=== PATIENT | female | born 1960 | race Caucasian/White ===

== ENCOUNTER 2020-10-07 22:00 | Inpatient (IN) | payer MEDICARE, SELFPAY ==
--- NOTE | ~2020-10-07 | XR_ITS ---
EXAMINATION: XR ribs LT 2V DATE: 10/10/2020 10:09 INDICATION: Left rib pain. TECHNIQUE: 3 views of the left ribs on 6 radiographs were obtained. COMPARISON: Chest single view 10/07/2020, chest 2 views 06/23/2019 FINDINGS: Sensitivity is decreased by obesity. There is no left-sided pneumothorax. No left rib fract ure. IMPRESSION: 1. No left rib fracture. Sensitivity is decreased by obesity. Reviewed, dictated and finalized at location A. EL HAND
--- NOTE | ~2020-10-07 | XR_ITS ---
XR chest 1V portable DATE: 10/07/2020 23:03 INDICATION: Shortness of breath and cough for 2 days TECHNIQUE: Portable AP chest on 10/07/2020 2302 hours COMPARISON: 06/23/2019 portable AP chest FINDINGS: Examination is limited due to body habitus, portable technique and rotation. There is cardiomegaly. There is pulmonary vascular congestion and redistribution. The minor fissure a ppears prominent. Presently central pulmonary infiltrates, right greater than left, suggesting pulmon valentin edema. The findings suggest congestive heart failure. Osteoarthritic changes noted at the glenohumeral joints. IMPRESSION: Congestive heart failure Reviewed, dictated and finalized at location A. FARM HELPER IMPRESSION: Congestive heart failure
[2020-10-07 22:20] VITALS: BP 140/60; PULSE 67; RESP 18; O2SAT 96
--- NOTE | 2020-10-07 22:26 | ECG_ITS ---
Measurements Intervals [place] Rate: 72 P: AL: 0 QRS: 43 QRSD: 104 T: 50 QT: 388 QTc: 427 Interpretive Statements ATRIAL FIBRILLATION CHANGES TO SINUS RHYTHM ATRIAL PREMATURE COMPLEX INCOMPLETE RIGHT BUNDLE BRANCH BLOCK BASELINE ARTIFACT- I, II, III, AVF ABNORMAL ECG Electronically Signed On 10-08-2020 6:29:00 ASSISTANT PROFESSOR OF EDUCATION by Simon Lozano D.O.
[2020-10-07 22:42] VITALS: PULSE 74; RESP 18; O2SAT 100
[2020-10-07] MEDS: IPRATROPIUM 0.5 MG/ALBUTEROL SULFATE 2.5 MG AMPUL.NEB 3 ML INHALATION (22:47)
[2020-10-07 22:53] VITALS: PULSE 73; RESP 18; O2SAT 100
[2020-10-07 22:56] VITALS: BP 150/65; PULSE 68; RESP 20; O2SAT 96
[2020-10-07] MEDS: methylPREDNISolone SOD SUCC 125 MG VIAL IV PUSH (22:58)
[2020-10-07 23:10] LABS: Base Excess ABG 2.5 mmol/L (0-2); HCO3 ABG 28.2 mmol/L (23-29); Oxygen Content ABG 13.2 %vol (16.0-22.0); Oxyhemoglobin 93.9 % (94-100); PCO2 ABG 49.5 mmHg (35-45); PO2 ABG 85.2 mmHg (80-90); Total Hemoglobin 9.9 g/dL; pH ABG 7.37 (7.35-7.45)
[2020-10-07 23:16] LABS: Basophils Absolute Auto 0.01 K/mm3 (0.00-0.10); Basophils Percent Auto 0.2 % (0.0-1.0); Hematocrit 30.3 % (35.0-49.0); Hemoglobin 8.9 g/dL (12.0-15.0); Immature Granulocyte Absolute 0.03 K/mm3 (0.00-0.00); Immature Granulocyte Percent A 0.5 % (0.0-0.0); Lymphocytes Absolute Auto 0.31 K/mm3 (1.10-4.50); Lymphocytes Percent Auto 4.8 % (18.0-42.0); Mean Corpuscular HGB Conc 29.4 g/dL (32.0-36.0); Mean Corpuscular Hemoglobin 25.4 pg (27.0-31.0); Mean Corpuscular Volume 86.3 fL (78.0-102.0); Mean Platelet Volume 10.9 fl (9.2-11.8); Monocytes Absolute Auto 0.34 K/mm3 (0.10-0.90); Monocytes Percent Auto 5.3 % (2.0-11.0); Neutrophils Absolute Auto 5.7 K/mm3 (1.7-7.2); Neutrophils Percent Auto 89.2 % (50.0-70.0); Platelet Count Result 158 K/mm3 (150-420); Red Blood Count 3.51 M/mm3 (4.20-5.40); Red Cell Distribution Width 14.7 % (11.6-14.4); White Blood Count 6.4 K/mm3 (4.8-10.8)
[2020-10-07 23:26] LABS: Device NASAL CANNULA; Modified Allen's Test Pass; Site Drawn RIGHT RADIAL
[2020-10-07 23:31] LABS: D Dimer 0.49 mg/L (0.19-0.50); INR 0.9; Partial Thromboplastin Time 25.3 SEC (23.90-30.70); Prothrombin Time 10.3 Seconds (9.50-12.10)
[2020-10-07 23:33] LABS: Albumin Level 3.5 g/dL (3.4-5.0); Alkaline Phosphatase 102 U/L (46-116); Anion Gap 6 mmol/L (8-16); Aspartate Amino Transferase 11 U/L (15-37); Bilirubin,Total 0.3 mg/dL (0.00-1.00); Blood Urea Nitrogen 15 mg/dL (7-18); Calcium 8.1 mg/dL (8.5-10.1); Carbon Dioxide 33 mmol/L (21-32); Chloride 99 mmol/L (98-108); Estimated CRCL calculation 85 ml/min; Estimated Glomerular Filt Rate 38; Glucose 113 mg/dL (70-99); Osmolality Calculated 287 mOsm/kg (285-295); Potassium 3.6 mmol/L (3.5-5.1); Sodium 138 mmol/L (136-145); Total Protein 7.3 g/dL (6.4-8.2); Troponin I 14.4 ng/L (0.00-60.4)
[2020-10-07 23:36] LABS: BNP 91.4 pg/mL (0-100); Lactic Acid Reflex 0.4 mmol/L (0.4-2.0)
[2020-10-07 23:41] LABS: Influenza Control Valid (Valid); SARS-CoV-2 Ag Negative (Negative)
[2020-10-07 23:44] LABS: Alanine Aminotransferase < 6 U/L (14-59)
--- NOTE | 2020-10-07 23:56 | ED.SOB ---
HPI - SOB/Dyspnea General Chief Complaint: Shortness of Breath/Dyspnea Stated Complaint: AMB Source: patient and EMS Limitations: no limitations History of Present Illness HPI Narrative: this is a 60-year-old female presents with some shortness of breath over the last 4 days and worsening over the last 2 to 3 hours with a cough that is nonproductive, does have a history of COPD and history of some AFib. Patient is morbidly obese no sick contacts lives at home with her has chills no fevers. Currently have some some chest tightness with her shortness of breath with no radiation of her pain no nausea vomiting no abdominal pain no dysuria no headaches no blurry vision. MD elicited complaint: shortness of breath and cough Pertinent past history: COPD and congestive heart failure Onset (ago): hour(s) Context: anxiety Severity: moderate Exacerbating factors: nothing Relieving factors: oxygen Known history of: COPD Related Data Home Medications Medication Instructions Recorded Confirmed diltiazem HCl [DILT-XR] See Rx Instructions .ROUTE .COMPLEX 10/07/20 10/07/20 gabapentin [Neurontin] See Rx Instructions .ROUTE .COMPLEX 10/07/20 10/07/20 olanzapine [Zyprexa] 10 mg PO DAILY 10/07/20 10/07/20 oxcarbazepine [Trileptal] 150 mg PO DAILY 10/07/20 10/07/20 oxybutynin chloride [Ditropan XL] See Rx Instructions .ROUTE .COMPLEX 10/07/20 10/07/20 quetiapine [Seroquel] See Rx Instructions .ROUTE .COMPLEX 10/07/20 10/07/20 rivaroxaban [Xarelto] 10 mg PO DAILY 10/07/20 10/07/20 sertraline [Zoloft] 100 mg PO DAILY 10/07/20 10/07/20 trazodone See Rx Instructions .ROUTE .COMPLEX 10/07/20 10/07/20 Allergies Allergy/AdvReac Type Severity Reaction Status Date / Time No Known Allergies Allergy Verified 10/07/20 22:29 Review of Systems Review of Systems: All systems reviewed & are unremarkable except as noted in HPI and below PMFSH Past Medical History Medical History Afib COPD (chronic obstructive pulmonary disease) HTN (hypertension) Social History Social History Gender identity (if verbalized by the patient): Female Exam Const: General: no acute distress and alert Orientation/consciousness: patient oriented x3 HENMT: Head: normal to inspection Eyes: Conjunctivae: conjunctivae normal Pupils: Equal, round and reactive pupils present Neck: Neck: normal visual inspection, no lymphadenopathy and no meningeal signs Chest: Chest palpation & inspection: normal inspection of the chest Resp: Effort & Inspection: normal respiratory effort Auscultation: diminished lung sounds Cardio: Rate: regular rate Rhythm: regular rhythm GI: GI Palp: Yes Soft to palpation : General: Yes no CVA tenderness Back/Spine/Pelvis: Back: no CVA tenderness Skin: General skin exam: normal color Rashes: no rashes Neuro: General: patient oriented x3 and moves all extremities Extrem: General: normal to inspection and no pedal edema Psych: Mental Status: mental status grossly normal Course Course Emergency Course: patient breathing has improved with nebulizer treatment and IV steroids, reviewed the x-ray and lab findings with patient and will admit patient to the floor with telemetry. Vital Signs Vital signs: Vital Signs Pulse Rate 67 10/07/20 22:20 Respiratory Rate 18 10/07/20 22:20 Blood Pressure 140/60 10/07/20 22:20 Pulse Oximetry 96 10/07/20 22:20 Pulse Rate 68 10/07/20 22:56 Respiratory Rate 20 10/07/20 22:56 Blood Pressure 150/65 H 10/07/20 22:56 Pulse Oximetry 96 10/07/20 22:56 MDM - SOB/Dyspnea Lab Data Result diagrams: 10/07/20 23:11 10/07/20 23:11 Labs: Lab Results 10/07/20 10/07/20 10/07/20 Range/Units 23:11 23:11 23:11 WBC (4.8-10.8) K/mm3 RBC (4.20-5.40) M/mm3 Hgb (12.0-15.0) g/dL Hct (35.0-49.0) % MCV (78.0
[2020-10-08] VITALS (12 sets, daily range): BP systolic 134–167; BP diastolic 50–68; PULSE 60–88; RESP 16–22; TEMP 36–36.6; O2SAT 96–99; BMI 69.4
--- NOTE | 2020-10-08 00:43 | PC.NURSE ---
spouse notified of admission
--- NOTE | 2020-10-08 01:30 | ADMGEN ---
This patient, Cathy Greene, was admitted to 2nd Floor Room 227-2. Patient/family oriented to hospital policies and general routines including ID bracelet, bed and alarms, visiting hours, pain management, procedures, bathroom and other care routines, personal items, smoking policy, room service/diet, and visiting hours. Information on how to activate the Rapid Response Team has been discussed. Patient/Family are encouraged to report perceived risks to care and to ask questions if they do not understand what they are told or what they should do.
[2020-10-08] MEDS: IPRATROPIUM 0.5 MG/ALBUTEROL SULFATE 2.5 MG AMPUL.NEB 3 ML INHALATION (05:41)
[2020-10-08 05:52] LABS: Hematocrit 28.8 % (35.0-49.0); Hemoglobin 8.4 g/dL (12.0-15.0); Immature Granulocyte Absolute 0.02 K/mm3 (0.00-0.00); Immature Granulocyte Percent A 0.4 % (0.0-0.0); Lymphocytes Absolute Auto 0.17 K/mm3 (1.10-4.50); Mean Corpuscular HGB Conc 29.2 g/dL (32.0-36.0); Mean Corpuscular Hemoglobin 24.8 pg (27.0-31.0); Mean Platelet Volume 10.6 fl (9.2-11.8); Monocytes Absolute Auto 0.03 K/mm3 (0.10-0.90); Monocytes Percent Auto 0.5 % (2.0-11.0); Neutrophils Absolute Auto 5.4 K/mm3 (1.7-7.2); Neutrophils Percent Auto 96.1 % (50.0-70.0); Platelet Count Result 143 K/mm3 (150-420); Red Blood Count 3.39 M/mm3 (4.20-5.40); Red Cell Distribution Width 14.4 % (11.6-14.4); White Blood Count 5.6 K/mm3 (4.8-10.8)
[2020-10-08] MEDS: methylPREDNISolone SOD SUCC 40 MG VIAL IV PUSH ×3 (06:07→18:33)
--- NOTE | 2020-10-08 06:08 | PC.NURSE ---
Given arlette crackers and milk
[2020-10-08 06:10] LABS: Alanine Aminotransferase 10 U/L (14-59); Albumin Level 3.3 g/dL (3.4-5.0); Alkaline Phosphatase 100 U/L (46-116); Anion Gap 8 mmol/L (8-16); Aspartate Amino Transferase < 10 U/L (15-37); Bilirubin,Total 0.2 mg/dL (0.00-1.00); Blood Urea Nitrogen 16 mg/dL (7-18); Calcium 8.3 mg/dL (8.5-10.1); Carbon Dioxide 30 mmol/L (21-32); Chloride 100 mmol/L (98-108); Estimated CRCL calculation 77 ml/min; Estimated Glomerular Filt Rate 43; Glucose 163 mg/dL (70-99); Osmolality Calculated 291 mOsm/kg (285-295); Potassium 4.1 mmol/L (3.5-5.1); Sodium 138 mmol/L (136-145); Total Protein 7.1 g/dL (6.4-8.2)
--- NOTE | 2020-10-08 07:00 | ECHOL_ITS ---
Patient Info Name: Cathy Greene Age: 60 years : 1960 Gender: Female Ht: 67 in Wt: 443 lbs BSA: 3.22 m2 HR: 69 bpm BP: 148 / 60 mmHg Technical Quality: Poor Exam Date: 10/08/2020 1:42 PM Exam Location: [facility] Patient Status: Inpatient Admit Date: 10/08/2020 Staff Ordering Physician: Anastacio Amin MD Extrusion Manager: Alaina Caballero RDCS Attending Provider: Anastacio Amin MD Referring Physician: Brennan LOCKE; Exam Type: CA echo limited Study Info Indications I50.9 - Heart failure, unspecified Limited two-dimensional transthoracic echocardiogram is performed. Reason for Poor Study: patient body habitus History/Risk Factors Hypertension: Yes Obesity: Yes Congestive Heart Failure (CHF): Hx CHF Diabetes Mellitus: No COPD: On Meds Tobacco Use: Current - Every Day If Any Current, Tobacco Type: Cigarettes If Current - Every Day \T\ Cigarettes, Amount: Light Tobacco Use (<10/day) DVT Treatment: Rivaroxaban Deep Vein Thrombosis (DVT): None Summary 1. No subcostal images as patient was uncooperative and due to body habitus. 2. Left ventricular chamber dimension is normal. 3. Left ventricular systolic function is normal, estimated at 60-65%. 4. There is mildly increased left ventricular wall thickness. 5. The left ventricular diastolic function is abnormal. 6. E/e' 10 is mildly elevated. 7. Left atrial chamber dimension is moderately enlarged. Recommendations * Smoking cessation counseling is recommended for this patient. Left Ventricle No subcostal images as patient was uncooperative and due to body habitus. E/e' 10 is mildly elevated. Left ventricular chamber dimension is normal. Left ventricular systolic function is normal, estimated at 60-65%. There is mildly increased left ventricular wall thickness. The left ventricular diastolic function is abnormal. Right Ventricle Right ventricular chamber dimension is normal. Right ventricular systolic function is normal. Left Atria Left atrial chamber dimension is moderately enlarged. Right Atria Right atrial chamber dimension is normal. Aortic Valve The aortic valve is trileaflet. There is no aortic valve stenosis. There is no aortic valve regurgitation. Pulmonic Valve There is no pulmonic regurgitation. Mitral Valve There is no mitral valve stenosis. There is no mitral valve regurgitation. Tricuspid Valve There is no tricuspid valve regurgitation. Pericardium/Pleural There is no pericardial effusion. Inferior Vena Cava Inferior vena cava is not well visualized. Aorta The aortic root size at the sinus of Valsalva is normal. Left Ventricular Outflow Tract Name Value Normal LVOT 2D LVOT Diameter 2.0 cm LVOT Doppler LVOT Peak Velocity 144 cm/s LVOT Peak Gradient 8 mmHg LVOT Mean Gradient 5 mmHg LVOT VTI 29 cm LVOT VTI/AV VTI Ratio 1.0 LVOT Stroke Volume 92 ml Mitral Valve
[2020-10-08] MEDS: GABAPENTIN 300 MG CAPSULE PO ×3 (09:25→18:33)
[2020-10-08] MEDS: SERTRALINE HCL 50 MG TABLET 100 MG PO (09:26)
[2020-10-08] MEDS: OXcarbazepine 300 MG TABLET 150 MG PO (09:26)
[2020-10-08] MEDS: RIVAROXABAN 10 MG TABLET PO (09:26)
[2020-10-08] MEDS: dilTIAZem HCL CD 180 MG CAP.ER.24H BY MOUTH (09:26)
--- NOTE | 2020-10-08 11:03 | PC.NURSE ---
Message left with Cresencio Wound Care nurse regarding wound care consultation.
--- NOTE | 2020-10-08 12:03 | PM.IMHP ---
H&P: HPI History of Present Illness Date/Time: 10/08/20 12:03 Chief Complaint: Shortness of breath Narrative: Cathy Greene is a 60 year old female that presented to the ED with complaints of shortness of breath and chest tightness that she has had for approximately 1 week. Patient has a past medical history of A. fib, COPD and hypertension. Patient noted that she was at home she attempted to use her inhalers which did not improve her condition. She also complained of having diarrhea, headache and rib pain while at home. she is a current smoker. She also complains of nonproductive cough. Patient also has an ulcer to her abdominal pannis . According to patient she has had this ulcer for approximately 1 year. She notes that she would need an panniculectomy in order for the ulcer to heal. Patient also arrived to our facility with head lice, bedbugs and old feces to her feet. Patient noted that she has attempted to remove the bedbugs from her at home with pesticide from store which was unsuccessful. Patient also has a history of suicidal attempt and ideations. Back in 2018 patient attempted to commit suicide by taking multiple medication. Today patient denies any suicidal homicidal ideations auditory or visual hallucinations. Today patient's complaints are she is fatigued, headache and continues to have shortness of breath. The patient denies CP, palpitation, extremity numbness, lightheadedness, dizziness, constipation, diarrhea, chills, or fever. Review of Systems Review of Systems: All systems reviewed & are unremarkable except as noted in HPI and below (10 point system review) [facility] Past Medical History Medical History (Updated 10/08/20 @ 12:31 by CECILY Jensen) Afib COPD (chronic obstructive pulmonary disease) HTN (hypertension) Social History Social History Smoking packs per day: 0.5 Smoking cigarettes per day: 10.0 Years smoked: 10 Smoking pack-years: 5.00 Smoking status: Light tobacco smoker Tobacco type: cigarettes Alcohol intake: never Substance use: former Substance use type: marijuana Gender identity (if verbalized by the patient): Female Sexual Orientation (if Verbalized by the Patient): Straight or Heterosexual Spiritual care concerns: No Meds Home Medications and Allergies Home Medications Medication Instructions Recorded Confirmed Type diltiazem HCl [DILT-XR] See Rx Instructions .ROUTE .COMPLEX 10/07/20 10/07/20 History gabapentin [Neurontin] See Rx Instructions .ROUTE .COMPLEX 10/07/20 10/07/20 History olanzapine [Zyprexa] 10 mg PO DAILY 10/07/20 10/07/20 History oxcarbazepine [Trileptal] 150 mg PO DAILY 10/07/20 10/07/20 History oxybutynin chloride [Ditropan XL] See Rx Instructions .ROUTE .COMPLEX 10/07/20 10/07/20 History quetiapine [Seroquel] See Rx Instructions .ROUTE .COMPLEX 10/07/20 10/07/20 History rivaroxaban [Xarelto] 10 mg PO DAILY 10/07/20 10/07/20 History sertraline [Zoloft] 100 mg PO DAILY 10/07/20 10/07/20 History trazodone See Rx Instructions .ROUTE .COMPLEX 10/07/20 10/07/20 History Allergies Allergy/AdvReac Type Severity Reaction Status Date / Time No Known Allergies Allergy Verified 10/07/20 22:29 Vital Signs Vital Signs - 24 hr 10/07/20 22:20 10/07/20 22:42 10/07/20 22:53 Temperature Pulse Rate 67 74 73 Respiratory Rate 18 18 18 Blood Pressure 140/60 Pulse Oximetry 96 100 100 10/07/20 22:56 10/08/20 01:30 10/08/20 01:42 Temperature 98 F Pulse Rate 68 69 88 Respiratory Rate 20 20 16 Blood Pressure 150/65 H 134/60 Pulse Oximetry 96 97 98 10/08/20 03:45 10/08/20 04:00 10/08/20 05:35 Temperature 97.8 F Pulse Rate 69 68 60 Respiratory Rate 20 20 Blood Pressure 148/60 H Pulse Oximetry 98 96 10/08/20 05:51 10/08/20 07:45 Temperature 97.1 F L Pulse Rate 64 65 Respiratory Rate 20 22 H Blood Pressure 167/68 H Pulse Oximetry 99 97 Exam Narr
[2020-10-08] MEDS: amLODIPine BESYLATE 5 MG TABLET PO (14:53)
[2020-10-08] MEDS: BENZONATATE 100 MG CAPSULE 200 MG PO ×2 (14:53→18:33)
[2020-10-08] MEDS: ALBUTEROL SULFATE (*SP) INHALER 2 PUFF INHALATION ×2 (14:54→20:01)
[2020-10-08] MEDS: ACETAMINOPHEN 325 MG TABLET 650 MG PO (17:09)
[2020-10-08] MEDS: MUPIROCIN 2% OINT 22 GM TUBE 1 APPLIC TOPICAL (18:33)
[2020-10-08] MEDS: BUDESONIDE/FORMOTEROL (*SP) 160-4.5 MCG 6 GM INH 2 PUFF INHALATION (18:33)
[2020-10-08] MEDS: TOLNAFTATE 1% POWDER 45 GM BTL 1 APPLIC TOPICAL (18:33)
[2020-10-08] MEDS: HYDROcodone/acetaminophen (*CRX) 5-325 MG TABLET 1 TAB PO (19:46)
[2020-10-08] MEDS: traZODone HCL 50 MG TABLET PO (20:55)
[2020-10-08] MEDS: QUEtiapine FUMARATE 25 MG TABLET PO (20:55)
[2020-10-09] VITALS: BP 148/65; PULSE 74; RESP 20; TEMP 36.6; O2SAT 96
[2020-10-09] MEDS: methylPREDNISolone SOD SUCC 40 MG VIAL IV PUSH ×2 (00:02→05:53)
[2020-10-09 04:00] VITALS: BP 154/75; PULSE 80; RESP 22; TEMP 36.1; O2SAT 97
[2020-10-09] MEDS: BENZONATATE 100 MG CAPSULE 200 MG PO ×3 (04:38→17:03)
[2020-10-09 05:46] LABS: Hematocrit 29.6 % (35.0-49.0); Hemoglobin 8.5 g/dL (12.0-15.0); Immature Platelet Fraction Pct 3.2 % (1.0-7.0); Mean Corpuscular HGB Conc 28.7 g/dL (32.0-36.0); Mean Corpuscular Hemoglobin 25.1 pg (27.0-31.0); Mean Corpuscular Volume 87.3 fL (78.0-102.0); Mean Platelet Volume 11.2 fl (9.2-11.8); Platelet Count Result 141 K/mm3 (150-420); Red Blood Count 3.39 M/mm3 (4.20-5.40); Red Cell Distribution Width 14.6 % (11.6-14.4); White Blood Count 6.5 K/mm3 (4.8-10.8)
[2020-10-09] MEDS: BUDESONIDE/FORMOTEROL (*SP) 160-4.5 MCG 6 GM INH 2 PUFF INHALATION ×2 (05:53→17:58)
[2020-10-09] MEDS: ALBUTEROL SULFATE (*SP) INHALER 2 PUFF INHALATION ×4 (05:53→20:00)
[2020-10-09 06:06] LABS: Alanine Aminotransferase 13 U/L (14-59); Albumin Level 3.4 g/dL (3.4-5.0); Alkaline Phosphatase 87 U/L (46-116); Anion Gap 3 mmol/L (8-16); Aspartate Amino Transferase < 10 U/L (15-37); Bilirubin,Total 0.2 mg/dL (0.00-1.00); Blood Urea Nitrogen 24 mg/dL (7-18); Calcium 8.4 mg/dL (8.5-10.1); Carbon Dioxide 34 mmol/L (21-32); Chloride 102 mmol/L (98-108); Estimated CRCL calculation 74 ml/min; Estimated Glomerular Filt Rate 41; Glucose 177 mg/dL (70-99); Osmolality Calculated 296 mOsm/kg (285-295); Potassium 4.5 mmol/L (3.5-5.1); Sodium 139 mmol/L (136-145); Total Protein 7.3 g/dL (6.4-8.2)
[2020-10-09 07:40] VITALS: BP 160/58; PULSE 75; RESP 20; TEMP 36.2; O2SAT 96
[2020-10-09] MEDS: GABAPENTIN 300 MG CAPSULE PO ×3 (09:10→17:03)
[2020-10-09] MEDS: SERTRALINE HCL 50 MG TABLET 100 MG PO (09:11)
[2020-10-09] MEDS: dilTIAZem HCL CD 180 MG CAP.ER.24H BY MOUTH (09:11)
[2020-10-09] MEDS: RIVAROXABAN 10 MG TABLET PO (09:11)
[2020-10-09] MEDS: amLODIPine BESYLATE 5 MG TABLET PO (09:12)
[2020-10-09] MEDS: MUPIROCIN 2% OINT 22 GM TUBE 1 APPLIC TOPICAL ×2 (09:13→17:04)
[2020-10-09] MEDS: NICOTINE (*PBKC) 21 MG PATCH 1 PATCH TRANSDERM (09:13)
[2020-10-09] MEDS: OXcarbazepine 300 MG TABLET 150 MG PO (09:13)
[2020-10-09] MEDS: TOLNAFTATE 1% POWDER 45 GM BTL 1 APPLIC TOPICAL ×2 (09:14→17:04)
--- NOTE | 2020-10-09 12:21 | P.PN_ITS ---
Progress Note: A&P Assessment and Plan (1) Acute exacerbation of chronic obstructive airways disease: Code(s): J44.1 - Chronic obstructive pulmonary disease with (acute) exacerbation <Damaris Navarro IAMJose Raul - Last Filed: 10/09/20 14:33> Status: Acute <Damaris Navarro IAMJose Raul - Last Filed: 10/09/20 14:33> Assessment and Plan: * Continue prednisone with inhalers * Continue supplementary oxygen as needed * Vital signs * Covid rapid negative send out pending <Damaris Navarro ZINC CHLORIDE OPERATORLakhwinderJose Raul - Last Filed: 10/09/20 14:33> (2) Afib: Code(s): I48.91 - Unspecified atrial fibrillation <Damaris Navarro IAMJose Raul - Last Filed: 10/09/20 14:33> Status: Acute <Damaris Navarro ZINC CHLORIDE OPERATORLakhwinderJose Raul - Last Filed: 10/09/20 14:33> Assessment and Plan: * Controlled * Continue Cardizem 180 mg daily * Continue Xarelto * Continue telemetry <Damaris Navarro CECILY - Last Filed: 10/09/20 14:33> (3) HTN (hypertension): Code(s): I10 - Essential (primary) hypertension <Damaris Navarro IAMJose Raul - Last Filed: 10/09/20 14:33> Status: Acute <Damaris Navarro CECILY - Last Filed: 10/09/20 14:33> Assessment and Plan: * Blood pressure remains elevated * Increased Norvasc 10 mg * Will adjust medication as needed * Vital signs as ordered <Damaris Navarro TRAEOwen - Last Filed: 10/09/20 14:33> (4) Head lice: Code(s): B85.0 - Pediculosis due to Pediculus humanus capitis <Damaris FloresBrayan Navarro ZINC CHLORIDE OPERATOR-C - Last Filed: 10/09/20 14:33> Status: Acute <Damaris Navarro ZINC CHLORIDE OPERATORLakhwinderJose Raul - Last Filed: 10/09/20 14:33> Assessment and Plan: * Will prescribe medication <Damaris FloresCECILY Barbosa - Last Filed: 10/09/20 14:33> (5) Bedbug bite: Code(s): W57.XXXA - Bitten or stung by nonvenomous insect and other nonvenomous arthropods, initial encounter <CECILY Jensen - Last Filed: 10/09/20 14:33> Status: Acute <CECILY Jensen - Last Filed: 10/09/20 14:33> Assessment and Plan: * Case coordination consulted for possible speech language pathology assistant with bedbugs and aging to part <CECILY Jensen - Last Filed: 10/09/20 14:33> (6) Nicotine dependence: Code(s): F17.200 - Nicotine dependence, unspecified, uncomplicated <CECILY Jensen - Last Filed: 10/09/20 14:33> Status: Acute <CECILY Jensen - Last Filed: 10/09/20 14:33> Assessment and Plan: * Ordered nicotine patch * Educated on smoking cessation <CECILY Jensen - Last Filed: 10/09/20 14:33> (7) COVID-19 ruled out: Code(s): Z20.822 - Contact with and (suspected) exposure to COVID-19 <CECILY Jensen - Last Filed: 10/09/20 14:33> Status: Acute <CECILY Jensen - Last Filed: 10/09/20 14:33> Assessment and Plan: * Rapid test negative * Collect a send out to rule out Covid * Remain quarantine until results are returned * Continue steroids <CECILY Jensen - Last Filed: 10/09/20 14:33> (8) Ulcer: Status: Acute <CECILY Jensen - Last Filed: 10/09/20 14:33> Assessment and Plan: * Consulted wound care * Dressing changes recommended by wound care <CECILY Jensen - Last Filed: 10/09/20 14:33> (9) New onset of congestive heart failure: Code(s): I50.9 - Heart failure, unspecified <CECILY Jensen - Last Filed: 10/09/20 14:33> Status: Acute <CECILY Jensen - Last Filed: 10/09/20 14:33> Assessment and Plan: . * C
--- NOTE | 2020-10-09 12:21 | WPDPN ---
Progress Note: A&P Assessment and Plan (1) Acute exacerbation of chronic obstructive airways disease: Code(s): J44.1 - Chronic obstructive pulmonary disease with (acute) exacerbation <Damaris Navarro CECILY - Last Filed: 10/09/20 14:33> Status: Acute <Damaris Navarro CECILY - Last Filed: 10/09/20 14:33> Assessment and Plan: Continue prednisone with inhalers Continue supplementary oxygen as needed Vital signs Covid rapid negative send out pending <Damaris Navarro CECILY - Last Filed: 10/09/20 14:33> (2) Afib: Code(s): I48.91 - Unspecified atrial fibrillation <Damaris Navarro CECILY - Last Filed: 10/09/20 14:33> Status: Acute <Damaris Navarro CECILY - Last Filed: 10/09/20 14:33> Assessment and Plan: Controlled Continue Cardizem 180 mg daily Continue Xarelto Continue telemetry <Damaris Navarro CECILY - Last Filed: 10/09/20 14:33> (3) HTN (hypertension): Code(s): I10 - Essential (primary) hypertension <Damaris Navarro CECILY - Last Filed: 10/09/20 14:33> Status: Acute <Damaris Navarro CECILY - Last Filed: 10/09/20 14:33> Assessment and Plan: Blood pressure remains elevated Increased Norvasc 10 mg Will adjust medication as needed Vital signs as ordered <Damaris Navarro CECILY - Last Filed: 10/09/20 14:33> (4) Head lice: Code(s): B85.0 - Pediculosis due to Pediculus humanus capitis <Damaris Navarro IAMJose Raul - Last Filed: 10/09/20 14:33> Status: Acute <Damaris Navarro CECILY - Last Filed: 10/09/20 14:33> Assessment and Plan: Will prescribe medication <Damaris FloresBrayan Ramon INFORMATION TECHNOLOGY SECURITY MANAGERLakhwinderJose Raul - Last Filed: 10/09/20 14:33> (5) Bedbug bite: Code(s): W57.XXXA - Bitten or stung by nonvenomous insect and other nonvenomous arthropods, initial encounter <CECILY Jensen - Last Filed: 10/09/20 14:33> Status: Acute <CECILY Jensen - Last Filed: 10/09/20 14:33> Assessment and Plan: Case coordination consulted for possible volleyball assistant coach with bedbugs and aging to part <CECILY Jensen - Last Filed: 10/09/20 14:33> (6) Nicotine dependence: Code(s): F17.200 - Nicotine dependence, unspecified, uncomplicated <CECILY Jensen - Last Filed: 10/09/20 14:33> Status: Acute <CECILY Jensen - Last Filed: 10/09/20 14:33> Assessment and Plan: Ordered nicotine patch Educated on smoking cessation <CECILY Jensen - Last Filed: 10/09/20 14:33> (7) COVID-19 ruled out: Code(s): Z20.822 - Contact with and (suspected) exposure to COVID-19 <CECILY Jensen - Last Filed: 10/09/20 14:33> Status: Acute <CECILY Jensen - Last Filed: 10/09/20 14:33> Assessment and Plan: Rapid test negative Collect a send out to rule out Covid Remain quarantine until results are returned Continue steroids <CECILY Jensen - Last Filed: 10/09/20 14:33> (8) Ulcer: Status: Acute <CECILY Jensen - Last Filed: 10/09/20 14:33> Assessment and Plan: Consulted wound care Dressing changes recommended by wound care <CECILY Jensen - Last Filed: 10/09/20 14:33> (9) New onset of congestive heart failure: Code(s): I50.9 - Heart failure, unspecified <CECILY Jensen - Last Filed: 10/09/20 14:33> Status: Acute <CECILY Jensen - Last Filed: 10/09/20 14:33> Assessment and Plan: . CHF indicates abnormal left ventricle diastolic function Will start patient on Lasix 20 daily loading dose of 40 BNP within normal Will weigh daily <CECILY Jensen - Last Filed: 10/09/20 14:33> Review of Systems Review of Systems: All systems reviewed & are unremarkable except as noted in HPI and below (10 point system review) <CECILY Jensen - [place]
[2020-10-09] MEDS: guaiFENesin/DEXTROMETHORPHAN 5 ML UDC PO ×2 (13:08→20:00)
[2020-10-09 13:10] VITALS: BP 166/62; PULSE 79; RESP 22; TEMP 36.2; O2SAT 97
[2020-10-09] MEDS: FUROSEMIDE INJ 40 MG/4 ML VIAL IV PUSH (13:12)
--- NOTE | 2020-10-09 13:32 | ECG_ITS ---
Measurements Intervals [place] Rate: 71 P: 84 [place]: 157 QRS: 60 QRSD: 105 T: 58 QT: 383 QTc: 419 Interpretive Statements SINUS RHYTHM INCOMPLETE RIGHT BUNDLE BRANCH BLOCK BORDERLINE ECG Electronically Signed On 10-09-2020 14:09:47 SENIOR ACCOUNT MANAGER by Simon Lozano D.O.
--- NOTE | 2020-10-09 13:59 | PCOTNOTE ---
OT attempted evaluation however nursing reports that patient is having chest pains. Will check in at a later time. MS
[2020-10-09 14:05] LABS: SARS-CoV-2 RNA PCR Negative
[2020-10-09] MEDS: HYDROcodone/acetaminophen (*CRX) 5-325 MG TABLET 1 TAB PO ×2 (14:26→22:57)
[2020-10-09] MEDS: PANTOPRAZOLE 40 MG TABLET PO (14:27)
[2020-10-09 14:29] LABS: Troponin I 16.4 ng/L (0.00-60.4)
[2020-10-09 16:00] VITALS: BP 157/69; PULSE 78; RESP 18; TEMP 36.9; O2SAT 97
[2020-10-09] MEDS: CYCLOBENZAPRINE HCL 10 MG TABLET PO (17:03)
[2020-10-09 20:00] VITALS: BP 132/59; PULSE 76; RESP 20; TEMP 36.8; O2SAT 97
[2020-10-09] MEDS: traZODone HCL 50 MG TABLET PO (20:00)
[2020-10-09] MEDS: QUEtiapine FUMARATE 25 MG TABLET PO (20:00)
[2020-10-10] VITALS: BP 124/56; PULSE 70; RESP 20; TEMP 36.7; O2SAT 97
[2020-10-10 04:00] VITALS: BP 138/79; PULSE 88; RESP 20; TEMP 36.2; O2SAT 96
[2020-10-10] MEDS: CYCLOBENZAPRINE HCL 10 MG TABLET PO ×2 (04:46→13:58)
[2020-10-10] MEDS: HYDROcodone/acetaminophen (*CRX) 5-325 MG TABLET 1 TAB PO ×2 (05:30→13:58)
[2020-10-10] MEDS: BUDESONIDE/FORMOTEROL (*SP) 160-4.5 MCG 6 GM INH 2 PUFF INHALATION (05:47)
[2020-10-10] MEDS: ALBUTEROL SULFATE (*SP) INHALER 2 PUFF INHALATION ×3 (05:48→14:30)
[2020-10-10 05:49] LABS: Hematocrit 30.9 % (35.0-49.0); Hemoglobin 8.9 g/dL (12.0-15.0); Mean Corpuscular HGB Conc 28.8 g/dL (32.0-36.0); Mean Corpuscular Hemoglobin 25.6 pg (27.0-31.0); Mean Corpuscular Volume 88.8 fL (78.0-102.0); Mean Platelet Volume 10.2 fl (9.2-11.8); Platelet Count Result 141 K/mm3 (150-420); Red Blood Count 3.48 M/mm3 (4.20-5.40); Red Cell Distribution Width 14.8 % (11.6-14.4); White Blood Count 6.9 K/mm3 (4.8-10.8)
[2020-10-10 06:04] LABS: Alanine Aminotransferase 12 U/L (14-59); Albumin Level 3.3 g/dL (3.4-5.0); Alkaline Phosphatase 90 U/L (46-116); Anion Gap 3 mmol/L (8-16); Aspartate Amino Transferase < 10 U/L (15-37); Bilirubin,Total 0.2 mg/dL (0.00-1.00); Blood Urea Nitrogen 37 mg/dL (7-18); Calcium 8.2 mg/dL (8.5-10.1); Carbon Dioxide 34 mmol/L (21-32); Chloride 102 mmol/L (98-108); Estimated CRCL calculation 64 ml/min; Estimated Glomerular Filt Rate 34; Glucose 130 mg/dL (70-99); Osmolality Calculated 298 mOsm/kg (285-295); Potassium 3.9 mmol/L (3.5-5.1); Sodium 139 mmol/L (136-145); Total Protein 6.7 g/dL (6.4-8.2)
[2020-10-10 07:35] VITALS: BP 131/53; PULSE 86; PULSE 88; RESP 18; TEMP 36.5; O2SAT 96
[2020-10-10] MEDS: GABAPENTIN 300 MG CAPSULE PO ×2 (08:43→12:53)
[2020-10-10] MEDS: predniSONE 20 MG TABLET 40 MG PO (08:43)
[2020-10-10] MEDS: POTASSIUM CHLORIDE 20 MEQ TABLET PO (08:43)
[2020-10-10] MEDS: FUROSEMIDE 20 MG TABLET PO (08:44)
[2020-10-10] MEDS: RIVAROXABAN 10 MG TABLET PO (08:44)
[2020-10-10] MEDS: PANTOPRAZOLE SOD SESQUIHYDRATE 20 MG TAB PO (08:44)
[2020-10-10] MEDS: SERTRALINE HCL 50 MG TABLET 100 MG PO (08:44)
[2020-10-10] MEDS: dilTIAZem HCL CD 180 MG CAP.ER.24H BY MOUTH (08:44)
[2020-10-10] MEDS: amLODIPine BESYLATE 5 MG TABLET 10 MG PO (08:44)
[2020-10-10] MEDS: BENZONATATE 100 MG CAPSULE 200 MG PO ×2 (08:45→12:53)
[2020-10-10] MEDS: NICOTINE (*PBKC) 21 MG PATCH 1 PATCH TRANSDERM (08:45)
[2020-10-10] MEDS: MUPIROCIN 2% OINT 22 GM TUBE 1 APPLIC TOPICAL (08:45)
[2020-10-10] MEDS: OXcarbazepine 300 MG TABLET 150 MG PO (08:46)
[2020-10-10] MEDS: TOLNAFTATE 1% POWDER 45 GM BTL 1 APPLIC TOPICAL (08:46)
[2020-10-10 12:00] VITALS: BP 139/61; PULSE 100; PULSE 86; RESP 20; TEMP 36.8; O2SAT 98
--- NOTE | 2020-10-10 13:48 | P.DS_ITS ---
DS: Admitting Diagnosis Admitting Diagnosis Admitting Diagnosis: Shortness of breath DS: Discharge Diagnosis Discharge Diagnosis (1) Acute exacerbation of chronic obstructive airways disease: Code(s): J44.1 - Chronic obstructive pulmonary disease with (acute) exacerbation Status: Acute Assessment and Plan: * Continue prednisone with inhalers * Continue supplementary oxygen as needed * Vital signs * Covid rapid negative send out negative (2) Afib: Code(s): I48.91 - Unspecified atrial fibrillation Status: Acute Assessment and Plan: * Controlled * Continue Cardizem 180 mg daily * Continue Xarelto * (3) HTN (hypertension): Code(s): I10 - Essential (primary) hypertension Status: Acute Assessment and Plan: * Blood pressure remains improved * Increased Norvasc 10 mg * (4) Head lice: Code(s): B85.0 - Pediculosis due to Pediculus humanus capitis Status: Acute Assessment and Plan: * Patient received prescription medication, no lice identified today (5) Bedbug bite: Code(s): W57.XXXA - Bitten or stung by nonvenomous insect and other nonvenomous arthropods, initial encounter Status: Acute Assessment and Plan: * Patient bathed from head to toe, contaminated linen and clothes removed and patient moved to clean room (6) Nicotine dependence: Code(s): F17.200 - Nicotine dependence, unspecified, uncomplicated Status: Acute Assessment and Plan: * Ordered nicotine patch * Educated on smoking cessation (7) COVID-19 ruled out: Code(s): Z20.822 - Contact with and (suspected) exposure to COVID-19 Status: Acute Assessment and Plan: * Patient negative for Covid * Rapid test negative * Send out negative * Continue steroids (8) Ulcer: Status: Acute Assessment and Plan: * Consulted wound care * Dressing changes recommended by wound care (9) New onset of congestive heart failure: Code(s): I50.9 - Heart failure, unspecified Status: Acute Assessment and Plan: . * CHF indicates abnormal left ventricle diastolic function * Will start patient on Lasix 10 daily loading dose of 40 * BNP within normal * Daily weigh daily review (10) Rib pain: Code(s): R07.81 - Pleurodynia Status: Acute Assessment and Plan: * Possibly secondary to excessive coughing * X-ray does not indicate fracture * Continue pain medication and Flexeril DS: Summary Hospital Course Reason for hospitalization: Shortness of breath Hospital Course: Cathy Greene is a 60 year old female that presented to the ED with complaints of shortness of breath and chest tightness that she had had for approximately 1 week. Patient has a past medical history of A. fib, COPD and hypertension. Patient noted that while she was at home she attempted to use her inhalers which did not improve her SOB. She also complained of having diarrhea, headache and rib pain while at home. she is a current smoker. She also complained of nonproductive cough. Patient also has an ulcer to her abdominal pannis . According to patient she has had this ulcer for approximately 1 year. She notes that she would need an panniculectomy in order for the ulcer to heal. Patient also arrived to our facility with head lice, bedbugs and old feces to her feet. Patient noted that she has attempted to remove the bedbugs from her at home with pesticide from store which was unsuccessful. Patient also has a history of suicidal attempt and ideations. Back in
--- NOTE | 2020-10-10 13:48 | PM.DS ---
DS: Admitting Diagnosis Admitting Diagnosis Admitting Diagnosis: Shortness of breath DS: Discharge Diagnosis Discharge Diagnosis (1) Acute exacerbation of chronic obstructive airways disease: Code(s): J44.1 - Chronic obstructive pulmonary disease with (acute) exacerbation Status: Acute Assessment and Plan: Continue prednisone with inhalers Continue supplementary oxygen as needed Vital signs Covid rapid negative send out negative (2) Afib: Code(s): I48.91 - Unspecified atrial fibrillation Status: Acute Assessment and Plan: Controlled Continue Cardizem 180 mg daily Continue Xarelto (3) HTN (hypertension): Code(s): I10 - Essential (primary) hypertension Status: Acute Assessment and Plan: Blood pressure remains improved Increased Norvasc 10 mg (4) Head lice: Code(s): B85.0 - Pediculosis due to Pediculus humanus capitis Status: Acute Assessment and Plan: Patient received prescription medication, no lice identified today (5) Bedbug bite: Code(s): W57.XXXA - Bitten or stung by nonvenomous insect and other nonvenomous arthropods, initial encounter Status: Acute Assessment and Plan: Patient bathed from head to toe, contaminated linen and clothes removed and patient moved to clean room (6) Nicotine dependence: Code(s): F17.200 - Nicotine dependence, unspecified, uncomplicated Status: Acute Assessment and Plan: Ordered nicotine patch Educated on smoking cessation (7) COVID-19 ruled out: Code(s): Z20.822 - Contact with and (suspected) exposure to COVID-19 Status: Acute Assessment and Plan: Patient negative for Covid Rapid test negative Send out negative Continue steroids (8) Ulcer: Status: Acute Assessment and Plan: Consulted wound care Dressing changes recommended by wound care (9) New onset of congestive heart failure: Code(s): I50.9 - Heart failure, unspecified Status: Acute Assessment and Plan: . CHF indicates abnormal left ventricle diastolic function Will start patient on Lasix 10 daily loading dose of 40 BNP within normal Daily weigh daily review (10) Rib pain: Code(s): R07.81 - Pleurodynia Status: Acute Assessment and Plan: Possibly secondary to excessive coughing X-ray does not indicate fracture Continue pain medication and Flexeril DS: Summary Hospital Course Reason for hospitalization: Shortness of breath Hospital Course: Cathy Greene is a 60 year old female that presented to the ED with complaints of shortness of breath and chest tightness that she had had for approximately 1 week. Patient has a past medical history of A. fib, COPD and hypertension. Patient noted that while she was at home she attempted to use her inhalers which did not improve her SOB. She also complained of having diarrhea, headache and rib pain while at home. she is a current smoker. She also complained of nonproductive cough. Patient also has an ulcer to her abdominal pannis . According to patient she has had this ulcer for approximately 1 year. She notes that she would need an panniculectomy in order for the ulcer to heal. Patient also arrived to our facility with head lice, bedbugs and old feces to her feet. Patient noted that she has attempted to remove the bedbugs from her at home with pesticide from store which was unsuccessful. Patient also has a history of suicidal attempt and ideations. Back in 2018 patient attempted to commit suicide by taking multiple medication. patient denies any suicidal homicidal ideations auditory or visual hallucinations this stay. This day of discharge patient complains of left knee pain possibly caused the x-ray does not indicate a fracture. Patient head has been inspected for lice none detected. Patient will also be bathed from head to toe placed on plain close and removed remove h
--- NOTE | 2020-10-14 13:09 | PC.NURSE ---
Unable to contact for discharge call back.
== END 2020-10-10 16:25 | disposition home or self-care (01) | DRG 190 ==
LOC: CHSED 10-08 00:03 → CHS2ND 10-08 07:29
PROVIDERS: Nurse Practitioner; Admitting Provider Emergency Medicine; Emergency Provider Emergency Medicine; Visit Provider Emergency Medicine
DX: J44.1 Chronic obstructive pulmonary disease with (acute) exacerbation (principal); L89.893 Pressure ulcer of other site, stage 3; I48.20 Chronic atrial fibrillation, unspecified; I11.0 Hypertensive heart disease with heart failure; I50.9 Heart failure, unspecified; R07.81 Pleurodynia; M25.562 Pain in left knee; F17.210 Nicotine dependence, cigarettes, uncomplicated; B85.0 Pediculosis due to Pediculus humanus capitis; Z20.822 Contact with and (suspected) exposure to COVID-19; T14.8XXA Other injury of unspecified body region, initial encounter; W57.XXXA Bitten or stung by nonvenomous insect and other nonvenomous arthropods, initial encounter
CPT/HCPCS: 36415; 36600; 71045; 71100; 80053; 82805; 83605; 83735; 83880; 84484; 85025; 85027; 85055; 85380; 85610; 85730; 87040; 87426; 87804; 93005; 93308; 94640; 96374; 97162; 97530; 99285; A9270; C9803; J1940; J2920; J2930; J7512; U0003; U0005

== ENCOUNTER 2021-06-30 13:16 | Inpatient (IN) | payer MEDICARE, MEDICAID, SELFPAY ==
[2021-06-30] VITALS (7 sets, daily range): BP systolic 128–151; BP diastolic 43–90; PULSE 51–80; RESP 10–24; TEMP 36.4–36.8; O2SAT 97–100; BMI 72.0; BMI 72.9
--- NOTE | ~2021-06-30 | XR_ITS ---
EXAMINATION: XR chest 1V portable DATE: 07/02/2021 12:44 INDICATION: Congestive heart failure. TECHNIQUE: A single frontal view of the chest was obtained. COMPARISON: Chest single view at 5:27 AM FINDINGS: The patient is rotated to her left. Sensitivity sensitivity is decreased by obesity. There are airspace opacities in the perihilar regions and at left lung base. There is opacification of left lateral costophrenic angle angle. No pneumothorax. Cardiomegaly is noted. IMPRESSION: 1. Airspace opacities in the perihilar regions and at left lung base with interval improvement, which may be atelectasis and mild pulmonary edema. Pneumonia cannot be excluded. 2. Opacification of left lateral costophrenic angle, which may be a small pleural effusion or promine nt fat pad. 3. Cardiomegaly. Reviewed, dictated and finalized at location A. IMPRESSION: 1. Airspace opacities in the perihilar regions and at left lung base with inter starr improvement, which may be atelectasis and mild pulmonary edema. Pneumonia c annot be excluded. 2. Opacification of left lateral costophrenic angle, which may be a small pleur al effusion or prominent fat pad. 3. Cardiomegaly.
--- NOTE | ~2021-06-30 | XR_ITS ---
EXAMINATION: XR chest 1V portable DATE: 07/02/2021 05:44 INDICATION: Congestive heart failure. TECHNIQUE: A single frontal view of the chest was obtained. COMPARISON: Chest single view 07/01/2021 FINDINGS: Sensitivity is decreased by obesity. The patient is rotated to her left. There are airspace opacities in all lung zones bilaterally. There are small pleural effusions. No pneumothorax. Calcifi ed right hilar lymph nodes are consistent with old granulomatous disease. Cardiomegaly is noted. IMPRESSION: 1. Worsened diffuse lung disease, consistent with pulmonary edema versus pneumonia. 2. Small pleural effusions. 3. Cardiomegaly. Reviewed, dictated and finalized at location A. IMPRESSION: 1. Worsened diffuse lung disease, consistent with pulmonary edema versus pneumo roosevelt. 2. Small pleural effusions. 3. Cardiomegaly.
--- NOTE | ~2021-06-30 | XR_ITS ---
XR chest 2V 06/30/2021 14:04 Indication: Shortness of breath. CHF. Procedure: AP and lateral views of the chest Comparison: 06/23/2019 Findings: Study is rotated. There is diffuse bilateral airspace disease, most likely edema. Small ple ural effusions. Heart size difficult to evaluate. No acute osseous abnormality. There are degenerativ e changes of the glenohumeral joints. Impression: 1: Diffuse bilateral airspace disease, likely edema. 2: Small pleural effusions. Reviewed, dictated and finalized at location B. Impression: 1: Diffuse bilateral airspace disease, likely edema. 2: Small pleural effusions.
--- NOTE | ~2021-06-30 | XR_ITS ---
XR chest 1V portable 07/01/2021 09:18 Indication: Respiratory failure Procedure: AP portable chest Comparison: Comparison to multiple prior studies sequentially, with oldest reviewed study dated 06/13. Findings: Cardiomegaly with interstitial edema. Possible small left effusion. No pneumothorax. No acu te osseous abnormality Impression: 1: Cardiomegaly with interstitial edema. Cannot exclude underlying pneumonia. Reviewed, dictated and finalized at location B. Impression: 1: Cardiomegaly with interstitial edema. Cannot exclude underlying pneumonia.
--- NOTE | 2021-06-30 13:36 | ECG_ITS ---
Measurements Intervals [place] Rate: 51 P: 60 [place]: 184 QRS: 53 QRSD: 103 T: 68 QT: 470 QTc: 435 Interpretive Statements SINUS BRADYCARDIA LOW QRS VOLTAGE IN PRECORDIAL LEADS BORDERLINE ECG Electronically Signed On 06-30-2021 14:35:22 CDT by Simon Lozano D.O.
--- NOTE | 2021-06-30 13:57 | ED.SOB ---
HPI - SOB/Dyspnea General Chief Complaint: Shortness of Breath/Dyspnea Stated Complaint: SOB Time Seen by Provider: 06/30/21 13:54 Source: patient, EMS and RN notes reviewed Mode of arrival: EMS Limitations: no limitations History of Present Illness HPI Narrative: Patient is 61 years old white female came to the emergency room from long term because of shortness of breath last night. Patient been to the long term for the last 2 days, the nasal cannula kept falling off the wall all night long,, patient on chronic 3 L nasal cannula. Patient denies any questions about BiPAP. Patient had BiPAP while was in the hospital weeks ago for pneumonia, got discharged on April 25, never had BiPAP since.. Patient denies any fever, chills, nausea, vomiting, chest pain, back pain. Patient had history of fracture in lower extremities secondary to seizure on December 2020. Currently patient main complaint is pain of the lower extremity, patient currently on [place]. Patient also on Eliquis for pulmonary embolism and atrial fibrillation. Patient was planning to stay in long term for 2 weeks to regain her strength. Related Data Home Medications Medication Instructions Recorded Confirmed Xarelto 10 mg PO DAILY 10/07/20 10/07/20 diltiazem HCl [DILT-XR] See Rx Instructions .ROUTE .COMPLEX 10/07/20 10/07/20 gabapentin [Neurontin] See Rx Instructions .ROUTE .COMPLEX 10/07/20 10/07/20 olanzapine [Zyprexa] 10 mg PO DAILY 10/07/20 10/07/20 oxcarbazepine [Trileptal] 150 mg PO DAILY 10/07/20 10/07/20 oxybutynin chloride [Ditropan XL] See Rx Instructions .ROUTE .COMPLEX 10/07/20 10/07/20 quetiapine [Seroquel] See Rx Instructions .ROUTE .COMPLEX 10/07/20 10/07/20 sertraline [Zoloft] 100 mg PO DAILY 10/07/20 10/07/20 Allergies Allergy/AdvReac Type Severity Reaction Status Date / Time Penicillins Allergy Unknown Verified 10/08/20 16:33 Review of Systems Review of Systems: CONSTITUTIONAL: Denies fever, chills, or sweats. EYES: Denies visual changes, redness, or discharge. ENT: Denies rhinorrhea, congestion, sore throat, or otalgia. CARDIOVASCULAR: Denies chest pain, palpitations, or edema. RESPIRATORY: Denies cough or dyspnea. GASTROINTESTINAL: Denies abdominal pain, nausea, vomiting, or diarrhea. GENITOURINARY: Denies dysuria or hematuria. SKIN: Denies rash or itching. MUSCULOSKELETAL: Denies back pain, joint pain, or myalgia. NEUROLOGIC: Denies headache, numbness, or weakness. PSYCHIATRIC: Denies anxiety or depression. [facility] Past Medical History Medical History Afib COPD (chronic obstructive pulmonary disease) HTN (hypertension) Social History Social History Smoking packs per day: 0.5 Smoking cigarettes per day: 10.0 Years smoked: 10 Smoking pack-years: 5.00 Smoking status: Light tobacco smoker Tobacco type: cigarettes Alcohol intake: never Substance use: former Substance use type: marijuana Gender identity (if verbalized by the patient): Female Sexual Orientation (if Verbalized by the Patient): Straight or Heterosexual Spiritual care concerns: No Exam Narrative: General appearance: Well-developed, well-nourished, morbidly obese Skin: Normal color Head: Normocephalic, nontraumatic Eyes: Clear conjunctiva ENT: Oropharynx normal, ears normal, nose normal Neck: Supple, nontender Chest and respiratory: Airway patent, no respiratory distress, no accessory muscle use Heart: Regular rate/rhythm Abdomen: Soft, nontender, no organomegaly, quiet bowel sounds Vascular: Normal peripheral pulses, normal capillary refill. 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
[2021-06-30 14:22] LABS: Alveolar/Arterial O2 Gradient 8.2 mmHg; Base Excess ABG 7.9 mEq/l (+/-2.0); Fractional Inspired Oxygen 32 %; HCO3 ABG 35.5 mEq/l (22.0-26.0); Oxygen Content ABG 14.4 %vol (16.0-22.0); Oxygen Saturation ABG 98.5 % (95.0-100.0); Oxyhemoglobin 97.5 % THb (90.0-100.0); PO2 ABG 140.4 mmHg (80.0-100.0); PO2 FiO2 Ratio Arterial Blood 4.39 %; Total Hemoglobin 10.3 g/dL (12.0-18.0); pH ABG 7.335 (7.350-7.450)
[2021-06-30 14:24] LABS: Device NASAL CANNULA; Modified Allen's Test Pass; Site Drawn RIGHT RADIAL
[2021-06-30 15:17] LABS: Basophils Percent Auto 0.2 % (0.2-1.2); Hematocrit 33.8 % (37.0-47.0); Hemoglobin 9.8 g/dL (12.0-15.0); Immature Granulocyte Absolute 0.02 K/mm3 (0.00-0.031); Immature Granulocyte Percent A 0.5 % (0-0.5); Lymphocytes Absolute Auto 0.69 K/mm3 (0.9-3.2); Lymphocytes Percent Auto 15.8 % (18.3-44.2); Mean Corpuscular Hemoglobin 25.6 pg (26-34); Mean Corpuscular Volume 88.3 fl (80-100); Monocytes Absolute Auto 0.2 K/mm3 (0.1-0.6); Monocytes Percent Auto 4.6 % (2.6-8.5); Neutrophils Absolute Auto 3.4 K/mm3 (1.3-6.7); Neutrophils Percent Auto 78.9 % (45.5-73.1); Platelet Count Result 165 k/mm3 (150-375); Red Blood Count 3.83 M/mm3 (4.2-5.4); Red Cell Distribution Width 15.5 % (11.5-14.5); White Blood Count 4.4 K/mm3 (4.5-10.0)
[2021-06-30 15:27] LABS: INR 1.7; Prothrombin Time 19.2 Seconds (11.1-14.7)
[2021-06-30 15:28] LABS: Partial Thromboplastin Time 38.9 SECONDS (22.3-36.8)
[2021-06-30] MEDS: HYDROmorphone HCL INJ (*CRX) 1 MG/ML SYR 0.5 MG IV PUSH (15:28)
[2021-06-30] MEDS: ONDANSETRON INJ 4 MG/2 ML VIAL IV PUSH (15:29)
[2021-06-30 15:43] LABS: Blood Urea Nitrogen 31 mg/dL (7-17); Calcium 8.9 mg/dL (8.4-10.2); Carbon Dioxide > 40 mmol/L (22-30); Chloride 97 mmol/L (98-107); Estimated CRCL calculation 83 ml/min; Estimated Glomerular Filt Rate 45; Glucose 123 mg/dL (65-110); Potassium 4.1 mmol/L (3.4-5.0); Sodium 141 mmol/L (137-145)
[2021-06-30 15:49] LABS: NT Pro B Type Natriuretic Pept 1020 pg/mL (5-100); Troponin I < 0.012 ng/mL (0.000-0.034)
[2021-06-30 16:21] LABS: Hypochromasia 2+ (NORMAL); Platelet Estimate Adequate (Adequate)
--- NOTE | 2021-06-30 16:33 | PC.NURSE ---
Called lab and spoke to Radha to add on BNP
--- NOTE | 2021-06-30 18:32 | PC.NURSE ---
Called [facility] for patients med list. YOSELIN tello stated she will fax one over.
[2021-06-30] MEDS: FUROSEMIDE INJ 40 MG/4 ML VIAL 60 MG IV PUSH (19:19)
--- NOTE | 2021-06-30 20:56 | PM.IMHP ---
H&P: HPI History of Present Illness Date/Time: 06/30/21 20:56 Chief Complaint: Altered mental status Narrative: This is a 61-year-old female with past medical history significant for morbid obesity, chronic kidney disease, tobacco dependence, COPD/emphysema, bilateral lower extremity tibia and ankle fracture patient has been residing in a rehabilitation facility obstructive sleep apnea on BiPAP at nighttime, seizure disorder, atrial fibrillation, hypertension, dyslipidemia, chronic hypoxic respiratory failure. Patient was brought to the emergency room due to altered mental status at rehabilitation facility she was noted to be very sleepy and incoherent not waking up or staying awake long. Patient was placed on BiPAP in emergency room at the time of my visit she was off of BiPAP and denied any issues or discomfort. Denies any cough ,any sputum production she had been feeling short of breath but she had not been on her BiPAP at nighttime she has been at the rehabilitation center for only 2 days after she was just recently discharged from outside facility, denies any fevers chills rigors, any pain or burning with urination, no chest pain, no leg swelling, no abdominal pain ,no nausea, no vomiting, no diarrhea, no palpitation, no PND, or orthopnea. Preliminary workup was significant for ABG with a pCO2 of 69 pH of 7.35 PO2 of 140. Chest x-ray was significant for diffuse lung infiltrates likely edema. Decision has been made to place the patient in observation for further management treatment and evaluation. Review of Systems Review of Systems: Patient brought to the emergency room due to drowsiness altered mental status shortness of breath Constitutional: Constitutional: Denies chills, Reports daytime sleepiness, Denies excessive sweating, Denies fatigue, Denies fever(s), Denies malaise, Denies night sweats and Denies weakness Eyes: Eyes: Denies change in vision ENT: Denies dysphagia, Denies vertigo, Denies dizziness, Denies nasal congestion, Denies nasal discharge, Denies nasal obstruction and Denies odynophagia Cardiovascular: Cardiovascular: Denies irregular heart rhythm, Denies lightheadedness, Denies radiating jaw, neck or arm pain, Denies palpitations, Reports dyspnea, Denies dyspnea on exertion and Reports orthopnea Respiratory: Respiratory: Denies cough, Denies excessive phlegm production and Reports dyspnea Gastrointestinal: Gastrointestinal: Denies abdominal pain, Denies dyspepsia, Denies heartburn, Denies nausea and Denies vomiting Genitourinary: Genitourinary: Reports no additional female genitourinary complaints Musculoskeletal: Musculoskeletal: Reports no additional musculoskeletal complaints Integumentary/Breasts: Skin/Breast: Reports rash (Intertriginous) and Reports skin ulcer Neurologic: Reports system reviewed and no additional complaints, except as documented, Denies focal weakness and Denies Sensory deficit (Neuro) Psychiatric: Psychiatric: Reports no additional psychiatric complaints Endocrine: Endocrine: Reports no additional endocrine complaints Hematologic/Lymphatic: Hematologic/Lymphatic: Reports no additional hematologic/lymphatic complaints Allergic/Immunologic: Allergic/Immunologic: Reports no additional allergic/immunologic complaints [facility] Past Medical History Medical History (Updated 07/01/21 @ 03:28 by Tad Calix MD) Afib Chronic renal failure, stage 3 (moderate) COPD (chronic obstructive pulmonary disease) HTN (hypertension) Family History Family History (Updated 06/30/21 @ 23:34 by Sil Lu RN) Father Lung cancer Grandparent Colon cancer Mother Congestive heart failure Social History Social History Smoking packs per day: 0.5 Smoking cigarettes per day: 10.0 Years smoked: 10 Smoking pack-years: 5.00 Smoking status: Current every day smoker Tobacco type: cigarettes and pipe Second hand tobacco smoke exposure: Yes
--- NOTE | 2021-06-30 22:21 | ADMGEN ---
This patient, Cathy Greene, was admitted to IMU Room 232-01 @2200 on 06/30/21 report received from Abby. Patient/family oriented to hospital policies and general routines including ID bracelet, bed and alarms, visiting hours, pain management, procedures, bathroom and other care routines, personal items, smoking policy, room service/diet, and visiting hours. Information on how to activate the Rapid Response Team has been discussed. Patient/Family are encouraged to report perceived risks to care and to ask questions if they do not understand what they are told or what they should do.
[2021-06-30] MEDS: FUROSEMIDE INJ 40 MG/4 ML VIAL 20 MG IV PUSH (23:53)
[2021-07-01] VITALS (15 sets, daily range): BP systolic 111–138; BP diastolic 41–60; PULSE 53–66; RESP 19–24; TEMP 36.1–36.6; O2SAT 97–100; BMI 72.9; BMI 10.0
[2021-07-01 07:48] LABS: Glucose Point of Care 135 mg/dl (65-105)
[2021-07-01 09:08] LABS: Hematocrit 32.4 % (37.0-47.0); Hemoglobin 9.3 g/dL (12.0-15.0); Immature Granulocyte Absolute 0.01 K/mm3 (0.00-0.031); Immature Granulocyte Percent A 0.2 % (0-0.5); Lymphocytes Absolute Auto 0.55 K/mm3 (0.9-3.2); Lymphocytes Percent Auto 13.3 % (18.3-44.2); Mean Corpuscular HGB Conc 28.7 g/dl (32-36); Mean Corpuscular Hemoglobin 25.2 pg (26-34); Mean Corpuscular Volume 87.8 fl (80-100); Monocytes Absolute Auto 0.3 K/mm3 (0.1-0.6); Monocytes Percent Auto 6.3 % (2.6-8.5); Neutrophils Absolute Auto 3.3 K/mm3 (1.3-6.7); Neutrophils Percent Auto 80.2 % (45.5-73.1); Platelet Count Result 145 k/mm3 (150-375); Red Blood Count 3.69 M/mm3 (4.2-5.4); Red Cell Distribution Width 15.7 % (11.5-14.5); White Blood Count 4.1 K/mm3 (4.5-10.0)
[2021-07-01] MEDS: HYDROcodone/acetaminophen (*CRX) 5-325 MG TABLET 1 TAB PO ×3 (09:21→22:22)
[2021-07-01] MEDS: FLUTICASONE PROPIONATE 0.05% NA SPR 16 GM BTL (*BKC) 2 SPRAY NASAL (09:22)
[2021-07-01] MEDS: OLANZapine 5 MG TABLET 10 MG PO (09:22)
[2021-07-01] MEDS: FERROUS SULFATE 324 MG TABLET PO ×2 (09:22→17:21)
[2021-07-01] MEDS: QUEtiapine FUMARATE 25 MG TABLET 50 MG PO (09:22)
[2021-07-01] MEDS: levETIRAcetam 500 MG TABLET PO ×2 (09:23→22:06)
[2021-07-01] MEDS: PRAMIPEXOLE 1 MG TABLET 2 MG PO ×2 (09:23→17:20)
[2021-07-01] MEDS: amLODIPine BESYLATE 5 MG TABLET PO (09:23)
[2021-07-01] MEDS: GABAPENTIN 300 MG CAPSULE PO ×3 (09:23→17:20)
[2021-07-01] MEDS: dilTIAZem HCL CD 180 MG CAP.ER.24H PO (09:23)
[2021-07-01] MEDS: METOPROLOL TARTRATE 25 MG TABLET PO ×2 (09:23→22:02)
[2021-07-01] MEDS: OXcarbazepine 150 MG TABLET PO ×2 (09:23→17:42)
[2021-07-01] MEDS: ATORVASTATIN 40 MG TABLET PO (09:23)
[2021-07-01] MEDS: SERTRALINE HCL 50 MG TABLET 100 MG PO ×2 (09:23→17:23)
[2021-07-01] MEDS: PRAMIPEXOLE 0.25 MG TABLET PO ×2 (09:23→17:23)
[2021-07-01] MEDS: FUROSEMIDE INJ 40 MG/4 ML VIAL 20 MG IV PUSH ×2 (09:24→22:05)
[2021-07-01] MEDS: MAGNESIUM OXIDE 400 MG TABLET PO ×2 (09:24→17:21)
[2021-07-01 09:35] LABS: Iron 41 ug/dL (37-170)
[2021-07-01 09:44] LABS: Percent Iron Saturation 13 % (20-50)
[2021-07-01 09:45] LABS: Alanine Aminotransferase 20 U/L (4-35); Albumin Level 3.5 g/dL (3.5-5.1); Alkaline Phosphatase 96 U/L (38-126); Aspartate Amino Transferase 27 U/L (14-36); Bilirubin,Total 0.3 mg/dL (0.2-1.3); Blood Urea Nitrogen 31 mg/dL (7-17); Calcium 8.9 mg/dL (8.4-10.2); Carbon Dioxide > 40 mmol/L (22-30); Chloride 95 mmol/L (98-107); Estimated CRCL calculation 71 ml/min; Estimated Glomerular Filt Rate 38; Glucose 132 mg/dL (65-110); Magnesium 1.7 mg/dL (1.6-2.3); Phosphorus 6.4 mg/dL (2.5-4.5); Potassium 4.1 mmol/L (3.4-5.0); Sodium 142 mmol/L (137-145)
[2021-07-01] MEDS: TOLNAFTATE 1% POWDER 45 GM BTL 1 APPLIC TOPICAL ×2 (09:54→22:26)
[2021-07-01] MEDS: MUPIROCIN 2% OINT 22 GM TUBE 1 APPLIC TOPICAL (09:54)
[2021-07-01 10:31] LABS: Folic Acid 9.2 ng/mL (2.76->20)
[2021-07-01 12:41] LABS: Glucose Point of Care 120 mg/dl (65-105)
--- NOTE | 2021-07-01 14:01 | PM.IMPN ---
Progress Note: A&P Assessment and Plan (1) Acute hypercapnic respiratory failure: Code(s): J96.02 - Acute respiratory failure with hypercapnia Status: Acute Assessment and Plan: Patient presents with shortness of found to have acute respiratory failure. ABG shows 7.34/68/140 3 L. [place] related to untreated [place] worsened by CHF +/- COPD exacerbation. No wheezing noted on admission so feel COPD exacerbation less likely. Did note wear BiPAP last night. Clinically better. Wean O2 as tolerated. (2) CHF (congestive heart failure): Qualifiers: Heart failure chronicity: unspecified Heart failure type: unspecified Qualified Code(s): I50.9 - Heart failure, unspecified Code(s): I50.9 - Heart failure, unspecified Status: Acute Assessment and Plan: Chest x-ray admission shows diffuse airspace disease pulmonary edema. BNP was a 1000. Echo from September 2020 showing EF of 60-65% and abnormal diastolic function consistent with acute on chronic diastolic CHF. She was started IV Lasix. Excellent UOP overnight. Clinically improved. Add low salt diet. CHF teaching. (3) Chronic respiratory failure: Code(s): J96.10 - Chronic respiratory failure, unspecified whether with hypoxia or hypercapnia Status: Acute Assessment and Plan: Joceline has chronic respiratory failure and wears 3L O2 but may not need this much as seen by the ABG. Wean O2 as toelrated. May need home O2 evaluation when able. (4) Obstructive sleep apnea treated with BiPAP: Code(s): G47.33 - Obstructive sleep apnea (adult) (pediatric) Status: Acute Assessment and Plan: Per staff, patient is not set up for BiPAP at the skilled facility. Will obtain old records to determine BiPAP settings. Staff informed the patient will need BiPAP at discharge. Will start BiPAP here with auto titration. Repeat blood gas in the morning. (5) Afib: Code(s): I48.91 - Unspecified atrial fibrillation Status: Acute Assessment and Plan: Patient with pAFib. EKG showing normal sinus rhythm. Telemetry showing patient is maintaining normal sinus rhythm. Continue Xarelto for stroke prophylaxis. Continue Cardizem and metoprolol. Monitor closely on telemetry for evidence of bradycardia but so far appears to be tolerating these home medications. (6) HTN (hypertension): Code(s): I10 - Essential (primary) hypertension Status: Acute Assessment and Plan: Patient's blood pressure was reviewed on 07/01 Blood pressure remains well controlled. Will continue current medications. (7) Chronic renal failure, stage 3 (moderate): Code(s): N18.30 - Chronic kidney disease, stage 3 unspecified Status: Acute Assessment and Plan: Cr 1.2-1.5 baseline. Cr 1.2 on admission and up to 1.4 today but still within her baseline. Continue to follow closely while on diuretics. (8) Wound of left breast: Code(s): S21.002A - Unspecified open wound of left breast, initial encounter Status: Acute Assessment and Plan: She states related to laying on her left side. Continue local wound care. Wound care consult ordered (9) Intertriginous dermatitis associated with moisture: Code(s): L30.4 - Erythema intertrigo Status: Acute Assessment and Plan: Patietn with tinea in the abd folds and also with lower abdominal wound ulcer (not able to visualize) Wound care consulted and bactroban and tolnaftate ordered. Follow (10) Morbid obesity with BMI of 70 and over, adult: Code(s): E66.01 - Morbid (severe) obesity due to excess calories; Z68.45 - Body mass index [BMI] 70 or greater, adult Status: Acute Assessment and Plan: BMI 73. Her morbid obesity is contributing to her other medcial problems. Carb consistent diet ordered. (11) Nicotine dependence: Code(s): F17.200 - Nicotine dependence, unspecified, uncomplicate
[2021-07-01] MEDS: acetaZOLAMIDE SODIUM FOR INJ 500 MG VIAL 250 MG IV PUSH (15:27)
[2021-07-01 16:47] LABS: Glucose Point of Care 122 mg/dl (65-105)
[2021-07-01] MEDS: RIVAROXABAN 10 MG TABLET 20 MG PO (17:20)
[2021-07-01] MEDS: WATER, STERILE FOR INJECTION 10 ML VIAL XX (17:24)
[2021-07-01 20:38] LABS: Glucose Point of Care 207 mg/dl (65-105)
[2021-07-01] MEDS: traZODone HCL 50 MG TABLET 300 MG PO (22:01)
[2021-07-02] VITALS (12 sets, daily range): BP systolic 101–124; BP diastolic 37–49; PULSE 55–95; RESP 18–24; TEMP 36–36.9; O2SAT 94–99
[2021-07-02 05:01] LABS: Hematocrit 31.1 % (37.0-47.0); Mean Corpuscular HGB Conc 28.9 g/dl (32-36); Mean Corpuscular Hemoglobin 25.4 pg (26-34); Mean Corpuscular Volume 87.9 fl (80-100); Mean Platelet Volume 10.5 fl (7.4-10.4); Platelet Count Result 150 k/mm3 (150-375); Red Blood Count 3.54 M/mm3 (4.2-5.4); Red Cell Distribution Width 15.8 % (11.5-14.5); White Blood Count 4.4 K/mm3 (4.5-10.0)
[2021-07-02 05:08] LABS: Alveolar/Arterial O2 Gradient 42.5 mmHg; Base Excess ABG 12.1 mEq/l (+/-2.0); Fractional Inspired Oxygen 32 %; HCO3 ABG 40.4 mEq/l (22.0-26.0); Oxygen Content ABG 13.7 %vol (16.0-22.0); Oxygen Saturation ABG 96.3 % (95.0-100.0); Oxyhemoglobin 95.4 % THb (90.0-100.0); PO2 ABG 94.1 mmHg (80.0-100.0); PO2 FiO2 Ratio Arterial Blood 2.94 %; Total Hemoglobin 10.1 g/dL (12.0-18.0); pH ABG 7.331 (7.350-7.450)
[2021-07-02 05:11] LABS: Device NASAL CANNULA; Modified Allen's Test Pass; PCO2 ABG 78.3 mmHg (35.0-45.0); Site Drawn RIGHT RADIAL
[2021-07-02 05:16] LABS: Albumin Level 3.6 g/dL (3.5-5.1); Blood Urea Nitrogen 31 mg/dL (7-17); Calcium 8.8 mg/dL (8.4-10.2); Carbon Dioxide > 40 mmol/L (22-30); Chloride 94 mmol/L (98-107); Estimated CRCL calculation 71 ml/min; Estimated Glomerular Filt Rate 38; Glucose 142 mg/dL (65-110); Magnesium 1.9 mg/dL (1.6-2.3); Phosphorus 6.2 mg/dL (2.5-4.5); Potassium 3.6 mmol/L (3.4-5.0); Sodium 139 mmol/L (137-145)
[2021-07-02] MEDS: TOLNAFTATE 1% POWDER 45 GM BTL 1 APPLIC TOPICAL ×2 (08:45→20:39)
[2021-07-02] MEDS: MUPIROCIN 2% OINT 22 GM TUBE 1 APPLIC TOPICAL (08:45)
[2021-07-02] MEDS: FLUTICASONE PROPIONATE 0.05% NA SPR 16 GM BTL (*BKC) 2 SPRAY NASAL (08:46)
[2021-07-02] MEDS: OLANZapine 5 MG TABLET 10 MG PO (08:47)
[2021-07-02] MEDS: PRAMIPEXOLE 1 MG TABLET 2 MG PO ×2 (08:47→17:38)
[2021-07-02] MEDS: PRAMIPEXOLE 0.25 MG TABLET PO ×2 (08:47→17:38)
[2021-07-02] MEDS: ATORVASTATIN 40 MG TABLET PO (08:47)
[2021-07-02] MEDS: dilTIAZem HCL CD 180 MG CAP.ER.24H PO (08:47)
[2021-07-02] MEDS: GABAPENTIN 300 MG CAPSULE PO ×3 (08:47→17:38)
[2021-07-02] MEDS: amLODIPine BESYLATE 5 MG TABLET PO (08:47)
[2021-07-02] MEDS: SERTRALINE HCL 50 MG TABLET 100 MG PO ×2 (08:47→17:38)
[2021-07-02] MEDS: OXcarbazepine 150 MG TABLET PO ×2 (08:47→17:37)
[2021-07-02] MEDS: FERROUS SULFATE 324 MG TABLET PO ×2 (08:47→17:38)
[2021-07-02] MEDS: QUEtiapine FUMARATE 25 MG TABLET 50 MG PO (08:47)
[2021-07-02] MEDS: levETIRAcetam 500 MG TABLET PO ×2 (08:47→20:37)
[2021-07-02] MEDS: MAGNESIUM OXIDE 400 MG TABLET PO ×2 (08:48→17:38)
[2021-07-02] MEDS: FUROSEMIDE INJ 40 MG/4 ML VIAL 20 MG IV PUSH (08:48)
[2021-07-02] MEDS: METOPROLOL TARTRATE 25 MG TABLET PO ×2 (08:48→20:39)
[2021-07-02] MEDS: HYDROcodone/acetaminophen (*CRX) 5-325 MG TABLET 1 TAB PO ×2 (08:50→20:45)
[2021-07-02 08:55] LABS: Glucose Point of Care 128 mg/dl (65-105)
--- NOTE | 2021-07-02 15:52 | PM.IMPN ---
Progress Note: A&P Assessment and Plan (1) Acute hypercapnic respiratory failure: Code(s): J96.02 - Acute respiratory failure with hypercapnia Status: Acute Assessment and Plan: Patient presents with shortness of breath and found to have acute respiratory failure. ABG showed 7.34/68/140 on 3 L. [place] related to untreated SHELDON worsened by CHF +/- COPD exacerbation. No wheezing noted on admission so feel COPD exacerbation less likely. Did note wear BiPAP last night but wore it this morning. The device malfunctioned and she was changed to nasal cannula. Respiratory was informed of the malfunction. Clinically better. Back down to 3L. (2) CHF (congestive heart failure): Qualifiers: Heart failure chronicity: unspecified Heart failure type: unspecified Qualified Code(s): I50.9 - Heart failure, unspecified Code(s): I50.9 - Heart failure, unspecified Status: Acute Assessment and Plan: Chest x-ray admission shows diffuse airspace disease pulmonary edema. BNP was a 1000. Echo from September 2020 showing EF of 60-65% and abnormal diastolic function consistent with acute on chronic diastolic CHF. She was started IV Lasix. Excellent UOP with negative fluid balance. Continue low salt diet. CXR this morning was a poor film due to her rotation. Repeated CXR and shows improvement. Agree that the opacification of left lateral costophrenic angle is a prominent fat pad. Will change to oral Lasix. (3) Chronic respiratory failure: Code(s): J96.10 - Chronic respiratory failure, unspecified whether with hypoxia or hypercapnia Status: Acute Assessment and Plan: Patient has chronic respiratory failure and wears 3L O2. May not require that much as seen by the ABG. Wean O2 as tolerated. (4) Obstructive sleep apnea treated with BiPAP: Code(s): G47.33 - Obstructive sleep apnea (adult) (pediatric) Status: Acute Assessment and Plan: Per staff, patient is not set up for BiPAP at the skilled facility. Continue auto-BiPAP at night and with naps. Staff informed the patient will need BiPAP at discharge. (5) Afib: Code(s): I48.91 - Unspecified atrial fibrillation Status: Acute Assessment and Plan: Patient with pAFib/Flutter. EKG showing normal sinus rhythm. Telemetry showing patient is maintaining normal sinus rhythm most of the time but occasional AFlutter. Continue Xarelto for stroke prophylaxis. Continue Cardizem and metoprolol. Monitor closely on telemetry for evidence of significant bradycardia but so far appears to be tolerating these home medications. (6) HTN (hypertension): Code(s): I10 - Essential (primary) hypertension Status: Acute Assessment and Plan: Patient's blood pressure was reviewed on 07/02 Blood pressure remains well controlled. Will continue current medications. (7) Chronic renal failure, stage 3 (moderate): Code(s): N18.30 - Chronic kidney disease, stage 3 unspecified Status: Acute Assessment and Plan: Cr 1.2-1.5 baseline. Cr 1.2 on admission and up to 1.4 today but still within her baseline. Continue to follow closely while on diuretics. (8) Wound of left breast: Code(s): S21.002A - Unspecified open wound of left breast, initial encounter Status: Acute Assessment and Plan: She states related to laying on her left side. Continue local wound care. Encouraged her to lay on her right side. Specialty mattress ordered. (9) Intertriginous dermatitis associated with moisture: Code(s): L30.4 - Erythema intertrigo Status: Acute Assessment and Plan: Patient with tinea in the abd folds and also with lower abdominal wound ulcer. Wound care consulted and bactroban and tolnaftate ordered. Follow (10) Morbid obesity with BMI of 70 and over, adult: Code(s): E66.01 - Morbid (severe) obesity due to excess calories; Z68.45 - Body mass index
[2021-07-02] MEDS: RIVAROXABAN 10 MG TABLET 20 MG PO (17:38)
[2021-07-02 20:38] LABS: Glucose Point of Care 134 mg/dl (65-105)
[2021-07-02] MEDS: traZODone HCL 50 MG TABLET 300 MG PO (20:38)
[2021-07-03] VITALS (10 sets, daily range): BP systolic 109–133; BP diastolic 41–65; PULSE 50–85; RESP 18–26; TEMP 36.9–37.1; O2SAT 95–98
[2021-07-03 05:06] LABS: Hemoglobin 8.7 g/dL (12.0-15.0); Mean Corpuscular Hemoglobin 25.2 pg (26-34); Mean Platelet Volume 9.7 fl (7.4-10.4); Platelet Count Result 132 k/mm3 (150-375); Red Blood Count 3.45 M/mm3 (4.2-5.4); Red Cell Distribution Width 15.7 % (11.5-14.5); White Blood Count 4.9 K/mm3 (4.5-10.0)
[2021-07-03 05:40] LABS: Albumin Level 3.4 g/dL (3.5-5.1); Blood Urea Nitrogen 32 mg/dL (7-17); Calcium 8.6 mg/dL (8.4-10.2); Carbon Dioxide > 40 mmol/L (22-30); Chloride 93 mmol/L (98-107); Estimated CRCL calculation 60 ml/min; Estimated Glomerular Filt Rate 35; Glucose 114 mg/dL (65-110); Magnesium 1.9 mg/dL (1.6-2.3); Phosphorus 4.2 mg/dL (2.5-4.5); Potassium 3.4 mmol/L (3.4-5.0); Sodium 137 mmol/L (137-145)
[2021-07-03] MEDS: HYDROcodone/acetaminophen (*CRX) 5-325 MG TABLET 1 TAB PO ×2 (06:34→14:44)
[2021-07-03] MEDS: FUROSEMIDE 40 MG TABLET PO (08:43)
[2021-07-03] MEDS: POTASSIUM CHLORIDE 20 MEQ TABLET 40 MEQ PO (08:43)
[2021-07-03] MEDS: PRAMIPEXOLE 1 MG TABLET 2 MG PO ×2 (08:43→17:22)
[2021-07-03] MEDS: METOPROLOL TARTRATE 25 MG TABLET PO ×2 (08:44→22:41)
[2021-07-03] MEDS: GABAPENTIN 300 MG CAPSULE PO ×3 (08:44→17:22)
[2021-07-03] MEDS: OLANZapine 5 MG TABLET 10 MG PO (08:44)
[2021-07-03] MEDS: QUEtiapine FUMARATE 25 MG TABLET 50 MG PO (08:44)
[2021-07-03] MEDS: OXcarbazepine 150 MG TABLET PO ×2 (08:44→17:24)
[2021-07-03] MEDS: FERROUS SULFATE 324 MG TABLET PO ×2 (08:44→17:22)
[2021-07-03] MEDS: PRAMIPEXOLE 0.25 MG TABLET PO ×2 (08:44→17:23)
[2021-07-03] MEDS: amLODIPine BESYLATE 5 MG TABLET PO (08:44)
[2021-07-03] MEDS: dilTIAZem HCL CD 180 MG CAP.ER.24H PO (08:44)
[2021-07-03] MEDS: levETIRAcetam 500 MG TABLET PO ×2 (08:44→22:41)
[2021-07-03] MEDS: MAGNESIUM OXIDE 400 MG TABLET PO ×2 (08:44→17:22)
[2021-07-03] MEDS: FLUTICASONE PROPIONATE 0.05% NA SPR 16 GM BTL (*BKC) 2 SPRAY NASAL (08:44)
[2021-07-03] MEDS: ATORVASTATIN 40 MG TABLET PO (08:44)
[2021-07-03] MEDS: SERTRALINE HCL 50 MG TABLET 100 MG PO ×2 (08:44→17:23)
[2021-07-03] MEDS: MUPIROCIN 2% OINT 22 GM TUBE 1 APPLIC TOPICAL (08:45)
[2021-07-03] MEDS: TOLNAFTATE 1% POWDER 45 GM BTL 1 APPLIC TOPICAL ×2 (08:45→22:42)
--- NOTE | 2021-07-03 13:13 | PM.DS ---
DS: Admitting Diagnosis Discharge Date 07/03/21 Admitting Diagnosis Shortness of breath DS: Discharge Diagnosis Discharge Diagnosis (1) Acute hypercapnic respiratory failure: Code(s): J96.02 - Acute respiratory failure with hypercapnia Status: Acute Assessment and Plan: Patient presents with shortness of breath and found to have acute respiratory failure. ABG showed 7.34/68/140 on 3 L. [place] related to untreated SHELDON worsened by CHF +/- COPD exacerbation. No wheezing noted on admission so felt COPD exacerbation less likely. Able to resume her BiPAP here. She has not been getting this at the facility. Clinically better. Back down to 3L. (2) CHF (congestive heart failure): Qualifiers: Heart failure chronicity: unspecified Heart failure type: unspecified Qualified Code(s): I50.9 - Heart failure, unspecified Code(s): I50.9 - Heart failure, unspecified Status: Acute Assessment and Plan: Chest x-ray admission shows diffuse airspace disease c/w pulmonary edema. BNP was 1000. Echo from September 2020 showing EF of 60-65% and abnormal diastolic function consistent with acute on chronic diastolic CHF. She was started IV Lasix. Excellent UOP with negative fluid balance. Treated with low salt diet. CXR showed improvement. Agree that the opacification of left lateral costophrenic angle is a prominent fat pad. We changed her to oral Lasix. (3) Chronic respiratory failure: Code(s): J96.10 - Chronic respiratory failure, unspecified whether with hypoxia or hypercapnia Status: Acute Assessment and Plan: Patient has chronic respiratory failure and wears 3L O2. May not require that much as seen by the ABG. (4) Obstructive sleep apnea treated with BiPAP: Code(s): G47.33 - Obstructive sleep apnea (adult) (pediatric) Status: Acute Assessment and Plan: Per staff, patient was not set up for BiPAP at the skilled facility. She was treated with auto-BiPAP at night and with naps. BiPAP available for patient at the facility now. (5) Afib: Code(s): I48.91 - Unspecified atrial fibrillation Status: Acute Assessment and Plan: Patient with hx of pAFib/Flutter. EKG showing normal sinus rhythm. Telemetry showing patient is maintaining normal sinus rhythm most of the time but occasional AFlutter. We continued Xarelto for stroke prophylaxis. We also continued Cardizem and metoprolol. (6) HTN (hypertension): Code(s): I10 - Essential (primary) hypertension Status: Acute Assessment and Plan: Patient's blood pressure was monitored closely and remained well controlled. (7) Chronic renal failure, stage 3 (moderate): Code(s): N18.30 - Chronic kidney disease, stage 3 unspecified Status: Acute Assessment and Plan: Cr 1.2-1.5 baseline. Cr 1.2 on admission and up to 1.5 today but still within her baseline. Follow as outpatient while on Lasix (8) Wound of left breast: Code(s): S21.002A - Unspecified open wound of left breast, initial encounter Status: Acute Assessment and Plan: Wounds present on admission. She states wound related to laying on her left side. Continue local wound care. Encouraged her to lay on her right side. We provided a specialty mattress for her. (9) Intertriginous dermatitis associated with moisture: Code(s): L30.4 - Erythema intertrigo Status: Acute Assessment and Plan: Patient with tinea in the abd folds and also with lower abdominal wound ulcer. Wound care consulted and bactroban and tolnaftate ordered. (10) Morbid obesity with BMI of 70 and over, adult: Code(s): E66.01 - Morbid (severe) obesity due to excess calories; Z68.45 - Body mass index [BMI] 70 or greater, adult Status: Acute Assessment and Plan: BMI 73. Her morbid obesity is contributing to her other medcial problems. Carb consistent diet ordered.
[2021-07-03 16:05] LABS: Glucose Point of Care 108 mg/dl (65-105)
[2021-07-03] MEDS: RIVAROXABAN 10 MG TABLET 20 MG PO (17:22)
[2021-07-04] MEDS: traZODone HCL 50 MG TABLET 300 MG PO (00:06)
[2021-07-04 03:15] VITALS: PULSE 52; RESP 17; O2SAT 95
[2021-07-04 03:34] VITALS: BP 108/31; PULSE 50; RESP 20; TEMP 36.1; O2SAT 97
== END 2021-07-04 06:30 | DRG 291 ==
LOC: ANHED 16:36 → ANHIMU 19:34
PROVIDERS: Admitting Provider Internal Medicine; Emergency Provider Emergency Medicine; PCP Family Medicine; Visit Provider Internal Medicine
DX: I13.0 Hypertensive heart and chronic kidney disease with heart failure and stage 1 through stage 4 chronic kidney disease, or unspecified chronic kidney disease (principal); I50.33 Acute on chronic diastolic (congestive) heart failure; J96.22 Acute and chronic respiratory failure with hypercapnia; Z68.44 Body mass index [BMI] 60.0-69.9, adult; Z23 Encounter for immunization; J44.9 Chronic obstructive pulmonary disease, unspecified; G47.33 Obstructive sleep apnea (adult) (pediatric); N18.30 Chronic kidney disease, stage 3 unspecified; D64.9 Anemia, unspecified; E66.01 Morbid (severe) obesity due to excess calories; I48.91 Unspecified atrial fibrillation; F17.210 Nicotine dependence, cigarettes, uncomplicated; G40.909 Epilepsy, unspecified, not intractable, without status epilepticus; L30.4 Erythema intertrigo; S21.002A Unspecified open wound of left breast, initial encounter; X58.XXXA Exposure to other specified factors, initial encounter
CPT/HCPCS: 36415; 36600; 71045; 71046; 80048; 80053; 80069; 82607; 82728; 82746; 82805; 82948; 83540; 83550; 83735; 83880; 84100; 84443; 84484; 85025; 85027; 85610; 85730; 90471; 90653; 93005; 94002; 94660; 96365; 96375; 96376; 97162; 97167; 97530; 97535; 99291; A9270; G0008; G0378; J0131; J1120; J1170; J1940; J2405

== ENCOUNTER 2021-08-11 11:30 | Emergency (ER) | payer MEDICARE, MEDICAID, SELFPAY ==
[2021-08-11 11:31] VITALS: BP 123/83; PULSE 57; RESP 14; TEMP 36.1; O2SAT 100
--- NOTE | 2021-08-11 12:50 | ED.GENADULT ---
HPI - General Adult General Chief complaint: Recheck/Abnormal Lab/Rx Stated complaint: ABN labs Time Seen by Provider: 08/11/21 12:26 History of Present Illness HPI narrative: Patient is a 61-year-old female who presents ER due to a abnormal lab. Her custodial found that her white blood cell count was 3.0. This caused them grave concern and they decided she should come to the emergency room to be evaluated. Patient denies any symptoms or feeling of illness at this time. Patient is chronically O2 dependent. She has history of CHF. She was recently diagnosed with Covid 19. The diagnosis came 18 days ago. Related Data Home Medications Medication Instructions Recorded Confirmed Xarelto 20 mg PO DAILY 10/07/20 06/30/21 diltiazem HCl 180 mg PO DAILY 10/07/20 06/30/21 gabapentin [Neurontin] 300 mg PO TID 10/07/20 06/30/21 olanzapine [Zyprexa] 10 mg PO DAILY 10/07/20 06/30/21 oxcarbazepine [Trileptal] 150 mg PO BID 10/07/20 06/30/21 oxybutynin chloride [Ditropan XL] 5 mg PO DAILY 10/07/20 06/30/21 sertraline [Zoloft] 100 mg PO BID 10/07/20 06/30/21 Allergy (diphenhydramine) 25 mg PO QID PRN 06/30/21 06/30/21 acetaminophen 500 mg PO Q6H PRN 06/30/21 06/30/21 amlodipine [Norvasc] 5 mg PO QAM 06/30/21 06/30/21 atorvastatin 40 mg PO DAILY 06/30/21 06/30/21 bisacodyl 10 mg RECTAL DAILY PRN 06/30/21 06/30/21 ferrous sulfate 325 mg PO BID 06/30/21 06/30/21 fluticasone propionate 2 spray INTRANASAL DAILY 06/30/21 06/30/21 hydrocodone-acetaminophen 1 tablet PO Q6H PRN 06/30/21 06/30/21 levetiracetam 500 mg PO BID 06/30/21 06/30/21 magnesium 500 mg PO BID 06/30/21 06/30/21 pramipexole 2.25 mg PO BID 06/30/21 06/30/21 quetiapine 50 mg PO DAILY 06/30/21 06/30/21 trazodone 300 mg PO HS 06/30/21 06/30/21 Allergies Allergy/AdvReac Type Severity Reaction Status Date / Time Penicillins Allergy Unknown Verified 10/08/20 16:33 Review of Systems Review of Systems: All systems reviewed & are unremarkable except as noted in HPI and below Constitutional: Constitutional: Denies chills, Denies fever(s) and Denies weakness ENT: Denies nasal congestion and Denies sore throat Cardiovascular: Cardiovascular: Denies chest pain and Denies radiating jaw, neck or arm pain Respiratory: Respiratory: Denies cough, Denies dyspnea and Denies wheezing Gastrointestinal: Gastrointestinal: Denies abdominal pain, Denies nausea and Denies vomiting Genitourinary: Genitourinary: Denies nocturia and Denies dysuria [facility] Past Medical History Medical History (Updated 08/11/21 @ 14:44 by Clinton Roberts MD) Afib CHF (congestive heart failure) Chronic renal failure, stage 3 (moderate) COPD (chronic obstructive pulmonary disease) HTN (hypertension) Family History Family History (Updated 06/30/21 @ 23:34 by Sil Lu RN) Father Lung cancer Grandparent Colon cancer Mother Congestive heart failure Social History Social History Smoking packs per day: 0.5 Smoking cigarettes per day: 10.0 Years smoked: 10 Smoking pack-years: 5.00 Smoking status: Current every day smoker Tobacco type: cigarettes and pipe Second hand tobacco smoke exposure: Yes Alcohol intake: current Substance use: former Substance use type: marijuana Last use: 06/13/21 Gender identity (if verbalized by the patient): Female Sexual Orientation (if Verbalized by the Patient): Straight or Heterosexual Spiritual care concerns: No Exam Narrative: GENERAL: Chronically ill-appearing, morbidly obese, and in no acute distress. HEAD: Normocephalic, atraumatic. EYES: PERRL and EOMI. CHEST: Clear to auscultation. No respiratory distress. HEART: Regular rate and rhythm. Normal peripheral pulses. EXTREMITIES: Normal range of motion. No edema. SKIN: Warm, dry, no rash. NEURO: Alert and oriented x3. PSYCH: Normal mood and affect. Course Course Emergency Course: Patient is alert and oriented x3. H
[2021-08-11 13:37] LABS: Hematocrit 32.1 % (37.0-47.0); Hemoglobin 9.4 g/dL (12.0-15.0); Immature Granulocyte Absolute 0.01 K/mm3 (0.00-0.031); Immature Granulocyte Percent A 0.3 % (0-0.5); Immature Platelet Fraction Pct 2.3 % (0.9-11.2); Lymphocytes Absolute Auto 0.52 K/mm3 (0.9-3.2); Lymphocytes Percent Auto 14.8 % (18.3-44.2); Mean Corpuscular HGB Conc 29.3 g/dl (32-36); Mean Corpuscular Hemoglobin 26.2 pg (26-34); Mean Corpuscular Volume 89.4 fl (80-100); Mean Platelet Volume 10.2 fl (7.4-10.4); Monocytes Absolute Auto 0.1 K/mm3 (0.1-0.6); Neutrophils Absolute Auto 2.8 K/mm3 (1.3-6.7); Neutrophils Percent Auto 80.9 % (45.5-73.1); Platelet Count Result 119 k/mm3 (150-375); Red Blood Count 3.59 M/mm3 (4.2-5.4); Red Cell Distribution Width 16.1 % (11.5-14.5); White Blood Count 3.5 K/mm3 (4.5-10.0)
[2021-08-11 13:51] LABS: Blood Urea Nitrogen 22 mg/dL (7-17); Calcium 8.5 mg/dL (8.4-10.2); Carbon Dioxide > 40 mmol/L (22-30); Chloride 94 mmol/L (98-107); Estimated CRCL calculation 99 ml/min; Estimated Glomerular Filt Rate 56; Glucose 106 mg/dL (65-110); Potassium 4.3 mmol/L (3.4-5.0); Sodium 138 mmol/L (137-145)
[2021-08-11 14:24] LABS: Hypochromasia 1+ (NORMAL); Ovalocytes 1+ (NORMAL); Platelet Estimate Decreased (Adequate); Stomatocytes 2+ (NORMAL)
[2021-08-11] MEDS: HYDROcodone/acetaminophen (*CRX) 5-325 MG TABLET 1 TAB PO (15:07)
--- NOTE | 2021-08-11 15:14 | PC.NURSE ---
made contact with [employer] to transfer pt home to [facility] in [place]. company accepted with eta of [id number]
--- NOTE | 2021-08-11 15:42 | PC.NURSE ---
david has arrived and is aware the pt is going to [facility].
[2021-08-11 15:59] VITALS: BP 100/52; PULSE 63; RESP 20; O2SAT 100
== END 2021-08-11 16:00 ==
PROVIDERS: Emergency Provider Emergency Medicine; PCP Family Medicine
DX: D72.819 Decreased white blood cell count, unspecified (principal); I48.91 Unspecified atrial fibrillation; I50.9 Heart failure, unspecified; I13.0 Hypertensive heart and chronic kidney disease with heart failure and stage 1 through stage 4 chronic kidney disease, or unspecified chronic kidney disease; N18.30 Chronic kidney disease, stage 3 unspecified; Z79.01 Long term (current) use of anticoagulants; F17.210 Nicotine dependence, cigarettes, uncomplicated; F17.290 Nicotine dependence, other tobacco product, uncomplicated
CPT/HCPCS: 36415; 80048; 85025; 85055; 99283; A9270

== ENCOUNTER 2025-01-12 11:38 | Inpatient (IN) | payer MEDICARE, SELFPAY ==
[2025-01-12] VITALS (15 sets, daily range): BP systolic 107–142; BP diastolic 44–65; PULSE 65–74; RESP 14–20; TEMP 36.5–36.8; O2SAT 96–100; BMI 58.3
--- NOTE | ~2025-01-12 | XR_ITS ---
EXAMINATION: XR chest 1V portable DATE: 01/12/2025 12:40 INDICATION: Shortness of breath TECHNIQUE: frontal view of the chest was obtained. COMPARISON: Chest radiograph dated 07/02/2021 FINDINGS: Evaluation limited by patient body habitus. Patient is rotated towards the left. Large-bore dual-lume n likely tunneled right internal jugular central venous catheter with distal tip at the superior cavo atrial junction. Artifactual diffuse increased density of the right side of the images including the lung and chest wall relative to the left. Persistent airspace opacity at the lateral left mid to lowe r lung zone which obscures the heart border and lateral side of the left hemidiaphragm which could be due to large pericardial fat pad, atelectasis or pneumonia. No pleural effusion or pneumothorax. Car diomegaly with pulmonary vascular congestion. IMPRESSION: 1. Opacities at the lateral left mid to lower lung zone which could represent prominent paracardial f at pad, atelectasis, pneumonia or some combination thereof. 2. Cardiomegaly with pulmonary vascular congestion. 3. Evaluation somewhat limited by patient body habitus. Reviewed, dictated and finalized at location A. IMPRESSION: 1. Opacities at the lateral left mid to lower lung zone which could represent p rominent paracardial fat pad, atelectasis, pneumonia or some combination thereo f. 2. Cardiomegaly with pulmonary vascular congestion. 3. Evaluation somewhat limited by patient body habitus.
--- NOTE | 2025-01-12 12:23 | ED_ITS ---
HPI - General Adult General Chief complaint: Recheck/Abnormal Lab/Rx Stated complaint: lethargy Time Seen by Provider: 01/12/25 11:57 History of Present Illness HPI narrative: 64-year-old female present to the emergency department for evaluation for increased lethargy. Patient does have history of end-stage renal disease and is on dialysis with last dialysis on Wednesday. Patient also reports a history renal cancer diagnosed approximately 3 months ago. Patient reports he does make urine is having some urinary symptoms. Patient states she was sent in for anemia. Patient states she is bed-bound due to bilateral leg injury approximately 6 years ago. Patient resides at [facility] Medications ?Medication ?Instructions ?Recorded ?Confirmed ?Last Taken ?Type diltiazem HCl 180 mg 180 mg PO DAILY 10/07/20 06/30/21 Unknown History capsule,extended release 24 hr, controlled gabapentin 300 mg capsule 300 mg PO TID 10/07/20 06/30/21 Unknown History (Neurontin) olanzapine 10 mg tablet (Zyprexa) 10 mg PO DAILY 10/07/20 06/30/21 Unknown History oxcarbazepine 150 mg tablet 150 mg PO BID 10/07/20 06/30/21 Unknown History (Trileptal) oxybutynin chloride 5 mg 5 mg PO DAILY 10/07/20 06/30/21 Unknown History tablet,extended release 24 hr (Ditropan XL) rivaroxaban 10 mg tablet (Xarelto) 20 mg PO DAILY 10/07/20 06/30/21 Unknown History sertraline 100 mg tablet (Zoloft) 100 mg PO BID 10/07/20 06/30/21 Unknown History acetaminophen 500 mg tablet 500 mg PO Q6H PRN Pain (Scale 06/30/21 06/30/21 Unknown History Score 1-3) amlodipine 5 mg tablet (Norvasc) 5 mg PO QAM 06/30/21 06/30/21 Unknown History atorvastatin 40 mg tablet 40 mg PO DAILY 06/30/21 06/30/21 Unknown History bisacodyl 10 mg RECTAL DAILY PRN Constipation 06/30/21 06/30/21 Unknown History ferrous sulfate 325 mg (65 mg 325 mg PO BID 06/30/21 06/30/21 Unknown History iron) tablet fluticasone propionate 50 2 spray intranasal DAILY 06/30/21 06/30/21 Unknown History mcg/actuation nasal spray,suspension hydrocodone 5 mg-acetaminophen 325 1 tablet PO Q6H PRN Pain Rated 4-6 06/30/21 06/30/21 Unknown History mg tablet levetiracetam 500 mg tablet 500 mg PO BID 06/30/21 06/30/21 Unknown History magnesium 500 mg tablet 500 mg PO BID 06/30/21 06/30/21 Unknown History pramipexole 2.25 mg PO BID 06/30/21 06/30/21 Unknown History quetiapine 50 mg tablet 50 mg PO DAILY 06/30/21 06/30/21 Unknown History trazodone 150 mg tablet 300 mg PO HS 06/30/21 06/30/21 Unknown History Allergies Allergy/AdvReac Type Severity Reaction Status Date / Time Penicillins Allergy Unknown Verified 06/03/22 11:30 Review of Systems 2 Review of Systems: All systems reviewed & are unremarkable except as noted in HPI and below PMFSH Past Medical History Medical History (Updated 01/12/25 @ 20:19 by Rosalio Calix MD) Seizure disorder Immobility Rheumatoid arthritis PAF (paroxysmal atrial fibrillation) Fibromyalgia Gout Obesity hypoventilation syndrome SHELDON (obstructive sleep apnea) Chronic respiratory failure with hypoxia Atrial fibrillation COPD (chronic obstructive pulmonary disease) Diastolic heart failure Bipolar 1 disorder Anxiety and depression Left renal mass suspected malignancy Nephrolithiasis End stage renal disease CHF (congestive heart failure) HTN (hypertension) COPD (chronic obstructive pulmonary disease) Surgical History Surgical History (Updated 01/12/25 @ 20:14 by Rosalio Calix MD) History of cystoscopy S/P ureteral reimplantation History of hysterectomy S/P hemodialysis catheter insertion Family History Family History (System 06/03/22 @ 11:30 by Ansley Richard) Father Lung cancer Grandparent Colon cancer Mother Congestive heart failure Social History Social History (System 06/03/22 @ 11:30 by Ansley Richard) Smoking packs per day: 0.5 Smoking cigarettes per day: 10.0 Years smoked: 10 Smoking pack-years: 5.00 Smoking status: Former smoker Tobacco type: cigarettes and pipe Second hand tobacco smoke exposure: Yes Alcohol intake: never Substance use: never Substance use type: marijuana Last use: 06/13/21 Do You Feel Safe in your Home?: Yes Lack of Transportation: No Lack of Food: Never True Current Housing: I Have Housing Concerned About Future Housing: No Difficulty Paying Gas/Electric Bills: No Difficulty Paying for Meds: No Currently Unemployed: No Education: High School Diploma/GED Difficulty w/ Childcare or Family Care: No Gender identity (if verbalized by the patient): Female Sexual Orientation (if Verbalized by the Patient): Straight or Heterosexual Spiritual care concerns: No Exam 2 Narrative: APPEARANCE: Ill-appearing, obese body habitus HEAD: normocephalic, atraumatic. EYES: PERRLA/EOMI, conjunctivae clear. NOSE: Normal no drainage EARS:TMS clear with good light reflex. THROAT: Pharynx clear, no exudate. NECK: Supple. No adenopathy, no masses. RESPIRATORY: Airway patent, respirations nonlabored. Clear to auscultation bilaterally, no rales, rhonchi, wheezing. CARDIOVASCULAR: Regular rate and rhythm without murmurs rubs or gallops. ABDOMINAL: Soft, nontender, nondistended, normal bowel sounds MUSCULOSKELETAL: Moves all extremities. Strength/ROM intact, No edema, No calf tenderness. NEURO: Alert but somnolent SKIN: Warm, dry. Normal Color Course Vital Signs Vital signs: Vital Signs Temperature 98.0 F 01/12/25 11:54 Pulse Rate 66 01/12/25 11:54 Respiratory Rate 18 01/12/25 11:54 Blood Pressure 107/44 L 01/12/25 11:54 Pulse Oximetry 98 01/12/25 11:54 Oxygen Delivery Nasal Cannula 01/12/25 11:54 Oxygen Flow Rate 2 01/12/25 11:54 Temperature 97.7 F 01/12/25 20:22 Pulse Rate 74 01/12/25 20:22 Respiratory Rate 20 01/12/25 20:22 Blood Pressure 124/48 L 01/12/25 20:22 Pulse Oximetry 100 01/12/25 20:22 Oxygen Delivery Nasal Cannula 01/12/25 20:00 Oxygen Flow Rate 2 01/12/25 20:00 Medical Decision Making [facility] Narrative Medical decision making narrative: 64-year-old female presents to the emergency department for evaluation for complaint of increased generalized weakness. Patient is afebrile with no elevated leukocytosis does have a hemoglobin of 7.9 with known history of anemia. Patient denies any active bleeding. Patient's INR is 1.0. Patient does have end-stage renal disease does get dialysis Wednesday but is having an issue with her dialysis port and last had dialysis on Wednesday. Patient's current creatinine is 5.32 bili of no previous lab values on file was since 2020. Patient's BUN is 57. Patient's potassium is borderline high at 5.0. I discussed case with Nephrology and they will continue to follow her labs and did not recommend giving any Lokelma for the potassium. Surgery was consulted to change the dialysis catheter most likely on Wednesday. Patient was negative for influenza RSV and for COVID. Chest x-ray does show pulmonary vascular congestion. UA was significant for urinary tract infection and patient was started on Rocephin in the emergency department. Urine culture was ordered. Case was discussed with hospitalist patient was accepted for admission. Differential Diagnosis Differential Diagnosis: Dialysis catheter issue, pneumonia, urinary tract infection, electrolyte abnormality Vital Signs Vital Signs: Vital Signs Temperature 98.0 F 01/12/25 11:54 Pulse Rate 66 01/12/25 11:54 Respiratory Rate 18 01/12/25 11:54 Blood Pressure 107/44 L 01/12/25 11:54 Pulse Oximetry 98 01/12/25 11:54 Oxygen Delivery Nasal Cannula 01/12/25 11:54 Oxygen Flow Rate 2 01/12/25 11:54 Temperature 97.7 F 01/12/25 20:22 Pulse Rate 74 01/12/25 20:22 Respiratory Rate 20 01/12/25 20:22 Blood Pressure 124/48 L 01/12/25 20:22 Pulse Oximetry 100 01/12/25 20:22 Oxygen Delivery Nasal Cannula 01/12/25 20:00 Oxygen Flow Rate 2 01/12/25 20:00 Lab Data 01/12/25 12:51 01/12/25 12:51 Labs: Lab Results 01/12/25 01/12/25 01/12/25 Range/Units 12:51 12:57 15:01 WBC 5.9 (4.5-10.0) K/mm3 RBC 2.68 L (4.2-5.4) M/mm3 Hgb 7.9 L (12.0-15.0) g/dL Hct 25.9 L (37.0-47.0) % MCV 96.6 (80-100) fl MCH 29.5 (26-34) pg MCHC 30.5 L (32-36) g/dl RDW 13.6 (11.5-14.5) % Plt Count 213 D (150-375) k/mm3 MPV 8.9 (7.4-10.4) fl Immature Gran % (Auto) 0.9 H (0-0.5) % Neut % (Auto) 78.8 H (45.5-73.1) % Lymph % (Auto) 12.4 L (18.3-44.2) % Major % (Auto) 7.7 (2.6-8.5) % Eos % (Auto) 0.0 (0-4.4) % Baso % (Auto) 0.2 (0.2-1.2) % Lymph # (Auto) 0.73 L (0.9-3.2) K/mm3 Major # (Auto) 0.5 (0.1-0.6) K/mm3 Eos # (Auto) 0.0 (0-0.3) K/mm3 Baso # (Auto) 0.0 (0.0-0.1) K/mm3 Abs Immat Gran (auto) 0.05 H (0.00-0.031) K/mm3 Absolute Neuts (auto) 4.6 (1.3-6.7) K/mm3 Absolute Nucleated RBC 0.000 (0.0-0.012) K/mm3 Nucleated RBC % 0.0 (0.0-0.2) % PT 13.9 (11.1-14.7) Seconds INR 1.0 APTT 27.8 (22.3-36.8) Seconds Sodium 137 (137-145) mmol/L Potassium 5.0 (3.4-5.0) mmol/L Chloride 98 (98-107) mmol/L Carbon Dioxide 29 (22-30) mmol/L Anion Gap 10 (4-12) mmol/L BUN 57 H D (7-17) mg/dL Creatinine 5.32 H (0.7-1.0) mg/dL Estim Creat Clear Calc 16 ml/min Estimated GFR 8 L (59 - ) Glucose 140 H (65-110) mg/dL Calcium 9.2 (8.4-10.2) mg/dL Total Bilirubin 0.4 (0.2-1.3) mg/dL AST 17 (14-36) U/L ALT 13 (6-35) U/L Alkaline Phosphatase 103 (38-126) U/L Total Protein 7.0 (6.3-8.2) g/dL Albumin 3.9 (3.5-5.1) g/dL Urine Color Yellow (Yellow) Urine Appearance Turbid H (Clear) Urine pH 6.0 (5.0-9.0) Ur Specific Ariel 1.012 (1.001-1.035) Urine Protein 3+ H (Negative) mg/dL Urine Glucose (UA) Negative (Negative) mg/dL Urine Ketones Negative (Negative) mg/dL Ur Blood (Man) 3+ H (Negative) Urine Nitrate Positive H (Negative) Urine Bilirubin Negative (Negative) Urine Urobilinogen 0.2 (<2.0) mg/dL Add Ur Microanalysis Reviewed Leukocyte Esterase Rfl 3+ H (Negative) ARTURO/UL Urine RBC >100 H (0-2) /hpf Urine WBC >100 H (0-3) /hpf Ur Squamous Epith Cells Occasional (Few) /hpf Urine Bacteria 4+ H /hpf Urine Casts 6-10 Influenza A (RT-PCR) Negative (Negative) Influenza B (RT-PCR) Negative (Negative) RSV (RT-PCR) Negative (Negative) SARS-CoV-2 RNA (RT-PCR) Negative (Negative) Blood Type O Positive Antibody Screen Negative Discharge Plan Discharge Clinical Impression: Admission for dialysis and dialysis catheter care, Acute UTI Patient Disposition: Still a Patient Condition: Stable
[2025-01-12 12:58] LABS: Basophils Percent Auto 0.2 % (0.2-1.2); Hematocrit 25.9 % (37.0-47.0); Hemoglobin 7.9 g/dL (12.0-15.0); Immature Granulocyte Absolute 0.05 K/mm3 (0.00-0.031); Immature Granulocyte Percent A 0.9 % (0-0.5); Lymphocytes Absolute Auto 0.73 K/mm3 (0.9-3.2); Lymphocytes Percent Auto 12.4 % (18.3-44.2); Mean Corpuscular HGB Conc 30.5 g/dl (32-36); Mean Corpuscular Hemoglobin 29.5 pg (26-34); Mean Corpuscular Volume 96.6 fl (80-100); Mean Platelet Volume 8.9 fl (7.4-10.4); Monocytes Absolute Auto 0.5 K/mm3 (0.1-0.6); Monocytes Percent Auto 7.7 % (2.6-8.5); Neutrophils Absolute Auto 4.6 K/mm3 (1.3-6.7); Neutrophils Percent Auto 78.8 % (45.5-73.1); Platelet Count Result 213 k/mm3 (150-375); Red Blood Count 2.68 M/mm3 (4.2-5.4); Red Cell Distribution Width 13.6 % (11.5-14.5); White Blood Count 5.9 K/mm3 (4.5-10.0)
[2025-01-12 13:15] LABS: Alanine Aminotransferase 13 U/L (6-35); Albumin Level 3.9 g/dL (3.5-5.1); Alkaline Phosphatase 103 U/L (38-126); Anion Gap 10 mmol/L (4-12); Aspartate Amino Transferase 17 U/L (14-36); Bilirubin,Total 0.4 mg/dL (0.2-1.3); Blood Urea Nitrogen 57 mg/dL (7-17); Calcium 9.2 mg/dL (8.4-10.2); Carbon Dioxide 29 mmol/L (22-30); Chloride 98 mmol/L (98-107); Estimated CRCL calculation 16 ml/min; Estimated Glomerular Filt Rate 8; Glucose 140 mg/dL (65-110); Sodium 137 mmol/L (137-145)
[2025-01-12 13:18] LABS: Prothrombin Time 13.9 Seconds (11.1-14.7)
[2025-01-12 13:19] LABS: Partial Thromboplastin Time 27.8 Seconds (22.3-36.8)
[2025-01-12 13:33] LABS: Influenza A QL RT-PCR Negative (Negative); Influenza B QL RT-PCR Negative (Negative); RSV RNA, RT-PCR Negative (Negative); SARS-CoV-2 RNA PCR Negative (Negative)
[2025-01-12 15:29] LABS: Add Urine Microscopic? YES; Appearance Urine Turbid (Clear); Bacteria Urine 4+ /hpf; Bilirubin Urine Negative (Negative); Blood Urine 3+ (Negative); Color Urine Yellow (Yellow); Glucose Urine UA Negative (Negative); Ketones Urine Negative (Negative); Leukocyte Esterase Ur 3+ LEU/UL (Negative); Need Manual Microscopic Reviewed; Nitrate Urine Positive (Negative); Protein Urine 3+ mg/dL (Negative); RBC Urine >100 /hpf (0-2); Specific Grav Ur 1.012 (1.001-1.035); Squamous Epithelial Cell Urine Occasional /hpf (Few); Urobilinogen Urine 0.2 mg/dL (<2.0); WBC Urine >100 /hpf (0-3)
--- NOTE | 2025-01-12 16:36 | PM.IMHP ---
H&P: HPI History of Present Illness Date/Time: 01/12/25 16:36 Chief Complaint: Dialysis Access Problem, Lethargy Narrative: 64 y/o F with PMH of ESRD on HD (MWF), bedbound, CHF, HTN, AFib, and COPD presents here with dialysis access issue and lethargy. The patient presents here from [facility] for further evaluation of her dialysis access. It has reportedly not been functioning over the last week. The patient's last full dialysis treatment was on 12/15. Was able to do a partial treatment on 01/10. Patient additionally reporting increased lethargy and urinary symptoms. Patient believe she was sent to the ER due to anemia. Initial VS at presentation: 98? F, HR 66, R 18, 107/44, and 98% on 2L NC. ED workup showed: No leukocytosis, hemoglobin 7.9 (previously 9.4 in 2020), normal coags, creatinine 5.32 and GFR 8, glucose 140, and UA suggestive of UTI. CXR showed opacities in the lateral left mid to lower lung zones which could represent prominent pericardial fat pad, atelectasis, pneumonia, or some combination there of, cardiomegaly with pulmonary vascular congestion, evaluation somewhat limited due to body habitus. Review of Systems Review of Systems: All systems reviewed & are unremarkable except as noted in HPI and below PMFSH Past Medical History Medical History (Updated 01/12/25 @ 20:19 by Rosalio Calix MD) Seizure disorder Immobility Rheumatoid arthritis PAF (paroxysmal atrial fibrillation) Fibromyalgia Gout Obesity hypoventilation syndrome SHELDON (obstructive sleep apnea) Chronic respiratory failure with hypoxia Atrial fibrillation COPD (chronic obstructive pulmonary disease) Diastolic heart failure Bipolar 1 disorder Anxiety and depression Left renal mass suspected malignancy Nephrolithiasis End stage renal disease CHF (congestive heart failure) HTN (hypertension) COPD (chronic obstructive pulmonary disease) Surgical History Surgical History (Updated 01/12/25 @ 20:14 by Rosalio Calix MD) History of cystoscopy S/P ureteral reimplantation History of hysterectomy S/P hemodialysis catheter insertion Family History Family History (System 06/03/22 @ 11:30 by Ansley Richard) Father Lung cancer Grandparent Colon cancer Mother Congestive heart failure Social History Social History (System 06/03/22 @ 11:30 by Ansley Richard) Smoking packs per day: 0.5 Smoking cigarettes per day: 10.0 Years smoked: 10 Smoking pack-years: 5.00 Smoking status: Former smoker Tobacco type: cigarettes and pipe Second hand tobacco smoke exposure: Yes Alcohol intake: never Substance use: never Substance use type: marijuana Last use: 06/13/21 Do You Feel Safe in your Home?: Yes Lack of Transportation: No Lack of Food: Never True Current Housing: I Have Housing Concerned About Future Housing: No Difficulty Paying Gas/Electric Bills: No Difficulty Paying for Meds: No Currently Unemployed: No Education: High School Diploma/GED Difficulty w/ Childcare or Family Care: No Gender identity (if verbalized by the patient): Female Sexual Orientation (if Verbalized by the Patient): Straight or Heterosexual Spiritual care concerns: No Meds Home Medications and Allergies Home Medications ?Medication ?Instructions ?Recorded ?Confirmed ?Type diltiazem HCl 180 mg 180 mg PO DAILY 10/07/20 06/30/21 History capsule,extended release 24 hr, controlled gabapentin 300 mg capsule 300 mg PO TID 10/07/20 06/30/21 History (Neurontin) olanzapine 10 mg tablet (Zyprexa) 10 mg PO DAILY 10/07/20 06/30/21 History oxcarbazepine 150 mg tablet 150 mg PO BID 10/07/20 06/30/21 History (Trileptal) oxybutynin chloride 5 mg 5 mg PO DAILY 10/07/20 06/30/21 History tablet,extended release 24 hr (Ditropan XL) rivaroxaban 10 mg tablet (Xarelto) 20 mg PO DAILY 10/07/20 06/30/21 History sertraline 100 mg tablet (Zoloft) 100 mg PO BID 10/07/20 06/30/21 History magnesium hydroxide 400 mg/5 mL 30 ml PO DAILY PRN Constipation 10/10/20 06/30/21 Rx oral suspension (Milk of Magnesia) #30 mL acetaminophen 500 mg tablet 500 mg PO Q6H PRN Pain (Scale 06/30/21 06/30/21 History Score 1-3) amlodipine 5 mg tablet (Norvasc) 5 mg PO QAM 06/30/21 06/30/21 History atorvastatin 40 mg tablet 40 mg PO DAILY 06/30/21 06/30/21 History bisacodyl 10 mg RECTAL DAILY PRN Constipation 06/30/21 06/30/21 History ferrous sulfate 325 mg (65 mg 325 mg PO BID 06/30/21 06/30/21 History iron) tablet fluticasone propionate 50 2 spray intranasal DAILY 06/30/21 06/30/21 History mcg/actuation nasal spray,suspension hydrocodone 5 mg-acetaminophen 325 1 tablet PO Q6H PRN Pain Rated 4-6 06/30/21 06/30/21 History mg tablet levetiracetam 500 mg tablet 500 mg PO BID 06/30/21 06/30/21 History magnesium 500 mg tablet 500 mg PO BID 06/30/21 06/30/21 History pramipexole 2.25 mg PO BID 06/30/21 06/30/21 History quetiapine 50 mg tablet 50 mg PO DAILY 06/30/21 06/30/21 History trazodone 150 mg tablet 300 mg PO HS 06/30/21 06/30/21 History foam bandage 4 X 4 (Mepilex) #5 ea 07/03/21 Rx furosemide 40 mg tablet 20 mg (1/2 x 40 mg) PO DAILY #30 07/03/21 Rx tabs metoprolol tartrate 25 mg tablet 25 mg PO Q12H #0 tabs 07/03/21 06/30/21 Rx mupirocin 2 % topical ointment 1 applic topical DAILY #15 grams 07/03/21 Rx tolnaftate 1 % topical powder 1 applic topical Q12HR #45 grams 07/03/21 Rx Allergies Allergy/AdvReac Type Severity Reaction Status Date / Time Penicillins Allergy Unknown Verified 06/03/22 11:30 Vital Signs Vital Signs - 24 hr 01/12/25 11:54 01/12/25 11:54 01/12/25 13:03 Temperature 98.0 F Pulse Rate 66 65 Respiratory Rate 18 17 Blood Pressure 107/44 L Pulse Oximetry 98 98 100 Oxygen Delivery Nasal Cannula Nasal Cannula Oxygen Flow Rate 2 2 01/12/25 13:31 01/12/25 14:15 01/12/25 14:30 Temperature 98.0 F Pulse Rate 65 67 66 Respiratory Rate 18 15 18 Blood Pressure 113/51 L Pulse Oximetry 99 100 96 Oxygen Delivery Oxygen Flow Rate 01/12/25 14:31 01/12/25 14:45 01/12/25 15:00 Temperature Pulse Rate 66 73 71 Respiratory Rate 16 17 15 Blood Pressure 116/55 L Pulse Oximetry 100 100 100 Oxygen Delivery Oxygen Flow Rate 01/12/25 15:01 01/12/25 15:30 Temperature Pulse Rate 69 Respiratory Rate 16 16 Blood Pressure 142/61 H Pulse Oximetry 100 99 Oxygen Delivery Oxygen Flow Rate 2 Exam Const: General: comfortable and no acute distress Other: , female, obese body habitus, chronically ill-appearing HENMT: Face/Nose/Sinus: Normal nares present Mouth: Yes moist mucous membranes Eyes: General: appearance normal, both eyes and all related structures Sclera: sclerae normal Pupils: Equal, round and reactive pupils present EOM: EOMs intact bilaterally Resp: Effort & Inspection: normal respiratory effort Auscultation: clear to auscultation bilaterally Cardio: Rate: regular rate Rhythm: regular rhythm Other: S1-S2 present without murmur, rub, ectopy GI: Other: Abdomen soft, nondistended but rounded, nontender. Normoactive bowel sounds in all quadrants. Skin: General skin exam: normal color and no rashes or lesions noted Wounds: no wounds Neuro: Speech: normal speech Motor exam (neuro): 5/5 motor strength present throughout Sensory Exam: normal sensation Other: A&O x4, somnolent Extrem: General: normal to inspection Psych: Mental Status: mental status grossly normal Affect: normal affect H&P: Results Labs Labs: Short CBC 01/12/25 Range/Units 12:51 WBC 5.9 (4.5-10.0) K/mm3 Hgb 7.9 L (12.0-15.0) g/dL Hct 25.9 L (37.0-47.0) % Plt Count 213 D (150-375) k/mm3 BMP 01/12/25 12:51 Sodium 137 Potassium 5.0 Chloride 98 Carbon Dioxide 29 BUN 57 H D Creatinine 5.32 H Glucose 140 H Calcium 9.2 Liver Function 01/12/25 Range/Units 12:51 Total Bilirubin 0.4 (0.2-1.3) mg/dL AST 17 (14-36) U/L ALT 13 (6-35) U/L Alkaline Phosphatase 103 (38-126) U/L Albumin 3.9 (3.5-5.1) g/dL Urine 01/12/25 Range/Units 15:01 Urine Color Yellow (Yellow) Urine Appearance Turbid H (Clear) Urine pH 6.0 (5.0-9.0) Ur Specific [place] 1.012 (1.001-1.035) Urine Protein 3+ H (Negative) mg/dL Urine Glucose (UA) Negative (Negative) mg/dL Assessment and Plan Assessment and plan (1) Acute UTI: Code(s): N39.0 - Urinary tract infection, site not specified Status: Acute Assessment and Plan: - did not meet SIRS criteria - UA: Turbid, 3+ protein, 3+ blood, positive nitrates, 3+ leuks, greater than 100 RBC and WBC, occasional epithelial cells, 4+ bacteria - UC pending - no previous urine culture available for review - started on Ceftriaxone on 01/12 (2) Anemia: Qualifiers: Anemia type: due to chronic kidney disease Chronic kidney disease stage: on chronic dialysis Qualified Code(s): N18.6 - End stage renal disease; D63.1 - Anemia in chronic kidney disease; Z99.2 - Dependence on renal dialysis Code(s): D64.9 - Anemia, unspecified Status: Acute Assessment and Plan: - Hgb 7.9, previously [id number] - likely has some underlying anemia of chronic disease/secondary to CKD. - check iron, TIBC, ferritin, B12, folic acid, and TSH - transfuse if <7 - trend H&H (3) Dialysis AV fistula malfunction: Qualifiers: Encounter type: initial encounter Qualified Code(s): T82.590A - Other mechanical complication of surgically created arteriovenous fistula, initial encounter Code(s): T82.590A - Other mechanical complication of surgically created arteriovenous fistula, initial encounter Status: Acute Assessment and Plan: - has been malfunctioning for the past week, last full treatment of dialysis on 12/15. Did receive partial treatment on 01/10. - general surgery consulted. ED spoke with on-call surgeon, will likely have dialysis catheter exchange on Wednesday. - trend electrolytes in interim (4) ESRD on dialysis: Code(s): N18.6 - End stage renal disease; Z99.2 - Dependence on renal dialysis Status: Chronic Assessment and Plan: - ESRD on HD on MWF - issues with dialysis fistula, see above - nephrology consulted for inpatient dialysis - monitor electrolytes (5) HTN (hypertension): Qualifiers: Hypertension type: unspecified Qualified Code(s): I10 - Essential (primary) hypertension Code(s): I10 - Essential (primary) hypertension Status: Chronic Assessment and Plan: - chronic, currently 120/59 - continue home medications - monitor (6) Obstructive sleep apnea treated with BiPAP: Code(s): G47.33 - Obstructive sleep apnea (adult) (pediatric) Status: Acute Assessment and Plan: - continue home CPAP Plan Diet: Renal GI Prophylaxis: Not currently indicated DVT Prophylaxis: SCDs IV fluids: None Lines/Tubes: Peripheral IV Code Status: Full code Quality VTE Prophylaxis VTE prophylaxis: mechanical ordered Hospitalist MIPS Advance Care Plan I have confirmed that the patient's Advanced Care Plan is present, code status is documented, or surrogate decision maker is listed in patient medical record.: Yes Medication Reconciliation I have utilized all available resources to obtain, update and review the patients current medications (includes all prescriptions, OTC, herbals, cannabis, and nutritional supplements).: Yes
--- NOTE | 2025-01-12 17:09 | PC.NURSE ---
Attempted to call report. RN unavailable will return call
--- NOTE | 2025-01-12 18:41 | ADMGEN ---
This patient, Cathy Greene, was admitted to 2 Medical Room 260-. Patient/family oriented to hospital policies and general routines including ID bracelet, bed and alarms, visiting hours, pain management, procedures, bathroom and other care routines, personal items, smoking policy, room service/diet, and visiting hours. Information on how to activate the Rapid Response Team has been discussed. Patient/Family are encouraged to report perceived risks to care and to ask questions if they do not understand what they are told or what they should do.
[2025-01-12 21:32] LABS: MRSA (PCR) DETECTED (NOT DETECTE)
[2025-01-13] VITALS (11 sets, daily range): BP systolic 100–130; BP diastolic 35–50; PULSE 18–80; RESP 15–73; TEMP 36.5–36.9; O2SAT 96–100
[2025-01-13 05:03] LABS: Basophils Percent Auto 0.2 % (0.2-1.2); Hematocrit 22.1 % (37.0-47.0); Immature Granulocyte Absolute 0.03 K/mm3 (0.00-0.031); Immature Granulocyte Percent A 0.5 % (0-0.5); Lymphocytes Absolute Auto 0.38 K/mm3 (0.9-3.2); Lymphocytes Percent Auto 5.9 % (18.3-44.2); Mean Corpuscular HGB Conc 31.2 g/dl (32-36); Mean Corpuscular Hemoglobin 29.7 pg (26-34); Mean Corpuscular Volume 95.3 fl (80-100); Mean Platelet Volume 8.6 fl (7.4-10.4); Monocytes Absolute Auto 0.4 K/mm3 (0.1-0.6); Monocytes Percent Auto 6.8 % (2.6-8.5); Neutrophils Absolute Auto 5.6 K/mm3 (1.3-6.7); Neutrophils Percent Auto 86.6 % (45.5-73.1); Platelet Count Result 177 k/mm3 (150-375); Red Blood Count 2.32 M/mm3 (4.2-5.4); Red Cell Distribution Width 13.2 % (11.5-14.5); White Blood Count 6.5 K/mm3 (4.5-10.0)
[2025-01-13 05:11] LABS: Hemoglobin 6.9 g/dL (12.0-15.0)
[2025-01-13 05:13] LABS: Iron 71 ug/dL (37-170)
[2025-01-13 05:16] LABS: Alanine Aminotransferase 13 U/L (6-35); Albumin Level 3.6 g/dL (3.5-5.1); Alkaline Phosphatase 85 U/L (38-126); Anion Gap 14 mmol/L (4-12); Aspartate Amino Transferase 19 U/L (14-36); Bilirubin,Total 0.3 mg/dL (0.2-1.3); Blood Urea Nitrogen 63 mg/dL (7-17); Calcium 9.3 mg/dL (8.4-10.2); Carbon Dioxide 27 mmol/L (22-30); Chloride 97 mmol/L (98-107); Estimated CRCL calculation 14 ml/min; Estimated Glomerular Filt Rate 7; Glucose 139 mg/dL (65-110); Magnesium 2.1 mg/dL (1.6-2.3); Phosphorus 9.1 mg/dL (2.5-4.5); Potassium 4.8 mmol/L (3.4-5.0); Sodium 138 mmol/L (137-145)
[2025-01-13 05:22] LABS: Percent Iron Saturation 31 % (20-50)
[2025-01-13 05:46] LABS: Hepatitis B Surface Antigen Negative (Negative)
[2025-01-13 06:03] LABS: Hepatitis B Surface Anti Res Negative
[2025-01-13 06:29] LABS: Folic Acid > 20.0 ng/mL (2.76->20)
[2025-01-13] MEDS: ACETAMINOPHEN 325 MG TABLET 650 MG PO (07:35)
[2025-01-13 08:09] LABS: Glucose Point of Care 111 mg/dl (65-105)
--- NOTE | 2025-01-13 08:25 | PC.NURSE ---
Multiple attempts made to notify [facility] in [place], [place] for current medication list.
[2025-01-13] MEDS: MUPIROCIN 2% OINT 22 GM TUBE 1 APPLIC EACH NARE ×2 (09:01→21:12)
--- NOTE | 2025-01-13 09:30 | P.CONNP_ITS ---
Assessment and Plan Assessment and plan (1) End stage renal disease: Code(s): N18.6 - End stage renal disease Status: Chronic Assessment and Plan: * last HD treatment on 01/10 (partial treatment) * normal schedule is Mondays, Wednesdays, and Fridays * noted issues with HD catheter (see #2) * follow electrolytes, volume status, and clearance - relatively stable currently * resume GOAL UMPIRE/dialysis as able (2) Hemodialysis catheter dysfunction: Code(s): T82.41XA - Breakdown (mechanical) of vascular dialysis catheter, initial encounter Status: Acute Assessment and Plan: * as noted by events at outpatient dialysis center on 01/10 and 01/12 * attempts at getting outpatient dialysis catheter exchanged/replaced hampered by lack of transportation by nursing facility and body habitus * Surgery consulted for exchange/replacement (3) Confusion: Code(s): R41.0 - Disorientation, unspecified Status: Acute Assessment and Plan: * presumably secondary to UTI * however, given only partial dialysis treatment on 01/10 along with inability to get dialysis on 01/12, cannot discount a degree of uremia * follow trend of mentation (4) Acute UTI: Code(s): N39.0 - Urinary tract infection, site not specified Status: Acute Assessment and Plan: * as suggested by admission UA * turbid, 3+ protein, 3+ blood, positive nitrates, 3+ leuks, greater than 100 RBC and WBC, occasional epithelial cells, 4+ bacteria * urine culture pending * on antibiotics (5) Anemia: Qualifiers: Anemia type: due to chronic kidney disease Chronic kidney disease stage: on chronic dialysis Qualified Code(s): N18.6 - End stage renal disease; D63.1 - Anemia in chronic kidney disease; Z99.2 - Dependence on renal dialysis Code(s): D64.9 - Anemia, unspecified Status: Acute Assessment and Plan: * drop in H/H noted * anemia studies with adequate iron stores * PRBC transfusion per protocol * dose with Epogen today * follow trend of H/H (6) HTN (hypertension): Qualifiers: Hypertension type: unspecified Qualified Code(s): I10 - Essential (primary) hypertension Code(s): I10 - Essential (primary) hypertension Status: Chronic Assessment and Plan: * reasonably controlled * follow trend of hemodynanics (7) Chronic respiratory failure with hypoxia: Code(s): J96.11 - Chronic respiratory failure with hypoxia Status: Chronic Assessment and Plan: * multifactorial: * COPD * SHELDON * OHS * CHF * on chornic supplemental oxygen * continue supportive therapy (8) Left renal mass: Code(s): N28.89 - Other specified disorders of kidney and ureter Status: Chronic Assessment and Plan: * follows with Urology as an outpatient * per review of outside records, deemed to be a poor surgical candidate * tentative outpatient plan was biopsy of lesion and radiation therapy (if mass is malignant) I will continue to follow the patient with you while he remains hospitalized and make further recommendations as deemed necessary. Thank you for allowing me to participate in the care of this patient. L History of Present Illness Reason for Consult Consult date: 01/13/25 Reason for consult: end stage renal disease Chief Complaint Chief complaint: Urinary tract infection, dialysis catheter malfunc History of Present Illness Narrative: The patient is a 62-year-old female with extensive past medical history as outlined below who presented to [facility] Emergency room from her outpatient dialysis center for further evaluation lethargy and dialysis catheter dysfunction. The patient presented to her outpatient dialysis unit for her regular scheduled dialysis treatment yesterday afternoon. Unfortunately, her dialysis catheter was unable to be accessed for treatment. The dialysis nurses were unable to push or pull from either port of her dialysis catheter. Apparently, on Wednesday, when she received her last dialysis treatment, Her treatment and about 30 minutes early as her dialysis catheter abruptly stopped function. it was noted that time as well that the nurses were unable to push/ flush or pull from any of the ports of her dialysis catheter as well. Given her dialysis catheter dysfunction, attempts were made to try to arrange for outpatient exchange of her dialysis catheter but this was difficult due to transportation issues from her nursing facility as well as the fact that her large body habitus exceeded the weight limits of some of the outpatient vascular access centers. Furthermore, since the dialysis nurses were unable to flush or pull from her the ports of her dialysis catheter, use of heparin and/or alteplase was not feasible either. She was subsequently sent back to her nursing facility but, as already mentioned, when she presented to her outpatient dialysis unit once again yesterday, they were unable to access her dialysis catheter. Furthermore, nursing staff noted at her dialysis center that she seemed a little bit more confused/lethargic than her baseline as well. She was subsequently transported to the emergency room for further assessment. Workup and evaluation emergency room demonstrated the patient to be hemodynamically stable and afebrile. Routine blood test demonstrated a normal white blood cell count, relative anemia with a hemoglobin of but 7.9, normal coagulation studies, and a chemistry panel that was consistent with her known history of end-stage renal disease without any critical electrolyte abnormalities. Her urinalysis was highly suggestive of urinary tract infection. Her chest x-ray showed opacities in the lateral left mid to lower lung zones which could represent prominent pericardial fat pad, atelectasis, pneumonia, or some combination there of, cardiomegaly with pulmonary vascular congestion, but evaluation somewhat limited due to body habitus. Due to her lethargy thought to be secondary to a possible urinary tract infection as well as the fact that her dialysis catheter is nonfunctional, Surgery was consulted for possible exchange/replacement her dialysis cath and the patient was admitted to hospital for further evaluation therapy. Since her admission, her mentation seems to be stable if not a bit better but repeat labs this morning show a drop in her hemoglobin and hematocrit but ongoing stability in her electrolytes. Renal consultation was requested due to her end-stage renal disease. The patient is somewhat familiar to me as I recently took over her care with regard to her renal replacement therapy /dialysis needs and end stage renal disease. The patient has a somewhat complex medical history that dates back as far as over the last 8 months. The patient had known chronic kidney disease and was being followed by Dr. Miguel Jamison for this issue for several years. However, she was hospitalized in May 2024 and her renal function deteriorated to the point where she was initiated on renal replacement therapy/dialysis. Initially, it was thought that this was an acute insult on top of her baseline chronic kidney disease and that her kidney function would eventually recover back to its baseline. However, since that time, the patient has remained dialysis-dependent and has been deemed as end-stage renal disease at this point in time. Since her initiation on renal replacement therapy/dialysis, [facility] for acute on chronic respiratory failure in conjunction with altered mental status with some of these admissions requiring intubation and mechanical ventilation related to CO2 narcosis and infection. More recently, she has a known left renal mass that is felt to be malignant but given that she is a poor surgical candidate, it was felt that a biopsy of this mass would be further indicated with the likelihood that radiation therapy would be initiated if necessary but I do not believe this has actually occurred as of yet. Prior to receiving dialysis on a Wednesday, Wednesday, Wednesday dialysis schedule at [facility] dialysis under my care, the patient was receiving dialysis at her previous nursing facility in [facility] where she was receiving daily dialysis 5 days a week. As mentioned above, her last dialysis treatment was on 01/10 but this was a partial treatment as this is when her dialysis catheter became nonfunctional. Currently, at the time my visit, her major complaint is that of pain (has not received her chronic pain medications as nursing has been unable to get a list of her medications from her nursing facility). Review of Systems 2 Review of Systems: As per HPI. [facility] Past Medical History Medical History (Updated 01/13/25 @ 11:04 by Rosalio Claix MD) ESRD on dialysis Seizure disorder Immobility Rheumatoid arthritis PAF (paroxysmal atrial fibrillation) Fibromyalgia Gout Obesity hypoventilation syndrome SHELDON (obstructive sleep apnea) Chronic respiratory failure with hypoxia Atrial fibrillation COPD (chronic obstructive pulmonary disease) Diastolic heart failure Bipolar 1 disorder Anxiety and depression Left renal mass suspected malignancy Nephrolithiasis End stage renal disease CHF (congestive heart failure) HTN (hypertension) COPD (chronic obstructive pulmonary disease) Surgical History Surgical History (Updated 01/12/25 @ 20:14 by Rosalio Calix MD) History of cystoscopy S/P ureteral reimplantation History of hysterectomy S/P hemodialysis catheter insertion Family History Family History (System 06/03/22 @ 11:30 by Ansley Richard) Father Lung cancer Grandparent Colon cancer Mother Congestive heart failure Social History Social History (System 06/03/22 @ 11:30 by Ansley Richard) Smoking packs per day: 0.5 Smoking cigarettes per day: 10.0 Years smoked: 10 Smoking pack-years: 5.00 Smoking status: Former smoker Tobacco type: cigarettes and pipe Second hand tobacco smoke exposure: Yes Alcohol intake: never Substance use: never Substance use type: marijuana Last use: 06/13/21 Do You Feel Safe in your Home?: Yes Lack of Transportation: No Lack of Food: Never True Current Housing: I Have Housing Concerned About Future Housing: No Difficulty Paying Gas/Electric Bills: No Difficulty Paying for Meds: No Currently Unemployed: No Education: High School Diploma/GED Difficulty w/ Childcare or Family Care: No Gender identity (if verbalized by the patient): Female Sexual Orientation (if Verbalized by the Patient): Straight or Heterosexual Spiritual care concerns: No Meds Home Medications and Allergies Home Medications ?Medication ?Instructions ?Recorded ?Confirmed ?Type amlodipine 5 mg tablet (Norvasc) 10 mg PO QHS 06/30/21 01/13/25 History atorvastatin 40 mg tablet 40 mg PO QHS 06/30/21 01/13/25 History ferrous sulfate 325 mg (65 mg 325 mg PO DAILY 06/30/21 01/13/25 History iron) tablet fluticasone propionate 50 1 spray intranasal DAILY 06/30/21 01/13/25 History mcg/actuation nasal spray,suspension hydrocodone 5 mg-acetaminophen 325 1 tablet PO Q8H PRN Pain Rated 4-6 06/30/21 01/13/25 History mg tablet levetiracetam 500 mg tablet 500 mg PO BID 06/30/21 01/13/25 History acetaminophen 325 mg tablet 650 mg PO Q6H PRN fever or pain 01/13/25 01/13/25 History (Aminofen) albuterol 90 mcg-budesonide 80 2 inh inhalation 6XD PRN shortness 01/13/25 01/13/25 History mcg/actuation HFA aerosol inhaler of breath (Airsupra) alprazolam 0.5 mg tablet 0.5 mg PO BID PRN anxiety 01/13/25 01/13/25 History baclofen 5 mg tablet 5 mg PO Q12H 01/13/25 01/13/25 History cholecalciferol (vitamin D3) 50 2,000 unit PO DAILY 01/13/25 01/13/25 History mcg (2,000 unit) capsule diclofenac sodium 1 % topical gel 1 ea topical Q6H PRN pain 01/13/25 01/13/25 History (Arthritis Pain (diclofenac)) diltiazem HCl 90 mg tablet 90 mg PO DAILY 01/13/25 01/13/25 History diphenhydramine HCl 25 mg capsule 50 mg PO Q8H PRN allergy symptoms 01/13/25 01/13/25 History (Aler-Cap) ergocalciferol (vitamin D2) 1,250 1,250 mcg PO WEEKLY 01/13/25 01/13/25 History mcg (50,000 unit) capsule escitalopram oxalate 10 mg tablet 10 mg PO DAILY 01/13/25 01/13/25 History folic acid 1 mg tablet 5 mg PO DAILY 01/13/25 01/13/25 History furosemide 40 mg tablet 40 mg PO DAILY 01/13/25 01/13/25 History hydroxyzine HCl 25 mg tablet 25 mg PO TID 01/13/25 01/13/25 History ipratropium 0.5 mg-albuterol 3 mg 3 ml inhalation Q2H PRN shortness 01/13/25 01/13/25 History (2.5 mg base)/3 mL nebulization of breath soln lactulose 10 gram/15 mL oral 30 g PO DAILY 01/13/25 01/13/25 History solution (Enulose) Allergies Allergy/AdvReac Type Severity Reaction Status Date / Time Penicillins Allergy Unknown Verified 06/03/22 11:30 Vital Signs Vital Signs Temp Pulse Resp BP Pulse Ox O2 Del Method O2 Flow Rate 01/13/25 08:00 96 Nasal Cannula 2 01/13/25 02:59 97.7 F 75 20 130/50 L 96 01/12/25 22:40 74 14 99 Autopap 01/12/25 22:40 99 Nasal Cannula 2 01/12/25 20:22 97.7 F 74 20 124/48 L 100 01/12/25 20:00 74 20 100 Nasal Cannula 2 01/12/25 17:25 98.2 F 71 18 120/59 L 99 01/12/25 16:01 97.8 F 68 17 128/65 100 01/12/25 15:30 16 99 2 01/12/25 15:01 69 16 142/61 H 100 01/12/25 15:00 71 15 100 01/12/25 14:45 73 17 100 01/12/25 14:31 66 16 116/55 L 100 01/12/25 14:30 66 18 96 01/12/25 14:15 67 15 100 01/12/25 13:31 98.0 F 65 18 113/51 L 99 01/12/25 13:03 65 17 100 01/12/25 11:54 98 Nasal Cannula 2 01/12/25 11:54 98.0 F 66 18 107/44 L 98 Nasal Cannula 2 Exam 2 Narrative: GENERAL APPEARANCE: chronically ill-appearing large Caucasina female in no acute distress HEENT: normocephalic, atraumatic, mild pallor to conjunctiva and sclera, nares patient NECK: no lymphadenopathy, thyromegaly, or JVD MOUTH: normal lips, teeth, and gums CARDIOVASCULAR: RRR, normal S1 and S2, no rub detected RESPIRATORY: clear anteriorly; decreased at the bases ABDOMEN: soft, nontender, nondistended, positive bowel sounds present EXTREMITIES: no evidence of cyanosis, clubbing, or edema NEUROLOGICAL: alert and oriented x 3; CN II - XII intact bilaterally; no focal deficits noted Results Lab Results 01/13/25 10:42 01/13/25 04:48 Lab results: Most recent lab results Calcium 9.3 mg/dL (8.4-10.2) 01/13/25 04:48 Phosphorus 9.1 mg/dL (2.5-4.5) H 01/13/25 04:48 Magnesium 2.1 mg/dL (1.6-2.3) 01/13/25 04:48
[2025-01-13 10:46] LABS: Hematocrit 21.4 % (37.0-47.0)
--- NOTE | 2025-01-13 10:54 | PC.NURSE ---
Repeat call made to [place], [place] for current medication list.
[2025-01-13 10:57] LABS: Hemoglobin 6.6 g/dL (12.0-15.0)
[2025-01-13] MEDS: DOXYCYCLINE 100 MG/NS 100 ML 100 MG/100 ML BAG IVPB ×2 (11:16→21:11)
[2025-01-13 11:57] LABS: Glucose Point of Care 137 mg/dl (65-105)
[2025-01-13] MEDS: SODIUM CHLORIDE 0.9% IV 250 ML 30 ML IV CONT (12:10)
--- OUTSIDE RECORDS SUMMARY | 2025-01-13 13:22 | XMS_ITS | Patient Health Record ---
Author Organization [facility] Address [address] [place] [id number] Care Team Providers Care Diabetes Education Coordinator Name Role Phone Anastacio Mehta Primary Care Provider Alex Salazar Unavailable [phone] ALLERGIES Allergen (clinical drug ingredient) Drug/Non Drug Allergy documented on EMR Reaction Allergy Type Onset Date Status Codeine Unknown Drug Allergy Active Penicillin Unknown Drug Allergy Active morphine Morphine Sulfate Unknown Drug Allergy Active REASON FOR REFERRAL No Information MEDICATIONS Medication SIG (Take, Route, Frequency, Duration) Notes Start Date End Date Status Sertraline HCl 100 MG 1 tablet Orally Tw ice a day Active traMADol HCl 50 MG 2 tablet as needed Orally Three times a day Active OLANZapine 10 MG 1 tablet Orally Once a day Active Pramipexole Dihydrochloride 0.5 MG 1 tablet before bedtime Orally Twice a day Active Lisinopril 20 MG 1 tablet Orally Twic e a day Active Gabapentin 300 MG 1 capsule Orally Thr ee times a day Active Iron 28 MG 1 tablet Orally Once a day Active Ambien 10 MG 1 tablet at bedtime as needed Orally Once a day Active Biotin 5000 5 MG 1 capsule Orally Onc e a day Active traZODone HCl 300 MG 0.5 tablet at bedti me as needed Orally At bedtime Active SOCIAL HISTORY Sex Assigned At : Social History Observation Description Sex Assigned At Unknown PROBLEMS Problem Type ICD Code Onset Dates Problem Status W/U Status Risk SNOMED Code Notes Problem Chronic kidney disease, stage 3 (moderate) (N18.3) Active confirmed Chronic kidney disease stage 3 (867590787) Problem Essential (primary) hypertension (I10) Active confirmed Essential hypertension (27036020) Problem Proteinuria, unspecified (R80.9) Active confirmed Proteinuria (04074295) Problem Type 2 diabetes mellitus with other diabetic kidney complication (E11.29) Active confirmed Diabetic renal disease (881582091) Problem Morbid (severe) obesity due to excess calories (E66.01) Active confirmed Morbid obesity (452337313) Problem Type 2 diabetes mellitus with diabetic chronic kidney disease (E11.22) Active confirmed Diabetic renal disease (628549479) PLAN OF TREATMENT Future Test Test Name Order Date Urinalysis, Routine 10/26/2016 PTH, Intact 10/26/2016 RENAL PANEL 10/26/2016 Vitamin D, 25-Hydroxy 10/26/2016 URINE PROTEIN W/CREAT RATIO 10/26/2016 Insurance Providers Payer Name Payer Address Payer Phone Subscriber Number Group Number Insured Name Patient Relationship to Insured Coverage Start Date Coverage End Date [place] [address] [place] [id number] [phone] [id number] Cathy Greene Self - patient is the insured MEDICAL (GENERAL) HISTORY Medical History History ICD Code CKD Stage III Hypertension Anemia Diabetes Mellitus Peripheral Neuroopathy Fibromyalgia Obesity Morbid Osteoarthritis Knee Restless Leg Syndrome Surgical History Surgery Date(Month/Year) Laparoscopic Hysterectomy
--- OUTSIDE RECORDS SUMMARY | 2025-01-13 13:22 | XMS_ITS | Encounter Summary ---
Author Organization [facility] Address [address] [place] [address] Care Team Providers Care Operator Vacuum Name Role Phone Nicolas Navarro MD Primary Care Provider Mckay Pineda MD Primary Care Provider Leroy Livingston MD Primary Care Provider [phone] Omar Pugh Primary Care Provider [phone] Encounter Details Date Type Department Care Team (Late st Contact Info) Description 11/27/2017 Abstract [facility] CONVERSION [address] [place] [address] , Generic Kamila, Social History Tobacco Use Types Packs/Day Years Used Date Smoking Tobacco: Never Assessed Comments Unknown Sex and Gender Information Value Date Recorded Sex Assigned at Female 11/28/2024 8:51 AM CDT Legal Sex Female 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 Gender Identity Not on file Sexual Orientation Not on file documented as of this encounter Plan of Treatment Not on file documented as of this encounter Visit Diagnoses Not on filedocumented in this encounter Additional Health Concerns Infection Onset Date Last Indicated Resolved Time COVID-19 Rule Out 12/13/2020 12/13/2020 12/13/2020 11:49 AM CDT COVID-19 Rule Out 01/14/2021 01/14/2021 01/14/2021 8:45 AM CDT COVID-19 Rule Out 01/14/2021 01/14/2021 01/14/2021 9:57 AM CDT COVID-19 Rule Out 01/22/2021 01/22/2021 01/22/2021 3:15 PM CDT COVID-19 Rule Out 06/20/2021 06/20/2021 06/21/2021 2:29 PM CDT COVID-19 Rule Out 06/26/2021 06/26/2021 06/26/2021 6:33 PM CDT MRSA Comment:Added from external infection. 07/28/2022 07/15/2023 COVID-19 Rule Out 12/12/2022 12/12/2022 12/12/2022 8:10 PM CDT COVID-19 Rule Out 12/21/2022 12/21/2022 12/21/2022 1:37 PM CDT COVID-19 Rule Out 07/15/2023 07/15/2023 07/15/2023 11:39 AM CDT ESBL - Extended Spectrum Beta-lactamase Comment:Added from external infection. Source: 03/26/24 [facility]. 03/26/2024 06/03/2024 documented as of this encounter Care Teams Operator Vacuum Relationship Specialty Start Date End Date Nicolas Navarro MD [address] [facility] [place] [phone] PCP - General FAMILY PRACTICE 04/17/19 06/18/21 Mckay Pineda MD [address] [place] [phone] PCP - General FAMILY PRACTICE 06/19/21 12/14/22 Leroy Livingston MD [address] [place] [phone] PCP - General FAMILY PRACTICE 12/15/22 03/06/23 [place] [address] [place] [id number] PCP - General PHYSICIAN WAREHOUSE RECEIVER 03/07/23 documented as of this encounter
--- OUTSIDE RECORDS SUMMARY | 2025-01-13 13:22 | XMS_ITS | CONTINUITY OF CARE DOCUMENT ---
Author Name eduardo clark Address Unknown Organization [facility] Address [address] [place] [address] Phone [phone] Care Team Providers Care Wash Worker Name Role Phone Major Dhillon MD Unavailable Major Dhillon MD Unavailable [phone] INSURANCE PROVIDERS Payer name Policy type / Coverage type [place] red [employer] party ID [id number] Blue [facility] [id number]
--- OUTSIDE RECORDS SUMMARY | 2025-01-13 13:22 | XMS_ITS | Clinical Summary ---
Author Organization [facility] Address [address] [place] [address] Care Team Providers Care Financial Institution President Name Role Phone Omar Pugh Primary Care Provider [phone] Allergies Active Allergy Reactions Criticality Noted Date Comments Penicillins Unknown Medium 08/09/2019 Patient Stated That she took Amoxicillin prescription picked up from [facility] on 05/19/19 with no problems. -08/10/19 Misael Gomez, KrissyD Medications sertraline 100 MG tabletIndicatio ns:depression Take 2 tablets (200 mg total) by mouth daily. Indications: depression 9 Active OXYGENIndicatio ns:copd, dyspnea 2 L/min by Nasal route continuous. Indications: copd, dyspnea 9 Active levETIRAcetam 500 MG tablet Take 1 tablet (500 mg total) by mouth 2 (two) times a day. 1 Active OXcarbazepine 150 MG tablet Take 1 tablet (150 mg total) by mouth 2 (two) times a day. 1 Active atorvastatin 40 MG tablet Take 1 tablet (40 mg total) by mouth nightly. Active ferrous sulfate, 65 mg elemental, 325 (65 FE) MG tablet Take 1 tablet (325 mg total) by mouth every other day. Every other day Active pantoprazole EC (PROTONIX) 40 MG tablet Take 1 tablet (40 mg total) by mouth daily. Active ipratropium-alb uterol (DUONEB) 0.5-2.5 (3) MG/3ML Solution Take 3 mLs by nebulization every 2 (two) hours as needed (shortness of breath). For SOB Active acetaminophen (TYLENOL) 325 MG tablet Take 2 tablets (650 mg total) by mouth every 4 (four) hours as needed for Pain or Fever. Active bisacodyl (DULCOLAX) [address] 1 suppository (10 mg total) rectally daily as needed for Constipation (if no results from M.O.M.). Active hydrOXYzine (ATARAX) 25 MG tablet Take 1 tablet (25 mg total) by mouth every 8 (eight) hours as needed for Itching. Active magnesium hydroxide (MILK OF MAGNESIA) 400 MG/5ML suspension Take 30 mLs by mouth daily as needed for Constipation (if no BM in 3 days). Active polyethylene glycol (GLYCOLAX) packet Take 240 mLs (17 g total) by mouth daily. Dissolve powder in 240 mL water Active insulin aspart (NOVOLOG) 100 UNIT/ML injection (PEN) Inject into the skin 3 (three) times daily before meals. Sliding scale 0 units for BG 70-149 1 unit for BG 150-199 2 units for BG 200-249 3 units for BG 250-299 4 units for BG 300-349 6 units for BG >349 Active ARIPiprazole (ABILIFY) 2 MG tablet Take 1 tablet (2 mg total) by mouth nightly at bedtime. Active fluticasone furoate-vilante rol (BREO ELLIPTA) 100-25 MCG/ACT inhaler Inhale 1 puff into the lungs daily. Active fluticasone propionate (FLONASE) 50 MCG/ACT nasal spray 1 spray by Nasal route 2 (two) times daily. Active metoprolol succinate ER (TOPROL-XL) 25 MG 24 hr tablet Take 1 tablet (25 mg total) by mouth 2 (two) times a day. Active sodium chloride (OCEAN) 0.65 % Solution 2 sprays by Each Nostril route every 6 (six) hours as needed (congestion). Active diclofenac sodium (VOLTAREN) 1 % gel Apply topically every 8 (eight) hours. Active ALPRAZolam (XANAX) 0.25 MG tabletIndicatio ns:Insomnia, unspecified type Take 1 tablet (0.25 mg total) by mouth nightly as needed for Anxiety. 15 tablet 4 Active furosemide (LASIX) 80 MG tablet Take 1 tablet (80 mg total) by mouth 4 (four) times a week. On Wednesday, Wednesday, and wednesday 30 tablet 1 4 Active NIFEdipine XL (ADALAT CC) 30 MG 24 hr tablet Take 1 tablet (30 mg total) by mouth daily. 30 tablet 1 4 Active Active Problems Problem Noted Date Diagnosed Date Acute renal failure 05/27/2024 Acute respiratory failure ([facility]) 10/2022 Acute hypercapnic respiratory failure ([facility]) 07/15/2023 Acute on chronic respiratory failure ([facility]) 12/12/2022 Acute on chronic anemia 12/10/2022 Debility 06/20/2021 Chronic diastolic CHF (conge stive heart failure) ([facility]) 04/02/2021 Chronic GERD 04/02/2021 Chronic respiratory failure with hypoxia ([facility]) 04/02/2021 Peripheral neuropathy 04/02/2021 Right knee pain 04/02/2021 Impaired mobility 03/28/2021 Respiratory failure ([facility]) 01/22/2021 Tibia fracture 12/13/2020 At high risk for complication of immobility 07/16 Cellulitis of left lower extremity 08/12/2019 Pain and swelling of left lower leg 08/12/2019 Hydronephrosis, left 08/10/2019 Severe episode of recurrent major depressive disorder, without psychotic features ([facility]) 12/12/2018 Atypical chest pain 12/10/2018 Obstructive sleep apnea 12/10/2018 Paroxysmal atrial fibrillation ([facility]) 12/10/2018 Subclinical hypothyroidism 12/10/2018 Acute respiratory failure with hypoxia ([facility]) 12/01/2018 YAYA (acute kidney injury) 12/01/2018 Aspiration pneumonia ([facility]) 9 Calcium channel wayne overdose 12/01/2018 Encephalopathy, toxic 12/01/2018 Intentional overdose of drug in tablet form ([facility]) 12/01/2018 Neck pain, musculoskeletal 04/19/2018 Overview (08/12/2019): Last Assessment & Plan: Patient's neck pain x6 days turning to the right aggravates the pain she has also mild tension headache. Patient not a candidate for muscle relaxant given the fact she of drug reactions with gabapentin potentially. Patient also has a concurrent sore throat which I do not think is related to her neck pain. She also has some mandibular pain well taking her mouth. At this time recommend meloxicam 15 mg 1 tablet daily. History of pulmonary embolism 03/19/2018 Overview (08/12/2019): Last Assessment & Plan: Patient gives a history of pulmonary embolus less than 3 months ago no [place] details she has had numerous hospitalizations in the past several years. At this time she is on Eliquis 5 mg b.i.d. patient is given sample and the information of on how to potentially get this medication through patient assistance program. Patient advised Eliquis is a minimal 6 months treatment. . Impaired ambulation 03/17/2018 Overview (12/29/2020): Last Assessment & Plan: Inability ambulate is directly related to patient's morbid obesity, morbid obesity was pain addressed 1st step is taking care of her her recurring infected pannus . Decubitus ulcer of left thigh, stage 3 8 Overview (08/12/2019): Last Assessment & Plan: Decubitus precautions. Wound care consult Scabies infestation 01/18/2018 Overview (08/12/2019): Last Assessment & Plan: Extensive scabies infestation. Bed but should be in the differential diagnosis consideration as well. Will start on permethrin. Family members likely need to be treated as well if symptomatic Wound dehiscence, surgical 01/18/2018 Overview (08/12/2019): Last Assessment & Plan: Large area of hysterectomy scar dehiscence. With a huge pannus patient may benefit from the pannus resection to prevent recurrent wounds and infections. Will get plastic surgery consult for further assessment and recommendations. Will get wound care consult Urinary incontinence 12/20/2017 Chronic pain syndrome 10/18/2017 Overview (08/12/2019): Last Assessment & Plan: Patient's referred to pain clinic locally here in town she had an appointment but could not make it because of the unexpected events Medically noncompliant 10/18/2017 Overview (08/12/2019): Last Assessment & Plan: Informed patient today that she would need to comply with this office recommendations on management of her multiple chronic conditions, failure to do so, would mean that she would need to find another primary care provider. Restless leg 10/18/2017 Wound dehiscence 10/18/2017 Overview (08/12/2019): Last Assessment & Plan: Referral given 2 months ago to be seen by wound care. Patient did not follow up with them. Acute gout of left foot 07/20/2017 Overview (08/12/2019): Last Assessment & Plan: Uric acid levels are elevated. Patient previously reported redness and severe swelling of the left and right foot. Not so much significant today. Differential diagnosis considerations should be gout versus plantar fasciitis. Will continue with Toradol for therapeutic and symptomatic control for now Discussed for final diagnosis the CT may need synovial fluid tap however at this point I am not appreciating much of joint effusion. Discussed may need to be on allopurinol after the acute gout attack resolved. Advised to abstain from the alcohol and red meat Bipolar 1 disorder, depressed, mild ([facility]) 07/20/2017 Overview (08/12/2019): Last Assessment & Plan: Patient does not have an appointment with psychiatrist time patient is given referral to Psychiatry. She is stable at this time no ideas of doing harm herself or anyone else and no active hallucinations. Essential hypertension 07/20/2017 Overview (08/12/2019): Last Assessment & Plan: Blood pressure well control no change in therapy Class 3 severe obesity with body mass index (BMI) greater than or equal to 70 in adult 07/20/2017 Overview (08/12/2019): Last Assessment & Plan: Patient's morbid obese body mass index of 70. Her weight is 447 lb she is 5 ft 7 in tall. She has a huge pannus this causes ulcerations in problems with walking and irritation in her legs she informs me that Dr. Panda in [facility] is willing to move this pannus patient referred to this particular physician to address this problem soon as possible. 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 Insomnia 07/20/2017 Overview (08/12/2019): Last Assessment & Plan: Will not fill both trazodone AND ambien, asked patient which one she preferred, she chose Ambien. Rx given. Encouraged patient to f/u through with Psychiatry referral. 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 Referral re-printed. Personality disorder ([facility]) 7 Overview (08/12/2019): Last Assessment & Plan: Psychiatric referral made Recurrent major depressive disorder, in partial remission 07/20/2017 Seizures ([facility]) 07/20/2017 Overview (08/12/2019): Last Assessment & Plan: Patient gives a history of seizure disorder going back several years no seizures in the past 8 months she is on gabapentin patient was previously followed at [facility] in [facility]. Plans continue gabapentin this time Motor tic disorder 12/28/2016 Immunizations Immunization Administration Dates Next Due Afluria 36 MONTHS+ (Prefilled Syringe IIV4) 07/15 Fluzone 6 Months+ Quad (0.5 mL Prefilled Syringe) 06/21/2021(Deferred: Other) Influenza (Generic) 07/19/2017 Influenza Adult (Generic) 12/10/2018,07/20/2017 Pneumococcal (Pneumovax 23) 08/15/2019 Pneumococcal(Ppv 23)Aka Pneumovax 12/20/2016 Family History Medical History Relation Comments CHF Maternal Grandmother CHF Mother Relation Status Comments Brother Alive Father Maternal Grandmother Other Mother Sister Alive Social History Tobacco Use Types Packs/Day Years Used Date Smoking Tobacco: Every Day Cigarettes Smokeless Tobacco: Never Tobacco Cessation:Ready to Q uit: Yes Alcohol Use Standard Drinks/Week Comments No 0 (1 standard drink = 0.6 oz pur e alcohol) B1300 Health Literacy Answer Date Recor ded How often do you need to hav e someone help you when you read instructions, pamphlets, or other written material from your doctor or pharmacy? Always 05/26/2024 [facility] [employer] Answer Date Recorded In the past 12 months has e [employer], gas, oil, or water [employer] threatened to shut off services in your home? No 05/26/2024 Humiliation, Afraid, Rape, a nd Kick questionnaire Answer Date Recorded Within the last year, have y ou been afraid of your partner or ex-partner? Patient unable to answer 05/29/2024 Within the last year, have y ou been humiliated or emotionally abused in other ways by your partner or ex-partner? Patient unable to answer 05/29/2024 Within the last year, have y ou been kicked, hit, slapped, or otherwise physically hurt by your partner or ex-partner? Patient unable to answer 05/29/2024 Within the last year, have y ou been raped or forced to have any kind of sexual activity by your partner or ex-partner? Patient unable to answer 05/29/2024 AUDIT-C Answer Date Recorded Frequency of Alcohol Consumption Never 08/09/2019 Average Number of Drinks Not on file 019 Frequency of Binge Drinking Not on file 07/15 Overall Financial Resource Strain (CARDIA) Answe r Date Recorded How hard is it for you to pa y for the very basics like food, housing, medical care, and heating? Patient unable to answer 05/29/2024 Exercise Vital Sign Answer Date Recorde d On average, how many days pe r week do you engage in moderate to strenuous exercise (like a brisk walk)? 0 days 05/26/2024 On average, how many minutes do you engage in exercise at this level? 0 min 05/26/2024 Hunger Vital Sign Answer Date Recorded Within the past 12 months, y ou worried that your food would run out before you got the money to buy more. Patient unable to answer 05/29/2024 Within the past 12 months, t he food you bought just didn't last and you didn't have money to get more. Patient unable to answer 05/29/2024 PRAPARE - Transportation Answer Date Re corded In the past 12 months, has l ack of transportation kept you from medical appointments or from getting medications? No 05/14 In the past 12 months, has l ack of transportation kept you from meetings, work, or from getting things needed for daily living? No 05/26/2024 Housing Stability Vital Sign Answer Pepe e Recorded In the last 12 months, was t here a time when you were not able to pay the mortgage or rent on time? No 07/20/2023 In the last 12 months, how many places have you lived? 1 07/20/2023 In the last 12 months, was t here a time when you did not have a steady place to sleep or slept in a assisted (including now)? No 07/20/2023 Housing Stability Vital Sign Answer Pepe e Recorded In the last 12 months, was t here a time when you were not able to pay the mortgage or rent on time? Patient unable to answer 05/29/2024 In the past 12 months, how m any times have you moved where you were living? 1 05/29/2024 At any time in the [facility], were you homeless or living in a assisted (including now)? Patient unable to answer 05/29/2024 Comments No Sex and Gender Information Value Date Recorded Sex Assigned at Female 11/28/2024 8:51 AM CDT Legal Sex Female 9:48 PM [employer] Gender Identity Not on file Sexual Orientation Not on file Last Filed Vital Signs Vital Sign Reading Time Taken Comments Blood Pressure 166/88 06/14/2024 12:15 PM CDT Pulse 62 06/14/2024 12:15 PM CDT Temperature 36.4 C (97.5 F) 06/14/2024 12:15 PM CDT Respiratory Rate 18 06/14/2024 12:1 5 PM CDT Oxygen Saturation 97% 06/14/2024 8:57 AM CDT Inhaled Oxygen Concentration - - Weight 176.3 kg (388 lb 9.6 oz) 06/06/2024 5:30 AM CDT Height 162 cm (5' 3.78 ) 05/30/2024 12: 37 AM CDT Body Mass Index 67.16 05/30/2024 12:37 AM CDT Plan of Treatment Health Maintenance Due Date Last Done Comments Hepatitis C 1976 Colorectal Cancer Screening FIT/FOBT (1 Year) 2003 Zoster Vaccines (1 of 2) 2008 RSV Immunization or 60+ Years (1 - Risk 60-74 years 1-dose series) 2018 Mammogram Screening 05/11/2020 05/11/2018 Pneumococcal Vaccine: 50+ Years (2 of 2 - PCV) 08/15/2020 08/15/2019, 12/20/2016 ASCVD LDL 09/19/2020 09/19/2019, 08/11/2019 Annual Medicare Wellness Visit 2023 Dexa Scan (General) 2023 COVID-19 Vaccine (4 - 2023-2 5 season) 2024 08/27/2023, 12/25/2021, 03/21/2021 DTaP, Tdap and Td Vaccines ( 2 - Td or Tdap) 04/30/2031 04/30/2021 Meningococcal B Vaccine Aged Out No l onger eligible based on patient's age to complete this topic Meningococcal Vaccine Aged Out No jesus manuel cristina eligible based on patient's age to complete this topic RSV Immunizations Under 20 Months Aged Out No longer eligible b ased on patient's age to complete this topic Goals Goal Patient Goal Type Associated Problems Recent Progress Patient-Stated? Author Family - family caregiver with be involved in care transitions and discharge planning Lifestyle No Jhoana Montesinos RN Medical Devices Implanted Type Area Blood Tester Fowl Device Identifier Shelf Expiration Date Model / Serial / Lot Nail Shefali Tibial Yellow 09.3 X 34cm - [id number] Implanted:Qty: 1 on 12/15/2020 by Aditya Meyer MD at [facility] Nail Left: [employer] [id number] 10/12/2030 [id number] / / [id number] Plate 1/3 Tubular Shefali 6 Hole - [id number] Implanted:Qty: 1 on 12/15/2020 by Aditya Meyer MD at [facility] Plate Right: [employer] [id number] / / Screw Cortical Shefali Prox Dist F/T 5.0 X 35mm - [id number] Implanted:Qty: 1 on 12/15/2020 by Aditya Meyer MD at [facility] Screw Left: [employer] [id number] 05/04/2030 [id number] / / [id number] Screw Cortical Shefali 3.5 X 55mm - [id number] Implanted:Qty: 1 on 12/15/2020 by Aditya Meyer MD at [facility] Screw Right: [employer] [id number] / / Screw Cortical Shefali 3.5 X 14mm - [id number] Implanted:Qty: 1 on 12/15/2020 by Aditya Meyer MD at [facility] Screw Right: [employer] [id number] / / Screw Cortical Shefali F/T 5.0 X 60mm - [id number] Implanted:Qty: 1 on 12/15/2020 by Aditya Meyer MD at [facility] Screw Left: [employer] [id number] 12/11/2022 [id number] / / [id number] Screw Cortical Shefali Prox Dist F/T 5.0 X 32.5mm - [id number] Implanted:Qty: 1 on 12/15/2020 by Aditya Meyer MD at [facility] Screw Left: [employer] [id number] 05/27/2030 [id number] / / [id number] Screw Cortical Shefali Prox Dist F/T 5.0 X 27.5mm - [id number] Implanted:Qty: 1 on 12/15/2020 by Aditya Meyer MD at [facility] Screw Left: [employer] [id number] 03/12/2030 [id number] / / [id number] Screw Cortical Shefali Prox Dist 5.0 X 42.5mm - [id number] Implanted:Qty: 1 on 12/15/2020 by Aditya Meyer MD at [facility] Screw Left: [employer] [id number] 07/13/2028 [id number] / / [id number] Stent Cook Ureteral Filaform 6 Fr X 24cm - [id number] Implanted:Qty: 1 on 08/11/2019 by See Manzanares MD at [facility] Left: Ureter [employer] 05/30/2022 [id number] / / [id number] 3.5 X 50mm Screw Implanted:Qty: 1 on 12/15/2020 by Aditya Meyer MD at [facility] Right: [employer] [id number] / / 3.5 X 45mm Screw Implanted:Qty: 1 on 12/15/2020 by Aditya Meyer MD at [facility] Right: [employer] [id number] / / Explanted Type Area Blood Tester Fowl Device Identifier Shelf Expiration Date Model / Serial / Lot Drill Bit Shefali 4.3 - [id number] Explanted:Qty: 2 on 12/15/2020 at [facility] Drill Left: [employer] [id number] / / N/A Drill Bit Shefali Tib/Hum Faustino 4.3mm - [id number] Explanted:Qty: 1 on 12/15/2020 by Aditya Meyer MD at [facility] Drill Left: [employer] [id number] / / N/A Drill Bit Shefali 2.5mm - [id number] Explanted:Qty: 1 on 12/15/2020 by Aditya Meyer MD at [facility] Drill Left: [employer] [id number] / / N/A Pin Shefali 3.0mm Threaded - [id number] Explanted:Qty: 2 on 12/15/2020 at [facility] Pin Left: [employer] [id number] / / N/A Ball Nose Guide Wire Explanted:Qty: 1 on 12/15/2020 by Aditya Meyer MD at [facility] Left: Tibia [employer] 10/25/2030 [id number] / / [id number] Procedures Procedure Name Priority Date/Time Associated Diagnosis Comments LIPID PANEL Routine 09/19/2019 11:30 AM [facility] [employer] Essential hypertension History of type 2 diabetes mellitus Hyperlipidemia Atrial fibrillation Anemia from Last 3 Months or Most Recently Relevant to Health Maintenance Results * (ABNORMAL) LIPID PANEL (09/19/2019 11:30 AM [facility] [employer]) CHOLESTEROL 175 <200 MG/DL 09/19/2019 11:52 AM [facility] Comment: THE NATIONAL LIPID ASSOCIATION AND THE NATIONAL CHOLESTEROL EDUCATION PROGRAM (NCEP) HAVE SET THE FOLLOWING GUIDELINES FOR TOTAL CHOLESTEROL IN ADULTS AGES 18 AND UP. DESIRABLE: <200 BORDERLINE HIGH: 200-239 HIGH: > OR = 240 TRIGLYCERIDES 250(H) <150 MG/DL 09/19/2019 11:52 AM [facility] Comment: THE NATIONAL LIPID ASSOCIATION AND THE NATIONAL CHOLESTEROL EDUCATION PROGAM (NCEP) HAVE SET THE FOLLOWING GUIDELINES FOR TRIGLYCERIDES IN ADULTS AGES 18 AND UP. NORMAL: <150 BORDERLINE HIGH: 150 TO 199 HIGH: 200 TO 499 VERY HIGH: >499 HDL 43(L) >49 MG/DL 09/19/2019 11:52 AM [facility] Comment: THE NATIONAL LIPID ASSOCIATION AND THE NATIONAL CHOLESTEROL EDUCATION PROGAM (NCEP) HAVE SET THE FOLLOWING GUIDELINES FOR HDL CHOLESTEROL IN ADULTS AGES 18 AND UP. MALES: >39 FEMALES: >49 LDL (CALCULATED) 82 <100 MG/DL 09/19/19 11:52 AM [facility] Comment: THE NATIONAL LIPID ASSOCIATION AND THE NATIONAL CHOLESTEROL EDUCATION PROGAM (NCEP) HAVE SET THE FOLLOWING GUIDELINES FOR LDL CHOLESTEROL IN ADULTS AGES 18 AND UP. DESIRABLE: <100 ABOVE DESIRABLE: 100 TO 129 BORDERLINE HIGH: 130 TO 159 HIGH: 160 TO 189 VERY HIGH: >189 VLDL CALCULATION 50 MG/DL 09/19/19 11:52 AM [facility] Comment:REFERENCE RANGE NOT ESTABLISHED CHOL/HDL RATIO 4.1 09/19/2019 11:52 AM [facility] Comment:REFERENCE RANGE NOT ESTABLISHED LDL/HDL 1.9 09/19/2019 11:52 AM [facility] [employer] [facility] Comment:REFERENCE RANGE NOT ESTABLISHED NON HDL CHOLESTEROL 132 MG/DL 09/19/2019 11:52 AM [facility] [employer] Comment:REFERENCE RANGE NOT ESTABLISHED 09/19/2019 11:3 0 AM [facility] [employer] [facility] Final Re sult [facility] [address] [place] [address], from Last 3 Months or Most Recently Relevant to Health Maintenance Additional Health Concerns Infection Onset Date Last Indicated MRSA Comment:Added from external infection. 07/28/2022 07/15/2023 ESBL - Extended Spectrum Bet a-lactamase Comment:Added from external infection. Source: 03/26/24 [facility] Health. 03/26/2024 06/03/2024 Insurance AETNA MEDICAID AETNA MEDICAID Advance Directives Documents on File Type Date Recorded Patient Mastic Man Expl anation Advance Directives and Living Will 06/15/2024 10:01 AM Advance Directives and Living Will 05/31/2024 1:18 PM Advance Directives and Living Will 03/08/2023 2:21 PM 08/04/2022 POLST * Full Code (Latest Code Status on File) Date Activated Date Inactivated Comments 06/02/2024 1:37 PM 06/14/2024 5:23 PM * DNR Date Activated Date Inactivated Comments 06/01/2024 7:44 AM 06/02/2024 1:37 PM * POLST Date Activated Date Inactivated Comments 05/31/2024 11:01 AM 06/01/2024 7:44 AM Question Answer Comments Cardiopulmonary Resuscitatio n (CPR) If patient has no pulse and is not breathing: DO NOT Attempt Resuscitation CPR Code Limitations: No Chest Compression No Defibrillation/CardioversionNo Internal/External PacemakerNo Drug Protocol After Arrest OccursNo Mechanical Ventilation with IntubationNo Bag/Mask Medical Interventions when N OT in Cardiopulmonary Arrest (If patient is found with a pulse and/or is breathing): Selective Treatment - Do NOT Intubate Selective Treatment Options: OxygenSucti onCPAP/BIPAPIV FluidsIV Medications Artificially administered nu trition - Offer food by mouth, if feasible and desired: None - No Artificial Nutrition * Full Code Date Activated Date Inactivated Comments 05/26/2024 1:16 AM 05/31/2024 11:00 AM * Full Code Date Activated Date Inactivated Comments 07/14/2023 4:50 PM 07/26/2023 8:30 PM Care Teams Financial Institution President Relationship Specialty [place] [id number] [place], [place] [id number] PCP - General PHYSICIAN COURT MONITOR 03/07/23
--- OUTSIDE RECORDS SUMMARY | 2025-01-13 13:22 | XMS_ITS | Clinical Summary ---
Author Organization [facility] Address [address] [place] [address] Phone Care Team Providers Care Stock Digger Name Role Phone Provider, None Primary Care Provider Unavailabl e Allergies Active Allergy Reactions Criticality Noted Date Comments Penicillins Unknown 12/22/2017 Pt states she doesn't know what happened but she was in the hospital because of it when she was a child Medications naproxen sodium (ANAPROX) 220 MG Tablet Take 220 mg by mouth 2 times daily (with meals). Active gabapentin (NEURONTIN) 100 MG Capsule Take 100 mg by mouth daily. Active zolpidem (AMBIEN) 10 MG Tablet Take 10 mg by mouth nightly as needed. Active ALPRAZolam (XANAX) 0.25 MG Tablet Take 0.5 mg by mouth every 12 hours as needed for Anxiety. 06/13/20 24 Active fluticasone (FLONASE) 50 MCG/ACT Suspension 1-2 Sprays by Nasal route daily. Active OXYGEN CONCENTRATOR 2 L by Does not apply route continuous. Use as directed Active escitalopram (Lexapro) 10 MG Tablet Take 10 mg by mouth daily. Active QUEtiapine (SEROquel) 25 MG Tablet Take 25 mg by mouth daily. Active pramipexole (MIRAPEX) 0.25 MG Tablet Take 0.25 mg by mouth nightly. Active bisacodyl EC (DULCOLAX) 5 MG Tablet Delayed Response Take 5 mg by mouth daily. Active furosemide (LASIX) 40 MG Tablet Take 40 mg by mouth daily. Active oxybutynin (DITROPAN) 5 MG Tablet Take 5 mg by mouth 2 times daily. Active levothyroxine (SYNTHROID) 25 MCG Tablet Take 25 mcg by mouth daily. Active QUEtiapine Fumarate (SEROquel) 50 MG Tablet Take 50 mg by mouth nightly. Active Cholecalciferol (Vitamin D) 2000 UNIT Tablet Take 2,000 Units by mouth daily. Active OXcarbazepine (TRILEPTAL) 150 MG Tablet Take 150 mg by mouth 2 times daily. Active levETIRAcetam (KEPPRA) 500 MG Tablet Take 500 mg by mouth 2 times daily. Active Insulin Aspart (NovoLOG) 100 UNIT/ML Solution by Subcutaneous route 3 times daily (before meals). Per sliding scale: If 70-149= 0 units 150-199= 1 unit 200-249=2 units 250-299=3 units 300-349=4 units 350-500= 5 units Active montelukast (SINGULAIR) 10 MG Tablet Take 10 mg by mouth every evening. Active atorvastatin (Lipitor) 40 MG Tablet Take 40 mg by mouth nightly. Active dilTIAZem (CARDIZEM CD) 180 MG CAPSULE SR 24 HR Take 1 Capsule by mouth daily for 90 days. 90 Capsule 11/30/19 25 025 Active HYDROcodone-acet aminophen (NORCO) 5-325 MG TabletIndication s:Acute respiratory failure with hypoxia and hypercapnia (HCC) Take 1 Tablet by mouth every 8 hours as needed for Moderate or more severe pain. 12 Tablet 11/30/19 25 Active naloxone HCl (Narcan) 4 MG/0.1ML Liquid 1 [place] by Nasal route as needed for Opioid Reversal. Administer in one nostril for symptoms of overdose (severe sleepiness, breathing problems, not responsive). Call 911. May repeat 1 spray in alternate nostril in 2-3 minutes if needed. 2 Each 11/30/19 25 Active baclofen (LIORESAL) 5 MG Tablet Take 0.5 Tablets by mouth every 12 hours as needed for Muscle spasms for up to 90 days. 90 Tablet 09/30/19 25 025 Active Problems Problem Noted Date Diagnosed Date Prediabetes 11/28/2024 End stage renal disease on dialysis 07/01/2024 Acute thoracic back pain 07/01/2024 COPD (chronic obstructive pulmonary disease) Atrial fibrillation Diastolic CHF, chronic Bipolar 1 disorder Anxiety and depression Fibromyalgia Rheumatoid arthritis HTN (hypertension) HLD (hyperlipidemia) Neuromuscular dysfunction of bladder Overview (07/01/2024): chronic indwelling webber Anemia Staghorn renal calculus Resolved Problems Problem Noted Date Diagnosed Date Resolved Date Acute on chronic respiratory failure with hypercapnia 11/25/2024 11/28/2024 Acute metabolic encephalopathy 11/25/2024 11/28/2024 Sepsis 09/27/2024 09/30/2024 Respiratory failure 08/28/2024 08/28/20 24 Acute on chronic respiratory failure with hypoxia and hypercapnia 08/28/2024 08/29/2024 Fluid overload 08/28/2024 08/29/2024 Encounters Date Type Department Care Team Description 11/24/2024 2:12 PM CDT - 11/29/2024 5:35 PM CDT Hospital Encounter [facility] Intensive Care [address] [place] [address] Hilario Gamino MD Patel, Satyen V, MD Acute on chronic respiratory failure with hypercapnia (HCC) Discharge Disposition: Discharged/Transferr ed to SNF 11/24/2024 Travel from Last 3 Months Immunizations Immunization Administration Dates Next Due Pneumococcal conjugate PCV20 , polysaccharide [id number] conjugate, adjuvant, PF 09/30/2024() Social History Tobacco Use Types Packs/Day Years Used Date Smoking Tobacco: Every Day Cigarettes Smokeless Tobacco: Never Tobacco Cessation:Ready to Q uit: Not Asked; Counseling Given: Not Answered Alcohol Use Standard Drinks/Week Comments No 0 (1 standard drink = 0.6 oz pur e alcohol) [facility] Utilities Answer Date Recorded In the past 12 months has [employer], gas, oil, or water [employer] threatened to shut off services in your home? No 11/25/2024 Social Connection and Isolation Panel [NHANES] A nswer Date Recorded In a typical week, how many times do you talk on the phone with family, friends, or neighbors? Patient unable to answer 09/27/2024 How often do you get togethe r with friends or relatives? Patient unable to answer 09/27/2024 How often do you attend [facility] or [facility] services? Patient unable to answer 09/27/2024 Active Member of Clubs or Organizations Not on f ile 09/27/2024 How often do you attend meet ings of the clubs or organizations you belong to? Patient unable to answer 09/27/2024 Are you , , di vorced, , never , or living with a partner? Patient unable to answer 09/27/2024 AUDIT-C Answer Date Recorded Q1: How often do you have a drink containing alcohol? Patient unable to answer 09/27/2024 Q2: How many drinks containi ng alcohol do you have on a typical day when you are drinking? Patient unable to answer Q3: How often do you have si x or more drinks on one occasion? Patient unable to answer 09/27/2024 Overall Financial Resource Strain (CARDIA) Answe r Date Recorded How hard is it for you to pa y for the very basics like food, housing, medical care, and heating? Patient unable to answer 09/27/2024 [facility] - Occupational Stress Questionnaire Answer Date Recorded Do you feel stress - tense, restless, nervous, or anxious, or unable to sleep at night because your mind is troubled all the time - these days? Patient unable to answer 09/27/2024 Exercise Vital Sign Answer Date Recorde d On average, how many days pe r week do you engage in moderate to strenuous exercise (like a brisk walk)? Patient unable to answer 09/27/2024 On average, how many minutes do you engage in exercise at this level? Patient unable to answer 09/27/2024 Hunger Vital Sign Answer Date Recorded Within the past 12 months, y ou worried that your food would run out before you got the money to buy more. Never true 11/26/19 25 Within the past 12 months, t he food you bought just didn't last and you didn't have money to get more. Never true 11/25/2024 PRAPARE - Transportation Answer Date Re corded In the past 12 months, has l ack of transportation kept you from medical appointments or from getting medications? No 11/11 In the past 12 months, has l ack of transportation kept you from meetings, work, or from getting things needed for daily living? No 11/25/2024 Housing Stability Vital Sign Answer Pepe e Recorded In the last 12 months, was t here a time when you were not able to pay the mortgage or rent on time? No 11/25/2024 In the past 12 months, how m any times have you moved where you were living? 1 11/25/2024 At any time in the past 12 m [facility], were you homeless or living in a nursing home (including now)? No 11/25/2024 Comments No Sex and Gender Information Value Date Recorded Sex Assigned at Not on file Legal Sex Female 11:33 AM CDT Gender Identity Not on file Sexual Orientation Not on file Last Filed Vital Signs Vital Sign Reading Time Taken Comments Blood Pressure 120/44 11/29/2024 3:27 PM CDT Pulse 82 11/29/2024 3:00 PM CDT Temperature 36.6 C (97.8 F) 11/29/2024 6:45 AM CDT Respiratory Rate 17 11/29/2024 3:00 PM CDT Oxygen Saturation 100% 11/29/2024 3:00 PM CDT Inhaled Oxygen Concentration - - Weight 189.3 kg (417 lb 6.4 oz) 11/29/2024 6:00 AM CDT Height 170.2 cm (5' 7 ) 11/24/2024 10:3 0 PM CDT Body Mass Index 65.37 11/24/2024 10:30 PM CDT Plan of Treatment Health Maintenance Due Date Last Done Comments DEXA Bone Density 1958 Colonoscopy 2003 Cologuard 2008 Zoster Immunization (1 of 2) 2008 Respiratory Syncytial Virus (RSV) Immunization (Adult) (1 - Risk 60-74 years 1-dose series) 2018 Mammogram 05/11/2019 05/11/2018 Pneumococcal Immunization (50+ years) (3 of 3 - PCV) 08/15/2020 08/15/2019, 12/20/2016 Colorectal Cancer Screening 06/05/2024 SARS-COV-2 Immunization ( - season) 2025 07/21/2024, 08/27/2023, 12/25/2021, Additional history exists Immunochemical Fecal Occult Blood 06/04/2025 06/04/2024, 05/30/2024, 12/11/2022 Pneumococcal Immunization Combined Discontinued 08/15/2019, 12/20/2016 DTaP/Tdap/Td Immunization Discontinued 04/30/2021 TdaP Immunization Completed 04/30/2021 Influenza Immunization Completed , 08/20/2021, 07/03/2021, Additional history exists Hepatitis C Virus (HCV) Screening Completed 11/27/2024, 11/26/2024, 09/28/2024, Additional history exists Hepatitis B Immunization Aged Out No longer eligible based on patient's age to complete this topic Meningococcal Immunization (ACWY) Aged Out No longer eligible based on patient's age to complete this topic Rotavirus Immunization Aged Out No lo nger eligible based on patient's age to complete this topic Procedures Procedure Name Priority Date/Time Associated Diagnosis Comments POCT GLUCOSE Routine 11/29/2024 2:37 PM CDT POCT GLUCOSE Routine 11/29/2024 10:28 AM CDT CBC WITH AUTO DIFFERENTIAL Routine 11/29/2024 3:30 AM CDT COMPLETE BLOOD COUNT (CBC) WITH DIFF Routine 11/29/2024 3:30 AM CDT RENAL FUNCTION PANEL (RFP) Routine 11/29/2024 3:28 AM CDT RHYTHM STRIP 11/29/2024 12:00 AM CDT RHYTHM STRIP 11/29/2024 12:00 AM CDT POCT GLUCOSE Routine 11/28/2024 9:40 PM CDT POCT GLUCOSE Routine 11/28/2024 6:07 PM CDT POCT GLUCOSE Routine 11/28/2024 3:07 PM CDT RENAL FUNCTION PANEL (RFP) Routine 11/28/2024 1:28 PM CDT CULTURE, URINE Routine 11/28/2024 12:56 PM CDT POCT GLUCOSE Routine 11/28/2024 11:28 AM CDT POCT GLUCOSE Routine 11/28/2024 7:44 AM CDT CBC WITH AUTO DIFFERENTIAL Routine 11/28/2024 4:48 AM CDT COMPLETE BLOOD COUNT (CBC) WITH DIFF Routine 11/28/2024 4:48 AM CDT RHYTHM STRIP 11/28/2024 12:00 AM CDT RHYTHM STRIP 11/28/2024 12:00 AM CDT RHYTHM STRIP 11/28/2024 12:00 AM CDT POCT GLUCOSE Routine 11/27/2024 9:05 PM CDT POCT GLUCOSE Routine 11/27/2024 4:21 PM CDT TRANSFUSE RED BLOOD CELLS STAT 11/27/2024 2:09 PM CDT POCT GLUCOSE Routine 11/27/2024 12:04 PM CDT POCT GLUCOSE Routine 11/27/2024 7:46 AM CDT POCT GLUCOSE Routine 11/27/2024 6:21 AM CDT POCT GLUCOSE Routine 11/27/2024 5:31 AM CDT PREPARE RED BLOOD CELLS STAT 11/27/2024 5:26 AM CDT TYPE & SCREEN (CROSSMATCH CONVERTIBLE) Routine 11/27/2024 4:40 AM CDT POCT GLUCOSE Routine 11/27/2024 4:38 AM CDT POCT GLUCOSE Routine 11/27/2024 3:22 AM CDT MINT GREEN, LI HEPARIN/SST TOP TUBE Routine 11/27/2024 2:26 AM CDT CBC WITH AUTO DIFFERENTIAL Routine 11/27/2024 2:26 AM CDT ABO/RH (D) RECHECK Routine 11/27/2024 2: 26 AM CDT HEPATITIS PANEL ACUTE (AHP) Routine 11/27/2024 2:26 AM CDT HEPATITIS B SURFACE ANTIBODY (HBSAB) Routine 11/27/2024 2:26 AM CDT COMPLETE BLOOD COUNT (CBC) WITH DIFF Routine 11/27/2024 2:26 AM CDT RENAL FUNCTION PANEL (RFP) Routine 11/27/2024 2:26 AM CDT POCT GLUCOSE Routine 11/27/2024 2:11 AM CDT POCT GLUCOSE Routine 11/27/2024 1:16 AM CDT POCT GLUCOSE Routine 11/27/2024 12:12 AM CDT RHYTHM STRIP 11/27/2024 12:00 AM CDT RHYTHM STRIP 11/27/2024 12:00 AM CDT BASIC METABOLIC PANEL W/ CALCIUM TOTAL STAT 11/26/2024 11:08 PM CDT POCT GLUCOSE Routine 11/26/2024 11:07 PM CDT BASIC METABOLIC PANEL W/ CALCIUM TOTAL Timed 11/26/2024 10:17 PM CDT POCT GLUCOSE Routine 11/26/2024 10:05 PM CDT POCT GLUCOSE Routine 11/26/2024 9:12 PM CDT POCT GLUCOSE Routine 11/26/2024 8:12 PM CDT POCT GLUCOSE Routine 11/26/2024 7:10 PM CDT INCENTIVE SPIROMETRY RT-INITIAL Routine 11/26/2024 5:26 PM CDT BASIC METABOLIC PANEL W/ CALCIUM TOTAL Timed 11/26/2024 5:05 PM CDT POCT GLUCOSE Routine 11/26/2024 4:47 PM CDT POCT GLUCOSE Routine 11/26/2024 3:34 PM CDT CONTINUOUS AEROSOL TREATMENT-INITIAL Routine 11/26/2024 2:19 PM CDT POCT GLUCOSE Routine 11/26/2024 2:01 PM CDT POCT GLUCOSE Routine 11/26/2024 1:48 PM CDT BASIC METABOLIC PANEL W/ CALCIUM TOTAL Timed 11/26/2024 12:14 PM CDT POCT GLUCOSE Routine 11/26/2024 11:21 AM CDT POCT GLUCOSE Routine 11/26/2024 7:02 AM CDT CBC WITH AUTO DIFFERENTIAL Routine 11/26/2024 4:25 AM CDT COMPLETE BLOOD COUNT (CBC) WITH DIFF Routine 11/26/2024 4:25 AM CDT RENAL FUNCTION PANEL (RFP) Routine 11/26/2024 4:25 AM CDT HEPATITIS PANEL ACUTE (AHP) Routine 11/26/2024 4:25 AM CDT HEPATITIS B CORE TOTAL ANTIBODY Routine 11/26/2024 4:25 AM CDT HEPATITIS B SURFACE ANTIBODY (HBSAB) Routine 11/26/2024 4:25 AM CDT POCT GLUCOSE Routine 11/26/2024 12:23 AM CDT RHYTHM STRIP 11/26/2024 12:00 AM CDT RHYTHM STRIP 11/26/2024 12:00 AM CDT RHYTHM STRIP 11/26/2024 12:00 AM CDT RHYTHM STRIP 11/26/2024 12:00 AM CDT POCT GLUCOSE Routine 11/25/2024 9:50 PM CDT POCT GLUCOSE Routine 11/25/2024 7:07 PM CDT POCT GLUCOSE Routine 11/25/2024 6:00 PM CDT POCT GLUCOSE Routine 11/25/2024 4:39 PM CDT POCT GLUCOSE Routine 11/25/2024 12:22 PM CDT POCT GLUCOSE Routine 11/25/2024 9:47 AM CDT CBC WITH AUTO DIFFERENTIAL Routine 11/25/2024 4:54 AM CDT COMPLETE BLOOD COUNT (CBC) WITH DIFF Routine 11/25/2024 4:54 AM CDT RENAL FUNCTION PANEL (RFP) STAT 11/25/2024 4:54 AM CDT BLOOD GASES, ARTERIAL W/ O2 SATURATION STAT 11/25/2024 4:26 AM CDT RHYTHM STRIP 11/25/2024 12:00 AM CDT RHYTHM STRIP 11/25/2024 12:00 AM CDT RHYTHM STRIP 11/25/2024 12:00 AM CDT BLOOD GASES, VENOUS W/ O2 SATURATION Routine 11/24/2024 7:17 PM CDT AEROSOL NEBULIZER-INITIAL Routine 11/24/2024 5:54 PM CDT TROPONIN I, HIGH SENSITIVITY (HSTRP) STAT 11/24/2024 4:31 PM CDT XR CHEST SINGLE VIEW PORTABLE STAT 11/24/2024 3:52 PM CDT BLOOD GASES, VENOUS W/ O2 SATURATION STAT 11/24/2024 3:35 PM CDT CRITICAL CARE Routine 11/24/2024 3:30 PM CDT CBC WITH AUTO DIFFERENTIAL STAT 11/24/2024 3:30 PM CDT HEMOGLOBIN A1C W/ ESTIMATED GLUCOSE Routine 11/24/2024 3:30 PM CDT TROPONIN I, HIGH SENSITIVITY (HSTRP) STAT 11/24/2024 3:30 PM CDT CMP (COMPREHENSIVE METABOLIC PANEL) STAT 11/24/2024 3:30 PM CDT COMPLETE BLOOD COUNT (CBC) WITH DIFF STAT 11/24/2024 3:30 PM CDT EKG 12 LEAD STAT 11/24/2024 2:23 PM CDT EKG SCAN 11/24/2024 12:00 AM CDT from Last 3 Months Results * (ABNORMAL) POCT Glucose (11/29/2024 2:37 PM CDT) Only the most recent of36 resultswithin the time period is included. [facility] GLUCOSE,BEDSID E POCT 188(H) 70 - 99 mg/dL 11/29/2024 2:43 PM CDT [facility] Comment:Patient RN Performed Blood 11/29/2024 2:37 PM CDT 11/29/2024 2:43 PM CDT us None Provider POINT OF CARE TESTING Final Resu lt [facility] [address] [place], [place] [id number] * (ABNORMAL) CBC with Auto Differential (11/29/2024 3:30 AM CDT) Only the most recent of6 resultswithin the time period is included. [facility] WBC 6.09 4.00 - 12.00 10(3)/mcL 11/29/2024 3:55 AM CDT [facility] RBC 2.67(L) 3.80 - 5.30 10(6)/mcL 11/29/2024 3:55 AM CDT [facility] HEMOGLOBIN (HGB) 8.2(L) 12.0 - 15.8 g/dL 11/29/2024 3:55 AM CDT [facility] HEMATOCRIT (HCT) 25.3(L) 36.0 - 47.0 % 11/29/2024 3:55 AM CDT [facility] MCV 94.8 82.0 - 96.0 fL 11/29/2024 3:55 AM CDT [facility] MCH 30.7 26.0 - 34.0 pg 11/29/2024 3:55 AM CDT [facility] MCHC 32.4 31.0 - 36.0 g/dL 11/29/2024 3:55 AM CDT [facility] PLATELET COUNT 164 140 - 440 10(3)/mcL 11/29/2024 3:55 AM CDT [facility] RDW 16.3(H) 11.8 - 15.5 % 11/29/2024 3:55 AM CDT [facility] MPV 9.8 9.7 - 12.4 fL 11/29/2024 3:55 AM CDT [facility] NEUTROPHILS 65.3 47.0 - 73.0 % 11/29/2024 3:55 AM CDT [facility] LYMPHOCYTES 26.1 18.0 - 42.0 % 11/29/2024 3:55 AM CDT [facility] MONOCYTES 8.4 4.0 - 12.0 % 11/29/2024 3:55 AM CDT [facility] EOSINOPHILS 0.0 0.0 - 5.0 % 11/29/2024 3:55 AM CDT [facility] BASOPHILS 0.2 0.0 - 1.0 % 11/29/2024 3:55 AM CDT [facility] ABSOLUTE NEUTROPHILS 3.98 1.60 - 7.70 10(3)/mcL 11/29/2024 3:55 AM CDT [facility] ABSOLUTE LYMPHOCYTES 1.59 1.30 - 3.20 10(3)/mcL 11/29/2024 3:55 AM CDT [facility] ABSOLUTE MONOCYTES 0.51 0.20 - 1.00 10(3)/[facility] 11/29/2024 3:55 AM CDT [facility] ABSOLUTE EOSINOPHIL 0.00 0.00 - 0.40 10(3)/[facility] 11/29/2024 3:55 AM CDT [facility] ABSOLUTE BASOPHILS 0.01 0.00 - 0.10 10(3)/[facility] 11/29/2024 3:55 AM CDT [facility] NRBC PER 100 WBC 0 11/30/19 25 3:55 AM CDT [facility] Blood Venipuncture / Unknown 11/29/2024 3:30 AM CDT 11/29/2024 3:48 AM CDT us Jose F Addison STONE PRODUCT FABRICATOR, INSTRUMENT MAKER APPRENTICE HEMATOLOGY ORDERABLES F inal Result [facility] [address] [place] [address] * (ABNORMAL) Renal Function Panel (RFP) (11/29/2024 3:28 AM CDT) Only the most recent of5 resultswithin the time period is included. SODIUM 134(L) 136 - 145 mmol/L 11/29/2024 4:19 AM CDT [facility] POTASSIUM 4.4 3.5 - 5.1 mmol/L 11/29/2024 4:19 AM CDT [facility] CHLORIDE 97(L) 98 - 107 mmol/L 11/29/2024 4:19 AM CDT [facility] CO2, VENOUS 27 22 - 30 mmol/L 11/29/2024 4:19 AM CDT [facility] ANION GAP 14.4 <18.0 mmol/L 11/29/2024 4:19 AM CDT [facility] GLUCOSE 174(H) 70 - 99 mg/dL 11/29/2024 4:19 AM CDT [facility] BUN 51(H) 10 - 20 mg/dL 11/29/2024 4:19 AM CDT [facility] CREATININE, BLOOD 3.37(H) 0.60 - 1.00 mg/dL 11/29/2024 4:19 AM CDT [facility] BUN/CREATININE RATIO 15 12 - 20 ratio 11/29/2024 4:19 AM CDT [facility] ALBUMIN 3.5 3.5 - 5.0 g/dL 11/29/2024 4:19 AM CDT [facility] CALCIUM 8.4(L) 8.7 - 10.5 mg/dL 11/29/2024 4:19 AM CDT [facility] PHOSPHORUS 3.8 2.5 - 4.5 mg/dL 11/29/2024 4:19 AM CDT [facility] GFR, ESTIMATED 14(L) >=60 11/29/2024 4:19 AM CDT [facility] Comment: Creatinine Clearance is the preferred criteria for selecting drug dose adjustments in renally impaired patients. The GFR is provided as additional pertinent clinical information. GFR is reported in mL/min/1.73 sq m. Calculation based on the Chronic Kidney Disease Epidemiology Collaboration (CKD- EPI) equation refit without adjustment for race. GFR, EST. 17(L) >=60 2 025 4:19 AM CDT [facility] GFR, EST. NONAFRICAN 14(L) >=60 11/29/2024 4:19 AM CDT [facility] Blood Venipuncture / Unknown 11/29/2024 3:28 AM CDT 11/29/2024 3:48 AM CDT [facility] CHEMISTRY ORDERABLES Final Result Performing Organization Address City/[facility]/ZIP Co de Phone Number [facility] [address] [place] [address] * RHYTHM STRIP (11/29/2024 12:00 AM CDT) Only the most recent of14 resultswithin the time period is included. 11/29/2024 us Provider Scan IMG ECG ORDERABLES Final Result RESULTING AGENCY * Culture, Urine (11/28/2024 12:56 PM CDT) CULTURE RESULTS Mixed Growth or 3 or More Organisms, Probable Collection Contamination, Suggest Repeat 11/30/2024 1:20 AM CDT [facility] Culture URINE SPECIMEN OBTAINED BY CLEAN CATCH PROCEDURE / Unknown Non-Phlebotomy Collection / Unknown 11/28/2024 12:56 PM CDT 11/28/2024 12:57 PM CDT Renetta Thibodeaux MD MICROBIOLOGY - GENERAL ORDERA BLES Final Result Performing Organization Address City/[facility] Co de Phone Number [facility] [address] [place] [address], [place] * Transfuse - Leukoreduced Packed RBCs (11/27/2024 4:34 PM CDT) Renetta Thibodeaux MD NURSING TREATMENT - BLOOD ADM INISTRATION Final Result * PREPARE RED BLOOD CELLS (11/27/2024 5:26 AM CDT) Product Code [id number] [facility] Unit Number [id number] [facility] UNIT_ABO O [facility] UNIT_RH NEG [facility] XM Compatible [facility] BL[facility] D [facility] Dispense Status TRANSFUSED [facility] Blood Expiration Date [id number] [facility] Blood Type Barcode 9500 [facility] Product Volume 300 [facility] Coding System [id number] [facility] B LOOD B[facility] Blood 11/27/2024 5:26 AM CDT 11/27/2024 5:26 AM CDT us Renetta Thibodeaux MD BLOOD BANK ORDERABLES Final R esult [facility] [address] [place] [address] * TYPE & SCREEN (CROSSMATCH CONVERTIBLE) (11/27/2024 4:40 AM CDT) ABO TYPING O 11/27/2024 6:22 AM CDT [facility] RH Positive 11/27/2024 6:22 AM CDT [facility] ABSC Negative 11/27/2024 6:22 AM CDT [facility] Blood Venipuncture / Unknown 11/27/2024 4:40 AM CDT 11/27/2024 5:13 AM CDT us Yadira Estrella APRN, CNP BLOOD BANK ORDERABLES Edited Result - Final [facility] [address] [place] [address] * DEVAUGHN COLINDRES HEPARIN/SST TOP TUBE (11/27/2024 2:26 AM CDT) Blood No Phlebotomy Charged / Unknown 11/27/2024 2:26 AM CDT 11/27/2024 4:47 PM CDT us Lesley Cruz MD HEMATOLOGY ORDERABLES F inal Result [facility] [address] [place] [address], [place] * ABO/RH (D) RECHECK (11/27/2024 2:26 AM CDT) ABO TYPING O 11/27/2024 6:46 AM CDT [facility] RH Positive 11/27/2024 6:46 AM CDT [facility] Blood Venipuncture / Unknown 11/27/2024 2:26 AM CDT 11/27/2024 5:30 AM CDT Esther Somers MD PhD BLOOD BANK ORDERABLES Final Result [facility] [address] [place] [address] * Hepatitis Panel Acute (AHP) (11/27/2024 2:26 AM CDT) Only the most recent of2 resultswithin the time period is included. HEPATITIS A IGM ANTIBODY NON DETECTED NON DETECTED 11/27/2024 4:07 PM CDT [facility] Comment: IGM Antibodies to HAV not detected. Does not exclude early acute or recovered HAV infection. HEP B CORE AB (IGM) NON DETECTED NON DETECTED 11/27/2024 4:07 PM CDT [facility] Comment:IGM anti-HBC not det ected. Does not exclude the possibility of exposure to or infection with HBV. HEPATITIS B SURFACE ANTIGEN NON DETECTED NON DETECTED 11/27/2024 4:07 PM CDT [facility] Comment:A nonreactive test r esult does not exclude the possibility of exposure to or infection with Hepatitis B virus. A nonreactive test result in individuals with prior exposure to hepatitis B may be due to antigen levels below the detection limit of this assay or lack of antigen reactivity to the antibodies in this assay. hepatitis C antibody 0.09 <1 S/CO 11/27/2024 4:07 PM CDT [facility] Comment: Signal/Cutoff ratio < 0.79 is Nondetected Signal/Cutoff ratio 0.80-0.99 is Grayzone Signal/Cutoff ratio > 0.99 is Detected Supplemental assays are recommended if signal/cutoff ratio is >/=1.00. Signal/cutoff ratio result >/= 5.00 is 97% predictive of positivity for recombinant immunoblot assay (RIBA) and will be reported to the [place] [facility] as required. Blood Venipuncture / Unknown 11/27/2024 2:26 AM CDT 11/27/2024 2:31 AM CDT Lesley Cruz MD HEMATOLOGY ORDERABLES F inal Result Performing Organization Address [facility] Co de Phone Number [facility] [address] [place] [address], [place] * Hepatitis B Surface Antibody (HBSAB) (11/27/2024 2:26 AM CDT) Only the most recent of2 resultswithin the time period is included. Pathologist [facility] HEPATITIS B SURFACE ANTIBODY <8.00 mIU/mL 11/27/2024 4:06 PM CDT [facility] Comment:Individual is consid ered not immune to HBV infection. Blood Venipuncture / Unknown 11/27/2024 2:26 AM CDT 11/27/2024 2:31 AM CDT Lesley Cruz MD CHEMISTRY ORDERABLES Fi nal Result Performing Organization Address [facility] de Phone Number [facility] [address] [place] [address], [place] * (ABNORMAL) Basic Metabolic Panel w/ Calcium Total (11/26/2024 11:08 PM CDT) Only the most recent of4 resultswithin the time period is included. SODIUM 130(L) 136 - 145 mmol/L 11/26/2024 11:35 PM CDT [facility] POTASSIUM 5.2(H) 3.5 - 5.1 mmol/L 11/26/2024 11:35 PM CDT [facility] CHLORIDE 94(L) 98 - 107 mmol/L 11/26/2024 11:35 PM CDT [facility] CO2, VENOUS 22 22 - 30 mmol/L 11/26/2024 11:35 PM CDT [facility] ANION GAP 19.2(H) <18.0 mmol/L 11/26/2024 11:35 PM CDT [facility] GLUCOSE 305(H) 70 - 99 mg/dL 11/26/2024 11:35 PM CDT [facility] BUN 68(H) 10 - 20 mg/dL 11/26/2024 11:35 PM CDT [facility] CREATININE, BLOOD 5.62(H) 0.60 - 1.00 mg/dL 11/26/2024 11:35 PM CDT [facility] BUN/CREATININE RATIO 12 12 - 20 ratio 11/26/2024 11:35 PM CDT [facility] CALCIUM 8.7 8.7 - 10.5 mg/dL 11/26/2024 11:35 PM CDT [facility] GFR, ESTIMATED 8(L) >=60 11/26/2024 11:35 PM CDT [facility] Comment: Creatinine Clearance is the preferred criteria for selecting drug dose adjustments in renally impaired patients. The GFR is provided as additional pertinent clinical information. GFR is reported in mL/min/1.73 sq m. Calculation based on the Chronic Kidney Disease Epidemiology Collaboration (CKD- EPI) equation refit without adjustment for race. GFR, EST. 9(L) >=60 025 11:35 PM CDT [facility] GFR, EST. NONAFRICAN 8(L) >=60 11/26/2024 11:35 PM CDT [facility] Blood Venipuncture / Unknown 11/26/2024 11:08 PM CDT 11/26/2024 11:10 PM CDT us Yadira Estrella STONE PRODUCT FABRICATOR, INSTRUMENT MAKER APPRENTICE CHEMISTRY ORDERABLES Final Result [facility] [address] [place] [address] * HEPATITIS B CORE TOTAL ANTIBODY (11/26/2024 4:25 AM CDT) HEP B CORE TOTAL (IGM, IGG) BKR NON DETECTED NON DETECTED 11/26/2024 3:44 PM CDT [facility] Blood Venipuncture / Unknown 11/26/2024 4:25 AM CDT 11/26/2024 6:08 AM CDT us Renetta Thibodeaux MD CHEMISTRY ORDERABLES Final Re sult [facility] [address] [place] [address], [place] * (ABNORMAL) Blood Gases, Arterial w/ O2 Saturation (11/25/2024 4:26 AM CDT) O2 STATUS BIPAP 22/6/18/30% 11/25/2024 4:30 AM CDT [facility] PH ARTERIAL 7.36 7.35 - 7.45 11/25/2024 4:30 AM CDT [facility] PC02 (ARTERIAL) 53(H) 35 - 45 mmHg 11/25/2024 4:30 AM CDT [facility] PO2 (ARTERIAL) 84 75 - 100 mmHg 11/25/2024 4:30 AM CDT [facility] O2 SAT ART, MEASURED 98 94 - 100 % 11/25/2024 4:30 AM CDT [facility] BASE ARTERIAL 4.2(H) -2.0 - 2.0 mmol/L 11/25/2024 4:30 AM CDT [facility] BICARBONATE 29.9(H) 22.0 - 26.0 mmol/L 11/25/2024 4:30 AM CDT [facility] KARMEN'S TEST RESULTS Positive - Right Radial 11/25/2024 4:30 AM CDT [facility] CARBOXYHEMOGLOBIN 1.0 0.0 - 5.0 % 11/25/2024 4:30 AM CDT [facility] METHEMOGLOBIN 0.3 0.0 - 1.5 % 11/25/2024 4:30 AM CDT [facility] ART Blood Gas Arterial Punctur e / Unknown 11/25/2024 4:26 AM CDT 11/25/2024 4:26 AM CDT Fuentes Persaud MD CHEMISTRY ORDERABLES Final Result [facility] [address] [place] [address] * (ABNORMAL) Blood Gases, Venous w/ O2 Saturation (11/24/2024 7:17 PM CDT) Only the most recent of2 resultswithin the time period is included. O2 STATUS . 11/24/2024 7:24 PM CDT [facility] PH VENOUS 7.31(L) 7.34 - 7.43 11/24/2024 7:24 PM CDT [facility] PCO2 (VENOUS) 61(H) 41 - 51 mmHg 11/24/2024 7:24 PM CDT [facility] PO2 VENOUS 57(H) 30 - 50 mmHg 11/24/2024 7:24 PM CDT [facility] O2 SAT LOR, MEASURED 80 60 - 85 % 11/11 7:24 PM CDT [facility] BICARBONATE 31.5(H) 22.0 - 26.0 mmol/L 11/24/2024 7:24 PM CDT [facility] BASE VENOUS 4.8(H) -2.0 - 3.0 mmol/L 11/24/2024 7:24 PM CDT [facility] CARBOXYHEMOGLOBIN 3.1 0.0 - 5.0 % 11/24/2024 7:24 PM CDT [facility] METHEMOGLOBIN 0.4 0.0 - 1.5 % 11/24/2024 7:24 PM CDT [facility] LOR Blood Gas Venipuncture / Unknown 11/24/2024 7:17 PM CDT 11/24/2024 7:17 PM CDT Narrative [facility] - 11/24/2024 7:24 PM CDT Interpretation - The usual approach to interpreting a VBG consists of using the venous measurements to estimate the corresponding arterial values, then using these estimated values for clinical decision-making exactly as if an ABG had been performed. The difference between the venous measurements and the arterial measurements depends upon the site of venous sampling and varies among laboratories. Correlation with arterial blood gases - Although arterial blood gas analysis is more accurate than venous analysis for the assessment of oxygenation, measurement of PCO2, pH, and HCO3 are similar with some minor adjustments: The central venous pH is usually 0.03 to 0.05 pH units lower than the arterial pH and the PCO2 is usually 4 to 5 mmHg higher, with little or no increase in HCO3. Mixed venous blood (ie, SvO2 drawn from a pulmonary artery catheter) gives results similar to central venous blood (ie, ScvO2 drawn from a central venous catheter). The peripheral venous pH is approximately 0.02 to 0.04 pH units lower than the arterial pH, the venous serum HCO3 concentration is approximately 1 to 2 meq/L higher, and the venous PCO2 is approximately 3 to 8 mmHg higher. There are no venous to arterial conversions for ScvO2, SvO2, or peripheral venous oxyhemoglobin saturation (PvO2). Importantly, sufficient variability between arterial and venous blood gas values may exist such that periodic correlation between arterial and venous blood gas values is always prudent. Fuentes Persaud MD CHEMISTRY ORDERABLES Final Result [facility] [address] [place] [address] * (ABNORMAL) TROPONIN I, HIGH SENSITIVITY (HSTRP) (11/24/2024 4:31 PM CDT) Only the most recent of2 resultswithin the time period is included. Pathologist [facility] TROPONIN I, HIGH SENSITIVITY- [facility] 28(H) <=14 ng/L 11/24/2024 6:09 PM CDT [facility] Comment: High-sensitivity troponin I results are reported in ng/L making the result appear to be 1,000 times higher than the contemporary troponin I value which is reported in ng/ml. Results from [facility]. Blood Venipuncture / Unknown 11/24/2024 4:31 PM CDT 11/24/2024 5:44 PM CDT us Hilario Gamino MD CHEMISTRY ORDERABLES Final Result [facility] [address] [place] [address] * XR CHEST SINGLE VIEW PORTABLE (11/24/2024 3:52 PM CDT) Anatomical Region Laterality Modality Chest N/A Computed Radiogr aphy 11/24/2024 7:05 PM CDT Impressions 11/24/2024 7:08 PM CDT IMPRESSION: Limited exam with persistent retrocardiac opacity similar to 09/27/2024. Narrative 11/24/2024 7:08 PM CDT EXAM DESCRIPTION: XR CHEST SINGLE VIEW PORTABLE REASON FOR STUDY: pt c/o lethargic during dialysis today. pt normally get dialysis daily but missed twice this week. Hx pof COPD, a-fib, and HTN TECHNIQUE: Single-view COMPARISON: 09/27/2024 FINDINGS: Rotation obscures mediastinal and hilar structures. Central catheter projects over expected position SVC near cavoatrial junction. Right lung is well expanded. Left lung is obscured with a retrocardiac opacity similar to 09/27/2024. THIS IS AN ELECTRONICALLY VERIFIED FINAL REPORT 11/24/2024 7:05 PM - Electronically signed by Jason Russell M.D. RB: NESHA Report ID: [id number] Reading Location: [id number] Procedure Note Jason Russell MD - 11/24/2024 EXAM DESCRIPTION: XR CHEST SINGLE VIEW PORTABLE REASON FOR STUDY: pt c/o lethargic during dialysis today. pt normally get dialysis daily but missed twice this week. Hx pof COPD, a-fib, and HTN TECHNIQUE: Single-view COMPARISON: 09/27/2024 FINDINGS: Rotation obscures mediastinal and hilar structures. Central catheter projects over expected position SVC near cavoatrial junction. Right lung is well expanded. Left lung is obscured with a retrocardiac opacity similar to 09/27/2024. THIS IS AN ELECTRONICALLY VERIFIED FINAL REPORT 11/24/2024 7:05 PM - Electronically signed by Jason Russell M.D. RB: NESHA Report ID: [id number] Reading Location: [id number] IMPRESSION: Limited exam with persistent retrocardiac opacity similar to 09/27/2024. Result [facility] Hilario Gamino MD IMG DIAGNOSTIC ORDERABLES Final Result * Critical Care (11/24/2024 3:30 PM CDT) Narrative Hilario Gamino MD - 11/24/2024 3:30 PM CDT Hilario Gamino MD 11/24/2024 5:42 PM Critical Care Performed by: Hilario Gamino MD Authorized by: Hilario Gamino MD Critical care provider statement: Critical care time (minutes): 35 Critical care was necessary to treat or prevent imminent or life-threatening deterioration of the following conditions: Respiratory failure Critical care was time spent personally by me on the following activities: Development of treatment plan with patient or surrogate, discussions with consultants, discussions with primary provider, evaluation of patient's response to treatment, examination of patient, obtaining history from patient or surrogate, ordering and performing treatments and interventions, ordering and review of laboratory studies, ordering and review of radiographic studies, pulse oximetry, re-evaluation of patient's condition and review of old charts I assumed direction of critical care for this patient from another provider in my specialty: no Care discussed with: admitting provider Result [facility] Hilario Gamino MD PROCEDURE/MINOR SURGICAL O RDERABLES Final Result * Hemoglobin A1C (11/24/2024 3:30 PM CDT) HGB-A1C 5.7 4.0 - 6.0 % 11/25/2024 12:07 PM CDT [facility] Est Average Glucose 116.9 mg/dL 11/25/2024 12:07 PM CDT [facility] Blood Venipuncture / Unknown 11/24/2024 3:30 PM CDT 11/24/2024 3:38 PM CDT Narrative [facility] - 11/25/2024 12:07 PM CDT HEMOGLOBIN A1C: DIABETIC PATIENTS: WELL-CONTROLLED: 6.2 - 7.0 INTERMEDIATE WELL-CONTROLLED: 7.0 - 9.0 POORLY-CONTROLLED: >9.0 Specimens containing greater than 5% of Hemoglobin F may result in lower than expected % HbA1C results. Fuentes Persaud MD CHEMISTRY ORDERABLES Final Result [facility] [address] [place] [address] * (ABNORMAL) CMP (11/24/2024 3:30 PM CDT) SODIUM 134(L) 136 - 145 mmol/L 11/24/2024 4:00 PM CDT [facility] POTASSIUM 4.3 3.5 - 5.1 mmol/L 11/24/2024 4:00 PM CDT [facility] CHLORIDE 95(L) 98 - 107 mmol/L 11/24/2024 4:00 PM CDT [facility] CO2, VENOUS 25 22 - 30 mmol/L 11/24/2024 4:00 PM CDT [facility] ANION GAP 18.3(H) <18.0 mmol/L 11/24/2024 4:00 PM CDT [facility] GLUCOSE 170(H) 70 - 99 mg/dL 11/24/2024 4:00 PM CDT [facility] BUN 26(H) 10 - 20 mg/dL 11/24/2024 4:00 PM CDT [facility] CREATININE, BLOOD 4.06(H) 0.60 - 1.00 mg/dL 11/24/2024 4:00 PM CDT [facility] BUN/CREATININE RATIO 6(L) 12 - 20 ratio 11/24/2024 4:00 PM CDT [facility] TOTAL PROTEIN 6.9 6.0 - 8.0 g/dL 11/24/2024 4:00 PM CDT [facility] ALBUMIN 3.9 3.5 - 5.0 g/dL 11/24/2024 4:00 PM CDT [facility] A/G RATIO 1.3 1.0 - 2.2 11/24/2024 4:00 PM CDT [facility] CALCIUM 9.5 8.7 - 10.5 mg/dL 11/24/2024 4:00 PM CDT [facility] T BILI 0.4 0.2 - 1.2 mg/dL 11/24/2024 4:00 PM CDT [facility] SGOT (AST) 21 <43 U/L 11/24/2024 4:00 PM CDT [facility] SGPT (ALT) 23 <56 U/L 11/24/2024 4:00 PM CDT [facility] ALKALINE PHOSPHATASE 89 40 - 150 U/L 11/24/2024 4:00 PM CDT [facility] GFR, ESTIMATED 12(L) >=60 11/24/2024 4:00 PM CDT [facility] Comment: Creatinine Clearance is the preferred criteria for selecting drug dose adjustments in renally impaired patients. The GFR is provided as additional pertinent clinical information. GFR is reported in mL/min/1.73 sq m. Calculation based on the Chronic Kidney Disease Epidemiology Collaboration (CKD- EPI) equation refit without adjustment for race. GFR, EST. 13(L) >=60 11/24/ 025 4:00 PM CDT [facility] GFR, EST. NONAFRICAN 11(L) >=60 11/24/2024 4:00 PM CDT [facility] Blood Venipuncture / Unknown 11/24/2024 3:30 PM CDT 11/24/2024 3:38 PM CDT us Hilario Gamino MD CHEMISTRY ORDERABLES Final Result [facility] [address] [place] [address] * EKG 12 LEAD (11/24/2024 2:23 PM CDT) Ventricular Rate 76 BPM EXTERNAL EKG Atrial Rate 76 BPM EXTERNAL EKG P-R Interval 202 ms EXTERNAL EKG QRS Duration 98 ms EXTERNAL EKG Q-T Duration 418 ms EXTERNAL EKG QTC CALCULATION 470 ms EXTERNAL EKG P Collins 71 degrees EXTERNAL EKG R Collins 52 degrees EXTERNAL EKG T Collins 76 degrees EXTERNAL EKG 11/24/2024 2:23 PM CDT Impressions EXTERNAL EKG - 11/27/2024 10:18 PM CDT Normal sinus rhythm Low voltage QRS Borderline ECG When compared with ECG of 27-SEP-2024 09:19, QRS duration has decreased Non-specific change in ST segment in Inferior leads T wave inversion no longer evident in Inferior leads QT has shortened Confirmed by Steph Burks ([id number]) on 11/27/2024 10:18:47 PM Narrative Procedure Note Steph Burks DO - 11/27/2024 IMPRESSION: Normal sinus rhythm Low voltage QRS Borderline ECG When compared with ECG of 27-SEP-2024 09:19, QRS duration has decreased Non-specific change in ST segment in Inferior leads T wave inversion no longer evident in Inferior leads QT has shortened Confirmed by Steph Burks ([id number]) on 11/27/2024 10:18:47 PM us Hilario Gamino MD IMG ECG ORDERABLES Final R esult EXTERNAL EKG * EKG SCAN (11/24/2024 12:00 AM CDT) 11/24/2024 us Provider Scan IMG ECG ORDERABLES Final Result RESULTING AGENCY from Last 3 Months Additional Health Concerns Infection Onset Date Last Indicated ESBL Comment:Added from external infection. Source: [facility]. 11/02/2024 Insurance MEDICAID [place] MED[place] C [employer] Advance Directives * Full Code (Latest Code Status on File) Date Activated Date Inactivated Comments 11/24/2024 7:57 PM CPR-Full Treat ment: FULL ARREST: Attempt Resuscitation/CPR wit intubation and mechanical ventilation. PRE-ARREST: Use entire range of life support measures to stabilize the patient. * Full Code Date Activated Date Inactivated Comments 09/30/2024 10:56 AM 11/24/2024 7:57 PM CPR-Full Tr eatment: FULL ARREST: Attempt Resuscitation/CPR wit intubation and mechanical ventilation. PRE-ARREST: Use entire range of life support measures to stabilize the patient. * Full Code Date Activated Date Inactivated Comments 08/29/2024 9:34 AM 09/30/2024 10:56 AM CPR-Full T reatment: FULL ARREST: Attempt Resuscitation/CPR wit intubation and mechanical ventilation. PRE-ARREST: Use entire range of life support measures to stabilize the patient. * Full Code Date Activated Date Inactivated Comments 07/01/2024 3:08 AM 08/29/2024 9:34 AM CPR-Full T reatment: FULL ARREST: Attempt Resuscitation/CPR wit intubation and mechanical ventilation. PRE-ARREST: Use entire range of life support measures to stabilize the patient. Care Teams Stock Digger Relationship Specialty Start Date End Date Provider, None [place] PCP - General 11/24/24
--- OUTSIDE RECORDS SUMMARY | 2025-01-13 13:22 | XMS_ITS | Encounter Summary ---
Author Organization [facility] Address [address] [place] [address] Phone Care Team Providers Care Gameplay Programmer Name Role Phone Provider, None Primary Care Provider Unavailabl e Encounter Details Date Type Department Care Team (Late st Contact Info) Description 10/06/2024 Telephone [facility] [address] [place] [phone] Satish Fontanez MD [address] [facility] [address] [place] [address] Social History Tobacco Use Types Packs/Day Years Used Date Smoking Tobacco: Every Day Cigarettes Smokeless Tobacco: Never Alcohol Use Standard Drinks/Week Comments No 0 (1 standard drink = 0.6 oz pur e alcohol) [facility] Utilities Answer Date Recorded In the past 12 months has e [employer] technology, gas, oil, or water [employer] threatened to shut off services in your home? Patient unable to answer 09/27/2024 Social Connection and Isolation Panel [NHANES] A nswer Date Recorded In a typical week, how many times do you talk on the phone with family, friends, or neighbors? Patient unable to answer 09/27/2024 How often do you get togethe r with friends or relatives? Patient unable to answer 09/27/2024 How often do you attend chur ch or pentecostalism services? Patient unable to answer 09/27/2024 Active [...] and heating? Patient unable to answer 09/27/2024 [facility] - Occupational Stress Questionnaire Answer Date Recorded [...] to buy more. Patient unable to answer 09/27/2024 Within the past 12 months, t he food you bought just didn't last and you didn't have money to get more. Patient unable to answer 09/27/2024 PRAPARE - Transportation Answer Date Re corded In the past 12 months, has l ack of transportation kept you from medical appointments or from getting medications? Patient unable to answer 09/27/2024 In the past 12 months, has l ack of transportation kept you from meetings, work, or from getting things needed for daily living? Patient unable to answer 09/27/2024 Housing Stability Vital Sign Answer Pepe e Recorded In the last 12 months, was t here a time when you were not able to pay the mortgage or rent on time? Patient unable to answer 09/27/2024 In the past 12 months, how m any times have you moved where you were living? 1 09/27/2024 At any time in the past [address] [facility], were you homeless or living in a prison (including now)? Patient unable to answer 09/27/2024 Comments No Sex and Gender Information Value [...] Infection Onset Date Last Indicated Resolved Time ESBL Comment:Added from external infection. Source: [facility]. 03/26/2024 08/28/2024 11/27/2024 8:53 A M CDT MRSA 07/01/2024 07/01/2024 11/28/2024 8:31 AM CDT ESBL Comment:Added from external infection. Source: [facility]. 11/02/2024 documented as of this encounter Care Teams Gameplay Programmer Relationship Specialty Start Date End Date Provider, None [place] PCP - General 11/24/24 documented as of this encounter
--- OUTSIDE RECORDS SUMMARY | 2025-01-13 13:22 | XMS_ITS | Encounter Summary ---
Author Organization [facility] Address [address] [place] [address] Phone Care Team Providers Care Creative Coordinator Name Role Phone No, Physician Primary Care Provider [phone] Encounter Details Date Type Department Care Team (Late st Contact Info) Description 01/12/2025 Telephone [facility] [address] [facility] 11th [place] [address] [place] [address] Larissa Lopez MD [address] [facility] [place] [address] Social History Tobacco Use Types Packs/Day Years Used Date Smoking Tobacco: Former Cigarettes Smokeless Tobacco: Never Alcohol Use Standard Drinks/Week Comments Yes 0 (1 standard drink = 0.6 oz pur e alcohol) Occasional C Utilities Answer Date Recorded In the past 12 months has [employer] electric, gas, oil, or water company threatened to shut off services in your home? No 11/03/2024 Social Connection and Isolat ion Panel [NHANES] Answer Date Recorded In a typical week, how many times do you talk on the phone with family, friends, or neighbors? More than three times a week 11/03/2024 How often do you get togethe r with friends or relatives? Once a week 11/03/2024 How often do you attend chur ch or confucianist services? Never 11/03/2024 Do you belong to any clubs o r organizations such as temple groups, unions, fraternal or athletic groups, or school groups? No 11/03/2024 How often do you attend meet ings of the clubs or organizations you belong to? Never 11/03/2024 Are you , , di vorced, , never , or living with a partner? 11/03/2024 AUDIT-C Answer Date Recorded Q1: How often do you have a drink containing alcohol? Never 10/06/2024 Q2: How many drinks containi ng alcohol do you have on a typical day when you are drinking? Patient does not drink Q3: How often do you have si x or more drinks on one occasion? Never 10/06/2024 Overall Financial Resource Strain (CARDIA) Answe r Date Recorded How hard is it for you to pa y for the very basics like food, housing, medical care, and heating? Somewhat hard 11/03/2024 PHQ-2 Answer Date Recorded PHQ-2 Total Score 6 07/30/2022 Hunger Vital Sign Answer Date Recorded Within the past 12 months, y ou worried that your food would run out before you got the money to buy more. Often true Within the past 12 months, t he food you bought just didn't last and you didn't have money to get more. Sometimes true PRAPARE - Transportation Answer Date Re corded In the past 12 months, has l ack of transportation kept you from medical appointments or from getting medications? No 10/15 In the past 12 months, has l ack of transportation kept you from meetings, work, or from getting things needed for daily living? No 11/03/2024 Housing Stability Vital Sign Answer Pepe e Recorded In the last 12 months, was t here a time when you were not able to pay the mortgage or rent on time? No 07/30/2022 In the last 12 months, how many places have you lived? 1 07/30/2022 In the last 12 months, was t here a time when you did not have a steady place to sleep or slept in a m[facility]p (including now)? No 07/30/2022 Housing Stability Vital Sign Answer Pepe e Recorded In the last 12 months, was t here a time when you were not able to pay the mortgage or rent on time? No 11/03/2024 In the past 12 months, how m any times have you moved where you were living? 0 11/03/2024 At any time in the past 12 m [place], were you homeless or living in a mcfp (including now)? No 11/03/2024 Personal Safety Answer Date Recorded Have you ever been in or are you currently in a harmful physical or emotional relationship or is someone making you feel afraid or unsafe? Denies 11/07/2024 Education Answer Date Recorded What is the highest level of school you have completed or the highest degree you have received? Some college, no degree 10/17/2024 Comments No Sex and Gender Information Value Date Recorded Sex Assigned at Not on file Legal Sex Female 12:08 PM CDT Gender Identity Not on file Sexual Orientation Not on file Occupation Industry Job Start Date Job End Date disabled Not on file Not on file Not on file documented as of this encounter Miscellaneous Notes * Telephone Encounter - Larissa Lopez MD - 01/12/2025 10:17 AM CDT Tried calling every number in the patients chart not accepting calls Left message with [facility] documented in this encounter Plan of Treatment Not on file documented as of this encounter Visit Diagnoses Not on filedocumented in this encounter Additional Health Concerns Infection Onset Date Last Indicated Resolved Time MDR gram neg/ESBL 11/02/2024 11/02/2024 documented as of this encounter Care Teams Creative Coordinator Relationship Specialty Start Date End Date No, Physician PCP - General 07/27/22 documented as of this encounter
--- OUTSIDE RECORDS SUMMARY | 2025-01-13 13:23 | XMS_ITS | Clinical Summary ---
Author Organization [facility] Address [address] [place] [address] Care Team Providers Care Senior Technical Project Manager Name Role Phone Terri Balderas MD Primary Care Provider [phone] Source Comments [facility] ([facility]),non-owned Affiliates and Associated Physician Practices is amultiple site organization consisting of ambulatory clinics and hospital sitesin [place], [place], [place] and [place]. This disclosure is being madepursuant to the Care Everywhere program and may not contain all information available regarding this patient. Last updated 18.[facility] Allergies Active Allergy Reactions Criticality Noted Date Comments Penicillins Unknown Medium 08/10/2017 Pt states she doesn't know what happened but she was in the hospital because of it when she was a child Has tolerated cephalosporins in the past Unknown reaction as a child Patient Stated That she took Amoxicillin prescription picked up from [facility] on 05/19/19 with no problems. -08/10/19 Misael Gomez, Jasmyn Medications * Be aware that medications may not be up to date on this document. Alwaysverify current medications with the patient. ARIPiprazole (Abilify) 2 MG tabletIndicatio ns:Bipolar disorder Take 1 (one) tablet by mouth at bedtime Reasons: Bipolar disorder Active acetaminophen (Tylenol) 325 MG tablet Take 2 (two) tablets by mouth every 4 hours as needed for Fever or Pain Maximum allowable Acetaminophen amount = 4 Grams (4000 mg) / 24 hours. Active atorvastatin (Lipitor) 40 MG tablet Take 1 (one) tablet by mouth at bedtime Active bisacodyl (Dulcolax) 10 MG suppository Insert 1 (one) suppository into the rectum once daily as needed for Constipation Active fluticasone-leobardo anterol (Breo Ellipta) 200-25 MCG/ACT inhaler Inhale 1 (one) puff by mouth once daily Active budesonide (Pulmicort) 0.5 MG/2ML nebulizer suspension Inhale 2 mL by mouth once daily Active diphenhydrAMINE (Benadryl) 25 MG capsule Take 1 (one) capsule by mouth at bedtime For itching/rash Active ferrous sulfate 325 (65 FE) MG tablet Take 1 (one) tablet by mouth once daily Active saccharomyces (Florastor) 250 MG packet Take 1 (one) packet by mouth 2 times daily Active fluticasone propionate (Flonase) 50 MCG/ACT nasal spray Glasgow 1 (one) spray into each nostril 2 times daily Active gabapentin (Neurontin) 100 MG capsule Take 1 (one) capsule by mouth 3 times daily Active polyethylene glycol 3350 (Miralax) 17 GM/SCOOP powder Take 17 (seventeen) g by mouth once daily Active HYDROcodone-rosa taminophen ([place]) 5-325 MG tablet Take 1 (one) tablet by mouth 2 times daily as needed for Pain Active insulin aspart (NovoLOG) vial Inject 0 (zero) Units to 4 (four) Units subcutaneously 3 times daily with meals BG <150 = 0 units BG 150-199 = 1 unit BG 200-249 = 2 units BG 250-299 = 3 units BG 300-349 = 4 units BG >350 = call MD Active albuterol-iprat ropium (Duo-Neb) 0.5-2.5 (3) MG/3ML nebulizer solution Inhale 3 mL by mouth every 2 hours as needed for Shortness of Breath or Wheezing Active levETIRAcetam (Keppra) 500 MG tablet Take 1 (one) tablet by mouth 2 times daily Active Magnesium Hydroxide (MILK OF MAGNESIA PO) Take 30 mL by mouth once daily as needed (constipation) Active OXcarbazepine (Trileptal) 150 MG tablet Take 1 (one) tablet by mouth 2 times daily Active oxyBUTYnin (Ditropan) 5 MG tablet Take 1 (one) tablet by mouth 3 times daily Active prazosin (Minipress) 2 MG capsule Take 1 (one) capsule by mouth at bedtime Active pantoprazole (Protonix) 40 MG packet Take 1 (one) packet by mouth once daily Active sertraline (Zoloft) 100 MG tablet Take 2 (two) tablets by mouth once daily Active miconazole (Lotrimin Af) 2 % powder Apply to affected area 2 times daily Apply to inguinal folds Active lidocaine (Lidoderm) 4 % patch Apply 1 (one) patch to skin once daily Apply patch to most painful area and remove after 12 hours. May reapply a new patch 12 hours later. Active SALINE NASAL SPRAY NA Glasgow 2 sprays into the nose every 6 hours as needed (nasal congestion) Active sucralfate (Carafate) 1 GM tablet Take 1 (one) tablet by mouth 4 times daily - before meals & nightly Active ascorbic acid (Vitamin C) 250 MG tablet Take 2 (two) tablets by mouth once daily Active zinc sulfate (Zincate) 220 (50 ZN) MG capsule Take 1 (one) capsule by mouth once daily Active metoprolol succinate XL 24hr (Toprol XL) 25 MG tablet Take 1 (one) tablet by mouth 2 times daily 04/03/20 24 Active hydrOXYzine HCl (Atarax) 25 MG tablet Take 1 (one) tablet by mouth 3 times daily as needed for Itching (anxiety) 04/03/20 24 Active insulin glargine (Lantus/Semglee ) 100 units/ml injection Inject 10 (ten) Units subcutaneously at bedtime 04/08/20 24 Active bumetanide (Bumex) 2 MG tablet Take 0.5 (one-half) tablet by mouth once daily 04/08/20 24 Active folic acid (Folvite) 1 MG tablet Take 1 (one) tablet by mouth once daily 04/09/20 24 Active polyethylene glycol (Golytely) 236 g solution 2 DAYS BEFORE COLONOSCOPY: Drink 1st jug of prep, all throughout the day, finishing before bedtime. 1 DAY BEFORE COLONOSCOPY: Drink 1/2 of 2nd jug at 6 pm, finish the jug at 6 am the morning of colonoscopy. 8000 mL 04/12/20 24 Active amLODIPine (Norvasc) 10 MG tablet Take 1 (one) tablet by mouth once daily Active dilTIAZem (Cardizem) 90 MG tablet Take 1 (one) tablet by mouth once daily Active furosemide (Lasix) 40 MG tablet Take 1 (one) tablet by mouth every morning Active naproxen sodium (Aleve) 220 MG tablet Take 1 (one) tablet by mouth 2 times daily with morning and evening meal Active OLANZapine (ZyPREXA) 10 MG tablet Take 1 (one) tablet by mouth at bedtime Active QUEtiapine (SEROquel) 50 MG tablet Take 1 (one) tablet by mouth at bedtime Active rivaroxaban (Xarelto) 20 MG tablet 1 (one) tablet once daily Active senna-docusate (Senokot-S) 8.6-50 MG tablet Take 2 (two) tablets by mouth 2 times daily Active zolpidem (Ambien) 10 MG tablet Take 1 (one) tablet by mouth Active traZODone (Desyrel) 150 MG tablet 07/05/20 Active Active Problems Problem Noted Date Diagnosed Date COPD exacerbation 2024 Acute on chronic respiratory failure with hypoxia and hypercapnia 2024 Septic shock 2024 Stage 3 chronic kidney disease 2024 YAYA (acute kidney injury) 2024 Morbid obesity 2024 PTSD (post-traumatic stress disorder) 2024 Epilepsy 2024 Bipolar disorder 2024 Neuromuscular dysfunction of bladder 2024 Chronic indwelling Harry catheter 2024 Hypertension 2024 Major depressive disorder, single episode, moder ate 2024 SHELDON (obstructive sleep apnea) 2024 Chronic pain syndrome 2024 Peripheral neuropathy 2024 Paroxysmal atrial fibrillation 2024 GERD (gastroesophageal reflux disease) DM2 (diabetes mellitus, type 2) 2024 Hypoalbuminemia 2024 Anemia 2024 Thrombocytopenia 2024 Resolved Problems Problem Noted Date Diagnosed Date Resolved Date Pneumonia 2024 04/22/2024 Social History Tobacco Use Types Packs/Day Years Used Date Smoking Tobacco: Unknown Tobacco Cessation:Counseling Given: No AUDIT-C Answer Date Recorded Q1: How often do you have a drink containing alcohol? Never 2024 Q2: How many drinks containi ng alcohol do you have on a typical day when you are drinking? Patient does not drink Q3: How often do you have si x or more drinks on one occasion? Never 2024 Overall Financial Resource Strain (CARDIA) Answe r Date Recorded How hard is it for you to pa y for the very basics like food, housing, medical care, and heating? Not hard at all 03/27/2024 [facility] - Occupational Stress Questionnaire Answer Date Recorded Do you feel stress - tense, restless, nervous, or anxious, or unable to sleep at night because your mind is troubled all the time - these days? Not at all 03/27/2024 Hunger Vital Sign Answer Date Recorded Within the past 12 months, y ou worried that your food would run out before you got the money to buy more. Never true 03/27/20 24 Within the past 12 months, t he food you bought just didn't last and you didn't have money to get more. Never true 03/27/2024 PRAPARE - Transportation Answer Date Re corded In the past 12 months, has l ack of transportation kept you from medical appointments or from getting medications? No 03/27/2024 In the past 12 months, has l ack of transportation kept you from meetings, work, or from getting things needed for daily living? Patient unable to answer 03/27/2024 Housing Stability Vital Sign Answer Pepe e Recorded In the last 12 months, was t here a time when you were not able to pay the mortgage or rent on time? No 03/27/2024 [address] Lived in the Last Year Not on f ile 03/27/2024 In the last 12 months, was t here a time when you did not have a steady place to sleep or slept in a alf (including now)? No 03/27/2024 Comments Unknown Sex and Gender Information Value Date Recorded Sex Assigned at Not on file Legal Sex Female 7:55 AM CDT Gender Identity Not on file Sexual Orientation Not on file Last Filed Vital Signs Vital Sign Reading Time Taken Comments Blood Pressure 138/67 04/08/2024 11:21 AM CDT Pulse 78 04/08/2024 11:21 AM CDT Temperature 36.8 C (98.2 F) 04/08/2024 11:21 AM CDT Respiratory Rate 18 04/08/2024 11:21 AM CDT Oxygen Saturation 98% 04/08/2024 11:21 AM CDT Inhaled Oxygen Concentration 30% 03/30/2024 3 :27 AM CDT Weight 193.2 kg (426 lb) 04/07/2024 1:11 PM CDT Height 167.6 cm (5' 6 ) 04/07/2024 1:11 PM CDT Body Mass Index 68.76 04/07/2024 1:11 PM CDT Plan of Treatment Health Maintenance Due Date Last Done Comments BONE DENSITY TESTING 1960 COLOGUARD (AGES 45-75) - COLON CA SCREENING 1958 COLON MONITORING 1958 COLONOSCOPY - COLON CA SCREENING 1958 CT COLONOGRAPHY - COLON CA SCREENING 1960 Colorectal Cancer Screening 1960 FIT - COLON CA SCREENING 1958 FLEX SIG - COLON CA SCREENING 1958 DTAP/TDAP/TD VACCINES (1 - Tdap) 1977 PNEUMOCOCCAL VACCINE 50+ (1 of 2 - PCV) 1977 ZOSTER VACCINE (1 of 2) 2008 Respiratory Syncytial Virus (RSV) Vaccine Pt: or over 60 yrs (1 - Risk 60-74 years 1-dose series) 2018 MAMMOGRAM 05/11/2020 05/11/2018 DIABETES RETINOPATHY SCREENING 2024 DIABETES-FOOT EXAM WITH MONOFILAMENT 2024 COVID-19 VACCINE ( season) 2024 12/25/2021, 03/21/2021 DIABETES - URINE PROTEIN SCREENING 09/13/2024 05/27/2024, 12/12/2022 MEDICARE AW CALENDAR YEAR 2024 INFLUENZA VACCINE (Season Ended) 2025 08/20/2021, 07/03/2021, 08/10/2019, Additional history exists DIABETES-HGB A1C 05/27/2025 11/24/2024, 07/2025, 09/28/2024, Additional history exists DIABETES-SERUM CREATININE 11/29/20252024, 11/29/2024, 11/28/2024, Additional history exists HEPATITIS C SCREENING Completed 11/27/2024 , 11/27/2024, 11/26/2024, Additional history exists HEPATITIS B VACCINE Aged Out No longe r eligible based on patient's age to complete this topic HIB VACCINE Aged Out No longer eligi ble based on patient's age to complete this topic HPV VACCINE Aged Out No longer eligi ble based on patient's age to complete this topic MENINGOCOCCAL (Group B) VACCINE SHARED DECISION-MAKING Aged Out No longer eligible based on patient's age to complete this topic MENINGOCOCCAL GROUPS A/C/Y/W VACCINE Aged Out No longer eligible based on patient's age to complete this topic Procedures Procedure Name Priority Date/Time Associated Diagnosis Comments CREATININE BLOOD STAT 09/25/2024 7:00 PM PSYCHOLOGY INTERN HEMOGLOBIN A1C Routine 03/29/2024 3:59 AM CDT from Last 3 Months or Most Recently Relevant to Health Maintenance Results * (ABNORMAL) CREATININE BLOOD (09/25/2024 7:00 PM PSYCHOLOGY INTERN) Creatinine 4.74(H) 0.57 - 1.11 mg/dL 09/25/2024 8:18 PM PSYCHOLOGY INTERN [facility] eGFR by CKD-EPI 10(L) >=90 mL/min/1.7 3 m2 09/25/2024 8:18 PM PSYCHOLOGY INTERN [facility] Blood BLOOD SPECIMEN / Unknown Venipuncture / Unknown 09/25/2024 7:00 PM PSYCHOLOGY INTERN 09/25/2024 7:51 PM PSYCHOLOGY INTERN [facility] LAB - CHEMISTRY ORDERABLES Adrianna l Result Performing Organization Address City/State/[facility] Co de Phone Number [facility] [address] [place] [address] * HEMOGLOBIN A1C (03/29/2024 3:59 AM CDT) Hemoglobin A1c 5.0 <5.7 % 03/29/2024 4:52 AM CDT [facility] Estimated Average Glucose 97 mg/dL 03/29/2024 4:52 AM CDT [facility] Blood BLOOD SPECIMEN / Unknown Venipuncture / Unknown 03/29/2024 3:59 AM CDT 03/29/2024 4:08 AM CDT Narrative [facility] - 03/29/2024 4:52 AM CDT HbA1c Interpretation: Normal: < 5.7% Pre-diabetes: 5.7-6.4% Diabetes: Equal to or greater than 6.5% Test results diagnostic of diabetes should be repeated for confirmation. Treatment target values recommended by ADA and other clinical organizations should be used to evaluate metabolic control in patients. This test should not replace glucose testing for patients with Type 1 diabetes, pediatric patients, or women. Falsely low HbA1c results may be observed in patients with clinical conditions that shorten erythrocyte life span or decrease mean erythrocyte age such as the presence of unstable hemoglobin variants, elevated hemoglobin F level or other causes of hemolytic anemia. HbA1c may not accurately reflect glycemic control when clinical conditions that affect erythrocyte survival are present. Severe Iron deficiency anemia may yield falsely high results. Hemoglobin A1c assay should not be used to diagnose or monitor diabetes in patients with malignancy, recent blood transfusion, chronic kidney or liver disease. This method may yield falsely low results when hemoglobin (HbF) exceeds 5% in the specimen. The [employer] Al[employer] assay for the measurement of HbA1c is a National Glycohemoglobin Standardization Program (NGSP) certified method. us Evan Resendez DO LAB - CHEMISTRY ORDERABLES Fin al Result [facility] [address] [place] [address] from Last 3 Months or Most Recently Relevant to Health Maintenance Additional Health Concerns Infection Onset Date Last Indicated MRSA Hx Comment:nasal 2024 03/27/2024 ESBL GNR 03/26/2024 03/26/2024 MDRO 03/26/2024 03/26/2024 MRSA 03/26/2024 03/26/2024 Insurance MEDICAID AETNA [facility] [place] [employer] MEDICARE ADV Advance Directives * Full Code (Latest Code Status on File) Date Activated Date Inactivated Comments 2024 7:37 AM 04/08/2024 5:26 PM * Full Code Date Activated Date Inactivated Comments 2024 5:02 AM 2024 7:37 AM Care Teams Senior Technical Project Manager Relationship Specialty Start Date End Date Terri Balderas MD [address] [place] [address] PCP - General Family Medicine 03/27/24
--- OUTSIDE RECORDS SUMMARY | 2025-01-13 13:23 | XMS_ITS | Referral Summary ---
Author Organization [facility] [address] [employer] [address] Address [address] [place] [address] Phone Care Team Providers Care Blueberry Grower Name Role Phone No, Physician Primary Care Provider [phone] Encounters Date Type Department Care Team Description 01/12/2025 Telephone [facility] Advanced Medicine ([facility]) - [facility] Urology [address] Advanced Medicine 11th [place] [address] [place] [address] Larissa Lopez MD 12/11/2024 Telephone Radiology [address] [place] [address] Alia Simon, RT 12/08/2024 2:00 PM CDT Office Visit [facility]) - [facility] Urology [address] [facility] [address] Medical Office Building [address] [place] [id number] Larissa Lopez MD Left renal mass 11/08/2024 4:34 AM CIVIL ENGINEERING ASSISTANT - 11/08/2024 11:59 PM CIVIL ENGINEERING ASSISTANT Hospital Encounter [facility] Emergency, Room R Discharge Disposition: Discharge to home or self care 11/07/2024 11:23 PM CIVIL ENGINEERING ASSISTANT - 11/08/2024 4:35 AM CIVIL ENGINEERING ASSISTANT Emergency [facility] Emergency Department 1 [place] [address] Safia Cervantes MD Oxygen dependent (Primary Dx) Discharge Disposition: Discharge to home or self care 11/07/2024 5:46 PM CIVIL ENGINEERING ASSISTANT - 11/07/2024 11:59 PM CIVIL ENGINEERING ASSISTANT Hospital Encounter [facility] Emergency, Room R Discharge Disposition: Discharge to home or self care 11/02/2024 1:16 PM CIVIL ENGINEERING ASSISTANT - 11/07/2024 5:49 PM CIVIL ENGINEERING ASSISTANT Hospital Encounter [place] [phone] Norm Resendiz MD Lo Bianco, Salvador, MD Masetti, Paolo, MD Nikolic, Jelena, MD Davis, Eliazar Blanc II, Marie Grace MD Acute respiratory failure with hypercapnia (HCC) (Primary Dx); Acute cystitis with hematuria; Influenza A; Acute respiratory failure with hypoxia and hypercarbia (HCC); Delirium; Acute on chronic respiratory failure with hypoxia and hypercapnia (HCC) Discharge Disposition: Discharge to fci facility 11/01/2024 [facility] Internal Medicine Lesley Cruz MD 10/27/2024 4:35 PM CIVIL ENGINEERING ASSISTANT - 10/27/2024 11:59 PM CIVIL ENGINEERING ASSISTANT Hospital Encounter [facility] Emergency, Room R Discharge Disposition: Discharge to home or self care 10/22/2024 10:39 AM CIVIL ENGINEERING ASSISTANT - 10/27/2024 4:30 PM CIVIL ENGINEERING ASSISTANT Hospital Encounter [place] [phone] Vincenzo Montgomery MD Lo Bianco, Salvador, MD Richards, John Albert Jr., Emilia River MD Acute respiratory failure with hypoxia and hypercarbia (HCC) (Primary Dx); Delirium; Influenza A Discharge Disposition: Discharge to [facility]ci facility 10/19/2024 2:17 PM CIVIL ENGINEERING ASSISTANT - 10/19/2024 11:59 PM CIVIL ENGINEERING ASSISTANT Hospital Encounter [facility] Emergency, Room R Discharge Disposition: Discharge to home or self care 10/16/2024 11:01 AM CIVIL ENGINEERING ASSISTANT - 10/19/2024 12:51 PM CIVIL ENGINEERING ASSISTANT Hospital Encounter [place] [phone] Fabricio Flores MD Kheirkhahan, Nazanin, MD Nikolic, Jelena, MD Hyperkalemia (Primary Dx) Discharge Disposition: Discharge to SNF from Last 3 Months Allergies Active Allergy Reactions Criticality Noted Date Comments Penicillins Unknown Low 08/10/2017 Has tolerated cephalosporins in the past Unknown reaction as a child Medications levETIRAcetam (KEPPRA) 500 mg tablet Take 1 tablet (500 mg total) by mouth 2 (two) times a day Active mineral oil (FLEET MINERAL OIL) enemaIndication s:constipation Insert 1 enema (133 mL total) into the rectum daily as needed for constipation If no results 24 hours after Bisacodyl given Active oxybutynin XL (DITROPAN-XL) 5 mg 24 hr tablet Take 1 tablet (5 mg total) by mouth daily Active atorvastatin (LIPITOR) 40 mg tablet Take 1 tablet (40 mg total) by mouth nightly Active magnesium citrate solution Take 148 mL by mouth daily as needed (if no results from enema) Active dilTIAZem (CARDIZEM) 90 mg tablet Take 1 tablet (90 mg total) by mouth daily Active fluticasone propionate (FLONASE) 50 mcg/actuation nasal spray Administer 1 spray into each nostril daily Active furosemide (LASIX) 40 mg tablet Take 1 tablet (40 mg total) by mouth every morning Active magnesium hydroxide (MILK OF MAGNESIA) suspension 400 mg/5 mL Take 30 mL by mouth daily as needed (if no BM in 3 days) Active levalbuterol (XOPENEX) 1.25 mg/3 mL nebulizer solution Take 3 mL (1.25 mg total) by nebulization every 4 (four) hours as needed for wheezing Active diphenhydrAMINE (BENADRYL) 50 mg capsule Take 1 capsule (50 mg total) by mouth every 6 (six) hours as needed for itching 30 capsule 2 Active hydrOXYzine (ATARAX) 25 mg tablet Take 1 tablet (25 mg total) by mouth 3 (three) times a day as needed for itching 2 Active ipratropium-alb uteroL (DUO-NEB) 0.5-2.5 mg/3 mL nebulizer solution Take 3 mL by nebulization every 2 (two) hours as needed for shortness of breath 2 Active acetaminophen (TYLENOL) 325 mg tablet Take 2 tablets (650 mg total) by mouth every 6 (six) hours as needed for pain Active amLODIPine (NORVASC) 10 mg tablet Take 1 tablet (10 mg total) by mouth nightly Active baclofen (LIORESAL) 10 mg tablet Take 0.5 tablets (5 mg total) by mouth 2 (two) times a day as needed Active cholecalciferol (VITAMIN D-3) 2000 unit tablet Take 1 tablet (2,000 Units total) by mouth daily Active ondansetron (ZOFRAN) 4 mg tablet Take 1 tablet (4 mg total) by mouth every 8 (eight) hours as needed for nausea or vomiting Active OXcarbazepine (OXTELLAR XR) 150 mg tablet extended release 24 hr Take 1 tablet (150 mg total) by mouth 2 (two) times a day Active polyethylene glycol (MIRALAX) 17 gram packet Take 1 packet (17 g total) by mouth daily Active diclofenac sodium (VOLTAREN) 1 % gel Apply 2 g topically 4 (four) times a day as needed (pain) Active lactulose solution 10 gram/15mL Take 30 mL (20 g total) by mouth 2 (two) times a day Active escitalopram (LEXAPRO) 10 mg tablet Take 1 tablet (10 mg total) by mouth daily Active insulin aspart (NovoLOG) 100 unit/mL (3 mL) pen for injection Inject under the skin 3 (three) times a day before meals Per sliding scale: If 70 - 149 = 0 units, 150-199 = 1 unit, 200 - 249 = 2 units, 250 - 299 = 3 units, 300 - 349 = 4 units, 350 - 500 = 6 units Active midodrine (PROAMATINE) 10 mg tablet Take 1 tablet (10 mg total) by mouth every 8 (eight) hours 5 Active epoetin ag-epbx (RETACRIT) (20,000 unit/mL) injection Inject 1 mL (20,000 Units total) under the skin 3 (three) times a week 5 Active folic acid (FOLVITE) 1 mg tablet Take 5 tablets (5 mg total) by mouth daily 150 tablet 5 Active ramelteon (ROZEREM) 8 mg tablet Take 1 tablet (8 mg total) by mouth nightly as needed for sleep for up to 10 doses 10 tablet 5 Active montelukast (SINGULAIR) 10 mg tablet Take 1 tablet (10 mg total) by mouth nightly 30 tablet 11 5 11/07/19 26 Active QUEtiapine (SEROquel) 25 mg tablet Take 1 tablet (25 mg total) by mouth nightly Pt takes 25 mg in the AM and 50 mg in the evening 5 Active HYDROcodone-rosa taminophen (NORCO) 5-325 mg per tablet Take 1 tablet by mouth every 8 (eight) hours as needed for pain for up to 6 doses 6 tablet 5 Active Active Problems Problem Noted Date Diagnosed Date End stage renal disease on dialysis 11/06/2024 Influenza A 10/25/2024 Acute respiratory failure with hypoxia and hyper carbia 10/22/2024 Delirium 10/06/2024 Acute on chronic respiratory failure with hypoxia and hypercapnia 07/30/2024 COPD with acute exacerbation 07/30/2024 Acute respiratory failure with hypercapnia 07/26 Hyperkalemia 08/04/2022 Assessment & Plan (08/04/2022 10:52 AM CIVIL ENGINEERING ASSISTANT): Had normal K on admission. K last 2 days has been 5.1, 5.3. whole blood K of 5.2. Creatinine stable. Suspect due to immobilization vs resolving ROGER. -treat with lokelma x 2 days -will need repeat labs at [facility] in 3-7 days. CKD (chronic kidney disease) stage 3, GFR 30-59 ml/min 07/28/2022 Assessment & Plan (08/04/2022 10:50 AM CIVIL ENGINEERING ASSISTANT): Mild ROGER on top of CKD3 - improved, now creat stable at 1.29. (though might be artificially increased due to being on bactrim) - avoid nephrotoxins and renally dose meds Assessment & Plan (08/02/2022 2:25 PM CIVIL ENGINEERING ASSISTANT): Mild roger on top of CKD 3 - will continue to monitor with daily BMP - avoid nephrotoxins and renally dose meds - creatinine stable but not back to baseline, Bactrim may be contributing to cr lab elevation - IVF today and reassess Assessment & Plan (08/01/2022 11:07 AM CIVIL ENGINEERING ASSISTANT): Mild roger on top of CKD 3 - will continue to monitor with daily BMP - avoid nephrotoxins and renally dose meds - creatinine downtrending Assessment & Plan (07/31/2022 1:52 PM CIVIL ENGINEERING ASSISTANT): Mild roger on top of CKD 3 - will continue to monitor with daily BMP - Hold am lasix, add small IVF bolus - avoid nephrotoxins and renally dose meds - creatinine downtrending Assessment & Plan (07/30/2022 1:34 PM CIVIL ENGINEERING ASSISTANT): Mild roger on top of CKD 3 - will continue to monitor with daily BMP - slight bump today - Hold am lasix, add small IVF bolus - avoid nephrotoxins and renally dose meds Assessment & Plan (07/28/2022 2:32 PM CIVIL ENGINEERING ASSISTANT): Mild roger on top of CKD 3 - will continue to monitor with daily BMP - Hold am lasix - send urinalysis - avoid nephrotoxins and renally dose meds Cellulitis of abdominal wall 07/27/2022 Assessment & Plan (08/04/2022 10:49 AM CIVIL ENGINEERING ASSISTANT): Pt presenting with abdominal wall erythema and tenderness. Reports subjective fevers and nausea. HDS and afebrile with normal WBC on admit. - Had a flare of cellulitis which led to hospitalization in January 2022. Had been seen years ago for possible panniculectomy, but felt to be a very poor surgical candidate. - empiric cefe/vanc > has hx of urine pseudomonal infections and MSSA. MRSA surveillance swab positive - Vancomycin dosed 15mg/kg every 24 based on CrCl of 41, level of 21, stopped VANC on 07/30 - + 1/2 blood cultures for Gram + clusters (reported as prelim staph epi), repeat cultures negative and likely contaminant - changed to bactrim DS to complete full 10 day course of antibiotics (will finish on 08/05) - exam resolved Assessment & Plan (08/02/2022 2:23 PM CIVIL ENGINEERING ASSISTANT): Pt presenting with abdominal wall erythema and tenderness. Reports subjective fevers and nausea. HDS and afebrile with normal WBC on admit. - Had a flare of cellulitis which led to hospitalization in January 2022. Had been seen years ago for possible panniculectomy, but felt to be a very poor surgical candidate. - empiric cefe/vanc > has hx of urine pseudomonal infections and MSSA. MRSA surveillance swab positive - Vancomycin dosed 15mg/kg every 24 based on CrCl of 41, level of 21, stopped VANC on 07/30 - + 1/2 blood cultures for Gram + clusters (reported as prelim staph epi), repeat cultures negative and likely contaminant - changed to bactrim DS to complete full 10 day course of antibiotics (will finish on 08/05) - exam improving Assessment & Plan (08/01/2022 10:56 AM CIVIL ENGINEERING ASSISTANT): Pt presenting with abdominal wall erythema and tenderness. Reports subjective fevers and nausea. HDS and afebrile with normal WBC on admit. - Had a flare of cellulitis which led to hospitalization in January 2022. Had been seen years ago for possible panniculectomy, but felt to be a very poor surgical candidate. - empiric cefe/vanc > has hx of urine pseudomonal infections and MSSA. MRSA surveillance swab positive - Vancomycin dosed 15mg/kg every 24 based on CrCl of 41, level of 21, stopped VANC on 07/30 - + 1/2 blood cultures for Gram + clusters (reported as prelim staph epi), repeat cultures negative and likely contaminant - changed to bactrim DS to complete full course of antibiotics - exam improving Assessment & Plan (07/31/2022 1:51 PM CIVIL ENGINEERING ASSISTANT): Pt presenting with abdominal wall erythema and tenderness. Reports subjective fevers and nausea. HDS and afebrile with normal WBC on admit. - Had a flare of cellulitis which led to hospitalization in January 2022. Had been seen years ago for possible panniculectomy, but felt to be a very poor surgical candidate. - Continue empiric cefe/vanc > has hx of urine pseudomonal infections and MSSA. No MRSA hx noted but lives in SNF. Will send MRSA surveilence swab - Vancomycin dosed 15mg/kg every 24 based on CrCl of 41, level of 21, stopping VANC on 07/30 - + 1/2 blood cultures for Gram + clusters (reported as prelim staph epit), repeat cultures negative and likely contaminant - MRSA surveillance swab positive Assessment & Plan (07/30/2022 1:32 PM CIVIL ENGINEERING ASSISTANT): Pt presenting with abdominal wall erythema and tenderness. Reports subjective fevers and nausea. HDS and afebrile with normal WBC on admit. - Had a flare of cellulitis which led to hospitalization in January 2022. Had been seen years ago for possible panniculectomy, but felt to be a very poor surgical candidate. - Continue empiric cefe/vanc > has hx of urine pseudomonal infections and MSSA. No MRSA hx noted but lives in SNF. Will send MRSA surveilence swab - Vancomycin dosed 15mg/kg every 24 based on CrCl of 41, level of 21, stopping VANC and Initiating oral abx today - + 1/2 blood cultures for Gram + clusters (reported as prelim staph epi so may be contaminant), repeat cultures negative and likely contaminant Assessment & Plan (07/29/2022 2:29 PM CIVIL ENGINEERING ASSISTANT): Pt presenting with abdominal wall erythema and tenderness. Reports subjective fevers and nausea. HDS and afebrile with normal WBC on admit. - Had a flare of cellulitis which led to hospitalization in January 2022. Had been seen years ago for possible panniculectomy, but felt to be a very poor surgical candidate. - Continue empiric cefe/vanc > has hx of urine pseudomonal infections and MSSA. No MRSA hx noted but lives in SNF. Will send MRSA surveilence swab - Vancomycin dosed 15mg/kg every 24 based on CrCl of 41, will draw a trough level prior to 3rd dose tonight - + 1/2 blood cultures for Gram + clusters (reported as prelim staph epi so may be contaminant), will repeat cultures daily until negative - Continue to monitor clinically and switch to PO when appropriate Assessment & Plan (07/28/2022 2:24 PM CIVIL ENGINEERING ASSISTANT): Pt presenting with abdominal wall erythema and tenderness. Reports subjective fevers and nausea. HDS and afebrile with normal WBC on admit. - Had a flare of cellulitis which led to hospitalization in January 2022. Had been seen years ago for possible panniculectomy, but felt to be a very poor surgical candidate. - Continue empiric cefe/vanc > has hx of urine pseudomonal infections and MSSA. No MRSA hx noted but lives in SNF. Will send MRSA surveilence swab - Vancomycin dosed 15mg/kg every 24 based on CrCl of 41, will draw a trough level prior to 3rd dose - + 1/2 blood cultures for Gram + clusters, will repeat cultures daily - Continue to monitor clinically Head congestion 01/25/2022 Assessment & Plan (01/25/2022 9:23 AM CDT): - Complained of ear fullness, neck gland swelling and sore throat. Notes sinus congestion as well - Continue flonase. Start zyrtec. Supportive care Abdominal wall cellulitis 01/21/2022 Assessment & Plan (01/26/2022 10:15 AM CDT): Pt presenting with worsening abdominal wall pain and drainage, a chronic issue of panniculitis. Unclear how much is new cellulitis rathe rthan chronic wound given her dependent positioning, dermatitis overlying the pannus, but does have drainage and tract like appearance. No systemic symptoms or leukocytosis on admission either. Has had resolution of the surrounding erythema. - CT unfortunately did not include affected area. CT pelvis WO ordered, but reported unable to obtain 2/2 size and that the previous images were the best available. ED did performed ultrasound which did not show undrlying abscess - similar admission 1 month ago, briefly received vanc and then tx for UTI. Appears was treated recently with around 2 week course of cefuroxime - gets wound care at her SNF. Seen by wound RN team. Continue wound care. - Noted additional small area of superficial breakdown in R lower quadrant. Dry dressing place. - Had been seen years ago for possible panniculectomy, but felt to be a very poor surgical candidate. - s/p vanc/cefepime in the ed. Continued vanc alone. S/p transition to PO bactrim to complete 5 total days Assessment & Plan (01/22/2022 12:09 AM CDT): Pt presenting with worsening abdominal wall pain and drainage, a chronic issue of panniculitis. Unclear how much is new cellulitis rathe rthan chronic wound given her dependent positioning, dermatitis overlying the pannus, but does have drainage and tract like appearance. No systemic symptoms or leukocytosis on admission either. - CT unfortunately did not include affected area, a pelvis WO contrast is ordered. ED did performed ultrasound which did not show undrlying abscess - similar admission 1 month ago, briefly received vanc and then tx for UTI. Not dc on abx but did report some initial improvement - gets wound care at her SNF but unclear what regimen they do - s/p vanc/cefepime in the ed PLAN - will continue with vanc for now, pending wound culture for drainage and blood culture obtained. - CT wo contrast of pelvis pending as well as UA - given chronic panniculitis can get surgical consultation (plastics) for evaluation of panniculectomy, good chance pt would be a poor surgical candidate but given chronicity of wound could be a consideration. Do not think abx will have significant impact overall but will treat for course - wound care consult Renal mass of unknown nature 01/21/2022 Assessment & Plan (08/03/2022 3:28 PM CIVIL ENGINEERING ASSISTANT): CT in January 2022 showed 4 cm indeterminant renal mass, has progressed since previous imaging and was recommended to have MRI outpatient but patient was not scanned. - ordered MRI but after speaking with radiology, patient is too large for our scanner - Got renal CT that is inconclusive - ordered renal ultrasound to see if can aid in diagnosis - again inconclusive - Will need to get outpatient MRI who can accommodate size if not able to make diagnosis, per radiology they have such a scanner at [facility] Assessment & Plan (08/02/2022 2:24 PM CIVIL ENGINEERING ASSISTANT): CT in January 2022 showed 4 cm indeterminant renal mass, has progressed since previous imaging and was recommended to have MRI outpatient but patient was not scanned. - ordered MRI but after speaking with radiology, patient is too large for our scanner - Got renal CT that is inconclusive - ordered renal ultrasound to see if can aid in diagnosis - May need to get outpatient MRI who can accommodate size if not able to make diagnosis, per radiology they have such a scanner at [facility] Assessment & Plan (08/01/2022 11:05 AM CIVIL ENGINEERING ASSISTANT): CT in January 2022 showed 4 cm indeterminant renal mass, has progressed since previous imaging and was recommended to have MRI outpatient but patient was not scanned. - ordered MRI but after speaking with radiology, patient is too large for our scanner - Got renal CT that is inconclusive - ordered renal ultrasound to see if can aid in diagnosis - May need to get outpatient MRI who can accommodate size if not Assessment & Plan (07/31/2022 1:51 PM CIVIL ENGINEERING ASSISTANT): CT in January 2022 showed 4 cm indeterminant renal mass, has progressed since previous imaging and was recommended to have MRI outpatient but patient was not scanned. - ordered MRI and attempting to get as inpatient Assessment & Plan (07/30/2022 1:33 PM CIVIL ENGINEERING ASSISTANT): CT in January 2022 showed 4 cm indeterminant renal mass, has progressed since previous imaging and was recommended to have MRI outpatient but patient was not scanned. - ordered MRI Assessment & Plan (07/28/2022 2:30 PM CIVIL ENGINEERING ASSISTANT): CT in January 2022 showed 4 cm indeterminant renal mass, has progressed since previous imaging and was recommended to have MRI outpatient but patient was not scanned. - will attempt to get imaging in house pending renal function Assessment & Plan (01/26/2022 10:14 AM CDT): CT on admissino showing 4 cm indeterminant renal mass, has progressed since previous imaging - renal MRI recommended, can be done as outpatient. Assessment & Plan (01/21/2022 11:59 PM CDT): CT on admissino showing 4 cm indeterminant renal mass, has progressed since previous imaging - renal MRI recommended, can be done as outpatient Urinary tract infection due to extended-spectrum beta lactamase (ESBL) producing Escherichia coli 12/13/2021 Assessment & Plan (12/17/2021 1:05 PM CDT): Patient with symptoms of dysuria . Urine culture growing Pseudomonas and Enterococcus faecalis. - status post course of vancomycin to treat the Enterococcus and 3 days of Cipro for Pseudomonas Assessment & Plan (12/16/2021 3:41 PM CDT): Patient with symptoms of dysuria . Urine culture growing Pseudomonas and Enterococcus faecalis. - status post course of vancomycin to treat the Enterococcus and 3 days of Cipro for Pseudomonas Assessment & Plan (12/15/2021 10:05 AM CDT): Given symptoms of dysuria and urine culture growing Pseudomonas and Enterococcus faecalis, I will treat this. - status post course of vancomycin which will treat the Enterococcus, will complete 3 days of Cipro for the Pseudomonas Assessment & Plan (12/14/2021 11:36 AM CDT): Given symptoms of dysuria and urine culture growing Pseudomonas and Enterococcus faecalis, I will treat this. - status post course of vancomycin which will treat the Enterococcus, will complete 3 days of Cipro for the Pseudomonas Assessment & Plan (12/13/2021 10:38 AM CDT): Given symptoms of dysuria and urine culture growing Pseudomonas and Enterococcus faecalis, I will treat this. She has artery see 2 days of vancomycin which will treat the Enterococcus. Will plan 3 days of Cipro for the Pseudomonas and as per above will continue Augmentin for a few more days both for the skin and for the Enterococcus. Chronic respiratory failure with hypoxia 021 Assessment & Plan (08/04/2022 10:49 AM CIVIL ENGINEERING ASSISTANT): Pt with Hx of COPD (former smoker), SHELDON and OHS on 3L O2 chronically and Bipap At baseline - Cont home ICS/LABA (formulary substitute for home symbicort) and duonebs prn, bipap and supplemental O2. Assessment & Plan (08/02/2022 2:23 PM CIVIL ENGINEERING ASSISTANT): Pt with Hx of COPD (former smoker), SHELDON and OHS on 3L O2 chronically and Bipap - Cont home ICS/LABA (formulary substitute for home symbicort) and duonebs prn, bipap and supplemental O2. Assessment & Plan (08/01/2022 10:56 AM CIVIL ENGINEERING ASSISTANT): Pt with Hx of COPD (former smoker), SHELDON and OHS on 3L O2 chronically and Bipap - Cont home ICS/LABA (formulary substitute for home symbicort) and duonebs prn, bipap and supplemental O2. Assessment & Plan (07/31/2022 1:51 PM CIVIL ENGINEERING ASSISTANT): Pt with Hx of COPD (former smoker), SHELDON and OHS on 3L O2 chronically and Bipap - Cont home ICS/LABA (formulary substitute for home symbicort) and duonebs prn, bipap and supplemental O2. Assessment & Plan (07/30/2022 1:32 PM CIVIL ENGINEERING ASSISTANT): Pt with Hx of COPD (former smoker), SHELDON and OHS on 3L O2 chronically and Bipap - Cont home ICS/LABA (formulary substitute for home symbicort) and duonebs prn, bipap and supplemental O2. Assessment & Plan (07/29/2022 2:42 PM CIVIL ENGINEERING ASSISTANT): Pt with Hx of COPD (former smoker), SHELDON and OHS on 3L O2 chronically and Bipap - Cont home ICS/LABA (formulary substitute for home symbicort) and duonebs prn, bipap and supplemental O2. Assessment & Plan (07/28/2022 2:25 PM CIVIL ENGINEERING ASSISTANT): Pt with Hx of COPD (former smoker), SHELDON and OHS on 3L O2 chronically and Bipap - Cont home ICS/LABA (formulary substitute for home symbicort) and duonebs prn, bipap and supplemental O2. Assessment & Plan (01/24/2022 12:51 PM CDT): Pt with Hx of COPD (former smoker), SHELDON and OHS on 3L O2 chronically and CPAP - cont home ICS/LABA (formulary substitute for home symbicort) and xenox - Continue home CPAP - cont to be at home O2 requirement Assessment & Plan (01/22/2022 12:11 AM CDT): Pt with Hx of COPD (former smoker), SHELDON and OHS on 3L O2 chronically and CPAP - cont home ICS/LABA (formulary substitute for home symbicort) and xenox - home cpap - cont to be at home O2 requirement Assessment & Plan (12/17/2021 1:05 PM CDT): Likely multifactorial to COPD, SHELDON and OHS. On 3L baseline at home. - Continue O2 to maintain SpO2 >88% - continue home ICS/LABA, xopenex prn - CPAP nightly Assessment & Plan (12/16/2021 3:42 PM CDT): Likely multifactorial to COPD, SHELDON and OHS. On 3L baseline at home. - Continue O2 to maintain SpO2 >88% - continue home ICS/LABA, xopenex prn - CPAP nightly Assessment & Plan (12/15/2021 10:05 AM CDT): Likely multifactorial to COPD, SHELDON and OHS. On 3L baseline at home. - Continue O2 to maintain SpO2 >88% - continue home ICS/LABA, xopenex prn - CPAP nightly Assessment & Plan (12/14/2021 11:36 AM CDT): Likely multifactorial to COPD, SHELDON and OHS. On 3L baseline at home. - Continue O2 to maintain SpO2 >88% - continue home ICS/LABA, xopenex prn - CPAP nightly Assessment & Plan (12/13/2021 10:36 AM CDT): Likely multifactorial to COPD, SHELDON and OHS. On 3L baseline at home. - Continue O2 to maintain SpO2 >88% - continue home ICS/LABA, xopenex prn - CPAP nightly Assessment & Plan (12/11/2021 10:41 PM CDT): Likely multifactorial to COPD, SHELDON and OHS. On 3L baseline at home. - Continue O2 to maintain SpO2 >88% - continue home ICS/LABA, xopenex prn - CPAP nightly Impaired mobility 04/02/2021 Chronic GERD 04/02/2021 Peripheral neuropathy 04/02/2021 Knee pain 04/02/2021 Assessment & Plan (08/04/2022 10:50 AM CIVIL ENGINEERING ASSISTANT): Patient with hx of left knee surgery 2/2 fracture and Right knee osteoarthritis. Also with hx of gout of Right Toe. Right knee exam is benign. - uric acid elevated - knee x-ray with OA - continue tylenol and oxycodone, added lidocaine patch Assessment & Plan (08/02/2022 2:22 PM CIVIL ENGINEERING ASSISTANT): Patient with hx of left knee surgery 2/2 fracture and Right knee osteoarthritis. Also with hx of gout of Right Toe - uric acid elevated - ordered knee x-ray and pending - limited by ROGER with use of nsaids - continue tylenol and oxycodone, added lidocaine patch - will consider steroid injection pending x-ray result Chronic diastolic CHF (congestive heart failure) 04/02/2021 Assessment & Plan (12/17/2021 1:05 PM CDT): - TTE (2019): normal LVEF, indeterminate diastolic function - Continue lasix 40mg PO daily Assessment & Plan (12/16/2021 3:38 PM CDT): - TTE (2019): normal LVEF, indeterminate diastolic function - Continue lasix 40mg PO daily Assessment & Plan (12/13/2021 10:36 AM CDT): - TTE (2019): normal LVEF, indeterminate diastolic function - lasix 40mg PO daily Assessment & Plan (12/12/2021 9:35 AM CDT): - TTE (2019): normal LVEF, indeterminate diastolic function - lasix 40mg PO daily Impaired mobility 03/28/2021 Severe episode of recurrent major depressive disorder, without psychotic features 12/12/2018 Obstructive sleep apnea 12/10/2018 Assessment & Plan (12/17/2021 1:05 PM CDT): - CPAP nightly. SNF notes report CPAP at 6mm H2O with 2L O2 bleed in Assessment & Plan (12/16/2021 3:38 PM CDT): - CPAP nightly. [facility] notes report CPAP at 6mm H2O with 2L O2 bleed in Assessment & Plan (12/15/2021 10:05 AM CDT): - CPAP nightly. [facility] notes report CPAP at 6mm H2O with 2L O2 bleed in Assessment & Plan (12/14/2021 11:36 AM CDT): - CPAP nightly. [facility] notes report CPAP at 6mm H2O with 2L O2 bleed in Assessment & Plan (12/13/2021 10:36 AM CDT): - CPAP nightly. [facility] notes report CPAP at 6mm H2O with 2L O2 bleed in Assessment & Plan (12/11/2021 10:45 PM CDT): - CPAP nightly. [facility] notes report CPAP at 6mm H2O with 2L O2 bleed in Atypical chest pain 12/10/2018 Paroxysmal atrial fibrillation (CMS/HCC) 019 Assessment & Plan (12/17/2021 1:05 PM CDT): - Continue Xarelto and diltiazem Assessment & Plan (12/16/2021 3:38 PM CDT): - Continue Xarelto and diltiazem Assessment & Plan (12/15/2021 10:05 AM CDT): Xarelto, dilt Assessment & Plan (12/14/2021 11:36 AM CDT): Xarelto, dilt Assessment & Plan (12/12/2021 9:36 AM CDT): Xarelto, dilt Subclinical hypothyroidism 12/10/2018 Assessment & Plan (08/03/2022 3:28 PM CIVIL ENGINEERING ASSISTANT): Continue home synthyroid Assessment & Plan (08/02/2022 2:24 PM CIVIL ENGINEERING ASSISTANT): Continue home synthyroid Assessment & Plan (08/01/2022 10:57 AM CIVIL ENGINEERING ASSISTANT): Continue home synthyroid Assessment & Plan (07/31/2022 1:51 PM CIVIL ENGINEERING ASSISTANT): Continue home synthyroid Assessment & Plan (07/30/2022 1:33 PM CIVIL ENGINEERING ASSISTANT): Continue home synthyroid Assessment & Plan (07/27/2022 8:24 PM CIVIL ENGINEERING ASSISTANT): Continue home synthyroid Assessment & Plan (01/23/2022 10:40 AM CDT): Pt reports to have nodule, last TSH was normal with barely low T4 - Repeat TSH 4 (no reflex) - Favor to continue low dose syntrhoid and can follow up with pcp for consideration of discontinuation. Assessment & Plan (01/22/2022 12:10 AM CDT): Pt reports to have nodule, last TSH was normal with barely low T4. Will hold home synthroid as dose was kevin low, repeat TSH/T4 and can follow up with pcp Acute respiratory failure with hypoxia 9 Calcium channel wayne overdose 12/01/2018 Encephalopathy, toxic 12/01/2018 Intentional overdose of drug in tablet form 11/12 Aspiration pneumonia 12/01/2018 Neck pain, musculoskeletal 04/19/2018 Assessment & Plan (04/19/2018 6:37 PM CDT): Patient's neck pain x6 days turning to [...] tablet daily. History of pulmonary embolism 03/19/2018 Assessment & Plan (08/03/2022 3:26 PM CIVIL ENGINEERING ASSISTANT): Continue home xarelto Assessment & Plan (08/02/2022 2:24 PM CIVIL ENGINEERING ASSISTANT): Continue home xarelto Assessment & Plan (08/01/2022 10:57 AM CIVIL ENGINEERING ASSISTANT): Continue home xarelto Assessment & Plan (07/31/2022 1:51 PM CIVIL ENGINEERING ASSISTANT): Continue home xarelto Assessment & Plan (07/30/2022 1:33 PM CIVIL ENGINEERING ASSISTANT): Continue home xarelto Assessment & Plan (07/27/2022 8:25 PM CIVIL ENGINEERING ASSISTANT): Continue home xarelto Assessment & Plan (01/23/2022 10:40 AM CDT): Cont home xarelto Assessment & Plan (01/22/2022 12:10 AM CDT): Cont home xarelto Assessment & Plan (12/17/2021 1:05 PM CDT): - Continue xarelto Assessment & Plan (12/16/2021 3:37 PM CDT): - Continue xarelto Assessment & Plan (12/15/2021 10:05 AM CDT): xarelto Assessment & Plan (12/14/2021 11:36 AM CDT): xarelto Assessment & Plan (12/13/2021 10:36 AM CDT): xarelto Assessment & Plan (12/12/2021 9:35 AM CDT): xarelto Assessment & Plan (03/19/2018 2:23 PM CDT): Patient gives a history of pulmonary embolus less than 3 months ago no [place] details she has had numerous hospitalizations in the past several years. At this time she is on Eliquis 5 mg b.i.d. patient is given sample and the information of on how to potentially get this medication through patient assistance program. Patient advised Eliquis is a minimal 6 months treatment. . Impaired ambulation 03/17/2018 Assessment & Plan (03/19/2018 2:33 PM CDT): Inability ambulate is directly related to patient's morbid obesity, morbid obesity was pain addressed 1st step is taking care of her her recurring infected pannus . Decubitus ulcer of left thigh, stage 3 8 Assessment & Plan (01/19/2018 5:45 AM CDT): Decubitus precautions. Wound care consult Scabies infestation 01/18/2018 Assessment & Plan (01/19/2018 5:42 AM CDT): Extensive scabies infestation. Bed but should be in the differential diagnosis consideration as well. Will start on permethrin. Family members likely need to be treated as well if symptomatic Wound dehiscence, surgical 01/18/2018 Assessment & Plan (01/19/2018 5:44 AM CDT): Large area of hysterectomy scar dehiscence. With a huge pannus patient may benefit from the pannus resection to prevent recurrent wounds and infections. Will get plastic surgery consult for further assessment and recommendations. Will get wound care consult Urinary incontinence 12/20/2017 Screening for colon cancer 10/27/2017 Overview (10/27/2017): Added automatically from request for surgery [id number] Restless leg 10/18/2017 Assessment & Plan (08/03/2022 3:28 PM CIVIL ENGINEERING ASSISTANT): Continue pramipexole Assessment & Plan (08/02/2022 2:23 PM CIVIL ENGINEERING ASSISTANT): Continue pramipexole Assessment & Plan (08/01/2022 10:57 AM CIVIL ENGINEERING ASSISTANT): Continue pramipexole Assessment & Plan (07/31/2022 1:51 PM CIVIL ENGINEERING ASSISTANT): Continue pramipexole Assessment & Plan (07/30/2022 1:33 PM CIVIL ENGINEERING ASSISTANT): Continue pramipexole Assessment & Plan (07/27/2022 8:23 PM CIVIL ENGINEERING ASSISTANT): Continue pramipexole Assessment & Plan (12/17/2021 1:04 PM CDT): - Continue pramipexole 0.25mg qHS Assessment & Plan (12/16/2021 3:36 PM CDT): - Continue pramipexole 0.25mg qHS Assessment & Plan (12/15/2021 10:05 AM CDT): pramipexole 0.25mg qHS Assessment & Plan (12/14/2021 11:36 AM CDT): pramipexole 0.25mg qHS Assessment & Plan (12/12/2021 9:36 AM CDT): pramipexole 0.25mg qHS Medically noncompliant 10/18/2017 Assessment & Plan (10/18/2017 6:00 PM CIVIL ENGINEERING ASSISTANT): Informed patient today that she would need to comply with this office recommendations on management of her multiple chronic conditions, failure to do so, would mean that she would need to find another primary care provider. Chronic pain syndrome 10/18/2017 Assessment & Plan (12/17/2021 1:04 PM CDT): Chronic pain of bilateral legs s/p fracture, shoulder and back. On [place] 7.5-325 q6h prn at home - tylenol 1g q6h prn, oxycodone 10mg q6h prn - home gabapentin 100mg TID - scheduled and prn bowel regimen - started lidoderm patches for most painful area Assessment & Plan (12/16/2021 3:37 PM CDT): chronic pain of bilateral legs s/p fracture, shoulder and back. On Medanales 7.5-325 q6h prn at home - tylenol 1g q6h prn, oxycodone 10mg q6h prn - home gabapentin 100mg TID - scheduled and prn bowel regimen - started lidoderm patches for most painful area Assessment & Plan (12/15/2021 10:05 AM CDT): chronic pain of bilateral legs s/p fracture, shoulder and back. On Med[place] 7.5-325 q6h prn at home - tylenol 1g q6h prn, oxycodone 10mg q6h prn - home gabapentin 100mg TID - scheduled and prn bowel regimen - started lidoderm patches for most painful area Assessment & Plan (12/14/2021 11:36 AM CDT): chronic pain of bilateral legs s/p fracture, shoulder and back. On Medanales 7.5-325 q6h prn at home - tylenol 1g q6h prn, oxycodone 10mg q6h prn - home gabapentin 100mg TID - scheduled and prn bowel regimen - started lidoderm patches for most painful area Assessment & Plan (12/13/2021 10:36 AM CDT): chronic pain of bilateral legs s/p fracture, shoulder and back. On Med[place] 7.5-325 q6h prn at home - tylenol 1g q6h prn, oxycodone 10mg q6h prn - home gabapentin 100mg TID - scheduled and prn bowel regimen - started lidoderm patches for most painful area Assessment & Plan (12/12/2021 9:35 AM CDT): chronic pain of bilateral legs s/p fracture, shoulder and back. On Medanales 7.5-325 q6h prn at home - tylenol 1g q6h prn, oxycodone 10mg q6h prn - home gabapentin 100mg TID - scheduled and prn bowel regimen - will start lidoderm patches for most painful area Assessment & Plan (03/19/2018 2:19 PM CDT): Patient's referred to pain clinic locally here in town she had an appointment but could not make it because of the unexpected events Assessment & Plan (10/18/2017 5:57 PM CIVIL ENGINEERING ASSISTANT): Referred to pain mgmt for further eval/tx. Wound dehiscence 10/18/2017 Assessment & Plan (10/18/2017 5:58 PM CIVIL ENGINEERING ASSISTANT): Referral given 2 months ago to be seen by wound care. Patient did not follow up with them. Seizure disorder 07/20/2017 Assessment & Plan (08/03/2022 3:28 PM CIVIL ENGINEERING ASSISTANT): Controlled. Continue home keppra & oxcarbazapine. Assessment & Plan (08/02/2022 2:23 PM CIVIL ENGINEERING ASSISTANT): Controlled. Continue home keppra & oxcarbazapine. Assessment & Plan (08/01/2022 10:57 AM CIVIL ENGINEERING ASSISTANT): Controlled. Continue home keppra & oxcarbazapine. Assessment & Plan (07/31/2022 1:51 PM CIVIL ENGINEERING ASSISTANT): Controlled. Continue home keppra & oxcarbazapine. Assessment & Plan (07/30/2022 1:33 PM CIVIL ENGINEERING ASSISTANT): Controlled. Continue home keppra & oxcarbazapine. Assessment & Plan (07/27/2022 8:25 PM CIVIL ENGINEERING ASSISTANT): Controlled. Continue home keppra & oxcarbazapine. Assessment & Plan (01/23/2022 10:40 AM CDT): Controlled, cont home keppra/oxcarbazapine Assessment & Plan (01/22/2022 12:10 AM CDT): Controlled, cont home keppra/oxcarbazapine Assessment & Plan (12/17/2021 1:05 PM CDT): - Continue home keppra 500mg BID and oxcarbazepine 150 BID Assessment & Plan (12/16/2021 3:37 PM CDT): - Continue home keppra 500mg BID and oxcarbazepine 150 BID Assessment & Plan (12/15/2021 10:05 AM CDT): - home keppra 500mg BID and oxcarbazepine 150 BID Assessment & Plan (12/14/2021 11:36 AM CDT): - home keppra 500mg BID and oxcarbazepine 150 BID Assessment & Plan (12/13/2021 10:36 AM CDT): - home keppra 500mg BID and oxcarbazepine 150 BID Assessment & Plan (12/12/2021 9:36 AM CDT): - home keppra 500mg BID and oxcarbazepine 150 BID Assessment & Plan (03/19/2018 2:18 PM CDT): Patient gives a history of seizure disorder going back several years no seizures in the past 8 months she is on gabapentin patient was previously followed at [facility] in [facility]. Plans continue gabapentin this time Assessment & Plan (10/18/2017 5:56 PM CIVIL ENGINEERING ASSISTANT): Self-reported, patient was referred to neurology 2 months ago immediately after she reported a seizure. Patient did not mellisa appt with neurology, patient encouraged to comply. Personality disorder 07/20/2017 Assessment & Plan (03/19/2018 2:33 PM CDT): Psychiatric referral made Assessment & Plan (10/18/2017 5:53 PM CIVIL ENGINEERING ASSISTANT): Encouraged patient to f/u through with Psychiatry referral. Bipolar 1 disorder, depressed, mild 07/20/2017 Assessment & Plan (08/03/2022 3:17 PM CIVIL ENGINEERING ASSISTANT): Symptoms controlled, cont home regimen of sertraline, Seroquel Assessment & Plan (08/02/2022 2:23 PM CIVIL ENGINEERING ASSISTANT): Symptoms controlled, cont home regimen of sertraline, Seroquel Assessment & Plan (08/01/2022 10:56 AM CIVIL ENGINEERING ASSISTANT): Symptoms controlled, cont home regimen of sertraline, Seroquel Assessment & Plan (07/31/2022 1:51 PM CIVIL ENGINEERING ASSISTANT): Symptoms controlled, cont home regimen of sertraline, Seroquel Assessment & Plan (07/30/2022 1:33 PM CIVIL ENGINEERING ASSISTANT): Symptoms controlled, cont home regimen of sertraline, Seroquel Assessment & Plan (07/29/2022 2:42 PM CIVIL ENGINEERING ASSISTANT): Symptoms controlled, cont home regimen of sertraline, Seroquel Assessment & Plan (07/27/2022 8:23 PM CIVIL ENGINEERING ASSISTANT): Symptoms controlled, cont home regimen of sertraline, Seroquel Assessment & Plan (01/23/2022 10:41 AM CDT): Symptoms controlled, cont home regimen of sertraline, Seroquel, pramipexole for RLS Assessment & Plan (01/22/2022 12:05 AM CDT): Symptoms controlled, cont home regimen of sertraline, Seroquel, pramipexole for RLS Assessment & Plan (12/17/2021 1:04 PM CDT): History of prior intentional medication overdoses with psychiatric hospitalization - Continue home sertraline 100mg BID and quetiapine 50mg qHS Assessment & Plan (12/16/2021 3:35 PM CDT): History of prior intentional medication overdoses with psychiatric hospitalization - Continue home sertraline 100mg BID and quetiapine 50mg qHS Assessment & Plan (12/15/2021 10:06 AM CDT): History of prior intentional medication overdoses with psychiatric hospitalization - continue home sertraline 100mg BID, quetiapine 50mg qHS, tramadol 50mg qHS Assessment & Plan (12/14/2021 11:37 AM CDT): History of prior intentional medication overdoses with psychiatric hospitalization - continue home sertraline 100mg BID, quetiapine 50mg qHS, tramadol 50mg qHS Assessment & Plan (12/13/2021 10:35 AM CDT): History of prior intentional medication overdoses with psychiatric hospitalization - continue home sertraline 100mg BID, quetiapine 50mg qHS, tramadol 50mg qHS Assessment & Plan (12/11/2021 10:44 PM CDT): History of prior intentional medication overdoses with psychiatric hospitalization - continue home sertraline 100mg BID, quetiapine 50mg qHS, tramadol 50mg qHS Assessment & Plan (03/19/2018 2:19 PM CDT): Patient does not have an appointment with psychiatrist time patient is given referral to Psychiatry. She is stable at this time no ideas of doing harm herself or anyone else and no active hallucinations. Assessment & Plan (10/18/2017 5:53 PM CIVIL ENGINEERING ASSISTANT): Rx refills given. Encouraged patient to f/u through with Psychiatry referral. Recurrent major depressive disorder, in partial remission 07/20/2017 Essential hypertension 07/20/2017 Assessment & Plan (12/17/2021 1:04 PM CDT): - Continue home diltiazem Assessment & Plan (12/16/2021 3:35 PM CDT): - Continue home diltiazem Assessment & Plan (12/11/2021 10:46 PM CDT): - continue home diltiazem Assessment & Plan (03/19/2018 2:32 PM CDT): Blood pressure well control no change in therapy Assessment & Plan (10/18/2017 5:51 PM CIVIL ENGINEERING ASSISTANT): Hypertension is improving with treatment. Continue current treatment regimen. Dietary sodium restriction. Weight loss. Continue current medications. Blood pressure will be reassessed at the next regular appointment. Insomnia 07/20/2017 Assessment & Plan (10/18/2017 5:52 PM CIVIL ENGINEERING ASSISTANT): Will not fill both trazodone AND ambien, asked patient which one she preferred, she chose Ambien. Rx given. Encouraged patient to f/u through with Psychiatry referral. Acute gout of left foot 07/20/2017 Assessment & Plan (01/19/2018 5:41 AM CDT): Uric acid levels are elevated. 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 Referral re-printed. Class 3 severe obesity with body mass index (BMI) greater than or equal to 70 in adult 07/20/2017 Assessment & Plan (08/03/2022 3:26 PM CIVIL ENGINEERING ASSISTANT): Pt with severe obesity, complicated by SHELDON/OHS. Leg fractures in 2020 managed nonoperatively, pt has been bed bound and living in SNF since that time. Assessment & Plan (08/02/2022 2:23 PM CIVIL ENGINEERING ASSISTANT): Pt with severe obesity, complicated by SHELDON/OHS. Leg fractures in 2020 managed nonoperatively, pt has been bed bound and living in SNF since that time. Assessment & Plan (08/01/2022 10:56 AM CIVIL ENGINEERING ASSISTANT): Pt with severe obesity, complicated by SHELDON/OHS. Leg fractures in 2020 managed nonoperatively, pt has been bed bound and living in SNF since that time. Assessment & Plan (07/31/2022 1:51 PM CIVIL ENGINEERING ASSISTANT): Pt with severe obesity, complicated by SHELDON/OHS. Leg fractures in 2020 managed nonoperatively, pt has been bed bound and living in SNF since that time. Assessment & Plan (07/30/2022 1:33 PM CIVIL ENGINEERING ASSISTANT): Pt with severe obesity, complicated by SHELDON/OHS. Leg fractures in 2020 managed nonoperatively, pt has been bed bound and living in SNF since that time. Assessment & Plan (07/27/2022 8:25 PM CIVIL ENGINEERING ASSISTANT): Pt with severe obesity, complicated by SHELDON/OHS. Leg fractures in 2020 managed nonoperatively, pt has been bed bound and living in SNF since that time. Assessment & Plan (01/23/2022 2:22 PM CDT): PT with severe obesity, complicated by SHELDON/OHS as below. Leg fractures in 2020 managed nonoperatively, pt has been bed bound and living in SNF since that time Assessment & Plan (01/22/2022 12:04 AM CDT): PT with severe obesity, complicated by SHELDON/OHS as below. Leg fractures in 2020 managed nonoperatively, pt has been bed bound and living in SNF since that time - PT OT eval, would likely need continued high level of care Assessment & Plan (12/16/2021 3:36 PM CDT): BMI 78. This had led to the majority of her medical problems. - Consult RD Assessment & Plan (12/15/2021 10:05 AM CDT): BMI 78. This had led to the majority of her medical problems Assessment & Plan (12/14/2021 11:36 AM CDT): BMI 78. This had led to the majority of her medical problems Assessment & Plan (12/13/2021 10:36 AM CDT): BMI 78. This had led to the majority of her medical problems Assessment & Plan (12/12/2021 9:35 AM CDT): BMI 78. This had led to the majority of her medical problems Assessment & Plan (03/19/2018 2:26 PM CDT): Patient's morbid obese body mass index of 70. Her weight is 447 lb she is 5 ft 7 in tall. She has a huge pannus this causes ulcerations in problems with walking and irritation in her legs she informs me that Dr. Panda in [facility] is willing to move this pannus patient referred to this particular physician to address this problem soon as possible. 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 Assessment & Plan (10/18/2017 5:56 PM CIVIL ENGINEERING ASSISTANT): Obesity is unchanged. Discussed the patient's BMI. The BMI is above average; BMI management plan is completed. General weight loss/lifestyle modification strategies discussed (elicit support from others; identify saboteurs; non-food rewards, etc). At high risk for complication of immobility Cellulitis of left lower extremity Pain and swelling of left lower leg Resolved Problems Problem Noted Date Diagnosed Date Resolved Date Discharge planning issues 12/16/2021 Assessment & Plan (12/17/2021 1:06 PM CDT): - Insurance authorization obtained. Medically stable. Plan to discharge to SNF today. Assessment & Plan (12/16/2021 3:43 PM CDT): - Plan to return to SNF but pending insurance authorization - CM involved. Abdominal wall pain in both lower quadrants 12/11/2021 12/11/2021 Cellulitis of abdominal wall 12/11/2021 12/17/2021 Assessment & Plan (12/17/2021 1:04 PM CDT): A/P CT showed sking thickening and stranding in the panus read as potential cellulitis. Per previous hospitalist's notes, unclear whether there was ever definitely an infectious issue and most of the induration thought to be from obesity related lymphedema. Difficult for me to determine likelihood of true infection as I am meeting patient post antibiotic treatment. - Status post short course of IV vancomycin Assessment & Plan (12/16/2021 3:47 PM CDT): A/P CT showed sking thickening and stranding in the panus read as potential cellulitis. Per previous hospitalist's notes, unclear whether there was ever definitely an infectious issue and most of the induration thought to be from obesity related lymphedema. Difficult for me to determine likelihood of true infection as I am meeting patient post antibiotic treatment. - Status post short course of IV vancomycin Assessment & Plan (12/15/2021 10:06 AM CDT): I'm not sure there was ever definitely an infectious issue. She has a couple of wounds that being treated with local wound - most of the induration likely from obesity related lymphedema - status post short course of IV vancomycin I have personally spent 35 minutes today including time with the patient, time reviewing data, time discussing with other providers, and time on discharge planning and documentation. Assessment & Plan (12/14/2021 11:38 AM CDT): I'm not sure there was ever definitely an infectious issue. She has a couple of wounds that being treated with local wound - most of the induration likely from obesity related lymphedema - status post short course of IV vancomycin with still supratherapeutic level overnight. Plan to return to [facility] tomorrow. Assessment & Plan (12/13/2021 10:35 AM CDT): I'm not sure there is definitely an infectious issue. She definitely has a couple of wounds that being treated with local wound - most of the induration likely from obesity related lymphedema - now status post 2 days of IV vancomycin. Will change to Augmentin and Cipro primarily for the urine infection it is though this will also treat most organisms that could cause infection here. Assessment & Plan (12/12/2021 9:34 AM CDT): I'm not sure there is definitely an infectious issue. 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 No further workup warranted at present. Assessment & Plan (12/13/2021 10:35 AM CDT): Mild rise in creatinine is likely secondary to her contrasted CT. Will monitor in the hospital longer though to ensure stability prior to return to her [facility]. Immunizations Immunization Administration Dates Next Due Influenza, Quadrivalent, Spl it, Preservative Free, Intramuscular 08/20/2021,07/03/2021,08/10/2019,12/10,07/20/2017 Influenza, Trivalent, IM (MDV) 07/19/2017 Influenza, Unspecified 07/19/2017 PPD TEST 12/19/2021,01/14/2021 Pneumococcal Polysaccharide PPV23 08/15/2019,05/2017 Tdap 04/30/2021,04/20/2021 Social History Tobacco Use Types Packs/Day Years Used Date Smoking Tobacco: Former Cigarettes Smokeless Tobacco: Never Tobacco Cessation:Counseling Given: Not Answered Alcohol Use Standard Drinks/Week Comments Yes 0 (1 standard drink = 0.6 oz pur e alcohol) Occasional [facility] Utilities Answer Date Recorded In the past 12 months has th e electric, gas, oil, or water company threatened [...] often do you attend chur ch or catholic services? Never 11/03/2024 Do you belong to any clubs o r organizations such as episcopalian groups, unions, fraternal or athletic groups, or [...] place to sleep or slept in a fdc (including now)? No 07/30/2022 Housing Stability Vital Sign Answer Pepe e Recorded In the last 12 months, was t here a time when you were not able to pay the mortgage or rent on time? No 11/03/2024 In the past 12 months, how m any times have you moved where you were living? 0 11/03/2024 At any time in the past 12 m [facility], were you homeless or living in a fdc (including now)? No 11/03/2024 Personal Safety Answer [...] file Not on file Not on file Last Filed Vital Signs Vital Sign Reading Time Taken Comments Blood Pressure 127/62 11/08/2024 4:00 AM CIVIL ENGINEERING ASSISTANT Pulse 73 11/08/2024 4:00 AM CIVIL ENGINEERING ASSISTANT Temperature 36.4 C (97.5 F) 11/07/2024 11:43 PM CIVIL ENGINEERING ASSISTANT Respiratory Rate 18 11/07/2024 11:4 3 PM CIVIL ENGINEERING ASSISTANT Oxygen Saturation 94% 11/08/2024 4:00 AM CIVIL ENGINEERING ASSISTANT Inhaled Oxygen Concentration - - Weight 165.6 kg (365 lb 1.3 oz) 11/07/2024 6:18 AM CIVIL ENGINEERING ASSISTANT Height 170.2 cm (5' 7 ) 11/02/2024 8:00 PM CIVIL ENGINEERING ASSISTANT Body Mass Index 57.18 11/02/2024 8:00 PM CIVIL ENGINEERING ASSISTANT Plan of Treatment Not on file Procedures Procedure Name Priority Date/Time Associated Diagnosis Comments POCT GLUCOSE DEVICE Routine 11/07/2024 4 :07 PM CIVIL ENGINEERING ASSISTANT POCT GLUCOSE DEVICE Routine 11/07/2024 1 2:17 PM CIVIL ENGINEERING ASSISTANT POCT GLUCOSE DEVICE Routine 11/07/2024 9 :25 AM CIVIL ENGINEERING ASSISTANT POCT GLUCOSE DEVICE Routine 11/07/2024 7 :43 AM CIVIL ENGINEERING ASSISTANT POCT GLUCOSE DEVICE Routine 11/07/2024 3 :26 AM CIVIL ENGINEERING ASSISTANT EGFR Routine 11/07/2024 2:34 AM CIVIL ENGINEERING ASSISTANT COMPREHENSIVE METABOLIC PANEL Routine 11/07/2024 2:34 AM CIVIL ENGINEERING ASSISTANT HEMODIALYSIS Routine 11/07/2024 12:30 AM CIVIL ENGINEERING ASSISTANT POCT GLUCOSE DEVICE Routine 11/06/2024 1 1:15 PM CIVIL ENGINEERING ASSISTANT POCT GLUCOSE DEVICE Routine 11/06/2024 8 :00 PM CIVIL ENGINEERING ASSISTANT POCT GLUCOSE DEVICE Routine 11/06/2024 6 :20 PM CIVIL ENGINEERING ASSISTANT POCT GLUCOSE DEVICE Routine 11/06/2024 5 :18 PM CIVIL ENGINEERING ASSISTANT POCT GLUCOSE DEVICE Routine 11/06/2024 1 2:16 PM CIVIL ENGINEERING ASSISTANT EGFR Routine 11/06/2024 7:34 AM CIVIL ENGINEERING ASSISTANT DIFFERENTIAL AUTO Routine 11/06/2024 7:3 4 AM CIVIL ENGINEERING ASSISTANT CBC WITH AUTO DIFFERENTIAL Routine 11/06/2024 7:34 AM CIVIL ENGINEERING ASSISTANT COMPREHENSIVE METABOLIC PANEL Routine 11/06/2024 7:34 AM CIVIL ENGINEERING ASSISTANT POCT GLUCOSE DEVICE Routine 11/06/2024 7 :23 AM CIVIL ENGINEERING ASSISTANT POCT GLUCOSE DEVICE Routine 11/06/2024 4 :16 AM CIVIL ENGINEERING ASSISTANT POCT GLUCOSE DEVICE Routine 11/05/2024 1 1:46 PM CIVIL ENGINEERING ASSISTANT POCT GLUCOSE DEVICE Routine 11/05/2024 8 :19 PM CIVIL ENGINEERING ASSISTANT POCT GLUCOSE DEVICE Routine 11/05/2024 5 :21 PM CIVIL ENGINEERING ASSISTANT POCT GLUCOSE DEVICE Routine 11/05/2024 1 1:41 AM CIVIL ENGINEERING ASSISTANT POCT GLUCOSE DEVICE Routine 11/05/2024 7 :41 AM CIVIL ENGINEERING ASSISTANT EGFR Routine 11/05/2024 7:24 AM CIVIL ENGINEERING ASSISTANT DIFFERENTIAL AUTO Routine 11/05/2024 7:2 4 AM CIVIL ENGINEERING ASSISTANT LIPID PANEL Routine 11/05/2024 7:24 AM CIVIL ENGINEERING ASSISTANT CBC WITH AUTO DIFFERENTIAL Routine 11/05/2024 7:24 AM CIVIL ENGINEERING ASSISTANT COMPREHENSIVE METABOLIC PANEL Routine 11/05/2024 7:24 AM CIVIL ENGINEERING ASSISTANT POCT GLUCOSE DEVICE Routine 11/05/2024 3 :44 AM CIVIL ENGINEERING ASSISTANT POCT GLUCOSE DEVICE Routine 11/04/2024 1 1:55 PM CIVIL ENGINEERING ASSISTANT POCT GLUCOSE DEVICE Routine 11/04/2024 7 :59 PM CIVIL ENGINEERING ASSISTANT POCT GLUCOSE DEVICE Routine 11/04/2024 4 :10 PM CIVIL ENGINEERING ASSISTANT POCT GLUCOSE DEVICE Routine 11/04/2024 1 :01 PM CIVIL ENGINEERING ASSISTANT EGFR Routine 11/04/2024 8:30 AM CIVIL ENGINEERING ASSISTANT COMPREHENSIVE METABOLIC PANEL Routine 11/04/2024 8:30 AM CIVIL ENGINEERING ASSISTANT HEPATITIS B SURFACE ANTIGEN Routine 11/04/2024 8:30 AM CIVIL ENGINEERING ASSISTANT HEPATITIS B SURFACE ANTIBODY (IMMUNE STATUS) Routine 11/04/2024 8:30 AM CIVIL ENGINEERING ASSISTANT POCT GLUCOSE DEVICE Routine 11/04/2024 7 :26 AM CIVIL ENGINEERING ASSISTANT POCT GLUCOSE DEVICE Routine 11/04/2024 4 :35 AM CIVIL ENGINEERING ASSISTANT POCT GLUCOSE DEVICE Routine 11/04/2024 2 :01 AM CIVIL ENGINEERING ASSISTANT HEMODIALYSIS Routine 11/04/2024 12:31 AM CIVIL ENGINEERING ASSISTANT POCT GLUCOSE DEVICE Routine 11/03/2024 8 :36 PM CIVIL ENGINEERING ASSISTANT POCT GLUCOSE DEVICE Routine 11/03/2024 4 :18 PM CIVIL ENGINEERING ASSISTANT POCT GLUCOSE DEVICE Routine 11/03/2024 1 2:54 PM CIVIL ENGINEERING ASSISTANT POCT GLUCOSE DEVICE Routine 11/03/2024 8 :00 AM CIVIL ENGINEERING ASSISTANT BLOOD CULTURE STAT 11/03/2024 4:51 AM CIVIL ENGINEERING ASSISTANT POCT GLUCOSE DEVICE Routine 11/03/2024 4 :13 AM CIVIL ENGINEERING ASSISTANT POCT GLUCOSE DEVICE Routine 11/03/2024 1 2:40 AM CIVIL ENGINEERING ASSISTANT MA CRITICAL CARE ILL/INJURED PATIENT INIT 30-74 MIN Routine 11/02/2024 10:16 PM CIVIL ENGINEERING ASSISTANT CRITICAL CARE Routine 11/02/2024 9:53 PM CIVIL ENGINEERING ASSISTANT Influenza A Delirium Acute on chronic respiratory failure with hypoxia and hypercapnia (HCC) INFLUENZA A/B, RSV, AND COVID-19 PCR Routine 11/02/2024 9:50 PM CIVIL ENGINEERING ASSISTANT POCT GLUCOSE DEVICE Routine 11/02/2024 9 :29 PM CIVIL ENGINEERING ASSISTANT BLOOD GAS, VENOUS Routine 11/02/2024 8:5 8 PM CIVIL ENGINEERING ASSISTANT TROPONIN T HIGH-SENSITIVITY 6-HOUR Timed 11/02/2024 8:58 PM CIVIL ENGINEERING ASSISTANT BLOOD CULTURE STAT 11/02/2024 8:58 PM CIVIL ENGINEERING ASSISTANT POCT GLUCOSE DEVICE Routine 11/02/2024 6 :40 PM CIVIL ENGINEERING ASSISTANT URINALYSIS, MICROSCOPIC ONLY STAT 11/02/2024 2:26 PM CIVIL ENGINEERING ASSISTANT URINE CULTURE STAT 11/02/2024 2:26 PM CIVIL ENGINEERING ASSISTANT URINALYSIS AND REFLEX TO MICROSCOPIC AND CULTURE STAT 11/02/2024 2:26 PM CIVIL ENGINEERING ASSISTANT XR CHEST 1 VIEW ED 11/02/2024 1:57 PM CIVIL ENGINEERING ASSISTANT EGFR STAT 11/02/2024 1:54 PM CIVIL ENGINEERING ASSISTANT DIFFERENTIAL AUTO STAT 11/02/2024 1:5 4 PM CIVIL ENGINEERING ASSISTANT SEPSIS LACTATE WITH REFLEX STAT 11/02/2024 1:54 PM CIVIL ENGINEERING ASSISTANT TROPONIN T HIGH-SENSITIVITY SERIES (BASELINE, 2HR, 4HR, 6HR) Routine 11/02/2024 1:54 PM CIVIL ENGINEERING ASSISTANT PROTIME-INR STAT 11/02/2024 1:54 PM CIVIL ENGINEERING ASSISTANT PRO B-TYPE NATRIURETIC PEPTIDE STAT 11/02/2024 1:54 PM CIVIL ENGINEERING ASSISTANT MAGNESIUM Routine 11/02/2024 1:54 PM CIVIL ENGINEERING ASSISTANT COMPREHENSIVE METABOLIC PANEL STAT 11/02/2024 1:54 PM CIVIL ENGINEERING ASSISTANT CBC WITH AUTO DIFFERENTIAL STAT 11/02/2024 1:54 PM CIVIL ENGINEERING ASSISTANT APTT STAT 11/02/2024 1:54 PM CIVIL ENGINEERING ASSISTANT LEVETIRACETAM LEVEL Timed 11/02/2024 1 :54 PM CIVIL ENGINEERING ASSISTANT AMMONIA STAT 11/02/2024 1:54 PM CIVIL ENGINEERING ASSISTANT BLOOD GAS, VENOUS STAT 11/02/2024 1:5 4 PM CIVIL ENGINEERING ASSISTANT ECG 12-LEAD Routine 11/02/2024 1:44 PM CIVIL ENGINEERING ASSISTANT POCT GLUCOSE DEVICE Routine 11/02/2024 1 :20 PM CIVIL ENGINEERING ASSISTANT POCT GLUCOSE DEVICE Routine 10/27/2024 1 1:58 AM CIVIL ENGINEERING ASSISTANT POCT GLUCOSE DEVICE Routine 10/27/2024 8 :11 AM CIVIL ENGINEERING ASSISTANT EGFR Routine 10/27/2024 3:25 AM CIVIL ENGINEERING ASSISTANT BASIC METABOLIC PANEL Routine 10/27/2024 3:25 AM CIVIL ENGINEERING ASSISTANT CBC WITHOUT DIFFERENTIAL Routine 10/27/2024 3:25 AM CIVIL ENGINEERING ASSISTANT POCT GLUCOSE DEVICE Routine 10/27/2024 3 :24 AM CIVIL ENGINEERING ASSISTANT HEMODIALYSIS Routine 10/27/2024 12:30 AM CIVIL ENGINEERING ASSISTANT POCT GLUCOSE DEVICE Routine 10/26/2024 9 :24 PM CIVIL ENGINEERING ASSISTANT POCT GLUCOSE DEVICE Routine 10/26/2024 5 :07 PM CIVIL ENGINEERING ASSISTANT POCT GLUCOSE DEVICE Routine 10/26/2024 1 1:45 AM CIVIL ENGINEERING ASSISTANT HEMOGLOBIN AND HEMATOCRIT STAT 10/26/2024 8:47 AM CIVIL ENGINEERING ASSISTANT POCT GLUCOSE DEVICE Routine 10/26/2024 7 :59 AM CIVIL ENGINEERING ASSISTANT TRANSFUSE RED BLOOD CELLS Timed 10/26/2024 5:10 AM CIVIL ENGINEERING ASSISTANT PREPARE RBC Routine 10/26/2024 5:06 AM CIVIL ENGINEERING ASSISTANT PREPARE RBC Timed 10/26/2024 5:06 AM CIVIL ENGINEERING ASSISTANT EGFR Routine 10/26/2024 2:46 AM CIVIL ENGINEERING ASSISTANT BASIC METABOLIC PANEL Routine 10/26/2024 2:46 AM CIVIL ENGINEERING ASSISTANT CBC WITHOUT DIFFERENTIAL Routine 10/26/2024 2:46 AM CIVIL ENGINEERING ASSISTANT POCT GLUCOSE DEVICE Routine 10/26/2024 2 :07 AM CIVIL ENGINEERING ASSISTANT POCT GLUCOSE DEVICE Routine 10/25/2024 8 :30 PM CIVIL ENGINEERING ASSISTANT POCT GLUCOSE DEVICE Routine 10/25/2024 5 :13 PM CIVIL ENGINEERING ASSISTANT POCT GLUCOSE DEVICE Routine 10/25/2024 1 2:08 PM CIVIL ENGINEERING ASSISTANT HEMOGLOBIN AND HEMATOCRIT STAT 10/25/2024 9:11 AM CIVIL ENGINEERING ASSISTANT CROSSMATCH STAT 10/25/2024 6:35 AM CIVIL ENGINEERING ASSISTANT ANTIBODY SCREEN STAT 10/25/2024 6:35 AM CIVIL ENGINEERING ASSISTANT ABO/RH STAT 10/25/2024 6:35 AM CIVIL ENGINEERING ASSISTANT TYPE AND SCREEN STAT 10/25/2024 6:35 AM CIVIL ENGINEERING ASSISTANT PROCALCITONIN Add-On 10/25/2024 3:16 AM CIVIL ENGINEERING ASSISTANT EGFR Routine 10/25/2024 3:16 AM CIVIL ENGINEERING ASSISTANT VANCOMYCIN LEVEL RANDOM Routine 10/25/2024 3:16 AM CIVIL ENGINEERING ASSISTANT BASIC METABOLIC PANEL Routine 10/25/2024 3:16 AM CIVIL ENGINEERING ASSISTANT CBC WITHOUT DIFFERENTIAL Routine 10/25/2024 3:16 AM CIVIL ENGINEERING ASSISTANT POCT GLUCOSE DEVICE Routine 10/25/2024 2 :18 AM CIVIL ENGINEERING ASSISTANT HEMODIALYSIS Routine 10/25/2024 12:30 AM CIVIL ENGINEERING ASSISTANT POCT GLUCOSE DEVICE Routine 10/24/2024 1 1:42 PM CIVIL ENGINEERING ASSISTANT POCT GLUCOSE DEVICE Routine 10/24/2024 8 :31 PM CIVIL ENGINEERING ASSISTANT POCT GLUCOSE DEVICE Routine 10/24/2024 8 :30 PM CIVIL ENGINEERING ASSISTANT POCT GLUCOSE DEVICE Routine 10/24/2024 4 :[address] HEAD WO CONTRAST IP Routine 10/24/2024 3 :12 PM CIVIL ENGINEERING ASSISTANT POCT GLUCOSE DEVICE Routine 10/24/2024 1 1:48 AM CIVIL ENGINEERING ASSISTANT FOLATE Add-On 10/24/2024 8:10 AM CIVIL ENGINEERING ASSISTANT VITAMIN B12 Add-On 10/24/2024 8:10 AM CIVIL ENGINEERING ASSISTANT FERRITIN Add-On 10/24/2024 8:10 AM CIVIL ENGINEERING ASSISTANT IRON PROFILE W/ IBC Add-On 10/24/2024 8 :10 AM CIVIL ENGINEERING ASSISTANT POCT GLUCOSE DEVICE Routine 10/24/2024 7 :53 AM CIVIL ENGINEERING ASSISTANT HEMOGLOBIN A1C Add-On 10/24/2024 3:36 AM CIVIL ENGINEERING ASSISTANT EGFR Routine 10/24/2024 3:36 AM CIVIL ENGINEERING ASSISTANT BASIC METABOLIC PANEL Routine 10/24/2024 3:36 AM CIVIL ENGINEERING ASSISTANT CBC WITHOUT DIFFERENTIAL Routine 10/24/2024 3:36 AM CIVIL ENGINEERING ASSISTANT BLOOD CULTURE Routine 10/24/2024 3:36 AM CIVIL ENGINEERING ASSISTANT POCT GLUCOSE DEVICE Routine 10/24/2024 3 :11 AM CIVIL ENGINEERING ASSISTANT POCT GLUCOSE DEVICE Routine 10/23/2024 9 :27 PM CIVIL ENGINEERING ASSISTANT BLOOD CULTURE Routine 10/23/2024 4:51 PM CIVIL ENGINEERING ASSISTANT POCT GLUCOSE DEVICE Routine 10/23/2024 4 :02 PM CIVIL ENGINEERING ASSISTANT POCT GLUCOSE DEVICE Routine 10/23/2024 1 2:10 PM CIVIL ENGINEERING ASSISTANT BLOOD GAS, ARTERIAL STAT 10/23/2024 9 :06 AM CIVIL ENGINEERING ASSISTANT POCT GLUCOSE DEVICE Routine 10/23/2024 8 :09 AM CIVIL ENGINEERING ASSISTANT HEMODIALYSIS Routine 10/23/2024 6:14 AM CIVIL ENGINEERING ASSISTANT BLOOD CULTURE Routine 10/23/2024 5:56 AM CIVIL ENGINEERING ASSISTANT EGFR Routine 10/23/2024 5:38 AM CIVIL ENGINEERING ASSISTANT PHOSPHORUS Routine 10/23/2024 5:38 AM CIVIL ENGINEERING ASSISTANT BASIC METABOLIC PANEL Routine 10/23/2024 5:38 AM CIVIL ENGINEERING ASSISTANT CBC WITHOUT DIFFERENTIAL Routine 10/23/2024 5:38 AM CIVIL ENGINEERING ASSISTANT MAGNESIUM Routine 10/23/2024 5:38 AM CIVIL ENGINEERING ASSISTANT BLOOD CULTURE Routine 10/23/2024 5:38 AM CIVIL ENGINEERING ASSISTANT POCT GLUCOSE DEVICE Routine 10/23/2024 5 :12 AM CIVIL ENGINEERING ASSISTANT POCT GLUCOSE DEVICE Routine 10/23/2024 1 2:06 AM CIVIL ENGINEERING ASSISTANT ECG 12-LEAD STAT 10/22/2024 8:24 PM CIVIL ENGINEERING ASSISTANT POCT GLUCOSE DEVICE Routine 10/22/2024 7 :18 PM CIVIL ENGINEERING ASSISTANT POCT GLUCOSE DEVICE Routine 10/22/2024 6 :36 PM CIVIL ENGINEERING ASSISTANT MRSA ONLY (STAPHYLOCOCCUS AUREUS) PCR Routine 10/22/2024 5:32 PM CIVIL ENGINEERING ASSISTANT TROPONIN T HIGH-SENSITIVITY 6-HOUR Timed 10/22/2024 5:04 PM CIVIL ENGINEERING ASSISTANT TROPONIN T HIGH-SENSITIVITY 4-HR Timed 10/22/2024 4:22 PM CIVIL ENGINEERING ASSISTANT POCT GLUCOSE DEVICE Routine 10/22/2024 4 :20 PM CIVIL ENGINEERING ASSISTANT MA CRITICAL CARE ILL/INJURED PATIENT INIT 30-74 MIN Routine 10/22/2024 3:53 PM CIVIL ENGINEERING ASSISTANT AMMONIA STAT 10/22/2024 2:17 PM CIVIL ENGINEERING ASSISTANT POCT GLUCOSE DEVICE Routine 10/22/2024 2 :01 PM CIVIL ENGINEERING ASSISTANT TROPONIN T HIGH-SENSITIVITY 2-HOUR Timed 10/22/2024 1:58 PM CIVIL ENGINEERING ASSISTANT BLOOD GAS, ARTERIAL STAT 10/22/2024 1 :49 PM CIVIL ENGINEERING ASSISTANT ANTIBODY SCREEN STAT 10/22/2024 12:32 PM CIVIL ENGINEERING ASSISTANT ABO/RH STAT 10/22/2024 12:32 PM CIVIL ENGINEERING ASSISTANT TYPE AND SCREEN STAT 10/22/2024 12:32 PM CIVIL ENGINEERING ASSISTANT SEPSIS LACTATE WITH REFLEX Routine 10/22/2024 12:32 PM CIVIL ENGINEERING ASSISTANT BLOOD CULTURE STAT 10/22/2024 11:24 AM CIVIL ENGINEERING ASSISTANT EGFR STAT 10/22/2024 11:20 AM CIVIL ENGINEERING ASSISTANT CRP (ACUTE PHASE) STAT 10/22/2024 11: 20 AM CIVIL ENGINEERING ASSISTANT PRO B-TYPE NATRIURETIC PEPTIDE STAT 10/22/2024 11:20 AM CIVIL ENGINEERING ASSISTANT TROPONIN T HIGH-SENSITIVITY SERIES (BASELINE, 2HR, 4HR, 6HR) STAT 10/22/2024 11:20 AM CIVIL ENGINEERING ASSISTANT COMPREHENSIVE METABOLIC PANEL STAT 10/22/2024 11:20 AM CIVIL ENGINEERING ASSISTANT BLOOD CULTURE STAT 10/22/2024 11:20 AM CIVIL ENGINEERING ASSISTANT ECG 12-LEAD Routine 10/22/2024 11:16 AM CIVIL ENGINEERING ASSISTANT XR CHEST 1 VIEW ED 10/22/2024 11:08 AM CIVIL ENGINEERING ASSISTANT DIFFERENTIAL AUTO STAT 10/22/2024 11: 03 AM CIVIL ENGINEERING ASSISTANT CBC WITH AUTO DIFFERENTIAL STAT 10/22/2024 11:03 AM CIVIL ENGINEERING ASSISTANT INFLUENZA A/B, RSV, AND COVID-19 PCR STAT 10/22/2024 11:03 AM CIVIL ENGINEERING ASSISTANT SEPSIS LACTATE WITH REFLEX Routine 10/22/2024 10:55 AM CIVIL ENGINEERING ASSISTANT BLOOD GAS, ARTERIAL STAT 10/22/2024 1 0:54 AM CIVIL ENGINEERING ASSISTANT POCT GLUCOSE DEVICE Routine 10/19/2024 1 2:19 PM CIVIL ENGINEERING ASSISTANT POCT GLUCOSE DEVICE Routine 10/19/2024 8 :24 AM CIVIL ENGINEERING ASSISTANT EGFR Routine 10/19/2024 2:27 AM CIVIL ENGINEERING ASSISTANT DIFFERENTIAL AUTO Routine 10/19/2024 2:2 7 AM CIVIL ENGINEERING ASSISTANT CBC WITH AUTO DIFFERENTIAL Routine 10/19/2024 2:27 AM CIVIL ENGINEERING ASSISTANT MAGNESIUM Routine 10/19/2024 2:27 AM CIVIL ENGINEERING ASSISTANT COMPREHENSIVE METABOLIC PANEL Routine 10/19/2024 2:27 AM CIVIL ENGINEERING ASSISTANT POCT GLUCOSE DEVICE Routine 10/19/2024 2 :17 AM CIVIL ENGINEERING ASSISTANT HEMODIALYSIS Routine 10/19/2024 12:31 AM CIVIL ENGINEERING ASSISTANT POCT GLUCOSE DEVICE Routine 10/18/2024 8 :18 PM CIVIL ENGINEERING ASSISTANT POCT GLUCOSE DEVICE Routine 10/18/2024 5 :10 PM CIVIL ENGINEERING ASSISTANT POCT GLUCOSE DEVICE Routine 10/18/2024 1 2:00 PM CIVIL ENGINEERING ASSISTANT POCT GLUCOSE DEVICE Routine 10/18/2024 9 :10 AM CIVIL ENGINEERING ASSISTANT EGFR Routine 10/18/2024 2:21 AM CIVIL ENGINEERING ASSISTANT DIFFERENTIAL AUTO Routine 10/18/2024 2:2 1 AM CIVIL ENGINEERING ASSISTANT CBC WITH AUTO DIFFERENTIAL Routine 10/18/2024 2:21 AM CIVIL ENGINEERING ASSISTANT MAGNESIUM Routine 10/18/2024 2:21 AM CIVIL ENGINEERING ASSISTANT COMPREHENSIVE METABOLIC PANEL Routine 10/18/2024 2:21 AM CIVIL ENGINEERING ASSISTANT POCT GLUCOSE DEVICE Routine 10/18/2024 2 :20 AM CIVIL ENGINEERING ASSISTANT POCT GLUCOSE DEVICE Routine 10/17/2024 8 :15 PM CIVIL ENGINEERING ASSISTANT POCT GLUCOSE DEVICE Routine 10/17/2024 4 :41 PM CIVIL ENGINEERING ASSISTANT POCT GLUCOSE DEVICE Routine 10/17/2024 1 2:43 PM CIVIL ENGINEERING ASSISTANT POCT GLUCOSE DEVICE Routine 10/17/2024 2 :13 AM CIVIL ENGINEERING ASSISTANT EGFR Routine 10/17/2024 12:13 AM CIVIL ENGINEERING ASSISTANT PHOSPHORUS Routine 10/17/2024 12:13 AM CIVIL ENGINEERING ASSISTANT DIFFERENTIAL AUTO Routine 10/17/2024 12: 13 AM CIVIL ENGINEERING ASSISTANT COMPREHENSIVE METABOLIC PANEL Routine 10/17/2024 12:13 AM CIVIL ENGINEERING ASSISTANT MAGNESIUM Routine 10/17/2024 12:13 AM CIVIL ENGINEERING ASSISTANT CBC WITH AUTO DIFFERENTIAL Routine 10/17/2024 12:13 AM CIVIL ENGINEERING ASSISTANT POTASSIUM LEVEL Timed 10/16/2024 9:06 PM CIVIL ENGINEERING ASSISTANT POCT GLUCOSE DEVICE Routine 10/16/2024 8 :49 PM CIVIL ENGINEERING ASSISTANT POTASSIUM LEVEL Timed 10/16/2024 5:31 PM CIVIL ENGINEERING ASSISTANT POCT GLUCOSE DEVICE Routine 10/16/2024 5 :12 PM CIVIL ENGINEERING ASSISTANT POCT GLUCOSE DEVICE Routine 10/16/2024 4 :04 PM CIVIL ENGINEERING ASSISTANT POCT GLUCOSE DEVICE Routine 10/16/2024 3 :11 PM CIVIL ENGINEERING ASSISTANT MA CRITICAL CARE ILL/INJURED PATIENT INIT 30-74 MIN Routine 10/16/2024 2:08 PM CIVIL ENGINEERING ASSISTANT POCT GLUCOSE DEVICE Routine 10/16/2024 1 :44 PM CIVIL ENGINEERING ASSISTANT ECG 12-LEAD STAT 10/16/2024 1:37 PM CIVIL ENGINEERING ASSISTANT EGFR STAT 10/16/2024 12:35 PM CIVIL ENGINEERING ASSISTANT COMPREHENSIVE METABOLIC PANEL STAT 10/16/2024 12:35 PM CIVIL ENGINEERING ASSISTANT ECG 12-LEAD STAT 10/16/2024 11:59 AM CIVIL ENGINEERING ASSISTANT DIFFERENTIAL AUTO STAT 10/16/2024 11: 49 AM CIVIL ENGINEERING ASSISTANT CBC WITH AUTO DIFFERENTIAL STAT 10/16/2024 11:49 AM CIVIL ENGINEERING ASSISTANT HEPATITIS PANEL, ACUTE Routine 10/07/2024 11:04 AM CIVIL ENGINEERING ASSISTANT OCCULT BLOOD, FECAL (FIT) Routine 08/02/2017 7:41 AM CIVIL ENGINEERING ASSISTANT HM MAMMOGRAPHY Routine 01/11/2002 COLONOSCOPY Routine 10/14/2001 from Last 3 Months or Most Recently Relevant to Health Maintenance Results * (ABNORMAL) POCT glucose (11/07/2024 4:07 PM CIVIL ENGINEERING ASSISTANT) Glucose, POC 232(H) 70 - 199 mg/dL Blood 11/07/2024 4:07 PM CIVIL ENGINEERING ASSISTANT 11/07/2024 4:07 PM CIVIL ENGINEERING ASSISTANT Marie Soto MD LAB POCT ORDERABLES - DEVICE Final Result Performing Organization Address [facility] Co de Phone Number NATANAELWON KARLA ([place]) 1 [facility] [employer] [place] [address] * (ABNORMAL) POCT glucose (11/07/2024 12:17 PM CIVIL ENGINEERING ASSISTANT) Glucose, POC 204(H) 70 - 199 mg/dL Blood 11/07/2024 12:1 7 PM CIVIL ENGINEERING ASSISTANT 11/07/2024 12:17 PM CIVIL ENGINEERING ASSISTANT Marie Soto MD LAB POCT ORDERABLES - DEVICE Final Result Performing Organization Address [facility] Co de Phone Number NATANAELWON ACOSTA ([place]) 1 [facility] [place] [employer] [place] [address] * (ABNORMAL) POCT glucose (11/07/2024 9:25 AM CIVIL ENGINEERING ASSISTANT) Glucose, POC 235(H) 70 - 199 mg/dL Blood 11/07/2024 9:25 AM CIVIL ENGINEERING ASSISTANT 11/07/2024 9:25 AM CIVIL ENGINEERING ASSISTANT Marie Soto MD LAB POCT ORDERABLES - DEVICE Final Result Performing Organization Address City/[facility]/ZIP Co de Phone Number JOHAN ACOSTA ([place]) 1 [facility] [place] [employer] [place] [address] * (ABNORMAL) POCT glucose (11/07/2024 7:43 AM CIVIL ENGINEERING ASSISTANT) Glucose, POC 218(H) 70 - 199 mg/dL Blood 11/07/2024 7:43 AM CIVIL ENGINEERING ASSISTANT 11/07/2024 7:43 AM CIVIL ENGINEERING ASSISTANT us Marie Soto MD LAB POCT ORDERABLES - DEVICE Final Result JOHAN ACOSTA ([place]) 1 [facility] [place] [employer] [place] [address] * POCT glucose (11/07/2024 3:26 AM CIVIL ENGINEERING ASSISTANT) [facility] Glucose, POC 177 70 - 199 mg/dL Blood 11/07/2024 3:26 AM CIVIL ENGINEERING ASSISTANT 11/07/2024 3:26 AM CIVIL ENGINEERING ASSISTANT us Eliazar Neal II, MD LAB POCT ORDERABLES - DEVICE Final Result Performing Organization Address City/[facility]/ZIP Co de Phone Number JOHAN ACOSTA ([place]) 1 [facility] [place] [address] * (ABNORMAL) eGFR (11/07/2024 2:34 AM CIVIL ENGINEERING ASSISTANT) [facility] eGFR 8(L) >=60 mL/min/1. 73 m2 Comment: Interpretive Data Reference Interval Normal >/= 90 mL/min/1.73m2 Mildly decreased* 60 - 89 mL/min/1.73m2 Mildly to moderately decreased 45 - 59 mL/min/1.73m2 Moderately to severely decreased 30 - 44 mL/min/1.73m2 Severely decreased 15 - 29 mL/min/1.73m2 Kidney Failure < 15 mL/min/1.73m2 *Relative to young adult level Estimated glomerular filtration rate is determined by the 2020 CKD-EPI equation recommended by the [employer] (A Unifying Approach to GFR Estimation: Recommendations of the NKF-ASK Task Force on Reassessing the Inclusion of Race in Diagnosing Kidney Disease, JASN 2020). The CKD-EPI equation should not be used for patients with unstable renal function and has not been validated in children and those over 70. Current interpretive data was last reviewed 2021. Blood 11/07/2024 2:34 AM CIVIL ENGINEERING ASSISTANT 11/07/2024 4:29 AM CIVIL ENGINEERING ASSISTANT us Marek Pierre MD LAB BLOOD ORDERABLES Final Resu lt [facility] (FAN) 1 [facility] [place] [address] * (ABNORMAL) Comprehensive metabolic panel (11/07/2024 2:34 AM CIVIL ENGINEERING ASSISTANT) Sodium 139 135 - 145 mmol/L Potassium, pl 5.5(H) 3.3 - 4.9 mmol/L [facility] (FAN) Chloride 100 97 - 110 mmol/L [facility] ([place]AN) CO2 23 22 - 32 mmol/L [facility] (FAN) Anion gap 17(H) 2 - 15 mmol/L [facility] (FAN) BUN 87(H) 6 - 25 mg/dL [facility] (FAN) Creatinine 5.37(H) 0.60 - 1.10 mg/dL [facility] ([place]AN) Glucose 169 70 - 199 mg/dL [facility] ([facility]) Comment: Interpretive Data Fasting glucose >/= 126 mg/dl is diagnostic for diabetes. Fasting is defined as no caloric intake for at least 8 hours. Fasting glucose between 100 mg/dl to 125 mg/dl is diagnostic of prediabetes. In a patient with classic symptoms of hyperglycemia or hyperglycemic crisis, a random glucose >/= 200 mg/dl is diagnostic for diabetes. In the absence of unequivocal hyperglycemia, results should be confirmed by repeat testing. The classification and Diagnosis of Diabetes Diabetes Care 2021; 46: S19-S40. Current interpretive data was last revised 2022. Calcium 8.7 8.5 - 10.3 mg/dL [facility] ([facility]) Bilirubin, total 0.3 0.1 - 1.2 mg/dL [facility] ([facility]) Protein, pl 5.9(L) 6.5 - 8.5 g/dL [facility] ([facility]) Albumin 3.7 3.5 - 5.0 g/dL [facility] ([facility]) Alk phos 89 40 - 130 Units/L [facility] ([facility]) ALT 16 7 - 45 Units/L [facility] ([facility]) AST 12 10 - 45 Units/L [facility] ([facility]) Comment:Slightly Hemolyzed S pecimen Blood 11/07/2024 2:34 AM CIVIL ENGINEERING ASSISTANT 11/07/2024 4:29 AM CIVIL ENGINEERING ASSISTANT us Marek Pierre MD LAB BLOOD ORDERABLES Final Resu lt [facility] ([place]) 1 [facility] [place] [address] * (ABNORMAL) POCT glucose (11/06/2024 11:15 PM CIVIL ENGINEERING ASSISTANT) Glucose, POC 239(H) 70 - 199 mg/dL Blood 11/06/2024 11:1 5 PM CIVIL ENGINEERING ASSISTANT 11/06/2024 11:15 PM CIVIL ENGINEERING ASSISTANT us Eliazar Neal II, MD LAB POCT ORDERABLES - DEVICE Final Result Performing Organization Address [facility]/ZIP Co de Phone Number [facility]OHAN [facility] ([place]) 1 [facility] [place] [address] * (ABNORMAL) POCT glucose (11/06/2024 8:00 PM CIVIL ENGINEERING ASSISTANT) Glucose, POC 303(H) 70 - 199 mg/dL Blood 11/06/2024 8:00 PM CIVIL ENGINEERING ASSISTANT 11/06/2024 8:00 PM CIVIL ENGINEERING ASSISTANT us Eliazar Neal II, MD LAB POCT ORDERABLES - DEVICE Final Result Performing Organization Address City/[facility]/ZIP Co de Phone Number [facility]AN [facility] ([place]) 1 [facility] [place] [address] * (ABNORMAL) POCT glucose (11/06/2024 6:20 PM CIVIL ENGINEERING ASSISTANT) Glucose, POC 308(H) 70 - 199 mg/dL Blood 11/06/2024 6:20 PM CIVIL ENGINEERING ASSISTANT 11/06/2024 6:20 PM CIVIL ENGINEERING ASSISTANT Eliazar Neal II, MD LAB POCT ORDERABLES - DEVICE Final Result [facility] ([place]) 1 [facility] [place] [address] * (ABNORMAL) POCT glucose (11/06/2024 5:18 PM CIVIL ENGINEERING ASSISTANT) Pathologist [facility] Glucose, POC 310(H) 70 - 199 mg/dL Blood 11/06/2024 5:18 PM CIVIL ENGINEERING ASSISTANT 11/06/2024 5:18 PM CIVIL ENGINEERING ASSISTANT Eliazar Neal II, MD LAB POCT ORDERABLES - DEVICE Final Result Performing Organization Address City/[facility] Co de Phone Number [facility] ([place]) 1 [facility] [place] [address] * POCT glucose (11/06/2024 12:16 PM CIVIL ENGINEERING ASSISTANT) Glucose, POC 195 70 - 199 mg/dL Blood 11/06/2024 12:1 6 PM CIVIL ENGINEERING ASSISTANT 11/06/2024 12:16 PM CIVIL ENGINEERING ASSISTANT Eliazar Neal II, MD LAB POCT ORDERABLES - DEVICE Final Result Performing Organization Address City/[facility] Co de Phone Number [facility]AN [facility] ([place]) 1 [facility] [place] [address] * (ABNORMAL) eGFR (11/06/2024 7:34 AM CIVIL ENGINEERING ASSISTANT) Pathologist [facility] eGFR 10(L) >=60 mL/min/1. 73 m2 Comment: Interpretive Data Reference Interval Normal >/= 90 mL/min/1.73m2 Mildly decreased* 60 - 89 mL/min/1.73m2 Mildly to moderately decreased 45 - 59 mL/min/1.73m2 Moderately to severely decreased 30 - 44 mL/min/1.73m2 Severely decreased 15 - 29 mL/min/1.73m2 Kidney Failure < 15 mL/min/1.73m2 *Relative to young adult level Estimated glomerular filtration rate is determined by the 2020 CKD-EPI equation recommended by the National Kidney Foundation (A Unifying Approach to GFR Estimation: Recommendations of the NKF-ASK Task Force on Reassessing the Inclusion of Race in Diagnosing Kidney Disease, JASN 2020). The CKD-EPI equation should not be used for patients with unstable renal function and has not been validated in children and those over 70. Current interpretive data was last reviewed 2021. Blood 11/06/2024 7:34 AM CIVIL ENGINEERING ASSISTANT 11/06/2024 8:18 AM CIVIL ENGINEERING ASSISTANT us Marek Pierre MD LAB BLOOD ORDERABLES Final Resu lt [facility] ([place]) 1 [facility] Department of Laboratories [place], [place] [id number] * Differential, auto (11/06/2024 7:34 AM CIVIL ENGINEERING ASSISTANT) Neutrophil abs 5.0 1.5 - 6.5 K/cumm Imm gran abs 0.1 0.0 - 0.1 K/cumm [facility] ([facility]) Lymphocyte abs 1.3 0.8 - 3.3 K/cumm [facility] ([facility]) Monocyte abs 0.5 0.2 - 0.8 K/cumm [facility] ([facility]) Eosinophil abs 0.0 0.0 - 0.5 K/cumm [facility] ([facility]) Basophil abs 0.0 0.0 - 0.1 K/cumm [facility] ([facility]) Neutrophil pct 73.1 % [facility] ([facility]) Comment: Interpretive Data Percent cell count reference ranges are not reported, since discordance with absolute values may lead to misinterpretation of CBC data. Current Interpretive Data was last revised on 2017. Imm gran pct 1.2 % [facility] ([facility]) Comment: Interpretive Data Percent cell count reference ranges are not reported, since discordance with absolute values may lead to misinterpretation of CBC data. Current Interpretive Data was last revised on 2017. Lymphocyte pct 18.9 % [facility] ([facility]) Comment: Interpretive Data Percent cell count reference ranges are not reported, since discordance with absolute values may lead to misinterpretation of CBC data. Current Interpretive Data was last revised on 2017. Monocyte pct 6.8 % [facility] ([facility]) Comment: Interpretive Data Percent cell count reference ranges are not reported, since discordance with absolute values may lead to misinterpretation of CBC data. Current Interpretive Data was last revised on 2017. Eosinophil pct 0.0 % [facility] ([facility]) Comment: Interpretive Data Percent cell count reference ranges are not reported, since discordance with absolute values may lead to misinterpretation of CBC data. Current Interpretive Data was last revised on 2017. Basophil pct 0.0 % [facility] ([facility]) Comment: Interpretive Data Percent cell count reference ranges are not reported, since discordance with absolute values may lead to misinterpretation of CBC data. Current Interpretive Data was last revised on 2017. Blood 11/06/2024 7:34 AM CIVIL ENGINEERING ASSISTANT 11/06/2024 8:18 AM CIVIL ENGINEERING ASSISTANT us Eliazar Neal II, MD LAB BLOOD ORDERABLES F inal Result [facility]OHAN [facility]COSTA ([place]) 1 [facility] Department [place] [address] * (ABNORMAL) CBC with auto differential (11/06/2024 7:34 AM CIVIL ENGINEERING ASSISTANT) WBC 6.9 3.8 - 9.9 K/cumm Hgb 8.5(L) 11.9 - 15.5 g/dL [facility] ([facility]) Hct 27.0(L) 35.6 - 45.5 % [facility] ([facility]) Plt 124(L) 150 - 400 K/cumm [facility] ([facility]) MPV 10.5 9.1 - 12.3 fL [facility] ([facility]) RBC 2.80(L) 3.90 - 5.20 M/cumm [facility] ([facility]) MCV 96.4 81.3 - 96.4 fL [facility] ([facility]) MCH 30.4 27.1 - 33.3 pg [facility] ([facility]) MCHC 31.5(L) 32.3 - 35.7 g/dL [facility] ([facility]) RDW CV 15.9(H) 11.1 - 14.9 % [facility] ([facility]) RDW SD 55.2(H) 35.7 - 48.1 fL [facility] ([facility]) NRBC abs 0.00 0.00 - 0.01 K/cumm [facility] ([facility]) Blood 11/06/2024 7:34 AM CIVIL ENGINEERING ASSISTANT 11/06/2024 8:18 AM CIVIL ENGINEERING ASSISTANT us Eliazar Neal II, MD LAB BLOOD ORDERABLES F inal Result [facility] ([facility]) 1 [facility] Department of Laboratories [place] [id number] * (ABNORMAL) Comprehensive metabolic panel (11/06/2024 7:34 AM CIVIL ENGINEERING ASSISTANT) Sodium 138 135 - 145 mmol/L Potassium, pl 5.3(H) 3.3 - 4.9 mmol/L [facility] ([facility]) Chloride 100 97 - 110 mmol/L [facility] ([facility]) CO2 24 22 - 32 mmol/L [facility] ([facility]) Anion gap 14 2 - 15 mmol/L [facility] ([facility]) BUN 64(H) 6 - 25 mg/dL [facility] ([facility]) Creatinine 4.51(H) 0.60 - 1.10 mg/dL [facility] ([facility]) Glucose 169 70 - 199 mg/dL [facility] ([facility]) Comment: Interpretive Data Fasting glucose >/= 126 mg/dl is diagnostic for diabetes. Fasting is defined as no caloric intake for at least 8 hours. Fasting glucose between 100 mg/dl to 125 mg/dl is diagnostic of prediabetes. In a patient with classic symptoms of hyperglycemia or hyperglycemic crisis, a random glucose >/= 200 mg/dl is diagnostic for diabetes. In the absence of unequivocal hyperglycemia, results should be confirmed by repeat testing. The classification and Diagnosis of Diabetes Diabetes Care 2021; 46: S19-S40. Current interpretive data was last revised 2022. Calcium 8.8 8.5 - 10.3 mg/dL [facility] ([facility]) Bilirubin, total 0.3 0.1 - 1.2 mg/dL [facility] ([facility]) Protein, pl 5.9(L) 6.5 - 8.5 g/dL [facility] ([facility]) Albumin 3.7 3.5 - 5.0 g/dL [facility] ([facility]) Alk phos 84 40 - 130 Units/L [facility] ([facility]) ALT 16 7 - 45 Units/L [facility] ([facility]) AST 13 10 - 45 Units/L [facility] ([facility]) Blood 11/06/2024 7:34 AM CIVIL ENGINEERING ASSISTANT 11/06/2024 8:18 AM CIVIL ENGINEERING ASSISTANT us Marek Pierre MD LAB BLOOD ORDERABLES Final Resu lt Performing Organization Address City/[facility]/ZIP Co de Phone Number [facility] 1 [facility] [employer] [place] [address] * POCT glucose (11/06/2024 7:23 AM CIVIL ENGINEERING ASSISTANT) Glucose, POC 166 70 - 199 mg/dL Blood 11/06/2024 7:23 AM CIVIL ENGINEERING ASSISTANT 11/06/2024 7:23 AM CIVIL ENGINEERING ASSISTANT us Eliazar Neal II, MD LAB POCT ORDERABLES - DEVICE Final Result Performing Organization Address City/[facility]/ZIP Co de Phone Number [facility] 1 [facility] [employer] [place] [address] * (ABNORMAL) POCT glucose (11/06/2024 4:16 AM CIVIL ENGINEERING ASSISTANT) Glucose, POC 203(H) 70 - 199 mg/dL Blood 11/06/2024 4:16 AM CIVIL ENGINEERING ASSISTANT 11/06/2024 4:16 AM CIVIL ENGINEERING ASSISTANT Eliazar Neal II, MD LAB POCT ORDERABLES - DEVICE Final Result Performing Organization Address [facility] de Phone Number [facility] ([place]) 1 [facility] [place] [address] * POCT glucose (11/05/2024 11:46 PM CIVIL ENGINEERING ASSISTANT) Glucose, POC 141 70 - 199 mg/dL Blood 11/05/2024 11:4 6 PM CIVIL ENGINEERING ASSISTANT 11/05/2024 11:46 PM CIVIL ENGINEERING ASSISTANT Eliazar Neal II, MD LAB POCT ORDERABLES - DEVICE Final Result Performing Organization Address [facility] de Phone Number JOHAN [facility] ([place]) 1 [facility] [place] [address] * POCT glucose (11/05/2024 8:19 PM CIVIL ENGINEERING ASSISTANT) Glucose, POC 167 70 - 199 mg/dL Blood 11/05/2024 8:19 PM CIVIL ENGINEERING ASSISTANT 11/05/2024 8:19 PM CIVIL ENGINEERING ASSISTANT Eliazar Neal II, MD LAB POCT ORDERABLES - DEVICE Final Result Performing Organization Address [facility] de Phone Number [facility] ([place]) 1 [facility] [place] [address] * (ABNORMAL) POCT glucose (11/05/2024 5:21 PM CIVIL ENGINEERING ASSISTANT) Glucose, POC 230(H) 70 - 199 mg/dL Blood 11/05/2024 5:21 PM CIVIL ENGINEERING ASSISTANT 11/05/2024 5:21 PM CIVIL ENGINEERING ASSISTANT us Eliazar Neal II, MD LAB POCT ORDERABLES - DEVICE Final Result Performing Organization Address City/[facility]/ZIP Co de Phone Number JOHAN ACOSTA ([place]) 1 [facility] [place] [address] * (ABNORMAL) POCT glucose (11/05/2024 11:41 AM CIVIL ENGINEERING ASSISTANT) Glucose, POC 214(H) 70 - 199 mg/dL Blood 11/05/2024 11:4 1 AM CIVIL ENGINEERING ASSISTANT 11/05/2024 11:41 AM CIVIL ENGINEERING ASSISTANT us Eliazar Neal II, MD LAB POCT ORDERABLES - DEVICE Final Result Performing Organization Address [facility] Co de Phone Number [facility]OHAN A[facility]STA ([place]) 1 [facility] [place] [address] * (ABNORMAL) POCT glucose (11/05/2024 7:41 AM CIVIL ENGINEERING ASSISTANT) [facility] Glucose, POC 219(H) 70 - 199 mg/dL Blood 11/05/2024 7:41 AM CIVIL ENGINEERING ASSISTANT 11/05/2024 7:41 AM CIVIL ENGINEERING ASSISTANT us Eliazar Neal II, MD LAB POCT ORDERABLES - DEVICE Final Result Performing Organization Address [facility] Co de Phone Number [facility]AN [facility] ([place]) 1 [facility] [place] [address] * (ABNORMAL) eGFR (11/05/2024 7:24 AM CIVIL ENGINEERING ASSISTANT) eGFR 12(L) >=60 mL/min/1. 73 m2 Comment: Interpretive Data Reference Interval Normal >/= 90 mL/min/1.73m2 Mildly decreased* 60 - 89 mL/min/1.73m2 Mildly to moderately decreased 45 - 59 mL/min/1.73m2 Moderately to severely decreased 30 - 44 mL/min/1.73m2 Severely decreased 15 - 29 mL/min/1.73m2 Kidney Failure < 15 mL/min/1.73m2 *Relative to young adult level Estimated glomerular filtration rate is determined by the 2020 CKD-EPI equation recommended by the National Kidney Foundation (A Unifying Approach to GFR Estimation: Recommendations of the NKF-ASK Task Force on Reassessing the Inclusion of Race in Diagnosing Kidney Disease, JASN 2020). The CKD-EPI equation should not be used for patients with unstable renal function and has not been validated in children and those over 70. Current interpretive data was last reviewed 2021. Blood 11/05/2024 7:24 AM CIVIL ENGINEERING ASSISTANT 11/05/2024 7:48 AM CIVIL ENGINEERING ASSISTANT us Marek Pierre MD LAB BLOOD ORDERABLES Final Resu lt [facility] ([place]) 1 [facility] Department [place] [address] * (ABNORMAL) Differential, auto (11/05/2024 7:24 AM CIVIL ENGINEERING ASSISTANT) Neutrophil abs 6.0 1.5 - 6.5 K/cumm Imm gran abs 0.1 0.0 - 0.1 K/cumm [facility] ([place]) Lymphocyte abs 0.3(L) 0.8 - 3.3 K/cumm [facility] ([place]) Monocyte abs 0.2 0.2 - 0.8 K/cumm [facility] ([facility]) Eosinophil abs 0.0 0.0 - 0.5 K/cumm [facility] ([facility]) Basophil abs 0.0 0.0 - 0.1 K/cumm [facility] ([facility]) Neutrophil pct 90.5 % [facility] ([facility]) Comment: Interpretive Data Percent cell count reference ranges are not reported, since discordance with absolute values may lead to misinterpretation of CBC data. Current Interpretive Data was last revised on 2017. Imm gran pct 1.1 % [facility] ([place]) Comment: Interpretive Data Percent cell count reference ranges are not reported, since discordance with absolute values may lead to misinterpretation of CBC data. Current Interpretive Data was last revised on 2017. Lymphocyte pct 4.7 % [facility] ([facility]) Comment: Interpretive Data Percent cell count reference ranges are not reported, since discordance with absolute values may lead to misinterpretation of CBC data. Current Interpretive Data was last revised on 2017. Monocyte pct 3.5 % [facility] ([place]) Comment: Interpretive Data Percent cell count reference ranges are not reported, since discordance with absolute values may lead to misinterpretation of CBC data. Current Interpretive Data was last revised on 2017. Eosinophil pct 0.0 % [facility] ([facility]) Comment: Interpretive Data Percent cell count reference ranges are not reported, since discordance with absolute values may lead to misinterpretation of CBC data. Current Interpretive Data was last revised on 2017. Basophil pct 0.2 % [facility] ([place]) Comment: Interpretive Data Percent cell count reference ranges are not reported, since discordance with absolute values may lead to misinterpretation of CBC data. Current Interpretive Data was last revised on 2017. Blood 11/05/2024 7:24 AM CIVIL ENGINEERING ASSISTANT 11/05/2024 7:48 AM CIVIL ENGINEERING ASSISTANT us Eliazar Neal II, MD LAB BLOOD ORDERABLES F inal Result [facility] ([place]) 1 [facility] Department [place] [address] * (ABNORMAL) CBC with auto differential (11/05/2024 7:24 AM CIVIL ENGINEERING ASSISTANT) WBC 6.7 3.8 - 9.9 K/cumm Hgb 8.1(L) 11.9 - 15.5 g/dL [facility] ([place]) Hct 25.5(L) 35.6 - 45.5 % [facility] ([place]) Plt 111(L) 150 - 400 K/cumm [facility] ([place]) MPV 10.7 9.1 - 12.3 fL [facility] ([place]) RBC 2.69(L) 3.90 - 5.20 M/cumm [facility] ([place]) MCV 94.8 81.3 - 96.4 fL [facility] ([place]) MCH 30.1 27.1 - 33.3 pg [facility] ([place]) MCHC 31.8(L) 32.3 - 35.7 g/dL [facility] ([place]) RDW CV 15.9(H) 11.1 - 14.9 % [facility] ([place]) RDW SD 54.4(H) 35.7 - 48.1 fL [facility] ([facility]) NRBC abs 0.00 0.00 - 0.01 K/cumm [facility] ([facility]) Blood 11/05/2024 7:24 AM CIVIL ENGINEERING ASSISTANT 11/05/2024 7:48 AM CIVIL ENGINEERING ASSISTANT us Eliazar Neal II, MD LAB BLOOD ORDERABLES F inal Result [facility] ACOSTA ([place]) 1 [facility] Department [place] [address] * Lipid panel (11/05/2024 7:24 AM CIVIL ENGINEERING ASSISTANT) Cholesterol 184 30 - 199 mg/dL Comment: Interpretive Data Ages < or = 19 years Acceptable: <170 mg/dL Borderline high: 170-199 mg/dL High: >or= 200 mg/dL Ages > or = 20 years Desirable: <200 mg/dL Borderline high: 200-239 mg/dL High: >or= 240 mg/dL Literature References: 1. Expert Panel on Integrated Guidelines for Cardiovascular Health and Risk Reduction in Children and Adolescents. Pediatrics 2011;128:S213 2. NCEP Expert Panel. Circulation 2004;110:227 Current Interpretive Data was last revised on 2018. Triglycerides 136 <=149 mg/dL [facility] ([place]) Comment: Interpretive Data Ages < or = 9 years Acceptable: <75 mg/dL Borderline high: 75-99 mg/dL High: >or= 100 mg/dL Ages 10 to 20 years Acceptable: <90 mg/dL Borderline high: 90-129 mg/dL High: >or= 130 mg/dL Ages > or = 20 years Desirable: <150 mg/dL Borderline high: 150-199 mg/dL High: 200-499 mg/dL Very high: >or= 499 mg/dL Literature References: 1. Expert Panel on Integrated Guidelines for Cardiovascular Health and Risk Reduction in Children and Adolescents. Pediatrics 2011;128:S213 2. NCEP Expert Panel. Circulation 2004;110:227 Current Interpretive Data was last revised on 2018. HDL 50 >=40 mg/dL [facility] [place] ([place]) Comment: Interpretive Data Ages < or = 19 years Acceptable: >45 mg/dL Borderline low: 40-45 mg/dL Low: <40 mg/dL Ages > or = 20 years Desirable: >or= 60 mg/dL Low: <40 mg/dL Literature References: 1. Expert Panel on Integrated Guidelines for Cardiovascular Health and Risk Reduction in Children and Adolescents. Pediatrics 2011;128:S213 2. NCEP Expert Panel. Circulation 2004;110:227 Current Interpretive Data was last revised on 2018. LDL, calculated 110 <=129 mg/dL [facility] ([place]) Comment: Interpretive Data Ages < or = 19 years Acceptable: <110 mg/dL Borderline high: 110-129 mg/dL High: >or= 130 mg/dL Ages > or = 20 years Optimal: <100 mg/dL Near optimal: 100-129 mg/dL Borderline high: 130-159 mg/dL High: >160 mg/dL Calculated using the Gurpreet LDL-C estimating equation. This equation was implemented on 2024. Prior to this date LDL-C was estimated using the Friedewald equation. Literature References: 1. Expert Panel on Integrated Guidelines for Cardiovascular Health and Risk Reduction in Children and Adolescents. Pediatrics 2011;128:S213 2. NCEP Expert Panel. Circulation 2004;110:227 3. Gurpreet Dockery et al. DARIN Cardiol. 2019January 11;5(5):540-548. doi: 10.1001/[email or web address] Current Interpretive Data was last revised on 2024. Non-HDL Cholesterol 134 mg/dL [facility] ([place]) Comment: Interpretive Data Ages < or = 19 years Acceptable: <120 mg/dL Borderline high: 120-144 mg/dL High: >145 mg/dL Ages > or = 20 years When triglycerides are >200 mg/dL, Non-HDL cholesterol is a secondary target of therapy with treatment goals that are 30 mg/dL greater than the LDL cholesterol target. Literature References: 1. Expert Panel on Integrated Guidelines for Cardiovascular Health and Risk Reduction in Children and Adolescents. Pediatrics 2011;128:S213 2. NCEP Expert Panel. Circulation 2004;110:227 Current Interpretive Data was last revised on 2018. Chol/HDL ratio 4 [facility] ([facility]) Blood 11/05/2024 7:24 AM CIVIL ENGINEERING ASSISTANT 11/05/2024 7:48 AM CIVIL ENGINEERING ASSISTANT us Eliazar Neal II, MD LAB BLOOD ORDERABLES F inal Result [facility] ([place]) 1 [facility] Department [place] [address] * (ABNORMAL) Comprehensive metabolic panel (11/05/2024 7:24 AM CIVIL ENGINEERING ASSISTANT) Sodium 139 135 - 145 mmol/L Potassium, pl 5.1(H) 3.3 - 4.9 mmol/L [facility] ([place]) Chloride 101 97 - 110 mmol/L [facility] ([place]) CO2 25 22 - 32 mmol/L [facility] ([place]) Anion gap 14 2 - 15 mmol/L [facility] ([place]) BUN 49(H) 6 - 25 mg/dL [facility] ([place]) Creatinine 3.95(H) 0.60 - 1.10 mg/dL [facility] ([place]) Glucose 217(H) 70 - 199 mg/dL [facility] ([place]) Comment: Interpretive Data Fasting glucose >/= 126 mg/dl is diagnostic for diabetes. Fasting is defined as no caloric intake for at least 8 hours. Fasting glucose between 100 mg/dl to 125 mg/dl is diagnostic of prediabetes. In a patient with classic symptoms of hyperglycemia or hyperglycemic crisis, a random glucose >/= 200 mg/dl is diagnostic for diabetes. In the absence of unequivocal hyperglycemia, results should be confirmed by repeat testing. The classification and Diagnosis of Diabetes Diabetes Care 2021; 46: S19-S40. Current interpretive data was last revised 2022. Calcium 8.7 8.5 - 10.3 mg/dL [facility] ([place]) Bilirubin, total 0.2 0.1 - 1.2 mg/dL [facility] ([place]) Protein, pl 6.1(L) 6.5 - 8.5 g/dL [facility] ([place]) Albumin 3.7 3.5 - 5.0 g/dL [facility] ([place]) Alk phos 82 40 - 130 Units/L [facility] ([place]) ALT 14 7 - 45 Units/L [facility] ([place]) AST 12 10 - 45 Units/L [facility] ([place]) Comment:Slightly Hemolyzed S pecimen Blood 11/05/2024 7:24 AM CIVIL ENGINEERING ASSISTANT 11/05/2024 7:48 AM CIVIL ENGINEERING ASSISTANT us Marek Pierre MD LAB BLOOD ORDERABLES Final Resu lt [facility] ([place]) 1 [facility] [place] [address] * (ABNORMAL) POCT glucose (11/05/2024 3:44 AM CIVIL ENGINEERING ASSISTANT) Glucose, POC 269(H) 70 - 199 mg/dL Blood 11/05/2024 3:44 AM CIVIL ENGINEERING ASSISTANT 11/05/2024 3:44 AM CIVIL ENGINEERING ASSISTANT us Eliazar Neal II, MD LAB POCT ORDERABLES - DEVICE Final Result Performing Organization Address [facility] Co de Phone Number [facility] ([place]) 1 [facility] [place] [address] * (ABNORMAL) POCT glucose (11/04/2024 11:55 PM CIVIL ENGINEERING ASSISTANT) Glucose, POC 254(H) 70 - 199 mg/dL Blood 11/04/2024 11:5 5 PM CIVIL ENGINEERING ASSISTANT 11/04/2024 11:55 PM CIVIL ENGINEERING ASSISTANT Eliazar Neal II, MD LAB POCT ORDERABLES - DEVICE Final Result Performing Organization Address [facility]/ZIP Co de Phone Number [facility] ([place]) 1 [facility] [place] [address] * (ABNORMAL) POCT glucose (11/04/2024 7:59 PM CIVIL ENGINEERING ASSISTANT) Glucose, POC 284(H) 70 - 199 mg/dL Blood 11/04/2024 7:59 PM CIVIL ENGINEERING ASSISTANT 11/04/2024 7:59 PM CIVIL ENGINEERING ASSISTANT Eliazar Neal II, MD LAB POCT ORDERABLES - DEVICE Final Result [facility] ([place]) 1 [facility] [place] [address] * (ABNORMAL) POCT glucose (11/04/2024 4:10 PM CIVIL ENGINEERING ASSISTANT) [facility] Glucose, POC 350(H) 70 - 199 mg/dL Blood 11/04/2024 4:10 PM CIVIL ENGINEERING ASSISTANT 11/04/2024 4:10 PM CIVIL ENGINEERING ASSISTANT us Eliazar Neal II, MD LAB POCT ORDERABLES - DEVICE Final Result Performing Organization Address City/[facility]/ZIP Co de Phone Number [facility] ([place]) 1 [facility] [place] [address] * POCT glucose (11/04/2024 1:01 PM CIVIL ENGINEERING ASSISTANT) Glucose, POC 185 70 - 199 mg/dL Blood 11/04/2024 1:01 PM CIVIL ENGINEERING ASSISTANT 11/04/2024 1:01 PM CIVIL ENGINEERING ASSISTANT Eliazar Neal II, MD LAB POCT ORDERABLES - DEVICE Final Result Performing Organization Address City/[facility]/ZIP Co de Phone Number JOHAN ACOSTA ([place]) 1 [facility] [place] [address] * (ABNORMAL) eGFR (11/04/2024 8:30 AM CIVIL ENGINEERING ASSISTANT) Pathologist [facility] eGFR 9(L) >=60 mL/min/1. 73 m2 Comment: Interpretive Data Reference Interval Normal >/= 90 mL/min/1.73m2 Mildly decreased* 60 - 89 mL/min/1.73m2 Mildly to moderately decreased 45 - 59 mL/min/1.73m2 Moderately to severely decreased 30 - 44 mL/min/1.73m2 Severely decreased 15 - 29 mL/min/1.73m2 Kidney Failure < 15 mL/min/1.73m2 *Relative to young adult level Estimated glomerular filtration rate is determined by the 2020 CKD-EPI equation recommended by the National Kidney Foundation (A Unifying Approach to GFR Estimation: Recommendations of the NKF-ASK Task Force on Reassessing the Inclusion of Race in Diagnosing Kidney Disease, JASN 2020). The CKD-EPI equation should not be used for patients with unstable renal function and has not been validated in children and those over 70. Current interpretive data was last reviewed 2021. Blood 11/04/2024 8:30 AM CIVIL ENGINEERING ASSISTANT 11/04/2024 8:43 AM CIVIL ENGINEERING ASSISTANT us Marek Pierre MD LAB BLOOD ORDERABLES Final Resu lt JOHAN [facility] 1 [facility] Department of Laboratories [place] [id number] * Hepatitis B surface antibody (immune status) Blood (11/04/2024 8:30 AM CIVIL ENGINEERING ASSISTANT) HBsAb (immune status) Nonreactive Comment: Interpretive Data Nonreactive: This result is consistent with a lack of immunity to Hepatitis B Virus when used in the setting of routine screening. Equivocal: The immune status of the individual should be further assessed, if appropriate, after consideration of clinical status, risk factors, and additional diagnostic information. Reactive: This result is consistent with immunity to Hepatitis B Virus when used in the setting of routine screening. Current interpretive data was last revised on 19. Testing performed by: [facility], [address] [place] [address], [place]., [address] Blood 11/04/2024 8:30 AM CIVIL ENGINEERING ASSISTANT 11/04/2024 11:08 AM CIVIL ENGINEERING ASSISTANT us Miguel Jamison MD LAB MICROBIOLOGY - GENER AL ORDERABLES Final Result JOHAN ACOSTA ([place]) 1 [facility] Department [place] [address] * Hepatitis B Surface Antigen Blood (11/04/2024 8:30 AM CIVIL ENGINEERING ASSISTANT) Pathologist [facility] HepBsAg Nonreactive Nonreactive Comment:Testing performed by : [facility], [address] [place] [address], [place]., [address] Blood 11/04/2024 8:30 AM CIVIL ENGINEERING ASSISTANT 11/04/2024 11:08 AM CIVIL ENGINEERING ASSISTANT us Miguel Jamison MD LAB MICROBIOLOGY - GENER AL ORDERABLES Final Result Performing Organization Address [facility] Co de Phone Number JOHAN ACOSTA ([place]) 1 [facility] Department [place] [address] * (ABNORMAL) Comprehensive metabolic panel (11/04/2024 8:30 AM CIVIL ENGINEERING ASSISTANT) Pathologist [facility] Sodium 133(L) 135 - 145 mmol/L Potassium, pl 5.4(H) 3.3 - 4.9 mmol/L [facility] ([place]) Chloride 94(L) 97 - 110 mmol/L [facility] ([place]) CO2 25 22 - 32 mmol/L [facility] ([place]) Anion gap 14 2 - 15 mmol/L [facility] ([place]) BUN 58(H) 6 - 25 mg/dL [facility] ([place]) Creatinine 5.23(H) 0.60 - 1.10 mg/dL [facility] ([place]) Glucose 254(H) 70 - 199 mg/dL [facility] ([place]) Comment: Interpretive Data Fasting glucose >/= 126 mg/dl is diagnostic for diabetes. Fasting is defined as no caloric intake for at least 8 hours. Fasting glucose between 100 mg/dl to 125 mg/dl is diagnostic of prediabetes. In a patient with classic symptoms of hyperglycemia or hyperglycemic crisis, a random glucose >/= 200 mg/dl is diagnostic for diabetes. In the absence of unequivocal hyperglycemia, results should be confirmed by repeat testing. The classification and Diagnosis of Diabetes Diabetes Care 2021; 46: S19-S40. Current interpretive data was last revised 2022. Calcium 9.1 8.5 - 10.3 mg/dL [facility] ([place]) Bilirubin, total 0.3 0.1 - 1.2 mg/dL [facility] ([place]) Protein, pl 6.3(L) 6.5 - 8.5 g/dL [facility] ([place]) Albumin 3.9 3.5 - 5.0 g/dL [facility] ([place]) Alk phos 87 40 - 130 Units/L [facility] ([place]) ALT 16 7 - 45 Units/L [facility] ([place]) AST 13 10 - 45 Units/L [facility] ([place]) Blood 11/04/2024 8:30 AM CIVIL ENGINEERING ASSISTANT 11/04/2024 8:43 AM CIVIL ENGINEERING ASSISTANT us Marek Pierre MD LAB BLOOD ORDERABLES Final Resu lt Performing Organization Address City/[facility]/ZIP Co de Phone Number [facility] ([place]) 1 [facility] [employer] [place] [address] * (ABNORMAL) POCT glucose (11/04/2024 7:26 AM CIVIL ENGINEERING ASSISTANT) Glucose, POC 240(H) 70 - 199 mg/dL Blood 11/04/2024 7:26 AM CIVIL ENGINEERING ASSISTANT 11/04/2024 7:26 AM CIVIL ENGINEERING ASSISTANT us Eliazar Neal II, MD LAB POCT ORDERABLES - DEVICE Final Result [facility] ([place]) 1 [facility] [place] [address] * (ABNORMAL) POCT glucose (11/04/2024 4:35 AM CIVIL ENGINEERING ASSISTANT) Glucose, POC 244(H) 70 - 199 mg/dL Blood 11/04/2024 4:35 AM CIVIL ENGINEERING ASSISTANT 11/04/2024 4:35 AM CIVIL ENGINEERING ASSISTANT us Kimmy Velez MD LAB POCT ORDERABLES - DEVICE F inal Result JOHAN [facility] ([place]) 1 [facility] [place] [address] * (ABNORMAL) POCT glucose (11/04/2024 2:01 AM CIVIL ENGINEERING ASSISTANT) Glucose, POC 228(H) 70 - 199 mg/dL Blood 11/04/2024 2:01 AM CIVIL ENGINEERING ASSISTANT 11/04/2024 2:01 AM CIVIL ENGINEERING ASSISTANT Kimmy Velez MD LAB POCT ORDERABLES - DEVICE F inal Result Performing Organization Address [facility] Co de Phone Number [facility]AN [facility] ([place]) 1 [facility] [place] [address] * (ABNORMAL) POCT glucose (11/03/2024 8:36 PM CIVIL ENGINEERING ASSISTANT) Glucose, POC 285(H) 70 - 199 mg/dL Blood 11/03/2024 8:36 PM CIVIL ENGINEERING ASSISTANT 11/03/2024 8:36 PM CIVIL ENGINEERING ASSISTANT Kimmy Velez MD LAB POCT ORDERABLES - DEVICE F inal Result Performing Organization Address [facility] Co de Phone Number [facility]AN [facility] ([place]) 1 [facility] [place] [address] * (ABNORMAL) POCT glucose (11/03/2024 4:18 PM CIVIL ENGINEERING ASSISTANT) Glucose, POC 254(H) 70 - 199 mg/dL Blood 11/03/2024 4:18 PM CIVIL ENGINEERING ASSISTANT 11/03/2024 4:18 PM CIVIL ENGINEERING ASSISTANT Marek Pierre MD LAB POCT ORDERABLES - DEVICE Fi nal Result Performing Organization Address City/[facility]/ZIP Co de Phone Number JOHAN [facility] ([place]) 1 [facility] [place] [address] * (ABNORMAL) POCT glucose (11/03/2024 12:54 PM CIVIL ENGINEERING ASSISTANT) Glucose, POC 207(H) 70 - 199 mg/dL Blood 11/03/2024 12:5 4 PM CIVIL ENGINEERING ASSISTANT 11/03/2024 12:54 PM CIVIL ENGINEERING ASSISTANT Marek Pierre MD LAB POCT ORDERABLES - DEVICE Fi nal Result Performing Organization Address [facility]/ZIP Co de Phone Number JOHAN ACOSTA ([place]) 1 [facility] [place] [address] * POCT glucose (11/03/2024 8:00 AM CIVIL ENGINEERING ASSISTANT) Glucose, POC 137 70 - 199 mg/dL Blood 11/03/2024 8:00 AM CIVIL ENGINEERING ASSISTANT 11/03/2024 8:00 AM CIVIL ENGINEERING ASSISTANT Marek Pierre MD LAB POCT ORDERABLES - DEVICE Fi nal Result Performing Organization Address [facility] de Phone Number JOHAN ACOSTA ([place]) 1 [facility] [place] [address] * Blood culture Blood (11/03/2024 4:51 AM CIVIL ENGINEERING ASSISTANT) Report Final Report: No growth Comment:Testing performed by : [facility], 1 [facility], [place]., [address] Blood 11/03/2024 4:51 AM CIVIL ENGINEERING ASSISTANT 11/03/2024 8:08 AM CIVIL ENGINEERING ASSISTANT Narrative [facility] ([place]) - 11/07/2024 12:00 PM CIVIL ENGINEERING ASSISTANT 1. Blood cultures are incubated for 4 days on a continuously monitored blood culture system. The first report of a negative culture is issued within 24 hours of receipt of the specimen in the laboratory. 2. Positive culture results are reported as soon as they are detected. 3. The most important factor for detection of microbes in the setting of bloodstream infection is the volume of blood submitted for culture. Failure to collect an optimal blood volume can result in false negative blood cultures. 4. For pediatric patients, the recommended blood volume to collect follows a weight based strategy. See the electronic test catalog for collection instructions. 5. For positive blood cultures, a rapid molecular test may be performed for organism identification using the gui ePlex blood culture identification panel for gram positive (BCID-GP) and gram negative (BCID-GN) organisms. This nucleic acid amplification test detects microbial DNA in positive blood culture broth. This assay has been cleared by the [place] Food and Drug Administration and its performance characteristics have been verified by the [facility] Microbiology Laboratory. For questions about this culture, contact the Microbiology Laboratory at [phone]. Interpretive data was last revised on 24. Norm Resendiz MD LAB MICROBIOLOGY - GENERAL O RDERABLES Final Result Performing Organization Address City/[facility] Co de Phone Number [facility]AN [facility] ([place]) 1 [facility] [employer] [place] [address] * POCT glucose (11/03/2024 4:13 AM CIVIL ENGINEERING ASSISTANT) Glucose, POC 134 70 - 199 mg/dL Blood 11/03/2024 4:13 AM CIVIL ENGINEERING ASSISTANT 11/03/2024 4:13 AM CIVIL ENGINEERING ASSISTANT Marek Pierre MD LAB POCT ORDERABLES - DEVICE Fi nal Result Performing Organization Address [facility] Co de Phone Number [facility] ([place]) 1 [facility] [place] [address] * POCT glucose (11/03/2024 12:40 AM CIVIL ENGINEERING ASSISTANT) Glucose, POC 151 70 - 199 mg/dL Blood 11/03/2024 12:4 0 AM CIVIL ENGINEERING ASSISTANT 11/03/2024 12:40 AM CIVIL ENGINEERING ASSISTANT Marek Pierre MD LAB POCT ORDERABLES - DEVICE Fi nal Result Performing Organization Address [facility] Co de Phone Number [facility] ([place]) 1 [facility] [place] [address] * MA CRITICAL CARE ILL/INJURED PATIENT INIT 30-74 MIN (11/02/2024 10:16 PM CIVIL ENGINEERING ASSISTANT) Narrative Norm Resendiz MD - 11/02/2024 10:16 PM CIVIL ENGINEERING ASSISTANT Norm Resendiz MD 11/02/2024 10:16 PM Critical Care Performed by: Norm Resendiz MD Authorized by: Norm Resendiz MD Critical care provider statement: As reflected in the history, physical exam, orders, notes, and/or MDM, I was personally present while the patient was critically ill and provided critical care services for 40 minutes, excluding time involved in separately billable procedures. Critical care was necessary to treat or prevent imminent or life-threatening deterioration of the following condition(s): hypercarbic respiratory failure Critical care was time spent by me providing the following: non-invasive positive pressure ventilator management I provided emergent necessary critical care medicine services to this patient. I ordered and reviewed test results and/or imaging studies. I spent time discussing the management of this critically ill patient with consultants and the medical staff. us Norm Resendiz MD IN CLINIC/BEDSIDE ORDERABLES Final Result * Critical Care (11/02/2024 9:53 PM CIVIL ENGINEERING ASSISTANT) Narrative Lorena Tobar MD - 11/02/2024 9:53 PM CIVIL ENGINEERING ASSISTANT Lorena Tobar MD 11/03/2024 12:55 AM Critical Care Performed by: Lorena Tobar MD Authorized by: Lorena Tobar MD CRITICAL CARE: Team: EICU Shift: PM Level of Billing: Critical Care My time spent with this patient was 60 minutes: Critical Provider Statement: I have seen and examined the patient on this day of service. I have reviewed and confirmed the history, physical exam, laboratory and radiologic data as documented in the signed ICU note. I have reviewed and discussed my treatment plan with the ICU team and other medical/organizational effectiveness consultant staff, making frequent assessments and decisions regarding this patient's complex medical care. Critical Care time was exclusive of time spent performing separately billed procedures, treating other patients, and teaching. This time was in addition to and separate from critical care provided by other practitioners in my group on this day of service. Critical Care was necessary to treat or prevent imminent or life-threatening deterioration of the following conditions: Acute delirium and Agitation requiring sedation Acute hypercarbic respiratory failure Severe genitourinary infection This time was spent by me doing the following: Influenza A I spent time reviewing and interpreting data from bedside monitors, laboratory results, and imaging, I spent time discussing the management of this critically ill patient with consultants and the medical staff and I spent time documenting in the medical record Lorena Tobar MD IN CLINIC/BEDSIDE ORDERABLES Final Result * (ABNORMAL) Influenza A/B, RSV, and COVID-19 PCR Nasopharyngeal (11/02/2024 9:50 PM CIVIL ENGINEERING ASSISTANT) Pathologist [facility] COVID-19 RNA Negative Negative Influenza A RNA Positive(A) Negative [facility] ([place]) Influenza B RNA Negative Negative [facility] ([place]) RSV RNA Negative Negative [facility] ([place]) Comment: Interpretive data: Testing performed by [facility]. This test is performed using the [employer] Xpert Xpress CoV-2/Flu/RSV plus assay. This is a multiplex, real- time reverse transcriptase PCR assay intended for the qualitative detection of nucleic acid from SARS-CoV-2, influenza A, influenza B, and respiratory syncytial virus. This assay has been cleared by the [place] Food and Drug administration. The performance characteristics have been verified by the [facility]. Results must be considered in the clinical context, and a negative result does not rule out infection. Interpretive Data last revised 2023 Nasopharyngeal 11/02/2024 9: 50 PM CIVIL ENGINEERING ASSISTANT 11/02/2024 9:58 PM CIVIL ENGINEERING ASSISTANT Narrative [facility] ([place]) - 11/02/2024 10:41 PM CIVIL ENGINEERING ASSISTANT Is the Patient experiencing symptoms consistent with COVID?->Unknown Lorena Tobar MD LAB MICROBIOLOGY - GENERAL O RDERABLES Final Result JOHAN [facility] ([place]) 1 [facility] Department [place] [address] * POCT glucose (11/02/2024 9:29 PM CIVIL ENGINEERING ASSISTANT) Pathologist [facility] Glucose, POC 133 70 - 199 mg/dL Blood 11/02/2024 9:29 PM CIVIL ENGINEERING ASSISTANT 11/02/2024 9:29 PM CIVIL ENGINEERING ASSISTANT Marek Pierre MD LAB POCT ORDERABLES - DEVICE Fi nal Result Performing Organization Address [facility] Co de Phone Number JOHAN ACOSTA ([place]) 1 [place] [address] * (ABNORMAL) Troponin T high-sensitivity 6-hour (11/02/2024 8:58 PM CIVIL ENGINEERING ASSISTANT) [facility] Trop T hs 145(H) <=14 ng/L Comment: Interpretive Data For further hscTnT resources including the diagnostic algorithm and an aid in interpretation, copy and paste this link: https://nrl.testcatalog.org/show/hsTrop Current Interpretive Data last revised 2020. Trop T hs delta See Comment ng/L CE RNMELISSA ACOSTA ([place]) Comment:Inappropriate collec tion time to report a delta. Trop T hs pct delta See Comment % JOHAN ACOSTA ([place]) Comment:Inappropriate collec tion time to report a delta. Trop T hs interp See Comment C SIENNA ACOSTA ([place]) Comment:Inappropriate collec tion time to report a delta. Blood 11/02/2024 8:58 PM CIVIL ENGINEERING ASSISTANT 11/02/2024 9:05 PM CIVIL ENGINEERING ASSISTANT Norm Resendiz MD LAB BLOOD ORDERABLES Final R esult Performing Organization Address [facility] Co de Phone Number JOHAN ACOSTA ([place]) 1 [facility] [place] [address] * (ABNORMAL) Blood culture Blood (11/02/2024 8:58 PM CIVIL ENGINEERING ASSISTANT) [facility] Direct Specimen Exam Molecular Analysis: Staphylococcus epidermidis (methicillin-resis tant) detected by gui ePlex BCID-GP panel. Single positive culture may represent contamination. This test does not exclude the possibility of a mixed bacterial infection. Notification of: Staphylococcus epidermidis (methicillin-resis tant) called to and read back by: Alaina Caputo MLT [phone] on 11/03/2024 23:52:59 by: Thuy Stanford MT Notification of: Staphylococcus epidermidis (methicillin-resis tant) called to and read back by: Korina Kerr [facility] ICU on 11/03/2024 23:55:52 by: Alaina Caputo MLT Comment:Testing performed by : [facility], [address] [place] [address]., [id number] Direct Specimen Exam Stain: Gram Positive Cocci in clusters Time to culture positivity (aerobic media): 19.6 hours Notification of: Gram Positive Cocci in clusters called to and read back by: Alaina Caputo MLT ,[phone] on 11/03/2024 22:08:21 by: Lidia Hull MT Notification of: Gram Positive Cocci in clusters called to and read back by: Blayne Fang [facility] ICU on 11/03/2024 22:14:55 by: Alaina ACOSTA ([place]) Comment:Testing performed by : [facility], [address] [place] [address]., [id number] Report Final Report: Staphylococcus epidermidis Single blood culture positive for this microorganism. Isolate is a possible contaminant. If a similar isolate is recovered from a second blood culture collected within 3 days of this culture, both will be evaluated and, if determined to be the same species, antimicrobial susceptibility testing will be performed. Staphylococcus epidermidis #2 Single blood culture positive for this microorganism. Isolate is a possible contaminant. If a similar isolate is recovered from a second blood culture collected within 3 days of this culture, both will be evaluated and, if determined to be the same species, antimicrobial susceptibility testing will be performed. (.) JOHAN ACOSTA ([place]) Comment:Testing performed by : [facility], [address] [place] [address]., [id number] Organism STAPHYLOCOCCUS EPIDERMIDIS JOHAN ACOSTA ([place]) Organism STAPHYLOCOCCUS EPIDERMIDIS JOHAN ACOSTA ([place]) Blood 11/02/2024 8:58 PM CIVIL ENGINEERING ASSISTANT 11/03/2024 1:25 AM CIVIL ENGINEERING ASSISTANT Narrative [facility] ([place]) - 11/08/2024 2:53 PM CIVIL ENGINEERING ASSISTANT 1. Blood cultures are incubated for 4 days on a continuously monitored blood culture system. The first report of a negative culture is issued within 24 hours of receipt of the specimen in the laboratory. 2. Positive culture results are reported as soon as they are detected. 3. The most important factor for detection of microbes in the setting of bloodstream infection is the volume of blood submitted for culture. Failure to collect an optimal blood volume can result in false negative blood cultures. 4. For pediatric patients, the recommended blood volume to collect follows a weight based strategy. See the electronic test catalog for collection instructions. 5. For positive blood cultures, a rapid molecular test may be performed for organism identification using the gui ePlex blood culture identification panel for gram positive (BCID-GP) and gram negative (BCID-GN) organisms. This nucleic acid amplification test detects microbial DNA in positive blood culture broth. This assay has been cleared by the [place] Food and Drug Administration and its performance characteristics have been verified by the [facility] Microbiology Laboratory. For questions about this culture, contact the Microbiology Laboratory at [phone]. Interpretive data was last revised on 24. Norm Resendiz MD LAB MICROBIOLOGY - GENERAL O RDERABLES Final Result JOHAN KARLA ([place]) 1 [facility] [place] [address] * Blood gas, venous (11/02/2024 8:58 PM CIVIL ENGINEERING ASSISTANT) pH, Venous 7.37 7.32 - 7.43 PCO2, Venous 48 40 - 50 mmHg JOHAN [facility] ([place]) PO2, Venous 146 mmHg JOHAN Ho ([place]) Comment: Interpretive Data No reference range established. Current interpretive data was last revised 2017. HCO3 Venous, Calculated 26 20 - 30 mmol/L JOHAN [facility] ([place]) BE, venous 1 mmol/L [facility] ([place]) Comment: Interpretive Data No Reference Range Established Current Interpretive Data was last revised on 2017. Blood 11/02/2024 8:58 PM CIVIL ENGINEERING ASSISTANT 11/02/2024 9:05 PM CIVIL ENGINEERING ASSISTANT Lorena Tobar MD LAB BLOOD ORDERABLES Final R esult JOHAN ACOSTA ([place]) 1 [facility] [place] [address] * POCT glucose (11/02/2024 6:40 PM CIVIL ENGINEERING ASSISTANT) Glucose, POC 122 70 - 199 mg/dL Blood 11/02/2024 6:40 PM CIVIL ENGINEERING ASSISTANT 11/02/2024 6:40 PM CIVIL ENGINEERING ASSISTANT Fuentes Persaud MD LAB POCT ORDERABLES - BRITTANY CE Final Result Performing Organization Address [facility] Co de Phone Number JOHAN ACOSTA ([place]) 1 [place] [address] * (ABNORMAL) Urinalysis reflex to microscopic and culture Urine, in and out catheter (11/02/2024 2:26PM CIVIL ENGINEERING ASSISTANT) Color, ur Yellow Clarity, ur Cloudy(A) Clear [facility] ([place]) Specific gravity, ur 1.011 1.003 - 1.030 [facility] ([place]) pH, urine 6.0 [facility] ([place]) Comment: Interpretive Data U rine pH is affected by diet, medications, systemic acid-base disturbances, and renal tubular function. pH may affect urinary stone formation. For example, urine pH below 6.0 may help reduce the tendency for calcium phosphate stones and pH greater than 6.0 may reduce the tendency for uric acid stone formation. Source: [facility] [employer] Current Interpretive Data was last revised on 2017 Protein, ur ql 2+(A) Negative [facility] ([place]) Glucose, ur ql Negative Negative [facility] ([place]) Ketones, ur Negative Negative [facility] ([place]) Bilirubin, ur Negative Negative [facility] ([place]) Blood, ur 2+(A) Negative [facility] ([place]) Urobilinogen, ur <2.0 <2.0 mg/dL [facility] ([place]) Nitrite, ur Positive(A) Negative [facility] ([place]) Leukocyte esterase, ur 4+(A) Negative [facility] ([place]) UA reflex comment Reflex to microscopic UA will be performed. JOHAN ACOSTA ([place]) Urine, in and out catheter 11/02/2024 2:26 PM CIVIL ENGINEERING ASSISTANT 11/02/2024 2:30 PM CIVIL ENGINEERING ASSISTANT Norm Resendiz MD LAB MICROBIOLOGY - GENERAL O RDERABLES Final Result Performing Organization Address [facility] [place] Co de Phone Number JOHAN ACOSTA (FAN) 1 [facility] [place] [address] * (ABNORMAL) Urinalysis, microscopic only (11/02/2024 2:26 PM CIVIL ENGINEERING ASSISTANT) WBC, ur >50(A) 0 - 5 /HPF RBC, ur 21-50(A) 0 - 2 /HPF JOHAN [facility] (FAN) Epithelial cells, squamous, ur 1-5 0 - 5 /HPF [facility]WON [facility] (FAN) Bacteria, ur Trace(A) [facility] Culture Reflex Comment Reflex to urine culture will be performed. JOHAN [facility] (FAN) Urine, in and out catheter 11/02/2024 2:26 PM CIVIL ENGINEERING ASSISTANT 11/02/2024 2:30 PM CIVIL ENGINEERING ASSISTANT Norm Resendiz MD LAB URINE ORDERABLES Final R esult Performing Organization Address [facility] Co de Phone Number JOHAN ACOSTA (FAN) 1 [facility] [place] [address] * (ABNORMAL) Urine culture Urine, in and out catheter (11/02/2024 2:26 PM CIVIL ENGINEERING ASSISTANT) Report Final Report: Greater than or equal to 100,000 colonies/mL of Escherichia coli The susceptibility pattern of this Escherichia coli indicates the possible production of an extended spectrum beta lactamase (ESBL). Patients infected with ESBL-producing organisms require contact isolation precautions. For therapeutic options for this organism, please contact infectious diseases. (.) Comment:Testing performed by : [facility], [address] [facility], [place]., [address] Organism ESCHERICHIA COLI NATANAEL WON ACOSTA (FAN) Urine, in and out catheter 11/02/2024 2:26 PM CIVIL ENGINEERING ASSISTANT 11/02/2024 6:13 PM CIVIL ENGINEERING ASSISTANT Narrative NATANAELWON ACOSTA (FAN) - 11/05/2024 2:02 PM CIVIL ENGINEERING ASSISTANT Urine culture reflexed based upon urinalysis results. Testing performed by [facility] Microbiology Laboratory ([phone]) Organism Antibiotic Method Susceptibility Escherichia coli Ampicillin INTERPRETATION Resistant Escherichia coli Cefazolin INTERPRETATION Resistant Escherichia coli Nitrofurantoin INTERPRETATION Susceptible Escherichia coli Gentamicin INTERPRETATION Susceptible Escherichia coli Trimethoprim with Sulfamethoxazole IN TERPRETATION Resistant Escherichia coli Meropenem INTERPRETATION Susceptible Escherichia coli Cefepime INTERPRETATION Resistant Escherichia coli Ciprofloxacin INTERPRETATION Resistant Escherichia coli Ceftazidime INTERPRETATION Resistant Escherichia coli Ceftriaxone INTERPRETATION Resistant Escherichia coli Cephalexin INTERPRETATION Resistant Escherichia coli Cefuroxime-axetil INTERPRETATION Resistant Escherichia coli Cefdinir INTERPRETATION Resistant Escherichia coli Amikacin INTERPRETATION Susceptible Escherichia coli Aztreonam INTERPRETATION Resistant Escherichia coli Imipenem INTERPRETATION Susceptible Escherichia coli Ertapenem INTERPRETATION Susceptible Escherichia coli Minocycline INTERPRETATION Susceptible Escherichia coli Tobramycin INTERPRETATION Susceptible Escherichia coli Levofloxacin INTERPRETATION Resistant Escherichia coli Doxycycline INTERPRETATION Susceptible Escherichia coli Ampicillin with Sulbactam INTERPRETAT ION Resistant Escherichia coli Fosfomycin INTERPRETATION Susceptible us Norm Resendiz MD LAB MICROBIOLOGY - GENERAL O RDERABLES Final Result JOHAN KARLA (FAN) 1 [facility] Department [place] [address] * XR Chest 1 View (11/02/2024 1:57 PM CIVIL ENGINEERING ASSISTANT) Anatomical Region Laterality Modality Body, Chest N/A Computed Radiogr aphy 11/02/2024 2:23 PM CIVIL ENGINEERING ASSISTANT Narrative 11/02/2024 2:34 PM CIVIL ENGINEERING ASSISTANT EXAM DESCRIPTION: XR CHEST 1 VIEW REASON FOR STUDY: CHEST PAIN. Patient here for altered mental status. [facility] She has been lethargic today. She is unable to answer questions. She does say her name. Best obtainable images. Difficulty moving pt for imaging due to pts body habitus. TECHNIQUE: Portable semi upright AP radiographic view(s) of the chest (2 total images). COMPARISON: October 22, 2024 FINDINGS: LUNGS: Overall visualization is poor, especially of the left lung. No definite acute focal right lung infiltrates. Left lung volume loss is probably unchanged. Left basilar opacity is grossly stable. This opacity at least in part relates to atelectasis, but pneumonia and pleural effusion also can not be excluded. HEART/MEDIASTINUM: Heart size is difficult to evaluate but probably at least mildly enlarged. LINES/TUBES: Right IJ venous catheter with tip in cavoatrial junction region. BONES: No acute osseous abnormality. IMPRESSION: Overall poor visualization, especially of the left lung. Left lung volume loss is probably unchanged. Left basilar opacity is grossly stable. This opacity at least in part relates to atelectasis, but pneumonia and pleural effusion also can not be excluded. THIS IS AN ELECTRONICALLY VERIFIED FINAL REPORT 11/02/2024 2:34 PM - Electronically signed by Adal Costa M.D. RB: NESHA Report ID: [id number] Reading Location: [id number] Procedure Note Adal Costa MD - 11/02/2024 EXAM DESCRIPTION: XR CHEST 1 VIEW REASON FOR STUDY: CHEST PAIN. Patient here for altered mental status. [facility].She has been lethargic today. She is unable to answer questions. She does sayher name. Best obtainable images. Difficulty moving pt for imaging due to ptsbody habitus. TECHNIQUE: Portable semi upright AP radiographic view(s) of the chest (2 total images). COMPARISON: October 22, 2024 FINDINGS: LUNGS: Overall visualization is poor, especially of the left lung. No definite acute focal right lung infiltrates. Left lung volume loss is probably unchanged. Left basilar opacity is grossly stable. This opacityat least in part relates to atelectasis, but pneumonia and pleural effusionalso can not be excluded. HEART/MEDIASTINUM: Heart size is difficult to evaluate but probably atleast mildly enlarged. LINES/TUBES: Right IJ venous catheter with tip in cavoatrial junctionregion. BONES: No acute osseous abnormality. IMPRESSION: Overall poor visualization, especially of the left lung. Left lung volumeloss is probably unchanged. Left basilar opacity is grossly stable. Thisopacity at least in part relates to atelectasis, but pneumonia and pleural effusionalso can not be excluded. THIS IS AN ELECTRONICALLY VERIFIED FINAL REPORT 11/02/2024 2:34 PM - Electronically signed by Adal Costa M.D. RB: RB Report ID: [id number] Reading Location: [place] [address] Norm Resendiz MD IMG XR PROCEDURES Final Resu lt * (ABNORMAL) Troponin T high-sensitivity series (baseline, 2hr, 4hr, 6hr) (11/02/2024 1:54 PM CIVIL ENGINEERING ASSISTANT) Trop T hs 102(H) <=14 ng/L Comment: Interpretive Data For further hscTnT resources including the diagnostic algorithm and an aid in interpretation, copy and paste this link: https://nrl.testcatalog.org/show/hsTrop Current Interpretive Data last revised 2020. Blood 11/02/2024 1:54 PM CIVIL ENGINEERING ASSISTANT 11/02/2024 1:56 PM CIVIL ENGINEERING ASSISTANT Norm Resendiz MD LAB BLOOD ORDERABLES Final R [facility] Performing Organization Address City/[facility]/ZIP Co de Phone Number JOHAN ACOSTA ([address] Department [place] [address] * Sepsis Lactate w/ Reflex (11/02/2024 1:54 PM CIVIL ENGINEERING ASSISTANT) Sepsis Lactate 0.8 0.7 - 2.0 mmol/L Blood 11/02/2024 1:54 PM CIVIL ENGINEERING ASSISTANT 11/02/2024 1:56 PM CIVIL ENGINEERING ASSISTANT Norm Resendiz MD LAB BLOOD ORDERABLES Final R esult JOHAN ACOSTA (FAN) 1 [facility] Department [place] [address] * (ABNORMAL) eGFR (11/02/2024 1:54 PM CIVIL ENGINEERING ASSISTANT) Pathologist [facility] eGFR 11(L) >=60 mL/min/1. 73 m2 Comment: Interpretive Data Reference Interval Normal >/= 90 mL/min/1.73m2 Mildly decreased* 60 - 89 mL/min/1.73m2 Mildly to moderately decreased 45 - 59 mL/min/1.73m2 Moderately to severely decreased 30 - 44 mL/min/1.73m2 Severely decreased 15 - 29 mL/min/1.73m2 Kidney Failure < 15 mL/min/1.73m2 *Relative to young adult level Estimated glomerular filtration rate is determined by the 2020 CKD-EPI equation recommended by the National Kidney Foundation (A Unifying Approach to GFR Estimation: Recommendations of the NKF-ASK Task Force on Reassessing the Inclusion of Race in Diagnosing Kidney Disease, JASN 2020). The CKD-EPI equation should not be used for patients with unstable renal function and has not been validated in children and those over 70. Current interpretive data was last reviewed 2021. Blood 11/02/2024 1:54 PM CIVIL ENGINEERING ASSISTANT 11/02/2024 1:56 PM CIVIL ENGINEERING ASSISTANT us Norm Resendiz MD LAB BLOOD ORDERABLES Final R esult JOHAN SANCHEZ) 1 [facility] Department [place] [address] * (ABNORMAL) Differential, auto (11/02/2024 1:54 PM CIVIL ENGINEERING ASSISTANT) Neutrophil abs 4.7 1.5 - 6.5 K/cumm Imm gran abs 0.1 0.0 - 0.1 K/cumm [facility] (FAN) Lymphocyte abs 0.7(L) 0.8 - 3.3 K/cumm [facility] ([place]) Monocyte abs 0.4 0.2 - 0.8 K/cumm [facility] ([place]) Eosinophil abs 0.0 0.0 - 0.5 K/cumm [facility] ([place]) Basophil abs 0.0 0.0 - 0.1 K/cumm [facility] ([place]AN) Neutrophil pct 78.9 % [facility] (FAN) Comment: Interpretive Data Percent cell count reference ranges are not reported, since discordance with absolute values may lead to misinterpretation of CBC data. Current Interpretive Data was last revised on 2017. Imm gran pct 1.5 % [facility] (FAN) Comment: Interpretive Data Percent cell count reference ranges are not reported, since discordance with absolute values may lead to misinterpretation of CBC data. Current Interpretive Data was last revised on 2017. Lymphocyte pct 12.2 % [facility] ([place]AN) Comment: Interpretive Data Percent cell count reference ranges are not reported, since discordance with absolute values may lead to misinterpretation of CBC data. Current Interpretive Data was last revised on 2017. Monocyte pct 7.2 % [facility] (FAN) Comment: Interpretive Data Percent cell count reference ranges are not reported, since discordance with absolute values may lead to misinterpretation of CBC data. Current Interpretive Data was last revised on 2017. Eosinophil pct 0.0 % [facility] ([place]AN) Comment: Interpretive Data Percent cell count reference ranges are not reported, since discordance with absolute values may lead to misinterpretation of CBC data. Current Interpretive Data was last revised on 2017. Basophil pct 0.2 % [facility] ([place]AN) Comment: Interpretive Data Percent cell count reference ranges are not reported, since discordance with absolute values may lead to misinterpretation of CBC data. Current Interpretive Data was last revised on 2017. Blood 11/02/2024 1:54 PM CIVIL ENGINEERING ASSISTANT 11/02/2024 1:56 PM CIVIL ENGINEERING ASSISTANT us Norm Resendiz MD LAB BLOOD ORDERABLES Final R esult JOHAN KARLA (FAN) 1 [facility] Department [place] [address] * (ABNORMAL) Pro B-type natriuretic peptide (11/02/2024 1:54 PM CIVIL ENGINEERING ASSISTANT) NT-proBNP 7,730(H) <=300 pg/mL Comment: Interpretive Comments: A. Dyspnea in Acute Care Setting All Ages: < 300 pg/ml, acute heart failure unlikely. < 50 yrs: 300 - 450 pg/ml, further investigation warranted. > 450 pg/ml, acute heart failure likely. 50 - 74 yrs: 300 - 900 pg/ml, further investigation warranted. > 900 pg/ml, acute heart failure likely . > or = 75 yrs: 450 - 1800 pg/ml, further investigation warranted. > 1800 pg/ml, acute heart failure likely. B. Non-acute Setting < 75 yrs < 125 pg/ml, rules out heart failure. > or = 125 pg/ml, further investigation warranted. > or = 75 yrs < 450 pg/ml, rules out heart failure. > or = 450 pg/ml, further investigation warranted. - Knowledge of each individual patient's NT-proBNP range may be more useful than using similar cut-points for every patient. Please note that marked elevations in NT-proBNP levels may be observed in state other than Left Ventricular Congestive Failure, including: acute coronary syndromes, right heart strain/failure (including pulmonary embolism and cor pulmonale), critical illness, renal failure, as well as advanced age. - References: 1. Perry JL et.al. Eur Heart J. 2006:27:330-337. 2. Camryn RW, Tracie RAHMAN. J. AM Mark Cardiol: Cardiovasc Imag. 2009;2: 216- 225. Interpretive Data Last Revised Date: 2018. Blood 11/02/2024 1:54 PM CIVIL ENGINEERING ASSISTANT 11/02/2024 1:56 PM CIVIL ENGINEERING ASSISTANT us Norm Resendiz MD LAB BLOOD ORDERABLES Final R esult [facility] [place]) 3 [facility] Department [place] [address] * (ABNORMAL) CBC with auto differential (11/02/2024 1:54 PM CIVIL ENGINEERING ASSISTANT) Pathologist [facility] WBC 6.0 3.8 - 9.9 K/cumm Hgb 8.9(L) 11.9 - 15.5 g/dL [facility] ([place]AN) Hct 27.9(L) 35.6 - 45.5 % [facility] ([place]) Plt 121(L) 150 - 400 K/cumm [facility] ([place]) MPV 9.1 9.1 - 12.3 fL [facility] ([place]) RBC 2.90(L) 3.90 - 5.20 M/cumm [facility] ([place]) MCV 96.2 81.3 - 96.4 fL [facility] ([place]) MCH 30.7 27.1 - 33.3 pg [facility] ([place]) MCHC 31.9(L) 32.3 - 35.7 g/dL [facility] ([place]) RDW CV 16.2(H) 11.1 - 14.9 % [facility] ([place]) RDW SD 55.3(H) 35.7 - 48.1 fL [facility] ([place]) NRBC abs 0.00 0.00 - 0.01 K/cumm [facility] ([place]) Blood 11/02/2024 1:54 PM CIVIL ENGINEERING ASSISTANT 11/02/2024 1:56 PM CIVIL ENGINEERING ASSISTANT Norm Resendiz MD LAB BLOOD ORDERABLES Final R esult [facility]AN [facility] (FAN) 1 [facility] Department [place] [address] * Levetiracetam level (11/02/2024 1:54 PM CIVIL ENGINEERING ASSISTANT) [facility] Levetiracetam (Keppra) 24.6 10.0 - 40.0 mcg/mL [facility] ref [facility] Comment: ADDITIONAL INFORMATION This test was developed and its performance characteristics determined by [facility] in a manner consistent with CLIA requirements. This test has not been cleared or approved by the U.S. Food and Drug Administration. Test Performed by: [facility] Laboratories - [facility] [address] [place] [address] Trigonometry Tutor: Nelson Calixto Ph.D.; IA# [id number] Blood 11/02/2024 1:54 PM CIVIL ENGINEERING ASSISTANT 11/02/2024 2:02 PM CIVIL ENGINEERING ASSISTANT Norm Resendiz MD LAB BLOOD ORDERABLES Final R esult Performing Organization Address [facility]/ZIP Co de Phone Number JOHAN ACOSTA ([place]) 1 [facility] [place] [address] [facility] ref Lab * aPTT (11/02/2024 1:54 PM CIVIL ENGINEERING ASSISTANT) aPTT 30 28 - 38 sec [facility] ([place] Comment: Interpretive Data Heparin therapeutic range: 66.0 - 100.0 seconds. Range based on correlation with therapeutic heparin activity range of 0.3 - 0.7 Units/mL. Current interpretive data was last revised on 2023. Blood 11/02/2024 1:54 PM CIVIL ENGINEERING ASSISTANT 11/02/2024 1:56 PM CIVIL ENGINEERING ASSISTANT Norm Resendiz MD LAB BLOOD ORDERABLES Final R esult Performing Organization Address City/[facility] Co de Phone Number JOHAN ACOSTA ([place]) 1 [facility] [place] [address] * Protime-INR (11/02/2024 1:54 PM CIVIL ENGINEERING ASSISTANT) PT 10.2 9.7 - 13.0 sec [facility] ([place] INR 0.95 0.90 - 1.20 [facility] Comment: Interpretive data Oral anticoagulant therapeutic ranges: Venous thromboembolism prophylaxis or treatment: 2.0-3.0 CARDIOLOGY Standard range: 2.0-3.0 High-intensity range: 2.5-3.5 Refer to indication-specific guidelines for appropriate target ranges for prosthetic heart valve replacement. Current interpretive data was last revised on 2019. Blood 11/02/2024 1:54 PM CIVIL ENGINEERING ASSISTANT 11/02/2024 1:56 PM CIVIL ENGINEERING ASSISTANT Norm Resendiz MD LAB BLOOD ORDERABLES Final R esult Performing Organization Address City/[facility]/ZIP Co de Phone Number JOHAN KARLA ([place]) 1 [facility] [place] [address] * Magnesium (11/02/2024 1:54 PM CIVIL ENGINEERING ASSISTANT) Magnesium 1.8 1.4 - 2.5 mg/dL Blood 11/02/2024 1:54 PM CIVIL ENGINEERING ASSISTANT 11/02/2024 1:56 PM CIVIL ENGINEERING ASSISTANT Norm Resendiz MD LAB BLOOD ORDERABLES Final R esult Performing Organization Address [facility] de Phone Number JOHAN ACOSTA ([place]) 1 [facility] [place] [address] * (ABNORMAL) Blood gas, venous (11/02/2024 1:54 PM CIVIL ENGINEERING ASSISTANT) pH, Venous 7.25(L) 7.32 - 7.43 PCO2, Venous 70(C) 40 - 50 mmHg JOHAN ACOSTA ([place]) Comment:Critical result call ed to and read back by SUKHWINDER NEWBERRY (ER) on 11/02/2024 14:02:43 CIVIL ENGINEERING ASSISTANT to BLAYNE HALEY. PO2, Venous 58 mmHg JOHAN Ho ([place]) Comment: Interpretive Data No reference range established. Current interpretive data was last revised 2017. HCO3 Venous, Calculated 30 20 - 30 mmol/L [facility] ([place]) BE, venous 2 mmol/L JOHAN [facility] ([place]) Comment: Interpretive Data No Reference Range Established Current Interpretive Data was last revised on 2017. Blood 11/02/2024 1:54 PM CIVIL ENGINEERING ASSISTANT 11/02/2024 1:56 PM CIVIL ENGINEERING ASSISTANT Norm Resendiz MD LAB BLOOD ORDERABLES Final R esult Performing Organization Address [facility] Co de Phone Number JOHAN ACOSTA ([place]) [address] Department of Laboratories [place] [id number] * Ammonia (11/02/2024 1:54 PM CIVIL ENGINEERING ASSISTANT) Ammonia 15 <=50 mcmol/L Blood 11/02/2024 1:54 PM CIVIL ENGINEERING ASSISTANT 11/02/2024 1:56 PM CIVIL ENGINEERING ASSISTANT Norm Resendiz MD LAB BLOOD ORDERABLES Final R esult [facility] (FAN) 1 [facility] Department [place] [address] * (ABNORMAL) Comprehensive metabolic panel (11/02/2024 1:54 PM CIVIL ENGINEERING ASSISTANT) Sodium 132(L) 135 - 145 mmol/L Potassium, pl 4.7 3.3 - 4.9 mmol/L [facility] ([place]) Chloride 94(L) 97 - 110 mmol/L [facility] ([place]) CO2 28 22 - 32 mmol/L [facility] ([place]) Anion gap 11 2 - 15 mmol/L [facility] ([place]) BUN 30(H) 6 - 25 mg/dL [facility] ([place]) Creatinine 4.14(H) 0.60 - 1.10 mg/dL [facility] ([place]) Glucose 131 70 - 199 mg/dL [facility] ([place]) Comment: Interpretive Data Fasting glucose >/= 126 mg/dl is diagnostic for diabetes. Fasting is defined as no caloric intake for at least 8 hours. Fasting glucose between 100 mg/dl to 125 mg/dl is diagnostic of prediabetes. In a patient with classic symptoms of hyperglycemia or hyperglycemic crisis, a random glucose >/= 200 mg/dl is diagnostic for diabetes. In the absence of unequivocal hyperglycemia, results should be confirmed by repeat testing. The classification and Diagnosis of Diabetes Diabetes Care 2021; 46: S19-S40. Current interpretive data was last revised 2022. Calcium 9.2 8.5 - 10.3 mg/dL [facility] ([place]) Bilirubin, total 0.4 0.1 - 1.2 mg/dL [facility] ([place]) Protein, pl 6.3(L) 6.5 - 8.5 g/dL [facility] ([place]) Albumin 3.8 3.5 - 5.0 g/dL [facility] ([place]) Alk phos 81 40 - 130 Units/L [facility] ([place]) ALT 15 7 - 45 Units/L [facility] ([place]) AST 15 10 - 45 Units/L [facility] ([place]) Comment:Slightly Hemolyzed S pecimen Blood 11/02/2024 1:54 PM CIVIL ENGINEERING ASSISTANT 11/02/2024 1:56 PM CIVIL ENGINEERING ASSISTANT Norm Resendiz MD LAB BLOOD ORDERABLES Final R esult Performing Organization Address [facility] de Phone Number JOHAN [facility] ([place]) 1 [facility] Department [place] [address] * ECG 12 lead (11/02/2024 1:44 PM CIVIL ENGINEERING ASSISTANT) 11/02/2024 1:44 PM CIVIL ENGINEERING ASSISTANT Narrative [facility] - 11/02/2024 3:27 PM CIVIL ENGINEERING ASSISTANT Vent Rate: 65 bpm RR Interval: 918 msec MA Interval: 198 msec QRS Duration: 106 msec QT Interval: 430 msec QTC Interval: 441 msec P-R-T [place]: 72 - 64 - 75 degrees IMPRESSION: SINUS RHYTHM LOW QRS VOLTAGE IN PRECORDIAL LEADS [QRS DEFLECTION < 1.0 mV IN CHEST LEADS] BORDERLINE ECG NO CHANGE FROM PREVIOUS TRACING NOTED Electronically Signed By: Jeremy Calix MD Norm Resendiz MD ECG ORDERABLES Final Result Performing Organization Address [facility] de Phone Number [employer] [facility] * POCT glucose (11/02/2024 1:20 PM CIVIL ENGINEERING ASSISTANT) Glucose, POC 127 70 - 199 mg/dL Blood 11/02/2024 1:20 PM CIVIL ENGINEERING ASSISTANT 11/02/2024 1:20 PM CIVIL ENGINEERING ASSISTANT Notinf[employer] Unknown LAB POCT ORDERABLES - DEVICE F inal Result Performing Organization Address [facility] de Phone Number JOHAN SANCHEZ) 1 [facility] [place] [address] * POCT glucose (10/27/2024 11:58 AM CIVIL ENGINEERING ASSISTANT) Glucose, POC 161 70 - 199 mg/dL Blood 10/27/2024 11:5 8 AM CIVIL ENGINEERING ASSISTANT 10/27/2024 11:58 AM CIVIL ENGINEERING ASSISTANT Emilia Damian MD LAB POCT ORDERABLES - DEV ICE Final Result JOHAN ACOSTA ([place]) 1 [facility] [place] [address] * POCT glucose (10/27/2024 8:11 AM CIVIL ENGINEERING ASSISTANT) [facility] Glucose, POC 164 70 - 199 mg/dL Blood 10/27/2024 8:11 AM CIVIL ENGINEERING ASSISTANT 10/27/2024 8:11 AM CIVIL ENGINEERING ASSISTANT Emilia Damian MD LAB POCT ORDERABLES - DEV ICE Final Result Performing Organization Address City/[facility] Co de Phone Number JOHAN [place]) 1 [facility] [place] [address] * (ABNORMAL) eGFR (10/27/2024 3:25 AM CIVIL ENGINEERING ASSISTANT) [facility] eGFR 10(L) >=60 mL/min/1. 73 m2 Comment: Interpretive Data Reference Interval Normal >/= 90 mL/min/1.73m2 Mildly decreased* 60 - 89 mL/min/1.73m2 Mildly to moderately decreased 45 - 59 mL/min/1.73m2 Moderately to severely decreased 30 - 44 mL/min/1.73m2 Severely decreased 15 - 29 mL/min/1.73m2 Kidney Failure < 15 mL/min/1.73m2 *Relative to young adult level Estimated glomerular filtration rate is determined by the 2020 CKD-EPI equation recommended by the National Kidney Foundation (A Unifying Approach to GFR Estimation: Recommendations of the NKF-ASK Task Force on Reassessing the Inclusion of Race in Diagnosing Kidney Disease, JASN 2020). The CKD-EPI equation should not be used for patients with unstable renal function and has not been validated in children and those over 70. Current interpretive data was last reviewed 2021. Blood 10/27/2024 3:25 AM CIVIL ENGINEERING ASSISTANT 10/27/2024 3:35 AM CIVIL ENGINEERING ASSISTANT Fuentes Persaud MD LAB BLOOD ORDERABLES Final Result [facility] ([place]) 1 [facility] Department [place] [address] * (ABNORMAL) CBC without differential (10/27/2024 3:25 AM CIVIL ENGINEERING ASSISTANT) WBC 6.8 3.8 - 9.9 K/cumm Hgb 8.2(L) 11.9 - 15.5 g/dL [facility] ([place]) Hct 25.8(L) 35.6 - 45.5 % [facility] ([place]) Plt 133(L) 150 - 400 K/cumm [facility] ([place]) MPV 10.2 9.1 - 12.3 fL [facility] ([place]) RBC 2.77(L) 3.90 - 5.20 M/cumm [facility] ([place]) MCV 93.1 81.3 - 96.4 fL [facility] ([place]) MCH 29.6 27.1 - 33.3 pg [facility] ([place]) MCHC 31.8(L) 32.3 - 35.7 g/dL [facility] ([place]) RDW CV 15.2(H) 11.1 - 14.9 % [facility] ([place]) RDW SD 50.6(H) 35.7 - 48.1 fL [facility] ([place]) NRBC abs 0.03(H) 0.00 - 0.01 K/cumm [facility] ([place]) Blood 10/27/2024 3:25 AM CIVIL ENGINEERING ASSISTANT 10/27/2024 3:38 AM CIVIL ENGINEERING ASSISTANT Fuentes Persaud MD LAB BLOOD ORDERABLES Final Result JOHAN ACOSTA ([place]) 1 [facility] [place] [place] [address] * (ABNORMAL) Basic metabolic panel (10/27/2024 3:25 AM CIVIL ENGINEERING ASSISTANT) Sodium 134(L) 135 - 145 mmol/L Potassium, pl 5.0(H) 3.3 - 4.9 mmol/L [facility] (FAN) Chloride 94(L) 97 - 110 mmol/L [facility] (FAN) CO2 26 22 - 32 mmol/L [facility] ([facility]AN) Anion gap 14 2 - 15 mmol/L [facility] ([place]AN) BUN 72(H) 6 - 25 mg/dL [facility] ([place]AN) Creatinine 4.69(H) 0.60 - 1.10 mg/dL [facility] (FAN) Glucose 257(H) 70 - 199 mg/dL [facility] (FAN) Comment: Interpretive Data Fasting glucose >/= 126 mg/dl is diagnostic for diabetes. Fasting is defined as no caloric intake for at least 8 hours. Fasting glucose between 100 mg/dl to 125 mg/dl is diagnostic of prediabetes. In a patient with classic symptoms of hyperglycemia or hyperglycemic crisis, a random glucose >/= 200 mg/dl is diagnostic for diabetes. In the absence of unequivocal hyperglycemia, results should be confirmed by repeat testing. The classification and Diagnosis of Diabetes Diabetes Care 2021; 46: S19-S40. Current interpretive data was last revised 2022. Calcium 8.4(L) 8.5 - 10.3 mg/dL [facility] (FAN) Blood 10/27/2024 3:25 AM CIVIL ENGINEERING ASSISTANT 10/27/2024 3:35 AM CIVIL ENGINEERING ASSISTANT Fuentes Persaud MD LAB BLOOD ORDERABLES Final Result JOHAN ACOSTA (FAN) 1 [facility] [place] [address] * (ABNORMAL) POCT glucose (10/27/2024 3:24 AM CIVIL ENGINEERING ASSISTANT) Glucose, POC 264(H) 70 - 199 mg/dL Blood 10/27/2024 3:24 AM CIVIL ENGINEERING ASSISTANT 10/27/2024 3:24 AM CIVIL ENGINEERING ASSISTANT Emilia Damian MD LAB POCT ORDERABLES - DEV ICE Final Result JOHAN ACOSTA ([place]) 1 [facility] [place] [address] * (ABNORMAL) POCT glucose (10/26/2024 9:24 PM CIVIL ENGINEERING ASSISTANT) Glucose, POC 324(H) 70 - 199 mg/dL Blood 10/26/2024 9:24 PM CIVIL ENGINEERING ASSISTANT 10/26/2024 9:24 PM CIVIL ENGINEERING ASSISTANT Emilia Damian MD LAB POCT ORDERABLES - DEV ICE Final Result Performing Organization Address City/[facility]/ZIP Co de Phone Number JOHAN ACOSTA ([place]) 1 [facility] [place] [address] * (ABNORMAL) POCT glucose (10/26/2024 5:07 PM CIVIL ENGINEERING ASSISTANT) Glucose, POC 354(H) 70 - 199 mg/dL Blood 10/26/2024 5:07 PM CIVIL ENGINEERING ASSISTANT 10/26/2024 5:07 PM CIVIL ENGINEERING ASSISTANT Emilia Damian MD LAB POCT ORDERABLES - DEV ICE Final Result JOHAN ACOSTA ([place]) 1 [facility] [place] [address] * (ABNORMAL) POCT glucose (10/26/2024 11:45 AM CIVIL ENGINEERING ASSISTANT) Glucose, POC 239(H) 70 - 199 mg/dL Blood 10/26/2024 11:4 5 AM CIVIL ENGINEERING ASSISTANT 10/26/2024 11:45 AM CIVIL ENGINEERING ASSISTANT us Emilia Damian MD LAB POCT ORDERABLES - DEV ICE Final Result Performing Organization Address [facility]/ZIP Co de Phone Number JOHAN ACOSTA ([place]) 1 [facility] [employer] [place] [address] * Transfuse RBC (10/26/2024 10:44 AM CIVIL ENGINEERING ASSISTANT) Blood us Rajeev Nassar MD BLOOD TRANSFUSION ORDERABLES Fi nal Result Performing Organization Address [facility] Co de Phone Number JOHAN ACOSTA ([place]) 1 [facility] [place] [address] * (ABNORMAL) Hemoglobin and hematocrit (10/26/2024 8:47 AM CIVIL ENGINEERING ASSISTANT) Hgb 8.0(L) 11.9 - 15.5 g/dL Hct 25.2(L) 35.6 - 45.5 % JOHAN ACOSTA ([place]) Blood 10/26/2024 8:47 AM CIVIL ENGINEERING ASSISTANT 10/26/2024 8:49 AM CIVIL ENGINEERING ASSISTANT us Emilia Damian MD LAB BLOOD ORDERABLES Adrianna l Result Performing Organization Address [facility] Co de Phone Number JOHAN ACOSTA ([place]) 1 [facility] [place] [address] * (ABNORMAL) POCT glucose (10/26/2024 7:59 AM CIVIL ENGINEERING ASSISTANT) Glucose, POC 237(H) 70 - 199 mg/dL Blood 10/26/2024 7:59 AM CIVIL ENGINEERING ASSISTANT 10/26/2024 7:59 AM CIVIL ENGINEERING ASSISTANT us Emilia Damian MD LAB POCT ORDERABLES - DEV ICE Final Result Performing Organization Address [facility] Co de Phone Number JOHAN ACOSTA ([place]) 1 [facility] [place] [address] * Prepare RBC (10/26/2024 5:06 AM CIVIL ENGINEERING ASSISTANT) Unit Number [id number] Product code [id number] [facility] ([facility]AN) Blood Expiration Date [id number] [facility] ([place]) Product Blood Type (for scanning) 5100 [facility] ([place]AN) Product Blood Type OPOS [facility] ([place]) Dispense Status DISPENSED [facility] ([place]) us Fuentes Persaud MD BLOOD BANK PRODUCT ORDERAB LES Final Result JOHAN ACOSTA ([place]) 1 [facility] [place] [address] * Prepare RBC: 1 Units (10/26/2024 5:06 AM CIVIL ENGINEERING ASSISTANT) Pathologist [facility] Units requested 1 Units requested Ready [facility] (FAN) Blood 10/26/2024 5:06 AM CIVIL ENGINEERING ASSISTANT 10/26/2024 5:07 AM CIVIL ENGINEERING ASSISTANT Narrative JOHAN ACOSTA (FAN) - 10/26/2024 5:08 AM CIVIL ENGINEERING ASSISTANT Are special requirements needed? (All products are leukoreduced and CMV- safe)->No us Rajeev Nassar MD BLOOD BANK PRODUCT ORDERABLES F inal Result JOHAN ACOSTA (FAN) 1 [facility] [place] [address] * (ABNORMAL) eGFR (10/26/2024 2:46 AM CIVIL ENGINEERING ASSISTANT) Pathologist [facility] eGFR 12(L) >=60 mL/min/1. 73 m2 Comment: Interpretive Data Reference Interval Normal >/= 90 mL/min/1.73m2 Mildly decreased* 60 - 89 mL/min/1.73m2 Mildly to moderately decreased 45 - 59 mL/min/1.73m2 Moderately to severely decreased 30 - 44 mL/min/1.73m2 Severely decreased 15 - 29 mL/min/1.73m2 Kidney Failure < 15 mL/min/1.73m2 *Relative to young adult level Estimated glomerular filtration rate is determined by the 2020 CKD-EPI equation recommended by the National Kidney Foundation (A Unifying Approach to GFR Estimation: Recommendations of the NKF-ASK Task Force on Reassessing the Inclusion of Race in Diagnosing Kidney Disease, JASN 2020). The CKD-EPI equation should not be used for patients with unstable renal function and has not been validated in children and those over 70. Current interpretive data was last reviewed 2021. Blood 10/26/2024 2:46 AM CIVIL ENGINEERING ASSISTANT 10/26/2024 3:10 AM CIVIL ENGINEERING ASSISTANT Fuentes Persaud MD LAB BLOOD ORDERABLES Final Result [facility] ([facility]) 1 [facility] [place] [address] * (ABNORMAL) CBC without differential (10/26/2024 2:46 AM CIVIL ENGINEERING ASSISTANT) WBC 5.0 3.8 - 9.9 K/cumm Hgb 6.9(L) 11.9 - 15.5 g/dL [facility] ([place]) Hct 21.8(L) 35.6 - 45.5 % [facility] ([place]) Plt 109(L) 150 - 400 K/cumm [facility] ([place]) MPV 10.1 9.1 - 12.3 fL [facility] ([facility]AN) RBC 2.31(L) 3.90 - 5.20 M/cumm [facility] ([place]) MCV 94.4 81.3 - 96.4 fL [facility] ([place]) MCH 29.9 27.1 - 33.3 pg [facility] ([place]) MCHC 31.7(L) 32.3 - 35.7 g/dL [facility] ([place]) RDW CV 15.0(H) 11.1 - 14.9 % [facility] ([place]) RDW SD 51.6(H) 35.7 - 48.1 fL [facility] (FAN) NRBC abs 0.02(H) 0.00 - 0.01 K/cumm [facility] ([place]AN) Blood 10/26/2024 2:46 AM CIVIL ENGINEERING ASSISTANT 10/26/2024 3:09 AM CIVIL ENGINEERING ASSISTANT Fuentes Persaud MD LAB BLOOD ORDERABLES Final Result [facility] ([place]) 1 [facility] Department [place] [address] * (ABNORMAL) Basic metabolic panel (10/26/2024 2:46 AM CIVIL ENGINEERING ASSISTANT) Sodium 135 135 - 145 mmol/L Potassium, pl 4.3 3.3 - 4.9 mmol/L [facility] ([facility]AN) Chloride 95(L) 97 - 110 mmol/L [facility] (FAN) CO2 27 22 - 32 mmol/L [facility] ([place]) Anion gap 13 2 - 15 mmol/L [facility] ([place]AN) BUN 44(H) 6 - 25 mg/dL [facility] (FAN) Creatinine 3.91(H) 0.60 - 1.10 mg/dL [facility] ([place]AN) Glucose 287(H) 70 - 199 mg/dL [facility] (FAN) Comment: Interpretive Data Fasting glucose >/= 126 mg/dl is diagnostic for diabetes. Fasting is defined as no caloric intake for at least 8 hours. Fasting glucose between 100 mg/dl to 125 mg/dl is diagnostic of prediabetes. In a patient with classic symptoms of hyperglycemia or hyperglycemic crisis, a random glucose >/= 200 mg/dl is diagnostic for diabetes. In the absence of unequivocal hyperglycemia, results should be confirmed by repeat testing. The classification and Diagnosis of Diabetes Diabetes Care 2021; 46: S19-S40. Current interpretive data was last revised 2022. Calcium 8.2(L) 8.5 - 10.3 mg/dL [facility] ([place]AN) Blood 10/26/2024 2:46 AM CIVIL ENGINEERING ASSISTANT 10/26/2024 3:10 AM CIVIL ENGINEERING ASSISTANT us Fuentes Persaud MD LAB BLOOD ORDERABLES Final Result JOHAN ACOSTA ([place]) 1 [facility] [place] [address] * (ABNORMAL) POCT glucose (10/26/2024 2:07 AM CIVIL ENGINEERING ASSISTANT) Glucose, POC 319(H) 70 - 199 mg/dL Comment:Glu2: RN/MD Notified Blood 10/26/2024 2:07 AM CIVIL ENGINEERING ASSISTANT 10/26/2024 2:07 AM CIVIL ENGINEERING ASSISTANT us Emilia Damian MD LAB POCT ORDERABLES - DEV ICE Final Result Performing Organization Address [facility] Co de Phone Number JOHAN ACOSTA ([place]) 1 [facility] [place] [address] * (ABNORMAL) POCT glucose (10/25/2024 8:30 PM CIVIL ENGINEERING ASSISTANT) Glucose, POC 351(H) 70 - 199 mg/dL Blood 10/25/2024 8:30 PM CIVIL ENGINEERING ASSISTANT 10/25/2024 8:30 PM CIVIL ENGINEERING ASSISTANT us Emilia Damian MD LAB POCT ORDERABLES - DEV ICE Final Result Performing Organization Address City/[facility]/ZIP Co de Phone Number JOHAN ACOSTA ([place]) 1 [facility] [place] [address] * (ABNORMAL) POCT glucose (10/25/2024 5:13 PM CIVIL ENGINEERING ASSISTANT) Glucose, POC 344(H) 70 - 199 mg/dL Blood 10/25/2024 5:13 PM CIVIL ENGINEERING ASSISTANT 10/25/2024 5:13 PM CIVIL ENGINEERING ASSISTANT us Emilia Damian MD LAB POCT ORDERABLES - DEV ICE Final Result JOHAN ACOSTA ([place]) 1 [facility] [place] [address] * (ABNORMAL) POCT glucose (10/25/2024 12:08 PM CIVIL ENGINEERING ASSISTANT) Glucose, POC 256(H) 70 - 199 mg/dL Blood 10/25/2024 12:0 8 PM CIVIL ENGINEERING ASSISTANT 10/25/2024 12:08 PM CIVIL ENGINEERING ASSISTANT us Emilia Damian MD LAB POCT ORDERABLES - DEV ICE Final Result JOHAN ACOSTA ([place]) 1 [place] [address] * (ABNORMAL) Hemoglobin and hematocrit (10/25/2024 9:11 AM CIVIL ENGINEERING ASSISTANT) Hgb 7.0(L) 11.9 - 15.5 g/dL Hct 22.1(L) 35.6 - 45.5 % JOHAN ACOSTA ([place]) Blood 10/25/2024 9:11 AM CIVIL ENGINEERING ASSISTANT 10/25/2024 9:16 AM CIVIL ENGINEERING ASSISTANT Emilia Damian MD LAB BLOOD ORDERABLES Adrianna l Result Performing Organization Address [facility] Co de Phone Number JOHAN ACOSTA ([place]) 1 [facility] [place] [address] * ABO/Rh (10/25/2024 6:35 AM CIVIL ENGINEERING ASSISTANT) ABO/Rh O Positive Blood 10/25/2024 6:35 AM CIVIL ENGINEERING ASSISTANT 10/25/2024 7:11 AM CIVIL ENGINEERING ASSISTANT Narrative JOHAN ACOSTA ([place]) - 10/25/2024 7:55 AM CIVIL ENGINEERING ASSISTANT Has the patient had Daratumumab or Isatuximab in the past 6 months?->Unknown us Rajeev Nassar MD LAB BLOOD BANK TEST ORDERABLES Final Result JOHAN [facility] ([place]) 1 [facility] [place] [address] * Crossmatch (10/25/2024 6:35 AM CIVIL ENGINEERING ASSISTANT) Pathologist [facility] Crossmatch Compatible CERNER A ([place]) Unit number for crossmatch [id number] [facility] ([place]) Crossmatch Compatible [facility]ER A ([place]) Unit number for crossmatch [id number] [facility] (FAN) Blood 10/25/2024 6:35 AM CIVIL ENGINEERING ASSISTANT 10/26/2024 4:29 AM CIVIL ENGINEERING ASSISTANT Emilia Damian MD LAB BLOOD BANK TEST ORDER SARIKA Edited Result - Final Performing Organization Address [facility] de Phone Number [facility] ([place]) 1 [place] [address] * Antibody screen (10/25/2024 6:35 AM CIVIL ENGINEERING ASSISTANT) Pathologist [facility] Karon, indirect, Gel Interpretation Negative ABSC Blood 10/25/2024 6:35 AM CIVIL ENGINEERING ASSISTANT 10/25/2024 7:11 AM CIVIL ENGINEERING ASSISTANT Narrative [facility] ([place]) - 10/25/2024 7:55 AM CIVIL ENGINEERING ASSISTANT Has the patient had Daratumumab or Isatuximab in the past 6 months?->Unknown us Rajeev Nassar MD LAB BLOOD BANK TEST ORDERABLES Final Result Performing Organization Address [facility] Co de Phone Number [facility] ([place]) 1 [facility] [place] [address] * (ABNORMAL) eGFR (10/25/2024 3:16 AM CIVIL ENGINEERING ASSISTANT) Pathologist [facility] eGFR 8(L) >=60 mL/min/1. 73 m2 Comment: Interpretive Data Reference Interval Normal >/= 90 mL/min/1.73m2 Mildly decreased* 60 - 89 mL/min/1.73m2 Mildly to moderately decreased 45 - 59 mL/min/1.73m2 Moderately to severely decreased 30 - 44 mL/min/1.73m2 Severely decreased 15 - 29 mL/min/1.73m2 Kidney Failure < 15 mL/min/1.73m2 *Relative to young adult level Estimated glomerular filtration rate is determined by the 2020 CKD-EPI equation recommended by the National Kidney Foundation (A Unifying Approach to GFR Estimation: Recommendations of the NKF-ASK Task Force on Reassessing the Inclusion of Race in Diagnosing Kidney Disease, JASN 2020). The CKD-EPI equation should not be used for patients with unstable renal function and has not been validated in children and those over 70. Current interpretive data was last reviewed 2021. Blood 10/25/2024 3:16 AM CIVIL ENGINEERING ASSISTANT 10/25/2024 4:31 AM CIVIL ENGINEERING ASSISTANT Fuentes Persaud MD LAB BLOOD ORDERABLES Final Result Performing Organization Address City/[facility]/ZIP Co de Phone Number [facility] ([place]) [address] [place] [address] [place] [address] * (ABNORMAL) Procalcitonin (10/25/2024 3:16 AM CIVIL ENGINEERING ASSISTANT) Procalcitonin 0.55(H) <=0.25 ng/mL Comment:Testing performed by : [facility], [facility], [place]., [address] Blood 10/25/2024 3:16 AM CIVIL ENGINEERING ASSISTANT 10/25/2024 5:33 PM CIVIL ENGINEERING ASSISTANT us Emilia Damian MD LAB BLOOD ORDERABLES Adrianna l Result [facility] ([place]) 1 [facility] [place] [address] * (ABNORMAL) CBC without differential (10/25/2024 3:16 AM CIVIL ENGINEERING ASSISTANT) WBC 4.1 3.8 - 9.9 K/cumm Hgb 6.6(L) 11.9 - 15.5 g/dL [facility] ([place]) Hct 20.9(L) 35.6 - 45.5 % [facility] ([place]) Plt 112(L) 150 - 400 K/cumm [facility] ([place]) MPV 10.2 9.1 - 12.3 fL [facility] ([place]) RBC 2.21(L) 3.90 - 5.20 M/cumm [facility] ([place]) MCV 94.6 81.3 - 96.4 fL [facility] ([place]) MCH 29.9 27.1 - 33.3 pg [facility] ([place]) MCHC 31.6(L) 32.3 - 35.7 g/dL [facility] ([place]) RDW CV 15.2(H) 11.1 - 14.9 % [facility] ([place]) RDW SD 52.7(H) 35.7 - 48.1 fL [facility] ([place]) NRBC abs 0.00 0.00 - 0.01 K/cumm [facility] ([place]) Blood 10/25/2024 3:16 AM CIVIL ENGINEERING ASSISTANT 10/25/2024 4:36 AM CIVIL ENGINEERING ASSISTANT us Fuentes Persaud MD LAB BLOOD ORDERABLES Final Result JOHAN ACOSTA ([place]) 1 [facility] [place] [address] * Vancomycin level random (10/25/2024 3:16 AM CIVIL ENGINEERING ASSISTANT) Vancomycin random 21.6 mcg/mL Comment: Random Vancomycin levels may vary due to the amount and time of last dose Current interpretive data was last revised on 2014 Blood 10/25/2024 3:16 AM CIVIL ENGINEERING ASSISTANT 10/25/2024 4:31 AM CIVIL ENGINEERING ASSISTANT us Lesley Cruz MD LAB BLOOD ORDERABLES Final Result JOHAN ACOSTA ([place]) 1 [facility] [employer] [place] [address] * (ABNORMAL) Basic metabolic panel (10/25/2024 3:16 AM CIVIL ENGINEERING ASSISTANT) Sodium 134(L) 135 - 145 mmol/L Potassium, pl 4.5 3.3 - 4.9 mmol/L [facility] (FAN) Chloride 93(L) 97 - 110 mmol/L [facility] (FAN) CO2 26 22 - 32 mmol/L [facility] (FAN) Anion gap 15 2 - 15 mmol/L [facility] ([place]) BUN 45(H) 6 - 25 mg/dL [facility] ([place]) Creatinine 5.38(H) 0.60 - 1.10 mg/dL [facility] (FAN) Glucose 369(H) 70 - 199 mg/dL [facility] (FAN) Comment: Interpretive Data Fasting glucose >/= 126 mg/dl is diagnostic for diabetes. Fasting is defined as no caloric intake for at least 8 hours. Fasting glucose between 100 mg/dl to 125 mg/dl is diagnostic of prediabetes. In a patient with classic symptoms of hyperglycemia or hyperglycemic crisis, a random glucose >/= 200 mg/dl is diagnostic for diabetes. In the absence of unequivocal hyperglycemia, results should be confirmed by repeat testing. The classification and Diagnosis of Diabetes Diabetes Care 2021; 46: S19-S40. Current interpretive data was last revised 2022. Calcium 8.4(L) 8.5 - 10.3 mg/dL [facility] ([place]AN) Blood 10/25/2024 3:16 AM CIVIL ENGINEERING ASSISTANT 10/25/2024 4:31 AM CIVIL ENGINEERING ASSISTANT Fuentes Persaud MD LAB BLOOD ORDERABLES Final Result [facility] ([place]) 1 [facility] Department [place] [address] * (ABNORMAL) POCT glucose (10/25/2024 2:18 AM CIVIL ENGINEERING ASSISTANT) Glucose, POC 364(H) 70 - 199 mg/dL Comment:Glu2: RN/ Notified Blood 10/25/2024 2:18 AM CIVIL ENGINEERING ASSISTANT 10/25/2024 2:18 AM CIVIL ENGINEERING ASSISTANT us Emilia Damian MD LAB POCT ORDERABLES - DEV ICE Final Result Performing Organization Address City/[facility] Co de Phone Number JOHAN ACOSTA ([place]) 1 [facility] [place] [address] * (ABNORMAL) POCT glucose (10/24/2024 11:42 PM CIVIL ENGINEERING ASSISTANT) Glucose, POC 399(H) 70 - 199 mg/dL Blood 10/24/2024 11:4 2 PM CIVIL ENGINEERING ASSISTANT 10/24/2024 11:42 PM CIVIL ENGINEERING ASSISTANT us Emilia Damian MD LAB POCT ORDERABLES - DEV ICE Final Result Performing Organization Address [facility] de Phone Number JOHAN ACOSTA ([place]) 1 [facility] [place] [address] * (ABNORMAL) POCT glucose (10/24/2024 8:31 PM CIVIL ENGINEERING ASSISTANT) Glucose, POC 457(C) 70 - 199 mg/dL Comment:Glu2: RN/MD Notified Blood 10/24/2024 8:31 PM CIVIL ENGINEERING ASSISTANT 10/24/2024 8:31 PM CIVIL ENGINEERING ASSISTANT us Emilia Damian MD LAB POCT ORDERABLES - DEV ICE Final Result Performing Organization Address City/[facility] Co de Phone Number JOHAN ACOSTA ([place]) 1 [facility] [place] [address] * (ABNORMAL) POCT glucose (10/24/2024 8:30 PM CIVIL ENGINEERING ASSISTANT) Glucose, POC 450(C) 70 - 199 mg/dL Blood 10/24/2024 8:30 PM CIVIL ENGINEERING ASSISTANT 10/24/2024 8:30 PM CIVIL ENGINEERING ASSISTANT us Emilia Damian MD LAB POCT ORDERABLES - DEV ICE Final Result JOHAN ACOSTA ([place]) 1 [facility] [place] [address] * (ABNORMAL) POCT glucose (10/24/2024 4:55 PM CIVIL ENGINEERING ASSISTANT) Glucose, POC 462(C) 70 - 199 mg/dL Comment:Glu2: RN/MD Notified Blood 10/24/2024 4:55 PM CIVIL ENGINEERING ASSISTANT 10/24/2024 4:55 PM CIVIL ENGINEERING ASSISTANT Emilia Damian MD LAB POCT ORDERABLES - DEV ICE Final Result Performing Organization Address City/[facility] Co de Phone Number JOHAN ACOSTA ([place]) 1 [facility] [place] [address] * CT Head WO Contrast (10/24/2024 3:12 PM CIVIL ENGINEERING ASSISTANT) Anatomical Region Laterality Modality Head and Neck N/A Computed Tomogra phy 10/24/2024 4:49 PM CIVIL ENGINEERING ASSISTANT Narrative 10/24/2024 4:53 PM CIVIL ENGINEERING ASSISTANT EXAM DESCRIPTION: CT HEAD WO CONTRAST REASON FOR STUDY: confusion Confusion and altered mental status TECHNIQUE: Axial images acquired through the brain without intravenous contrast. Images stored on PACS. Automated exposure control was used as a dose optimization technique for this examination. COMPARISON: 07/26/2024 FINDINGS: BRAIN: Examination is limited by significant motion artifact. No definite intra or extra-axial hemorrhage, mass or edema. Mild periventricular white matter hypoattenuation. No hydrocephalus. CALVARIUM: No fracture. SINUSES/MASTOIDS: Mild mucosal thickening within the left maxillary sinus. Mild mucosal thickening within the ethmoid sinuses. ORBITS: No significant abnormality. OTHER: No other significant abnormality. IMPRESSION: 1. Examination is limited by significant motion artifact. No gross acute intracranial abnormality is seen given the limitations. THIS IS AN ELECTRONICALLY VERIFIED FINAL REPORT 10/24/2024 4:53 PM - Electronically signed by Barber Poe M.D. AG: LEE Michaels: 10/24/2024 4:53 PM Report ID: [id number] Reading Location: [id number] Procedure Note Barber Poe MD - 10/24/2024 EXAM DESCRIPTION: CT HEAD WO CONTRAST REASON FOR STUDY: confusion Confusion and altered mental status TECHNIQUE: Axial images acquired through the brain without intravenous contrast. Images stored on PACS. Automated exposure control was used asa dose optimization technique for this examination. COMPARISON: 07/26/2024 FINDINGS: BRAIN: Examination is limited by significant motion artifact. Nodefinite intra or extra-axial hemorrhage, mass or edema. Mild periventricularwhite matter hypoattenuation. No hydrocephalus. CALVARIUM: No fracture. SINUSES/MASTOIDS: Mild mucosal thickening within the left maxillarysinus. Mild mucosal thickening within the ethmoid sinuses. ORBITS: No significant abnormality. OTHER: No other significant abnormality. IMPRESSION: 1. Examination is limited by significant motion artifact. No grossacute intracranial abnormality is seen given the limitations. THIS IS AN ELECTRONICALLY VERIFIED FINAL REPORT 10/24/2024 4:53 PM - Electronically signed by Barber Poe M.D. AG: ELE Report ID: [id number] Reading Location: [id number] Emilia Damian MD IMG CT PROCEDURES Final R esult * (ABNORMAL) POCT glucose (10/24/2024 11:48 AM CIVIL ENGINEERING ASSISTANT) Glucose, POC 400(H) 70 - 199 mg/dL Blood 10/24/2024 11:4 8 AM CIVIL ENGINEERING ASSISTANT 10/24/2024 11:48 AM CIVIL ENGINEERING ASSISTANT Emilia Damian MD LAB POCT ORDERABLES - DEV ICE Final Result [facility] ([place]) 1 [facility] Department [place] [address] * (ABNORMAL) Iron profile w/ IBC (10/24/2024 8:10 AM CIVIL ENGINEERING ASSISTANT) Iron 115 35 - 145 mcg/dL TIBC 177(L) 250 - 400 mcg/dL [facility] Transferrin saturation 65(H) 20 - 50 % [facility] ([place]) Blood 10/24/2024 8:10 AM CIVIL ENGINEERING ASSISTANT 10/24/2024 8:25 AM CIVIL ENGINEERING ASSISTANT Lesley Cruz MD LAB BLOOD ORDERABLES Final Result JOHAN ACOSTA ([place]) 1 [facility] [place] [address] * (ABNORMAL) Folate (10/24/2024 8:10 AM CIVIL ENGINEERING ASSISTANT) Pathologist [facility] Folic acid 4.0(L) >=5.0 ng/mL Comment:Slightly Hemolyzed S pecimen. Results may be affected. Blood 10/24/2024 8:10 AM CIVIL ENGINEERING ASSISTANT 10/24/2024 8:25 AM CIVIL ENGINEERING ASSISTANT Lesley Cruz MD LAB BLOOD ORDERABLES Final Result Performing Organization Address City/[facility]/ZIP Co de Phone Number JOHAN ACOSTA ([place]) 1 [facility] [place] [address] * (ABNORMAL) Ferritin (10/24/2024 8:10 AM CIVIL ENGINEERING ASSISTANT) Pathologist [facility] Ferritin 1,216(H) 15 - 150 ng/mL Blood 10/24/2024 8:10 AM CIVIL ENGINEERING ASSISTANT 10/24/2024 8:25 AM CIVIL ENGINEERING ASSISTANT Lesley Cruz MD LAB BLOOD ORDERABLES Final Result [facility] ([place]) 1 [facility] [facility] [place] [address] * Vitamin B12 (10/24/2024 8:10 AM CIVIL ENGINEERING ASSISTANT) [facility] Vitamin B12 325 230 - 1,250 pg/mL Blood 10/24/2024 8:10 AM CIVIL ENGINEERING ASSISTANT 10/24/2024 8:25 AM CIVIL ENGINEERING ASSISTANT us Lesley Cruz MD LAB BLOOD ORDERABLES Final Result [facility] ([place] [address] [place] [address] [place] [address] * (ABNORMAL) POCT glucose (10/24/2024 7:53 AM CIVIL ENGINEERING ASSISTANT) [facility] Glucose, POC 318(H) 70 - 199 mg/dL Blood 10/24/2024 7:53 AM CIVIL ENGINEERING ASSISTANT 10/24/2024 7:53 AM CIVIL ENGINEERING ASSISTANT Emilia Damian MD LAB POCT ORDERABLES - DEV ICE Final Result Performing Organization Address City/[facility]/ZIP Co de Phone Number [facility] ([place]) 1 [facility] [place] [address] * (ABNORMAL) eGFR (10/24/2024 3:36 AM CIVIL ENGINEERING ASSISTANT) [facility] eGFR 11(L) >=60 mL/min/1. 73 m2 Comment: Interpretive Data Reference Interval Normal >/= 90 mL/min/1.73m2 Mildly decreased* 60 - 89 mL/min/1.73m2 Mildly to moderately decreased 45 - 59 mL/min/1.73m2 Moderately to severely decreased 30 - 44 mL/min/1.73m2 Severely decreased 15 - 29 mL/min/1.73m2 Kidney Failure < 15 mL/min/1.73m2 *Relative to young adult level Estimated glomerular filtration rate is determined by the 2020 CKD-EPI equation recommended by the National Kidney Foundation (A Unifying Approach to GFR Estimation: Recommendations of the NKF-ASK Task Force on Reassessing the Inclusion of Race in Diagnosing Kidney Disease, JASN 2020). The CKD-EPI equation should not be used for patients with unstable renal function and has not been validated in children and those over 70. Current interpretive data was last reviewed 2021. Blood 10/24/2024 3:36 AM CIVIL ENGINEERING ASSISTANT 10/24/2024 3:42 AM CIVIL ENGINEERING ASSISTANT Yariel Alfredo MD LAB BLOOD ORDERABLES Final Resu lt [facility] ([place]) 1 [facility] Department [place] [address] * Blood culture Blood (10/24/2024 3:36 AM CIVIL ENGINEERING ASSISTANT) Report Final Report: No growth Comment:Testing performed by : [facility], [address] [place]., [address] Blood 10/24/2024 3:36 AM CIVIL ENGINEERING ASSISTANT 10/24/2024 5:45 AM CIVIL ENGINEERING ASSISTANT Narrative [facility] ([place]) - 10/28/2024 7:00 AM CIVIL ENGINEERING ASSISTANT From a different site than #1. Collection->Peripheral 1. Blood cultures are incubated for 4 days on a continuously monitored blood culture system. The first report of a negative culture is issued within 24 hours of receipt of the specimen in the laboratory. 2. Positive culture results are reported as soon as they are detected. 3. The most important factor for detection of microbes in the setting of bloodstream infection is the volume of blood submitted for culture. Failure to collect an optimal blood volume can result in false negative blood cultures. 4. For pediatric patients, the recommended blood volume to collect follows a weight based strategy. See the electronic test catalog for collection instructions. 5. For positive blood cultures, a rapid molecular test may be performed for organism identification using the gui ePlex blood culture identification panel for gram positive (BCID-GP) and gram negative (BCID-GN) organisms. This nucleic acid amplification test detects microbial DNA in positive blood culture broth. This assay has been cleared by the [place] Food and Drug Administration and its performance characteristics have been verified by the [facility] Microbiology [facility]. For questions about this culture, contact the Microbiology Laboratory at [phone]. Interpretive data was last revised on 24. us Fuentes Persaud MD LAB MICROBIOLOGY - GENERAL ORDERABLES Final Result [facility] ([place]) 1 [facility] [place] [address] * (ABNORMAL) CBC without differential (10/24/2024 3:36 AM CIVIL ENGINEERING ASSISTANT) WBC 4.8 3.8 - 9.9 K/cumm Hgb 7.1(L) 11.9 - 15.5 g/dL [facility] ([place]) Hct 22.5(L) 35.6 - 45.5 % [facility] ([place]) Plt 125(L) 150 - 400 K/cumm [facility] ([place]) MPV 9.2 9.1 - 12.3 fL [facility] ([place]) RBC 2.39(L) 3.90 - 5.20 M/cumm [facility] ([place]) MCV 94.1 81.3 - 96.4 fL [facility] ([place]) MCH 29.7 27.1 - 33.3 pg [facility] ([place]) MCHC 31.6(L) 32.3 - 35.7 g/dL [facility] ([place]) RDW CV 15.1(H) 11.1 - 14.9 % [facility] ([place]) RDW SD 52.0(H) 35.7 - 48.1 fL [facility] ([place]) NRBC abs 0.00 0.00 - 0.01 K/cumm [facility] ([place]) Blood 10/24/2024 3:36 AM CIVIL ENGINEERING ASSISTANT 10/24/2024 3:43 AM CIVIL ENGINEERING ASSISTANT Fuentes Persaud MD LAB BLOOD ORDERABLES Final Result [facility] ([place]) 1 [facility] [place] [address] * Hemoglobin A1c (10/24/2024 3:36 AM CIVIL ENGINEERING ASSISTANT) Hgb A1C 5.4 4.0 - 5.6 % Estimated Average Glucose 108 mg/dL [facility] ([place]) Comment: The ADA recommends reporting an estimated Average Glucose (eAG) with all Hemoglobin A1c results using the equation derived from a study of 507 normal and diabetic adults. Minority populations were underrepresented and children were not included. (Diabetes Care 31:3854-4268, 2008). The eAG is not equivalent to a fasting glucose. Blood 10/24/2024 3:36 AM CIVIL ENGINEERING ASSISTANT 10/24/2024 2:35 PM CIVIL ENGINEERING ASSISTANT Emilia Damian MD LAB BLOOD ORDERABLES Adrianna l Result [facility] ([place]) 1 [facility] Department [place] [address] * (ABNORMAL) Basic metabolic panel (10/24/2024 3:36 AM CIVIL ENGINEERING ASSISTANT) Sodium 135 135 - 145 mmol/L Potassium, pl 4.0 3.3 - 4.9 mmol/L [facility] ([place]) Chloride 95(L) 97 - 110 mmol/L [facility] ([place]) CO2 26 22 - 32 mmol/L [facility] ([place]) Anion gap 14 2 - 15 mmol/L [facility] ([place]) BUN 28(H) 6 - 25 mg/dL [facility] ([place]) Creatinine 4.26(H) 0.60 - 1.10 mg/dL [facility] ([place]) Glucose 314(H) 70 - 199 mg/dL [facility] ([place]) Comment: Interpretive Data Fasting glucose >/= 126 mg/dl is diagnostic for diabetes. Fasting is defined as no caloric intake for at least 8 hours. Fasting glucose between 100 mg/dl to 125 mg/dl is diagnostic of prediabetes. In a patient with classic symptoms of hyperglycemia or hyperglycemic crisis, a random glucose >/= 200 mg/dl is diagnostic for diabetes. In the absence of unequivocal hyperglycemia, results should be confirmed by repeat testing. The classification and Diagnosis of Diabetes Diabetes Care 202; 46: S19-S40. Current interpretive data was last revised 2022. Calcium 8.7 8.5 - 10.3 mg/dL [facility] ([place]) Blood 10/24/2024 3:36 AM CIVIL ENGINEERING ASSISTANT 10/24/2024 3:42 AM CIVIL ENGINEERING ASSISTANT Funetes Persaud MD LAB BLOOD ORDERABLES Final Result [facility] ([place]) 1 [facility] [place] [address] * (ABNORMAL) POCT glucose (10/24/2024 3:11 AM CIVIL ENGINEERING ASSISTANT) Glucose, POC 324(H) 70 - 199 mg/dL Blood 10/24/2024 3:11 AM CIVIL ENGINEERING ASSISTANT 10/24/2024 3:11 AM CIVIL ENGINEERING ASSISTANT Luis Manuel Hodges Jr., MD LAB POCT ORDERABLES - DEVICE Final Result Performing Organization Address [facility] Co de Phone Number [facility] ([place]) 1 [facility] [place] [address] * (ABNORMAL) POCT glucose (10/23/2024 9:27 PM CIVIL ENGINEERING ASSISTANT) Glucose, POC 305(H) 70 - 199 mg/dL Blood 10/23/2024 9:27 PM CIVIL ENGINEERING ASSISTANT 10/23/2024 9:27 PM CIVIL ENGINEERING ASSISTANT Luis Manuel Hodges Jr., MD LAB POCT ORDERABLES - DEVICE Final Result Performing Organization Address City/[facility]/ZIP Co de Phone Number [facility] ([place]) 1 [facility] [place] [address] * Blood culture Blood (10/23/2024 4:51 PM CIVIL ENGINEERING ASSISTANT) Report Final Report: No growth Comment:Testing performed by : [facility], 1 [facility], [place]., [address] Blood 10/23/2024 4:51 PM CIVIL ENGINEERING ASSISTANT 10/23/2024 7:49 PM CIVIL ENGINEERING ASSISTANT Narrative [facility] ([place]) - 10/28/2024 7:00 AM CIVIL ENGINEERING ASSISTANT Collection->Peripheral Received only aerobic blood culture bottle 1. Blood cultures are incubated for 4 days on a continuously monitored blood culture system. The first report of a negative culture is issued within 24 hours of receipt of the specimen in the laboratory. 2. Positive culture results are reported as soon as they are detected. 3. The most important factor for detection of microbes in the setting of bloodstream infection is the volume of blood submitted for culture. Failure to collect an optimal blood volume can result in false negative blood cultures. 4. For pediatric patients, the recommended blood volume to collect follows a weight based strategy. See the electronic test catalog for collection instructions. 5. For positive blood cultures, a rapid molecular test may be performed for organism identification using the gui ePlex blood culture identification panel for gram positive (BCID-GP) and gram negative (BCID-GN) organisms. This nucleic acid amplification test detects microbial DNA in positive blood culture broth. This assay has been cleared by the [place] Food and Drug Administration and its performance characteristics have been verified by the [facility] Microbiology Laboratory. For questions about this culture, contact the Microbiology Laboratory at [phone]. Interpretive data was last revised on 24. Fuentes Persaud MD LAB MICROBIOLOGY - GENERAL ORDERABLES Final Result Performing Organization Address City/[facility]/ZIP Co de Phone Number [facility] ([place]) 1 [facility] [place] [address] * (ABNORMAL) POCT glucose (10/23/2024 4:02 PM CIVIL ENGINEERING ASSISTANT) [facility] Signature Glucose, POC 220(H) 70 - 199 mg/dL Blood 10/23/2024 4:02 PM CIVIL ENGINEERING ASSISTANT 10/23/2024 4:02 PM CIVIL ENGINEERING ASSISTANT Luis Manuel Hodges Jr., MD LAB POCT ORDERABLES - DEVICE Final Result Performing Organization Address City/[facility]/ZIP Co de Phone Number [facility] ([place]) 1 [facility] Department [place] [address] * POCT glucose (10/23/2024 12:10 PM CIVIL ENGINEERING ASSISTANT) Glucose, POC 172 70 - 199 mg/dL Blood 10/23/2024 12:1 0 PM CIVIL ENGINEERING ASSISTANT 10/23/2024 12:10 PM CIVIL ENGINEERING ASSISTANT Luis Manuel Hodges Jr., MD LAB POCT ORDERABLES - DEVICE Final Result Performing Organization Address City/[facility] Co de Phone Number [facility] ([place]) 1 [facility] [place] [address] * (ABNORMAL) Blood gas, arterial (10/23/2024 9:06 AM CIVIL ENGINEERING ASSISTANT) pH, Art 7.36 7.35 - 7.45 PCO2, Arterial 47(H) 35 - 45 mmHg [facility] ([place]) PO2, Arterial 109(H) 83 - 108 mmHg [facility] ([place]) HCO3 Art (Calculated) 26 20 - 30 mmol/L [facility] ([place]) BE, art 1 mmol/L [facility] ([place]) Comment: Interpretive Data No Reference Range Established Current Interpretive Data was last revised on 2017 O2 Sat Art (Measured) 98(H) 90 - 95 % [facility] ([place]) Blood 10/23/2024 9:06 AM CIVIL ENGINEERING ASSISTANT 10/23/2024 9:08 AM CIVIL ENGINEERING ASSISTANT Fuentes Persaud MD LAB BLOOD ORDERABLES Final Result Performing Organization Address City/[facility]/ZIP Co de Phone Number [facility] ([place]) 1 [facility] [place] [address] * (ABNORMAL) POCT glucose (10/23/2024 8:09 AM CIVIL ENGINEERING ASSISTANT) Glucose, POC 254(H) 70 - 199 mg/dL Blood 10/23/2024 8:09 AM CIVIL ENGINEERING ASSISTANT 10/23/2024 8:09 AM CIVIL ENGINEERING ASSISTANT Fuentes Persaud MD LAB POCT ORDERABLES - BRITTANY CE Final Result [facility] ([place]) 1 [facility] Department [place] [address] * Blood culture Blood (10/23/2024 5:56 AM CIVIL ENGINEERING ASSISTANT) Report Final Report: No growth Comment:Testing performed by : [facility], [address] [place]., [address] Blood 10/23/2024 5:56 AM CIVIL ENGINEERING ASSISTANT 10/23/2024 10:01 AM CIVIL ENGINEERING ASSISTANT Narrative [facility] ([place]) - 10/27/2024 12:00 PM CIVIL ENGINEERING ASSISTANT From a different site than #1. Collection->Peripheral 1. Blood cultures are incubated for 4 days on a continuously monitored blood culture system. The first report of a negative culture is issued within 24 hours of receipt of the specimen in the laboratory. 2. Positive culture results are reported as soon as they are detected. 3. The most important factor for detection of microbes in the setting of bloodstream infection is the volume of blood submitted for culture. Failure to collect an optimal blood volume can result in false negative blood cultures. 4. For pediatric patients, the recommended blood volume to collect follows a weight based strategy. See the electronic test catalog for collection instructions. 5. For positive blood cultures, a rapid molecular test may be performed for organism identification using the gui ePlex blood culture identification panel for gram positive (BCID-GP) and gram negative (BCID-GN) organisms. This nucleic acid amplification test detects microbial DNA in positive blood culture broth. This assay has been cleared by the [place] Food and Drug Administration and its performance characteristics have been verified by the [facility] Microbiology Laboratory. For questions about this culture, contact the Microbiology Laboratory at [phone]. Interpretive data was last revised on 24. Yariel Alfredo MD LAB MICROBIOLOGY - GENERAL TAMRA CABRERA Final Result [facility] ([place]) 1 [facility] Department [place] [address] * (ABNORMAL) eGFR (10/23/2024 5:38 AM CIVIL ENGINEERING ASSISTANT) eGFR 7(L) >=60 mL/min/1. 73 m2 Comment: Interpretive Data Reference Interval Normal >/= 90 mL/min/1.73m2 Mildly decreased* 60 - 89 mL/min/1.73m2 Mildly to moderately decreased 45 - 59 mL/min/1.73m2 Moderately to severely decreased 30 - 44 mL/min/1.73m2 Severely decreased 15 - 29 mL/min/1.73m2 Kidney Failure < 15 mL/min/1.73m2 *Relative to young adult level Estimated glomerular filtration rate is determined by the 2020 CKD-EPI equation recommended by the National Kidney Foundation (A Unifying Approach to GFR Estimation: Recommendations of the NKF-ASK Task Force on Reassessing the Inclusion of Race in Diagnosing Kidney Disease, JASN 2020). The CKD-EPI equation should not be used for patients with unstable renal function and has not been validated in children and those over 70. Current interpretive data was last reviewed 2021. Blood 10/23/2024 5:38 AM CIVIL ENGINEERING ASSISTANT 10/23/2024 5:47 AM CIVIL ENGINEERING ASSISTANT us Yariel Alfredo MD LAB BLOOD ORDERABLES Final Resu lt [facility] ([place]) 1 [facility] Department [place] [address] * Blood culture Blood (10/23/2024 5:38 AM CIVIL ENGINEERING ASSISTANT) Report Final Report: No growth Comment:Testing performed by : [facility], 1 [facility], [place]., [address] Blood 10/23/2024 5:38 AM CIVIL ENGINEERING ASSISTANT 10/23/2024 7:45 AM CIVIL ENGINEERING ASSISTANT Narrative [facility] ([place]) - 10/27/2024 12:00 PM CIVIL ENGINEERING ASSISTANT Collection->Peripheral 1. Blood cultures are incubated for 4 days on a continuously monitored blood culture system. The first report of a negative culture is issued within 24 hours of receipt of the specimen in the laboratory. 2. Positive culture results are reported as soon as they are detected. 3. The most important factor for detection of microbes in the setting of bloodstream infection is the volume of blood submitted for culture. Failure to collect an optimal blood volume can result in false negative blood cultures. 4. For pediatric patients, the recommended blood volume to collect follows a weight based strategy. See the electronic test catalog for collection instructions. 5. For positive blood cultures, a rapid molecular test may be performed for organism identification using the gui ePlex blood culture identification panel for gram positive (BCID-GP) and gram negative (BCID-GN) organisms. This nucleic acid amplification test detects microbial DNA in positive blood culture broth. This assay has been cleared by the [place] Food and Drug Administration and its performance characteristics have been verified by the [facility]biology Laboratory. For questions about this culture, contact the Microbiology Laboratory at [phone]. Interpretive data was last revised on 24. Yariel Alfredo MD LAB MICROBIOLOGY - [facility] Final Result [facility] ([place]) 1 [facility] Department [place] [address] * (ABNORMAL) CBC without differential (10/23/2024 5:38 AM CIVIL ENGINEERING ASSISTANT) WBC 3.8 3.8 - 9.9 K/cumm Hgb 7.6(L) 11.9 - 15.5 g/dL [facility] ([place]) Hct 24.0(L) 35.6 - 45.5 % [facility] ([place]) Plt 128(L) 150 - 400 K/cumm [facility] ([place]) MPV 9.8 9.1 - 12.3 fL [facility] ([place]) RBC 2.55(L) 3.90 - 5.20 M/cumm [facility] ([place]) MCV 94.1 81.3 - 96.4 fL [facility] ([place]) MCH 29.8 27.1 - 33.3 pg [facility] ([place]) MCHC 31.7(L) 32.3 - 35.7 g/dL [facility] ([place]) RDW CV 15.2(H) 11.1 - 14.9 % [facility] ([place]) RDW SD 52.5(H) 35.7 - 48.1 fL [facility] ([place]) NRBC abs 0.00 0.00 - 0.01 K/cumm [facility] ([facility]) Blood 10/23/2024 5:38 AM CIVIL ENGINEERING ASSISTANT 10/23/2024 5:47 AM CIVIL ENGINEERING ASSISTANT Fuentes Persaud MD LAB BLOOD ORDERABLES Final Result [facility] ([place]) 1 [facility] [place] [address] * (ABNORMAL) Phosphorus (10/23/2024 5:38 AM CIVIL ENGINEERING ASSISTANT) Pathologist [facility] Phosphorus, pl 5.1(H) 2.3 - 4.5 mg/dL Blood 10/23/2024 5:38 AM CIVIL ENGINEERING ASSISTANT 10/23/2024 5:47 AM CIVIL ENGINEERING ASSISTANT Yariel Alfredo MD LAB BLOOD ORDERABLES Final Resu lt [facility] ([place]) 1 [facility] [place] [address] * Magnesium (10/23/2024 5:38 AM CIVIL ENGINEERING ASSISTANT) Pathologist [facility] Magnesium 1.9 1.4 - 2.5 mg/dL Blood 10/23/2024 5:38 AM CIVIL ENGINEERING ASSISTANT 10/23/2024 5:47 AM CIVIL ENGINEERING ASSISTANT Fuentes Persaud MD LAB BLOOD ORDERABLES Final Result [facility] ([place]) 1 [facility] [place] [address] * (ABNORMAL) Basic metabolic panel (10/23/2024 5:38 AM CIVIL ENGINEERING ASSISTANT) Sodium 139 135 - 145 mmol/L Potassium, pl 4.3 3.3 - 4.9 mmol/L [facility] ([place]) Chloride 99 97 - 110 mmol/L [facility] ([place]) CO2 22 22 - 32 mmol/L [facility] ([place]) Anion gap 18(H) 2 - 15 mmol/L [facility] ([place]) BUN 39(H) 6 - 25 mg/dL [facility] ([place]) Creatinine 6.14(H) 0.60 - 1.10 mg/dL [facility] ([place]) Glucose 259(H) 70 - 199 mg/dL [facility] ([place]) Comment: Interpretive Data Fasting glucose >/= 126 mg/dl is diagnostic for diabetes. Fasting is defined as no caloric intake for at least 8 hours. Fasting glucose between 100 mg/dl to 125 mg/dl is diagnostic of prediabetes. In a patient with classic symptoms of hyperglycemia or hyperglycemic crisis, a random glucose >/= 200 mg/dl is diagnostic for diabetes. In the absence of unequivocal hyperglycemia, results should be confirmed by repeat testing. The classification and Diagnosis of Diabetes Diabetes Care 2021; 46: S19-S40. Current interpretive data was last revised 2022. Calcium 8.8 8.5 - 10.3 mg/dL [facility] ([place]) Blood 10/23/2024 5:38 AM CIVIL ENGINEERING ASSISTANT 10/23/2024 5:47 AM CIVIL ENGINEERING ASSISTANT Fuentes Persaud MD LAB BLOOD ORDERABLES Final Result Performing Organization Address City/[facility]/ZIP Co de Phone Number [facility] ([place]) 1 [facility] [place] [place] [address] * (ABNORMAL) POCT glucose (10/23/2024 5:12 AM CIVIL ENGINEERING ASSISTANT) Glucose, POC 260(H) 70 - 199 mg/dL Blood 10/23/2024 5:12 AM CIVIL ENGINEERING ASSISTANT 10/23/2024 5:12 AM CIVIL ENGINEERING ASSISTANT Fuentes Persaud MD LAB POCT ORDERABLES - BRITTANY CE Final Result Performing Organization Address City/[facility]/ZIP Co de Phone Number [facility] ([place]) 1 [facility] Department [place] [address] * (ABNORMAL) POCT glucose (10/23/2024 12:06 AM CIVIL ENGINEERING ASSISTANT) Glucose, POC 256(H) 70 - 199 mg/dL Blood 10/23/2024 12:0 6 AM CIVIL ENGINEERING ASSISTANT 10/23/2024 12:06 AM CIVIL ENGINEERING ASSISTANT Result [facility] Fuentes Persaud MD LAB POCT ORDERABLES - BRITTANY CE Final Result [facility] ([place]) 1 [place] [address] * ECG 12 lead (10/22/2024 8:24 PM CIVIL ENGINEERING ASSISTANT) 10/22/2024 8:24 PM CIVIL ENGINEERING ASSISTANT Narrative [facility] - 10/23/2024 6:25 AM CIVIL ENGINEERING ASSISTANT Vent Rate: 70 bpm RR Interval: 846 msec MA Interval: 239 msec QRS Duration: 119 msec QT Interval: 427 msec QTC Interval: 449 msec P-R-T [place]: 76 - 74 - 92 degrees IMPRESSION: SINUS RHYTHM WITH FIRST DEGREE AV BLOCK LOW QRS VOLTAGE IN PRECORDIAL LEADS [QRS DEFLECTION < 1.0 mV IN CHEST LEADS] MODERATE INTRAVENTRICULAR CONDUCTION DELAY [105+ ms QRS DURATION, 80+ ms Q/S IN V1/V2, NO Q AND 60+ ms R IN I/aVL/V5/V6] NONSPECIFIC T-WAVE ABNORMALITY ABNORMAL ECG NO CHANGE FROM PREVIOUS TRACING NOTED Electronically Signed By: Jeremy Calix MD Result [facility] Yariel Alfredo MD ECG ORDERABLES Final Result [email or web address] [facility] * (ABNORMAL) POCT glucose (10/22/2024 7:18 PM CIVIL ENGINEERING ASSISTANT) Glucose, POC 262(H) 70 - 199 mg/dL Blood 10/22/2024 7:18 PM CIVIL ENGINEERING ASSISTANT 10/22/2024 7:18 PM CIVIL ENGINEERING ASSISTANT Result [facility] Fuentes Persaud MD LAB POCT ORDERABLES - BRITTANY CE Final Result [facility] ([place]) [address] [place] [id number] * (ABNORMAL) POCT glucose (10/22/2024 6:36 PM CIVIL ENGINEERING ASSISTANT) [facility] Glucose, POC 261(H) 70 - 199 mg/dL Blood 10/22/2024 6:36 PM CIVIL ENGINEERING ASSISTANT 10/22/2024 6:36 PM CIVIL ENGINEERING ASSISTANT Fuentes Persaud MD LAB POCT ORDERABLES - BRITTANY CE Final Result Performing Organization Address [facility] Co de Phone Number [facility] ([place]) [address] [place] [id number] * (ABNORMAL) MRSA Only (Staphylococcus aureus) PCR Nasal (10/22/2024 5:32 PM CIVIL ENGINEERING ASSISTANT) [facility] PCR Scrn, Methicillin resistant Staphylococcus aureus (MRSA) Detected( A) Not Detected Comment: Interpretive Data Testing performed using Nucleic Acid Amplification with the [employer] Xpert MRSA NxG Assay. This assay detects target DNA from mecA, mecC and the SCCmec insertion site of Staphylococcus aureus using Real-Time PCR and has been cleared by the FDA. Performance characteristics have been verified by the [facility]. Current Interpretive Data was last revised on 2023 Nasal 10/22/2024 5:32 PM CIVIL ENGINEERING ASSISTANT 10/22/2024 5:52 PM CIVIL ENGINEERING ASSISTANT Fuentes Persaud MD LAB MICROBIOLOGY - GENERAL ORDERABLES Final Result Performing Organization Address City/[facility]/ZIP Co de Phone Number [facility] ([place]) [address] [place] [id number] * (ABNORMAL) Troponin T high-sensitivity 6-hour (10/22/2024 5:04 PM CIVIL ENGINEERING ASSISTANT) [facility] Trop T hs 128(H) <=14 ng/L Comment: Interpretive Data For further hscTnT resources including the diagnostic algorithm and an aid in interpretation, copy and paste this link: https://nrl.testcatalog.org/show/hsTrop Current Interpretive Data last revised 2020. Trop T hs pct delta 23(C) % [facility] ([place]) Comment:Critical Result call ed by [email or web address] at 2024-10-22 17:49:17. Result Read Back by Hollie Mars (ED clinical resource nurse) Trop T hs interp Significa nt(C) JOHAN ACOSTA ([place]) Comment:Critical Result call ed by [id number] at 2024-10-22 17:49:17. Result Read Back by Hollie Mars (ED clinical resource nurse) Blood 10/22/2024 5:04 PM CIVIL ENGINEERING ASSISTANT 10/22/2024 5:28 PM CIVIL ENGINEERING ASSISTANT Vincenzo Montgomery MD LAB BLOOD ORDERABLES Final Result JOHAN ACOSTA ([place]) 1 [facility] Department [place] [address] * (ABNORMAL) Troponin T high-sensitivity 4-hour (10/22/2024 4:22 PM CIVIL ENGINEERING ASSISTANT) Trop T hs 126(H) <=14 ng/L Comment: Interpretive Data For further hscTnT resources including the diagnostic algorithm and an aid in interpretation, copy and paste this link: https://nrl.testcatPageBites.org/show/hsTrop Current Interpretive Data last revised 2020. Trop T hs delta See Comment ng/L CE RNMELISSA ACOSTA ([place]) Comment:Inappropriate collec tion time to report a delta. Trop T hs pct delta See Comment % CERWON ACOSTA ([place]) Comment:Inappropriate collec tion time to report a delta. Trop T hs interp See Comment C ERNMELISSA ACOSTA ([place]) Comment:Inappropriate collec tion time to report a delta. Blood 10/22/2024 4:22 PM CIVIL ENGINEERING ASSISTANT 10/22/2024 4:26 PM CIVIL ENGINEERING ASSISTANT Vincenzo Montgomery MD LAB BLOOD ORDERABLES Final Result [facility] ([place]) 1 [facility] Department [place] [address] * (ABNORMAL) POCT glucose (10/22/2024 4:20 PM CIVIL ENGINEERING ASSISTANT) Glucose, POC 241(H) 70 - 199 mg/dL Blood 10/22/2024 4:20 PM CIVIL ENGINEERING ASSISTANT 10/22/2024 4:20 PM CIVIL ENGINEERING ASSISTANT Fuentes Persaud MD LAB POCT ORDERABLES - BRITTANY CE Final Result Performing Organization Address City/[facility] Co de Phone Number JOHAN ACOSTA ([place]) 1 [facility] Department [place] [address] * MA CRITICAL CARE ILL/INJURED PATIENT INIT 30-74 MIN (10/22/2024 3:53 PM CIVIL ENGINEERING ASSISTANT) Narrative Vincenzo Montgomery MD - 10/22/2024 3:53 PM CIVIL ENGINEERING ASSISTANT Vincenzo Montgomery MD 10/22/2024 3:55 PM Critical Care Performed by: Vincenzo Montgomery MD Authorized by: Vincenzo Montgomery MD Critical care provider statement: As reflected in the history, physical exam, orders, notes, and/or MDM, I was personally present while the patient was critically ill and provided critical care services for 47 minutes, excluding time involved in separately billable procedures. Critical care was necessary to treat or prevent imminent or life-threatening deterioration of the following condition(s): unstable vital signs acute delirium COPD with acute exacerbation, hypercarbic respiratory failure and severe respiratory condition severe metabolic condition pneumonia, bacteremia, sepsis and severe infectious condition Critical care was time spent by me providing the following: continuous telemetry, continuous pulse oximetry, continuous capnography, interpretation of bedside monitors, imaging, and arterial/venous lab draws, serial bedside patient exams, serial laboratory checks, arterial puncture and resuscitation with fluids supplemental oxygen and non-invasive positive pressure ventilator management initiation of steroids review prior cultures/records, obtain appropriate cultures and empiric broad coverage antibiotics I provided emergent necessary critical care medicine services to this patient. I ordered and reviewed test results and/or imaging studies. I spent time discussing the management of this critically ill patient with consultants and the medical staff. I spent time discussing the management and therapeutic options for this critically ill patient with the patient themselves or with the appropriate designated surrogate decision-maker. I spent time documenting in the medical record. I admitted this patient to an Intensive Care unit (ICU) and discussed management with the admitting team. I admitted this patient to a continuous cardiac monitored bed. Vincenzo Montgomery MD IN CLINIC/BEDSIDE ORDERABLE S Final Result * Ammonia (10/22/2024 2:17 PM CIVIL ENGINEERING ASSISTANT) Ammonia 27 <=50 mcmol/L Blood 10/22/2024 2:17 PM CIVIL ENGINEERING ASSISTANT 10/22/2024 2:22 PM CIVIL ENGINEERING ASSISTANT Vincenzo Montgomery MD LAB BLOOD ORDERABLES Final Result Performing Organization Address [facility] Co de Phone Number JOHAN ACOSTA ([place]) 1 [facility] [employer] [place] [id number] * POCT glucose (10/22/2024 2:01 PM CIVIL ENGINEERING ASSISTANT) Glucose, POC 173 70 - 199 mg/dL Blood 10/22/2024 2:01 PM CIVIL ENGINEERING ASSISTANT 10/22/2024 2:01 PM CIVIL ENGINEERING ASSISTANT Result [facility] Vincenzo Montgomery MD LAB POCT ORDERABLES - DEVIC E Final Result Performing Organization Address [facility] Co de Phone Number JOHAN ACOSTA ([place]) 1 [facility] [place] [employer] [place] [address] * (ABNORMAL) Troponin T high-sensitivity 2-hour (10/22/2024 1:58 PM CIVIL ENGINEERING ASSISTANT) Trop T hs 116(H) <=14 ng/L Comment: Interpretive Data For further hscTnT resources including the diagnostic algorithm and an aid in interpretation, copy and paste this link: https://nrl.testcatalog.org/show/hsTrop Current Interpretive Data last revised 2020. Trop T hs pct delta 12 % [facility] ([place]) Trop T hs interp Equivocal CER N[facility] ([place]) Blood 10/22/2024 1:58 PM CIVIL ENGINEERING ASSISTANT 10/22/2024 2:05 PM CIVIL ENGINEERING ASSISTANT Vincenzo Montgomery MD LAB BLOOD ORDERABLES Final Result [facility] ([place]) 1 [facility] [place] [address] * (ABNORMAL) Blood gas, arterial (10/22/2024 1:49 PM CIVIL ENGINEERING ASSISTANT) pH, Art 7.30(L) 7.35 - 7.45 PCO2, Arterial 54(H) 35 - 45 mmHg [facility] ([place]) PO2, Arterial 98 83 - 108 mmHg [facility] ([place]) HCO3 Art (Calculated) 26 20 - 30 mmol/L [facility] ([place]) BE, art 0 mmol/L [facility] ([place]) Comment: Interpretive Data No Reference Range Established Current Interpretive Data was last revised on 2017 O2 Sat Art (Measured) 98(H) 90 - 95 % [facility] ([place]) Blood 10/22/2024 1:49 PM CIVIL ENGINEERING ASSISTANT 10/22/2024 1:52 PM CIVIL ENGINEERING ASSISTANT Vincenzo Montgomery MD LAB BLOOD ORDERABLES Final Result Performing Organization Address [facility]/ZIP Co de Phone Number [facility]AN [facility] ([place]) 1 [facility] [place] [address] * Sepsis Lactate w/ Reflex (10/22/2024 12:32 PM CIVIL ENGINEERING ASSISTANT) Sepsis Lactate 1.1 0.7 - 2.0 mmol/L Blood 10/22/2024 12:3 2 PM CIVIL ENGINEERING ASSISTANT 10/22/2024 12:35 PM CIVIL ENGINEERING ASSISTANT Vincenzo Mongtomery MD LAB BLOOD ORDERABLES Final Result [facility] ([place]) 1 [facility] [place] [address] * ABO/Rh (10/22/2024 12:32 PM CIVIL ENGINEERING ASSISTANT) ABO/Rh O Positive Blood 10/22/2024 12:3 2 PM CIVIL ENGINEERING ASSISTANT 10/22/2024 12:35 PM CIVIL ENGINEERING ASSISTANT Narrative NATANAELWON ACOSTA ([place]) - 10/22/2024 1:02 PM CIVIL ENGINEERING ASSISTANT Has the patient had Daratumumab or Isatuximab in the past 6 months?->Unknown Vincenzo Montgomery MD LAB BLOOD BANK TEST ORDERAB LES Final Result JOHAN ACOSTA ([place]) 1 [facility] [place] [address] * Antibody screen (10/22/2024 12:32 PM CIVIL ENGINEERING ASSISTANT) Karon, indirect, Gel Interpretation Negative ABSC Blood 10/22/2024 12:3 2 PM CIVIL ENGINEERING ASSISTANT 10/22/2024 12:35 PM CIVIL ENGINEERING ASSISTANT Narrative JOHAN ACOSTA ([place]) - 10/22/2024 1:12 PM CIVIL ENGINEERING ASSISTANT Has the patient had Daratumumab or Isatuximab in the past 6 months?->Unknown Vincenzo Montgomery MD LAB BLOOD BANK TEST ORDERAB LES Final Result JOHAN ACOSTA ([place]) 1 [facility] [place] [address] * Blood culture Blood (10/22/2024 11:24 AM CIVIL ENGINEERING ASSISTANT) Report Final Report: No growth Comment:Testing performed by : [facility], [address] [facility], [place]., [address] Blood 10/22/2024 11:2 4 AM CIVIL ENGINEERING ASSISTANT 10/22/2024 2:05 PM CIVIL ENGINEERING ASSISTANT Narrative JOHAN KARLA ([place]) - 10/26/2024 4:00 PM CIVIL ENGINEERING ASSISTANT Collection->Peripheral 1. Blood cultures are incubated for 4 days on a continuously monitored blood culture system. The first report of a negative culture is issued within 24 hours of receipt of the specimen in the laboratory. 2. Positive culture results are reported as soon as they are detected. 3. The most important factor for detection of microbes in the setting of bloodstream infection is the volume of blood submitted for culture. Failure to collect an optimal blood volume can result in false negative blood cultures. 4. For pediatric patients, the recommended blood volume to collect follows a weight based strategy. See the electronic test catalog for collection instructions. 5. For positive blood cultures, a rapid molecular test may be performed for organism identification using the gui ePlex blood culture identification panel for gram positive (BCID-GP) and gram negative (BCID-GN) organisms. This nucleic acid amplification test detects microbial DNA in positive blood culture broth. This assay has been cleared by the [place] Food and Drug Administration and its performance characteristics have been verified by the [facility]biology Laboratory. For questions about this culture, contact the Microbiology Laboratory at [phone]. Interpretive data was last revised on 24. us Vincenzo Montgomery MD LAB MICROBIOLOGY - GENERAL ORDERABLES Final Result JOHAN ACOSTA ([facility] 1 [facility] Department [place] [address] * (ABNORMAL) Troponin T high-sensitivity series (baseline, 2hr, 4hr, 6hr) (10/22/2024 11:20 AM CIVIL ENGINEERING ASSISTANT) Trop T hs 104(H) <=14 ng/L Comment: Interpretive Data For further hscTnT resources including the diagnostic algorithm and an aid in interpretation, copy and paste this link: https://nrl.testcatalog.org/show/hsTrop Current Interpretive Data last revised 2020. Blood 10/22/2024 11:2 0 AM CIVIL ENGINEERING ASSISTANT 10/22/2024 11:29 AM CIVIL ENGINEERING ASSISTANT us Vincenzo Montgomery MD LAB BLOOD ORDERABLES Final Result JOHAN PaganFAN) 1 [facility] Department [place] [address] * (ABNORMAL) eGFR (10/22/2024 11:20 AM CIVIL ENGINEERING ASSISTANT) eGFR 8(L) >=60 mL/min/1. 73 m2 Comment: Interpretive Data Reference Interval Normal >/= 90 mL/min/1.73m2 Mildly decreased* 60 - 89 mL/min/1.73m2 Mildly to moderately decreased 45 - 59 mL/min/1.73m2 Moderately to severely decreased 30 - 44 mL/min/1.73m2 Severely decreased 15 - 29 mL/min/1.73m2 Kidney Failure < 15 mL/min/1.73m2 *Relative to young adult level Estimated glomerular filtration rate is determined by the 2020 CKD-EPI equation recommended by the National Kidney Foundation (A Unifying Approach to GFR Estimation: Recommendations of the NKF-ASK Task Force on Reassessing the Inclusion of Race in Diagnosing Kidney Disease, JASN 2020). The CKD-EPI equation should not be used for patients with unstable renal function and has not been validated in children and those over 70. Current interpretive data was last reviewed 2021. Blood 10/22/2024 11:2 0 AM CIVIL ENGINEERING ASSISTANT 10/22/2024 11:29 AM CIVIL ENGINEERING ASSISTANT us Vincenzo Montgomery MD LAB BLOOD ORDERABLES Final Result JOHAN [facility] [place]) 1 [facility] [place] [address] * (ABNORMAL) Pro B-type natriuretic peptide (10/22/2024 11:20 AM CIVIL ENGINEERING ASSISTANT) NT-proBNP 3,884(H) <=300 pg/mL Comment: Interpretive Comments: A. Dyspnea in Acute Care Setting All Ages: < 300 pg/ml, acute heart failure unlikely. < 50 yrs: 300 - 450 pg/ml, further investigation warranted. > 450 pg/ml, acute heart failure likely. 50 - 74 yrs: 300 - 900 pg/ml, further investigation warranted. > 900 pg/ml, acute heart failure likely . > or = 75 yrs: 450 - 1800 pg/ml, further investigation warranted. > 1800 pg/ml, acute heart failure likely. B. Non-acute Setting < 75 yrs < 125 pg/ml, rules out heart failure. > or = 125 pg/ml, further investigation warranted. > or = 75 yrs < 450 pg/ml, rules out heart failure. > or = 450 pg/ml, further investigation warranted. - Knowledge of each individual patient's NT-proBNP range may be more useful than using similar cut-points for every patient. Please note that marked elevations in NT-proBNP levels may be observed in state other than Left Ventricular Congestive Failure, including: acute coronary syndromes, right heart strain/failure (including pulmonary embolism and cor pulmonale), critical illness, renal failure, as well as advanced age. - References: 1. Perry LONG et.al. Eur Heart J. 2006:27:330-337. 2. Camryn RW, Tracie RAHMAN. J. AM Mark Cardiol: Cardiovasc Imag. 2009;2: 216- 225. Interpretive Data Last Revised Date: 2018. Blood 10/22/2024 11:2 0 AM CIVIL ENGINEERING ASSISTANT 10/22/2024 11:29 AM CIVIL ENGINEERING ASSISTANT Vincenzo Montgomery MD LAB BLOOD ORDERABLES Final Result [facility] [place] 1 [facility] Department [place] [address] * (ABNORMAL) Blood culture Blood (10/22/2024 11:20 AM CIVIL ENGINEERING ASSISTANT) Direct Specimen Exam Molecular Analysis: Streptococcus species detected by gui ePlex BCID-GP panel. This test does not exclude the possibility of a mixed bacterial infection. Staphylococcus epidermidis (methicillin-resis tant) detected by gui ePlex BCID-GP panel. Single positive culture may represent contamination. This test does not exclude the possibility of a mixed bacterial infection. Notification of: Streptococcus species and Staphylococcus epidermidis (methicillin-resis tant) called to and read back by: [phone] Lily Flor MT on 10/23/2024 10:37:57 by: Rohan Weber MT Test result called to and read back by Rowan Salvador (ICU) on 10/23/2024 11:07:52 by Amber Ohara Comment:Testing performed by : [facility], [address] [place]., [address] Direct Specimen Exam Stain: Gram Positive Cocci Time to culture positivity (aerobic media): 14.5 hours Notification of: Gram Positive Cocci called to and read back by: Israel Velazquez MLT [phone]) on 10/23/2024 05:12:59 by: Heri Brunson MLS Test result called to and read back by susana dean on 10/23/2024 05:39:13 by israel ACOSTA ([place]) Comment:Testing performed by : [facility], [address] [place] [address]., [id number] Report Final Report: Staphylococcus hominis Single blood culture positive for this microorganism. Isolate is a possible contaminant. If a similar isolate is recovered from a second blood culture collected within 3 days of this culture, both will be evaluated and, if determined to be the same species, antimicrobial susceptibility testing will be performed. Streptococcus mitis group Single blood culture positive for this microorganism. Isolate is a possible contaminant. If a similar isolate is recovered from a second blood culture collected within 3 days of this culture, both will be evaluated and, if determined to be the same species, antimicrobial susceptibility testing will be performed. Staphylococcus epidermidis Single blood culture positive for this microorganism. Isolate is a possible contaminant. If a similar isolate is recovered from a second blood culture collected within 3 days of this culture, both will be evaluated and, if determined to be the same species, antimicrobial susceptibility testing will be performed.(.) JOHAN ACOSTA ([place]) Comment:Testing performed by : [facility], [address] [place]., [address] Organism STAPHYLOCOCCUS HOMINIS JOHAN ACOSTA ([place]) Organism STREPTOCOCCUS MITIS GROUP JOHAN ACOSTA ([place]) Organism STAPHYLOCOCCUS EPIDERMIDIS JOHAN ACOSTA ([place]) Blood 10/22/2024 11:2 0 AM CIVIL ENGINEERING ASSISTANT 10/22/2024 2:05 PM CIVIL ENGINEERING ASSISTANT Narrative JOHAN ACOSTA ([place]) - 10/28/2024 2:02 PM CIVIL ENGINEERING ASSISTANT Collection->Peripheral 1. Blood cultures are incubated for 4 days on a continuously monitored blood culture system. The first report of a negative culture is issued within 24 hours of receipt of the specimen in the laboratory. 2. Positive culture results are reported as soon as they are detected. 3. The most important factor for detection of microbes in the setting of bloodstream infection is the volume of blood submitted for culture. Failure to collect an optimal blood volume can result in false negative blood cultures. 4. For pediatric patients, the recommended blood volume to collect follows a weight based strategy. See the electronic test catalog for collection instructions. 5. For positive blood cultures, a rapid molecular test may be performed for organism identification using the gui ePlex blood culture identification panel for gram positive (BCID-GP) and gram negative (BCID-GN) organisms. This nucleic acid amplification test detects microbial DNA in positive blood culture broth. This assay has been cleared by the [place] Food and Drug Administration and its performance characteristics have been verified by the [facility] Laboratory. For questions about this culture, contact the Microbiology Laboratory at [phone]. Interpretive data was last revised on 24. Vincenzo Montgomery MD LAB MICROBIOLOGY - GENERAL ORDERABLES Final Result Performing Organization Address City/[facility]/ZIP Co de Phone Number JOHAN ACOSTA ([place]) 1 [facility] [employer] [facility] [place] [address] * (ABNORMAL) CRP (acute phase) (10/22/2024 11:20 AM CIVIL ENGINEERING ASSISTANT) CRP 81.9(H) <=10.0 mg/L Blood 10/22/2024 11:2 0 AM CIVIL ENGINEERING ASSISTANT 10/22/2024 11:29 AM CIVIL ENGINEERING ASSISTANT Vincenzo Montgomery MD LAB BLOOD ORDERABLES Final Result JOHAN ACOSTA ([place]) 1 [facility] Department [place] [address] * (ABNORMAL) Comprehensive metabolic panel (10/22/2024 11:20 AM CIVIL ENGINEERING ASSISTANT) Sodium 136 135 - 145 mmol/L Potassium, pl 4.4 3.3 - 4.9 mmol/L [facility] ([place]) Chloride 99 97 - 110 mmol/L [facility] ([place]) CO2 25 22 - 32 mmol/L [facility] ([place]) Anion gap 12 2 - 15 mmol/L [facility] ([place]) BUN 30(H) 6 - 25 mg/dL [facility] ([place]) Creatinine 5.51(H) 0.60 - 1.10 mg/dL [facility] ([place]) Glucose 213(H) 70 - 199 mg/dL [facility] ([place]) Comment: Interpretive Data Fasting glucose >/= 126 mg/dl is diagnostic for diabetes. Fasting is defined as no caloric intake for at least 8 hours. Fasting glucose between 100 mg/dl to 125 mg/dl is diagnostic of prediabetes. In a patient with classic symptoms of hyperglycemia or hyperglycemic crisis, a random glucose >/= 200 mg/dl is diagnostic for diabetes. In the absence of unequivocal hyperglycemia, results should be confirmed by repeat testing. The classification and Diagnosis of Diabetes Diabetes Care 2021; 46: S19-S40. Current interpretive data was last revised 2022. Calcium 8.4(L) 8.5 - 10.3 mg/dL [facility] ([place]) Bilirubin, total 0.2 0.1 - 1.2 mg/dL [facility] ([place]) Protein, pl 5.9(L) 6.5 - 8.5 g/dL [facility] ([place]) Albumin 3.5 3.5 - 5.0 g/dL [facility] ([place]) Alk phos 71 40 - 130 Units/L [facility] ([place]) ALT 30 7 - 45 Units/L [facility] ([place]) AST 32 10 - 45 Units/L [facility] ([place]) Blood 10/22/2024 11:2 0 AM CIVIL ENGINEERING ASSISTANT 10/22/2024 11:29 AM CIVIL ENGINEERING ASSISTANT us Vincenzo Montgomery MD LAB BLOOD ORDERABLES Final Result [facility] ([place]) 1 [facility] Department [place] [address] * ECG 12 lead (10/22/2024 11:16 AM CIVIL ENGINEERING ASSISTANT) 10/22/2024 11:1 6 AM CIVIL ENGINEERING ASSISTANT Narrative [facility] - 10/23/2024 6:27 AM CIVIL ENGINEERING ASSISTANT Vent Rate: 93 bpm RR Interval: 641 msec MA Interval: 199 msec QRS Duration: 102 msec QT Interval: 399 msec QTC Interval: 450 msec P-R-T [place]: 79 - 62 - 83 degrees IMPRESSION: SINUS RHYTHM LOW QRS VOLTAGE IN PRECORDIAL LEADS [QRS DEFLECTION < 1.0 mV IN CHEST LEADS] BORDERLINE ECG NO CHANGE FROM PREVIOUS TRACING NOTED Electronically Signed By: Jeremy Calix MD us Vincenzo Montgomery MD ECG ORDERABLES Final Resul t [facility] * XR Chest 1 Vw Portable (10/22/2024 11:08 AM CIVIL ENGINEERING ASSISTANT) Anatomical Region Laterality Modality Body, Chest N/A Computed Radiogr aphy 10/22/2024 11:3 3 AM CIVIL ENGINEERING ASSISTANT Narrative 10/22/2024 11:37 AM CIVIL ENGINEERING ASSISTANT EXAM DESCRIPTION: XR CHEST 1 VIEW REASON FOR STUDY: Shortness of breath Fever and chills over the last few days. Patient arrives unresponsive but breathing and has a pulse. Respiratory at bedside and patient placed on bipap. Best possible images due to body habitus. TECHNIQUE: Frontal radiographic view(s) of the chest. COMPARISON: Chest radiograph dated 08/20/2024, 07/26/2024, 09/09/2024 and 12/11/2021. Chest CT dated 10/06/2024. FINDINGS: The patient is rotated and tilted [id number]. The examination is severely limited by patient's body habitus and portable technique. Right chest wall central vascular catheter. There is cardiomegaly. Left hemithorax volume loss. Apparent hazy opacities throughout the chest on both sides could be pulmonary edema, multifocal pneumonia or artifact due to patient's body habitus. Request clinical correlation. IMPRESSION: Severely limited examination. Apparent bilateral hazy opacities could be an artifact with a combination of patient's body habitus and portable technique versus pulmonary edema/multifocal pneumonia. No substantial change in appearance when compared to the previous chest radiograph dated 09/09/2024. THIS IS AN ELECTRONICALLY VERIFIED FINAL REPORT 10/22/2024 11:37 AM - Electronically signed by Harjinder Coello D.O. AP: AP Report ID: [id number] Reading Location: [id number] Procedure Note Mode Harjinder, DO - 10/22/2024 EXAM DESCRIPTION: XR CHEST 1 VIEW REASON FOR STUDY: Shortness of breath Fever and chills over the last few days. Patient arrives unresponsive but breathing and has a pulse. Respiratory at bedside and patient placed onbipap. Best possible images due to body habitus. TECHNIQUE: Frontal radiographic view(s) of the chest. COMPARISON: Chest radiograph dated 08/20/2024, 07/26/2024, 09/09/2024 and 12/11/2021. Chest CT dated 10/06/2024. FINDINGS: The patient is rotated and tilted [id number]. The examination isseverely limited by patient's body habitus and portable technique. Right chestwall central vascular catheter. There is cardiomegaly. Left hemithorax volume loss. Apparent hazy opacities throughout the chest on both sides could be pulmonary edema, multifocal pneumonia or artifact due to patient's body habitus. Request clinical correlation. IMPRESSION: Severely limited examination. Apparent bilateral hazy opacities could almendarez artifact with a combination of patient's body habitus and portabletechnique versus pulmonary edema/multifocal pneumonia. No substantial change in appearance when compared to the previous chest radiograph dated111/10/2023. THIS IS AN ELECTRONICALLY VERIFIED FINAL REPORT 10/22/2024 11:37 AM - Electronically signed by Harjinder Coello D.O. AP: AP Report ID: [id number] Reading Location: [id number] us Vincenzo Montgomery MD IMG XR PROCEDURES Final Res ult * (ABNORMAL) Influenza A/B, RSV, and COVID-19 PCR Nasopharyngeal (10/22/2024 11:03 AM CIVIL ENGINEERING ASSISTANT) Pathologist [facility] COVID-19 RNA Negative Negative Influenza A RNA Positive(A) Negative CE [facility] ([place]) Influenza B RNA Negative Negative [facility] ([place]) RSV RNA Negative Negative [facility] ([place]) Comment: Interpretive data: Testing performed by [facility]. This test is performed using the [employer] Xpert Xpress CoV-2/Flu/RSV plus assay. This is a multiplex, real- time reverse transcriptase PCR assay intended for the qualitative detection of nucleic acid from SARS-CoV-2, influenza A, influenza B, and respiratory syncytial virus. This assay has been cleared by the [place] Food and Drug administration. The performance characteristics have been verified by the [facility]. Results must be considered in the clinical context, and a negative result does not rule out infection. Interpretive Data last revised 2023 Nasopharyngeal 10/22/2024 11 :03 AM CIVIL ENGINEERING ASSISTANT 10/22/2024 11:09 AM CIVIL ENGINEERING ASSISTANT Narrative [facility] - 10/22/2024 11:48 AM CIVIL ENGINEERING ASSISTANT Is the Patient experiencing symptoms consistent with COVID?->Yes Vincenzo Montgomery MD LAB MICROBIOLOGY - GENERAL ORDERABLES Final Result [facility] 1 [facility] Department [place] [address] * (ABNORMAL) Differential, auto (10/22/2024 11:03 AM CIVIL ENGINEERING ASSISTANT) Neutrophil abs 3.9 1.5 - 6.5 K/cumm Imm gran abs 0.0 0.0 - 0.1 K/cumm [facility] ([place]) Lymphocyte abs 0.4(L) 0.8 - 3.3 K/cumm [facility] ([place]) Monocyte abs 0.3 0.2 - 0.8 K/cumm [facility] ([place]) Eosinophil abs 0.0 0.0 - 0.5 K/cumm [facility] ([place]) Basophil abs 0.0 0.0 - 0.1 K/cumm [facility] ([place]) Neutrophil pct 84.3 % [facility] ([place]) Comment: Consistent with previous result Interpretive Data Percent cell count reference ranges are not reported, since discordance with absolute values may lead to misinterpretation of CBC data. Current Interpretive Data was last revised on 2017. Imm gran pct 0.6 % [facility] ([place]) Comment: Interpretive Data Percent cell count reference ranges are not reported, since discordance with absolute values may lead to misinterpretation of CBC data. Current Interpretive Data was last revised on 2017. Lymphocyte pct 8.4 % [facility] ([place]) Comment: Interpretive Data Percent cell count reference ranges are not reported, since discordance with absolute values may lead to misinterpretation of CBC data. Current Interpretive Data was last revised on 2017. Monocyte pct 6.7 % [facility] ([place]) Comment: Interpretive Data Percent cell count reference ranges are not reported, since discordance with absolute values may lead to misinterpretation of CBC data. Current Interpretive Data was last revised on 2017. Eosinophil pct 0.0 % [facility] ([place]) Comment: Interpretive Data Percent cell count reference ranges are not reported, since discordance with absolute values may lead to misinterpretation of CBC data. Current Interpretive Data was last revised on 2017. Basophil pct 0.0 % [facility] ([place]) Comment: Interpretive Data Percent cell count reference ranges are not reported, since discordance with absolute values may lead to misinterpretation of CBC data. Current Interpretive Data was last revised on 2017. Blood 10/22/2024 11:0 3 AM CIVIL ENGINEERING ASSISTANT 10/22/2024 11:09 AM CIVIL ENGINEERING ASSISTANT us Vincenzo Montgomery MD LAB BLOOD ORDERABLES Final Result [facility] ([place]) 1 [facility] Department [place] [address] * (ABNORMAL) CBC with auto differential (10/22/2024 11:03 AM CIVIL ENGINEERING ASSISTANT) Pathologist [facility] WBC 4.6 3.8 - 9.9 K/cumm Hgb 8.1(L) 11.9 - 15.5 g/dL [facility] ([place]) Hct 26.2(L) 35.6 - 45.5 % [facility] ([place]) Plt 148(L) 150 - 400 K/cumm [facility] ([place]) MPV 11.2 9.1 - 12.3 fL [facility] ([place]) RBC 2.69(L) 3.90 - 5.20 M/cumm [facility] ([place]) MCV 97.4(H) 81.3 - 96.4 fL [facility] ([place]) MCH 30.1 27.1 - 33.3 pg [facility] ([place]) MCHC 30.9(L) 32.3 - 35.7 g/dL [facility] ([place]) RDW CV 16.3(H) 11.1 - 14.9 % [facility] ([place]) RDW SD 58.6(H) 35.7 - 48.1 fL [facility] ([place]) NRBC abs 0.00 0.00 - 0.01 K/cumm [facility] ([place]) Blood 10/22/2024 11:0 3 AM CIVIL ENGINEERING ASSISTANT 10/22/2024 11:09 AM CIVIL ENGINEERING ASSISTANT us Vincenzo Montgomery MD LAB BLOOD ORDERABLES Final Result [facility] ([place]) 1 [facility] [employer] [place] [address] * Sepsis Lactate w/ Reflex (10/22/2024 10:55 AM CIVIL ENGINEERING ASSISTANT) Pathologist [facility] Sepsis Lactate 1.2 0.7 - 2.0 mmol/L Blood 10/22/2024 10:5 5 AM CIVIL ENGINEERING ASSISTANT 10/22/2024 10:57 AM CIVIL ENGINEERING ASSISTANT Vincenzo Montgomery MD LAB BLOOD ORDERABLES Final Result [facility] ([place]) 1 [facility] [place] [address] * (ABNORMAL) Blood gas, arterial (10/22/2024 10:54 AM CIVIL ENGINEERING ASSISTANT) [facility] pH, Art 7.28(L) 7.35 - 7.45 PCO2, Arterial 58(H) 35 - 45 mmHg [facility] ([place]) PO2, Arterial 68(L) 83 - 108 mmHg [facility] ([place]) HCO3 Art (Calculated) 26 20 - 30 mmol/L [facility] ([place]) BE, art 0 mmol/L [facility] ([place]) Comment: Interpretive Data No Reference Range Established Current Interpretive Data was last revised on 2017 O2 Sat Art (Measured) 92 90 - 95 % [facility] ([place]) Blood 10/22/2024 10:5 4 AM CIVIL ENGINEERING ASSISTANT 10/22/2024 10:57 AM CIVIL ENGINEERING ASSISTANT us Vincenzo Montgomery MD LAB BLOOD ORDERABLES Final Result [facility] 1 [facility] [place] [address] * (ABNORMAL) POCT glucose (10/19/2024 12:19 PM CIVIL ENGINEERING ASSISTANT) [facility] Glucose, POC 202(H) 70 - 199 mg/dL Blood 10/19/2024 12:1 9 PM CIVIL ENGINEERING ASSISTANT 10/19/2024 12:19 PM CIVIL ENGINEERING ASSISTANT us Kimmy Velez MD LAB POCT ORDERABLES - DEVICE F inal Result [facility] 1 [place] [address] * POCT glucose (10/19/2024 8:24 AM CIVIL ENGINEERING ASSISTANT) Glucose, POC 143 70 - 199 mg/dL Blood 10/19/2024 8:24 AM CIVIL ENGINEERING ASSISTANT 10/19/2024 8:24 AM CIVIL ENGINEERING ASSISTANT Kimmy Velez MD LAB POCT ORDERABLES - DEVICE F inal Result Performing Organization Address City/[facility] Co de Phone Number [facility] ([place] 1 [facility] [employer] [place] [address] * (ABNORMAL) eGFR (10/19/2024 2:27 AM CIVIL ENGINEERING ASSISTANT) eGFR 10(L) >=60 mL/min/1. 73 m2 Comment: Interpretive Data Reference Interval Normal >/= 90 mL/min/1.73m2 Mildly decreased* 60 - 89 mL/min/1.73m2 Mildly to moderately decreased 45 - 59 mL/min/1.73m2 Moderately to severely decreased 30 - 44 mL/min/1.73m2 Severely decreased 15 - 29 mL/min/1.73m2 Kidney Failure < 15 mL/min/1.73m2 *Relative to young adult level Estimated glomerular filtration rate is determined by the 2020 CKD-EPI equation recommended by the National Kidney Foundation (A Unifying Approach to GFR Estimation: Recommendations of the NKF-ASK Task Force on Reassessing the Inclusion of Race in Diagnosing Kidney Disease, JASN 2020). The CKD-EPI equation should not be used for patients with unstable renal function and has not been validated in children and those over 70. Current interpretive data was last reviewed 2021. Blood 10/19/2024 2:27 AM CIVIL ENGINEERING ASSISTANT 10/19/2024 2:30 AM CIVIL ENGINEERING ASSISTANT us Sujata Duron MD LAB BLOOD ORDERABLES Fi nal Result [facility] 1 [facility] Department [place] [address] * (ABNORMAL) Differential, auto (10/19/2024 2:27 AM CIVIL ENGINEERING ASSISTANT) Neutrophil abs 3.3 1.5 - 6.5 K/cumm Imm gran abs 0.1 0.0 - 0.1 K/cumm [facility] Lymphocyte abs 0.5(L) 0.8 - 3.3 K/cumm [facility] ([place]) Monocyte abs 0.3 0.2 - 0.8 K/cumm [facility] ([place]) Eosinophil abs 0.0 0.0 - 0.5 K/cumm [facility] ([place]) Basophil abs 0.0 0.0 - 0.1 K/cumm [facility] ([place]) Neutrophil pct 78.4 % [facility] ([place]) Comment: Interpretive Data Percent cell count reference ranges are not reported, since discordance with absolute values may lead to misinterpretation of CBC data. Current Interpretive Data was last revised on 2017. Imm gran pct 1.2 % [facility] ([place]) Comment: Interpretive Data Percent cell count reference ranges are not reported, since discordance with absolute values may lead to misinterpretation of CBC data. Current Interpretive Data was last revised on 2017. Lymphocyte pct 12.5 % [facility] ([place]) Comment: Interpretive Data Percent cell count reference ranges are not reported, since discordance with absolute values may lead to misinterpretation of CBC data. Current Interpretive Data was last revised on 2017. Monocyte pct 7.9 % [facility] ([place]) Comment: Interpretive Data Percent cell count reference ranges are not reported, since discordance with absolute values may lead to misinterpretation of CBC data. Current Interpretive Data was last revised on 2017. Eosinophil pct 0.0 % [facility] ([place]) Comment: Interpretive Data Percent cell count reference ranges are not reported, since discordance with absolute values may lead to misinterpretation of CBC data. Current Interpretive Data was last revised on 2017. Basophil pct 0.0 % [facility] ([place]) Comment: Interpretive Data Percent cell count reference ranges are not reported, since discordance with absolute values may lead to misinterpretation of CBC data. Current Interpretive Data was last revised on 2017. Blood 10/19/2024 2:27 AM CIVIL ENGINEERING ASSISTANT 10/19/2024 2:30 AM CIVIL ENGINEERING ASSISTANT us Sujata Duron MD LAB BLOOD ORDERABLES Fi nal Result [facility] ([place]) 1 [facility] Department [place] [address] * (ABNORMAL) CBC with auto differential (10/19/2024 2:27 AM CIVIL ENGINEERING ASSISTANT) Pathologist [facility] WBC 4.2 3.8 - 9.9 K/cumm Hgb 7.5(L) 11.9 - 15.5 g/dL [facility] ([place]) Hct 24.6(L) 35.6 - 45.5 % [facility] ([place]) Plt 127(L) 150 - 400 K/cumm [facility] ([place]) MPV 9.4 9.1 - 12.3 fL [facility] ([place]) RBC 2.55(L) 3.90 - 5.20 M/cumm [facility] ([place]) MCV 96.5(H) 81.3 - 96.4 fL [facility] ([place]) MCH 29.4 27.1 - 33.3 pg [facility] ([place]) MCHC 30.5(L) 32.3 - 35.7 g/dL [facility] ([place]) RDW CV 15.6(H) 11.1 - 14.9 % [facility] ([place]) RDW SD 54.8(H) 35.7 - 48.1 fL [facility] ([place]) NRBC abs 0.00 0.00 - 0.01 K/cumm [facility] ([place]) Blood 10/19/2024 2:27 AM CIVIL ENGINEERING ASSISTANT 10/19/2024 2:30 AM CIVIL ENGINEERING ASSISTANT us Sujata Duron MD LAB BLOOD ORDERABLES Fi nal Result [facility] ([place]) 1 [facility] Department [place] [address] * Magnesium (10/19/2024 2:27 AM CIVIL ENGINEERING ASSISTANT) [facility] Magnesium 1.6 1.4 - 2.5 mg/dL Blood 10/19/2024 2:27 AM CIVIL ENGINEERING ASSISTANT 10/19/2024 2:30 AM CIVIL ENGINEERING ASSISTANT us Sujata Duron MD LAB BLOOD ORDERABLES Fi nal Result [facility] ([place]) 1 [facility] Department [place] [address] * (ABNORMAL) Comprehensive metabolic panel (10/19/2024 2:27 AM CIVIL ENGINEERING ASSISTANT) Sodium 136 135 - 145 mmol/L Potassium, pl 3.9 3.3 - 4.9 mmol/L [facility] ([place]) Chloride 98 97 - 110 mmol/L [facility] ([place]) CO2 26 22 - 32 mmol/L [facility] ([place]) Anion gap 13 2 - 15 mmol/L [facility] ([place]) BUN 40(H) 6 - 25 mg/dL [facility] ([place]) Creatinine 4.46(H) 0.60 - 1.10 mg/dL [facility] ([place]) Glucose 179 70 - 199 mg/dL [facility] ([place]) Comment: Interpretive Data Fasting glucose >/= 126 mg/dl is diagnostic for diabetes. Fasting is defined as no caloric intake for at least 8 hours. Fasting glucose between 100 mg/dl to 125 mg/dl is diagnostic of prediabetes. In a patient with classic symptoms of hyperglycemia or hyperglycemic crisis, a random glucose >/= 200 mg/dl is diagnostic for diabetes. In the absence of unequivocal hyperglycemia, results should be confirmed by repeat testing. The classification and Diagnosis of Diabetes Diabetes Care 2021; 46: S19-S40. Current interpretive data was last revised 2022. Calcium 8.5 8.5 - 10.3 mg/dL [facility] ([place]) Bilirubin, total 0.3 0.1 - 1.2 mg/dL [facility] ([place]) Protein, pl 5.8(L) 6.5 - 8.5 g/dL [facility] ([place]) Albumin 3.3(L) 3.5 - 5.0 g/dL [facility] ([place]) Alk phos 85 40 - 130 Units/L [facility] ([place]) ALT 11 7 - 45 Units/L [facility] ([place]) AST 9(L) 10 - 45 Units/L [facility] ([place]) Blood 10/19/2024 2:27 AM CIVIL ENGINEERING ASSISTANT 10/19/2024 2:30 AM CIVIL ENGINEERING ASSISTANT Sujata Duron MD LAB BLOOD ORDERABLES Fi nal Result [facility] ([place] 1 [facility] [place] [address] * POCT glucose (10/19/2024 2:17 AM CIVIL ENGINEERING ASSISTANT) Glucose, POC 189 70 - 199 mg/dL Blood 10/19/2024 2:17 AM CIVIL ENGINEERING ASSISTANT 10/19/2024 2:17 AM CIVIL ENGINEERING ASSISTANT us Kimmy Velez MD LAB POCT ORDERABLES - DEVICE F inal Result Performing Organization Address [facility] Co de Phone Number [facility] 1 [facility] [place] [address] * POCT glucose (10/18/2024 8:18 PM CIVIL ENGINEERING ASSISTANT) Glucose, POC 165 70 - 199 mg/dL Blood 10/18/2024 8:18 PM CIVIL ENGINEERING ASSISTANT 10/18/2024 8:18 PM CIVIL ENGINEERING ASSISTANT Kimmy Velez MD LAB POCT ORDERABLES - DEVICE F inal Result Performing Organization Address City/[facility]/ZIP Co de Phone Number [facility] ([place] 1 [facility] [place] [address] * POCT glucose (10/18/2024 5:10 PM CIVIL ENGINEERING ASSISTANT) Glucose, POC 178 70 - 199 mg/dL Blood 10/18/2024 5:10 PM CIVIL ENGINEERING ASSISTANT 10/18/2024 5:10 PM CIVIL ENGINEERING ASSISTANT Kimmy Velez MD LAB POCT ORDERABLES - DEVICE F inal Result [facility] [place]) 1 [facility] [place] [address] * (ABNORMAL) POCT glucose (10/18/2024 12:00 PM CIVIL ENGINEERING ASSISTANT) Glucose, POC 201(H) 70 - 199 mg/dL Blood 10/18/2024 12:0 0 PM CIVIL ENGINEERING ASSISTANT 10/18/2024 12:00 PM CIVIL ENGINEERING ASSISTANT Kimmy Velez MD LAB POCT ORDERABLES - DEVICE F inal Result [facility] [place]) 1 [facility] [place] [address] * POCT glucose (10/18/2024 9:10 AM CIVIL ENGINEERING ASSISTANT) [facility] Glucose, POC 161 70 - 199 mg/dL Blood 10/18/2024 9:10 AM CIVIL ENGINEERING ASSISTANT 10/18/2024 9:10 AM CIVIL ENGINEERING ASSISTANT Kimmy Velez MD LAB POCT ORDERABLES - DEVICE F inal Result Performing Organization Address City/[facility]/ZIP Co de Phone Number [facility] [place]) 1 [facility] [place] [address] * (ABNORMAL) eGFR (10/18/2024 2:21 AM CIVIL ENGINEERING ASSISTANT) [facility] Signature eGFR 14(L) >=60 mL/min/1. 73 m2 Comment: Interpretive Data Reference Interval Normal >/= 90 mL/min/1.73m2 Mildly decreased* 60 - 89 mL/min/1.73m2 Mildly to moderately decreased 45 - 59 mL/min/1.73m2 Moderately to severely decreased 30 - 44 mL/min/1.73m2 Severely decreased 15 - 29 mL/min/1.73m2 Kidney Failure < 15 mL/min/1.73m2 *Relative to young adult level Estimated glomerular filtration rate is determined by the 2020 CKD-EPI equation recommended by the National Kidney Foundation (A Unifying Approach to GFR Estimation: Recommendations of the NKF-ASK Task Force on Reassessing the Inclusion of Race in Diagnosing Kidney Disease, JASN 2020). The CKD-EPI equation should not be used for patients with unstable renal function and has not been validated in children and those over 70. Current interpretive data was last reviewed 2021. Blood 10/18/2024 2:21 AM CIVIL ENGINEERING ASSISTANT 10/18/2024 3:04 AM CIVIL ENGINEERING ASSISTANT us Sujata Duron MD LAB BLOOD ORDERABLES nal Result [facility] ([place] 1 [facility] Department [place] [address] * Differential, auto (10/18/2024 2:21 AM CIVIL ENGINEERING ASSISTANT) Neutrophil abs 4.1 1.5 - 6.5 K/cumm Imm gran abs 0.0 0.0 - 0.1 K/cumm [facility] ([place]) Lymphocyte abs 0.8 0.8 - 3.3 K/cumm [facility] ([place]) Monocyte abs 0.4 0.2 - 0.8 K/cumm [facility] ([place]) Eosinophil abs 0.0 0.0 - 0.5 K/cumm [facility] ([place]) Basophil abs 0.0 0.0 - 0.1 K/cumm [facility] ([place]) Neutrophil pct 76.5 % [facility] ([place]) Comment: Interpretive Data Percent cell count reference ranges are not reported, since discordance with absolute values may lead to misinterpretation of CBC data. Current Interpretive Data was last revised on 2017. Imm gran pct 0.8 % [facility] ([place]) Comment: Interpretive Data Percent cell count reference ranges are not reported, since discordance with absolute values may lead to misinterpretation of CBC data. Current Interpretive Data was last revised on 2017. Lymphocyte pct 14.4 % [facility] ([place]) Comment: Interpretive Data Percent cell count reference ranges are not reported, since discordance with absolute values may lead to misinterpretation of CBC data. Current Interpretive Data was last revised on 2017. Monocyte pct 8.3 % [facility] ([place]) Comment: Interpretive Data Percent cell count reference ranges are not reported, since discordance with absolute values may lead to misinterpretation of CBC data. Current Interpretive Data was last revised on 2017. Eosinophil pct 0.0 % [facility] ([place]) Comment: Interpretive Data Percent cell count reference ranges are not reported, since discordance with absolute values may lead to misinterpretation of CBC data. Current Interpretive Data was last revised on 2017. Basophil pct 0.0 % [facility] ([place]) Comment: Interpretive Data Percent cell count reference ranges are not reported, since discordance with absolute values may lead to misinterpretation of CBC data. Current Interpretive Data was last revised on 2017. Blood 10/18/2024 2:21 AM CIVIL ENGINEERING ASSISTANT 10/18/2024 3:03 AM CIVIL ENGINEERING ASSISTANT us Sujata Duron MD LAB BLOOD ORDERABLES Fi nal Result [facility] ([place]) 1 [facility] Department [place] [address] * (ABNORMAL) CBC with auto differential (10/18/2024 2:21 AM CIVIL ENGINEERING ASSISTANT) WBC 5.3 3.8 - 9.9 K/cumm Hgb 7.4(L) 11.9 - 15.5 g/dL [facility] ([place]) Hct 24.1(L) 35.6 - 45.5 % [facility] ([place]) Plt 117(L) 150 - 400 K/cumm [facility] ([place]) MPV 9.8 9.1 - 12.3 fL [facility] ([place]) RBC 2.48(L) 3.90 - 5.20 M/cumm [facility] ([place]) MCV 97.2(H) 81.3 - 96.4 fL [facility] ([place]) MCH 29.8 27.1 - 33.3 pg [facility] ([place]) MCHC 30.7(L) 32.3 - 35.7 g/dL [facility] ([place]) RDW CV 15.7(H) 11.1 - 14.9 % [facility] ([place]) RDW SD 55.7(H) 35.7 - 48.1 fL [facility] ([place]) NRBC abs 0.00 0.00 - 0.01 K/cumm [facility] ([place]) Blood 10/18/2024 2:21 AM CIVIL ENGINEERING ASSISTANT 10/18/2024 3:03 AM CIVIL ENGINEERING ASSISTANT Sujata Duron MD LAB BLOOD ORDERABLES Fi nal Result [facility] ([place]) 1 [facility] [place] [address] * Magnesium (10/18/2024 2:21 AM CIVIL ENGINEERING ASSISTANT) Pathologist [facility] Magnesium 1.7 1.4 - 2.5 mg/dL Blood 10/18/2024 2:21 AM CIVIL ENGINEERING ASSISTANT 10/18/2024 3:04 AM CIVIL ENGINEERING ASSISTANT Sujata Duron MD LAB BLOOD ORDERABLES Fi nal Result Performing Organization Address City/[facility] de Phone Number [facility] 1 [facility] [place] [address] * (ABNORMAL) Comprehensive metabolic panel (10/18/2024 2:21 AM CIVIL ENGINEERING ASSISTANT) Sodium 137 135 - 145 mmol/L Potassium, pl 3.9 3.3 - 4.9 mmol/L [facility] ([place]) Chloride 97 97 - 110 mmol/L [facility] ([place]) CO2 27 22 - 32 mmol/L [facility] ([place]) Anion gap 13 2 - 15 mmol/L [facility] ([place]) BUN 35(H) 6 - 25 mg/dL [facility] ([place]) Creatinine 3.44(H) 0.60 - 1.10 mg/dL [facility] ([place]) Glucose 170 70 - 199 mg/dL [facility] ([place]) Comment: Interpretive Data Fasting glucose >/= 126 mg/dl is diagnostic for diabetes. Fasting is defined as no caloric intake for at least 8 hours. Fasting glucose between 100 mg/dl to 125 mg/dl is diagnostic of prediabetes. In a patient with classic symptoms of hyperglycemia or hyperglycemic crisis, a random glucose >/= 200 mg/dl is diagnostic for diabetes. In the absence of unequivocal hyperglycemia, results should be confirmed by repeat testing. The classification and Diagnosis of Diabetes Diabetes Care 2021; 46: S19-S40. Current interpretive data was last revised 2022. Calcium 8.3(L) 8.5 - 10.3 mg/dL [facility] ([place]) Bilirubin, total 0.3 0.1 - 1.2 mg/dL [facility] ([place]) Protein, pl 5.5(L) 6.5 - 8.5 g/dL [facility] ([place]) Albumin 3.5 3.5 - 5.0 g/dL [facility] ([place]) Alk phos 83 40 - 130 Units/L [facility] ([place]) ALT 10 7 - 45 Units/L [facility] ([place]) AST 8(L) 10 - 45 Units/L [facility] ([place]) Blood 10/18/2024 2:21 AM CIVIL ENGINEERING ASSISTANT 10/18/2024 3:04 AM CIVIL ENGINEERING ASSISTANT Sujata Duron MD LAB BLOOD ORDERABLES Fi nal Result Performing Organization Address [facility]/ZIP Co de Phone Number J[facility] 1 [facility] [place] [place] [address] * POCT glucose (10/18/2024 2:20 AM CIVIL ENGINEERING ASSISTANT) [facility] Signature Glucose, POC 184 70 - 199 mg/dL Blood 10/18/2024 2:20 AM CIVIL ENGINEERING ASSISTANT 10/18/2024 2:20 AM CIVIL ENGINEERING ASSISTANT Kimmy Velez MD LAB POCT ORDERABLES - DEVICE F inal Result Performing Organization Address City/[facility]/ZIP Co de Phone Number [facility] 1 [facility] [employer] [place] [address] * POCT glucose (10/17/2024 8:15 PM CIVIL ENGINEERING ASSISTANT) Glucose, POC 177 70 - 199 mg/dL Blood 10/17/2024 8:15 PM CIVIL ENGINEERING ASSISTANT 10/17/2024 8:15 PM CIVIL ENGINEERING ASSISTANT Kimmy Velez MD LAB POCT ORDERABLES - DEVICE F inal Result Performing Organization Address [facility] Co de Phone Number [facility] ([place]) 1 [facility] [place] [address] * POCT glucose (10/17/2024 4:41 PM CIVIL ENGINEERING ASSISTANT) Glucose, POC 196 70 - 199 mg/dL Blood 10/17/2024 4:41 PM CIVIL ENGINEERING ASSISTANT 10/17/2024 4:41 PM CIVIL ENGINEERING ASSISTANT Kimmy Velez MD LAB POCT ORDERABLES - DEVICE F inal Result Performing Organization Address [facility] Co de Phone Number [facility] ([place]) 1 [facility] [place] [address] * POCT glucose (10/17/2024 12:43 PM CIVIL ENGINEERING ASSISTANT) Glucose, POC 140 70 - 199 mg/dL Blood 10/17/2024 12:4 3 PM CIVIL ENGINEERING ASSISTANT 10/17/2024 12:43 PM CIVIL ENGINEERING ASSISTANT Kimmy Velez MD LAB POCT ORDERABLES - DEVICE F inal Result Performing Organization Address [facility] Co de Phone Number [facility] ([place]) 1 [facility] [place] [address] * POCT glucose (10/17/2024 2:13 AM CIVIL ENGINEERING ASSISTANT) Glucose, POC 119 70 - 199 mg/dL Blood 10/17/2024 2:13 AM CIVIL ENGINEERING ASSISTANT 10/17/2024 2:13 AM CIVIL ENGINEERING ASSISTANT us Emilia Damian MD LAB POCT ORDERABLES - DEV ICE Final Result Performing Organization Address City/[facility]/ZIP Co de Phone Number [facility] ([place]) 1 [facility] [employer] [place] [address] * (ABNORMAL) eGFR (10/17/2024 12:13 AM CIVIL ENGINEERING ASSISTANT) eGFR 9(L) >=60 mL/min/1. 73 m2 Comment: Interpretive Data Reference Interval Normal >/= 90 mL/min/1.73m2 Mildly decreased* 60 - 89 mL/min/1.73m2 Mildly to moderately decreased 45 - 59 mL/min/1.73m2 Moderately to severely decreased 30 - 44 mL/min/1.73m2 Severely decreased 15 - 29 mL/min/1.73m2 Kidney Failure < 15 mL/min/1.73m2 *Relative to young adult level Estimated glomerular filtration rate is determined by the 2020 CKD-EPI equation recommended by the National Kidney Foundation (A Unifying Approach to GFR Estimation: Recommendations of the NKF-ASK Task Force on Reassessing the Inclusion of Race in Diagnosing Kidney Disease, JASN 2020). The CKD-EPI equation should not be used for patients with unstable renal function and has not been validated in children and those over 70. Current interpretive data was last reviewed 2021. Blood 10/17/2024 12:1 3 AM CIVIL ENGINEERING ASSISTANT 10/17/2024 12:23 AM CIVIL ENGINEERING ASSISTANT us Sujata Duron MD LAB BLOOD ORDERABLES Fi nal Result JOHAN ACOSTA ([place]) 1 [facility] Department [place] [address] * (ABNORMAL) Differential, auto (10/17/2024 12:13 AM CIVIL ENGINEERING ASSISTANT) Neutrophil abs 6.0 1.5 - 6.5 K/cumm Imm gran abs 0.0 0.0 - 0.1 K/cumm JOHAN KARLA ([place]) Lymphocyte abs 0.7(L) 0.8 - 3.3 K/cumm [facility] ([place]) Monocyte abs 0.5 0.2 - 0.8 K/cumm [facility] ([place]) Eosinophil abs 0.0 0.0 - 0.5 K/cumm [facility] ([place]) Basophil abs 0.0 0.0 - 0.1 K/cumm [facility] ([place]) Neutrophil pct 83.4 % [facility] ([place]) Comment: Interpretive Data Percent cell count reference ranges are not reported, since discordance with absolute values may lead to misinterpretation of CBC data. Current Interpretive Data was last revised on 2017. Imm gran pct 0.6 % [facility] ([place]) Comment: Interpretive Data Percent cell count reference ranges are not reported, since discordance with absolute values may lead to misinterpretation of CBC data. Current Interpretive Data was last revised on 2017. Lymphocyte pct 9.5 % [facility] ([place]) Comment: Interpretive Data Percent cell count reference ranges are not reported, since discordance with absolute values may lead to misinterpretation of CBC data. Current Interpretive Data was last revised on 2017. Monocyte pct 6.5 % [facility] ([place]) Comment: Interpretive Data Percent cell count reference ranges are not reported, since discordance with absolute values may lead to misinterpretation of CBC data. Current Interpretive Data was last revised on 2017. Eosinophil pct 0.0 % [facility] ([place]) Comment: Interpretive Data Percent cell count reference ranges are not reported, since discordance with absolute values may lead to misinterpretation of CBC data. Current Interpretive Data was last revised on 2017. Basophil pct 0.0 % [facility] ([place]) Comment: Interpretive Data Percent cell count reference ranges are not reported, since discordance with absolute values may lead to misinterpretation of CBC data. Current Interpretive Data was last revised on 2017. Blood 10/17/2024 12:1 3 AM CIVIL ENGINEERING ASSISTANT 10/17/2024 12:23 AM CIVIL ENGINEERING ASSISTANT us Lesley rCuz MD LAB BLOOD ORDERABLES Final Result [facility] ([place]) 1 [facility] Department [place] [address] * (ABNORMAL) CBC with auto differential (10/17/2024 12:13 AM CIVIL ENGINEERING ASSISTANT) Pathologist [facility] WBC 7.2 3.8 - 9.9 K/cumm Hgb 7.9(L) 11.9 - 15.5 g/dL [facility] ([place]) Hct 26.6(L) 35.6 - 45.5 % [facility] ([place]) Plt 127(L) 150 - 400 K/cumm [facility] ([place]) MPV 9.8 9.1 - 12.3 fL [facility] ([place]) RBC 2.64(L) 3.90 - 5.20 M/cumm [facility] ([place]) MCV 100.8(H) 81.3 - 96.4 fL [facility] ([place]) MCH 29.9 27.1 - 33.3 pg [facility] ([place]) MCHC 29.7(L) 32.3 - 35.7 g/dL [facility] ([place]) RDW CV 16.0(H) 11.1 - 14.9 % [facility] ([place]) RDW SD 58.3(H) 35.7 - 48.1 fL [facility] ([place]) NRBC abs 0.00 0.00 - 0.01 K/cumm [facility] ([place]) Blood 10/17/2024 12:1 3 AM CIVIL ENGINEERING ASSISTANT 10/17/2024 12:23 AM CIVIL ENGINEERING ASSISTANT us Sujata Duron MD LAB BLOOD ORDERABLES Fi nal Result JOHAN ACOSTA ([place]) 1 [facility] Department [place] [address] * (ABNORMAL) Phosphorus (10/17/2024 12:13 AM CIVIL ENGINEERING ASSISTANT) Pathologist [facility] Phosphorus, pl 7.1(H) 2.3 - 4.5 mg/dL Blood 10/17/2024 12:1 3 AM CIVIL ENGINEERING ASSISTANT 10/17/2024 12:23 AM CIVIL ENGINEERING ASSISTANT Sujata Duron MD LAB BLOOD ORDERABLES Fi nal Result JOHAN ACOSTA (FAN) 1 [place] [address] * Magnesium (10/17/2024 12:13 AM CIVIL ENGINEERING ASSISTANT) Magnesium 1.8 1.4 - 2.5 mg/dL Blood 10/17/2024 12:1 3 AM CIVIL ENGINEERING ASSISTANT 10/17/2024 12:23 AM CIVIL ENGINEERING ASSISTANT Sujata Duron MD LAB BLOOD ORDERABLES Fi nal Result Performing Organization Address [facility] Co de Phone Number JOHAN ACOSTA (FAN) 1 [place] [address] * (ABNORMAL) Comprehensive metabolic panel (10/17/2024 12:13 AM CIVIL ENGINEERING ASSISTANT) Sodium 140 135 - 145 mmol/L Potassium, pl 5.5(H) 3.3 - 4.9 mmol/L [facility] ([place]) Chloride 102 97 - 110 mmol/L [facility] ([place]) CO2 23 22 - 32 mmol/L [facility] ([place]) Anion gap 15 2 - 15 mmol/L [facility] ([facility]) BUN 68(H) 6 - 25 mg/dL [facility] ([place]) Creatinine 5.14(H) 0.60 - 1.10 mg/dL [facility] ([place]) Glucose 112 70 - 199 mg/dL [facility] ([facility]) Comment: Interpretive Data Fasting glucose >/= 126 mg/dl is diagnostic for diabetes. Fasting is defined as no caloric intake for at least 8 hours. Fasting glucose between 100 mg/dl to 125 mg/dl is diagnostic of prediabetes. In a patient with classic symptoms of hyperglycemia or hyperglycemic crisis, a random glucose >/= 200 mg/dl is diagnostic for diabetes. In the absence of unequivocal hyperglycemia, results should be confirmed by repeat testing. The classification and Diagnosis of Diabetes Diabetes Care 202; 46: S19-S40. Current interpretive data was last revised 2022. Calcium 8.7 8.5 - 10.3 mg/dL [facility] ([place]) Bilirubin, total 0.3 0.1 - 1.2 mg/dL [facility] ([place]) Protein, pl 5.7(L) 6.5 - 8.5 g/dL [facility] ([place]) Albumin 3.3(L) 3.5 - 5.0 g/dL [facility] ([place]) Alk phos 70 40 - 130 Units/L [facility] ([place]) ALT 10 7 - 45 Units/L [facility] ([place]) AST 14 10 - 45 Units/L [facility] ([place]) Comment: Hemolysis present. Results may be affected. Slightly Hemolyzed Specimen Blood 10/17/2024 12:1 3 AM CIVIL ENGINEERING ASSISTANT 10/17/2024 12:23 AM CIVIL ENGINEERING ASSISTANT Sujata Duron MD LAB BLOOD ORDERABLES Fi nal Result JOHAN ACOSTA ([place]) 1 [facility] Department [place] [address] * (ABNORMAL) Potassium (10/16/2024 9:06 PM CIVIL ENGINEERING ASSISTANT) Potassium, pl 5.4(H) 3.3 - 4.9 mmol/L Blood 10/16/2024 9:06 PM CIVIL ENGINEERING ASSISTANT 10/16/2024 9:15 PM CIVIL ENGINEERING ASSISTANT Narrative [facility] ([place]) - 10/16/2024 9:37 PM CIVIL ENGINEERING ASSISTANT Provider to discontinue after two normal results. Lesley Cruz MD LAB BLOOD ORDERABLES Final Result JOHAN ACOSTA ([place]) 1 [facility] Department [place] [address] * POCT glucose (10/16/2024 8:49 PM CIVIL ENGINEERING ASSISTANT) Glucose, POC 121 70 - 199 mg/dL Blood 10/16/2024 8:49 PM CIVIL ENGINEERING ASSISTANT 10/16/2024 8:49 PM CIVIL ENGINEERING ASSISTANT Emilia Damian MD LAB POCT ORDERABLES - DEV ICE Final Result JOHAN ACOSTA ([place]) 1 [facility] [place] [address] * (ABNORMAL) Potassium (10/16/2024 5:31 PM CIVIL ENGINEERING ASSISTANT) Potassium, pl 5.2(H) 3.3 - 4.9 mmol/L Blood 10/16/2024 5:31 PM CIVIL ENGINEERING ASSISTANT 10/16/2024 5:33 PM CIVIL ENGINEERING ASSISTANT Narrative JOHAN ACOSTA ([place]) - 10/16/2024 5:49 PM CIVIL ENGINEERING ASSISTANT Provider to discontinue after two normal results. us Lesley Cruz MD LAB BLOOD ORDERABLES Final Result Performing Organization Address City/[facility]/ZIP Co de Phone Number JOHAN ACOSTA ([place]) 1 [place] [address] * POCT glucose (10/16/2024 5:12 PM CIVIL ENGINEERING ASSISTANT) Glucose, POC 179 70 - 199 mg/dL Blood 10/16/2024 5:12 PM CIVIL ENGINEERING ASSISTANT 10/16/2024 5:12 PM CIVIL ENGINEERING ASSISTANT us Emilia Damian MD LAB POCT ORDERABLES - DEV ICE Final Result JOHAN ACOSTA ([place]) 1 [facility] [place] [address] * POCT glucose (10/16/2024 4:04 PM CIVIL ENGINEERING ASSISTANT) Glucose, POC 193 70 - 199 mg/dL Blood 10/16/2024 4:04 PM CIVIL ENGINEERING ASSISTANT 10/16/2024 4:04 PM CIVIL ENGINEERING ASSISTANT us Emilia Damian MD LAB POCT ORDERABLES - DEV ICE Final Result Performing Organization Address City/[facility]/ZIP Co de Phone Number JOHAN ACOSTA ([place]) 1 [place] [address] * POCT glucose (10/16/2024 3:11 PM CIVIL ENGINEERING ASSISTANT) Glucose, POC 157 70 - 199 mg/dL Blood 10/16/2024 3:11 PM CIVIL ENGINEERING ASSISTANT 10/16/2024 3:11 PM CIVIL ENGINEERING ASSISTANT us Emilia Damian MD LAB POCT ORDERABLES - DEV ICE Final Result Performing Organization Address [facility] de Phone Number JOHAN ACOSTA ([place]) 1 [place] [address] * MA CRITICAL CARE ILL/INJURED PATIENT INIT 30-74 MIN (10/16/2024 2:08 PM CIVIL ENGINEERING ASSISTANT) Narrative Fabricio Flores MD - 10/16/2024 2:08 PM CIVIL ENGINEERING ASSISTANT Fabricio Flores MD 10/16/2024 2:08 PM Critical Care Performed by: Fabricio Flores MD Authorized by: Emilia Damian MD Critical care provider statement: As reflected in the history, physical exam, orders, notes, and/or MDM, I was personally present while the patient was critically ill and provided critical care services for 45 minutes, excluding time involved in separately billable procedures. Critical care was necessary to treat or prevent imminent or life-threatening deterioration of the following condition(s): hyperkalemia management us Emilia Damian MD IN CLINIC/BEDSIDE ORDERAB LES Final Result * POCT glucose (10/16/2024 1:44 PM CIVIL ENGINEERING ASSISTANT) Glucose, POC 136 70 - 199 mg/dL Blood 10/16/2024 1:44 PM CIVIL ENGINEERING ASSISTANT 10/16/2024 1:44 PM CIVIL ENGINEERING ASSISTANT Fabricio Flores MD LAB POCT ORDERABLES - DEVICE Final Result JOHAN SANCHEZ) 1 [facility] Department [place] [address] * ECG 12 lead (10/16/2024 1:37 PM CIVIL ENGINEERING ASSISTANT) 10/16/2024 1:37 PM CIVIL ENGINEERING ASSISTANT Narrative [facility] - 10/16/2024 2:12 PM CIVIL ENGINEERING ASSISTANT Vent Rate: 64 bpm RR Interval: 937 msec MA Interval: 190 msec QRS Duration: 105 msec QT Interval: 408 msec QTC Interval: 417 msec P-R-T [place]: 69 - 62 - 72 degrees IMPRESSION: SINUS RHYTHM LOW QRS VOLTAGE IN PRECORDIAL LEADS [QRS DEFLECTION < 1.0 mV IN CHEST LEADS] BORDERLINE ECG NO CHANGE FROM PREVIOUS TRACING NOTED Electronically Signed By: Jeremy Calix MD Lesley Cruz MD ECG ORDERABLES Final Resu lt Performing Organization Address City/[facility] Co de Phone Number [employer] [facility] * (ABNORMAL) eGFR (10/16/2024 12:35 PM CIVIL ENGINEERING ASSISTANT) eGFR 10(L) >=60 mL/min/1. 73 m2 Comment: Interpretive Data Reference Interval Normal >/= 90 mL/min/1.73m2 Mildly decreased* 60 - 89 mL/min/1.73m2 Mildly to moderately decreased 45 - 59 mL/min/1.73m2 Moderately to severely decreased 30 - 44 mL/min/1.73m2 Severely decreased 15 - 29 mL/min/1.73m2 Kidney Failure < 15 mL/min/1.73m2 *Relative to young adult level Estimated glomerular filtration rate is determined by the 2020 CKD-EPI equation recommended by the National Kidney Foundation (A Unifying Approach to GFR Estimation: Recommendations of the NKF-ASK Task Force on Reassessing the Inclusion of Race in Diagnosing Kidney Disease, JASN 2020). The CKD-EPI equation should not be used for patients with unstable renal function and has not been validated in children and those over 70. Current interpretive data was last reviewed 2021. Blood 10/16/2024 12:3 5 PM CIVIL ENGINEERING ASSISTANT 10/16/2024 12:36 PM CIVIL ENGINEERING ASSISTANT Fabricio Flores MD LAB BLOOD ORDERABLES Final R esult JOHAN ACOSTA ([place]) 1 [facility] Department [place] [address] * (ABNORMAL) Comprehensive metabolic panel (10/16/2024 12:35 PM CIVIL ENGINEERING ASSISTANT) Sodium 139 135 - 145 mmol/L Potassium, pl 6.1(C) 3.3 - 4.9 mmol/L [facility] ([place]) Comment:Critical Result call ed by [email or web address] at 2024-10-16 13:06:17. Result Read Back by MIR KHOURY Chloride 104 97 - 110 mmol/L [facility] ([place]) CO2 20(L) 22 - 32 mmol/L [facility] ([place]) Anion gap 16(H) 2 - 15 mmol/L [facility] ([place]) BUN 68(H) 6 - 25 mg/dL [facility] ([place]) Creatinine 4.68(H) 0.60 - 1.10 mg/dL [facility] ([place]) Glucose 134 70 - 199 mg/dL [facility] ([place]) Comment: Interpretive Data Fasting glucose >/= 126 mg/dl is diagnostic for diabetes. Fasting is defined as no caloric intake for at least 8 hours. Fasting glucose between 100 mg/dl to 125 mg/dl is diagnostic of prediabetes. In a patient with classic symptoms of hyperglycemia or hyperglycemic crisis, a random glucose >/= 200 mg/dl is diagnostic for diabetes. In the absence of unequivocal hyperglycemia, results should be confirmed by repeat testing. The classification and Diagnosis of Diabetes Diabetes Care 2021; 46: S19-S40. Current interpretive data was last revised 2022. Calcium 8.6 8.5 - 10.3 mg/dL [facility] ([place]) Bilirubin, total 0.3 0.1 - 1.2 mg/dL [facility] ([place]) Protein, pl 6.1(L) 6.5 - 8.5 g/dL [facility] ([place]) Albumin 3.5 3.5 - 5.0 g/dL [facility] ([place]) Alk phos 74 40 - 130 Units/L [facility] ([place]) ALT 12 7 - 45 Units/L [facility] ([place]) AST 15 10 - 45 Units/L [facility] ([place]) Comment: Hemolysis present. Results may be affected. Slightly Hemolyzed Specimen Blood 10/16/2024 12:3 5 PM CIVIL ENGINEERING ASSISTANT 10/16/2024 12:36 PM CIVIL ENGINEERING ASSISTANT Fabricio Flores MD LAB BLOOD ORDERABLES Final R esult Performing Organization Address [facility] Co de Phone Number [facility] ([place]) 1 [facility] Department [place] [address] * ECG 12 lead (10/16/2024 11:59 AM CIVIL ENGINEERING ASSISTANT) 10/16/2024 11:5 9 AM CIVIL ENGINEERING ASSISTANT Narrative [facility] - 10/16/2024 12:57 PM CIVIL ENGINEERING ASSISTANT Vent Rate: 62 bpm RR Interval: 960 msec MA Interval: 191 msec QRS Duration: 99 msec QT Interval: 397 msec QTC Interval: 402 msec P-R-T [place]: 81 - 73 - 77 degrees IMPRESSION: SINUS RHYTHM LOW QRS VOLTAGE IN PRECORDIAL LEADS [QRS DEFLECTION < 1.0 mV IN CHEST LEADS] BORDERLINE ECG NO CHANGE FROM PREVIOUS TRACING NOTED Electronically Signed By: Jeremy Calix MD Fabricio Flores MD ECG ORDERABLES Final Result Performing Organization Address [facility] de Phone Number [facility] [email or web address] [facility] * Differential, auto (10/16/2024 11:49 AM CIVIL ENGINEERING ASSISTANT) Neutrophil abs 6.4 1.5 - 6.5 K/cumm Imm gran abs 0.1 0.0 - 0.1 K/cumm [facility] ([place]) Lymphocyte abs 0.9 0.8 - 3.3 K/cumm [facility] ([place]) Monocyte abs 0.4 0.2 - 0.8 K/cumm [facility] ([place]) Eosinophil abs 0.0 0.0 - 0.5 K/cumm [facility] ([place]) Basophil abs 0.0 0.0 - 0.1 K/cumm [facility] ([place]) Neutrophil pct 82.2 % [facility] ([place]) Comment: Interpretive Data Percent cell count reference ranges are not reported, since discordance with absolute values may lead to misinterpretation of CBC data. Current Interpretive Data was last revised on 2017. Imm gran pct 0.8 % [facility] ([place]) Comment: Interpretive Data Percent cell count reference ranges are not reported, since discordance with absolute values may lead to misinterpretation of CBC data. Current Interpretive Data was last revised on 2017. Lymphocyte pct 11.0 % [facility] ([place]) Comment: Interpretive Data Percent cell count reference ranges are not reported, since discordance with absolute values may lead to misinterpretation of CBC data. Current Interpretive Data was last revised on 2017. Monocyte pct 5.7 % [facility] ([place]) Comment: Interpretive Data Percent cell count reference ranges are not reported, since discordance with absolute values may lead to misinterpretation of CBC data. Current Interpretive Data was last revised on 2017. Eosinophil pct 0.0 % [facility] ([place]) Comment: Interpretive Data Percent cell count reference ranges are not reported, since discordance with absolute values may lead to misinterpretation of CBC data. Current Interpretive Data was last revised on 2017. Basophil pct 0.3 % [facility] ([place]) Comment: Interpretive Data Percent cell count reference ranges are not reported, since discordance with absolute values may lead to misinterpretation of CBC data. Current Interpretive Data was last revised on 2017. Blood 10/16/2024 11:4 9 AM CIVIL ENGINEERING ASSISTANT 10/16/2024 12:01 PM CIVIL ENGINEERING ASSISTANT us Fabricio Flores MD LAB BLOOD ORDERABLES Final R esult JOHAN KARLA ([place]) 1 [facility] Department [place] [address] * (ABNORMAL) CBC with auto differential (10/16/2024 11:49 AM CIVIL ENGINEERING ASSISTANT) Pathologist [facility] WBC 7.7 3.8 - 9.9 K/cumm Hgb 9.1(L) 11.9 - 15.5 g/dL [facility] ([place]) Hct 32.4(L) 35.6 - 45.5 % [facility] ([place]) Plt 160 150 - 400 K/cumm [facility] ([place]) MPV 11.2 9.1 - 12.3 fL [facility] ([place]) RBC 2.99(L) 3.90 - 5.20 M/cumm [facility] ([place]) MCV 108.4(H) 81.3 - 96.4 fL [facility] ([place]) Comment:MCV delta possibly d ue to low sample volume. MCH 30.4 27.1 - 33.3 pg [facility] ([place]) MCHC 28.1(L) 32.3 - 35.7 g/dL [facility] ([place]) RDW CV 16.3(H) 11.1 - 14.9 % [facility] ([place]) RDW SD 65.8(H) 35.7 - 48.1 fL [facility] ([place]) NRBC abs 0.00 0.00 - 0.01 K/cumm [facility] ([facility]) Blood 10/16/2024 11:4 9 AM CIVIL ENGINEERING ASSISTANT 10/16/2024 12:01 PM CIVIL ENGINEERING ASSISTANT Fabricio Flores MD LAB BLOOD ORDERABLES Final R esult [facility] ([place]) 1 [facility] Department [place] [address] * Hepatitis panel, acute Blood (10/07/2024 11:04 AM CIVIL ENGINEERING ASSISTANT) Pathologist [facility] Hep A IgM Nonreactive Nonreactive Comment: Interpretive Data: If Hep A IgM Ab is reported as Equivocal, a new sample should be drawn in two weeks for testing. Current interpretive data was last revised on 19. Testing performed by: [facility], [address] [place] [address]., [id number] Hep B core IgM Nonreactive Nonreactive C SIENNA ACOSTA ([place]) Comment: Interpretive Data If HepB Core IgM Ab is reported as Equivocal, a new sample should be drawn in two weeks for testing. Current interpretive data was last revised on 19. Testing performed by: [facility], [address] [place] [address]., [id number] Hep C Ab Nonreactive Nonreactive JOHAN ACOSTA ([place]) Comment: Interpretive Data Nonreactive: Antibodies to HCV not detected. Does NOT exclude the possibility of recent exposure to HCV. Equivocal: Equivocal for HCV antibodies. Supplemental molecular testing will be automatically performed to determine infection status in accordance with current CDC screening recommendations. Reactive: Positive for HCV antibodies. This may represent current or past HCV infection. Supplemental molecular testing will be automatically performed to determine current infection status in accordance with current CDC screening recommendations. Interpretive data was last revised on 2019. Testing performed by: [address] [address] HepBsAg Nonreactive Nonreactive JOHAN ACOSTA ([place]) Comment:Testing performed by : [address] [address] Blood 10/07/2024 11:0 4 AM CIVIL ENGINEERING ASSISTANT 10/07/2024 1:25 PM CIVIL ENGINEERING ASSISTANT us Miguel Jamison MD LAB MICROBIOLOGY - GENER AL ORDERABLES Final Result JOHAN ACOSTA ([place]) 1 [facility] Department [place] [address] * Occult blood, fecal non neoplasm screening (08/02/2017 7:41 AM CIVIL ENGINEERING ASSISTANT) Occult blood, fecal Negative Negative JOHAN ACOSTA ([place]) Collection date , feces [id number] JOHAN ACOSTA ([place]) Collection time , feces 739 JOHAN ACOSTA ([place]) Stool 08/02/2017 7:41 AM CIVIL ENGINEERING ASSISTANT 08/02/2017 7:44 AM CIVIL ENGINEERING ASSISTANT us Pam Rivas MD LAB BODY FLUIDS AND STOOLS ORDER SARIKA Final Result [facility] ([place]) 1 [facility] Department [place] [address] * MAMMOGRAPHY (01/11/2002) Mammogram Normal Historical Provider HEALTH MAINTENANCE Final Result * COLONOSCOPY (10/14/2001) Colonoscopy Unknown Historical Provider HEALTH MAINTENANCE Final Result from Last 3 Months or Most Recently Relevant to Health Maintenance Additional Health Concerns Infection Onset Date Last Indicated MDR gram neg/ESBL 11/02/2024 11/02/2024 Insurance MEDICARE [facility] AETNA MEDICARE [facility] MEDICARE Address[facility] [id number] [place] [address] [facility] AETNA [facility] [employer] Advance Directives For more information, please contact: [phone] Documents on File Type Date Recorded Patient Chief Informatics Officer Expl anation ADVANCE DIRECTIVE 10/17/2024 1:12 PM POLST - Phys Order for PT Preferences * Full Code (Latest Code Status on File) Date Activated Date Inactivated Comments 11/02/2024 5:16 PM 11/07/2024 9:54 PM * Full Code Date Activated Date Inactivated Comments 10/24/2024 8:03 AM 10/27/2024 8:35 PM * Full Code Date Activated Date Inactivated Comments 10/22/2024 7:10 PM 10/24/2024 8:03 AM * Full Code Date Activated Date Inactivated Comments 10/16/2024 2:07 PM 10/19/2024 6:20 PM * Full Code Date Activated Date Inactivated Comments 10/06/2024 11:28 AM 10/12/2024 8:01 PM Healthcare Agents on File Name Relationship Healthcare Agent [facility] Communication Nelly Hall Friend Health Care Agent Care Teams Blueberry Grower Relationship Specialty Start Date End Date No, Physician PCP - General 07/27/22
--- OUTSIDE RECORDS SUMMARY | 2025-01-13 13:23 | XMS_ITS | Encounter Summary ---
Author Organization [facility] Health Address [facility] [place] [address] Care Team Providers Care Bearing Grinder Name Role Phone Terri Balderas MD Primary Care Provider [phone] Encounter Details Date Type Department Care Team (Late st Contact Info) Description 09/25/2024 Lab Requisition [facility] [address] [place] [address] [facility], [place] [id number] Social History Tobacco Use Types Packs/Day Years Used Date Smoking Tobacco: Unknown AUDIT-C Answer Date Recorded Q1: How often [...] and heating? Not hard at all 03/27/2024 [facility] [place] [facility] - Occupational Stress [...] place to sleep or slept in a halfway (including now)? No 03/27/2024 Comments Unknown Sex and Gender Information Value Date Recorded Sex Assigned at Not on file Legal Sex Female 7:55 AM CDT Gender Identity Not on file Sexual Orientation Not on file documented as of this encounter Functional Status * Is person deaf or have serious hearing difficulty? Answer Date of Assessment Author No 2024 2:09 PM Armida Ghosh RN * Is person blind or have serious difficulty seeing? Answer Date of Assessment Author No 2024 2:09 PM Armida Ghosh RN * Does person have serious difficulty walking/climbing stairs? Answer Date of Assessment Author Yes 2024 2:09 PM Armida Ghosh RN * Does person have difficulty dressing/bathing? Answer Date of Assessment Author Yes 2024 2:09 PM Armida Ghosh RN * Does person have difficulty doing errands alone? Answer Date of Assessment Author Yes 2024 2:09 PM Armida Ghosh RN documented as of this encounter Mental Status * Does person have difficulty concentrating/remembering/making decisions? Answer Entry Date Author No 2024 2:09 PM Armida Ghosh RN documented in this encounter Plan of Treatment Not on file documented as of this encounter Procedures Procedure Name Priority Date/Time Associated Diagnosis Comments CREATININE BLOOD STAT 09/25/2024 7:00 PM [employer] MANU[employer]URING CONSULTANT documented in this encounter Results * (ABNORMAL) CREATININE BLOOD (09/25/2024 7:00 PM [employer]LE MANUFACTURING CONSULTANT) Creatinine 4.74(H) 0.57 - 1.11 mg/dL 09/25/2024 8:18 PM [employer] MANUFACTURING CONSULTANT [facility] eGFR by CKD-EPI 10(L) >=90 mL/min/1.7 3 m2 09/25/2024 8:18 PM [employer]ACLE MANUFACTURING CONSULTANT [facility] Blood BLOOD SPECIMEN / Unknown Venipuncture / Unknown 09/25/2024 7:00 PM [employer]LE MANUFACTURING CONSULTANT 09/25/2024 7:51 PM [employer]ACLE MANUFACTURING CONSULTANT Darrel [facility] - CHEMISTRY ORDERABLES Adrianna l Result Performing Organization Address City/State/[place] Co de Phone Number [facility] [address] [place] [address] documented in this encounter Visit Diagnoses Not on filedocumented in this encounter Additional Health Concerns Infection Onset Date Last Indicated Resolved Time MRSA Hx Comment:nasal 2024 03/27/2024 ESBL GNR 03/26/2024 03/26/2024 MDRO 03/26/2024 03/26/2024 MRSA 03/26/2024 03/26/2024 documented as of this encounter Care Teams Bearing Grinder Relationship Specialty Start Date End Date Terri Balderas MD [address] [place] [address] PCP - General Family Medicine 03/27/24 documented as of this encounter
--- OUTSIDE RECORDS SUMMARY | 2025-01-13 13:24 | XMS_ITS ---
Author Organization [facility] [address] Address [address] [place] [address] Phone Care Team Providers Care Inside Polisher Name Role Phone No, Physician Primary Care Provider [phone] Dialysis Access Sites Type Status Location Placement Date Removal Da te Hemodialysis Cath Double Tunneled catheter Right Internal Jugular Active Right Neck (side) - Anterior Procedures Procedure Name Priority Date/Time Associated Diagnosis Comments POCT GLUCOSE DEVICE Routine 11/07/2024 4 :07 PM SOLUTIONS ENGINEER POCT GLUCOSE DEVICE Routine 11/07/2024 1 2:17 PM SOLUTIONS ENGINEER POCT GLUCOSE DEVICE Routine 11/07/2024 9 :25 AM SOLUTIONS ENGINEER POCT GLUCOSE DEVICE Routine 11/07/2024 7 :43 AM SOLUTIONS ENGINEER POCT GLUCOSE DEVICE Routine 11/07/2024 3 :26 AM SOLUTIONS ENGINEER EGFR Routine 11/07/2024 2:34 AM SOLUTIONS ENGINEER COMPREHENSIVE METABOLIC PANEL Routine 11/07/2024 2:34 AM SOLUTIONS ENGINEER HEMODIALYSIS Routine 11/07/2024 12:30 AM SOLUTIONS ENGINEER POCT GLUCOSE DEVICE Routine 11/06/2024 1 1:15 PM SOLUTIONS ENGINEER POCT GLUCOSE DEVICE Routine 11/06/2024 8 :00 PM SOLUTIONS ENGINEER POCT GLUCOSE DEVICE Routine 11/06/2024 6 :20 PM SOLUTIONS ENGINEER POCT GLUCOSE DEVICE Routine 11/06/2024 5 :18 PM SOLUTIONS ENGINEER POCT GLUCOSE DEVICE Routine 11/06/2024 1 2:16 PM SOLUTIONS ENGINEER EGFR Routine 11/06/2024 7:34 AM SOLUTIONS ENGINEER DIFFERENTIAL AUTO Routine 11/06/2024 7:3 4 AM SOLUTIONS ENGINEER CBC WITH AUTO DIFFERENTIAL Routine 11/06/2024 7:34 AM SOLUTIONS ENGINEER COMPREHENSIVE METABOLIC PANEL Routine 11/06/2024 7:34 AM SOLUTIONS ENGINEER POCT GLUCOSE DEVICE Routine 11/06/2024 7 :23 AM SOLUTIONS ENGINEER POCT GLUCOSE DEVICE Routine 11/06/2024 4 :16 AM SOLUTIONS ENGINEER POCT GLUCOSE DEVICE Routine 11/05/2024 1 1:46 PM SOLUTIONS ENGINEER POCT GLUCOSE DEVICE Routine 11/05/2024 8 :19 PM SOLUTIONS ENGINEER POCT GLUCOSE DEVICE Routine 11/05/2024 5 :21 PM SOLUTIONS ENGINEER POCT GLUCOSE DEVICE Routine 11/05/2024 1 1:41 AM SOLUTIONS ENGINEER POCT GLUCOSE DEVICE Routine 11/05/2024 7 :41 AM SOLUTIONS ENGINEER EGFR Routine 11/05/2024 7:24 AM SOLUTIONS ENGINEER DIFFERENTIAL AUTO Routine 11/05/2024 7:2 4 AM SOLUTIONS ENGINEER LIPID PANEL Routine 11/05/2024 7:24 AM SOLUTIONS ENGINEER CBC WITH AUTO DIFFERENTIAL Routine 11/05/2024 7:24 AM SOLUTIONS ENGINEER COMPREHENSIVE METABOLIC PANEL Routine 11/05/2024 7:24 AM SOLUTIONS ENGINEER POCT GLUCOSE DEVICE Routine 11/05/2024 3 :44 AM SOLUTIONS ENGINEER POCT GLUCOSE DEVICE Routine 11/04/2024 1 1:55 PM SOLUTIONS ENGINEER POCT GLUCOSE DEVICE Routine 11/04/2024 7 :59 PM SOLUTIONS ENGINEER POCT GLUCOSE DEVICE Routine 11/04/2024 4 :10 PM SOLUTIONS ENGINEER POCT GLUCOSE DEVICE Routine 11/04/2024 1 :01 PM SOLUTIONS ENGINEER EGFR Routine 11/04/2024 8:30 AM SOLUTIONS ENGINEER COMPREHENSIVE METABOLIC PANEL Routine 11/04/2024 8:30 AM SOLUTIONS ENGINEER HEPATITIS B SURFACE ANTIGEN Routine 11/04/2024 8:30 AM SOLUTIONS ENGINEER HEPATITIS B SURFACE ANTIBODY (IMMUNE STATUS) Routine 11/04/2024 8:30 AM SOLUTIONS ENGINEER POCT GLUCOSE DEVICE Routine 11/04/2024 7 :26 AM SOLUTIONS ENGINEER POCT GLUCOSE DEVICE Routine 11/04/2024 4 :35 AM SOLUTIONS ENGINEER POCT GLUCOSE DEVICE Routine 11/04/2024 2 :01 AM SOLUTIONS ENGINEER HEMODIALYSIS Routine 11/04/2024 12:31 AM SOLUTIONS ENGINEER POCT GLUCOSE DEVICE Routine 11/03/2024 8 :36 PM SOLUTIONS ENGINEER POCT GLUCOSE DEVICE Routine 11/03/2024 4 :18 PM SOLUTIONS ENGINEER POCT GLUCOSE DEVICE Routine 11/03/2024 1 2:54 PM SOLUTIONS ENGINEER POCT GLUCOSE DEVICE Routine 11/03/2024 8 :00 AM SOLUTIONS ENGINEER BLOOD CULTURE STAT 11/03/2024 4:51 AM SOLUTIONS ENGINEER POCT GLUCOSE DEVICE Routine 11/03/2024 4 :13 AM SOLUTIONS ENGINEER POCT GLUCOSE DEVICE Routine 11/03/2024 1 2:40 AM SOLUTIONS ENGINEER DE CRITICAL CARE ILL/INJURED PATIENT INIT 30-74 MIN Routine 11/02/2024 10:16 PM SOLUTIONS ENGINEER CRITICAL CARE Routine 11/02/2024 9:53 PM SOLUTIONS ENGINEER Influenza A Delirium Acute on chronic respiratory failure with hypoxia and hypercapnia (HCC) INFLUENZA A/B, RSV, AND COVID-19 PCR Routine 11/02/2024 9:50 PM SOLUTIONS ENGINEER POCT GLUCOSE DEVICE Routine 11/02/2024 9 :29 PM SOLUTIONS ENGINEER BLOOD GAS, VENOUS Routine 11/02/2024 8:5 8 PM SOLUTIONS ENGINEER TROPONIN T HIGH-SENSITIVITY 6-HOUR Timed 11/02/2024 8:58 PM SOLUTIONS ENGINEER BLOOD CULTURE STAT 11/02/2024 8:58 PM SOLUTIONS ENGINEER POCT GLUCOSE DEVICE Routine 11/02/2024 6 :40 PM SOLUTIONS ENGINEER URINALYSIS, MICROSCOPIC ONLY STAT 11/02/2024 2:26 PM SOLUTIONS ENGINEER URINE CULTURE STAT 11/02/2024 2:26 PM SOLUTIONS ENGINEER URINALYSIS AND REFLEX TO MICROSCOPIC AND CULTURE STAT 11/02/2024 2:26 PM SOLUTIONS ENGINEER XR CHEST 1 VIEW ED 11/02/2024 1:57 PM SOLUTIONS ENGINEER EGFR STAT 11/02/2024 1:54 PM SOLUTIONS ENGINEER DIFFERENTIAL AUTO STAT 11/02/2024 1:5 4 PM SOLUTIONS ENGINEER SEPSIS LACTATE WITH REFLEX STAT 11/02/2024 1:54 PM SOLUTIONS ENGINEER TROPONIN T HIGH-SENSITIVITY SERIES (BASELINE, 2HR, 4HR, 6HR) Routine 11/02/2024 1:54 PM SOLUTIONS ENGINEER PROTIME-INR STAT 11/02/2024 1:54 PM SOLUTIONS ENGINEER PRO B-TYPE NATRIURETIC PEPTIDE STAT 11/02/2024 1:54 PM SOLUTIONS ENGINEER MAGNESIUM Routine 11/02/2024 1:54 PM SOLUTIONS ENGINEER COMPREHENSIVE METABOLIC PANEL STAT 11/02/2024 1:54 PM SOLUTIONS ENGINEER CBC WITH AUTO DIFFERENTIAL STAT 11/02/2024 1:54 PM SOLUTIONS ENGINEER APTT STAT 11/02/2024 1:54 PM SOLUTIONS ENGINEER LEVETIRACETAM LEVEL Timed 11/02/2024 1 :54 PM SOLUTIONS ENGINEER AMMONIA STAT 11/02/2024 1:54 PM SOLUTIONS ENGINEER BLOOD GAS, VENOUS STAT 11/02/2024 1:5 4 PM SOLUTIONS ENGINEER ECG 12-LEAD Routine 11/02/2024 1:44 PM SOLUTIONS ENGINEER POCT GLUCOSE DEVICE Routine 11/02/2024 1 :20 PM SOLUTIONS ENGINEER POCT GLUCOSE DEVICE Routine 10/27/2024 1 1:58 AM SOLUTIONS ENGINEER POCT GLUCOSE DEVICE Routine 10/27/2024 8 :11 AM SOLUTIONS ENGINEER EGFR Routine 10/27/2024 3:25 AM SOLUTIONS ENGINEER BASIC METABOLIC PANEL Routine 10/27/2024 3:25 AM SOLUTIONS ENGINEER CBC WITHOUT DIFFERENTIAL Routine 10/27/2024 3:25 AM SOLUTIONS ENGINEER POCT GLUCOSE DEVICE Routine 10/27/2024 3 :24 AM SOLUTIONS ENGINEER HEMODIALYSIS Routine 10/27/2024 12:30 AM SOLUTIONS ENGINEER POCT GLUCOSE DEVICE Routine 10/26/2024 9 :24 PM SOLUTIONS ENGINEER POCT GLUCOSE DEVICE Routine 10/26/2024 5 :07 PM SOLUTIONS ENGINEER POCT GLUCOSE DEVICE Routine 10/26/2024 1 1:45 AM SOLUTIONS ENGINEER HEMOGLOBIN AND HEMATOCRIT STAT 10/26/2024 8:47 AM SOLUTIONS ENGINEER POCT GLUCOSE DEVICE Routine 10/26/2024 7 :59 AM SOLUTIONS ENGINEER TRANSFUSE RED BLOOD CELLS Timed 10/26/2024 5:10 AM SOLUTIONS ENGINEER PREPARE RBC Routine 10/26/2024 5:06 AM SOLUTIONS ENGINEER PREPARE RBC Timed 10/26/2024 5:06 AM SOLUTIONS ENGINEER EGFR Routine 10/26/2024 2:46 AM SOLUTIONS ENGINEER BASIC METABOLIC PANEL Routine 10/26/2024 2:46 AM SOLUTIONS ENGINEER CBC WITHOUT DIFFERENTIAL Routine 10/26/2024 2:46 AM SOLUTIONS ENGINEER POCT GLUCOSE DEVICE Routine 10/26/2024 2 :07 AM SOLUTIONS ENGINEER POCT GLUCOSE DEVICE Routine 10/25/2024 8 :30 PM SOLUTIONS ENGINEER POCT GLUCOSE DEVICE Routine 10/25/2024 5 :13 PM SOLUTIONS ENGINEER POCT GLUCOSE DEVICE Routine 10/25/2024 1 2:08 PM SOLUTIONS ENGINEER HEMOGLOBIN AND HEMATOCRIT STAT 10/25/2024 9:11 AM SOLUTIONS ENGINEER CROSSMATCH STAT 10/25/2024 6:35 AM SOLUTIONS ENGINEER ANTIBODY SCREEN STAT 10/25/2024 6:35 AM SOLUTIONS ENGINEER ABO/RH STAT 10/25/2024 6:35 AM SOLUTIONS ENGINEER TYPE AND SCREEN STAT 10/25/2024 6:35 AM SOLUTIONS ENGINEER PROCALCITONIN Add-On 10/25/2024 3:16 AM SOLUTIONS ENGINEER EGFR Routine 10/25/2024 3:16 AM SOLUTIONS ENGINEER VANCOMYCIN LEVEL RANDOM Routine 10/25/2024 3:16 AM SOLUTIONS ENGINEER BASIC METABOLIC PANEL Routine 10/25/2024 3:16 AM SOLUTIONS ENGINEER CBC WITHOUT DIFFERENTIAL Routine 10/25/2024 3:16 AM SOLUTIONS ENGINEER POCT GLUCOSE DEVICE Routine 10/25/2024 2 :18 AM SOLUTIONS ENGINEER HEMODIALYSIS Routine 10/25/2024 12:30 AM SOLUTIONS ENGINEER POCT GLUCOSE DEVICE Routine 10/24/2024 1 1:42 PM SOLUTIONS ENGINEER POCT GLUCOSE DEVICE Routine 10/24/2024 8 :31 PM SOLUTIONS ENGINEER POCT GLUCOSE DEVICE Routine 10/24/2024 8 :30 PM SOLUTIONS ENGINEER POCT GLUCOSE DEVICE Routine 10/24/2024 4 :[address] HEAD WO CONTRAST IP Routine 10/24/2024 3 :12 PM SOLUTIONS ENGINEER POCT GLUCOSE DEVICE Routine 10/24/2024 1 1:48 AM SOLUTIONS ENGINEER FOLATE Add-On 10/24/2024 8:10 AM SOLUTIONS ENGINEER VITAMIN B12 Add-On 10/24/2024 8:10 AM SOLUTIONS ENGINEER FERRITIN Add-On 10/24/2024 8:10 AM SOLUTIONS ENGINEER IRON PROFILE W/ IBC Add-On 10/24/2024 8 :10 AM SOLUTIONS ENGINEER POCT GLUCOSE DEVICE Routine 10/24/2024 7 :53 AM SOLUTIONS ENGINEER HEMOGLOBIN A1C Add-On 10/24/2024 3:36 AM SOLUTIONS ENGINEER EGFR Routine 10/24/2024 3:36 AM SOLUTIONS ENGINEER BASIC METABOLIC PANEL Routine 10/24/2024 3:36 AM SOLUTIONS ENGINEER CBC WITHOUT DIFFERENTIAL Routine 10/24/2024 3:36 AM SOLUTIONS ENGINEER BLOOD CULTURE Routine 10/24/2024 3:36 AM SOLUTIONS ENGINEER POCT GLUCOSE DEVICE Routine 10/24/2024 3 :11 AM SOLUTIONS ENGINEER POCT GLUCOSE DEVICE Routine 10/23/2024 9 :27 PM SOLUTIONS ENGINEER BLOOD CULTURE Routine 10/23/2024 4:51 PM SOLUTIONS ENGINEER POCT GLUCOSE DEVICE Routine 10/23/2024 4 :02 PM SOLUTIONS ENGINEER POCT GLUCOSE DEVICE Routine 10/23/2024 1 2:10 PM SOLUTIONS ENGINEER BLOOD GAS, ARTERIAL STAT 10/23/2024 9 :06 AM SOLUTIONS ENGINEER POCT GLUCOSE DEVICE Routine 10/23/2024 8 :09 AM SOLUTIONS ENGINEER HEMODIALYSIS Routine 10/23/2024 6:14 AM SOLUTIONS ENGINEER BLOOD CULTURE Routine 10/23/2024 5:56 AM SOLUTIONS ENGINEER EGFR Routine 10/23/2024 5:38 AM SOLUTIONS ENGINEER PHOSPHORUS Routine 10/23/2024 5:38 AM SOLUTIONS ENGINEER BASIC METABOLIC PANEL Routine 10/23/2024 5:38 AM SOLUTIONS ENGINEER CBC WITHOUT DIFFERENTIAL Routine 10/23/2024 5:38 AM SOLUTIONS ENGINEER MAGNESIUM Routine 10/23/2024 5:38 AM SOLUTIONS ENGINEER BLOOD CULTURE Routine 10/23/2024 5:38 AM SOLUTIONS ENGINEER POCT GLUCOSE DEVICE Routine 10/23/2024 5 :12 AM SOLUTIONS ENGINEER POCT GLUCOSE DEVICE Routine 10/23/2024 1 2:06 AM SOLUTIONS ENGINEER ECG 12-LEAD STAT 10/22/2024 8:24 PM SOLUTIONS ENGINEER POCT GLUCOSE DEVICE Routine 10/22/2024 7 :18 PM SOLUTIONS ENGINEER POCT GLUCOSE DEVICE Routine 10/22/2024 6 :36 PM SOLUTIONS ENGINEER MRSA ONLY (STAPHYLOCOCCUS AUREUS) PCR Routine 10/22/2024 5:32 PM SOLUTIONS ENGINEER TROPONIN T HIGH-SENSITIVITY 6-HOUR Timed 10/22/2024 5:04 PM SOLUTIONS ENGINEER TROPONIN T HIGH-SENSITIVITY 4-HR Timed 10/22/2024 4:22 PM SOLUTIONS ENGINEER POCT GLUCOSE DEVICE Routine 10/22/2024 4 :20 PM SOLUTIONS ENGINEER DE CRITICAL CARE ILL/INJURED PATIENT INIT 30-74 MIN Routine 10/22/2024 3:53 PM SOLUTIONS ENGINEER AMMONIA STAT 10/22/2024 2:17 PM SOLUTIONS ENGINEER POCT GLUCOSE DEVICE Routine 10/22/2024 2 :01 PM SOLUTIONS ENGINEER TROPONIN T HIGH-SENSITIVITY 2-HOUR Timed 10/22/2024 1:58 PM SOLUTIONS ENGINEER BLOOD GAS, ARTERIAL STAT 10/22/2024 1 :49 PM SOLUTIONS ENGINEER ANTIBODY SCREEN STAT 10/22/2024 12:32 PM SOLUTIONS ENGINEER ABO/RH STAT 10/22/2024 12:32 PM SOLUTIONS ENGINEER TYPE AND SCREEN STAT 10/22/2024 12:32 PM SOLUTIONS ENGINEER SEPSIS LACTATE WITH REFLEX Routine 10/22/2024 12:32 PM SOLUTIONS ENGINEER BLOOD CULTURE STAT 10/22/2024 11:24 AM SOLUTIONS ENGINEER EGFR STAT 10/22/2024 11:20 AM SOLUTIONS ENGINEER CRP (ACUTE PHASE) STAT 10/22/2024 11: 20 AM SOLUTIONS ENGINEER PRO B-TYPE NATRIURETIC PEPTIDE STAT 10/22/2024 11:20 AM SOLUTIONS ENGINEER TROPONIN T HIGH-SENSITIVITY SERIES (BASELINE, 2HR, 4HR, 6HR) STAT 10/22/2024 11:20 AM SOLUTIONS ENGINEER COMPREHENSIVE METABOLIC PANEL STAT 10/22/2024 11:20 AM SOLUTIONS ENGINEER BLOOD CULTURE STAT 10/22/2024 11:20 AM SOLUTIONS ENGINEER ECG 12-LEAD Routine 10/22/2024 11:16 AM SOLUTIONS ENGINEER XR CHEST 1 VIEW ED 10/22/2024 11:08 AM SOLUTIONS ENGINEER DIFFERENTIAL AUTO STAT 10/22/2024 11: 03 AM SOLUTIONS ENGINEER CBC WITH AUTO DIFFERENTIAL STAT 10/22/2024 11:03 AM SOLUTIONS ENGINEER INFLUENZA A/B, RSV, AND COVID-19 PCR STAT 10/22/2024 11:03 AM SOLUTIONS ENGINEER SEPSIS LACTATE WITH REFLEX Routine 10/22/2024 10:55 AM SOLUTIONS ENGINEER BLOOD GAS, ARTERIAL STAT 10/22/2024 1 0:54 AM SOLUTIONS ENGINEER POCT GLUCOSE DEVICE Routine 10/19/2024 1 2:19 PM SOLUTIONS ENGINEER POCT GLUCOSE DEVICE Routine 10/19/2024 8 :24 AM SOLUTIONS ENGINEER EGFR Routine 10/19/2024 2:27 AM SOLUTIONS ENGINEER DIFFERENTIAL AUTO Routine 10/19/2024 2:2 7 AM SOLUTIONS ENGINEER CBC WITH AUTO DIFFERENTIAL Routine 10/19/2024 2:27 AM SOLUTIONS ENGINEER MAGNESIUM Routine 10/19/2024 2:27 AM SOLUTIONS ENGINEER COMPREHENSIVE METABOLIC PANEL Routine 10/19/2024 2:27 AM SOLUTIONS ENGINEER POCT GLUCOSE DEVICE Routine 10/19/2024 2 :17 AM SOLUTIONS ENGINEER HEMODIALYSIS Routine 10/19/2024 12:31 AM SOLUTIONS ENGINEER POCT GLUCOSE DEVICE Routine 10/18/2024 8 :18 PM SOLUTIONS ENGINEER POCT GLUCOSE DEVICE Routine 10/18/2024 5 :10 PM SOLUTIONS ENGINEER POCT GLUCOSE DEVICE Routine 10/18/2024 1 2:00 PM SOLUTIONS ENGINEER POCT GLUCOSE DEVICE Routine 10/18/2024 9 :10 AM SOLUTIONS ENGINEER EGFR Routine 10/18/2024 2:21 AM SOLUTIONS ENGINEER DIFFERENTIAL AUTO Routine 10/18/2024 2:2 1 AM SOLUTIONS ENGINEER CBC WITH AUTO DIFFERENTIAL Routine 10/18/2024 2:21 AM SOLUTIONS ENGINEER MAGNESIUM Routine 10/18/2024 2:21 AM SOLUTIONS ENGINEER COMPREHENSIVE METABOLIC PANEL Routine 10/18/2024 2:21 AM SOLUTIONS ENGINEER POCT GLUCOSE DEVICE Routine 10/18/2024 2 :20 AM SOLUTIONS ENGINEER POCT GLUCOSE DEVICE Routine 10/17/2024 8 :15 PM SOLUTIONS ENGINEER POCT GLUCOSE DEVICE Routine 10/17/2024 4 :41 PM SOLUTIONS ENGINEER POCT GLUCOSE DEVICE Routine 10/17/2024 1 2:43 PM SOLUTIONS ENGINEER POCT GLUCOSE DEVICE Routine 10/17/2024 2 :13 AM SOLUTIONS ENGINEER EGFR Routine 10/17/2024 12:13 AM SOLUTIONS ENGINEER PHOSPHORUS Routine 10/17/2024 12:13 AM SOLUTIONS ENGINEER DIFFERENTIAL AUTO Routine 10/17/2024 12: 13 AM SOLUTIONS ENGINEER COMPREHENSIVE METABOLIC PANEL Routine 10/17/2024 12:13 AM SOLUTIONS ENGINEER MAGNESIUM Routine 10/17/2024 12:13 AM SOLUTIONS ENGINEER CBC WITH AUTO DIFFERENTIAL Routine 10/17/2024 12:13 AM SOLUTIONS ENGINEER POTASSIUM LEVEL Timed 10/16/2024 9:06 PM SOLUTIONS ENGINEER POCT GLUCOSE DEVICE Routine 10/16/2024 8 :49 PM SOLUTIONS ENGINEER POTASSIUM LEVEL Timed 10/16/2024 5:31 PM SOLUTIONS ENGINEER POCT GLUCOSE DEVICE Routine 10/16/2024 5 :12 PM SOLUTIONS ENGINEER POCT GLUCOSE DEVICE Routine 10/16/2024 4 :04 PM SOLUTIONS ENGINEER POCT GLUCOSE DEVICE Routine 10/16/2024 3 :11 PM SOLUTIONS ENGINEER DE CRITICAL CARE ILL/INJURED PATIENT INIT 30-74 MIN Routine 10/16/2024 2:08 PM SOLUTIONS ENGINEER POCT GLUCOSE DEVICE Routine 10/16/2024 1 :44 PM SOLUTIONS ENGINEER ECG 12-LEAD STAT 10/16/2024 1:37 PM SOLUTIONS ENGINEER EGFR STAT 10/16/2024 12:35 PM SOLUTIONS ENGINEER COMPREHENSIVE METABOLIC PANEL STAT 10/16/2024 12:35 PM SOLUTIONS ENGINEER ECG 12-LEAD STAT 10/16/2024 11:59 AM SOLUTIONS ENGINEER DIFFERENTIAL AUTO STAT 10/16/2024 11: 49 AM SOLUTIONS ENGINEER CBC WITH AUTO DIFFERENTIAL STAT 10/16/2024 11:49 AM SOLUTIONS ENGINEER HEPATITIS PANEL, ACUTE Routine 10/07/2024 11:04 AM SOLUTIONS ENGINEER OCCULT BLOOD, FECAL (FIT) Routine 08/02/2017 7:41 AM SOLUTIONS ENGINEER HM MAMMOGRAPHY Routine 01/11/2002 HM COLONOSCOPY Routine 10/14/2001 from Last 3 Months or Most Recently Relevant to Health Maintenance Allergies Active Allergy Reactions Criticality Noted Date [...] 08/04/2022 Assessment & Plan (08/04/2022 10:52 AM SOLUTIONS ENGINEER): Had normal K on admission. K last 2 days has been 5.1, 5.3. whole blood K of 5.2. Creatinine stable. Suspect due to immobilization vs resolving ROGER. -treat with lokelma x 2 days -will need repeat labs at SNF in 3-7 days. CKD (chronic kidney disease) stage 3, GFR 30-59 ml/min 07/28/2022 Assessment & Plan (08/04/2022 10:50 AM SOLUTIONS ENGINEER): Mild ROGER on top of CKD3 - improved, now creat stable at 1.29. (though might be artificially increased due to being on bactrim) - avoid nephrotoxins and renally dose meds Assessment & Plan (08/02/2022 2:25 PM SOLUTIONS ENGINEER): Mild rgoer on top of CKD 3 - will continue to monitor with daily BMP - avoid nephrotoxins and renally dose meds - creatinine stable but not back to baseline, Bactrim may be contributing to cr lab elevation - IVF today and reassess Assessment & Plan (08/01/2022 11:07 AM SOLUTIONS ENGINEER): Mild roger on top of CKD 3 - will continue to monitor with daily BMP - avoid nephrotoxins and renally dose meds - creatinine downtrending Assessment & Plan (07/31/2022 1:52 PM SOLUTIONS ENGINEER): Mild roger on top of CKD 3 - will continue to monitor with daily BMP - Hold am lasix, add small IVF bolus - avoid nephrotoxins and renally dose meds - creatinine downtrending Assessment & Plan (07/30/2022 1:34 PM SOLUTIONS ENGINEER): Mild roger on top of CKD 3 - will continue to monitor with daily BMP - slight bump today - Hold am lasix, add small IVF bolus - avoid nephrotoxins and renally dose meds Assessment & Plan (07/28/2022 2:32 PM SOLUTIONS ENGINEER): Mild roger on top of CKD 3 - will continue to monitor with daily BMP - Hold am lasix - send urinalysis - avoid nephrotoxins and renally dose meds Cellulitis of abdominal wall 07/27/2022 Assessment & Plan (08/04/2022 10:49 AM SOLUTIONS ENGINEER): Pt presenting with abdominal wall erythema and [...] resolved Assessment & Plan (08/02/2022 2:23 PM SOLUTIONS ENGINEER): Pt presenting with abdominal wall erythema and [...] improving Assessment & Plan (08/01/2022 10:56 AM SOLUTIONS ENGINEER): Pt presenting with abdominal wall erythema and [...] improving Assessment & Plan (07/31/2022 1:51 PM SOLUTIONS ENGINEER): Pt presenting with abdominal wall erythema and [...] positive Assessment & Plan (07/30/2022 1:32 PM SOLUTIONS ENGINEER): Pt presenting with abdominal wall erythema and [...] contaminant Assessment & Plan (07/29/2022 2:29 PM SOLUTIONS ENGINEER): Pt presenting with abdominal wall erythema and [...] appropriate Assessment & Plan (07/28/2022 2:24 PM SOLUTIONS ENGINEER): Pt presenting with abdominal wall erythema and [...] 01/21/2022 Assessment & Plan (08/03/2022 3:28 PM SOLUTIONS ENGINEER): CT in January 2022 showed 4 cm [...] radiology they have such a scanner at [facility] Assessment & Plan (08/02/2022 2:24 PM SOLUTIONS ENGINEER): CT in January 2022 showed 4 cm [...] radiology they have such a scanner at [facility] Assessment & Plan (08/01/2022 11:05 AM SOLUTIONS ENGINEER): CT in January 2022 showed 4 cm [...] not Assessment & Plan (07/31/2022 1:51 PM SOLUTIONS ENGINEER): CT in January 2022 showed 4 cm indeterminant renal mass, has progressed since previous imaging and was recommended to have MRI outpatient but patient was not scanned. - ordered MRI and attempting to get as inpatient Assessment & Plan (07/30/2022 1:33 PM SOLUTIONS ENGINEER): CT in January 2022 showed 4 cm indeterminant renal mass, has progressed since previous imaging and was recommended to have MRI outpatient but patient was not scanned. - ordered MRI Assessment & Plan (07/28/2022 2:30 PM SOLUTIONS ENGINEER): CT in January 2022 showed 4 cm [...] 021 Assessment & Plan (08/04/2022 10:49 AM SOLUTIONS ENGINEER): Pt with Hx of COPD (former smoker), SHELDON and OHS on 3L O2 chronically and Bipap At baseline - Cont home ICS/LABA (formulary substitute for home symbicort) and duonebs prn, bipap and supplemental O2. Assessment & Plan (08/02/2022 2:23 PM SOLUTIONS ENGINEER): Pt with Hx of COPD (former smoker), SHELDON and OHS on 3L O2 chronically and Bipap - Cont home ICS/LABA (formulary substitute for home symbicort) and duonebs prn, bipap and supplemental O2. Assessment & Plan (08/01/2022 10:56 AM SOLUTIONS ENGINEER): Pt with Hx of COPD (former smoker), SHELDON and OHS on 3L O2 chronically and Bipap - Cont home ICS/LABA (formulary substitute for home symbicort) and duonebs prn, bipap and supplemental O2. Assessment & Plan (07/31/2022 1:51 PM SOLUTIONS ENGINEER): Pt with Hx of COPD (former smoker), SHELDON and OHS on 3L O2 chronically and Bipap - Cont home ICS/LABA (formulary substitute for home symbicort) and duonebs prn, bipap and supplemental O2. Assessment & Plan (07/30/2022 1:32 PM SOLUTIONS ENGINEER): Pt with Hx of COPD (former smoker), SHELDON and OHS on 3L O2 chronically and Bipap - Cont home ICS/LABA (formulary substitute for home symbicort) and duonebs prn, bipap and supplemental O2. Assessment & Plan (07/29/2022 2:42 PM SOLUTIONS ENGINEER): Pt with Hx of COPD (former smoker), SHELDON and OHS on 3L O2 chronically and Bipap - Cont home ICS/LABA (formulary substitute for home symbicort) and duonebs prn, bipap and supplemental O2. Assessment & Plan (07/28/2022 2:25 PM SOLUTIONS ENGINEER): Pt with Hx of COPD (former smoker), [...] 04/02/2021 Assessment & Plan (08/04/2022 10:50 AM SOLUTIONS ENGINEER): Patient with hx of left knee surgery 2/2 fracture and Right knee osteoarthritis. Also with hx of gout of Right Toe. Right knee exam is benign. - uric acid elevated - knee x-ray with OA - continue tylenol and oxycodone, added lidocaine patch Assessment & Plan (08/02/2022 2:22 PM SOLUTIONS ENGINEER): Patient with hx of left knee surgery [...] Plan (12/12/2021 9:35 AM CDT): - TTE (2018): normal LVEF, indeterminate diastolic function - lasix 40mg PO daily Impaired mobility 03/28/2021 Severe episode of recurrent major depressive disorder, without psychotic features 12/12/2018 Obstructive sleep apnea 12/10/2018 Assessment & Plan (12/17/2021 1:05 PM CDT): - CPAP nightly. [facility] notes report CPAP at 6mm H2O with 2L O2 bleed in Assessment & Plan (12/16/2021 3:38 PM CDT): - CPAP nightly. [facility] notes report CPAP at 6mm H2O with 2L O2 bleed in Assessment & Plan (12/15/2021 10:05 AM CDT): - CPAP nightly. [facility] notes report CPAP at 6mm H2O with 2L O2 bleed in Assessment & Plan (12/14/2021 11:36 AM CDT): - CPAP nightly. [facility] notes report CPAP at 6mm H2O with 2L O2 bleed in Assessment & Plan (12/13/2021 10:36 AM CDT): - CPAP nightly. [facility] notes report CPAP at 6mm H2O with 2L O2 bleed in Assessment & Plan (12/11/2021 10:45 PM CDT): - CPAP nightly. SNF notes [...] 12/10/2018 Assessment & Plan (08/03/2022 3:28 PM SOLUTIONS ENGINEER): Continue home synthyroid Assessment & Plan (08/02/2022 2:24 PM SOLUTIONS ENGINEER): Continue home synthyroid Assessment & Plan (08/01/2022 10:57 AM SOLUTIONS ENGINEER): Continue home synthyroid Assessment & Plan (07/31/2022 1:51 PM SOLUTIONS ENGINEER): Continue home synthyroid Assessment & Plan (07/30/2022 1:33 PM SOLUTIONS ENGINEER): Continue home synthyroid Assessment & Plan (07/27/2022 8:24 PM SOLUTIONS ENGINEER): Continue home synthyroid Assessment & Plan (01/23/2022 [...] 03/19/2018 Assessment & Plan (08/03/2022 3:26 PM SOLUTIONS ENGINEER): Continue home xarelto Assessment & Plan (08/02/2022 2:24 PM SOLUTIONS ENGINEER): Continue home xarelto Assessment & Plan (08/01/2022 10:57 AM SOLUTIONS ENGINEER): Continue home xarelto Assessment & Plan (07/31/2022 1:51 PM SOLUTIONS ENGINEER): Continue home xarelto Assessment & Plan (07/30/2022 1:33 PM SOLUTIONS ENGINEER): Continue home xarelto Assessment & Plan (07/27/2022 8:25 PM SOLUTIONS ENGINEER): Continue home xarelto Assessment & Plan (01/23/2022 [...] embolus less than 3 months ago no [place] details she has had numerous hospitalizations in [...] (10/27/2017): Added automatically from request for surgery [id number] Restless leg 10/18/2017 Assessment & Plan (08/03/2022 3:28 PM SOLUTIONS ENGINEER): Continue pramipexole Assessment & Plan (08/02/2022 2:23 PM SOLUTIONS ENGINEER): Continue pramipexole Assessment & Plan (08/01/2022 10:57 AM SOLUTIONS ENGINEER): Continue pramipexole Assessment & Plan (07/31/2022 1:51 PM SOLUTIONS ENGINEER): Continue pramipexole Assessment & Plan (07/30/2022 1:33 PM SOLUTIONS ENGINEER): Continue pramipexole Assessment & Plan (07/27/2022 8:23 PM SOLUTIONS ENGINEER): Continue pramipexole Assessment & Plan (12/17/2021 1:04 [...] 10/18/2017 Assessment & Plan (10/18/2017 6:00 PM SOLUTIONS ENGINEER): Informed patient today that she would need to comply with this office recommendations on management of her multiple chronic conditions, failure to do so, would mean that she would need to find another primary care provider. Chronic pain syndrome 10/18/2017 Assessment & Plan (12/17/2021 1:04 PM CDT): Chronic pain of bilateral legs s/p fracture, shoulder and back. On [place] 7.5-325 q6h prn at home - tylenol 1g q6h prn, oxycodone 10mg q6h prn - home gabapentin 100mg TID - scheduled and prn bowel regimen - started lidoderm patches for most painful area Assessment & Plan (12/16/2021 3:37 PM CDT): chronic pain of bilateral legs s/p fracture, shoulder and back. On [place] 7.5-325 q6h prn at home - tylenol 1g q6h prn, oxycodone 10mg q6h prn - home gabapentin 100mg TID - scheduled and prn bowel regimen - started lidoderm patches for most painful area Assessment & Plan (12/15/2021 10:05 AM CDT): chronic pain of bilateral legs s/p fracture, shoulder and back. On [place] 7.5-325 q6h prn at home - tylenol 1g q6h prn, oxycodone 10mg q6h prn - home gabapentin 100mg TID - scheduled and prn bowel regimen - started lidoderm patches for most painful area Assessment & Plan (12/14/2021 11:36 AM CDT): chronic pain of bilateral legs s/p fracture, shoulder and back. On [place] 7.5-325 q6h prn at home - tylenol 1g q6h prn, oxycodone 10mg q6h prn - home gabapentin 100mg TID - scheduled and prn bowel regimen - started lidoderm patches for most painful area Assessment & Plan (12/13/2021 10:36 AM CDT): chronic pain of bilateral legs s/p fracture, shoulder and back. On [place] 7.5-325 q6h prn at home - tylenol 1g q6h prn, oxycodone 10mg q6h prn - home gabapentin 100mg TID - scheduled and prn bowel regimen - started lidoderm patches for most painful area Assessment & Plan (12/12/2021 9:35 AM CDT): chronic pain of bilateral legs s/p fracture, shoulder and back. On [place] 7.5-325 q6h prn at home - tylenol [...] events Assessment & Plan (10/18/2017 5:57 PM SOLUTIONS ENGINEER): Referred to pain mgmt for further eval/tx. Wound dehiscence 10/18/2017 Assessment & Plan (10/18/2017 5:58 PM SOLUTIONS ENGINEER): Referral given 2 months ago to be seen by wound care. Patient did not follow up with them. Seizure disorder 07/20/2017 Assessment & Plan (08/03/2022 3:28 PM SOLUTIONS ENGINEER): Controlled. Continue home keppra & oxcarbazapine. Assessment & Plan (08/02/2022 2:23 PM SOLUTIONS ENGINEER): Controlled. Continue home keppra & oxcarbazapine. Assessment & Plan (08/01/2022 10:57 AM SOLUTIONS ENGINEER): Controlled. Continue home keppra & oxcarbazapine. Assessment & Plan (07/31/2022 1:51 PM SOLUTIONS ENGINEER): Controlled. Continue home keppra & oxcarbazapine. Assessment & Plan (07/30/2022 1:33 PM SOLUTIONS ENGINEER): Controlled. Continue home keppra & oxcarbazapine. Assessment & Plan (07/27/2022 8:25 PM SOLUTIONS ENGINEER): Controlled. Continue home keppra & oxcarbazapine. Assessment [...] on gabapentin patient was previously followed at [facility] in [facility]. Plans continue gabapentin this time Assessment & Plan (10/18/2017 5:56 PM SOLUTIONS ENGINEER): Self-reported, patient was referred to neurology 2 months ago immediately after she reported a seizure. Patient did not mellisa appt with neurology, patient encouraged to comply. Personality disorder 07/20/2017 Assessment & Plan (03/19/2018 2:33 PM CDT): Psychiatric referral made Assessment & Plan (10/18/2017 5:53 PM SOLUTIONS ENGINEER): Encouraged patient to f/u through with Psychiatry referral. Bipolar 1 disorder, depressed, mild 07/20/2017 Assessment & Plan (08/03/2022 3:17 PM SOLUTIONS ENGINEER): Symptoms controlled, cont home regimen of sertraline, Seroquel Assessment & Plan (08/02/2022 2:23 PM SOLUTIONS ENGINEER): Symptoms controlled, cont home regimen of sertraline, Seroquel Assessment & Plan (08/01/2022 10:56 AM SOLUTIONS ENGINEER): Symptoms controlled, cont home regimen of sertraline, Seroquel Assessment & Plan (07/31/2022 1:51 PM SOLUTIONS ENGINEER): Symptoms controlled, cont home regimen of sertraline, Seroquel Assessment & Plan (07/30/2022 1:33 PM SOLUTIONS ENGINEER): Symptoms controlled, cont home regimen of sertraline, Seroquel Assessment & Plan (07/29/2022 2:42 PM SOLUTIONS ENGINEER): Symptoms controlled, cont home regimen of sertraline, Seroquel Assessment & Plan (07/27/2022 8:23 PM SOLUTIONS ENGINEER): Symptoms controlled, cont home regimen of sertraline, [...] hallucinations. Assessment & Plan (10/18/2017 5:53 PM SOLUTIONS ENGINEER): Rx refills given. Encouraged patient to f/u [...] therapy Assessment & Plan (10/18/2017 5:51 PM SOLUTIONS ENGINEER): Hypertension is improving with treatment. Continue current treatment regimen. Dietary sodium restriction. Weight loss. Continue current medications. Blood pressure will be reassessed at the next regular appointment. Insomnia 07/20/2017 Assessment & Plan (10/18/2017 5:52 PM SOLUTIONS ENGINEER): Will not fill both trazodone AND ambien, [...] 07/20/2017 Assessment & Plan (10/18/2017 5:56 PM SOLUTIONS ENGINEER): Encouraged patient to follow through with nephrology referral she was given 2 months ago. Referral re-printed. Class 3 severe obesity with body mass index (BMI) greater than or equal to 70 in adult 07/20/2017 Assessment & Plan (08/03/2022 3:26 PM SOLUTIONS ENGINEER): Pt with severe obesity, complicated by SHELDON/OHS. Leg fractures in 2020 managed nonoperatively, pt has been bed bound and living in SNF since that time. Assessment & Plan (08/02/2022 2:23 PM SOLUTIONS ENGINEER): Pt with severe obesity, complicated by SHELDON/OHS. Leg fractures in 2020 managed nonoperatively, pt has been bed bound and living in SNF since that time. Assessment & Plan (08/01/2022 10:56 AM SOLUTIONS ENGINEER): Pt with severe obesity, complicated by SHELDON/OHS. Leg fractures in 2020 managed nonoperatively, pt has been bed bound and living in SNF since that time. Assessment & Plan (07/31/2022 1:51 PM SOLUTIONS ENGINEER): Pt with severe obesity, complicated by SHELDON/OHS. Leg fractures in 2020 managed nonoperatively, pt has been bed bound and living in SNF since that time. Assessment & Plan (07/30/2022 1:33 PM SOLUTIONS ENGINEER): Pt with severe obesity, complicated by SHELDON/OHS. Leg fractures in 2020 managed nonoperatively, pt has been bed bound and living in SNF since that time. Assessment & Plan (07/27/2022 8:25 PM SOLUTIONS ENGINEER): Pt with severe obesity, complicated by SHELDON/OHS. [...] she informs me that Dr. Panda in [facility] is willing to move this pannus patient referred to this particular physician to address this problem soon as possible. 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 Assessment & Plan (10/18/2017 5:56 PM SOLUTIONS ENGINEER): Obesity is unchanged. Discussed the patient's BMI. The BMI is above average; BMI management plan is completed. General weight loss/lifestyle modification strategies discussed (elicit support from others; identify saboteurs; non-food rewards, etc). At high risk for complication of immobility Cellulitis of left lower extremity Pain and swelling of left lower leg Immunizations Immunization Administration Dates Next Due Influenza, [...] = 0.6 oz pur e alcohol) Occasional Unruly Utilities Answer Date Recorded In the past 12 months has [employer], gas, oil, or water company threatened to [...] often do you attend chur ch or orthodox services? Never 11/03/2024 Do you belong to any clubs o r organizations such as alevism groups, unions, fraternal or athletic groups, or [...] place to sleep or slept in a skilled nursing (including now)? No 07/30/2022 Housing Stability Vital Sign Answer Pepe e Recorded In the last 12 months, was t here a time when you were not able to pay the mortgage or rent on time? No 11/03/2024 In the past 12 months, how m any times have you moved where you were living? 0 11/03/2024 At any time in the past 12 m [facility], were you homeless or living in a skilled nursing (including now)? No 11/03/2024 Personal Safety Answer [...] Comments Blood Pressure 127/62 11/08/2024 4:00 AM SOLUTIONS ENGINEER Pulse 73 11/08/2024 4:00 AM SOLUTIONS ENGINEER Temperature 36.4 C (97.5 F) 11/07/2024 11:43 PM SOLUTIONS ENGINEER Respiratory Rate 18 11/07/2024 11:4 3 PM SOLUTIONS ENGINEER Oxygen Saturation 94% 11/08/2024 4:00 AM SOLUTIONS ENGINEER Inhaled Oxygen Concentration - - Weight 165.6 kg (365 lb 1.3 oz) 11/07/2024 6:18 AM SOLUTIONS ENGINEER Height 170.2 cm (5' 7 ) 11/02/2024 8:0 0 PM SOLUTIONS ENGINEER Body Mass Index 57.18 11/02/2024 8:00 PM SOLUTIONS ENGINEER Results * (ABNORMAL) POCT glucose (11/07/2024 4:07 PM SOLUTIONS ENGINEER) Glucose, POC 232(H) 70 - 199 mg/dL Blood 11/07/2024 4:07 PM SOLUTIONS ENGINEER 11/07/2024 4:07 PM SOLUTIONS ENGINEER us Marie Soto MD LAB POCT ORDERABLES - DEVICE Final Result Performing Organization Address City/[facility]/ZIP Co de Phone Number JOHAN ACOSTA ([place]) [address] [place] [address] * (ABNORMAL) POCT glucose (11/07/2024 12:17 PM SOLUTIONS ENGINEER) Glucose, POC 204(H) 70 - 199 mg/dL Blood 11/07/2024 12:1 7 PM SOLUTIONS ENGINEER 11/07/2024 12:17 PM SOLUTIONS ENGINEER Marie Soto MD LAB POCT ORDERABLES - DEVICE Final Result Performing Organization Address [facility] Co de Phone Number JOHAN ACOSTA ([place]) 1 [facility] [place] [place] [address] * (ABNORMAL) POCT glucose (11/07/2024 9:25 AM SOLUTIONS ENGINEER) Glucose, POC 235(H) 70 - 199 mg/dL Blood 11/07/2024 9:25 AM SOLUTIONS ENGINEER 11/07/2024 9:25 AM SOLUTIONS ENGINEER Marie Soto MD LAB POCT ORDERABLES - DEVICE Final Result Performing Organization Address [facility] Co de Phone Number [facility] ([place]) 1 [facility] [place] [place] [address] * (ABNORMAL) POCT glucose (11/07/2024 7:43 AM SOLUTIONS ENGINEER) Glucose, POC 218(H) 70 - 199 mg/dL Blood 11/07/2024 7:43 AM SOLUTIONS ENGINEER 11/07/2024 7:43 AM SOLUTIONS ENGINEER us Marie Soto MD LAB POCT ORDERABLES - DEVICE Final Result Performing Organization Address City/[facility]/ZIP Co de Phone Number [facility] ([place]) [address] [facility] [place] [place] [address] * POCT glucose (11/07/2024 3:26 AM SOLUTIONS ENGINEER) [facility] Glucose, POC 177 70 - 199 mg/dL Blood 11/07/2024 3:26 AM SOLUTIONS ENGINEER 11/07/2024 3:26 AM SOLUTIONS ENGINEER us Eliazar Neal II, MD LAB POCT ORDERABLES - DEVICE Final Result Performing Organization Address City/[facility]/ZIP Co de Phone Number JOHAN ACOSTA ([place]) [address] [place] [address] [place] [address] * (ABNORMAL) eGFR (11/07/2024 2:34 AM SOLUTIONS ENGINEER) [facility] eGFR 8(L) >=60 mL/min/1. 73 m2 Comment: [...] of Race in Diagnosing Kidney Disease, JASN 202). The CKD-EPI equation should not be used for patients with unstable renal function and has not been validated in children and those over 70. Current interpretive data was last reviewed 2021. Blood 11/07/2024 2:3 4 AM SOLUTIONS ENGINEER 11/07/2024 4:29 AM SOLUTIONS ENGINEER us Marek Pierre MD LAB BLOOD ORDERABLES Final Resu lt Performing Organization Address City/[facility]/ZIP Co de Phone Number [facility] (FAN) 1 [facility] [place] [address] * (ABNORMAL) Comprehensive metabolic panel (11/07/2024 2:34 AM SOLUTIONS ENGINEER) Sodium 139 135 - 145 mmol/L Potassium, [...] Hemolyzed S pecimen Blood 11/07/2024 2:34 AM SOLUTIONS ENGINEER 11/07/2024 4:29 AM SOLUTIONS ENGINEER us Marek Pierre MD LAB BLOOD ORDERABLES Final Resu lt [facility] (FAN) [address] [place] [address] * (ABNORMAL) POCT glucose (11/06/2024 11:15 PM SOLUTIONS ENGINEER) Glucose, POC 239(H) 70 - 199 mg/dL Blood 11/06/2024 11:1 5 PM SOLUTIONS ENGINEER 11/06/2024 11:15 PM SOLUTIONS ENGINEER Eliazar Neal II, MD LAB POCT ORDERABLES - DEVICE Final Result JOHAN ACOSTA ([place]) [address] [place] [address] * (ABNORMAL) POCT glucose (11/06/2024 8:00 PM SOLUTIONS ENGINEER) Glucose, POC 303(H) 70 - 199 mg/dL Blood 11/06/2024 8:00 PM SOLUTIONS ENGINEER 11/06/2024 8:00 PM SOLUTIONS ENGINEER Eliazar Neal II, MD LAB POCT ORDERABLES - DEVICE Final Result Performing Organization Address City/[facility]/ZIP Co de Phone Number JOHAN ACOSTA ([place]) [address] [place] [address] * (ABNORMAL) POCT glucose (11/06/2024 6:20 PM SOLUTIONS ENGINEER) Glucose, POC 308(H) 70 - 199 mg/dL Blood 11/06/2024 6:20 PM SOLUTIONS ENGINEER 11/06/2024 6:20 PM SOLUTIONS ENGINEER Eliazar Neal II, MD LAB POCT ORDERABLES - DEVICE Final Result Performing Organization Address City/[facility]/ZIP Co de Phone Number JOHAN ACOSTA ([place]) [address] [place] [address] * (ABNORMAL) POCT glucose (11/06/2024 5:18 PM SOLUTIONS ENGINEER) Glucose, POC 310(H) 70 - 199 mg/dL Blood 11/06/2024 5:18 PM SOLUTIONS ENGINEER 11/06/2024 5:18 PM SOLUTIONS ENGINEER Eliazar Neal II, MD LAB POCT ORDERABLES - DEVICE Final Result Performing Organization Address City/[facility]/ZIP Co de Phone Number JOHAN ACOSTA ([place]) 1 [facility] [place] [place] [address] * POCT glucose (11/06/2024 12:16 PM SOLUTIONS ENGINEER) Glucose, POC 195 70 - 199 mg/dL Blood 11/06/2024 12:1 6 PM SOLUTIONS ENGINEER 11/06/2024 12:16 PM SOLUTIONS ENGINEER Eliazar Neal II, MD LAB POCT ORDERABLES - DEVICE Final Result Performing Organization Address City/[facility] Co de Phone Number JOHAN ACOSTA ([place]) 1 [facility] [place] [address] * (ABNORMAL) eGFR (11/06/2024 7:34 AM SOLUTIONS ENGINEER) Pathologist [facility] eGFR 10(L) >=60 mL/min/1. 73 m2 Comment: [...] last reviewed 2021. Blood 11/06/2024 7:34 AM SOLUTIONS ENGINEER 11/06/2024 8:18 AM SOLUTIONS ENGINEER us Marek Pierre MD LAB BLOOD ORDERABLES Final Resu lt [facility] (FAN) 1 [facility] [place] [address] * Differential, auto (11/06/2024 7:34 AM SOLUTIONS ENGINEER) Neutrophil abs 5.0 1.5 - 6.5 K/cumm [...] revised on 2017. Blood 11/06/2024 7:34 AM SOLUTIONS ENGINEER 11/06/2024 8:18 AM SOLUTIONS ENGINEER us Eliazar Neal II, MD LAB BLOOD ORDERABLES F inal Result [facility] (FAN) 1 [facility] [place] [address] * (ABNORMAL) CBC with auto differential (11/06/2024 7:34 AM SOLUTIONS ENGINEER) WBC 6.9 3.8 - 9.9 K/cumm Hgb 8.5(L) 11.9 - 15.5 g/dL [facility] ([place]AN) Hct 27.0(L) 35.6 - 45.5 % [facility] ([place]AN) Plt 124(L) 150 - 400 [...] [facility] ([place]AN) Blood 11/06/2024 7:34 AM SOLUTIONS ENGINEER 11/06/2024 8:18 AM SOLUTIONS ENGINEER us Eliazar Neal II, MD LAB BLOOD ORDERABLES F inal Result [facility] (FAN) 1 [facility] Department [place] [address] * (ABNORMAL) Comprehensive metabolic panel (11/06/2024 7:34 AM SOLUTIONS ENGINEER) Sodium 138 135 - 145 mmol/L Potassium, pl 5.3(H) 3.3 - 4.9 mmol/L [facility] ([place]AN) Chloride 100 97 - 110 mmol/L [facility] ([place]AN) CO2 24 22 - 32 mmol/L [facility] ([place]AN) Anion gap 14 2 - 15 mmol/L [facility] ([place]) BUN 64(H) 6 - 25 [...] [facility] ([place]AN) Blood 11/06/2024 7:34 AM SOLUTIONS ENGINEER 11/06/2024 8:18 AM SOLUTIONS ENGINEER us Marek Pierre MD LAB BLOOD ORDERABLES Final Resu lt Performing Organization Address City/[facility]/ZIP Co de Phone Number JOHAN ACOSTA ([place]) 1 [facility] [place] [address] * POCT glucose (11/06/2024 7:23 AM SOLUTIONS ENGINEER) Glucose, POC 166 70 - 199 mg/dL Blood 11/06/2024 7:23 AM SOLUTIONS ENGINEER 11/06/2024 7:23 AM SOLUTIONS ENGINEER us Eliazar Neal II, MD LAB POCT ORDERABLES - DEVICE Final Result Performing Organization Address [facility] Co de Phone Number JOHAN ACOSTA ([place]) 1 [facility] [place] [place] [address] * (ABNORMAL) POCT glucose (11/06/2024 4:16 AM SOLUTIONS ENGINEER) Glucose, POC 203(H) 70 - 199 mg/dL Blood 11/06/2024 4:16 AM SOLUTIONS ENGINEER 11/06/2024 4:16 AM SOLUTIONS ENGINEER us Eliazar Neal II, MD LAB POCT ORDERABLES - DEVICE Final Result Performing Organization Address [facility] Co de Phone Number JOHAN ACOSTA ([place]) 1 [facility] [place] [address] * POCT glucose (11/05/2024 11:46 PM SOLUTIONS ENGINEER) Glucose, POC 141 70 - 199 mg/dL Blood 11/05/2024 11:4 6 PM SOLUTIONS ENGINEER 11/05/2024 11:46 PM SOLUTIONS ENGINEER us Eliazar Neal II, MD LAB POCT ORDERABLES - DEVICE Final Result Performing Organization Address City/[facility]/ZIP Co de Phone Number JOHAN ACOSTA ([place]) 1 [facility] [place] [place] [address] * POCT glucose (11/05/2024 8:19 PM SOLUTIONS ENGINEER) Glucose, POC 167 70 - 199 mg/dL Blood 11/05/2024 8:19 PM SOLUTIONS ENGINEER 11/05/2024 8:19 PM SOLUTIONS ENGINEER us Eliazar Neal II, MD LAB POCT ORDERABLES - DEVICE Final Result Performing Organization Address [facility] de Phone Number JOHNA KARLA ([place]) 1 [facility] [place] [place] [address] * (ABNORMAL) POCT glucose (11/05/2024 5:21 PM SOLUTIONS ENGINEER) Glucose, POC 230(H) 70 - 199 mg/dL Blood 11/05/2024 5:21 PM SOLUTIONS ENGINEER 11/05/2024 5:21 PM SOLUTIONS ENGINEER us Eliazar Neal II, MD LAB POCT ORDERABLES - DEVICE Final Result Performing Organization Address [facility] Co de Phone Number JOHAN KARLA ([place]) 1 [facility] [place] [place] [address] * (ABNORMAL) POCT glucose (11/05/2024 11:41 AM SOLUTIONS ENGINEER) Glucose, POC 214(H) 70 - 199 mg/dL Blood 11/05/2024 11:4 1 AM SOLUTIONS ENGINEER 11/05/2024 11:41 AM SOLUTIONS ENGINEER us Eliazar Neal II, MD LAB POCT ORDERABLES - DEVICE Final Result Performing Organization Address City/[facility]/ZIP Co de Phone Number JOHAN ACOSTA ([place]) 1 [facility] [place] [place] [address] * (ABNORMAL) POCT glucose (11/05/2024 7:41 AM SOLUTIONS ENGINEER) Glucose, POC 219(H) 70 - 199 mg/dL Blood 11/05/2024 7:41 AM SOLUTIONS ENGINEER 11/05/2024 7:41 AM SOLUTIONS ENGINEER us Eliazar Neal II, MD LAB POCT ORDERABLES - DEVICE Final Result [facility] ([place]) [address] [place] [address] * (ABNORMAL) eGFR (11/05/2024 7:24 AM SOLUTIONS ENGINEER) Pathologist [facility] eGFR 12(L) >=60 mL/min/1. 73 m2 Comment: [...] last reviewed 2021. Blood 11/05/2024 7:24 AM SOLUTIONS ENGINEER 11/05/2024 7:48 AM SOLUTIONS ENGINEER us Marek Pierre MD LAB BLOOD ORDERABLES Final Resu lt [facility] ([place]) 1 [facility] [place] [address] * (ABNORMAL) Differential, auto (11/05/2024 7:24 AM SOLUTIONS ENGINEER) Neutrophil abs 6.0 1.5 - 6.5 K/cumm [...] revised on 2017. Blood 11/05/2024 7:24 AM SOLUTIONS ENGINEER 11/05/2024 7:48 AM SOLUTIONS ENGINEER Eliazar Neal II, MD LAB BLOOD ORDERABLES F inal Result Performing Organization Address City/[facility]/ZIP Co de Phone Number [facility] (FAN) 1 [facility] [place] [address] * (ABNORMAL) CBC with auto differential (11/05/2024 7:24 AM SOLUTIONS ENGINEER) WBC 6.7 3.8 - 9.9 K/cumm Hgb [...] 14.9 % [facility] ([place]) RDW SD 54.4(H) 35.7 - 48.1 fL [facility] ([place]) NRBC abs 0.00 0.00 - 0.01 K/cumm [facility] ([place]AN) Blood 11/05/2024 7:24 AM SOLUTIONS ENGINEER 11/05/2024 7:48 AM SOLUTIONS ENGINEER us Eliazar Neal II, MD LAB BLOOD ORDERABLES F inal Result Performing Organization Address City/[facility] Co de Phone Number [facility] ([place]AN) [address] [place] [address] * Lipid panel (11/05/2024 7:24 AM SOLUTIONS ENGINEER) Cholesterol 184 30 - 199 mg/dL Comment: [...] on 2018. Triglycerides 136 <=149 mg/dL JOHAN ACOSTA (FAN) Comment: Interpretive Data [...] NCEP Expert Panel. Circulation 2004;110:227 3. Gurpreet M et al. DARIN Cardiol. 2020 January 11;5(5):540-548. doi: 10.1001/jamacardio.2020.0013 Current Interpretive Data was last revised on 2024. Non-HDL Cholesterol 134 mg/dL JOHAN SANCHEZ) Comment: Interpretive Data Ages < or = [...] last revised on 2018. Chol/HDL ratio 4 YELENA ACOSTA (FAN) Blood 11/05/2024 7:24 AM SOLUTIONS ENGINEER 11/05/2024 7:48 AM SOLUTIONS ENGINEER us Eliazar Neal II, MD LAB BLOOD ORDERABLES F inal Result JOHAN ACOSTA ([place]AN) 1 [facility] [place] [address] * (ABNORMAL) Comprehensive metabolic panel (11/05/2024 7:24 AM SOLUTIONS ENGINEER) Sodium 139 135 - 145 mmol/L Potassium, [...] Hemolyzed S pecimen Blood 11/05/2024 7:24 AM SOLUTIONS ENGINEER 11/05/2024 7:48 AM SOLUTIONS ENGINEER us Marek Pierre MD LAB BLOOD ORDERABLES Final Resu lt [facility] ([place]) 1 [facility] [place] [address] * (ABNORMAL) POCT glucose (11/05/2024 3:44 AM SOLUTIONS ENGINEER) Glucose, POC 269(H) 70 - 199 mg/dL Blood 11/05/2024 3:44 AM SOLUTIONS ENGINEER 11/05/2024 3:44 AM SOLUTIONS ENGINEER Eliazar Neal II, MD LAB POCT ORDERABLES - DEVICE Final Result [facility] ([place]) 1 [facility] [place] [place] [address] * (ABNORMAL) POCT glucose (11/04/2024 11:55 PM SOLUTIONS ENGINEER) Glucose, POC 254(H) 70 - 199 mg/dL Blood 11/04/2024 11:5 5 PM SOLUTIONS ENGINEER 11/04/2024 11:55 PM SOLUTIONS ENGINEER Eliazar Neal II, MD LAB POCT ORDERABLES - DEVICE Final Result Performing Organization Address City/[facility]/ZIP Co de Phone Number [facility] ([place]) 1 [facility] [place] [place] [address] * (ABNORMAL) POCT glucose (11/04/2024 7:59 PM SOLUTIONS ENGINEER) Glucose, POC 284(H) 70 - 199 mg/dL Blood 11/04/2024 7:59 PM SOLUTIONS ENGINEER 11/04/2024 7:59 PM SOLUTIONS ENGINEER lEiazar Neal II, MD LAB POCT ORDERABLES - DEVICE Final Result Performing Organization Address City/[facility]/ZIP Co de Phone Number [facility] ([place]) 1 [facility] [place] [place] [address] * (ABNORMAL) POCT glucose (11/04/2024 4:10 PM SOLUTIONS ENGINEER) Glucose, POC 350(H) 70 - 199 mg/dL Blood 11/04/2024 4:10 PM SOLUTIONS ENGINEER 11/04/2024 4:10 PM SOLUTIONS ENGINEER Eliazar Neal II, MD LAB POCT ORDERABLES - DEVICE Final Result JOHAN ACOSTA ([place]) 1 [facility] [place] [place] [address] * POCT glucose (11/04/2024 1:01 PM SOLUTIONS ENGINEER) Glucose, POC 185 70 - 199 mg/dL Blood 11/04/2024 1:01 PM SOLUTIONS ENGINEER 11/04/2024 1:01 PM SOLUTIONS ENGINEER us Eliazar Neal II, MD LAB POCT ORDERABLES - DEVICE Final Result Performing Organization Address City/[facility] Co de Phone Number JOHAN ACOSTA ([place]) 1 [facility] [place] [place] [address] * (ABNORMAL) eGFR (11/04/2024 8:30 AM SOLUTIONS ENGINEER) eGFR 9(L) >=60 mL/min/1. 73 m2 Comment: [...] last reviewed 2021. Blood 11/04/2024 8:30 AM SOLUTIONS ENGINEER 11/04/2024 8:43 AM SOLUTIONS ENGINEER us Marek Pierre MD LAB BLOOD ORDERABLES Final Resu lt JOHAN ACOSTA FAN) 1 [facility] [place] [place] [address] * Hepatitis B surface antibody (immune status) Blood (11/04/2024 8:30 AM SOLUTIONS ENGINEER) HBsAb (immune status) Nonreactive Comment: Interpretive Data [...] last revised on 19. Testing performed by: [address], [address] Blood 11/04/2024 8:30 AM SOLUTIONS ENGINEER 11/04/2024 11:08 AM SOLUTIONS ENGINEER us Miguel Jamison MD LAB MICROBIOLOGY - GENER AL ORDERABLES Final Result Performing Organization Address [facility] de Phone Number JOHAN ACOSTA ([place]) [address] [place] [address] [place] [address] * Hepatitis B Surface Antigen Blood (11/04/2024 8:30 AM SOLUTIONS ENGINEER) HepBsAg Nonreactive Nonreactive Comment:Testing performed by : [address] [address] Blood 11/04/2024 8:30 AM SOLUTIONS ENGINEER 11/04/2024 11:08 AM SOLUTIONS ENGINEER us Miguel Jamison MD LAB MICROBIOLOGY - GENER AL ORDERABLES Final Result [facility] ([place]) 1 [facility] [place] [address] * (ABNORMAL) Comprehensive metabolic panel (11/04/2024 8:30 AM SOLUTIONS ENGINEER) Sodium 133(L) 135 - 145 mmol/L Potassium, pl 5.4(H) 3.3 - 4.9 mmol/L [facility] ([place]) Chloride 94(L) 97 - 110 mmol/L [facility] ([place]) CO2 25 22 - 32 mmol/L [facility] ([place]) Anion gap 14 2 - 15 mmol/L [facility] ([place]) BUN 58(H) 6 - 25 mg/dL [facility] ([place]) Creatinine 5.23(H) 0.60 - 1.10 mg/dL [facility] ([place]) Glucose 254(H) 70 - 199 mg/dL [facility] ([place]) [...] [facility] ([place]) Blood 11/04/2024 8:30 AM SOLUTIONS ENGINEER 11/04/2024 8:43 AM SOLUTIONS ENGINEER us Marek Pierre MD LAB BLOOD ORDERABLES Final Resu lt [facility] ([place]) 1 [facility] [place] [address] * (ABNORMAL) POCT glucose (11/04/2024 7:26 AM SOLUTIONS ENGINEER) Glucose, POC 240(H) 70 - 199 mg/dL Blood 11/04/2024 7:26 AM SOLUTIONS ENGINEER 11/04/2024 7:26 AM SOLUTIONS ENGINEER us Eliazar Neal II, MD LAB POCT ORDERABLES - DEVICE Final Result Performing Organization Address [facility] Co de Phone Number [facility] ([place]) 1 [facility] [place] [address] * (ABNORMAL) POCT glucose (11/04/2024 4:35 AM SOLUTIONS ENGINEER) Glucose, POC 244(H) 70 - 199 mg/dL Blood 11/04/2024 4:35 AM SOLUTIONS ENGINEER 11/04/2024 4:35 AM SOLUTIONS ENGINEER Kimmy Velez MD LAB POCT ORDERABLES - DEVICE F inal Result Performing Organization Address [facility] Co de Phone Number [facility] ([place]) 1 [facility] [place] [address] * (ABNORMAL) POCT glucose (11/04/2024 2:01 AM SOLUTIONS ENGINEER) Glucose, POC 228(H) 70 - 199 mg/dL Blood 11/04/2024 2:01 AM SOLUTIONS ENGINEER 11/04/2024 2:01 AM SOLUTIONS ENGINEER Kimmy Velez MD LAB POCT ORDERABLES - DEVICE F inal Result Performing Organization Address City/[facility]/ZIP Co de Phone Number [facility] ([place]) [address] [place] [address] * (ABNORMAL) POCT glucose (11/03/2024 8:36 PM SOLUTIONS ENGINEER) Glucose, POC 285(H) 70 - 199 mg/dL Blood 11/03/2024 8:36 PM SOLUTIONS ENGINEER 11/03/2024 8:36 PM SOLUTIONS ENGINEER us Kimmy Velez MD LAB POCT ORDERABLES - DEVICE F inal Result [facility] ([place]) 1 [place] [address] * (ABNORMAL) POCT glucose (11/03/2024 4:18 PM SOLUTIONS ENGINEER) Glucose, POC 254(H) 70 - 199 mg/dL Blood 11/03/2024 4:18 PM SOLUTIONS ENGINEER 11/03/2024 4:18 PM SOLUTIONS ENGINEER us Marek Pierre MD LAB POCT ORDERABLES - DEVICE Fi nal Result Performing Organization Address City/[facility]/ZIP Co de Phone Number [facility] ([place]) 1 [facility] [place] [address] * (ABNORMAL) POCT glucose (11/03/2024 12:54 PM SOLUTIONS ENGINEER) Glucose, POC 207(H) 70 - 199 mg/dL Blood 11/03/2024 12:5 4 PM SOLUTIONS ENGINEER 11/03/2024 12:54 PM SOLUTIONS ENGINEER Marek Pierre MD LAB POCT ORDERABLES - DEVICE Fi nal Result Performing Organization Address City/[facility]/ZIP Co de Phone Number [facility] ([place]) 1 [facility] [place] [address] * POCT glucose (11/03/2024 8:00 AM SOLUTIONS ENGINEER) Glucose, POC 137 70 - 199 mg/dL Blood 11/03/2024 8:00 AM SOLUTIONS ENGINEER 11/03/2024 8:00 AM SOLUTIONS ENGINEER Marek Pierre MD LAB POCT ORDERABLES - DEVICE Fi nal Result JOHAN ACOSTA ([place]AN) 1 [facility] Department [place] [address] * Blood culture Blood (11/03/2024 4:51 AM SOLUTIONS ENGINEER) Report Final Report: No growth Comment:Testing performed by : [facility], 1 [facility], [place]., [address] Blood 11/03/2024 4:51 AM SOLUTIONS ENGINEER 11/03/2024 8:08 AM SOLUTIONS ENGINEER Narrative JOHAN ACOSTA (FAN) - 11/07/2024 12:00 PM SOLUTIONS ENGINEER 1. Blood cultures are incubated for 4 [...] performance characteristics have been verified by the [facility]. For questions about this culture, contact the Microbiology Laboratory at [phone]. Interpretive data was last revised on 24. us Norm Resendiz MD LAB MICROBIOLOGY - GENERAL O RDERABLES Final Result JOHAN ACOSTA ([place]) 1 [facility] [place] [address] * POCT glucose (11/03/2024 4:13 AM SOLUTIONS ENGINEER) Glucose, POC 134 70 - 199 mg/dL Blood 11/03/2024 4:13 AM SOLUTIONS ENGINEER 11/03/2024 4:13 AM SOLUTIONS ENGINEER Marek Pierre MD LAB POCT ORDERABLES - DEVICE Fi nal Result Performing Organization Address [facility] Co de Phone Number JOHAN ACOSTA ([place]) 1 [place] [address] * POCT glucose (11/03/2024 12:40 AM SOLUTIONS ENGINEER) Glucose, POC 151 70 - 199 mg/dL Blood 11/03/2024 12:4 0 AM SOLUTIONS ENGINEER 11/03/2024 12:40 AM SOLUTIONS ENGINEER Marek Pierre MD LAB POCT ORDERABLES - DEVICE Fi nal Result Performing Organization Address [facility] Co de Phone Number JOHAN ACOSTA ([place]) 1 [facility] [place] [address] * DE CRITICAL CARE ILL/INJURED PATIENT INIT 30-74 MIN (11/02/2024 10:16 PM SOLUTIONS ENGINEER) Narrative Norm Resendiz MD - 11/02/2024 10:16 PM SOLUTIONS ENGINEER Norm Resendiz MD 11/02/2024 10:16 PM Critical [...] Result * Critical Care (11/02/2024 9:53 PM SOLUTIONS ENGINEER) Narrative Lorena Tobar MD - 11/02/2024 9:53 PM SOLUTIONS ENGINEER Lorena Tobar MD 11/03/2024 12:55 AM Critical [...] plan with the ICU team and other medical/strategic consultant staff, making frequent assessments and decisions [...] spent time documenting in the medical record us Lorena Tobar MD IN CLINIC/BEDSIDE ORDERABLES Final Result * (ABNORMAL) Influenza A/B, RSV, and COVID-19 PCR Nasopharyngeal (11/02/2024 9:50 PM SOLUTIONS ENGINEER) COVID-19 RNA Negative Negative Influenza A RNA Positive(A) Negative CE [facility] ([place]) Influenza B RNA Negative Negative [facility] ([place]) RSV RNA Negative Negative CERNER [facility] ([place]) Comment: Interpretive data: Testing performed by [facility]. This test is performed using the [employer] Xpert Xpress CoV-2/Flu/RSV plus assay. This is a multiplex, real- time reverse transcriptase PCR assay intended for the qualitative detection of nucleic acid from SARS-CoV-2, influenza A, influenza B, and respiratory syncytial virus. This assay has been cleared by the [place] Food and Drug administration. The performance characteristics have been verified by the [facility]. Results must be considered in the clinical context, and a negative result does not rule out infection. Interpretive Data last revised 2023 Nasopharyngeal 11/02/2024 9: 50 PM SOLUTIONS ENGINEER 11/02/2024 9:58 PM SOLUTIONS ENGINEER Narrative [facility] ([place]) - 11/02/2024 10:41 PM SOLUTIONS ENGINEER Is the Patient experiencing symptoms consistent with COVID?->Unknown Lorena Tobar MD LAB MICROBIOLOGY - GENERAL O RDERABLES Final Result Performing Organization Address [facility]/ZIP Co de Phone Number [facility] ([place]) 1 [facility] Department [place] [address] * POCT glucose (11/02/2024 9:29 PM SOLUTIONS ENGINEER) Pathologist [facility] Glucose, POC 133 70 - 199 mg/dL Blood 11/02/2024 9:29 PM SOLUTIONS ENGINEER 11/02/2024 9:29 PM SOLUTIONS ENGINEER Marek Pierre MD LAB POCT ORDERABLES - DEVICE Fi nal Result Performing Organization Address [facility]/ZIP Co de Phone Number [facility] ([place]) 1 [place] [address] * (ABNORMAL) Troponin T high-sensitivity 6-hour (11/02/2024 8:58 PM SOLUTIONS ENGINEER) Trop T hs 145(H) <=14 ng/L Comment: Interpretive Data For further hscTnT resources including the diagnostic algorithm and an aid in interpretation, copy and paste this link: https://nrl.testcatalog.org/show/hsTrop Current Interpretive Data last revised 2020. Trop T hs delta See Comment ng/L CE RNMELISSA ACOSTA ([place]) Comment:Inappropriate collec tion time to report a delta. Trop T hs pct delta See Comment % NATANAELWON ACOSTA ([place]) Comment:Inappropriate collec tion time to report a delta. Trop T hs interp See Comment C ERNMELISSA ACOSTA ([place]) Comment:Inappropriate collec tion time to report a delta. Blood 11/02/2024 8:58 PM SOLUTIONS ENGINEER 11/02/2024 9:05 PM SOLUTIONS ENGINEER us Norm Resendiz MD LAB BLOOD ORDERABLES Final R esult JOHAN KARLA ([place]) 1 [facility] Department [place] [address] * (ABNORMAL) Blood culture Blood (11/02/2024 8:58 PM SOLUTIONS ENGINEER) Direct Specimen Exam Molecular Analysis: Staphylococcus epidermidis (methicillin-resis tant) detected by gui [employer]Plex BCID-GP panel. Single positive culture may represent contamination. This test does not exclude the possibility of a mixed bacterial infection. Notification of: Staphylococcus epidermidis (methicillin-resis tant) called to and read back by: Alaina Caputo MLT [phone] on 11/03/2024 23:52:59 by: Thuy Stanford MT Notification of: Staphylococcus epidermidis (methicillin-resis tant) called to and read back by: Korina Kerr [facility] on 11/03/2024 23:55:52 by: Alaina Caputo MLT Comment:Testing performed by : [facility], 1 [facility] [place] [address] Direct Specimen Exam Stain: Gram Positive Cocci in clusters Time to culture positivity (aerobic media): 19.6 hours Notification of: Gram Positive Cocci in clusters called to and read back by: Alaina Caputo MLT ,[phone] on 11/03/2024 22:08:21 by: Lidia Hull MT Notification of: Gram Positive Cocci in clusters called to and read back by: Blayne Fang [facility] on 11/03/2024 22:14:55 by: Alaina Caputo [employer]PL[employer] JOHAN ACOSTA ([place]AN) Comment:Testing performed by : [facility], [address] [place] [address]., [address] Report Final Report: Staphylococcus epidermidis Single blood [...] JOHAN ACOSTA ([place]AN) Comment:Testing performed by : [facility], 1 [place]., [address] Organism STAPHYLOCOCCUS EPIDERMIDIS JOHAN ACOSTA ([place]) Organism STAPHYLOCOCCUS EPIDERMIDIS JOHAN ACOSTA ([place]AN) Blood 11/02/2024 8:58 PM SOLUTIONS ENGINEER 11/03/2024 1:25 AM SOLUTIONS ENGINEER Narrative JOHAN ACOSTA ([place]) - 11/08/2024 2:53 PM SOLUTIONS ENGINEER 1. Blood cultures are incubated for 4 [...] performance characteristics have been verified by the [facility]. For questions about this culture, contact the Microbiology Laboratory at [phone]. Interpretive data was last revised on 24. Norm Resendiz MD LAB MICROBIOLOGY - GENERAL O RDERABLES Final Result Performing Organization Address [facility] Co de Phone Number [facility] ([place] 1 [facility] [place] [address] * Blood gas, venous (11/02/2024 8:58 PM SOLUTIONS ENGINEER) pH, Venous 7.37 7.32 - 7.43 PCO2, Venous 48 40 - 50 mmHg [facility] PO2, Venous 146 mmHg CERNER A ([place]) Comment: Interpretive Data No reference range established. Current interpretive data was last revised 2017. HCO3 Venous, Calculated 26 20 - 30 mmol/L [facility] ([place]) BE, venous 1 mmol/L [facility] ([place]) Comment: Interpretive Data No Reference Range Established Current Interpretive Data was last revised on 2017. Blood 11/02/2024 8:58 PM SOLUTIONS ENGINEER 11/02/2024 9:05 PM SOLUTIONS ENGINEER Lorena Tobar MD LAB BLOOD ORDERABLES Final R esult Performing Organization Address [facility] Co de Phone Number [facility] ([place]) 1 [facility] [place] [address] * POCT glucose (11/02/2024 6:40 PM SOLUTIONS ENGINEER) Glucose, POC 122 70 - 199 mg/dL Blood 11/02/2024 6:40 PM SOLUTIONS ENGINEER 11/02/2024 6:40 PM SOLUTIONS ENGINEER Fuentes Persaud MD LAB POCT ORDERABLES - BRITTANY CE Final Result Performing Organization Address [facility]/ZIP Co de Phone Number JOHAN ACOSTA ([place]) 1 [facility] [place] [address] * (ABNORMAL) Urinalysis reflex to microscopic and culture Urine, in and out catheter (11/02/2024 2:26PM SOLUTIONS ENGINEER) Color, ur Yellow Clarity, ur Cloudy(A) Clear [...] tendency for uric acid stone formation. Source: [facility] Current Interpretive Data was last revised on 2017 Protein, ur ql 2+(A) Negative [facility]ERNE R [facility] ([place]) Glucose, ur ql Negative Negative [facility]ERNE R [facility] ([place]) Ketones, ur Negative Negative C[facility]ER A [facility] ([place]AN) Bilirubin, ur Negative Negative [facility] ([place]) Blood, ur 2+(A) Negative [facility] ([place]) Urobilinogen, ur <2.0 <2.0 mg/dL [facility] ([place]) Nitrite, ur Positive(A) Negative [facility] ([place]) Leukocyte esterase, ur 4+(A) Negative [facility] ([place]) UA reflex comment Reflex to microscopic UA will be performed. [facility] ([place]) Urine, in and out catheter 11/02/2024 2:26 PM SOLUTIONS ENGINEER 11/02/2024 2:30 PM SOLUTIONS ENGINEER us Norm Resendiz MD LAB MICROBIOLOGY - GENERAL O RDERABLES Final Result JOHAN ACOSTA ([place]) 1 [facility] [place] [address] * (ABNORMAL) Urinalysis, microscopic only (11/02/2024 2:26 PM SOLUTIONS ENGINEER) WBC, ur >50(A) 0 - 5 /HPF RBC, ur 21-50(A) 0 - 2 /HPF [facility] ([place]) Epithelial cells, squamous, ur 1-5 0 - 5 /HPF [facility] ([place]) Bacteria, ur Trace(A) [facility] ([place]) Culture Reflex Comment Reflex to urine culture will be performed. JOHAN [facility] ([place]) Urine, in and out catheter 11/02/2024 2:26 PM SOLUTIONS ENGINEER 11/02/2024 2:30 PM SOLUTIONS ENGINEER us Norm Resendiz MD LAB URINE ORDERABLES Final R esult JOHAN ACOSTA ([place]) 1 [facility] [place] [address] * (ABNORMAL) Urine culture Urine, in and out catheter (11/02/2024 2:26 PM SOLUTIONS ENGINEER) Report Final Report: Greater than or equal to 100,000 colonies/mL of Escherichia coli The susceptibility pattern of this Escherichia coli indicates the possible production of an extended spectrum beta lactamase (ESBL). Patients infected with ESBL-producing organisms require contact isolation precautions. For therapeutic options for this organism, please contact infectious diseases. (.) Comment:Testing performed by : [facility], 1 [facility] [place]., [address] Organism ESCHERICHIA COLI [facility]EL [facility] (FAN) Urine, in and out catheter 11/02/2024 2:26 PM SOLUTIONS ENGINEER 11/02/2024 6:13 PM SOLUTIONS ENGINEER Narrative [facility] ([place]AN) - 11/05/2024 2:02 PM SOLUTIONS ENGINEER Urine culture reflexed based upon urinalysis results. Testing performed by [facility] ([phone]) Organism Antibiotic Method Susceptibility Escherichia coli Ampicillin [...] - GENERAL O RDERABLES Final Result [facility] [place] 1 [facility] Department of Laboratories [place], [place] [id number] * XR Chest 1 View (11/02/2024 1:57 PM SOLUTIONS ENGINEER) Anatomical Region Laterality Modality Body, Chest N/A Computed Radiogr aphy 11/02/2024 2:23 PM SOLUTIONS ENGINEER Narrative 11/02/2024 2:34 PM SOLUTIONS ENGINEER EXAM DESCRIPTION: XR CHEST 1 VIEW REASON FOR STUDY: CHEST PAIN. Patient here for altered mental status. [facility] She has been lethargic today. She is [...] Adal Costa M.D. RB: NESHA Report ID: [id number] Reading Location: [id number] Procedure Note Adal Costa MD - 11/02/2024 EXAM DESCRIPTION: XR CHEST 1 VIEW REASON FOR STUDY: CHEST PAIN. Patient here for altered mental status. [facility].She has been lethargic today. She is unable [...] Adal Costa M.D. RB: NESHA Report ID: [id number] Reading Location: [id number] us Norm Resendiz MD IMG XR PROCEDURES Final Resu lt * (ABNORMAL) Troponin T high-sensitivity series (baseline, 2hr, 4hr, 6hr) (11/02/2024 1:54 PM SOLUTIONS ENGINEER) Pathologist [facility] Trop T hs 102(H) <=14 ng/L Comment: Interpretive Data For further hscTnT resources including the diagnostic algorithm and an aid in interpretation, copy and paste this link: https://nrl.testcatalog.org/show/hsTrop Current Interpretive Data last revised 2020. Blood 11/02/2024 1:54 PM SOLUTIONS ENGINEER 11/02/2024 1:56 PM SOLUTIONS ENGINEER Norm Resendiz MD LAB BLOOD ORDERABLES Final R esult JOHAN ACOSTA ([place]) [address] [place] [address] [place] [address] * Sepsis Lactate w/ Reflex (11/02/2024 1:54 PM SOLUTIONS ENGINEER) [facility] Sepsis Lactate 0.8 0.7 - 2.0 mmol/L Blood 11/02/2024 1:54 PM SOLUTIONS ENGINEER 11/02/2024 1:56 PM SOLUTIONS ENGINEER Norm Resendiz MD LAB BLOOD ORDERABLES Final R esult Performing Organization Address City/[facility] Co de Phone Number JOHAN ACOSTA ([place]) [address] [place] [address] [place] [address] * (ABNORMAL) eGFR (11/02/2024 1:54 PM SOLUTIONS ENGINEER) [facility] eGFR 11(L) >=60 mL/min/1. 73 m2 Comment: [...] last reviewed 2021. Blood 11/02/2024 1:54 PM SOLUTIONS ENGINEER 11/02/2024 1:56 PM SOLUTIONS ENGINEER us Norm Resendiz MD LAB BLOOD ORDERABLES Final R esult [facility] ([place]) 1 [facility] [place] [address] * (ABNORMAL) Differential, auto (11/02/2024 1:54 PM SOLUTIONS ENGINEER) Neutrophil abs 4.7 1.5 - 6.5 K/cumm [...] revised on 2017. Blood 11/02/2024 1:54 PM SOLUTIONS ENGINEER 11/02/2024 1:56 PM SOLUTIONS ENGINEER Norm Resendiz MD LAB BLOOD ORDERABLES Final R esult JOHAN KARLA ([place]) 1 [facility] [place] [address] * (ABNORMAL) Pro B-type natriuretic peptide (11/02/2024 1:54 PM SOLUTIONS ENGINEER) NT-proBNP 7,730(H) <=300 pg/mL Comment: Interpretive Comments: [...] Revised Date: 2018. Blood 11/02/2024 1:54 PM SOLUTIONS ENGINEER 11/02/2024 1:56 PM SOLUTIONS ENGINEER us Norm Resendiz MD LAB BLOOD ORDERABLES Final R esult [facility] ([place]) 1 [facility] [place] [address] * (ABNORMAL) CBC with auto differential (11/02/2024 1:54 PM SOLUTIONS ENGINEER) WBC 6.0 3.8 - 9.9 K/cumm Hgb [...] RDW SD 55.3(H) 35.7 - 48.1 fL [facility] ([place]) NRBC abs 0.00 0.00 - 0.01 K/cumm [facility] ([place]) Blood 11/02/2024 1:54 PM SOLUTIONS ENGINEER 11/02/2024 1:56 PM SOLUTIONS ENGINEER Norm Resendiz MD LAB BLOOD ORDERABLES Final R esult Performing Organization Address City/[facility]/ZIP Co de Phone Number JOHAN ACOSTA ([place]) 1 [facility] [place] [address] * Levetiracetam level (11/02/2024 1:54 PM SOLUTIONS ENGINEER) Levetiracetam (Keppra) 24.6 10.0 - 40.0 mcg/mL [facility] Comment: ADDITIONAL INFORMATION This test was developed and its performance characteristics determined by [facility] in a manner consistent with CLIA requirements. This test has not been cleared or approved by the U.S. Food and Drug Administration. Test Performed by: [facility] - [place] [id number] [address] [place]: Nelson Calixto Ph.D.; CLIA# [id number] Blood 11/02/2024 1:54 PM SOLUTIONS ENGINEER 11/02/2024 2:02 PM SOLUTIONS ENGINEER Norm Resendiz MD LAB BLOOD ORDERABLES Final R esult Performing Organization Address City/[facility]/ZIP Co de Phone Number JOHAN ACOSTA ([place]) 1 [facility] [place] [address] [place] ref Lab * aPTT (11/02/2024 1:54 PM SOLUTIONS ENGINEER) aPTT 30 28 - 38 sec JOHAN ACOSTA ([place]) Comment: Interpretive Data Heparin therapeutic range: 66.0 - 100.0 seconds. Range based on correlation with therapeutic heparin activity range of 0.3 - 0.7 Units/mL. Current interpretive data was last revised on 2023. Blood 11/02/2024 1:54 PM SOLUTIONS ENGINEER 11/02/2024 1:56 PM SOLUTIONS ENGINEER Norm Resendiz MD LAB BLOOD ORDERABLES Final R esult Performing Organization Address [facility] Co de Phone Number JOHAN [facility] ([place]) 1 [facility] [place] [address] * Protime-INR (11/02/2024 1:54 PM SOLUTIONS ENGINEER) PT 10.2 9.7 - 13.0 sec [facility] ([place]) INR 0.95 0.90 - 1.20 [facility] ([place]) Comment: Interpretive data Oral anticoagulant therapeutic ranges: Venous thromboembolism prophylaxis or treatment: 2.0-3.0 CARDIOLOGY Standard range: 2.0-3.0 High-intensity range: 2.5-3.5 Refer to indication-specific guidelines for appropriate target ranges for prosthetic heart valve replacement. Current interpretive data was last revised on 2019. Blood 11/02/2024 1:54 PM SOLUTIONS ENGINEER 11/02/2024 1:56 PM SOLUTIONS ENGINEER Norm Resendiz MD LAB BLOOD ORDERABLES Final R esult Performing Organization Address City/[facility] Co de Phone Number JOHAN [facility] ([place]) 1 [facility] [place] [address] * Magnesium (11/02/2024 1:54 PM SOLUTIONS ENGINEER) Magnesium 1.8 1.4 - 2.5 mg/dL Blood 11/02/2024 1:54 PM SOLUTIONS ENGINEER 11/02/2024 1:56 PM SOLUTIONS ENGINEER Norm Resendiz MD LAB BLOOD ORDERABLES Final R esult Performing Organization Address City/[facility] Co de Phone Number JOHAN ACOSTA ([place]) 1 [facility] [place] [address] * (ABNORMAL) Blood gas, venous (11/02/2024 1:54 PM SOLUTIONS ENGINEER) pH, Venous 7.25(L) 7.32 - 7.43 PCO2, Venous 70(C) 40 - 50 mmHg JOHAN [facility] ([place]) Comment:Critical result call ed to and read back by SUKHWINDER NEWBERRY (ER) on 11/02/2024 14:02:43 SOLUTIONS ENGINEER to BLAYNE HALEY. PO2, Venous 58 mmHg JOHAN Ho ([place]) Comment: Interpretive Data No reference range established. Current interpretive data was last revised 2017. HCO3 Venous, Calculated 30 20 - 30 mmol/L [facility] ([place]) BE, venous 2 mmol/L [facility] ([place]) Comment: Interpretive Data No Reference Range Established Current Interpretive Data was last revised on 2017. Blood 11/02/2024 1:54 PM SOLUTIONS ENGINEER 11/02/2024 1:56 PM SOLUTIONS ENGINEER Norm Resendiz MD LAB BLOOD ORDERABLES Final R esult JOHAN ACOSTA ([place]) 1 [facility] [place] [address] * Ammonia (11/02/2024 1:54 PM SOLUTIONS ENGINEER) Pathologist [facility] Ammonia 15 <=50 mcmol/L Blood 11/02/2024 1:54 PM SOLUTIONS ENGINEER 11/02/2024 1:56 PM SOLUTIONS ENGINEER Norm Resendiz MD LAB BLOOD ORDERABLES Final R esult JOHAN ACOSTA ([place]) 1 [facility] [place] [address] * (ABNORMAL) Comprehensive metabolic panel (11/02/2024 1:54 PM SOLUTIONS ENGINEER) Sodium 132(L) 135 - 145 mmol/L Potassium, pl 4.7 3.3 - 4.9 mmol/L [facility] ([place]) Chloride 94(L) 97 - 110 mmol/L [facility] ([place]) CO2 28 22 - 32 mmol/L [facility] ([place]) Anion gap 11 2 - 15 mmol/L [facility] ([place]) BUN 30(H) 6 - 25 mg/dL [facility] ([place]) Creatinine 4.14(H) 0.60 - 1.10 mg/dL [facility] ([place]) Glucose 131 70 - 199 mg/dL [facility] ([place]) [...] Hemolyzed S pecimen Blood 11/02/2024 1:54 PM SOLUTIONS ENGINEER 11/02/2024 1:56 PM SOLUTIONS ENGINEER us Norm Resendiz MD LAB BLOOD ORDERABLES Final R esult [facility] ([place]) [address] Department of [place] [address] * ECG 12 lead (11/02/2024 1:44 PM SOLUTIONS ENGINEER) 11/02/2024 1:44 PM SOLUTIONS ENGINEER Narrative [facility] - 11/02/2024 3:27 PM SOLUTIONS ENGINEER Vent Rate: 65 bpm RR Interval: 918 msec DE Interval: 198 msec QRS Duration: 106 msec QT Interval: 430 msec QTC Interval: 441 msec P-R-T Perley: 72 - 64 - 75 degrees IMPRESSION: SINUS RHYTHM LOW QRS VOLTAGE IN PRECORDIAL LEADS [QRS DEFLECTION < 1.0 mV IN CHEST LEADS] BORDERLINE ECG NO CHANGE FROM PREVIOUS TRACING NOTED Electronically Signed By: Jeremy Calix MD us Norm Resendiz MD ECG ORDERABLES Final Result Performing Organization Address [facility]/ZIP Co de Phone Number [facility] * POCT glucose (11/02/2024 1:20 PM SOLUTIONS ENGINEER) Glucose, POC 127 70 - 199 mg/dL Blood 11/02/2024 1:20 PM SOLUTIONS ENGINEER 11/02/2024 1:20 PM SOLUTIONS ENGINEER us Notinfile Unknown LAB POCT ORDERABLES - DEVICE F inal Result Performing Organization Address City/[facility]/ZIP Co de Phone Number [facility] ([place]) 1 [facility] [place] [address] * POCT glucose (10/27/2024 11:58 AM SOLUTIONS ENGINEER) Glucose, POC 161 70 - 199 mg/dL Blood 10/27/2024 11:5 8 AM SOLUTIONS ENGINEER 10/27/2024 11:58 AM SOLUTIONS ENGINEER us Emilia Damian MD LAB POCT ORDERABLES - DEV ICE Final Result Performing Organization Address City/[facility]/ZIP Co de Phone Number [facility] ([place]) 1 [facility] [place] [address] * POCT glucose (10/27/2024 8:11 AM SOLUTIONS ENGINEER) Glucose, POC 164 70 - 199 mg/dL Blood 10/27/2024 8:11 AM SOLUTIONS ENGINEER 10/27/2024 8:11 AM SOLUTIONS ENGINEER Emilia Damian MD LAB POCT ORDERABLES - DEV ICE Final Result [facility] ([place]) 1 [facility] [place] [address] * (ABNORMAL) eGFR (10/27/2024 3:25 AM SOLUTIONS ENGINEER) eGFR 10(L) >=60 mL/min/1. 73 m2 Comment: [...] last reviewed 2021. Blood 10/27/2024 3:25 AM SOLUTIONS ENGINEER 10/27/2024 3:35 AM SOLUTIONS ENGINEER us Fuentes Persaud MD LAB BLOOD ORDERABLES Final Result [facility] ([place]) 1 [facility] [place] [address] * (ABNORMAL) CBC without differential (10/27/2024 3:25 AM SOLUTIONS ENGINEER) WBC 6.8 3.8 - 9.9 K/cumm Hgb [...] [facility] ([place]) Blood 10/27/2024 3:25 AM SOLUTIONS ENGINEER 10/27/2024 3:38 AM SOLUTIONS ENGINEER Fuentes Persaud MD LAB BLOOD ORDERABLES Final Result [facility] ([place]) 1 [facility] [place] [address] * (ABNORMAL) Basic metabolic panel (10/27/2024 3:25 AM SOLUTIONS ENGINEER) Pathologist [facility] Sodium 134(L) 135 - 145 mmol/L Potassium, [...] 2022. Calcium 8.4(L) 8.5 - 10.3 mg/dL [facility] ([place]) Blood 10/27/2024 3:25 AM SOLUTIONS ENGINEER 10/27/2024 3:35 AM SOLUTIONS ENGINEER Fuentes Persaud MD LAB BLOOD ORDERABLES Final Result JOHAN ACOSTA ([place]) 1 [facility] [place] [address] * (ABNORMAL) POCT glucose (10/27/2024 3:24 AM SOLUTIONS ENGINEER) Glucose, POC 264(H) 70 - 199 mg/dL Blood 10/27/2024 3:24 AM SOLUTIONS ENGINEER 10/27/2024 3:24 AM SOLUTIONS ENGINEER Emilia Damian MD LAB POCT ORDERABLES - DEV ICE Final Result JOHAN ACOSTA ([place]) 1 [facility] [place] [address] * (ABNORMAL) POCT glucose (10/26/2024 9:24 PM SOLUTIONS ENGINEER) Glucose, POC 324(H) 70 - 199 mg/dL Blood 10/26/2024 9:24 PM SOLUTIONS ENGINEER 10/26/2024 9:24 PM SOLUTIONS ENGINEER us Emilia Damian MD LAB POCT ORDERABLES - DEV ICE Final Result JOHAN ACOSTA ([place]) 1 [facility] [place] [address] * (ABNORMAL) POCT glucose (10/26/2024 5:07 PM SOLUTIONS ENGINEER) Glucose, POC 354(H) 70 - 199 mg/dL Blood 10/26/2024 5:07 PM SOLUTIONS ENGINEER 10/26/2024 5:07 PM SOLUTIONS ENGINEER us Emilia Damian MD LAB POCT ORDERABLES - DEV ICE Final Result Performing Organization Address City/[facility] Co de Phone Number JOHAN ACOSTA ([place]) 1 [facility] [place] [address] * (ABNORMAL) POCT glucose (10/26/2024 11:45 AM SOLUTIONS ENGINEER) Glucose, POC 239(H) 70 - 199 mg/dL Blood 10/26/2024 11:4 5 AM SOLUTIONS ENGINEER 10/26/2024 11:45 AM SOLUTIONS ENGINEER us Emilia Damian MD LAB POCT ORDERABLES - DEV ICE Final Result JOHAN ACOSAT ([place]) 1 [facility] [place] [address] * Transfuse RBC (10/26/2024 10:44 AM SOLUTIONS ENGINEER) Blood us Rajeev Nassar MD BLOOD TRANSFUSION ORDERABLES Fi nal Result JOHAN ACOSTA ([place]) 1 [facility] [place] [address] * (ABNORMAL) Hemoglobin and hematocrit (10/26/2024 8:47 AM SOLUTIONS ENGINEER) [facility] Hgb 8.0(L) 11.9 - 15.5 g/dL Hct 25.2(L) 35.6 - 45.5 % [facility] ([place]) Blood 10/26/2024 8:47 AM SOLUTIONS ENGINEER 10/26/2024 8:49 AM SOLUTIONS ENGINEER us Emilia Damian MD LAB BLOOD ORDERABLES Adrianna l Result JOHAN ACOSTA ([place]) 1 [facility] [place] [address] * (ABNORMAL) POCT glucose (10/26/2024 7:59 AM SOLUTIONS ENGINEER) [facility] Glucose, POC 237(H) 70 - 199 mg/dL Blood 10/26/2024 7:59 AM SOLUTIONS ENGINEER 10/26/2024 7:59 AM SOLUTIONS ENGINEER us Emilia Damian MD LAB POCT ORDERABLES - DEV ICE Final Result JOHAN CAOSTA ([place]) 1 [place] [address] * Prepare RBC (10/26/2024 5:06 AM SOLUTIONS ENGINEER) [facility] Unit Number [id number] Product code [id number] [facility] ([place]) Blood Expiration Date [id number] [facility] ([place]) Product Blood Type (for scanning) 5100 [facility] ([place]) Product Blood Type OPOS [facility] ([place]) Dispense Status DISPENSED [facility] ([place]) us Fuentes Persaud MD BLOOD BANK PRODUCT ORDERAB LES Final Result JOHAN SANCHEZ) 1 [facility] [place] [address] * Prepare RBC: 1 Units (10/26/2024 5:06 AM SOLUTIONS ENGINEER) Units requested 1 Units requested Ready RUSSELL ACOSTA ([place]) Blood 10/26/2024 5:06 AM SOLUTIONS ENGINEER 10/26/2024 5:07 AM SOLUTIONS ENGINEER Narrative JOHAN SANCHEZ) - 10/26/2024 5:08 AM SOLUTIONS ENGINEER Are special requirements needed? (All products are leukoreduced and CMV- safe)->No us Rajeev Nassar MD BLOOD BANK PRODUCT ORDERABLES F inal Result JOHAN SANCHEZ) 1 [facility] [place] [address] * (ABNORMAL) eGFR (10/26/2024 2:46 AM SOLUTIONS ENGINEER) eGFR 12(L) >=60 mL/min/1. 73 m2 Comment: [...] of Race in Diagnosing Kidney Disease, JASN 202). The CKD-EPI equation should not be used for patients with unstable renal function and has not been validated in children and those over 70. Current interpretive data was last reviewed 2021. Blood 10/26/2024 2:46 AM SOLUTIONS ENGINEER 10/26/2024 3:10 AM SOLUTIONS ENGINEER us Fuentes Persaud MD LAB BLOOD ORDERABLES Final Result [facility] ([place]) 1 [facility] [place] [address] * (ABNORMAL) CBC without differential (10/26/2024 2:46 AM SOLUTIONS ENGINEER) Pathologist [facility] WBC 5.0 3.8 - 9.9 K/cumm Hgb [...] [facility] ([place]) Blood 10/26/2024 2:46 AM SOLUTIONS ENGINEER 10/26/2024 3:09 AM SOLUTIONS ENGINEER Fuentes Persaud MD LAB BLOOD ORDERABLES Final Result JOHAN ACOSTA ([place]) 1 [facility] [place] [address] * (ABNORMAL) Basic metabolic panel (10/26/2024 2:46 AM SOLUTIONS ENGINEER) Pathologist [facility] Sodium 135 135 - 145 mmol/L Potassium, pl 4.3 3.3 - 4.9 mmol/L [facility] ([place]) Chloride 95(L) 97 - 110 mmol/L [facility] ([place]) CO2 27 22 - 32 mmol/L [facility] Anion gap 13 2 - 15 mmol/L [facility] ([place] BUN 44(H) 6 - 25 mg/dL [facility] ([place]) Creatinine 3.91(H) 0.60 - 1.10 mg/dL [facility] ([place]) Glucose 287(H) 70 - 199 mg/dL [facility] ([place]) Comment: Interpretive Data [...] 2022. Calcium 8.2(L) 8.5 - 10.3 mg/dL [facility] ([place]) Blood 10/26/2024 2:46 AM SOLUTIONS ENGINEER 10/26/2024 3:10 AM SOLUTIONS ENGINEER us Fuentes Persaud MD LAB BLOOD ORDERABLES Final Result Performing Organization Address City/[facility] Co de Phone Number JOHAN [facility] ([place]) 1 [facility] [place] [address] * (ABNORMAL) POCT glucose (10/26/2024 2:07 AM SOLUTIONS ENGINEER) [facility] Signature Glucose, POC 319(H) 70 - 199 mg/dL Comment:Glu2: RN/ Notified Blood 10/26/2024 2:07 AM SOLUTIONS ENGINEER 10/26/2024 2:07 AM SOLUTIONS ENGINEER Emilia Damian MD LAB POCT ORDERABLES - DEV ICE Final Result JOHAN ACOSTA ([place]) 1 [facility] [place] [address] * (ABNORMAL) POCT glucose (10/25/2024 8:30 PM SOLUTIONS ENGINEER) Glucose, POC 351(H) 70 - 199 mg/dL Blood 10/25/2024 8:30 PM SOLUTIONS ENGINEER 10/25/2024 8:30 PM SOLUTIONS ENGINEER us Emilia Damian MD LAB POCT ORDERABLES - DEV ICE Final Result Performing Organization Address [facility] Co de Phone Number JOHAN ACOSTA ([place]) 1 [facility] [place] [address] * (ABNORMAL) POCT glucose (10/25/2024 5:13 PM SOLUTIONS ENGINEER) Glucose, POC 344(H) 70 - 199 mg/dL Blood 10/25/2024 5:13 PM SOLUTIONS ENGINEER 10/25/2024 5:13 PM SOLUTIONS ENGINEER us Emilia Damian MD LAB POCT ORDERABLES - DEV ICE Final Result Performing Organization Address [facility] Co de Phone Number JOHAN ACOSTA ([place]) 1 [facility] [place] [address] * (ABNORMAL) POCT glucose (10/25/2024 12:08 PM SOLUTIONS ENGINEER) Glucose, POC 256(H) 70 - 199 mg/dL Blood 10/25/2024 12:0 8 PM SOLUTIONS ENGINEER 10/25/2024 12:08 PM SOLUTIONS ENGINEER us Emilia Damian MD LAB POCT ORDERABLES - DEV ICE Final Result Performing Organization Address City/[facility]/ZIP Co de Phone Number JOHAN ACOSTA ([place]) 1 [facility] [place] [address] * (ABNORMAL) Hemoglobin and hematocrit (10/25/2024 9:11 AM SOLUTIONS ENGINEER) Hgb 7.0(L) 11.9 - 15.5 g/dL Hct 22.1(L) 35.6 - 45.5 % [facility] ([place]) Blood 10/25/2024 9:11 AM SOLUTIONS ENGINEER 10/25/2024 9:16 AM SOLUTIONS ENGINEER Emilia Damian MD LAB BLOOD ORDERABLES Adrianna l Result JOHAN [facility] ([place]) 1 [facility] [place] [place] [address] * ABO/Rh (10/25/2024 6:35 AM SOLUTIONS ENGINEER) ABO/Rh O Positive Blood 10/25/2024 6:35 AM SOLUTIONS ENGINEER 10/25/2024 7:11 AM SOLUTIONS ENGINEER Narrative [facility] ([place]) - 10/25/2024 7:55 AM SOLUTIONS ENGINEER Has the patient had Daratumumab or Isatuximab in the past 6 months?->Unknown Rajeev Nassar MD LAB BLOOD BANK TEST ORDERABLES Final Result JOHAN ACOSTA ([place]) 1 [facility] [place] [address] * Crossmatch (10/25/2024 6:35 AM SOLUTIONS ENGINEER) Crossmatch Compatible [facility] ([place]) Unit number for crossmatch [id number] [facility] ([place]) Crossmatch Compatible [facility] ([place]) Unit number for crossmatch [id number] [facility] ([place] Blood 10/25/2024 6:35 AM SOLUTIONS ENGINEER 10/26/2024 4:29 AM SOLUTIONS ENGINEER Emilia Damian MD LAB BLOOD BANK TEST ORDER SARIKA Edited Result - Final JOHAN ACOSTA ([place]) 1 [facility] [place] [address] * Antibody screen (10/25/2024 6:35 AM SOLUTIONS ENGINEER) Karon, indirect, Gel Interpretation Negative ABSC Blood 10/25/2024 6:35 AM SOLUTIONS ENGINEER 10/25/2024 7:11 AM SOLUTIONS ENGINEER Narrative JOHAN ACOSTA ([place]) - 10/25/2024 7:55 AM SOLUTIONS ENGINEER Has the patient had Daratumumab or Isatuximab in the past 6 months?->Unknown Rajeev Nassar MD LAB BLOOD BANK TEST ORDERABLES Final Result JOHAN ACOSTA ([place]) 1 [facility] [place] [address] * (ABNORMAL) eGFR (10/25/2024 3:16 AM SOLUTIONS ENGINEER) eGFR 8(L) >=60 mL/min/1. 73 m2 Comment: [...] last reviewed 2021. Blood 10/25/2024 3:16 AM SOLUTIONS ENGINEER 10/25/2024 4:31 AM SOLUTIONS ENGINEER us Fuentes Persaud MD LAB BLOOD ORDERABLES Final Result JOHAN ACOSTA ([place]) 1 [facility] [place] [address] * (ABNORMAL) Procalcitonin (10/25/2024 3:16 AM SOLUTIONS ENGINEER) Pathologist [facility] Procalcitonin 0.55(H) <=0.25 ng/mL Comment:Testing performed by : [facility], [facility]5 [facility], [place]., [address] Blood 10/25/2024 3:16 AM SOLUTIONS ENGINEER 10/25/2024 5:33 PM SOLUTIONS ENGINEER Emilia Damian MD LAB BLOOD ORDERABLES Adrianna l Result Performing Organization Address City/[facility]/ZIP Co de Phone Number JOHAN ACOSTA ([place]) 1 [facility] [place] [address] * (ABNORMAL) CBC without differential (10/25/2024 3:16 AM SOLUTIONS ENGINEER) [facility] WBC 4.1 3.8 - 9.9 K/cumm Hgb [...] RDW SD 52.7(H) 35.7 - 48.1 fL [facility] ([place]) NRBC abs 0.00 0.00 - 0.01 K/cumm [facility] ([place]) Blood 10/25/2024 3:16 AM SOLUTIONS ENGINEER 10/25/2024 4:36 AM SOLUTIONS ENGINEER Fuentes Persaud MD LAB BLOOD ORDERABLES Final Result Performing Organization Address City/[facility]/ZIP Co de Phone Number [facility] ([place]) 1 [place] [address] * Vancomycin level random (10/25/2024 3:16 AM SOLUTIONS ENGINEER) Pathologist [facility] Vancomycin random 21.6 mcg/mL Comment: Random Vancomycin levels may vary due to the amount and time of last dose Current interpretive data was last revised on 2014 Blood 10/25/2024 3:16 AM SOLUTIONS ENGINEER 10/25/2024 4:31 AM SOLUTIONS ENGINEER Lesley Cruz MD LAB BLOOD ORDERABLES Final Result Performing Organization Address [facility] de Phone Number [facility] ([place]) 1 [place] [address] * (ABNORMAL) Basic metabolic panel (10/25/2024 3:16 AM SOLUTIONS ENGINEER) Sodium 134(L) 135 - 145 mmol/L Potassium, pl 4.5 3.3 - 4.9 mmol/L [facility] ([place]) Chloride 93(L) 97 - 110 mmol/L [facility] ([place]) CO2 26 22 - 32 mmol/L [facility] ([place]) Anion gap 15 2 - 15 mmol/L [facility] ([place]) BUN 45(H) 6 - 25 mg/dL [facility] ([place]) Creatinine 5.38(H) 0.60 - 1.10 mg/dL [facility] ([place]) Glucose 369(H) 70 - 199 mg/dL [facility] ([place]) Comment: Interpretive Data Fasting glucose >/= 126 [...] 2022. Calcium 8.4(L) 8.5 - 10.3 mg/dL JOHAN ACOSTA ([place]) Blood 10/25/2024 3:16 AM SOLUTIONS ENGINEER 10/25/2024 4:31 AM SOLUTIONS ENGINEER Fuentes Persaud MD LAB BLOOD ORDERABLES Final Result Performing Organization Address City/[facility]/ZIP Co de Phone Number JOHAN ACOSTA ([place]) 1 [facility] [place] [address] * (ABNORMAL) POCT glucose (10/25/2024 2:18 AM SOLUTIONS ENGINEER) Glucose, POC 364(H) 70 - 199 mg/dL Comment:Glu2: RN/ Notified Blood 10/25/2024 2:18 AM SOLUTIONS ENGINEER 10/25/2024 2:18 AM SOLUTIONS ENGINEER Emilai Damian MD LAB POCT ORDERABLES - DEV ICE Final Result JOHAN [facility] ([place]) 1 [facility] [place] [address] * (ABNORMAL) POCT glucose (10/24/2024 11:42 PM SOLUTIONS ENGINEER) Glucose, POC 399(H) 70 - 199 mg/dL Blood 10/24/2024 11:4 2 PM SOLUTIONS ENGINEER 10/24/2024 11:42 PM SOLUTIONS ENGINEER Emilia Damian MD LAB POCT ORDERABLES - DEV ICE Final Result Performing Organization Address [facility] Co de Phone Number JOHAN CAOSTA ([place]) 1 [facility] [place] [address] * (ABNORMAL) POCT glucose (10/24/2024 8:31 PM SOLUTIONS ENGINEER) Glucose, POC 457(C) 70 - 199 mg/dL Comment:Glu2: RN/ Notified Blood 10/24/2024 8:31 PM SOLUTIONS ENGINEER 10/24/2024 8:31 PM SOLUTIONS ENGINEER us Emilia Damian MD LAB POCT ORDERABLES - DEV ICE Final Result Performing Organization Address [facility] de Phone Number JOHAN ACOSTA ([place]) 1 [facility] [place] [address] * (ABNORMAL) POCT glucose (10/24/2024 8:30 PM SOLUTIONS ENGINEER) Glucose, POC 450(C) 70 - 199 mg/dL Blood 10/24/2024 8:30 PM SOLUTIONS ENGINEER 10/24/2024 8:30 PM SOLUTIONS ENGINEER us Emilia Damian MD LAB POCT ORDERABLES - DEV ICE Final Result Performing Organization Address [facility] Co de Phone Number JOHAN ACOSTA ([place]) 1 [facility] [place] [address] * (ABNORMAL) POCT glucose (10/24/2024 4:55 PM SOLUTIONS ENGINEER) Glucose, POC 462(C) 70 - 199 mg/dL Comment:Glu2: YOSELIN/ Notified Blood 10/24/2024 4:55 PM SOLUTIONS ENGINEER 10/24/2024 4:55 PM SOLUTIONS ENGINEER us Emilia Damian MD LAB POCT ORDERABLES - DEV ICE Final Result Performing Organization Address City/[facility]/ZIP Co de Phone Number [facility] [place]) 1 [facility] [place] [address] * CT Head WO Contrast (10/24/2024 3:12 PM SOLUTIONS ENGINEER) Anatomical Region Laterality Modality Head and Neck N/A Computed Tomogra phy 10/24/2024 4:49 PM SOLUTIONS ENGINEER Narrative 10/24/2024 4:53 PM SOLUTIONS ENGINEER EXAM DESCRIPTION: CT HEAD WO CONTRAST REASON [...] signed by Barber Poe M.D. AG: LEE Report ID: [id number] Reading Location: [id number] Procedure Note Barber Poe MD - 10/24/2024 [...] Electronically signed by Barber Poe M.D. AG: AG Report ID: [id number] Reading Location: [place] [address] Emilia Damian MD IMG CT PROCEDURES Final R esult * (ABNORMAL) POCT glucose (10/24/2024 11:48 AM SOLUTIONS ENGINEER) Glucose, POC 400(H) 70 - 199 mg/dL Blood 10/24/2024 11:4 8 AM SOLUTIONS ENGINEER 10/24/2024 11:48 AM SOLUTIONS ENGINEER Emilia Damian MD LAB POCT ORDERABLES - DEV ICE Final Result Performing Organization Address City/[facility]/ZIP Co de Phone Number JOHAN ACOSTA ([place]) [address] [place] [address] [place] [address] * (ABNORMAL) Iron profile w/ IBC (10/24/2024 8:10 AM SOLUTIONS ENGINEER) Iron 115 35 - 145 mcg/dL TIBC 177(L) 250 - 400 mcg/dL [facility] ([place]) Transferrin saturation 65(H) 20 - 50 % [facility] ([place]) Blood 10/24/2024 8:10 AM SOLUTIONS ENGINEER 10/24/2024 8:25 AM SOLUTIONS ENGINEER Lesley Cruz MD LAB BLOOD ORDERABLES Final Result JOHAN ACOSTA ([place]) 1 [facility] [place] [address] * (ABNORMAL) Folate (10/24/2024 8:10 AM SOLUTIONS ENGINEER) [facility] Folic acid 4.0(L) >=5.0 ng/mL Comment:Slightly Hemolyzed S pecimen. Results may be affected. Blood 10/24/2024 8:10 AM SOLUTIONS ENGINEER 10/24/2024 8:25 AM SOLUTIONS ENGINEER Lesley Cruz MD LAB BLOOD ORDERABLES Final Result JOHAN ACOSTA ([place]) 1 [facility] [place] [address] * (ABNORMAL) Ferritin (10/24/2024 8:10 AM SOLUTIONS ENGINEER) [facility] Ferritin 1,216(H) 15 - 150 ng/mL Blood 10/24/2024 8:10 AM SOLUTIONS ENGINEER 10/24/2024 8:25 AM SOLUTIONS ENGINEER Lesley Cruz MD LAB BLOOD ORDERABLES Final Result Performing Organization Address City/[facility] Co de Phone Number JOHAN ACOSTA ([place]) 1 [facility] [place] [address] * Vitamin B12 (10/24/2024 8:10 AM SOLUTIONS ENGINEER) [facility] Vitamin B12 325 230 - 1,250 pg/mL Blood 10/24/2024 8:10 AM SOLUTIONS ENGINEER 10/24/2024 8:25 AM SOLUTIONS ENGINEER Lesley Cruz MD LAB BLOOD ORDERABLES Final Result Performing Organization Address City/[facility] Co de Phone Number JOHAN ACOSTA ([place]) 1 [facility] [place] [address] * (ABNORMAL) POCT glucose (10/24/2024 7:53 AM SOLUTIONS ENGINEER) [facility] Glucose, POC 318(H) 70 - 199 mg/dL Blood 10/24/2024 7:53 AM SOLUTIONS ENGINEER 10/24/2024 7:53 AM SOLUTIONS ENGINEER us Emilia Damian MD LAB POCT ORDERABLES - DEV ICE Final Result Performing Organization Address City/[facility]/ZIP Co de Phone Number JOHAN ACOSTA ([place]) 1 [facility] [place] [address] * (ABNORMAL) eGFR (10/24/2024 3:36 AM SOLUTIONS ENGINEER) eGFR 11(L) >=60 mL/min/1. 73 m2 Comment: [...] last reviewed 2021. Blood 10/24/2024 3:36 AM SOLUTIONS ENGINEER 10/24/2024 3:42 AM SOLUTIONS ENGINEER us Yariel Alfredo MD LAB BLOOD ORDERABLES Final Resu lt JOHAN ACOSTA ([place]AN) 1 [facility] [place] [address] * Blood culture Blood (10/24/2024 3:36 AM SOLUTIONS ENGINEER) Report Final Report: No growth Comment:Testing performed by : [facility], [address] [facility] [place]., [address] Blood 10/24/2024 3:36 AM SOLUTIONS ENGINEER 10/24/2024 5:45 AM SOLUTIONS ENGINEER Narrative JOHAN ACOSTA ([place]) - 10/28/2024 7:00 AM SOLUTIONS ENGINEER From a different site than #1. Collection->Peripheral [...] performance characteristics have been verified by the [facility] Microbiology [facility]. For questions about this culture, contact the Microbiology Laboratory at [phone]. Interpretive data was last revised on 24. Fuentes Persaud MD LAB MICROBIOLOGY - GENERAL ORDERABLES Final Result JOHAN KARLA ([place]) 1 [facility] [place] [address] * (ABNORMAL) CBC without differential (10/24/2024 3:36 AM SOLUTIONS ENGINEER) [facility] WBC 4.8 3.8 - 9.9 K/cumm Hgb 7.1(L) 11.9 - 15.5 g/dL JOHAN ACOSTA ([place]) Hct 22.5(L) 35.6 - 45.5 % [facility] ACO[facility] ([place]) Plt 125(L) 150 - 400 K/cumm [facility] ACOSTA ([place]) MPV 9.2 9.1 - 12.3 fL [facility] ([place]) RBC 2.39(L) 3.90 - 5.20 M/cumm [facility] ACOSTA ([place]) MCV 94.1 81.3 - 96.4 fL [facility] ACOSTA ([place]) MCH 29.7 27.1 - 33.3 pg [facility] ([place]) MCHC 31.6(L) 32.3 - 35.7 g/dL [facility] ACOSTA ([place]) RDW CV 15.1(H) 11.1 - 14.9 % [facility] ACOSTA ([place]) RDW SD 52.0(H) 35.7 - 48.1 fL [facility] ACOSTA ([place]) NRBC abs 0.00 0.00 - 0.01 K/cumm [facility] ACOSTA ([place]) Blood 10/24/2024 3:36 AM SOLUTIONS ENGINEER 10/24/2024 3:43 AM SOLUTIONS ENGINEER Fuentes Persaud MD LAB BLOOD ORDERABLES Final Result Performing Organization Address City/[facility]/ZIP Co de Phone Number [facility] ([place]) 1 [facility] [place] [address] * Hemoglobin A1c (10/24/2024 3:36 AM SOLUTIONS ENGINEER) [facility] Hgb A1C 5.4 4.0 - 5.6 % Estimated Average Glucose 108 mg/dL JOHAN ACOSTA ([place]) Comment: The ADA recommends reporting an estimated Average Glucose (eAG) with all Hemoglobin A1c results using the equation derived from a study of 507 normal and diabetic adults. Minority populations were underrepresented and children were not included. (Diabetes Care 31:6206-2279, 2008). The eAG is not equivalent to a fasting glucose. Blood 10/24/2024 3:36 AM SOLUTIONS ENGINEER 10/24/2024 2:35 PM SOLUTIONS ENGINEER Emilia Damian MD LAB BLOOD ORDERABLES Adrianna l Result Performing Organization Address City/[facility]/ZIP Co de Phone Number [facility] ([place]) 1 [facility] [place] [address] * (ABNORMAL) Basic metabolic panel (10/24/2024 3:36 AM SOLUTIONS ENGINEER) Sodium 135 135 - 145 mmol/L Potassium, pl 4.0 3.3 - 4.9 mmol/L [facility] ([place]) Chloride 95(L) 97 - 110 mmol/L [facility] ([place]) CO2 26 22 - 32 mmol/L [facility] ([place]) Anion gap 14 2 - 15 mmol/L [facility] ([place]) BUN 28(H) 6 - 25 mg/dL [facility] (FAN) Creatinine 4.26(H) 0.60 - 1.10 mg/dL [facility] ([place]AN) Glucose 314(H) 70 - 199 mg/dL [facility] (FAN) Comment: Interpretive Data [...] 2022. Calcium 8.7 8.5 - 10.3 mg/dL [facility] ([place]AN) Blood 10/24/2024 3:36 AM SOLUTIONS ENGINEER 10/24/2024 3:42 AM SOLUTIONS ENGINEER Fuentes Persaud MD LAB BLOOD ORDERABLES Final Result [facility] (FAN) 1 [facility] Department of Laboratories [place], [place] [id number] * (ABNORMAL) POCT glucose (10/24/2024 3:11 AM SOLUTIONS ENGINEER) Glucose, POC 324(H) 70 - 199 mg/dL Blood 10/24/2024 3:11 AM SOLUTIONS ENGINEER 10/24/2024 3:11 AM SOLUTIONS ENGINEER us Luis Manuel Hodges Jr., MD LAB POCT ORDERABLES - DEVICE Final Result JOHAN ACOSTA ([place]) 1 [facility] [place] [address] * (ABNORMAL) POCT glucose (10/23/2024 9:27 PM SOLUTIONS ENGINEER) Glucose, POC 305(H) 70 - 199 mg/dL Blood 10/23/2024 9:27 PM SOLUTIONS ENGINEER 10/23/2024 9:27 PM SOLUTIONS ENGINEER us Luis Manuel Hodges Jr., MD LAB POCT ORDERABLES - DEVICE Final Result Performing Organization Address City/[facility] Co de Phone Number JOHAN ACOSTA ([place]) 1 [place] [address] * Blood culture Blood (10/23/2024 4:51 PM SOLUTIONS ENGINEER) Pathologist [facility] Report Final Report: No growth Comment:Testing performed by : [facility], 1 [facility], [place]., [address] Blood 10/23/2024 4:51 PM SOLUTIONS ENGINEER 10/23/2024 7:49 PM SOLUTIONS ENGINEER Narrative JOHAN ACOSTA ([place]) - 10/28/2024 7:00 AM SOLUTIONS ENGINEER Collection->Peripheral Received only aerobic blood culture bottle [...] performance characteristics have been verified by the [facility]. For questions about this culture, contact the Microbiology Laboratory at [phone]. Interpretive data was last revised on 24. Fuentes Persaud MD LAB MICROBIOLOGY - GENERAL ORDERABLES Final Result Performing Organization Address City/[facility] Co de Phone Number [facility] ([place]) 1 [facility] [place] [address] * (ABNORMAL) POCT glucose (10/23/2024 4:02 PM SOLUTIONS ENGINEER) Glucose, POC 220(H) 70 - 199 mg/dL Blood 10/23/2024 4:02 PM SOLUTIONS ENGINEER 10/23/2024 4:02 PM SOLUTIONS ENGINEER Luis Manuel Hodges Jr., MD LAB POCT ORDERABLES - DEVICE Final Result Performing Organization Address [facility] de Phone Number [facility]AN [facility] ([place]) 1 [facility] [place] [address] * POCT glucose (10/23/2024 12:10 PM SOLUTIONS ENGINEER) Glucose, POC 172 70 - 199 mg/dL Blood 10/23/2024 12:1 0 PM SOLUTIONS ENGINEER 10/23/2024 12:10 PM SOLUTIONS ENGINEER Luis Manuel Hodges Jr., MD LAB POCT ORDERABLES - DEVICE Final Result Performing Organization Address [facility] Co de Phone Number JOHAN ACOSTA ([place]) 1 [facility] [place] [address] * (ABNORMAL) Blood gas, arterial (10/23/2024 9:06 AM SOLUTIONS ENGINEER) pH, Art 7.36 7.35 - 7.45 PCO2, [...] [facility] ([place]) Blood 10/23/2024 9:06 AM SOLUTIONS ENGINEER 10/23/2024 9:08 AM SOLUTIONS ENGINEER us Fuentes Persaud MD LAB BLOOD ORDERABLES Final Result JOHAN [facility] (FAN) 1 [facility] [place] [address] * (ABNORMAL) POCT glucose (10/23/2024 8:09 AM SOLUTIONS ENGINEER) Glucose, POC 254(H) 70 - 199 mg/dL Blood 10/23/2024 8:09 AM SOLUTIONS ENGINEER 10/23/2024 8:09 AM SOLUTIONS ENGINEER us Fuentes Persaud MD LAB POCT ORDERABLES - BRITTANY CE Final Result JOHAN ACOSTA ([place]AN) 1 [facility] [place] [address] * Blood culture Blood (10/23/2024 5:56 AM SOLUTIONS ENGINEER) Report Final Report: No growth Comment:Testing performed by : [facility], 1 [facility], [place]., [address] Blood 10/23/2024 5:56 AM SOLUTIONS ENGINEER 10/23/2024 10:01 AM SOLUTIONS ENGINEER Narrative JOHAN [facility] (FAN) - 10/27/2024 12:00 PM SOLUTIONS ENGINEER From a different site than #1. Collection->Peripheral [...] be performed for organism identification using the giu ePlex blood culture identification panel for gram positive (BCID-GP) and gram negative (BCID-GN) organisms. This nucleic acid amplification test detects microbial DNA in positive blood culture broth. This assay has been cleared by the [place] Food and Drug Administration and its performance characteristics have been verified by the [facility]. For questions about this culture, contact the Microbiology Laboratory at [phone]. Interpretive data was last revised on 24. Yariel Alfredo MD LAB MICROBIOLOGY - GENERAL ORDE RICK Final Result JOHAN [facility] [place] 1 [facility] [place] [address] * (ABNORMAL) eGFR (10/23/2024 5:38 AM SOLUTIONS ENGINEER) eGFR 7(L) >=60 mL/min/1. 73 m2 Comment: [...] last reviewed 2021. Blood 10/23/2024 5:38 AM SOLUTIONS ENGINEER 10/23/2024 5:47 AM SOLUTIONS ENGINEER Yariel Alfredo MD LAB BLOOD ORDERABLES Final Resu lt JOHAN ACOSTA (FAN) 1 [facility] Department [place] [address] * Blood culture Blood (10/23/2024 5:38 AM SOLUTIONS ENGINEER) Report Final Report: No growth Comment:Testing performed by : [facility], 1 [facility] [address] Blood 10/23/2024 5:38 AM SOLUTIONS ENGINEER 10/23/2024 7:45 AM SOLUTIONS ENGINEER Narrative JOHAN ACOSTA (FAN) - 10/27/2024 12:00 PM SOLUTIONS ENGINEER Collection->Peripheral 1. Blood cultures are incubated for [...] performance characteristics have been verified by the [facility]. For questions about this culture, contact the Microbiology Laboratory at [phone]. Interpretive data was last revised on 24. us Yariel Alfredo MD LAB MICROBIOLOGY - GENERAL ORDPeter CABRERA Final Result [facility]OHAN [facility] (FAN) 1 [facility] Department [place] [address] * (ABNORMAL) CBC without differential (10/23/2024 5:38 AM SOLUTIONS ENGINEER) Pathologist [facility] WBC 3.8 3.8 - 9.9 K/cumm Hgb [...] RDW SD 52.5(H) 35.7 - 48.1 fL [facility] ([place]AN) NRBC abs 0.00 0.00 - 0.01 K/cumm [facility] ([place]AN) Blood 10/23/2024 5:38 AM SOLUTIONS ENGINEER 10/23/2024 5:47 AM SOLUTIONS ENGINEER Fuentes Persaud MD LAB BLOOD ORDERABLES Final Result JOHAN ACOSTA (FAN) 1 [facility] Department [place] [address] * (ABNORMAL) Phosphorus (10/23/2024 5:38 AM SOLUTIONS ENGINEER) Pathologist [facility] Phosphorus, pl 5.1(H) 2.3 - 4.5 mg/dL Blood 10/23/2024 5:38 AM SOLUTIONS ENGINEER 10/23/2024 5:47 AM SOLUTIONS ENGINEER Yariel Alfredo MD LAB BLOOD ORDERABLES Final Resu lt [facility] (FAN) 1 [facility] [place] [address] * Magnesium (10/23/2024 5:38 AM SOLUTIONS ENGINEER) [facility] Magnesium 1.9 1.4 - 2.5 mg/dL Blood 10/23/2024 5:38 AM SOLUTIONS ENGINEER 10/23/2024 5:47 AM SOLUTIONS ENGINEER Fuentes Persaud MD LAB BLOOD ORDERABLES Final Result Performing Organization Address City/[facility]/ZIP Co de Phone Number [facility] (FAN) 1 [facility] [place] [address] * (ABNORMAL) Basic metabolic panel (10/23/2024 5:38 AM SOLUTIONS ENGINEER) [facility] Sodium 139 135 - 145 mmol/L Potassium, pl 4.3 3.3 - 4.9 mmol/L [facility] (FAN) Chloride 99 97 - 110 mmol/L [facility] (FAN) CO2 22 22 - 32 mmol/L [facility] (FAN) Anion gap 18(H) 2 - 15 mmol/L [facility] BUN 39(H) 6 - 25 mg/dL [facility] ([place]AN) Creatinine 6.14(H) 0.60 - 1.10 mg/dL [facility] ([place]AN) Glucose 259(H) 70 - 199 mg/dL [facility] Comment: Interpretive Data Fasting glucose [...] 2022. Calcium 8.8 8.5 - 10.3 mg/dL JOHAN KARLA (FAN) Blood 10/23/2024 5:38 AM SOLUTIONS ENGINEER 10/23/2024 5:47 AM SOLUTIONS ENGINEER us Fuentes Persaud MD LAB BLOOD ORDERABLES Final Result [facility] [facility] ([place]) 1 [facility] [place] [place] [address] * (ABNORMAL) POCT glucose (10/23/2024 5:12 AM SOLUTIONS ENGINEER) Glucose, POC 260(H) 70 - 199 mg/dL Blood 10/23/2024 5:12 AM SOLUTIONS ENGINEER 10/23/2024 5:12 AM SOLUTIONS ENGINEER us Fuentes Persaud MD LAB POCT ORDERABLES - BRITTANY CE Final Result Performing Organization Address City/[facility]/ZIP Co de Phone Number JOHAN [facility] ([place]) 1 [facility] [place] [address] * (ABNORMAL) POCT glucose (10/23/2024 12:06 AM SOLUTIONS ENGINEER) Glucose, POC 256(H) 70 - 199 mg/dL Blood 10/23/2024 12:0 6 AM SOLUTIONS ENGINEER 10/23/2024 12:06 AM SOLUTIONS ENGINEER us Fuentes Persaud MD LAB POCT ORDERABLES - BRITTANY CE Final Result JOHAN ACOSTA ([place]) 1 [facility] [place] [address] * ECG 12 lead (10/22/2024 8:24 PM SOLUTIONS ENGINEER) 10/22/2024 8:24 PM SOLUTIONS ENGINEER Narrative [facility] - 10/23/2024 6:25 AM SOLUTIONS ENGINEER Vent Rate: 70 bpm RR Interval: 846 msec DE Interval: 239 msec QRS Duration: 119 msec QT Interval: 427 msec QTC Interval: 449 msec P-R-T Perley: 76 - 74 - 92 degrees IMPRESSION: [...] NOTED Electronically Signed By: Jeremy Calix MD Yariel Alfredo MD ECG ORDERABLES Final Result Performing Organization Address [facility]/ZIP Co de Phone Number [facility] * (ABNORMAL) POCT glucose (10/22/2024 7:18 PM SOLUTIONS ENGINEER) Glucose, POC 262(H) 70 - 199 mg/dL Blood 10/22/2024 7:18 PM SOLUTIONS ENGINEER 10/22/2024 7:18 PM SOLUTIONS ENGINEER Fuentes Persaud MD LAB POCT ORDERABLES - BRITTANY CE Final Result Performing Organization Address City/[facility]/ZIP Co de Phone Number JOHAN [facility] ([place]AN) 1 [facility] [place] [address] * (ABNORMAL) POCT glucose (10/22/2024 6:36 PM SOLUTIONS ENGINEER) Glucose, POC 261(H) 70 - 199 mg/dL Blood 10/22/2024 6:36 PM SOLUTIONS ENGINEER 10/22/2024 6:36 PM SOLUTIONS ENGINEER Fuentes Persaud MD LAB POCT ORDERABLES - BRITTANY CE Final Result Performing Organization Address City/[facility]/ZIP Co de Phone Number JOHAN [facility] ([place]) [address] [place] [address] Department [place] [address] * (ABNORMAL) MRSA Only (Staphylococcus aureus) PCR Nasal (10/22/2024 5:32 PM SOLUTIONS ENGINEER) [facility] PCR Scrn, Methicillin resistant Staphylococcus aureus (MRSA) Detected( A) Not Detected Comment: Interpretive Data Testing performed using Nucleic Acid Amplification with the [employer] Xpert MRSA NxG Assay. This assay detects target DNA from mecA, mecC and the SCCmec insertion site of Staphylococcus aureus using Real-Time PCR and has been cleared by the FDA. Performance characteristics have been verified by the [facility]. Current Interpretive Data was last revised on 2023 Nasal 10/22/2024 5:32 PM SOLUTIONS ENGINEER 10/22/2024 5:52 PM SOLUTIONS ENGINEER Fuentes Persaud MD LAB MICROBIOLOGY - GENERAL ORDERABLES Final Result JOHAN ACOSTA ([place]) [address] [place] [address] [place] [address] * (ABNORMAL) Troponin T high-sensitivity 6-hour (10/22/2024 5:04 PM SOLUTIONS ENGINEER) [facility] Trop T hs 128(H) <=14 ng/L Comment: Interpretive Data For further hscTnT resources including the diagnostic algorithm and an aid in interpretation, copy and paste this link: https://nrl.testcatalog.org/show/hsTrop Current Interpretive Data last revised 2020. Trop T hs pct delta 23(C) % JOHAN ACOSTA ([place]) Comment:Critical Result call ed by [email or web address] at 2024-10-22 17:49:17. Result Read Back by Hollie Mars (ED cordwood cutter helper) Trop T hs interp Significa nt(C) JOHAN ACOSTA ([place]) Comment:Critical Result call ed by [email or web address] at 2024-10-22 17:49:17. Result Read Back by Hollie Mars (ED cordwood cutter helper) Blood 10/22/2024 5:04 PM SOLUTIONS ENGINEER 10/22/2024 5:28 PM SOLUTIONS ENGINEER Vincenzo Montgomery MD LAB BLOOD ORDERABLES Final Result Performing Organization Address City/[facility]/ZIP Co de Phone Number JOHAN ACOSTA ([place]) 1 [facility] [place] [address] * (ABNORMAL) Troponin T high-sensitivity 4-hour (10/22/2024 4:22 PM SOLUTIONS ENGINEER) Trop T hs 126(H) <=14 ng/L Comment: Interpretive Data For further hscTnT resources including the diagnostic algorithm and an aid in interpretation, copy and paste this link: https://nrl.testcatalog.org/show/hsTrop Current Interpretive Data last revised 2020. Trop T hs delta See Comment ng/L CE RNMELISSA ACOSTA ([place]) Comment:Inappropriate collec tion time to report a delta. Trop T hs pct delta See Comment % JOHAN ACOSTA ([place]) Comment:Inappropriate collec tion time to report a delta. Trop T hs interp See Comment C SIENNA ACOSTA ([place]) Comment:Inappropriate collec tion time to report a delta. Blood 10/22/2024 4:22 PM SOLUTIONS ENGINEER 10/22/2024 4:26 PM SOLUTIONS ENGINEER us Vincenzo Montgomery MD LAB BLOOD ORDERABLES Final Result Performing Organization Address [facility]/ZIP Co de Phone Number JOHAN ACOSTA ([place]) 1 [facility] [place] [address] * (ABNORMAL) POCT glucose (10/22/2024 4:20 PM SOLUTIONS ENGINEER) Glucose, POC 241(H) 70 - 199 mg/dL Blood 10/22/2024 4:20 PM SOLUTIONS ENGINEER 10/22/2024 4:20 PM SOLUTIONS ENGINEER Fuentes Persaud MD LAB POCT ORDERABLES - BRITTANY CE Final Result Performing Organization Address City/[facility]/ZIP Co de Phone Number JOHAN ACOSTA ([place]) 1 [facility] [place] [address] * DE CRITICAL CARE ILL/INJURED PATIENT INIT 30-74 MIN (10/22/2024 3:53 PM SOLUTIONS ENGINEER) Narrative Vincenzo Montgomery MD - 10/22/2024 3:53 PM SOLUTIONS ENGINEER Vincenzo Montgomery MD 10/22/2024 3:55 PM Critical [...] patient to a continuous cardiac monitored bed. us Vincenzo Montgomery MD IN CLINIC/BEDSIDE ORDERABLE S Final Result * Ammonia (10/22/2024 2:17 PM SOLUTIONS ENGINEER) Ammonia 27 <=50 mcmol/L Blood 10/22/2024 2:17 PM SOLUTIONS ENGINEER 10/22/2024 2:22 PM SOLUTIONS ENGINEER Vincenzo Montgomery MD LAB BLOOD ORDERABLES Final Result JOHAN ACOSTA ([place]) 1 [facility] [place] [address] * POCT glucose (10/22/2024 2:01 PM SOLUTIONS ENGINEER) [facility] Glucose, POC 173 70 - 199 mg/dL Blood 10/22/2024 2:01 PM SOLUTIONS ENGINEER 10/22/2024 2:01 PM SOLUTIONS ENGINEER Vincenzo Montgomery MD LAB POCT ORDERABLES - DEVIC E Final Result Performing Organization Address [facility] Co de Phone Number JOHAN ACOSTA ([place]) 1 [place] [address] * (ABNORMAL) Troponin T high-sensitivity 2-hour (10/22/2024 1:58 PM SOLUTIONS ENGINEER) [facility] Trop T hs 116(H) <=14 ng/L Comment: Interpretive Data For further hscTnT resources including the diagnostic algorithm and an aid in interpretation, copy and paste this link: https://nrl.testcatalog.org/show/hsTrop Current Interpretive Data last revised 2020. Trop T hs pct delta 12 % [facility] ([place]AN) Trop T hs interp Equivocal [facility] (FAN) Blood 10/22/2024 1:58 PM SOLUTIONS ENGINEER 10/22/2024 2:05 PM SOLUTIONS ENGINEER Vincenzo Montgomery MD LAB BLOOD ORDERABLES Final Result [facility] ([place]AN) 1 [facility] [place] [address] * (ABNORMAL) Blood gas, arterial (10/22/2024 1:49 PM SOLUTIONS ENGINEER) Pathologist [facility] pH, Art 7.30(L) 7.35 - 7.45 PCO2, Arterial 54(H) 35 - 45 mmHg [facility] ([place]AN) PO2, Arterial 98 83 - 108 mmHg [facility] ([place]AN) HCO3 Art (Calculated) 26 20 - 30 mmol/L [facility] ([place]AN) BE, art 0 mmol/L [facility] ([place]AN) Comment: Interpretive Data No Reference Range Established Current Interpretive Data was last revised on 2017 O2 Sat Art (Measured) 98(H) 90 - 95 % [facility] ([place]) Blood 10/22/2024 1:49 PM SOLUTIONS ENGINEER 10/22/2024 1:52 PM SOLUTIONS ENGINEER us Vincenzo Montgomery MD LAB BLOOD ORDERABLES Final Result JOHAN KARLA ([place]) 1 [facility] [place] [address] * Sepsis Lactate w/ Reflex (10/22/2024 12:32 PM SOLUTIONS ENGINEER) Sepsis Lactate 1.1 0.7 - 2.0 mmol/L Blood 10/22/2024 12:3 2 PM SOLUTIONS ENGINEER 10/22/2024 12:35 PM SOLUTIONS ENGINEER Vincenzo Montgomery MD LAB BLOOD ORDERABLES Final Result Performing Organization Address City/[facility]/ZIP Co de Phone Number JOHAN ACOSTA ([place]) 1 [facility] [place] [address] * ABO/Rh (10/22/2024 12:32 PM SOLUTIONS ENGINEER) ABO/Rh O Positive Blood 10/22/2024 12:3 2 PM SOLUTIONS ENGINEER 10/22/2024 12:35 PM SOLUTIONS ENGINEER Narrative JOHAN KARLA ([place]AN) - 10/22/2024 1:02 PM SOLUTIONS ENGINEER Has the patient had Daratumumab or Isatuximab in the past 6 months?->Unknown Vincenzo Montgomery MD LAB BLOOD BANK TEST ORDERAB LES Final Result JOHAN ACOSTA ([place]) [address] [place] [address] * Antibody screen (10/22/2024 12:32 PM SOLUTIONS ENGINEER) Karon, indirect, Gel Interpretation Negative ABSC Blood 10/22/2024 12:3 2 PM SOLUTIONS ENGINEER 10/22/2024 12:35 PM SOLUTIONS ENGINEER Narrative JOHAN PaganFAN) - 10/22/2024 1:12 PM SOLUTIONS ENGINEER Has the patient had Daratumumab or Isatuximab in the past 6 months?->Unknown Vincenzo Montgomery MD LAB BLOOD BANK TEST ORDERAB LES Final Result JOHAN PaganAUSTIN) 1 [facility] [place] [address] * Blood culture Blood (10/22/2024 11:24 AM SOLUTIONS ENGINEER) Report Final Report: No growth Comment:Testing performed by : [facility], 1 [facility] [place] [address] Blood 10/22/2024 11:2 4 AM SOLUTIONS ENGINEER 10/22/2024 2:05 PM SOLUTIONS ENGINEER Narrative JOHAN ACOSTA (FAN) - 10/26/2024 4:00 PM SOLUTIONS ENGINEER Collection->Peripheral 1. Blood cultures are incubated for [...] performance characteristics have been verified by the [facility]. For questions about this culture, contact the Microbiology Laboratory at [phone]. Interpretive data was last revised on 24. Vincenzo Montgomery MD LAB MICROBIOLOGY - GENERAL ORDERABLES Final Result Performing Organization Address City/[facility]/ZIP Co de Phone Number JOHAN ACOSTA [place]) [address] [place] [address] [place] [address] * (ABNORMAL) Troponin T high-sensitivity series (baseline, 2hr, 4hr, 6hr) (10/22/2024 11:20 AM SOLUTIONS ENGINEER) Trop T hs 104(H) <=14 ng/L Comment: Interpretive Data For further hscTnT resources including the diagnostic algorithm and an aid in interpretation, copy and paste this link: https://nrl.testcatalog.org/show/hsTrop Current Interpretive Data last revised 2020. Blood 10/22/2024 11:2 0 AM SOLUTIONS ENGINEER 10/22/2024 11:29 AM SOLUTIONS ENGINEER Vincenzo Montgomery MD LAB BLOOD ORDERABLES Final Result Performing Organization Address City/[facility] Co de Phone Number JOHAN ACOSTA ([place]AN) 1 [facility] [place] [address] * (ABNORMAL) eGFR (10/22/2024 11:20 AM SOLUTIONS ENGINEER) eGFR 8(L) >=60 mL/min/1. 73 m2 Comment: [...] reviewed 2021. Blood 10/22/2024 11:2 0 AM SOLUTIONS ENGINEER 10/22/2024 11:29 AM SOLUTIONS ENGINEER us Vincenzo Montgomery MD LAB BLOOD ORDERABLES Final Result [facility] ([place]) 1 [facility] [place] [address] * (ABNORMAL) Pro B-type natriuretic peptide (10/22/2024 11:20 AM SOLUTIONS ENGINEER) NT-proBNP 3,884(H) <=300 pg/mL Comment: Interpretive Comments: [...] Date: 2018. Blood 10/22/2024 11:2 0 AM SOLUTIONS ENGINEER 10/22/2024 11:29 AM SOLUTIONS ENGINEER Vincenzo Montgomery MD LAB BLOOD ORDERABLES Final Result JOHAN ACOSTA ([place]) 1 [facility] [place] [address] * (ABNORMAL) Blood culture Blood (10/22/2024 11:20 AM SOLUTIONS ENGINEER) Direct Specimen Exam Molecular Analysis: Streptococcus species [...] tant) called to and read back by: [phone] Lily Flor MT on 10/23/2024 10:37:57 by: Rohan Weber MT Test result called to and read back by Rowan Salvador (ICU) on 10/23/2024 11:07:52 by Amber Ohara Comment:Testing performed by : [facility], [address] [place] [address], [place]., [address] Direct Specimen Exam Stain: Gram Positive Cocci Time to culture positivity (aerobic media): 14.5 hours Notification of: Gram Positive Cocci called to and read back by: Israel Velazquez MLT [phone]) on 10/23/2024 05:12:59 by: Heri Brunson MLS Test result called to and read back by susana dean on 10/23/2024 05:39:13 by israel ACOSTA ([place]) Comment:Testing performed by : [facility], [address] [place]., [address] Report Final Report: Staphylococcus hominis Single blood [...] JOHAN ACOSTA ([place]) Comment:Testing performed by : [facility], [address] [place]., [address] Organism STAPHYLOCOCCUS HOMINIS JOHAN ACOSTA (FAN) Organism STREPTOCOCCUS MITIS GROUP JOHAN ACOSTA (FAN) Organism STAPHYLOCOCCUS EPIDERMIDIS JOHAN ACOSTA ([place]AN) Blood 10/22/2024 11:2 0 AM SOLUTIONS ENGINEER 10/22/2024 2:05 PM SOLUTIONS ENGINEER Narrative JOHAN ACOSTA ([place]) - 10/28/2024 2:02 PM SOLUTIONS ENGINEER Collection->Peripheral 1. Blood cultures are incubated for [...] performance characteristics have been verified by the [facility]. For questions about this culture, contact the Microbiology Laboratory at [phone]. Interpretive data was last revised on 24. Vincenzo Montgomery MD LAB MICROBIOLOGY - GENERAL ORDERABLES Final Result Performing Organization Address City/[facility]/ZIP Co de Phone Number JOHAN ACOSTA ([place]) 1 [facility] [place] [address] * (ABNORMAL) CRP (acute phase) (10/22/2024 11:20 AM SOLUTIONS ENGINEER) CRP 81.9(H) <=10.0 mg/L Blood 10/22/2024 11:2 0 AM SOLUTIONS ENGINEER 10/22/2024 11:29 AM SOLUTIONS ENGINEER Vincenzo Montgomery MD LAB BLOOD ORDERABLES Final Result Performing Organization Address City/[facility] Co de Phone Number JOHAN ACOSTA (FAN) [address] [place] [address] * (ABNORMAL) Comprehensive metabolic panel (10/22/2024 11:20 AM SOLUTIONS ENGINEER) Sodium 136 135 - 145 mmol/L Potassium, [...] [facility] (FAN) Blood 10/22/2024 11:2 0 AM SOLUTIONS ENGINEER 10/22/2024 11:29 AM SOLUTIONS ENGINEER Vincenzo Montgomery MD LAB BLOOD ORDERABLES Final Result Performing Organization Address [facility] de Phone Number JOHAN ACOSTA (FAN) 1 [facility] Department of Laboratories [place] [id number] * ECG 12 lead (10/22/2024 11:16 AM SOLUTIONS ENGINEER) 10/22/2024 11:1 6 AM SOLUTIONS ENGINEER Narrative [facility] - 10/23/2024 6:27 AM SOLUTIONS ENGINEER Vent Rate: 93 bpm RR Interval: 641 msec DE Interval: 199 msec QRS Duration: 102 msec QT Interval: 399 msec QTC Interval: 450 msec P-R-T Perley: 79 - 62 - 83 degrees IMPRESSION: SINUS RHYTHM LOW QRS VOLTAGE IN PRECORDIAL LEADS [QRS DEFLECTION < 1.0 mV IN CHEST LEADS] BORDERLINE ECG NO CHANGE FROM PREVIOUS TRACING NOTED Electronically Signed By: Jeremy Calix MD Vincenzo Montgomery MD ECG ORDERABLES Final Resul t Performing Organization Address City/[facility] Co de Phone Number [facility] * XR Chest 1 Vw Portable (10/22/2024 11:08 AM SOLUTIONS ENGINEER) Anatomical Region Laterality Modality Body, Chest N/A Computed Radiogr aphy 10/22/2024 11:3 3 AM SOLUTIONS ENGINEER Narrative 10/22/2024 11:37 AM SOLUTIONS ENGINEER EXAM DESCRIPTION: XR CHEST 1 VIEW REASON [...] FINDINGS: The patient is rotated and tilted [id number]. The examination is severely limited by patient's [...] Harjinder Coello D.O. AP: AP Report ID: [id number] Reading Location: [id number] Procedure Note Harjinder Coello, DO - 10/22/2024 EXAM DESCRIPTION: XR CHEST [...] FINDINGS: The patient is rotated and tilted [id number]. The examination isseverely limited by patient's body [...] Harjinder Coello D.O. AP: AP Report ID: [id number] Reading Location: [place] [address] Vincenzo Montgomery MD IMG XR PROCEDURES Final Res ult * (ABNORMAL) Influenza A/B, RSV, and COVID-19 PCR Nasopharyngeal (10/22/2024 11:03 AM SOLUTIONS ENGINEER) COVID-19 RNA Negative Negative Influenza A RNA Positive(A) Negative [facility] ([place]) Influenza B RNA Negative Negative [facility] ([place]) RSV RNA Negative Negative [facility] ([place]) Comment: Interpretive data: Testing performed by [facility]. This test is performed using the [employer] Xpert Xpress CoV-2/Flu/RSV plus assay. This is a multiplex, real- time reverse transcriptase PCR assay intended for the qualitative detection of nucleic acid from SARS-CoV-2, influenza A, influenza B, and respiratory syncytial virus. This assay has been cleared by the [place] Food and Drug administration. The performance characteristics have been verified by the [facility]. Results must be considered in the clinical context, and a negative result does not rule out infection. Interpretive Data last revised 2023 Nasopharyngeal 10/22/2024 11 :03 AM SOLUTIONS ENGINEER 10/22/2024 11:09 AM SOLUTIONS ENGINEER Narrative [facility] ([place]) - 10/22/2024 11:48 AM SOLUTIONS ENGINEER Is the Patient experiencing symptoms consistent with COVID?->Yes Vincenzo Montgomery MD LAB MICROBIOLOGY - GENERAL ORDERABLES Final Result [facility] ([place]) 1 [facility] Department [place] [address] * (ABNORMAL) Differential, auto (10/22/2024 11:03 AM SOLUTIONS ENGINEER) Neutrophil abs 3.9 1.5 - 6.5 K/cumm Imm gran abs 0.0 0.0 - 0.1 K/cumm [facility] ([place]) Lymphocyte abs 0.4(L) 0.8 - 3.3 K/cumm [facility] ([place]) Monocyte abs 0.3 0.2 - 0.8 K/cumm [facility] ([place]) Eosinophil abs 0.0 0.0 - 0.5 K/cumm [facility] ([place]) Basophil abs 0.0 0.0 - 0.1 K/cumm [facility] ([place]) Neutrophil pct 84.3 % [facility] ([place]) Comment: Consistent with previous result Interpretive Data Percent cell count reference ranges are not reported, since discordance with absolute values may lead to misinterpretation of CBC data. Current Interpretive Data was last revised on 2017. Imm gran pct 0.6 % [facility] ([place]) Comment: Interpretive Data Percent cell count reference ranges are not reported, since discordance with absolute values may lead to misinterpretation of CBC data. Current Interpretive Data was last revised on 2017. Lymphocyte pct 8.4 % [facility] ([place]) Comment: Interpretive Data Percent cell count reference ranges are not reported, since discordance with absolute values may lead to misinterpretation of CBC data. Current Interpretive Data was last revised on 2017. Monocyte pct 6.7 % [facility] ([place]) Comment: Interpretive Data [...] on 2017. Blood 10/22/2024 11:0 3 AM SOLUTIONS ENGINEER 10/22/2024 11:09 AM SOLUTIONS ENGINEER Vincenzo Montgomery MD LAB BLOOD ORDERABLES Final Result [facility] ([place]) 1 [facility] Department [place] [address] * (ABNORMAL) CBC with auto differential (10/22/2024 11:03 AM SOLUTIONS ENGINEER) WBC 4.6 3.8 - 9.9 K/cumm Hgb [...] ([place]) MCHC 30.9(L) 32.3 - 35.7 g/dL [facility] ([place]) RDW CV 16.3(H) 11.1 - 14.9 % [facility] ([place]) RDW SD 58.6(H) 35.7 - 48.1 fL [facility] ([place]) NRBC abs 0.00 0.00 - 0.01 K/cumm [facility] ([place]) Blood 10/22/2024 11:0 3 AM SOLUTIONS ENGINEER 10/22/2024 11:09 AM SOLUTIONS ENGINEER Vincenzo Montgomery MD LAB BLOOD ORDERABLES Final Result [facility] ([place]) 1 [facility] [place] [address] * Sepsis Lactate w/ Reflex (10/22/2024 10:55 AM SOLUTIONS ENGINEER) Pathologist [facility] Sepsis Lactate 1.2 0.7 - 2.0 mmol/L Blood 10/22/2024 10:5 5 AM SOLUTIONS ENGINEER 10/22/2024 10:57 AM SOLUTIONS ENGINEER Vincenzo Montgomery MD LAB BLOOD ORDERABLES Final Result Performing Organization Address City/[facility] Co de Phone Number [facility] ([place]) 1 [facility] [place] [address] * (ABNORMAL) Blood gas, arterial (10/22/2024 10:54 AM SOLUTIONS ENGINEER) pH, Art 7.28(L) 7.35 - 7.45 PCO2, Arterial 58(H) 35 - 45 mmHg [facility] ([place]) PO2, Arterial 68(L) 83 - 108 mmHg [facility] ([place]) HCO3 Art (Calculated) 26 20 - 30 mmol/L [facility] BE, art 0 mmol/L [facility] ([place]) Comment: Interpretive Data No Reference Range Established Current Interpretive Data was last revised on 2017 O2 Sat Art (Measured) 92 90 - 95 % [facility] ([place]) Blood 10/22/2024 10:5 4 AM SOLUTIONS ENGINEER 10/22/2024 10:57 AM SOLUTIONS ENGINEER Vincenzo Montgomery MD LAB BLOOD ORDERABLES Final Result Performing Organization Address [facility] Co de Phone Number [facility] ([place]) 1 [facility] [place] [address] * (ABNORMAL) POCT glucose (10/19/2024 12:19 PM SOLUTIONS ENGINEER) Glucose, POC 202(H) 70 - 199 mg/dL Blood 10/19/2024 12:1 9 PM SOLUTIONS ENGINEER 10/19/2024 12:19 PM SOLUTIONS ENGINEER Kimmy Velez MD LAB POCT ORDERABLES - DEVICE F inal Result Performing Organization Address [facility] de Phone Number [facility] ([place]) 1 [facility] [place] [address] * POCT glucose (10/19/2024 8:24 AM SOLUTIONS ENGINEER) Glucose, POC 143 70 - 199 mg/dL Blood 10/19/2024 8:24 AM SOLUTIONS ENGINEER 10/19/2024 8:24 AM SOLUTIONS ENGINEER Kimmy Velez MD LAB POCT ORDERABLES - DEVICE F inal Result Performing Organization Address [facility] de Phone Number [facility] ([place]) 1 [facility] [place] [address] * (ABNORMAL) eGFR (10/19/2024 2:27 AM SOLUTIONS ENGINEER) eGFR 10(L) >=60 mL/min/1. 73 m2 Comment: [...] last reviewed 2021. Blood 10/19/2024 2:27 AM SOLUTIONS ENGINEER 10/19/2024 2:30 AM SOLUTIONS ENGINEER us Sujata Duron MD LAB BLOOD ORDERABLES nal Result [facility] ([place]) 1 [facility] Department [place] [address] * (ABNORMAL) Differential, auto (10/19/2024 2:27 AM SOLUTIONS ENGINEER) Neutrophil abs 3.3 1.5 - 6.5 K/cumm Imm gran abs 0.1 0.0 - 0.1 K/cumm [facility] ([place]) Lymphocyte abs 0.5(L) 0.8 - 3.3 K/cumm [...] revised on 2017. Blood 10/19/2024 2:27 AM SOLUTIONS ENGINEER 10/19/2024 2:30 AM SOLUTIONS ENGINEER us Sujata Duron MD LAB BLOOD ORDERABLES nal Result [facility] ([place]) 1 [facility] Department [place] [address] * (ABNORMAL) CBC with auto differential (10/19/2024 2:27 AM SOLUTIONS ENGINEER) WBC 4.2 3.8 - 9.9 K/cumm Hgb 7.5(L) 11.9 - 15.5 g/dL [facility] ([place]) Hct 24.6(L) 35.6 - 45.5 % [facility] ([place]) Plt 127(L) 150 - 400 K/cumm [facility] ([place]) MPV 9.4 9.1 - 12.3 fL [facility] ([place]) RBC 2.55(L) 3.90 - 5.20 M/cumm [facility] ([place]) MCV 96.5(H) 81.3 - 96.4 fL [facility] MCH 29.4 27.1 - 33.3 pg [facility] ([place]) MCHC 30.5(L) 32.3 - 35.7 g/dL [facility] ([place]) RDW CV 15.6(H) 11.1 - 14.9 % [facility] ([place]) RDW SD 54.8(H) 35.7 - 48.1 fL [facility] NRBC abs 0.00 0.00 - 0.01 K/cumm [facility] ([place] Blood 10/19/2024 2:27 AM SOLUTIONS ENGINEER 10/19/2024 2:30 AM SOLUTIONS ENGINEER Sujata Duron MD LAB BLOOD ORDERABLES Fi nal Result Performing Organization Address [facility]/ZIP Co de Phone Number [facility] ([place]) 1 [facility] [place] [address] * Magnesium (10/19/2024 2:27 AM SOLUTIONS ENGINEER) Pathologist [facility] Magnesium 1.6 1.4 - 2.5 mg/dL Blood 10/19/2024 2:27 AM SOLUTIONS ENGINEER 10/19/2024 2:30 AM SOLUTIONS ENGINEER Sujata Duron MD LAB BLOOD ORDERABLES Fi nal Result Performing Organization Address City/[facility] Co de Phone Number [facility] ([place]) 1 [facility] [place] [address] * (ABNORMAL) Comprehensive metabolic panel (10/19/2024 2:27 AM SOLUTIONS ENGINEER) Sodium 136 135 - 145 mmol/L Potassium, pl 3.9 3.3 - 4.9 mmol/L [facility] Chloride 98 97 - 110 mmol/L [facility]) CO2 26 22 - 32 mmol/L [facility] Anion gap 13 2 - 15 mmol/L [facility] BUN 40(H) 6 - 25 [...] [facility] ([place]) Blood 10/19/2024 2:27 AM SOLUTIONS ENGINEER 10/19/2024 2:30 AM SOLUTIONS ENGINEER us Sujata Duron MD LAB BLOOD ORDERABLES Fi nal Result [facility] ([place]) 1 [facility] [place] [address] * POCT glucose (10/19/2024 2:17 AM SOLUTIONS ENGINEER) Glucose, POC 189 70 - 199 mg/dL Blood 10/19/2024 2:17 AM SOLUTIONS ENGINEER 10/19/2024 2:17 AM SOLUTIONS ENGINEER us Kimmy Velez MD LAB POCT ORDERABLES - DEVICE F inal Result [facility] ([place]) 1 [facility] [place] [address] * POCT glucose (10/18/2024 8:18 PM SOLUTIONS ENGINEER) Glucose, POC 165 70 - 199 mg/dL Blood 10/18/2024 8:18 PM SOLUTIONS ENGINEER 10/18/2024 8:18 PM SOLUTIONS ENGINEER Kimmy Velez MD LAB POCT ORDERABLES - DEVICE F inal Result Performing Organization Address City/[facility]/ZIP Co de Phone Number [facility] ([place]) 1 [facility] [place] [address] * POCT glucose (10/18/2024 5:10 PM SOLUTIONS ENGINEER) Glucose, POC 178 70 - 199 mg/dL Blood 10/18/2024 5:10 PM SOLUTIONS ENGINEER 10/18/2024 5:10 PM SOLUTIONS ENGINEER Kimmy Velez MD LAB POCT ORDERABLES - DEVICE F inal Result Performing Organization Address [facility]/ZIP Co de Phone Number [facility] ([place]) 1 [facility] [place] [address] * (ABNORMAL) POCT glucose (10/18/2024 12:00 PM SOLUTIONS ENGINEER) Glucose, POC 201(H) 70 - 199 mg/dL Blood 10/18/2024 12:0 0 PM SOLUTIONS ENGINEER 10/18/2024 12:00 PM SOLUTIONS ENGINEER Kimmy Velez MD LAB POCT ORDERABLES - DEVICE F inal Result [facility] ([place]) 1 [facility] [place] [address] * POCT glucose (10/18/2024 9:10 AM SOLUTIONS ENGINEER) Glucose, POC 161 70 - 199 mg/dL Blood 10/18/2024 9:10 AM SOLUTIONS ENGINEER 10/18/2024 9:10 AM SOLUTIONS ENGINEER us Kimmy Velez MD LAB POCT ORDERABLES - DEVICE F inal Result Performing Organization Address City/[facility]/ZIP Co de Phone Number [facility] ([place]) 1 [facility] [place] [address] * (ABNORMAL) eGFR (10/18/2024 2:21 AM SOLUTIONS ENGINEER) eGFR 14(L) >=60 mL/min/1. 73 m2 Comment: [...] last reviewed 2021. Blood 10/18/2024 2:21 AM SOLUTIONS ENGINEER 10/18/2024 3:04 AM SOLUTIONS ENGINEER us Sujata Duron MD LAB BLOOD ORDERABLES Fi nal Result [facility] ([place]) 1 [facility] [place] [address] * Differential, auto (10/18/2024 2:21 AM SOLUTIONS ENGINEER) Neutrophil abs 4.1 1.5 - 6.5 K/cumm [...] revised on 2017. Blood 10/18/2024 2:21 AM SOLUTIONS ENGINEER 10/18/2024 3:03 AM SOLUTIONS ENGINEER us Sujata Duron MD LAB BLOOD ORDERABLES Fi nal Result [facility] ([place]) 1 [facility] [employer] [place] [address] * (ABNORMAL) CBC with auto differential (10/18/2024 2:21 AM SOLUTIONS ENGINEER) WBC 5.3 3.8 - 9.9 K/cumm Hgb [...] RDW CV 15.7(H) 11.1 - 14.9 % [facility] ([place]) RDW SD 55.7(H) 35.7 - 48.1 fL [facility] ([place]) NRBC abs 0.00 0.00 - 0.01 K/cumm [facility] ([place]) Blood 10/18/2024 2:21 AM SOLUTIONS ENGINEER 10/18/2024 3:03 AM SOLUTIONS ENGINEER us Sujata Duron MD LAB BLOOD ORDERABLES Fi nal Result [facility] ([place]) 1 [facility] [place] [address] * Magnesium (10/18/2024 2:21 AM SOLUTIONS ENGINEER) Magnesium 1.7 1.4 - 2.5 mg/dL Blood 10/18/2024 2:21 AM SOLUTIONS ENGINEER 10/18/2024 3:04 AM SOLUTIONS ENGINEER us Sujata Duron MD LAB BLOOD ORDERABLES Fi nal Result [facility] ([place]) 1 [facility] Department [place] [address] * (ABNORMAL) Comprehensive metabolic panel (10/18/2024 2:21 AM SOLUTIONS ENGINEER) Sodium 137 135 - 145 mmol/L Potassium, pl 3.9 3.3 - 4.9 mmol/L [facility] ([place]) Chloride 97 97 - 110 mmol/L [facility] ([place]) CO2 27 22 - 32 mmol/L [facility] ([place]) Anion gap 13 2 - 15 mmol/L [facility] ([place]) BUN 35(H) 6 - 25 mg/dL [facility] ([place]) Creatinine 3.44(H) 0.60 - 1.10 mg/dL [facility] ([place] Glucose 170 70 - 199 mg/dL [facility] ([place] Comment: Interpretive Data Fasting glucose [...] [facility] ([place]) Blood 10/18/2024 2:21 AM SOLUTIONS ENGINEER 10/18/2024 3:04 AM SOLUTIONS ENGINEER us Sujata Duron MD LAB BLOOD ORDERABLES Fi nal Result [facility] ([place]) 1 [facility] [place] [place] [address] * POCT glucose (10/18/2024 2:20 AM SOLUTIONS ENGINEER) Glucose, POC 184 70 - 199 mg/dL Blood 10/18/2024 2:20 AM SOLUTIONS ENGINEER 10/18/2024 2:20 AM SOLUTIONS ENGINEER Kimmy Velez MD LAB POCT ORDERABLES - DEVICE F inal Result [facility] ([place]) 1 [facility] [place] [place] [address] * POCT glucose (10/17/2024 8:15 PM SOLUTIONS ENGINEER) Glucose, POC 177 70 - 199 mg/dL Blood 10/17/2024 8:15 PM SOLUTIONS ENGINEER 10/17/2024 8:15 PM SOLUTIONS ENGINEER Kimmy Velez MD LAB POCT ORDERABLES - DEVICE F inal Result [facility] ([place]) 1 [facility] [place] [address] * POCT glucose (10/17/2024 4:41 PM SOLUTIONS ENGINEER) Glucose, POC 196 70 - 199 mg/dL Blood 10/17/2024 4:41 PM SOLUTIONS ENGINEER 10/17/2024 4:41 PM SOLUTIONS ENGINEER Kimmy Velez MD LAB POCT ORDERABLES - DEVICE F inal Result Performing Organization Address [facility] Co de Phone Number [facility] ([place]) 1 [facility] [place] [address] * POCT glucose (10/17/2024 12:43 PM SOLUTIONS ENGINEER) Glucose, POC 140 70 - 199 mg/dL Blood 10/17/2024 12:4 3 PM SOLUTIONS ENGINEER 10/17/2024 12:43 PM SOLUTIONS ENGINEER Kimmy Velez MD LAB POCT ORDERABLES - DEVICE F inal Result Performing Organization Address [facility] de Phone Number [facility] ([place]) 1 [facility] [place] [address] * POCT glucose (10/17/2024 2:13 AM SOLUTIONS ENGINEER) Glucose, POC 119 70 - 199 mg/dL Blood 10/17/2024 2:13 AM SOLUTIONS ENGINEER 10/17/2024 2:13 AM SOLUTIONS ENGINEER Emilia Damian MD LAB POCT ORDERABLES - DEV ICE Final Result Performing Organization Address [facility] Co de Phone Number [facility] ([place]) 1 [facility] [place] [address] * (ABNORMAL) eGFR (10/17/2024 12:13 AM SOLUTIONS ENGINEER) eGFR 9(L) >=60 mL/min/1. 73 m2 Comment: [...] reviewed 2021. Blood 10/17/2024 12:1 3 AM SOLUTIONS ENGINEER 10/17/2024 12:23 AM SOLUTIONS ENGINEER us Sujata Duron MD LAB BLOOD ORDERABLES Fi nal Result [facility] ([place]) 1 [facility] Department [place] [address] * (ABNORMAL) Differential, auto (10/17/2024 12:13 AM SOLUTIONS ENGINEER) Neutrophil abs 6.0 1.5 - 6.5 K/cumm [...] on 2017. Blood 10/17/2024 12:1 3 AM SOLUTIONS ENGINEER 10/17/2024 12:23 AM SOLUTIONS ENGINEER us Lesley Cruz MD LAB BLOOD ORDERABLES Final Result [facility] ([place]) 1 [facility] [place] [address] * (ABNORMAL) CBC with auto differential (10/17/2024 12:13 AM SOLUTIONS ENGINEER) WBC 7.2 3.8 - 9.9 K/cumm Hgb 7.9(L) 11.9 - 15.5 g/dL [facility] ([place]) Hct 26.6(L) 35.6 - 45.5 % [facility] ([place]) Plt 127(L) 150 - 400 K/cumm [facility] ([place]) MPV 9.8 9.1 - 12.3 fL [facility] ([place]) RBC 2.64(L) 3.90 - 5.20 M/cumm [facility] ([place]) MCV 100.8(H) 81.3 - 96.4 fL [facility] ([place]) MCH 29.9 27.1 - 33.3 pg [facility] ([place]) MCHC 29.7(L) 32.3 - 35.7 g/dL [facility] ([place]) RDW CV 16.0(H) 11.1 - 14.9 % [facility] ([place]) RDW SD 58.3(H) 35.7 - 48.1 fL [facility] ([place]) NRBC abs 0.00 0.00 - 0.01 K/cumm [facility] ([place]) Blood 10/17/2024 12:1 3 AM SOLUTIONS ENGINEER 10/17/2024 12:23 AM SOLUTIONS ENGINEER Sujata Duron MD LAB BLOOD ORDERABLES Fi nal Result Performing Organization Address City/[facility] Co de Phone Number [facility] ([place]) 1 [facility] [place] [address] * (ABNORMAL) Phosphorus (10/17/2024 12:13 AM SOLUTIONS ENGINEER) Phosphorus, pl 7.1(H) 2.3 - 4.5 mg/dL Blood 10/17/2024 12:1 3 AM SOLUTIONS ENGINEER 10/17/2024 12:23 AM SOLUTIONS ENGINEER Sujata Duron MD LAB BLOOD ORDERABLES Fi nal Result Performing Organization Address City/[facility]/ZIP Co de Phone Number [facility] ([place]) 1 [facility] [place] [address] * Magnesium (10/17/2024 12:13 AM SOLUTIONS ENGINEER) Magnesium 1.8 1.4 - 2.5 mg/dL Blood 10/17/2024 12:1 3 AM SOLUTIONS ENGINEER 10/17/2024 12:23 AM SOLUTIONS ENGINEER Sujata Duron MD LAB BLOOD ORDERABLES Fi nal Result Performing Organization Address City/[facility] Co de Phone Number [facility] ([place]) 1 [facility] [place] [address] * (ABNORMAL) Comprehensive metabolic panel (10/17/2024 12:13 AM SOLUTIONS ENGINEER) Sodium 140 135 - 145 mmol/L Potassium, pl 5.5(H) 3.3 - 4.9 mmol/L [facility] ([place]) Chloride 102 97 - 110 mmol/L [facility] ([place]) CO2 23 22 - 32 mmol/L [facility] ([place]) Anion gap 15 2 - 15 mmol/L [facility] ([place]) BUN 68(H) 6 - 25 mg/dL [facility] ([place]) Creatinine 5.14(H) 0.60 - 1.10 mg/dL [facility] ([place]) Glucose 112 70 - 199 mg/dL [facility] ([place]) [...] Hemolyzed Specimen Blood 10/17/2024 12:1 3 AM SOLUTIONS ENGINEER 10/17/2024 12:23 AM SOLUTIONS ENGINEER us Sujata Duron MD LAB BLOOD ORDERABLES Fi nal Result Performing Organization Address City/[facility]/ZIP Co de Phone Number [facility] ([place]) 1 [facility] [place] [address] * (ABNORMAL) Potassium (10/16/2024 9:06 PM SOLUTIONS ENGINEER) Potassium, pl 5.4(H) 3.3 - 4.9 mmol/L Blood 10/16/2024 9:06 PM SOLUTIONS ENGINEER 10/16/2024 9:15 PM SOLUTIONS ENGINEER Narrative [facility] ([place]) - 10/16/2024 9:37 PM SOLUTIONS ENGINEER Provider to discontinue after two normal results. us Lesley Cruz MD LAB BLOOD ORDERABLES Final Result Performing Organization Address [facility]/ZIP Co de Phone Number [facility] ([place]) 1 [facility] [place] [address] * POCT glucose (10/16/2024 8:49 PM SOLUTIONS ENGINEER) Glucose, POC 121 70 - 199 mg/dL Blood 10/16/2024 8:49 PM SOLUTIONS ENGINEER 10/16/2024 8:49 PM SOLUTIONS ENGINEER Emilia Damian MD LAB POCT ORDERABLES - DEV ICE Final Result [facility] ([place]) 1 [facility] [place] [address] * (ABNORMAL) Potassium (10/16/2024 5:31 PM SOLUTIONS ENGINEER) Potassium, pl 5.2(H) 3.3 - 4.9 mmol/L Blood 10/16/2024 5:31 PM SOLUTIONS ENGINEER 10/16/2024 5:33 PM SOLUTIONS ENGINEER Narrative [facility] ([place]) - 10/16/2024 5:49 PM SOLUTIONS ENGINEER Provider to discontinue after two normal results. us Lesley Cruz MD LAB BLOOD ORDERABLES Final Result Performing Organization Address City/[facility] Co de Phone Number [facility] ([place]) 1 [facility] [place] [address] * POCT glucose (10/16/2024 5:12 PM SOLUTIONS ENGINEER) Glucose, POC 179 70 - 199 mg/dL Blood 10/16/2024 5:12 PM SOLUTIONS ENGINEER 10/16/2024 5:12 PM SOLUTIONS ENGINEER us Emilia Damian MD LAB POCT ORDERABLES - DEV ICE Final Result Performing Organization Address [facility] de Phone Number [facility] ([place]) 1 [facility] [place] [address] * POCT glucose (10/16/2024 4:04 PM SOLUTIONS ENGINEER) Glucose, POC 193 70 - 199 mg/dL Blood 10/16/2024 4:04 PM SOLUTIONS ENGINEER 10/16/2024 4:04 PM SOLUTIONS ENGINEER us Emilia Damian MD LAB POCT ORDERABLES - DEV ICE Final Result Performing Organization Address [facility] Co de Phone Number [facility] ([place]) 1 [place] [address] * POCT glucose (10/16/2024 3:11 PM SOLUTIONS ENGINEER) Glucose, POC 157 70 - 199 mg/dL Blood 10/16/2024 3:11 PM SOLUTIONS ENGINEER 10/16/2024 3:11 PM SOLUTIONS ENGINEER us Emilia Damian MD LAB POCT ORDERABLES - DEV ICE Final Result [facility] ([place]) 1 [facility] [place] [address] * DE CRITICAL CARE ILL/INJURED PATIENT INIT 30-74 MIN (10/16/2024 2:08 PM SOLUTIONS ENGINEER) Narrative Fabricio Flores MD - 10/16/2024 2:08 PM SOLUTIONS ENGINEER Fabricio Flores MD 10/16/2024 2:08 PM Critical [...] Result * POCT glucose (10/16/2024 1:44 PM SOLUTIONS ENGINEER) Glucose, POC 136 70 - 199 mg/dL Blood 10/16/2024 1:44 PM SOLUTIONS ENGINEER 10/16/2024 1:44 PM SOLUTIONS ENGINEER us Fabricio Flroes MD LAB POCT ORDERABLES - DEVICE Final Result [facility] ([place]) 1 [facility] [place] [address] * ECG 12 lead (10/16/2024 1:37 PM SOLUTIONS ENGINEER) 10/16/2024 1:37 PM SOLUTIONS ENGINEER Narrative [facility] - 10/16/2024 2:12 PM SOLUTIONS ENGINEER Vent Rate: 64 bpm RR Interval: 937 msec DE Interval: 190 msec QRS Duration: 105 msec QT Interval: 408 msec QTC Interval: 417 msec P-R-T Perley: 69 - 62 - 72 degrees IMPRESSION: SINUS RHYTHM LOW QRS VOLTAGE IN PRECORDIAL LEADS [QRS DEFLECTION < 1.0 mV IN CHEST LEADS] BORDERLINE ECG NO CHANGE FROM PREVIOUS TRACING NOTED Electronically Signed By: Jeremy Calix MD us Lesley Cruz MD ECG ORDERABLES Final Resu lt [facility] * (ABNORMAL) eGFR (10/16/2024 12:35 PM SOLUTIONS ENGINEER) eGFR 10(L) >=60 mL/min/1. 73 m2 Comment: [...] reviewed 2021. Blood 10/16/2024 12:3 5 PM SOLUTIONS ENGINEER 10/16/2024 12:36 PM SOLUTIONS ENGINEER us Fabricio Flores MD LAB BLOOD ORDERABLES Final R esult [facility] ([place]) 1 [facility] [place] [address] * (ABNORMAL) Comprehensive metabolic panel (10/16/2024 12:35 PM SOLUTIONS ENGINEER) Sodium 139 135 - 145 mmol/L Potassium, pl 6.1(C) 3.3 - 4.9 mmol/L [facility] ([place]) Comment:Critical Result call ed by [email or web address] at 2024-10-16 13:06:17. Result Read Back by [...] Hemolyzed Specimen Blood 10/16/2024 12:3 5 PM SOLUTIONS ENGINEER 10/16/2024 12:36 PM SOLUTIONS ENGINEER us Farbicio Flores MD LAB BLOOD ORDERABLES Final R esult JOHAN [facility] (FAN) 1 [facility] Department of Laboratories [place] [id number] * ECG 12 lead (10/16/2024 11:59 AM SOLUTIONS ENGINEER) 10/16/2024 11:5 9 AM SOLUTIONS ENGINEER Narrative [facility] - 10/16/2024 12:57 PM SOLUTIONS ENGINEER Vent Rate: 62 bpm RR Interval: 960 msec DE Interval: 191 msec QRS Duration: 99 msec QT Interval: 397 msec QTC Interval: 402 msec P-R-T Perley: 81 - 73 - 77 degrees IMPRESSION: SINUS RHYTHM LOW QRS VOLTAGE IN PRECORDIAL LEADS [QRS DEFLECTION < 1.0 mV IN CHEST LEADS] BORDERLINE ECG NO CHANGE FROM PREVIOUS TRACING NOTED Electronically Signed By: Jeremy Calix MD Fabricio Flores MD ECG ORDERABLES Final Result [facility] * Differential, auto (10/16/2024 11:49 AM SOLUTIONS ENGINEER) Neutrophil abs 6.4 1.5 - 6.5 K/cumm Imm gran abs 0.1 0.0 - 0.1 K/cumm [facility] ([place]) Lymphocyte abs 0.9 0.8 - 3.3 K/cumm [...] revised on 2017. Monocyte pct 5.7 % [facility] ([place]) Comment: Interpretive Data Percent cell [...] revised on 2017. Basophil pct 0.3 % [facility] ([place]) Comment: Interpretive Data Percent cell count reference ranges are not reported, since discordance with absolute values may lead to misinterpretation of CBC data. Current Interpretive Data was last revised on 2017. Blood 10/16/2024 11:4 9 AM SOLUTIONS ENGINEER 10/16/2024 12:01 PM SOLUTIONS ENGINEER us Fabricio Flores MD LAB BLOOD ORDERABLES Final R esult [facility] ([place]) 1 [facility] [place] [address] * (ABNORMAL) CBC with auto differential (10/16/2024 11:49 AM SOLUTIONS ENGINEER) WBC 7.7 3.8 - 9.9 K/cumm Hgb 9.1(L) 11.9 - 15.5 g/dL [facility] ([place]) Hct 32.4(L) 35.6 - 45.5 % [facility] ([place]) Plt 160 150 - 400 K/cumm [facility] ([place]) MPV 11.2 9.1 - 12.3 fL [facility] ([place]) RBC 2.99(L) 3.90 - 5.20 M/cumm [facility] ([place]) MCV 108.4(H) 81.3 - 96.4 fL [facility] ([place]) Comment:MCV delta possibly d ue to low sample volume. MCH 30.4 27.1 - 33.3 pg [facility] ([place]) MCHC 28.1(L) 32.3 - 35.7 g/dL [facility] ([place]) RDW CV 16.3(H) 11.1 - 14.9 % [facility] ([place]) RDW SD 65.8(H) 35.7 - 48.1 fL [facility] ([place]) NRBC abs 0.00 0.00 - 0.01 K/cumm [facility] ([place]) Blood 10/16/2024 11:4 9 AM SOLUTIONS ENGINEER 10/16/2024 12:01 PM SOLUTIONS ENGINEER Fabricio Flores MD LAB BLOOD ORDERABLES Final R esult [facility]COSTA ([place]) 1 [facility] [place] [address] * Hepatitis panel, acute Blood (10/07/2024 11:04 AM SOLUTIONS ENGINEER) Hep A IgM Nonreactive Nonreactive Comment: Interpretive Data: If Hep A IgM Ab is reported as Equivocal, a new sample should be drawn in two weeks for testing. Current interpretive data was last revised on 19. Testing performed by: [facility], [address] [place] [address]., [id number] Hep B core IgM Nonreactive Nonreactive Jose Raul ACOSTA ([place]) Comment: Interpretive Data If HepB Core IgM Ab is reported as Equivocal, a new sample should be drawn in two weeks for testing. Current interpretive data was last revised on 19. Testing performed by: [facility], [address] [place] [address]., [id number] Hep C Ab Nonreactive Nonreactive JOHAN ACOSTA [...] last revised on 2019. Testing performed by: [facility], [address] [place] [address]., [id number] HepBsAg Nonreactive Nonreactive [facility] ([place]) Comment:Testing performed by : [facility], [address] [place] [address]., [id number] Blood 10/07/2024 11:0 4 AM SOLUTIONS ENGINEER 10/07/2024 1:25 PM SOLUTIONS ENGINEER us Miguel Jamison MD LAB MICROBIOLOGY - GENER AL ORDERABLES Final Result [facility]COSTA ([place]) 1 [facility] [place] [address] * Occult blood, fecal non neoplasm screening (08/02/2017 7:41 AM SOLUTIONS ENGINEER) Occult blood, fecal Negative Negative [facility] ([place]) Collection date , feces [id number] [facility] ([place]) Collection time 1, feces 739 [facility] ([place]) Stool 08/02/2017 7:41 AM SOLUTIONS ENGINEER 08/02/2017 7:44 AM SOLUTIONS ENGINEER us Pam Rivas MD LAB BODY FLUIDS AND STOOLS ORDER SARIKA Final Result JOHAN ACOSTA ([place]) 1 [facility] [place] [address] * MAMMOGRAPHY (01/11/2002) Mammogram Normal Historical Provider HEALTH MAINTENANCE Final Result * [facility] COLONOSCOPY (10/14/2001) Colonoscopy Unknown Historical Provider HEALTH MAINTENANCE Final Result from Last 3 Months or Most Recently Relevant to Health Maintenance
--- OUTSIDE RECORDS SUMMARY | 2025-01-13 13:25 | XMS_ITS | Clinical Summary ---
Author Organization [facility] [address] Address [address] [place] [address] Phone Care Team Providers Care Clinical Application Consultant Name Role Phone No, Physician Primary Care Provider [phone] Allergies Active Allergy Reactions Criticality Noted Date [...] 08/04/2022 Assessment & Plan (08/04/2022 10:52 AM CORPORATE VP ADVERTISING & ONLINE): Had normal K on admission. K last 2 days has been 5.1, 5.3. whole blood K of 5.2. Creatinine stable. Suspect due to immobilization vs resolving ROGER. -treat with lokelma x 2 days -will need repeat labs at [facility] in 3-7 days. CKD (chronic kidney disease) stage 3, GFR 30-59 ml/min 07/28/2022 Assessment & Plan (08/04/2022 10:50 AM CORPORATE VP ADVERTISING & ONLINE): Mild ROGER on top of CKD3 - improved, now creat stable at 1.29. (though might be artificially increased due to being on bactrim) - avoid nephrotoxins and renally dose meds Assessment & Plan (08/02/2022 2:25 PM CORPORATE VP ADVERTISING & ONLINE): Mild roger on top of CKD 3 - will continue to monitor with daily BMP - avoid nephrotoxins and renally dose meds - creatinine stable but not back to baseline, Bactrim may be contributing to cr lab elevation - IVF today and reassess Assessment & Plan (08/01/2022 11:07 AM CORPORATE VP ADVERTISING & ONLINE): Mild roger on top of CKD 3 - will continue to monitor with daily BMP - avoid nephrotoxins and renally dose meds - creatinine downtrending Assessment & Plan (07/31/2022 1:52 PM CORPORATE VP ADVERTISING & ONLINE): Mild roger on top of CKD 3 - will continue to monitor with daily BMP - Hold am lasix, add small IVF bolus - avoid nephrotoxins and renally dose meds - creatinine downtrending Assessment & Plan (07/30/2022 1:34 PM CORPORATE VP ADVERTISING & ONLINE): Mild roger on top of CKD 3 - will continue to monitor with daily BMP - slight bump today - Hold am lasix, add small IVF bolus - avoid nephrotoxins and renally dose meds Assessment & Plan (07/28/2022 2:32 PM CORPORATE VP ADVERTISING & ONLINE): Mild roger on top of CKD 3 - will continue to monitor with daily BMP - Hold am lasix - send urinalysis - avoid nephrotoxins and renally dose meds Cellulitis of abdominal wall 07/27/2022 Assessment & Plan (08/04/2022 10:49 AM CORPORATE VP ADVERTISING & ONLINE): Pt presenting with abdominal wall erythema and [...] resolved Assessment & Plan (08/02/2022 2:23 PM CORPORATE VP ADVERTISING & ONLINE): Pt presenting with abdominal wall erythema and [...] improving Assessment & Plan (08/01/2022 10:56 AM CORPORATE VP ADVERTISING & ONLINE): Pt presenting with abdominal wall erythema and [...] improving Assessment & Plan (07/31/2022 1:51 PM CORPORATE VP ADVERTISING & ONLINE): Pt presenting with abdominal wall erythema and [...] positive Assessment & Plan (07/30/2022 1:32 PM CORPORATE VP ADVERTISING & ONLINE): Pt presenting with abdominal wall erythema and [...] contaminant Assessment & Plan (07/29/2022 2:29 PM CORPORATE VP ADVERTISING & ONLINE): Pt presenting with abdominal wall erythema and [...] appropriate Assessment & Plan (07/28/2022 2:24 PM CORPORATE VP ADVERTISING & ONLINE): Pt presenting with abdominal wall erythema and [...] 01/21/2022 Assessment & Plan (08/03/2022 3:28 PM CORPORATE VP ADVERTISING & ONLINE): CT in January 2022 showed 4 cm [...] radiology they have such a scanner at [facility] Assessment & Plan (08/02/2022 2:24 PM CORPORATE VP ADVERTISING & ONLINE): CT in January 2022 showed 4 cm [...] radiology they have such a scanner at [facility] Assessment & Plan (08/01/2022 11:05 AM CORPORATE VP ADVERTISING & ONLINE): CT in January 2022 showed 4 cm [...] not Assessment & Plan (07/31/2022 1:51 PM CORPORATE VP ADVERTISING & ONLINE): CT in January 2022 showed 4 cm indeterminant renal mass, has progressed since previous imaging and was recommended to have MRI outpatient but patient was not scanned. - ordered MRI and attempting to get as inpatient Assessment & Plan (07/30/2022 1:33 PM CORPORATE VP ADVERTISING & ONLINE): CT in January 2022 showed 4 cm indeterminant renal mass, has progressed since previous imaging and was recommended to have MRI outpatient but patient was not scanned. - ordered MRI Assessment & Plan (07/28/2022 2:30 PM CORPORATE VP ADVERTISING & ONLINE): CT in January 2022 showed 4 cm [...] 021 Assessment & Plan (08/04/2022 10:49 AM CORPORATE VP ADVERTISING & ONLINE): Pt with Hx of COPD (former smoker), SHELDON and OHS on 3L O2 chronically and Bipap At baseline - Cont home ICS/LABA (formulary substitute for home symbicort) and duonebs prn, bipap and supplemental O2. Assessment & Plan (08/02/2022 2:23 PM CORPORATE VP ADVERTISING & ONLINE): Pt with Hx of COPD (former smoker), SHELDON and OHS on 3L O2 chronically and Bipap - Cont home ICS/LABA (formulary substitute for home symbicort) and duonebs prn, bipap and supplemental O2. Assessment & Plan (08/01/2022 10:56 AM CORPORATE VP ADVERTISING & ONLINE): Pt with Hx of COPD (former smoker), SHELDON and OHS on 3L O2 chronically and Bipap - Cont home ICS/LABA (formulary substitute for home symbicort) and duonebs prn, bipap and supplemental O2. Assessment & Plan (07/31/2022 1:51 PM CORPORATE VP ADVERTISING & ONLINE): Pt with Hx of COPD (former smoker), SHELDON and OHS on 3L O2 chronically and Bipap - Cont home ICS/LABA (formulary substitute for home symbicort) and duonebs prn, bipap and supplemental O2. Assessment & Plan (07/30/2022 1:32 PM CORPORATE VP ADVERTISING & ONLINE): Pt with Hx of COPD (former smoker), SHELDON and OHS on 3L O2 chronically and Bipap - Cont home ICS/LABA (formulary substitute for home symbicort) and duonebs prn, bipap and supplemental O2. Assessment & Plan (07/29/2022 2:42 PM CORPORATE VP ADVERTISING & ONLINE): Pt with Hx of COPD (former smoker), SHELDON and OHS on 3L O2 chronically and Bipap - Cont home ICS/LABA (formulary substitute for home symbicort) and duonebs prn, bipap and supplemental O2. Assessment & Plan (07/28/2022 2:25 PM CORPORATE VP ADVERTISING & ONLINE): Pt with Hx of COPD (former smoker), [...] 04/02/2021 Assessment & Plan (08/04/2022 10:50 AM CORPORATE VP ADVERTISING & ONLINE): Patient with hx of left knee surgery 2/2 fracture and Right knee osteoarthritis. Also with hx of gout of Right Toe. Right knee exam is benign. - uric acid elevated - knee x-ray with OA - continue tylenol and oxycodone, added lidocaine patch Assessment & Plan (08/02/2022 2:22 PM CORPORATE VP ADVERTISING & ONLINE): Patient with hx of left knee surgery [...] (12/17/2021 1:05 PM CDT): - CPAP nightly. [facility] notes report CPAP at 6mm H2O with 2L O2 bleed in Assessment & Plan (12/16/2021 3:38 PM CDT): - CPAP nightly. [facility] notes report CPAP at 6mm H2O with 2L O2 bleed in Assessment & Plan (12/15/2021 10:05 AM CDT): - CPAP nightly. [facility] notes report CPAP at 6mm H2O with 2L O2 bleed in Assessment & Plan (12/14/2021 11:36 AM CDT): - CPAP nightly. [facility] notes report CPAP at 6mm H2O with 2L O2 bleed in Assessment & Plan (12/13/2021 10:36 AM CDT): - CPAP nightly. [facility] notes report CPAP at 6mm H2O with 2L O2 bleed in Assessment & Plan (12/11/2021 10:45 PM CDT): - CPAP nightly. [facility] notes report CPAP at 6mm H2O with [...] Assessment & Plan (12/12/2021 9:36 AM CDT): Xarelvictoriano, dilt Subclinical hypothyroidism 12/10/2018 Assessment & Plan (08/03/2022 3:28 PM CORPORATE VP ADVERTISING & ONLINE): Continue home synthyroid Assessment & Plan (08/02/2022 2:24 PM CORPORATE VP ADVERTISING & ONLINE): Continue home synthyroid Assessment & Plan (08/01/2022 10:57 AM CORPORATE VP ADVERTISING & ONLINE): Continue home synthyroid Assessment & Plan (07/31/2022 1:51 PM CORPORATE VP ADVERTISING & ONLINE): Continue home synthyroid Assessment & Plan (07/30/2022 1:33 PM CORPORATE VP ADVERTISING & ONLINE): Continue home synthyroid Assessment & Plan (07/27/2022 8:24 PM CORPORATE VP ADVERTISING & ONLINE): Continue home synthyroid Assessment & Plan (01/23/2022 [...] 03/19/2018 Assessment & Plan (08/03/2022 3:26 PM CORPORATE VP ADVERTISING & ONLINE): Continue home xarelto Assessment & Plan (08/02/2022 2:24 PM CORPORATE VP ADVERTISING & ONLINE): Continue home xarelto Assessment & Plan (08/01/2022 10:57 AM CORPORATE VP ADVERTISING & ONLINE): Continue home xarelto Assessment & Plan (07/31/2022 1:51 PM CORPORATE VP ADVERTISING & ONLINE): Continue home xarelto Assessment & Plan (07/30/2022 1:33 PM CORPORATE VP ADVERTISING & ONLINE): Continue home xarelto Assessment & Plan (07/27/2022 8:25 PM CORPORATE VP ADVERTISING & ONLINE): Continue home xarelto Assessment & Plan (01/23/2022 [...] embolus less than 3 months ago no [place] details she has had numerous hospitalizations in [...] (10/27/2017): Added automatically from request for surgery [id number] Restless leg 10/18/2017 Assessment & Plan (08/03/2022 3:28 PM CORPORATE VP ADVERTISING & ONLINE): Continue pramipexole Assessment & Plan (08/02/2022 2:23 PM CORPORATE VP ADVERTISING & ONLINE): Continue pramipexole Assessment & Plan (08/01/2022 10:57 AM CORPORATE VP ADVERTISING & ONLINE): Continue pramipexole Assessment & Plan (07/31/2022 1:51 PM CORPORATE VP ADVERTISING & ONLINE): Continue pramipexole Assessment & Plan (07/30/2022 1:33 PM CORPORATE VP ADVERTISING & ONLINE): Continue pramipexole Assessment & Plan (07/27/2022 8:23 PM CORPORATE VP ADVERTISING & ONLINE): Continue pramipexole Assessment & Plan (12/17/2021 1:04 [...] 10/18/2017 Assessment & Plan (10/18/2017 6:00 PM CORPORATE VP ADVERTISING & ONLINE): Informed patient today that she would need to comply with this office recommendations on management of her multiple chronic conditions, failure to do so, would mean that she would need to find another primary care provider. Chronic pain syndrome 10/18/2017 Assessment & Plan (12/17/2021 1:04 PM CDT): Chronic pain of bilateral legs s/p fracture, shoulder and back. On [place] 7.5-325 q6h prn at home - tylenol 1g q6h prn, oxycodone 10mg q6h prn - home gabapentin 100mg TID - scheduled and prn bowel regimen - started lidoderm patches for most painful area Assessment & Plan (12/16/2021 3:37 PM CDT): chronic pain of bilateral legs s/p fracture, shoulder and back. On [place] 7.5-325 q6h prn at home - tylenol 1g q6h prn, oxycodone 10mg q6h prn - home gabapentin 100mg TID - scheduled and prn bowel regimen - started lidoderm patches for most painful area Assessment & Plan (12/15/2021 10:05 AM CDT): chronic pain of bilateral legs s/p fracture, shoulder and back. On [place] 7.5-325 q6h prn at home - tylenol 1g q6h prn, oxycodone 10mg q6h prn - home gabapentin 100mg TID - scheduled and prn bowel regimen - started lidoderm patches for most painful area Assessment & Plan (12/14/2021 11:36 AM CDT): chronic pain of bilateral legs s/p fracture, shoulder and back. On [place] 7.5-325 q6h prn at home - tylenol 1g q6h prn, oxycodone 10mg q6h prn - home gabapentin 100mg TID - scheduled and prn bowel regimen - started lidoderm patches for most painful area Assessment & Plan (12/13/2021 10:36 AM CDT): chronic pain of bilateral legs s/p fracture, shoulder and back. On [place] 7.5-325 q6h prn at home - tylenol 1g q6h prn, oxycodone 10mg q6h prn - home gabapentin 100mg TID - scheduled and prn bowel regimen - started lidoderm patches for most painful area Assessment & Plan (12/12/2021 9:35 AM CDT): chronic pain of bilateral legs s/p fracture, shoulder and back. On [place] 7.5-325 q6h prn at home - tylenol [...] events Assessment & Plan (10/18/2017 5:57 PM CORPORATE VP ADVERTISING & ONLINE): Referred to pain mgmt for further eval/tx. Wound dehiscence 10/18/2017 Assessment & Plan (10/18/2017 5:58 PM CORPORATE VP ADVERTISING & ONLINE): Referral given 2 months ago to be seen by wound care. Patient did not follow up with them. Seizure disorder 07/20/2017 Assessment & Plan (08/03/2022 3:28 PM CORPORATE VP ADVERTISING & ONLINE): Controlled. Continue home keppra & oxcarbazapine. Assessment & Plan (08/02/2022 2:23 PM CORPORATE VP ADVERTISING & ONLINE): Controlled. Continue home keppra & oxcarbazapine. Assessment & Plan (08/01/2022 10:57 AM CORPORATE VP ADVERTISING & ONLINE): Controlled. Continue home keppra & oxcarbazapine. Assessment & Plan (07/31/2022 1:51 PM CORPORATE VP ADVERTISING & ONLINE): Controlled. Continue home keppra & oxcarbazapine. Assessment & Plan (07/30/2022 1:33 PM CORPORATE VP ADVERTISING & ONLINE): Controlled. Continue home keppra & oxcarbazapine. Assessment & Plan (07/27/2022 8:25 PM CORPORATE VP ADVERTISING & ONLINE): Controlled. Continue home keppra & oxcarbazapine. Assessment [...] time Assessment & Plan (10/18/2017 5:56 PM CORPORATE VP ADVERTISING & ONLINE): Self-reported, patient was referred to neurology 2 months ago immediately after she reported a seizure. Patient did not mellisa appt with neurology, patient encouraged to comply. Personality disorder 07/20/2017 Assessment & Plan (03/19/2018 2:33 PM CDT): Psychiatric referral made Assessment & Plan (10/18/2017 5:53 PM CORPORATE VP ADVERTISING & ONLINE): Encouraged patient to f/u through with Psychiatry referral. Bipolar 1 disorder, depressed, mild 07/20/2017 Assessment & Plan (08/03/2022 3:17 PM CORPORATE VP ADVERTISING & ONLINE): Symptoms controlled, cont home regimen of sertraline, Seroquel Assessment & Plan (08/02/2022 2:23 PM CORPORATE VP ADVERTISING & ONLINE): Symptoms controlled, cont home regimen of sertraline, Seroquel Assessment & Plan (08/01/2022 10:56 AM CORPORATE VP ADVERTISING & ONLINE): Symptoms controlled, cont home regimen of sertraline, Seroquel Assessment & Plan (07/31/2022 1:51 PM CORPORATE VP ADVERTISING & ONLINE): Symptoms controlled, cont home regimen of sertraline, Seroquel Assessment & Plan (07/30/2022 1:33 PM CORPORATE VP ADVERTISING & ONLINE): Symptoms controlled, cont home regimen of sertraline, Seroquel Assessment & Plan (07/29/2022 2:42 PM CORPORATE VP ADVERTISING & ONLINE): Symptoms controlled, cont home regimen of sertraline, Seroquel Assessment & Plan (07/27/2022 8:23 PM CORPORATE VP ADVERTISING & ONLINE): Symptoms controlled, cont home regimen of sertraline, [...] hallucinations. Assessment & Plan (10/18/2017 5:53 PM CORPORATE VP ADVERTISING & ONLINE): Rx refills given. Encouraged patient to f/u [...] therapy Assessment & Plan (10/18/2017 5:51 PM CORPORATE VP ADVERTISING & ONLINE): Hypertension is improving with treatment. Continue current treatment regimen. Dietary sodium restriction. Weight loss. Continue current medications. Blood pressure will be reassessed at the next regular appointment. Insomnia 07/20/2017 Assessment & Plan (10/18/2017 5:52 PM CORPORATE VP ADVERTISING & ONLINE): Will not fill both trazodone AND ambien, [...] 07/20/2017 Assessment & Plan (10/18/2017 5:56 PM CORPORATE VP ADVERTISING & ONLINE): Encouraged patient to follow through with nephrology referral she was given 2 months ago. Referral re-printed. Class 3 severe obesity with body mass index (BMI) greater than or equal to 70 in adult 07/20/2017 Assessment & Plan (08/03/2022 3:26 PM CORPORATE VP ADVERTISING & ONLINE): Pt with severe obesity, complicated by SHELDON/OHS. Leg fractures in 2020 managed nonoperatively, pt has been bed bound and living in SNF since that time. Assessment & Plan (08/02/2022 2:23 PM CORPORATE VP ADVERTISING & ONLINE): Pt with severe obesity, complicated by SHELDON/OHS. Leg fractures in 2020 managed nonoperatively, pt has been bed bound and living in SNF since that time. Assessment & Plan (08/01/2022 10:56 AM CORPORATE VP ADVERTISING & ONLINE): Pt with severe obesity, complicated by SHELDON/OHS. Leg fractures in 2020 managed nonoperatively, pt has been bed bound and living in SNF since that time. Assessment & Plan (07/31/2022 1:51 PM CORPORATE VP ADVERTISING & ONLINE): Pt with severe obesity, complicated by SHELDON/OHS. Leg fractures in 2020 managed nonoperatively, pt has been bed bound and living in SNF since that time. Assessment & Plan (07/30/2022 1:33 PM CORPORATE VP ADVERTISING & ONLINE): Pt with severe obesity, complicated by SHELDON/OHS. Leg fractures in 2020 managed nonoperatively, pt has been bed bound and living in SNF since that time. Assessment & Plan (07/27/2022 8:25 PM CORPORATE VP ADVERTISING & ONLINE): Pt with severe obesity, complicated by SHELDON/OHS. [...] she informs me that Dr. Panda in [facility] is willing to move this pannus patient referred to this particular physician to address this problem soon as possible. 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 Assessment & Plan (10/18/2017 5:56 PM CORPORATE VP ADVERTISING & ONLINE): Obesity is unchanged. Discussed the patient's BMI. [...] supratherapeutic level overnight. Plan to return to correction tomorrow. Assessment & Plan (12/13/2021 10:35 AM [...] one more day then likely return to [place] tomorrow with better wound care Acute kidney [...] ensure stability prior to return to her correction. Encounters Date Type Department Care Team Description 01/12/2025 Telephone [facility] Advanced Medicine ([facility]) - [facility] Urology [address] [facility] Advanced Medicine [address]th [place] [address] [place] [address] Larissa Lopez MD 12/11/2024 Telephone Radiology [address] [place] [address] Alia Simon RT 12/08/2024 2:00 PM CDT Office Visit [facility]) - [facility] Urology [address] Medical Office Building [address] [place] [id number] Larissa Lopez MD Left renal mass 11/08/2024 4:34 AM CORPORATE VP ADVERTISING & ONLINE - 11/08/2024 11:59 PM CORPORATE VP ADVERTISING & ONLINE Hospital Encounter [facility] Emergency, Room R Discharge Disposition: Discharge to home or self care 11/07/2024 11:23 PM CORPORATE VP ADVERTISING & ONLINE - 11/08/2024 4:35 AM CORPORATE VP ADVERTISING & ONLINE Emergency [facility] Emergency Department [address] [place] [address] Safia Cervantes MD Oxygen dependent (Primary Dx) Discharge Disposition: Discharge to home or self care 11/07/2024 5:46 PM CORPORATE VP ADVERTISING & ONLINE - 11/07/2024 11:59 PM CORPORATE VP ADVERTISING & ONLINE Hospital Encounter [facility] Emergency, Room R Discharge Disposition: Discharge to home or self care 11/02/2024 1:16 PM CORPORATE VP ADVERTISING & ONLINE - 11/07/2024 5:49 PM CORPORATE VP ADVERTISING & ONLINE Hospital Encounter [facility] IMU [address] [place] [address] Norm Resendiz MD Lo Bianco, Salvador, MD Masetti, Paolo, MD Nikolic, Jelena, MD Davis, MD Chalres Yap II, Narine, MD Acute respiratory failure with hypercapnia (HCC) (Primary Dx); Acute cystitis with hematuria; Influenza A; Acute respiratory failure with hypoxia and hypercarbia (HCC); Delirium; Acute on chronic respiratory failure with hypoxia and hypercapnia (HCC) Discharge Disposition: Discharge to care home facility 11/01/2024 Documentation Internal Medicine Lesley Cruz MD 10/27/2024 4:35 PM CORPORATE VP ADVERTISING & ONLINE - 10/27/2024 11:59 PM CORPORATE VP ADVERTISING & ONLINE Hospital Encounter [facility] Emergency, Room R Discharge Disposition: Discharge to home or self care 10/22/2024 10:39 AM CORPORATE VP ADVERTISING & ONLINE - 10/27/2024 4:30 PM CORPORATE VP ADVERTISING & ONLINE Hospital Encounter [facility] [address] [place] [address] Vincenzo Montgomery MD Lo Bianco, Salvador, MD Richards, Luis Manuel Gill Jr., Emilia River MD Acute respiratory failure with hypoxia and hypercarbia (HCC) (Primary Dx); Delirium; Influenza A Discharge Disposition: Discharge to care home facility 10/19/2024 2:17 PM CORPORATE VP ADVERTISING & ONLINE - 10/19/2024 11:59 PM CORPORATE VP ADVERTISING & ONLINE Hospital Encounter [facility] Emergency, Room R Discharge Disposition: Discharge to home or self care 10/16/2024 11:01 AM CORPORATE VP ADVERTISING & ONLINE - 10/19/2024 12:51 PM CORPORATE VP ADVERTISING & ONLINE Hospital Encounter [facility] [address] [place] [address] Fabricio Flores MD Kheirkhahan, Nazanin, MD Nikolic, Jelena, MD Hyperkalemia (Primary Dx) Discharge Disposition: Discharge to SNF from Last 3 Months Immunizations Immunization Administration Dates Next Due Influenza, Quadrivalent, Spl it, Preservative Free, Intramuscular 08/20/2021,07/03/2021,08/10/2019,12/10,07/20/2017 Influenza, Trivalent, IM (MDV) 07/19/2017 Influenza, Unspecified 07/19/2017 PPD TEST 12/19/2021,01/14/2021 Pneumococcal Polysaccharide PPV23 08/15/2019,05/2017 Tdap 04/30/2021,04/20/2021 Surgical History Surgery Date Site/Laterality Comments HYSTERECTOMY 09/13/1999 - 09/12/2000 left surgical stump REIMPLANT URETER IN BLADDER 09/13/2001 - 09/12/2002 Left URETEROSCOPY 08/07/2017 Right stent placed APPENDECTOMY SKIN BIOPSY Medical History Medical History Date Comments Arthritis 2016 Depression 1998 Gout 2016 Hypertension 2000 Chronic kidney disease 2006 Seizures ([facility]) 2016 Fibromyalgia 2002 Osteoarthritis uses motorized w heelchair and walker Diabetes mellitus ([facility]) Sleep apnea Seasonal allergies 1970 Bipolar 1 disorder ([facility]) History of pulmonary embolism Subclinical hypothyroidism 12/10/2018 CHF (congestive heart failure) (HCC) COPD (chronic obstructive pu lmonary disease) ([facility]) Family History Medical History Relation Name Comments Cancer Maternal Grandmother Diabetes Maternal Grandmother Heart attack Maternal Grandmother Hypertension Maternal Grandmother Heart attack Mother Hypertension Mother Relation Name Status Comments Maternal Grandmother Mother Social History Tobacco Use Types Packs/Day Years Used Date Smoking Tobacco: Former Cigarettes Smokeless Tobacco: Never Tobacco Cessation:Counseling Given: Not Answered Alcohol Use Standard Drinks/Week Comments Yes 0 (1 standard drink = 0.6 oz pur e alcohol) Occasional [employer] Utilities Answer Date Recorded In the past 12 months has [employer], gas, oil, or water [employer] threatened to shut off services in your [...] 11/03/2024 How often do you attend chur or denominational services? Never 11/03/2024 Do you belong to any clubs o r organizations such as sabianism groups, unions, fraternal or athletic groups, or [...] any time in the past 12 m [facility], were you homeless or living in [...] file Not on file Not on file Obstetrics History Last Filed Vital Signs Vital Sign Reading Time Taken Comments Blood Pressure 127/62 11/08/2024 4:00 AM CORPORATE VP ADVERTISING & ONLINE Pulse 73 11/08/2024 4:00 AM CORPORATE VP ADVERTISING & ONLINE Temperature 36.4 C (97.5 F) 11/07/2024 11:43 PM CORPORATE VP ADVERTISING & ONLINE Respiratory Rate 18 11/07/2024 11:4 3 PM CORPORATE VP ADVERTISING & ONLINE Oxygen Saturation 94% 11/08/2024 4:00 AM CORPORATE VP ADVERTISING & ONLINE Inhaled Oxygen Concentration - - Weight 165.6 kg (365 lb 1.3 oz) 11/07/2024 6:18 AM CORPORATE VP ADVERTISING & ONLINE Height 170.2 cm (5' 7 ) 11/02/2024 8:00 PM CORPORATE VP ADVERTISING & ONLINE Body Mass Index 57.18 11/02/2024 8:00 PM CORPORATE VP ADVERTISING & ONLINE Plan of Treatment Health Maintenance Due Date Last Done Comments Osteoporosis Screening-Bone Density Scan 1958 Breast Cancer Screening-Mammogram 01/11/2003 002 Zoster Vaccine (1 of 2) 2008 Colon Cancer Screening-Colonoscopy 10/14/2011 10/14/2001 Pneumococcal vaccine 65+ (2 of 2 - PCV) 08/15/2020 08/15/2019, 12/20/2016 Well Visit 65+ 2023 Depression Screening 07/27/2023 07/27/2022, 07/27/2022, 01/21/2022, Additional history exists Covid-19 Vaccine (3 - 2023-2 5 season) 2024 12/25/2021, 03/21/2021 Influenza Vaccine (Season Ended) 2025 08/20/2021, 07/03/2021, 08/10/2019, Additional history exists Fall Risk Assessment 11/07/2025 11/07/2024 DTaP/Tdap/Td Vaccine (3 - Td or Tdap) 04/30/2031 04/30/2021, 04/20/2021 Colon Cancer Screening-CT Colonography Discontinued 10/14/2001 Colon Cancer Screening-DNA Stool Discontinued 02/01/20 02 Colon Cancer Screening-Sigmoidoscopy Discontinued 10/14/2001 Colon Cancer Screening-FIT Discontinued 08/02/2017, Hepatitis C Screening Completed 10/07/2024 , 09/09/2024, 07/26/2024 Hepatitis B Screening Completed 11/04/2024 Procedures Procedure Name Priority Date/Time Associated Diagnosis Comments POCT GLUCOSE DEVICE Routine 11/07/2024 4 :07 PM CORPORATE VP ADVERTISING & ONLINE POCT GLUCOSE DEVICE Routine 11/07/2024 1 2:17 PM CORPORATE VP ADVERTISING & ONLINE POCT GLUCOSE DEVICE Routine 11/07/2024 9 :25 AM CORPORATE VP ADVERTISING & ONLINE POCT GLUCOSE DEVICE Routine 11/07/2024 7 :43 AM CORPORATE VP ADVERTISING & ONLINE POCT GLUCOSE DEVICE Routine 11/07/2024 3 :26 AM CORPORATE VP ADVERTISING & ONLINE EGFR Routine 11/07/2024 2:34 AM CORPORATE VP ADVERTISING & ONLINE COMPREHENSIVE METABOLIC PANEL Routine 11/07/2024 2:34 AM CORPORATE VP ADVERTISING & ONLINE HEMODIALYSIS Routine 11/07/2024 12:30 AM CORPORATE VP ADVERTISING & ONLINE POCT GLUCOSE DEVICE Routine 11/06/2024 1 1:15 PM CORPORATE VP ADVERTISING & ONLINE POCT GLUCOSE DEVICE Routine 11/06/2024 8 :00 PM CORPORATE VP ADVERTISING & ONLINE POCT GLUCOSE DEVICE Routine 11/06/2024 6 :20 PM CORPORATE VP ADVERTISING & ONLINE POCT GLUCOSE DEVICE Routine 11/06/2024 5 :18 PM CORPORATE VP ADVERTISING & ONLINE POCT GLUCOSE DEVICE Routine 11/06/2024 1 2:16 PM CORPORATE VP ADVERTISING & ONLINE EGFR Routine 11/06/2024 7:34 AM CORPORATE VP ADVERTISING & ONLINE DIFFERENTIAL AUTO Routine 11/06/2024 7:3 4 AM CORPORATE VP ADVERTISING & ONLINE CBC WITH AUTO DIFFERENTIAL Routine 11/06/2024 7:34 AM CORPORATE VP ADVERTISING & ONLINE COMPREHENSIVE METABOLIC PANEL Routine 11/06/2024 7:34 AM CORPORATE VP ADVERTISING & ONLINE POCT GLUCOSE DEVICE Routine 11/06/2024 7 :23 AM CORPORATE VP ADVERTISING & ONLINE POCT GLUCOSE DEVICE Routine 11/06/2024 4 :16 AM CORPORATE VP ADVERTISING & ONLINE POCT GLUCOSE DEVICE Routine 11/05/2024 1 1:46 PM CORPORATE VP ADVERTISING & ONLINE POCT GLUCOSE DEVICE Routine 11/05/2024 8 :19 PM CORPORATE VP ADVERTISING & ONLINE POCT GLUCOSE DEVICE Routine 11/05/2024 5 :21 PM CORPORATE VP ADVERTISING & ONLINE POCT GLUCOSE DEVICE Routine 11/05/2024 1 1:41 AM CORPORATE VP ADVERTISING & ONLINE POCT GLUCOSE DEVICE Routine 11/05/2024 7 :41 AM CORPORATE VP ADVERTISING & ONLINE EGFR Routine 11/05/2024 7:24 AM CORPORATE VP ADVERTISING & ONLINE DIFFERENTIAL AUTO Routine 11/05/2024 7:2 4 AM CORPORATE VP ADVERTISING & ONLINE LIPID PANEL Routine 11/05/2024 7:24 AM CORPORATE VP ADVERTISING & ONLINE CBC WITH AUTO DIFFERENTIAL Routine 11/05/2024 7:24 AM CORPORATE VP ADVERTISING & ONLINE COMPREHENSIVE METABOLIC PANEL Routine 11/05/2024 7:24 AM CORPORATE VP ADVERTISING & ONLINE POCT GLUCOSE DEVICE Routine 11/05/2024 3 :44 AM CORPORATE VP ADVERTISING & ONLINE POCT GLUCOSE DEVICE Routine 11/04/2024 1 1:55 PM CORPORATE VP ADVERTISING & ONLINE POCT GLUCOSE DEVICE Routine 11/04/2024 7 :59 PM CORPORATE VP ADVERTISING & ONLINE POCT GLUCOSE DEVICE Routine 11/04/2024 4 :10 PM CORPORATE VP ADVERTISING & ONLINE POCT GLUCOSE DEVICE Routine 11/04/2024 1 :01 PM CORPORATE VP ADVERTISING & ONLINE EGFR Routine 11/04/2024 8:30 AM CORPORATE VP ADVERTISING & ONLINE COMPREHENSIVE METABOLIC PANEL Routine 11/04/2024 8:30 AM CORPORATE VP ADVERTISING & ONLINE HEPATITIS B SURFACE ANTIGEN Routine 11/04/2024 8:30 AM CORPORATE VP ADVERTISING & ONLINE HEPATITIS B SURFACE ANTIBODY (IMMUNE STATUS) Routine 11/04/2024 8:30 AM CORPORATE VP ADVERTISING & ONLINE POCT GLUCOSE DEVICE Routine 11/04/2024 7 :26 AM CORPORATE VP ADVERTISING & ONLINE POCT GLUCOSE DEVICE Routine 11/04/2024 4 :35 AM CORPORATE VP ADVERTISING & ONLINE POCT GLUCOSE DEVICE Routine 11/04/2024 2 :01 AM CORPORATE VP ADVERTISING & ONLINE HEMODIALYSIS Routine 11/04/2024 12:31 AM CORPORATE VP ADVERTISING & ONLINE POCT GLUCOSE DEVICE Routine 11/03/2024 8 :36 PM CORPORATE VP ADVERTISING & ONLINE POCT GLUCOSE DEVICE Routine 11/03/2024 4 :18 PM CORPORATE VP ADVERTISING & ONLINE POCT GLUCOSE DEVICE Routine 11/03/2024 1 2:54 PM CORPORATE VP ADVERTISING & ONLINE POCT GLUCOSE DEVICE Routine 11/03/2024 8 :00 AM CORPORATE VP ADVERTISING & ONLINE BLOOD CULTURE STAT 11/03/2024 4:51 AM CORPORATE VP ADVERTISING & ONLINE POCT GLUCOSE DEVICE Routine 11/03/2024 4 :13 AM CORPORATE VP ADVERTISING & ONLINE POCT GLUCOSE DEVICE Routine 11/03/2024 1 2:40 AM CORPORATE VP ADVERTISING & ONLINE OR CRITICAL CARE ILL/INJURED PATIENT INIT 30-74 MIN Routine 11/02/2024 10:16 PM CORPORATE VP ADVERTISING & ONLINE CRITICAL CARE Routine 11/02/2024 9:53 PM CORPORATE VP ADVERTISING & ONLINE Influenza A Delirium Acute on chronic respiratory failure with hypoxia and hypercapnia (HCC) INFLUENZA A/B, RSV, AND COVID-19 PCR Routine 11/02/2024 9:50 PM CORPORATE VP ADVERTISING & ONLINE POCT GLUCOSE DEVICE Routine 11/02/2024 9 :29 PM CORPORATE VP ADVERTISING & ONLINE BLOOD GAS, VENOUS Routine 11/02/2024 8:5 8 PM CORPORATE VP ADVERTISING & ONLINE TROPONIN T HIGH-SENSITIVITY 6-HOUR Timed 11/02/2024 8:58 PM CORPORATE VP ADVERTISING & ONLINE BLOOD CULTURE STAT 11/02/2024 8:58 PM CORPORATE VP ADVERTISING & ONLINE POCT GLUCOSE DEVICE Routine 11/02/2024 6 :40 PM CORPORATE VP ADVERTISING & ONLINE URINALYSIS, MICROSCOPIC ONLY STAT 11/02/2024 2:26 PM CORPORATE VP ADVERTISING & ONLINE URINE CULTURE STAT 11/02/2024 2:26 PM CORPORATE VP ADVERTISING & ONLINE URINALYSIS AND REFLEX TO MICROSCOPIC AND CULTURE STAT 11/02/2024 2:26 PM CORPORATE VP ADVERTISING & ONLINE XR CHEST 1 VIEW ED 11/02/2024 1:57 PM CORPORATE VP ADVERTISING & ONLINE EGFR STAT 11/02/2024 1:54 PM CORPORATE VP ADVERTISING & ONLINE DIFFERENTIAL AUTO STAT 11/02/2024 1:5 4 PM CORPORATE VP ADVERTISING & ONLINE SEPSIS LACTATE WITH REFLEX STAT 11/02/2024 1:54 PM CORPORATE VP ADVERTISING & ONLINE TROPONIN T HIGH-SENSITIVITY SERIES (BASELINE, 2HR, 4HR, 6HR) Routine 11/02/2024 1:54 PM CORPORATE VP ADVERTISING & ONLINE PROTIME-INR STAT 11/02/2024 1:54 PM CORPORATE VP ADVERTISING & ONLINE PRO B-TYPE NATRIURETIC PEPTIDE STAT 11/02/2024 1:54 PM CORPORATE VP ADVERTISING & ONLINE MAGNESIUM Routine 11/02/2024 1:54 PM CORPORATE VP ADVERTISING & ONLINE COMPREHENSIVE METABOLIC PANEL STAT 11/02/2024 1:54 PM CORPORATE VP ADVERTISING & ONLINE CBC WITH AUTO DIFFERENTIAL STAT 11/02/2024 1:54 PM CORPORATE VP ADVERTISING & ONLINE APTT STAT 11/02/2024 1:54 PM CORPORATE VP ADVERTISING & ONLINE LEVETIRACETAM LEVEL Timed 11/02/2024 1 :54 PM CORPORATE VP ADVERTISING & ONLINE AMMONIA STAT 11/02/2024 1:54 PM CORPORATE VP ADVERTISING & ONLINE BLOOD GAS, VENOUS STAT 11/02/2024 1:5 4 PM CORPORATE VP ADVERTISING & ONLINE ECG 12-LEAD Routine 11/02/2024 1:44 PM CORPORATE VP ADVERTISING & ONLINE POCT GLUCOSE DEVICE Routine 11/02/2024 1 :20 PM CORPORATE VP ADVERTISING & ONLINE POCT GLUCOSE DEVICE Routine 10/27/2024 1 1:58 AM CORPORATE VP ADVERTISING & ONLINE POCT GLUCOSE DEVICE Routine 10/27/2024 8 :11 AM CORPORATE VP ADVERTISING & ONLINE EGFR Routine 10/27/2024 3:25 AM CORPORATE VP ADVERTISING & ONLINE BASIC METABOLIC PANEL Routine 10/27/2024 3:25 AM CORPORATE VP ADVERTISING & ONLINE CBC WITHOUT DIFFERENTIAL Routine 10/27/2024 3:25 AM CORPORATE VP ADVERTISING & ONLINE POCT GLUCOSE DEVICE Routine 10/27/2024 3 :24 AM CORPORATE VP ADVERTISING & ONLINE HEMODIALYSIS Routine 10/27/2024 12:30 AM CORPORATE VP ADVERTISING & ONLINE POCT GLUCOSE DEVICE Routine 10/26/2024 9 :24 PM CORPORATE VP ADVERTISING & ONLINE POCT GLUCOSE DEVICE Routine 10/26/2024 5 :07 PM CORPORATE VP ADVERTISING & ONLINE POCT GLUCOSE DEVICE Routine 10/26/2024 1 1:45 AM CORPORATE VP ADVERTISING & ONLINE HEMOGLOBIN AND HEMATOCRIT STAT 10/26/2024 8:47 AM CORPORATE VP ADVERTISING & ONLINE POCT GLUCOSE DEVICE Routine 10/26/2024 7 :59 AM CORPORATE VP ADVERTISING & ONLINE TRANSFUSE RED BLOOD CELLS Timed 10/26/2024 5:10 AM CORPORATE VP ADVERTISING & ONLINE PREPARE RBC Routine 10/26/2024 5:06 AM CORPORATE VP ADVERTISING & ONLINE PREPARE RBC Timed 10/26/2024 5:06 AM CORPORATE VP ADVERTISING & ONLINE EGFR Routine 10/26/2024 2:46 AM CORPORATE VP ADVERTISING & ONLINE BASIC METABOLIC PANEL Routine 10/26/2024 2:46 AM CORPORATE VP ADVERTISING & ONLINE CBC WITHOUT DIFFERENTIAL Routine 10/26/2024 2:46 AM CORPORATE VP ADVERTISING & ONLINE POCT GLUCOSE DEVICE Routine 10/26/2024 2 :07 AM CORPORATE VP ADVERTISING & ONLINE POCT GLUCOSE DEVICE Routine 10/25/2024 8 :30 PM CORPORATE VP ADVERTISING & ONLINE POCT GLUCOSE DEVICE Routine 10/25/2024 5 :13 PM CORPORATE VP ADVERTISING & ONLINE POCT GLUCOSE DEVICE Routine 10/25/2024 1 2:08 PM CORPORATE VP ADVERTISING & ONLINE HEMOGLOBIN AND HEMATOCRIT STAT 10/25/2024 9:11 AM CORPORATE VP ADVERTISING & ONLINE CROSSMATCH STAT 10/25/2024 6:35 AM CORPORATE VP ADVERTISING & ONLINE ANTIBODY SCREEN STAT 10/25/2024 6:35 AM CORPORATE VP ADVERTISING & ONLINE ABO/RH STAT 10/25/2024 6:35 AM CORPORATE VP ADVERTISING & ONLINE TYPE AND SCREEN STAT 10/25/2024 6:35 AM CORPORATE VP ADVERTISING & ONLINE PROCALCITONIN Add-On 10/25/2024 3:16 AM CORPORATE VP ADVERTISING & ONLINE EGFR Routine 10/25/2024 3:16 AM CORPORATE VP ADVERTISING & ONLINE VANCOMYCIN LEVEL RANDOM Routine 10/25/2024 3:16 AM CORPORATE VP ADVERTISING & ONLINE BASIC METABOLIC PANEL Routine 10/25/2024 3:16 AM CORPORATE VP ADVERTISING & ONLINE CBC WITHOUT DIFFERENTIAL Routine 10/25/2024 3:16 AM CORPORATE VP ADVERTISING & ONLINE POCT GLUCOSE DEVICE Routine 10/25/2024 2 :18 AM CORPORATE VP ADVERTISING & ONLINE HEMODIALYSIS Routine 10/25/2024 12:30 AM CORPORATE VP ADVERTISING & ONLINE POCT GLUCOSE DEVICE Routine 10/24/2024 1 1:42 PM CORPORATE VP ADVERTISING & ONLINE POCT GLUCOSE DEVICE Routine 10/24/2024 8 :31 PM CORPORATE VP ADVERTISING & ONLINE POCT GLUCOSE DEVICE Routine 10/24/2024 8 :30 PM CORPORATE VP ADVERTISING & ONLINE POCT GLUCOSE DEVICE Routine 10/24/2024 4 :55 PM CORPORATE VP ADVERTISING & ONLINE CT HEAD WO CONTRAST IP Routine 10/24/2024 3:12 PM CORPORATE VP ADVERTISING & ONLINE POCT GLUCOSE DEVICE Routine 10/24/2024 1 1:48 AM CORPORATE VP ADVERTISING & ONLINE FOLATE Add-On 10/24/2024 8:10 AM CORPORATE VP ADVERTISING & ONLINE VITAMIN B12 Add-On 10/24/2024 8:10 AM CORPORATE VP ADVERTISING & ONLINE FERRITIN Add-On 10/24/2024 8:10 AM CORPORATE VP ADVERTISING & ONLINE IRON PROFILE W/ IBC Add-On 10/24/2024 8 :10 AM CORPORATE VP ADVERTISING & ONLINE POCT GLUCOSE DEVICE Routine 10/24/2024 7 :53 AM CORPORATE VP ADVERTISING & ONLINE HEMOGLOBIN A1C Add-On 10/24/2024 3:36 AM CORPORATE VP ADVERTISING & ONLINE EGFR Routine 10/24/2024 3:36 AM CORPORATE VP ADVERTISING & ONLINE BASIC METABOLIC PANEL Routine 10/24/2024 3:36 AM CORPORATE VP ADVERTISING & ONLINE CBC WITHOUT DIFFERENTIAL Routine 10/24/2024 3:36 AM CORPORATE VP ADVERTISING & ONLINE BLOOD CULTURE Routine 10/24/2024 3:36 AM CORPORATE VP ADVERTISING & ONLINE POCT GLUCOSE DEVICE Routine 10/24/2024 3 :11 AM CORPORATE VP ADVERTISING & ONLINE POCT GLUCOSE DEVICE Routine 10/23/2024 9 :27 PM CORPORATE VP ADVERTISING & ONLINE BLOOD CULTURE Routine 10/23/2024 4:51 PM CORPORATE VP ADVERTISING & ONLINE POCT GLUCOSE DEVICE Routine 10/23/2024 4 :02 PM CORPORATE VP ADVERTISING & ONLINE POCT GLUCOSE DEVICE Routine 10/23/2024 1 2:10 PM CORPORATE VP ADVERTISING & ONLINE BLOOD GAS, ARTERIAL STAT 10/23/2024 9 :06 AM CORPORATE VP ADVERTISING & ONLINE POCT GLUCOSE DEVICE Routine 10/23/2024 8 :09 AM CORPORATE VP ADVERTISING & ONLINE HEMODIALYSIS Routine 10/23/2024 6:14 AM CORPORATE VP ADVERTISING & ONLINE BLOOD CULTURE Routine 10/23/2024 5:56 AM CORPORATE VP ADVERTISING & ONLINE EGFR Routine 10/23/2024 5:38 AM CORPORATE VP ADVERTISING & ONLINE PHOSPHORUS Routine 10/23/2024 5:38 AM CORPORATE VP ADVERTISING & ONLINE BASIC METABOLIC PANEL Routine 10/23/2024 5:38 AM CORPORATE VP ADVERTISING & ONLINE CBC WITHOUT DIFFERENTIAL Routine 10/23/2024 5:38 AM CORPORATE VP ADVERTISING & ONLINE MAGNESIUM Routine 10/23/2024 5:38 AM CORPORATE VP ADVERTISING & ONLINE BLOOD CULTURE Routine 10/23/2024 5:38 AM CORPORATE VP ADVERTISING & ONLINE POCT GLUCOSE DEVICE Routine 10/23/2024 5 :12 AM CORPORATE VP ADVERTISING & ONLINE POCT GLUCOSE DEVICE Routine 10/23/2024 1 2:06 AM CORPORATE VP ADVERTISING & ONLINE ECG 12-LEAD STAT 10/22/2024 8:24 PM CORPORATE VP ADVERTISING & ONLINE POCT GLUCOSE DEVICE Routine 10/22/2024 7 :18 PM CORPORATE VP ADVERTISING & ONLINE POCT GLUCOSE DEVICE Routine 10/22/2024 6 :36 PM CORPORATE VP ADVERTISING & ONLINE MRSA ONLY (STAPHYLOCOCCUS AUREUS) PCR Routine 10/22/2024 5:32 PM CORPORATE VP ADVERTISING & ONLINE TROPONIN T HIGH-SENSITIVITY 6-HOUR Timed 10/22/2024 5:04 PM CORPORATE VP ADVERTISING & ONLINE TROPONIN T HIGH-SENSITIVITY 4-HR Timed 10/22/2024 4:22 PM CORPORATE VP ADVERTISING & ONLINE POCT GLUCOSE DEVICE Routine 10/22/2024 4 :20 PM CORPORATE VP ADVERTISING & ONLINE OR CRITICAL CARE ILL/INJURED PATIENT INIT 30-74 MIN Routine 10/22/2024 3:53 PM CORPORATE VP ADVERTISING & ONLINE AMMONIA STAT 10/22/2024 2:17 PM CORPORATE VP ADVERTISING & ONLINE POCT GLUCOSE DEVICE Routine 10/22/2024 2 :01 PM CORPORATE VP ADVERTISING & ONLINE TROPONIN T HIGH-SENSITIVITY 2-HOUR Timed 10/22/2024 1:58 PM CORPORATE VP ADVERTISING & ONLINE BLOOD GAS, ARTERIAL STAT 10/22/2024 1 :49 PM CORPORATE VP ADVERTISING & ONLINE ANTIBODY SCREEN STAT 10/22/2024 12:32 PM CORPORATE VP ADVERTISING & ONLINE ABO/RH STAT 10/22/2024 12:32 PM CORPORATE VP ADVERTISING & ONLINE TYPE AND SCREEN STAT 10/22/2024 12:32 PM CORPORATE VP ADVERTISING & ONLINE SEPSIS LACTATE WITH REFLEX Routine 10/22/2024 12:32 PM CORPORATE VP ADVERTISING & ONLINE BLOOD CULTURE STAT 10/22/2024 11:24 AM CORPORATE VP ADVERTISING & ONLINE EGFR STAT 10/22/2024 11:20 AM CORPORATE VP ADVERTISING & ONLINE CRP (ACUTE PHASE) STAT 10/22/2024 11: 20 AM CORPORATE VP ADVERTISING & ONLINE PRO B-TYPE NATRIURETIC PEPTIDE STAT 10/22/2024 11:20 AM CORPORATE VP ADVERTISING & ONLINE TROPONIN T HIGH-SENSITIVITY SERIES (BASELINE, 2HR, 4HR, 6HR) STAT 10/22/2024 11:20 AM CORPORATE VP ADVERTISING & ONLINE COMPREHENSIVE METABOLIC PANEL STAT 10/22/2024 11:20 AM CORPORATE VP ADVERTISING & ONLINE BLOOD CULTURE STAT 10/22/2024 11:20 AM CORPORATE VP ADVERTISING & ONLINE ECG 12-LEAD Routine 10/22/2024 11:16 AM CORPORATE VP ADVERTISING & ONLINE XR CHEST 1 VIEW ED 10/22/2024 11:08 AM CORPORATE VP ADVERTISING & ONLINE DIFFERENTIAL AUTO STAT 10/22/2024 11: 03 AM CORPORATE VP ADVERTISING & ONLINE CBC WITH AUTO DIFFERENTIAL STAT 10/22/2024 11:03 AM CORPORATE VP ADVERTISING & ONLINE INFLUENZA A/B, RSV, AND COVID-19 PCR STAT 10/22/2024 11:03 AM CORPORATE VP ADVERTISING & ONLINE SEPSIS LACTATE WITH REFLEX Routine 10/22/2024 10:55 AM CORPORATE VP ADVERTISING & ONLINE BLOOD GAS, ARTERIAL STAT 10/22/2024 1 0:54 AM CORPORATE VP ADVERTISING & ONLINE POCT GLUCOSE DEVICE Routine 10/19/2024 1 2:19 PM CORPORATE VP ADVERTISING & ONLINE POCT GLUCOSE DEVICE Routine 10/19/2024 8 :24 AM CORPORATE VP ADVERTISING & ONLINE EGFR Routine 10/19/2024 2:27 AM CORPORATE VP ADVERTISING & ONLINE DIFFERENTIAL AUTO Routine 10/19/2024 2:2 7 AM CORPORATE VP ADVERTISING & ONLINE CBC WITH AUTO DIFFERENTIAL Routine 10/19/2024 2:27 AM CORPORATE VP ADVERTISING & ONLINE MAGNESIUM Routine 10/19/2024 2:27 AM CORPORATE VP ADVERTISING & ONLINE COMPREHENSIVE METABOLIC PANEL Routine 10/19/2024 2:27 AM CORPORATE VP ADVERTISING & ONLINE POCT GLUCOSE DEVICE Routine 10/19/2024 2 :17 AM CORPORATE VP ADVERTISING & ONLINE HEMODIALYSIS Routine 10/19/2024 12:31 AM CORPORATE VP ADVERTISING & ONLINE POCT GLUCOSE DEVICE Routine 10/18/2024 8 :18 PM CORPORATE VP ADVERTISING & ONLINE POCT GLUCOSE DEVICE Routine 10/18/2024 5 :10 PM CORPORATE VP ADVERTISING & ONLINE POCT GLUCOSE DEVICE Routine 10/18/2024 1 2:00 PM CORPORATE VP ADVERTISING & ONLINE POCT GLUCOSE DEVICE Routine 10/18/2024 9 :10 AM CORPORATE VP ADVERTISING & ONLINE EGFR Routine 10/18/2024 2:21 AM CORPORATE VP ADVERTISING & ONLINE DIFFERENTIAL AUTO Routine 10/18/2024 2:2 1 AM CORPORATE VP ADVERTISING & ONLINE CBC WITH AUTO DIFFERENTIAL Routine 10/18/2024 2:21 AM CORPORATE VP ADVERTISING & ONLINE MAGNESIUM Routine 10/18/2024 2:21 AM CORPORATE VP ADVERTISING & ONLINE COMPREHENSIVE METABOLIC PANEL Routine 10/18/2024 2:21 AM CORPORATE VP ADVERTISING & ONLINE POCT GLUCOSE DEVICE Routine 10/18/2024 2 :20 AM CORPORATE VP ADVERTISING & ONLINE POCT GLUCOSE DEVICE Routine 10/17/2024 8 :15 PM CORPORATE VP ADVERTISING & ONLINE POCT GLUCOSE DEVICE Routine 10/17/2024 4 :41 PM CORPORATE VP ADVERTISING & ONLINE POCT GLUCOSE DEVICE Routine 10/17/2024 1 2:43 PM CORPORATE VP ADVERTISING & ONLINE POCT GLUCOSE DEVICE Routine 10/17/2024 2 :13 AM CORPORATE VP ADVERTISING & ONLINE EGFR Routine 10/17/2024 12:13 AM CORPORATE VP ADVERTISING & ONLINE PHOSPHORUS Routine 10/17/2024 12:13 AM CORPORATE VP ADVERTISING & ONLINE DIFFERENTIAL AUTO Routine 10/17/2024 12: 13 AM CORPORATE VP ADVERTISING & ONLINE COMPREHENSIVE METABOLIC PANEL Routine 10/17/2024 12:13 AM CORPORATE VP ADVERTISING & ONLINE MAGNESIUM Routine 10/17/2024 12:13 AM CORPORATE VP ADVERTISING & ONLINE CBC WITH AUTO DIFFERENTIAL Routine 10/17/2024 12:13 AM CORPORATE VP ADVERTISING & ONLINE POTASSIUM LEVEL Timed 10/16/2024 9:06 PM CORPORATE VP ADVERTISING & ONLINE POCT GLUCOSE DEVICE Routine 10/16/2024 8 :49 PM CORPORATE VP ADVERTISING & ONLINE POTASSIUM LEVEL Timed 10/16/2024 5:31 PM CORPORATE VP ADVERTISING & ONLINE POCT GLUCOSE DEVICE Routine 10/16/2024 5 :12 PM CORPORATE VP ADVERTISING & ONLINE POCT GLUCOSE DEVICE Routine 10/16/2024 4 :04 PM CORPORATE VP ADVERTISING & ONLINE POCT GLUCOSE DEVICE Routine 10/16/2024 3 :11 PM CORPORATE VP ADVERTISING & ONLINE OR CRITICAL CARE ILL/INJURED PATIENT INIT 30-74 MIN Routine 10/16/2024 2:08 PM CORPORATE VP ADVERTISING & ONLINE POCT GLUCOSE DEVICE Routine 10/16/2024 1 :44 PM CORPORATE VP ADVERTISING & ONLINE ECG 12-LEAD STAT 10/16/2024 1:37 PM CORPORATE VP ADVERTISING & ONLINE EGFR STAT 10/16/2024 12:35 PM CORPORATE VP ADVERTISING & ONLINE COMPREHENSIVE METABOLIC PANEL STAT 10/16/2024 12:35 PM CORPORATE VP ADVERTISING & ONLINE ECG 12-LEAD STAT 10/16/2024 11:59 AM CORPORATE VP ADVERTISING & ONLINE DIFFERENTIAL AUTO STAT 10/16/2024 11: 49 AM CORPORATE VP ADVERTISING & ONLINE CBC WITH AUTO DIFFERENTIAL STAT 10/16/2024 11:49 AM CORPORATE VP ADVERTISING & ONLINE HEPATITIS PANEL, ACUTE Routine 10/07/2024 11:04 AM CORPORATE VP ADVERTISING & ONLINE OCCULT BLOOD, FECAL (FIT) Routine 08/02/2017 7:41 AM CORPORATE VP ADVERTISING & ONLINE HM MAMMOGRAPHY Routine 01/11/2002 HM COLONOSCOPY Routine 10/14/2001 from Last 3 Months or Most Recently Relevant to Health Maintenance Results * (ABNORMAL) POCT glucose (11/07/2024 4:07 PM CORPORATE VP ADVERTISING & ONLINE) Glucose, POC 232(H) 70 - 199 mg/dL Blood 11/07/2024 4:07 PM CORPORATE VP ADVERTISING & ONLINE 11/07/2024 4:07 PM CORPORATE VP ADVERTISING & ONLINE Marie Soto MD LAB POCT ORDERABLES - DEVICE Final Result Performing Organization Address [facility] Co de Phone Number [facility] (FAN) [address] [place] [address] * (ABNORMAL) POCT glucose (11/07/2024 12:17 PM CORPORATE VP ADVERTISING & ONLINE) Glucose, POC 204(H) 70 - 199 mg/dL Blood 11/07/2024 12:1 7 PM CORPORATE VP ADVERTISING & ONLINE 11/07/2024 12:17 PM CORPORATE VP ADVERTISING & ONLINE Marie Soto MD LAB POCT ORDERABLES - DEVICE Final Result [facility] ([place]) 1 [facility] [place] [address] * (ABNORMAL) POCT glucose (11/07/2024 9:25 AM CORPORATE VP ADVERTISING & ONLINE) Glucose, POC 235(H) 70 - 199 mg/dL Blood 11/07/2024 9:25 AM CORPORATE VP ADVERTISING & ONLINE 11/07/2024 9:25 AM CORPORATE VP ADVERTISING & ONLINE Marie Soto MD LAB POCT ORDERABLES - DEVICE Final Result [facility] (FAN) 1 [facility] [place] [address] * (ABNORMAL) POCT glucose (11/07/2024 7:43 AM CORPORATE VP ADVERTISING & ONLINE) Glucose, POC 218(H) 70 - 199 mg/dL Blood 11/07/2024 7:43 AM CORPORATE VP ADVERTISING & ONLINE 11/07/2024 7:43 AM CORPORATE VP ADVERTISING & ONLINE Marie Soto MD LAB POCT ORDERABLES - DEVICE Final Result Performing Organization Address City/[facility]/ZIP Co de Phone Number [facility] ([place]) 1 [facility] [place] [address] * POCT glucose (11/07/2024 3:26 AM CORPORATE VP ADVERTISING & ONLINE) [facility] Glucose, POC 177 70 - 199 mg/dL Blood 11/07/2024 3:26 AM CORPORATE VP ADVERTISING & ONLINE 11/07/2024 3:26 AM CORPORATE VP ADVERTISING & ONLINE Eliazar Neal II, MD LAB POCT ORDERABLES - DEVICE Final Result Performing Organization Address City/[facility] Co de Phone Number [facility] ([place]) 1 [facility] [place] [address] * (ABNORMAL) eGFR (11/07/2024 2:34 AM CORPORATE VP ADVERTISING & ONLINE) [facility] eGFR 8(L) >=60 mL/min/1. 73 m2 Comment: [...] last reviewed 2021. Blood 11/07/2024 2:34 AM CORPORATE VP ADVERTISING & ONLINE 11/07/2024 4:29 AM CORPORATE VP ADVERTISING & ONLINE us Marek Pierre MD LAB BLOOD ORDERABLES Final Resu lt [facility] ([place]) [address] [facility] [place] [address] * (ABNORMAL) Comprehensive metabolic panel (11/07/2024 2:34 AM CORPORATE VP ADVERTISING & ONLINE) Sodium 139 135 - 145 mmol/L Potassium, [...] Hemolyzed S pecimen Blood 11/07/2024 2:34 AM CORPORATE VP ADVERTISING & ONLINE 11/07/2024 4:29 AM CORPORATE VP ADVERTISING & ONLINE us Marek Pierre MD LAB BLOOD ORDERABLES Final Resu lt Performing Organization Address [facility]/ZIP Co de Phone Number [facility] ([place]) 1 [facility] [place] [address] * (ABNORMAL) POCT glucose (11/06/2024 11:15 PM CORPORATE VP ADVERTISING & ONLINE) Glucose, POC 239(H) 70 - 199 mg/dL Blood 11/06/2024 11:1 5 PM CORPORATE VP ADVERTISING & ONLINE 11/06/2024 11:15 PM CORPORATE VP ADVERTISING & ONLINE us Eliazar Neal II, MD LAB POCT ORDERABLES - DEVICE Final Result Performing Organization Address City/[facility]/ZIP Co de Phone Number [facility] ([place]) 1 [facility] [place] [address] * (ABNORMAL) POCT glucose (11/06/2024 8:00 PM CORPORATE VP ADVERTISING & ONLINE) Glucose, POC 303(H) 70 - 199 mg/dL Blood 11/06/2024 8:00 PM CORPORATE VP ADVERTISING & ONLINE 11/06/2024 8:00 PM CORPORATE VP ADVERTISING & ONLINE Eliazar Neal II, MD LAB POCT ORDERABLES - DEVICE Final Result Performing Organization Address [facility]/ZIP Co de Phone Number [facility] (FAN) 1 [facility] [place] [address] * (ABNORMAL) POCT glucose (11/06/2024 6:20 PM CORPORATE VP ADVERTISING & ONLINE) Glucose, POC 308(H) 70 - 199 mg/dL Blood 11/06/2024 6:20 PM CORPORATE VP ADVERTISING & ONLINE 11/06/2024 6:20 PM CORPORATE VP ADVERTISING & ONLINE Eliazar Neal II, MD LAB POCT ORDERABLES - DEVICE Final Result Performing Organization Address City/[facility]/ZIP Co de Phone Number JOHAN ACOSTA ([place]) [address] [place] [address] * (ABNORMAL) POCT glucose (11/06/2024 5:18 PM CORPORATE VP ADVERTISING & ONLINE) [facility] Signature Glucose, POC 310(H) 70 - 199 mg/dL Blood 11/06/2024 5:18 PM CORPORATE VP ADVERTISING & ONLINE 11/06/2024 5:18 PM CORPORATE VP ADVERTISING & ONLINE Eliazar Neal II, MD LAB POCT ORDERABLES - DEVICE Final Result Performing Organization Address City/[facility]/ZIP Co de Phone Number JOHAN ACOSTA ([place]) 1 [facility] [place] [address] * POCT glucose (11/06/2024 12:16 PM CORPORATE VP ADVERTISING & ONLINE) Glucose, POC 195 70 - 199 mg/dL Blood 11/06/2024 12:1 6 PM CORPORATE VP ADVERTISING & ONLINE 11/06/2024 12:16 PM CORPORATE VP ADVERTISING & ONLINE Eliazar Neal II, MD LAB POCT ORDERABLES - DEVICE Final Result Performing Organization Address City/[facility]/ZIP Co de Phone Number JOHAN ACOSTA ([place]) [address] [place] [address] * (ABNORMAL) eGFR (11/06/2024 7:34 AM CORPORATE VP ADVERTISING & ONLINE) [facility] eGFR 10(L) >=60 mL/min/1. 73 m2 Comment: [...] last reviewed 2021. Blood 11/06/2024 7:34 AM CORPORATE VP ADVERTISING & ONLINE 11/06/2024 8:18 AM CORPORATE VP ADVERTISING & ONLINE us Marek Pierre MD LAB BLOOD ORDERABLES Final Resu lt [facility] ([place]) [address] [facility] [place] [address] * Differential, auto (11/06/2024 7:34 AM CORPORATE VP ADVERTISING & ONLINE) Pathologist [facility] [place] Neutrophil abs 5.0 1.5 - 6.5 K/cumm Imm gran abs 0.1 0.0 - 0.1 K/cumm [facility] ([place]) Lymphocyte abs 1.3 0.8 - 3.3 K/cumm [facility] ([place]) Monocyte abs 0.5 0.2 - 0.8 K/cumm [facility] ([place]) Eosinophil abs 0.0 0.0 - 0.5 K/cumm [facility] ([place]) Basophil abs 0.0 0.0 - 0.1 K/cumm [facility] ([place]) Neutrophil pct 73.1 % [facility] ([place]) Comment: Interpretive Data Percent cell count reference [...] revised on 2017. Monocyte pct 6.8 % [facility] ([place]) Comment: Interpretive Data Percent cell [...] revised on 2017. Blood 11/06/2024 7:34 AM CORPORATE VP ADVERTISING & ONLINE 11/06/2024 8:18 AM CORPORATE VP ADVERTISING & ONLINE us Eliazar Neal II, MD LAB BLOOD ORDERABLES F inal Result JOHAN ACOSTA ([place]) [address] [facility] Department of Laboratories [place], [place] [id number] * (ABNORMAL) CBC with auto differential (11/06/2024 7:34 AM CORPORATE VP ADVERTISING & ONLINE) WBC 6.9 3.8 - 9.9 K/cumm Hgb [...] [facility] ([place]) Blood 11/06/2024 7:34 AM CORPORATE VP ADVERTISING & ONLINE 11/06/2024 8:18 AM CORPORATE VP ADVERTISING & ONLINE us Eliazar Neal II, MD LAB BLOOD ORDERABLES F inal Result [facility] ([place]) [address] [facility] [place] [address] * (ABNORMAL) Comprehensive metabolic panel (11/06/2024 7:34 AM CORPORATE VP ADVERTISING & ONLINE) Sodium 138 135 - 145 mmol/L Potassium, [...] [facility] ([place]) Blood 11/06/2024 7:34 AM CORPORATE VP ADVERTISING & ONLINE 11/06/2024 8:18 AM CORPORATE VP ADVERTISING & ONLINE Marek Pierre MD LAB BLOOD ORDERABLES Final Resu lt Performing Organization Address City/[facility]/ZIP Co de Phone Number [facility] ([place]) [address] [place] [place] [address] * POCT glucose (11/06/2024 7:23 AM CORPORATE VP ADVERTISING & ONLINE) [facility] Signature Glucose, POC 166 70 - 199 mg/dL Blood 11/06/2024 7:23 AM CORPORATE VP ADVERTISING & ONLINE 11/06/2024 7:23 AM CORPORATE VP ADVERTISING & ONLINE Eliazar Neal II, MD LAB POCT ORDERABLES - DEVICE Final Result Performing Organization Address City/[facility]/ZIP Co de Phone Number [facility] ([place] [address] [facility] [place] [address] * (ABNORMAL) POCT glucose (11/06/2024 4:16 AM CORPORATE VP ADVERTISING & ONLINE) Glucose, POC 203(H) 70 - 199 mg/dL Blood 11/06/2024 4:16 AM CORPORATE VP ADVERTISING & ONLINE 11/06/2024 4:16 AM CORPORATE VP ADVERTISING & ONLINE Eliazar Neal II, MD LAB POCT ORDERABLES - DEVICE Final Result Performing Organization Address [facility] Co de Phone Number JOHAN ACOSTA ([place]) 1 [facility] [place] [address] * POCT glucose (11/05/2024 11:46 PM CORPORATE VP ADVERTISING & ONLINE) Glucose, POC 141 70 - 199 mg/dL Blood 11/05/2024 11:4 6 PM CORPORATE VP ADVERTISING & ONLINE 11/05/2024 11:46 PM CORPORATE VP ADVERTISING & ONLINE Eliazar Neal II, MD LAB POCT ORDERABLES - DEVICE Final Result Performing Organization Address [facility] de Phone Number [facility]OHAN [facility] ([place]) 1 [facility] [place] [address] * POCT glucose (11/05/2024 8:19 PM CORPORATE VP ADVERTISING & ONLINE) Glucose, POC 167 70 - 199 mg/dL Blood 11/05/2024 8:19 PM CORPORATE VP ADVERTISING & ONLINE 11/05/2024 8:19 PM CORPORATE VP ADVERTISING & ONLINE Eliazar Neal II, MD LAB POCT ORDERABLES - DEVICE Final Result Performing Organization Address [facility] de Phone Number [facility]AN [facility] ([place]) 1 [facility] [place] [address] * (ABNORMAL) POCT glucose (11/05/2024 5:21 PM CORPORATE VP ADVERTISING & ONLINE) Glucose, POC 230(H) 70 - 199 mg/dL Blood 11/05/2024 5:21 PM CORPORATE VP ADVERTISING & ONLINE 11/05/2024 5:21 PM CORPORATE VP ADVERTISING & ONLINE Eliazar Neal II, MD LAB POCT ORDERABLES - DEVICE Final Result Performing Organization Address [facility]/ZIP Co de Phone Number JOHAN Pagan[place]) 1 [facility] [place] [address] * (ABNORMAL) POCT glucose (11/05/2024 11:41 AM CORPORATE VP ADVERTISING & ONLINE) Glucose, POC 214(H) 70 - 199 mg/dL Blood 11/05/2024 11:4 1 AM CORPORATE VP ADVERTISING & ONLINE 11/05/2024 11:41 AM CORPORATE VP ADVERTISING & ONLINE us Eliazar Neal II, MD LAB POCT ORDERABLES - DEVICE Final Result Performing Organization Address [facility] Co de Phone Number JOHAN PaganBO[place]) 1 [facility] [place] [address] * (ABNORMAL) POCT glucose (11/05/2024 7:41 AM CORPORATE VP ADVERTISING & ONLINE) Glucose, POC 219(H) 70 - 199 mg/dL Blood 11/05/2024 7:41 AM CORPORATE VP ADVERTISING & ONLINE 11/05/2024 7:41 AM CORPORATE VP ADVERTISING & ONLINE us Eliazar Neal II, MD LAB POCT ORDERABLES - DEVICE Final Result Performing Organization Address [facility] Co de Phone Number JOHAN ACOSTA ([place]) 1 [facility] [place] [address] * (ABNORMAL) eGFR (11/05/2024 7:24 AM CORPORATE VP ADVERTISING & ONLINE) eGFR 12(L) >=60 mL/min/1. 73 m2 Comment: [...] last reviewed 2021. Blood 11/05/2024 7:24 AM CORPORATE VP ADVERTISING & ONLINE 11/05/2024 7:48 AM CORPORATE VP ADVERTISING & ONLINE us Marek Pierre MD LAB BLOOD ORDERABLES Final Resu lt [facility] ([place]) [address] [facility] [place] [address] * (ABNORMAL) Differential, auto (11/05/2024 7:24 AM CORPORATE VP ADVERTISING & ONLINE) Neutrophil abs 6.0 1.5 - 6.5 K/cumm [...] revised on 2017. Blood 11/05/2024 7:24 AM CORPORATE VP ADVERTISING & ONLINE 11/05/2024 7:48 AM CORPORATE VP ADVERTISING & ONLINE us Eliazar Neal II, MD LAB BLOOD ORDERABLES F inal Result [facility] ([place]) [address] [facility] [place] [address] * (ABNORMAL) CBC with auto differential (11/05/2024 7:24 AM CORPORATE VP ADVERTISING & ONLINE) WBC 6.7 3.8 - 9.9 K/cumm Hgb [...] ([place]) MCH 30.1 27.1 - 33.3 pg [facility] ([place]) MCHC 31.8(L) 32.3 - 35.7 g/dL [facility] ([place]) RDW CV 15.9(H) 11.1 - 14.9 % [facility] ([place]) RDW SD 54.4(H) 35.7 - 48.1 fL [facility] ([place]) NRBC abs 0.00 0.00 - 0.01 K/cumm [facility] ([place]) Blood 11/05/2024 7:24 AM CORPORATE VP ADVERTISING & ONLINE 11/05/2024 7:48 AM CORPORATE VP ADVERTISING & ONLINE us Eliazar Neal II, MD LAB BLOOD ORDERABLES F inal Result [facility] ([place]) [address] [facility] [place] [address] * Lipid panel (11/05/2024 7:24 AM CORPORATE VP ADVERTISING & ONLINE) Cholesterol 184 30 - 199 mg/dL Comment: [...] 3. Gurpreet Dockery et al. DARIN Cardiol. 2020 January 11;5(5):540-548. [...] R [facility] ([place]) Blood 11/05/2024 7:24 AM CORPORATE VP ADVERTISING & ONLINE 11/05/2024 7:48 AM CORPORATE VP ADVERTISING & ONLINE us Eliazar Neal II, MD LAB BLOOD ORDERABLES F inal Result [facility] ([place]) [address] [facility] [place] [address] * (ABNORMAL) Comprehensive metabolic panel (11/05/2024 7:24 AM CORPORATE VP ADVERTISING & ONLINE) Sodium 139 135 - 145 mmol/L Potassium, [...] Hemolyzed S pecimen Blood 11/05/2024 7:24 AM CORPORATE VP ADVERTISING & ONLINE 11/05/2024 7:48 AM CORPORATE VP ADVERTISING & ONLINE us Marek Pierre MD LAB BLOOD ORDERABLES Final Resu lt Performing Organization Address [facility] Co de Phone Number JOHAN ACOSTA ([place]) 1 [facility] [place] [address] * (ABNORMAL) POCT glucose (11/05/2024 3:44 AM CORPORATE VP ADVERTISING & ONLINE) Glucose, POC 269(H) 70 - 199 mg/dL Blood 11/05/2024 3:44 AM CORPORATE VP ADVERTISING & ONLINE 11/05/2024 3:44 AM CORPORATE VP ADVERTISING & ONLINE Eliazar Neal II, MD LAB POCT ORDERABLES - DEVICE Final Result Performing Organization Address [facility] Co de Phone Number JOHAN ACOSTA ([place]) 1 [facility] [place] [address] * (ABNORMAL) POCT glucose (11/04/2024 11:55 PM CORPORATE VP ADVERTISING & ONLINE) Glucose, POC 254(H) 70 - 199 mg/dL Blood 11/04/2024 11:5 5 PM CORPORATE VP ADVERTISING & ONLINE 11/04/2024 11:55 PM CORPORATE VP ADVERTISING & ONLINE Eliazar Neal II, MD LAB POCT ORDERABLES - DEVICE Final Result Performing Organization Address [facility] Co de Phone Number JOHAN ACOSTA ([place]) 1 [place] [address] * (ABNORMAL) POCT glucose (11/04/2024 7:59 PM CORPORATE VP ADVERTISING & ONLINE) Glucose, POC 284(H) 70 - 199 mg/dL Blood 11/04/2024 7:59 PM CORPORATE VP ADVERTISING & ONLINE 11/04/2024 7:59 PM CORPORATE VP ADVERTISING & ONLINE us Eliazar Neal II, MD LAB POCT ORDERABLES - DEVICE Final Result [facility] ([place]) 1 [place] [address] * (ABNORMAL) POCT glucose (11/04/2024 4:10 PM CORPORATE VP ADVERTISING & ONLINE) Glucose, POC 350(H) 70 - 199 mg/dL Blood 11/04/2024 4:10 PM CORPORATE VP ADVERTISING & ONLINE 11/04/2024 4:10 PM CORPORATE VP ADVERTISING & ONLINE us Eliazar Neal II, MD LAB POCT ORDERABLES - DEVICE Final Result Performing Organization Address City/[facility]/ZIP Co de Phone Number [facility]AN [facility] ([place]) 1 [place] [address] * POCT glucose (11/04/2024 1:01 PM CORPORATE VP ADVERTISING & ONLINE) Glucose, POC 185 70 - 199 mg/dL Blood 11/04/2024 1:01 PM CORPORATE VP ADVERTISING & ONLINE 11/04/2024 1:01 PM CORPORATE VP ADVERTISING & ONLINE Eliazar Neal II, MD LAB POCT ORDERABLES - DEVICE Final Result Performing Organization Address City/[facility]/ZIP Co de Phone Number [facility]AN [facility] ([place]) [address] [place] [address] * (ABNORMAL) eGFR (11/04/2024 8:30 AM CORPORATE VP ADVERTISING & ONLINE) eGFR 9(L) >=60 mL/min/1. 73 m2 Comment: [...] last reviewed 2021. Blood 11/04/2024 8:30 AM CORPORATE VP ADVERTISING & ONLINE 11/04/2024 8:43 AM CORPORATE VP ADVERTISING & ONLINE us Marek Pierre MD LAB BLOOD ORDERABLES Final Resu lt JOHAN W[facility] ([place] [address] [facility] [place] [address] * Hepatitis B surface antibody (immune status) Blood (11/04/2024 8:30 AM CORPORATE VP ADVERTISING & ONLINE) HBsAb (immune status) Nonreactive Comment: Interpretive Data [...] last revised on 19. Testing performed by: [facility], [address] [place] [address], [place]., [address] Blood 11/04/2024 8:30 AM CORPORATE VP ADVERTISING & ONLINE 11/04/2024 11:08 AM CORPORATE VP ADVERTISING & ONLINE us Miguel Jamison MD LAB MICROBIOLOGY - GENER AL ORDERABLES Final Result Performing Organization Address City/[facility]/ZIP Co de Phone Number JOHAN ACOSTA ([place]) 1 [facility] [place] [address] * Hepatitis B Surface Antigen Blood (11/04/2024 8:30 AM CORPORATE VP ADVERTISING & ONLINE) HepBsAg Nonreactive Nonreactive Comment:Testing performed by : [facility], [address] [place] [address], [id number] Blood 11/04/2024 8:30 AM CORPORATE VP ADVERTISING & ONLINE 11/04/2024 11:08 AM CORPORATE VP ADVERTISING & ONLINE Miguel Jamison MD LAB MICROBIOLOGY - GENER AL ORDERABLES Final Result Performing Organization Address [facility] Co de Phone Number JOHAN ACOSTA ([place]) 1 [facility] [place] [address] * (ABNORMAL) Comprehensive metabolic panel (11/04/2024 8:30 AM CORPORATE VP ADVERTISING & ONLINE) Sodium 133(L) 135 - 145 mmol/L Potassium, pl 5.4(H) 3.3 - 4.9 mmol/L [facility] ([place]) Chloride 94(L) 97 - 110 mmol/L [facility] ([place]) CO2 25 22 - 32 mmol/L [facility] ([place]) Anion gap 14 2 - 15 mmol/L [facility] ([place]) BUN 58(H) 6 - 25 mg/dL [facility] ([place]) Creatinine 5.23(H) 0.60 - 1.10 mg/dL [facility] ([place]) Glucose 254(H) 70 - 199 mg/dL [facility] ([place]) Comment: Interpretive Data Fasting [...] [facility] ([place]) Blood 11/04/2024 8:30 AM CORPORATE VP ADVERTISING & ONLINE 11/04/2024 8:43 AM CORPORATE VP ADVERTISING & ONLINE us Marek Pierre MD LAB BLOOD ORDERABLES Final Resu lt [facility] ([place]) [address] [facility] [place] [address] * (ABNORMAL) POCT glucose (11/04/2024 7:26 AM CORPORATE VP ADVERTISING & ONLINE) Glucose, POC 240(H) 70 - 199 mg/dL Blood 11/04/2024 7:26 AM CORPORATE VP ADVERTISING & ONLINE 11/04/2024 7:26 AM CORPORATE VP ADVERTISING & ONLINE us Eliazar Neal II, MD LAB POCT ORDERABLES - DEVICE Final Result JOHAN ACOSTA ([place]) [address] [facility] [place] [address] * (ABNORMAL) POCT glucose (11/04/2024 4:35 AM CORPORATE VP ADVERTISING & ONLINE) Glucose, POC 244(H) 70 - 199 mg/dL Blood 11/04/2024 4:35 AM CORPORATE VP ADVERTISING & ONLINE 11/04/2024 4:35 AM CORPORATE VP ADVERTISING & ONLINE Kimmy Velez MD LAB POCT ORDERABLES - DEVICE F inal Result Performing Organization Address City/[facility]/ZIP Co de Phone Number [facility]AN [facility] ([place]) 1 [facility] [place] [address] * (ABNORMAL) POCT glucose (11/04/2024 2:01 AM CORPORATE VP ADVERTISING & ONLINE) Glucose, POC 228(H) 70 - 199 mg/dL Blood 11/04/2024 2:01 AM CORPORATE VP ADVERTISING & ONLINE 11/04/2024 2:01 AM CORPORATE VP ADVERTISING & ONLINE Kimmy Velez MD LAB POCT ORDERABLES - DEVICE F inal Result Performing Organization Address [facility] Co de Phone Number [facility]AN [facility] ([place]) 1 [facility] [place] [address] * (ABNORMAL) POCT glucose (11/03/2024 8:36 PM CORPORATE VP ADVERTISING & ONLINE) Glucose, POC 285(H) 70 - 199 mg/dL Blood 11/03/2024 8:36 PM CORPORATE VP ADVERTISING & ONLINE 11/03/2024 8:36 PM CORPORATE VP ADVERTISING & ONLINE Kimmy Velez MD LAB POCT ORDERABLES - DEVICE F inal Result Performing Organization Address [facility] Co de Phone Number [facility]AN [facility] ([place]) 1 [facility] [place] [address] * (ABNORMAL) POCT glucose (11/03/2024 4:18 PM CORPORATE VP ADVERTISING & ONLINE) Glucose, POC 254(H) 70 - 199 mg/dL Blood 11/03/2024 4:18 PM CORPORATE VP ADVERTISING & ONLINE 11/03/2024 4:18 PM CORPORATE VP ADVERTISING & ONLINE Marek Pierre MD LAB POCT ORDERABLES - DEVICE Fi nal Result Performing Organization Address City/[facility]/ZIP Co de Phone Number [facility]AN [facility] ([place]) 1 [facility] [place] [address] * (ABNORMAL) POCT glucose (11/03/2024 12:54 PM CORPORATE VP ADVERTISING & ONLINE) Glucose, POC 207(H) 70 - 199 mg/dL Blood 11/03/2024 12:5 4 PM CORPORATE VP ADVERTISING & ONLINE 11/03/2024 12:54 PM CORPORATE VP ADVERTISING & ONLINE Marek Pierre MD LAB POCT ORDERABLES - DEVICE Fi nal Result JOHAN ACOSTA ([place]) 1 [place] [address] * POCT glucose (11/03/2024 8:00 AM CORPORATE VP ADVERTISING & ONLINE) Glucose, POC 137 70 - 199 mg/dL Blood 11/03/2024 8:00 AM CORPORATE VP ADVERTISING & ONLINE 11/03/2024 8:00 AM CORPORATE VP ADVERTISING & ONLINE Marek Pierre MD LAB POCT ORDERABLES - DEVICE Fi nal Result Performing Organization Address City/[facility]/ZIP Co de Phone Number JOHAN ACOSTA ([place]) [address] [place] [address] * Blood culture Blood (11/03/2024 4:51 AM CORPORATE VP ADVERTISING & ONLINE) Report Final Report: No growth Comment:Testing performed by : [facility], [address] [place] [address] Blood 11/03/2024 4:51 AM CORPORATE VP ADVERTISING & ONLINE 11/03/2024 8:08 AM CORPORATE VP ADVERTISING & ONLINE Narrative [facility]ON KARLA ([place]) - 11/07/2024 12:00 PM CORPORATE VP ADVERTISING & ONLINE 1. Blood cultures are incubated for 4 [...] performance characteristics have been verified by the [facility] Microbiology [facility]. For questions about this culture, contact the Microbiology Laboratory at [phone]. Interpretive data was last revised on 24. Norm Resendiz MD LAB MICROBIOLOGY - GENERAL O RDERABLES Final Result Performing Organization Address City/[facility] Co de Phone Number JOHAN [facility] ([place]) [address] [facility] [place] [address] * POCT glucose (11/03/2024 4:13 AM CORPORATE VP ADVERTISING & ONLINE) Glucose, POC 134 70 - 199 mg/dL Blood 11/03/2024 4:13 AM CORPORATE VP ADVERTISING & ONLINE 11/03/2024 4:13 AM CORPORATE VP ADVERTISING & ONLINE Marek Pierre MD LAB POCT ORDERABLES - DEVICE Fi nal Result Performing Organization Address [facility] Co de Phone Number JOHAN [facility] ([place]) [address] [facility] [place] [address] * POCT glucose (11/03/2024 12:40 AM CORPORATE VP ADVERTISING & ONLINE) Glucose, POC 151 70 - 199 mg/dL Blood 11/03/2024 12:4 0 AM CORPORATE VP ADVERTISING & ONLINE 11/03/2024 12:40 AM CORPORATE VP ADVERTISING & ONLINE Marek Pierre MD LAB POCT ORDERABLES - DEVICE Fi nal Result Performing Organization Address [facility] Co de Phone Number [facility]AN [facility] ([place]) [address] [place] [address] [place] [address] * OR CRITICAL CARE ILL/INJURED PATIENT INIT 30-74 MIN (11/02/2024 10:16 PM CORPORATE VP ADVERTISING & ONLINE) Narrative Norm Resendiz MD - 11/02/2024 10:16 PM CORPORATE VP ADVERTISING & ONLINE Norm Resendiz MD 11/02/2024 10:16 PM Critical [...] Result * Critical Care (11/02/2024 9:53 PM CORPORATE VP ADVERTISING & ONLINE) Narrative Lorena Tobar MD - 11/02/2024 9:53 PM CORPORATE VP ADVERTISING & ONLINE Lorena Tobar MD 11/03/2024 12:55 AM Critical [...] plan with the ICU team and other medical/continuous improvement consultant staff, making frequent assessments and decisions [...] and COVID-19 PCR Nasopharyngeal (11/02/2024 9:50 PM CORPORATE VP ADVERTISING & ONLINE) COVID-19 RNA Negative Negative Influenza A RNA Positive(A) Negative [facility] ([place]) Influenza B RNA Negative Negative [facility] ([place]) RSV RNA Negative Negative [facility] ([place]) Comment: Interpretive data: Testing performed by [facility]. This test is performed using the [employer] Xpert Xpress CoV-2/Flu/RSV plus assay. This is a multiplex, real- time reverse transcriptase PCR assay intended for the qualitative detection of nucleic acid from SARS-CoV-2, influenza A, influenza B, and respiratory syncytial virus. This assay has been cleared by the [place] Food and Drug administration. The performance characteristics have been verified by the [facility]. Results must be considered in the clinical context, and a negative result does not rule out infection. Interpretive Data last revised 2023 Nasopharyngeal 11/02/2024 9: 50 PM CORPORATE VP ADVERTISING & ONLINE 11/02/2024 9:58 PM CORPORATE VP ADVERTISING & ONLINE Narrative [facility] ([place]) - 11/02/2024 10:41 PM CORPORATE VP ADVERTISING & ONLINE Is the Patient experiencing symptoms consistent with COVID?->Unknown Lorena Tobar MD LAB MICROBIOLOGY - GENERAL O RDERABLES Final Result [facility] ([place]) [address] [facility] [place] [address] * POCT glucose (11/02/2024 9:29 PM CORPORATE VP ADVERTISING & ONLINE) [facility] Glucose, POC 133 70 - 199 mg/dL Blood 11/02/2024 9:29 PM CORPORATE VP ADVERTISING & ONLINE 11/02/2024 9:29 PM CORPORATE VP ADVERTISING & ONLINE Marek Pierre MD LAB POCT ORDERABLES - DEVICE Fi nal Result Performing Organization Address City/[facility]/ZIP Co de Phone Number JOHAN ACOSTA ([place]) 1 [facility] [place] [address] * (ABNORMAL) Troponin T high-sensitivity 6-hour (11/02/2024 8:58 PM CORPORATE VP ADVERTISING & ONLINE) [facility] Trop T hs 145(H) <=14 ng/L Comment: Interpretive Data For further hscTnT resources including the diagnostic algorithm and an aid in interpretation, copy and paste this link: https://nrl.testcatalog.org/show/hsTrop Current Interpretive Data last revised 2020. Trop T hs delta See Comment ng/L CE RNMELISSA ACOSTA ([place]) Comment:Inappropriate collec tion time to report a delta. Trop T hs pct delta See Comment % JOHAN ACOSTA ([place]) Comment:Inappropriate collec tion time to report a delta. Trop T hs interp See Comment C SIENNA ACOSTA ([place]) Comment:Inappropriate collec tion time to report a delta. Blood 11/02/2024 8:58 PM CORPORATE VP ADVERTISING & ONLINE 11/02/2024 9:05 PM CORPORATE VP ADVERTISING & ONLINE us Norm Resendiz MD LAB BLOOD ORDERABLES Final R esult Performing Organization Address City/[facility]/ZIP Co de Phone Number JOHAN ACOSTA ([place]) 1 [facility] [place] [address] * (ABNORMAL) Blood culture Blood (11/02/2024 8:58 PM CORPORATE VP ADVERTISING & ONLINE) [facility] Direct Specimen Exam Molecular Analysis: Staphylococcus epidermidis (methicillin-resis tant) detected by gui [employer] BCID-GP panel. Single positive culture may represent contamination. This test does not exclude the possibility of a mixed bacterial infection. Notification of: Staphylococcus epidermidis (methicillin-resis tant) called to and read back by: Alaina Caputo MLT [phone] on 11/03/2024 23:52:59 by: Thuy Stanford MT Notification of: Staphylococcus epidermidis (methicillin-resis tant) called to and read back by: Korina Kerr [facility] ICU on 11/03/2024 23:55:52 by: Alaina Caputo MLT Comment:Testing performed by : [facility], [address] [place] [address]., [id number] Direct Specimen Exam Stain: Gram Positive Cocci in clusters Time to culture positivity (aerobic media): 19.6 hours Notification of: Gram Positive Cocci in clusters called to and read back by: Alaina Caputo MLT ,[phone] on 11/03/2024 22:08:21 by: Lidia Hull MT Notification of: Gram Positive Cocci in clusters called to and read back by: Blayne Fang [facility] ICU on 11/03/2024 22:14:55 by: Alaina ACOSTA ([place]) Comment:Testing performed by : [facility], [address] [place] [address]., [id number] Report Final Report: Staphylococcus epidermidis Single blood [...] JOHAN ACOSTA ([place]) Comment:Testing performed by : [facility], [address] [place] [address]., [id number] Organism STAPHYLOCOCCUS EPIDERMIDIS JOHAN ACOSTA ([place]) Organism STAPHYLOCOCCUS EPIDERMIDIS JOHAN ACOSTA ([place]) Blood 11/02/2024 8:58 PM CORPORATE VP ADVERTISING & ONLINE 11/03/2024 1:25 AM CORPORATE VP ADVERTISING & ONLINE Narrative JOHAN ACOSTA ([place]) - 11/08/2024 2:53 PM CORPORATE VP ADVERTISING & ONLINE 1. Blood cultures are incubated for 4 [...] performance characteristics have been verified by the [facility] Microbiology Laboratory. For questions about this culture, contact the Microbiology Laboratory at [phone]. Interpretive data was last revised on 24. Norm Resendiz MD LAB MICROBIOLOGY - GENERAL O RDERABLES Final Result JOHAN KARLA ([place]) [address] [facility] [place] [address] * Blood gas, venous (11/02/2024 8:58 PM CORPORATE VP ADVERTISING & ONLINE) pH, Venous 7.37 7.32 - 7.43 PCO2, Venous 48 40 - 50 mmHg JOHAN ACOSTA ([place]) PO2, Venous 146 mmHg JOHAN Ho ([place]) Comment: Interpretive Data No reference range established. Current interpretive data was last revised 2017. HCO3 Venous, Calculated 26 20 - 30 mmol/L [facility] ([place]) BE, venous 1 mmol/L [facility] ([place]) Comment: Interpretive Data No Reference Range Established Current Interpretive Data was last revised on 2017. Blood 11/02/2024 8:58 PM CORPORATE VP ADVERTISING & ONLINE 11/02/2024 9:05 PM CORPORATE VP ADVERTISING & ONLINE Lorena Tobar MD LAB BLOOD ORDERABLES Final R esult JOHAN ACOSTA ([place]) 1 [facility] [place] [address] * POCT glucose (11/02/2024 6:40 PM CORPORATE VP ADVERTISING & ONLINE) Glucose, POC 122 70 - 199 mg/dL Blood 11/02/2024 6:40 PM CORPORATE VP ADVERTISING & ONLINE 11/02/2024 6:40 PM CORPORATE VP ADVERTISING & ONLINE Fuentes Persaud MD LAB POCT ORDERABLES - BRITTANY CE Final Result Performing Organization Address [facility]/ZIP Co de Phone Number JOHAN ACOSTA ([place]) 1 [facility] [place] [address] * (ABNORMAL) Urinalysis reflex to microscopic and culture Urine, in and out catheter (11/02/2024 2:26PM CORPORATE VP ADVERTISING & ONLINE) Color, ur Yellow Clarity, ur Cloudy(A) Clear [...] tendency for uric acid stone formation. Source: [facility] [employer] Current Interpretive Data was last revised on 2017 Protein, ur ql 2+(A) Negative [facility] (FAN) Glucose, ur ql Negative Negative [facility] (FAN) Ketones, ur Negative Negative [facility] (FAN) Bilirubin, ur Negative Negative [facility] (FAN) Blood, ur 2+(A) Negative [facility] (FAN) Urobilinogen, ur <2.0 <2.0 mg/dL [facility] (AFN) Nitrite, ur Positive(A) Negative [facility] (FAN) Leukocyte esterase, ur 4+(A) Negative [facility] (FAN) UA reflex comment Reflex to microscopic UA will be performed. [facility] (FAN) Urine, in and out catheter 11/02/2024 2:26 PM CORPORATE VP ADVERTISING & ONLINE 11/02/2024 2:30 PM CORPORATE VP ADVERTISING & ONLINE Norm Resendiz MD LAB MICROBIOLOGY - GENERAL O RDERABLES Final Result Performing Organization Address City/[facility]/ZIP Co de Phone Number JOHAN ACOSTA (FAN) 1 [facility] [place] [address] * (ABNORMAL) Urinalysis, microscopic only (11/02/2024 2:26 PM CORPORATE VP ADVERTISING & ONLINE) WBC, ur >50(A) 0 - 5 /HPF RBC, ur 21-50(A) 0 - 2 /HPF [facility] (FAN) Epithelial cells, squamous, ur 1-5 0 - 5 /HPF [facility] (FAN) Bacteria, ur Trace(A) [facility] (FAN) Culture Reflex Comment Reflex to urine culture will be performed. [facility] (FAN) Urine, in and out catheter 11/02/2024 2:26 PM CORPORATE VP ADVERTISING & ONLINE 11/02/2024 2:30 PM CORPORATE VP ADVERTISING & ONLINE Norm Resendiz MD LAB URINE ORDERABLES Final R esult Performing Organization Address City/[facility]/ZIP Co de Phone Number JOHAN ACOSTA (FAN) 1 [facility] [place] [address] * (ABNORMAL) Urine culture Urine, in and out catheter (11/02/2024 2:26 PM CORPORATE VP ADVERTISING & ONLINE) Report Final Report: Greater than or equal to 100,000 colonies/mL of Escherichia coli The susceptibility pattern of this Escherichia coli indicates the possible production of an extended spectrum beta lactamase (ESBL). Patients infected with ESBL-producing organisms require contact isolation precautions. For therapeutic options for this organism, please contact infectious diseases. (.) Comment:Testing performed by : [facility], [address] [facility], [place]., [address] Organism ESCHERICHIA COLI NATANAEL WON ACOSTA (FAN) Urine, in and out catheter 11/02/2024 2:26 PM CORPORATE VP ADVERTISING & ONLINE 11/02/2024 6:13 PM CORPORATE VP ADVERTISING & ONLINE Narrative NATANAELWON ACOSTA (FAN) - 11/05/2024 2:02 PM CORPORATE VP ADVERTISING & ONLINE Urine culture reflexed based upon urinalysis results. Testing performed by [facility] ([phone]) Organism Antibiotic Method Susceptibility Escherichia coli Ampicillin [...] ION Resistant Escherichia coli Fosfomycin INTERPRETATION Susceptible Norm Resendiz MD LAB MICROBIOLOGY - GENERAL O RDERABLES Final Result JOHAN KARLA (FAN) 1 [facility] [place] [address] * XR Chest 1 View (11/02/2024 1:57 PM CORPORATE VP ADVERTISING & ONLINE) Anatomical Region Laterality Modality Body, Chest N/A Computed Radiogr aphy 11/02/2024 2:23 PM CORPORATE VP ADVERTISING & ONLINE Narrative 11/02/2024 2:34 PM CORPORATE VP ADVERTISING & ONLINE EXAM DESCRIPTION: XR CHEST 1 VIEW REASON FOR STUDY: CHEST PAIN. Patient here for altered mental status. She comes from the correction. She has been lethargic today. She is [...] [place] Costa M.D. RB: NESHA Report ID: [id number] Reading Location: [id number] Procedure Note Adal Costa MD - 11/02/2024 EXAM DESCRIPTION: XR CHEST 1 VIEW REASON FOR STUDY: CHEST PAIN. Patient here for altered mental status. She comes from the correction.She has been lethargic today. She is unable [...] [place]al Costa M.D. RB: RB Report ID: [id number] Reading Location: [place] [address] Norm Resendiz MD IMG XR PROCEDURES Final Resu lt * (ABNORMAL) Troponin T high-sensitivity series (baseline, 2hr, 4hr, 6hr) (11/02/2024 1:54 PM CORPORATE VP ADVERTISING & ONLINE) Trop T hs 102(H) <=14 ng/L Comment: Interpretive Data For further hscTnT resources including the diagnostic algorithm and an aid in interpretation, copy and paste this link: https://nrl.testcatalog.org/show/hsTrop Current Interpretive Data last revised 2020. Blood 11/02/2024 1:54 PM CORPORATE VP ADVERTISING & ONLINE 11/02/2024 1:56 PM CORPORATE VP ADVERTISING & ONLINE Norm Resendiz MD LAB BLOOD ORDERABLES Final R esult [facility] [place] 1 [facility] [place] [address] * Sepsis Lactate w/ Reflex (11/02/2024 1:54 PM CORPORATE VP ADVERTISING & ONLINE) Pathologist [facility] Sepsis Lactate 0.8 0.7 - 2.0 mmol/L Blood 11/02/2024 1:54 PM CORPORATE VP ADVERTISING & ONLINE 11/02/2024 1:56 PM CORPORATE VP ADVERTISING & ONLINE Norm Resendiz MD LAB BLOOD ORDERABLES Final R esult Performing Organization Address City/[facility]/ZIP Co de Phone Number JOHAN ACOSTA ([place]) 1 [facility] [place] [address] * (ABNORMAL) eGFR (11/02/2024 1:54 PM CORPORATE VP ADVERTISING & ONLINE) eGFR 11(L) >=60 mL/min/1. 73 m2 Comment: [...] last reviewed 2021. Blood 11/02/2024 1:54 PM CORPORATE VP ADVERTISING & ONLINE 11/02/2024 1:56 PM CORPORATE VP ADVERTISING & ONLINE Norm Resendiz MD LAB BLOOD ORDERABLES Final R esult Performing Organization Address City/[facility]/ZIP Co de Phone Number JOAHN ACOSTA (FAN) 1 [facility] Department [place] [address] * (ABNORMAL) Differential, auto (11/02/2024 1:54 PM CORPORATE VP ADVERTISING & ONLINE) Neutrophil abs 4.7 1.5 - 6.5 K/cumm [...] revised on 2017. Blood 11/02/2024 1:54 PM CORPORATE VP ADVERTISING & ONLINE 11/02/2024 1:56 PM CORPORATE VP ADVERTISING & ONLINE us Norm Resendiz MD LAB BLOOD ORDERABLES Final R esult JOHAN KARLA ([place]) 1 [facility] [place] [address] * (ABNORMAL) Pro B-type natriuretic peptide (11/02/2024 1:54 PM CORPORATE VP ADVERTISING & ONLINE) NT-proBNP 7,730(H) <=300 pg/mL Comment: Interpretive Comments: [...] LONG et.al. Eur Heart J. 2006:27:330-337. 2. Camrny RW, Tracie AM. J. AM Mark Cardiol: Cardiovasc Imag. 2009;2: 216- 225. Interpretive Data Last Revised Date: 2018. Blood 11/02/2024 1:54 PM CORPORATE VP ADVERTISING & ONLINE 11/02/2024 1:56 PM CORPORATE VP ADVERTISING & ONLINE us Norm Resendiz MD LAB BLOOD ORDERABLES Final R esult [facility] [place] 1 [facility] [place] [address] * (ABNORMAL) CBC with auto differential (11/02/2024 1:54 PM CORPORATE VP ADVERTISING & ONLINE) WBC 6.0 3.8 - 9.9 K/cumm Hgb [...] [facility] (FAN) Blood 11/02/2024 1:54 PM CORPORATE VP ADVERTISING & ONLINE 11/02/2024 1:56 PM CORPORATE VP ADVERTISING & ONLINE us Norm Resendiz MD LAB BLOOD ORDERABLES Final R esult [facility] (FAN) 1 [facility] [place] [address] * Levetiracetam level (11/02/2024 1:54 PM CORPORATE VP ADVERTISING & ONLINE) Levetiracetam (Keppra) 24.6 10.0 - 40.0 mcg/mL [facility] ref Lab Comment: ADDITIONAL INFORMATION This test was developed and its performance characteristics determined by [facility] in a manner consistent with CLIA requirements. This test has not been cleared or approved by the U.S. Food and Drug Administration. Test Performed by: [facility] [address] [place] [address] [employer] Net Developer: Nelson Calixto Ph.D.; CLIA# [id number] Blood 11/02/2024 1:54 PM CORPORATE VP ADVERTISING & ONLINE 11/02/2024 2:02 PM CORPORATE VP ADVERTISING & ONLINE Norm Resendiz MD LAB BLOOD ORDERABLES Final R esult Performing Organization Address City/[facility]/ZIP Co de Phone Number [facility] ([place]) 1 [place] [address] Ham ref Lab * aPTT (11/02/2024 1:54 PM CORPORATE VP ADVERTISING & ONLINE) aPTT 30 28 - 38 sec [facility] ([place]) Comment: Interpretive Data Heparin therapeutic range: 66.0 - 100.0 seconds. Range based on correlation with therapeutic heparin activity range of 0.3 - 0.7 Units/mL. Current interpretive data was last revised on 2023. Blood 11/02/2024 1:54 PM CORPORATE VP ADVERTISING & ONLINE 11/02/2024 1:56 PM CORPORATE VP ADVERTISING & ONLINE Norm Resendiz MD LAB BLOOD ORDERABLES Final R esult Performing Organization Address [facility] Co de Phone Number [facility] ([place]) 1 [facility] [place] [address] * Protime-INR (11/02/2024 1:54 PM CORPORATE VP ADVERTISING & ONLINE) PT 10.2 9.7 - 13.0 sec [facility] INR 0.95 0.90 - 1.20 [facility] ([place]) Comment: Interpretive data Oral anticoagulant therapeutic ranges: Venous thromboembolism prophylaxis or treatment: 2.0-3.0 CARDIOLOGY Standard range: 2.0-3.0 High-intensity range: 2.5-3.5 Refer to indication-specific guidelines for appropriate target ranges for prosthetic heart valve replacement. Current interpretive data was last revised on 2019. Blood 11/02/2024 1:54 PM CORPORATE VP ADVERTISING & ONLINE 11/02/2024 1:56 PM CORPORATE VP ADVERTISING & ONLINE Norm Resendiz MD LAB BLOOD ORDERABLES Final R esult Performing Organization Address City/[facility] Co de Phone Number JOHAN [facility] ([place]) 1 [facility] [place] [address] * Magnesium (11/02/2024 1:54 PM CORPORATE VP ADVERTISING & ONLINE) Pathologist [facility] [place] Magnesium 1.8 1.4 - 2.5 mg/dL Blood 11/02/2024 1:54 PM CORPORATE VP ADVERTISING & ONLINE 11/02/2024 1:56 PM CORPORATE VP ADVERTISING & ONLINE Norm Resendiz MD LAB BLOOD ORDERABLES Final R [facility] Performing Organization Address [facility] de Phone Number JOHAN [facility] ([place]) 1 [facility] [place] [address] * (ABNORMAL) Blood gas, venous (11/02/2024 1:54 PM CORPORATE VP ADVERTISING & ONLINE) pH, Venous 7.25(L) 7.32 - 7.43 PCO2, Venous 70(C) 40 - 50 mmHg [facility] (FAN) Comment:Critical result call ed to and read back by SUKHWINDER NEWBERRY (ER) on 11/02/2024 14:02:43 CORPORATE VP ADVERTISING & ONLINE to BLAYNE HALEY. PO2, Venous 58 mmHg CERNER A ([place]) Comment: Interpretive Data No reference range established. Current interpretive data was last revised 2017. HCO3 Venous, Calculated 30 20 - 30 mmol/L [facility] ([place]AN) BE, venous 2 mmol/L [facility] (FAN) Comment: Interpretive Data No Reference Range Established Current Interpretive Data was last revised on 2017. Blood 11/02/2024 1:54 PM CORPORATE VP ADVERTISING & ONLINE 11/02/2024 1:56 PM CORPORATE VP ADVERTISING & ONLINE Norm Resendiz MD LAB BLOOD ORDERABLES Final R esult Performing Organization Address City/[facility] Co de Phone Number JOHAN ACOSTA (FAN) 1 [facility] [place] [address] * Ammonia (11/02/2024 1:54 PM CORPORATE VP ADVERTISING & ONLINE) Ammonia 15 <=50 mcmol/L Blood 11/02/2024 1:54 PM CORPORATE VP ADVERTISING & ONLINE 11/02/2024 1:56 PM CORPORATE VP ADVERTISING & ONLINE Norm Resendiz MD LAB BLOOD ORDERABLES Final R esult Performing Organization Address [facility] Co de Phone Number JOHAN ACOSTA (FAN) 1 [facility] [place] [address] * (ABNORMAL) Comprehensive metabolic panel (11/02/2024 1:54 PM CORPORATE VP ADVERTISING & ONLINE) Sodium 132(L) 135 - 145 mmol/L Potassium, [...] (FAN) Glucose 131 70 - 199 mg/dL [facility] (FAN) Comment: Interpretive Data Fasting glucose [...] Bilirubin, total 0.4 0.1 - 1.2 mg/dL [facility] (FAN) Protein, pl 6.3(L) 6.5 - 8.5 g/dL [facility] (FAN) Albumin 3.8 3.5 - 5.0 g/dL [facility] (FAN) Alk phos 81 40 - 130 Units/L [facility] (FAN) ALT 15 7 - 45 Units/L [facility] (FAN) AST 15 10 - 45 Units/L [facility] (FAN) Comment:Slightly Hemolyzed S pecimen Blood 11/02/2024 1:54 PM CORPORATE VP ADVERTISING & ONLINE 11/02/2024 1:56 PM CORPORATE VP ADVERTISING & ONLINE Norm Resendiz MD LAB BLOOD ORDERABLES Final R esult JOHAN ACOSTA (FAN) 1 [facility] [place] [address] * ECG 12 lead (11/02/2024 1:44 PM CORPORATE VP ADVERTISING & ONLINE) 11/02/2024 1:44 PM CORPORATE VP ADVERTISING & ONLINE Narrative [facility] - 11/02/2024 3:27 PM CORPORATE VP ADVERTISING & ONLINE Vent Rate: 65 bpm RR Interval: 918 msec OR Interval: 198 msec QRS Duration: 106 msec QT Interval: 430 msec QTC Interval: 441 msec P-R-T [place]: 72 - 64 - 75 degrees IMPRESSION: SINUS RHYTHM LOW QRS VOLTAGE IN PRECORDIAL LEADS [QRS DEFLECTION < 1.0 mV IN CHEST LEADS] BORDERLINE ECG NO CHANGE FROM PREVIOUS TRACING NOTED Electronically Signed By: Jeremy Calix MD Norm Resendiz MD ECG ORDERABLES Final Result [facility] MD [employer] [facility] * POCT glucose (11/02/2024 1:20 PM CORPORATE VP ADVERTISING & ONLINE) Glucose, POC 127 70 - 199 mg/dL Blood 11/02/2024 1:20 PM CORPORATE VP ADVERTISING & ONLINE 11/02/2024 1:20 PM CORPORATE VP ADVERTISING & ONLINE us Notinfile Unknown LAB POCT ORDERABLES - DEVICE F inal Result JOHAN ACOSTA ([place]) 1 [facility] [place] [address] * POCT glucose (10/27/2024 11:58 AM CORPORATE VP ADVERTISING & ONLINE) Glucose, POC 161 70 - 199 mg/dL Blood 10/27/2024 11:5 8 AM CORPORATE VP ADVERTISING & ONLINE 10/27/2024 11:58 AM CORPORATE VP ADVERTISING & ONLINE Emilia Damian MD LAB POCT ORDERABLES - DEV ICE Final Result JOHAN ACOSTA ([place]) 1 [facility] [place] [address] * POCT glucose (10/27/2024 8:11 AM CORPORATE VP ADVERTISING & ONLINE) [facility] Glucose, POC 164 70 - 199 mg/dL Blood 10/27/2024 8:11 AM CORPORATE VP ADVERTISING & ONLINE 10/27/2024 8:11 AM CORPORATE VP ADVERTISING & ONLINE Emilia Damian MD LAB POCT ORDERABLES - DEV ICE Final Result JOHAN ACOSTA ([place]) 1 [facility] [place] [address] * (ABNORMAL) eGFR (10/27/2024 3:25 AM CORPORATE VP ADVERTISING & ONLINE) [facility] Signature eGFR 10(L) >=60 mL/min/1. 73 m2 Comment: [...] last reviewed 2021. Blood 10/27/2024 3:25 AM CORPORATE VP ADVERTISING & ONLINE 10/27/2024 3:35 AM CORPORATE VP ADVERTISING & ONLINE us Fuentes Persaud MD LAB BLOOD ORDERABLES Final Result [facility] (FAN) 1 [facility] [place] [address] * (ABNORMAL) CBC without differential (10/27/2024 3:25 AM CORPORATE VP ADVERTISING & ONLINE) WBC 6.8 3.8 - 9.9 K/cumm Hgb [...] [facility] (FAN) Blood 10/27/2024 3:25 AM CORPORATE VP ADVERTISING & ONLINE 10/27/2024 3:38 AM CORPORATE VP ADVERTISING & ONLINE Fuentes Persaud MD LAB BLOOD ORDERABLES Final Result JOHAN ACOSTA (FAN) 1 [facility] [place] [address] * (ABNORMAL) Basic metabolic panel (10/27/2024 3:25 AM CORPORATE VP ADVERTISING & ONLINE) Sodium 134(L) 135 - 145 mmol/L Potassium, [...] - 10.3 mg/dL [facility] (FAN) Blood 10/27/2024 3:25 AM CORPORATE VP ADVERTISING & ONLINE 10/27/2024 3:35 AM CORPORATE VP ADVERTISING & ONLINE us Fuentes Persaud MD LAB BLOOD ORDERABLES Final Result JOHAN ACOSTA (FAN) 1 [place] [address] * (ABNORMAL) POCT glucose (10/27/2024 3:24 AM CORPORATE VP ADVERTISING & ONLINE) Glucose, POC 264(H) 70 - 199 mg/dL Blood 10/27/2024 3:24 AM CORPORATE VP ADVERTISING & ONLINE 10/27/2024 3:24 AM CORPORATE VP ADVERTISING & ONLINE Emilia Damian MD LAB POCT ORDERABLES - DEV ICE Final Result [facility] ([place]) 1 [place] [address] * (ABNORMAL) POCT glucose (10/26/2024 9:24 PM CORPORATE VP ADVERTISING & ONLINE) Glucose, POC 324(H) 70 - 199 mg/dL Blood 10/26/2024 9:24 PM CORPORATE VP ADVERTISING & ONLINE 10/26/2024 9:24 PM CORPORATE VP ADVERTISING & ONLINE us Emilia Damian MD LAB POCT ORDERABLES - DEV ICE Final Result [facility] ([place]) 1 [place] [address] * (ABNORMAL) POCT glucose (10/26/2024 5:07 PM CORPORATE VP ADVERTISING & ONLINE) Glucose, POC 354(H) 70 - 199 mg/dL Blood 10/26/2024 5:07 PM CORPORATE VP ADVERTISING & ONLINE 10/26/2024 5:07 PM CORPORATE VP ADVERTISING & ONLINE Emilia Damian MD LAB POCT ORDERABLES - DEV ICE Final Result [facility] ([place]) 1 [place] [address] * (ABNORMAL) POCT glucose (10/26/2024 11:45 AM CORPORATE VP ADVERTISING & ONLINE) Glucose, POC 239(H) 70 - 199 mg/dL Blood 10/26/2024 11:4 5 AM CORPORATE VP ADVERTISING & ONLINE 10/26/2024 11:45 AM CORPORATE VP ADVERTISING & ONLINE us Emilia Damian MD LAB POCT ORDERABLES - DEV ICE Final Result Performing Organization Address [facility]/ZIP Co de Phone Number [facility] ([place]) [address] [place] [address] [place] [address] * Transfuse RBC (10/26/2024 10:44 AM CORPORATE VP ADVERTISING & ONLINE) Blood us Rajeev Nassar MD BLOOD TRANSFUSION ORDERABLES Fi nal Result Performing Organization Address [facility] Co de Phone Number JOHAN ACOSTA ([place]) 1 [facility] [place] [address] * (ABNORMAL) Hemoglobin and hematocrit (10/26/2024 8:47 AM CORPORATE VP ADVERTISING & ONLINE) Hgb 8.0(L) 11.9 - 15.5 g/dL Hct 25.2(L) 35.6 - 45.5 % [facility] ([place]) Blood 10/26/2024 8:47 AM CORPORATE VP ADVERTISING & ONLINE 10/26/2024 8:49 AM CORPORATE VP ADVERTISING & ONLINE us Emilia Damian MD LAB BLOOD ORDERABLES Adrianna l Result Performing Organization Address City/[facility]/ZIP Co de Phone Number [facility] ([place]) [address] [place] [address] [employer] [address] * (ABNORMAL) POCT glucose (10/26/2024 7:59 AM CORPORATE VP ADVERTISING & ONLINE) Glucose, POC 237(H) 70 - 199 mg/dL Blood 10/26/2024 7:59 AM CORPORATE VP ADVERTISING & ONLINE 10/26/2024 7:59 AM CORPORATE VP ADVERTISING & ONLINE Emilia Damian MD LAB POCT ORDERABLES - DEV ICE Final Result [facility]AN [facility] (FAN) 1 [facility] [place] [address] * Prepare RBC (10/26/2024 5:06 AM CORPORATE VP ADVERTISING & ONLINE) Unit Number [id number] Product code [id number] [facility] (FAN) Blood Expiration Date [facility] ([place]AN) Product Blood Type (for scanning) 5100 [facility] (FAN) Product Blood Type OPOS [facility] ([place]AN) Dispense Status DISPENSED [facility] (FAN) Fuentes Persaud MD BLOOD BANK PRODUCT ORDERAB LES Final Result Performing Organization Address [facility] Co de Phone Number JOHAN [facility] (FAN) 1 [facility] [place] [address] * Prepare RBC: 1 Units (10/26/2024 5:06 AM CORPORATE VP ADVERTISING & ONLINE) Units requested 1 Units requested Ready [facility] (FAN) Blood 10/26/2024 5:06 AM CORPORATE VP ADVERTISING & ONLINE 10/26/2024 5:07 AM CORPORATE VP ADVERTISING & ONLINE Narrative [facility] (FAN) - 10/26/2024 5:08 AM CORPORATE VP ADVERTISING & ONLINE Are special requirements needed? (All products are leukoreduced and CMV- safe)->No Rajeev Nassar MD BLOOD BANK PRODUCT ORDERABLES F inal Result Performing Organization Address City/[facility]/ZIP Co de Phone Number JOHAN [facility] (FAN) 1 [facility] [place] [address] * (ABNORMAL) eGFR (10/26/2024 2:46 AM CORPORATE VP ADVERTISING & ONLINE) eGFR 12(L) >=60 mL/min/1. 73 m2 Comment: [...] last reviewed 2021. Blood 10/26/2024 2:46 AM CORPORATE VP ADVERTISING & ONLINE 10/26/2024 3:10 AM CORPORATE VP ADVERTISING & ONLINE Fuentes Persaud MD LAB BLOOD ORDERABLES Final Result [facility] (FAN) 1 [facility] [place] [address] * (ABNORMAL) CBC without differential (10/26/2024 2:46 AM CORPORATE VP ADVERTISING & ONLINE) WBC 5.0 3.8 - 9.9 K/cumm Hgb 6.9(L) 11.9 - 15.5 g/dL [facility] (FAN) Hct 21.8(L) 35.6 - 45.5 % [facility] ([place]AN) Plt 109(L) 150 - 400 K/cumm [facility] (FNA) MPV 10.1 9.1 - 12.3 fL [facility] ([place]) RBC 2.31(L) 3.90 - 5.20 M/cumm [facility] ([place]AN) MCV 94.4 81.3 - 96.4 fL [facility] ([place]AN) MCH 29.9 27.1 - 33.3 pg [facility] ([place]) MCHC 31.7(L) 32.3 - 35.7 g/dL [facility] ([place]AN) RDW CV 15.0(H) 11.1 - 14.9 % [facility] ([place]) RDW SD 51.6(H) 35.7 - 48.1 fL [facility] ([place]) NRBC abs 0.02(H) 0.00 - 0.01 K/cumm [facility] (FAN) Blood 10/26/2024 2:4 6 AM CORPORATE VP ADVERTISING & ONLINE 10/26/2024 3:09 AM CORPORATE VP ADVERTISING & ONLINE Fuentes Persaud MD LAB BLOOD ORDERABLES Final Result [facility] (FAN) 1 [facility] [place] [address] * (ABNORMAL) Basic metabolic panel (10/26/2024 2:46 AM CORPORATE VP ADVERTISING & ONLINE) Sodium 135 135 - 145 mmol/L Potassium, pl 4.3 3.3 - 4.9 mmol/L [facility] (FAN) Chloride 95(L) 97 - 110 mmol/L [facility] (FAN) CO2 27 22 - 32 mmol/L [facility] (FAN) Anion gap 13 2 - 15 mmol/L [facility] ([place]AN) BUN 44(H) 6 - 25 mg/dL [facility] (FAN) Creatinine 3.91(H) 0.60 - 1.10 mg/dL [facility] (FAN) Glucose 287(H) 70 - 199 mg/dL [facility] (FAN) Comment: Interpretive Data Fasting glucose [...] 2022. Calcium 8.2(L) 8.5 - 10.3 mg/dL [facility] (FAN) Blood 10/26/2024 2:46 AM CORPORATE VP ADVERTISING & ONLINE 10/26/2024 3:10 AM CORPORATE VP ADVERTISING & ONLINE us Fuentes Persaud MD LAB BLOOD ORDERABLES Final Result Performing Organization Address City/[facility] Co de Phone Number JOHAN ACOSTA ([place]) 1 [facility] [place] [address] * (ABNORMAL) POCT glucose (10/26/2024 2:07 AM CORPORATE VP ADVERTISING & ONLINE) Glucose, POC 319(H) 70 - 199 mg/dL Comment:Glu2: RN/MD Notified Blood 10/26/2024 2:07 AM CORPORATE VP ADVERTISING & ONLINE 10/26/2024 2:07 AM CORPORATE VP ADVERTISING & ONLINE us Emilia Damian MD LAB POCT ORDERABLES - DEV ICE Final Result Performing Organization Address [facility] Co de Phone Number JOHAN ACOSTA ([place]) 1 [facility] [place] [address] * (ABNORMAL) POCT glucose (10/25/2024 8:30 PM CORPORATE VP ADVERTISING & ONLINE) Glucose, POC 351(H) 70 - 199 mg/dL Blood 10/25/2024 8:30 PM CORPORATE VP ADVERTISING & ONLINE 10/25/2024 8:30 PM CORPORATE VP ADVERTISING & ONLINE us Emilia Damian MD LAB POCT ORDERABLES - DEV ICE Final Result Performing Organization Address City/[facility] Co de Phone Number JOHAN ACOSTA ([place]) 1 [facility] [place] [address] * (ABNORMAL) POCT glucose (10/25/2024 5:13 PM CORPORATE VP ADVERTISING & ONLINE) Glucose, POC 344(H) 70 - 199 mg/dL Blood 10/25/2024 5:13 PM CORPORATE VP ADVERTISING & ONLINE 10/25/2024 5:13 PM CORPORATE VP ADVERTISING & ONLINE Emilia Damian MD LAB POCT ORDERABLES - DEV ICE Final Result Performing Organization Address [facility]/ZIP Co de Phone Number JOHAN ACOSTA ([place]) 1 [facility] [place] [address] * (ABNORMAL) POCT glucose (10/25/2024 12:08 PM CORPORATE VP ADVERTISING & ONLINE) Glucose, POC 256(H) 70 - 199 mg/dL Blood 10/25/2024 12:0 8 PM CORPORATE VP ADVERTISING & ONLINE 10/25/2024 12:08 PM CORPORATE VP ADVERTISING & ONLINE Emilia Damian MD LAB POCT ORDERABLES - DEV ICE Final Result Performing Organization Address [facility] Co de Phone Number JOHAN ACOSTA ([place]) 1 [facility] [place] [address] * (ABNORMAL) Hemoglobin and hematocrit (10/25/2024 9:11 AM CORPORATE VP ADVERTISING & ONLINE) Hgb 7.0(L) 11.9 - 15.5 g/dL Hct 22.1(L) 35.6 - 45.5 % JOHAN ACOSTA ([place]) Blood 10/25/2024 9:11 AM CORPORATE VP ADVERTISING & ONLINE 10/25/2024 9:16 AM CORPORATE VP ADVERTISING & ONLINE Emilia Damian MD LAB BLOOD ORDERABLES Adrianna l Result Performing Organization Address [facility] Co de Phone Number JOHAN ACOSTA ([place]) 1 [facility] [place] [address] * ABO/Rh (10/25/2024 6:35 AM CORPORATE VP ADVERTISING & ONLINE) ABO/Rh O Positive Blood 10/25/2024 6:35 AM CORPORATE VP ADVERTISING & ONLINE 10/25/2024 7:11 AM CORPORATE VP ADVERTISING & ONLINE Narrative JOHAN KARLA ([place]) - 10/25/2024 7:55 AM CORPORATE VP ADVERTISING & ONLINE Has the patient had Daratumumab or Isatuximab in the past 6 months?->Unknown us Rajeev Nassar MD LAB BLOOD BANK TEST ORDERABLES Final Result JOHAN ACOSTA ([place]) 1 [place] [address] * Crossmatch (10/25/2024 6:35 AM CORPORATE VP ADVERTISING & ONLINE) Pathologist [facility] [place] Crossmatch Compatible CERNER A ([place]) Unit number for crossmatch [id number] [facility] ([place]) Crossmatch Compatible CERNER A ([place]) Unit number for crossmatch [id number] [facility] ([place]) Blood 10/25/2024 6:35 AM CORPORATE VP ADVERTISING & ONLINE 10/26/2024 4:29 AM CORPORATE VP ADVERTISING & ONLINE Emilia Damian MD LAB BLOOD BANK TEST ORDER SARIKA Edited Result - Final Performing Organization Address [facility] Co de Phone Number JOHAN ACOSTA ([place]) 1 [facility] [place] [address] * Antibody screen (10/25/2024 6:35 AM CORPORATE VP ADVERTISING & ONLINE) [facility] Karon, indirect, Gel Interpretation Negative ABSC Blood 10/25/2024 6:35 AM CORPORATE VP ADVERTISING & ONLINE 10/25/2024 7:11 AM CORPORATE VP ADVERTISING & ONLINE Narrative JOHAN ACOSTA ([place]) - 10/25/2024 7:55 AM CORPORATE VP ADVERTISING & ONLINE Has the patient had Daratumumab or Isatuximab in the past 6 months?->Unknown Rajeev Nassra MD LAB BLOOD BANK TEST ORDERABLES Final Result JOHAN ACOSTA ([place]) 1 [place] [address] * (ABNORMAL) eGFR (10/25/2024 3:16 AM CORPORATE VP ADVERTISING & ONLINE) Pathologist [facility] eGFR 8(L) >=60 mL/min/1. 73 m2 Comment: [...] last reviewed 2021. Blood 10/25/2024 3:16 AM CORPORATE VP ADVERTISING & ONLINE 10/25/2024 4:31 AM CORPORATE VP ADVERTISING & ONLINE Fuentes Persaud MD LAB BLOOD ORDERABLES Final Result [facility] ([place]) 1 [facility] Department of Laboratories [place] [id number] * (ABNORMAL) Procalcitonin (10/25/2024 3:16 AM CORPORATE VP ADVERTISING & ONLINE) Pathologist [facility] Procalcitonin 0.55(H) <=0.25 ng/mL Comment:Testing performed by : [facility], [facility], [place]., [address] Blood 10/25/2024 3:16 AM CORPORATE VP ADVERTISING & ONLINE 10/25/2024 5:33 PM CORPORATE VP ADVERTISING & ONLINE Emilia Damian MD LAB BLOOD ORDERABLES Adrianna l Result [facility] ([place]) 1 [facility] Department [place] [address] * (ABNORMAL) CBC without differential (10/25/2024 3:16 AM CORPORATE VP ADVERTISING & ONLINE) WBC 4.1 3.8 - 9.9 K/cumm Hgb [...] [facility] ([place]) Blood 10/25/2024 3:16 AM CORPORATE VP ADVERTISING & ONLINE 10/25/2024 4:36 AM CORPORATE VP ADVERTISING & ONLINE Fuentes Persaud MD LAB BLOOD ORDERABLES Final Result JOHAN ACOSTA ([place]) 1 [facility] [place] [address] * Vancomycin level random (10/25/2024 3:16 AM CORPORATE VP ADVERTISING & ONLINE) Vancomycin random 21.6 mcg/mL Comment: Random Vancomycin levels may vary due to the amount and time of last dose Current interpretive data was last revised on 2014 Blood 10/25/2024 3:16 AM CORPORATE VP ADVERTISING & ONLINE 10/25/2024 4:31 AM CORPORATE VP ADVERTISING & ONLINE Lesley Cruz MD LAB BLOOD ORDERABLES Final Result JOHAN ACOSTA ([place]) 1 [facility] [place] [address] * (ABNORMAL) Basic metabolic panel (10/25/2024 3:16 AM CORPORATE VP ADVERTISING & ONLINE) [facility] Sodium 134(L) 135 - 145 mmol/L Potassium, pl 4.5 3.3 - 4.9 mmol/L [facility] ([place]) Chloride 93(L) 97 - 110 mmol/L [facility] ([place]) CO2 26 22 - 32 mmol/L [facility] ([place]) Anion gap 15 2 - 15 mmol/L [facility] ([place]) BUN 45(H) 6 - 25 mg/dL [facility] ([place]) Creatinine 5.38(H) 0.60 - 1.10 mg/dL [facility] ([place]) Glucose 369(H) 70 - 199 mg/dL [facility] ([place]) Comment: Interpretive Data Fasting glucose >/= 126 [...] 2022. Calcium 8.4(L) 8.5 - 10.3 mg/dL [facility] ([place]) Blood 10/25/2024 3:16 AM CORPORATE VP ADVERTISING & ONLINE 10/25/2024 4:31 AM CORPORATE VP ADVERTISING & ONLINE Fuentes Persaud MD LAB BLOOD ORDERABLES Final Result JOHAN PaganBO[place]) 1 [facility] [place] [address] * (ABNORMAL) POCT glucose (10/25/2024 2:18 AM CORPORATE VP ADVERTISING & ONLINE) [facility] Glucose, POC 364(H) 70 - 199 mg/dL Comment:Glu2: RN/ Notified Blood 10/25/2024 2:18 AM CORPORATE VP ADVERTISING & ONLINE 10/25/2024 2:18 AM CORPORATE VP ADVERTISING & ONLINE Emilia Damian MD LAB POCT ORDERABLES - DEV ICE Final Result Performing Organization Address City/[facility]/ZIP Co de Phone Number JOHAN ACOSTA ([place]) 1 [facility] [place] [employer] [place] [place] [address] * (ABNORMAL) POCT glucose (10/24/2024 11:42 PM CORPORATE VP ADVERTISING & ONLINE) Glucose, POC 399(H) 70 - 199 mg/dL Blood 10/24/2024 11:4 2 PM CORPORATE VP ADVERTISING & ONLINE 10/24/2024 11:42 PM CORPORATE VP ADVERTISING & ONLINE Emilia Damian MD LAB POCT ORDERABLES - DEV ICE Final Result Performing Organization Address [facility] de Phone Number JOHAN ACOSTA ([place]) 1 [facility] [place] [address] * (ABNORMAL) POCT glucose (10/24/2024 8:31 PM CORPORATE VP ADVERTISING & ONLINE) Glucose, POC 457(C) 70 - 199 mg/dL Comment:Glu2: PRISCILLA Notified Blood 10/24/2024 8:31 PM CORPORATE VP ADVERTISING & ONLINE 10/24/2024 8:31 PM CORPORATE VP ADVERTISING & ONLINE Emilia Damian MD LAB POCT ORDERABLES - DEV ICE Final Result Performing Organization Address City/[facility] Co de Phone Number JOHAN ACOSTA ([place]) 1 [facility] [place] [address] * (ABNORMAL) POCT glucose (10/24/2024 8:30 PM CORPORATE VP ADVERTISING & ONLINE) Glucose, POC 450(C) 70 - 199 mg/dL Blood 10/24/2024 8:30 PM CORPORATE VP ADVERTISING & ONLINE 10/24/2024 8:30 PM CORPORATE VP ADVERTISING & ONLINE Emilia Damian MD LAB POCT ORDERABLES - DEV ICE Final Result JOHAN ACOSTA ([place]) 1 [facility] [place] [address] * (ABNORMAL) POCT glucose (10/24/2024 4:55 PM CORPORATE VP ADVERTISING & ONLINE) Glucose, POC 462(C) 70 - 199 mg/dL Comment:Glu2: RN/MD Notified Blood 10/24/2024 4:55 PM CORPORATE VP ADVERTISING & ONLINE 10/24/2024 4:55 PM CORPORATE VP ADVERTISING & ONLINE Emilia Damian MD LAB POCT ORDERABLES - DEV ICE Final Result Performing Organization Address City/[facility] Co de Phone Number JOHAN ACOSTA ([place]) 1 [facility] [place] [address] * CT Head WO Contrast (10/24/2024 3:12 PM CORPORATE VP ADVERTISING & ONLINE) Anatomical Region Laterality Modality Head and Neck N/A Computed Tomogra phy 10/24/2024 4:49 PM CORPORATE VP ADVERTISING & ONLINE Narrative 10/24/2024 4:53 PM CORPORATE VP ADVERTISING & ONLINE EXAM DESCRIPTION: CT HEAD WO CONTRAST REASON [...] Barber Poe M.D. AG: LEE Report ID: [id number] Reading Location: [id number] Procedure Note Barber Poe MD - 10/24/2024 [...] Barber Poe M.D. AG: LEE Report ID: [id number] Reading Location: [id number] Emilia Damian MD IMG CT PROCEDURES Final R esult * (ABNORMAL) POCT glucose (10/24/2024 11:48 AM CORPORATE VP ADVERTISING & ONLINE) Glucose, POC 400(H) 70 - 199 mg/dL Blood 10/24/2024 11:4 8 AM CORPORATE VP ADVERTISING & ONLINE 10/24/2024 11:48 AM CORPORATE VP ADVERTISING & ONLINE Emilia Damian MD LAB POCT ORDERABLES - DEV ICE Final Result JOHAN ACOSTA ([place]) 1 [facility] [place] [address] * (ABNORMAL) Iron profile w/ IBC (10/24/2024 8:10 AM CORPORATE VP ADVERTISING & ONLINE) Pathologist [facility] [place] Iron 115 35 - 145 mcg/dL TIBC 177(L) 250 - 400 mcg/dL [facility] ([place]) Transferrin saturation 65(H) 20 - 50 % JOHAN [facility] ([place]) Blood 10/24/2024 8:10 AM CORPORATE VP ADVERTISING & ONLINE 10/24/2024 8:25 AM CORPORATE VP ADVERTISING & ONLINE Lesley Cruz MD LAB BLOOD ORDERABLES Final Result JOHAN ACOSTA ([place]) 1 [facility] [place] [address] * (ABNORMAL) Folate (10/24/2024 8:10 AM CORPORATE VP ADVERTISING & ONLINE) [facility] Folic acid 4.0(L) >=5.0 ng/mL Comment:Slightly Hemolyzed S pecimen. Results may be affected. Blood 10/24/2024 8:10 AM CORPORATE VP ADVERTISING & ONLINE 10/24/2024 8:25 AM CORPORATE VP ADVERTISING & ONLINE Lesley Cruz MD LAB BLOOD ORDERABLES Final Result JOHAN ACOSTA ([place]) 1 [facility] [place] [address] * (ABNORMAL) Ferritin (10/24/2024 8:10 AM CORPORATE VP ADVERTISING & ONLINE) Pathologist [facility] [place] Ferritin 1,216(H) 15 - 150 ng/mL Blood 10/24/2024 8:10 AM CORPORATE VP ADVERTISING & ONLINE 10/24/2024 8:25 AM CORPORATE VP ADVERTISING & ONLINE Lesley Cruz MD LAB BLOOD ORDERABLES Final Result JOHAN ACOSTA ([place]) 1 [facility] [place] [address] * Vitamin B12 (10/24/2024 8:10 AM CORPORATE VP ADVERTISING & ONLINE) [facility] Vitamin B12 325 230 - 1,250 pg/mL Blood 10/24/2024 8:10 AM CORPORATE VP ADVERTISING & ONLINE 10/24/2024 8:25 AM CORPORATE VP ADVERTISING & ONLINE us Lesley Cruz MD LAB BLOOD ORDERABLES Final Result JOHAN ACOSTA ([place]) 1 [facility] [place] [address] * (ABNORMAL) POCT glucose (10/24/2024 7:53 AM CORPORATE VP ADVERTISING & ONLINE) [facility] Glucose, POC 318(H) 70 - 199 mg/dL Blood 10/24/2024 7:53 AM CORPORATE VP ADVERTISING & ONLINE 10/24/2024 7:53 AM CORPORATE VP ADVERTISING & ONLINE us Emilia Damian MD LAB POCT ORDERABLES - DEV ICE Final Result JOHAN [facility] ([place]) 1 [facility] [place] [address] * (ABNORMAL) eGFR (10/24/2024 3:36 AM CORPORATE VP ADVERTISING & ONLINE) [facility] eGFR 11(L) >=60 mL/min/1. 73 m2 Comment: [...] last reviewed 2021. Blood 10/24/2024 3:36 AM CORPORATE VP ADVERTISING & ONLINE 10/24/2024 3:42 AM CORPORATE VP ADVERTISING & ONLINE Yariel Alfredo MD LAB BLOOD ORDERABLES Final Resu lt JOHAN ACOSTA ([place]) 1 [facility] [place] [address] * Blood culture Blood (10/24/2024 3:36 AM CORPORATE VP ADVERTISING & ONLINE) Report Final Report: No growth Comment:Testing performed by : [facility], 1 [place]., [address] Blood 10/24/2024 3:36 AM CORPORATE VP ADVERTISING & ONLINE 10/24/2024 5:45 AM CORPORATE VP ADVERTISING & ONLINE Narrative JOHAN ACOSTA ([place]) - 10/28/2024 7:00 AM CORPORATE VP ADVERTISING & ONLINE From a different site than #1. Collection->Peripheral [...] performance characteristics have been verified by the [facility] Microbiology Laboratory. For questions about this culture, contact the Microbiology Laboratory at [phone]. Interpretive data was last revised on 24. us Fuentes Persaud MD LAB MICROBIOLOGY - GENERAL ORDERABLES Final Result JOHAN [facility] ([place]) 1 [facility] [place] [address] * (ABNORMAL) CBC without differential (10/24/2024 3:36 AM CORPORATE VP ADVERTISING & ONLINE) Pathologist [facility] WBC 4.8 3.8 - 9.9 K/cumm Hgb [...] [facility] ([place]) Blood 10/24/2024 3:36 AM CORPORATE VP ADVERTISING & ONLINE 10/24/2024 3:43 AM CORPORATE VP ADVERTISING & ONLINE us Fuentes Persaud MD LAB BLOOD ORDERABLES Final Result JOHAN ACOSTA ([place]) 1 [facility] [place] [address] * Hemoglobin A1c (10/24/2024 3:36 AM CORPORATE VP ADVERTISING & ONLINE) Pathologist [facility] Hgb A1C 5.4 4.0 - 5.6 % Estimated Average Glucose 108 mg/dL [facility] (FAN) Comment: The ADA recommends reporting an estimated Average Glucose (eAG) with all Hemoglobin A1c results using the equation derived from a study of 507 normal and diabetic adults. Minority populations were underrepresented and children were not included. (Diabetes Care 31:0746-7556, 2008). The eAG is not equivalent to a fasting glucose. Blood 10/24/2024 3:36 AM CORPORATE VP ADVERTISING & ONLINE 10/24/2024 2:35 PM CORPORATE VP ADVERTISING & ONLINE Emilia Damian MD LAB BLOOD ORDERABLES Adrianna mckeon Result [facility] ([place]) 1 [facility] [place] [address] * (ABNORMAL) Basic metabolic panel (10/24/2024 3:36 AM CORPORATE VP ADVERTISING & ONLINE) [facility] Sodium 135 135 - 145 mmol/L Potassium, pl 4.0 3.3 - 4.9 mmol/L [facility] ([place]) Chloride 95(L) 97 - 110 mmol/L [facility] ([place]) CO2 26 22 - 32 mmol/L [facility] ([place]) Anion gap 14 2 - 15 mmol/L [facility] ([place]) BUN 28(H) 6 - 25 mg/dL [facility] ([place]) Creatinine 4.26(H) 0.60 - 1.10 mg/dL [facility] ([place]) Glucose 314(H) 70 - 199 mg/dL [facility] ([place]) Comment: Interpretive Data Fasting glucose [...] 2022. Calcium 8.7 8.5 - 10.3 mg/dL [facility]AN [facility] ([place]) Blood 10/24/2024 3:36 AM CORPORATE VP ADVERTISING & ONLINE 10/24/2024 3:42 AM CORPORATE VP ADVERTISING & ONLINE Fuentes Persaud MD LAB BLOOD ORDERABLES Final Result JOHAN ACOSTA ([place]) 1 [facility] [place] [address] * (ABNORMAL) POCT glucose (10/24/2024 3:11 AM CORPORATE VP ADVERTISING & ONLINE) Glucose, POC 324(H) 70 - 199 mg/dL Blood 10/24/2024 3:11 AM CORPORATE VP ADVERTISING & ONLINE 10/24/2024 3:11 AM CORPORATE VP ADVERTISING & ONLINE Luis Manuel Hodges Jr., MD LAB POCT ORDERABLES - DEVICE Final Result Performing Organization Address City/[facility]/ZIP Co de Phone Number JOHAN ACOSTA ([place]) 1 [facility] [place] [address] * (ABNORMAL) POCT glucose (10/23/2024 9:27 PM CORPORATE VP ADVERTISING & ONLINE) Glucose, POC 305(H) 70 - 199 mg/dL Blood 10/23/2024 9:27 PM CORPORATE VP ADVERTISING & ONLINE 10/23/2024 9:27 PM CORPORATE VP ADVERTISING & ONLINE Luis Manuel Hodges Jr., MD LAB POCT ORDERABLES - DEVICE Final Result Performing Organization Address City/[facility]/ZIP Co de Phone Number JOHAN ACOSTA ([place]) 1 [place] [address] * Blood culture Blood (10/23/2024 4:51 PM CORPORATE VP ADVERTISING & ONLINE) Report Final Report: No growth Comment:Testing performed by : [facility], 1 [facility], [place]., [address] Blood 10/23/2024 4:51 PM CORPORATE VP ADVERTISING & ONLINE 10/23/2024 7:49 PM CORPORATE VP ADVERTISING & ONLINE Narrative JOHAN ACOSTA ([place]) - 10/28/2024 7:00 AM CORPORATE VP ADVERTISING & ONLINE Collection->Peripheral Received only aerobic blood culture bottle [...] performance characteristics have been verified by the [facility] Microbiology Laboratory. For questions about this culture, contact the Microbiology Laboratory at [phone]. Interpretive data was last revised on 24. Fuentes Persaud MD LAB MICROBIOLOGY - GENERAL ORDERABLES Final Result JOHAN ACOSTA ([place]) 1 [facility] [place] [address] * (ABNORMAL) POCT glucose (10/23/2024 4:02 PM CORPORATE VP ADVERTISING & ONLINE) [facility] Signature Glucose, POC 220(H) 70 - 199 mg/dL Blood 10/23/2024 4:02 PM CORPORATE VP ADVERTISING & ONLINE 10/23/2024 4:02 PM CORPORATE VP ADVERTISING & ONLINE Luis Manuel Hodges Jr., MD LAB POCT ORDERABLES - DEVICE Final Result Performing Organization Address [facility]/ZIP Co de Phone Number JOHAN ACOSTA ([place]) 1 [facility] [place] [address] * POCT glucose (10/23/2024 12:10 PM CORPORATE VP ADVERTISING & ONLINE) Glucose, POC 172 70 - 199 mg/dL Blood 10/23/2024 12:1 0 PM CORPORATE VP ADVERTISING & ONLINE 10/23/2024 12:10 PM CORPORATE VP ADVERTISING & ONLINE Luis Manuel Hodges Jr., MD LAB POCT ORDERABLES - DEVICE Final Result Performing Organization Address [facility] Co de Phone Number JOHAN ACOSTA (FAN) 1 [place] [address] * (ABNORMAL) Blood gas, arterial (10/23/2024 9:06 AM CORPORATE VP ADVERTISING & ONLINE) [facility] pH, Art 7.36 7.35 - 7.45 PCO2, [...] [facility] ([place]) Blood 10/23/2024 9:06 AM CORPORATE VP ADVERTISING & ONLINE 10/23/2024 9:08 AM CORPORATE VP ADVERTISING & ONLINE us Fuentes Persaud MD LAB BLOOD ORDERABLES Final Result Performing Organization Address [facility] Co de Phone Number JOHAN ACOSTA (FAN) 1 [facility] [place] [address] * (ABNORMAL) POCT glucose (10/23/2024 8:09 AM CORPORATE VP ADVERTISING & ONLINE) Glucose, POC 254(H) 70 - 199 mg/dL Blood 10/23/2024 8:09 AM CORPORATE VP ADVERTISING & ONLINE 10/23/2024 8:09 AM CORPORATE VP ADVERTISING & ONLINE Fuentes Persaud MD LAB POCT ORDERABLES - BRITTANY CE Final Result JOHAN ACOSTA ([place]) 1 [facility] Department [place] [address] * Blood culture Blood (10/23/2024 5:56 AM CORPORATE VP ADVERTISING & ONLINE) Report Final Report: No growth Comment:Testing performed by : [facility], [address] [place]., [address] Blood 10/23/2024 5:56 AM CORPORATE VP ADVERTISING & ONLINE 10/23/2024 10:01 AM CORPORATE VP ADVERTISING & ONLINE Narrative JOHAN ACOSTA (FAN) - 10/27/2024 12:00 PM CORPORATE VP ADVERTISING & ONLINE From a different site than #1. Collection->Peripheral [...] performance characteristics have been verified by the [facility] Microbiology Laboratory. For questions about this culture, contact the Microbiology Laboratory at [phone]. Interpretive data was last revised on 24. Yariel Alfredo MD LAB MICROBIOLOGY - GENERAL TAMRA CABRERA Final Result JOHAN ACOSTA ([place]) 1 [facility] [place] [address] * (ABNORMAL) eGFR (10/23/2024 5:38 AM CORPORATE VP ADVERTISING & ONLINE) eGFR 7(L) >=60 mL/min/1. 73 m2 Comment: [...] last reviewed 2021. Blood 10/23/2024 5:38 AM CORPORATE VP ADVERTISING & ONLINE 10/23/2024 5:47 AM CORPORATE VP ADVERTISING & ONLINE Yariel Alfredo MD LAB BLOOD ORDERABLES Final Resu lt JOHAN KARLA ([place]) 1 [facility] [place] [address] * Blood culture Blood (10/23/2024 5:38 AM CORPORATE VP ADVERTISING & ONLINE) Report Final Report: No growth Comment:Testing performed by : [facility], [address] [facility], [place]., [address] Blood 10/23/2024 5:38 AM CORPORATE VP ADVERTISING & ONLINE 10/23/2024 7:45 AM CORPORATE VP ADVERTISING & ONLINE Narrative JOHAN ACOSTA ([place]) - 10/27/2024 12:00 PM CORPORATE VP ADVERTISING & ONLINE Collection->Peripheral 1. Blood cultures are incubated for [...] performance characteristics have been verified by the [facility] Microbiology Laboratory. For questions about this culture, contact the Microbiology Laboratory at [phone]. Interpretive data was last revised on 24. Yariel Alfredo MD LAB MICROBIOLOGY - [facility] Final Result [facility] ([place]) 1 [facility] [place] [address] * (ABNORMAL) CBC without differential (10/23/2024 5:38 AM CORPORATE VP ADVERTISING & ONLINE) WBC 3.8 3.8 - 9.9 K/cumm Hgb [...] RDW CV 15.2(H) 11.1 - 14.9 % [facility] ([place]) RDW SD 52.5(H) 35.7 - 48.1 fL [facility] ([place]) NRBC abs 0.00 0.00 - 0.01 K/cumm [facility] ([place]) Blood 10/23/2024 5:38 AM CORPORATE VP ADVERTISING & ONLINE 10/23/2024 5:47 AM CORPORATE VP ADVERTISING & ONLINE Fuentes Persaud MD LAB BLOOD ORDERABLES Final Result JOHAN ACOSTA ([place]) 1 [facility] [place] [address] * (ABNORMAL) Phosphorus (10/23/2024 5:38 AM CORPORATE VP ADVERTISING & ONLINE) Phosphorus, pl 5.1(H) 2.3 - 4.5 mg/dL Blood 10/23/2024 5:38 AM CORPORATE VP ADVERTISING & ONLINE 10/23/2024 5:47 AM CORPORATE VP ADVERTISING & ONLINE Yariel Alfredo MD LAB BLOOD ORDERABLES Final Resu lt Performing Organization Address City/[facility]/ZIP Co de Phone Number JOHAN ACOSTA ([place]) 1 [facility] [place] [address] * Magnesium (10/23/2024 5:38 AM CORPORATE VP ADVERTISING & ONLINE) Magnesium 1.9 1.4 - 2.5 mg/dL Blood 10/23/2024 5:38 AM CORPORATE VP ADVERTISING & ONLINE 10/23/2024 5:47 AM CORPORATE VP ADVERTISING & ONLINE Fuentes Persaud MD LAB BLOOD ORDERABLES Final Result Performing Organization Address City/[facility]/ZIP Co de Phone Number JOHAN ACOSTA ([place]) 1 [facility] [place] [address] * (ABNORMAL) Basic metabolic panel (10/23/2024 5:38 AM CORPORATE VP ADVERTISING & ONLINE) Sodium 139 135 - 145 mmol/L Potassium, pl 4.3 3.3 - 4.9 mmol/L [facility] ([place]) Chloride 99 97 - 110 mmol/L [facility] ([place]) CO2 22 22 - 32 mmol/L [facility] ([place]) Anion gap 18(H) 2 - 15 mmol/L [facility] ([place]) BUN 39(H) 6 - 25 mg/dL [facility] ([place]) Creatinine 6.14(H) 0.60 - 1.10 mg/dL [facility] ([place]) Glucose 259(H) 70 - 199 mg/dL [facility] ([place]) Comment: Interpretive Data Fasting glucose [...] 2022. Calcium 8.8 8.5 - 10.3 mg/dL [facility] ([place]) Blood 10/23/2024 5:38 AM CORPORATE VP ADVERTISING & ONLINE 10/23/2024 5:47 AM CORPORATE VP ADVERTISING & ONLINE us Fuentes Persaud MD LAB BLOOD ORDERABLES Final Result JOHAN [facility] ([place]) 1 [facility] [place] [address] * (ABNORMAL) POCT glucose (10/23/2024 5:12 AM CORPORATE VP ADVERTISING & ONLINE) Glucose, POC 260(H) 70 - 199 mg/dL Blood 10/23/2024 5:12 AM CORPORATE VP ADVERTISING & ONLINE 10/23/2024 5:12 AM CORPORATE VP ADVERTISING & ONLINE us Fuentes Persaud MD LAB POCT ORDERABLES - BRITTANY CE Final Result Performing Organization Address City/[facility]/ZIP Co de Phone Number JOHAN ACOSTA (FAN) 1 [facility] [place] [address] * (ABNORMAL) POCT glucose (10/23/2024 12:06 AM CORPORATE VP ADVERTISING & ONLINE) Glucose, POC 256(H) 70 - 199 mg/dL Blood 10/23/2024 12:0 6 AM CORPORATE VP ADVERTISING & ONLINE 10/23/2024 12:06 AM CORPORATE VP ADVERTISING & ONLINE Fuentes Persaud MD LAB POCT ORDERABLES - BRITTANY CE Final Result Performing Organization Address [facility] Co de Phone Number JOHAN ACOSTA ([place]) 1 [facility] [place] [address] * ECG 12 lead (10/22/2024 8:24 PM CORPORATE VP ADVERTISING & ONLINE) 10/22/2024 8:24 PM CORPORATE VP ADVERTISING & ONLINE Narrative [facility] - 10/23/2024 6:25 AM CORPORATE VP ADVERTISING & ONLINE Vent Rate: 70 bpm RR Interval: 846 msec OR Interval: 239 msec QRS Duration: 119 msec QT Interval: 427 msec QTC Interval: 449 msec P-R-T [place]: 76 - 74 - 92 degrees IMPRESSION: [...] ECG ORDERABLES Final Result Performing Organization Address [facility] Co de Phone Number [facility] MD [employer] [facility] * (ABNORMAL) POCT glucose (10/22/2024 7:18 PM CORPORATE VP ADVERTISING & ONLINE) Glucose, POC 262(H) 70 - 199 mg/dL Blood 10/22/2024 7:18 PM CORPORATE VP ADVERTISING & ONLINE 10/22/2024 7:18 PM CORPORATE VP ADVERTISING & ONLINE Fuentes Persaud MD LAB POCT ORDERABLES - BRITTANY CE Final Result Performing Organization Address City/[facility]/ZIP Co de Phone Number JOHAN ACOSTA ([place]) [address] [place] [address] [place] [address] * (ABNORMAL) POCT glucose (10/22/2024 6:36 PM CORPORATE VP ADVERTISING & ONLINE) [facility] Glucose, POC 261(H) 70 - 199 mg/dL Blood 10/22/2024 6:36 PM CORPORATE VP ADVERTISING & ONLINE 10/22/2024 6:36 PM CORPORATE VP ADVERTISING & ONLINE Fuentes Persaud MD LAB POCT ORDERABLES - BRITTANY CE Final Result Performing Organization Address [facility] Co de Phone Number JOHAN ACOSTA ([place]) [address] [place] [address] [place] [address] * (ABNORMAL) MRSA Only (Staphylococcus aureus) PCR Nasal (10/22/2024 5:32 PM CORPORATE VP ADVERTISING & ONLINE) [facility] PCR Scrn, Methicillin resistant Staphylococcus aureus (MRSA) Detected( A) Not Detected Comment: Interpretive Data Testing performed using Nucleic Acid Amplification with the [employer] Xpert MRSA NxG Assay. This assay detects target DNA from mecA, mecC and the SCCmec insertion site of Staphylococcus aureus using Real-Time PCR and has been cleared by the FDA. Performance characteristics have been verified by the [facility]. Current Interpretive Data was last revised on 2023 Nasal 10/22/2024 5:32 PM CORPORATE VP ADVERTISING & ONLINE 10/22/2024 5:52 PM CORPORATE VP ADVERTISING & ONLINE Fuentes Persaud MD LAB MICROBIOLOGY - GENERAL ORDERABLES Final Result Performing Organization Address City/[facility]/ZIP Co de Phone Number JOHAN ACOSTA ([place]) [address] [place] [address] [place] [address] * (ABNORMAL) Troponin T high-sensitivity 6-hour (10/22/2024 5:04 PM CORPORATE VP ADVERTISING & ONLINE) Trop T hs 128(H) <=14 ng/L Comment: Interpretive Data For further hscTnT resources including the diagnostic algorithm and an aid in interpretation, copy and paste this link: https://nrl.testcatSource Audio.org/show/hsTrop Current Interpretive Data last revised 2020. Trop T hs pct delta 23(C) % JOHAN ACOSTA ([place]AN) Comment:Critical Result call ed by [email or web address] at 2024-10-22 17:49:17. Result Read Back by Hollie Mars (ED hand cutter) Trop T hs interp Significa nt(C) JOHAN ACOSTA ([place]) Comment:Critical Result call ed by [email or web address] at 2024-10-22 17:49:17. Result Read Back by Hollie Mars (ED hand cutter) Blood 10/22/2024 5:04 PM CORPORATE VP ADVERTISING & ONLINE 10/22/2024 5:28 PM CORPORATE VP ADVERTISING & ONLINE Vincenzo Montgomery MD LAB BLOOD ORDERABLES Final Result NATANAELWON ACOSTA ([place]) [address] [facility] [place] [address] * (ABNORMAL) Troponin T high-sensitivity 4-hour (10/22/2024 4:22 PM CORPORATE VP ADVERTISING & ONLINE) Trop T hs 126(H) <=14 ng/L Comment: Interpretive Data For further hscTnT resources including the diagnostic algorithm and an aid in interpretation, copy and paste this link: https://nrl.testcatSource Audio.org/show/hsTrop Current Interpretive Data last revised 2020. Trop T hs delta See Comment ng/L CE RNER KARLA (FAN) Comment:Inappropriate collec tion time to report a delta. Trop T hs pct delta See Comment % JOHAN ACOSTA ([place]) Comment:Inappropriate collec tion time to report a delta. Trop T hs interp See Comment C ERNMELISSA ACOSTA (FAN) Comment:Inappropriate collec tion time to report a delta. Blood 10/22/2024 4:22 PM CORPORATE VP ADVERTISING & ONLINE 10/22/2024 4:26 PM CORPORATE VP ADVERTISING & ONLINE Vincenzo Montgomery MD LAB BLOOD ORDERABLES Final Result JOHAN ACOSTA ([place]) [address] [facility] Department [place] [address] * (ABNORMAL) POCT glucose (10/22/2024 4:20 PM CORPORATE VP ADVERTISING & ONLINE) Glucose, POC 241(H) 70 - 199 mg/dL Blood 10/22/2024 4:20 PM CORPORATE VP ADVERTISING & ONLINE 10/22/2024 4:20 PM CORPORATE VP ADVERTISING & ONLINE Fuentes Persaud MD LAB POCT ORDERABLES - BRITTANY CE Final Result Performing Organization Address [facility] Co de Phone Number JOHAN ACOSTA ([place]) 1 [facility] [place] [address] * OR CRITICAL CARE ILL/INJURED PATIENT INIT 30-74 MIN (10/22/2024 3:53 PM CORPORATE VP ADVERTISING & ONLINE) Narrative Vincenzo Montgomery MD - 10/22/2024 3:53 PM CORPORATE VP ADVERTISING & ONLINE Vincenzo Montgomery MD 10/22/2024 3:55 PM Critical [...] Final Result * Ammonia (10/22/2024 2:17 PM CORPORATE VP ADVERTISING & ONLINE) Ammonia 27 <=50 mcmol/L Blood 10/22/2024 2:17 PM CORPORATE VP ADVERTISING & ONLINE 10/22/2024 2:22 PM CORPORATE VP ADVERTISING & ONLINE Vincenzo Montgomery MD LAB BLOOD ORDERABLES Final Result Performing Organization Address City/[facility]/ZIP Co de Phone Number [facility] ([place]) [address] [facility] [place] [address] * POCT glucose (10/22/2024 2:01 PM CORPORATE VP ADVERTISING & ONLINE) [facility] Glucose, POC 173 70 - 199 mg/dL Blood 10/22/2024 2:01 PM CORPORATE VP ADVERTISING & ONLINE 10/22/2024 2:01 PM CORPORATE VP ADVERTISING & ONLINE Vincenzo Montgomery MD LAB POCT ORDERABLES - DEVIC E Final Result Performing Organization Address [facility] Co de Phone Number [facility] ([place]) [address] [facility] [place] [address] * (ABNORMAL) Troponin T high-sensitivity 2-hour (10/22/2024 1:58 PM CORPORATE VP ADVERTISING & ONLINE) Trop T hs 116(H) <=14 ng/L Comment: Interpretive Data For further hscTnT resources including the diagnostic algorithm and an aid in interpretation, copy and paste this link: https://nrl.testcatalog.org/show/hsTrop Current Interpretive Data last revised 2020. Trop T hs pct delta 12 % [facility]ER [facility] ([place]) Trop T hs interp Equivocal CER NER [facility] ([place]) Blood 10/22/2024 1:58 PM CORPORATE VP ADVERTISING & ONLINE 10/22/2024 2:05 PM CORPORATE VP ADVERTISING & ONLINE Vincenzo Montgomery MD LAB BLOOD ORDERABLES Final Result Performing Organization Address [facility] Co de Phone Number NATANAELNER [facility] ([place]) [address] [facility] Department [place] [address] * (ABNORMAL) Blood gas, arterial (10/22/2024 1:49 PM CORPORATE VP ADVERTISING & ONLINE) pH, Art 7.30(L) 7.35 - 7.45 PCO2, [...] [facility] ([place]) Blood 10/22/2024 1:49 PM CORPORATE VP ADVERTISING & ONLINE 10/22/2024 1:52 PM CORPORATE VP ADVERTISING & ONLINE Vincenzo Montgomery MD LAB BLOOD ORDERABLES Final Result Performing Organization Address City/[facility] Co de Phone Number [facility]AN [facility] ([place]) 1 [facility] [place] [address] * Sepsis Lactate w/ Reflex (10/22/2024 12:32 PM CORPORATE VP ADVERTISING & ONLINE) Sepsis Lactate 1.1 0.7 - 2.0 mmol/L Blood 10/22/2024 12:3 2 PM CORPORATE VP ADVERTISING & ONLINE 10/22/2024 12:35 PM CORPORATE VP ADVERTISING & ONLINE Vincenzo Montgomery MD LAB BLOOD ORDERABLES Final Result Performing Organization Address [facility] Co de Phone Number JOHAN ACOSTA ([place]) 1 [facility] [place] [address] * ABO/Rh (10/22/2024 12:32 PM CORPORATE VP ADVERTISING & ONLINE) ABO/Rh O Positive Blood 10/22/2024 12:3 2 PM CORPORATE VP ADVERTISING & ONLINE 10/22/2024 12:35 PM CORPORATE VP ADVERTISING & ONLINE Narrative JOHAN ACOSTA ([place]) - 10/22/2024 1:02 PM CORPORATE VP ADVERTISING & ONLINE Has the patient had Daratumumab or Isatuximab in the past 6 months?->Unknown Vincenzo Montgomery MD LAB BLOOD BANK TEST ORDERAB LES Final Result Performing Organization Address [facility] de Phone Number JOHAN ACOSTA ([place]) 1 [facility] [place] [address] * Antibody screen (10/22/2024 12:32 PM CORPORATE VP ADVERTISING & ONLINE) Karon, indirect, Gel Interpretation Negative ABSC Blood 10/22/2024 12:3 2 PM CORPORATE VP ADVERTISING & ONLINE 10/22/2024 12:35 PM CORPORATE VP ADVERTISING & ONLINE Narrative JOHAN ACOSTA ([place]) - 10/22/2024 1:12 PM CORPORATE VP ADVERTISING & ONLINE Has the patient had Daratumumab or Isatuximab in the past 6 months?->Unknown Vincenzo Montgomery MD LAB BLOOD BANK TEST ORDERAB LES Final Result Performing Organization Address [facility] Co de Phone Number JOHAN ACOSTA ([place]) 1 [facility] [place] [address] * Blood culture Blood (10/22/2024 11:24 AM CORPORATE VP ADVERTISING & ONLINE) Report Final Report: No growth Comment:Testing performed by : [facility], [address] [facility], [place]., [address] Blood 10/22/2024 11:2 4 AM CORPORATE VP ADVERTISING & ONLINE 10/22/2024 2:05 PM CORPORATE VP ADVERTISING & ONLINE Narrative JOHAN ACOSTA ([place]) - 10/26/2024 4:00 PM CORPORATE VP ADVERTISING & ONLINE Collection->Peripheral 1. Blood cultures are incubated for [...] performance characteristics have been verified by the [facility]biology [facility]. For questions about this culture, contact the Microbiology Laboratory at [phone]. Interpretive data was last revised on 24. Vincenzo Montgomery MD LAB MICROBIOLOGY - GENERAL ORDERABLES Final Result JOHAN ACOSTA ([place]) [address] [facility] [place] [address] * (ABNORMAL) Troponin T high-sensitivity series (baseline, 2hr, 4hr, 6hr) (10/22/2024 11:20 AM CORPORATE VP ADVERTISING & ONLINE) Trop T hs 104(H) <=14 ng/L Comment: Interpretive Data For further hscTnT resources including the diagnostic algorithm and an aid in interpretation, copy and paste this link: https://nrl.testcatalog.org/show/hsTrop Current Interpretive Data last revised 2020. Blood 10/22/2024 11:2 0 AM CORPORATE VP ADVERTISING & ONLINE 10/22/2024 11:29 AM CORPORATE VP ADVERTISING & ONLINE Vincenzo Montgomery MD LAB BLOOD ORDERABLES Final Result Performing Organization Address City/[facility]/ZIP Co de Phone Number JOHAN ACOSTA FAN) [address] [facility] [place] [address] * (ABNORMAL) eGFR (10/22/2024 11:20 AM CORPORATE VP ADVERTISING & ONLINE) eGFR 8(L) >=60 mL/min/1. 73 m2 Comment: [...] reviewed 2021. Blood 10/22/2024 11:2 0 AM CORPORATE VP ADVERTISING & ONLINE 10/22/2024 11:29 AM CORPORATE VP ADVERTISING & ONLINE us Vincenzo Montgomery MD LAB BLOOD ORDERABLES Final Result Performing Organization Address City/[facility]/ZIP Co de Phone Number JOHAN ACOSTA ([place]) 1 [facility] [place] [address] * (ABNORMAL) Pro B-type natriuretic peptide (10/22/2024 11:20 AM CORPORATE VP ADVERTISING & ONLINE) NT-proBNP 3,884(H) <=300 pg/mL Comment: Interpretive Comments: [...] Heart J. 2006:27:330-337. 2. Camryn RW, Tracie RAHMNA. J. AM Mark Cardiol: Cardiovasc Imag. 2009;2: 216- 225. Interpretive Data Last Revised Date: 2018. Blood 10/22/2024 11:2 0 AM CORPORATE VP ADVERTISING & ONLINE 10/22/2024 11:29 AM CORPORATE VP ADVERTISING & ONLINE Vincenzo Montgomery MD LAB BLOOD ORDERABLES Final Result C[facility]ER [facility] ([place]) [address] [facility] [place] [address] * (ABNORMAL) Blood culture Blood (10/22/2024 11:20 AM CORPORATE VP ADVERTISING & ONLINE) Direct Specimen Exam Molecular Analysis: Streptococcus species [...] tant) called to and read back by: [phone] Lily Flor MT on 10/23/2024 10:37:57 by: Rohan Weber MT Test result called to and read back by Rowan Salvador (ICU) on 10/23/2024 11:07:52 by Amber Ohara Comment:Testing performed by : [facility], [address] [place] [address]., [id number] Direct Specimen Exam Stain: Gram Positive Cocci Time to culture positivity (aerobic media): 14.5 hours Notification of: Gram Positive Cocci called to and read back by: Israel Velazquez MLT [phone]) on 10/23/2024 05:12:59 by: Heri Brunson MLS Test result called to and read back by susana dean on 10/23/2024 05:39:13 by israel ACOSTA (FAN) Comment:Testing performed by : [facility], [address] [place] [address]., [id number] Report Final Report: Staphylococcus hominis Single blood [...] JOHAN ACOSTA ([place]) Comment:Testing performed by : [facility], [address] [place] [address]., [id number] Organism STAPHYLOCOCCUS HOMINIS JOHAN ACOSTA ([place]) Organism STREPTOCOCCUS MITIS GROUP JOHAN ACOSTA ([place]) Organism STAPHYLOCOCCUS EPIDERMIDIS JOHAN ACOSTA ([place]) Blood 10/22/2024 11:2 0 AM CORPORATE VP ADVERTISING & ONLINE 10/22/2024 2:05 PM CORPORATE VP ADVERTISING & ONLINE Narrative JOHAN ACOSTA ([place]) - 10/28/2024 2:02 PM CORPORATE VP ADVERTISING & ONLINE Collection->Peripheral 1. Blood cultures are incubated for [...] performance characteristics have been verified by the [facility] Microbiology Laboratory. For questions about this culture, contact the Microbiology Laboratory at [phone]. Interpretive data was last revised on 24. Vincenzo Montgomery MD LAB MICROBIOLOGY - GENERAL ORDERABLES Final Result Performing Organization Address City/[facility]/ZIP Co de Phone Number JOHAN ACOSTA ([place]) 1 [facility] [place] [address] * (ABNORMAL) CRP (acute phase) (10/22/2024 11:20 AM CORPORATE VP ADVERTISING & ONLINE) CRP 81.9(H) <=10.0 mg/L Blood 10/22/2024 11:2 0 AM CORPORATE VP ADVERTISING & ONLINE 10/22/2024 11:29 AM CORPORATE VP ADVERTISING & ONLINE Vincenzo Montgomery MD LAB BLOOD ORDERABLES Final Result Performing Organization Address City/[facility] Co de Phone Number JOHAN ACOSTA ([place]) [address] [facility] Department [place] [address] * (ABNORMAL) Comprehensive metabolic panel (10/22/2024 11:20 AM CORPORATE VP ADVERTISING & ONLINE) Sodium 136 135 - 145 mmol/L Potassium, [...] [facility] ([place]AN) Blood 10/22/2024 11:2 0 AM CORPORATE VP ADVERTISING & ONLINE 10/22/2024 11:29 AM CORPORATE VP ADVERTISING & ONLINE us Vincenzo Montgomery MD LAB BLOOD ORDERABLES Final Result [facility] ([place]) [address] [facility] [place] [address] * ECG 12 lead (10/22/2024 11:16 AM CORPORATE VP ADVERTISING & ONLINE) 10/22/2024 11:1 6 AM CORPORATE VP ADVERTISING & ONLINE Narrative [facility] - 10/23/2024 6:27 AM CORPORATE VP ADVERTISING & ONLINE Vent Rate: 93 bpm RR Interval: 641 msec OR Interval: 199 msec QRS Duration: 102 msec QT Interval: 399 msec QTC Interval: 450 msec P-R-T [place]: 79 - 62 - 83 degrees IMPRESSION: SINUS RHYTHM LOW QRS VOLTAGE IN PRECORDIAL LEADS [QRS DEFLECTION < 1.0 mV IN CHEST LEADS] BORDERLINE ECG NO CHANGE FROM PREVIOUS TRACING NOTED Electronically Signed By: Jeremy Calix MD us Vincenzo Montgomery MD ECG ORDERABLES Final Resul t [employer] MD [employer] [facility] * XR Chest 1 Vw Portable (10/22/2024 11:08 AM CORPORATE VP ADVERTISING & ONLINE) Anatomical Region Laterality Modality Body, Chest N/A Computed Radiogr aphy 10/22/2024 11:3 3 AM CORPORATE VP ADVERTISING & ONLINE Narrative 10/22/2024 11:37 AM CORPORATE VP ADVERTISING & ONLINE EXAM DESCRIPTION: XR CHEST 1 VIEW REASON [...] FINDINGS: The patient is rotated and tilted [id number]. The examination is severely limited by patient's [...] Harjinder Coello D.O. AP: AP Report ID: [id number] Reading Location: [id number] Procedure Note Harjinder Coello, DO - 10/22/2024 [...] FINDINGS: The patient is rotated and tilted [id number]. The examination isseverely limited by patient's body [...] Harjinder Coello D.O. AP: AP Report ID: [id number] Reading Location: [id number] Vincenzo Montgomery MD IMG XR PROCEDURES Final Res ult * (ABNORMAL) Influenza A/B, RSV, and COVID-19 PCR Nasopharyngeal (10/22/2024 11:03 AM CORPORATE VP ADVERTISING & ONLINE) Pathologist [facility] [place] COVID-19 RNA Negative Negative Influenza A RNA Positive(A) Negative CE RNER [facility] ([place]) Influenza B RNA Negative Negative CERN ER [facility] ([place]AN) RSV RNA Negative Negative CERNER [facility] ([place]) Comment: Interpretive data: Testing performed by [facility]. This test is performed using the [employer] Xpert Xpress CoV-2/Flu/RSV plus assay. This is a multiplex, real- time reverse transcriptase PCR assay intended for the qualitative detection of nucleic acid from SARS-CoV-2, influenza A, influenza B, and respiratory syncytial virus. This assay has been cleared by the [place] Food and Drug administration. The performance characteristics have been verified by the [facility]. Results must be considered in the clinical context, and a negative result does not rule out infection. Interpretive Data last revised 2023 Nasopharyngeal 10/22/2024 11 :03 AM CORPORATE VP ADVERTISING & ONLINE 10/22/2024 11:09 AM CORPORATE VP ADVERTISING & ONLINE Narrative [facility] ([place]) - 10/22/2024 11:48 AM CORPORATE VP ADVERTISING & ONLINE Is the Patient experiencing symptoms consistent with COVID?->Yes Vincenzo Montgomery MD LAB MICROBIOLOGY - GENERAL ORDERABLES Final Result [facility] ([place]) [address] [facility] [place] [address] * (ABNORMAL) Differential, auto (10/22/2024 11:03 AM CORPORATE VP ADVERTISING & ONLINE) Pathologist [facility] [place] Neutrophil abs 3.9 1.5 - 6.5 K/cumm Imm gran abs 0.0 0.0 - 0.1 K/cumm [facility] ([place]) Lymphocyte abs 0.4(L) 0.8 - 3.3 K/cumm BANNERNER [facility] ([place]) Monocyte abs 0.3 0.2 - 0.8 K/cumm [...] on 2017. Blood 10/22/2024 11:0 3 AM CORPORATE VP ADVERTISING & ONLINE 10/22/2024 11:09 AM CORPORATE VP ADVERTISING & ONLINE us Vincenzo Montgomery MD LAB BLOOD ORDERABLES Final Result JOHAN ACOSTA ([place]) [address] [facility] [place] [address] * (ABNORMAL) CBC with auto differential (10/22/2024 11:03 AM CORPORATE VP ADVERTISING & ONLINE) WBC 4.6 3.8 - 9.9 K/cumm Hgb [...] [facility] ([place]AN) Blood 10/22/2024 11:0 3 AM CORPORATE VP ADVERTISING & ONLINE 10/22/2024 11:09 AM CORPORATE VP ADVERTISING & ONLINE Vincenzo Montgomery MD LAB BLOOD ORDERABLES Final Result [facility]AN [facility] ([place]) [address] [facility] [place] [address] * Sepsis Lactate w/ Reflex (10/22/2024 10:55 AM CORPORATE VP ADVERTISING & ONLINE) Pathologist [facility] [place] Sepsis Lactate 1.2 0.7 - 2.0 mmol/L Blood 10/22/2024 10:5 5 AM CORPORATE VP ADVERTISING & ONLINE 10/22/2024 10:57 AM CORPORATE VP ADVERTISING & ONLINE Vincenzo Montgomery MD LAB BLOOD ORDERABLES Final Result Performing Organization Address [facility] Co de Phone Number JOHAN ACOSTA ([place]) 1 [facility] [place] [address] * (ABNORMAL) Blood gas, arterial (10/22/2024 10:54 AM CORPORATE VP ADVERTISING & ONLINE) pH, Art 7.28(L) 7.35 - 7.45 PCO2, [...] [facility] ([place]AN) Blood 10/22/2024 10:5 4 AM CORPORATE VP ADVERTISING & ONLINE 10/22/2024 10:57 AM CORPORATE VP ADVERTISING & ONLINE us Vincenzo Montgomery MD LAB BLOOD ORDERABLES Final Result Performing Organization Address [facility] Co de Phone Number JOHAN ACOSTA ([place]) [address] [place] [address] * (ABNORMAL) POCT glucose (10/19/2024 12:19 PM CORPORATE VP ADVERTISING & ONLINE) Glucose, POC 202(H) 70 - 199 mg/dL Blood 10/19/2024 12:1 9 PM CORPORATE VP ADVERTISING & ONLINE 10/19/2024 12:19 PM CORPORATE VP ADVERTISING & ONLINE us Kimmy Velez MD LAB POCT ORDERABLES - DEVICE F inal Result Performing Organization Address City/[facility] Co de Phone Number JOHAN ACOSTA ([place]) 1 [facility] [place] [address] * POCT glucose (10/19/2024 8:24 AM CORPORATE VP ADVERTISING & ONLINE) Glucose, POC 143 70 - 199 mg/dL Blood 10/19/2024 8:24 AM CORPORATE VP ADVERTISING & ONLINE 10/19/2024 8:24 AM CORPORATE VP ADVERTISING & ONLINE us Kimmy Velez MD LAB POCT ORDERABLES - DEVICE F inal Result Performing Organization Address City/[facility]/ZIP Co de Phone Number JOHAN ACOSTA ([place]) [address] [facility] Department [place] [address] * (ABNORMAL) eGFR (10/19/2024 2:27 AM CORPORATE VP ADVERTISING & ONLINE) eGFR 10(L) >=60 mL/min/1. 73 m2 Comment: [...] last reviewed 2021. Blood 10/19/2024 2:27 AM CORPORATE VP ADVERTISING & ONLINE 10/19/2024 2:30 AM CORPORATE VP ADVERTISING & ONLINE us Sujata Duron MD LAB BLOOD ORDERABLES Fi nal Result JOHAN ACOSTA ([place]) 1 [facility] [place] [address] * (ABNORMAL) Differential, auto (10/19/2024 2:27 AM CORPORATE VP ADVERTISING & ONLINE) Neutrophil abs 3.3 1.5 - 6.5 K/cumm [...] revised on 2017. Blood 10/19/2024 2:27 AM CORPORATE VP ADVERTISING & ONLINE 10/19/2024 2:30 AM CORPORATE VP ADVERTISING & ONLINE us Sujata Duron MD LAB BLOOD ORDERABLES Fi nal Result [facility]AN [facility] ([place]AN) 1 [facility] [place] [address] * (ABNORMAL) CBC with auto differential (10/19/2024 2:27 AM CORPORATE VP ADVERTISING & ONLINE) WBC 4.2 3.8 - 9.9 K/cumm Hgb [...] [facility] (FAN) Blood 10/19/2024 2:27 AM CORPORATE VP ADVERTISING & ONLINE 10/19/2024 2:30 AM CORPORATE VP ADVERTISING & ONLINE us Sujata Duron MD LAB BLOOD ORDERABLES Fi nal Result JOHAN ACOSTA (FAN) 1 [facility] [place] [address] * Magnesium (10/19/2024 2:27 AM CORPORATE VP ADVERTISING & ONLINE) Magnesium 1.6 1.4 - 2.5 mg/dL Blood 10/19/2024 2:27 AM CORPORATE VP ADVERTISING & ONLINE 10/19/2024 2:30 AM CORPORATE VP ADVERTISING & ONLINE us Sujata Duron MD LAB BLOOD ORDERABLES nal Result [facility]AN [facility] ([place]AN) [address] [facility] [place] [address] * (ABNORMAL) Comprehensive metabolic panel (10/19/2024 2:27 AM CORPORATE VP ADVERTISING & ONLINE) Sodium 136 135 - 145 mmol/L Potassium, [...] (FAN) AST 9(L) 10 - 45 Units/L [facility] (FAN) Blood 10/19/2024 2:27 AM CORPORATE VP ADVERTISING & ONLINE 10/19/2024 2:30 AM CORPORATE VP ADVERTISING & ONLINE Sujata Duron MD LAB BLOOD ORDERABLES Fi nal Result Performing Organization Address City/[facility]/ZIP Co de Phone Number JOHAN ACOSTA ([place]) 1 [facility] [place] [address] * POCT glucose (10/19/2024 2:17 AM CORPORATE VP ADVERTISING & ONLINE) Glucose, POC 189 70 - 199 mg/dL Blood 10/19/2024 2:17 AM CORPORATE VP ADVERTISING & ONLINE 10/19/2024 2:17 AM CORPORATE VP ADVERTISING & ONLINE Kimmy Velez MD LAB POCT ORDERABLES - DEVICE F inal Result Performing Organization Address City/[facility]/ZIP Co de Phone Number JOHAN [facility] ([place]) 1 [facility] [place] [address] * POCT glucose (10/18/2024 8:18 PM CORPORATE VP ADVERTISING & ONLINE) Glucose, POC 165 70 - 199 mg/dL Blood 10/18/2024 8:18 PM CORPORATE VP ADVERTISING & ONLINE 10/18/2024 8:18 PM CORPORATE VP ADVERTISING & ONLINE Kimmy Velez MD LAB POCT ORDERABLES - DEVICE F inal Result Performing Organization Address City/[facility]/ZIP Co de Phone Number JOHAN [facility] ([place]) 1 [facility] [place] [address] * POCT glucose (10/18/2024 5:10 PM CORPORATE VP ADVERTISING & ONLINE) Glucose, POC 178 70 - 199 mg/dL Blood 10/18/2024 5:10 PM CORPORATE VP ADVERTISING & ONLINE 10/18/2024 5:10 PM CORPORATE VP ADVERTISING & ONLINE Kimmy Velez MD LAB POCT ORDERABLES - DEVICE F inal Result [facility] ([place]) 1 [facility] [place] [address] * (ABNORMAL) POCT glucose (10/18/2024 12:00 PM CORPORATE VP ADVERTISING & ONLINE) Glucose, POC 201(H) 70 - 199 mg/dL Blood 10/18/2024 12:0 0 PM CORPORATE VP ADVERTISING & ONLINE 10/18/2024 12:00 PM CORPORATE VP ADVERTISING & ONLINE Kimmy Velez MD LAB POCT ORDERABLES - DEVICE F inal Result Performing Organization Address [facility]/ZIP Co de Phone Number [facility] ([place]) 1 [facility] [place] [address] * POCT glucose (10/18/2024 9:10 AM CORPORATE VP ADVERTISING & ONLINE) Glucose, POC 161 70 - 199 mg/dL Blood 10/18/2024 9:10 AM CORPORATE VP ADVERTISING & ONLINE 10/18/2024 9:10 AM CORPORATE VP ADVERTISING & ONLINE Kimmy Velez MD LAB POCT ORDERABLES - DEVICE F inal Result Performing Organization Address [facility] Co de Phone Number [facility] ([place]) 1 [facility] [place] [address] * (ABNORMAL) eGFR (10/18/2024 2:21 AM CORPORATE VP ADVERTISING & ONLINE) eGFR 14(L) >=60 mL/min/1. 73 m2 Comment: [...] last reviewed 2021. Blood 10/18/2024 2:21 AM CORPORATE VP ADVERTISING & ONLINE 10/18/2024 3:04 AM CORPORATE VP ADVERTISING & ONLINE us Sujata Duron MD LAB BLOOD ORDERABLES Fi nal Result [facility] ([place]) 1 [facility] [place] [address] * Differential, auto (10/18/2024 2:21 AM CORPORATE VP ADVERTISING & ONLINE) Neutrophil abs 4.1 1.5 - 6.5 K/cumm [...] revised on 2017. Blood 10/18/2024 2:21 AM CORPORATE VP ADVERTISING & ONLINE 10/18/2024 3:03 AM CORPORATE VP ADVERTISING & ONLINE us Sujata Duron MD LAB BLOOD ORDERABLES Fi nal Result [facility] ([place]) 1 [facility] [place] [address] * (ABNORMAL) CBC with auto differential (10/18/2024 2:21 AM CORPORATE VP ADVERTISING & ONLINE) WBC 5.3 3.8 - 9.9 K/cumm Hgb [...] RDW SD 55.7(H) 35.7 - 48.1 fL [facility] ([place]) NRBC abs 0.00 0.00 - 0.01 K/cumm [facility] ([place]) Blood 10/18/2024 2:21 AM CORPORATE VP ADVERTISING & ONLINE 10/18/2024 3:03 AM CORPORATE VP ADVERTISING & ONLINE Sujata Duron MD LAB BLOOD ORDERABLES Fi nal Result [facility] ([place]) 1 [facility] [place] [place] [address] * Magnesium (10/18/2024 2:21 AM CORPORATE VP ADVERTISING & ONLINE) [facility] Magnesium 1.7 1.4 - 2.5 mg/dL Blood 10/18/2024 2:21 AM CORPORATE VP ADVERTISING & ONLINE 10/18/2024 3:04 AM CORPORATE VP ADVERTISING & ONLINE Sujata Duron MD LAB BLOOD ORDERABLES Fi nal Result Performing Organization Address City/[facility]/ZIP Co de Phone Number [facility] ([place]) 1 [facility] [place] [address] * (ABNORMAL) Comprehensive metabolic panel (10/18/2024 2:21 AM CORPORATE VP ADVERTISING & ONLINE) Pathologist [facility] Sodium 137 135 - 145 mmol/L Potassium, pl 3.9 3.3 - 4.9 mmol/L [facility] ([place]) Chloride 97 97 - 110 mmol/L [facility] ([place]) CO2 27 22 - 32 mmol/L [facility] ([place]) Anion gap 13 2 - 15 mmol/L [facility] ([place]) BUN 35(H) 6 - 25 mg/dL [facility] ([place]) Creatinine 3.44(H) 0.60 - 1.10 mg/dL [facility] ([place]) Glucose 170 70 - 199 mg/dL [facility] ([place]) [...] [facility] ([place]) Blood 10/18/2024 2:21 AM CORPORATE VP ADVERTISING & ONLINE 10/18/2024 3:04 AM CORPORATE VP ADVERTISING & ONLINE us Sujata Duron MD LAB BLOOD ORDERABLES Fi nal Result Performing Organization Address City/[facility]/ZIP Co de Phone Number JOHAN ACOSTA (FAN) 1 [facility] [employer] [place] [address] * POCT glucose (10/18/2024 2:20 AM CORPORATE VP ADVERTISING & ONLINE) [facility] Signature Glucose, POC 184 70 - 199 mg/dL Blood 10/18/2024 2:20 AM CORPORATE VP ADVERTISING & ONLINE 10/18/2024 2:20 AM CORPORATE VP ADVERTISING & ONLINE Kimmy Velez MD LAB POCT ORDERABLES - DEVICE F inal Result Performing Organization Address City/[facility]/ZIP Co de Phone Number [facility] ([place]) 1 [facility] [place] [address] * POCT glucose (10/17/2024 8:15 PM CORPORATE VP ADVERTISING & ONLINE) Glucose, POC 177 70 - 199 mg/dL Blood 10/17/2024 8:15 PM CORPORATE VP ADVERTISING & ONLINE 10/17/2024 8:15 PM CORPORATE VP ADVERTISING & ONLINE Kimmy Velez MD LAB POCT ORDERABLES - DEVICE F inal Result [facility] ([place]) 1 [facility] [place] [address] * POCT glucose (10/17/2024 4:41 PM CORPORATE VP ADVERTISING & ONLINE) Glucose, POC 196 70 - 199 mg/dL Blood 10/17/2024 4:41 PM CORPORATE VP ADVERTISING & ONLINE 10/17/2024 4:41 PM CORPORATE VP ADVERTISING & ONLINE Kimmy Velez MD LAB POCT ORDERABLES - DEVICE F inal Result [facility] ([place]) 1 [facility] [place] [address] * POCT glucose (10/17/2024 12:43 PM CORPORATE VP ADVERTISING & ONLINE) Glucose, POC 140 70 - 199 mg/dL Blood 10/17/2024 12:4 3 PM CORPORATE VP ADVERTISING & ONLINE 10/17/2024 12:43 PM CORPORATE VP ADVERTISING & ONLINE Kimmy Velez MD LAB POCT ORDERABLES - DEVICE F inal Result [facility] ([place]) 1 [facility] [place] [address] * POCT glucose (10/17/2024 2:13 AM CORPORATE VP ADVERTISING & ONLINE) Glucose, POC 119 70 - 199 mg/dL Blood 10/17/2024 2:13 AM CORPORATE VP ADVERTISING & ONLINE 10/17/2024 2:13 AM CORPORATE VP ADVERTISING & ONLINE us Emilia Damian MD LAB POCT ORDERABLES - DEV ICE Final Result Performing Organization Address City/[facility]/ZIP Co de Phone Number [facility]OHAN [facility] ([place]) 1 [facility] [place] [address] * (ABNORMAL) eGFR (10/17/2024 12:13 AM CORPORATE VP ADVERTISING & ONLINE) eGFR 9(L) >=60 mL/min/1. 73 m2 Comment: [...] reviewed 2021. Blood 10/17/2024 12:1 3 AM CORPORATE VP ADVERTISING & ONLINE 10/17/2024 12:23 AM CORPORATE VP ADVERTISING & ONLINE us Sujata Duron MD LAB BLOOD ORDERABLES Fi nal Result [facility] ([place]) 1 [facility] [place] [address] * (ABNORMAL) Differential, auto (10/17/2024 12:13 AM CORPORATE VP ADVERTISING & ONLINE) Neutrophil abs 6.0 1.5 - 6.5 K/cumm [...] on 2017. Blood 10/17/2024 12:1 3 AM CORPORATE VP ADVERTISING & ONLINE 10/17/2024 12:23 AM CORPORATE VP ADVERTISING & ONLINE us Lesley Cruz MD LAB BLOOD ORDERABLES Final Result [facility] ([place]) 1 [facility] [place] [address] * (ABNORMAL) CBC with auto differential (10/17/2024 12:13 AM CORPORATE VP ADVERTISING & ONLINE) WBC 7.2 3.8 - 9.9 K/cumm Hgb [...] [facility] (FAN) Blood 10/17/2024 12:1 3 AM CORPORATE VP ADVERTISING & ONLINE 10/17/2024 12:23 AM CORPORATE VP ADVERTISING & ONLINE us Sujata Duron MD LAB BLOOD ORDERABLES Fi nal Result JOHAN ACOSTA ([place]) 1 [facility] [place] [address] * (ABNORMAL) Phosphorus (10/17/2024 12:13 AM CORPORATE VP ADVERTISING & ONLINE) Phosphorus, pl 7.1(H) 2.3 - 4.5 mg/dL Blood 10/17/2024 12:1 3 AM CORPORATE VP ADVERTISING & ONLINE 10/17/2024 12:23 AM CORPORATE VP ADVERTISING & ONLINE Sujata Duron MD LAB BLOOD ORDERABLES Fi nal Result JOHAN ACOSTA ([place]) 1 [facility] [place] [address] * Magnesium (10/17/2024 12:13 AM CORPORATE VP ADVERTISING & ONLINE) Magnesium 1.8 1.4 - 2.5 mg/dL Blood 10/17/2024 12:1 3 AM CORPORATE VP ADVERTISING & ONLINE 10/17/2024 12:23 AM CORPORATE VP ADVERTISING & ONLINE Sujata Duron MD LAB BLOOD ORDERABLES Fi nal Result Performing Organization Address [facility] Co de Phone Number JOHAN ACOSTA ([place]) 1 [facility] [place] [address] * (ABNORMAL) Comprehensive metabolic panel (10/17/2024 12:13 AM CORPORATE VP ADVERTISING & ONLINE) Sodium 140 135 - 145 mmol/L Potassium, pl 5.5(H) 3.3 - 4.9 mmol/L [facility] ([place]) Chloride 102 97 - 110 mmol/L [facility] ([place]) CO2 23 22 - 32 mmol/L [facility] ([place]) Anion gap 15 2 - 15 mmol/L [facility] ([place]) BUN 68(H) 6 - 25 mg/dL [facility] ([place]) Creatinine 5.14(H) 0.60 - 1.10 mg/dL [facility] ([place]) Glucose 112 70 - 199 mg/dL [facility] ([place]) Comment: Interpretive Data Fasting glucose [...] Hemolyzed Specimen Blood 10/17/2024 12:1 3 AM CORPORATE VP ADVERTISING & ONLINE 10/17/2024 12:23 AM CORPORATE VP ADVERTISING & ONLINE us Sujata Duron MD LAB BLOOD ORDERABLES Fi nal Result [facility] ([place]) 1 [facility] [place] [address] * (ABNORMAL) Potassium (10/16/2024 9:06 PM CORPORATE VP ADVERTISING & ONLINE) [facility] Potassium, pl 5.4(H) 3.3 - 4.9 mmol/L Blood 10/16/2024 9:06 PM CORPORATE VP ADVERTISING & ONLINE 10/16/2024 9:15 PM CORPORATE VP ADVERTISING & ONLINE Narrative [facility] ([place]) - 10/16/2024 9:37 PM CORPORATE VP ADVERTISING & ONLINE Provider to discontinue after two normal results. us Lesley Cruz MD LAB BLOOD ORDERABLES Final Result JOHAN ACOSTA ([place]) 1 [facility] [place] [address] * POCT glucose (10/16/2024 8:49 PM CORPORATE VP ADVERTISING & ONLINE) Glucose, POC 121 70 - 199 mg/dL Blood 10/16/2024 8:49 PM CORPORATE VP ADVERTISING & ONLINE 10/16/2024 8:49 PM CORPORATE VP ADVERTISING & ONLINE Emilia Damian MD LAB POCT ORDERABLES - DEV ICE Final Result [facility] ([place]) 1 [facility] [place] [address] * (ABNORMAL) Potassium (10/16/2024 5:31 PM CORPORATE VP ADVERTISING & ONLINE) Potassium, pl 5.2(H) 3.3 - 4.9 mmol/L Blood 10/16/2024 5:31 PM CORPORATE VP ADVERTISING & ONLINE 10/16/2024 5:33 PM CORPORATE VP ADVERTISING & ONLINE Narrative [facility]ON [facility] ([place]) - 10/16/2024 5:49 PM CORPORATE VP ADVERTISING & ONLINE Provider to discontinue after two normal results. us Lesley Cruz MD LAB BLOOD ORDERABLES Final Result Performing Organization Address City/[facility]/ZIP Co de Phone Number JOHAN ACOSTA ([place]) 1 [facility] [place] [address] * POCT glucose (10/16/2024 5:12 PM CORPORATE VP ADVERTISING & ONLINE) Glucose, POC 179 70 - 199 mg/dL Blood 10/16/2024 5:12 PM CORPORATE VP ADVERTISING & ONLINE 10/16/2024 5:12 PM CORPORATE VP ADVERTISING & ONLINE Emilia Damian MD LAB POCT ORDERABLES - DEV ICE Final Result [facility] ([place]) 1 [facility] [place] [address] * POCT glucose (10/16/2024 4:04 PM CORPORATE VP ADVERTISING & ONLINE) Glucose, POC 193 70 - 199 mg/dL Blood 10/16/2024 4:04 PM CORPORATE VP ADVERTISING & ONLINE 10/16/2024 4:04 PM CORPORATE VP ADVERTISING & ONLINE us Emilia Damian MD LAB POCT ORDERABLES - DEV ICE Final Result Performing Organization Address City/[facility]/ZIP Co de Phone Number [facility]OHAN [facility]CO[facility] ([place]) 1 [place] [address] * POCT glucose (10/16/2024 3:11 PM CORPORATE VP ADVERTISING & ONLINE) Glucose, POC 157 70 - 199 mg/dL Blood 10/16/2024 3:11 PM CORPORATE VP ADVERTISING & ONLINE 10/16/2024 3:11 PM CORPORATE VP ADVERTISING & ONLINE us Emilia Damian MD LAB POCT ORDERABLES - DEV ICE Final Result Performing Organization Address [facility] de Phone Number [facility] ([place]) [address] [place] [address] * OR CRITICAL CARE ILL/INJURED PATIENT INIT 30-74 MIN (10/16/2024 2:08 PM CORPORATE VP ADVERTISING & ONLINE) Narrative Fabricio Flores MD - 10/16/2024 2:08 PM CORPORATE VP ADVERTISING & ONLINE Fabricio Flores MD 10/16/2024 2:08 PM Critical [...] Result * POCT glucose (10/16/2024 1:44 PM CORPORATE VP ADVERTISING & ONLINE) Glucose, POC 136 70 - 199 mg/dL Blood 10/16/2024 1:44 PM CORPORATE VP ADVERTISING & ONLINE 10/16/2024 1:44 PM CORPORATE VP ADVERTISING & ONLINE us Fabricio Flores MD LAB POCT ORDERABLES - DEVICE Final Result JOHAN ACOSTA ([place]) 1 [facility] [place] [address] * ECG 12 lead (10/16/2024 1:37 PM CORPORATE VP ADVERTISING & ONLINE) 10/16/2024 1:37 PM CORPORATE VP ADVERTISING & ONLINE Narrative [facility] - 10/16/2024 2:12 PM CORPORATE VP ADVERTISING & ONLINE Vent Rate: 64 bpm RR Interval: 937 msec OR Interval: 190 msec QRS Duration: 105 msec QT Interval: 408 msec QTC Interval: 417 msec P-R-T [place]: 69 - 62 - 72 degrees IMPRESSION: SINUS RHYTHM LOW QRS VOLTAGE IN PRECORDIAL LEADS [QRS DEFLECTION < 1.0 mV IN CHEST LEADS] BORDERLINE ECG NO CHANGE FROM PREVIOUS TRACING NOTED Electronically Signed By: Jeremy Calix MD us Lesley Cruz MD ECG ORDERABLES Final Resu lt Performing Organization Address [facility] Co de Phone Number [employer] [facility] * (ABNORMAL) eGFR (10/16/2024 12:35 PM CORPORATE VP ADVERTISING & ONLINE) eGFR 10(L) >=60 mL/min/1. 73 m2 Comment: [...] reviewed 2021. Blood 10/16/2024 12:3 5 PM CORPORATE VP ADVERTISING & ONLINE 10/16/2024 12:36 PM CORPORATE VP ADVERTISING & ONLINE us Fabricio Flores MD LAB BLOOD ORDERABLES Final R esult [facility] ([place]AN) 1 [facility] [place] [address] * (ABNORMAL) Comprehensive metabolic panel (10/16/2024 12:35 PM CORPORATE VP ADVERTISING & ONLINE) Sodium 139 135 - 145 mmol/L Potassium, pl 6.1(C) 3.3 - 4.9 mmol/L [facility] ([place]) Comment:Critical Result call ed by [email or web address] at 2024-10-16 13:06:17. Result Read Back by [...] Hemolyzed Specimen Blood 10/16/2024 12:3 5 PM CORPORATE VP ADVERTISING & ONLINE 10/16/2024 12:36 PM CORPORATE VP ADVERTISING & ONLINE Fabricio Flores MD LAB BLOOD ORDERABLES Final R esult Performing Organization Address City/[facility] Co de Phone Number [facility] ([place]) 1 [facility] [place] [address] * ECG 12 lead (10/16/2024 11:59 AM CORPORATE VP ADVERTISING & ONLINE) 10/16/2024 11:5 9 AM CORPORATE VP ADVERTISING & ONLINE Narrative [facility] - 10/16/2024 12:57 PM CORPORATE VP ADVERTISING & ONLINE Vent Rate: 62 bpm RR Interval: 960 msec OR Interval: 191 msec QRS Duration: 99 msec QT Interval: 397 msec QTC Interval: 402 msec P-R-T [place]: 81 - 73 - 77 degrees IMPRESSION: SINUS RHYTHM LOW QRS VOLTAGE IN PRECORDIAL LEADS [QRS DEFLECTION < 1.0 mV IN CHEST LEADS] BORDERLINE ECG NO CHANGE FROM PREVIOUS TRACING NOTED Electronically Signed By: Jeremy Calix MD Fabricio Flores MD ECG ORDERABLES Final Result Performing Organization Address [facility] Co de Phone Number [facility] MD [employer] [facility] * Differential, auto (10/16/2024 11:49 AM CORPORATE VP ADVERTISING & ONLINE) Neutrophil abs 6.4 1.5 - 6.5 K/cumm [...] on 2017. Blood 10/16/2024 11:4 9 AM CORPORATE VP ADVERTISING & ONLINE 10/16/2024 12:01 PM CORPORATE VP ADVERTISING & ONLINE us Fabricio Flores MD LAB BLOOD ORDERABLES Final R esult [facility] ([place]) 1 [facility] [place] [address] * (ABNORMAL) CBC with auto differential (10/16/2024 11:49 AM CORPORATE VP ADVERTISING & ONLINE) [facility] WBC 7.7 3.8 - 9.9 K/cumm Hgb 9.1(L) 11.9 - 15.5 g/dL [facility] ([place]) Hct 32.4(L) 35.6 - 45.5 [...] RDW SD 65.8(H) 35.7 - 48.1 fL [facility] ([place]) NRBC abs 0.00 0.00 - 0.01 K/cumm [facility] ([place]) Blood 10/16/2024 11:4 9 AM CORPORATE VP ADVERTISING & ONLINE 10/16/2024 12:01 PM CORPORATE VP ADVERTISING & ONLINE us Fabricio Flores MD LAB BLOOD ORDERABLES Final R esult JOHAN ACOSTA ([place]) 1 [facility] [place] [address] * Hepatitis panel, acute Blood (10/07/2024 11:04 AM CORPORATE VP ADVERTISING & ONLINE) [facility] Hep A IgM Nonreactive Nonreactive Comment: Interpretive Data: If Hep A IgM Ab is reported as Equivocal, a new sample should be drawn in two weeks for testing. Current interpretive data was last revised on 19. Testing performed by: [facility], [address] [place] [address]., [id number] Hep B core IgM Nonreactive Nonreactive C SIENNA ACOSTA (FAN) Comment: Interpretive Data If HepB Core IgM Ab is reported as Equivocal, a new sample should be drawn in two weeks for testing. Current interpretive data was last revised on 19. Testing performed by: [facility], [address] [place] [address]., [id number] Hep C Ab Nonreactive Nonreactive JOHAN ACOSTA [...] last revised on 2019. Testing performed by: [facility], [address] [place] [address]., [id number] HepBsAg Nonreactive Nonreactive JOHAN ACOSTA (FAN) Comment:Testing performed by : [address] [id number] Blood 10/07/2024 11:0 4 AM CORPORATE VP ADVERTISING & ONLINE 10/07/2024 1:25 PM CORPORATE VP ADVERTISING & ONLINE Miguel Jamison MD LAB MICROBIOLOGY - [facility] ORDERABLES Final Result JOHAN ACOSTA (FAN) 1 [facility] [place] [address] * Occult blood, fecal non neoplasm screening (08/02/2017 7:41 AM CORPORATE VP ADVERTISING & ONLINE) Occult blood, fecal Negative Negative [facility] ([place]AN) Collection date 1, feces [id number] [facility] (FAN) Collection time 1, feces 0740 [facility] ([place]) Stool 08/02/2017 7:41 AM CORPORATE VP ADVERTISING & ONLINE 08/02/2017 7:44 AM CORPORATE VP ADVERTISING & ONLINE Pam Rivas MD LAB BODY FLUIDS AND STOOLS ORDER SARIKA Final Result [facility] ([place]) 1 [facility] [place] [address] * MAMMOGRAPHY (01/11/2002) Mammogram Normal Historical Provider HEALTH MAINTENANCE Final Result * COLONOSCOPY (10/14/2001) Colonoscopy Unknown Historical Moisés [facility]ON HEALTH MAINTENANCE Final Result from Last 3 Months or Most Recently Relevant to Health Maintenance Additional Health Concerns Infection Onset Date Last Indicated MDR gram neg/ESBL 11/02/2024 11/02/2024 Insurance MEDICARE [facility] AETNA MEDICARE [facility] MEDICARE Address: [facility] [address] [place] [address] [facility] [employer] [facility] [employer] Advance Directives For more information, please contact: [phone] Documents on File Type Date Recorded 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
[2025-01-13] MEDS: EPOETIN ALFA-EPBX 20,000 UNITS/ML VIAL 20000 UNITS SUB-Q (13:36)
--- NOTE | 2025-01-13 14:14 | P.PNIM_ITS ---
Progress Note: A&P Assessment and Plan (1) Acute UTI: Code(s): N39.0 - Urinary tract infection, site not specified Status: Acute Assessment and Plan: - did not meet SIRS criteria - UA: Turbid, 3+ protein, 3+ blood, positive nitrates, 3+ leuks, greater than 100 RBC and WBC, occasional epithelial cells, 4+ bacteria Continue Rocephin monitor urine culture (2) Anemia: Qualifiers: Anemia type: due to chronic kidney disease Chronic kidney disease stage: on chronic dialysis Qualified Code(s): N18.6 - End stage renal disease; D63.1 - Anemia in chronic kidney disease; Z99.2 - Dependence on renal dialysis Code(s): D64.9 - Anemia, unspecified Status: Acute Assessment and Plan: - Hgb 7.9 on admission - likely has some underlying anemia of chronic disease/secondary to CKD. - iron sat,B12, folic acid, and TSH wnl - Hb 6.6, transfuse 1 unit pRBC - Erythropoietin per Nephrology - trend H&H (3) Dialysis AV fistula malfunction: Qualifiers: Encounter type: initial encounter Qualified Code(s): T82.590A - Other mechanical complication of surgically created arteriovenous fistula, initial encounter Code(s): T82.590A - Other mechanical complication of surgically created arteriovenous fistula, initial encounter Status: Acute Assessment and Plan: - has been malfunctioning for the past week, last full treatment of dialysis on 12/15. Did receive partial treatment on 01/10. - general surgery consulted. ED spoke with on-call surgeon, will likely have dialysis catheter exchange on Wednesday. - trend electrolytes in interim (4) ESRD on dialysis: Code(s): N18.6 - End stage renal disease; Z99.2 - Dependence on renal dialysis Status: Inactive Assessment and Plan: - ESRD on HD on MWF - issues with dialysis fistula, see above nephrology following (5) HTN (hypertension): Qualifiers: Hypertension type: unspecified Qualified Code(s): I10 - Essential (primary) hypertension Code(s): I10 - Essential (primary) hypertension Status: Chronic Assessment and Plan: - chronic, currently 120/59 - continue home medications - monitor (6) Obstructive sleep apnea treated with BiPAP: Code(s): G47.33 - Obstructive sleep apnea (adult) (pediatric) Status: Acute Assessment and Plan: - continue home CPAP Plan Pneumonia LLL Pneumonia per CXR Blood culture pending MRSA positive Rocephin and Doxycycline monitor Diet: Renal DVT Prophylaxis: Heparin Code Status: Full code Subjective Date/time seen: 01/13/25 14:14 Interval history: Comfortable at bedside Review of Systems Review of Systems: All systems reviewed & are unremarkable except as noted in HPI and below Exam Narrative: coarse Const: General: comfortable and no acute distress Other: , female, obese body habitus, chronically ill-appearing HENMT: Face/Nose/Sinus: Normal nares present Mouth: Yes moist mucous membranes Eyes: General: appearance normal, both eyes and all related structures Sclera: sclerae normal Pupils: Equal, round and reactive pupils present EOM: EOMs intact bilaterally Resp: Effort & Inspection: normal respiratory effort Auscultation: clear to auscultation bilaterally Cardio: Rate: regular rate Rhythm: regular rhythm Other: S1-S2 present without murmur, rub, ectopy GI: Other: Abdomen soft, nondistended but rounded, nontender. Normoactive bowel sounds in all quadrants. Skin: General skin exam: normal color and no rashes or lesions noted Wounds: no wounds Neuro: Cranial nerves: Yes Equal, round and reactive pupils present Speech: normal speech Motor exam (neuro): 5/5 motor strength present throughout Sensory Exam: normal sensation Other: A&O x4, somnolent Extrem: General: normal to inspection Psych: Mental Status: mental status grossly normal Affect: normal affect Objective Data Vital Signs Vital Signs: Vital Signs - 24 hr 01/12/25 14:15 01/12/25 14:30 01/12/25 14:31 Temperature Pulse Rate 67 66 66 Respiratory Rate 15 18 16 Blood Pressure 116/55 L Pulse Oximetry 100 96 100 Oxygen Delivery Oxygen Flow Rate 01/12/25 14:45 01/12/25 15:00 01/12/25 15:01 Temperature Pulse Rate 73 71 69 Respiratory Rate 17 15 16 Blood Pressure 142/61 H Pulse Oximetry 100 100 100 Oxygen Delivery Oxygen Flow Rate 01/12/25 15:30 01/12/25 16:01 01/12/25 17:25 Temperature 97.8 F 98.2 F Pulse Rate 68 71 Respiratory Rate 16 17 18 Blood Pressure 128/65 120/59 L Pulse Oximetry 99 100 99 Oxygen Delivery Oxygen Flow Rate 2 01/12/25 20:00 01/12/25 20:22 01/12/25 22:40 Temperature 97.7 F Pulse Rate 74 74 Respiratory Rate 20 20 Blood Pressure 124/48 L Pulse Oximetry 100 100 99 Oxygen Delivery Nasal Cannula Nasal Cannula Oxygen Flow Rate 2 2 01/12/25 22:40 01/13/25 02:59 01/13/25 08:00 Temperature 97.7 F Pulse Rate 74 75 Respiratory Rate 14 20 Blood Pressure 130/50 L Pulse Oximetry 99 96 96 Oxygen Delivery Autopap Nasal Cannula Oxygen Flow Rate 2 01/13/25 12:27 01/13/25 12:44 01/13/25 13:47 Temperature 97.8 F 97.9 F 97.7 F Pulse Rate 73 72 80 Respiratory Rate 18 18 20 Blood Pressure 110/39 L 100/35 L 120/44 L Pulse Oximetry 100 99 100 Oxygen Delivery Oxygen Flow Rate Intake/Output Intake/Output: Intake & Output 01/10/25 01/11/25 01/12/25 01/13/25 23:59 23:59 23:59 23:59 Intake Total 810 Output Total 75 100 Balance -75 710 Meds/Results Medications: Active Medications Generic Name Dose Route Start Last Admin Trade Name Freq PRN Reason Stop Dose Admin Acetaminophen 650 mg 01/12/25 18:12 01/13/25 07:35 Acetaminophen 325 Mg Tablet PO 650 mg Q4H PRN Administration Mild Pain (1-3) or Fever Ceftriaxone Sodium 1 gm in 50 mls @ 100 mls/hr 01/13/25 17:00 Rocephin 1 Gm/Ns 50 Ml IVPB Q24H MARLEEN Doxycycline Hyclate 100 mg in 100 mls @ 100 mls/hr 01/13/25 10:00 01/13/25 12:16 Vibramycin 100 Mg/Ns 100 Ml IVPB Infused Q12HR MARLEEN Infusion Sodium Chloride 250 mls @ 30 mls/hr 01/13/25 10:59 01/13/25 12:10 Normal Saline Iv IV CONT 01/13/25 19:18 30 mls/hr .Q8H20M STA Administration Mupirocin 1 applic 01/13/25 09:00 01/13/25 09:01 Mupirocin 2% Oint 22 Gm Tube EACH NARE 01/17/25 21:01 1 applic Q12HR MARLEEN Administration Ondansetron HCl 4 mg 01/12/25 18:12 Ondansetron Inj 4 Mg/2 Ml Vial IV PUSH Q6H PRN Nausea And Vomiting Radiology Results: ITS Impressions Chest X-Ray 01/12/25 12:47 IMPRESSION: 1. Opacities at the lateral left mid to lower lung zone which could represent prominent paracardial fat pad, atelectasis, pneumonia or some combination thereof. 2. Cardiomegaly with pulmonary vascular congestion. 3. Evaluation somewhat limited by patient body habitus. Labs Labs: Laboratory Results - last 24 hr 01/12/25 01/12/25 01/12/25 12:57 15:01 20:08 WBC RBC Hgb Hct MCV MCH MCHC RDW Plt Count MPV Immature Gran % (Auto) Neut % (Auto) Lymph % (Auto) [place] % (Auto) Eos % (Auto) Baso % (Auto) Lymph # (Auto) [place] # (Auto) Eos # (Auto) Baso # (Auto) Abs Immat Gran (auto) Absolute Neuts (auto) Absolute Nucleated RBC Nucleated RBC % Sodium Potassium Chloride Carbon Dioxide Anion Gap BUN Creatinine Estim Creat Clear Calc Estimated GFR Glucose POC Capillary Glucose Calcium Phosphorus Magnesium Iron TIBC % Saturation Ferritin Total Bilirubin AST ALT Alkaline Phosphatase Total Protein Albumin Vitamin B12 Folate TSH (Reflex) Urine Color Yellow Urine Appearance Turbid H Urine pH 6.0 Ur Specific [place] 1.012 Urine Protein 3+ H Urine Glucose (UA) Negative Urine Ketones Negative Ur Blood (Man) 3+ H Urine Nitrate Positive H Urine Bilirubin Negative Urine Urobilinogen 0.2 Add Ur Microanalysis Reviewed Leukocyte Esterase Rfl 3+ H Urine RBC >100 H Urine WBC >100 H Ur Squamous Epith Cells Occasional Urine Bacteria 4+ H Urine Casts 6-10 Nasal MRSA (PCR) Detected A* Hep Bs Antigen Hep Bs Antibody Blood Type O Positive Antibody Screen Negative Crossmatch See Detail 01/13/25 01/13/25 01/13/25 04:48 08:06 10:42 WBC 6.5 RBC 2.32 L Hgb 6.9 L* 6.6 L* Hct 22.1 L 21.4 L MCV 95.3 MCH 29.7 MCHC 31.2 L RDW 13.2 Plt Count 177 MPV 8.6 Immature Gran % (Auto) 0.5 Neut % (Auto) 86.6 H Lymph % (Auto) 5.9 L [place] % (Auto) 6.8 Eos % (Auto) 0.0 Baso % (Auto) 0.2 Lymph # (Auto) 0.38 L [place] # (Auto) 0.4 Eos # (Auto) 0.0 Baso # (Auto) 0.0 Abs Immat Gran (auto) 0.03 Absolute Neuts (auto) 5.6 Absolute Nucleated RBC 0.000 Nucleated RBC % 0.0 Sodium 138 Potassium 4.8 Chloride 97 L Carbon Dioxide 27 Anion Gap 14 H BUN 63 H Creatinine 5.97 H Estim Creat Clear Calc 14 Estimated GFR 7 L Glucose 139 H POC Capillary Glucose 111 H Calcium 9.3 Phosphorus 9.1 H Magnesium 2.1 Iron 71 TIBC 230 L % Saturation 31 Ferritin 338.00 H Total Bilirubin 0.3 AST 19 ALT 13 Alkaline Phosphatase 85 Total Protein 6.0 L Albumin 3.6 Vitamin B12 556.0 Folate > 20.0 H TSH (Reflex) 2.040 Urine Color Urine Appearance Urine pH Ur Specific [place] Urine Protein Urine Glucose (UA) Urine Ketones Ur Blood (Man) Urine Nitrate Urine Bilirubin Urine Urobilinogen Add Ur Microanalysis Leukocyte Esterase Rfl Urine RBC Urine WBC Ur Squamous Epith Cells Urine Bacteria Urine Casts Nasal MRSA (PCR) Hep Bs Antigen Negative Hep Bs Antibody Negative Blood Type Antibody Screen Crossmatch 01/13/25 11:52 WBC RBC Hgb Hct MCV MCH MCHC RDW Plt Count MPV Immature Gran % (Auto) Neut % (Auto) Lymph % (Auto) [place] % (Auto) Eos % (Auto) Baso % (Auto) Lymph # (Auto) [place] # (Auto) Eos # (Auto) Baso # (Auto) Abs Immat Gran (auto) Absolute Neuts (auto) Absolute Nucleated RBC Nucleated RBC % Sodium Potassium Chloride Carbon Dioxide Anion Gap BUN Creatinine Estim Creat Clear Calc Estimated GFR Glucose POC Capillary Glucose 137 H Calcium Phosphorus Magnesium Iron TIBC % Saturation Ferritin Total Bilirubin AST ALT Alkaline Phosphatase Total Protein Albumin Vitamin B12 Folate TSH (Reflex) Urine Color Urine Appearance Urine pH Ur Specific [place] Urine Protein Urine Glucose (UA) Urine Ketones Ur Blood (Man) Urine Nitrate Urine Bilirubin Urine Urobilinogen Add Ur Microanalysis Leukocyte Esterase Rfl Urine RBC Urine WBC Ur Squamous Epith Cells Urine Bacteria Urine Casts Nasal MRSA (PCR) Hep Bs Antigen Hep Bs Antibody Blood Type Antibody Screen Crossmatch Quality VTE Prophylaxis VTE prophylaxis: mechanical ordered
[2025-01-13] MEDS: ALPRAZolam (*CRX) 0.5 MG TABLET PO ×2 (15:03→21:22)
[2025-01-13] MEDS: HYDROcodone/acetaminophen (*CRX) 5-325 MG TABLET 1 TAB PO ×2 (15:03→22:25)
[2025-01-13] MEDS: levETIRAcetam 500 MG TABLET PO ×2 (15:03→21:11)
[2025-01-13 17:08] LABS: Glucose Point of Care 122 mg/dl (65-105)
--- NOTE | 2025-01-13 18:38 | P.CONS_ITS ---
Assessment and Plan Assessment and plan (1) Hemodialysis catheter dysfunction: Code(s): T82.41XA - Breakdown (mechanical) of vascular dialysis catheter, initial encounter Status: Acute Assessment and Plan: Patient has a clotted nonfunctioning right internal jugular vein hemodialysis catheter. She also has an acute UTI. She needs any emergent dialysis catheter placed then a temporary subclavian catheter can be placed which may be difficult due to her super morbid obesity. A tunnel catheter to her left internal jugular vein for more durable dialysis access it would be much more challenging. She will likely require general anesthetic and positioning on our operating table may be problematic. I have spoken with Dr. Calix and he feels she does not need emergent hemodialysis. He and I both agree that transfer to a tertiary care facility that has vascular clinical field specialist or interventional hospital product specialist and procedure tables that can accommodate her weight and positioning on operating table for placement of a tunneled dialysis catheter may be the best option. (2) Morbid obesity with BMI of 50.0-59.9, adult: Code(s): E66.01 - Morbid (severe) obesity due to excess calories; Z68.43 - Body mass index [BMI] 50.0-59.9, adult Status: Acute (3) Acute UTI: Code(s): N39.0 - Urinary tract infection, site not specified Status: Acute HPI Data of Consult Date/Time: 01/13/25 18:38 Requesting Physician: Alex Ford MD Primary Care Provider: UNKNOWN,DOCTOR Consult Narrative Reason for consult: Malfunctioning tunneled hemodialysis catheter Narrative: Cathy Greene is a 64 year old female admitted through the emergency room to the floor with UTI and end-stage renal disease with a tunneled right IJ vein hemodialysis catheter which is functioning and clotted. She had a partial hemodialysis treatment apparently 3 days ago. She has in the past no almost for [facility] and the [facility] area where she had this catheter placed. It is unclear patient cannot tell me whether a surgeon placed the catheter or interventional radiologist placed a catheter. She has never had any attempts of placing a tunnel catheter here at this institution. She currently not appear to be fluid overloaded. She has super morbid obesity with a BMI 58.4. She also has congestive heart failure and apparently a renal cell tumor and has not been treated. Review of Systems 2 Review of Systems: The remainder of the review of systems to include constitutional, HEENT, cardiovascular, respiratory, GI, , integumentary, musculoskeletal, endocrine, immunologic, hematologic, psychiatric, and neurologic are all negative except for which is mentioned above in the HPI. [facility] Past Medical History Medical History (Updated 01/13/25 @ 18:44 by Hilario Argueta MD) Seizure disorder Immobility Rheumatoid arthritis PAF (paroxysmal atrial fibrillation) Fibromyalgia Gout Obesity hypoventilation syndrome SHELDON (obstructive sleep apnea) Chronic respiratory failure with hypoxia Atrial fibrillation COPD (chronic obstructive pulmonary disease) Diastolic heart failure Bipolar 1 disorder Anxiety and depression Left renal mass suspected malignancy Nephrolithiasis End stage renal disease ESRD on dialysis CHF (congestive heart failure) HTN (hypertension) COPD (chronic obstructive pulmonary disease) Surgical History Surgical History (Updated 01/12/25 @ 20:14 by Rosalio Calix MD) History of cystoscopy S/P ureteral reimplantation History of hysterectomy S/P hemodialysis catheter insertion Family History Family History (System 06/03/22 @ 11:30 by Ansley Richard) Father Lung cancer Grandparent Colon cancer Mother Congestive heart failure Social History Social History (System 06/03/22 @ 11:30 by Ansley Richard) Smoking packs per day: 0.5 Smoking cigarettes per day: 10.0 Years smoked: 10 Smoking pack-years: 5.00 Smoking status: Former smoker Tobacco type: cigarettes and pipe Second hand tobacco smoke exposure: Yes Alcohol intake: never Substance use: never Substance use type: marijuana Last use: 06/13/21 Do You Feel Safe in your Home?: Yes Lack of Transportation: No Lack of Food: Never True Current Housing: I Have Housing Concerned About Future Housing: No Difficulty Paying Gas/Electric Bills: No Difficulty Paying for Meds: No Currently Unemployed: No Education: High School Diploma/GED Difficulty w/ Childcare or Family Care: No Gender identity (if verbalized by the patient): Female Sexual Orientation (if Verbalized by the Patient): Straight or Heterosexual Spiritual care concerns: No Meds Home Medications and Allergies Home Medications ?Medication ?Instructions ?Recorded ?Confirmed ?Type amlodipine 5 mg tablet (Norvasc) 10 mg PO QHS 06/30/21 01/13/25 History atorvastatin 40 mg tablet 40 mg PO QHS 06/30/21 01/13/25 History ferrous sulfate 325 mg (65 mg 325 mg PO DAILY 06/30/21 01/13/25 History iron) tablet fluticasone propionate 50 1 spray intranasal DAILY 06/30/21 01/13/25 History mcg/actuation nasal spray,suspension hydrocodone 5 mg-acetaminophen 325 1 tablet PO Q8H PRN Pain Rated 4-6 06/30/21 01/13/25 History mg tablet levetiracetam 500 mg tablet 500 mg PO BID 06/30/21 01/13/25 History acetaminophen 325 mg tablet 650 mg PO Q6H PRN fever or pain 01/13/25 01/13/25 History (Aminofen) albuterol 90 mcg-budesonide 80 2 inh inhalation 6XD PRN shortness 01/13/25 01/13/25 History mcg/actuation HFA aerosol inhaler of breath (Airsupra) alprazolam 0.5 mg tablet 0.5 mg PO BID PRN anxiety 01/13/25 01/13/25 History baclofen 5 mg tablet 5 mg PO Q12H 01/13/25 01/13/25 History cholecalciferol (vitamin D3) 50 2,000 unit PO DAILY 01/13/25 01/13/25 History mcg (2,000 unit) capsule diclofenac sodium 1 % topical gel 1 ea topical Q6H PRN pain 01/13/25 01/13/25 History (Arthritis Pain (diclofenac)) diltiazem HCl 90 mg tablet 90 mg PO DAILY 01/13/25 01/13/25 History diphenhydramine HCl 25 mg capsule 50 mg PO Q8H PRN allergy symptoms 01/13/25 01/13/25 History (Aler-Cap) ergocalciferol (vitamin D2) 1,250 1,250 mcg PO WEEKLY 01/13/25 01/13/25 History mcg (50,000 unit) capsule escitalopram oxalate 10 mg tablet 10 mg PO DAILY 01/13/25 01/13/25 History folic acid 1 mg tablet 5 mg PO DAILY 01/13/25 01/13/25 History furosemide 40 mg tablet 40 mg PO DAILY 01/13/25 01/13/25 History hydroxyzine HCl 25 mg tablet 25 mg PO TID 01/13/25 01/13/25 History ipratropium 0.5 mg-albuterol 3 mg 3 ml inhalation Q2H PRN shortness 01/13/25 01/13/25 History (2.5 mg base)/3 mL nebulization of breath soln lactulose 10 gram/15 mL oral 30 g PO DAILY 01/13/25 01/13/25 History solution (Enulose) Allergies Allergy/AdvReac Type Severity Reaction Status Date / Time Penicillins Allergy Unknown Verified 06/03/22 11:30 Vital Signs Vital Signs - 24 hr 01/12/25 20:00 01/12/25 20:22 01/12/25 22:40 Temperature 36.5 C Pulse Rate 74 74 Respiratory Rate 20 20 Blood Pressure 124/48 L Pulse Oximetry 100 100 99 Oxygen Delivery Nasal Cannula Nasal Cannula Oxygen Flow Rate 2 2 01/12/25 22:40 01/13/25 02:59 01/13/25 08:00 Temperature 36.5 C Pulse Rate 74 75 Respiratory Rate 14 20 Blood Pressure 130/50 L Pulse Oximetry 99 96 96 Oxygen Delivery Autopap Nasal Cannula Oxygen Flow Rate 2 01/13/25 12:27 01/13/25 12:44 01/13/25 13:43 Temperature 36.6 C 36.6 C 36.7 C Pulse Rate 73 72 18 L Respiratory Rate 18 18 73 H Blood Pressure 110/39 L 100/35 L 110/40 L Pulse Oximetry 100 99 100 Oxygen Delivery Oxygen Flow Rate 01/13/25 13:47 01/13/25 13:47 01/13/25 15:07 Temperature 36.5 C 36.5 C 36.7 C Pulse Rate 80 80 71 Respiratory Rate 20 20 18 Blood Pressure 120/44 L 120/44 L 110/41 L Pulse Oximetry 100 100 100 Oxygen Delivery Oxygen Flow Rate Exam 2 Const: General: comfortable and no acute distress HENMT: Ears: TM's normal bilaterally Face/Nose/Sinus: Normal nares present Mouth: Yes moist mucous membranes Eyes: General: appearance normal, both eyes and all related structures S clera: sclerae normal Pupils: Equal, round and reactive pupils present E OM: EOMs intact bilaterally Neck: Neck: supple and no JVD Other: Right internal jugular vein tunneled hemodialysis catheter in place. Tunneled to the right upper anterior chest. No redness around the catheter insertion site and no drainage. Resp: Effort & Inspection: normal respiratory effort Auscultation: clear to auscultation bilaterally Cardio: Rate: regular rate Rhythm: abnormal rhythm (Atrial fibrillation) GI: GI Palp: Yes Soft to palpation, No Firmness to palpation present (GI), No Tenderness to palpation present (GI), No Guarding due to palpation present (GI) and No Hernia present Other: Super morbidly obese abdomen benign to palpation Neuro: Sensory Exam: normal sensation Psych: Mental Status: mental status grossly normal Results Labs 01/13/25 10:42 01/13/25 04:48 Labs: Short CBC 01/13/25 01/13/25 Range/Units 04:48 10:42 WBC 6.5 (4.5-10.0) K/mm3 Hgb 6.9 L* 6.6 L* (12.0-15.0) g/dL Hct 22.1 L 21.4 L (37.0-47.0) % Plt Count 177 (150-375) k/mm3 [facility] 01/13/25 04:48 Sodium 138 Potassium 4.8 Chloride 97 L Carbon Dioxide 27 BUN 63 H Creatinine 5.97 H Glucose 139 H Calcium 9.3 Liver Function 01/13/25 Range/Units 04:48 Total Bilirubin 0.3 (0.2-1.3) mg/dL AST 19 (14-36) U/L ALT 13 (6-35) U/L Alkaline Phosphatase 85 (38-126) U/L Albumin 3.6 (3.5-5.1) g/dL
[2025-01-13] MEDS: FLUTICASONE/SALMETEROL 115-21 MCG INHALER 1 PUFF 2 PUFF INHALATION (20:14)
[2025-01-13 20:22] LABS: Glucose Point of Care 142 mg/dl (65-105)
[2025-01-13] MEDS: ATORVASTATIN 40 MG TABLET PO (21:11)
[2025-01-14 03:48] VITALS: RESP 14
[2025-01-14 05:03] LABS: Basophils Percent Auto 0.2 % (0.2-1.2); Hematocrit 23.6 % (37.0-47.0); Hemoglobin 7.3 g/dL (12.0-15.0); Immature Granulocyte Absolute 0.09 K/mm3 (0.00-0.031); Immature Granulocyte Percent A 1.9 % (0-0.5); Lymphocytes Absolute Auto 0.58 K/mm3 (0.9-3.2); Mean Corpuscular HGB Conc 30.9 g/dl (32-36); Mean Corpuscular Hemoglobin 29.2 pg (26-34); Mean Corpuscular Volume 94.4 fl (80-100); Mean Platelet Volume 8.8 fl (7.4-10.4); Monocytes Absolute Auto 0.4 K/mm3 (0.1-0.6); Monocytes Percent Auto 8.5 % (2.6-8.5); Neutrophils Absolute Auto 3.7 K/mm3 (1.3-6.7); Neutrophils Percent Auto 77.4 % (45.5-73.1); Platelet Count Result 178 k/mm3 (150-375); Red Cell Distribution Width 14.1 % (11.5-14.5); White Blood Count 4.8 K/mm3 (4.5-10.0)
[2025-01-14 05:20] LABS: Alanine Aminotransferase 12 U/L (6-35); Albumin Level 3.5 g/dL (3.5-5.1); Alkaline Phosphatase 90 U/L (38-126); Anion Gap 14 mmol/L (4-12); Aspartate Amino Transferase 14 U/L (14-36); Bilirubin,Total 0.2 mg/dL (0.2-1.3); Blood Urea Nitrogen 74 mg/dL (7-17); Calcium 8.8 mg/dL (8.4-10.2); Carbon Dioxide 26 mmol/L (22-30); Chloride 99 mmol/L (98-107); Estimated CRCL calculation 13 ml/min; Estimated Glomerular Filt Rate 6; Glucose 157 mg/dL (65-110); Magnesium 2.1 mg/dL (1.6-2.3); Potassium 4.6 mmol/L (3.4-5.0); Sodium 139 mmol/L (137-145)
[2025-01-14] MEDS: HYDROcodone/acetaminophen (*CRX) 5-325 MG TABLET 1 TAB PO (05:59)
[2025-01-14 06:00] VITALS: BP 104/49; PULSE 75; RESP 18; TEMP 36.5; O2SAT 91
[2025-01-14] MEDS: diphenhydrAMINE HCl CAP 25 MG CAPSULE 50 MG PO (06:00)
[2025-01-14] MEDS: FLUTICASONE/SALMETEROL 115-21 MCG INHALER 1 PUFF 2 PUFF INHALATION (07:21)
[2025-01-14 07:24] VITALS: O2SAT 99
[2025-01-14] MEDS: DOXYCYCLINE 100 MG/NS 100 ML 100 MG/100 ML BAG IVPB (07:57)
[2025-01-14] MEDS: MUPIROCIN 2% OINT 22 GM TUBE 1 APPLIC EACH NARE (07:58)
[2025-01-14] MEDS: ESCITALOPRAM OXALATE 10 MG TABLET PO (07:58)
[2025-01-14] MEDS: FUROSEMIDE 40 MG TABLET PO (07:58)
[2025-01-14] MEDS: ALPRAZolam (*CRX) 0.5 MG TABLET PO (07:58)
[2025-01-14] MEDS: levETIRAcetam 500 MG TABLET PO (07:58)
[2025-01-14 08:00] VITALS: O2SAT 96
--- NOTE | 2025-01-14 08:13 | PC.NURSE ---
Spoke with Glenis, with [facility] Transport Team, regarding transfer to [facility]. Telephone triage performed.
[2025-01-14 08:21] LABS: Glucose Point of Care 151 mg/dl (65-105)
--- NOTE | 2025-01-14 08:55 | PC.NURSE ---
Telephone report given to Andrea Walker RN.
--- NOTE | 2025-01-14 09:03 | P.PN_ITS ---
Progress Note: A&P Assessment and Plan (1) Hemodialysis catheter dysfunction: Code(s): T82.41XA - Breakdown (mechanical) of vascular dialysis catheter, initial encounter Status: Acute Assessment and Plan: Patient needs new hemodialysis access with a new tunneled hemodialysis catheter. She is going to be transferred to [facility] for further management to get dialysis access as there are concerns that she cannot be managed adequately at [facility] and that she should be managed by vascular surgeon or interventional radiologist to try to place another tunneled hemodialysis catheter in this difficult patient. (2) Acute UTI: Code(s): N39.0 - Urinary tract infection, site not specified Status: Acute Assessment and Plan: Management Hospital Service. On IV antibiotics. Subjective Date/time seen: 01/14/25 09:03 Interval history: Patient remained clinically stable overnight. Apparently arrangements have been made for the patient be transferred to [facility] to address placing another tunneled hemodialysis catheter. Exam Const: General: comfortable and no acute distress Neck: Other: Right IJ tunneled hemodialysis catheter in place. No redness around the catheter. Objective Data Vital Signs Vital Signs: Vital Signs - 24 hr 01/13/25 12:27 01/13/25 12:44 01/13/25 13:43 Temperature 36.6 C 36.6 C 36.7 C Pulse Rate 73 72 18 L Respiratory Rate 18 18 73 H Blood Pressure 110/39 L 100/35 L 110/40 L Pulse Oximetry 100 99 100 Oxygen Delivery Oxygen Flow Rate 01/13/25 13:47 01/13/25 13:47 01/13/25 15:07 Temperature 36.5 C 36.5 C 36.7 C Pulse Rate 80 80 71 Respiratory Rate 20 20 18 Blood Pressure 120/44 L 120/44 L 110/41 L Pulse Oximetry 100 100 100 Oxygen Delivery Oxygen Flow Rate 01/13/25 20:00 01/13/25 22:00 01/13/25 22:15 Temperature 36.9 C Pulse Rate 77 Respiratory Rate 18 15 Blood Pressure 112/40 L Pulse Oximetry 98 99 98 Oxygen Delivery Nasal Cannula BiPAP Oxygen Flow Rate 2 01/13/25 22:49 01/14/25 03:48 01/14/25 06:00 Temperature 36.5 C Pulse Rate 75 Respiratory Rate 15 14 18 Blood Pressure 104/49 L Pulse Oximetry 91 Oxygen Delivery BiPAP BiPAP Oxygen Flow Rate 01/14/25 07:24 01/14/25 08:00 Temperature Pulse Rate Respiratory Rate Blood Pressure Pulse Oximetry 99 96 Oxygen Delivery Nasal Cannula Nasal Cannula Oxygen Flow Rate 2 2 Intake/Output Intake/Output: Intake & Output 01/11/25 01/12/25 01/13/25 01/14/25 23:59 23:59 23:59 23:59 Intake Total 1670 100 Output Total 75 500 600 Balance -75 1170 -500 Meds/Results Medications: Active Medications Generic Name Dose Route Start Last Admin Trade Name Freq PRN Reason Stop Dose Admin Acetaminophen 650 mg 01/12/25 18:12 01/13/25 07:35 Acetaminophen 325 Mg Tablet PO 650 mg Q4H PRN Administration Mild Pain (1-3) or Fever Hydrocodone Bitart/Acetaminophen 1 tab 01/13/25 14:22 01/14/25 05:59 Hydrocodone/Acetaminophen (*Crx) 5-325 Mg Tablet PO 1 tab Q8H PRN Administration Pain Rated 4-6 Alprazolam 0.5 mg 01/13/25 14:22 01/14/25 07:58 Alprazolam (*Crx) 0.5 Mg Tablet PO 0.5 mg BID PRN Administration anxiety Atorvastatin Calcium 40 mg 01/13/25 21:00 01/13/25 21:11 Atorvastatin 40 Mg Tablet PO 40 mg QHS MARLEEN Administration Diphenhydramine HCl 50 mg 01/13/25 18:52 01/14/25 06:00 Diphenhydramine Hcl Cap 25 Mg Capsule PO 50 mg Q8H PRN Administration Itching Escitalopram Oxalate 10 mg 01/14/25 09:00 01/14/25 07:58 Escitalopram Oxalate 10 Mg Tablet PO 10 mg DAILY MARLEEN Administration Furosemide 40 mg 01/14/25 09:00 01/14/25 07:58 Furosemide 40 Mg Tablet PO 40 mg DAILY MARLEEN Administration Ceftriaxone Sodium 1 gm in 50 mls @ 100 mls/hr 01/13/25 17:00 01/13/25 17:00 Rocephin 1 Gm/Ns 50 Ml IVPB Infused Q24H MARLEEN Infusion Doxycycline Hyclate 100 mg in 100 mls @ 100 mls/hr 01/13/25 10:00 01/14/25 08:55 Vibramycin 100 Mg/Ns 100 Ml IVPB Infused Q12HR MARLEEN Infusion Levetiracetam 500 mg 01/13/25 14:25 01/14/25 07:58 Levetiracetam 500 Mg Tablet PO 500 mg Q12HR MARLEEN Administration Mupirocin 1 applic 01/13/25 09:00 01/14/25 07:58 Mupirocin 2% Oint 22 Gm Tube EACH NARE 01/17/25 21:01 1 applic Q12HR MARLEEN Administration Non-Formulary Medication 2 inhalation 01/13/25 14:22 Albuterol-Budesonide [Airsupra] INHALATION 6XD PRN shortness of breath Ondansetron HCl 4 mg 01/12/25 18:12 Ondansetron Inj 4 Mg/2 Ml Vial IV PUSH Q6H PRN Nausea And Vomiting Fluticasone/Salmeterol 2 puff 01/13/25 20:00 01/14/25 07:21 Fluticasone/Salmeterol 115-21 Mcg Inhaler 1 Puff INHALATION 2 puff Q12HRT MARLEEN Administration Radiology Results: ITS Impressions Chest X-Ray 01/12/25 12:47 IMPRESSION: 1. Opacities at the lateral left mid to lower lung zone which could represent prominent paracardial fat pad, atelectasis, pneumonia or some combination thereof. 2. Cardiomegaly with pulmonary vascular congestion. 3. Evaluation somewhat limited by patient body habitus. Labs Labs: Laboratory Results - last 24 hr 01/12/25 01/13/25 01/13/25 12:57 10:42 11:52 WBC RBC Hgb 6.6 L* Hct 21.4 L MCV MCH MCHC RDW Plt Count MPV Immature Gran % (Auto) Neut % (Auto) Lymph % (Auto) [place] % (Auto) Eos % (Auto) Baso % (Auto) Lymph # (Auto) [place] # (Auto) Eos # (Auto) Baso # (Auto) Abs Immat Gran (auto) Absolute Neuts (auto) Absolute Nucleated RBC Nucleated RBC % Sodium Potassium Chloride Carbon Dioxide Anion Gap BUN Creatinine Estim Creat Clear Calc Estimated GFR Glucose POC Capillary Glucose 137 H Calcium Magnesium Total Bilirubin AST ALT Alkaline Phosphatase Total Protein Albumin Blood Type O Positive Antibody Screen Negative Crossmatch See Detail 01/13/25 01/13/25 01/14/25 17:03 20:17 04:44 WBC 4.8 RBC 2.50 L Hgb 7.3 L Hct 23.6 L MCV 94.4 MCH 29.2 MCHC 30.9 L RDW 14.1 Plt Count 178 MPV 8.8 Immature Gran % (Auto) 1.9 H Neut % (Auto) 77.4 H Lymph % (Auto) 12.0 L [place] % (Auto) 8.5 Eos % (Auto) 0.0 Baso % (Auto) 0.2 Lymph # (Auto) 0.58 L [place] # (Auto) 0.4 Eos # (Auto) 0.0 Baso # (Auto) 0.0 Abs Immat Gran (auto) 0.09 H Absolute Neuts (auto) 3.7 Absolute Nucleated RBC 0.000 Nucleated RBC % 0.0 Sodium 139 Potassium 4.6 Chloride 99 Carbon Dioxide 26 Anion Gap 14 H BUN 74 H D Creatinine 6.52 H Estim Creat Clear Calc 13 Estimated GFR 6 L Glucose 157 H POC Capillary Glucose 122 H 142 H Calcium 8.8 Magnesium 2.1 Total Bilirubin 0.2 AST 14 ALT 12 Alkaline Phosphatase 90 Total Protein 6.0 L Albumin 3.5 Blood Type Antibody Screen Crossmatch 01/14/25 08:19 WBC RBC Hgb Hct MCV MCH MCHC RDW Plt Count MPV Immature Gran % (Auto) Neut % (Auto) Lymph % (Auto) [place] % (Auto) Eos % (Auto) Baso % (Auto) Lymph # (Auto) [place] # (Auto) Eos # (Auto) Baso # (Auto) Abs Immat Gran (auto) Absolute Neuts (auto) Absolute Nucleated RBC Nucleated RBC % Sodium Potassium Chloride Carbon Dioxide Anion Gap BUN Creatinine Estim Creat Clear Calc Estimated GFR Glucose POC Capillary Glucose 151 H Calcium Magnesium Total Bilirubin AST ALT Alkaline Phosphatase Total Protein Albumin Blood Type Antibody Screen Crossmatch
--- NOTE | 2025-01-14 09:10 | P.TS_ITS ---
Transfer Discharge Sum: Prov Provider Date of admission: 01/13/25 09:41 Primary care physician: UNKNOWN,DOCTOR Admitting clinician: Alex Ford MD Consults: 01/12/25 Consult to Physician Routine Comment: Consulting Provider: Rosalio Calix Reason for consultation: Dialysis catheter issue Has provider been notified: Yes Consult to Physician Routine Comment: Consulting Provider: Hilario Argueta Reason for consultation: Potential dialysis catheter placement Has provider been notified: Yes DS: Admitting Diagnosis Discharge Date 01/14/25 Admitting Diagnosis Dialysis Access Problem, Lethargy DS: Discharge Diagnosis Discharge Diagnosis (1) Dialysis AV fistula malfunction: Qualifiers: Encounter type: initial encounter Qualified Code(s): T82.590A - Other mechanical complication of surgically created arteriovenous fistula, initial encounter Code(s): T82.590A - Other mechanical complication of surgically created arteriovenous fistula, initial encounter Status: Acute Transfer Discharge Sum: Med Medications Active and Home Medications: Home Medications amlodipine 5 mg tablet (Norvasc) 10 mg PO QHS 06/30/21 [History Confirmed 01/13/25] atorvastatin 40 mg tablet 40 mg PO QHS 06/30/21 [History Confirmed 01/13/25] ferrous sulfate 325 mg (65 mg iron) tablet 325 mg PO DAILY 06/30/21 [History Confirmed 01/13/25] fluticasone propionate 50 mcg/actuation nasal spray,suspension 1 spray intranasal DAILY 06/30/21 [History Confirmed 01/13/25] hydrocodone 5 mg-acetaminophen 325 mg tablet 1 tablet PO Q8H PRN Pain Rated 4-6 06/30/21 [History Confirmed 01/13/25] levetiracetam 500 mg tablet 500 mg PO BID 06/30/21 [History Confirmed 01/13/25] acetaminophen 325 mg tablet (Aminofen) 650 mg PO Q6H PRN fever or pain 01/13/25 [History Confirmed 01/13/25] albuterol 90 mcg-budesonide 80 mcg/actuation HFA aerosol inhaler (Airsupra) 2 inh inhalation 6XD PRN shortness of breath 01/13/25 [History Confirmed 01/13/25] alprazolam 0.5 mg tablet 0.5 mg PO BID PRN anxiety 01/13/25 [History Confirmed 01/13/25] baclofen 5 mg tablet 5 mg PO Q12H 01/13/25 [History Confirmed 01/13/25] cholecalciferol (vitamin D3) 50 mcg (2,000 unit) capsule 2,000 unit PO DAILY 01/13/25 [History Confirmed 01/13/25] diclofenac sodium 1 % topical gel (Arthritis Pain (diclofenac)) 1 ea topical Q6H PRN pain 01/13/25 [History Confirmed 01/13/25] diltiazem HCl 90 mg tablet 90 mg PO DAILY 01/13/25 [History Confirmed 01/13/25] diphenhydramine HCl 25 mg capsule (Aler-Cap) 50 mg PO Q8H PRN allergy symptoms 01/13/25 [History Confirmed 01/13/25] ergocalciferol (vitamin D2) 1,250 mcg (50,000 unit) capsule 1,250 mcg PO WEEKLY 01/13/25 [History Confirmed 01/13/25] escitalopram oxalate 10 mg tablet 10 mg PO DAILY 01/13/25 [History Confirmed 01/13/25] folic acid 1 mg tablet 5 mg PO DAILY 01/13/25 [History Confirmed 01/13/25] furosemide 40 mg tablet 40 mg PO DAILY 01/13/25 [History Confirmed 01/13/25] hydroxyzine HCl 25 mg tablet 25 mg PO TID 01/13/25 [History Confirmed 01/13/25] ipratropium 0.5 mg-albuterol 3 mg (2.5 mg base)/3 mL nebulization soln 3 ml inhalation Q2H PRN shortness of breath 01/13/25 [History Confirmed 01/13/25] lactulose 10 gram/15 mL oral solution (Enulose) 30 g PO DAILY 01/13/25 [History Confirmed 01/13/25] Active Medications Acetaminophen (Acetaminophen 325 Mg Tablet) 650 mg PO Q4H PRN PRN Reason: Mild Pain (1-3) or Fever Last Admin: 01/13/25 07:35 Dose: 650 mg Hydrocodone Bitart/Acetaminophen (Hydrocodone/Acetaminophen (*Crx) 5-325 Mg Tablet) 1 tab PO Q8H PRN PRN Reason: Pain Rated 4-6 Last Admin: 01/14/25 05:59 Dose: 1 tab Alprazolam (Alprazolam (*Crx) 0.5 Mg Tablet) 0.5 mg PO BID PRN PRN Reason: anxiety Last Admin: 01/14/25 07:58 Dose: 0.5 mg Atorvastatin Calcium (Atorvastatin 40 Mg Tablet) 40 mg PO QHS [facility] Last Admin: 01/13/25 21:11 Dose: 40 mg Diphenhydramine HCl (Diphenhydramine Hcl Cap 25 Mg Capsule) 50 mg PO Q8H PRN PRN Reason: Itching Last Admin: 01/14/25 06:00 Dose: 50 mg Escitalopram Oxalate (Escitalopram Oxalate 10 Mg Tablet) 10 mg PO DAILY [facility] Last Admin: 01/14/25 07:58 Dose: 10 mg Furosemide (Furosemide 40 Mg Tablet) 40 mg PO DAILY [facility] Last Admin: 01/14/25 07:58 Dose: 40 mg Ceftriaxone Sodium (Rocephin 1 Gm/Ns 50 Ml) 1 gm in 50 mls @ 100 mls/hr IVPB Q24H [facility] Last Infusion: 01/13/25 17:00 Dose: Infused Doxycycline Hyclate (Vibramycin 100 Mg/Ns 100 Ml) 100 mg in 100 mls @ 100 mls/hr IVPB Q12HR [facility] Last Infusion: 01/14/25 08:55 Dose: Infused Levetiracetam (Levetiracetam 500 Mg Tablet) 500 mg PO Q12HR [facility] Last Admin: 01/14/25 07:58 Dose: 500 mg Mupirocin (Mupirocin 2% Oint 22 Gm Tube) 1 applic EACH NARE Q12HR [facility] Stop: 01/17/25 21:01 Last Admin: 01/14/25 07:58 Dose: 1 applic Non-Formulary Medication (Albuterol-Budesonide [Airsupra]) 2 inhalation INHALATION 6XD PRN PRN Reason: shortness of breath Ondansetron HCl (Ondansetron Inj 4 Mg/2 Ml Vial) 4 mg IV PUSH Q6H PRN PRN Reason: Nausea And Vomiting Fluticasone/Salmeterol (Fluticasone/Salmeterol 115-21 Mcg Inhaler 1 Puff) 2 puff INHALATION Q12HRT [facility] Last Admin: 01/14/25 07:21 Dose: 2 puff Transfer Discharge Sum: Hosp Hospital Course Hospital course: Cathy Greene is a 64 year old female with PMH of ESRD on HD (MWF), bedbound, CHF, HTN, AFib, and COPD presents here with dialysis access issue and lethargy. The patient presents here from [facility] for further evaluation of her dialysis access. It has reportedly not been functioning over the last week. The patient's last full dialysis treatment was on 12/15. Was able to do a partial treatment on 01/10. Patient additionally reporting increased lethargy and urinary symptoms. Patient believe she was sent to the ER due to anemia. Initial VS at presentation: 98? F, HR 66, R 18, 107/44, and 98% on 2L NC. ED workup showed: No leukocytosis, hemoglobin 7.9 (previously 9.4 in 2020), normal coags, creatinine 5.32 and GFR 8, glucose 140, and UA suggestive of UTI. CXR showed opacities in the lateral left mid to lower lung zones which could represent prominent pericardial fat pad, atelectasis, pneumonia, or some combination there of, cardiomegaly with pulmonary vascular congestion, evaluation somewhat limited due to body habitus. Patient was started on Rocephin and Doxycycline for pneumonia and UTI. Urine culture positive E coli, Blood culture negative so far. GEn surgery evaluated and noted that due to obesity and body habitus changing hemodialysis catheter will be very difficult at our center and recommended transfer to a facility that has vascular and IR. [facility] was called and [facility] accepted and patient was transferred. Patient was stable on transfer conitnue follow up per providers at higher level of care facility. Time Spent with Patient Time attestation: Total time spent providing and/or coordinating transfer services: DS: Data Data Completed and Pending Labs on day of discharge: Labs from last 24 hours 01/14/25 01/14/25 01/13/25 08:19 04:44 20:17 WBC 4.8 RBC 2.50 L Hgb 7.3 L Hct 23.6 L MCV 94.4 MCH 29.2 MCHC 30.9 L RDW 14.1 Plt Count 178 MPV 8.8 Immature Gran % (Auto) 1.9 H Neut % (Auto) 77.4 H Lymph % (Auto) 12.0 L [place] % (Auto) 8.5 Eos % (Auto) 0.0 Baso % (Auto) 0.2 Lymph # (Auto) 0.58 L [place] # (Auto) 0.4 Eos # (Auto) 0.0 Baso # (Auto) 0.0 Abs Immat Gran (auto) 0.09 H Absolute Neuts (auto) 3.7 Absolute Nucleated RBC 0.000 Nucleated RBC % 0.0 Sodium 139 Potassium 4.6 Chloride 99 Carbon Dioxide 26 Anion Gap 14 H BUN 74 H D Creatinine 6.52 H Estim Creat Clear Calc 13 Estimated GFR 6 L Glucose 157 H POC Capillary Glucose 151 H 142 H Calcium 8.8 Magnesium 2.1 Total Bilirubin 0.2 AST 14 ALT 12 Alkaline Phosphatase 90 Total Protein 6.0 L Albumin 3.5 Blood Type Antibody Screen Crossmatch 01/13/25 01/13/25 01/13/25 17:03 11:52 10:42 WBC RBC Hgb 6.6 L* Hct 21.4 L MCV MCH MCHC RDW Plt Count MPV Immature Gran % (Auto) Neut % (Auto) Lymph % (Auto) [place] % (Auto) Eos % (Auto) Baso % (Auto) Lymph # (Auto) [place] # (Auto) Eos # (Auto) Baso # (Auto) Abs Immat Gran (auto) Absolute Neuts (auto) Absolute Nucleated RBC Nucleated RBC % Sodium Potassium Chloride Carbon Dioxide Anion Gap BUN Creatinine Estim Creat Clear Calc Estimated GFR Glucose POC Capillary Glucose 122 H 137 H Calcium Magnesium Total Bilirubin AST ALT Alkaline Phosphatase Total Protein Albumin Blood Type Antibody Screen Crossmatch 01/12/25 12:57 WBC RBC Hgb Hct MCV MCH MCHC RDW Plt Count MPV Immature Gran % (Auto) Neut % (Auto) Lymph % (Auto) [place] % (Auto) Eos % (Auto) Baso % (Auto) Lymph # (Auto) [place] # (Auto) Eos # (Auto) Baso # (Auto) Abs Immat Gran (auto) Absolute Neuts (auto) Absolute Nucleated RBC Nucleated RBC % Sodium Potassium Chloride Carbon Dioxide Anion Gap BUN Creatinine Estim Creat Clear Calc Estimated GFR Glucose POC Capillary Glucose Calcium Magnesium Total Bilirubin AST ALT Alkaline Phosphatase Total Protein Albumin Blood Type O Positive Antibody Screen Negative Crossmatch See Detail Preliminary micro results at discharge 01/12/25 15:01 Urine Culture - Preliminary Urine Clean Catch Escherichia Coli
== END 2025-01-14 11:00 | disposition short-term general hospital (02) | DRG 698 ==
LOC: ANHED 15:50 → ANH2MED 17:04
PROVIDERS: Internal Medicine Nephrology; Physician Assistant; Student in an Organized Health Care Education/Training Program; Admitting Provider Internal Medicine; Emergency Provider Emergency Medicine; Visit Provider Internal Medicine
DX: T82.41XA Breakdown (mechanical) of vascular dialysis catheter, initial encounter (principal); N18.6 End stage renal disease; N39.0 Urinary tract infection, site not specified; I13.2 Hypertensive heart and chronic kidney disease with heart failure and with stage 5 chronic kidney disease, or end stage renal disease; C64.9 Malignant neoplasm of unspecified kidney, except renal pelvis; J96.11 Chronic respiratory failure with hypoxia; I50.32 Chronic diastolic (congestive) heart failure; Z68.43 Body mass index [BMI] 50.0-59.9, adult; Z99.2 Dependence on renal dialysis; B96.20 Unspecified Escherichia coli [E. coli] as the cause of diseases classified elsewhere; D63.1 Anemia in chronic kidney disease; E66.01 Morbid (severe) obesity due to excess calories; F41.8 Other specified anxiety disorders; G40.909 Epilepsy, unspecified, not intractable, without status epilepticus; G47.33 Obstructive sleep apnea (adult) (pediatric); I48.0 Paroxysmal atrial fibrillation; J44.9 Chronic obstructive pulmonary disease, unspecified; M10.9 Gout, unspecified; M06.9 Rheumatoid arthritis, unspecified; R41.0 Disorientation, unspecified; Z87.891 Personal history of nicotine dependence; Z74.01 Bed confinement status; Z20.822 Contact with and (suspected) exposure to COVID-19; Z79.01 Long term (current) use of anticoagulants
CPT/HCPCS: 36415; 36430; 71045; 80053; 81001; 82607; 82728; 82746; 82948; 83540; 83550; 83735; 84100; 84443; 85014; 85018; 85025; 85610; 85730; 86706; 86850; 86900; 86901; 86923; 87086; 87186; 87340; 87637; 87641; 94640; 96365; 96375; 99285; A9270; G0378; J0696; J7050; P9016; Q5105

== ENCOUNTER 2025-04-06 09:15 | Inpatient (IN) | payer MEDICARE, SELFPAY ==
[2025-04-06] VITALS (35 sets, daily range): BP systolic 89–148; BP diastolic 41–91; PULSE 64–85; RESP 15–30; TEMP 36.6–37.2; O2SAT 93–100; BMI 57.5
--- NOTE | ~2025-04-06 | US_ITS ---
EXAMINATION: US abdomen complete DATE: 04/08/2025 16:35 INDICATION: Liver diease rule out TECHNIQUE: Multiple grayscale and Doppler ultrasound images of the abdomen were obtained. COMPARISON: None available. FINDINGS: Limited visualization due to body habitus, bowel gas, and patient mobility. The pancreas is poorly visualized. The liver parenchyma is incompletely visualized. The liver measures 18.5 cm. No s urface nodularity. Normal hepatopetal flow in the main portal vein. The gallbladder is normal size, w ithout wall thickening or pericholecystic fluid. Irregular intraluminal echogenic material and hypere chogenic foci. The common bile duct measures 4 mm. There was no sonographic Interiano sign. The aorta an d IVC are poorly visualized. The right kidney measures 10.7 x 4.8 x 4.4 cm. The left kidney was poorly visualized The right kidney demonstrates normal parenchymal echogenicity. There is no right hydronephrosis. The spleen is poorly visualized IMPRESSION: Limited evaluation. The pancreas, spleen, and left kidney are poorly visualized. Limited parenchymal evaluation of the liver, with no surface nodularity to suggest cirrhosis. Normal size gallbladder, likely containing sludge and stones. Reviewed, dictated and finalized at location K. IMPRESSION: Limited evaluation. The pancreas, spleen, and left kidney are poorly visualized . Limited parenchymal evaluation of the liver, with no surface nodularity to sugg est cirrhosis. Normal size gallbladder, likely containing sludge and stones.
--- NOTE | ~2025-04-06 | XR_ITS ---
XR chest 1V portable 04/06/2025 12:16 Indication: Shortness of breath Procedure: AP portable chest Comparison: Comparison to multiple prior studies sequentially, with oldest reviewed study dated 06/13. Findings: Study limited by body habitus. Cardiomegaly with pulmonary edema. Dialysis catheter tips in the SVC. No significant effusion identified. No pneumothorax. Impression: 1: Cardiomegaly with pulmonary edema. Reviewed, dictated and finalized at location A. Impression: 1: Cardiomegaly with pulmonary edema.
--- NOTE | ~2025-04-06 | US_ITS ---
EXAMINATION: US venous doppler [facility] DATE: 04/07/2025 18:26 INDICATION: DVT . TECHNIQUE: Grayscale images without and with compression and Doppler images of the bilateral lower ex tremity veins were obtained. COMPARISON: None FINDINGS: The right common femoral vein, profunda (deep) femoral vein, femoral vein, popliteal vein, peroneal v ein, posterior tibial veins, and greater saphenous vein are patent. The left common femoral vein, profunda (deep) femoral vein, femoral vein, popliteal vein, peroneal v ein, posterior tibial veins, and greater saphenous vein are patent. IMPRESSION: Patent bilateral lower extremity veins. No evidence of deep venous thrombosis. Reviewed, dictated and finalized at location K.
--- NOTE | 2025-04-06 09:44 | ECG_ITS ---
Test Date: 2025-04-06 09:30:51 Measurements Intervals [place] Rate: 92 P: 268 IL: 158 QRS: 15 QRSD: 97 T: 48 QT: 360 QTc: 445 Interpretive Statements SINUS RHYTHM LOW QRS VOLTAGE IN PRECORDIAL LEADS [QRS DEFLECTION < 1.0 mV IN CHEST LEADS] NONSPECIFIC ST & T-WAVE ABNORMALITY No previous ECG available for comparison Electronically Signed On 04-07-2025 18:33:01 CDT by Nish Phelan M.D.
--- NOTE | 2025-04-06 09:46 | ED.SOB ---
HPI - SOB/Dyspnea General Chief Complaint: Shortness of Breath/Dyspnea <Rachael Agudelo MANGLE ROLL OPERATOR - Last Filed: 04/06/25 19:09> Stated Complaint: SOB <Rachael Agudelo, MANGLE ROLL OPERATOR - Last Filed: 04/06/25 19:09> History of Present Illness HPI Narrative: Patient is a 65-year-old female presents to the ER with complaints of increased shortness of breath. She is on dialysis and is usually dialyzed on Mondays, Wednesdays, and Fridays. Patient reports she has not had dialysis Wednesday. She also [facility] supposed to ?put me on BiPAP every night and they have not been doing it. Patient reports this morning she woke with significant shortness of breath. She denies any acute cough, recent fevers, wheezing, or new onset low back pain. Patient endorses chest pain, and ?pain all over. She endorses a history of hypertension, COPD, chronic kidney disease on dialysis, and diabetes. Patient reports she has recently been on antibiotics to treat a UTI. <Rachael Agudelo APRN - Last Filed: 04/06/25 19:09> Related Data Home Medications: Home Medications ?Medication ?Instructions ?Recorded ?Confirmed ?Last Taken ?Type atorvastatin 40 mg tablet 40 mg PO QHS 06/30/21 04/06/25 04/05/25 History ferrous sulfate 325 mg (65 mg 325 mg PO DAILY 06/30/21 04/06/25 04/06/25 History iron) tablet fluticasone propionate 50 1 spray intranasal DAILY 06/30/21 04/06/25 04/06/25 History mcg/actuation nasal spray,suspension hydrocodone 5 mg-acetaminophen 325 1 tablet PO Q8H PRN Pain Rated 4-6 06/30/21 04/06/25 04/06/25 History mg tablet levetiracetam 500 mg tablet 500 mg PO BID 06/30/21 04/06/25 04/06/25 History acetaminophen 325 mg tablet 650 mg PO Q6H PRN fever or pain 01/13/25 04/06/25 03/26/25 History (Aminofen) albuterol 90 mcg-budesonide 80 2 inh inhalation .q6hr PRN 01/13/25 04/06/25 03/27/25 History mcg/actuation HFA aerosol inhaler shortness of breath (Airsupra) alprazolam 0.5 mg tablet 0.5 mg PO BID PRN anxiety 01/13/25 01/13/25 Unknown History baclofen 5 mg tablet 5 mg PO BID 01/13/25 04/06/25 04/06/25 History cholecalciferol (vitamin D3) 50 2,000 unit PO DAILY 01/13/25 04/06/25 04/06/25 History mcg (2,000 unit) capsule diclofenac sodium 1 % topical gel 1 ea topical Q6H PRN pain 01/13/25 04/06/25 Unknown History (Arthritis Pain (diclofenac)) diltiazem HCl 90 mg tablet 90 mg PO DAILY 01/13/25 01/13/25 Unknown History diphenhydramine HCl 25 mg capsule 50 mg PO Q8H PRN allergy symptoms 01/13/25 01/13/25 Unknown History (Aler-Cap) ergocalciferol (vitamin D2) 1,250 1,250 mcg PO WEEKLY 01/13/25 04/06/25 03/31/25 History mcg (50,000 unit) capsule escitalopram oxalate 10 mg tablet 20 mg PO DAILY 01/13/25 04/06/25 04/06/25 History folic acid 1 mg tablet 5 mg PO DAILY 01/13/25 01/13/25 Unknown History furosemide 40 mg tablet 40 mg PO DAILY 01/13/25 01/13/25 Unknown History hydroxyzine HCl 25 mg tablet 25 mg PO TID 01/13/25 04/06/25 04/06/25 History ipratropium 0.5 mg-albuterol 3 mg 3 ml inhalation Q2H PRN shortness 01/13/25 04/06/25 03/27/25 History (2.5 mg base)/3 mL nebulization of breath soln lactulose 10 gram/15 mL oral 30 g PO DAILY 01/13/25 04/06/25 04/04/25 History solution (Enulose) gabapentin 100 mg capsule 100 mg PO BID 04/06/25 04/06/25 04/06/25 History insulin aspart U-100 100 unit/mL 1 sliding scale dose subcut 04/06/25 04/06/25 04/06/25 History (3 mL) subcutaneous pen (Novolog .before meals FlexPen U-100 Insulin aspart) midodrine 5 mg tablet 5 mg PO .COMPLEX 04/06/25 04/06/25 04/05/25 History montelukast 10 mg tablet 10 mg PO DAILY 04/06/25 04/06/25 04/06/25 History nystatin 100,000 unit/gram topical 1 applic topical BID 04/06/25 04/06/25 04/06/25 History powder ondansetron HCl 4 mg tablet 4 mg PO Q8H PRN nausea and vomiting 04/06/25 04/06/25 Unknown History oxcarbazepine 150 mg tablet 150 mg PO BID 04/06/25 04/06/25 04/06/25 History quetiapine 25 mg tablet 25 mg PO HS 04/06/25 04/06/25 04/05/25 History trazodone 50 mg tablet 50 mg PO HS 04/06/25 04/06/25 04/06/25 History <Rachael Agudelo, MANGLE ROLL OPERATOR - Last Filed: 04/06/25 19:09> Allergies/Adverse Reactions: Allergies Allergy/AdvReac Type Severity Reaction Status Date / Time Penicillins Allergy Unknown Verified 06/03/22 11:30 <Rachael Agudelo APRN - Last Filed: 04/06/25 19:09> Review of Systems Review of Systems: All systems reviewed & are unremarkable except as noted in HPI and below <Rachael Agudelo APRN - Last Filed: 04/06/25 19:09> [facility] Past Medical History Medical History: Medical History (Updated 04/06/25 @ 17:56 by Yogi Mascorro MD) Seizure disorder Immobility Rheumatoid arthritis PAF (paroxysmal atrial fibrillation) Fibromyalgia Gout Obesity hypoventilation syndrome [place] (obstructive sleep apnea) Chronic respiratory failure with hypoxia Atrial fibrillation COPD (chronic obstructive pulmonary disease) Diastolic heart failure Bipolar 1 disorder Anxiety and depression Left renal mass suspected malignancy Nephrolithiasis End stage renal disease ESRD on dialysis CHF (congestive heart failure) HTN (hypertension) COPD (chronic obstructive pulmonary disease) <Rachael Agudelo APRN - Last Filed: 04/06/25 19:09> Surgical History Surgical History: Surgical History History of cystoscopy S/P ureteral reimplantation History of hysterectomy S/P hemodialysis catheter insertion <Rachael Agudelo, MANGLE ROLL OPERATOR - Last Filed: 04/06/25 19:09> Family History Family History: Family History Father Lung cancer Grandparent Colon cancer Mother Congestive heart failure <Rachael Agudelo, MANGLE ROLL OPERATOR - Last Filed: 04/06/25 19:09> Social History Social History: Social History Smoking packs per day: 0.5 Smoking cigarettes per day: 10.0 Years smoked: 10 Smoking pack-years: 5.00 Smoking status: Former smoker Tobacco type: cigarettes and pipe Second hand tobacco smoke exposure: Yes Alcohol intake: never Substance use: never Substance use type: marijuana Last use: 06/13/21 Do You Feel Safe in your Home?: Yes Lack of Transportation: No Lack of Food: Never True Current Housing: I Have Housing Concerned About Future Housing: No Difficulty Paying Gas/Electric Bills: No Difficulty Paying for Meds: No Currently Unemployed: No Education: High School Diploma/GED Difficulty w/ Childcare or Family Care: No Gender identity (if verbalized by the patient): Female Sexual Orientation (if Verbalized by the Patient): Straight or Heterosexual Spiritual care concerns: No <Rachael Agudelo, MANGLE ROLL OPERATOR - Last Filed: 04/06/25 19:09> Exam Narrative: GENERAL: Ill appearing, morbidly obese, non-toxic, in acute respiratory distress. HEAD: Normocephalic, atraumatic. NECK: No adenopathy, no masses. RESPIRATORY: Airway patent, respirations mildly labored. Diminished to auscultation bilaterally, + rales, no rhonchi, wheezing. CARDIOVASCULAR: Regular rate and rhythm without murmurs, rubs, or gallops. Peripheral pulses 2+ and equal bilaterally. ABDOMINAL: Soft, nontender, nondistended, no hepatosplenomegaly. Normoactive BS. MUSCULOSKELETAL: Moves all extremities. Strength/ROM intact without gross deformities. SKIN: Warm, dry, normal color. [place] mildly raised rash to patient's abdomen and in creases between folds. NEURO: A&O X3. Speech clear. Cranial nerves intact. No ataxic movements. PSYCHIATRIC: Appropriate mood and affect. Normal interaction. <Rachael Agudelo, ISAIAS - Last Filed: 04/06/25 19:09> Course SCHOOL GUIDANCE COUNSELOR/PA Physician Supervision For this patient encounter, I reviewed the SCHOOL GUIDANCE COUNSELOR or PA documentation, treatment plan, and medical decision making; and I had [id number] time with this patient. Critical Care Procedure Note Authorized and Performed by: Yogi Mascorro Total critical care time: Approximately 36 minutes Due to a high probability of clinically significant, life threatening deterioration, the patient required my highest level of preparedness to intervene emergently and I personally spent this critical care time directly and personally managing the patient. This critical care time included obtaining a history; examining the patient; pulse oximetry; ordering and review of studies; arranging urgent treatment with development of a management plan; evaluation of patient's response to treatment; frequent reassessment; and, discussions with other providers. This critical care time was performed to assess and manage the high probability of imminent, life-threatening deterioration that could result in multi-organ failure. It was exclusive of separately billable procedures and treating other patients and teaching time. Please see MDM section and the rest of the note for further information on patient assessment and treatment. <Yogi Mascorro MD - Last Filed: 04/06/25 17:56> Vital Signs Vital signs: Vital Signs Pulse Rate 85 04/06/25 09:14 Respiratory Rate 15 04/06/25 09:14 Blood Pressure 148/61 H 04/06/25 09:14 Pulse Oximetry 97 04/06/25 09:14 Oxygen Delivery Nasal Cannula 04/06/25 09:14 Oxygen Flow Rate 4 04/06/25 09:14 Temperature 36.9 C 04/06/25 15:30 Pulse Rate 71 04/06/25 18:45 Respiratory Rate 24 H 04/06/25 15:30 Blood Pressure 141/63 H 04/06/25 18:45 Pulse Oximetry 93 04/06/25 15:30 Oxygen Delivery BiPAP 04/06/25 15:30 Oxygen Flow Rate 4 04/06/25 09:22 Fraction of Inspired Oxygen 24 04/06/25 15:42 <Rachael Agudelo, ISAIAS - Last Filed: 04/06/25 19:09> Vital Signs Pulse Rate 85 04/06/25 09:14 Respiratory Rate 15 04/06/25 09:14 Blood Pressure 148/61 H 04/06/25 09:14 Pulse Oximetry 97 04/06/25 09:14 Oxygen Delivery Nasal Cannula 04/06/25 09:14 Oxygen Flow Rate 4 04/06/25 09:14 Temperature 36.9 C 04/06/25 15:30 Pulse Rate 71 04/06/25 18:45 Respiratory Rate 24 H 04/06/25 15:30 Blood Pressure 141/63 H 04/06/25 18:45 Pulse Oximetry 93 04/06/25 15:30 Oxygen Delivery BiPAP 04/06/25 15:30 Oxygen Flow Rate 4 04/06/25 09:22 Fraction of Inspired Oxygen 24 04/06/25 15:42 <Yogi Mascorro MD - Last Filed: 04/06/25 17:56> MDM - SOB/Dyspnea MDM Narrative Medical decision making narrative: Patient is a 65-year-old female presents to the ER with complaints of increased shortness of breath. She is on dialysis and is usually dialyzed on Mondays, Wednesdays, and Fridays. Patient reports she has not had dialysis Wednesday. She also reports [facility] supposed to ?put me on BiPAP every night and they have not been doing it. Patient reports this morning she woke with significant shortness of breath. She denies any acute cough, recent fevers, wheezing, or new onset low back pain. Patient endorses chest pain, and ?pain all over. She endorses a history of hypertension, COPD, chronic kidney disease on dialysis, and diabetes. Patient reports she has recently been on antibiotics to treat a UTI. Labs Ordered: CBC, CMP, troponin, INR, PTT, magnesium, lactic acid, D-dimer, proBNP Imaging Ordered: Chest x-ray Medications Ordered: DuoNeb, Lasix 80mg IV Results: Patient's ABG indicates a pH of 7.119, PCO2 of 96.8, PO2 of 100.6, HC03 30.7 Diagnosis: CHF exacerbation, possible PE Consults: 1100- nephrology, Dr. Coulter, who is in agreement to consult on pt and put in orders for dialysis. 1045- Spoke [facility] Dr. Durham, who is in agreement with plan for admission. Pt will be admitted to the IMU. She is currently on BIPAP d/t her ABG results. Harry catheter placed d/t pt's immobility and her Lasix administration. Pt will also be started on a Heparin drip, as she has some risks for a PE and is too obese to fit in the CT or VQ scanner. CRITICAL CARE ADDENDUM: Indication: CHF exacerbation, shortness of breath, elevated carbon dioxide levels Time type: intermittent I provided a total of 55 minutes of critical care excluding separately billable procedures. This includes time w/ EMS, initial bedside evaluation, reviewing old records, review of testing done while under my care, discussion w/ the family, nurses, organizational research consultant and guiding the patient?s care while in the emergency department. Approximate time distribution: 15 minutes ? Initial evaluation, d/w involved parties, attempting to gather old records. 10 minutes ? Documenting medical record 10 minutes ? Review of results (EKGs, labs, imaging) 10 minutes ? Serial repeat bedside evaluation 10 minutes ? Discussing case with multiple providers Please see main chart for details. Excludes separately billable procedures. <Rachael Agudelo, MANGLE ROLL OPERATOR - Last Filed: 04/06/25 19:09> Differential Diagnosis Differential diagnosis: Likely acute exacerbation of chronic obstructive airways disease, congestive heart failure, community acquired pneumonia and pulmonary embolism <Rachael Agudelo, MANGLE ROLL OPERATOR - Last Filed: 04/06/25 19:09> Lab Data Attestation: I reviewed the patient's lab results. <Rachael Agudelo, MANGLE ROLL OPERATOR - Last Filed: 04/06/25 19:09> Result diagrams: 04/06/25 09:51 04/06/25 09:51 <Rachael Agudelo, MANGLE ROLL OPERATOR - Last Filed: 04/06/25 19:09> Labs: Lab Results 04/06/25 04/06/25 Range/Units 09:51 10:50 WBC 8.7 (4.5-10.0) K/mm3 RBC 3.24 L (4.2-5.4) M/mm3 Hgb 9.2 L (12.0-15.0) g/dL Hct 31.8 L (37.0-47.0) % MCV 98.1 (80-100) fl MCH 28.4 (26-34) pg MCHC 28.9 L (32-36) g/dl RDW 15.0 H (11.5-14.5) % Plt Count 160 (150-375) k/mm3 MPV 8.7 (7.4-10.4) fl Immature Gran % (Auto) 0.7 H (0-0.5) % Neut % (Auto) 90.0 H (45.5-73.1) % Lymph % (Auto) 5.5 L (18.3-44.2) % [place] % (Auto) 3.8 (2.6-8.5) % Eos % (Auto) 0.0 (0-4.4) % Baso % (Auto) 0.0 L (0.2-1.2) % Lymph # (Auto) 0.48 L (0.9-3.2) K/mm3 [place] # (Auto) 0.3 (0.1-0.6) K/mm3 Eos # (Auto) 0.0 (0-0.3) K/mm3 Baso # (Auto) 0.0 (0.0-0.1) K/mm3 Abs Immat Gran (auto) 0.06 H (0.00-0.031) K/mm3 Absolute Neuts (auto) 7.9 H (1.3-6.7) K/mm3 Absolute Nucleated RBC 0.000 (0.0-0.012) K/mm3 Band Neutrophils % Not Reportable Nucleated RBC % 0.0 (0.0-0.2) % Platelet Estimate Adequate (Adequate) Hypochromasia 1+ Basophilic Stippling 1+ Anisocytosis 1+ Tear Drop Cells 1+ Schistocytes None seen PT 12.8 (11.1-14.7) Seconds INR 1.0 APTT 24.9 (22.3-36.8) Seconds D-Dimer 1.12 H (<0.48) ug/mL Sodium 139 (137-145) mmol/L Potassium 5.3 H (3.4-5.0) mmol/L Chloride 96 L (98-107) mmol/L Carbon Dioxide 31 H (22-30) mmol/L Anion Gap 12 (4-12) mmol/L BUN 73 H (7-17) mg/dL Creatinine 5.93 H (0.7-1.0) mg/dL Estim Creat Clear Calc 14 ml/min Estimated GFR 7 L (59 - ) Glucose 183 H (65-110) mg/dL Lactic Acid 1.2 (0.7-2.0) mmol/L Calcium 9.2 (8.4-10.2) mg/dL Magnesium 2.2 (1.6-2.3) mg/dL Total Bilirubin 0.3 (0.2-1.3) mg/dL AST 19 (14-36) U/L ALT 11 (6-35) U/L Alkaline Phosphatase 127 H (38-126) U/L Troponin I 0.022 (0.000-0.034) ng/mL NT-Pro-B Natriuret Pep 5050 H (19.9-100) pg/mL Total Protein 7.5 (6.3-8.2) g/dL Albumin 3.9 (3.5-5.1) g/dL Urine Color Dark yellow (Yellow) Urine Appearance Turbid H (Clear) Urine pH 6.5 (5.0-9.0) Ur Specific [place] 1.016 (1.001-1.035) Urine Protein 4+ H (Negative) mg/dL Urine Glucose (UA) Negative (Negative) mg/dL Urine Ketones Negative (Negative) mg/dL Ur Blood (Man) 3+ H (Negative) Urine Nitrate Negative (Negative) Urine Bilirubin Negative (Negative) Urine Urobilinogen 0.2 (<2.0) mg/dL Add Ur Microanalysis Reviewed Leukocyte Esterase Rfl 3+ H (Negative) ARTURO/UL Urine RBC >100 H (0-2) /hpf Urine WBC >100 H (0-3) /hpf Ur Squamous Epith Cells Many H (Few) /hpf Urine Bacteria 4+ H /hpf Urine Casts 11-20 Hep Bs Antigen Negative (Negative) <Rachael Agudelo, MANGLE ROLL OPERATOR - Last Filed: 04/06/25 19:09> Lab Results 04/06/25 04/06/25 Range/Units 09:51 10:50 WBC 8.7 (4.5-10.0) K/mm3 RBC 3.24 L (4.2-5.4) M/mm3 Hgb 9.2 L (12.0-15.0) g/dL Hct 31.8 L (37.0-47.0) % MCV 98.1 (80-100) fl MCH 28.4 (26-34) pg MCHC 28.9 L (32-36) g/dl RDW 15.0 H (11.5-14.5) % Plt Count 160 (150-375) k/mm3 MPV 8.7 (7.4-10.4) fl Immature Gran % (Auto) 0.7 H (0-0.5) % Neut % (Auto) 90.0 H (45.5-73.1) % Lymph % (Auto) 5.5 L (18.3-44.2) % [place] % (Auto) 3.8 (2.6-8.5) % Eos % (Auto) 0.0 (0-4.4) % Baso % (Auto) 0.0 L (0.2-1.2) % Lymph # (Auto) 0.48 L (0.9-3.2) K/mm3 [place] # (Auto) 0.3 (0.1-0.6) K/mm3 Eos # (Auto) 0.0 (0-0.3) K/mm3 Baso # (Auto) 0.0 (0.0-0.1) K/mm3 Abs Immat Gran (auto) 0.06 H (0.00-0.031) K/mm3 Absolute Neuts (auto) 7.9 H (1.3-6.7) K/mm3 Absolute Nucleated RBC 0.000 (0.0-0.012) K/mm3 Band Neutrophils % Not Reportable Nucleated RBC % 0.0 (0.0-0.2) % Platelet Estimate Adequate (Adequate) Hypochromasia 1+ Basophilic Stippling 1+ Anisocytosis 1+ Tear Drop Cells 1+ Schistocytes None seen PT 12.8 (11.1-14.7) Seconds INR 1.0 APTT 24.9 (22.3-36.8) Seconds D-Dimer 1.12 H (<0.48) ug/mL Sodium 139 (137-145) mmol/L Potassium 5.3 H (3.4-5.0) mmol/L Chloride 96 L (98-107) mmol/L Carbon Dioxide 31 H (22-30) mmol/L Anion Gap 12 (4-12) mmol/L BUN 73 H (7-17) mg/dL Creatinine 5.93 H (0.7-1.0) mg/dL Estim Creat Clear Calc 14 ml/min Estimated GFR 7 L (59 - ) Glucose 183 H (65-110) mg/dL Lactic Acid 1.2 (0.7-2.0) mmol/L Calcium 9.2 (8.4-10.2) mg/dL Magnesium 2.2 (1.6-2.3) mg/dL Total Bilirubin 0.3 (0.2-1.3) mg/dL AST 19 (14-36) U/L ALT 11 (6-35) U/L Alkaline Phosphatase 127 H (38-126) U/L Troponin I 0.022 (0.000-0.034) ng/mL NT-Pro-B Natriuret Pep 5050 H (19.9-100) pg/mL Total Protein 7.5 (6.3-8.2) g/dL Albumin 3.9 (3.5-5.1) g/dL Urine Color Dark yellow (Yellow) Urine Appearance Turbid H (Clear) Urine pH 6.5 (5.0-9.0) Ur Specific [place] 1.016 (1.001-1.035) Urine Protein 4+ H (Negative) mg/dL Urine Glucose (UA) Negative (Negative) mg/dL Urine Ketones Negative (Negative) mg/dL Ur Blood (Man) 3+ H (Negative) Urine Nitrate Negative (Negative) Urine Bilirubin Negative (Negative) Urine Urobilinogen 0.2 (<2.0) mg/dL Add Ur Microanalysis Reviewed Leukocyte Esterase Rfl 3+ H (Negative) ARTURO/UL Urine RBC >100 H (0-2) /hpf Urine WBC >100 H (0-3) /hpf Ur Squamous Epith Cells Many H (Few) /hpf Urine Bacteria 4+ H /hpf Urine Casts 11-20 Hep Bs Antigen Negative (Negative) <Yogi Mascorro MD - Last Filed: 04/06/25 17:56> ABG Data ABG results: 04/06/25 09:54 Puncture Site Right radial ABG pH 7.119 L* ABG pCO2 96.8 H* ABG pO2 100.6 H ABG PO2/FiO2 Ratio 3.10 ABG HCO3 30.7 H ABG O2 Saturation 94.9 L ABG O2 Content 12.9 L ABG Base Excess -0.1 A-a Gradient 18.0 Oxyhemoglobin 94.6 Total Hemoglobin 9.6 L O2 Delivery Device Nasal cannula O2 Liters/Min 3.5 FiO2 33 <Rachael Agudelo APRN - Last Filed: 04/06/25 19:09> 04/06/25 09:54 Puncture Site Right radial ABG pH 7.119 L* ABG pCO2 96.8 H* ABG pO2 100.6 H ABG PO2/FiO2 Ratio 3.10 ABG HCO3 30.7 H ABG O2 Saturation 94.9 L ABG O2 Content 12.9 L ABG Base Excess -0.1 A-a Gradient 18.0 Oxyhemoglobin 94.6 Total Hemoglobin 9.6 L O2 Delivery Device Nasal cannula O2 Liters/Min 3.5 FiO2 33 <Yogi Mascorro MD - Last Filed: 04/06/25 17:56> Critical Care Time Critical Care Time Critical Care Time: Yes <Yogi Mascorro MD - Last Filed: 04/06/25 17:56> Total Critical Care Time: 55 <Rachael Agudelo APRN - Last Filed: 04/06/25 19:09> 36 <Yogi Mascorro MD - Last Filed: 04/06/25 17:56> Discharge Plan Discharge Clinical Impression: Pulmonary embolism CHF (congestive heart failure) Qualifiers: Heart failure type: unspecified Heart failure chronicity: unspecified Qualified Code(s): I50.9 - Heart failure, unspecified <Rachael Agudelo APRN - Last Filed: 04/06/25 19:09> Patient Disposition: Still a Patient <Rachael Agudelo APRN - Last Filed: 04/06/25 19:09> Condition: Serious <Rachael Agudelo APRN - Last Filed: 04/06/25 19:09>
[2025-04-06 10:00] LABS: Hematocrit 31.8 % (37.0-47.0); Hemoglobin 9.2 g/dL (12.0-15.0); Immature Granulocyte Percent A 0.7 % (0-0.5); Lymphocytes Absolute Auto 0.48 K/mm3 (0.9-3.2); Mean Corpuscular HGB Conc 28.9 g/dl (32-36); Mean Corpuscular Hemoglobin 28.4 pg (26-34); Mean Corpuscular Volume 98.1 fl (80-100); Nucleated Red Blood Cells Absolute Auto 0.000 K/mm3 (0.0-0.012); Nucleated Red Blood Cells Perc 0.0 % (0.0-0.2); Platelet Count Result 160 k/mm3 (150-375); Red Blood Count 3.24 M/mm3 (4.2-5.4); White Blood Count 8.7 K/mm3 (4.5-10.0)
[2025-04-06 10:09] LABS: Alveolar/Arterial O2 Gradient 18.0 mmHg; Fractional Inspired Oxygen 33 %; HCO3 ABG 30.7 mEq/l (22.0-26.0); Oxygen Content ABG 12.9 %vol (16.0-22.0); Oxygen Saturation ABG 94.9 % (95.0-100.0); PO2 ABG 100.6 mmHg (80.0-100.0); PO2 FiO2 Ratio Arterial Blood 3.10 %
[2025-04-06 10:12] LABS: INR 1.0; Prothrombin Time 12.8 Seconds (11.1-14.7)
[2025-04-06 10:12] LABS: Liters per Minute 3.5 LPM; Modified Allen's Test Pass; PCO2 ABG 96.8 mmHg (35.0-45.0); Site Drawn RIGHT RADIAL
[2025-04-06 10:13] LABS: Partial Thromboplastin Time 24.9 Seconds (22.3-36.8)
[2025-04-06] MEDS: IPRATROPIUM 0.5 MG/ALBUTEROL SULFATE 2.5 MG AMPUL.NEB 3 ML INHALATION ×5 (10:15→20:14)
[2025-04-06 10:21] LABS: Alanine Aminotransferase 11 U/L (6-35); Albumin Level 3.9 g/dL (3.5-5.1); Alkaline Phosphatase 127 U/L (38-126); Anion Gap 12 mmol/L (4-12); Anisocytosis 1+; Aspartate Amino Transferase 19 U/L (14-36); Bilirubin,Total 0.3 mg/dL (0.2-1.3); Blood Urea Nitrogen 73 mg/dL (7-17); Calcium 9.2 mg/dL (8.4-10.2); Carbon Dioxide 31 mmol/L (22-30); Chloride 96 mmol/L (98-107); Estimated CRCL calculation 14 ml/min; Estimated Glomerular Filt Rate 7; Glucose 183 mg/dL (65-110); Hypochromasia 1+; Magnesium 2.2 mg/dL (1.6-2.3); Potassium 5.3 mmol/L (3.4-5.0); Sodium 139 mmol/L (137-145); Total Protein 7.5 g/dL (6.3-8.2)
[2025-04-06 10:22] LABS: Basophilic Stippling 1+; Schistocytes None Seen; Tear Drop Cells 1+
[2025-04-06 10:32] LABS: NT Pro B Type Natriuretic Pept 5050 pg/mL (19.9-100); Troponin I 0.022 ng/mL (0.000-0.034)
[2025-04-06] MEDS: FUROSEMIDE INJ 100 MG/10 ML VIAL 80 MG IV PUSH (10:47)
--- OUTSIDE RECORDS SUMMARY | 2025-04-06 11:05 | XMS_ITS | Clinical Summary ---
Author Organization [facility] Address [address] [place] [address] Phone Care Team Providers Care Environmental Monitoring Specialist Name Role Phone Provider, None Primary Care [...] every 12 hours as needed for Anxiety. 4 Active fluticasone (FLONASE) 50 MCG/ACT Suspension 1-2 [...] Take 40 mg by mouth nightly. Active HYDROcodone-acet aminophen (NORCO) 5-325 MG TabletIndication s:Acute respiratory failure with hypoxia and hypercapnia (HCC) Take 1 Tablet by mouth every 8 hours as needed for Moderate or more severe pain. 12 Tablet 5 Active naloxone HCl (Narcan) 4 MG/0.1ML Liquid 1 [place] by Nasal route as needed for Opioid Reversal. Administer in one nostril for symptoms of overdose (severe sleepiness, breathing problems, not responsive). Call 911. May repeat 1 spray in alternate nostril in 2-3 minutes if needed. 2 Each 5 Active Active Problems Problem Noted Date [...] hypercapnia 08/28/2024 08/29/2024 Fluid overload 08/28/2024 08/29/2024 Immunizations Immunization Administration Dates Next Due Pneumococcal conjugate PCV20 , polysaccharide ZSU855 conjugate, adjuvant, PF 09/30/2024() Social History Tobacco Use Types Packs/Day Years Used Date Smoking Tobacco: Every Day Cigarettes Smokeless Tobacco: Never Tobacco Cessation:Ready to Q uit: Not Asked; Counseling Given: Not Answered Alcohol Use Standard Drinks/Week Comments No 0 (1 standard drink = 0.6 oz pur e alcohol) [facility] Utilities Answer Date Recorded In the past 12 months has th e electric, gas, oil, or water company threatened to shut off services in your home? No 11/25/2024 Social Connection and Isolation Panel Answer Date Recorded In a typical week, how many times do you talk on the phone with family, friends, or neighbors? Patient unable to answer 09/27/2024 How often do you get togethe r with friends or relatives? Patient unable to answer 09/27/2024 How often do you attend chur ch or shinto services? Patient unable to answer 09/27/2024 Active [...] and heating? Patient unable to answer 09/27/2024 [facility] [place] [facility] - Occupational Stress [...] any time in the [facility], were you homeless or living in a fci (including now)? No 11/25/2024 Comments No Sex [...] 6:00 AM CDT Height 170.2 cm (5' 7) 11/24/2024 10:3 0 PM CDT Body Mass Index 65.37 11/24/2024 10:30 PM CDT Plan of Treatment Health Maintenance Due Date Last Done Comments DEXA Bone Density 1958 Cologuard 2003 Colonoscopy 2003 Zoster Immunization (1 of 2) 2008 Respiratory Syncytial Virus (RSV) Immunization (Adult) (1 - Risk 60-74 years 1-dose series) 2018 Mammogram 05/11/2019 05/11/2018 Pneumococcal Immunization (50+ years) (3 of 3 - PCV) 08/15/2020 08/15/2019, 12/20/2016 SARS-COV-2 Immunization ( season) 2025 07/21/2024, 08/27/2023, 12/25/2021, Additional history exists Influenza Immunization (#1) 2025 11/0 04/2024, 08/20/2021, 07/03/2021, Additional history exists Colorectal Cancer Screening 06/04/2025 Immunochemical Fecal Occult Blood 06/04/2025 06/04/2024, 05/30/2024, 12/11/2022 Pneumococcal Immunization Combined Discontinued 08/15/2019, 12/20/2016 DTaP/Tdap/Td Immunization Discontinued 04/30/2021 TdaP Immunization Completed 04/30/2021 Hepatitis C Virus (HCV) Screening Completed 11/27/2024, 11/26/2024, 09/28/2024, Additional history exists Hepatitis B Immunization Aged Out No longer eligible based on patient's age to complete this topic Human Papillomavirus (HPV) Immunization Aged Out No longer eligible based on patient's age to complete this topic Meningococcal Immunization (ACWY) Aged Out No longer eligible based on patient's age to complete this topic Rotavirus Immunization Aged Out No lo nger eligible based on patient's age to complete this topic Procedures Procedure Name Priority Date/Time Associated Diagnosis Comments HEPATITIS PANEL ACUTE (AHP) Routine 11/27/2024 2:26 AM CDT from Last 3 Months or Most Recently Relevant to Health Maintenance Results * Hepatitis Panel Acute (AHP) (11/27/2024 2:26 AM CDT) HEPATITIS A IGM ANTIBODY NON DETECTED NON DETECTED 11/27/2024 4:07 PM CDT [facility] Comment: IGM Antibodies to HAV not detected. Does not exclude early acute or recovered HAV infection. HEP B CORE AB (IGM) NON DETECTED NON DETECTED 11/27/2024 4:07 PM CDT [facility] Comment:IGM anti-HBC not det ected. Does not exclude the possibility of exposure to or infection with HBV. HEPATITIS B SURFACE ANTIGEN NON DETECTED NON DETECTED 11/27/2024 4:07 PM CDT [facility] Comment:A nonreactive test r esult does not [...] 0.09 <1 S/CO 11/27/2024 4:07 PM CDT [facility] Comment: Signal/Cutoff ratio < 0.79 is Nondetected Signal/Cutoff ratio 0.80-0.99 is Grayzone Signal/Cutoff ratio > 0.99 is Detected Supplemental assays are recommended if signal/cutoff ratio is >/=1.00. Signal/cutoff ratio result >/= 5.00 is 97% predictive of positivity for recombinant immunoblot assay (RIBA) and will be reported to the [place] [facility] Public [facility] as required. Blood Venipuncture / Unknown 11/27/2024 2:26 AM CDT 11/27/2024 2:31 AM CDT us Lesley Cruz MD HEMATOLOGY ORDERABLES F inal Result [facility] [address] [place] [address], [place] from Last 3 Months or Most Recently Relevant to Health Maintenance Additional Health Concerns Infection Onset Date Last Indicated ESBL Comment:Added from external infection. Source: [facility]. 11/02/2024 Insurance MEDICAID [place] MED[place] AET Advance Directives * Full Code (Latest Code [...] measures to stabilize the patient. Care Teams Environmental Monitoring Specialist Relationship Specialty Start Date End Date Provider, None [place] PCP - General 11/24/24
--- OUTSIDE RECORDS SUMMARY | 2025-04-06 11:05 | XMS_ITS | Encounter Summary ---
Author Organization [facility] Address [address] [place] [address] Phone Care Team Providers Care Gin Pole Operator Name Role Phone Provider, None Primary Care Provider Unavailabl e Encounter Details Date Type Department Care Team (Late st Contact Info) Description 10/06/2024 Telephone [facility] [address] [place] [phone] Satish Fontanez MD [address] [facility] [address] [place] [address] Social History Tobacco Use Types Packs/Day Years Used Date Smoking Tobacco: Every Day Cigarettes Smokeless Tobacco: Never Alcohol Use Standard Drinks/Week Comments No 0 (1 standard drink = 0.6 oz pur e alcohol) [facility] Utilities Answer Date Recorded In the past 12 months has [facility] [place], gas, oil, or water [employer] threatened to shut off services in your home? Patient unable to answer 09/27/2024 Social Connection and Isolation Panel Answer Date Recorded In a typical week, how many times do you talk on the phone with family, friends, or neighbors? Patient unable to answer 09/27/2024 How often do you get togethe r with friends or relatives? Patient unable to answer 09/27/2024 How often do you attend chur ch or islam services? Patient unable to answer 09/27/2024 Active [...] and heating? Patient unable to answer 09/27/2024 [facility] - Occupational Stress [...] were you homeless or living in a chcf (including now)? Patient unable to answer 09/27/2024 [...] Time ESBL Comment:Added from external infection. Source: [facility]. 03/26/2024 08/28/2024 11/27/2024 8:53 A M CDT MRSA 07/01/2024 07/01/2024 11/28/2024 8:31 AM CDT ESBL Comment:Added from external infection. Source: [facility]. 11/02/2024 documented as of this encounter Care Teams Gin Pole Operator Relationship Specialty Start Date End Date Provider, None [place] PCP - General 11/24/24 documented as of this encounter
--- OUTSIDE RECORDS SUMMARY | 2025-04-06 11:05 | XMS_ITS | Clinical Summary ---
Author Organization [facility] Address [address] [place] [address] Care Team Providers Care Electrical Engineering Professor Name Role Phone Omar Pugh Primary Care Provider [phone] Allergies Active Allergy Reactions Criticality Noted Date Comments Penicillins Unknown Medium 08/09/2019 Patient Stated That she took Amoxicillin prescription picked up from [facility] on 05/19/19 with no problems. -08/10/19 [...] Acute renal failure 05/27/2024 Acute respiratory failure ([facility]) 10/2022 Acute hypercapnic respiratory failure ([facility]) 07/15/2023 Acute on chronic respiratory failure ([facility]) 12/12/2022 Acute on chronic anemia 12/10/2022 Debility 06/20/2021 Chronic diastolic CHF (conge stive heart failure) ([facility]) 04/02/2021 Chronic GERD 04/02/2021 Chronic respiratory failure with hypoxia ([facility]) 04/02/2021 Peripheral neuropathy 04/02/2021 Right knee pain 04/02/2021 Impaired mobility 03/28/2021 Respiratory failure ([facility]) 01/22/2021 Tibia fracture 12/13/2020 At high risk for complication of immobility 07/16 Cellulitis of left lower extremity 08/12/2019 Pain and swelling of left lower leg 08/12/2019 Hydronephrosis, left 08/10/2019 Severe episode of recurrent major depressive disorder, without psychotic features ([facility]) 12/12/2018 Atypical chest pain 12/10/2018 Obstructive sleep apnea 12/10/2018 Paroxysmal atrial fibrillation ([facility]) 12/10/2018 Subclinical hypothyroidism 12/10/2018 Acute respiratory failure with hypoxia ([facility]) 12/01/2018 YAYA (acute kidney injury) 12/01/2018 Aspiration pneumonia ([facility]) 9 Calcium channel wayne overdose 12/01/2018 Encephalopathy, toxic 12/01/2018 Intentional overdose of drug in tablet form ([facility]) 12/01/2018 Neck pain, musculoskeletal 04/19/2018 [...] embolus less than 3 months ago no [place] details she has had numerous hospitalizations in [...] red meat Bipolar 1 disorder, depressed, mild ([facility] /HCC) 07/20/2017 Overview (08/12/2019): Last Assessment [...] she informs me that Dr. Panda in [facility] is willing to move this pannus patient [...] 2 months ago. Referral re-printed. Personality disorder ([facility]) 7 Overview (08/12/2019): Last Assessment & Plan: Psychiatric referral made Recurrent major depressive disorder, in partial remission 07/20/2017 Seizures ([facility]) 07/20/2017 Overview (08/12/2019): Last Assessment & Plan: Patient gives a history of seizure disorder going back several years no seizures in the past 8 months she is on gabapentin patient was previously followed at [facility] in [facility]. Plans continue gabapentin this time Motor [...] your doctor or pharmacy? Always 05/26/2024 [facility] 3[employer] Answer Date Recorded In the past 12 months has e [employer], gas, oil, or water [employer] threatened to shut off services in your [...] slept in a alf (including now)? No 07/20/2023 Housing Stability Vital [...] time in the past 12 m [facility], were you homeless or living in a alf (including now)? Patient unable to answer 05/29/2024 Comments No Sex and Gender Information Value Date Recorded Sex Assigned at Female 11/28/2024 8:51 AM CDT Legal Sex Female 9:48 PM [employer] Gender Identity Not on file Sexual Orientation [...] 5:30 AM CDT Height 162 cm (5' 3.78) 05/30/2024 12: 37 AM CDT Body Mass [...] Montesinos RN Medical Devices Implanted Type Area Rack Cleaner Device Identifier Shelf Expiration Date Model / Serial / Lot Nail Shefali Tibial Yellow 09.3 X 34cm - [id number] Implanted:Qty: 1 on 12/15/2020 by Aditya Meyer MD at [facility] Nail Left: [employer] [id number] 10/12/2030 [id number] / / [id number] Plate 1/3 Tubular Shefali 6 Hole - [id number] Implanted:Qty: 1 on 12/15/2020 by Aditya Meyer MD at [facility] Plate Right: Tib[employer] [id number] / / Screw Cortical Shefali Prox Dist F/T 5.0 X 35mm - [id number] Implanted:Qty: 1 on 12/15/2020 by Aditya Meyer MD at [facility] Screw Left: [employer] [id number] 05/04/2030 [id number] / / [id number] Screw Cortical Shefali 3.5 X 55mm - [id number] Implanted:Qty: 1 on 12/15/2020 by Aditya Meyer MD at [facility] Screw Right: [employer] [id number] / / Screw Cortical Shefali 3.5 X 14mm - [id number] Implanted:Qty: 1 on 12/15/2020 by Aditya Meyer MD at [facility] Screw Right: [employer] [id number] / / Screw Cortical Shefali F/T 5.0 X 60mm - [id number] Implanted:Qty: 1 on 12/15/2020 by Aditya Meyer MD at [facility] Screw Left: [employer] [id number] 12/11/2022 [id number] / / [id number] Screw Cortical Shefali Prox Dist F/T 5.0 X 32.5mm - [id number] Implanted:Qty: 1 on 12/15/2020 by Aditya Meyer MD at [facility] Screw Left: [employer] [id number] 05/27/2030 [id number] / / [id number] Screw Cortical Shefali Prox Dist F/T 5.0 X 27.5mm - [id number] Implanted:Qty: 1 on 12/15/2020 by Aditya Meyer MD at [facility] Screw Left: [employer] [id number] 03/12/2030 [id number] / / [id number] Screw Cortical Shefali Prox Dist 5.0 X 42.5mm - [id number] Implanted:Qty: 1 on 12/15/2020 by Aditya Meyer MD at [facility] Screw Left: Tib[employer] [id number] 07/13/2028 [id number] / / [id number] Stent Cook Ureteral Filaform 6 Fr X 24cm - [id number] Implanted:Qty: 1 on 08/11/2019 by See Manzanares MD at [facility] Left: Ureter [employer] 05/30/2022 [id number] / / 100 3.5 X 50mm Screw Implanted:Qty: 1 on 12/15/2020 by Aditya Meyer MD at [facility] Right: Tib[employer] [id number] / / 3.5 X 45mm Screw Implanted:Qty: 1 on 12/15/2020 by Aditya Meyer MD at [facility] Right: [employer] [id number] / / Explanted Type Area Rack Cleaner Device Identifier Shelf Expiration Date Model / Serial / Lot Drill Bit Shefali 4.3 - [id number] Explanted:Qty: 2 on 12/15/2020 at [facility] Drill Left: Tibia [employer] [id number] / / N/A Drill Bit Shefali Tib/Hum Faustino 4.3mm - [id number] Explanted:Qty: 1 on 12/15/2020 by Aditya Meyer MD at [facility] Drill Left: [employer] [id number] / / N/A Drill Bit Shefali 2.5mm - [id number] Explanted:Qty: 1 on 12/15/2020 by Aditya Meyer MD at [facility] Drill Left: [employer] [id number] / / N/A Pin Shefali 3.0mm Threaded - [id number] Explanted:Qty: 2 on 12/15/2020 at [facility] Pin Left: [employer] [id number] / / N/A Ball Nose Guide Wire Explanted:Qty: 1 on 12/15/2020 by Aditya Meyer MD at [facility] Left: Tibia [employer] 10/25/2030 [id number] / / [id number] Procedures Procedure Name Priority Date/Time Associated Diagnosis Comments LIPID PANEL Routine 09/19/2019 11:30 AM [employer] Essential hypertension History of type 2 diabetes mellitus Hyperlipidemia Atrial fibrillation Anemia from Last 3 Months or Most Recently Relevant to Health Maintenance Results * (ABNORMAL) LIPID PANEL (09/19/2019 11:30 AM [employer]) CHOLESTEROL 175 <200 MG/DL 09/19/2019 11:52 AM [facility] Comment: THE NATIONAL LIPID ASSOCIATION AND THE NATIONAL CHOLESTEROL EDUCATION PROGRAM (NCEP) HAVE SET THE FOLLOWING GUIDELINES FOR TOTAL CHOLESTEROL IN ADULTS AGES 18 AND UP. DESIRABLE: <200 BORDERLINE HIGH: 200-239 HIGH: > OR = 240 TRIGLYCERIDES 250(H) <150 MG/DL 09/19/2019 11:52 AM [facility] Comment: THE NATIONAL LIPID ASSOCIATION AND THE NATIONAL CHOLESTEROL EDUCATION PROGAM (NCEP) HAVE SET THE FOLLOWING GUIDELINES FOR TRIGLYCERIDES IN ADULTS AGES 18 AND UP. NORMAL: <150 BORDERLINE HIGH: 150 TO 199 HIGH: 200 TO 499 VERY HIGH: >499 HDL 43(L) >49 MG/DL 09/19/2019 11:52 AM [facility] Comment: THE NATIONAL LIPID ASSOCIATION AND THE NATIONAL CHOLESTEROL EDUCATION PROGAM (NCEP) HAVE SET THE FOLLOWING GUIDELINES FOR HDL CHOLESTEROL IN ADULTS AGES 18 AND UP. MALES: >39 FEMALES: >49 LDL (CALCULATED) 82 <100 MG/DL 09/19/19 11:52 AM [facility] Comment: THE NATIONAL LIPID ASSOCIATION AND THE NATIONAL CHOLESTEROL EDUCATION PROGAM (NCEP) HAVE SET THE FOLLOWING GUIDELINES FOR LDL CHOLESTEROL IN ADULTS AGES 18 AND UP. DESIRABLE: <100 ABOVE DESIRABLE: 100 TO 129 BORDERLINE HIGH: 130 TO 159 HIGH: 160 TO 189 VERY HIGH: >189 VLDL CALCULATION 50 MG/DL 09/19/19 11:52 AM [facility] Comment:REFERENCE RANGE NOT ESTABLISHED CHOL/HDL RATIO 4.1 09/19/2019 11:52 AM [facility] Comment:REFERENCE RANGE NOT ESTABLISHED LDL/HDL 1.9 09/19/2019 11:52 AM [employer] [facility] Comment:REFERENCE RANGE NOT ESTABLISHED NON HDL CHOLESTEROL 132 MG/DL 09/19/2019 11:52 AM [employer] [facility] Comment:REFERENCE RANGE NOT ESTABLISHED 09/19/2019 11:3 0 AM [employer] [facility] Final Re sult [facility] [address] [place] [address], from Last 3 Months or Most Recently Relevant to Health Maintenance Additional Health Concerns Infection Onset Date Last Indicated MRSA Comment:Added from external infection. 07/28/2022 07/15/2023 ESBL - Extended Spectrum Bet a-lactamase Comment:Added from external infection. Source: 03/26/24 [facility]. 03/26/2024 06/03/2024 Insurance AETNA MEDICAID AETNA MEDICAID Advance Directives Documents on File Type Date Recorded Patient Rubber Tubing Splicer Expl anation Advance Directives and Living Will [...] 4:50 PM 07/26/2023 8:30 PM Care Teams Electrical Engineering Professor Relationship Specialty [place] [address] [place], [place] [address] PCP - General PHYSICIAN FANS CLERK 03/07/23
--- OUTSIDE RECORDS SUMMARY | 2025-04-06 11:05 | XMS_ITS | Encounter Summary ---
Author Organization [facility] Address [address] [place] [address] Care Team Providers Care Classifier Name Role Phone Nicolas Navarro MD Primary Care Provider Mckay Pineda MD Primary Care Provider Leroy Livingston MD Primary Care Provider [phone] Omar Pugh Primary Care Provider [phone] Encounter Details Date Type Department Care Team (Late st Contact Info) Description 11/27/2017 Abstract [facility] CONVERSION [address] [place] [address] , Generic Kamila, Social History Tobacco Use Types Packs/Day Years Used Date Smoking Tobacco: Never Assessed Comments Unknown Sex and Gender Information Value Date Recorded Sex Assigned at Female 11/28/2024 8:51 AM CDT Legal Sex Female 9:48 PM TENNIS BALL COVER CEMENTER Gender Identity Not on file Sexual Orientation [...] Beta-lactamase Comment:Added from external infection. Source: 03/26/24 [facility]. 03/26/2024 06/03/2024 documented as of this encounter Care Teams Classifier Relationship Specialty Start Date End Date Nicolas Navarro MD [address] [facility] [place] [address] PCP - General FAMILY PRACTICE 04/17/19 06/18/21 Mckay Pineda MD [address] [place] [phone] PCP - General FAMILY PRACTICE 06/19/21 12/14/22 Leroy Livingston MD [address] [place] [phone] PCP - General FAMILY PRACTICE 12/15/22 03/06/23 [place] [address] [address] PCP - General PHYSICIAN WORKFORCE INVESTMENT ACT CAREER MANAGER 03/07/23 documented as of this encounter
--- OUTSIDE RECORDS SUMMARY | 2025-04-06 11:06 | XMS_ITS | Clinical Summary ---
Author Organization [facility] Address [address] [place] [address] Care Team Providers Care Parking Assistant Name Role Phone Terri Balderas MD Primary Care Provider [phone] Source Comments [facility],non-owned Affiliates and Associated Physician Practices is amultiple site organization consisting of ambulatory clinics and hospital sitesin [place], [place], [place] and [place]. This disclosure is being madepursuant to the Care Everywhere program and may not contain all information available regarding this patient. Last updated 18.[facility] Allergies Active Allergy Reactions Criticality Noted Date Comments Penicillins Unknown Medium 08/10/2017 Pt states she doesn't know what happened but she was in the hospital because of it when she was a child Has tolerated cephalosporins in the past Unknown reaction as a child Patient Stated That she took Amoxicillin prescription picked up from [facility] on 05/19/19 with no problems. -08/10/19 Miseal Gomez, Jasmyn Medications * Be aware that [...] fluticasone propionate (Flonase) 50 MCG/ACT nasal spray Darrow 1 (one) spray into each nostril 2 times daily Active gabapentin (Neurontin) 100 MG capsule Take 1 (one) capsule by mouth 3 times daily Active polyethylene glycol 3350 (Miralax) 17 GM/SCOOP powder Take 17 (seventeen) g by mouth once daily Active HYDROcodone-rosa taminophen (Moline) 5-325 MG tablet Take 1 (one) tablet [...] hours later. Active SALINE NASAL SPRAY NA Darrow 2 sprays into the nose every 6 [...] and heating? Not hard at all 03/27/2024 [facility] Occupat ional Health - Occupational Stress [...] appointments or from getting medications? No 03/27/2024 Lack of Transportation (Non-Medical) Not on file 03/27/2024 Housing Stability Vital Sign Answer Pepe [...] place to sleep or slept in a fci (including now)? No 03/27/2024 Comments Unknown Sex [...] 1:11 PM CDT Height 167.6 cm (5' 6) 04/07/2024 1:11 PM CDT Body Mass Index [...] 50+ (1 of 2 - PCV) 1977 HEPATITIS B VACCINE (1 of 3 - Risk Dialysis 4-dose series) 1978 ZOSTER VACCINE (1 of 2) 2008 Respiratory Syncytial Virus (RSV) Vaccine Pt: or over 60 yrs (1 - Risk 60-74 years 1-dose series) 2018 MAMMOGRAM 05/11/2020 05/11/2018 DIABETES RETINOPATHY SCREENING 2024 DIABETES-FOOT EXAM WITH MONOFILAMENT 2024 COVID-19 VACCINE ( - season) 2024 12/25/2021, 03/21/2021 DIABETES - URINE PROTEIN SCREENING 09/13/2024 05/27/2024, 12/12/2022 MEDICARE AW CALENDAR YEAR 2024 INFLUENZA VACCINE (#1) 2025 , 07/03/2021, 08/10/2019, Additional history exists DIABETES-HGB A1C 05/27/2025 11/24/2024, 07/2025, 09/28/2024, Additional history exists DIABETES-SERUM CREATININE 11/29/20252024, 11/29/2024, 11/28/2024, Additional history exists HEPATITIS C SCREENING Completed 11/27/2024 , 11/27/2024, 11/26/2024, Additional history exists HIB VACCINE Aged Out No longer eligi [...] Comments CREATININE BLOOD STAT 09/25/2024 7:00 PM YOUTH SERVICES LIBRARIAN HEMOGLOBIN A1C Routine 03/29/2024 3:59 AM CDT from Last 3 Months or Most Recently Relevant to Health Maintenance Results * (ABNORMAL) CREATININE BLOOD (09/25/2024 7:00 PM YOUTH SERVICES LIBRARIAN) Creatinine 4.74(H) 0.57 - 1.11 mg/dL 09/25/2024 8:18 PM YOUTH SERVICES LIBRARIAN [facility] eGFR by CKD-EPI 10(L) >=90 mL/min/1.7 3 m2 09/25/2024 8:18 PM YOUTH SERVICES LIBRARIAN [facility] Blood BLOOD SPECIMEN / Unknown Venipuncture / Unknown 09/25/2024 7:00 PM YOUTH SERVICES LIBRARIAN 09/25/2024 7:51 PM YOUTH SERVICES LIBRARIAN [facility] LAB - CHEMISTRY ORDERABLES Adrianna l Result Performing Organization Address City/State/[facility] Co de Phone Number [facility] [address] [place] [id number] * HEMOGLOBIN A1C (03/29/2024 3:59 AM CDT) Hemoglobin A1c 5.0 <5.7 % 03/29/2024 4:52 AM CDT [facility] Estimated Average Glucose 97 mg/dL 03/29/2024 4:52 AM CDT [facility] Blood BLOOD SPECIMEN / Unknown Venipuncture / Unknown 03/29/2024 3:59 AM CDT 03/29/2024 4:08 AM CDT Narrative [facility] - 03/29/2024 4:52 AM CDT HbA1c [...] National Glycohemoglobin Standardization Program (NGSP) certified method. Evan Resendez DO LAB - CHEMISTRY ORDERABLES Fin al Result [facility] [address] [place] [id number] from Last 3 Months or Most Recently Relevant to Health Maintenance Additional Health Concerns Infection Onset Date Last Indicated MRSA Hx Comment:nasal 2024 03/27/2024 ESBL GNR 03/26/2024 03/26/2024 MDRO 03/26/2024 03/26/2024 MRSA 03/26/2024 03/26/2024 Insurance MEDICAID AETNA [facility] AETNA MEDICARE ADV Advance Directives * Full Code (Latest Code Status on File) Date Activated Date Inactivated Comments 2024 7:37 AM 04/08/2024 5:26 PM * Full Code Date Activated Date Inactivated Comments 2024 5:02 AM 2024 7:37 AM Care Teams Parking Assistant Relationship Specialty Start Date End Date Terri Balderas MD [address] [place] [address] PCP - General Family Medicine 03/27/24
--- OUTSIDE RECORDS SUMMARY | 2025-04-06 11:06 | XMS_ITS | Encounter Summary ---
Author Organization [facility] Address [facility] [place] [address] Care Team Providers Care Graduate Rn Name Role Phone Terri Balderas MD Primary Care Provider [phone] Encounter Details Date Type Department Care Team (Late st Contact Info) Description 09/25/2024 Lab Requisition [facility] [address] [place] [address] [facility] [place] [id number] Social History Tobacco Use Types Packs/Day Years [...] and heating? Not hard at all 03/27/2024 [facility] - Occupational Stress [...] place to sleep or slept in a [facility] (including now)? No 03/27/2024 Comments Unknown Sex [...] Comments CREATININE BLOOD STAT 09/25/2024 7:00 PM MORTICIAN HELPER documented in this encounter Results * (ABNORMAL) CREATININE BLOOD (09/25/2024 7:00 PM MORTICIAN HELPER) Creatinine 4.74(H) 0.57 - 1.11 mg/dL 09/25/2024 8:18 PM MORTICIAN HELPER [facility] eGFR by CKD-EPI 10(L) >=90 mL/min/1.7 3 m2 09/25/2024 8:18 PM MORTICIAN HELPER [facility] Blood BLOOD SPECIMEN / Unknown Venipuncture / Unknown 09/25/2024 7:00 PM MORTICIAN HELPER 09/25/2024 7:51 PM MORTICIAN HELPER Darrel Melendrez LAB - CHEMISTRY ORDERABLES Adrianna mckeon Result [facility] [address] [place] [address] documented in this encounter Visit Diagnoses Not on filedocumented in this encounter Additional Health Concerns Infection Onset Date Last Indicated Resolved Time MRSA Hx Comment:nasal 2024 03/27/2024 ESBL GNR 03/26/2024 03/26/2024 MDRO 03/26/2024 03/26/2024 MRSA 03/26/2024 03/26/2024 documented as of this encounter Care Teams Graduate Rn Relationship Specialty Start Date End Date Terri Balderas MD [address] [place] [address] PCP - General Family Medicine 03/27/24 documented as of this encounter
--- OUTSIDE RECORDS SUMMARY | 2025-04-06 11:06 | XMS_ITS | Patient Health Record ---
Author Organization [facility] Address [address] [place] [id number] Care Team Providers Care Dust Collector Name Role Phone Anastacio Mehta Primary Care Provider Alex Salazar Unavailable [phone] ALLERGIES Allergen (clinical drug ingredient) Drug/Non Drug [...] me as needed Orally At bedtime Active PROBLEMS Problem Type ICD Code Onset Dates Problem Status W/U Status Risk SNOMED Code Notes Problem Chronic kidney disease, stage 3 (moderate) (N18.3) Active confirmed Chronic kidney disease stage 3 (840990934) Problem Essential (primary) hypertension (I10) Active confirmed Essential hypertension (68275670) Problem Proteinuria, unspecified (R80.9) Active confirmed Proteinuria (32736147) Problem Type 2 diabetes mellitus with other diabetic kidney complication (E11.29) Active confirmed Diabetic renal disease (759916878) Problem Morbid (severe) obesity due to excess calories (E66.01) Active confirmed Morbid obesity (517418128) Problem Type 2 diabetes mellitus with diabetic chronic kidney disease (E11.22) Active confirmed Diabetic renal disease (157515764) PLAN OF TREATMENT Future Test Test Name Order Date Urinalysis, Routine 10/26/2016 PTH, Intact 10/26/2016 RENAL PANEL 10/26/2016 Vitamin D, 25-Hydroxy 10/26/2016 URINE PROTEIN W/CREAT RATIO 10/26/2016 Insurance Providers Payer Name Payer Address Payer Phone Subscriber Number Group Number Insured Name Patient Relationship to Insured Coverage Start Date Coverage End Date [place] [address] [place] [address] [id number] Cathy Greene Self - patient is the insured MEDICAL (GENERAL) HISTORY Medical History History ICD Code CKD Stage III Hypertension Anemia Diabetes Mellitus Peripheral Neuroopathy Fibromyalgia Obesity Morbid Osteoarthritis Knee Restless Leg Syndrome Surgical History Surgery Date(Month/Year) Laparoscopic Hysterectomy
--- OUTSIDE RECORDS SUMMARY | 2025-04-06 11:07 | XMS_ITS ---
Author Organization [facility] [address] Address [address] [place] [address] Phone Care Team Providers Care Structural Welder Name Role Phone No, Physician Primary Care Provider [phone] Terence Garcia MD Unavailable [phone] Sophia Thomas MD Unavailable [phone] Dialysis Access Sites Type Status Location Placement Date Removal Da te Hemodialysis Cath Double 01/15/25 Tunneled catheter Right Internal Jugular Active Right Neck (side) - Anterior 01/15/2025 Hemodialysis Cath Double Tunneled catheter Right Internal Jugular Inactive Right Neck (side) - Anterior 01/15/2025 Procedures Procedure Name Priority Date/Time Associated Diagnosis Comments POCT GLUCOSE DEVICE Routine 01/20/2025 1 1:46 AM CDT EGFR Routine 01/20/2025 6:17 AM CDT DIFFERENTIAL AUTO Routine 01/20/2025 6:1 7 AM CDT BASIC METABOLIC PANEL Routine 01/20/2025 6:17 AM CDT CBC WITH AUTO DIFFERENTIAL Routine 01/20/2025 6:17 AM CDT POCT GLUCOSE DEVICE Routine 01/20/2025 6 :13 AM CDT POCT GLUCOSE DEVICE Routine 01/19/2025 8 :12 PM CDT POCT GLUCOSE DEVICE Routine 01/19/2025 5 :20 PM CDT POCT GLUCOSE DEVICE Routine 01/19/2025 2 :21 PM CDT EGFR Routine 01/19/2025 7:31 AM CDT DIFFERENTIAL AUTO Routine 01/19/2025 7:3 1 AM CDT BASIC METABOLIC PANEL Routine 01/19/2025 7:31 AM CDT CBC WITH AUTO DIFFERENTIAL Routine 01/19/2025 7:31 AM CDT POCT GLUCOSE DEVICE Routine 01/19/2025 6 :53 AM CDT POCT GLUCOSE DEVICE Routine 01/18/2025 1 0:35 PM CDT POCT GLUCOSE DEVICE Routine 01/18/2025 4 :52 PM CDT POCT GLUCOSE DEVICE Routine 01/18/2025 1 0:50 AM CDT POCT GLUCOSE DEVICE Routine 01/18/2025 7 :35 AM CDT EGFR Routine 01/18/2025 4:04 AM CDT DIFFERENTIAL AUTO Routine 01/18/2025 4:0 4 AM CDT BASIC METABOLIC PANEL Routine 01/18/2025 4:04 AM CDT CBC WITH AUTO DIFFERENTIAL Routine 01/18/2025 4:04 AM CDT POCT GLUCOSE DEVICE Routine 01/17/2025 8 :08 PM CDT POCT GLUCOSE DEVICE Routine 01/17/2025 5 :17 PM CDT POCT GLUCOSE DEVICE Routine 01/17/2025 2 :20 PM CDT POCT GLUCOSE DEVICE Routine 01/17/2025 7 :31 AM CDT EGFR Routine 01/17/2025 5:37 AM CDT DIFFERENTIAL AUTO Routine 01/17/2025 5:3 7 AM CDT BASIC METABOLIC PANEL Routine 01/17/2025 5:37 AM CDT CBC WITH AUTO DIFFERENTIAL Routine 01/17/2025 5:37 AM CDT POCT GLUCOSE DEVICE Routine 01/16/2025 1 0:38 PM CDT POCT GLUCOSE DEVICE Routine 01/16/2025 4 :58 PM CDT POCT GLUCOSE DEVICE Routine 01/16/2025 1 1:08 AM CDT POCT GLUCOSE DEVICE Routine 01/16/2025 6 :59 AM CDT EGFR Routine 01/16/2025 5:25 AM CDT DIFFERENTIAL AUTO Routine 01/16/2025 5:2 5 AM CDT BASIC METABOLIC PANEL Routine 01/16/2025 5:25 AM CDT CBC WITH AUTO DIFFERENTIAL Routine 01/16/2025 5:25 AM CDT POCT GLUCOSE DEVICE Routine 01/15/2025 8 :46 PM CDT URINALYSIS, MICROSCOPIC ONLY Routine 01/15/2025 3:50 PM CDT URINALYSIS AND REFLEX TO MICROSCOPIC AND CULTURE Routine 01/15/2025 3:50 PM CDT URINE CULTURE Routine 01/15/2025 3:50 PM CDT HEPATITIS PANEL, ACUTE Routine 01/15/2025 3:30 PM CDT EXCHANGE TUNNELED LINE IP Routine 01/15/2025 12:37 PM CDT POCT GLUCOSE DEVICE Routine 01/15/2025 1 1:04 AM CDT APTT STAT 01/15/2025 7:50 AM CDT PROTIME-INR Routine 01/15/2025 7:50 AM CDT POCT GLUCOSE DEVICE Routine 01/15/2025 6 :26 AM CDT EGFR Routine 01/15/2025 4:00 AM CDT DIFFERENTIAL AUTO Routine 01/15/2025 4:0 0 AM CDT BASIC METABOLIC PANEL Routine 01/15/2025 4:00 AM CDT CBC WITH AUTO DIFFERENTIAL Routine 01/15/2025 4:00 AM CDT POCT GLUCOSE DEVICE Routine 01/14/2025 8 :07 PM CDT POCT GLUCOSE DEVICE Routine 01/14/2025 6 :19 PM CDT EGFR Routine 01/14/2025 1:14 PM CDT DIFFERENTIAL AUTO Routine 01/14/2025 1:1 4 PM CDT CBC WITH AUTO DIFFERENTIAL Routine 01/14/2025 1:14 PM CDT COMPREHENSIVE METABOLIC PANEL Routine 01/14/2025 1:14 PM CDT OCCULT BLOOD, FECAL (FIT) Routine 08/02/2017 7:41 AM INSULATOR TECHNICIAN MAMMOGRAPHY Routine 01/11/2002 COLONOSCOPY Routine 10/14/2001 from [...] needed (if no results from enema) Active fluticasone propionate (FLONASE) 50 mcg/actuation nasal spray Administer 1 spray into each nostril daily Active magnesium hydroxide (MILK OF MAGNESIA) suspension [...] (six) hours as needed for pain Active baclofen (LIORESAL) 10 mg tablet Take [...] (10 mg total) by mouth daily Active epoetin ag-epbx (RETACRIT) (20,000 unit/mL) injection Inject 1 mL (20,000 Units total) under the skin 3 (three) times a week 5 Active ramelteon (ROZEREM) 8 mg tablet [...] to 6 doses 6 tablet 5 Active traZODone (DESYREL) 150 mg tablet Take 1 tablet (150 mg total) by mouth nightly Active Active Problems Problem Noted Date Diagnosed Date Complication associated with dialysis catheter 0 01/14/2025 End stage renal disease on dialysis 11/06/2024 Influenza A 10/25/2024 Acute respiratory failure with hypoxia and hyper carbia 10/22/2024 Delirium 10/06/2024 Acute on chronic respiratory failure with hypoxia and hypercapnia 07/30/2024 COPD with acute exacerbation 07/30/2024 Acute respiratory failure with hypercapnia 07/26 Hyperkalemia 08/04/2022 Assessment & Plan (08/04/2022 10:52 AM INSULATOR TECHNICIAN): Had normal K on admission. K last 2 days has been 5.1, 5.3. whole blood K of 5.2. Creatinine stable. Suspect due to immobilization vs resolving YAYA. -treat with lokelma x 2 days -will need repeat labs at SNF in 3-7 days. CKD (chronic kidney disease) stage 3, GFR 30-59 ml/min 07/28/2022 Assessment & Plan (08/04/2022 10:50 AM INSULATOR TECHNICIAN): Mild YAYA on top of CKD3 - improved, now creat stable at 1.29. (though might be artificially increased due to being on bactrim) - avoid nephrotoxins and renally dose meds Assessment & Plan (08/02/2022 2:25 PM INSULATOR TECHNICIAN): Mild yaya on top of CKD 3 - will continue to monitor with daily BMP - avoid nephrotoxins and renally dose meds - creatinine stable but not back to baseline, Bactrim may be contributing to cr lab elevation - IVF today and reassess Assessment & Plan (08/01/2022 11:07 AM INSULATOR TECHNICIAN): Mild yaya on top of CKD 3 - will continue to monitor with daily BMP - avoid nephrotoxins and renally dose meds - creatinine downtrending Assessment & Plan (07/31/2022 1:52 PM INSULATOR TECHNICIAN): Mild yaya on top of CKD 3 - will continue to monitor with daily BMP - Hold am lasix, add small IVF bolus - avoid nephrotoxins and renally dose meds - creatinine downtrending Assessment & Plan (07/30/2022 1:34 PM INSULATOR TECHNICIAN): Mild yaya on top of CKD 3 - will continue to monitor with daily BMP - slight bump today - Hold am lasix, add small IVF bolus - avoid nephrotoxins and renally dose meds Assessment & Plan (07/28/2022 2:32 PM INSULATOR TECHNICIAN): Mild yaya on top of CKD 3 - will continue to monitor with daily BMP - Hold am lasix - send urinalysis - avoid nephrotoxins and renally dose meds Cellulitis of abdominal wall 07/27/2022 Assessment & Plan (08/04/2022 10:49 AM INSULATOR TECHNICIAN): Pt presenting with abdominal wall erythema and [...] resolved Assessment & Plan (08/02/2022 2:23 PM INSULATOR TECHNICIAN): Pt presenting with abdominal wall erythema and [...] improving Assessment & Plan (08/01/2022 10:56 AM INSULATOR TECHNICIAN): Pt presenting with abdominal wall erythema and [...] 21, stopped VANC on 07/30 - + 1 blood cultures for Gram + clusters (reported as prelim staph epi), repeat cultures negative and likely contaminant - changed to bactrim DS to complete full course of antibiotics - exam improving Assessment & Plan (07/31/2022 1:51 PM INSULATOR TECHNICIAN): Pt presenting with abdominal wall erythema and [...] positive Assessment & Plan (07/30/2022 1:32 PM INSULATOR TECHNICIAN): Pt presenting with abdominal wall erythema and [...] contaminant Assessment & Plan (07/29/2022 2:29 PM INSULATOR TECHNICIAN): Pt presenting with abdominal wall erythema and [...] appropriate Assessment & Plan (07/28/2022 2:24 PM INSULATOR TECHNICIAN): Pt presenting with abdominal wall erythema and [...] 01/21/2022 Assessment & Plan (08/03/2022 3:28 PM INSULATOR TECHNICIAN): CT in January 2022 showed 4 cm [...] radiology they have such a scanner at [facility] Assessment & Plan (08/02/2022 2:24 PM INSULATOR TECHNICIAN): CT in January 2022 showed 4 cm [...] radiology they have such a scanner at [facility] Assessment & Plan (08/01/2022 11:05 AM INSULATOR TECHNICIAN): CT in January 2022 showed 4 cm [...] not Assessment & Plan (07/31/2022 1:51 PM INSULATOR TECHNICIAN): CT in January 2022 showed 4 cm indeterminant renal mass, has progressed since previous imaging and was recommended to have MRI outpatient but patient was not scanned. - ordered MRI and attempting to get as inpatient Assessment & Plan (07/30/2022 1:33 PM INSULATOR TECHNICIAN): CT in January 2022 showed 4 cm indeterminant renal mass, has progressed since previous imaging and was recommended to have MRI outpatient but patient was not scanned. - ordered MRI Assessment & Plan (07/28/2022 2:30 PM INSULATOR TECHNICIAN): CT in January 2022 showed 4 cm [...] 021 Assessment & Plan (08/04/2022 10:49 AM INSULATOR TECHNICIAN): Pt with Hx of COPD (former smoker), SHELDON and OHS on 3L O2 chronically and Bipap At baseline - Cont home ICS/LABA (formulary substitute for home symbicort) and duonebs prn, bipap and supplemental O2. Assessment & Plan (08/02/2022 2:23 PM INSULATOR TECHNICIAN): Pt with Hx of COPD (former smoker), SHELDON and OHS on 3L O2 chronically and Bipap - Cont home ICS/LABA (formulary substitute for home symbicort) and duonebs prn, bipap and supplemental O2. Assessment & Plan (08/01/2022 10:56 AM INSULATOR TECHNICIAN): Pt with Hx of COPD (former smoker), SHELDON and OHS on 3L O2 chronically and Bipap - Cont home ICS/LABA (formulary substitute for home symbicort) and duonebs prn, bipap and supplemental O2. Assessment & Plan (07/31/2022 1:51 PM INSULATOR TECHNICIAN): Pt with Hx of COPD (former smoker), SHELDON and OHS on 3L O2 chronically and Bipap - Cont home ICS/LABA (formulary substitute for home symbicort) and duonebs prn, bipap and supplemental O2. Assessment & Plan (07/30/2022 1:32 PM INSULATOR TECHNICIAN): Pt with Hx of COPD (former smoker), SHELDON and OHS on 3L O2 chronically and Bipap - Cont home ICS/LABA (formulary substitute for home symbicort) and duonebs prn, bipap and supplemental O2. Assessment & Plan (07/29/2022 2:42 PM INSULATOR TECHNICIAN): Pt with Hx of COPD (former smoker), SHELDON and OHS on 3L O2 chronically and Bipap - Cont home ICS/LABA (formulary substitute for home symbicort) and duonebs prn, bipap and supplemental O2. Assessment & Plan (07/28/2022 2:25 PM INSULATOR TECHNICIAN): Pt with Hx of COPD (former smoker), [...] 04/02/2021 Assessment & Plan (08/04/2022 10:50 AM INSULATOR TECHNICIAN): Patient with hx of left knee surgery 2/2 fracture and Right knee osteoarthritis. Also with hx of gout of Right Toe. Right knee exam is benign. - uric acid elevated - knee x-ray with OA - continue tylenol and oxycodone, added lidocaine patch Assessment & Plan (08/02/2022 2:22 PM INSULATOR TECHNICIAN): Patient with hx of left knee surgery 2/2 fracture and Right knee osteoarthritis. Also with hx of gout of Right Toe - uric acid elevated - ordered knee x-ray and pending - limited by YAYA with use of nsaids - continue tylenol [...] (12/17/2021 1:05 PM CDT): - CPAP nightly. [facility] notes report CPAP at 6mm H2O with 2L O2 bleed in Assessment & Plan (12/16/2021 3:38 PM CDT): - CPAP nightly. [facility] notes report CPAP at 6mm H2O with 2L O2 bleed in Assessment & Plan (12/15/2021 10:05 AM CDT): - CPAP nightly. [facility] notes report CPAP at 6mm H2O with 2L O2 bleed in Assessment & Plan (12/14/2021 11:36 AM CDT): - CPAP nightly. [facility] notes report CPAP at 6mm H2O with 2L O2 bleed in Assessment & Plan (12/13/2021 10:36 AM CDT): - CPAP nightly. SNF notes report CPAP at 6mm H2O with 2L O2 bleed in Assessment & Plan (12/11/2021 10:45 PM CDT): - CPAP nightly. [facility] notes report CPAP at 6mm [...] Assessment & Plan (12/12/2021 9:36 AM CDT): Xarelvictoriano dilt Subclinical hypothyroidism 12/10/2018 Assessment & Plan (08/03/2022 3:28 PM INSULATOR TECHNICIAN): Continue home synthyroid Assessment & Plan (08/02/2022 2:24 PM INSULATOR TECHNICIAN): Continue home synthyroid Assessment & Plan (08/01/2022 10:57 AM INSULATOR TECHNICIAN): Continue home synthyroid Assessment & Plan (07/31/2022 1:51 PM INSULATOR TECHNICIAN): Continue home synthyroid Assessment & Plan (07/30/2022 1:33 PM INSULATOR TECHNICIAN): Continue home synthyroid Assessment & Plan (07/27/2022 8:24 PM INSULATOR TECHNICIAN): Continue home synthyroid Assessment & Plan (01/23/2022 [...] 03/19/2018 Assessment & Plan (08/03/2022 3:26 PM INSULATOR TECHNICIAN): Continue home xarelto Assessment & Plan (08/02/2022 2:24 PM INSULATOR TECHNICIAN): Continue home xarelto Assessment & Plan (08/01/2022 10:57 AM INSULATOR TECHNICIAN): Continue home xarelto Assessment & Plan (07/31/2022 1:51 PM INSULATOR TECHNICIAN): Continue home xarelto Assessment & Plan (07/30/2022 1:33 PM INSULATOR TECHNICIAN): Continue home xarelto Assessment & Plan (07/27/2022 8:25 PM INSULATOR TECHNICIAN): Continue home xarelto Assessment & Plan (01/23/2022 [...] embolus less than 3 months ago no [place] details she has had numerous hospitalizations in [...] (10/27/2017): Added automatically from request for surgery [id number] Restless leg 10/18/2017 Assessment & Plan (08/03/2022 3:28 PM INSULATOR TECHNICIAN): Continue pramipexole Assessment & Plan (08/02/2022 2:23 PM INSULATOR TECHNICIAN): Continue pramipexole Assessment & Plan (08/01/2022 10:57 AM INSULATOR TECHNICIAN): Continue pramipexole Assessment & Plan (07/31/2022 1:51 PM INSULATOR TECHNICIAN): Continue pramipexole Assessment & Plan (07/30/2022 1:33 PM INSULATOR TECHNICIAN): Continue pramipexole Assessment & Plan (07/27/2022 8:23 PM INSULATOR TECHNICIAN): Continue pramipexole Assessment & Plan (12/17/2021 1:04 [...] 10/18/2017 Assessment & Plan (10/18/2017 6:00 PM INSULATOR TECHNICIAN): Informed patient today that she would need to comply with this office recommendations on management of her multiple chronic conditions, failure to do so, would mean that she would need to find another primary care provider. Chronic pain syndrome 10/18/2017 Assessment & Plan (12/17/2021 1:04 PM CDT): Chronic pain of bilateral legs s/p fracture, shoulder and back. On [place] 7.5-325 q6h prn at home - tylenol 1g q6h prn, oxycodone 10mg q6h prn - home gabapentin 100mg TID - scheduled and prn bowel regimen - started lidoderm patches for most painful area Assessment & Plan (12/16/2021 3:37 PM CDT): chronic pain of bilateral legs s/p fracture, shoulder and back. On [place] 7.5-325 q6h prn at home - tylenol 1g q6h prn, oxycodone 10mg q6h prn - home gabapentin 100mg TID - scheduled and prn bowel regimen - started lidoderm patches for most painful area Assessment & Plan (12/15/2021 10:05 AM CDT): chronic pain of bilateral legs s/p fracture, shoulder and back. On [place] 7.5-325 q6h prn at home - tylenol 1g q6h prn, oxycodone 10mg q6h prn - home gabapentin 100mg TID - scheduled and prn bowel regimen - started lidoderm patches for most painful area Assessment & Plan (12/14/2021 11:36 AM CDT): chronic pain of bilateral legs s/p fracture, shoulder and back. On [place] 7.5-325 q6h prn at home - tylenol 1g q6h prn, oxycodone 10mg q6h prn - home gabapentin 100mg TID - scheduled and prn bowel regimen - started lidoderm patches for most painful area Assessment & Plan (12/13/2021 10:36 AM CDT): chronic pain of bilateral legs s/p fracture, shoulder and back. On [place] 7.5-325 q6h prn at home - tylenol 1g q6h prn, oxycodone 10mg q6h prn - home gabapentin 100mg TID - scheduled and prn bowel regimen - started lidoderm patches for most painful area Assessment & Plan (12/12/2021 9:35 AM CDT): chronic pain of bilateral legs s/p fracture, shoulder and back. On [place] 7.5-325 q6h prn at home - tylenol [...] events Assessment & Plan (10/18/2017 5:57 PM INSULATOR TECHNICIAN): Referred to pain mgmt for further eval/tx. Wound dehiscence 10/18/2017 Assessment & Plan (10/18/2017 5:58 PM INSULATOR TECHNICIAN): Referral given 2 months ago to be seen by wound care. Patient did not follow up with them. Seizure disorder 07/20/2017 Assessment & Plan (08/03/2022 3:28 PM INSULATOR TECHNICIAN): Controlled. Continue home keppra & oxcarbazapine. Assessment & Plan (08/02/2022 2:23 PM INSULATOR TECHNICIAN): Controlled. Continue home keppra & oxcarbazapine. Assessment & Plan (08/01/2022 10:57 AM INSULATOR TECHNICIAN): Controlled. Continue home keppra & oxcarbazapine. Assessment & Plan (07/31/2022 1:51 PM INSULATOR TECHNICIAN): Controlled. Continue home keppra & oxcarbazapine. Assessment & Plan (07/30/2022 1:33 PM INSULATOR TECHNICIAN): Controlled. Continue home keppra & oxcarbazapine. Assessment & Plan (07/27/2022 8:25 PM INSULATOR TECHNICIAN): Controlled. Continue home keppra & oxcarbazapine. Assessment [...] on gabapentin patient was previously followed at [facility] in [facility]. Plans continue gabapentin this time Assessment & Plan (10/18/2017 5:56 PM INSULATOR TECHNICIAN): Self-reported, patient was referred to neurology 2 months ago immediately after she reported a seizure. Patient did not mellisa appt with neurology, patient encouraged to comply. Personality disorder 07/20/2017 Assessment & Plan (03/19/2018 2:33 PM CDT): Psychiatric referral made Assessment & Plan (10/18/2017 5:53 PM INSULATOR TECHNICIAN): Encouraged patient to f/u through with Psychiatry referral. Bipolar 1 disorder, depressed, mild 07/20/2017 Assessment & Plan (08/03/2022 3:17 PM INSULATOR TECHNICIAN): Symptoms controlled, cont home regimen of sertraline, Seroquel Assessment & Plan (08/02/2022 2:23 PM INSULATOR TECHNICIAN): Symptoms controlled, cont home regimen of sertraline, Seroquel Assessment & Plan (08/01/2022 10:56 AM INSULATOR TECHNICIAN): Symptoms controlled, cont home regimen of sertraline, Seroquel Assessment & Plan (07/31/2022 1:51 PM INSULATOR TECHNICIAN): Symptoms controlled, cont home regimen of sertraline, Seroquel Assessment & Plan (07/30/2022 1:33 PM INSULATOR TECHNICIAN): Symptoms controlled, cont home regimen of sertraline, Seroquel Assessment & Plan (07/29/2022 2:42 PM INSULATOR TECHNICIAN): Symptoms controlled, cont home regimen of sertraline, Seroquel Assessment & Plan (07/27/2022 8:23 PM INSULATOR TECHNICIAN): Symptoms controlled, cont home regimen of sertraline, [...] hallucinations. Assessment & Plan (10/18/2017 5:53 PM INSULATOR TECHNICIAN): Rx refills given. Encouraged patient to f/u [...] therapy Assessment & Plan (10/18/2017 5:51 PM INSULATOR TECHNICIAN): Hypertension is improving with treatment. Continue current treatment regimen. Dietary sodium restriction. Weight loss. Continue current medications. Blood pressure will be reassessed at the next regular appointment. Insomnia 07/20/2017 Assessment & Plan (10/18/2017 5:52 PM INSULATOR TECHNICIAN): Will not fill both trazodone AND ambien, [...] 07/20/2017 Assessment & Plan (10/18/2017 5:56 PM INSULATOR TECHNICIAN): Encouraged patient to follow through with nephrology referral she was given 2 months ago. Referral re-printed. Class 3 severe obesity with body mass index (BMI) greater than or equal to 70 in adult 07/20/2017 Assessment & Plan (08/03/2022 3:26 PM INSULATOR TECHNICIAN): Pt with severe obesity, complicated by SHELDON/OHS. Leg fractures in 2020 managed nonoperatively, pt has been bed bound and living in SNF since that time. Assessment & Plan (08/02/2022 2:23 PM INSULATOR TECHNICIAN): Pt with severe obesity, complicated by SHELDON/OHS. Leg fractures in 2020 managed nonoperatively, pt has been bed bound and living in SNF since that time. Assessment & Plan (08/01/2022 10:56 AM INSULATOR TECHNICIAN): Pt with severe obesity, complicated by SHELDON/OHS. Leg fractures in 2020 managed nonoperatively, pt has been bed bound and living in SNF since that time. Assessment & Plan (07/31/2022 1:51 PM INSULATOR TECHNICIAN): Pt with severe obesity, complicated by SHELDON/OHS. Leg fractures in 2020 managed nonoperatively, pt has been bed bound and living in SNF since that time. Assessment & Plan (07/30/2022 1:33 PM INSULATOR TECHNICIAN): Pt with severe obesity, complicated by SHELDON/OHS. Leg fractures in 2020 managed nonoperatively, pt has been bed bound and living in SNF since that time. Assessment & Plan (07/27/2022 8:25 PM INSULATOR TECHNICIAN): Pt with severe obesity, complicated by SHELDON/OHS. [...] she informs me that Dr. Panda in [facility] is willing to move this pannus patient referred to this particular physician to address this problem soon as possible. 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 Assessment & Plan (10/18/2017 5:56 PM INSULATOR TECHNICIAN): Obesity is unchanged. Discussed the patient's BMI. [...] = 0.6 oz pur e alcohol) Occasional [employer] Utilities Answer Date Recorded In the past 12 months has th e electric, gas, oil, or water company threatened to shut off services in your home? No 01/15/2025 Social Connection and Isolation Panel [NHANES] A nswer Date Recorded In a typical week, how many times do you talk on the phone with family, friends, or neighbors? Once a week 01/15/2025 How often do you get together with friends or re latives? Once a week 01/15/2025 How often do you attend yarsani or cheondoism serv ices? Never 01/15/2025 Do you belong to any clubs o r organizations such as yarsani groups, unions, fraternal or athletic groups, or school groups? No 01/15/2025 How often do you attend meet ings of the clubs or organizations you belong to? Never 01/15/2025 Are you , , di vorced, , never , or living with a partner? 01/15/2025 AUDIT-C Answer Date Recorded Q1: How often [...] housing, medical care, and heating? Somewhat hard 01/15/2025 PHQ-2 Answer Date Recorded PHQ-2 Total Score 6 07/30/2022 Hunger Vital Sign Answer Date Recorded Within the past 12 months, y ou worried that your food would run out before you got the money to buy more. Sometimes true Within the past 12 months, t he food you bought just didn't last and you didn't have money to get more. Sometimes true 01/2025 PRAPARE - Transportation Answer Date Re corded In the past 12 months, has l ack of transportation kept you from medical appointments or from getting medications? Yes 01/2025 In the past 12 months, has l ack of transportation kept you from meetings, work, or from getting things needed for daily living? Yes 01/15/2025 Housing Stability Vital Sign Answer Pepe e [...] place to sleep or slept in a fpc (including now)? No 07/30/2022 Housing Stability Vital Sign Answer Pepe e Recorded In the last 12 months, was t here a time when you were not able to pay the mortgage or rent on time? No 01/15/2025 In the past 12 months, how m any times have you moved where you were living? 0 01/15/2025 At any time in the past 12 m [facility], were you homeless or living in a fpc (including now)? No 01/15/2025 Personal Safety Answer Date Recorded Have you ever been in or are you currently in a harmful physical or emotional relationship or is someone making you feel afraid or unsafe? Denies 01/14/2025 Education Answer Date Recorded What is the [...] Sign Reading Time Taken Comments Blood Pressure 152/60 01/20/2025 12:35 PM CDT Pulse 73 01/20/2025 12:35 PM CDT Temperature 36.9 C (98.4 F) 01/20/2025 12:35 PM CDT Respiratory Rate 17 01/20/2025 12:50 AM CDT Oxygen Saturation 97% 01/20/2025 12:35 PM CDT Inhaled Oxygen Concentration - - Weight 175 kg (385 lb 12.9 oz) 01/20/2025 6:00 A M CDT Height 172 cm (5' 7.72) 01/14/2025 4:59 PM CDT Body Mass Index 59.15 01/14/2025 4:59 PM CDT Results * POCT glucose (01/20/2025 11:46 AM CDT) Glucose, POC 137 70 - 199 mg/dL POC Performer [id number] JOHAN LEON Blood 01/20/2025 11:4 6 AM CDT 01/20/2025 11:46 AM CDT Ward Perez DO LAB POCT ORDERABLES - DEV ICE Final Result Performing Organization Address City/[facility]/ZIP Co de Phone Number [facility] [address] [place] [employer] [address] * (ABNORMAL) eGFR (01/20/2025 6:17 AM CDT) eGFR 17(L) >=60 mL/min/1. 73 m2 Comment: Interpretive Data [...] interpretive data was last reviewed 2021. Blood 01/20/2025 6:17 AM CDT 01/20/2025 7:16 AM CDT Bessie Charlton CAN STERILIZER LAB BLOOD ORDERABLES Final Result Performing Organization Address City/[facility]/ZIP Co de Phone Number JOHAN [address] [place] [address] * (ABNORMAL) Differential, auto (01/20/2025 6:17 AM CDT) Neutrophil abs 3.69 1.50 - 6.50 K/cumm Imm gran abs 0.34(H) 0.00 - 0.10 K/cumm [facility] Lymphocyte abs 0.84 0.80 - 3.30 K/cumm [facility] Monocyte abs 0.47 0.20 - 0.80 K/cumm [facility] Eosinophil abs 0.00 0.00 - 0.50 K/cumm [facility] Basophil abs 0.01 0.00 - 0.10 K/cumm [facility] Neutrophil pct 68.9 % [facility] Comment: Interpretive Data Percent cell count reference ranges are not reported, since discordance with absolute values may lead to misinterpretation of CBC data. Current Interpretive Data was last revised on 2017. Imm gran pct 6.4 % [facility] Comment: Interpretive Data Percent cell count reference ranges are not reported, since discordance with absolute values may lead to misinterpretation of CBC data. Current Interpretive Data was last revised on 2017. Lymphocyte pct 15.7 % [facility] Comment: Interpretive Data Percent cell count reference ranges are not reported, since discordance with absolute values may lead to misinterpretation of CBC data. Current Interpretive Data was last revised on 2017. Monocyte pct 8.8 % [facility] Comment: Interpretive Data Percent cell count reference ranges are not reported, since discordance with absolute values may lead to misinterpretation of CBC data. Current Interpretive Data was last revised on 2017. Eosinophil pct 0.0 % [facility] Comment: Interpretive Data Percent cell count reference ranges are not reported, since discordance with absolute values may lead to misinterpretation of CBC data. Current Interpretive Data was last revised on 2017. Basophil pct 0.2 % [facility] Comment: Interpretive Data Percent cell count reference ranges are not reported, since discordance with absolute values may lead to misinterpretation of CBC data. Current Interpretive Data was last revised on 2017. Blood 01/20/2025 6:17 AM CDT 01/20/2025 7:15 AM CDT Bessie Charlton NP LAB BLOOD ORDERABLES Final Result JOHAN [address] [place] [address] * (ABNORMAL) CBC with auto differential (01/20/2025 6:17 AM CDT) WBC 5.35 3.80 - 9.90 K/cumm Hgb 8.4(L) 11.9 - 15.5 g/dL [facility] Hct 27.3(L) 35.6 - 45.5 % [facility] Plt 172 150 - 400 K/cumm [facility] MPV 8.8(L) 9.1 - 12.3 fL [facility] RBC 2.86(L) 3.90 - 5.20 M/cumm [facility] MCV 95.5 81.3 - 96.4 fL [facility] MCH 29.4 27.1 - 33.3 pg [facility] MCHC 30.8(L) 32.3 - 35.7 g/dL [facility] RDW CV 14.3 11.1 - 14.9 % [facility] RDW SD 47.7 35.7 - 48.1 fL [facility] NRBC abs 0.03(H) 0.00 - 0.01 K/cumm [facility] Blood 01/20/2025 6:17 AM CDT 01/20/2025 7:15 AM CDT Bessie Charlton CAN STERILIZER LAB BLOOD ORDERABLES Final Result JOHAN [address]cd[address] Department [place] [address] * (ABNORMAL) Basic metabolic panel (01/20/2025 6:17 AM CDT) Sodium 138 135 - 145 mmol/L Potassium, pl 3.8 3.3 - 4.9 mmol/L [facility] Chloride 98 97 - 110 mmol/L [facility] CO2 28 22 - 32 mmol/L [facility] Anion gap 12 2 - 15 mmol/L [facility] BUN 20 6 - 25 mg/dL [facility] Creatinine 3.01(H) 0.60 - 1.10 mg/dL [facility] Glucose 100 70 - 199 mg/dL [facility] Comment: Interpretive Data Fasting glucose >/= 126 [...] interpretive data was last revised 2022. Calcium 9.7 8.5 - 10.3 mg/dL [facility] Blood 01/20/2025 6:17 AM CDT 01/20/2025 7:16 AM CDT us Bessie Charlton NP LAB BLOOD ORDERABLES Final Result Performing Organization Address City/[facility]/ZIP Co de Phone Number JOHAN LEON [address] [address] M Department [place] [address] * POCT glucose (01/20/2025 6:13 AM CDT) Glucose, POC 102 70 - 199 mg/dL POC Performer [id number] [facility] Blood 01/20/2025 6:13 AM CDT 01/20/2025 6:13 AM CDT Soy Peterson MD LAB POCT ORDERABLES - DEVICE Final Result JOHAN LEON [address] [address] [place] [address] * POCT glucose (01/19/2025 8:12 PM CDT) Glucose, POC 120 70 - 199 mg/dL POC Performer [id number] [facility] Blood 01/19/2025 8:12 PM CDT 01/19/2025 8:12 PM CDT Soy Peterson MD LAB POCT ORDERABLES - DEVICE Final Result Performing Organization Address [facility] Co de Phone Number NATANAELWON LEON [address] Maria M [facility] [place] [address] * POCT glucose (01/19/2025 5:20 PM CDT) Glucose, POC 127 70 - 199 mg/dL POC Performer [id number] [facility] Blood 01/19/2025 5:20 PM CDT 01/19/2025 5:20 PM CDT Soy Peterson MD LAB POCT ORDERABLES - DEVICE Final Result Performing Organization Address [facility] Co de Phone Number NATANAELWON [address] Maria M [facility] [place] [address] * POCT glucose (01/19/2025 2:21 PM CDT) Glucose, POC 110 70 - 199 mg/dL POC Performer [id number] [facility] Blood 01/19/2025 2:21 PM CDT 01/19/2025 2:21 PM CDT Soy Peterson MD LAB POCT ORDERABLES - DEVICE Final Result Performing Organization Address City/[facility] Co de Phone Number JOHAN LEON [address] Maria M [facility] [place] [address] * (ABNORMAL) eGFR (01/19/2025 7:31 AM CDT) eGFR 12(L) >=60 mL/min/1. 73 m2 Comment: [...] interpretive data was last reviewed 2021. Blood 01/19/2025 7:31 AM CDT 01/19/2025 7:47 AM CDT Bessie Charlton NP LAB BLOOD ORDERABLES Final Result [facility] [address] [address] Department [place] [address] * (ABNORMAL) Differential, auto (01/19/2025 7:31 AM CDT) Neutrophil abs 3.90 1.50 - 6.50 K/cumm Imm gran abs 0.33(H) 0.00 - 0.10 K/cumm [facility] Lymphocyte abs 0.96 0.80 - 3.30 K/cumm [facility] Monocyte abs 0.52 0.20 - 0.80 K/cumm [facility] Eosinophil abs 0.00 0.00 - 0.50 K/cumm [facility] Basophil abs 0.02 0.00 - 0.10 K/cumm [facility] Neutrophil pct 68.0 % [facility] Comment: Interpretive Data Percent cell count reference ranges are not reported, since discordance with absolute values may lead to misinterpretation of CBC data. Current Interpretive Data was last revised on 2017. Imm gran pct 5.8 % [facility] Comment: Interpretive Data Percent cell count reference ranges are not reported, since discordance with absolute values may lead to misinterpretation of CBC data. Current Interpretive Data was last revised on 2017. Lymphocyte pct 16.8 % [facility] Comment: Interpretive Data Percent cell count reference ranges are not reported, since discordance with absolute values may lead to misinterpretation of CBC data. Current Interpretive Data was last revised on 2017. Monocyte pct 9.1 % [facility] Comment: Interpretive Data Percent cell count reference ranges are not reported, since discordance with absolute values may lead to misinterpretation of CBC data. Current Interpretive Data was last revised on 2017. Eosinophil pct 0.0 % [facility] Comment: Interpretive Data Percent cell count reference ranges are not reported, since discordance with absolute values may lead to misinterpretation of CBC data. Current Interpretive Data was last revised on 2017. Basophil pct 0.3 % [facility] Comment: Interpretive Data Percent cell count reference ranges are not reported, since discordance with absolute values may lead to misinterpretation of CBC data. Current Interpretive Data was last revised on 2017. Blood 01/19/2025 7:31 AM CDT 01/19/2025 7:48 AM CDT Bessie Charlton NP LAB BLOOD ORDERABLES Final Result [facility] [address] [address] Department [place] [address] * (ABNORMAL) CBC with auto differential (01/19/2025 7:31 AM CDT) WBC 5.73 3.80 - 9.90 K/cumm Hgb 8.1(L) 11.9 - 15.5 g/dL [facility] Hct 26.2(L) 35.6 - 45.5 % [facility] Plt 158 150 - 400 K/cumm [facility] MPV 8.5(L) 9.1 - 12.[address] [facility] RBC 2.77(L) 3.90 - 5.20 M/cumm [facility] MCV 94.6 81.3 - 96.4 fL [facility] MCH 29.2 27.1 - 33.3 pg [facility] MCHC 30.9(L) 32.3 - 35.7 g/dL [facility] RDW CV 13.8 11.1 - 14.9 % [facility] RDW SD 46.5 35.7 - 48.1 fL [facility] NRBC abs 0.05(H) 0.00 - 0.01 K/cumm [facility] Blood 01/19/2025 7:31 AM CDT 01/19/2025 7:48 AM CDT Bessie Charlton NP LAB BLOOD ORDERABLES Final Result CERWON [id number] [address] Department [place] [address] * (ABNORMAL) Basic metabolic panel (01/19/2025 7:31 AM CDT) Sodium 137 135 - 145 mmol/L Potassium, pl 3.7 3.3 - 4.9 mmol/L [facility] Chloride 99 97 - 110 mmol/L [facility] CO2 26 22 - 32 mmol/L [facility] Anion gap 12 2 - 15 mmol/L [facility] BUN 33(H) 6 - 25 mg/dL [facility] Creatinine 4.05(H) 0.60 - 1.10 mg/dL [facility] Glucose 102 70 - 199 mg/dL [facility] Comment: Interpretive Data Fasting glucose >/= 126 [...] interpretive data was last revised 2022. Calcium 9.6 8.5 - 10.3 mg/dL [facility] Blood 01/19/2025 7:31 AM CDT 01/19/2025 7:47 AM CDT Bessie Charlton NP LAB BLOOD ORDERABLES Final Result Performing Organization Address [facility] Co de Phone Number JOHAN LEON [address] [address] [facility] [place] [address] * POCT glucose (01/19/2025 6:53 AM CDT) Glucose, POC 115 70 - 199 mg/dL POC Performer [id number] [facility] Blood 01/19/2025 6:53 AM CDT 01/19/2025 6:53 AM CDT Soy Peterson MD LAB POCT ORDERABLES - DEVICE Final Result Performing Organization Address [facility] Co de Phone Number JOHAN LEON [address] [address] M [place] [address] * POCT glucose (01/18/2025 10:35 PM CDT) Glucose, POC 122 70 - 199 mg/dL POC Performer [id number] [facility] Blood 01/18/2025 10:3 5 PM CDT 01/18/2025 10:35 PM CDT Soy Peterson MD LAB POCT ORDERABLES - DEVICE Final Result Performing Organization Address [facility] Co de Phone Number JOHAN LEON [address] Maria M [place] [address] * POCT glucose (01/18/2025 4:52 PM CDT) Glucose, POC 139 70 - 199 mg/dL POC Performer [id number] [facility] Blood 01/18/2025 4:52 PM CDT 01/18/2025 4:52 PM CDT us Soy Peterson MD LAB POCT ORDERABLES - DEVICE Final Result Performing Organization Address [facility] Co de Phone Number JOHAN LEON [address] Maria M [facility] [place], [place] [id number] * POCT glucose (01/18/2025 10:50 AM CDT) Glucose, POC 159 70 - 199 mg/dL POC Performer [id number] [facility] Blood 01/18/2025 10:5 0 AM CDT 01/18/2025 10:50 AM CDT Soy Peterson MD LAB POCT ORDERABLES - DEVICE Final Result Performing Organization Address [facility] de Phone Number JOHAN LEON [address] Maria M [facility] [place] [address] * POCT glucose (01/18/2025 7:35 AM CDT) Glucose, POC 105 70 - 199 mg/dL POC Performer [id number] [facility] Blood 01/18/2025 7:35 AM CDT 01/18/2025 7:35 AM CDT Soy Peterson MD LAB POCT ORDERABLES - DEVICE Final Result Performing Organization Address [facility] Co de Phone Number JOHAN LEON [address] Maria M [facility] [place] [address] * (ABNORMAL) eGFR (01/18/2025 4:04 AM CDT) eGFR 15(L) >=60 mL/min/1. 73 m2 Comment: Interpretive Data [...] interpretive data was last reviewed 2021. Blood 01/18/2025 4:04 AM CDT 01/18/2025 5:27 AM CDT Bessie Charlton NP LAB BLOOD ORDERABLES Final Result [facility] [address] [address] Department [place] [address] * (ABNORMAL) Differential, auto (01/18/2025 4:04 AM CDT) Neutrophil abs 4.06 1.50 - 6.50 K/cumm Imm gran abs 0.25(H) 0.00 - 0.10 K/cumm [facility] Lymphocyte abs 0.87 0.80 - 3.30 K/cumm [facility] Monocyte abs 0.49 0.20 - 0.80 K/cumm [facility] Eosinophil abs 0.00 0.00 - 0.50 K/cumm [facility] Basophil abs 0.02 0.00 - 0.10 K/cumm [facility] Neutrophil pct 71.3 % [facility] Comment: Interpretive Data Percent cell count reference ranges are not reported, since discordance with absolute values may lead to misinterpretation of CBC data. Current Interpretive Data was last revised on 2017. Imm gran pct 4.4 % [facility] Comment: Interpretive Data Percent cell count reference ranges are not reported, since discordance with absolute values may lead to misinterpretation of CBC data. Current Interpretive Data was last revised on 2017. Lymphocyte pct 15.3 % [facility] Comment: Interpretive Data Percent cell count reference ranges are not reported, since discordance with absolute values may lead to misinterpretation of CBC data. Current Interpretive Data was last revised on 2017. Monocyte pct 8.6 % [facility] Comment: Interpretive Data Percent cell count reference ranges are not reported, since discordance with absolute values may lead to misinterpretation of CBC data. Current Interpretive Data was last revised on 2017. Eosinophil pct 0.0 % [facility] Comment: Interpretive Data Percent cell count reference ranges are not reported, since discordance with absolute values may lead to misinterpretation of CBC data. Current Interpretive Data was last revised on 2017. Basophil pct 0.4 % [facility] Comment: Interpretive Data Percent cell count reference ranges are not reported, since discordance with absolute values may lead to misinterpretation of CBC data. Current Interpretive Data was last revised on 2017. Blood 01/18/2025 4:04 AM CDT 01/18/2025 5:22 AM CDT Bessie Charlton CAN STERILIZER LAB BLOOD ORDERABLES Final Result [facility] [address] [address] Department [place] [address] * (ABNORMAL) CBC with auto differential (01/18/2025 4:04 AM CDT) WBC 5.69 3.80 - 9.90 K/cumm Hgb 7.9(L) 11.9 - 15.5 g/dL [facility] Hct 25.6(L) 35.6 - 45.5 % [facility] Plt 198 150 - 400 K/cumm [facility] MPV 9.1 9.1 - 12.[address] [facility] RBC 2.69(L) 3.90 - 5.20 M/cumm [facility] MCV 95.2 81.3 - 96.[address] [facility] MCH 29.4 27.1 - 33.[address] [facility] MCHC 30.9(L) 32.3 - 35.7 g/dL [facility] RDW CV 13.9 11.1 - 14.9 % [facility] RDW SD 47.4 35.7 - 48.1 fL [facility] NRBC abs 0.05(H) 0.00 - 0.01 K/cumm [facility] Blood 01/18/2025 4:04 AM CDT 01/18/2025 5:22 AM CDT Bessie Charlton NP LAB BLOOD ORDERABLES Final Result JOHAN LEON [address] [address] Department [place] [address] * (ABNORMAL) Basic metabolic panel (01/18/2025 4:04 AM CDT) Pathologist [facility] Sodium 139 135 - 145 mmol/L Potassium, pl 3.8 3.3 - 4.9 mmol/L [facility] Chloride 99 97 - 110 mmol/L [facility] CO2 27 22 - 32 mmol/L [facility] Anion gap 13 2 - 15 mmol/L [facility] BUN 29(H) 6 - 25 mg/dL [facility] Creatinine 3.23(H) 0.60 - 1.10 mg/dL [facility] Glucose 89 70 - 199 mg/dL [facility] Comment: Interpretive Data Fasting glucose >/= 126 [...] interpretive data was last revised 2022. Calcium 9.3 8.5 - 10.3 mg/dL [facility] Blood 01/18/2025 4:04 AM CDT 01/18/2025 5:27 AM CDT Bessie Charlton NP LAB BLOOD ORDERABLES Final Result JOHAN LEON [address] [address] [facility] [place] [address] * POCT glucose (01/17/2025 8:08 PM CDT) Glucose, POC 148 70 - 199 mg/dL POC Performer [id number] [facility] Blood 01/17/2025 8:08 PM CDT 01/17/2025 8:08 PM CDT Soy Peterson MD LAB POCT ORDERABLES - DEVICE Final Result Performing Organization Address City/[facility]/ZIP Co de Phone Number NATANAELWON LEON [address] [place] [address] * POCT glucose (01/17/2025 5:17 PM CDT) Glucose, POC 119 70 - 199 mg/dL POC Performer [id number] [facility] Blood 01/17/2025 5:17 PM CDT 01/17/2025 5:17 PM CDT Soy Peterson MD LAB POCT ORDERABLES - DEVICE Final Result Performing Organization Address City/[facility] Co de Phone Number NATANAELWON LEON [address] Maria M [facility] [place] [address] * POCT glucose (01/17/2025 2:20 PM CDT) Glucose, POC 131 70 - 199 mg/dL POC Performer [id number] [facility] Blood 01/17/2025 2:20 PM CDT 01/17/2025 2:20 PM CDT Soy Peterson MD LAB POCT ORDERABLES - DEVICE Final Result Performing Organization Address City/[facility]/ZIP Co de Phone Number JOHAN LEON [address] [place] [address] * POCT glucose (01/17/2025 7:31 AM CDT) Glucose, POC 123 70 - 199 mg/dL POC Performer [id number] JOHAN Blood 01/17/2025 7:31 AM CDT 01/17/2025 7:31 AM CDT Soy Peterson MD LAB POCT ORDERABLES - DEVICE Final Result Performing Organization Address City/[facility]/ZIP Co de Phone Number JOHAN LEON [address] Maria M Department [place] [address] * (ABNORMAL) eGFR (01/17/2025 5:37 AM CDT) [facility] eGFR 8(L) >=60 mL/min/1. 73 [...] interpretive data was last reviewed 2021. Blood 01/17/2025 5:37 AM CDT 01/17/2025 5:52 AM CDT Bessie Charlton NP LAB BLOOD ORDERABLES Final Result Performing Organization Address City/[facility]/ZIP Co de Phone Number JOHAN [address] Maria M Department [place] [address] * (ABNORMAL) Differential, auto (01/17/2025 5:37 AM CDT) Neutrophil abs 4.78 1.50 - 6.50 K/cumm Imm gran abs 0.26(H) 0.00 - 0.10 K/cumm [facility] Lymphocyte abs 0.76(L) 0.80 - 3.30 K[facility]cumm [facility] Monocyte abs 0.48 0.20 - 0.80 K/cumm [facility] Eosinophil abs 0.00 0.00 - 0.50 K/cumm [facility] Basophil abs 0.02 0.00 - 0.10 K/cumm [facility] Neutrophil pct 75.9 % [facility] Comment: Interpretive Data Percent cell count reference ranges are not reported, since discordance with absolute values may lead to misinterpretation of CBC data. Current Interpretive Data was last revised on 2017. Imm gran pct 4.1 % [facility] Comment: Interpretive Data Percent cell count reference ranges are not reported, since discordance with absolute values may lead to misinterpretation of CBC data. Current Interpretive Data was last revised on 2017. Lymphocyte pct 12.1 % [facility] Comment: Interpretive Data Percent cell count reference ranges are not reported, since discordance with absolute values may lead to misinterpretation of CBC data. Current Interpretive Data was last revised on 2017. Monocyte pct 7.6 % [facility] Comment: Interpretive Data Percent cell count reference ranges are not reported, since discordance with absolute values may lead to misinterpretation of CBC data. Current Interpretive Data was last revised on 2017. Eosinophil pct 0.0 % [facility] Comment: Interpretive Data Percent cell count reference ranges are not reported, since discordance with absolute values may lead to misinterpretation of CBC data. Current Interpretive Data was last revised on 2017. Basophil pct 0.3 % [facility] Comment: Interpretive Data Percent cell count reference ranges are not reported, since discordance with absolute values may lead to misinterpretation of CBC data. Current Interpretive Data was last revised on 2017. Blood 01/17/2025 5:37 AM CDT 01/17/2025 5:51 AM CDT Bessie Charlton CAN STERILIZER LAB BLOOD ORDERABLES Final Result JOHAN [address] [place] [address] * (ABNORMAL) CBC with auto differential (01/17/2025 5:37 AM CDT) WBC 6.30 3.80 - 9.90 K/cumm Hgb 7.7(L) 11.9 - 15.5 g/dL [facility] Hct 26.4(L) 35.6 - 45.5 % [facility] Plt 181 150 - 400 K/cumm [facility] MPV 8.9(L) 9.1 - 12.3 fL [facility] RBC 2.65(L) 3.90 - 5.20 M/cumm [facility] MCV 99.6(H) 81.3 - 96.4 fL [facility] Comment:No apparent cause fo r delta. MCH 29.1 27.1 - 33.3 pg [facility] MCHC 29.2(L) 32.3 - 35.7 g/dL [facility] RDW CV 14.0 11.1 - 14.9 % [facility] RDW SD 50.5(H) 35.7 - 48.1 fL [facility] NRBC abs 0.04(H) 0.00 - 0.01 K/cumm [facility] Blood 01/17/2025 5:37 AM CDT 01/17/2025 5:51 AM CDT Bessie Charlton NP LAB BLOOD ORDERABLES Final Result JOHAN [address] Department [place], [place] [id number] * (ABNORMAL) Basic metabolic panel (01/17/2025 5:37 AM CDT) Sodium 139 135 - 145 mmol/L Potassium, pl 4.7 3.3 - 4.9 mmol/L [facility] Chloride 101 97 - 110 mmol/L [facility] CO2 23 22 - 32 mmol/L [facility] Anion gap 15 2 - 15 mmol/L [facility] BUN 61(H) 6 - 25 mg/dL [facility] Creatinine 5.33(H) 0.60 - 1.10 mg/dL [facility] Glucose 113 70 - 199 mg/dL [facility] Comment: Interpretive Data Fasting glucose >/= 126 [...] interpretive data was last revised 2022. Calcium 9.3 8.5 - 10.3 mg/dL [facility] Blood 01/17/2025 5:37 AM CDT 01/17/2025 5:52 AM CDT Bessie Charlton NP LAB BLOOD ORDERABLES Final Result Performing Organization Address City/[facility]/ZIP Co de Phone Number JOHAN LEON [address] [address] [employer] [place], [place] [id number] * POCT glucose (01/16/2025 10:38 PM CDT) [facility] Glucose, POC 147 70 - 199 mg/dL POC Performer [id number] [facility] Blood 01/16/2025 10:3 8 PM CDT 01/16/2025 10:38 PM CDT Soy Peterson MD LAB POCT ORDERABLES - DEVICE Final Result JOHAN LEON [address] [address] [place] [address] * POCT glucose (01/16/2025 4:58 PM CDT) Glucose, POC 137 70 - 199 mg/dL POC Performer [id number] [facility] Blood 01/16/2025 4:58 PM CDT 01/16/2025 4:58 PM CDT Soy Peterson MD LAB POCT ORDERABLES - DEVICE Final Result Performing Organization Address [facility] Co de Phone Number NATANAELWON LEON [address] Maria M [facility] [place] [address] * POCT glucose (01/16/2025 11:08 AM CDT) Glucose, POC 149 70 - 199 mg/dL POC Performer [id number] [facility] Blood 01/16/2025 11:0 8 AM CDT 01/16/2025 11:08 AM CDT Soy Peterson MD LAB POCT ORDERABLES - DEVICE Final Result Performing Organization Address [facility] de Phone Number NATANAELWON LEON [address] Maria M [facility] [place] [address] * POCT glucose (01/16/2025 6:59 AM CDT) Glucose, POC 141 70 - 199 mg/dL POC Performer [id number] [facility] Blood 01/16/2025 6:59 AM CDT 01/16/2025 6:59 AM CDT Soy Peterson MD LAB POCT ORDERABLES - DEVICE Final Result Performing Organization Address City/[facility] Co de Phone Number OJHAN LEON [address] Maria M [facility] [place] [address] * (ABNORMAL) eGFR (01/16/2025 5:25 AM CDT) eGFR 9(L) >=60 mL/min/1. 73 m2 Comment: [...] interpretive data was last reviewed 2021. Blood 01/16/2025 5:25 AM CDT 01/16/2025 6:06 AM CDT Bessie Charlton NP LAB BLOOD ORDERABLES Final Result [facility] [address] [address] Department [place] [address] * (ABNORMAL) Differential, auto (01/16/2025 5:25 AM CDT) Neutrophil abs 4.50 1.50 - 6.50 K/cumm Imm gran abs 0.12(H) 0.00 - 0.10 K/cumm [facility] Lymphocyte abs 0.65(L) 0.80 - 3.30 K/cumm [facility] Monocyte abs 0.47 0.20 - 0.80 K/cumm [facility] Eosinophil abs 0.00 0.00 - 0.50 K/cumm [facility] Basophil abs 0.01 0.00 - 0.10 K/cumm [facility] Neutrophil pct 78.2 % [facility] Comment: Interpretive Data Percent cell count reference ranges are not reported, since discordance with absolute values may lead to misinterpretation of CBC data. Current Interpretive Data was last revised on 2017. Imm gran pct 2.1 % [facility] Comment: Interpretive Data Percent cell count reference ranges are not reported, since discordance with absolute values may lead to misinterpretation of CBC data. Current Interpretive Data was last revised on 2017. Lymphocyte pct 11.3 % [facility] Comment: Interpretive Data Percent cell count reference ranges are not reported, since discordance with absolute values may lead to misinterpretation of CBC data. Current Interpretive Data was last revised on 2017. Monocyte pct 8.2 % [facility] Comment: Interpretive Data Percent cell count reference ranges are not reported, since discordance with absolute values may lead to misinterpretation of CBC data. Current Interpretive Data was last revised on 2017. Eosinophil pct 0.0 % [facility] Comment: Interpretive Data Percent cell count reference ranges are not reported, since discordance with absolute values may lead to misinterpretation of CBC data. Current Interpretive Data was last revised on 2017. Basophil pct 0.2 % [facility] Comment: Interpretive Data Percent cell count reference ranges are not reported, since discordance with absolute values may lead to misinterpretation of CBC data. Current Interpretive Data was last revised on 2017. Blood 01/16/2025 5:25 AM CDT 01/16/2025 6:06 AM CDT Bessie Charlton NP LAB BLOOD ORDERABLES Final Result [facility] [id number] [address] Department [place] [address] * (ABNORMAL) CBC with auto differential (01/16/2025 5:25 AM CDT) WBC 5.75 3.80 - 9.90 K/cumm Hgb 7.6(L) 11.9 - 15.5 g/dL [facility] Hct 24.6(L) 35.6 - 45.5 % [facility] Plt 193 150 - 400 K/cumm [facility] MPV 9.1 9.1 - 12.[address] [facility] RBC 2.61(L) 3.90 - 5.20 M/cumm [facility] MCV 94.3 81.3 - 96.4 fL [facility] MCH 29.1 27.1 - 33.3 pg [facility] MCHC 30.9(L) 32.3 - 35.7 g/dL [facility] RDW CV 14.0 11.1 - 14.9 % [facility] RDW SD 47.8 35.7 - 48.1 fL [facility] NRBC abs 0.03(H) 0.00 - 0.01 K/cumm [facility] Blood 01/16/2025 5:25 AM CDT 01/16/2025 6:06 AM CDT Bessie Charlton NP LAB BLOOD ORDERABLES Final Result JOHAN [address] [address] Department [place] [address] * (ABNORMAL) Basic metabolic panel (01/16/2025 5:25 AM CDT) Sodium 138 135 - 145 mmol/L Potassium, pl 4.4 3.3 - 4.9 mmol/L [facility] Chloride 100 97 - 110 mmol/L [facility] CO2 24 22 - 32 mmol/L [facility] Anion gap 14 2 - 15 mmol/L [facility] BUN 53(H) 6 - 25 mg/dL [facility] Creatinine 4.91(H) 0.60 - 1.10 mg/dL [facility] Glucose 134 70 - 199 mg/dL [facility] Comment: Interpretive Data Fasting glucose >/= 126 [...] interpretive data was last revised 2022. Calcium 9.0 8.5 - 10.3 mg/dL [facility] Blood 01/16/2025 5:25 AM CDT 01/16/2025 6:06 AM CDT Bessie Charlton NP LAB BLOOD ORDERABLES Final Result Performing Organization Address [facility] Co de Phone Number JOHAN LEON [address] [address] [place] [address] * (ABNORMAL) POCT glucose (01/15/2025 8:46 PM CDT) Glucose, POC 201(H) 70 - 199 mg/dL POC Performer [id number] [facility] Blood 01/15/2025 8:46 PM CDT 01/15/2025 8:46 PM CDT Soy Peterson MD LAB POCT ORDERABLES - DEVICE Final Result Performing Organization Address [facility] de Phone Number JOHAN [address] [address] Department [place] [address] * (ABNORMAL) Urinalysis reflex to microscopic and culture Urine (01/15/2025 3:50 PM CDT) Color, ur Susy Yellow Clarity, ur Turbid(A) Clear [facility] Specific gravity, ur 1.011 1.003 - 1.030 [facility] pH, urine 6.5 [facility] Comment: Interpretive Data U rine pH is affected by diet, medications, systemic acid-base disturbances, and renal tubular function. pH may affect urinary stone formation. For example, urine pH below 6.0 may help reduce the tendency for calcium phosphate stones and pH greater than 6.0 may reduce the tendency for uric acid stone formation. Source: [facility] [place] Current Interpretive Data was last revised on 2017 Protein, ur ql 1+(A) Negative [facility] Glucose, ur ql Negative Negative [facility] Ketones, ur Negative Negative [facility] Bilirubin, ur Negative Negative [facility] Blood, ur 2+(A) Negative [facility] Urobilinogen, ur <2.0 <2.0 mg/dL [facility] Nitrite, ur Negative Negative [facility] Leukocyte esterase, ur 4+(A) Negative [facility] UA reflex comment Reflex to microscopic UA will be performed. [facility] Urine 01/15/2025 3:50 PM CDT 01/15/2025 3:50 PM CDT [facility] MICROBIOLOGY - G ENERAL ORDERABLES Final Result Performing Organization Address [facility] Co de Phone Number [facility] [phone] [address] Department [place] [address] * (ABNORMAL) Urinalysis, microscopic only (01/15/2025 3:50 PM CDT) WBC, ur >50(A) 0 - 5 /HPF RBC, ur 21-50(A) 0 - 2 /HPF [facility] Epithelial cells, squamous, ur 1-5 0 - 5 /HPF [facility] Bacteria, ur Trace(A) [facility] Culture Reflex Comment Reflex to urine culture will be performed. 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 Please submit a new specimen with special attention given to the collection process and to prompt transport to the laboratory. (.) Comment:Testing performed by : [facility], [address], [place]., [address] Organism GROWTH INDICATES CONTAMINATION WITH MIXED DEENA. [facility] Urine 01/15/2025 3:50 PM CDT 01/15/2025 7:03 PM CDT Narrative [facility] - 01/16/2025 2:21 PM CDT Urine culture reflexed based upon urinalysis results. Testing performed by [facility] Microbiology Laboratory ([phone]) Bessie Charlton NP LAB MICROBIOLOGY - G ENERAL ORDERABLES Final Result Performing Organization Address City/[facility]/ZIP Co de Phone Number [facility] [address] [address] [place] [address] * Hepatitis panel, acute Blood (01/15/2025 3:30 PM CDT) Hep A IgM Nonreactive Nonreactive Comment: Interpretive Data: If Hep A IgM Ab is reported as Equivocal, a new sample should be drawn in two weeks for testing. Current interpretive data was last revised on 19. Hep B core IgM Nonreactive Nonreactive [facility] Comment: Interpretive Data If HepB Core IgM Ab is reported as Equivocal, a new sample should be drawn in two weeks for testing. Current interpretive data was last revised on 19. Hep C Ab Nonreactive Nonreactive [facility] Comment: Interpretive Data Nonreactive: Antibodies to HCV [...] Interpretive data was last revised on 2019. HepBsAg Nonreactive Nonreactive [facility] Blood 01/15/2025 3:30 PM CDT 01/15/2025 4:03 PM CDT Ajith Cruz MD LAB MICROBIOLOGY - GENERAL OR DERABLES Final Result [facility] [address] [address] Department [place] [address] * IR Exchange Tunneled CVC (01/15/2025 12:37 PM CDT) Anatomical Region Laterality Modality Body Left X-Ray Angiograph y 01/15/2025 1:34 PM CDT Impressions 01/15/2025 1:34 PM CDT Successful tunneled catheter placement. Electronically signed by: Sindi Nguyen 01/15/2025 1:34 PM CDT EXAMINATION: IR EXCHANGE TUNNELED CVC DATE: 01/15/2025 11:30 AM HISTORY: ESRD ON DIALYSIS exchange catheter, non functional FLUOROSCOPY TIME: 0.1 minutes TECHNIQUE: The risks, benefits, and alternatives were discussed and informed consent was obtained. Prior to beginning the procedure, universal protocol was performed to confirm the patient's identity and the planned procedure. Maximum sterile barriers including cap, mask, hand hygiene, sterile gloves, sterile gown, large sterile drape and 2% chlorhexidine for cutaneous antisepsis were used. The patient's neck and chest, including the existing tunneled hemodialysis catheter were prepped and draped in the usual sterile fashion. Lidocaine was used to anesthetize the skin and subcutaneous tissues. Contrast was injected through the existing catheter and an SVC gram was performed. This demonstrates no abnormality. After infiltrating the skin in the subclavicular region with lidocaine, the existing catheter cuff was freed with gentle traction and blunt dissection. A guidewire was advanced through the existing tunneled hemodialysis catheter. The tunneled catheter was removed. The new catheter was advanced over the guidewire. The catheter was flushed with heparin and secured in place. A sterile dressing was applied. The final fluoroscopic image demonstrates the catheter with its tip at the cavoatrial junction. No complications were identified. The catheter is ready for immediate use. When treatment is completed, removal can be scheduled by calling [facility] at [phone]. Procedure Note Hill Martínez MD - 01/15/2025 EXAMINATION: IR EXCHANGE TUNNELED CVC DATE: 01/15/2025 11:30 AM HISTORY: ESRD ON DIALYSIS exchange catheter, non functional FLUOROSCOPY TIME: 0.1 minutes TECHNIQUE: The risks, benefits, and alternatives were discussed and informed consent was obtained. Prior to beginning the procedure, universal protocol was performed to confirm the patient's identity and the planned procedure. Maximum sterile barriers including cap, mask, hand hygiene, sterile gloves, sterile gown, large sterile drape and 2% chlorhexidine for cutaneous antisepsis were used. The patient's neck and chest, including the existing tunneled hemodialysis catheter were prepped and draped in the usual sterile fashion. Lidocaine was used to anesthetize the skin and subcutaneous tissues. Contrast was injected through the existing catheter and an SVC gram was performed. This demonstrates no abnormality. After infiltrating the skin in the subclavicular region with lidocaine, the existing catheter cuff was freed with gentle traction and blunt dissection. A guidewire was advanced through the existing tunneled hemodialysis catheter. The tunneled catheter was removed. The new catheter was advanced over the guidewire. The catheter was flushed with heparin and secured in place. A sterile dressing was applied. The final fluoroscopic image demonstrates the catheter with its tip at the cavoatrial junction. No complications were identified. The catheter is ready for immediate use. When treatment is completed, removal can be scheduled by calling [facility] at [phone]. IMPRESSION: Successful tunneled catheter placement. Electronically signed by: Hill Martínez M.D. Oswaldo Blanchard MD IMG IR PROCEDURES Final Resul t * POCT glucose (01/15/2025 11:04 AM CDT) Pathologist [facility] Glucose, POC 149 70 - 199 mg/dL POC Performer [id number] JOHAN LEON Blood 01/15/2025 11:0 4 AM CDT 01/15/2025 11:04 AM CDT Soy Peterson MD LAB POCT ORDERABLES - DEVICE Final Result JOHAN [id number] [address] Department [place] [address] * aPTT (01/15/2025 7:50 AM CDT) aPTT 35 28 - 38 sec Comment: Interpretive Data Heparin therapeutic range: 66.0 - 100.0 seconds. Range based on correlation with therapeutic heparin activity range of 0.3 - 0.7 Units/mL. Current interpretive data was last revised on 2023. Blood 01/15/2025 7:50 AM CDT 01/15/2025 8:06 AM CDT Oswaldo Blanchard MD LAB BLOOD ORDERABLES Final Re sult Performing Organization Address [facility] Co de Phone Number [place] LEON [address] [address] Department [place] [address] * Protime-INR (01/15/2025 7:50 AM CDT) PT 10.9 9.7 - 13.0 sec INR 1.01 0.90 - 1.20 JOHAN LEON Comment: Interpretive data Oral anticoagulant therapeutic ranges: Venous thromboembolism prophylaxis or treatment: 2.0-3.0 CARDIOLOGY Standard range: 2.0-3.0 High-intensity range: 2.5-3.5 Refer to indication-specific guidelines for appropriate target ranges for prosthetic heart valve replacement. Current interpretive data was last revised on 2019. Blood 01/15/2025 7:50 AM CDT 01/15/2025 8:06 AM CDT Oswaldo Blanchard MD LAB BLOOD ORDERABLES Final Re sult Performing Organization Address [facility] Co de Phone Number [place] CAR[place]YN [address] [address] [employer] [address] * POCT glucose (01/15/2025 6:26 AM CDT) Glucose, POC 157 70 - 199 mg/dL POC Performer [id number] JOHAN Blood 01/15/2025 6:26 AM CDT 01/15/2025 6:26 AM CDT Ward Perez DO LAB POCT ORDERABLES - DEV ICE Final Result Performing Organization Address [facility] Co de Phone Number JOHAN LEON [address] [address] Department [place] [address] * (ABNORMAL) eGFR (01/15/2025 4:00 AM CDT) eGFR 6(L) >=60 mL/min/1. 73 m2 Comment: Interpretive Data [...] interpretive data was last reviewed 2021. Blood 01/15/2025 4:00 AM CDT 01/15/2025 4:44 AM CDT Bessie Charlton NP LAB BLOOD ORDERABLES Final Result JOHAN LEON [address] [address] Department [place] [address] * (ABNORMAL) Differential, auto (01/15/2025 4:00 AM CDT) Neutrophil abs 4.87 1.50 - 6.50 K/cumm Imm gran abs 0.15(H) 0.00 - 0.10 K/cumm [facility] Lymphocyte abs 0.56(L) 0.80 - 3.30 K/cumm [facility] Monocyte abs 0.48 0.20 - 0.80 K/cumm [facility] Eosinophil abs 0.00 0.00 - 0.50 K/cumm [facility] Basophil abs 0.02 0.00 - 0.10 K/cumm JOHAN Neutrophil pct 80.1 % [facility] Comment: Interpretive Data Percent cell count reference ranges are not reported, since discordance with absolute values may lead to misinterpretation of CBC data. Current Interpretive Data was last revised on 2017. Imm gran pct 2.5 % JOHAN Comment: Interpretive Data Percent cell count reference ranges are not reported, since discordance with absolute values may lead to misinterpretation of CBC data. Current Interpretive Data was last revised on 2017. Lymphocyte pct 9.2 % JOHAN Comment: Interpretive Data Percent cell count reference ranges are not reported, since discordance with absolute values may lead to misinterpretation of CBC data. Current Interpretive Data was last revised on 2017. Monocyte pct 7.9 % JOHAN Comment: Interpretive Data Percent cell count reference ranges are not reported, since discordance with absolute values may lead to misinterpretation of CBC data. Current Interpretive Data was last revised on 2017. Eosinophil pct 0.0 % JOHAN Comment: Interpretive Data Percent cell count reference ranges are not reported, since discordance with absolute values may lead to misinterpretation of CBC data. Current Interpretive Data was last revised on 2017. Basophil pct 0.3 % JOHAN Comment: Interpretive Data Percent cell count reference ranges are not reported, since discordance with absolute values may lead to misinterpretation of CBC data. Current Interpretive Data was last revised on 2017. Blood 01/15/2025 4:00 AM CDT 01/15/2025 4:44 AM CDT Bessie Charlton NP LAB BLOOD ORDERABLES Final Result JOHAN [address] [address] Department [place] [address] * (ABNORMAL) CBC with auto differential (01/15/2025 4:00 AM CDT) WBC 6.08 3.80 - 9.90 K/cumm Hgb 7.5(L) 11.9 - 15.5 g/dL [facility] Hct 24.1(L) 35.6 - 45.5 % [facility] Plt 201 150 - 400 K/cumm [facility] MPV 9.0(L) 9.1 - 12.3 fL [facility] RBC 2.58(L) 3.90 - 5.20 M/cumm [facility] MCV 93.4 81.3 - 96.4 fL [facility] MCH 29.1 27.1 - 33.3 pg [facility] MCHC 31.1(L) 32.3 - 35.7 g/dL [facility] RDW CV 13.8 11.1 - 14.9 % [facility] RDW SD 47.4 35.7 - 48.1 fL [facility] NRBC abs 0.00 0.00 - 0.01 K/cumm [facility] Blood 01/15/2025 4:00 AM CDT 01/15/2025 4:44 AM CDT Bessie Charlton NP LAB BLOOD ORDERABLES Final Result [facility] [address] Department [place] [address] * (ABNORMAL) Basic metabolic panel (01/15/2025 4:00 AM CDT) Sodium 136 135 - 145 mmol/L Potassium, pl 4.8 3.3 - 4.9 mmol/L [facility] Chloride 96(L) 97 - 110 mmol/L [facility] CO2 24 22 - 32 mmol/L [facility] Anion gap 16(H) 2 - 15 mmol/L [facility] BUN 79(H) 6 - 25 mg/dL [facility] Creatinine 6.95(H) 0.60 - 1.10 mg/dL [facility] Glucose 157 70 - 199 mg/dL [facility] Comment: Interpretive Data Fasting glucose >/= 126 [...] interpretive data was last revised 2022. Calcium 9.0 8.5 - 10.3 mg/dL [facility] Blood 01/15/2025 4:00 AM CDT 01/15/2025 4:44 AM CDT Bessie Charlton LAB BLOOD ORDERABLES Final Result Performing Organization Address City/[facility]/ZIP Co de Phone Number JOHAN LEON [phone] [address] Department [place], [place] [id number] * POCT glucose (01/14/2025 8:07 PM CDT) Glucose, POC 167 70 - 199 mg/dL POC Performer [id number] [facility] Blood 01/14/2025 8:07 PM CDT 01/14/2025 8:07 PM CDT Ward Perez [facility] POCT ORDERABLES - DEV ICE Final Result Performing Organization Address [facility] Co de Phone Number JOHAN LEON [address] [address]M Department [place] [address] * POCT glucose (01/14/2025 6:19 PM CDT) Glucose, POC 143 70 - 199 mg/dL POC Performer [id number] [facility] Blood 01/14/2025 6:19 PM CDT 01/14/2025 6:19 PM CDT Ward Perez LAB POCT ORDERABLES - DEV ICE Final Result Performing Organization Address City/[facility] Co de Phone Number JOHAN LEON [address] [address] Department [place] [address] * (ABNORMAL) eGFR (01/14/2025 1:14 PM CDT) Pathologist [facility] eGFR 6(L) >=60 mL/min/1. 73 m2 Comment: Interpretive Data [...] interpretive data was last reviewed 2021. Blood 01/14/2025 1:14 PM CDT 01/14/2025 1:16 PM CDT Bessie Charlton NP LAB BLOOD ORDERABLES Final Result JOHAN [address] [address] Department [place] [address] * (ABNORMAL) Differential, auto (01/14/2025 1:14 PM CDT) Pathologist [facility] Neutrophil abs 4.46 1.50 - 6.50 K/cumm Imm gran abs 0.15(H) 0.00 - 0.10 K/cumm [facility] Lymphocyte abs 0.65(L) 0.80 - 3.30 K/cumm [facility] Monocyte abs 0.47 0.20 - 0.80 K/cumm [facility] Eosinophil abs 0.00 0.00 - 0.50 K/cumm [facility] Basophil abs 0.01 0.00 - 0.10 K/cumm [facility] Neutrophil pct 77.7 % [facility] Comment: Interpretive Data Percent cell count reference ranges are not reported, since discordance with absolute values may lead to misinterpretation of CBC data. Current Interpretive Data was last revised on 2017. Imm gran pct 2.6 % [facility] Comment: Interpretive Data Percent cell count reference ranges are not reported, since discordance with absolute values may lead to misinterpretation of CBC data. Current Interpretive Data was last revised on 2017. Lymphocyte pct 11.3 % [facility] Comment: Interpretive Data Percent cell count reference ranges are not reported, since discordance with absolute values may lead to misinterpretation of CBC data. Current Interpretive Data was last revised on 2017. Monocyte pct 8.2 % [facility] Comment: Interpretive Data Percent cell count reference ranges are not reported, since discordance with absolute values may lead to misinterpretation of CBC data. Current Interpretive Data was last revised on 2017. Eosinophil pct 0.0 % [facility] Comment: Interpretive Data Percent cell count reference ranges are not reported, since discordance with absolute values may lead to misinterpretation of CBC data. Current Interpretive Data was last revised on 2017. Basophil pct 0.2 % [facility] Comment: Interpretive Data Percent cell count reference ranges are not reported, since discordance with absolute values may lead to misinterpretation of CBC data. Current Interpretive Data was last revised on 2017. Blood 01/14/2025 1:14 PM CDT 01/14/2025 1:17 PM CDT Bessie Charlton NP LAB BLOOD ORDERABLES Final Result [facility] [address] [address] Department [place] [address] * (ABNORMAL) CBC with auto differential (01/14/2025 1:14 PM CDT) WBC 5.74 3.80 - 9.90 K/cumm Hgb 7.9(L) 11.9 - 15.5 g/dL [facility] Hct 25.6(L) 35.6 - 45.5 % [facility] Plt 191 150 - 400 K/cumm [facility] MPV 8.5(L) 9.1 - 12.[address] [facility] RBC 2.73(L) 3.90 - 5.20 M/cumm [facility] MCV 93.8 81.3 - 96.4 fL [facility] MCH 28.9 27.1 - 33.3 pg [facility] MCHC 30.9(L) 32.3 - 35.7 g/dL [facility] RDW CV 14.0 11.1 - 14.9 % [facility] RDW SD 48.2(H) 35.7 - 48.[address] [facility] NRBC abs 0.00 0.00 - 0.01 K/cumm [facility] Blood 01/14/2025 1:14 PM CDT 01/14/2025 1:17 PM CDT Bessie Charlton NP LAB BLOOD ORDERABLES Final Result [facility] [address] [address] Department of Laboratories [place] [phone] * (ABNORMAL) Comprehensive metabolic panel (01/14/2025 1:14 PM CDT) Sodium 140 135 - 145 mmol/L Potassium, pl 4.5 3.3 - 4.9 mmol/L [facility] Chloride 100 97 - 110 mmol/L [facility] CO2 26 22 - 32 mmol/L [facility] Anion gap 14 2 - 15 mmol/L [facility] BUN 77(H) 6 - 25 mg/dL [facility] Creatinine 6.58(H) 0.60 - 1.10 mg/dL [facility] Glucose 192 70 - 199 mg/dL [facility] Comment: Interpretive Data Fasting glucose >/= 126 [...] Calcium 9.1 8.5 - 10.3 mg/dL [facility] Bilirubin, total 0.2 0.1 - 1.2 mg/dL [facility] Protein, pl 6.4(L) 6.5 - 8.5 g/dL [facility] Albumin 3.6 3.5 - 5.0 g/dL [facility] Alk phos 92 40 - 130 Units/L [facility] ALT 7 7 - 45 Units/L [facility] AST 12 10 - 45 Units/L [facility] Blood 01/14/2025 1:14 PM CDT 01/14/2025 1:16 PM CDT Bessie Charlton NP LAB BLOOD ORDERABLES Final Result JOHAN [address] [address] Department [place] [address] * Occult blood, fecal non neoplasm screening (08/02/2017 7:41 AM INSULATOR TECHNICIAN) Pathologist [facility] Occult blood, fecal Negative Negative [facility] ([facility]AN) Collection date , feces [id number] [facility] ([facility]) Collection time 1, feces 739 [facility] ([facility]) Stool 08/02/2017 7:41 AM INSULATOR TECHNICIAN 08/02/2017 7:44 AM INSULATOR TECHNICIAN us Pam Rivas MD LAB BODY FLUIDS AND STOOLS ORDER SARIKA Final Result [facility] ([facility]) 1 [facility] [place] [address] * MAMMOGRAPHY (01/11/2002) Mammogram Normal Historical Provider HEALTH MAINTENANCE Final Result * COLONOSCOPY (10/14/2001) Colonoscopy Unknown Historical Provider HEALTH MAINTENANCE Final Result from Last 3 Months or Most Recently Relevant to Health Maintenance
--- OUTSIDE RECORDS SUMMARY | 2025-04-06 11:07 | XMS_ITS | Referral Summary ---
Author Organization [facility] [address] Address [address] [place] [address] Phone Care Team Providers Care [employer] Name Role Phone No, Physician Primary Care Provider [phone] Terence Garcia MD Unavailable Sophia Thomas MD Unavailable Encounters Date Type Department Care Team Description 03/13/2025 Telephone [facility] Surgery [address] [facility] [address]th [place] [address] [place] [address] Zachary Augustine MD PhD 02/15/2025 Telephone [facility] Surgery [address] [place] [address] [place] [address] Zachary Augustine MD PhD 01/20/2025 4:49 PM CDT - 01/20/2025 11:59 PM CDT Hospital Encounter [facility]BUL[facility]ILL[facility] [address] [place] [address] Ward Perez DO Discharge Disposition: Discharge to home or self care 01/14/2025 11:50 AM CDT - 01/20/2025 5:36 PM CDT Hospital Encounter [facility] [address] [place] [address] Ward Perez DO Ogunremi, Olumide Omolulu, MD Discharge Disposition: Discharge to group home facility 01/12/2025 Telephone [facility] ([facility]) - [facility] Urology [address] [facility] 11th [place] [address] [place] [address] Larissa Lopez MD from Last 3 Months Allergies Active Allergy [...] tablet (150 mg total) by mouth nightly 05/10/202 5 Active Active Problems Problem Noted Date [...] 08/04/2022 Assessment & Plan (08/04/2022 10:52 AM CRM SYSTEM ADMINISTRATOR): Had normal K on admission. K last 2 days has been 5.1, 5.3. whole blood K of 5.2. Creatinine stable. Suspect due to immobilization vs resolving YAYA. -treat with lokelma x 2 days -will need repeat labs at SNF in 3-7 days. CKD (chronic kidney disease) stage 3, GFR 30-59 ml/min 07/28/2022 Assessment & Plan (08/04/2022 10:50 AM CRM SYSTEM ADMINISTRATOR): Mild YAYA on top of CKD3 - improved, now creat stable at 1.29. (though might be artificially increased due to being on bactrim) - avoid nephrotoxins and renally dose meds Assessment & Plan (08/02/2022 2:25 PM CRM SYSTEM ADMINISTRATOR): Mild yaya on top of CKD 3 - will continue to monitor with daily BMP - avoid nephrotoxins and renally dose meds - creatinine stable but not back to baseline, Bactrim may be contributing to cr lab elevation - IVF today and reassess Assessment & Plan (08/01/2022 11:07 AM CRM SYSTEM ADMINISTRATOR): Mild yaya on top of CKD 3 - will continue to monitor with daily BMP - avoid nephrotoxins and renally dose meds - creatinine downtrending Assessment & Plan (07/31/2022 1:52 PM CRM SYSTEM ADMINISTRATOR): Mild yaya on top of CKD 3 - will continue to monitor with daily BMP - Hold am lasix, add small IVF bolus - avoid nephrotoxins and renally dose meds - creatinine downtrending Assessment & Plan (07/30/2022 1:34 PM CRM SYSTEM ADMINISTRATOR): Mild yaya on top of CKD 3 - will continue to monitor with daily BMP - slight bump today - Hold am lasix, add small IVF bolus - avoid nephrotoxins and renally dose meds Assessment & Plan (07/28/2022 2:32 PM CRM SYSTEM ADMINISTRATOR): Mild yaya on top of CKD 3 - will continue to monitor with daily BMP - Hold am lasix - send urinalysis - avoid nephrotoxins and renally dose meds Cellulitis of abdominal wall 07/27/2022 Assessment & Plan (08/04/2022 10:49 AM CRM SYSTEM ADMINISTRATOR): Pt presenting with abdominal wall erythema and [...] resolved Assessment & Plan (08/02/2022 2:23 PM CRM SYSTEM ADMINISTRATOR): Pt presenting with abdominal wall erythema and [...] 21, stopped VANC on 07/30 - + 1/ blood cultures for Gram + clusters (reported as prelim staph epi), repeat cultures negative and likely contaminant - changed to bactrim DS to complete full 10 day course of antibiotics (will finish on 08/05) - exam improving Assessment & Plan (08/01/2022 10:56 AM CRM SYSTEM ADMINISTRATOR): Pt presenting with abdominal wall erythema and [...] improving Assessment & Plan (07/31/2022 1:51 PM CRM SYSTEM ADMINISTRATOR): Pt presenting with abdominal wall erythema and [...] positive Assessment & Plan (07/30/2022 1:32 PM CRM SYSTEM ADMINISTRATOR): Pt presenting with abdominal wall erythema and [...] contaminant Assessment & Plan (07/29/2022 2:29 PM CRM SYSTEM ADMINISTRATOR): Pt presenting with abdominal wall erythema and [...] appropriate Assessment & Plan (07/28/2022 2:24 PM CRM SYSTEM ADMINISTRATOR): Pt presenting with abdominal wall erythema and [...] 01/21/2022 Assessment & Plan (08/03/2022 3:28 PM CRM SYSTEM ADMINISTRATOR): CT in January 2022 showed 4 cm [...] radiology they have such a scanner at [facility] Assessment & Plan (08/02/2022 2:24 PM CRM SYSTEM ADMINISTRATOR): CT in January 2022 showed 4 cm [...] radiology they have such a scanner at [facility] Assessment & Plan (08/01/2022 11:05 AM CRM SYSTEM ADMINISTRATOR): CT in January 2022 showed 4 cm [...] not Assessment & Plan (07/31/2022 1:51 PM CRM SYSTEM ADMINISTRATOR): CT in January 2022 showed 4 cm indeterminant renal mass, has progressed since previous imaging and was recommended to have MRI outpatient but patient was not scanned. - ordered MRI and attempting to get as inpatient Assessment & Plan (07/30/2022 1:33 PM CRM SYSTEM ADMINISTRATOR): CT in January 2022 showed 4 cm indeterminant renal mass, has progressed since previous imaging and was recommended to have MRI outpatient but patient was not scanned. - ordered MRI Assessment & Plan (07/28/2022 2:30 PM CRM SYSTEM ADMINISTRATOR): CT in January 2022 showed 4 cm [...] 021 Assessment & Plan (08/04/2022 10:49 AM CRM SYSTEM ADMINISTRATOR): Pt with Hx of COPD (former smoker), SHELDON and OHS on 3L O2 chronically and Bipap At baseline - Cont home ICS/LABA (formulary substitute for home symbicort) and duonebs prn, bipap and supplemental O2. Assessment & Plan (08/02/2022 2:23 PM CRM SYSTEM ADMINISTRATOR): Pt with Hx of COPD (former smoker), SHELDON and OHS on 3L O2 chronically and Bipap - Cont home ICS/LABA (formulary substitute for home symbicort) and duonebs prn, bipap and supplemental O2. Assessment & Plan (08/01/2022 10:56 AM CRM SYSTEM ADMINISTRATOR): Pt with Hx of COPD (former smoker), SHEDLON and OHS on 3L O2 chronically and Bipap - Cont home ICS/LABA (formulary substitute for home symbicort) and duonebs prn, bipap and supplemental O2. Assessment & Plan (07/31/2022 1:51 PM CRM SYSTEM ADMINISTRATOR): Pt with Hx of COPD (former smoker), SHELDON and OHS on 3L O2 chronically and Bipap - Cont home ICS/LABA (formulary substitute for home symbicort) and duonebs prn, bipap and supplemental O2. Assessment & Plan (07/30/2022 1:32 PM CRM SYSTEM ADMINISTRATOR): Pt with Hx of COPD (former smoker), SHELDON and OHS on 3L O2 chronically and Bipap - Cont home ICS/LABA (formulary substitute for home symbicort) and duonebs prn, bipap and supplemental O2. Assessment & Plan (07/29/2022 2:42 PM CRM SYSTEM ADMINISTRATOR): Pt with Hx of COPD (former smoker), SHELDON and OHS on 3L O2 chronically and Bipap - Cont home ICS/LABA (formulary substitute for home symbicort) and duonebs prn, bipap and supplemental O2. Assessment & Plan (07/28/2022 2:25 PM CRM SYSTEM ADMINISTRATOR): Pt with Hx of COPD (former smoker), [...] 04/02/2021 Assessment & Plan (08/04/2022 10:50 AM CRM SYSTEM ADMINISTRATOR): Patient with hx of left knee surgery 2/2 fracture and Right knee osteoarthritis. Also with hx of gout of Right Toe. Right knee exam is benign. - uric acid elevated - knee x-ray with OA - continue tylenol and oxycodone, added lidocaine patch Assessment & Plan (08/02/2022 2:22 PM CRM SYSTEM ADMINISTRATOR): Patient with hx of left knee surgery [...] (12/17/2021 1:05 PM CDT): - CPAP nightly. [facility] notes report CPAP at 6mm H2O with 2L O2 bleed in Assessment & Plan (12/16/2021 3:38 PM CDT): - CPAP nightly. [facility] notes report CPAP at 6mm H2O with 2L O2 bleed in Assessment & Plan (12/15/2021 10:05 AM CDT): - CPAP nightly. [facility] notes report CPAP at 6mm H2O with 2L O2 bleed in Assessment & Plan (12/14/2021 11:36 AM CDT): - CPAP nightly. [facility] notes report CPAP at 6mm H2O with 2L O2 bleed in Assessment & Plan (12/13/2021 10:36 AM CDT): - CPAP nightly. [facility] notes report CPAP at 6mm H2O with 2L O2 bleed in Assessment & Plan (12/11/2021 10:45 PM CDT): - CPAP nightly. [facility] notes report CPAP at 6mm H2O with [...] Assessment & Plan (12/12/2021 9:36 AM CDT): Apoorva dilt Subclinical hypothyroidism 12/10/2018 Assessment & Plan (08/03/2022 3:28 PM CRM SYSTEM ADMINISTRATOR): Continue home synthyroid Assessment & Plan (08/02/2022 2:24 PM CRM SYSTEM ADMINISTRATOR): Continue home synthyroid Assessment & Plan (08/01/2022 10:57 AM CRM SYSTEM ADMINISTRATOR): Continue home synthyroid Assessment & Plan (07/31/2022 1:51 PM CRM SYSTEM ADMINISTRATOR): Continue home synthyroid Assessment & Plan (07/30/2022 1:33 PM CRM SYSTEM ADMINISTRATOR): Continue home synthyroid Assessment & Plan (07/27/2022 8:24 PM CRM SYSTEM ADMINISTRATOR): Continue home synthyroid Assessment & Plan (01/23/2022 [...] 03/19/2018 Assessment & Plan (08/03/2022 3:26 PM CRM SYSTEM ADMINISTRATOR): Continue home xarelto Assessment & Plan (08/02/2022 2:24 PM CRM SYSTEM ADMINISTRATOR): Continue home xarelto Assessment & Plan (08/01/2022 10:57 AM CRM SYSTEM ADMINISTRATOR): Continue home xarelto Assessment & Plan (07/31/2022 1:51 PM CRM SYSTEM ADMINISTRATOR): Continue home xarelto Assessment & Plan (07/30/2022 1:33 PM CRM SYSTEM ADMINISTRATOR): Continue home xarelto Assessment & Plan (07/27/2022 8:25 PM CRM SYSTEM ADMINISTRATOR): Continue home xarelto Assessment & Plan (01/23/2022 [...] embolus less than 3 months ago no Lawrence details she has had numerous hospitalizations in [...] (10/27/2017): Added automatically from request for surgery [id number] Restless leg 10/18/2017 Assessment & Plan (08/03/2022 3:28 PM CRM SYSTEM ADMINISTRATOR): Continue pramipexole Assessment & Plan (08/02/2022 2:23 PM CRM SYSTEM ADMINISTRATOR): Continue pramipexole Assessment & Plan (08/01/2022 10:57 AM CRM SYSTEM ADMINISTRATOR): Continue pramipexole Assessment & Plan (07/31/2022 1:51 PM CRM SYSTEM ADMINISTRATOR): Continue pramipexole Assessment & Plan (07/30/2022 1:33 PM CRM SYSTEM ADMINISTRATOR): Continue pramipexole Assessment & Plan (07/27/2022 8:23 PM CRM SYSTEM ADMINISTRATOR): Continue pramipexole Assessment & Plan (12/17/2021 1:04 [...] 10/18/2017 Assessment & Plan (10/18/2017 6:00 PM CRM SYSTEM ADMINISTRATOR): Informed patient today that she would need to comply with this office recommendations on management of her multiple chronic conditions, failure to do so, would mean that she would need to find another primary care provider. Chronic pain syndrome 10/18/2017 Assessment & Plan (12/17/2021 1:04 PM CDT): Chronic pain of bilateral legs s/p fracture, shoulder and back. On Pomaria 7.5-325 q6h prn at home - tylenol 1g q6h prn, oxycodone 10mg q6h prn - home gabapentin 100mg TID - scheduled and prn bowel regimen - started lidoderm patches for most painful area Assessment & Plan (12/16/2021 3:37 PM CDT): chronic pain of bilateral legs s/p fracture, shoulder and back. On Pomaria 7.5-325 q6h prn at home - tylenol 1g q6h prn, oxycodone 10mg q6h prn - home gabapentin 100mg TID - scheduled and prn bowel regimen - started lidoderm patches for most painful area Assessment & Plan (12/15/2021 10:05 AM CDT): chronic pain of bilateral legs s/p fracture, shoulder and back. On Pomaria 7.5-325 q6h prn at home - tylenol 1g q6h prn, oxycodone 10mg q6h prn - home gabapentin 100mg TID - scheduled and prn bowel regimen - started lidoderm patches for most painful area Assessment & Plan (12/14/2021 11:36 AM CDT): chronic pain of bilateral legs s/p fracture, shoulder and back. On Pomaria 7.5-325 q6h prn at home - tylenol 1g q6h prn, oxycodone 10mg q6h prn - home gabapentin 100mg TID - scheduled and prn bowel regimen - started lidoderm patches for most painful area Assessment & Plan (12/13/2021 10:36 AM CDT): chronic pain of bilateral legs s/p fracture, shoulder and back. On Pomaria 7.5-325 q6h prn at home - tylenol 1g q6h prn, oxycodone 10mg q6h prn - home gabapentin 100mg TID - scheduled and prn bowel regimen - started lidoderm patches for most painful area Assessment & Plan (12/12/2021 9:35 AM CDT): chronic pain of bilateral legs s/p fracture, shoulder and back. On Pomaria 7.5-325 q6h prn at home - tylenol [...] events Assessment & Plan (10/18/2017 5:57 PM CRM SYSTEM ADMINISTRATOR): Referred to pain mgmt for further eval/tx. Wound dehiscence 10/18/2017 Assessment & Plan (10/18/2017 5:58 PM CRM SYSTEM ADMINISTRATOR): Referral given 2 months ago to be seen by wound care. Patient did not follow up with them. Seizure disorder 07/20/2017 Assessment & Plan (08/03/2022 3:28 PM CRM SYSTEM ADMINISTRATOR): Controlled. Continue home keppra & oxcarbazapine. Assessment & Plan (08/02/2022 2:23 PM CRM SYSTEM ADMINISTRATOR): Controlled. Continue home keppra & oxcarbazapine. Assessment & Plan (08/01/2022 10:57 AM CRM SYSTEM ADMINISTRATOR): Controlled. Continue home keppra & oxcarbazapine. Assessment & Plan (07/31/2022 1:51 PM CRM SYSTEM ADMINISTRATOR): Controlled. Continue home keppra & oxcarbazapine. Assessment & Plan (07/30/2022 1:33 PM CRM SYSTEM ADMINISTRATOR): Controlled. Continue home keppra & oxcarbazapine. Assessment & Plan (07/27/2022 8:25 PM CRM SYSTEM ADMINISTRATOR): Controlled. Continue home keppra & oxcarbazapine. Assessment [...] on gabapentin patient was previously followed at [facility] in [facility]. Plans continue gabapentin this time Assessment & Plan (10/18/2017 5:56 PM CRM SYSTEM ADMINISTRATOR): Self-reported, patient was referred to neurology 2 months ago immediately after she reported a seizure. Patient did not mellisa appt with neurology, patient encouraged to comply. Personality disorder 07/20/2017 Assessment & Plan (03/19/2018 2:33 PM CDT): Psychiatric referral made Assessment & Plan (10/18/2017 5:53 PM CRM SYSTEM ADMINISTRATOR): Encouraged patient to f/u through with Psychiatry referral. Bipolar 1 disorder, depressed, mild 07/20/2017 Assessment & Plan (08/03/2022 3:17 PM CRM SYSTEM ADMINISTRATOR): Symptoms controlled, cont home regimen of sertraline, Seroquel Assessment & Plan (08/02/2022 2:23 PM CRM SYSTEM ADMINISTRATOR): Symptoms controlled, cont home regimen of sertraline, Seroquel Assessment & Plan (08/01/2022 10:56 AM CRM SYSTEM ADMINISTRATOR): Symptoms controlled, cont home regimen of sertraline, Seroquel Assessment & Plan (07/31/2022 1:51 PM CRM SYSTEM ADMINISTRATOR): Symptoms controlled, cont home regimen of sertraline, Seroquel Assessment & Plan (07/30/2022 1:33 PM CRM SYSTEM ADMINISTRATOR): Symptoms controlled, cont home regimen of sertraline, Seroquel Assessment & Plan (07/29/2022 2:42 PM CRM SYSTEM ADMINISTRATOR): Symptoms controlled, cont home regimen of sertraline, Seroquel Assessment & Plan (07/27/2022 8:23 PM CRM SYSTEM ADMINISTRATOR): Symptoms controlled, cont home regimen of sertraline, [...] hallucinations. Assessment & Plan (10/18/2017 5:53 PM CRM SYSTEM ADMINISTRATOR): Rx refills given. Encouraged patient to f/u [...] therapy Assessment & Plan (10/18/2017 5:51 PM CRM SYSTEM ADMINISTRATOR): Hypertension is improving with treatment. Continue current treatment regimen. Dietary sodium restriction. Weight loss. Continue current medications. Blood pressure will be reassessed at the next regular appointment. Insomnia 07/20/2017 Assessment & Plan (10/18/2017 5:52 PM CRM SYSTEM ADMINISTRATOR): Will not fill both trazodone AND ambien, [...] 07/20/2017 Assessment & Plan (10/18/2017 5:56 PM CRM SYSTEM ADMINISTRATOR): Encouraged patient to follow through with nephrology referral she was given 2 months ago. Referral re-printed. Class 3 severe obesity with body mass index (BMI) greater than or equal to 70 in adult 07/20/2017 Assessment & Plan (08/03/2022 3:26 PM CRM SYSTEM ADMINISTRATOR): Pt with severe obesity, complicated by SHELDON/OHS. Leg fractures in 2020 managed nonoperatively, pt has been bed bound and living in SNF since that time. Assessment & Plan (08/02/2022 2:23 PM CRM SYSTEM ADMINISTRATOR): Pt with severe obesity, complicated by SHELDON/OHS. Leg fractures in 2020 managed nonoperatively, pt has been bed bound and living in SNF since that time. Assessment & Plan (08/01/2022 10:56 AM CRM SYSTEM ADMINISTRATOR): Pt with severe obesity, complicated by SHELDON/OHS. Leg fractures in 2020 managed nonoperatively, pt has been bed bound and living in SNF since that time. Assessment & Plan (07/31/2022 1:51 PM CRM SYSTEM ADMINISTRATOR): Pt with severe obesity, complicated by SHELDON/OHS. Leg fractures in 2020 managed nonoperatively, pt has been bed bound and living in SNF since that time. Assessment & Plan (07/30/2022 1:33 PM CRM SYSTEM ADMINISTRATOR): Pt with severe obesity, complicated by SHELDON/OHS. Leg fractures in 2020 managed nonoperatively, pt has been bed bound and living in SNF since that time. Assessment & Plan (07/27/2022 8:25 PM CRM SYSTEM ADMINISTRATOR): Pt with severe obesity, complicated by SHELDON/OHS. [...] she informs me that Dr. Panda in [facility] is willing to move this pannus patient referred to this particular physician to address this problem soon as possible. 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 Assessment & Plan (10/18/2017 5:56 PM CRM SYSTEM ADMINISTRATOR): Obesity is unchanged. Discussed the patient's BMI. [...] supratherapeutic level overnight. Plan to return to alf tomorrow. Assessment & Plan (12/13/2021 10:35 AM [...] ensure stability prior to return to her alf. Immunizations Immunization Administration Dates Next Due Influenza, [...] In the past 12 months has e [employer], gas, oil, or water company threatened to [...] week 01/15/2025 How often do you attend hindu or congregational serv ices? Never 01/15/2025 Do you belong to any clubs o r organizations such as hindu groups, unions, fraternal or athletic groups, or [...] slept in a halfway (including now)? No 07/30/2022 Housing Stability Vital Sign Answer Pepe e Recorded In the last 12 months, was t here a time when you were not able to pay the mortgage or rent on time? No 01/15/2025 In the past 12 months, how m any times have you moved where you were living? 0 01/15/2025 At any time in the past 12 m [facility], were you homeless or living in a halfway (including now)? No 01/15/2025 Personal Safety Answer [...] Mass Index 59.15 01/14/2025 4:59 PM CDT Plan of Treatment Not on file Medical Devices Implanted Type Area Oil Well Driller Device Identifier Shelf Expiration Date Model / Serial / Lot [employer] Duramax Vascpak Safesheath D-Pro 15.5fr 28cm Kit Catheter [id number] - [id number] Implanted:Qty: 1 on 01/15/2025 by Hill Martínez MD at [facility] 12/11/2026 [id number] / / [id number] Procedures Procedure Name Priority Date/Time Associated Diagnosis [...] BLOOD, FECAL (FIT) Routine 08/02/2017 7:41 AM CRM SYSTEM ADMINISTRATOR HM MAMMOGRAPHY Routine 01/11/2002 HM COLONOSCOPY Routine 10/14/2001 from Last 3 Months or Most Recently Relevant to Health Maintenance Results * POCT glucose (01/20/2025 11:46 AM CDT) Glucose, POC 137 70 - 199 mg/dL POC Performer [id number] JOHAN LEON Blood 01/20/2025 11:4 6 AM CDT 01/20/2025 11:46 AM CDT us Wadr Perez DO LAB POCT ORDERABLES - DEV ICE Final Result JOHAN LEON [address] Department [place] [address] * (ABNORMAL) eGFR (01/20/2025 6:17 [...] AM CDT 01/20/2025 7:16 AM CDT Bessie Charltno CERTIFIED PATHOLOGY ASSISTANT LAB BLOOD ORDERABLES Final Result [facility] [address] [place] [address] * (ABNORMAL) Differential, auto (01/20/2025 6:17 AM CDT) Pathologist [facility] Neutrophil abs 3.69 1.50 - 6.50 K/cumm Imm gran abs 0.34(H) 0.00 - 0.10 K/cumm [facility] Lymphocyte abs 0.84 0.80 - 3.30 K/cumm [facility] Monocyte abs 0.47 0.20 - 0.80 K/cumm [facility] Eosinophil abs 0.00 0.00 - 0.50 K/cumm [facility] Basophil abs 0.01 0.00 - 0.10 K/cumm [facility] Neutrophil pct 68.9 % [facility] Comment: Interpretive Data Percent cell count reference ranges are not reported, since discordance with absolute values may lead to misinterpretation of CBC data. Current Interpretive Data was last revised on 2017. Imm gran pct 6.4 % [facility] Comment: Interpretive Data Percent cell count reference ranges are not reported, since discordance with absolute values may lead to misinterpretation of CBC data. Current Interpretive Data was last revised on 2017. Lymphocyte pct 15.7 % [facility] Comment: Interpretive Data Percent cell count reference ranges are not reported, since discordance with absolute values may lead to misinterpretation of CBC data. Current Interpretive Data was last revised on 2017. Monocyte pct 8.8 % [facility] Comment: Interpretive Data Percent cell count reference ranges are not reported, since discordance with absolute values may lead to misinterpretation of CBC data. Current Interpretive Data was last revised on 2017. Eosinophil pct 0.0 % [facility] Comment: Interpretive Data Percent cell count reference ranges are not reported, since discordance with absolute values may lead to misinterpretation of CBC data. Current Interpretive Data was last revised on 2017. Basophil pct 0.2 % [facility] Comment: Interpretive Data Percent cell count reference ranges are not reported, since discordance with absolute values may lead to misinterpretation of CBC data. Current Interpretive Data was last revised on 2017. Blood 01/20/2025 6:17 AM CDT 01/20/2025 7:15 AM CDT Bessie Charlton NP LAB BLOOD ORDERABLES Final Result [facility] [address] [place] [address] * (ABNORMAL) CBC with auto differential (01/20/2025 6:17 AM CDT) WBC 5.35 3.80 - 9.90 K/cumm Hgb 8.4(L) 11.9 - 15.5 g/dL [facility] Hct 27.3(L) 35.6 - 45.5 % [facility] Plt 172 150 - 400 K/cumm [facility] MPV 8.8(L) 9.1 - 12.3 fL [facility] RBC 2.86(L) 3.90 - 5.20 M/cumm [facility] MCV 95.5 81.3 - 96.4 fL CERNER [...] NP LAB BLOOD ORDERABLES Final Result [facility] [address] [address] [place] [address] * (ABNORMAL) Basic metabolic panel (01/20/2025 6:17 AM CDT) Sodium 138 135 - 145 mmol/L Potassium, pl 3.8 3.3 - 4.9 mmol/L [facility] Chloride 98 97 - 110 mmol/L [facility] CO2 28 22 - 32 mmol/L [facility] Anion gap 12 2 - 15 mmol/L [facility] BUN 20 6 - 25 mg/dL [facility] Creatinine 3.01(H) 0.60 - 1.10 mg/dL [facility] Glucose 100 70 - 199 mg/dL [facility] Comment: [...] 2022. Calcium 9.7 8.5 - 10.3 mg/dL [facility] Blood 01/20/2025 6:17 AM CDT 01/20/2025 7:16 AM CDT Bessie Charlton NP LAB BLOOD ORDERABLES Final Result Performing Organization Address [facility] Co de Phone Number JOHAN LEON [id number] [address] [facility] [place] [address] * POCT glucose (01/20/2025 6:13 AM CDT) Glucose, POC 102 70 - 199 mg/dL POC Performer [id number] [facility] Blood 01/20/2025 6:13 AM CDT 01/20/2025 6:13 AM CDT Soy Peterson MD LAB POCT ORDERABLES - DEVICE Final Result Performing Organization Address [facility] Co de Phone Number JOHAN LEON [id number] [facility] [place] [address] * POCT glucose (01/19/2025 8:12 PM CDT) Glucose, POC 120 70 - 199 mg/dL POC Performer [id number] [facility] Blood 01/19/2025 8:12 PM CDT 01/19/2025 8:12 PM CDT Soy Peterson MD LAB POCT ORDERABLES - DEVICE Final Result Performing Organization Address [facility] Co de Phone Number JOHAN LEON [address] [address] [facility] [employer] [place] [address] * POCT glucose (01/19/2025 5:20 PM CDT) Glucose, POC 127 70 - 199 mg/dL POC Performer [id number] [facility] Blood 01/19/2025 5:20 PM CDT 01/19/2025 5:20 PM CDT us Soy Peterson MD LAB POCT ORDERABLES - DEVICE Final Result JOHAN LEON [address] [address] [facility] [employer] [place], [place] [id number] * POCT glucose (01/19/2025 2:21 PM CDT) Glucose, POC 110 70 - 199 mg/dL POC Performer [phone] [facility] Blood 01/19/2025 2:21 PM CDT 01/19/2025 2:21 PM CDT Soy Peterson MD LAB POCT ORDERABLES - DEVICE Final Result Performing Organization Address City/[facility] Co de Phone Number JOHAN LEON [address] Department [place] [address] * (ABNORMAL) eGFR (01/19/2025 7:31 AM CDT) [...] AM CDT 01/19/2025 7:47 AM CDT Bessie Burnetteyolanda SMITH LAB BLOOD ORDERABLES Final Result [facility] [address] [place] [address] * (ABNORMAL) Differential, auto (01/19/2025 7:31 AM CDT) Neutrophil abs 3.90 1.50 - 6.50 K/cumm Imm gran abs 0.33(H) 0.00 - 0.10 K/cumm [facility] Lymphocyte abs 0.96 0.80 - 3.30 K/cumm [facility] Monocyte abs 0.52 0.20 - 0.80 K/cumm [facility] Eosinophil abs 0.00 0.00 - 0.50 K/cumm [facility] Basophil abs 0.02 0.00 - 0.10 K/cumm [facility] Neutrophil pct 68.0 % [facility] Comment: Interpretive Data Percent cell count reference ranges are not reported, since discordance with absolute values may lead to misinterpretation of CBC data. Current Interpretive Data was last revised on 2017. Imm gran pct 5.8 % [facility] Comment: Interpretive Data Percent cell count reference ranges are not reported, since discordance with absolute values may lead to misinterpretation of CBC data. Current Interpretive Data was last revised on 2017. Lymphocyte pct 16.8 % [facility] Comment: Interpretive Data Percent cell count reference ranges are not reported, since discordance with absolute values may lead to misinterpretation of CBC data. Current Interpretive Data was last revised on 2017. Monocyte pct 9.1 % [facility] Comment: Interpretive Data Percent cell count reference ranges are not reported, since discordance with absolute values may lead to misinterpretation of CBC data. Current Interpretive Data was last revised on 2017. Eosinophil pct 0.0 % [facility] Comment: Interpretive Data Percent cell count reference ranges are not reported, since discordance with absolute values may lead to misinterpretation of CBC data. Current Interpretive Data was last revised on 2017. Basophil pct 0.3 % [facility] Comment: Interpretive Data Percent cell count reference ranges are not reported, since discordance with absolute values may lead to misinterpretation of CBC data. Current Interpretive Data was last revised on 2017. Blood 01/19/2025 7:31 AM CDT 01/19/2025 7:48 AM CDT Bessie Marnieyayabatsheva Charlton NP LAB BLOOD ORDERABLES Final Result JOHAN M[address] [place] [address] * (ABNORMAL) CBC with auto differential (01/19/2025 7:31 AM CDT) Pathologist [facility] [place] WBC 5.73 3.80 - 9.90 K/cumm Hgb 8.1(L) 11.9 - 15.5 g/dL [facility] Hct 26.2(L) 35.6 - 45.5 % [facility] Plt 158 150 - 400 K/cumm [facility] MPV 8.5(L) 9.1 - 12.3 fL [facility] RBC 2.77(L) 3.90 - 5.20 M/cumm [facility] MCV 94.6 81.3 - 96.4 fL [facility] MCH 29.2 27.1 - 33.3 pg [facility] MCHC 30.9(L) 32.3 - 35.7 g/dL [facility] RDW CV 13.8 11.1 - 14.9 % [facility] RDW SD 46.5 35.7 - 48.1 fL [facility] NRBC abs 0.05(H) 0.00 - 0.01 K/cumm [facility] Blood 01/19/2025 7:31 AM CDT 01/19/2025 7:48 AM CDT Bessie Charlton NP LAB BLOOD ORDERABLES Final Result JOHAN [address] Department of [employer] [place], [place] [id number] * (ABNORMAL) Basic metabolic panel (01/19/2025 7:31 AM CDT) Sodium 137 135 - 145 mmol/L Potassium, pl 3.7 3.3 - 4.9 mmol/L [facility] Chloride 99 97 - 110 mmol/L [facility] CO2 26 22 - 32 mmol/L [facility] Anion gap 12 2 - 15 mmol/L [facility] BUN 33(H) 6 - 25 mg/dL [facility] Creatinine 4.05(H) 0.60 - 1.10 mg/dL [facility] Glucose 102 70 - 199 mg/dL [facility] Comment: Interpretive Data Fasting glucose >/= [...] 2022. Calcium 9.6 8.5 - 10.3 mg/dL [facility] Blood 01/19/2025 7:31 AM CDT 01/19/2025 7:47 AM CDT Bessie Charlton NP LAB BLOOD ORDERABLES Final Result Performing Organization Address City/[facility]/ZIP Co de Phone Number NATANAELWON LEON [address] [address] [place] [address] * POCT glucose (01/19/2025 6:53 AM CDT) Glucose, POC 115 70 - 199 mg/dL POC Performer [id number] [facility] Blood 01/19/2025 6:53 AM CDT 01/19/2025 6:53 AM CDT Soy Peterson MD LAB POCT ORDERABLES - DEVICE Final Result JOHAN LEON [address] [facility] [employer] [address] * POCT glucose (01/18/2025 10:35 PM CDT) Glucose, POC 122 70 - 199 mg/dL POC Performer [id number] [facility] Blood 01/18/2025 10:3 5 PM CDT 01/18/2025 10:35 PM CDT Soy Peterson MD LAB POCT ORDERABLES - DEVICE Final Result Performing Organization Address City/[facility]/ZIP Co de Phone Number JOHAN [address] [place] [address] * POCT glucose (01/18/2025 4:52 PM CDT) Glucose, POC 139 70 - 199 mg/dL POC Performer [id number] [facility] Blood 01/18/2025 4:52 PM CDT 01/18/2025 4:52 PM CDT Soy Peterson MD LAB POCT ORDERABLES - DEVICE Final Result Performing Organization Address [facility] Co de Phone Number NATANAELWON [address] [place] [address] * POCT glucose (01/18/2025 10:50 AM CDT) Glucose, POC 159 70 - 199 mg/dL POC Performer [id number] [facility] Blood 01/18/2025 10:5 0 AM CDT 01/18/2025 10:50 AM CDT Soy Peterson MD LAB POCT ORDERABLES - DEVICE Final Result Performing Organization Address City/[facility] Co de Phone Number [place]ON [address] [place] [address] * POCT glucose (01/18/2025 7:35 AM CDT) Glucose, POC 105 70 - 199 mg/dL POC Performer [id number] JOHAN Blood 01/18/2025 7:3 5 AM CDT 01/18/2025 7:35 AM CDT Soy Peterson MD LAB POCT ORDERABLES - DEVICE Final Result Performing Organization Address City/[facility]/ZIP Co de Phone Number JOHAN LEON [address] [address] [place] [address] * (ABNORMAL) eGFR (01/18/2025 4:04 AM CDT) Pathologist [facility] [place] eGFR 15(L) >=60 mL/min/1. 73 m2 Comment: [...] 4:04 AM CDT 01/18/2025 5:27 AM CDT us Bessie Charlton NP LAB BLOOD ORDERABLES Final Result Performing Organization Address City/[facility]/ZIP Co de Phone Number JOHAN [address] [address] [place] [address] * (ABNORMAL) Differential, auto (01/18/2025 4:04 AM CDT) Neutrophil abs 4.06 1.50 - 6.50 K/cumm Imm gran abs 0.25(H) 0.00 - 0.10 K/cumm [facility] Lymphocyte abs 0.87 0.80 - 3.30 K/cumm [facility] Monocyte abs 0.49 0.20 - 0.80 K/cumm [facility] 0.00 0.00 - 0.50 K/cumm [facility] Basophil abs 0.02 0.00 - 0.10 K/cumm [facility] Neutrophil pct 71.3 % [facility] Comment: Interpretive Data Percent cell count reference ranges are not reported, since discordance with absolute values may lead to misinterpretation of CBC data. Current Interpretive Data was last revised on 2017. Imm gran pct 4.4 % [facility] Comment: Interpretive Data Percent cell count reference ranges are not reported, since discordance with absolute values may lead to misinterpretation of CBC data. Current Interpretive Data was last revised on 2017. Lymphocyte pct 15.3 % [facility] Comment: Interpretive Data Percent cell count reference ranges are not reported, since discordance with absolute values may lead to misinterpretation of CBC data. Current Interpretive Data was last revised on 2017. Monocyte pct 8.6 % [facility] Comment: Interpretive Data Percent cell count reference ranges are not reported, since discordance with absolute values may lead to misinterpretation of CBC data. Current Interpretive Data was last revised on 2017. Eosinophil pct 0.0 % [facility] Comment: Interpretive Data Percent cell count reference ranges are not reported, since discordance with absolute values may lead to misinterpretation of CBC data. Current Interpretive Data was last revised on 2017. Basophil pct 0.4 % [facility] Comment: Interpretive Data Percent cell count reference ranges are not reported, since discordance with absolute values may lead to misinterpretation of CBC data. Current Interpretive Data was last revised on 2017. Blood 01/18/2025 4:04 AM CDT 01/18/2025 5:22 AM CDT Bessie Charlton CERTIFIED PATHOLOGY ASSISTANT LAB BLOOD ORDERABLES Final Result JOHAN [address] [place] [address] * (ABNORMAL) CBC with auto differential (01/18/2025 4:04 AM CDT) WBC 5.69 3.80 - 9.90 K/cumm Hgb 7.9(L) 11.9 - 15.5 g/dL [facility] Hct 25.6(L) 35.6 - 45.5 % [facility] Plt 198 150 - 400 K/cumm [facility] MPV 9.1 9.1 - 12.3 fL [facility] RBC 2.69(L) 3.90 - 5.20 M/cumm [facility] MCV 95.2 81.3 - 96.4 fL [facility] MCH 29.4 27.1 - 33.3 pg [facility] MCHC 30.9(L) 32.3 - 35.7 g/dL [facility] RDW CV 13.9 11.1 - 14.9 % [facility] RDW SD 47.4 35.7 - 48.1 fL [facility] NRBC abs 0.05(H) 0.00 - 0.01 K/cumm [facility] Blood 01/18/2025 4:04 AM CDT 01/18/2025 5:22 AM CDT Bessie Charlton CERTIFIED PATHOLOGY ASSISTANT LAB BLOOD ORDERABLES Final Result JOHAN LEON [address] Department [place] [employer] [place] [address] * (ABNORMAL) Basic metabolic panel (01/18/2025 4:04 AM CDT) Sodium 139 135 - 145 mmol/L Potassium, pl 3.8 3.3 - 4.9 mmol/L [facility] Chloride 99 97 - 110 mmol/L [facility] CO2 27 22 - 32 mmol/L [facility] Anion gap 13 2 - 15 mmol/L [facility] BUN 29(H) 6 - 25 mg/dL [facility] Creatinine 3.23(H) 0.60 - 1.10 mg/dL [facility] Glucose 89 70 - 199 mg/dL [facility] Comment: Interpretive Data Fasting glucose >/= [...] 2022. Calcium 9.3 8.5 - 10.3 mg/dL [facility] Blood 01/18/2025 4:04 AM CDT 01/18/2025 5:27 AM CDT Bessie Charlton NP LAB BLOOD ORDERABLES Final Result Performing Organization Address City/[facility]/ZIP Co de Phone Number [facility] [address] [address] [place] [address] * POCT glucose (01/17/2025 8:08 PM CDT) Glucose, POC 148 70 - 199 mg/dL POC Performer [id number] [facility] Blood 01/17/2025 8:08 PM CDT 01/17/2025 8:08 PM CDT Soy Peterson MD LAB POCT ORDERABLES - DEVICE Final Result [facility] [address] [address] Department [place] [place] [address] * POCT glucose (01/17/2025 5:17 PM CDT) Glucose, POC 119 70 - 199 mg/dL POC Performer [id number] [facility] Blood 01/17/2025 5:17 PM CDT 01/17/2025 5:17 PM CDT Soy Peterson MD LAB POCT ORDERABLES - DEVICE Final Result Performing Organization Address [facility] de Phone Number JOHAN LEON [address] [address] [facility] [employer] [place] [address] * POCT glucose (01/17/2025 2:20 PM CDT) Glucose, POC 131 70 - 199 mg/dL POC Performer [id number] [facility] Blood 01/17/2025 2:20 PM CDT 01/17/2025 2:20 PM CDT Soy Peterson MD LAB POCT ORDERABLES - DEVICE Final Result Performing Organization Address [facility] de Phone Number JOHAN LEON [address] [address] [facility] [employer] [place] [address] * POCT glucose (01/17/2025 7:31 AM CDT) Glucose, POC 123 70 - 199 mg/dL POC Performer [id number] [facility] Blood 01/17/2025 7:31 AM CDT 01/17/2025 7:31 AM CDT Soy Peterson MD LAB POCT ORDERABLES - DEVICE Final Result Performing Organization Address [facility] de Phone Number JOHAN LEON [address] [address] [facility] [employer] [place] [address] * (ABNORMAL) eGFR (01/17/2025 5:37 AM CDT) eGFR 8(L) >=60 mL/min/1. 73 m2 Comment: [...] Charlton NP LAB BLOOD ORDERABLES Final Result [facility] [address] [address] [place] [address] * (ABNORMAL) Differential, auto (01/17/2025 5:37 AM CDT) Neutrophil abs 4.78 1.50 - 6.50 K/cumm Imm gran abs 0.26(H) 0.00 - 0.10 K/cumm [facility] Lymphocyte abs 0.76(L) 0.80 - 3.30 K/cumm [facility] Monocyte abs 0.48 0.20 - 0.80 K/cumm [facility] Eosinophil abs 0.00 0.00 - 0.50 K/cumm [facility] Basophil abs 0.02 0.00 - 0.10 K/cumm [facility] Neutrophil pct 75.9 % [facility] Comment: Interpretive Data Percent cell count reference ranges are not reported, since discordance with absolute values may lead to misinterpretation of CBC data. Current Interpretive Data was last revised on 2017. Imm gran pct 4.1 % JOHAN Comment: Interpretive Data Percent cell count reference ranges are not reported, since discordance with absolute values may lead to misinterpretation of CBC data. Current Interpretive Data was last revised on 2017. Lymphocyte pct 12.1 % JOHAN Comment: Interpretive Data Percent cell count reference ranges are not reported, since discordance with absolute values may lead to misinterpretation of CBC data. Current Interpretive Data was last revised on 2017. Monocyte pct 7.6 % [facility] Comment: Interpretive Data Percent cell count reference ranges are not reported, since discordance with absolute values may lead to misinterpretation of CBC data. Current Interpretive Data was last revised on 2017. Eosinophil pct 0.0 % [facility] Comment: Interpretive Data Percent cell count reference ranges are not reported, since discordance with absolute values may lead to misinterpretation of CBC data. Current Interpretive Data was last revised on 2017. Basophil pct 0.3 % [facility] Comment: Interpretive Data Percent cell count reference ranges are not reported, since discordance with absolute values may lead to misinterpretation of CBC data. Current Interpretive Data was last revised on 2017. Blood 01/17/2025 5:37 AM CDT 01/17/2025 5:51 AM CDT Bessie Charlton NP LAB BLOOD ORDERABLES Final Result JOHAN [address] [address] Department of Laboratories [place], [place] [id number] * (ABNORMAL) CBC with auto differential (01/17/2025 5:37 AM CDT) WBC 6.30 3.80 - 9.90 K/cumm Hgb 7.7(L) 11.9 - 15.5 g/dL [facility] Hct 26.4(L) 35.6 - 45.5 % [facility] Plt 181 150 - 400 K/cumm [facility] MPV 8.9(L) 9.1 - 12.3 fL [facility] RBC 2.65(L) 3.90 - 5.20 M/cumm [facility] MCV 99.6(H) 81.3 - 96.4 fL [facility] Comment:No apparent cause fo r delta. MCH 29.1 27.1 - 33.3 pg [facility] MCHC 29.2(L) 32.3 - 35.7 g/dL [facility] RDW CV 14.0 11.1 - 14.9 % [facility] RDW SD 50.5(H) 35.7 - 48.1 fL [facility] NRBC abs 0.04(H) 0.00 - 0.01 K/cumm [facility] Blood 01/17/2025 5:37 AM CDT 01/17/2025 5:51 AM CDT eBssie Charlton NP LAB BLOOD ORDERABLES Final Result [facility] [address] [address] [place] [address] * (ABNORMAL) Basic metabolic panel (01/17/2025 5:37 AM CDT) Sodium 139 135 - 145 mmol/L Potassium, pl 4.7 3.3 - 4.9 mmol/L [facility] Chloride 101 97 - 110 mmol/L [facility] CO2 23 22 - 32 mmol/L [facility] Anion gap 15 2 - 15 mmol/L [facility] BUN 61(H) 6 - 25 mg/dL [facility] Creatinine 5.33(H) 0.60 - 1.10 mg/dL [facility] Glucose 113 70 - 199 mg/dL [facility] Comment: Interpretive Data Fasting glucose >/= [...] 9.3 8.5 - 10.3 mg/dL [facility] Blood 01/17/2025 5:37 AM CDT 01/17/2025 5:52 AM CDT Bessie Charlton NP LAB BLOOD ORDERABLES Final Result Performing Organization Address [facility] Co de Phone Number JOHAN LEON [address] [address] [facility] [employer] [place] [address] * POCT glucose (01/16/2025 10:38 PM CDT) Glucose, POC 147 70 - 199 mg/dL POC Performer [id number] [facility] Blood 01/16/2025 10:3 8 PM CDT 01/16/2025 10:38 PM CDT Soy Peterson MD LAB POCT ORDERABLES - DEVICE Final Result Performing Organization Address [facility] Co de Phone Number JOHAN LEON [address] [address] Department [place] [address] * POCT glucose (01/16/2025 4:58 PM CDT) Glucose, POC 137 70 - 199 mg/dL POC Performer [id number] [facility] Blood 01/16/2025 4:58 PM CDT 01/16/2025 4:58 PM CDT Soy Peterson MD LAB POCT ORDERABLES - DEVICE Final Result Performing Organization Address [facility] Co de Phone Number JOHAN LEON [address] [address] [facility] [employer] [address] * POCT glucose (01/16/2025 11:08 AM CDT) Glucose, POC 149 70 - 199 mg/dL POC Performer [id number] [facility] Blood 01/16/2025 11:0 8 AM CDT 01/16/2025 11:08 AM CDT Soy Peterson MD LAB POCT ORDERABLES - DEVICE Final Result JOHAN LEON [address] [address] [facility] [employer] [place] [address] * POCT glucose (01/16/2025 6:59 AM CDT) Glucose, POC 141 70 - 199 mg/dL POC Performer [id number] [facility] Blood 01/16/2025 6:59 AM CDT 01/16/2025 6:59 AM CDT Soy Peterson MD LAB POCT ORDERABLES - DEVICE Final Result Performing Organization Address City/[facility] Co de Phone Number JOHAN LEON [address] [address] Department [place] [address] * (ABNORMAL) eGFR (01/16/2025 5:25 AM CDT) [...] 5:25 AM CDT 01/16/2025 6:06 AM CDT us Bessie Long Latesha SMITH LAB BLOOD ORDERABLES Final Result JOHAN [address] [address] [place] [address] * (ABNORMAL) Differential, auto (01/16/2025 5:25 AM CDT) Neutrophil abs 4.50 1.50 - 6.50 K/cumm Imm gran abs 0.12(H) 0.00 - 0.10 K/cumm [facility] Lymphocyte abs 0.65(L) 0.80 - 3.30 K/cumm [facility] Monocyte abs 0.47 0.20 - 0.80 K/cumm [facility] Eosinophil abs 0.00 0.00 - 0.50 K/cumm [facility] Basophil abs 0.01 0.00 - 0.10 K/cumm [facility] Neutrophil pct 78.2 % [facility] Comment: Interpretive Data Percent cell count reference ranges are not reported, since discordance with absolute values may lead to misinterpretation of CBC data. Current Interpretive Data was last revised on 2017. Imm gran pct 2.1 % [facility] Comment: Interpretive Data Percent cell count reference ranges are not reported, since discordance with absolute values may lead to misinterpretation of CBC data. Current Interpretive Data was last revised on 2017. Lymphocyte pct 11.3 % [facility] Comment: Interpretive Data Percent cell count reference ranges are not reported, since discordance with absolute values may lead to misinterpretation of CBC data. Current Interpretive Data was last revised on 2017. Monocyte pct 8.2 % [facility] Comment: Interpretive Data Percent cell count reference ranges are not reported, since discordance with absolute values may lead to misinterpretation of CBC data. Current Interpretive Data was last revised on 2017. Eosinophil pct 0.0 % [facility] Comment: Interpretive Data Percent cell count reference ranges are not reported, since discordance with absolute values may lead to misinterpretation of CBC data. Current Interpretive Data was last revised on 2017. Basophil pct 0.2 % [facility] Comment: Interpretive Data Percent cell count reference ranges are not reported, since discordance with absolute values may lead to misinterpretation of CBC data. Current Interpretive Data was last revised on 2017. Blood 01/16/2025 5:25 AM CDT 01/16/2025 6:06 AM CDT Bessie Charlton NP LAB BLOOD ORDERABLES Final Result Performing Organization Address City/[facility]/ZIP Co de Phone Number JOHAN [address] [place] [address] * (ABNORMAL) CBC with auto differential (01/16/2025 5:25 AM CDT) WBC 5.75 3.80 - 9.90 K/cumm Hgb 7.6(L) 11.9 - 15.5 g/dL [facility] Hct 24.6(L) 35.6 - 45.5 % [facility] Plt 193 150 - 400 K/cumm [facility] MPV 9.1 9.1 - 12.3 fL [facility] RBC 2.61(L) 3.90 - 5.20 M/cumm [facility] MCV 94.3 81.3 - 96.4 fL [facility] MCH 29.1 27.1 - 33.3 pg [facility] MCHC 30.9(L) 32.3 - 35.7 g/dL [facility] RDW CV 14.0 11.1 - 14.9 % [facility] RDW SD 47.8 35.7 - 48.1 fL [facility] NRBC abs 0.03(H) 0.00 - 0.01 K/cumm [facility] Blood 01/16/2025 5:25 AM CDT 01/16/2025 6:06 AM CDT Bessie Mercedes Charlton NP LAB BLOOD ORDERABLES Final Result Performing Organization Address City/[facility]/ZIP Co de Phone Number JOHAN LEON [address] [place] [address] * (ABNORMAL) Basic metabolic panel (01/16/2025 5:25 AM CDT) Sodium 138 135 - 145 mmol/L Potassium, pl 4.4 3.3 - 4.9 mmol/L [facility] Chloride 100 97 - 110 mmol/L [facility] CH CO2 24 22 - 32 mmol/L [facility] Anion gap 14 2 - 15 mmol/L [facility] BUN 53(H) 6 - 25 mg/dL [facility] Creatinine 4.91(H) 0.60 - 1.10 mg/dL [facility] Glucose 134 70 - 199 mg/dL [facility] Comment: Interpretive Data Fasting glucose >/= [...] 2022. Calcium 9.0 8.5 - 10.3 mg/dL [facility] Blood 01/16/2025 5:25 AM CDT 01/16/2025 6:06 AM CDT us Bessie Charlton NP LAB BLOOD ORDERABLES Final Result [facility] [address] [address] [place] [address] * (ABNORMAL) POCT glucose (01/15/2025 8:46 PM CDT) Glucose, POC 201(H) 70 - 199 mg/dL POC Performer [id number] [facility] Blood 01/15/2025 8:46 PM CDT 01/15/2025 8:46 PM CDT us Soy Peterson MD LAB POCT ORDERABLES - DEVICE Final Result Performing Organization Address City/[facility]/ZIP Co de Phone Number JOHAN LEON [address] [address] [place] [address] * (ABNORMAL) Urinalysis reflex to microscopic and culture Urine (01/15/2025 3:50 PM CDT) Color, ur Susy Yellow Clarity, ur Turbid(A) Clear [facility] Specific gravity, ur 1.011 1.003 - 1.030 [facility] pH, urine 6.5 [facility] Comment: Interpretive Data U rine pH is affected by diet, medications, systemic acid-base disturbances, and renal tubular function. pH may affect urinary stone formation. For example, urine pH below 6.0 may help reduce the tendency for calcium phosphate stones and pH greater than 6.0 may reduce the tendency for uric acid stone formation. Source: [facility] [employer] Current Interpretive Data was last revised on 2017 Protein, ur ql 1+(A) Negative [facility] Glucose, ur ql Negative Negative [facility] Ketones, ur Negative Negative [facility] Bilirubin, ur Negative Negative [facility] Blood, ur 2+(A) Negative [facility] Urobilinogen, ur <2.0 <2.0 mg/dL [facility] Nitrite, ur Negative Negative [facility] Leukocyte esterase, ur 4+(A) Negative [facility] UA reflex comment Reflex to microscopic UA will be performed. [facility] Urine 01/15/2025 3:50 PM CDT 01/15/2025 3:50 PM CDT Bessie Charlton NP LAB MICROBIOLOGY - G ENERAL ORDERABLES Final Result JOHAN LEON [id number] Maria M Carrillo [place] [address] * (ABNORMAL) Urinalysis, microscopic only (01/15/2025 3:50 PM CDT) WBC, ur >50(A) 0 - 5 /HPF RBC, ur 21-50(A) 0 - 2 /HPF [facility] Epithelial cells, squamous, ur 1-5 0 - 5 /HPF [facility] Bacteria, ur Trace(A) [facility] Culture Reflex Comment Reflex to urine culture will be performed. [facility] Urine 01/15/2025 3:50 PM CDT 01/15/2025 3:53 PM CDT Bessie Charlton LAB URINE ORDERABLES Final Result Performing Organization Address [facility] Co de Phone Number [facility] [address] [address] [place] [address] * (ABNORMAL) Urine culture Urine (01/15/2025 3:50 PM CDT) Report Final Report: Growth indicates contamination with mixed bacterial deena. Please submit a new specimen with special attention given to the collection process and to prompt transport to the laboratory. (.) Comment:Testing performed by : [facility], [address] [place]., [address] Organism GROWTH INDICATES CONTAMINATION WITH MIXED DEENA. [facility] Urine 01/15/2025 3:50 PM CDT 01/15/2025 7:03 PM CDT Narrative [facility] - 01/16/2025 2:21 PM CDT Urine culture reflexed based upon urinalysis results. Testing performed by [facility] Microbiology Laboratory ([phone]) Bessie Charlton LAB MICROBIOLOGY - G ENERAL ORDERABLES Final Result Performing Organization Address [facility] Co de Phone Number JOHAN [phone] Maria M Department [employer] [place], [place] [id number] * Hepatitis panel, acute Blood (01/15/2025 3:30 PM CDT) Hep A IgM Nonreactive Nonreactive Comment: Interpretive Data: If Hep A IgM Ab is reported as Equivocal, a new sample should be drawn in two weeks for testing. Current interpretive data was last revised on 19. Hep B core IgM Nonreactive Nonreactive [facility] Comment: Interpretive Data If HepB Core IgM Ab is reported as Equivocal, a new sample should be drawn in two weeks for testing. Current interpretive data was last revised on 19. Hep C Ab Nonreactive Nonreactive JOHAN LEON Comment: Interpretive Data Nonreactive: Antibodies to HCV [...] last revised on 2019. HepBsAg Nonreactive Nonreactive JOHAN Blood 01/15/2025 3:30 PM CDT 01/15/2025 4:03 PM CDT us Ajith Cruz MD LAB MICROBIOLOGY - GENERAL OR DERABLES Final Result JOHAN [id number] [address] Carrillo [place] [address] * IR Exchange Tunneled CVC (01/15/2025 12:37 PM CDT) Anatomical Region Laterality Modality Body Left X-Ray Angiograph y 01/15/2025 1:34 PM CDT Impressions 01/15/2025 1:34 PM CDT Successful tunneled catheter placement. Electronically signed by: Hill Martínez M.D. Narrative 01/15/2025 1:34 PM CDT EXAMINATION: IR EXCHANGE [...] completed, removal can be scheduled by calling [facility] at [phone]. Procedure Note Hill Martínez MD - 01/15/2025 [...] completed, removal can be scheduled by calling [facility] at [phone]. IMPRESSION: Successful tunneled catheter placement. Electronically signed by: Hill Martínez M.D. Oswaldo Blanchard MD IMG IR PROCEDURES Final Resul t * POCT glucose (01/15/2025 11:04 AM CDT) Glucose, POC 149 70 - 199 mg/dL POC Performer [id number] JOHAN Blood 01/15/2025 11:0 4 AM CDT 01/15/2025 11:04 AM CDT Soy Peterson MD LAB POCT ORDERABLES - DEVICE Final Result Performing Organization Address [facility] Co de Phone Number JOHAN [phone] [address] [place] [address] * aPTT (01/15/2025 7:50 AM [...] ORDERABLES Final Re sult Performing Organization Address [facility] Co de Phone Number JOHAN [phone] [place] [address] * Protime-INR (01/15/2025 7:50 AM CDT) PT 10.9 9.7 - 13.0 sec INR 1.01 0.90 - 1.20 JOHAN Comment: Interpretive data Oral anticoagulant therapeutic ranges: Venous thromboembolism prophylaxis or treatment: 2.0-3.0 CARDIOLOGY Standard range: 2.0-3.0 High-intensity range: 2.5-3.5 Refer to indication-specific guidelines for appropriate target ranges for prosthetic heart valve replacement. Current interpretive data was last revised on 2019. Blood 01/15/2025 7:50 AM CDT 01/15/2025 8:06 AM CDT Oswaldo Blanchard MD LAB BLOOD ORDERABLES Final Re sult Performing Organization Address City/[facility]/ZIP Co de Phone Number JOHAN [address] [place] [address] * POCT glucose (01/15/2025 6:26 AM CDT) Glucose, POC 157 70 - 199 mg/dL POC Performer [id number] [facility] Blood 01/15/2025 6:26 AM CDT 01/15/2025 6:26 AM CDT Ward Perez DO LAB POCT ORDERABLES - DEV ICE Final Result Performing Organization Address [facility] Co de Phone Number JOHAN [phone] [place] [address] * (ABNORMAL) eGFR (01/15/2025 4:00 AM CDT) [...] NP LAB BLOOD ORDERABLES Final Result JOHAN [id number] Maria M Carrillo [place] [address] * (ABNORMAL) Differential, auto (01/15/2025 4:00 AM CDT) Neutrophil abs 4.87 1.50 - 6.50 K/cumm Imm gran abs 0.15(H) 0.00 - 0.10 K/cumm [facility] Lymphocyte abs 0.56(L) 0.80 - 3.30 K/cumm [facility] Monocyte abs 0.48 0.20 - 0.80 K/cumm [facility] Eosinophil abs 0.00 0.00 - 0.50 K/cumm [facility] Basophil abs 0.02 0.00 - 0.10 K/cumm [facility] Neutrophil pct 80.1 % [facility] Comment: Interpretive Data Percent cell count [...] revised on 2017. Lymphocyte pct 9.2 % [facility] Comment: Interpretive Data Percent cell count reference [...] on 2017. Eosinophil pct 0.0 % [facility] Comment: Interpretive Data Percent cell count reference ranges are not reported, since discordance with absolute values may lead to misinterpretation of CBC data. Current Interpretive Data was last revised on 2017. Basophil pct 0.3 % [facility] Comment: Interpretive Data Percent cell count reference ranges are not reported, since discordance with absolute values may lead to misinterpretation of CBC data. Current Interpretive Data was last revised on 2017. Blood 01/15/2025 4:00 AM CDT 01/15/2025 4:44 AM CDT Bessie Charlton NP LAB BLOOD ORDERABLES Final Result [facility] [address] [address] Carrillo [place] [address] * (ABNORMAL) CBC with auto differential (01/15/2025 4:00 AM CDT) WBC 6.08 3.80 - 9.90 K/cumm Hgb 7.5(L) 11.9 - 15.5 g/dL [facility] Hct 24.1(L) 35.6 - 45.5 % [facility] Plt 201 150 - 400 K/cumm [facility] MPV 9.0(L) 9.1 - 12.3 fL [facility] RBC 2.58(L) 3.90 - 5.20 M/cumm [facility] MCV 93.4 81.3 - 96.4 fL [facility] MCH 29.1 27.1 - 33.3 pg [facility] MCHC 31.1(L) 32.3 - 35.7 g/dL [facility] RDW CV 13.8 11.1 - 14.9 % [facility] RDW SD 47.4 35.7 - 48.1 fL [facility] NRBC abs 0.00 0.00 - 0.01 K/cumm [facility] Blood 01/15/2025 4:00 AM CDT 01/15/2025 4:44 AM CDT Bessie Mcwilliamskaren CERTIFIED PATHOLOGY ASSISTANT LAB BLOOD ORDERABLES Final Result JOHAN [address] Maria M [place] [address] * (ABNORMAL) Basic metabolic panel (01/15/2025 4:00 AM CDT) Sodium 136 135 - 145 mmol/L Potassium, pl 4.8 3.3 - 4.9 mmol/L [facility] Chloride 96(L) 97 - 110 mmol/L [facility] CO2 24 22 - 32 mmol/L [facility] Anion gap 16(H) 2 - 15 mmol/L [facility] BUN 79(H) 6 - 25 mg/dL [facility] Creatinine 6.95(H) 0.60 - 1.10 mg/dL [facility] Glucose 157 70 - 199 mg/dL [facility] Comment: [...] 2022. Calcium 9.0 8.5 - 10.3 mg/dL [facility] Blood 01/15/2025 4:00 AM CDT 01/15/2025 4:44 AM CDT Bessie Joshibatsheva CERTIFIED PATHOLOGY ASSISTANT LAB BLOOD ORDERABLES Final Result Performing Organization Address City/[facility]/ZIP Co de Phone Number JOHAN LEON [address] Maria M [place] [address] * POCT glucose (01/14/2025 8:07 PM CDT) Glucose, POC 167 70 - 199 mg/dL POC Performer [id number] [facility] Blood 01/14/2025 8:07 PM CDT 01/14/2025 8:07 PM CDT Ward CamposPsychiatric POCT ORDERABLES - DEV ICE Final Result Performing Organization Address City/[facility] Co de Phone Number JOHAN LEON [phone] Maria M [place] [address] * POCT glucose (01/14/2025 6:19 PM CDT) Glucose, POC 143 70 - 199 mg/dL POC Performer [id number] [facility] Blood 01/14/2025 6:19 PM CDT 01/14/2025 6:19 PM CDT Ward Perez [facility] POCT ORDERABLES - DEV ICE Final Result Performing Organization Address [facility] Phone Number JOHAN LEON [id number] Maria M [place] [address] * (ABNORMAL) eGFR (01/14/2025 1:14 PM CDT) eGFR 6(L) >=60 mL/min/1. 73 m2 [...] Charlton NP LAB BLOOD ORDERABLES Final Result [facility] [id number] Maria [place] [address] * (ABNORMAL) Differential, auto (01/14/2025 1:14 PM CDT) Neutrophil abs 4.46 1.50 - 6.50 K/cumm Imm gran abs 0.15(H) 0.00 - 0.10 K/cumm [facility] Lymphocyte abs 0.65(L) 0.80 - 3.30 K/cumm [facility] Monocyte abs 0.47 0.20 - 0.80 K/cumm [facility] Eosinophil abs 0.00 0.00 - 0.50 K/cumm [facility] Basophil abs 0.01 0.00 - 0.10 K/cumm [facility] Neutrophil pct 77.7 % [facility] Comment: Interpretive Data Percent cell count reference ranges are not reported, since discordance with absolute values may lead to misinterpretation of CBC data. Current Interpretive Data was last revised on 2017. Imm gran pct 2.6 % [facility] Comment: Interpretive Data Percent cell count reference ranges are not reported, since discordance with absolute values may lead to misinterpretation of CBC data. Current Interpretive Data was last revised on 2017. Lymphocyte pct 11.3 % [facility] Comment: Interpretive Data Percent cell count reference ranges are not reported, since discordance with absolute values may lead to misinterpretation of CBC data. Current Interpretive Data was last revised on 2017. Monocyte pct 8.2 % [facility] Comment: Interpretive Data Percent cell count reference ranges are not reported, since discordance with absolute values may lead to misinterpretation of CBC data. Current Interpretive Data was last revised on 2017. Eosinophil pct 0.0 % [facility] Comment: Interpretive Data Percent cell count reference ranges are not reported, since discordance with absolute values may lead to misinterpretation of CBC data. Current Interpretive Data was last revised on 2017. Basophil pct 0.2 % [facility] Comment: Interpretive Data Percent cell count reference ranges are not reported, since discordance with absolute values may lead to misinterpretation of CBC data. Current Interpretive Data was last revised on 2017. Blood 01/14/2025 1:14 PM CDT 01/14/2025 1:17 PM CDT Bessie Charlton NP LAB BLOOD ORDERABLES Final Result JOHAN Is[address] Maria [place] [address] * (ABNORMAL) CBC with auto differential (01/14/2025 1:14 PM CDT) WBC 5.74 3.80 - 9.90 K/cumm Hgb 7.9(L) 11.9 - 15.5 g/dL [facility] Hct 25.6(L) 35.6 - 45.5 % [facility] Plt 191 150 - 400 K/cumm [facility] MPV 8.5(L) 9.1 - 12.3 fL [facility] RBC 2.73(L) 3.90 - 5.20 M/cumm [facility] MCV 93.8 81.3 - 96.4 fL [facility] MCH 28.9 27.1 - 33.3 pg [facility] MCHC 30.9(L) 32.3 - 35.7 g/dL [facility] RDW CV 14.0 11.1 - 14.9 % [facility] RDW SD 48.2(H) 35.7 - 48.1 fL [facility] NRBC abs 0.00 0.00 - 0.01 K/cumm [facility] Blood 01/14/2025 1:14 PM CDT 01/14/2025 1:17 PM CDT Bessie Charlton NP LAB BLOOD ORDERABLES Final Result JOHAN LEON [address] Maria M Carrillo [place] [address] * (ABNORMAL) Comprehensive metabolic panel (01/14/2025 1:14 PM CDT) Sodium 140 135 - 145 mmol/L Potassium, pl 4.5 3.3 - 4.9 mmol/L [facility] Chloride 100 97 - 110 mmol/L [facility] CO2 26 22 - 32 mmol/L [facility] Anion gap 14 2 - 15 mmol/L [facility] BUN 77(H) 6 - 25 mg/dL [facility] Creatinine 6.58(H) 0.60 - 1.10 mg/dL [facility] Glucose 192 70 - 199 mg/dL [facility] Comment: [...] ORDERABLES Final Result [facility] [address] Maria M Carrillo [place] [address] * Occult blood, fecal non neoplasm screening (08/02/2017 7:41 AM CRM SYSTEM ADMINISTRATOR) [facility] Occult blood, fecal Negative Negative [facility] (FAN) Collection date , feces [id number] [facility] (FAN) Collection time 1, feces 739 [facility] (FAN) Stool 08/02/2017 7:41 AM CRM SYSTEM ADMINISTRATOR 08/02/2017 7:44 AM CRM SYSTEM ADMINISTRATOR Pam Rivas MD LAB BODY FLUIDS AND STOOLS ORDER SARIKA Final Result JOHAN ACOSTA (FAN) [facility] Department [place] [address] * MAMMOGRAPHY (01/11/2002) Pathologist [facility] Mammogram Normal Historical Provider HEALTH MAINTENANCE Final Result * COLONOSCOPY (10/14/2001) Pathologist [facility] Colonoscopy Unknown Historical Provider HEALTH MAINTENANCE Final Result from Last 3 Months or Most Recently Relevant to Health Maintenance Additional Health Concerns Infection Onset Date Last Indicated MDR gram neg/ESBL 11/02/2024 11/02/[address] [place] [address] [place] [address] [facility] MEDIC[facility] Address: [address] [place] [address] [facility] MEDICARE MEDICARE Advance Directives For more information, please contact: [phone] Documents on File Type Date Recorded Patient X Ray Developer Expl anation ADVANCE DIRECTIVE 10/17/2024 1:12 PM POLST - Phys Order for PT Preferences * Full Code (Latest Code Status on File) Date Activated Date Inactivated Comments 01/14/2025 12:30 PM 01/20/2025 9:36 PM * Full Code Date Activated Date Inactivated Comments 11/02/2024 5:16 PM 11/07/2024 9:54 PM * Full Code Date Activated Date Inactivated Comments 10/24/2024 8:03 AM 10/27/2024 8:35 PM * Full Code Date Activated Date Inactivated Comments 10/22/2024 7:10 PM 10/24/2024 8:03 AM * Full Code Date Activated Date Inactivated Comments 10/16/2024 2:07 PM 10/19/2024 6:20 PM Healthcare Agents on File Name Relationship Healthcare Agent [facility] Communication Nelly Hall Friend Health Care Agent Care Teams [employer] Relationship Specialty Start Date End Date No, Physician PCP - General 07/27/22 [place] [address] [address] [facility] [email or web address] [address] [place] [address] Consulting Physician Urology 01/20/25 Sophia Thomas MD [address] [facility] [[email or web address]] [address], [place] [address] Consulting Physician Family Medicine 01/20/25
--- OUTSIDE RECORDS SUMMARY | 2025-04-06 11:08 | XMS_ITS | Clinical Summary ---
Author Organization [facility] [address] Address [address] [place] [address] Phone Care Team Providers Care Corrosion Engineer Name Role Phone No, Physician Primary Care Provider [phone] Terence Garcia MD Unavailable [phone] Sophia Thomas MD Unavailable [phone] Allergies Active Allergy Reactions Criticality Noted Date [...] tablet (150 mg total) by mouth nightly 5 Active Active Problems Problem Noted Date [...] 08/04/2022 Assessment & Plan (08/04/2022 10:52 AM UI LEAD DEVELOPER): Had normal K on admission. K last 2 days has been 5.1, 5.3. whole blood K of 5.2. Creatinine stable. Suspect due to immobilization vs resolving YAYA. -treat with lokelma x 2 days -will need repeat labs at SNF in 3-7 days. CKD (chronic kidney disease) stage 3, GFR 30-59 ml/min 07/28/2022 Assessment & Plan (08/04/2022 10:50 AM UI LEAD DEVELOPER): Mild YAYA on top of CKD3 - improved, now creat stable at 1.29. (though might be artificially increased due to being on bactrim) - avoid nephrotoxins and renally dose meds Assessment & Plan (08/02/2022 2:25 PM UI LEAD DEVELOPER): Mild yaya on top of CKD 3 - will continue to monitor with daily BMP - avoid nephrotoxins and renally dose meds - creatinine stable but not back to baseline, Bactrim may be contributing to cr lab elevation - IVF today and reassess Assessment & Plan (08/01/2022 11:07 AM UI LEAD DEVELOPER): Mild yaya on top of CKD 3 - will continue to monitor with daily BMP - avoid nephrotoxins and renally dose meds - creatinine downtrending Assessment & Plan (07/31/2022 1:52 PM UI LEAD DEVELOPER): Mild yaya on top of CKD 3 - will continue to monitor with daily BMP - Hold am lasix, add small IVF bolus - avoid nephrotoxins and renally dose meds - creatinine downtrending Assessment & Plan (07/30/2022 1:34 PM UI LEAD DEVELOPER): Mild yaya on top of CKD 3 - will continue to monitor with daily BMP - slight bump today - Hold am lasix, add small IVF bolus - avoid nephrotoxins and renally dose meds Assessment & Plan (07/28/2022 2:32 PM UI LEAD DEVELOPER): Mild yaya on top of CKD 3 - will continue to monitor with daily BMP - Hold am lasix - send urinalysis - avoid nephrotoxins and renally dose meds Cellulitis of abdominal wall 07/27/2022 Assessment & Plan (08/04/2022 10:49 AM UI LEAD DEVELOPER): Pt presenting with abdominal wall erythema and [...] resolved Assessment & Plan (08/02/2022 2:23 PM UI LEAD DEVELOPER): Pt presenting with abdominal wall erythema and [...] improving Assessment & Plan (08/01/2022 10:56 AM UI LEAD DEVELOPER): Pt presenting with abdominal wall erythema and [...] improving Assessment & Plan (07/31/2022 1:51 PM UI LEAD DEVELOPER): Pt presenting with abdominal wall erythema and [...] positive Assessment & Plan (07/30/2022 1:32 PM UI LEAD DEVELOPER): Pt presenting with abdominal wall erythema and [...] contaminant Assessment & Plan (07/29/2022 2:29 PM UI LEAD DEVELOPER): Pt presenting with abdominal wall erythema and [...] appropriate Assessment & Plan (07/28/2022 2:24 PM UI LEAD DEVELOPER): Pt presenting with abdominal wall erythema and [...] 01/21/2022 Assessment & Plan (08/03/2022 3:28 PM UI LEAD DEVELOPER): CT in January 2022 showed 4 cm [...] radiology they have such a scanner at [facility] Assessment & Plan (08/02/2022 2:24 PM UI LEAD DEVELOPER): CT in January 2022 showed 4 cm [...] radiology they have such a scanner at [facility] Assessment & Plan (08/01/2022 11:05 AM UI LEAD DEVELOPER): CT in January 2022 showed 4 cm [...] not Assessment & Plan (07/31/2022 1:51 PM UI LEAD DEVELOPER): CT in January 2022 showed 4 cm indeterminant renal mass, has progressed since previous imaging and was recommended to have MRI outpatient but patient was not scanned. - ordered MRI and attempting to get as inpatient Assessment & Plan (07/30/2022 1:33 PM UI LEAD DEVELOPER): CT in January 2022 showed 4 cm indeterminant renal mass, has progressed since previous imaging and was recommended to have MRI outpatient but patient was not scanned. - ordered MRI Assessment & Plan (07/28/2022 2:30 PM UI LEAD DEVELOPER): CT in January 2022 showed 4 cm [...] 021 Assessment & Plan (08/04/2022 10:49 AM UI LEAD DEVELOPER): Pt with Hx of COPD (former smoker), SHELDON and OHS on 3L O2 chronically and Bipap At baseline - Cont home ICS/LABA (formulary substitute for home symbicort) and duonebs prn, bipap and supplemental O2. Assessment & Plan (08/02/2022 2:23 PM UI LEAD DEVELOPER): Pt with Hx of COPD (former smoker), SHELDON and OHS on 3L O2 chronically and Bipap - Cont home ICS/LABA (formulary substitute for home symbicort) and duonebs prn, bipap and supplemental O2. Assessment & Plan (08/01/2022 10:56 AM UI LEAD DEVELOPER): Pt with Hx of COPD (former smoker), SHELDON and OHS on 3L O2 chronically and Bipap - Cont home ICS/LABA (formulary substitute for home symbicort) and duonebs prn, bipap and supplemental O2. Assessment & Plan (07/31/2022 1:51 PM UI LEAD DEVELOPER): Pt with Hx of COPD (former smoker), SHELDON and OHS on 3L O2 chronically and Bipap - Cont home ICS/LABA (formulary substitute for home symbicort) and duonebs prn, bipap and supplemental O2. Assessment & Plan (07/30/2022 1:32 PM UI LEAD DEVELOPER): Pt with Hx of COPD (former smoker), SHELDON and OHS on 3L O2 chronically and Bipap - Cont home ICS/LABA (formulary substitute for home symbicort) and duonebs prn, bipap and supplemental O2. Assessment & Plan (07/29/2022 2:42 PM UI LEAD DEVELOPER): Pt with Hx of COPD (former smoker), SHELDON and OHS on 3L O2 chronically and Bipap - Cont home ICS/LABA (formulary substitute for home symbicort) and duonebs prn, bipap and supplemental O2. Assessment & Plan (07/28/2022 2:25 PM UI LEAD DEVELOPER): Pt with Hx of COPD (former smoker), [...] 04/02/2021 Assessment & Plan (08/04/2022 10:50 AM UI LEAD DEVELOPER): Patient with hx of left knee surgery 2/2 fracture and Right knee osteoarthritis. Also with hx of gout of Right Toe. Right knee exam is benign. - uric acid elevated - knee x-ray with OA - continue tylenol and oxycodone, added lidocaine patch Assessment & Plan (08/02/2022 2:22 PM UI LEAD DEVELOPER): Patient with hx of left knee surgery [...] (12/17/2021 1:05 PM CDT): - CPAP nightly. [facility] notes report CPAP at 6mm H2O with 2L O2 bleed in Assessment & Plan (12/16/2021 3:38 PM CDT): - CPAP nightly. [facility] notes report CPAP at 6mm H2O with 2L O2 bleed in Assessment & Plan (12/15/2021 10:05 AM CDT): - CPAP nightly. [facility] notes report CPAP at 6mm H2O with 2L O2 bleed in Assessment & Plan (12/14/2021 11:36 AM CDT): - CPAP nightly. [facility] notes report CPAP at 6mm H2O with 2L O2 bleed in Assessment & Plan (12/13/2021 10:36 AM CDT): - CPAP nightly. [facility] notes report CPAP at 6mm H2O with 2L O2 bleed in Assessment & Plan (12/11/2021 10:45 PM CDT): - CPAP nightly. [facility] notes report CPAP at 6mm H2O with 2L O2 bleed in Atypical chest pain 12/10/2018 Paroxysmal atrial fibrillation (CMS/HCC) 019 Assessment & Plan (12/17/2021 1:05 PM CDT): - Continue Xarelto and diltiazem Assessment & Plan (12/16/2021 3:38 PM CDT): - Continue Xarelto and diltiazem Assessment & Plan (12/15/2021 10:05 AM CDT): Xarelto, dilt Assessment & Plan (12/14/2021 11:36 AM CDT): claire Guerin Assessment & Plan (12/12/2021 9:36 AM CDT): claire Guerin Subclinical hypothyroidism 12/10/2018 Assessment & Plan (08/03/2022 3:28 PM UI LEAD DEVELOPER): Continue home synthyroid Assessment & Plan (08/02/2022 2:24 PM UI LEAD DEVELOPER): Continue home synthyroid Assessment & Plan (08/01/2022 10:57 AM UI LEAD DEVELOPER): Continue home synthyroid Assessment & Plan (07/31/2022 1:51 PM UI LEAD DEVELOPER): Continue home synthyroid Assessment & Plan (07/30/2022 1:33 PM UI LEAD DEVELOPER): Continue home synthyroid Assessment & Plan (07/27/2022 8:24 PM UI LEAD DEVELOPER): Continue home synthyroid Assessment & Plan (01/23/2022 [...] 03/19/2018 Assessment & Plan (08/03/2022 3:26 PM UI LEAD DEVELOPER): Continue home xarelto Assessment & Plan (08/02/2022 2:24 PM UI LEAD DEVELOPER): Continue home xarelto Assessment & Plan (08/01/2022 10:57 AM UI LEAD DEVELOPER): Continue home xarelto Assessment & Plan (07/31/2022 1:51 PM UI LEAD DEVELOPER): Continue home xarelto Assessment & Plan (07/30/2022 1:33 PM UI LEAD DEVELOPER): Continue home xarelto Assessment & Plan (07/27/2022 8:25 PM UI LEAD DEVELOPER): Continue home xarelto Assessment & Plan (01/23/2022 [...] Assessment & Plan (12/13/2021 10:36 AM CDT): arcadio Assessment & Plan (12/12/2021 9:35 AM CDT): xarelto Assessment & Plan (03/19/2018 2:23 PM CDT): Patient gives a history of pulmonary embolus less than 3 months ago no [place] details she has had numerous hospitalizations in [...] (10/27/2017): Added automatically from request for surgery [id number] Restless leg 10/18/2017 Assessment & Plan (08/03/2022 3:28 PM UI LEAD DEVELOPER): Continue pramipexole Assessment & Plan (08/02/2022 2:23 PM UI LEAD DEVELOPER): Continue pramipexole Assessment & Plan (08/01/2022 10:57 AM UI LEAD DEVELOPER): Continue pramipexole Assessment & Plan (07/31/2022 1:51 PM UI LEAD DEVELOPER): Continue pramipexole Assessment & Plan (07/30/2022 1:33 PM UI LEAD DEVELOPER): Continue pramipexole Assessment & Plan (07/27/2022 8:23 PM UI LEAD DEVELOPER): Continue pramipexole Assessment & Plan (12/17/2021 1:04 [...] 10/18/2017 Assessment & Plan (10/18/2017 6:00 PM UI LEAD DEVELOPER): Informed patient today that she would need to comply with this office recommendations on management of her multiple chronic conditions, failure to do so, would mean that she would need to find another primary care provider. Chronic pain syndrome 10/18/2017 Assessment & Plan (12/17/2021 1:04 PM CDT): Chronic pain of bilateral legs s/p fracture, shoulder and back. On Vanderbilt 7.5-325 q6h prn at home - tylenol 1g q6h prn, oxycodone 10mg q6h prn - home gabapentin 100mg TID - scheduled and prn bowel regimen - started lidoderm patches for most painful area Assessment & Plan (12/16/2021 3:37 PM CDT): chronic pain of bilateral legs s/p fracture, shoulder and back. On Vanderbilt 7.5-325 q6h prn at home - tylenol 1g q6h prn, oxycodone 10mg q6h prn - home gabapentin 100mg TID - scheduled and prn bowel regimen - started lidoderm patches for most painful area Assessment & Plan (12/15/2021 10:05 AM CDT): chronic pain of bilateral legs s/p fracture, shoulder and back. On Vanderbilt 7.5-325 q6h prn at home - tylenol 1g q6h prn, oxycodone 10mg q6h prn - home gabapentin 100mg TID - scheduled and prn bowel regimen - started lidoderm patches for most painful area Assessment & Plan (12/14/2021 11:36 AM CDT): chronic pain of bilateral legs s/p fracture, shoulder and back. On Vanderbilt 7.5-325 q6h prn at home - tylenol 1g q6h prn, oxycodone 10mg q6h prn - home gabapentin 100mg TID - scheduled and prn bowel regimen - started lidoderm patches for most painful area Assessment & Plan (12/13/2021 10:36 AM CDT): chronic pain of bilateral legs s/p fracture, shoulder and back. On Vanderbilt 7.5-325 q6h prn at home - tylenol 1g q6h prn, oxycodone 10mg q6h prn - home gabapentin 100mg TID - scheduled and prn bowel regimen - started lidoderm patches for most painful area Assessment & Plan (12/12/2021 9:35 AM CDT): chronic pain of bilateral legs s/p fracture, shoulder and back. On Vanderbilt 7.5-325 q6h prn at home - tylenol [...] events Assessment & Plan (10/18/2017 5:57 PM UI LEAD DEVELOPER): Referred to pain mgmt for further eval/tx. Wound dehiscence 10/18/2017 Assessment & Plan (10/18/2017 5:58 PM UI LEAD DEVELOPER): Referral given 2 months ago to be seen by wound care. Patient did not follow up with them. Seizure disorder 07/20/2017 Assessment & Plan (08/03/2022 3:28 PM UI LEAD DEVELOPER): Controlled. Continue home keppra & oxcarbazapine. Assessment & Plan (08/02/2022 2:23 PM UI LEAD DEVELOPER): Controlled. Continue home keppra & oxcarbazapine. Assessment & Plan (08/01/2022 10:57 AM UI LEAD DEVELOPER): Controlled. Continue home keppra & oxcarbazapine. Assessment & Plan (07/31/2022 1:51 PM UI LEAD DEVELOPER): Controlled. Continue home keppra & oxcarbazapine. Assessment & Plan (07/30/2022 1:33 PM UI LEAD DEVELOPER): Controlled. Continue home keppra & oxcarbazapine. Assessment & Plan (07/27/2022 8:25 PM UI LEAD DEVELOPER): Controlled. Continue home keppra & oxcarbazapine. Assessment [...] on gabapentin patient was previously followed at [facility] in [facility]. Plans continue gabapentin this time Assessment & Plan (10/18/2017 5:56 PM UI LEAD DEVELOPER): Self-reported, patient was referred to neurology 2 months ago immediately after she reported a seizure. Patient did not mellisa appt with neurology, patient encouraged to comply. Personality disorder 07/20/2017 Assessment & Plan (03/19/2018 2:33 PM CDT): Psychiatric referral made Assessment & Plan (10/18/2017 5:53 PM UI LEAD DEVELOPER): Encouraged patient to f/u through with Psychiatry referral. Bipolar 1 disorder, depressed, mild 07/20/2017 Assessment & Plan (08/03/2022 3:17 PM UI LEAD DEVELOPER): Symptoms controlled, cont home regimen of sertraline, Seroquel Assessment & Plan (08/02/2022 2:23 PM UI LEAD DEVELOPER): Symptoms controlled, cont home regimen of sertraline, Seroquel Assessment & Plan (08/01/2022 10:56 AM UI LEAD DEVELOPER): Symptoms controlled, cont home regimen of sertraline, Seroquel Assessment & Plan (07/31/2022 1:51 PM UI LEAD DEVELOPER): Symptoms controlled, cont home regimen of sertraline, Seroquel Assessment & Plan (07/30/2022 1:33 PM UI LEAD DEVELOPER): Symptoms controlled, cont home regimen of sertraline, Seroquel Assessment & Plan (07/29/2022 2:42 PM UI LEAD DEVELOPER): Symptoms controlled, cont home regimen of sertraline, Seroquel Assessment & Plan (07/27/2022 8:23 PM UI LEAD DEVELOPER): Symptoms controlled, cont home regimen of sertraline, [...] hallucinations. Assessment & Plan (10/18/2017 5:53 PM UI LEAD DEVELOPER): Rx refills given. Encouraged patient to f/u [...] therapy Assessment & Plan (10/18/2017 5:51 PM UI LEAD DEVELOPER): Hypertension is improving with treatment. Continue current treatment regimen. Dietary sodium restriction. Weight loss. Continue current medications. Blood pressure will be reassessed at the next regular appointment. Insomnia 07/20/2017 Assessment & Plan (10/18/2017 5:52 PM UI LEAD DEVELOPER): Will not fill both trazodone AND ambien, [...] 07/20/2017 Assessment & Plan (10/18/2017 5:56 PM UI LEAD DEVELOPER): Encouraged patient to follow through with nephrology referral she was given 2 months ago. Referral re-printed. Class 3 severe obesity with body mass index (BMI) greater than or equal to 70 in adult 07/20/2017 Assessment & Plan (08/03/2022 3:26 PM UI LEAD DEVELOPER): Pt with severe obesity, complicated by SHELDON/OHS. Leg fractures in 2020 managed nonoperatively, pt has been bed bound and living in SNF since that time. Assessment & Plan (08/02/2022 2:23 PM UI LEAD DEVELOPER): Pt with severe obesity, complicated by SHELDON/OHS. Leg fractures in 2020 managed nonoperatively, pt has been bed bound and living in SNF since that time. Assessment & Plan (08/01/2022 10:56 AM UI LEAD DEVELOPER): Pt with severe obesity, complicated by SHELDON/OHS. Leg fractures in 2020 managed nonoperatively, pt has been bed bound and living in SNF since that time. Assessment & Plan (07/31/2022 1:51 PM UI LEAD DEVELOPER): Pt with severe obesity, complicated by SHELDON/OHS. Leg fractures in 2020 managed nonoperatively, pt has been bed bound and living in SNF since that time. Assessment & Plan (07/30/2022 1:33 PM UI LEAD DEVELOPER): Pt with severe obesity, complicated by SHELDON/OHS. Leg fractures in 2020 managed nonoperatively, pt has been bed bound and living in SNF since that time. Assessment & Plan (07/27/2022 8:25 PM UI LEAD DEVELOPER): Pt with severe obesity, complicated by SHELDON/OHS. [...] she informs me that Dr. Panda in [facility] is willing to move this pannus patient referred to this particular physician to address this problem soon as possible. 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 Assessment & Plan (10/18/2017 5:56 PM UI LEAD DEVELOPER): Obesity is unchanged. Discussed the patient's BMI. [...] supratherapeutic level overnight. Plan to return to [facility] tomorrow. Assessment & Plan (12/13/2021 10:35 AM [...] one more day then likely return to MD tomorrow with better wound care Acute kidney [...] ensure stability prior to return to her [facility]. Encounters Date Type Department Care Team Description 03/13/2025 Telephone [facility] [address] [place] [address] [place] [address] Zachary Augustine MD PhD 02/15/2025 Telephone [facility] [address] [place] [address] [place] [id number] Zachary Augustine MD PhD 01/20/2025 4:49 PM CDT - 01/20/2025 11:59 PM CDT Hospital Encounter [facility] [address] [place] [address] Ward Perez DO Discharge Disposition: Discharge to home or self care 01/14/2025 11:50 AM CDT - 01/20/2025 5:36 PM CDT Hospital Encounter [facility] [address] [place] [address] Ward Perez DO Ogunremi, Olumide Omolulu, MD Discharge Disposition: Discharge to fpc facility 01/12/2025 Telephone [facility] ([facility]) - [facility] [address] [place] [id number] Larissa Lopez MD from Last 3 Months Immunizations Immunization Administration [...] 08/07/2017 Right stent placed APPENDECTOMY SKIN BIOPSY EXCHANGE TUNNELED LINE 01/15/2025 Left Medical History Medical History Date Comments Arthritis 2016 Depression 1998 Gout 2017 Hypertension 2000 Chronic kidney disease 2006 Seizures (HCC) 2016 Fibromyalgia 2003 Osteoarthritis uses motorized w heelchair and walker Diabetes mellitus (HCC) Sleep apnea Seasonal allergies 1970 Bipolar 1 disorder (HCC) History of pulmonary embolism Subclinical hypothyroidism 12/10/2018 CHF (congestive heart failure) (HCC) COPD (chronic obstructive pu lmonary disease) (HCC) Family History Medical History Relation Name Comments [...] week 01/15/2025 How often do you attend mormon or caodaism serv ices? Never 01/15/2025 Do you belong to any clubs o r organizations such as mormon groups, unions, fraternal or athletic groups, or [...] place to sleep or slept in a group home (including now)? No 07/30/2022 Housing Stability Vital Sign Answer Pepe e Recorded In the last 12 months, was t here a time when you were not able to pay the mortgage or rent on time? No 01/15/2025 In the past 12 months, how m any times have you moved where you were living? 0 01/15/2025 At any time in the past 12 m [facility], were you homeless or living in a group home (including now)? No 01/15/2025 Personal Safety Answer [...] 01/14/2025 4:59 PM CDT Plan of Treatment Health Maintenance [...] 5 season) 2024 12/25/2021, 03/21/2021 Influenza Vaccine (#1) 2025 , 07/03/2021, 08/10/2019, Additional history exists Fall Risk Assessment 01/20/2026 01/20/2025 DTaP/Tdap/Td Vaccine (3 - Td or Tdap) 04/30/2031 04/30/2021, 04/20/2021 Colon Cancer Screening-CT Colonography Discontinued 10/14/2001 Colon Cancer Screening-DNA Stool Discontinued 10/14/19 Colon Cancer Screening-Sigmoidoscopy Discontinued 10/14/2001 Colon Cancer Screening-FIT Discontinued 08/02/2017, Hepatitis B Screening Completed 01/15/2025 Hepatitis C Screening Completed 01/15/2025 , 10/07/2024, 09/09/2024, Additional history exists Medical Devices Implanted Type Area Spool Worker Device Identifier Shelf Expiration Date Model / Serial / Lot [employer] Duramax Vascpak Safesheath D-Pro 15.5fr 28cm Kit Catheter [id number] - [id number] Implanted:Qty: 1 on 01/15/2025 by Hill aMrtínez MD at [facility] 12/11/2026 [id number] / / [id number] Procedures Procedure Name Priority Date/Time Associated Diagnosis [...] BLOOD, FECAL (FIT) Routine 08/02/2017 7:41 AM UI LEAD DEVELOPER HM MAMMOGRAPHY Routine 01/11/2002 HM COLONOSCOPY Routine 10/14/2001 from Last 3 Months or Most Recently Relevant to Health Maintenance Results * POCT glucose (01/20/2025 11:46 AM CDT) [facility] Glucose, POC 137 70 - 199 mg/dL POC Performer [id number] JOHAN LEON Blood 01/20/2025 11:4 6 AM CDT 01/20/2025 11:46 AM CDT Ward Perez DO LAB POCT ORDERABLES - DEV ICE Final Result JOHAN LEON [id number] Department [place] [address] * (ABNORMAL) eGFR (01/20/2025 6:17 AM CDT) Pathologist [facility] eGFR 17(L) >=60 mL/min/1. 73 m2 Comment: [...] NP LAB BLOOD ORDERABLES Final Result JOHAN [address] Department [place] [address] * (ABNORMAL) Differential, auto (01/20/2025 6:17 AM CDT) Pathologist [facility] Neutrophil abs 3.69 1.50 - 6.50 K/cumm Imm gran abs 0.34(H) 0.00 - 0.10 K/cumm [facility] Lymphocyte abs 0.84 0.80 - 3.30 K/cumm [facility] Monocyte abs 0.47 0.20 - 0.80 K/cumm [facility] Eosinophil abs 0.00 0.00 - 0.50 K/cumm [facility] Basophil abs 0.01 0.00 - 0.10 K/cumm [facility] Neutrophil pct 68.9 % [facility] Comment: Interpretive Data Percent cell count reference ranges are not reported, since discordance with absolute values may lead to misinterpretation of CBC data. Current Interpretive Data was last revised on 2017. Imm gran pct 6.4 % [facility] Comment: Interpretive Data Percent cell count reference ranges are not reported, since discordance with absolute values may lead to misinterpretation of CBC data. Current Interpretive Data was last revised on 2017. Lymphocyte pct 15.7 % [facility] Comment: Interpretive Data Percent cell count reference ranges are not reported, since discordance with absolute values may lead to misinterpretation of CBC data. Current Interpretive Data was last revised on 2017. Monocyte pct 8.8 % [facility] Comment: Interpretive Data Percent cell count reference ranges are not reported, since discordance with absolute values may lead to misinterpretation of CBC data. Current Interpretive Data was last revised on 2017. Eosinophil pct 0.0 % [facility] Comment: Interpretive Data Percent cell count reference ranges are not reported, since discordance with absolute values may lead to misinterpretation of CBC data. Current Interpretive Data was last revised on 2017. Basophil pct 0.2 % [facility] Comment: Interpretive Data Percent cell count reference ranges are not reported, since discordance with absolute values may lead to misinterpretation of CBC data. Current Interpretive Data was last revised on 2017. Blood 01/20/2025 6:17 AM CDT 01/20/2025 7:15 AM CDT Bessie Charlton NP LAB BLOOD ORDERABLES Final Result [facility] [id number] Department [place] [address] * (ABNORMAL) CBC with auto differential (01/20/2025 6:17 AM CDT) WBC 5.35 3.80 - 9.90 K/cumm Hgb 8.4(L) 11.9 - 15.5 g/dL [facility] Hct 27.3(L) 35.6 - 45.5 % [facility] Plt 172 150 - 400 K/cumm [facility] MPV 8.8(L) 9.1 - 12.3 fL [facility] RBC 2.86(L) 3.90 - 5.20 M/cumm [facility] MCV 95.5 81.3 - 96.4 fL [facility] MCH 29.4 27.1 - 33.3 pg [facility] MCHC 30.8(L) 32.3 - 35.7 g/dL [facility] RDW CV 14.3 11.1 - 14.9 % [facility] RDW SD 47.7 35.7 - 48.1 fL [facility] NRBC abs 0.03(H) 0.00 - 0.01 K/cumm [facility] Blood 01/20/2025 6:17 AM CDT 01/20/2025 7:15 AM CDT Bessie Charlton NP LAB BLOOD ORDERABLES Final Result [facility] [id number] Department of Laboratories [place] [id number] * (ABNORMAL) Basic metabolic panel (01/20/2025 6:17 AM CDT) Sodium 138 135 - 145 mmol/L Potassium, pl 3.8 3.3 - 4.9 mmol/L [facility] Chloride 98 97 - 110 mmol/L [facility] CO2 28 22 - 32 mmol/L [facility] Anion gap 12 2 - 15 mmol/L [facility] BUN 20 6 - 25 mg/dL [facility] Creatinine 3.01(H) 0.60 - 1.10 mg/dL [facility] Glucose 100 70 - 199 mg/dL [facility] Comment: Interpretive Data Fasting glucose >/= [...] BLOOD ORDERABLES Final Result Performing Organization Address City/[facility]/ZIP Co de Phone Number JOHAN LEON [address] [address] [place] [address] * POCT glucose (01/20/2025 6:13 AM CDT) Glucose, POC 102 70 - 199 mg/dL POC Performer [id number] [facility] Blood 01/20/2025 6:13 AM CDT 01/20/2025 6:13 AM CDT Soy Peterson MD LAB POCT ORDERABLES - DEVICE Final Result Performing Organization Address [facility] Co de Phone Number [place] LEON [address] [address] [place] [address] * POCT glucose (01/19/2025 8:12 PM CDT) Glucose, POC 120 70 - 199 mg/dL POC Performer [id number] [facility] Blood 01/19/2025 8:12 PM CDT 01/19/2025 8:12 PM CDT Soy Peterson MD LAB POCT ORDERABLES - DEVICE Final Result Performing Organization Address City/[facility]/ZIP Co de Phone Number JOHAN LEON [address] [address] [facility] [place] [address] * POCT glucose (01/19/2025 5:20 PM CDT) Glucose, POC 127 70 - 199 mg/dL POC Performer [id number] [facility] Blood 01/19/2025 5:20 PM CDT 01/19/2025 5:20 PM CDT Soy Peterson MD LAB POCT ORDERABLES - DEVICE Final Result Performing Organization Address City/[facility]/ZIP Co de Phone Number JOHAN LEON [address] [address] [place] [address] * POCT glucose (01/19/2025 2:21 PM CDT) Glucose, POC 110 70 - 199 mg/dL POC Performer [id number] [facility] Blood 01/19/2025 2:21 PM CDT 01/19/2025 2:21 PM CDT Soy Peterson MD LAB POCT ORDERABLES - DEVICE Final Result Performing Organization Address [facility] de Phone Number JOHAN LEON [address] [address] [place] [address] * (ABNORMAL) eGFR (01/19/2025 7:31 AM CDT) [...] Charlton NP LAB BLOOD ORDERABLES Final Result [facility] [address] [address] [place] [address] * (ABNORMAL) Differential, auto (01/19/2025 7:31 AM CDT) Neutrophil abs 3.90 1.50 - 6.50 K/cumm Imm gran abs 0.33(H) 0.00 - 0.10 K/cumm [facility] Lymphocyte abs 0.96 0.80 - 3.30 K/cumm [facility] Monocyte abs 0.52 0.20 - 0.80 K/cumm [facility] Eosinophil abs 0.00 0.00 - 0.50 K/cumm [facility] Basophil abs 0.02 0.00 - 0.10 K/cumm [facility] Neutrophil pct 68.0 % [facility] Comment: Interpretive Data Percent cell count reference ranges are not reported, since discordance with absolute values may lead to misinterpretation of CBC data. Current Interpretive Data was last revised on 2017. Imm gran pct 5.8 % [facility] Comment: Interpretive Data Percent cell count reference ranges are not reported, since discordance with absolute values may lead to misinterpretation of CBC data. Current Interpretive Data was last revised on 2017. Lymphocyte pct 16.8 % [facility] Comment: Interpretive Data Percent cell count reference ranges are not reported, since discordance with absolute values may lead to misinterpretation of CBC data. Current Interpretive Data was last revised on 2017. Monocyte pct 9.1 % [facility] Comment: Interpretive Data Percent cell count reference ranges are not reported, since discordance with absolute values may lead to misinterpretation of CBC data. Current Interpretive Data was last revised on 2017. Eosinophil pct 0.0 % [facility] Comment: Interpretive Data Percent cell count [...] LAB BLOOD ORDERABLES Final Result JOHAN LEON [address] [place] [employer] [address] * (ABNORMAL) CBC with auto differential (01/19/2025 7:31 AM CDT) WBC 5.73 3.80 - 9.90 K/cumm Hgb 8.1(L) 11.9 - 15.5 g/dL [facility] Hct 26.2(L) 35.6 - 45.5 % [facility] Plt 158 150 - 400 K/cumm [facility] MPV 8.5(L) 9.1 - 12.3 fL [facility] RBC 2.77(L) 3.90 - 5.20 M/cumm [facility] MCV 94.6 81.3 - 96.4 fL [facility] MCH 29.2 27.1 - 33.3 pg [facility] MCHC 30.9(L) 32.3 - 35.7 g/dL [facility] RDW CV 13.8 11.1 - 14.9 % [facility] RDW SD 46.5 35.7 - 48.1 fL [facility] NRBC abs 0.05(H) 0.00 - 0.01 K/cumm [facility] Blood 01/19/2025 7:31 AM CDT 01/19/2025 7:48 AM CDT Bessie Charlton NP LAB BLOOD ORDERABLES Final Result JOHAN LEON [address] [place] [address] * (ABNORMAL) Basic metabolic panel (01/19/2025 7:31 [...] Calcium 9.6 8.5 - 10.3 mg/dL [facility] Blood 01/19/2025 7:31 AM CDT 01/19/2025 7:47 AM CDT Bessie Charlton S[employer]ER [employer] ATTENDANT LAB BLOOD ORDERABLES Final Result [facility]WON [address] [address] Department [place] [address] * POCT glucose (01/19/2025 6:53 AM CDT) Glucose, POC 115 70 - 199 mg/dL POC Performer [id number] [facility] Blood 01/19/2025 6:53 AM CDT 01/19/2025 6:53 AM CDT Soy Peterson MD LAB POCT ORDERABLES - DEVICE Final Result Performing Organization Address [facility] Co de Phone Number JOHAN LEON [address] [address] [facility] [place] [address] * POCT glucose (01/18/2025 10:35 PM CDT) Glucose, POC 122 70 - 199 mg/dL POC Performer [id number] [facility] Blood 01/18/2025 10:3 5 PM CDT 01/18/2025 10:35 PM CDT us Soy Peterson MD LAB POCT ORDERABLES - DEVICE Final Result Performing Organization Address [facility] de Phone Number JOHAN LEON [address] [place] [address] * POCT glucose (01/18/2025 4:52 PM CDT) Glucose, POC 139 70 - 199 mg/dL POC Performer [id number] [facility] Blood 01/18/2025 4:52 PM CDT 01/18/2025 4:52 PM CDT us Soy Peterson MD LAB POCT ORDERABLES - DEVICE Final Result Performing Organization Address [facility] Co de Phone Number JOHAN LEON [address] [address] [facility] [place] [address] * POCT glucose (01/18/2025 10:50 AM CDT) Glucose, POC 159 70 - 199 mg/dL POC Performer [id number] [facility] Blood 01/18/2025 10:5 0 AM CDT 01/18/2025 10:50 AM CDT Soy Peterson MD LAB POCT ORDERABLES - DEVICE Final Result Performing Organization Address City/[facility] Co de Phone Number JOHAN LEON [address] [address] Department [place] [address] * POCT glucose (01/18/2025 7:35 AM CDT) Pathologist [facility] Glucose, POC 105 70 - 199 mg/dL POC Performer [id number] JOHAN Blood 01/18/2025 7:35 AM CDT 01/18/2025 7:35 AM CDT us Soy Peterson MD LAB POCT ORDERABLES - DEVICE Final Result Performing Organization Address [facility] Co de Phone Number JOHAN LEON [address] [address] Department [place] [address] * (ABNORMAL) eGFR (01/18/2025 4:04 AM CDT) Pathologist [facility] eGFR 15(L) >=60 mL/min/1. 73 m2 Comment: [...] NP LAB BLOOD ORDERABLES Final Result JOHAN [address] Department [place] [address] * (ABNORMAL) Differential, auto (01/18/2025 4:04 AM CDT) Neutrophil abs 4.06 1.50 - 6.50 K/cumm Imm gran abs 0.25(H) 0.00 - 0.10 K/cumm [facility] Lymphocyte abs 0.87 0.80 - 3.30 K/cumm [facility] Monocyte abs 0.49 0.20 - 0.80 K/cumm [facility] Eosinophil abs 0.00 0.00 - 0.50 K/cumm [facility] Basophil abs 0.02 0.00 - 0.10 K/cumm [facility] Neutrophil pct 71.3 % [facility] Comment: Interpretive Data Percent cell count reference ranges are not reported, since discordance with absolute values may lead to misinterpretation of CBC data. Current Interpretive Data was last revised on 2017. Imm gran pct 4.4 % [facility] Comment: Interpretive Data Percent cell count reference ranges are not reported, since discordance with absolute values may lead to misinterpretation of CBC data. Current Interpretive Data was last revised on 2017. Lymphocyte pct 15.3 % [facility] Comment: Interpretive Data Percent cell count reference ranges are not reported, since discordance with absolute values may lead to misinterpretation of CBC data. Current Interpretive Data was last revised on 2017. Monocyte pct 8.6 % [facility] Comment: Interpretive Data Percent cell count reference ranges are not reported, since discordance with absolute values may lead to misinterpretation of CBC data. Current Interpretive Data was last revised on 2017. Eosinophil pct 0.0 % [facility] Comment: Interpretive Data Percent cell count reference ranges are not reported, since discordance with absolute values may lead to misinterpretation of CBC data. Current Interpretive Data was last revised on 2017. Basophil pct 0.4 % [facility] Comment: Interpretive Data Percent cell count reference ranges are not reported, since discordance with absolute values may lead to misinterpretation of CBC data. Current Interpretive Data was last revised on 2017. Blood 01/18/2025 4:04 AM CDT 01/18/2025 5:22 AM CDT Bessie Charlton NP LAB BLOOD ORDERABLES Final Result Performing Organization Address City/[facility]/ZIP Co de Phone Number JOHAN [address] [place] [address] * (ABNORMAL) CBC with auto differential (01/18/2025 4:04 AM CDT) WBC 5.69 3.80 - 9.90 K/cumm Hgb 7.9(L) 11.9 - 15.5 g/dL [facility] Hct 25.6(L) 35.6 - 45.5 % [facility] Plt 198 150 - 400 K/cumm [facility] MPV 9.1 9.1 - 12.3 fL [facility] RBC 2.69(L) 3.90 - 5.20 M/cumm [facility] MCV 95.2 81.3 - 96.4 fL [facility] MCH 29.4 27.1 - 33.3 pg [facility] MCHC 30.9(L) 32.3 - 35.7 g/dL [facility] RDW CV 13.9 11.1 - 14.9 % [facility] RDW SD 47.4 35.7 - 48.1 fL [facility] NRBC abs 0.05(H) 0.00 - 0.01 K/cumm [facility] Blood 01/18/2025 4:04 AM CDT 01/18/2025 5:22 AM CDT Bessie Charlton NP LAB BLOOD ORDERABLES Final Result JOHAN LEON [address] [place] [address] * (ABNORMAL) Basic metabolic panel (01/18/2025 4:04 AM CDT) Sodium 139 135 - 145 mmol/L Potassium, pl 3.8 3.3 - 4.9 mmol/L [facility] Chloride 99 97 - 110 mmol/L [facility] CO2 27 22 - 32 mmol/L [facility] Anion gap 13 2 - 15 mmol/L [facility] BUN 29(H) 6 - 25 mg/dL [facility] Creatinine 3.23(H) 0.60 - 1.10 mg/dL [facility] Glucose 89 70 - 199 mg/dL [facility] Comment: Interpretive Data Fasting glucose >/= 126 [...] 2022. Calcium 9.3 8.5 - 10.3 mg/dL [facility] Blood 01/18/2025 4:04 AM CDT 01/18/2025 5:27 AM CDT us Bessie Charlton NP LAB BLOOD ORDERABLES Final Result Performing Organization Address City/[facility]/ZIP Co de Phone Number JOHAN LEON [address] [address] [place] [address] * POCT glucose (01/17/2025 8:08 PM CDT) [facility] Signature Glucose, POC 148 70 - 199 mg/dL POC Performer [id number] [facility] Blood 01/17/2025 8:08 PM CDT 01/17/2025 8:08 PM CDT us Soy Peterson MD LAB POCT ORDERABLES - DEVICE Final Result Performing Organization Address City/[facility]/ZIP Co de Phone Number JOHAN LEON [address] [address] [place] [address] * POCT glucose (01/17/2025 5:17 PM CDT) Glucose, POC 119 70 - 199 mg/dL POC Performer [id number] [facility] Blood 01/17/2025 5:17 PM CDT 01/17/2025 5:17 PM CDT Soy Peterson MD LAB POCT ORDERABLES - DEVICE Final Result Performing Organization Address City/[facility] Co de Phone Number JOHAN LEON [address] [address] [facility] [place], [place] [address] * POCT glucose (01/17/2025 2:20 PM CDT) Glucose, POC 131 70 - 199 mg/dL POC Performer [id number] [facility] Blood 01/17/2025 2:20 PM CDT 01/17/2025 2:20 PM CDT Soy Peterson MD LAB POCT ORDERABLES - DEVICE Final Result Performing Organization Address [facility] Co de Phone Number JOHAN LEON [address] [address] [facility] [place], [place] [id number] * POCT glucose (01/17/2025 7:31 AM CDT) Glucose, POC 123 70 - 199 mg/dL POC Performer [id number] [facility] Blood 01/17/2025 7:31 AM CDT 01/17/2025 7:31 AM CDT Soy Peterson MD LAB POCT ORDERABLES - DEVICE Final Result Performing Organization Address City/[facility] Co de Phone Number JOHAN LEON [address] [address] [facility] [place] [address] * (ABNORMAL) eGFR (01/17/2025 5:37 AM CDT) [...] Charlton NP LAB BLOOD ORDERABLES Final Result [facility] [address] [address] [place] [address] * (ABNORMAL) Differential, auto (01/17/2025 5:37 AM CDT) Neutrophil abs 4.78 1.50 - 6.50 K/cumm Imm gran abs 0.26(H) 0.00 - 0.10 K/cumm [facility] Lymphocyte abs 0.76(L) 0.80 - 3.30 K/cumm [facility] Monocyte abs 0.48 0.20 - 0.80 K/cumm [facility] Eosinophil abs 0.00 0.00 - 0.50 K/cumm [facility] Basophil abs 0.02 0.00 - 0.10 K/cumm [facility] Neutrophil pct 75.9 % [facility] Comment: Interpretive Data Percent cell count reference ranges are not reported, since discordance with absolute values may lead to misinterpretation of CBC data. Current Interpretive Data was last revised on 2017. Imm gran pct 4.1 % [facility] Comment: Interpretive Data Percent cell count reference ranges are not reported, since discordance with absolute values may lead to misinterpretation of CBC data. Current Interpretive Data was last revised on 2017. Lymphocyte pct 12.1 % [facility] Comment: Interpretive Data Percent cell count reference ranges are not reported, since discordance with absolute values may lead to misinterpretation of CBC data. Current Interpretive Data was last revised on 2017. Monocyte pct 7.6 % [facility] Comment: Interpretive Data Percent cell count reference [...] revised on 2017. Basophil pct 0.3 % [facility] Comment: Interpretive Data Percent cell count reference ranges are not reported, since discordance with absolute values may lead to misinterpretation of CBC data. Current Interpretive Data was last revised on 2017. Blood 01/17/2025 5:37 AM CDT 01/17/2025 5:51 AM CDT Bessie Charlton NP LAB BLOOD ORDERABLES Final Result [facility] [address] [address] Department [place] [address] * (ABNORMAL) CBC with auto differential (01/17/2025 5:37 AM CDT) WBC 6.30 3.80 - 9.90 K/cumm Hgb 7.7(L) 11.9 - 15.5 g/dL [facility] Hct 26.4(L) 35.6 - 45.5 % [facility] Plt 181 150 - 400 K/cumm [facility] MPV 8.9(L) 9.1 - 12.3 fL [facility] RBC 2.65(L) 3.90 - 5.20 M/cumm [facility] MCV 99.6(H) 81.3 - 96.4 fL [facility] Comment:No apparent cause fo r delta. MCH 29.1 27.1 - 33.3 pg [facility] MCHC 29.2(L) 32.3 - 35.7 g/dL [facility] RDW CV 14.0 11.1 - 14.9 % [facility] RDW SD 50.5(H) 35.7 - 48.1 fL [facility] NRBC abs 0.04(H) 0.00 - 0.01 K/cumm [facility] Blood 01/17/2025 5:37 AM CDT 01/17/2025 5:51 AM CDT Bessie Charlton NP LAB BLOOD ORDERABLES Final Result [facility] [address] [address] Department [place] [address] * (ABNORMAL) Basic metabolic panel (01/17/2025 5:37 AM CDT) Sodium 139 135 - 145 mmol/L Potassium, pl 4.7 3.3 - 4.9 mmol/L [facility] Chloride 101 97 - 110 mmol/L [facility] CO2 23 22 - 32 mmol/L [facility] Anion gap 15 2 - 15 mmol/L [facility] BUN 61(H) 6 - 25 mg/dL [facility] Creatinine 5.33(H) 0.60 - 1.10 mg/dL [facility] Glucose 113 70 - 199 mg/dL [facility] Comment: Interpretive Data Fasting glucose >/= [...] Calcium 9.3 8.5 - 10.3 mg/dL [facility] Blood 01/17/2025 5:37 AM CDT 01/17/2025 5:52 AM CDT Bessie Charlton [employer] ATTENDANT LAB BLOOD ORDERABLES Final Result Performing Organization Address City/[facility]/ZIP Co de Phone Number JOHAN LEON [address] [address] [place] [address] * POCT glucose (01/16/2025 10:38 PM CDT) Glucose, POC 147 70 - 199 mg/dL POC Performer [id number] [facility] Blood 01/16/2025 10:3 8 PM CDT 01/16/2025 10:38 PM CDT us Soy Peterson MD LAB POCT ORDERABLES - DEVICE Final Result Performing Organization Address [facility] Co de Phone Number JOHAN LEON [address] [address] [facility] [place] [address] * POCT glucose (01/16/2025 4:58 PM CDT) Glucose, POC 137 70 - 199 mg/dL POC Performer [id number] [facility] Blood 01/16/2025 4:58 PM CDT 01/16/2025 4:58 PM CDT Soy Peterson MD LAB POCT ORDERABLES - DEVICE Final Result Performing Organization Address City/[facility] Co de Phone Number JOHAN LEON [address] [address] [facility] [place] [address] * POCT glucose (01/16/2025 11:08 AM CDT) Glucose, POC 149 70 - 199 mg/dL POC Performer [id number] [facility] Blood 01/16/2025 11:0 8 AM CDT 01/16/2025 11:08 AM CDT Soy Peterson MD LAB POCT ORDERABLES - DEVICE Final Result Performing Organization Address City/[facility] Co de Phone Number JOHAN LEON [address] [address] [place] [address] * POCT glucose (01/16/2025 6:59 AM CDT) Glucose, POC 141 70 - 199 mg/dL POC Performer [id number] [facility] Blood 01/16/2025 6:59 AM CDT 01/16/2025 6:59 AM CDT Soy Peterson MD LAB POCT ORDERABLES - DEVICE Final Result Performing Organization Address [facility] de Phone Number JOHAN LEON [address] [address] [place] [address] * (ABNORMAL) eGFR (01/16/2025 5:25 AM CDT) Pathologist [facility] eGFR 9(L) >=60 mL/min/1. 73 m2 Comment: [...] Charlton NP LAB BLOOD ORDERABLES Final Result [facility] [address] [address] Department [place] [address] * (ABNORMAL) Differential, auto (01/16/2025 5:25 AM CDT) Neutrophil abs 4.50 1.50 - 6.50 K/cumm Imm gran abs 0.12(H) 0.00 - 0.10 K/cumm [facility] Lymphocyte abs 0.65(L) 0.80 - 3.30 K/cumm [facility] Monocyte abs 0.47 0.20 - 0.80 K/cumm [facility] Eosinophil abs 0.00 0.00 - 0.50 K/cumm [facility] Basophil abs 0.01 0.00 - 0.10 K/cumm [facility] Neutrophil pct 78.2 % [facility] Comment: Interpretive Data Percent cell count reference ranges are not reported, since discordance with absolute values may lead to misinterpretation of CBC data. Current Interpretive Data was last revised on 2017. Imm gran pct 2.1 % [facility] Comment: Interpretive Data Percent cell count reference ranges are not reported, since discordance with absolute values may lead to misinterpretation of CBC data. Current Interpretive Data was last revised on 2017. Lymphocyte pct 11.3 % [facility] Comment: Interpretive Data Percent cell count reference ranges are not reported, since discordance with absolute values may lead to misinterpretation of CBC data. Current Interpretive Data was last revised on 2017. Monocyte pct 8.2 % [facility] Comment: Interpretive Data Percent cell count reference ranges are not reported, since discordance with absolute values may lead to misinterpretation of CBC data. Current Interpretive Data was last revised on 2017. Eosinophil pct 0.0 % [facility] Comment: Interpretive Data Percent cell count reference ranges are not reported, since discordance with absolute values may lead to misinterpretation of CBC data. Current Interpretive Data was last revised on 2017. Basophil pct 0.2 % [facility] Comment: Interpretive Data Percent cell count reference ranges are not reported, since discordance with absolute values may lead to misinterpretation of CBC data. Current Interpretive Data was last revised on 2017. Blood 01/16/2025 5:25 AM CDT 01/16/2025 6:06 AM CDT Bessie Charlton NP LAB BLOOD ORDERABLES Final Result [facility] [address] [address] Department [place] [address] * (ABNORMAL) CBC with auto differential (01/16/2025 5:25 AM CDT) WBC 5.75 3.80 - 9.90 K/cumm Hgb 7.6(L) 11.9 - 15.5 g/dL [facility] Hct 24.6(L) 35.6 - 45.5 % [facility] Plt 193 150 - 400 K/cumm [facility] MPV 9.1 9.1 - 12.3 fL [facility] RBC 2.61(L) 3.90 - 5.20 M/cumm [facility] MCV 94.3 81.3 - 96.4 fL [facility] MCH 29.1 27.1 - 33.3 pg [facility] MCHC 30.9(L) 32.3 - 35.7 g/dL [facility] RDW CV 14.0 11.1 - 14.9 % [facility] RDW SD 47.8 35.7 - 48.1 fL [facility] NRBC abs 0.03(H) 0.00 - 0.01 K/cumm [facility] Blood 01/16/2025 5:25 AM CDT 01/16/2025 6:06 AM CDT Bessie Charlton NP LAB BLOOD ORDERABLES Final Result JOHAN LEON [address] [address] Department [place] [address] * (ABNORMAL) Basic metabolic panel (01/16/2025 5:25 AM CDT) Sodium 138 135 - 145 mmol/L Potassium, pl 4.4 3.3 - 4.9 mmol/L [facility] Chloride 100 97 - 110 mmol/L [facility] CO2 24 22 - 32 mmol/L [facility] Anion gap 14 2 - 15 mmol/L [facility] BUN 53(H) 6 - 25 mg/dL [facility] Creatinine 4.91(H) 0.60 - 1.10 mg/dL [facility] Glucose 134 70 - 199 mg/dL [facility] Comment: Interpretive Data Fasting glucose >/= [...] 2022. Calcium 9.0 8.5 - 10.3 mg/dL [facility] Blood 01/16/2025 5:25 AM CDT 01/16/2025 6:06 AM CDT Bessie Charlton [employer] ATTENDANT LAB BLOOD ORDERABLES Final Result JOHAN LEON [address] Department [place] [address] * (ABNORMAL) POCT glucose (01/15/2025 8:46 PM CDT) Glucose, POC 201(H) 70 - 199 mg/dL POC Performer [id number] [facility] Blood 01/15/2025 8:46 PM CDT 01/15/2025 8:46 PM CDT Soy Peterson MD LAB POCT ORDERABLES - DEVICE Final Result JOHAN LEON [address] [address] Department [place] [address] * (ABNORMAL) Urinalysis reflex to microscopic and [...] tendency for uric acid stone formation. Source: [facility] [place] Current Interpretive Data was last revised on [...] to microscopic UA will be performed. [facility] Urine 01/15/2025 3:50 PM CDT 01/15/2025 3:50 PM CDT Bessie Charlton NP LAB MICROBIOLOGY - G ENERAL ORDERABLES Final Result JOHAN LEON [address] [address] Department [place] [address] * (ABNORMAL) Urinalysis, microscopic only (01/15/2025 3:50 PM CDT) WBC, ur >50(A) 0 - 5 /HPF RBC, ur 21-50(A) 0 - 2 /HPF [facility] Epithelial cells, squamous, ur 1-5 0 - 5 /HPF [facility] Bacteria, ur Trace(A) [facility] Culture Reflex Comment Reflex to urine culture will be performed. [facility] Urine 01/15/2025 3:50 PM CDT 01/15/2025 3:53 PM CDT [facility] LAB URINE ORDERABLES Final Result Performing Organization Address [facility]/ZIP Co de Phone Number JOHAN [address] [address] [place] [address] * (ABNORMAL) Urine culture Urine (01/15/2025 3:50 PM CDT) Report Final Report: Growth indicates contamination with mixed bacterial deena. Please submit a new specimen with special attention given to the collection process and to prompt transport to the laboratory. (.) Comment:Testing performed by : [facility], [address] [facility] [place] [address] Organism GROWTH INDICATES CONTAMINATION WITH MIXED DEENA. [facility] Urine 01/15/2025 3:50 PM CDT 01/15/2025 7:03 PM CDT Narrative [facility] - 01/16/2025 2:21 PM CDT Urine culture reflexed based upon urinalysis results. Testing performed by [facility] Microbiology Laboratory ([phone]) Bessie Charlton LAB MICROBIOLOGY - G ENERAL ORDERABLES Final Result Performing Organization Address City/[facility] Co de Phone Number JOHAN [address] [address] [place] [address] * Hepatitis panel, acute Blood (01/15/2025 3:30 PM CDT) Hep A IgM Nonreactive Nonreactive Comment: Interpretive Data: If Hep A IgM Ab is reported as Equivocal, a new sample should be drawn in two weeks for testing. Current interpretive data was last revised on 19. Hep B core IgM Nonreactive Nonreactive [facility] Comment: Interpretive Data If HepB Core IgM Ab is reported as Equivocal, a new sample should be drawn in two weeks for testing. Current interpretive data was last revised on 19. Hep C Ab Nonreactive Nonreactive [facility] Comment: Interpretive Data Nonreactive: Antibodies to [...] last revised on 2019. HepBsAg Nonreactive Nonreactive [facility] Blood 01/15/2025 3:30 PM CDT 01/15/2025 4:03 PM CDT Ajith Cruz MD LAB MICROBIOLOGY - GENERAL OR DERABLES Final Result [facility] [address] Department of Laboratories [place], [place] [id number] * IR Exchange Tunneled CVC (01/15/2025 12:37 [...] completed, removal can be scheduled by calling [facility] Interventional Radiology at [phone]. Procedure Note Hill Martínez MD - 01/15/2025 [...] completed, removal can be scheduled by calling [facility] Interventional Radiology at [phone]. IMPRESSION: Successful tunneled catheter placement. Electronically signed by: Hill Martínez M.D. Oswaldo Blanchard MD IMG IR PROCEDURES Final Resul t * POCT glucose (01/15/2025 11:04 AM CDT) Glucose, POC 149 70 - 199 mg/dL POC Performer [id number] [facility] Blood 01/15/2025 11:0 4 AM CDT 01/15/2025 11:04 AM CDT Soy Peterson MD LAB POCT ORDERABLES - DEVICE Final Result Performing Organization Address [facility] de Phone Number [facility] [address] [address] [place] [address] * aPTT (01/15/2025 7:50 AM [...] ORDERABLES Final Re sult Performing Organization Address [facility] Co de Phone Number [facility] [address] [address] [facility] [place] [address] * Protime-INR (01/15/2025 7:50 AM CDT) PT 10.9 9.7 - 13.0 sec INR 1.01 0.90 - 1.20 [facility] Comment: Interpretive data Oral anticoagulant therapeutic ranges: Venous thromboembolism prophylaxis or treatment: 2.0-3.0 CARDIOLOGY Standard range: 2.0-3.0 High-intensity range: 2.5-3.5 Refer to indication-specific guidelines for appropriate target ranges for prosthetic heart valve replacement. Current interpretive data was last revised on 2019. Blood 01/15/2025 7:50 AM CDT 01/15/2025 8:06 AM CDT Oswaldo Blanchard MD LAB BLOOD ORDERABLES Final Re sult JOHAN [address] [address] Department [address] [place], [place] [id number] * POCT glucose (01/15/2025 6:26 AM CDT) Glucose, POC 157 70 - 199 mg/dL POC Performer [id number] JOHAN Blood 01/15/2025 6:26 AM CDT 01/15/2025 6:26 AM CDT Ward Perez DO LAB POCT ORDERABLES - DEV ICE Final Result Performing Organization Address [facility] Co de Phone Number JOHAN LEON [address] [address] [place] [address] * (ABNORMAL) eGFR (01/15/2025 4:00 AM CDT) [...] Charlton NP LAB BLOOD ORDERABLES Final Result [facility] [address] [address] Department [place] [address] * (ABNORMAL) Differential, auto (01/15/2025 4:00 AM CDT) Neutrophil abs 4.87 1.50 - 6.50 K/cumm Imm gran abs 0.15(H) 0.00 - 0.10 K/cumm [facility] Lymphocyte abs 0.56(L) 0.80 - 3.30 K/cumm [facility] Monocyte abs 0.48 0.20 - 0.80 K/cumm [facility] Eosinophil abs 0.00 0.00 - 0.50 K/cumm [facility] Basophil abs 0.02 0.00 - 0.10 K/cumm [facility] Neutrophil pct 80.1 % [facility] Comment: Interpretive Data Percent cell count reference ranges are not reported, since discordance with absolute values may lead to misinterpretation of CBC data. Current Interpretive Data was last revised on 2017. Imm gran pct 2.5 % [facility] Comment: Interpretive Data Percent cell count reference ranges are not reported, since discordance with absolute values may lead to misinterpretation of CBC data. Current Interpretive Data was last revised on 2017. Lymphocyte pct 9.2 % [facility] Comment: Interpretive Data Percent cell count reference ranges are not reported, since discordance with absolute values may lead to misinterpretation of CBC data. Current Interpretive Data was last revised on 2017. Monocyte pct 7.9 % [facility] Comment: Interpretive Data Percent cell count reference ranges are not reported, since discordance with absolute values may lead to misinterpretation of CBC data. Current Interpretive Data was last revised on 2017. Eosinophil pct 0.0 % [facility] Comment: Interpretive Data Percent cell count reference ranges are not reported, since discordance with absolute values may lead to misinterpretation of CBC data. Current Interpretive Data was last revised on 2017. Basophil pct 0.3 % [facility] Comment: Interpretive Data Percent cell count reference ranges are not reported, since discordance with absolute values may lead to misinterpretation of CBC data. Current Interpretive Data was last revised on 2017. Blood 01/15/2025 4:00 AM CDT 01/15/2025 4:44 AM CDT Bessie Charlton NP LAB BLOOD ORDERABLES Final Result [facility] [address] [address] Department [place] [address] * (ABNORMAL) CBC with auto differential (01/15/2025 4:00 AM CDT) WBC 6.08 3.80 - 9.90 K/cumm Hgb 7.5(L) 11.9 - 15.5 g/dL [facility] Hct 24.1(L) 35.6 - 45.5 % [facility] Plt 201 150 - 400 K/cumm [facility] MPV 9.0(L) 9.1 - 12.3 fL [facility] RBC 2.58(L) 3.90 - 5.20 M/cumm [facility] MCV 93.4 81.3 - 96.4 fL [facility] MCH 29.1 27.1 - 33.3 pg [facility] MCHC 31.1(L) 32.3 - 35.7 g/dL [facility] RDW CV 13.8 11.1 - 14.9 % [facility] RDW SD 47.4 35.7 - 48.1 fL [facility] NRBC abs 0.00 0.00 - 0.01 K/cumm [facility] Blood 01/15/2025 4:00 AM CDT 01/15/2025 4:44 AM CDT Bessie Charlton NP LAB BLOOD ORDERABLES Final Result JOHAN LEON [address] [address] [place] [address] * (ABNORMAL) Basic metabolic panel (01/15/2025 4:00 AM CDT) Pathologist [facility] Sodium 136 135 - 145 mmol/L Potassium, pl 4.8 3.3 - 4.9 mmol/L [facility] Chloride 96(L) 97 - 110 mmol/L [facility] CO2 24 22 - 32 mmol/L [facility] Anion gap 16(H) 2 - 15 mmol/L [facility] BUN 79(H) 6 - 25 mg/dL [facility] Creatinine 6.95(H) 0.60 - 1.10 mg/dL [facility] Glucose 157 70 - 199 mg/dL [facility] Comment: Interpretive Data Fasting glucose >/= [...] 2022. Calcium 9.0 8.5 - 10.3 mg/dL [facility] Blood 01/15/2025 4:00 AM CDT 01/15/2025 4:44 AM CDT Bessie Mercedes Charlton NP LAB BLOOD ORDERABLES Final Result Performing Organization Address [facility]/ZIP Co de Phone Number JOHAN LEON [address] [address] [place] [address] * POCT glucose (01/14/2025 8:07 PM CDT) Glucose, POC 167 70 - 199 mg/dL POC Performer [id number] [facility] Blood 01/14/2025 8:07 PM CDT 01/14/2025 8:07 PM CDT Ward Perez [facility] POCT ORDERABLES - DEV ICE Final Result Performing Organization Address [facility]/ZIP Co de Phone Number JOHAN LEON [address] [address] [place] [address] * POCT glucose (01/14/2025 6:19 PM CDT) Glucose, POC 143 70 - 199 mg/dL POC Performer [id number] [facility] Blood 01/14/2025 6:19 PM CDT 01/14/2025 6:19 PM CDT [facility] POCT ORDERABLES - DEV ICE Final Result Performing Organization Address [facility] de Phone Number JOHAN LEON [address] [place] [address] * (ABNORMAL) eGFR (01/14/2025 1:14 PM CDT) [...] data was last reviewed 2021. Blood 01/14/2025 1:1 4 PM CDT 01/14/2025 1:16 PM CDT Bessie Charlton NP LAB BLOOD ORDERABLES Final Result [facility] [address] [address] Department [place] [address] * (ABNORMAL) Differential, auto (01/14/2025 1:14 PM CDT) Neutrophil abs 4.46 1.50 - 6.50 K/cumm Imm gran abs 0.15(H) 0.00 - 0.10 K/cumm [facility] Lymphocyte abs 0.65(L) 0.80 - 3.30 K/cumm [facility] Monocyte abs 0.47 0.20 - 0.80 K/cumm [facility] Eosinophil abs 0.00 0.00 - 0.50 K/cumm [facility] Basophil abs 0.01 0.00 - 0.10 K/cumm [facility] Neutrophil pct 77.7 % [facility] Comment: Interpretive Data Percent cell count reference ranges are not reported, since discordance with absolute values may lead to misinterpretation of CBC data. Current Interpretive Data was last revised on 2017. Imm gran pct 2.6 % [facility] Comment: Interpretive Data Percent cell count reference ranges are not reported, since discordance with absolute values may lead to misinterpretation of CBC data. Current Interpretive Data was last revised on 2017. Lymphocyte pct 11.3 % [facility] Comment: Interpretive Data Percent cell count reference ranges are not reported, since discordance with absolute values may lead to misinterpretation of CBC data. Current Interpretive Data was last revised on 2017. Monocyte pct 8.2 % [facility] Comment: Interpretive Data Percent cell count reference ranges are not reported, since discordance with absolute values may lead to misinterpretation of CBC data. Current Interpretive Data was last revised on 2017. Eosinophil pct 0.0 % [facility] Comment: Interpretive Data Percent cell count reference ranges are not reported, since discordance with absolute values may lead to misinterpretation of CBC data. Current Interpretive Data was last revised on 2017. Basophil pct 0.2 % [facility] Comment: Interpretive Data Percent cell count reference ranges are not reported, since discordance with absolute values may lead to misinterpretation of CBC data. Current Interpretive Data was last revised on 2017. Blood 01/14/2025 1:14 PM CDT 01/14/2025 1:17 PM CDT Bessie Charlton NP LAB BLOOD ORDERABLES Final Result [facility] [address] [address] Department [place] [address] * (ABNORMAL) CBC with auto differential (01/14/2025 1:14 PM CDT) WBC 5.74 3.80 - 9.90 K/cumm Hgb 7.9(L) 11.9 - 15.5 g/dL [facility] Hct 25.6(L) 35.6 - 45.5 % [facility] Plt 191 150 - 400 K/cumm [facility] MPV 8.5(L) 9.1 - 12.3 fL [facility] RBC 2.73(L) 3.90 - 5.20 M/cumm [facility] MCV 93.8 81.3 - 96.4 fL [facility] MCH 28.9 27.1 - 33.3 pg [facility] MCHC 30.9(L) 32.3 - 35.7 g/dL [facility] RDW CV 14.0 11.1 - 14.9 % [facility] RDW SD 48.2(H) 35.7 - 48.1 fL [facility] NRBC abs 0.00 0.00 - 0.01 K/cumm [facility] Blood 01/14/2025 1:14 PM CDT 01/14/2025 1:17 PM CDT Bessie Charlton NP LAB BLOOD ORDERABLES Final Result [facility] Department [place] [address] * (ABNORMAL) Comprehensive metabolic panel (01/14/2025 1:14 [...] BLOOD ORDERABLES Final Result Performing Organization Address City/[facility]/ZIP Co de Phone Number JOHAN LEON [address] [address] Department [place] [address] * Occult blood, fecal non neoplasm screening (08/02/2017 7:41 AM UI LEAD DEVELOPER) Occult blood, fecal Negative Negative [facility] (FAN) Collection date , feces [id number] [facility] ([facility]) Collection time 1, feces 739 [facility] ([facility]) Stool 08/02/2017 7:41 AM UI LEAD DEVELOPER 08/02/2017 7:44 AM UI LEAD DEVELOPER Pam Rivas MD LAB BODY FLUIDS AND STOOLS ORDER SARIKA Final Result JOHAN ACOSTA (FAN) 1 [facility] Department [place] [address] * MAMMOGRAPHY (01/11/2002) Mammogram Normal Historical Provider HEALTH MAINTENANCE Final Result * COLONOSCOPY (10/14/2001) Colonoscopy Unknown Historical Provider HEALTH MAINTENANCE Final Result from Last 3 Months or Most Recently Relevant to Health Maintenance Additional Health Concerns Infection Onset Date Last Indicated MDR gram neg/ESBL 11/02/2024 11/02/2024 Insurance [facility] [place] [id number] MEDICARE FORMERLY [facility] [employer] MEDICARE FORMERLY [facility] [address] [place] [address] [place] [address] Advance Directives For more information, please contact: [phone] Documents on File Type Date Recorded Patient Laundry Aide Expl anation ADVANCE DIRECTIVE 10/17/2024 1:12 PM [...] Agents on File Name Relationship Healthcare Agent [facility] Friend Health Care Agent Care Teams Corrosion Engineer Relationship Specialty Start Date End Date No, Physician PCP - General 07/27/22 [place] [address] [place] [address] Consulting Physician Urology 01/20/25 Sophia Thomas MD [address] [place] [address] Consulting Physician Family Medicine 01/20/25
--- OUTSIDE RECORDS SUMMARY | 2025-04-06 11:08 | XMS_ITS | Patient Health Record ---
Author Organization [facility] As [employer] [facility] Address [address] [place] [address] Care Team Providers Care Clinical Education Academic Coordinator Name Role Phone Juan Madsen Unavailable [phone] Reason For Referral No Information Plan Of Treatment No Information Insurance Providers Payer Name Payer Address Payer Phone Subscriber Number Group Number Insured Name Patient Relationship to Insured Coverage Start Date Coverage End Date [employer] [address] [place] [phone] [id number] FADIA ARROYO Self - patient is the insured
--- NOTE | 2025-04-06 11:24 | P.CONNP_ITS ---
Assessment and Plan Assessment and plan (1) End stage renal disease: Code(s): N18.6 - End stage renal disease Status: Chronic Assessment and Plan: * last HD treatment on Wednesday. * normal schedule is Mondays, Wednesdays, and Fridays * Potassium is little high. Will do on a 2 K bath. * The patient is volume overloaded. Will dialyze today. (2) Anemia: Qualifiers: Anemia type: due to chronic kidney disease Chronic kidney disease stage: on chronic dialysis Qualified Code(s): N18.6 - End stage renal disease; D63.1 - Anemia in chronic kidney disease; Z99.2 - Dependence on renal dialysis Code(s): D64.9 - Anemia, unspecified Status: Acute Assessment and Plan: * Hemoglobin 9.2 today. This is better than it was last admission. * She had a normal TSAT in January. * PRBC transfusion per protocol * dose with Epogen today * follow trend of H/H (3) HTN (hypertension): Qualifiers: Hypertension type: unspecified Qualified Code(s): I10 - Essential (primary) hypertension Code(s): I10 - Essential (primary) hypertension Status: Chronic Assessment and Plan: * Systolic in the 140s * follow trend of hemodynanics (4) Chronic respiratory failure with hypoxia: Code(s): J96.11 - Chronic respiratory failure with hypoxia Status: Chronic Assessment and Plan: * multifactorial: * COPD * SHELDON * OHS * CHF * on chornic supplemental oxygen * [facility] * continue supportive therapy (5) Left renal mass: Code(s): N28.89 - Other specified disorders of kidney and ureter Status: Chronic Assessment and Plan: * follows with Urology as an outpatient * per review of outside records, deemed to be a poor surgical candidate History of Present Illness Reason for Consult Consult date: 04/06/25 Chief Complaint Chief complaint: SOB History of Present Illness Narrative: Cathy is a very pleasant 65-year-old lady who has multiple medical problems including end-stage renal disease on dialysis 3 times a week, rheumatoid arthritis, fibromyalgia, sleep apnea, hypertension, COPD, chronic respiratory failure, sleep apnea, high body mass index hypoventilation syndrome, congestive heart failure, paroxysmal atrial fibrillation, diastolic dysfunction, bipolar 1 disorder, anxiety and depression, left renal mass, anemia, renal osteodystrophy, and seizure disorder. The patient has end-stage renal disease. This is likely due to hypertension and vascular disease. Possibly chronic pre renal azotemia from her heart disease. The patient goes to dialysis Wednesdays for and Fridays The patient went to dialysis on Wednesday but she had diarrhea on Wednesday. so she did not get a treatment. Today the patient has developed shortness of breath so did not go to dialysis as scheduled but came to the ER instead. She said I knew my CO2 is elevated because I feel like I did when it was high in the past she was evaluated in the emergency room. Her chest x-ray shows fluid. Her BNP is elevated. She has some swelling. Her blood gases showed a high pCO2 as suspected by the patient. The patient has not had a fever. No cough. The patient had a UTI recently and was placed on antibiotics. Patient has hypertension and her blood pressure has been doing pretty well. Review of Systems 2 Constitutional: Constitutional: Reports no additional constitutional complaints Eyes: Eyes: Reports no additional eye complaints ENT: Reports system reviewed and no additional complaints, except as documented Cardiovascular: Cardiovascular: Reports no additional cardiovascular complaints Respiratory: Respiratory: Reports no additional respiratory complaints Gastrointestinal: Gastrointestinal: Reports no additional gastrointestinal complaints Genitourinary: Genitourinary: Reports no additional female genitourinary complaints Musculoskeletal: Musculoskeletal: Reports no additional musculoskeletal complaints Integumentary/Breasts: Skin/Breast: Reports system reviewed and no additional complaints, except as docu Neurologic: Reports system reviewed and no additional complaints, except as documented Psychiatric: Psychiatric: Reports no additional psychiatric complaints Endocrine: Endocrine: Reports no additional endocrine complaints [facility] Past Medical History Medical History Seizure disorder Immobility Rheumatoid arthritis PAF (paroxysmal atrial fibrillation) Fibromyalgia Gout Obesity hypoventilation syndrome SHELDON (obstructive sleep apnea) Chronic respiratory failure with hypoxia Atrial fibrillation COPD (chronic obstructive pulmonary disease) Diastolic heart failure Bipolar 1 disorder Anxiety and depression Left renal mass suspected malignancy Nephrolithiasis End stage renal disease ESRD on dialysis CHF (congestive heart failure) HTN (hypertension) COPD (chronic obstructive pulmonary disease) Surgical History Surgical History History of cystoscopy S/P ureteral reimplantation History of hysterectomy S/P hemodialysis catheter insertion Family History Family History Father Lung cancer Grandparent Colon cancer Mother Congestive heart failure Social History Social History Smoking packs per day: 0.5 Smoking cigarettes per day: 10.0 Years smoked: 10 Smoking pack-years: 5.00 Smoking status: Former smoker Tobacco type: cigarettes and pipe Second hand tobacco smoke exposure: Yes Alcohol intake: never Substance use: never Substance use type: marijuana Last use: 06/13/21 Do You Feel Safe in your Home?: Yes Lack of Transportation: No Lack of Food: Never True Current Housing: I Have Housing Concerned About Future Housing: No Difficulty Paying Gas/Electric Bills: No Difficulty Paying for Meds: No Currently Unemployed: No Education: High School Diploma/GED Difficulty w/ Childcare or Family Care: No Gender identity (if verbalized by the patient): Female Sexual Orientation (if Verbalized by the Patient): Straight or Heterosexual Spiritual care concerns: No Meds Home Medications and Allergies Home Medications ?Medication ?Instructions ?Recorded ?Confirmed ?Type amlodipine 5 mg tablet (Norvasc) 10 mg PO QHS 06/30/21 01/13/25 History atorvastatin 40 mg tablet 40 mg PO QHS 06/30/21 01/13/25 History ferrous sulfate 325 mg (65 mg 325 mg PO DAILY 06/30/21 01/13/25 History iron) tablet fluticasone propionate 50 1 spray intranasal DAILY 06/30/21 01/13/25 History mcg/actuation nasal spray,suspension hydrocodone 5 mg-acetaminophen 325 1 tablet PO Q8H PRN Pain Rated 4-6 06/30/21 01/13/25 History mg tablet levetiracetam 500 mg tablet 500 mg PO BID 06/30/21 01/13/25 History acetaminophen 325 mg tablet 650 mg PO Q6H PRN fever or pain 01/13/25 01/13/25 History (Aminofen) albuterol 90 mcg-budesonide 80 2 inh inhalation 6XD PRN shortness 01/13/25 01/13/25 History mcg/actuation HFA aerosol inhaler of breath (Airsupra) alprazolam 0.5 mg tablet 0.5 mg PO BID PRN anxiety 01/13/25 01/13/25 History baclofen 5 mg tablet 5 mg PO Q12H 01/13/25 01/13/25 History cholecalciferol (vitamin D3) 50 2,000 unit PO DAILY 01/13/25 01/13/25 History mcg (2,000 unit) capsule diclofenac sodium 1 % topical gel 1 ea topical Q6H PRN pain 01/13/25 01/13/25 History (Arthritis Pain (diclofenac)) diltiazem HCl 90 mg tablet 90 mg PO DAILY 01/13/25 01/13/25 History diphenhydramine HCl 25 mg capsule 50 mg PO Q8H PRN allergy symptoms 01/13/25 01/13/25 History (Aler-Cap) ergocalciferol (vitamin D2) 1,250 1,250 mcg PO WEEKLY 01/13/25 01/13/25 History mcg (50,000 unit) capsule escitalopram oxalate 10 mg tablet 10 mg PO DAILY 01/13/25 01/13/25 History folic acid 1 mg tablet 5 mg PO DAILY 01/13/25 01/13/25 History furosemide 40 mg tablet 40 mg PO DAILY 01/13/25 01/13/25 History hydroxyzine HCl 25 mg tablet 25 mg PO TID 01/13/25 01/13/25 History ipratropium 0.5 mg-albuterol 3 mg 3 ml inhalation Q2H PRN shortness 01/13/25 01/13/25 History (2.5 mg base)/3 mL nebulization of breath soln lactulose 10 gram/15 mL oral 30 g PO DAILY 01/13/25 01/13/25 History solution (Enulose) Allergies Allergy/AdvReac Type Severity Reaction Status Date / Time Penicillins Allergy Unknown Verified 06/03/22 11:30 Vital Signs Vital Signs - 24 hr 04/06/25 09:14 04/06/25 09:22 04/06/25 10:15 Pulse Rate 85 81 Respiratory Rate 15 21 H Blood Pressure 148/61 H Pulse Oximetry 97 95 Oxygen Delivery Nasal Cannula Nasal Cannula Oxygen Flow Rate 4 4 04/06/25 10:25 Pulse Rate Respiratory Rate 22 H Blood Pressure Pulse Oximetry Oxygen Delivery BiPAP Oxygen Flow Rate Exam 2 Narrative: Exam Narrative: Well developed well-nourished female in no acute distress Skin is warm and dry without rash Head normocephalic atraumatic Eyes normal sclerae and conjunctivae Mouth normal lips teeth and gums Neck no nodes no thyromegaly no carotid bruits Axillae no nodes Back no CVA tenderness Lungs symmetric and coarse bilaterally to auscultation Heart regular rate and rhythm without rub or gallop Abdomen bowel sounds positive soft nontender, no HSM, masses, or bruits. Extremities no cyanosis, clubbing, and 1 to 2+ edema Pulses 2+ equal in radial arteries Psychological not anxious or depressed Neuro alert and oriented x3 motor 5/5 cranial nerves 2-12 intact reflexes 2+ and equal in the biceps and patellar tendons cerebellar normal rapid alternating movements Results Lab Results 04/06/25 09:51 04/06/25 09:51 Lab results: Most recent lab results ABG pH 7.119 (7.350-7.450) L* 04/06/25 09:54 ABG pCO2 96.8 mmHg (35.0-45.0) H* 04/06/25 09:54 ABG pO2 100.6 mmHg (80.0-100.0) H 04/06/25 09:54 ABG HCO3 30.7 mEq/l (22.0-26.0) H 04/06/25 09:54 ABG O2 Saturation 94.9 % (95.0-100.0) L 04/06/25 09:54 Calcium 9.2 mg/dL (8.4-10.2) 04/06/25 09:51 Magnesium 2.2 mg/dL (1.6-2.3) 04/06/25 09:51
[2025-04-06 11:32] LABS: Add Urine Microscopic? YES; Appearance Urine Turbid (Clear); Glucose Urine UA Negative (Negative); Leukocyte Esterase Ur 3+ LEU/UL (Negative); Need Manual Microscopic Reviewed; Nitrate Urine Negative (Negative); Specific Grav Ur 1.016 (1.001-1.035)
[2025-04-06] MEDS: HEPARIN SOD/D5W 100 UNITS/ML 25,000 UNITS/250 ML BAG 15 UNITS IV CONT (11:41)
[2025-04-06 12:21] LABS: Alveolar/Arterial O2 Gradient 40.1 mmHg; Fractional Inspired Oxygen 28 %; HCO3 ABG 28.7 mEq/l (22.0-26.0); Oxygen Content ABG 11.7 %vol (16.0-22.0); Oxygen Saturation ABG 91.5 % (95.0-100.0); PCO2 ABG 71.8 mmHg (35.0-45.0); PO2 ABG 74.8 mmHg (80.0-100.0); PO2 FiO2 Ratio Arterial Blood 2.67 %; Site Drawn RIGHT RADIAL
[2025-04-06 12:22] LABS: Modified Allen's Test Pass; Non-Invasive Expiratory Pressure 8 CMH2O; Non-Invasive Inspiratory Pressure 20 CMH2O; Non-Invasive Vent Rate 24 /MIN
[2025-04-06 12:27] LABS: Influenza A QL RT-PCR Negative (Negative); Influenza B QL RT-PCR Negative (Negative); RSV RNA, RT-PCR Negative (Negative); SARS-CoV-2 RNA PCR Negative (Negative)
[2025-04-06 14:41] LABS: Troponin I 0.021 ng/mL (0.000-0.034)
--- NOTE | 2025-04-06 15:48 | PC.NURSE ---
called report to IMU- they stated that rn was busy and that they would call me back
--- NOTE | 2025-04-06 15:59 | PC.NURSE ---
called report to [facility] spoke to Ariane WYATT. states that multiple attempts were made to contact the patients
[2025-04-06 16:23] LABS: Hepatitis B Surface Antigen Negative (Negative)
--- NOTE | 2025-04-06 16:35 | P.HP_ITS ---
H&P: HPI History of Present Illness Date/Time: 04/06/25 16:35 Chief Complaint: Shortness of breath Narrative: 65-year-old patient with past medical history of end-stage renal disease on dialysis Fridays, presents to the hospital with increased shortness of breath. She states that she is supposed to wear BiPAP at night however the long-term she is at has not been placing her on it. Patient seen after dialysis. She states that she feels little bit better. She denies nausea or vomiting. blood work shows hemoglobin 9.2 which is baseline, D-dimer 1.12, ABG 7.219, pCO2 71, PO2 74, potassium of 5.3, chloride of 96, carbon dioxide 31, BUN is 73, creatinine of 5.93, GFR 7, glucose 183, proBNP 5050 UA is dark yellow turbid 3+ leukocyte esterase over 100 RBCs over 100 wbc's and many squamous cells 4+ bacteria. Chest x-ray shows pulmonary edema. EKG shows sinus rhythm with nonspecific ST and T-wave abnormalities. Nephrology has been consulted plan for dialysis today due to fluid overload and hyperkalemia. Review of Systems Review of Systems: 12 systems were reviewed and are negativ e except for as per HPI. [facility] Past Medical History Medical History (Updated 04/06/25 @ 17:56 by Yogi Mascorro MD) Seizure disorder Immobility Rheumatoid arthritis PAF (paroxysmal atrial fibrillation) Fibromyalgia Gout Obesity hypoventilation syndrome SHELDON (obstructive sleep apnea) Chronic respiratory failure with hypoxia Atrial fibrillation COPD (chronic obstructive pulmonary disease) Diastolic heart failure Bipolar 1 disorder Anxiety and depression Left renal mass suspected malignancy Nephrolithiasis End stage renal disease ESRD on dialysis CHF (congestive heart failure) HTN (hypertension) COPD (chronic obstructive pulmonary disease) Surgical History Surgical History History of cystoscopy S/P ureteral reimplantation History of hysterectomy S/P hemodialysis catheter insertion Family History Family History Father Lung cancer Grandparent Colon cancer Mother Congestive heart failure Social History Social History Smoking packs per day: 0.5 Smoking cigarettes per day: 10.0 Years smoked: 10 Smoking pack-years: 5.00 Smoking status: Former smoker Tobacco type: cigarettes and pipe Second hand tobacco smoke exposure: Yes Alcohol intake: never Substance use: never Substance use type: marijuana Last use: 06/13/21 Do You Feel Safe in your Home?: Yes Lack of Transportation: No Lack of Food: Never True Current Housing: I Have Housing Concerned About Future Housing: No Difficulty Paying Gas/Electric Bills: No Difficulty Paying for Meds: No Currently Unemployed: No Education: High School Diploma/GED Difficulty w/ Childcare or Family Care: No Gender identity (if verbalized by the patient): Female Sexual Orientation (if Verbalized by the Patient): Straight or Heterosexual Spiritual care concerns: No Meds Home Medications and Allergies Home Medications ?Medication ?Instructions ?Recorded ?Confirmed ?Type atorvastatin 40 mg tablet 40 mg PO QHS 06/30/21 04/06/25 History ferrous sulfate 325 mg (65 mg 325 mg PO DAILY 06/30/21 04/06/25 History iron) tablet fluticasone propionate 50 1 spray intranasal DAILY 06/30/21 04/06/25 History mcg/actuation nasal spray,suspension hydrocodone 5 mg-acetaminophen 325 1 tablet PO Q8H PRN Pain Rated 4-6 06/30/21 04/06/25 History mg tablet levetiracetam 500 mg tablet 500 mg PO BID 06/30/21 04/06/25 History acetaminophen 325 mg tablet 650 mg PO Q6H PRN fever or pain 01/13/25 04/06/25 History (Aminofen) albuterol 90 mcg-budesonide 80 2 inh inhalation .q6hr PRN 01/13/25 04/06/25 History mcg/actuation HFA aerosol inhaler shortness of breath (Airsupra) alprazolam 0.5 mg tablet 0.5 mg PO BID PRN anxiety 01/13/25 01/13/25 History baclofen 5 mg tablet 5 mg PO BID 01/13/25 04/06/25 History cholecalciferol (vitamin D3) 50 2,000 unit PO DAILY 01/13/25 04/06/25 History mcg (2,000 unit) capsule diclofenac sodium 1 % topical gel 1 ea topical Q6H PRN pain 01/13/25 04/06/25 History (Arthritis Pain (diclofenac)) diltiazem HCl 90 mg tablet 90 mg PO DAILY 01/13/25 01/13/25 History diphenhydramine HCl 25 mg capsule 50 mg PO Q8H PRN allergy symptoms 01/13/25 01/13/25 History (Aler-Cap) ergocalciferol (vitamin D2) 1,250 1,250 mcg PO WEEKLY 01/13/25 04/06/25 History mcg (50,000 unit) capsule escitalopram oxalate 10 mg tablet 20 mg PO DAILY 01/13/25 04/06/25 History folic acid 1 mg tablet 5 mg PO DAILY 01/13/25 01/13/25 History furosemide 40 mg tablet 40 mg PO DAILY 01/13/25 01/13/25 History hydroxyzine HCl 25 mg tablet 25 mg PO TID 01/13/25 04/06/25 History ipratropium 0.5 mg-albuterol 3 mg 3 ml inhalation Q2H PRN shortness 01/13/25 04/06/25 History (2.5 mg base)/3 mL nebulization of breath soln lactulose 10 gram/15 mL oral 30 g PO DAILY 01/13/25 04/06/25 History solution (Enulose) gabapentin 100 mg capsule 100 mg PO BID 04/06/25 04/06/25 History insulin aspart U-100 100 unit/mL 1 sliding scale dose subcut 04/06/25 04/06/25 History (3 mL) subcutaneous pen (Novolog .before meals FlexPen U-100 Insulin aspart) midodrine 5 mg tablet 5 mg PO .COMPLEX 04/06/25 04/06/25 History montelukast 10 mg tablet 10 mg PO DAILY 04/06/25 04/06/25 History nystatin 100,000 unit/gram topical 1 applic topical BID 04/06/25 04/06/25 History powder ondansetron HCl 4 mg tablet 4 mg PO Q8H PRN nausea and vomiting 04/06/25 04/06/25 History oxcarbazepine 150 mg tablet 150 mg PO BID 04/06/25 04/06/25 History quetiapine 25 mg tablet 25 mg PO HS 04/06/25 04/06/25 History trazodone 50 mg tablet 50 mg PO HS 04/06/25 04/06/25 History Allergies Allergy/AdvReac Type Severity Reaction Status Date / Time Penicillins Allergy Unknown Verified 06/03/22 11:30 Vital Signs Vital Signs - 24 hr 04/06/25 09:14 04/06/25 09:22 04/06/25 10:15 Temperature Pulse Rate 85 81 Respiratory Rate 15 21 H Blood Pressure 148/61 H Pulse Oximetry 97 95 Oxygen Delivery Nasal Cannula Nasal Cannula Oxygen Flow Rate 4 4 Fraction of Inspired Oxygen 04/06/25 10:25 04/06/25 10:50 04/06/25 11:20 Temperature Pulse Rate 79 79 79 Respiratory Rate 23 H 23 H 24 H Blood Pressure Pulse Oximetry 98 Oxygen Delivery BiPAP BiPAP Oxygen Flow Rate Fraction of Inspired Oxygen 04/06/25 12:58 04/06/25 13:03 04/06/25 13:04 Temperature Pulse Rate 68 70 68 Respiratory Rate 24 H 24 H 24 H Blood Pressure Pulse Oximetry 100 Oxygen Delivery BiPAP Oxygen Flow Rate Fraction of Inspired Oxygen 04/06/25 15:30 04/06/25 15:42 04/06/25 15:42 Temperature 98.4 F Pulse Rate 72 66 Respiratory Rate 24 H Blood Pressure 147/60 H 140/58 L Pulse Oximetry 100 Oxygen Delivery Oxygen Flow Rate Fraction of Inspired Oxygen 04/06/25 16:00 04/06/25 16:15 Temperature Pulse Rate 78 81 Respiratory Rate Blood Pressure 118/44 L 106/63 Pulse Oximetry Oxygen Delivery Oxygen Flow Rate Fraction of Inspired Oxygen Exam Narrative: General: Chronically ill HEENT: normocephalic, atraumatic. Mucous membranes moist. EOMI, PERRLA, bilateral sclera anicteric, no conjunctival injection. Neck supple without JVD, lymphadenopathy, or bruit. Respiratory: clear to ascultation bilaterally. No rales/rhonic/wheezes. Cardiovascular: Regular rate and rhythm, normal S1-S2 upon ascultation. No murmurs, rubs, or clicks. PMI is nondisplaced, capillary refill less than 3 second. Abdomen: Obese edematous Soft, round, no pulsatile masses, nondistended and nontender. No rebound, no guarding. No CVA tenderness, no hepatosplenomegaly. Bowel sounds present to all four quadrants. No high pitch or tinkling sounds, resonant to percussion. Fissure and abdominal fold Extremities: No cyanosis, clubbing, or edema present. Pulses are palpable 2/2. Active ROM to all four extremities. Neuro: Alert and orientated x 4. PERRLA. Cranial nerves 2-12 intact without focal deficit. Skin: Warm, dry, and intact, without rash, erythema, or lesion. Psych: pleasant, cooperative, normal speech, normal affect, no hallucinations, no dysarthia H&P: Results Labs Labs: Short CBC 04/06/25 Range/Units 09:51 WBC 8.7 (4.5-10.0) K/mm3 Hgb 9.2 L (12.0-15.0) g/dL Hct 31.8 L (37.0-47.0) % Plt Count 160 (150-375) k/mm3 BMP 04/06/25 09:51 Sodium 139 Potassium 5.3 H Chloride 96 L Carbon Dioxide 31 H BUN 73 H Creatinine 5.93 H Glucose 183 H Calcium 9.2 Cardiac Enzymes 04/06/25 04/06/25 Range/Units 09:51 14:01 Troponin I 0.022 0.021 (0.000-0.034) ng/mL Liver Function 04/06/25 Range/Units 09:51 Total Bilirubin 0.3 (0.2-1.3) mg/dL AST 19 (14-36) U/L ALT 11 (6-35) U/L Alkaline Phosphatase 127 H (38-126) U/L Albumin 3.9 (3.5-5.1) g/dL Urine 04/06/25 Range/Units 10:50 Urine Color Dark yellow (Yellow) Urine Appearance Turbid H (Clear) Urine pH 6.5 (5.0-9.0) Ur Specific [place] 1.016 (1.001-1.035) Urine Protein 4+ H (Negative) mg/dL Urine Glucose (UA) Negative (Negative) mg/dL Assessment and Plan Assessment and plan (1) Pulmonary edema: Code(s): J81.1 - Chronic pulmonary edema Status: Acute Assessment and Plan: Urgent dialysis BiPAP Lasix If a.m. ABG is improved then patient may have a diet (2) Hyperkalemia: Code(s): E87.5 - Hyperkalemia Status: Acute Assessment and Plan: Dialysis today Romainix BMP in the morning (3) End stage renal disease: Code(s): N18.6 - End stage renal disease Status: Chronic Assessment and Plan: HD dialysis on Wednesday Nephrology consulted Plan for emergent dialysis today due to pulmonary edema and hyperkalemia (4) Acute hypercapnic respiratory failure: Code(s): J96.02 - Acute respiratory failure with hypercapnia Status: Acute Assessment and Plan: BiPAP Urgent dialysis DuoNeb q.6 ABG in a.m. (5) Anemia: Qualifiers: Anemia type: due to chronic kidney disease Chronic kidney disease stage: on chronic dialysis Qualified Code(s): N18.6 - End stage renal disease; D63.1 - Anemia in chronic kidney disease; Z99.2 - Dependence on renal dialysis Code(s): D64.9 - Anemia, unspecified Status: Acute Assessment and Plan: Erythropoietin No need for transfusion at this time Transfuse for hemoglobin less than 7 or symptomatic (6) HTN (hypertension): Qualifiers: Hypertension type: unspecified Qualified Code(s): I10 - Essential (primary) hypertension Code(s): I10 - Essential (primary) hypertension Status: Chronic Assessment and Plan: Managed by dialysis (7) CHF (congestive heart failure): Qualifiers: Heart failure chronicity: unspecified Heart failure type: unspecified Qualified Code(s): I50.9 - Heart failure, unspecified Code(s): I50.9 - Heart failure, unspecified Status: Acute Assessment and Plan: IV Lasix b.i.lynn. Harry catheter for aggressive diuresis (8) COPD (chronic obstructive pulmonary disease): Qualifiers: COPD type: unspecified COPD Qualified Code(s): J44.9 - Chronic obstructive pulmonary disease, unspecified Code(s): J44.9 - Chronic obstructive pulmonary disease, unspecified Status: Acute Assessment and Plan: Lulu (9) Seizures: Code(s): R56.9 - Unspecified convulsions Status: Acute Assessment and Plan: Continue Keppra (10) Bipolar 1 disorder: Code(s): F31.9 - Bipolar disorder, unspecified Status: Acute Assessment and Plan: Continue Seroquel Plan Patient states that her does not take good care of her at home however she also is is the call light to get staff to come into her room to change the channel for her. Quality VTE Prophylaxis VTE prophylaxis: mechanical ordered Hospitalist MIPS Advance Care Plan I have confirmed that the patient's Advanced Care Plan is present, code status is documented, or surrogate decision maker is listed in patient medical record.: Yes Medication Reconciliation I have utilized all available resources to obtain, update and review the patients current medications (includes all prescriptions, OTC, herbals, cannabis, and nutritional supplements).: Yes
[2025-04-06] MEDS: EPOETIN ALFA-EPBX 10,000 UNITS/ML VIAL 10000 UNITS IV PUSH (17:18)
--- NOTE | 2025-04-06 19:35 | ADMGEN ---
This patient, Cathy Greene, was taken from ED to dialysis at 1524. Patient/family oriented to hospital policies and general routines including ID bracelet, bed and alarms, visiting hours, pain management, procedures, bathroom and other care routines, personal items, smoking policy, room service/diet, and visiting hours. Information on how to activate the Rapid Response Team has been discussed. Patient/Family are encouraged to report perceived risks to care and to ask questions if they do not understand what they are told or what they should do.
[2025-04-06 20:30] LABS: Partial Thromboplastin Time 48.6 Seconds (22.3-36.8)
[2025-04-06 20:36] LABS: Troponin I 0.022 ng/mL (0.000-0.034)
--- NOTE | 2025-04-06 20:47 | ADMGEN ---
This patient, Cathy Greene, was admitted to IMU Room 203-01 from dialysis on 04/06/25 at 1958. Patient/family oriented to hospital policies and general routines including ID bracelet, bed and alarms, visiting hours, pain management, procedures, bathroom and other care routines, personal items, smoking policy, room service/diet, and visiting hours. Information on how to activate the Rapid Response Team has been discussed. Patient/Family are encouraged to report perceived risks to care and to ask questions if they do not understand what they are told or what they should do.
[2025-04-06] MEDS: FUROSEMIDE INJ 40 MG/4 ML VIAL IV PUSH (22:28)
[2025-04-06] MEDS: ATORVASTATIN 40 MG TABLET PO (22:31)
[2025-04-06] MEDS: HYDROcodone/acetaminophen (*CRX) 5-325 MG TABLET 1 TAB PO (22:47)
[2025-04-07] VITALS (44 sets, daily range): BP systolic 73–152; BP diastolic 32–91; PULSE 64–88; RESP 16–25; TEMP 36.1–37.1; O2SAT 94–100
[2025-04-07] MEDS: IPRATROPIUM 0.5 MG/ALBUTEROL SULFATE 2.5 MG AMPUL.NEB 3 ML INHALATION ×3 (02:02→21:12)
[2025-04-07] MEDS: CHLORHEXIDINE GLUCONATE 4% SOL 120 ML BTL 1 APPLIC TOPICAL (03:12)
[2025-04-07 04:28] LABS: Hematocrit 24.8 % (37.0-47.0); Hemoglobin 7.4 g/dL (12.0-15.0); Immature Granulocyte Percent A 0.5 % (0-0.5); Lymphocytes Absolute Auto 1.01 K/mm3 (0.9-3.2); Mean Corpuscular HGB Conc 29.8 g/dl (32-36); Mean Corpuscular Hemoglobin 28.7 pg (26-34); Mean Corpuscular Volume 96.1 fl (80-100); Nucleated Red Blood Cells Absolute Auto 0.000 K/mm3 (0.0-0.012); Nucleated Red Blood Cells Perc 0.0 % (0.0-0.2); Platelet Count Result 130 k/mm3 (150-375); Red Blood Count 2.58 M/mm3 (4.2-5.4); White Blood Count 5.8 K/mm3 (4.5-10.0)
[2025-04-07] MEDS: HEPARIN SOD/D5W 100 UNITS/ML 25,000 UNITS/250 ML BAG 19 UNITS IV CONT ×2 (04:36→17:19)
[2025-04-07 04:41] LABS: Albumin Level 3.4 g/dL (3.5-5.1); Anion Gap 6 mmol/L (4-12); Blood Urea Nitrogen 34 mg/dL (7-17); Calcium 8.6 mg/dL (8.4-10.2); Carbon Dioxide 32 mmol/L (22-30); Chloride 95 mmol/L (98-107); Estimated CRCL calculation 23 ml/min; Estimated Glomerular Filt Rate 13; Glucose 130 mg/dL (65-110); Potassium 4.2 mmol/L (3.4-5.0); Sodium 133 mmol/L (137-145)
[2025-04-07 05:18] LABS: Partial Thromboplastin Time 80.0 Seconds (22.3-36.8)
[2025-04-07 05:18] LABS: Alveolar/Arterial O2 Gradient 39.2 mmHg; Fractional Inspired Oxygen 24 %; HCO3 ABG 31.6 mEq/l (22.0-26.0); Oxygen Content ABG 12.3 %vol (16.0-22.0); Oxygen Saturation ABG 95.5 % (95.0-100.0); PCO2 ABG 47.3 mmHg (35.0-45.0); PO2 ABG 75.6 mmHg (80.0-100.0); PO2 FiO2 Ratio Arterial Blood 3.15 %
[2025-04-07 05:19] LABS: Modified Allen's Test Pass; Site Drawn RIGHT RADIAL
[2025-04-07 05:20] LABS: Non-Invasive Expiratory Pressure 8 CMH2O; Non-Invasive Inspiratory Pressure 20 CMH2O; Non-Invasive Vent Rate 24 /MIN
[2025-04-07 09:00] LABS: MRSA (PCR) DETECTED (NOT DETECTE)
[2025-04-07] MEDS: MIDODRINE HCL 2.5 MG TABLET 5 MG PO (09:09)
[2025-04-07] MEDS: DOCUSATE SODIUM 100 MG CAPSULE PO (09:09)
[2025-04-07] MEDS: FERROUS SULFATE 325 MG TABLET DR BY MOUTH (09:09)
[2025-04-07] MEDS: GABAPENTIN 100 MG CAPSULE PO ×2 (09:09→17:07)
[2025-04-07] MEDS: FUROSEMIDE INJ 40 MG/4 ML VIAL IV PUSH ×2 (09:10→17:07)
[2025-04-07] MEDS: HYDROcodone/acetaminophen (*CRX) 5-325 MG TABLET 1 TAB PO ×3 (09:10→22:48)
[2025-04-07 10:48] LABS: Partial Thromboplastin Time 98.6 Seconds (22.3-36.8)
--- NOTE | 2025-04-07 11:12 | P.PNNP_ITS ---
Progress Note: A&P Assessment and Plan (1) End stage renal disease: Code(s): N18.6 - End stage renal disease Status: Chronic Assessment and Plan: * last HD treatment yesterday afternoon. * normal schedule is Mondays, Wednesdays, and Fridays * Will do another treatment today to continue to catch up on the fluid (2) Anemia: Qualifiers: Anemia type: due to chronic kidney disease Chronic kidney disease stage: on chronic dialysis Qualified Code(s): N18.6 - End stage renal disease; D63.1 - Anemia in chronic kidney disease; Z99.2 - Dependence on renal dialysis Code(s): D64.9 - Anemia, unspecified Status: Acute Assessment and Plan: * Hemoglobin dropped to 7.4. * Will repeat the iron levels. * Will give another dose of EPO. * Check stool guaiac (3) HTN (hypertension): Qualifiers: Hypertension type: unspecified Qualified Code(s): I10 - Essential (primary) hypertension Code(s): I10 - Essential (primary) hypertension Status: Chronic Assessment and Plan: * Systolic in the 140s * follow trend of hemodynanics (4) Chronic respiratory failure with hypoxia: Code(s): J96.11 - Chronic respiratory failure with hypoxia Status: Chronic Assessment and Plan: * multifactorial: * COPD * SHELDON * OHS * CHF * on chornic supplemental oxygen * She is on BiPAP at the halfway * continue supportive therapy (5) Left renal mass: Code(s): N28.89 - Other specified disorders of kidney and ureter Status: Chronic Assessment and Plan: * follows with Urology as an outpatient * per review of outside records, deemed to be a poor surgical candidate Subjective Date/time seen: 04/07/25 11:12 Interval history: Patient looks and feels better. Off the BiPAP. Breathing is much Review of Systems Cardiovascular: Cardiovascular: Reports no additional cardiovascular complaints Respiratory: Respiratory: Reports no additional respiratory complaints Gastrointestinal: Gastrointestinal: Reports no additional gastrointestinal complaints Genitourinary: Genitourinary: Reports no additional female genitourinary complaints Exam Narrative: WDWN in NAD skin no rash head ncat lungs clear cor reg no rub abd BS+ nontender and soft ext no edema. Objective Data Vital Signs Vital Signs: Vital Signs - 24 hr 04/06/25 11:20 04/06/25 12:58 04/06/25 13:03 Temperature Pulse Rate 79 68 70 Respiratory Rate 24 H 24 H 24 H Blood Pressure Pulse Oximetry 97 Oxygen Delivery BiPAP Oxygen Flow Rate Fraction of Inspired Oxygen 04/06/25 13:04 04/06/25 15:30 04/06/25 15:30 Temperature 98.4 F Pulse Rate 68 72 64 Respiratory Rate 24 H 24 H 24 H Blood Pressure 147/60 H Pulse Oximetry 100 100 93 Oxygen Delivery BiPAP BiPAP Oxygen Flow Rate Fraction of Inspired Oxygen 04/06/25 15:42 04/06/25 15:42 04/06/25 16:00 Temperature Pulse Rate 66 78 Respiratory Rate Blood Pressure 140/58 L 118/44 L Pulse Oximetry Oxygen Delivery Oxygen Flow Rate Fraction of Inspired Oxygen 24 04/06/25 16:15 04/06/25 16:30 04/06/25 16:45 Temperature Pulse Rate 81 68 66 Respiratory Rate Blood Pressure 106/63 138/60 123/58 L Pulse Oximetry Oxygen Delivery Oxygen Flow Rate Fraction of Inspired Oxygen 04/06/25 17:00 04/06/25 17:15 04/06/25 17:30 Temperature Pulse Rate 69 84 72 Respiratory Rate Blood Pressure 140/55 L 107/50 L 131/49 L Pulse Oximetry Oxygen Delivery Oxygen Flow Rate Fraction of Inspired Oxygen 04/06/25 17:45 04/06/25 18:00 04/06/25 18:15 Temperature Pulse Rate 71 70 67 Respiratory Rate Blood Pressure 125/62 111/48 L 89/41 L Pulse Oximetry Oxygen Delivery Oxygen Flow Rate Fraction of Inspired Oxygen 04/06/25 18:30 04/06/25 18:45 04/06/25 19:00 Temperature Pulse Rate 74 71 70 Respiratory Rate Blood Pressure 142/55 H 141/63 H 140/59 L Pulse Oximetry Oxygen Delivery Oxygen Flow Rate Fraction of Inspired Oxygen 04/06/25 19:15 04/06/25 19:20 04/06/25 19:59 Temperature 99 F Pulse Rate 67 66 69 Respiratory Rate 24 H Blood Pressure 123/56 L 139/54 L Pulse Oximetry 100 Oxygen Delivery Oxygen Flow Rate Fraction of Inspired Oxygen 04/06/25 20:00 04/06/25 20:15 04/06/25 20:15 Temperature 98.1 F Pulse Rate 78 78 78 Respiratory Rate 26 H 30 H 26 H Blood Pressure 128/91 H Pulse Oximetry 100 100 100 Oxygen Delivery BiPAP BiPAP Oxygen Flow Rate Fraction of Inspired Oxygen 24 04/06/25 20:18 04/06/25 20:26 04/06/25 22:00 Temperature Pulse Rate 78 74 72 Respiratory Rate 27 H 25 H Blood Pressure Pulse Oximetry Oxygen Delivery Oxygen Flow Rate Fraction of Inspired Oxygen 04/06/25 23:14 04/06/25 23:47 04/07/25 00:00 Temperature 98 F Pulse Rate 80 80 78 Respiratory Rate 26 H 26 H Blood Pressure 94/70 L Pulse Oximetry 100 100 Oxygen Delivery BiPAP Oxygen Flow Rate Fraction of Inspired Oxygen 24 04/07/25 02:00 04/07/25 02:01 04/07/25 02:02 Temperature Pulse Rate 80 82 82 Respiratory Rate 25 H 25 H Blood Pressure Pulse Oximetry 96 Oxygen Delivery BiPAP Oxygen Flow Rate Fraction of Inspired Oxygen 04/07/25 02:15 04/07/25 03:55 04/07/25 04:00 Temperature 98 F Pulse Rate 79 82 88 Respiratory Rate 23 H 24 H Blood Pressure 152/91 H Pulse Oximetry 100 Oxygen Delivery Oxygen Flow Rate Fraction of Inspired Oxygen 04/07/25 04:10 04/07/25 05:22 04/07/25 05:58 Temperature Pulse Rate 82 80 77 Respiratory Rate 24 H 24 H Blood Pressure Pulse Oximetry 100 95 Oxygen Delivery Nasal Cannula BiPAP Oxygen Flow Rate 3 Fraction of Inspired Oxygen 04/07/25 07:51 04/07/25 07:51 04/07/25 07:56 Temperature 96.9 F L Pulse Rate 84 75 Respiratory Rate 24 H 18 Blood Pressure 73/32 L 86/37 L Pulse Oximetry 94 Oxygen Delivery Oxygen Flow Rate Fraction of Inspired Oxygen 04/07/25 07:58 04/07/25 07:58 04/07/25 08:00 Temperature Pulse Rate 75 75 Respiratory Rate 18 Blood Pressure Pulse Oximetry 100 100 96 Oxygen Delivery BiPAP Nasal Cannula Nasal Cannula Oxygen Flow Rate 3 3 Fraction of Inspired Oxygen 04/07/25 08:00 04/07/25 08:05 04/07/25 09:42 Temperature 98.6 F Pulse Rate 76 78 70 Respiratory Rate 18 20 Blood Pressure 94/44 L Pulse Oximetry 96 Oxygen Delivery Oxygen Flow Rate Fraction of Inspired Oxygen 04/07/25 10:00 04/07/25 10:00 04/07/25 10:15 Temperature Pulse Rate 68 68 Respiratory Rate Blood Pressure 103/41 L 105/42 L Pulse Oximetry Oxygen Delivery Oxygen Flow Rate 3 Fraction of Inspired Oxygen 04/07/25 10:30 04/07/25 10:45 Temperature Pulse Rate 71 68 Respiratory Rate Blood Pressure 94/49 L 110/52 L Pulse Oximetry Oxygen Delivery Oxygen Flow Rate Fraction of Inspired Oxygen Intake/Output Intake/Output: Intake & Output 04/04/25 04/05/25 04/06/25 04/07/25 23:59 23:59 23:59 23:59 Intake Total 162.3 209.3 Output Total 3000 150 Balance -2837.7 59.3 Meds/Results Medications: Active Medications Generic Name Dose Route Start Last Admin Trade Name Freq PRN Reason Stop Dose Admin Acetaminophen 650 mg 04/06/25 17:25 Acetaminophen 325 Mg Tablet PO Q4H PRN Mild Pain (1-3) or Fever Hydrocodone Bitart/Acetaminophen 1 tab 04/06/25 17:25 04/07/25 09:10 Hydrocodone/Acetaminophen (*Crx) 5-325 Mg Tablet PO 1 tab Q4H PRN Administration Moderate Pain (4-6) Albuterol/Ipratropium 3 ml 04/06/25 14:00 04/07/25 07:55 Ipratropium 0.5 Mg/Albuterol Sulfate 2.5 Mg Ampul.Neb 3 Ml INHALATION 3 ml Q6HRT MARLEEN Administration Atorvastatin Calcium 40 mg 04/06/25 21:00 04/06/25 22:31 Atorvastatin 40 Mg Tablet PO 40 mg QHS MARLEEN Administration Dextrose 12.5 gm 04/07/25 10:55 Dextrose 50% 25 Gm/50 Ml Syringe IV PUSH PRN PRN Hypoglycemia Protocol Docusate Sodium 100 mg 04/07/25 09:00 04/07/25 09:09 Docusate Sodium 100 Mg Capsule PO 100 mg BID MARLEEN Administration Ferrous Sulfate 325 mg 04/07/25 09:00 04/07/25 09:09 Ferrous Sulfate [address] BY MOUTH 325 mg DAILY MARLEEN Administration Furosemide 40 mg 04/06/25 20:45 04/07/25 09:10 Furosemide Inj 40 Mg/4 Ml Vial IV PUSH 40 mg BID MARLEEN Administration Gabapentin 100 mg 04/07/25 09:00 04/07/25 09:09 Gabapentin 100 Mg Capsule PO 100 mg BID MARLEEN Administration Glucose 15 gm 04/07/25 10:55 Glucose Oral Gel 15 Gm Of Glucse In 37.5 Gm Tube PO PRN PRN Hypoglycemia Protocol Heparin Sodium (Porcine) 8,500 units 04/06/25 10:59 04/06/25 22:29 Heparin Sodium 5,000 Units/Ml Vial IV PUSH 8,500 units PRN PRN Administration aPTT less than 55 seconds Heparin Sodium (Porcine) 4,000 units 04/06/25 10:59 Heparin Sodium 5,000 Units/Ml Vial IV PUSH PRN PRN aPTT 55 - 70 seconds Hydroxyzine HCl 25 mg 04/07/25 04:05 04/07/25 04:14 Hydroxyzine Hcl 25 Mg Tablet PO 25 mg TID MARLEEN Administration Heparin Sodium/Dextrose 25,000 units in 250 mls @ 19 mls/hr 04/06/25 11:20 04/07/25 11:00 Heparin Sodium/D5w 100 Units/Ml IV CONT 1,900 units/hr .[id number] MARLEEN 19 mls/hr Titration Protocol 1,900 UNITS/HR Albumin Human 50 mls @ 999 mls/hr 04/06/25 11:33 Albutein IVPB 04/07/25 11:32 Q10M PRN HYPOTENSION Albumin Human 50 mls @ 999 mls/hr 04/07/25 07:37 Albutein IVPB 04/08/25 07:36 Q10M PRN HYPOTENSION Dextrose 1,000 mls @ 100 mls/hr 04/07/25 10:55 Dextrose 5% 1,000 Ml IVPB PRN PRN Hypoglycemia Protocol Insulin Aspart 2 - 5 units 04/07/25 12:00 Insulin Aspart (*Bkc) 100 Units/Ml SUB-Q TIDWM MARLEEN Protocol Insulin Aspart 1 - 2 units 04/07/25 21:00 Insulin Aspart (*Bkc) 100 Units/Ml SUB-Q HS MARLEEN Protocol Lactulose 30 gm 04/07/25 09:00 04/07/25 09:10 Lactulose 20 Gm/30 Ml Udc PO Not Given DAILY MARLEEN Levetiracetam 500 mg 04/07/25 03:25 04/07/25 04:13 Levetiracetam 500 Mg Tablet PO 500 mg Q12HR MARLEEN Administration Midodrine 10 mg 04/07/25 09:51 Midodrine Hcl 10 Mg Tablet PO PRN PRN half hour before dialysis and then 2 hours into dialysis Mupirocin 1 applic 04/07/25 11:30 Mupirocin 2% Oint 22 Gm Tube EACH NARE 04/11/25 21:01 Q12HR MARLEEN Ondansetron HCl 4 mg 04/06/25 17:25 Ondansetron Inj 4 Mg/2 Ml Vial IV PUSH Q6H PRN Nausea And Vomiting Oxcarbazepine 150 mg 04/07/25 03:25 04/07/25 04:13 Oxcarbazepine 150 Mg Tablet PO 150 mg Q12HR MARLEEN Administration Perflutren Lipid Microsphere 0 ml 04/06/25 19:02 Perflutren Lipid Microspheres 1.5 Ml Vial Diluted To 10 Ml Total Volume IV PUSH 04/09/25 19:02 ONCE PRN adequate visualization Protocol Quetiapine Fumarate 50 mg 04/07/25 21:00 Quetiapine Fumarate 25 Mg Tablet PO HS MARLEEN Trazodone HCl 50 mg 04/06/25 21:00 04/06/25 22:31 Trazodone Hcl 50 Mg Tablet PO 50 mg HS MARLEEN Administration Radiology Results: ITS Impressions Chest X-Ray 04/06/25 12:18 Impression: 1: Cardiomegaly with pulmonary edema. Labs Labs: Laboratory Results - last 24 hr 04/06/25 04/06/25 04/06/25 09:51 10:50 11:46 WBC RBC Hgb Hct MCV MCH MCHC RDW Plt Count MPV Immature Gran % (Auto) Neut % (Auto) Lymph % (Auto) [place] % (Auto) Eos % (Auto) Baso % (Auto) Lymph # (Auto) [place] # (Auto) Eos # (Auto) Baso # (Auto) Abs Immat Gran (auto) Absolute Neuts (auto) Absolute Nucleated RBC Nucleated RBC % APTT Puncture Site ABG pH ABG pCO2 ABG pO2 ABG PO2/FiO2 Ratio ABG HCO3 ABG O2 Saturation ABG O2 Content ABG Base Excess A-a Gradient Oxyhemoglobin Total Hemoglobin O2 Delivery Device O2 Liters/Min Vent Rate FiO2 Expiratory Pressure Inspiratory Pressure Sodium Potassium Chloride Carbon Dioxide Anion Gap BUN Creatinine Estim Creat Clear Calc Estimated GFR Glucose Calcium Phosphorus Troponin I Albumin Urine Color Dark yellow Urine Appearance Turbid H Urine pH 6.5 Ur Specific [place] 1.016 Urine Protein 4+ H Urine Glucose (UA) Negative Urine Ketones Negative Ur Blood (Man) 3+ H Urine Nitrate Negative Urine Bilirubin Negative Urine Urobilinogen 0.2 Add Ur Microanalysis Reviewed Leukocyte Esterase Rfl 3+ H Urine RBC >100 H Urine WBC >100 H Ur Squamous Epith Cells Many H Urine Bacteria 4+ H Urine Casts 11-20 Nasal MRSA (PCR) Hep Bs Antigen Negative Influenza A (RT-PCR) Negative Influenza B (RT-PCR) Negative RSV (RT-PCR) Negative SARS-CoV-2 RNA (RT-PCR) Negative 04/06/25 04/06/25 04/06/25 11:49 14:01 20:03 WBC RBC Hgb Hct MCV MCH MCHC RDW Plt Count MPV Immature Gran % (Auto) Neut % (Auto) Lymph % (Auto) [place] % (Auto) Eos % (Auto) Baso % (Auto) Lymph # (Auto) [place] # (Auto) Eos # (Auto) Baso # (Auto) Abs Immat Gran (auto) Absolute Neuts (auto) Absolute Nucleated RBC Nucleated RBC % APTT 48.6 H Puncture Site Right radial ABG pH 7.219 L* ABG pCO2 71.8 H* ABG pO2 74.8 L ABG PO2/FiO2 Ratio 2.67 ABG HCO3 28.7 H ABG O2 Saturation 91.5 L ABG O2 Content 11.7 L ABG Base Excess 0.1 A-a Gradient 40.1 Oxyhemoglobin 91.3 Total Hemoglobin 9.0 L O2 Delivery Device Non-invasive vent O2 Liters/Min Not Reportable Vent Rate 24 FiO2 28 Expiratory Pressure 8 Inspiratory Pressure 20 Sodium Potassium Chloride Carbon Dioxide Anion Gap BUN Creatinine Estim Creat Clear Calc Estimated GFR Glucose Calcium Phosphorus Troponin I 0.021 0.022 Albumin Urine Color Urine Appearance Urine pH Ur Specific [place] Urine Protein Urine Glucose (UA) Urine Ketones Ur Blood (Man) Urine Nitrate Urine Bilirubin Urine Urobilinogen Add Ur Microanalysis Leukocyte Esterase Rfl Urine RBC Urine WBC Ur Squamous Epith Cells Urine Bacteria Urine Casts Nasal MRSA (PCR) Hep Bs Antigen Influenza A (RT-PCR) Influenza B (RT-PCR) RSV (RT-PCR) SARS-CoV-2 RNA (RT-PCR) 04/07/25 04/07/25 04/07/25 04:17 04:47 05:00 WBC 5.8 RBC 2.58 L Hgb 7.4 L Hct 24.8 L MCV 96.1 MCH 28.7 MCHC 29.8 L RDW 15.6 H Plt Count 130 L MPV 8.7 Immature Gran % (Auto) 0.5 Neut % (Auto) 75.3 H Lymph % (Auto) 17.[address] [place] % (Auto) 6.9 Eos % (Auto) 0.0 Baso % (Auto) 0.0 L Lymph # (Auto) 1.01 [place] # (Auto) 0.4 Eos # (Auto) 0.0 Baso # (Auto) 0.0 Abs Immat Gran (auto) 0.03 Absolute Neuts (auto) 4.4 Absolute Nucleated RBC 0.000 Nucleated RBC % 0.0 APTT 80.0 H Puncture Site Right radial ABG pH 7.443 ABG pCO2 47.3 H ABG pO2 75.6 L ABG PO2/FiO2 Ratio 3.15 ABG HCO3 31.6 H ABG O2 Saturation 95.5 ABG O2 Content 12.3 L ABG Base Excess 6.7 A-a Gradient 39.2 Oxyhemoglobin 93.2 Total Hemoglobin 9.3 L O2 Delivery Device Non-invasive vent O2 Liters/Min Not Reportable Vent Rate 24 FiO2 24 Expiratory Pressure 8 Inspiratory Pressure 20 Sodium 133 L Potassium 4.2 Chloride 95 L Carbon Dioxide 32 H Anion Gap 6 BUN 34 H D Creatinine 3.56 H Estim Creat Clear Calc 23 Estimated GFR 13 L Glucose 130 H Calcium 8.6 Phosphorus 4.6 H Troponin I Albumin 3.4 L Urine Color Urine Appearance Urine pH Ur Specific [place] Urine Protein Urine Glucose (UA) Urine Ketones Ur Blood (Man) Urine Nitrate Urine Bilirubin Urine Urobilinogen Add Ur Microanalysis Leukocyte Esterase Rfl Urine RBC Urine WBC Ur Squamous Epith Cells Urine Bacteria Urine Casts Nasal MRSA (PCR) Detected A* Hep Bs Antigen Influenza A (RT-PCR) Influenza B (RT-PCR) RSV (RT-PCR) SARS-CoV-2 RNA (RT-PCR) 04/07/25 10:19 WBC RBC Hgb Hct MCV MCH MCHC RDW Plt Count MPV Immature Gran % (Auto) Neut % (Auto) Lymph % (Auto) [place] % (Auto) Eos % (Auto) Baso % (Auto) Lymph # (Auto) [place] # (Auto) Eos # (Auto) Baso # (Auto) Abs Immat Gran (auto) Absolute Neuts (auto) Absolute Nucleated RBC Nucleated RBC % APTT 98.6 H Puncture Site ABG pH ABG pCO2 ABG pO2 ABG PO2/FiO2 Ratio ABG HCO3 ABG O2 Saturation ABG O2 Content ABG Base Excess A-a Gradient Oxyhemoglobin Total Hemoglobin O2 Delivery Device O2 Liters/Min Vent Rate FiO2 Expiratory Pressure Inspiratory Pressure Sodium Potassium Chloride Carbon Dioxide Anion Gap BUN Creatinine Estim Creat Clear Calc Estimated GFR Glucose Calcium Phosphorus Troponin I Albumin Urine Color Urine Appearance Urine pH Ur Specific [place] Urine Protein Urine Glucose (UA) Urine Ketones Ur Blood (Man) Urine Nitrate Urine Bilirubin Urine Urobilinogen Add Ur Microanalysis Leukocyte Esterase Rfl Urine RBC Urine WBC Ur Squamous Epith Cells Urine Bacteria Urine Casts Nasal MRSA (PCR) Hep Bs Antigen Influenza A (RT-PCR) Influenza B (RT-PCR) RSV (RT-PCR) SARS-CoV-2 RNA (RT-PCR)
[2025-04-07 11:30] LABS: Hemoglobin A1C 5.3 % (<5.7)
[2025-04-07 11:53] LABS: Iron 96 ug/dL (37-170)
[2025-04-07 12:02] LABS: Percent Iron Saturation 46 % (20-50)
[2025-04-07] MEDS: EPOETIN ALFA-EPBX 10,000 UNITS/ML VIAL 10000 UNITS IV PUSH (12:05)
[2025-04-07] MEDS: MIDODRINE HCL 10 MG TABLET PO (12:11)
[2025-04-07 12:34] LABS: Ferritin 384.00 ng/mL (11.1-264)
--- NOTE | 2025-04-07 13:29 | P.PNIM_ITS ---
Progress Note: A&P Assessment and Plan (1) Pulmonary edema: Code(s): J81.1 - Chronic pulmonary edema Status: Acute Assessment and Plan: Urgent dialysis s/p BiPAP on nasal cannula oxygen continue dialysis nephrology on board (2) Hyperkalemia: Code(s): E87.5 - Hyperkalemia Status: Acute Assessment and Plan: Dialysis today monitor (3) End stage renal disease: Code(s): N18.6 - End stage renal disease Status: Chronic Assessment and Plan: HD dialysis on Wednesday Nephrology consulted Plan for emergent dialysis today due to pulmonary edema and hyperkalemia (4) Acute hypercapnic respiratory failure: Code(s): J96.02 - Acute respiratory failure with hypercapnia Status: Acute Assessment and Plan: S/p BiPAP on dialysis nephrology following (5) Anemia: Qualifiers: Anemia type: due to chronic kidney disease Chronic kidney disease stage: on chronic dialysis Qualified Code(s): N18.6 - End stage renal disease; D63.1 - Anemia in chronic kidney disease; Z99.2 - Dependence on renal dialysis Code(s): D64.9 - Anemia, unspecified Status: Acute Assessment and Plan: Erythropoietin Iron panel pending, Hb 7.4 monitor h and h (6) HTN (hypertension): Qualifiers: Hypertension type: unspecified Qualified Code(s): I10 - Essential (primary) hypertension Code(s): I10 - Essential (primary) hypertension Status: Chronic Assessment and Plan: Managed by dialysis (7) CHF (congestive heart failure): Qualifiers: Heart failure chronicity: unspecified Heart failure type: unspecified Qualified Code(s): I50.9 - Heart failure, unspecified Code(s): I50.9 - Heart failure, unspecified Status: Acute Assessment and Plan: IV Lasix b.i.lynn. Harry catheter for aggressive diuresis (8) COPD (chronic obstructive pulmonary disease): Qualifiers: COPD type: unspecified COPD Qualified Code(s): J44.9 - Chronic obstructive pulmonary disease, unspecified Code(s): J44.9 - Chronic obstructive pulmonary disease, unspecified Status: Acute Assessment and Plan: DuoNezeke (9) Seizures: Code(s): R56.9 - Unspecified convulsions Status: Acute Assessment and Plan: Continue Keppra (10) Bipolar 1 disorder: Code(s): F31.9 - Bipolar disorder, unspecified Status: Acute Assessment and Plan: Continue Seroquel Plan Possible UTI Urine and blood culture Ciprofloxacin Monitor patient service coordinator consulted for possible placement DVT prophylaxis on Sq Heparin Subjective Date/time seen: 04/07/25 13:29 Interval history: Comfortable at bedside S/p BiPAP , on dialysis Review of Systems Review of Systems: 12 systems were reviewed and are negativ e except for as per HPI. Exam Narrative: General: Chronically ill HEENT: normocephalic, atraumatic. Mucous membranes moist. EOMI, PERRLA, bilateral sclera anicteric, no conjunctival injection. Neck supple without JVD, lymphadenopathy, or bruit. Respiratory: clear to ascultation bilaterally. No rales/rhonic/wheezes. Cardiovascular: Regular rate and rhythm, normal S1-S2 upon ascultation. No murmurs, rubs, or clicks. PMI is nondisplaced, capillary refill less than 3 second. Abdomen: Obese edematous Soft, round, no pulsatile masses, nondistended and nontender. No rebound, no guarding. No CVA tenderness, no hepatosplenomegaly. Bowel sounds present to all four quadrants. No high pitch or tinkling sounds, resonant to percussion. Fissure and abdominal fold Extremities: No cyanosis, clubbing, or edema present. Pulses are palpable 2/2. Active ROM to all four extremities. Neuro: Alert and orientated x 4. PERRLA. Cranial nerves 2-12 intact without focal deficit. Skin: Warm, dry, and intact, without rash, erythema, or lesion. Psych: pleasant, cooperative, normal speech, normal affect, no hallucinations, no dysarthia Objective Data Vital Signs Vital Signs: Vital Signs - 24 hr 04/06/25 15:30 04/06/25 15:30 04/06/25 15:42 Temperature 98.4 F Pulse Rate 72 64 66 Respiratory Rate 24 H 24 H Blood Pressure 147/60 H 140/58 L Pulse Oximetry 100 93 Oxygen Delivery BiPAP Oxygen Flow Rate Fraction of Inspired Oxygen 04/06/25 15:42 04/06/25 16:00 04/06/25 16:15 Temperature Pulse Rate 78 81 Respiratory Rate Blood Pressure 118/44 L 106/63 Pulse Oximetry Oxygen Delivery Oxygen Flow Rate Fraction of Inspired Oxygen 24 04/06/25 16:30 04/06/25 16:45 04/06/25 17:00 Temperature Pulse Rate 68 66 69 Respiratory Rate Blood Pressure 138/60 123/58 L 140/55 L Pulse Oximetry Oxygen Delivery Oxygen Flow Rate Fraction of Inspired Oxygen 04/06/25 17:15 04/06/25 17:30 04/06/25 17:45 Temperature Pulse Rate 84 72 71 Respiratory Rate Blood Pressure 107/50 L 131/49 L 125/62 Pulse Oximetry Oxygen Delivery Oxygen Flow Rate Fraction of Inspired Oxygen 04/06/25 18:00 04/06/25 18:15 04/06/25 18:30 Temperature Pulse Rate 70 67 74 Respiratory Rate Blood Pressure 111/48 L 89/41 L 142/55 H Pulse Oximetry Oxygen Delivery Oxygen Flow Rate Fraction of Inspired Oxygen 04/06/25 18:45 04/06/25 19:00 04/06/25 19:15 Temperature Pulse Rate 71 70 67 Respiratory Rate Blood Pressure 141/63 H 140/59 L 123/56 L Pulse Oximetry Oxygen Delivery Oxygen Flow Rate Fraction of Inspired Oxygen 04/06/25 19:20 04/06/25 19:59 04/06/25 20:00 Temperature 99 F 98.1 F Pulse Rate 66 69 78 Respiratory Rate 24 H 26 H Blood Pressure 139/54 L 128/91 H Pulse Oximetry 100 100 Oxygen Delivery Oxygen Flow Rate Fraction of Inspired Oxygen 04/06/25 20:15 04/06/25 20:15 04/06/25 20:18 Temperature Pulse Rate 78 78 78 Respiratory Rate 30 H 26 H 27 H Blood Pressure Pulse Oximetry 100 100 Oxygen Delivery BiPAP BiPAP Oxygen Flow Rate Fraction of Inspired Oxygen 24 04/06/25 20:26 04/06/25 22:00 04/06/25 23:14 Temperature Pulse Rate 74 72 80 Respiratory Rate 25 H 26 H Blood Pressure Pulse Oximetry 100 Oxygen Delivery BiPAP Oxygen Flow Rate Fraction of Inspired Oxygen 24 04/06/25 23:47 04/07/25 00:00 04/07/25 02:00 Temperature 98 F Pulse Rate 80 78 80 Respiratory Rate 26 H Blood Pressure 94/70 L Pulse Oximetry 100 Oxygen Delivery Oxygen Flow Rate Fraction of Inspired Oxygen 04/07/25 02:01 04/07/25 02:02 04/07/25 02:15 Temperature Pulse Rate 82 82 79 Respiratory Rate 25 H 25 H 23 H Blood Pressure Pulse Oximetry 96 Oxygen Delivery BiPAP Oxygen Flow Rate Fraction of Inspired Oxygen 04/07/25 03:55 04/07/25 04:00 04/07/25 04:10 Temperature 98 F Pulse Rate 82 88 82 Respiratory Rate 24 H 24 H Blood Pressure 152/91 H Pulse Oximetry 100 100 Oxygen Delivery Nasal Cannula Oxygen Flow Rate 3 Fraction of Inspired Oxygen 04/07/25 05:22 04/07/25 05:58 04/07/25 07:51 Temperature 96.9 F L Pulse Rate 80 77 84 Respiratory Rate 24 H 24 H Blood Pressure 73/32 L Pulse Oximetry 95 94 Oxygen Delivery BiPAP Oxygen Flow Rate Fraction of Inspired Oxygen 04/07/25 07:51 04/07/25 07:56 04/07/25 07:58 Temperature Pulse Rate 75 75 Respiratory Rate 18 Blood Pressure 86/37 L Pulse Oximetry 100 Oxygen Delivery BiPAP Oxygen Flow Rate Fraction of Inspired Oxygen 04/07/25 07:58 04/07/25 08:00 04/07/25 08:00 Temperature Pulse Rate 75 76 Respiratory Rate 18 Blood Pressure Pulse Oximetry 100 96 Oxygen Delivery Nasal Cannula Nasal Cannula Oxygen Flow Rate 3 3 Fraction of Inspired Oxygen 04/07/25 08:05 04/07/25 09:42 04/07/25 10:00 Temperature 98.6 F Pulse Rate 78 70 Respiratory Rate 18 20 Blood Pressure 94/44 L Pulse Oximetry 96 Oxygen Delivery Oxygen Flow Rate 3 Fraction of Inspired Oxygen 04/07/25 10:00 04/07/25 10:15 04/07/25 10:30 Temperature Pulse Rate 68 68 71 Respiratory Rate Blood Pressure 103/41 L 105/42 L 94/49 L Pulse Oximetry Oxygen Delivery Oxygen Flow Rate Fraction of Inspired Oxygen 04/07/25 10:45 04/07/25 11:00 04/07/25 11:15 Temperature Pulse Rate 68 70 73 Respiratory Rate Blood Pressure 110/52 L 113/49 L 116/47 L Pulse Oximetry Oxygen Delivery Oxygen Flow Rate Fraction of Inspired Oxygen 04/07/25 11:30 04/07/25 11:45 04/07/25 12:00 Temperature Pulse Rate 69 68 70 Respiratory Rate Blood Pressure 97/45 L 101/42 L 95/46 L Pulse Oximetry Oxygen Delivery Oxygen Flow Rate Fraction of Inspired Oxygen 04/07/25 12:00 04/07/25 12:15 04/07/25 12:30 Temperature Pulse Rate 69 70 70 Respiratory Rate Blood Pressure 92/40 L 96/45 L Pulse Oximetry Oxygen Delivery Oxygen Flow Rate Fraction of Inspired Oxygen 04/07/25 12:45 Temperature Pulse Rate 74 Respiratory Rate Blood Pressure 102/40 L Pulse Oximetry Oxygen Delivery Oxygen Flow Rate Fraction of Inspired Oxygen Intake/Output Intake/Output: Intake & Output 04/04/25 04/05/25 04/06/25 04/07/25 23:59 23:59 23:59 23:59 Intake Total 162.3 209.3 Output Total 3000 150 Balance -2837.7 59.3 Meds/Results Medications: Active Medications Generic Name Dose Route Start Last Admin Trade Name Freq PRN Reason Stop Dose Admin Acetaminophen 650 mg 04/06/25 17:25 Acetaminophen 325 Mg Tablet PO Q4H PRN Mild Pain (1-3) or Fever Hydrocodone Bitart/Acetaminophen 1 tab 04/06/25 17:25 04/07/25 09:10 Hydrocodone/Acetaminophen (*Crx) 5-325 Mg Tablet PO 1 tab Q4H PRN Administration Moderate Pain (4-6) Albuterol/Ipratropium 3 ml 04/06/25 14:00 04/07/25 07:55 Ipratropium 0.5 Mg/Albuterol Sulfate 2.5 Mg Ampul.Neb 3 Ml INHALATION 3 ml Q6HRT MARLEEN Administration Atorvastatin Calcium 40 mg 04/06/25 21:00 04/06/25 22:31 Atorvastatin 40 Mg Tablet PO 40 mg QHS MARLEEN Administration Dextrose 12.5 gm 04/07/25 10:55 Dextrose 50% 25 Gm/50 Ml Syringe IV PUSH PRN PRN Hypoglycemia Protocol Docusate Sodium 100 mg 04/07/25 09:00 04/07/25 09:09 Docusate Sodium 100 Mg Capsule PO 100 mg BID MARLEEN Administration Ferrous Sulfate 325 mg 04/07/25 09:00 04/07/25 09:09 Ferrous Sulfate [address] BY MOUTH 325 mg DAILY MARLEEN Administration Furosemide 40 mg 04/06/25 20:45 04/07/25 09:10 Furosemide Inj 40 Mg/4 Ml Vial IV PUSH 40 mg BID MARLEEN Administration Gabapentin 100 mg 04/07/25 09:00 04/07/25 09:09 Gabapentin 100 Mg Capsule PO 100 mg BID MARLEEN Administration Glucose 15 gm 04/07/25 10:55 Glucose Oral Gel 15 Gm Of Glucse In 37.5 Gm Tube PO PRN PRN Hypoglycemia Protocol Heparin Sodium (Porcine) 8,500 units 04/06/25 10:59 04/06/25 22:29 Heparin Sodium 5,000 Units/Ml Vial IV PUSH 8,500 units PRN PRN Administration aPTT less than 55 seconds Heparin Sodium (Porcine) 4,000 units 04/06/25 10:59 Heparin Sodium 5,000 Units/Ml Vial IV PUSH PRN PRN aPTT 55 - 70 seconds Hydroxyzine HCl 25 mg 04/07/25 04:05 04/07/25 04:14 Hydroxyzine Hcl 25 Mg Tablet PO 25 mg TID MARLEEN Administration Heparin Sodium/Dextrose 25,000 units in 250 mls @ 19 mls/hr 04/06/25 11:20 04/07/25 11:00 Heparin Sodium/D5w 100 Units/Ml IV CONT 1,900 units/hr .[id number] MARLEEN 19 mls/hr Titration Protocol 1,900 UNITS/HR Albumin Human 50 mls @ 999 mls/hr 04/07/25 07:37 Albutein IVPB 04/08/25 07:36 Q10M PRN HYPOTENSION Dextrose 1,000 mls @ 100 mls/hr 04/07/25 10:55 Dextrose 5% 1,000 Ml IVPB PRN PRN Hypoglycemia Protocol Ciprofloxacin/Dextrose 200 mls @ 200 mls/hr 04/07/25 12:00 Cipro 400 Mg/D5w 200 Ml IVPB Q24H MARLEEN Insulin Aspart 2 - 5 units 04/07/25 12:00 Insulin Aspart (*Bkc) 100 Units/Ml SUB-Q TIDWM MARLEEN Protocol Insulin Aspart 1 - 2 units 04/07/25 21:00 Insulin Aspart (*Bkc) 100 Units/Ml SUB-Q HS MARLEEN Protocol Lactulose 30 gm 04/07/25 09:00 04/07/25 09:10 Lactulose 20 Gm/30 Ml Udc PO Not Given DAILY MARLEEN Levetiracetam 500 mg 04/07/25 03:25 04/07/25 04:13 Levetiracetam 500 Mg Tablet PO 500 mg Q12HR MARLEEN Administration Midodrine 10 mg 04/07/25 09:51 Midodrine Hcl 10 Mg Tablet PO PRN PRN half hour before dialysis and then 2 hours into dialysis Mupirocin 1 applic 04/07/25 11:30 Mupirocin 2% Oint 22 Gm Tube EACH NARE 04/11/25 21:01 Q12HR MARLEEN Ondansetron HCl 4 mg 04/06/25 17:25 Ondansetron Inj 4 Mg/2 Ml Vial IV PUSH Q6H PRN Nausea And Vomiting Oxcarbazepine 150 mg 04/07/25 03:25 04/07/25 04:13 Oxcarbazepine 150 Mg Tablet PO 150 mg Q12HR MARLEEN Administration Perflutren Lipid Microsphere 0 ml 04/06/25 19:02 Perflutren Lipid Microspheres 1.5 Ml Vial Diluted To 10 Ml Total Volume IV PUSH 04/09/25 19:02 ONCE PRN adequate visualization Protocol Quetiapine Fumarate 50 mg 04/07/25 21:00 Quetiapine Fumarate 25 Mg Tablet PO HS MARLEEN Trazodone HCl 50 mg 04/06/25 21:00 04/06/25 22:31 Trazodone Hcl 50 Mg Tablet PO 50 mg HS MARLEEN Administration Radiology Results: ITS Impressions Chest X-Ray 04/06/25 12:18 Impression: 1: Cardiomegaly with pulmonary edema. Labs Labs: Laboratory Results - last 24 hr 04/06/25 04/06/25 04/06/25 09:51 14:01 20:03 WBC RBC Hgb Hct MCV MCH MCHC RDW Plt Count MPV Immature Gran % (Auto) Neut % (Auto) Lymph % (Auto) Titus % (Auto) Eos % (Auto) Baso % (Auto) Lymph # (Auto) Titus # (Auto) Eos # (Auto) Baso # (Auto) Abs Immat Gran (auto) Absolute Neuts (auto) Absolute Nucleated RBC Nucleated RBC % APTT 48.6 H Puncture Site ABG pH ABG pCO2 ABG pO2 ABG PO2/FiO2 Ratio ABG HCO3 ABG O2 Saturation ABG O2 Content ABG Base Excess A-a Gradient Oxyhemoglobin Total Hemoglobin O2 Delivery Device O2 Liters/Min Vent Rate FiO2 Expiratory Pressure Inspiratory Pressure Sodium Potassium Chloride Carbon Dioxide Anion Gap BUN Creatinine Estim Creat Clear Calc Estimated GFR Glucose Hemoglobin A1c Calcium Phosphorus Iron TIBC % Saturation Ferritin Troponin I 0.021 0.022 Albumin Nasal MRSA (PCR) Hep Bs Antigen Negative 04/07/25 04/07/25 04/07/25 04:12 04:17 04:47 WBC 5.8 RBC 2.58 L Hgb 7.4 L Hct 24.8 L MCV 96.1 MCH 28.7 MCHC 29.8 L RDW 15.6 H Plt Count 130 L MPV 8.7 Immature Gran % (Auto) 0.5 Neut % (Auto) 75.3 H Lymph % (Auto) 17.3 L Titus % (Auto) 6.9 Eos % (Auto) 0.0 Baso % (Auto) 0.0 L Lymph # (Auto) 1.01 Titus # (Auto) 0.4 Eos # (Auto) 0.0 Baso # (Auto) 0.0 Abs Immat Gran (auto) 0.03 Absolute Neuts (auto) 4.4 Absolute Nucleated RBC 0.000 Nucleated RBC % 0.0 APTT 80.0 H Puncture Site ABG pH ABG pCO2 ABG pO2 ABG PO2/FiO2 Ratio ABG HCO3 ABG O2 Saturation ABG O2 Content ABG Base Excess A-a Gradient Oxyhemoglobin Total Hemoglobin O2 Delivery Device O2 Liters/Min Vent Rate FiO2 Expiratory Pressure Inspiratory Pressure Sodium 133 L Potassium 4.2 Chloride 95 L Carbon Dioxide 32 H Anion Gap 6 BUN 34 H D Creatinine 3.56 H Estim Creat Clear Calc 23 Estimated GFR 13 L Glucose 130 H Hemoglobin A1c 5.3 Calcium 8.6 Phosphorus 4.6 H Iron 96 TIBC 207 L % Saturation 46 Ferritin 384.00 H Troponin I Albumin 3.4 L Nasal MRSA (PCR) Detected A* Hep Bs Antigen 04/07/25 04/07/25 05:00 10:19 WBC RBC Hgb Hct MCV MCH MCHC RDW Plt Count MPV Immature Gran % (Auto) Neut % (Auto) Lymph % (Auto) Titus % (Auto) Eos % (Auto) Baso % (Auto) Lymph # (Auto) Titus # (Auto) Eos # (Auto) Baso # (Auto) Abs Immat Gran (auto) Absolute Neuts (auto) Absolute Nucleated RBC Nucleated RBC % APTT 98.6 H Puncture Site Right radial ABG pH 7.443 ABG pCO2 47.3 H ABG pO2 75.6 L ABG PO2/FiO2 Ratio 3.15 ABG HCO3 31.6 H ABG O2 Saturation 95.5 ABG O2 Content 12.3 L ABG Base Excess 6.7 A-a Gradient 39.2 Oxyhemoglobin 93.2 Total Hemoglobin 9.3 L O2 Delivery Device Non-invasive vent O2 Liters/Min Not Reportable Vent Rate 24 FiO2 24 Expiratory Pressure 8 Inspiratory Pressure 20 Sodium Potassium Chloride Carbon Dioxide Anion Gap BUN Creatinine Estim Creat Clear Calc Estimated GFR Glucose Hemoglobin A1c Calcium Phosphorus Iron TIBC % Saturation Ferritin Troponin I Albumin Nasal MRSA (PCR) Hep Bs Antigen Quality VTE Prophylaxis VTE prophylaxis: mechanical ordered
[2025-04-07] MEDS: CIPROFLOXACIN 400 MG/D5W 200ML 200 ML 200 MG IVPB (14:36)
[2025-04-07] MEDS: MUPIROCIN 2% OINT 22 GM TUBE 1 APPLIC EACH NARE ×2 (14:39→21:50)
[2025-04-07 17:22] LABS: IFOB Positive Control Positive; Immunochemical Fecal Occult Bl Positive (N)
[2025-04-07] MEDS: ATORVASTATIN 40 MG TABLET PO (21:50)
[2025-04-07] MEDS: PANTOPRAZOLE SODIUM IV 40 MG VIAL IV PUSH (21:51)
[2025-04-08] VITALS (20 sets, daily range): BP systolic 108–133; BP diastolic 35–48; PULSE 59–77; RESP 16–24; TEMP 36.7–37.4; O2SAT 96–99
[2025-04-08] MEDS: IPRATROPIUM 0.5 MG/ALBUTEROL SULFATE 2.5 MG AMPUL.NEB 3 ML INHALATION ×4 (02:43→20:50)
[2025-04-08 04:35] LABS: Hematocrit 25.6 % (37.0-47.0); Hemoglobin 7.6 g/dL (12.0-15.0); Mean Corpuscular HGB Conc 29.7 g/dl (32-36); Mean Corpuscular Hemoglobin 28.4 pg (26-34); Mean Corpuscular Volume 95.5 fl (80-100); Platelet Count Result 148 k/mm3 (150-375); Red Blood Count 2.68 M/mm3 (4.2-5.4); White Blood Count 4.3 K/mm3 (4.5-10.0)
[2025-04-08 04:51] LABS: Partial Thromboplastin Time 29.3 Seconds (22.3-36.8)
[2025-04-08 05:01] LABS: Albumin Level 3.3 g/dL (3.5-5.1); Anion Gap 0 mmol/L (4-12); Blood Urea Nitrogen 22 mg/dL (7-17); Calcium 8.6 mg/dL (8.4-10.2); Carbon Dioxide 33 mmol/L (22-30); Chloride 96 mmol/L (98-107); Estimated CRCL calculation 29 ml/min; Estimated Glomerular Filt Rate 17; Glucose 123 mg/dL (65-110); Potassium 3.9 mmol/L (3.4-5.0); Sodium 129 mmol/L (137-145)
[2025-04-08] MEDS: PANTOPRAZOLE SODIUM IV 40 MG VIAL IV PUSH ×2 (09:21→21:00)
[2025-04-08] MEDS: FERROUS SULFATE 325 MG TABLET DR BY MOUTH (09:21)
[2025-04-08] MEDS: FUROSEMIDE INJ 40 MG/4 ML VIAL IV PUSH ×2 (09:21→16:36)
[2025-04-08] MEDS: GABAPENTIN 100 MG CAPSULE PO ×2 (09:21→16:36)
[2025-04-08] MEDS: DOCUSATE SODIUM 100 MG CAPSULE PO (09:21)
--- NOTE | 2025-04-08 09:21 | P.PNNP_ITS ---
Progress Note: A&P Assessment and Plan (1) End stage renal disease: Code(s): N18.6 - End stage renal disease Status: Chronic Assessment and Plan: * last HD treatment yesterday. * 3L was removed. * Her blood pressure does run low. She is on midodrine. I did up the dose to10mg before treatment and 10mg 2hours into the treatment if needed. She did receive some albumin as well And the patient was dialyzed on a low temperature bath.. * normal schedule is Mondays, Wednesdays, and Fridays * Will do another treatment tomorrow to get back on schedule (2) Anemia: Qualifiers: Anemia type: due to chronic kidney disease Chronic kidney disease stage: on chronic dialysis Qualified Code(s): N18.6 - End stage renal disease; D63.1 - Anemia in chronic kidney disease; Z99.2 - Dependence on renal dialysis Code(s): D64.9 - Anemia, unspecified Status: Acute Assessment and Plan: * Hemoglobin stabilized at 7.6 * T sat is good * Will give another dose of EPO tomorrow. * Hemoccult-positive * ? Etiology * check CBC in the morning (3) HTN (hypertension): Qualifiers: Hypertension type: unspecified Qualified Code(s): I10 - Essential (primary) hypertension Code(s): I10 - Essential (primary) hypertension Status: Chronic Assessment and Plan: * Systolic in the 110 to 120s now. * Off antihypertensives. * On midodrine for dialysis purposes (4) Chronic respiratory failure with hypoxia: Code(s): J96.11 - Chronic respiratory failure with hypoxia Status: Chronic Assessment and Plan: * multifactorial: * COPD * SHELDON * OHS * CHF * on chornic supplemental oxygen * She is on BiPAP at the correction * continue supportive therapy (5) Left renal mass: Code(s): N28.89 - Other specified disorders of kidney and ureter Status: Chronic Assessment and Plan: * follows with Urology as an outpatient * per review of outside records, deemed to be a poor surgical candidate Subjective Date/time seen: 04/08/25 09:21 Interval history: Patient feels okay. Eating okay. No shortness of breath today she has left kidney pain from that mass in her kidney that bothers her from time to time. This has been going on for about a year. Exam Narrative: WDWN in NAD skin no rash Or subcu nodules head ncat lungs clear bilaterally cor reg no rub abd BS+ nontender and soft ext no edema. Objective Data Vital Signs Vital Signs: Vital Signs - 24 hr 04/07/25 09:42 04/07/25 10:00 04/07/25 10:00 Temperature 98.6 F Pulse Rate 70 68 Respiratory Rate 20 Blood Pressure 94/44 L 103/41 L Pulse Oximetry 96 Oxygen Delivery Oxygen Flow Rate 3 Fraction of Inspired Oxygen 04/07/25 10:15 04/07/25 10:30 04/07/25 10:45 Temperature Pulse Rate 68 71 68 Respiratory Rate Blood Pressure 105/42 L 94/49 L 110/52 L Pulse Oximetry Oxygen Delivery Oxygen Flow Rate Fraction of Inspired Oxygen 04/07/25 11:00 04/07/25 11:15 04/07/25 11:30 Temperature Pulse Rate 70 73 69 Respiratory Rate Blood Pressure 113/49 L 116/47 L 97/45 L Pulse Oximetry Oxygen Delivery Oxygen Flow Rate Fraction of Inspired Oxygen 04/07/25 11:45 04/07/25 12:00 04/07/25 12:00 Temperature Pulse Rate 68 70 69 Respiratory Rate Blood Pressure 101/42 L 95/46 L Pulse Oximetry Oxygen Delivery Oxygen Flow Rate Fraction of Inspired Oxygen 04/07/25 12:00 04/07/25 12:15 04/07/25 12:30 Temperature 98.4 F Pulse Rate 71 70 70 Respiratory Rate 16 Blood Pressure 109/58 L 92/40 L 96/45 L Pulse Oximetry 98 Oxygen Delivery Oxygen Flow Rate Fraction of Inspired Oxygen 04/07/25 12:45 04/07/25 13:00 04/07/25 13:15 Temperature Pulse Rate 74 67 67 Respiratory Rate Blood Pressure 102/40 L 103/46 L 100/41 L Pulse Oximetry Oxygen Delivery Oxygen Flow Rate Fraction of Inspired Oxygen 04/07/25 13:32 04/07/25 13:38 04/07/25 14:00 Temperature 98.6 F Pulse Rate 69 71 Respiratory Rate 20 Blood Pressure 100/51 L 100/50 L Pulse Oximetry 99 97 Oxygen Delivery Nasal Cannula Oxygen Flow Rate 3 Fraction of Inspired Oxygen 04/07/25 14:00 04/07/25 16:00 04/07/25 16:00 Temperature 98.8 F Pulse Rate 71 74 Respiratory Rate 16 Blood Pressure 108/59 L Pulse Oximetry 100 100 Oxygen Delivery Nasal Cannula Oxygen Flow Rate 3 Fraction of Inspired Oxygen 04/07/25 16:00 04/07/25 18:00 04/07/25 19:36 Temperature 98.4 F Pulse Rate 74 66 66 Respiratory Rate 18 Blood Pressure 123/42 L Pulse Oximetry 100 Oxygen Delivery Oxygen Flow Rate Fraction of Inspired Oxygen 04/07/25 20:00 04/07/25 21:11 04/07/25 21:12 Temperature Pulse Rate 64 69 Respiratory Rate 18 Blood Pressure Pulse Oximetry 97 Oxygen Delivery Nasal Cannula Oxygen Flow Rate 3 Fraction of Inspired Oxygen 04/07/25 21:17 04/07/25 21:43 04/07/25 22:00 Temperature Pulse Rate 71 66 68 Respiratory Rate 18 18 Blood Pressure Pulse Oximetry 100 Oxygen Delivery Nasal Cannula Oxygen Flow Rate 3 Fraction of Inspired Oxygen 04/07/25 23:45 04/07/25 23:45 04/08/25 00:00 Temperature 98.6 F Pulse Rate 66 69 69 Respiratory Rate 24 H 16 16 Blood Pressure 111/35 L Pulse Oximetry 96 98 98 Oxygen Delivery BiPAP BiPAP Oxygen Flow Rate Fraction of Inspired Oxygen 04/08/25 00:00 04/08/25 01:54 04/08/25 02:44 Temperature Pulse Rate 70 60 59 L Respiratory Rate 24 H Blood Pressure Pulse Oximetry 96 Oxygen Delivery BiPAP Oxygen Flow Rate Fraction of Inspired Oxygen 04/08/25 02:45 04/08/25 02:57 04/08/25 03:26 Temperature 98.0 F Pulse Rate 59 L 60 66 Respiratory Rate 24 H 24 H 17 Blood Pressure 113/47 L Pulse Oximetry 99 Oxygen Delivery Oxygen Flow Rate Fraction of Inspired Oxygen 04/08/25 04:00 04/08/25 04:10 04/08/25 05:00 Temperature Pulse Rate 62 66 68 Respiratory Rate 17 24 H Blood Pressure Pulse Oximetry 99 98 Oxygen Delivery BiPAP BiPAP Oxygen Flow Rate Fraction of Inspired Oxygen 04/08/25 06:00 04/08/25 07:31 04/08/25 07:31 Temperature 99.3 F Pulse Rate 60 67 76 Respiratory Rate 20 16 Blood Pressure 118/36 L Pulse Oximetry 99 Oxygen Delivery Oxygen Flow Rate Fraction of Inspired Oxygen 04/08/25 07:32 04/08/25 07:34 Temperature Pulse Rate Respiratory Rate Blood Pressure 108/40 L Pulse Oximetry 97 Oxygen Delivery Nasal Cannula Oxygen Flow Rate 3 Fraction of Inspired Oxygen Intake/Output Intake/Output: Intake & Output 04/05/25 04/06/25 04/07/25 04/08/25 23:59 23:59 23:59 23:59 Intake Total 162.3 1022.2 360 Output Total 3000 3150 125 Balance -2837.7 -2127.8 235 Meds/Results Medications: Active Medications Generic Name Dose Route Start Last Admin Trade Name Freq PRN Reason Stop Dose Admin Acetaminophen 650 mg 04/06/25 17:25 Acetaminophen 325 Mg Tablet PO Q4H PRN Mild Pain (1-3) or Fever Hydrocodone Bitart/Acetaminophen 1 tab 04/06/25 17:25 04/07/25 22:48 Hydrocodone/Acetaminophen (*Crx) 5-325 Mg Tablet PO 1 tab Q4H PRN Administration Moderate Pain (4-6) Albuterol/Ipratropium 3 ml 04/06/25 14:00 04/08/25 07:31 Ipratropium 0.5 Mg/Albuterol Sulfate 2.5 Mg Ampul.Neb 3 Ml INHALATION 3 ml Q6HRT MARLEEN Administration Atorvastatin Calcium 40 mg 04/06/25 21:00 04/07/25 21:50 Atorvastatin 40 Mg Tablet PO 40 mg QHS MARLEEN Administration Dextrose 12.5 gm 04/07/25 10:55 Dextrose 50% 25 Gm/50 Ml Syringe IV PUSH PRN PRN Hypoglycemia Protocol Docusate Sodium 100 mg 04/07/25 09:00 04/07/25 16:59 Docusate Sodium 100 Mg Capsule PO Not Given BID MARLEEN Ferrous Sulfate 325 mg 04/07/25 09:00 04/07/25 09:09 Ferrous Sulfate [address] BY MOUTH 325 mg DAILY MARLEEN Administration Furosemide 40 mg 04/06/25 20:45 04/07/25 17:07 Furosemide Inj 40 Mg/4 Ml Vial IV PUSH 40 mg BID MARLEEN Administration Gabapentin 100 mg 04/07/25 09:00 04/07/25 17:07 Gabapentin 100 Mg Capsule PO 100 mg BID MARLEEN Administration Glucose 15 gm 04/07/25 10:55 Glucose Oral Gel 15 Gm Of Glucse In 37.5 Gm Tube PO PRN PRN Hypoglycemia Protocol Heparin Sodium (Porcine) 8,500 units 04/06/25 10:59 04/06/25 22:29 Heparin Sodium 5,000 Units/Ml Vial IV PUSH 8,500 units PRN PRN Administration aPTT less than 55 seconds Heparin Sodium (Porcine) 4,000 units 04/06/25 10:59 Heparin Sodium 5,000 Units/Ml Vial IV PUSH PRN PRN aPTT 55 - 70 seconds Hydroxyzine HCl 25 mg 04/07/25 04:05 04/07/25 17:07 Hydroxyzine Hcl 25 Mg Tablet PO 25 mg TID MARLEEN Administration Heparin Sodium/Dextrose 25,000 units in 250 mls @ 0 mls/hr 04/06/25 11:20 04/08/25 05:23 Heparin Sodium/D5w 100 Units/Ml IV CONT Not Given .Q0M MARLEEN Protocol 0 UNITS/HR Dextrose 1,000 mls @ 100 mls/hr 04/07/25 10:55 Dextrose 5% 1,000 Ml IVPB PRN PRN Hypoglycemia Protocol Ciprofloxacin/Dextrose 200 mls @ 200 mls/hr 04/07/25 12:00 04/07/25 19:20 Cipro 400 Mg/D5w 200 Ml IVPB Infused Q24H MARLEEN Infusion Insulin Aspart 2 - 5 units 04/07/25 12:00 04/08/25 09:20 Insulin Aspart (*Bkc) 100 Units/Ml SUB-Q Not Given TIDWM MARLEEN Protocol Insulin Aspart 1 - 2 units 04/07/25 21:00 04/07/25 22:44 Insulin Aspart (*Bkc) 100 Units/Ml SUB-Q Not Given HS MARLEEN Protocol Lactulose 30 gm 04/07/25 09:00 04/07/25 09:10 Lactulose 20 Gm/30 Ml Udc PO Not Given DAILY MARLEEN Levetiracetam 500 mg 04/07/25 03:25 04/07/25 21:50 Levetiracetam 500 Mg Tablet PO 500 mg Q12HR MARLEEN Administration Midodrine 10 mg 04/07/25 09:51 04/07/25 12:11 Midodrine Hcl 10 Mg Tablet PO 10 mg PRN PRN Administration half hour before dialysis and then 2 hours into dialysis Mupirocin 1 applic 04/07/25 11:30 04/07/25 21:50 Mupirocin 2% Oint 22 Gm Tube EACH NARE 04/11/25 21:01 1 applic Q12HR MARLEEN Administration Ondansetron HCl 4 mg 04/06/25 17:25 Ondansetron Inj 4 Mg/2 Ml Vial IV PUSH Q6H PRN Nausea And Vomiting Oxcarbazepine 150 mg 04/07/25 03:25 04/07/25 21:51 Oxcarbazepine 150 Mg Tablet PO 150 mg Q12HR MARLEEN Administration Pantoprazole Sodium 40 mg 04/07/25 21:00 04/07/25 21:51 Pantoprazole Sodium Iv 40 Mg Vial IV PUSH 40 mg Q12HR MARLEEN Administration Perflutren Lipid Microsphere 0 ml 04/06/25 19:02 Perflutren Lipid Microspheres 1.5 Ml Vial Diluted To 10 Ml Total Volume IV PUSH 04/09/25 19:02 ONCE PRN adequate visualization Protocol Perflutren Lipid Microsphere 0 ml 04/07/25 14:02 Perflutren Lipid Microspheres 1.5 Ml Vial Diluted To 10 Ml Total Volume IV PUSH 04/10/25 14:02 ONCE PRN adequate visualization Protocol Quetiapine Fumarate 50 mg 04/07/25 21:00 04/07/25 21:51 Quetiapine Fumarate 25 Mg Tablet PO 50 mg HS MARLEEN Administration Trazodone HCl 50 mg 04/06/25 21:00 04/07/25 21:51 Trazodone Hcl 50 Mg Tablet PO 50 mg HS MARLEEN Administration Radiology Results: ITS Impressions Chest X-Ray 04/06/25 12:18 Impression: 1: Cardiomegaly with pulmonary edema. Venous Doppler Study 04/07/25 18:31 IMPRESSION: Patent bilateral lower extremity veins. No evidence of deep venous thrombosis. Labs Labs: Laboratory Results - last 24 hr 04/07/25 04/07/25 04/07/25 04:12 10:19 14:26 WBC RBC Hgb Hct MCV MCH MCHC RDW Plt Count MPV APTT 98.6 H Sodium Potassium Chloride Carbon Dioxide Anion Gap BUN Creatinine Estim Creat Clear Calc Estimated GFR Glucose POC Capillary Glucose 108 H Hemoglobin A1c 5.3 Calcium Phosphorus Iron 96 TIBC 207 L % Saturation 46 Ferritin 384.00 H Albumin Stl Occult Blood (IFOB) 04/07/25 04/07/25 04/07/25 15:54 16:50 20:31 WBC RBC Hgb Hct MCV MCH MCHC RDW Plt Count MPV APTT Sodium Potassium Chloride Carbon Dioxide Anion Gap BUN Creatinine Estim Creat Clear Calc Estimated GFR Glucose POC Capillary Glucose 142 H 117 H Hemoglobin A1c Calcium Phosphorus Iron TIBC % Saturation Ferritin Albumin Stl Occult Blood (IFOB) Positive H 04/08/25 04/08/25 03:54 07:23 WBC 4.3 L RBC 2.68 L Hgb 7.6 L Hct 25.6 L MCV 95.5 MCH 28.4 MCHC 29.7 L RDW 15.4 H Plt Count 148 L MPV 8.9 APTT 29.3 Sodium 129 L Potassium 3.9 Chloride 96 L Carbon Dioxide 33 H Anion Gap 0 L BUN 22 H D Creatinine 2.82 H Estim Creat Clear Calc 29 Estimated GFR 17 L Glucose 123 H POC Capillary Glucose 119 H Hemoglobin A1c Calcium 8.6 Phosphorus 3.5 Iron TIBC % Saturation Ferritin Albumin 3.3 L Stl Occult Blood (IFOB)
[2025-04-08] MEDS: MUPIROCIN 2% OINT 22 GM TUBE 1 APPLIC EACH NARE (09:22)
--- NOTE | 2025-04-08 10:33 | WPDGICN ---
Assessment and Plan Assessment and plan (1) Seizures: Code(s): R56.9 - Unspecified convulsions Status: Acute (2) Anemia: Qualifiers: Anemia type: due to chronic kidney disease Chronic kidney disease stage: on chronic dialysis Qualified Code(s): N18.6 - End stage renal disease; D63.1 - Anemia in chronic kidney disease; Z99.2 - Dependence on renal dialysis Code(s): D64.9 - Anemia, unspecified Status: Acute (3) Acute hypercapnic respiratory failure: Code(s): J96.02 - Acute respiratory failure with hypercapnia Status: Acute (4) Morbid obesity with BMI of 70 and over, adult: Code(s): E66.01 - Morbid (severe) obesity due to excess calories; Z68.45 - Body mass index [BMI] 70 or greater, adult Status: Acute Plan CURRENTLY PATIENT IS HEMODYNAMICALLY STABLE NO SIGNS OF GI BLEED HAS BEEN NOTICED. PATIENT HAS MULTIPLE COMORBIDITIES INCLUDING AFIB ALSO HAS/SHORTNESS OF BREATH, CONGESTIVE HEART FAILURE AND END-STAGE RENAL DISEASE. PATIENT WILL NEED EVALUATION FOR ANEMIA AND HEME-POSITIVE STOOL AT THIS TIME RECOMMENDED ULTRASOUND OF THE ABDOMEN WHICH HAS BEEN ORDERED TO RULE OUT LIVER DISEASE OR ASCITES CULPRIT FOR ABDOMINAL DISTENSION. I WILL ALSO RECOMMEND PATIENT TO HAVE A CARDIAC EVALUATION PATIENT WILL DEFINITELY BENEFIT FROM SEEING IRON WORKER [employer] ONCOLOGIST ON OUTPATIENT BASIS BECAUSE OF ANEMIA WELL RENAL FAILURE AT SOME POINT EITHER INPATIENT OR OUTPATIENT PATIENT WILL NEED EVALUATION BY UPPER ENDOSCOPY AND COLONOSCOPY WHICH WILL BE DECIDED BY THE REGULAR GI SERVICE WHICH WILL RESUME PATIENT CARE ON WEDNESDAY. WOULD RECOMMEND CARDIAC EVALUATION BEFORE ANY ENDOSCOPY EVALUATION IS CARRIED OUT. THANKS FOR THE CONSULT GI Consult Note Consult date/time: 04/08/25 10:34 Reason for consult: Anemia heme-positive Renal failure on dialysis Shortness of breath/congestive heart History of blood transfusions Family history of colon cancer HPI: Cathy Greene is a 65 year old female Patient seen patient lives in retirement/assisted living GI has consulted because of anemia and heme-positive stool. Patient's hemoglobin 7.6 platelets of 148. Patient came to the hospital because of shortness of breath patient has end-stage renal disease currently on dialysis according to her she used to get blood transfusions in the past. According to the last colonoscopy she had was loaned 30 years ago. Patient also complains of some abdominal distension she feels like. According to her she has history of atrial fibrillation but does not know if she has seen a labor and delivery registered nurse before. Currently lying in the bed comfortably denies vision because of MRSA ARE DENIES ANY NAUSEA VOMITING DENIES ANY BLACK STOOL OR RED BLOOD IN THE STOOL Review of Systems Review of Systems: All systems reviewed & are unremarkable except as noted in HPI and below Constitutional: Constitutional: Denies chills, Denies fatigue, Denies fever(s), Denies headache(s), Denies malaise, Denies weight gain and Denies weight loss Eyes: Eyes: Denies change in vision ENT: Denies dizziness, Denies headache(s) and Reports other (No change in hearing) Cardiovascular: Cardiovascular: Denies chest pain, Denies dyspnea and Reports other (denies palpitations, denies orthopnea) Respiratory: Respiratory: Denies cough, Denies dyspnea and Reports other (denies sputum production, denies hemoptysis) Gastrointestinal: Gastrointestinal: Reports as per HPI Genitourinary: Genitourinary: Denies hematuria, Denies dysuria and Denies urinary incontinence Musculoskeletal: Musculoskeletal: Reports other (denies extremity edema, denies myalgia) Integumentary/Breasts: Skin/Breast: Denies new lesions and Denies rash Neurologic: Denies dizziness, Denies headache(s) and Denies seizure-like activity Endocrine: Endocrine: Denies fatigue Hematologic/Lymphatic: Hematologic/Lymphatic: Denies easy bleeding and Denies easy bruising PMFSH Past Medical History Medical History (Updated 04/06/25 @ 17:56 by Yogi Mascorro MD) Seizure disorder Immobility Rheumatoid arthritis PAF (paroxysmal atrial fibrillation) Fibromyalgia Gout Obesity hypoventilation syndrome SHELDON (obstructive sleep apnea) Chronic respiratory failure with hypoxia Atrial fibrillation COPD (chronic obstructive pulmonary disease) Diastolic heart failure Bipolar 1 disorder Anxiety and depression Left renal mass suspected malignancy Nephrolithiasis End stage renal disease ESRD on dialysis CHF (congestive heart failure) HTN (hypertension) COPD (chronic obstructive pulmonary disease) Surgical History Surgical History History of cystoscopy S/P ureteral reimplantation History of hysterectomy S/P hemodialysis catheter insertion Family History Family History Father Lung cancer Grandparent Colon cancer Mother Congestive heart failure Social History Social History Smoking packs per day: 0.5 Smoking cigarettes per day: 10.0 Years smoked: 10 Smoking pack-years: 5.00 Smoking status: Former smoker Tobacco type: cigarettes Second hand tobacco smoke exposure: Yes Alcohol intake: never Substance use: never Substance use type: does not use Last use: 06/13/21 Do You Feel Safe in your Home?: Yes Lack of Transportation: No Lack of Food: Never True Current Housing: I Have Housing Concerned About Future Housing: No Difficulty Paying Gas/Electric Bills: No Difficulty Paying for Meds: No Currently Unemployed: No Education: High School Diploma/GED Difficulty w/ Childcare or Family Care: No Gender identity (if verbalized by the patient): Female Sexual Orientation (if Verbalized by the Patient): Straight or Heterosexual Spiritual care concerns: No Meds Home Medications and Allergies Home Medications ?Medication ?Instructions ?Recorded ?Confirmed ?Type atorvastatin 40 mg tablet 40 mg PO QHS 06/30/21 04/07/25 History ferrous sulfate 325 mg (65 mg 325 mg PO DAILY 06/30/21 04/07/25 History iron) tablet fluticasone propionate 50 1 spray intranasal DAILY 06/30/21 04/07/25 History mcg/actuation nasal spray,suspension hydrocodone 5 mg-acetaminophen 325 1 tablet PO Q8H PRN Pain Rated 4-6 06/30/21 04/07/25 History mg tablet levetiracetam 500 mg tablet 500 mg PO BID 06/30/21 04/07/25 History acetaminophen 325 mg tablet 650 mg PO Q6H PRN fever or pain 01/13/25 04/07/25 History (Aminofen) albuterol 90 mcg-budesonide 80 2 inh inhalation .every 6 hours 01/13/25 04/07/25 History mcg/actuation HFA aerosol inhaler PRN shortness of breath or wheezing (Airsupra) baclofen 5 mg tablet 5 mg PO BID 01/13/25 04/07/25 History cholecalciferol (vitamin D3) 50 2,000 unit PO DAILY 01/13/25 04/07/25 History mcg (2,000 unit) capsule diclofenac sodium 1 % topical gel 1 ea topical Q6H PRN pain 01/13/25 04/06/25 History (Arthritis Pain (diclofenac)) diphenhydramine HCl 25 mg capsule 50 mg PO Q8H PRN allergy symptoms 01/13/25 04/07/25 History (Aler-Cap) ergocalciferol (vitamin D2) 1,250 1,250 mcg PO WEEKLY 01/13/25 04/07/25 History mcg (50,000 unit) capsule escitalopram oxalate 10 mg tablet 20 mg PO DAILY 01/13/25 04/07/25 History hydroxyzine HCl 25 mg tablet 25 mg PO TID 01/13/25 04/07/25 History ipratropium 0.5 mg-albuterol 3 mg 3 ml inhalation Q2H PRN shortness 01/13/25 04/07/25 History (2.5 mg base)/3 mL nebulization of breath soln lactulose 10 gram/15 mL oral 20 g PO DAILY 01/13/25 04/07/25 History solution (Enulose) gabapentin 100 mg capsule 100 mg PO BID 04/06/25 04/07/25 History insulin aspart U-100 100 unit/mL 1 sliding scale dose subcut 04/06/25 04/07/25 History (3 mL) subcutaneous pen (Novolog .before meals FlexPen U-100 Insulin aspart) midodrine 5 mg tablet 5 mg PO .COMPLEX 04/06/25 04/07/25 History montelukast 10 mg tablet 10 mg PO DAILY 04/06/25 04/07/25 History nystatin 100,000 unit/gram topical 1 applic topical BID 04/06/25 04/07/25 History powder ondansetron HCl 4 mg tablet 4 mg PO Q8H PRN nausea and vomiting 04/06/25 04/07/25 History oxcarbazepine 150 mg tablet 150 mg PO BID 04/06/25 04/07/25 History quetiapine 25 mg tablet 50 mg PO HS 04/06/25 04/07/25 History trazodone 50 mg tablet 50 mg PO HS 04/06/25 04/07/25 History cyanocobalamin (vitamin B-12) 1,000 mcg PO DAILY 04/07/25 04/07/25 History 1,000 mcg tablet (Vitamin B-12) [id number] 2.5 15 ml PO Q6H PRN cough 04/07/25 04/07/25 History mg-5 mg-50 mg/5 mL oral liquid (Robitussin Cough and Cold CF) Allergies Allergy/AdvReac Type Severity Reaction Status Date / Time Penicillins Allergy Severe Anaphylaxis Verified 04/07/25 00:09 Vital Signs Vital Signs - 24 hr 04/07/25 10:45 04/07/25 11:00 04/07/25 11:15 Temperature Pulse Rate 68 70 73 Respiratory Rate Blood Pressure 110/52 L 113/49 L 116/47 L Pulse Oximetry Oxygen Delivery Oxygen Flow Rate Fraction of Inspired Oxygen 04/07/25 11:30 04/07/25 11:45 04/07/25 12:00 Temperature Pulse Rate 69 68 70 Respiratory Rate Blood Pressure 97/45 L 101/42 L 95/46 L Pulse Oximetry Oxygen Delivery Oxygen Flow Rate Fraction of Inspired Oxygen 04/07/25 12:00 04/07/25 12:00 04/07/25 12:15 Temperature 98.4 F Pulse Rate 69 71 70 Respiratory Rate 16 Blood Pressure 109/58 L 92/40 L Pulse Oximetry 98 Oxygen Delivery Oxygen Flow Rate Fraction of Inspired Oxygen 04/07/25 12:30 04/07/25 12:45 04/07/25 13:00 Temperature Pulse Rate 70 74 67 Respiratory Rate Blood Pressure 96/45 L 102/40 L 103/46 L Pulse Oximetry Oxygen Delivery Oxygen Flow Rate Fraction of Inspired Oxygen 04/07/25 13:15 04/07/25 13:32 04/07/25 13:38 Temperature 98.6 F Pulse Rate 67 69 71 Respiratory Rate 20 Blood Pressure 100/41 L 100/51 L 100/50 L Pulse Oximetry 99 Oxygen Delivery Oxygen Flow Rate Fraction of Inspired Oxygen 04/07/25 14:00 04/07/25 14:00 04/07/25 16:00 Temperature Pulse Rate 71 Respiratory Rate Blood Pressure Pulse Oximetry 97 100 Oxygen Delivery Nasal Cannula Nasal Cannula Oxygen Flow Rate 3 3 Fraction of Inspired Oxygen 04/07/25 16:00 04/07/25 16:00 04/07/25 18:00 Temperature 98.8 F Pulse Rate 74 74 66 Respiratory Rate 16 Blood Pressure 108/59 L Pulse Oximetry 100 Oxygen Delivery Oxygen Flow Rate Fraction of Inspired Oxygen 04/07/25 19:36 04/07/25 20:00 04/07/25 21:11 Temperature 98.4 F Pulse Rate 66 64 Respiratory Rate 18 Blood Pressure 123/42 L Pulse Oximetry 100 97 Oxygen Delivery Nasal Cannula Oxygen Flow Rate 3 Fraction of Inspired Oxygen 04/07/25 21:12 04/07/25 21:17 04/07/25 21:43 Temperature Pulse Rate 69 71 66 Respiratory Rate 18 18 18 Blood Pressure Pulse Oximetry 100 Oxygen Delivery Nasal Cannula Oxygen Flow Rate 3 Fraction of Inspired Oxygen 04/07/25 22:00 04/07/25 23:45 04/07/25 23:45 Temperature Pulse Rate 68 66 69 Respiratory Rate 24 H 16 Blood Pressure Pulse Oximetry 96 98 Oxygen Delivery BiPAP BiPAP Oxygen Flow Rate Fraction of Inspired Oxygen 04/08/25 00:00 04/08/25 00:00 04/08/25 01:54 Temperature 98.6 F Pulse Rate 69 70 60 Respiratory Rate 16 Blood Pressure 111/35 L Pulse Oximetry 98 Oxygen Delivery Oxygen Flow Rate Fraction of Inspired Oxygen 04/08/25 02:44 04/08/25 02:45 04/08/25 02:57 Temperature Pulse Rate 59 L 59 L 60 Respiratory Rate 24 H 24 H 24 H Blood Pressure Pulse Oximetry 96 Oxygen Delivery BiPAP Oxygen Flow Rate Fraction of Inspired Oxygen 04/08/25 03:26 04/08/25 04:00 04/08/25 04:10 Temperature 98.0 F Pulse Rate 66 62 66 Respiratory Rate 17 17 Blood Pressure 113/47 L Pulse Oximetry 99 99 Oxygen Delivery BiPAP Oxygen Flow Rate Fraction of Inspired Oxygen 04/08/25 05:00 04/08/25 06:00 04/08/25 07:31 Temperature Pulse Rate 68 60 67 Respiratory Rate 24 H 20 Blood Pressure Pulse Oximetry 98 Oxygen Delivery BiPAP Oxygen Flow Rate Fraction of Inspired Oxygen 04/08/25 07:31 04/08/25 07:32 04/08/25 07:34 Temperature 99.3 F Pulse Rate 76 Respiratory Rate 16 Blood Pressure 118/36 L 108/40 L Pulse Oximetry 99 97 Oxygen Delivery Nasal Cannula Oxygen Flow Rate 3 Fraction of Inspired Oxygen Exam Const: General: cooperative; No acute distress Orientation/consciousness: patient oriented x3 HENMT: Head: normal to inspection Neck: Neck: supple Resp: Auscultation: clear to auscultation bilaterally Cardio: Rate: regular rate Rhythm: regular rhythm GI: Inspection: non-distended GI Palp: Yes Soft to palpation, No Tenderness to palpation present (GI) and No Palpable mass present Auscultation: normal bowel sounds Rectal Exam: deferred Skin: General skin exam: no rashes or lesions noted Neuro: General: patient oriented x3 Extrem: General: no edema Results Labs 04/08/25 03:54 04/08/25 03:54 Labs: Short CBC 04/08/25 Range/Units 03:54 WBC 4.3 L (4.5-10.0) K/mm3 Hgb 7.6 L (12.0-15.0) g/dL Hct 25.6 L (37.0-47.0) % Plt Count 148 L (150-375) k/mm3 [facility] 04/08/25 03:54 Sodium 129 L Potassium 3.9 Chloride 96 L Carbon Dioxide 33 H BUN 22 H D Creatinine 2.82 H Glucose 123 H Calcium 8.6 Liver Function 04/08/25 Range/Units 03:54 Albumin 3.3 L (3.5-5.1) g/dL
[2025-04-08] MEDS: CIPROFLOXACIN 400 MG/D5W 200ML 200 ML 200 MG IVPB (13:20)
--- NOTE | 2025-04-08 14:47 | P.PNIM_ITS ---
Progress Note: A&P Assessment and Plan (1) Pulmonary edema: Code(s): J81.1 - Chronic pulmonary edema Status: Acute Assessment and Plan: Urgent dialysis s/p BiPAP on nasal cannula oxygen continue dialysis nephrology on board (2) Hyperkalemia: Code(s): E87.5 - Hyperkalemia Status: Acute Assessment and Plan: Dialysis today monitor (3) End stage renal disease: Code(s): N18.6 - End stage renal disease Status: Chronic Assessment and Plan: HD dialysis on Wednesday Nephrology following, on dialysis (4) Acute hypercapnic respiratory failure: Code(s): J96.02 - Acute respiratory failure with hypercapnia Status: Acute Assessment and Plan: S/p BiPAP on dialysis Now on baseline oxygen 3 liters resp failure improved with dialysis, DVT negative, PE not suspected anymore Heparin discontinued and monitor resp failure nephrology following (5) Anemia: Qualifiers: Anemia type: due to chronic kidney disease Chronic kidney disease stage: on chronic dialysis Qualified Code(s): N18.6 - End stage renal disease; D63.1 - Anemia in chronic kidney disease; Z99.2 - Dependence on renal dialysis Code(s): D64.9 - Anemia, unspecified Status: Acute Assessment and Plan: Erythropoietin Iron panel pending, Hb 7.6 Isat 46, EPO per Nephrology monitor h and h (6) HTN (hypertension): Qualifiers: Hypertension type: unspecified Qualified Code(s): I10 - Essential (primary) hypertension Code(s): I10 - Essential (primary) hypertension Status: Chronic Assessment and Plan: Managed by dialysis (7) CHF (congestive heart failure): Qualifiers: Heart failure chronicity: unspecified Heart failure type: unspecified Qualified Code(s): I50.9 - Heart failure, unspecified Code(s): I50.9 - Heart failure, unspecified Status: Acute Assessment and Plan: IV Lasix b.i.lynn. Harry catheter for aggressive diuresis (8) COPD (chronic obstructive pulmonary disease): Qualifiers: COPD type: unspecified COPD Qualified Code(s): J44.9 - Chronic obstructive pulmonary disease, unspecified Code(s): J44.9 - Chronic obstructive pulmonary disease, unspecified Status: Acute Assessment and Plan: DuoNebs (9) Seizures: Code(s): R56.9 - Unspecified convulsions Status: Acute Assessment and Plan: Lio Hernandez (10) Bipolar 1 disorder: Code(s): F31.9 - Bipolar disorder, unspecified Status: Acute Assessment and Plan: Continue Seroquel Plan Possible UTI Urine and blood culture Ciprofloxacin Monitor Possible GI bleed FOBT positive continue Protonix and Octreotide GI on board, recommended US liver and cardiac eval ECHO adn Us liver ordered cardiology consulted monitor packaging coordinator consulted for possible placement DVT prophylaxis on SCDs Subjective Date/time seen: 04/08/25 14:47 Interval history: Comfortable at bedside Review of Systems Review of Systems: 12 systems were reviewed and are negativ e except for as per HPI. Exam Narrative: General: Chronically ill HEENT: normocephalic, atraumatic. Mucous membranes moist. EOMI, PERRLA, b ilateral sclera anicteric, no conjunctival injection. Neck supple without JVD, lymphadenopathy, or bruit. Respiratory: clear to ascultation bilaterally. No rales/rhonic/wheezes. Cardiovascular: Regular rate and rhythm, normal S1-S2 upon ascultation. No murmurs, rubs, or clicks. PMI is nondisplaced, capillary refill less than 3 second. Abdomen: Obese edematous Soft, round, no pulsatile masses, nondistended and nontender. No rebound, no guarding. No CVA tenderness, no hepatosplenomegaly. Bowel sounds present to all four quadrants. No high pitch or tinkling sounds, resonant to percussion. Fissure and abdominal fold Extremities: No cyanosis, clubbing, or edema present. Pulses are palpable 2/2. Active ROM to all four extremities. Neuro: Alert and orientated x 4. PERRLA. Cranial nerves 2-12 intact without focal deficit. Skin: Warm, dry, and intact, without rash, erythema, or lesion. Psych: pleasant, cooperative, normal speech, normal affect, no hallucinations, no dysarthia Objective Data Vital Signs Vital Signs: Vital Signs - 24 hr 04/07/25 16:00 04/07/25 16:00 04/07/25 16:00 Temperature 98.8 F Pulse Rate 74 74 Respiratory Rate 16 Blood Pressure 108/59 L Pulse Oximetry 100 100 Oxygen Delivery Nasal Cannula Oxygen Flow Rate 3 Fraction of Inspired Oxygen 04/07/25 18:00 04/07/25 19:36 04/07/25 20:00 Temperature 98.4 F Pulse Rate 66 66 64 Respiratory Rate 18 Blood Pressure 123/42 L Pulse Oximetry 100 Oxygen Delivery Oxygen Flow Rate Fraction of Inspired Oxygen 04/07/25 21:11 04/07/25 21:12 04/07/25 21:17 Temperature Pulse Rate 69 71 Respiratory Rate 18 18 Blood Pressure Pulse Oximetry 97 Oxygen Delivery Nasal Cannula Oxygen Flow Rate 3 Fraction of Inspired Oxygen 04/07/25 21:43 04/07/25 22:00 04/07/25 23:45 Temperature Pulse Rate 66 68 66 Respiratory Rate 18 24 H Blood Pressure Pulse Oximetry 100 96 Oxygen Delivery Nasal Cannula BiPAP Oxygen Flow Rate 3 Fraction of Inspired Oxygen 04/07/25 23:45 04/08/25 00:00 04/08/25 00:00 Temperature 98.6 F Pulse Rate 69 69 70 Respiratory Rate 16 16 Blood Pressure 111/35 L Pulse Oximetry 98 98 Oxygen Delivery BiPAP Oxygen Flow Rate Fraction of Inspired Oxygen 04/08/25 01:54 04/08/25 02:44 04/08/25 02:45 Temperature Pulse Rate 60 59 L 59 L Respiratory Rate 24 H 24 H Blood Pressure Pulse Oximetry 96 Oxygen Delivery BiPAP Oxygen Flow Rate Fraction of Inspired Oxygen 04/08/25 02:57 04/08/25 03:26 04/08/25 04:00 Temperature 98.0 F Pulse Rate 60 66 62 Respiratory Rate 24 H 17 Blood Pressure 113/47 L Pulse Oximetry 99 Oxygen Delivery Oxygen Flow Rate Fraction of Inspired Oxygen 04/08/25 04:10 04/08/25 05:00 04/08/25 06:00 Temperature Pulse Rate 66 68 60 Respiratory Rate 17 24 H Blood Pressure Pulse Oximetry 99 98 Oxygen Delivery BiPAP BiPAP Oxygen Flow Rate Fraction of Inspired Oxygen 04/08/25 07:31 04/08/25 07:31 04/08/25 07:32 Temperature 99.3 F Pulse Rate 67 76 Respiratory Rate 20 16 Blood Pressure 118/36 L 108/40 L Pulse Oximetry 99 Oxygen Delivery Oxygen Flow Rate Fraction of Inspired Oxygen 04/08/25 07:34 04/08/25 08:00 04/08/25 12:53 Temperature Pulse Rate 77 71 Respiratory Rate 20 Blood Pressure Pulse Oximetry 97 Oxygen Delivery Nasal Cannula Oxygen Flow Rate 3 Fraction of Inspired Oxygen 04/08/25 13:01 Temperature Pulse Rate 69 Respiratory Rate 20 Blood Pressure Pulse Oximetry Oxygen Delivery Oxygen Flow Rate Fraction of Inspired Oxygen Intake/Output Intake/Output: Intake & Output 04/05/25 04/06/25 04/07/25 04/08/25 23:59 23:59 23:59 23:59 Intake Total 162.3 1022.2 360 Output Total 3000 3150 125 Balance -2837.7 -2127.8 235 Meds/Results Medications: Active Medications Generic Name Dose Route Start Last Admin Trade Name Freq PRN Reason Stop Dose Admin Acetaminophen 650 mg 04/06/25 17:25 Acetaminophen 325 Mg Tablet PO Q4H PRN Mild Pain (1-3) or Fever Hydrocodone Bitart/Acetaminophen 1 tab 04/06/25 17:25 04/07/25 22:48 Hydrocodone/Acetaminophen (*Crx) 5-325 Mg Tablet PO 1 tab Q4H PRN Administration Moderate Pain (4-6) Albuterol/Ipratropium 3 ml 04/06/25 14:00 04/08/25 12:53 Ipratropium 0.5 Mg/Albuterol Sulfate 2.5 Mg Ampul.Neb 3 Ml INHALATION 3 ml Q6HRT MARLEEN Administration Atorvastatin Calcium 40 mg 04/06/25 21:00 04/07/25 21:50 Atorvastatin 40 Mg Tablet PO 40 mg QHS MARLEEN Administration Dextrose 12.5 gm 04/07/25 10:55 Dextrose 50% 25 Gm/50 Ml Syringe IV PUSH PRN PRN Hypoglycemia Protocol Docusate Sodium 100 mg 04/07/25 09:00 04/08/25 09:21 Docusate Sodium 100 Mg Capsule PO 100 mg BID MARLEEN Administration Epoetin Ilya-epbx 10,000 units 04/09/25 07:00 Epoetin Ilya-Epbx 10,000 Units/Ml Vial IV PUSH 04/09/25 07:01 ONCE ONE Ferrous Sulfate 325 mg 04/07/25 09:00 04/08/25 09:21 Ferrous Sulfate [address] BY MOUTH 325 mg DAILY MARLEEN Administration Furosemide 40 mg 04/06/25 20:45 04/08/25 09:21 Furosemide Inj 40 Mg/4 Ml Vial IV PUSH 40 mg BID MARLEEN Administration Gabapentin 100 mg 04/07/25 09:00 04/08/25 09:21 Gabapentin 100 Mg Capsule PO 100 mg BID MARLEEN Administration Glucose 15 gm 04/07/25 10:55 Glucose Oral Gel 15 Gm Of Glucse In 37.5 Gm Tube PO PRN PRN Hypoglycemia Protocol Heparin Sodium (Porcine) 8,500 units 04/06/25 10:59 04/06/25 22:29 Heparin Sodium 5,000 Units/Ml Vial IV PUSH 8,500 units PRN PRN Administration aPTT less than 55 seconds Heparin Sodium (Porcine) 4,000 units 04/06/25 10:59 Heparin Sodium 5,000 Units/Ml Vial IV PUSH PRN PRN aPTT 55 - 70 seconds Hydroxyzine HCl 25 mg 04/07/25 04:05 04/08/25 13:20 Hydroxyzine Hcl 25 Mg Tablet PO 25 mg TID MARLEEN Administration Heparin Sodium/Dextrose 25,000 units in 250 mls @ 0 mls/hr 04/06/25 11:20 04/08/25 05:23 Heparin Sodium/D5w 100 Units/Ml IV CONT Not Given .Q0M MARLEEN Protocol 0 UNITS/HR Dextrose 1,000 mls @ 100 mls/hr 04/07/25 10:55 Dextrose 5% 1,000 Ml IVPB PRN PRN Hypoglycemia Protocol Ciprofloxacin/Dextrose 200 mls @ 200 mls/hr 04/07/25 12:00 04/08/25 13:20 Cipro 400 Mg/D5w 200 Ml IVPB 200 mls/hr Q24H MARLEEN Administration Albumin Human 50 mls @ 999 mls/hr 04/08/25 09:28 Albutein IVPB 04/09/25 09:27 Q10M PRN HYPOTENSION Insulin Aspart 2 - 5 units 04/07/25 12:00 04/08/25 12:38 Insulin Aspart (*Bkc) 100 Units/Ml SUB-Q Not Given TIDWM MARLEEN Protocol Insulin Aspart 1 - 2 units 04/07/25 21:00 04/07/25 22:44 Insulin Aspart (*Bkc) 100 Units/Ml SUB-Q Not Given HS MARLEEN Protocol Lactulose 30 gm 04/07/25 09:00 04/08/25 09:29 Lactulose 20 Gm/30 Ml Udc PO Not Given DAILY MARLEEN Levetiracetam 500 mg 04/07/25 03:25 04/08/25 09:22 Levetiracetam 500 Mg Tablet PO 500 mg Q12HR MARLEEN Administration Midodrine 10 mg 04/07/25 09:51 04/07/25 12:11 Midodrine Hcl 10 Mg Tablet PO 10 mg PRN PRN Administration half hour before dialysis and then 2 hours into dialysis Mupirocin 1 applic 04/07/25 11:30 04/08/25 09:22 Mupirocin 2% Oint 22 Gm Tube EACH NARE 04/11/25 21:01 1 applic Q12HR MARLEEN Administration Ondansetron HCl 4 mg 04/06/25 17:25 Ondansetron Inj 4 Mg/2 Ml Vial IV PUSH Q6H PRN Nausea And Vomiting Oxcarbazepine 150 mg 04/07/25 03:25 04/08/25 09:22 Oxcarbazepine 150 Mg Tablet PO 150 mg Q12HR MARLEEN Administration Pantoprazole Sodium 40 mg 04/07/25 21:00 04/08/25 09:21 Pantoprazole Sodium Iv 40 Mg Vial IV PUSH 40 mg Q12HR MARLEEN Administration Perflutren Lipid Microsphere 0 ml 04/06/25 19:02 Perflutren Lipid Microspheres 1.5 Ml Vial Diluted To 10 Ml Total Volume IV PUSH 04/09/25 19:02 ONCE PRN adequate visualization Protocol Perflutren Lipid Microsphere 0 ml 04/07/25 14:02 Perflutren Lipid Microspheres 1.5 Ml Vial Diluted To 10 Ml Total Volume IV PUSH 04/10/25 14:02 ONCE PRN adequate visualization Protocol Quetiapine Fumarate 50 mg 04/07/25 21:00 04/07/25 21:51 Quetiapine Fumarate 25 Mg Tablet PO 50 mg HS MARLEEN Administration Trazodone HCl 50 mg 04/06/25 21:00 04/07/25 21:51 Trazodone Hcl 50 Mg Tablet PO 50 mg HS MARLEEN Administration Radiology Results: ITS Impressions Chest X-Ray 04/06/25 12:18 Impression: 1: Cardiomegaly with pulmonary edema. Venous Doppler Study 04/07/25 18:31 IMPRESSION: Patent bilateral lower extremity veins. No evidence of deep venous thrombosis. Labs Labs: Laboratory Results - last 24 hr 04/07/25 04/07/25 04/07/25 15:54 16:50 20:31 WBC RBC Hgb Hct MCV MCH MCHC RDW Plt Count MPV APTT Sodium Potassium Chloride Carbon Dioxide Anion Gap BUN Creatinine Estim Creat Clear Calc Estimated GFR Glucose POC Capillary Glucose 142 H 117 H Calcium Phosphorus Albumin Stl Occult Blood (IFOB) Positive H 04/08/25 04/08/25 04/08/25 03:54 07:23 11:37 WBC 4.3 L RBC 2.68 L Hgb 7.6 L Hct 25.6 L MCV 95.5 MCH 28.4 MCHC 29.7 L RDW 15.4 H Plt Count 148 L MPV 8.9 APTT 29.3 Sodium 129 L Potassium 3.9 Chloride 96 L Carbon Dioxide 33 H Anion Gap 0 L BUN 22 H D Creatinine 2.82 H Estim Creat Clear Calc 29 Estimated GFR 17 L Glucose 123 H POC Capillary Glucose 119 H 147 H Calcium 8.6 Phosphorus 3.5 Albumin 3.3 L Stl Occult Blood (IFOB) Quality VTE Prophylaxis VTE prophylaxis: mechanical ordered
--- NOTE | 2025-04-08 15:03 | PCOTNOTE ---
Pt. is dependent at baseline, shelter [facility]. Called hospitalist lashaun agreed to cancelation of order.
--- NOTE | 2025-04-08 15:47 | PCPTNOTE ---
[facility] OT requested cancel orders for PT and OT due to Estuardo lift at baseline, skilled PT & OT not indicated.
[2025-04-08] MEDS: HYDROcodone/acetaminophen (*CRX) 5-325 MG TABLET 1 TAB PO ×2 (16:44→20:59)
[2025-04-08] MEDS: ATORVASTATIN 40 MG TABLET PO (20:58)
[2025-04-09] VITALS (35 sets, daily range): BP systolic 101–158; BP diastolic 40–84; PULSE 66–85; RESP 18–27; TEMP 36.1–37; O2SAT 93–100
--- NOTE | 2025-04-09 | ECHO_ITS ---
Patient Info Name: Cathy Greene Age: 65 years : 1960 Gender: Female Ht: 67 in Wt: 366 lbs BSA: 2.91 m2 HR: 72 bpm BP: 135 / 44 mmHg Technical Quality: Poor Exam Date: 04/09/2025 2:48 PM Patient Status: I Admit Date: 04/06/2025 Exam Type: CA echo dop color flow w con Complete two-dimensional, color flow and Doppler transthoracic echocardiogram is performed with contrast to opacify the left ventricle and to improve the deliniation of the left ventricle endocardial borders. Staff Referring Physician: Petey Simon Attending Provider: Mason Durham MD Contrast/Agitated Saline Contrast/Ag. Saline: Definity Amount: 3.00 ml Administered By: Gay Ovalle Existing IV Access: Yes IV Access Condition: patent with no signs of infiltration Reason for Poor Study: patient body habitus Summary 1. There is normal biventricular size and systolic function. 2. The valves are not well visualized in this study for overall appears to not have any significant valvular abnormalities in the visualized acoustic windows. Left Ventricle The left ventricle is normal in size and systolic function. There is moderate concentric left ventricular hypertrophy. The left ventricular ejection fraction is visually estimated to be 65-70%. Right Ventricle The right ventricle is normal in size and systolic function. Left Atria The left atrium is normal size. Right Atria The right atrium is normal size. Atrial Septum The atrial septum is not well visualized. Aortic Valve The aortic valve is likely trileaflet and opens well. There is no aortic regurgitation. Pulmonic Valve The pulmonic valve is not well visualized. There is no color Doppler evidence of pulmonic valve regurgitation. Mitral Valve The mitral valve is grossly normal. Tricuspid Valve The tricuspid valve is grossly normal. Pericardium/Pleural Pericardium is normal in appearance with no evidence for significant pericardial effusion. Inferior Vena Cava Inferior vena cava is not well visualized. Aorta The aortic root at the level of the sinus of Valsalva measures 3.1 cm in diameter. Left Ventricular Outflow Tract Name Value Normal LVOT 2D LVOT Diameter 2.0 cm LVOT Doppler LVOT Peak Velocity 105 cm/s LVOT Peak Gradient 4 mmHg LVOT Mean Gradient 2 mmHg LVOT VTI 25 cm LVOT VTI/AV VTI Ratio 0.9 LVOT Stroke Volume 75 ml LVOT CO 5.4 l/min LVOT CI 1.8 l/min/m2 Pulmonic Valve Name Value Normal RVOT Doppler RVOT Peak Velocity 102 cm/s RVOT Peak Gradient 4 mmHg PV Doppler PV Peak Velocity 119 cm/s PV Peak Gradient 6 mmHg Mitral Valve Name Value Normal MV Diastolic Function MV E Peak Velocity 95 cm/s MV A Peak Velocity 97 cm/s MV E/A 1.0 MV Decel Time (PW) 152 ms Tricuspid Valve Name Value Normal TV Regurgitation Doppler TR Peak Velocity 229 cm/s TR Peak Gradient 18 mmHg Estimated PAP/RSVP RA Pressure 10 mmHg <=5 PA Systolic Pressure 31 mmHg <36 RV Systolic Pressure 31 mmHg <36 Aorta Name Value Normal Ascending Aorta Ao Root Diameter (MM) 3.1 cm Ao Root Diam Index (MM) 1.1 cm/m2 Aortic Valve Name Value Normal AV Doppler AV Peak Velocity 141 cm/s AV Peak Gradient 8 mmHg AV Mean Gradient 4 mmHg AV VTI 27 cm AV Area (Cont Eq VTI) 2.7 cm2 >=3.0 AV Area (Cont Eq Neri) 2.3 cm2 AV DI (Neri) 0.75 AV Regurgitation 2D LVOT Area 3.0 cm2 Ventricles Name Value Normal LV Dimensions 2D/MM IVS Diastolic Thickness (2D) 1.5 cm 0.6-1.0 LVID Diastole (2D) 5.0 cm 3.8-5.2 LVIW Diastolic Thickness (2D) 1.6 cm 0.6-0.9 LVID Systole (2D) 3.4 cm 2.2-3.5 LVOT Diameter 2.0 cm LV Mass (2D Cubed) 346.29 g 67.00-162.00 LV Mass Index (2D Cubed) 119 g/m2 43-95 Relative Wall Thickness (2D) 0.65 <=0.42 LV Fractional Shortening/Ejection Fraction 2D/MM LV Fractional Shortening (2D) 33 % 27-45 LV EF (2D Teichholz) 61 % LV Diastolic Volume (4C MOD) 101 ml LV EF (4C MOD) 78 % LV Diastolic Volume (2C MOD) 192 ml LV EF (2C MOD) 79 % LV Diastolic Volume (BP MOD) 139 ml 46-106 LV Diastolic Volume Index (BP MOD) 48 ml/m2 29-61 LV Systolic Volume (BP MOD) 31 ml 14-42 LV Systolic Volume Index (BP MOD) 11 ml/m2 8-24 LV EF (BP MOD) 78 % 54-74 LV Diastolic Length (4C) 8.3 cm LV Systolic Length (4C) 6.3 cm LV Stroke Volume (4C MOD) 79 ml Atria Name Value Normal LA Dimensions LA Dimension (MM) 4.7 cm 2.7-3.8 LA Volume (4C A-L) 143 ml LA Volume (BP A-L) 122 ml RA Dimensions RA Systolic Major [place] Length (4C) 5.7 cm 2.2-2.8 RA Area (4C) 20.1 cm2 <=18.0 Report Signatures
[2025-04-09] MEDS: IPRATROPIUM 0.5 MG/ALBUTEROL SULFATE 2.5 MG AMPUL.NEB 3 ML INHALATION ×4 (01:20→20:59)
[2025-04-09 05:24] LABS: Hematocrit 26.8 % (37.0-47.0); Hemoglobin 7.7 g/dL (12.0-15.0); Immature Granulocyte Percent A 0.7 % (0-0.5); Lymphocytes Absolute Auto 0.90 K/mm3 (0.9-3.2); Mean Corpuscular HGB Conc 28.7 g/dl (32-36); Mean Corpuscular Hemoglobin 28.3 pg (26-34); Mean Corpuscular Volume 98.5 fl (80-100); Nucleated Red Blood Cells Absolute Auto 0.000 K/mm3 (0.0-0.012); Nucleated Red Blood Cells Perc 0.0 % (0.0-0.2); Platelet Count Result 140 k/mm3 (150-375); Red Blood Count 2.72 M/mm3 (4.2-5.4); White Blood Count 4.1 K/mm3 (4.5-10.0)
[2025-04-09 05:33] LABS: Partial Thromboplastin Time 27.4 Seconds (22.3-36.8)
[2025-04-09 05:47] LABS: Alanine Aminotransferase 14 U/L (6-35); Albumin Level 3.4 g/dL (3.5-5.1); Alkaline Phosphatase 82 U/L (38-126); Anion Gap 8 mmol/L (4-12); Aspartate Amino Transferase 21 U/L (14-36); Bilirubin,Total 0.3 mg/dL (0.2-1.3); Blood Urea Nitrogen 32 mg/dL (7-17); Calcium 9.2 mg/dL (8.4-10.2); Carbon Dioxide 31 mmol/L (22-30); Chloride 99 mmol/L (98-107); Estimated CRCL calculation 19 ml/min; Estimated Glomerular Filt Rate 11; Glucose 127 mg/dL (65-110); Magnesium 1.9 mg/dL (1.6-2.3); Potassium 4.1 mmol/L (3.4-5.0); Sodium 138 mmol/L (137-145); Total Protein 6.4 g/dL (6.3-8.2)
[2025-04-09] MEDS: MIDODRINE HCL 10 MG TABLET PO ×2 (08:03→10:44)
--- NOTE | 2025-04-09 09:41 | P.PNIM_ITS ---
Progress Note: A&P Assessment and Plan (1) Pulmonary edema: Code(s): J81.1 - Chronic pulmonary edema Status: Acute Assessment and Plan: Urgent dialysis s/p BiPAP baseline nasal [place] oxygen 3 liters continue dialysis nephrology on board (2) Hyperkalemia: Code(s): E87.5 - Hyperkalemia Status: Acute Assessment and Plan: resolved K 4.1 on dialysis (3) End stage renal disease: Code(s): N18.6 - End stage renal disease Status: Chronic Assessment and Plan: HD dialysis on Wednesday Nephrology following, on dialysis (4) Acute hypercapnic respiratory failure: Code(s): J96.02 - Acute respiratory failure with hypercapnia Status: Acute Assessment and Plan: S/p BiPAP on dialysis Now on baseline oxygen 3 liters resp failure improved with dialysis, DVT negative, PE not suspected anymore Heparin discontinued and monitor resp failure nephrology following (5) Anemia: Qualifiers: Anemia type: due to chronic kidney disease Chronic kidney disease stage: on chronic dialysis Qualified Code(s): N18.6 - End stage renal disease; D63.1 - Anemia in chronic kidney disease; Z99.2 - Dependence on renal dialysis Code(s): D64.9 - Anemia, unspecified Status: Acute Assessment and Plan: Erythropoietin Iron panel pending, Hb 7.7 Isat 46, EPO per Nephrology monitor h and h (6) HTN (hypertension): Qualifiers: Hypertension type: unspecified Qualified Code(s): I10 - Essential (primary) hypertension Code(s): I10 - Essential (primary) hypertension Status: Chronic Assessment and Plan: Managed by dialysis (7) CHF (congestive heart failure): Qualifiers: Heart failure chronicity: unspecified Heart failure type: unspecified Qualified Code(s): I50.9 - Heart failure, unspecified Code(s): I50.9 - Heart failure, unspecified Status: Acute Assessment and Plan: IV Lasix b.i.d. Harry catheter for aggressive diuresis (8) COPD (chronic obstructive pulmonary disease): Qualifiers: COPD type: unspecified COPD Qualified Code(s): J44.9 - Chronic obstructive pulmonary disease, unspecified Code(s): J44.9 - Chronic obstructive pulmonary disease, unspecified Status: Acute Assessment and Plan: DuoNebs (9) Seizures: Code(s): R56.9 - Unspecified convulsions Status: Acute Assessment and Plan: Continue David (10) Bipolar 1 disorder: Code(s): F31.9 - Bipolar disorder, unspecified Status: Acute Assessment and Plan: Continue Seroquel Plan Possible UTI Urine and blood culture Ciprofloxacin Monitor Possible GI bleed FOBT positive continue Protonix and Octreotide GI on board, recommended US liver and cardiac eval ECHO adn Us liver ordered cardiology consulted monitor display coordinator consulted for possible placement DVT prophylaxis on SCDs awaiting GI eval Subjective Date/time seen: 04/09/25 09:41 Interval history: Dyspneic at bedside Review of Systems Review of Systems: 12 systems were reviewed and are negativ e except for as per HPI. Exam Narrative: General: Chronically ill HEENT: normocephalic, atraumatic. Mucous membranes moist. EOMI, PERRLA, bilateral sclera anicteric, no conjunctival injection. Neck supple without JVD, lymphadenopathy, or bruit. Respiratory: clear to ascultation bilaterally. No rales/rhonic/wheezes. Cardiovascular: Regular rate and rhythm, normal S1-S2 upon ascultation. No murmurs, rubs, or clicks. PMI is nondisplaced, capillary refill less than 3 second. Abdomen: Obese edematous Soft, round, no pulsatile masses, nondistended and nontender. No rebound, no guarding. No CVA tenderness, no hepatosplenomegaly. Bowel sounds present to all four quadrants. No high pitch or tinkling sounds, resonant to percussion. Fissure and abdominal fold Extremities: No cyanosis, clubbing, or edema present. Pulses are palpable 2/2. Active ROM to all four extremities. Neuro: Alert and orientated x 4. PERRLA. Cranial nerves 2-12 intact without focal deficit. Skin: Warm, dry, and intact, without rash, erythema, or lesion. Psych: pleasant, cooperative, normal speech, normal affect, no hallucinations, no dysarthia Objective Data Vital Signs Vital Signs: Vital Signs - 24 hr 04/08/25 12:53 04/08/25 13:01 04/08/25 16:00 Temperature 98.7 F Pulse Rate 71 69 67 Respiratory Rate 20 20 20 Blood Pressure 126/47 L Pulse Oximetry 99 Oxygen Delivery Oxygen Flow Rate Fraction of Inspired Oxygen 04/08/25 19:53 04/08/25 20:51 04/08/25 20:52 Temperature 98.0 F Pulse Rate 69 69 69 Respiratory Rate 20 20 20 Blood Pressure 133/48 L Pulse Oximetry 99 96 Oxygen Delivery Nasal Cannula Oxygen Flow Rate 3 Fraction of Inspired Oxygen 32 04/09/25 01:20 04/09/25 01:23 04/09/25 04:30 Temperature 98.0 F Pulse Rate 77 75 80 Respiratory Rate 27 H 24 H 20 Blood Pressure 135/44 L Pulse Oximetry 97 97 Oxygen Delivery BiPAP Oxygen Flow Rate Fraction of Inspired Oxygen 04/09/25 04:45 04/09/25 07:43 04/09/25 07:43 Temperature Pulse Rate 70 74 Respiratory Rate 24 H 20 Blood Pressure Pulse Oximetry 97 93 Oxygen Delivery BiPAP Nasal Cannula Oxygen Flow Rate 3 Fraction of Inspired Oxygen 04/09/25 07:51 04/09/25 08:20 04/09/25 08:31 Temperature 98.4 F Pulse Rate 71 72 Respiratory Rate 20 24 H Blood Pressure 133/64 Pulse Oximetry 100 Oxygen Delivery Oxygen Flow Rate 3 Fraction of Inspired Oxygen 04/09/25 08:31 04/09/25 08:45 04/09/25 09:00 Temperature Pulse Rate 71 73 72 Respiratory Rate Blood Pressure 133/70 158/49 H 153/84 H Pulse Oximetry Oxygen Delivery Oxygen Flow Rate Fraction of Inspired Oxygen Intake/Output Intake/Output: Intake & Output 04/06/25 04/07/25 04/08/25 04/09/25 23:59 23:59 23:59 23:59 Intake Total 162.3 1022.2 835 450 Output Total 3000 3150 375 250 Balance -2837.7 -2127.8 460 200 Meds/Results Medications: Active Medications Generic Name Dose Route Start Last Admin Trade Name Freq PRN Reason Stop Dose Admin Acetaminophen 650 mg 04/06/25 17:25 Acetaminophen 325 Mg Tablet PO Q4H PRN Mild Pain (1-3) or Fever Hydrocodone Bitart/Acetaminophen 1 tab 04/06/25 17:25 04/08/25 20:59 Hydrocodone/Acetaminophen (*Crx) 5-325 Mg Tablet PO 1 tab Q4H PRN Administration Moderate Pain (4-6) Albuterol/Ipratropium 3 ml 04/06/25 14:00 04/09/25 07:43 Ipratropium 0.5 Mg/Albuterol Sulfate 2.5 Mg Ampul.Neb 3 Ml INHALATION 3 ml Q6HRT MARELEN Administration Atorvastatin Calcium 40 mg 04/06/25 21:00 04/08/25 20:58 Atorvastatin 40 Mg Tablet PO 40 mg QHS MARLEEN Administration Dextrose 12.5 gm 04/07/25 10:55 Dextrose 50% 25 Gm/50 Ml Syringe IV PUSH PRN PRN Hypoglycemia Protocol Docusate Sodium 100 mg 04/07/25 09:00 04/08/25 16:43 Docusate Sodium 100 Mg Capsule PO Not Given BID MARLEEN Epoetin Ilya-epbx 20,000 units 04/09/25 14:00 Epoetin Ilya-Epbx 20,000 Units/Ml Vial IV PUSH 04/09/25 14:01 ONCE ONE Ferrous Sulfate 325 mg 04/07/25 09:00 04/08/25 09:21 Ferrous Sulfate [address] BY MOUTH 325 mg DAILY MARLEEN Administration Furosemide 40 mg 04/06/25 20:45 04/08/25 16:36 Furosemide Inj 40 Mg/4 Ml Vial IV PUSH 40 mg BID MARLEEN Administration Gabapentin 100 mg 04/07/25 09:00 04/08/25 16:36 Gabapentin 100 Mg Capsule PO 100 mg BID MARLEEN Administration Glucose 15 gm 04/07/25 10:55 Glucose Oral Gel 15 Gm Of Glucse In 37.5 Gm Tube PO PRN PRN Hypoglycemia Protocol Hydroxyzine HCl 25 mg 04/07/25 04:05 04/08/25 16:36 Hydroxyzine Hcl 25 Mg Tablet PO 25 mg TID MARLEEN Administration Dextrose 1,000 mls @ 100 mls/hr 04/07/25 10:55 Dextrose 5% 1,000 Ml IVPB PRN PRN Hypoglycemia Protocol Ciprofloxacin/Dextrose 200 mls @ 200 mls/hr 04/07/25 12:00 04/08/25 14:20 Cipro 400 Mg/D5w 200 Ml IVPB Infused Q24H MARLEEN Infusion Albumin Human 50 mls @ 999 mls/hr 04/08/25 09:28 Albutein IVPB 05/08/25 09:27 Q10M PRN HYPOTENSION Insulin Aspart 2 - 5 units 04/07/25 12:00 04/08/25 16:46 Insulin Aspart (*Bkc) 100 Units/Ml SUB-Q Not Given TIDWM MARLEEN Protocol Insulin Aspart 1 - 2 units 04/07/25 21:00 04/08/25 20:58 Insulin Aspart (*Bkc) 100 Units/Ml SUB-Q Not Given HS MARLEEN Protocol Lactulose 30 gm 04/07/25 09:00 04/08/25 09:29 Lactulose 20 Gm/30 Ml Udc PO Not Given DAILY MARLEEN Levetiracetam 500 mg 04/07/25 03:25 04/08/25 20:59 Levetiracetam 500 Mg Tablet PO 500 mg Q12HR MARLEEN Administration Midodrine 10 mg 04/07/25 09:51 04/09/25 08:03 Midodrine Hcl 10 Mg Tablet PO 10 mg PRN PRN Administration half hour before dialysis and then 2 hours into dialysis Mupirocin 1 applic 04/07/25 11:30 04/08/25 21:05 Mupirocin 2% Oint 22 Gm Tube EACH NARE 04/11/25 21:01 Not Given Q12HR MARLEEN Ondansetron HCl 4 mg 04/06/25 17:25 Ondansetron Inj 4 Mg/2 Ml Vial IV PUSH Q6H PRN Nausea And Vomiting Oxcarbazepine 150 mg 04/07/25 03:25 04/08/25 20:59 Oxcarbazepine 150 Mg Tablet PO 150 mg Q12HR MARLEEN Administration Pantoprazole Sodium 40 mg 04/07/25 21:00 04/08/25 21:00 Pantoprazole Sodium Iv 40 Mg Vial IV PUSH 40 mg Q12HR MARLEEN Administration Perflutren Lipid Microsphere 0 ml 04/06/25 19:02 Perflutren Lipid Microspheres 1.5 Ml Vial Diluted To 10 Ml Total Volume IV PUSH 04/09/25 19:02 ONCE PRN adequate visualization Protocol Perflutren Lipid Microsphere 0 ml 04/07/25 14:02 Perflutren Lipid Microspheres 1.5 Ml Vial Diluted To 10 Ml Total Volume IV PUSH 04/10/25 14:02 ONCE PRN adequate visualization Protocol Perflutren Lipid Microsphere 0 ml 04/08/25 14:48 Perflutren Lipid Microspheres 1.5 Ml Vial Diluted To 10 Ml Total Volume IV PUSH 04/11/25 14:48 ONCE PRN adequate visualization Protocol Quetiapine Fumarate 50 mg 04/07/25 21:00 04/08/25 20:58 Quetiapine Fumarate 25 Mg Tablet PO 50 mg HS MARLEEN Administration Trazodone HCl 50 mg 04/06/25 21:00 04/08/25 20:59 Trazodone Hcl 50 Mg Tablet PO 50 mg HS MARLEEN Administration Radiology Results: ITS Impressions Chest X-Ray 04/06/25 12:18 Impression: 1: Cardiomegaly with pulmonary edema. Venous Doppler Study 04/07/25 18:31 IMPRESSION: Patent bilateral lower extremity veins. No evidence of deep venous thrombosis. Abdomen Ultrasound 04/08/25 23:15 IMPRESSION: Limited evaluation. The pancreas, spleen, and left kidney are poorly visualized. Limited parenchymal evaluation of the liver, with no surface nodularity to suggest cirrhosis. Normal size gallbladder, likely containing sludge and stones. Labs Labs: Laboratory Results - last 24 hr 04/08/25 04/08/25 04/08/25 11:37 15:55 19:48 WBC RBC Hgb Hct MCV MCH MCHC RDW Plt Count MPV Immature Gran % (Auto) Neut % (Auto) Lymph % (Auto) Dougherty % (Auto) Eos % (Auto) Baso % (Auto) Lymph # (Auto) Dougherty # (Auto) Eos # (Auto) Baso # (Auto) Abs Immat Gran (auto) Absolute Neuts (auto) Absolute Nucleated RBC Nucleated RBC % APTT Sodium Potassium Chloride Carbon Dioxide Anion Gap BUN Creatinine Estim Creat Clear Calc Estimated GFR Glucose POC Capillary Glucose 147 H 131 H 146 H Calcium Phosphorus Magnesium Total Bilirubin AST ALT Alkaline Phosphatase Total Protein Albumin 04/09/25 04:35 WBC 4.1 L RBC 2.72 L Hgb 7.7 L Hct 26.8 L MCV 98.5 MCH 28.3 MCHC 28.7 L RDW 15.3 H Plt Count 140 L MPV 9.0 Immature Gran % (Auto) 0.7 H Neut % (Auto) 69.0 Lymph % (Auto) 21.8 Dougherty % (Auto) 8.5 Eos % (Auto) 0.0 Baso % (Auto) 0.0 L Lymph # (Auto) 0.90 Dougherty # (Auto) 0.4 Eos # (Auto) 0.0 Baso # (Auto) 0.0 Abs Immat Gran (auto) 0.03 Absolute Neuts (auto) 2.9 Absolute Nucleated RBC 0.000 Nucleated RBC % 0.0 APTT 27.4 Sodium 138 Potassium 4.1 Chloride 99 Carbon Dioxide 31 H Anion Gap 8 BUN 32 H D Creatinine 4.06 H Estim Creat Clear Calc 19 Estimated GFR 11 L Glucose 127 H POC Capillary Glucose Calcium 9.2 Phosphorus 5.7 H Magnesium 1.9 Total Bilirubin 0.3 AST 21 ALT 14 Alkaline Phosphatase 82 Total Protein 6.4 Albumin 3.4 L Quality VTE Prophylaxis VTE prophylaxis: mechanical ordered
--- NOTE | 2025-04-09 10:25 | P.PNNP_ITS ---
Progress Note: A&P Assessment and Plan (1) End stage renal disease: Code(s): N18.6 - End stage renal disease Status: Chronic Assessment and Plan: * HD today * continue outpatient schedule of Mondays, Wednesdays, and Fridays * follow electrolytes, volume status, and clearance (2) Volume overload: Code(s): E87.70 - Fluid overload, unspecified Status: Acute Assessment and Plan: * admission CXR with cardiomegaly and pulmonary edema * presumably precipitated by missed dialysis treatment prior to admission * clinically better s/p aggressive ultrafiltration/fluid removal with dialysis * continue current therapy/interventions (3) Anemia: Qualifiers: Anemia type: due to chronic kidney disease Chronic kidney disease stage: on chronic dialysis Qualified Code(s): N18.6 - End stage renal disease; D63.1 - Anemia in chronic kidney disease; Z99.2 - Dependence on renal dialysis Code(s): D64.9 - Anemia, unspecified Status: Acute Assessment and Plan: * partly due to ESRD * however, guaiac positive stool noted * GI recommendations noted -- possible EGD tomorrow * relatively stable * no evidence of iron deficiency by anemia studies * high dose Epogen with dialysis * follow trend of H/H (4) UTI (urinary tract infection): Code(s): N39.0 - Urinary tract infection, site not specified Status: Acute Assessment and Plan: * admission UA suggestive * urine culturegarm negatie bacilli * on antibiotics (5) HTN (hypertension): Qualifiers: Hypertension type: unspecified Qualified Code(s): I10 - Essential (primary) hypertension Code(s): I10 - Essential (primary) hypertension Status: Chronic Assessment and Plan: * reasonable control * off antihypertensives at this time * on midodrine for dialysis purposes (6) Chronic respiratory failure with hypoxia: Code(s): J96.11 - Chronic respiratory failure with hypoxia Status: Chronic Assessment and Plan: * multifactorial: * COPD * SHELDON * OHS * CHF * pulmonary edema * on chronic supplemental oxygen * on BiPAP at the skilled nursing * continue supportive therapy (7) Bipolar 1 disorder: Code(s): F31.9 - Bipolar disorder, unspecified Status: Chronic Assessment and Plan: * continue Seroquel (8) Left renal mass: Code(s): N28.89 - Other specified disorders of kidney and ureter Status: Chronic Assessment and Plan: * follows with Urology as an outpatient (concern is for malignancy) * per review of outside records, deemed to be a poor surgical candidate Will continue to follow. L Subjective Date/time seen: 04/09/25 10:25 Interval history: Follow-up for end stage renal disease on hemodialysis. Chart reviewed -- assuming care from Dr. Coulter; tolerating dialysis treatment at the time of my visit (seen on HD at 10:15AM); breathing/respiratory status seems to be doing better in comparison to admission; no apparent distress when seen. Exam 2 Narrative: General: large but WD/WN female in NAD Heart: normal S1 and S2; no rub Lungs: clear anteriorly; coarse/diminished at bases Abdomen: soft, nontender, nondistended, positive bowel sounds Extremities: no cyanosis or clubbing; no edema Skin: warm and dry Objective Data Vital Signs Vital Signs: Vital Signs Temp Pulse Resp BP Pulse Ox O2 Del Method O2 Flow Rate 04/09/25 10:15 72 131/70 04/09/25 10:00 70 122/60 04/09/25 09:45 69 125/66 04/09/25 09:30 69 134/75 04/09/25 09:15 66 142/77 H 04/09/25 09:00 72 153/84 H 04/09/25 08:45 73 158/49 H 04/09/25 08:31 71 133/70 04/09/25 08:31 3 04/09/25 08:20 98.4 F 72 24 H 133/64 100 04/09/25 08:00 100 Nasal Cannula 3 04/09/25 07:51 71 20 04/09/25 07:43 74 20 04/09/25 07:43 93 Nasal Cannula 3 04/09/25 04:45 70 24 H 97 BiPAP 04/09/25 04:30 98.0 F 80 20 135/44 L 97 04/09/25 01:23 75 24 H 04/09/25 01:20 77 27 H 97 BiPAP 04/08/25 20:52 69 20 96 Nasal Cannula 3 04/08/25 20:51 69 20 04/08/25 19:53 98.0 F 69 20 133/48 L 99 04/08/25 16:00 98.7 F 67 20 126/47 L 99 Intake/Output Intake/Output: Intake & Output 04/06/25 04/07/25 04/08/25 04/09/25 23:59 23:59 23:59 23:59 Intake Total 162.3 1022.2 835 930 Output Total 3000 3150 375 250 Balance -2837.7 -2127.8 460 680 Meds/Results Medications: Active Medications Generic Name Dose Route Start Last Admin Trade Name Freq PRN Reason Stop Dose Admin Acetaminophen 650 mg 04/06/25 17:25 Acetaminophen 325 Mg Tablet PO Q4H PRN Mild Pain (1-3) or Fever Hydrocodone Bitart/Acetaminophen 1 tab 04/06/25 17:25 04/09/25 13:09 Hydrocodone/Acetaminophen (*Crx) 5-325 Mg Tablet PO 1 tab Q4H PRN Administration Moderate Pain (4-6) Albuterol/Ipratropium 3 ml 04/06/25 14:00 04/09/25 14:37 Ipratropium 0.5 Mg/Albuterol Sulfate 2.5 Mg Ampul.Neb 3 Ml INHALATION 3 ml Q6HRT MARLEEN Administration Atorvastatin Calcium 40 mg 04/06/25 21:00 04/08/25 20:58 Atorvastatin 40 Mg Tablet PO 40 mg QHS MARLEEN Administration Ciprofloxacin 500 mg 04/10/25 12:00 Ciprofloxacin 500 Mg Tab PO DAILY@1200 MARLEEN Dextrose 12.5 gm 04/07/25 10:55 Dextrose 50% 25 Gm/50 Ml Syringe IV PUSH PRN PRN Hypoglycemia Protocol Docusate Sodium 100 mg 04/07/25 09:00 04/09/25 10:48 Docusate Sodium 100 Mg Capsule PO Not Given BID MARLEEN Ferrous Sulfate 325 mg 04/07/25 09:00 04/09/25 10:48 Ferrous Sulfate [address] BY MOUTH Not Given DAILY MARLEEN Furosemide 40 mg 04/06/25 20:45 04/09/25 10:48 Furosemide Inj 40 Mg/4 Ml Vial IV PUSH Not Given BID MARLEEN Gabapentin 100 mg 04/07/25 09:00 04/09/25 10:48 Gabapentin 100 Mg Capsule PO Not Given BID MARLEEN Glucose 15 gm 04/07/25 10:55 Glucose Oral Gel 15 Gm Of Glucse In 37.5 Gm Tube PO PRN PRN Hypoglycemia Protocol Hydroxyzine HCl 25 mg 04/07/25 04:05 04/09/25 13:02 Hydroxyzine Hcl 25 Mg Tablet PO 25 mg TID MARLEEN Administration Dextrose 1,000 mls @ 100 mls/hr 04/07/25 10:55 Dextrose 5% 1,000 Ml IVPB PRN PRN Hypoglycemia Protocol Albumin Human 50 mls @ 999 mls/hr 04/08/25 09:28 Albutein IVPB 05/08/25 09:27 Q10M PRN HYPOTENSION Insulin Aspart 2 - 5 units 04/07/25 12:00 04/09/25 13:03 Insulin Aspart (*Bkc) 100 Units/Ml SUB-Q Not Given TIDWM MARLEEN Protocol Insulin Aspart 1 - 2 units 04/07/25 21:00 04/08/25 20:58 Insulin Aspart (*Bkc) 100 Units/Ml SUB-Q Not Given HS MARLEEN Protocol Lactulose 30 gm 04/07/25 09:00 04/09/25 13:05 Lactulose 20 Gm/30 Ml Udc PO Not Given DAILY MARLEEN Levetiracetam 500 mg 04/07/25 03:25 04/09/25 13:01 Levetiracetam 500 Mg Tablet PO 500 mg Q12HR MARLEEN Administration Midodrine 10 mg 04/07/25 09:51 04/09/25 10:44 Midodrine Hcl 10 Mg Tablet PO 10 mg PRN PRN Administration half hour before dialysis and then 2 hours into dialysis Mupirocin 1 applic 04/07/25 11:30 04/09/25 13:21 Mupirocin 2% Oint 22 Gm Tube EACH NARE 04/11/25 21:01 1 applic Q12HR MARLEEN Administration Ondansetron HCl 4 mg 04/06/25 17:25 Ondansetron Inj 4 Mg/2 Ml Vial IV PUSH Q6H PRN Nausea And Vomiting Oxcarbazepine 150 mg 04/07/25 03:25 04/09/25 13:00 Oxcarbazepine 150 Mg Tablet PO 150 mg Q12HR MARLEEN Administration Pantoprazole Sodium 40 mg 04/07/25 21:00 04/09/25 12:59 Pantoprazole Sodium Iv 40 Mg Vial IV PUSH 40 mg Q12HR MARLEEN Administration Perflutren Lipid Microsphere 0 ml 04/06/25 19:02 Perflutren Lipid Microspheres 1.5 Ml Vial Diluted To 10 Ml Total Volume IV PUSH 04/09/25 19:02 ONCE PRN adequate visualization Protocol Perflutren Lipid Microsphere 0 ml 04/07/25 14:02 Perflutren Lipid Microspheres 1.5 Ml Vial Diluted To 10 Ml Total Volume IV PUSH 04/10/25 14:02 ONCE PRN adequate visualization Protocol Perflutren Lipid Microsphere 0 ml 04/08/25 14:48 Perflutren Lipid Microspheres 1.5 Ml Vial Diluted To 10 Ml Total Volume IV PUSH 04/11/25 14:48 ONCE PRN adequate visualization Protocol Quetiapine Fumarate 50 mg 04/07/25 21:00 04/08/25 20:58 Quetiapine Fumarate 25 Mg Tablet PO 50 mg HS MARLEEN Administration Trazodone HCl 50 mg 04/06/25 21:00 04/08/25 20:59 Trazodone Hcl 50 Mg Tablet PO 50 mg HS MARLEEN Administration Radiology Results: ITS Impressions Chest X-Ray 04/06/25 12:18 Impression: 1: Cardiomegaly with pulmonary edema. Venous Doppler Study 04/07/25 18:31 IMPRESSION: Patent bilateral lower extremity veins. No evidence of deep venous thrombosis. Abdomen Ultrasound 04/08/25 23:15 IMPRESSION: Limited evaluation. The pancreas, spleen, and left kidney are poorly visualized. Limited parenchymal evaluation of the liver, with no surface nodularity to suggest cirrhosis. Normal size gallbladder, likely containing sludge and stones. Labs Labs: Laboratory Tests 04/09/25 04:35 04/09/25 04:35 Calcium 9.2 Phosphorus 5.7 H Magnesium 1.9 Total Bilirubin 0.3 AST 21 ALT 14 Alkaline Phosphatase 82 Total Protein 6.4 Albumin 3.4 L
--- NOTE | 2025-04-09 10:52 | P.CDI_ITS ---
CDI Query Clarification Request Please clarify type and acuity of heart failure if known. * Acute * Chronic * Acute on Chronic * Unknown * Systolic * Diastolic * Combined Systolic and Diastolic * Unknown The medical chart reflects the following: Patient is a 65-year-old female presents to the ER with complaints of increased shortness of breath. She is on dialysis and is usually dialyzed on Mondays, Wednesdays, and Fridays. Patient reports she has not had dialysis Wed. She also reports a alf facility where she lives is supposed to ?put me on BiPAP every night and they have not been doing it. Patient reports this morning she woke with significant shortness of breath. She denies any acute cough, recent fevers, wheezing, or new onset low back pain. Patient endorses chest pain, and ?pain all over. She endorses a history of hypertension, COPD, chronic kidney disease on dialysis, and diabetes. Patient reports she has recently been on antibiotics to treat a UTI (7) CHF (congestive heart failure): Qualifiers: Heart failure chronicity: unspecified Heart failure type: unspecified Qualified Code(s): I50.9 - Heart failure, unspecified Code(s): I50.9 - Heart failure, unspecified Status: Acute Assessment and Plan: IV Lasix b.i.d. Harry catheter for aggressive diuresis (1) Pulmonary edema: Code(s): J81.1 - Chronic pulmonary edema Status: Acute Assessment and Plan: Urgent dialysis s/p BiPAP on nasal cannula oxygen continue dialysis nephrology on board (4) Acute hypercapnic respiratory failure: Code(s): J96.02 - Acute respiratory failure with hypercapnia Status: Acute Assessment and Plan: S/p BiPAP on dialysis Now on baseline oxygen 3 liters resp failure improved with dialysis, DVT negative, PE not suspected anymore Heparin discontinued and monitor resp failure nephrology following <Josefa Paez RN - Last Filed: 04/09/25 10:55> Clarified Diagnosis Clarified Diagnosis: Fluid overload <Rubin Junior MD - Last Filed: 04/09/25 10:57>
[2025-04-09] MEDS: EPOETIN ALFA-EPBX 20,000 UNITS/ML VIAL 20000 UNITS IV PUSH (12:06)
[2025-04-09] MEDS: PANTOPRAZOLE SODIUM IV 40 MG VIAL IV PUSH (12:59)
[2025-04-09] MEDS: CIPROFLOXACIN 400 MG/D5W 200ML 200 ML 200 MG IVPB (13:00)
[2025-04-09] MEDS: HYDROcodone/acetaminophen (*CRX) 5-325 MG TABLET 1 TAB PO ×2 (13:09→20:27)
[2025-04-09] MEDS: MUPIROCIN 2% OINT 22 GM TUBE 1 APPLIC EACH NARE ×2 (13:21→20:30)
[2025-04-09] MEDS: PERFLUTREN LIPID MICROSPHERES 1.5 ML VIAL DILUTED TO 10 ML TOTAL VOLUME IV PUSH (15:20)
--- NOTE | 2025-04-09 15:39 | IVDEFINITY ---
Prior to administration of IV Definity the patient was educated on the risks and benefits of the imaging enhancing agent including potential adverse side effects. The patient verbalized understanding. Allergies were verified. No exclusion criteria were identified and at least one of the following inclusion criteria were met: 1) physician request, 2) patient technically difficult to image (per the [employer] guidelines of two or more segments not discernable within the apical view), or 3) questionable left ventricular function. ?
[2025-04-09] MEDS: DOCUSATE SODIUM 100 MG CAPSULE PO (17:24)
[2025-04-09] MEDS: GABAPENTIN 100 MG CAPSULE PO (17:24)
--- NOTE | 2025-04-09 17:25 | P.PNGI_ITS ---
Progress Note: A&P Assessment and Plan (1) Acute on chronic anemia: Code(s): D64.9 - Anemia, unspecified Status: Acute Assessment and Plan: stable and could be multifactorial, also on dialysis will do EGD tomorrow since her respiratory status has improved (2) Occult blood in stools: Code(s): R19.5 - Other fecal abnormalities Status: Acute (3) Chronic respiratory failure: Code(s): J96.10 - Chronic respiratory failure, unspecified whether with hypoxia or hypercapnia Status: Acute (4) Pulmonary edema: Code(s): J81.1 - Chronic pulmonary edema Status: Acute (5) End stage renal disease: Code(s): N18.6 - End stage renal disease Status: Chronic Subjective Date/time seen: 04/09/25 17:25 Interval history: she is breathing better now she is willing to have egd tomorrow Review of Systems Review of Systems: All systems reviewed & are unremarkable except as noted in HPI and below Exam Const: General: comfortable and no acute distress Other: chronically ill appearing obese HENMT: Face/Nose/Sinus: Normal nares present Eyes: General: appearance normal, both eyes and all related structures Neck: Neck: supple Resp: Auscultation: clear to auscultation bilaterally Other: using O2 by NC Cardio: Rate: regular rate Rhythm: regular rhythm GI: Inspection: non-distended GI Palp: Yes Soft to palpation and No Tenderness to palpation present (GI) Skin: General skin exam: normal color Neuro: Speech: normal speech Extrem: General: pedal edema Psych: Mental Status: mental status grossly normal Objective Data Vital Signs Vital Signs: Vital Signs - 24 hr 04/08/25 19:53 04/08/25 20:51 04/08/25 20:52 Temperature 98.0 F Pulse Rate 69 69 69 Respiratory Rate 20 20 20 Blood Pressure 133/48 L Pulse Oximetry 99 96 Oxygen Delivery Nasal Cannula Oxygen Flow Rate 3 Fraction of Inspired Oxygen 32 04/09/25 01:20 04/09/25 01:23 04/09/25 04:30 Temperature 98.0 F Pulse Rate 77 75 80 Respiratory Rate 27 H 24 H 20 Blood Pressure 135/44 L Pulse Oximetry 97 97 Oxygen Delivery BiPAP Oxygen Flow Rate Fraction of Inspired Oxygen 04/09/25 04:45 04/09/25 07:43 04/09/25 07:43 Temperature Pulse Rate 70 74 Respiratory Rate 24 H 20 Blood Pressure Pulse Oximetry 97 93 Oxygen Delivery BiPAP Nasal Cannula Oxygen Flow Rate 3 Fraction of Inspired Oxygen 04/09/25 07:51 04/09/25 08:00 04/09/25 08:20 Temperature 98.4 F Pulse Rate 71 72 Respiratory Rate 20 24 H Blood Pressure 133/64 Pulse Oximetry 100 100 Oxygen Delivery Nasal Cannula Oxygen Flow Rate 3 Fraction of Inspired Oxygen 04/09/25 08:31 04/09/25 08:31 04/09/25 08:45 Temperature Pulse Rate 71 73 Respiratory Rate Blood Pressure 133/70 158/49 H Pulse Oximetry Oxygen Delivery Oxygen Flow Rate 3 Fraction of Inspired Oxygen 04/09/25 09:00 04/09/25 09:15 04/09/25 09:30 Temperature Pulse Rate 72 66 69 Respiratory Rate Blood Pressure 153/84 H 142/77 H 134/75 Pulse Oximetry Oxygen Delivery Oxygen Flow Rate Fraction of Inspired Oxygen 04/09/25 09:45 04/09/25 10:00 04/09/25 10:15 Temperature Pulse Rate 69 70 72 Respiratory Rate Blood Pressure 125/66 122/60 131/70 Pulse Oximetry Oxygen Delivery Oxygen Flow Rate Fraction of Inspired Oxygen 04/09/25 10:30 04/09/25 10:45 04/09/25 11:00 Temperature Pulse Rate 70 75 70 Respiratory Rate Blood Pressure 126/67 115/62 113/57 L Pulse Oximetry Oxygen Delivery Oxygen Flow Rate Fraction of Inspired Oxygen 04/09/25 11:27 04/09/25 11:44 04/09/25 11:50 Temperature Pulse Rate 68 85 69 Respiratory Rate Blood Pressure 112/56 L 101/52 L 116/60 Pulse Oximetry Oxygen Delivery Oxygen Flow Rate Fraction of Inspired Oxygen 04/09/25 12:00 04/09/25 12:15 04/09/25 12:22 Temperature Pulse Rate 69 69 68 Respiratory Rate Blood Pressure 127/63 126/66 116/63 Pulse Oximetry Oxygen Delivery Oxygen Flow Rate Fraction of Inspired Oxygen 04/09/25 12:28 04/09/25 14:17 04/09/25 14:38 Temperature 98.6 F 97.3 F L Pulse Rate 71 71 76 Respiratory Rate 18 18 20 Blood Pressure 121/58 L 113/60 Pulse Oximetry 100 100 Oxygen Delivery Oxygen Flow Rate Fraction of Inspired Oxygen 04/09/25 14:47 Temperature Pulse Rate 76 Respiratory Rate 20 Blood Pressure Pulse Oximetry Oxygen Delivery Oxygen Flow Rate Fraction of Inspired Oxygen Intake/Output Intake/Output: Intake & Output 04/06/25 04/07/25 04/08/25 04/09/25 23:59 23:59 23:59 23:59 Intake Total 162.3 1022.2 835 930 Output Total 3000 3150 375 4050 Balance -2837.7 -2127.8 460 -3120 Meds/Results Medications: Active Medications Generic Name Dose Route Start Last Admin Trade Name Freq PRN Reason Stop Dose Admin Acetaminophen 650 mg 04/06/25 17:25 Acetaminophen 325 Mg Tablet PO Q4H PRN Mild Pain (1-3) or Fever Hydrocodone Bitart/Acetaminophen 1 tab 04/06/25 17:25 04/09/25 13:09 Hydrocodone/Acetaminophen (*Crx) 5-325 Mg Tablet PO 1 tab Q4H PRN Administration Moderate Pain (4-6) Albuterol/Ipratropium 3 ml 04/06/25 14:00 04/09/25 14:37 Ipratropium 0.5 Mg/Albuterol Sulfate 2.5 Mg Ampul.Neb 3 Ml INHALATION 3 ml Q6HRT MARLEEN Administration Atorvastatin Calcium 40 mg 04/06/25 21:00 04/08/25 20:58 Atorvastatin 40 Mg Tablet PO 40 mg QHS MARLEEN Administration Ciprofloxacin 500 mg 04/10/25 12:00 Ciprofloxacin 500 Mg Tab PO DAILY@1200 [facility] Dextrose 12.5 gm 04/07/25 10:55 Dextrose 50% 25 Gm/50 Ml Syringe IV PUSH PRN PRN Hypoglycemia Protocol Docusate Sodium 100 mg 04/07/25 09:00 04/09/25 10:48 Docusate Sodium 100 Mg Capsule PO Not Given BID MARLEEN Ferrous Sulfate 325 mg 04/07/25 09:00 04/09/25 10:48 Ferrous Sulfate [address] BY MOUTH Not Given DAILY MARLEEN Furosemide 40 mg 04/06/25 20:45 04/09/25 10:48 Furosemide Inj 40 Mg/4 Ml Vial IV PUSH Not Given BID MARLEEN Gabapentin 100 mg 04/07/25 09:00 04/09/25 10:48 Gabapentin 100 Mg Capsule PO Not Given BID [facility] Glucose 15 gm 04/07/25 10:55 Glucose Oral Gel 15 Gm Of Glucse In 37.5 Gm Tube PO PRN PRN Hypoglycemia Protocol Hydroxyzine HCl 25 mg 04/07/25 04:05 04/09/25 13:02 Hydroxyzine Hcl 25 Mg Tablet PO 25 mg TID MARLEEN Administration Dextrose 1,000 mls @ 100 mls/hr 04/07/25 10:55 Dextrose 5% 1,000 Ml IVPB PRN PRN Hypoglycemia Protocol Albumin Human 50 mls @ 999 mls/hr 04/08/25 09:28 Albutein IVPB 05/08/25 09:27 Q10M PRN HYPOTENSION Insulin Aspart 2 - 5 units 04/07/25 12:00 04/09/25 16:55 Insulin Aspart (*Bkc) 100 Units/Ml SUB-Q Not Given TIDWM MARLEEN Protocol Insulin Aspart 1 - 2 units 04/07/25 21:00 04/08/25 20:58 Insulin Aspart (*Bkc) 100 Units/Ml SUB-Q Not Given HS MARLEEN Protocol Lactulose 30 gm 04/07/25 09:00 04/09/25 13:05 Lactulose 20 Gm/30 Ml Udc PO Not Given DAILY MARLEEN Levetiracetam 500 mg 04/07/25 03:25 04/09/25 13:01 Levetiracetam 500 Mg Tablet PO 500 mg Q12HR MARLEEN Administration Midodrine 10 mg 04/07/25 09:51 04/09/25 10:44 Midodrine Hcl 10 Mg Tablet PO 10 mg PRN PRN Administration half hour before dialysis and then 2 hours into dialysis Mupirocin 1 applic 04/07/25 11:30 04/09/25 13:21 Mupirocin 2% Oint 22 Gm Tube EACH NARE 04/11/25 21:01 1 applic Q12HR MARLEEN Administration Ondansetron HCl 4 mg 04/06/25 17:25 Ondansetron Inj 4 Mg/2 Ml Vial IV PUSH Q6H PRN Nausea And Vomiting Oxcarbazepine 150 mg 04/07/25 03:25 04/09/25 13:00 Oxcarbazepine 150 Mg Tablet PO 150 mg Q12HR MARLEEN Administration Pantoprazole Sodium 40 mg 04/07/25 21:00 04/09/25 12:59 Pantoprazole Sodium Iv 40 Mg Vial IV PUSH 40 mg Q12HR MARLEEN Administration Perflutren Lipid Microsphere 0 ml 04/07/25 14:02 Perflutren Lipid Microspheres 1.5 Ml Vial Diluted To 10 Ml Total Volume IV PUSH 04/10/25 14:02 ONCE PRN adequate visualization Protocol Perflutren Lipid Microsphere 0 ml 04/08/25 14:48 Perflutren Lipid Microspheres 1.5 Ml Vial Diluted To 10 Ml Total Volume IV PUSH 04/11/25 14:48 ONCE PRN adequate visualization Protocol Quetiapine Fumarate 50 mg 04/07/25 21:00 04/08/25 20:58 Quetiapine Fumarate 25 Mg Tablet PO 50 mg HS MARLEEN Administration Trazodone HCl 50 mg 04/06/25 21:00 04/08/25 20:59 Trazodone Hcl 50 Mg Tablet PO 50 mg HS MARLEEN Administration Radiology Results: ITS Impressions Chest X-Ray 04/06/25 12:18 Impression: 1: Cardiomegaly with pulmonary edema. Venous Doppler Study 04/07/25 18:31 IMPRESSION: Patent bilateral lower extremity veins. No evidence of deep venous thrombosis. Abdomen Ultrasound 04/08/25 23:15 IMPRESSION: Limited evaluation. The pancreas, spleen, and left kidney are poorly visualized. Limited parenchymal evaluation of the liver, with no surface nodularity to suggest cirrhosis. Normal size gallbladder, likely containing sludge and stones. Labs Labs: Laboratory Results - last 24 hr 04/08/25 04/09/25 04/09/25 19:48 04:35 12:57 WBC 4.1 L RBC 2.72 L Hgb 7.7 L Hct 26.8 L MCV 98.5 MCH 28.3 MCHC 28.7 L RDW 15.3 H Plt Count 140 L MPV 9.0 Immature Gran % (Auto) 0.7 H Neut % (Auto) 69.0 Lymph % (Auto) 21.8 [place] % (Auto) 8.5 Eos % (Auto) 0.0 Baso % (Auto) 0.0 L Lymph # (Auto) 0.90 [place] # (Auto) 0.4 Eos # (Auto) 0.0 Baso # (Auto) 0.0 Abs Immat Gran (auto) 0.03 Absolute Neuts (auto) 2.9 Absolute Nucleated RBC 0.000 Nucleated RBC % 0.0 APTT 27.4 Sodium 138 Potassium 4.1 Chloride 99 Carbon Dioxide 31 H Anion Gap 8 BUN 32 H D Creatinine 4.06 H Estim Creat Clear Calc 19 Estimated GFR 11 L Glucose 127 H POC Capillary Glucose 146 H 138 H Calcium 9.2 Phosphorus 5.7 H Magnesium 1.9 Total Bilirubin 0.3 AST 21 ALT 14 Alkaline Phosphatase 82 Total Protein 6.4 Albumin 3.4 L 04/09/25 16:54 WBC RBC Hgb Hct MCV MCH MCHC RDW Plt Count MPV Immature Gran % (Auto) Neut % (Auto) Lymph % (Auto) [place] % (Auto) Eos % (Auto) Baso % (Auto) Lymph # (Auto) [place] # (Auto) Eos # (Auto) Baso # (Auto) Abs Immat Gran (auto) Absolute Neuts (auto) Absolute Nucleated RBC Nucleated RBC % APTT Sodium Potassium Chloride Carbon Dioxide Anion Gap BUN Creatinine Estim Creat Clear Calc Estimated GFR Glucose POC Capillary Glucose 116 H Calcium Phosphorus Magnesium Total Bilirubin AST ALT Alkaline Phosphatase Total Protein Albumin
[2025-04-09] MEDS: ATORVASTATIN 40 MG TABLET PO (20:27)
[2025-04-10] VITALS (16 sets, daily range): BP systolic 114–134; BP diastolic 44–55; PULSE 60–74; RESP 16–26; TEMP 35.8–36.3; O2SAT 96–100
[2025-04-10] MEDS: IPRATROPIUM 0.5 MG/ALBUTEROL SULFATE 2.5 MG AMPUL.NEB 3 ML INHALATION ×4 (02:29→20:55)
[2025-04-10 05:21] LABS: Hematocrit 27.1 % (37.0-47.0); Hemoglobin 7.8 g/dL (12.0-15.0); Immature Granulocyte Percent A 1.4 % (0-0.5); Lymphocytes Absolute Auto 0.89 K/mm3 (0.9-3.2); Mean Corpuscular HGB Conc 28.8 g/dl (32-36); Mean Corpuscular Hemoglobin 28.1 pg (26-34); Mean Corpuscular Volume 97.5 fl (80-100); Nucleated Red Blood Cells Absolute Auto 0.020 K/mm3 (0.0-0.012); Nucleated Red Blood Cells Perc 0.4 % (0.0-0.2); Platelet Count Result 160 k/mm3 (150-375); Red Blood Count 2.78 M/mm3 (4.2-5.4); White Blood Count 5.0 K/mm3 (4.5-10.0)
[2025-04-10] MEDS: HYDROcodone/acetaminophen (*CRX) 5-325 MG TABLET 1 TAB PO ×3 (05:29→17:08)
[2025-04-10 05:33] LABS: Partial Thromboplastin Time 27.6 Seconds (22.3-36.8)
[2025-04-10 05:44] LABS: Alanine Aminotransferase 13 U/L (6-35); Albumin Level 3.4 g/dL (3.5-5.1); Alkaline Phosphatase 80 U/L (38-126); Anion Gap 9 mmol/L (4-12); Aspartate Amino Transferase 22 U/L (14-36); Bilirubin,Total 0.4 mg/dL (0.2-1.3); Blood Urea Nitrogen 23 mg/dL (7-17); Calcium 9.2 mg/dL (8.4-10.2); Carbon Dioxide 25 mmol/L (22-30); Chloride 105 mmol/L (98-107); Estimated CRCL calculation 25 ml/min; Estimated Glomerular Filt Rate 15; Glucose 132 mg/dL (65-110); Magnesium 1.9 mg/dL (1.6-2.3); Potassium 4.4 mmol/L (3.4-5.0); Sodium 139 mmol/L (137-145); Total Protein 6.3 g/dL (6.3-8.2)
[2025-04-10] MEDS: DOCUSATE SODIUM 100 MG CAPSULE PO ×2 (08:57→17:08)
[2025-04-10] MEDS: FERROUS SULFATE 325 MG TABLET DR BY MOUTH (08:57)
[2025-04-10] MEDS: PANTOPRAZOLE SODIUM IV 40 MG VIAL IV PUSH ×2 (08:57→20:55)
[2025-04-10] MEDS: GABAPENTIN 100 MG CAPSULE PO ×2 (08:57→17:08)
[2025-04-10] MEDS: FUROSEMIDE INJ 40 MG/4 ML VIAL IV PUSH (08:57)
[2025-04-10] MEDS: MUPIROCIN 2% OINT 22 GM TUBE 1 APPLIC EACH NARE ×2 (09:00→20:55)
--- NOTE | 2025-04-10 09:34 | PM.IMPN ---
Progress Note: A&P Assessment and Plan (1) Occult blood in stools: Code(s): R19.5 - Other fecal abnormalities Status: Acute Assessment and Plan: Occult stool positive and anemia Monitor serum electrolytes, CBC, hemoglobin/hematocrit q.8 hours. If hemoglobin drops below 7 transfuse packed red blood cells Monitor for bloody bowel movements,chest pain,SOB or dizziness/lightheadedness Pantoprazole BID DVT Px: SCDs GI consult Plan for EGD US liver: unremarkable Echo obtained, LVEF 65-70% no valvular abnormalities (2) UTI (urinary tract infection): Code(s): N39.0 - Urinary tract infection, site not specified Status: Acute Assessment and Plan: Patient states that she was feeling better originally on the cipro however overnight developed worsening dysuria and burning - UA concerning for infection - UC: gram negative bacilli - previous micro reviewed Prior ESBL on 01/12/25 - started on cipro 04/07, transitioned to meropenem on 04/10 - webber catheter discontinued, discussed with nephrology and in agreement with removal (3) CHF (congestive heart failure): Qualifiers: Heart failure chronicity: unspecified Heart failure type: unspecified Qualified Code(s): I50.9 - Heart failure, unspecified Code(s): I50.9 - Heart failure, unspecified Status: Acute Assessment and Plan: - Current medications: IV lasix 40 mg BID discontinued on 04/10 as patient does not produce much urine, discussed with nephrology Dr. Calix - BNP: 5050 - Chest XR: Cardiomegaly with pulmonary edema. - Remains on baseline 3L NC - Echo 65-70% with no valvular abnormalities - Nephrology following, continue dialysis for fluid overload - Monitor vital signs, I&Os, BUN/creatinine, daily weights, neuro status and patient is a fall risk - Monitor serum electrolytes, Keep serum Potassium>4 and serum Magnesium>2 and CBC (4) Anemia: Qualifiers: Anemia type: due to chronic kidney disease Chronic kidney disease stage: on chronic dialysis Qualified Code(s): N18.6 - End stage renal disease; D63.1 - Anemia in chronic kidney disease; Z99.2 - Dependence on renal dialysis Code(s): D64.9 - Anemia, unspecified Status: Acute Assessment and Plan: Hgb 9.2 on admission, and currently staying stable in the 7 range Iron WNL Isat 46, EPO per Nephrology Concern for possible GI bleed See plan above (5) Hyperkalemia: Code(s): E87.5 - Hyperkalemia Status: Acute Assessment and Plan: Hyperkalemia on admission, received dialysis and has since resolved. (6) End stage renal disease: Code(s): N18.6 - End stage renal disease Status: Chronic Assessment and Plan: HD dialysis on Wednesday Nephrology following, on dialysis (7) HTN (hypertension): Qualifiers: Hypertension type: unspecified Qualified Code(s): I10 - Essential (primary) hypertension Code(s): I10 - Essential (primary) hypertension Status: Chronic Assessment and Plan: Not on antihypertensives Requiring midodrine for hypotension during dialysis which was increased by nephrology to 10 mg prior to treatment and 10 mg 2 hours into treatment as needed (8) COPD (chronic obstructive pulmonary disease): Qualifiers: COPD type: unspecified COPD Qualified Code(s): J44.9 - Chronic obstructive pulmonary disease, unspecified Code(s): J44.9 - Chronic obstructive pulmonary disease, unspecified Status: Acute Assessment and Plan: DuAlicia (9) Seizures: Code(s): R56.9 - Unspecified convulsions Status: Acute Assessment and Plan: Continue Keppra 500 mg BID (10) Bipolar 1 disorder: Code(s): F31.9 - Bipolar disorder, unspecified Status: Chronic Assessment and Plan: Continue Seroquel Time Spent With Patient Time with patient: 25 - 35 minutes Subjective Date/time seen: 04/10/25 09:34 Interval history: 65 year old female with past medical history of afib, diastolic heart failure, COPD, ESRD on dialysis, CHF, HTN, bipolar, SHELDON, and seizure disorder presents to the hospital for shortness of breath. Patient is pleasant lying comfortably in bed she continues to endorse dark stool at this time. Plan for EGD with GI tomorrow. She is tolerating her diet well and denies any nausea/vomiting or abdominal pain. She states on admission after receiving antibiotic for the UTI she was feeling better however yesterday afternoon she has developed increased dysuria and burning sensation with urination. Patient does have history of ESBL with resistance to ciprofloxacin in January. Discussed patient with the pharmacy and will transition her to meropenem for better coverage until the urine culture returns. Patient has no other complaints denying chest pain, shortness a breath, palpitations. Review of Systems Review of Systems: All systems reviewed & are unremarkable except as noted in HPI and below Exam Narrative: AF HR 72 RR 16 Spo2 99 BP 125/44 General: female in no acute respiratory distress who is nontoxic appearing, lying semi recumbent in bed. HEENT: Normocephalic. Atraumatic. Extraocular movement intact. Sclera clear and anicteric. No facial asymmetry. Chest: Lungs are clear to auscultation bilaterally. No wheezes or crackles. CV: Heart was regular rate and rhythm. Abd: Abdomen was soft. Nontender. Nondistended. Positive bowel sounds. Ext: No clubbing, cyanosis, or edema. DP pulses bilaterally. Neuro: Patient is alert and oriented x3. Speech is clear. Objective Data Vital Signs Vital Signs: Vital Signs - 24 hr 04/09/25 09:45 04/09/25 10:00 04/09/25 10:15 Temperature Pulse Rate 69 70 72 Respiratory Rate Blood Pressure 125/66 122/60 131/70 Pulse Oximetry Oxygen Delivery Oxygen Flow Rate Fraction of Inspired Oxygen 04/09/25 10:30 04/09/25 10:45 04/09/25 11:00 Temperature Pulse Rate 70 75 70 Respiratory Rate Blood Pressure 126/67 115/62 113/57 L Pulse Oximetry Oxygen Delivery Oxygen Flow Rate Fraction of Inspired Oxygen 04/09/25 11:27 04/09/25 11:44 04/09/25 11:50 Temperature Pulse Rate 68 85 69 Respiratory Rate Blood Pressure 112/56 L 101/52 L 116/60 Pulse Oximetry Oxygen Delivery Oxygen Flow Rate Fraction of Inspired Oxygen 04/09/25 12:00 04/09/25 12:15 04/09/25 12:22 Temperature Pulse Rate 69 69 68 Respiratory Rate Blood Pressure 127/63 126/66 116/63 Pulse Oximetry Oxygen Delivery Oxygen Flow Rate Fraction of Inspired Oxygen 04/09/25 12:28 04/09/25 14:17 04/09/25 14:38 Temperature 98.6 F 97.3 F L Pulse Rate 71 71 76 Respiratory Rate 18 18 20 Blood Pressure 121/58 L 113/60 Pulse Oximetry 100 100 Oxygen Delivery Oxygen Flow Rate Fraction of Inspired Oxygen 04/09/25 14:47 04/09/25 20:00 04/09/25 20:21 Temperature 96.9 F L Pulse Rate 76 70 Respiratory Rate 20 18 Blood Pressure 142/40 H Pulse Oximetry 100 100 Oxygen Delivery Nasal Cannula Oxygen Flow Rate 3 Fraction of Inspired Oxygen 04/09/25 20:59 04/09/25 21:10 04/09/25 23:19 Temperature Pulse Rate 71 71 Respiratory Rate 18 18 Blood Pressure Pulse Oximetry 99 Oxygen Delivery Nasal Cannula Oxygen Flow Rate 3 Fraction of Inspired Oxygen 04/10/25 00:35 04/10/25 02:29 04/10/25 02:40 Temperature Pulse Rate 71 71 Respiratory Rate 24 H 18 18 Blood Pressure Pulse Oximetry Oxygen Delivery BiPAP Oxygen Flow Rate Fraction of Inspired Oxygen 04/10/25 03:00 04/10/25 05:07 04/10/25 07:30 Temperature 96.6 F L Pulse Rate 60 73 Respiratory Rate 24 H 26 H 18 Blood Pressure 114/47 L Pulse Oximetry 96 Oxygen Delivery BiPAP Oxygen Flow Rate Fraction of Inspired Oxygen 04/10/25 07:30 04/10/25 07:37 Temperature Pulse Rate 70 Respiratory Rate 18 Blood Pressure Pulse Oximetry 99 Oxygen Delivery Nasal Cannula Oxygen Flow Rate 3 Fraction of Inspired Oxygen 32 Intake/Output Intake/Output: Intake & Output 04/07/25 04/08/25 04/09/25 04/10/25 23:59 23:59 23:59 23:59 Intake Total 1022.2 835 1470 250 Output Total 3150 375 4250 150 Balance -2127.8 460 -2780 100 Meds/Results Medications: Active Medications Generic Name Dose Route Start Last Admin Trade Name Freq PRN Reason Stop Dose Admin Acetaminophen 650 mg 04/06/25 17:25 Acetaminophen 325 Mg Tablet PO Q4H PRN Mild Pain (1-3) or Fever Hydrocodone Bitart/Acetaminophen 1 tab 04/06/25 17:25 04/10/25 05:29 Hydrocodone/Acetaminophen (*Crx) 5-325 Mg Tablet PO 1 tab Q4H PRN Administration Moderate Pain (4-6) Albuterol/Ipratropium 3 ml 04/06/25 14:00 04/10/25 07:35 Ipratropium 0.5 Mg/Albuterol Sulfate 2.5 Mg Ampul.Neb 3 Ml INHALATION 3 ml Q6HRT MARLEEN Administration Atorvastatin Calcium 40 mg 04/06/25 21:00 04/09/25 20:27 Atorvastatin 40 Mg Tablet PO 40 mg QHS MARLEEN Administration Ciprofloxacin 500 mg 04/10/25 12:00 Ciprofloxacin 500 Mg Tab PO DAILY@1200 MARLEEN Dextrose 12.5 gm 04/07/25 10:55 Dextrose 50% 25 Gm/50 Ml Syringe IV PUSH PRN PRN Hypoglycemia Protocol Docusate Sodium 100 mg 04/07/25 09:00 04/10/25 08:57 Docusate Sodium 100 Mg Capsule PO 100 mg BID MARLEEN Administration Ferrous Sulfate 325 mg 04/07/25 09:00 04/10/25 08:57 Ferrous Sulfate [address] BY MOUTH 325 mg DAILY MARLEEN Administration Furosemide 40 mg 04/06/25 20:45 04/10/25 08:57 Furosemide Inj 40 Mg/4 Ml Vial IV PUSH 40 mg BID MARLEEN Administration Gabapentin 100 mg 04/07/25 09:00 04/10/25 08:57 Gabapentin 100 Mg Capsule PO 100 mg BID MARLEEN Administration Glucose 15 gm 04/07/25 10:55 Glucose Oral Gel 15 Gm Of Glucse In 37.5 Gm Tube PO PRN PRN Hypoglycemia Protocol Hydroxyzine HCl 25 mg 04/07/25 04:05 04/10/25 08:57 Hydroxyzine Hcl 25 Mg Tablet PO 25 mg TID MARLEEN Administration Dextrose 1,000 mls @ 100 mls/hr 04/07/25 10:55 Dextrose 5% 1,000 Ml IVPB PRN PRN Hypoglycemia Protocol Albumin Human 50 mls @ 999 mls/hr 04/08/25 09:28 Albutein IVPB 05/08/25 09:27 Q10M PRN HYPOTENSION Insulin Aspart 2 - 5 units 04/07/25 12:00 04/10/25 08:43 Insulin Aspart (*Bkc) 100 Units/Ml SUB-Q Not Given TIDWM MARLEEN Protocol Insulin Aspart 1 - 2 units 04/07/25 21:00 04/10/25 00:00 Insulin Aspart (*Bkc) 100 Units/Ml SUB-Q Not Given HS MARLEEN Protocol Lactulose 30 gm 04/07/25 09:00 04/10/25 08:57 Lactulose 20 Gm/30 Ml Udc PO Not Given DAILY MARLEEN Levetiracetam 500 mg 04/07/25 03:25 04/10/25 08:57 Levetiracetam 500 Mg Tablet PO 500 mg Q12HR MARLEEN Administration Midodrine 10 mg 04/07/25 09:51 04/09/25 10:44 Midodrine Hcl 10 Mg Tablet PO 10 mg PRN PRN Administration half hour before dialysis and then 2 hours into dialysis Mupirocin 1 applic 04/07/25 11:30 04/10/25 09:00 Mupirocin 2% Oint 22 Gm Tube EACH NARE 04/11/25 21:01 1 applic Q12HR MARLEEN Administration Ondansetron HCl 4 mg 04/06/25 17:25 Ondansetron Inj 4 Mg/2 Ml Vial IV PUSH Q6H PRN Nausea And Vomiting Oxcarbazepine 150 mg 04/07/25 03:25 04/10/25 08:57 Oxcarbazepine 150 Mg Tablet PO 150 mg Q12HR MARLEEN Administration Pantoprazole Sodium 40 mg 04/07/25 21:00 04/10/25 08:57 Pantoprazole Sodium Iv 40 Mg Vial IV PUSH 40 mg Q12HR MARLEEN Administration Perflutren Lipid Microsphere 0 ml 04/07/25 14:02 Perflutren Lipid Microspheres 1.5 Ml Vial Diluted To 10 Ml Total Volume IV PUSH 04/10/25 14:02 ONCE PRN adequate visualization Protocol Perflutren Lipid Microsphere 0 ml 04/08/25 14:48 Perflutren Lipid Microspheres 1.5 Ml Vial Diluted To 10 Ml Total Volume IV PUSH 04/11/25 14:48 ONCE PRN adequate visualization Protocol Quetiapine Fumarate 50 mg 04/07/25 21:00 04/09/25 20:28 Quetiapine Fumarate 25 Mg Tablet PO 50 mg HS MARLEEN Administration Trazodone HCl 50 mg 04/06/25 21:00 04/09/25 20:28 Trazodone Hcl 50 Mg Tablet PO 50 mg HS MARLEEN Administration Radiology Results: ITS Impressions Chest X-Ray 04/06/25 12:18 Impression: 1: Cardiomegaly with pulmonary edema. Venous Doppler Study 04/07/25 18:31 IMPRESSION: Patent bilateral lower extremity veins. No evidence of deep venous thrombosis. Abdomen Ultrasound 04/08/25 23:15 IMPRESSION: Limited evaluation. The pancreas, spleen, and left kidney are poorly visualized. Limited parenchymal evaluation of the liver, with no surface nodularity to suggest cirrhosis. Normal size gallbladder, likely containing sludge and stones. Labs Labs: Laboratory Results - last 24 hr 04/09/25 04/09/25 04/09/25 12:57 16:54 20:13 WBC RBC Hgb Hct MCV MCH MCHC RDW Plt Count MPV Immature Gran % (Auto) Neut % (Auto) Lymph % (Auto) [place] % (Auto) Eos % (Auto) Baso % (Auto) Lymph # (Auto) [place] # (Auto) Eos # (Auto) Baso # (Auto) Abs Immat Gran (auto) Absolute Neuts (auto) Absolute Nucleated RBC Nucleated RBC % APTT Sodium Potassium Chloride Carbon Dioxide Anion Gap BUN Creatinine Estim Creat Clear Calc Estimated GFR Glucose POC Capillary Glucose 138 H 116 H 127 H Calcium Magnesium Total Bilirubin AST ALT Alkaline Phosphatase Total Protein Albumin 04/10/25 04/10/25 04:35 08:19 WBC 5.0 RBC 2.78 L Hgb 7.8 L Hct 27.1 L MCV 97.5 MCH 28.1 MCHC 28.8 L RDW 15.3 H Plt Count 160 MPV 9.1 Immature Gran % (Auto) 1.4 H Neut % (Auto) 72.3 Lymph % (Auto) 18.0 L [place] % (Auto) 8.3 Eos % (Auto) 0.0 Baso % (Auto) 0.0 L Lymph # (Auto) 0.89 L [place] # (Auto) 0.4 Eos # (Auto) 0.0 Baso # (Auto) 0.0 Abs Immat Gran (auto) 0.07 H Absolute Neuts (auto) 3.6 Absolute Nucleated RBC 0.020 H Nucleated RBC % 0.4 H APTT 27.6 Sodium 139 Potassium 4.4 Chloride 105 Carbon Dioxide 25 Anion Gap 9 BUN 23 H Creatinine 3.12 H Estim Creat Clear Calc 25 Estimated GFR 15 L Glucose 132 H POC Capillary Glucose 116 H Calcium 9.2 Magnesium 1.9 Total Bilirubin 0.4 AST 22 ALT 13 Alkaline Phosphatase 80 Total Protein 6.3 Albumin 3.4 L
--- NOTE | 2025-04-10 10:22 | P.PNNP_ITS ---
Progress Note: A&P Assessment and Plan (1) End stage renal disease: Code(s): N18.6 - End stage renal disease Status: Chronic Assessment and Plan: * HD tomorrow * continue outpatient schedule of Mondays, Wednesdays, and Fridays * follow electrolytes, volume status, and clearance (2) Volume overload: Code(s): E87.70 - Fluid overload, unspecified Status: Acute Assessment and Plan: * admission CXR with cardiomegaly and pulmonary edema * presumably precipitated by missed dialysis treatment prior to admission * clinically better s/p aggressive ultrafiltration/fluid removal with dialysis * continue current therapy/interventions (3) Anemia: Qualifiers: Anemia type: due to chronic kidney disease Chronic kidney disease stage: on chronic dialysis Qualified Code(s): N18.6 - End stage renal disease; D63.1 - Anemia in chronic kidney disease; Z99.2 - Dependence on renal dialysis Code(s): D64.9 - Anemia, unspecified Status: Acute Assessment and Plan: * partly due to ESRD * however, guaiac positive stool noted * GI recommendations noted -- possible EGD... * relatively stable * no evidence of iron deficiency by anemia studies * high dose Epogen with dialysis * follow trend of H/H (4) UTI (urinary tract infection): Code(s): N39.0 - Urinary tract infection, site not specified Status: Acute Assessment and Plan: * admission UA suggestive * urine culture with gram negative bacilli * on antibiotics (5) HTN (hypertension): Qualifiers: Hypertension type: unspecified Qualified Code(s): I10 - Essential (primary) hypertension Code(s): I10 - Essential (primary) hypertension Status: Chronic Assessment and Plan: * reasonable control * off antihypertensives at this time * on midodrine for dialysis purposes (6) Chronic respiratory failure with hypoxia: Code(s): J96.11 - Chronic respiratory failure with hypoxia Status: Chronic Assessment and Plan: * multifactorial: * COPD * SHELDON * OHS * CHF * pulmonary edema * on chronic supplemental oxygen * on BiPAP at the senior living * continue supportive therapy (7) Bipolar 1 disorder: Code(s): F31.9 - Bipolar disorder, unspecified Status: Chronic Assessment and Plan: * continue Seroquel (8) Left renal mass: Code(s): N28.89 - Other specified disorders of kidney and ureter Status: Chronic Assessment and Plan: * follows with Urology as an outpatient (concern is for malignancy) * per review of outside records, deemed to be a poor surgical candidate Will continue to follow. L Subjective Date/time seen: 04/10/25 10:22 Interval history: Follow-up for end stage renal disease on hemodialysis. Tolerated dialysis treatment yesterday with 3.8L fluid removal; other than generalized fatigue, no other acute complaints voiced at the time of my visit; H/H remains relatively stable; no other issues/events overnight or earlier this morning. Exam 2 Narrative: General: large but WD/WN female in NAD Heart: normal S1 and S2; no rub Lungs: clear anteriorly; coarse/diminished at bases Abdomen: soft, nontender, nondistended, positive bowel sounds Extremities: no cyanosis or clubbing; no edema Skin: warm and intact Objective Data Vital Signs Vital Signs: Vital Signs Temp Pulse Resp BP Pulse Ox O2 Del Method O2 Flow Rate 04/10/25 08:55 100 Nasal Cannula 3 04/10/25 08:00 96.5 F L 72 16 125/44 L 99 04/10/25 07:37 70 18 04/10/25 07:30 99 Nasal Cannula 3 04/10/25 07:30 73 18 04/10/25 05:07 96.6 F L 60 26 H 114/47 L 96 04/10/25 03:00 24 H BiPAP 04/10/25 02:40 71 18 04/10/25 02:29 71 18 04/10/25 00:35 24 H BiPAP 04/09/25 23:19 99 Nasal Cannula 3 04/09/25 21:10 71 18 04/09/25 20:59 71 18 04/09/25 20:21 96.9 F L 70 18 142/40 H 100 04/09/25 20:00 100 Nasal Cannula 3 Intake/Output Intake/Output: Intake & Output 04/07/25 04/08/25 04/09/25 04/10/25 23:59 23:59 23:59 23:59 Intake Total 1022.2 835 1670 1650 Output Total 3150 375 4250 400 Balance -2127.8 460 -2580 1250 Meds/Results Medications: Active Medications Generic Name Dose Route Start Last Admin Trade Name Freq PRN Reason Stop Dose Admin Acetaminophen 650 mg 04/06/25 17:25 Acetaminophen 325 Mg Tablet PO Q4H PRN Mild Pain (1-3) or Fever Hydrocodone Bitart/Acetaminophen 1 tab 04/06/25 17:25 04/10/25 17:08 Hydrocodone/Acetaminophen (*Crx) 5-325 Mg Tablet PO 1 tab Q4H PRN Administration Moderate Pain (4-6) Albuterol/Ipratropium 3 ml 04/06/25 14:00 04/10/25 14:22 Ipratropium 0.5 Mg/Albuterol Sulfate 2.5 Mg Ampul.Neb 3 Ml INHALATION 3 ml Q6HRT MARLEEN Administration Atorvastatin Calcium 40 mg 04/06/25 21:00 04/09/25 20:27 Atorvastatin 40 Mg Tablet PO 40 mg QHS MARLEEN Administration Dextrose 12.5 gm 04/07/25 10:55 Dextrose 50% 25 Gm/50 Ml Syringe IV PUSH PRN PRN Hypoglycemia Protocol Docusate Sodium 100 mg 04/07/25 09:00 04/10/25 17:08 Docusate Sodium 100 Mg Capsule PO 100 mg BID MARLEEN Administration Ferrous Sulfate 325 mg 04/07/25 09:00 04/10/25 08:57 Ferrous Sulfate [address] BY MOUTH 325 mg DAILY MARLEEN Administration Gabapentin 100 mg 04/07/25 09:00 04/10/25 17:08 Gabapentin 100 Mg Capsule PO 100 mg BID MARLEEN Administration Glucose 15 gm 04/07/25 10:55 Glucose Oral Gel 15 Gm Of Glucse In 37.5 Gm Tube PO PRN PRN Hypoglycemia Protocol Hydroxyzine HCl 25 mg 04/07/25 04:05 04/10/25 17:08 Hydroxyzine Hcl 25 Mg Tablet PO 25 mg TID MARLEEN Administration Dextrose 1,000 mls @ 100 mls/hr 04/07/25 10:55 Dextrose 5% 1,000 Ml IVPB PRN PRN Hypoglycemia Protocol Albumin Human 50 mls @ 999 mls/hr 04/08/25 09:28 Albutein IVPB 05/08/25 09:27 Q10M PRN HYPOTENSION Meropenem 500 mg/ Sodium 100 mls @ 200 mls/hr 04/10/25 15:00 04/10/25 17:37 Chloride IVPB Infused Q24H MARLEEN Infusion Insulin Aspart 2 - 5 units 04/07/25 12:00 04/10/25 17:08 Insulin Aspart (*Bkc) 100 Units/Ml SUB-Q Not Given TIDWM MARLEEN Protocol Insulin Aspart 1 - 2 units 04/07/25 21:00 04/10/25 00:00 Insulin Aspart (*Bkc) 100 Units/Ml SUB-Q Not Given HS MARLEEN Protocol Lactulose 30 gm 04/07/25 09:00 04/10/25 08:57 Lactulose 20 Gm/30 Ml Udc PO Not Given DAILY MARLEEN Levetiracetam 500 mg 04/07/25 03:25 04/10/25 08:57 Levetiracetam 500 Mg Tablet PO 500 mg Q12HR MARLEEN Administration Midodrine 10 mg 04/07/25 09:51 04/09/25 10:44 Midodrine Hcl 10 Mg Tablet PO 10 mg PRN PRN Administration half hour before dialysis and then 2 hours into dialysis Mupirocin 1 applic 04/07/25 11:30 04/10/25 09:00 Mupirocin 2% Oint 22 Gm Tube EACH NARE 04/11/25 21:01 1 applic Q12HR MARLEEN Administration Ondansetron HCl 4 mg 04/06/25 17:25 Ondansetron Inj 4 Mg/2 Ml Vial IV PUSH Q6H PRN Nausea And Vomiting Oxcarbazepine 150 mg 04/07/25 03:25 04/10/25 08:57 Oxcarbazepine 150 Mg Tablet PO 150 mg Q12HR MARLEEN Administration Pantoprazole Sodium 40 mg 04/07/25 21:00 04/10/25 08:57 Pantoprazole Sodium Iv 40 Mg Vial IV PUSH 40 mg Q12HR MARLEEN Administration Perflutren Lipid Microsphere 0 ml 04/08/25 14:48 Perflutren Lipid Microspheres 1.5 Ml Vial Diluted To 10 Ml Total Volume IV PUSH 04/11/25 14:48 ONCE PRN adequate visualization Protocol Perflutren Lipid Microsphere 0 ml 04/10/25 09:59 Perflutren Lipid Microspheres 1.5 Ml Vial Diluted To 10 Ml Total Volume IV PUSH 04/13/25 09:59 ONCE PRN adequate visualization Protocol Quetiapine Fumarate 50 mg 04/07/25 21:00 04/09/25 20:28 Quetiapine Fumarate 25 Mg Tablet PO 50 mg HS MARLEEN Administration Trazodone HCl 50 mg 04/06/25 21:00 04/09/25 20:28 Trazodone Hcl 50 Mg Tablet PO 50 mg HS MARLEEN Administration Radiology Results: ITS Impressions Chest X-Ray 04/06/25 12:18 Impression: 1: Cardiomegaly with pulmonary edema. Venous Doppler Study 04/07/25 18:31 IMPRESSION: Patent bilateral lower extremity veins. No evidence of deep venous thrombosis. Abdomen Ultrasound 04/08/25 23:15 IMPRESSION: Limited evaluation. The pancreas, spleen, and left kidney are poorly visualized. Limited parenchymal evaluation of the liver, with no surface nodularity to suggest cirrhosis. Normal size gallbladder, likely containing sludge and stones. Labs Labs: Laboratory Tests 04/10/25 04:35 04/10/25 04:35 Calcium 9.2 Magnesium 1.9 Total Bilirubin 0.4 AST 22 ALT 13 Alkaline Phosphatase 80 Total Protein 6.3 Albumin 3.4 L Microbiology 04/07/25 14:21 Blood Blood Culture - Preliminary 04/07/25 14:19 Blood Blood Culture - Preliminary 04/07/25 09:40 Urine [place] Urine Culture - Preliminary Gram negative bacilli isolated
[2025-04-10] MEDS: CIPROFLOXACIN 500 MG TAB PO (12:19)
[2025-04-10] MEDS: MEROPENEM 500 MG in SODIUM CHLORIDE 0.9% IV 100 ML 200 ML IVPB (17:07)
--- NOTE | 2025-04-10 17:24 | WPDGIPROGNO ---
Progress Note: A&P Assessment and Plan (1) Acute on chronic anemia: Code(s): D64.9 - Anemia, unspecified Status: Acute Assessment and Plan: stable and could be multifactorial, also on dialysis egd tomorrow no more signs of bleeding (2) Occult blood in stools: Code(s): R19.5 - Other fecal abnormalities Status: Acute (3) Chronic respiratory failure: Code(s): J96.10 - Chronic respiratory failure, unspecified whether with hypoxia or hypercapnia Status: Acute Assessment and Plan: stable, this has improved (4) Pulmonary edema: Code(s): J81.1 - Chronic pulmonary edema Status: Acute (5) End stage renal disease: Code(s): N18.6 - End stage renal disease Status: Chronic Subjective Date/time seen: 04/10/25 17:24 Interval history: just tired today, no new events Review of Systems Review of Systems: All systems reviewed & are unremarkable except as noted in HPI and below Exam Const: General: comfortable and no acute distress Other: chronically ill appearing obese HENMT: Face/Nose/Sinus: Normal nares present Eyes: General: appearance normal, both eyes and all related structures Neck: Neck: supple Resp: Auscultation: clear to auscultation bilaterally Other: using O2 by NC Cardio: Rate: regular rate Rhythm: regular rhythm GI: Inspection: non-distended GI Palp: Yes Soft to palpation and No Tenderness to palpation present (GI) Skin: General skin exam: normal color Neuro: Speech: normal speech Extrem: General: pedal edema Psych: Mental Status: mental status grossly normal Objective Data Vital Signs Vital Signs: Vital Signs - 24 hr 04/09/25 20:00 04/09/25 20:21 04/09/25 20:59 Temperature 96.9 F L Pulse Rate 70 71 Respiratory Rate 18 18 Blood Pressure 142/40 H Pulse Oximetry 100 100 Oxygen Delivery Nasal Cannula Oxygen Flow Rate 3 Fraction of Inspired Oxygen 04/09/25 21:10 04/09/25 23:19 04/10/25 00:35 Temperature Pulse Rate 71 Respiratory Rate 18 24 H Blood Pressure Pulse Oximetry 99 Oxygen Delivery Nasal Cannula BiPAP Oxygen Flow Rate 3 Fraction of Inspired Oxygen 04/10/25 02:29 04/10/25 02:40 04/10/25 03:00 Temperature Pulse Rate 71 71 Respiratory Rate 18 18 24 H Blood Pressure Pulse Oximetry Oxygen Delivery BiPAP Oxygen Flow Rate Fraction of Inspired Oxygen 04/10/25 05:07 04/10/25 07:30 04/10/25 07:30 Temperature 96.6 F L Pulse Rate 60 73 Respiratory Rate 26 H 18 Blood Pressure 114/47 L Pulse Oximetry 96 99 Oxygen Delivery Nasal Cannula Oxygen Flow Rate 3 Fraction of Inspired Oxygen 32 04/10/25 07:37 04/10/25 08:00 04/10/25 08:55 Temperature 96.5 F L Pulse Rate 70 72 Respiratory Rate 18 16 Blood Pressure 125/44 L Pulse Oximetry 99 100 Oxygen Delivery Nasal Cannula Oxygen Flow Rate 3 Fraction of Inspired Oxygen 04/10/25 14:23 04/10/25 14:37 04/10/25 16:00 Temperature 97 F L Pulse Rate 72 70 72 Respiratory Rate 18 20 18 Blood Pressure 134/55 L Pulse Oximetry 100 Oxygen Delivery Oxygen Flow Rate Fraction of Inspired Oxygen Intake/Output Intake/Output: Intake & Output 04/07/25 04/08/25 04/09/25 04/10/25 23:59 23:59 23:59 23:59 Intake Total 1022.2 835 1670 610 Output Total 3150 375 4250 150 Balance -2127.8 460 -2580 460 Meds/Results Medications: Active Medications Generic Name Dose Route Start Last Admin Trade Name Freq PRN Reason Stop Dose Admin Acetaminophen 650 mg 04/06/25 17:25 Acetaminophen 325 Mg Tablet PO Q4H PRN Mild Pain (1-3) or Fever Hydrocodone Bitart/Acetaminophen 1 tab 04/06/25 17:25 04/10/25 17:08 Hydrocodone/Acetaminophen (*Crx) 5-325 Mg Tablet PO 1 tab Q4H PRN Administration Moderate Pain (4-6) Albuterol/Ipratropium 3 ml 04/06/25 14:00 04/10/25 14:22 Ipratropium 0.5 Mg/Albuterol Sulfate 2.5 Mg Ampul.Neb 3 Ml INHALATION 3 ml Q6HRT MARLEEN Administration Atorvastatin Calcium 40 mg 04/06/25 21:00 04/09/25 20:27 Atorvastatin 40 Mg Tablet PO 40 mg QHS MARLEEN Administration Dextrose 12.5 gm 04/07/25 10:55 Dextrose 50% 25 Gm/50 Ml Syringe IV PUSH PRN PRN Hypoglycemia Protocol Docusate Sodium 100 mg 04/07/25 09:00 04/10/25 17:08 Docusate Sodium 100 Mg Capsule PO 100 mg BID MARLEEN Administration Ferrous Sulfate 325 mg 04/07/25 09:00 04/10/25 08:57 Ferrous Sulfate [address] BY MOUTH 325 mg DAILY MARLEEN Administration Gabapentin 100 mg 04/07/25 09:00 04/10/25 17:08 Gabapentin 100 Mg Capsule PO 100 mg BID MARLEEN Administration Glucose 15 gm 04/07/25 10:55 Glucose Oral Gel 15 Gm Of Glucse In 37.5 Gm Tube PO PRN PRN Hypoglycemia Protocol Hydroxyzine HCl 25 mg 04/07/25 04:05 04/10/25 17:08 Hydroxyzine Hcl 25 Mg Tablet PO 25 mg TID MARLEEN Administration Dextrose 1,000 mls @ 100 mls/hr 04/07/25 10:55 Dextrose 5% 1,000 Ml IVPB PRN PRN Hypoglycemia Protocol Albumin Human 50 mls @ 999 mls/hr 04/08/25 09:28 Albutein IVPB 05/08/25 09:27 Q10M PRN HYPOTENSION Meropenem 500 mg/ Sodium 100 mls @ 200 mls/hr 04/10/25 15:00 04/10/25 17:07 Chloride IVPB 200 mls/hr Q24H MARLEEN Administration Insulin Aspart 2 - 5 units 04/07/25 12:00 04/10/25 17:08 Insulin Aspart (*Bkc) 100 Units/Ml SUB-Q Not Given TIDWM MARLEEN Protocol Insulin Aspart 1 - 2 units 04/07/25 21:00 04/10/25 00:00 Insulin Aspart (*Bkc) 100 Units/Ml SUB-Q Not Given HS MARLEEN Protocol Lactulose 30 gm 04/07/25 09:00 04/10/25 08:57 Lactulose 20 Gm/30 Ml Udc PO Not Given DAILY MARLEEN Levetiracetam 500 mg 04/07/25 03:25 04/10/25 08:57 Levetiracetam 500 Mg Tablet PO 500 mg Q12HR MARLEEN Administration Midodrine 10 mg 04/07/25 09:51 04/09/25 10:44 Midodrine Hcl 10 Mg Tablet PO 10 mg PRN PRN Administration half hour before dialysis and then 2 hours into dialysis Mupirocin 1 applic 04/07/25 11:30 04/10/25 09:00 Mupirocin 2% Oint 22 Gm Tube EACH NARE 04/11/25 21:01 1 applic Q12HR MARLEEN Administration Ondansetron HCl 4 mg 04/06/25 17:25 Ondansetron Inj 4 Mg/2 Ml Vial IV PUSH Q6H PRN Nausea And Vomiting Oxcarbazepine 150 mg 04/07/25 03:25 04/10/25 08:57 Oxcarbazepine 150 Mg Tablet PO 150 mg Q12HR MARLEEN Administration Pantoprazole Sodium 40 mg 04/07/25 21:00 04/10/25 08:57 Pantoprazole Sodium Iv 40 Mg Vial IV PUSH 40 mg Q12HR MARLEEN Administration Perflutren Lipid Microsphere 0 ml 04/08/25 14:48 Perflutren Lipid Microspheres 1.5 Ml Vial Diluted To 10 Ml Total Volume IV PUSH 04/11/25 14:48 ONCE PRN adequate visualization Protocol Perflutren Lipid Microsphere 0 ml 04/10/25 09:59 Perflutren Lipid Microspheres 1.5 Ml Vial Diluted To 10 Ml Total Volume IV PUSH 04/13/25 09:59 ONCE PRN adequate visualization Protocol Quetiapine Fumarate 50 mg 04/07/25 21:00 04/09/25 20:28 Quetiapine Fumarate 25 Mg Tablet PO 50 mg HS MARLEEN Administration Trazodone HCl 50 mg 04/06/25 21:00 04/09/25 20:28 Trazodone Hcl 50 Mg Tablet PO 50 mg HS MARLEEN Administration Radiology Results: ITS Impressions Chest X-Ray 04/06/25 12:18 Impression: 1: Cardiomegaly with pulmonary edema. Venous Doppler Study 04/07/25 18:31 IMPRESSION: Patent bilateral lower extremity veins. No evidence of deep venous thrombosis. Abdomen Ultrasound 04/08/25 23:15 IMPRESSION: Limited evaluation. The pancreas, spleen, and left kidney are poorly visualized. Limited parenchymal evaluation of the liver, with no surface nodularity to suggest cirrhosis. Normal size gallbladder, likely containing sludge and stones. Labs Labs: Laboratory Results - last 24 hr 04/09/25 04/10/25 04/10/25 20:13 04:35 08:19 WBC 5.0 RBC 2.78 L Hgb 7.8 L Hct 27.1 L MCV 97.5 MCH 28.1 MCHC 28.8 L RDW 15.3 H Plt Count 160 MPV 9.1 Immature Gran % (Auto) 1.4 H Neut % (Auto) 72.3 Lymph % (Auto) 18.0 L Ector % (Auto) 8.3 Eos % (Auto) 0.0 Baso % (Auto) 0.0 L Lymph # (Auto) 0.89 L Ector # (Auto) 0.4 Eos # (Auto) 0.0 Baso # (Auto) 0.0 Abs Immat Gran (auto) 0.07 H Absolute Neuts (auto) 3.6 Absolute Nucleated RBC 0.020 H Nucleated RBC % 0.4 H APTT 27.6 Sodium 139 Potassium 4.4 Chloride 105 Carbon Dioxide 25 Anion Gap 9 BUN 23 H Creatinine 3.12 H Estim Creat Clear Calc 25 Estimated GFR 15 L Glucose 132 H POC Capillary Glucose 127 H 116 H Calcium 9.2 Magnesium 1.9 Total Bilirubin 0.4 AST 22 ALT 13 Alkaline Phosphatase 80 Total Protein 6.3 Albumin 3.4 L 04/10/25 04/10/25 11:58 17:00 WBC RBC Hgb Hct MCV MCH MCHC RDW Plt Count MPV Immature Gran % (Auto) Neut % (Auto) Lymph % (Auto) Ector % (Auto) Eos % (Auto) Baso % (Auto) Lymph # (Auto) Ector # (Auto) Eos # (Auto) Baso # (Auto) Abs Immat Gran (auto) Absolute Neuts (auto) Absolute Nucleated RBC Nucleated RBC % APTT Sodium Potassium Chloride Carbon Dioxide Anion Gap BUN Creatinine Estim Creat Clear Calc Estimated GFR Glucose POC Capillary Glucose 123 H 124 H Calcium Magnesium Total Bilirubin AST ALT Alkaline Phosphatase Total Protein Albumin
[2025-04-10] MEDS: ATORVASTATIN 40 MG TABLET PO (20:55)
[2025-04-11] VITALS (35 sets, daily range): BP systolic 107–149; BP diastolic 31–64; PULSE 63–82; RESP 14–24; TEMP 36.1–37.3; O2SAT 98–100
[2025-04-11] MEDS: IPRATROPIUM 0.5 MG/ALBUTEROL SULFATE 2.5 MG AMPUL.NEB 3 ML INHALATION ×3 (02:53→20:57)
--- NOTE | 2025-04-11 07:01 | P.PNIM_ITS ---
Progress Note: A&P Assessment and Plan (1) Occult blood in stools: Code(s): R19.5 - Other fecal abnormalities Status: Acute Assessment and Plan: * Occult stool positive and anemia * Monitor serum electrolytes, CBC, hemoglobin/hematocrit q.8 hours. If hemoglobin drops below 7 transfuse packed red blood cells * Monitor for bloody bowel movements,chest pain,SOB or dizziness/lightheadedness * Pantoprazole BID - change to PO * DVT Px: SCDs * GI consult * Plan for EGD this afternoon (04/11) * US liver: unremarkable * Echo obtained, LVEF 65-70% no valvular abnormalities (2) UTI (urinary tract infection): Code(s): N39.0 - Urinary tract infection, site not specified Status: Acute Assessment and Plan: * Patient states that she was feeling better originally on the cipro however overnight developed worsening dysuria and burning * UA concerning for infection * UC: gram negative bacilli * Prior ESBL on 01/12/25 * started on cipro 04/07, transitioned to meropenem on 04/10 * webber catheter discontinued, discussed with nephrology and in agreement with removal * Culture still pending at this time (3) CHF (congestive heart failure): Qualifiers: Heart failure chronicity: unspecified Heart failure type: unspecified Qualified Code(s): I50.9 - Heart failure, unspecified Code(s): I50.9 - Heart failure, unspecified Status: Acute Assessment and Plan: * Current medications: IV lasix 40 mg BID discontinued on 04/10 as patient does not produce much urine, discussed with nephrology Dr. Calix * BNP: 5050 * Chest XR: Cardiomegaly with pulmonary edema. * Remains on baseline 3L NC * Echo 65-70% with no valvular abnormalities * Nephrology following, continue dialysis for fluid overload * Monitor vital signs, I&Os, BUN/creatinine, daily weights, neuro status and patient is a fall risk * Monitor serum electrolytes, Keep serum Potassium>4 and serum Magnesium>2 and CBC * Does not appear to be fluid overloaded on exam (4) Anemia: Qualifiers: Anemia type: due to chronic kidney disease Chronic kidney disease stage: on chronic dialysis Qualified Code(s): N18.6 - End stage renal disease; D63.1 - Anemia in chronic kidney disease; Z99.2 - Dependence on renal dialysis Code(s): D64.9 - Anemia, unspecified Status: Acute Assessment and Plan: * Hgb 9.2 on admission, and currently staying stable in the 7 range * Iron WNL * Isat 46, EPO per Nephrology * Concern for possible GI bleed * See plan above * EGD today (5) Hyperkalemia: Code(s): E87.5 - Hyperkalemia Status: Acute Assessment and Plan: * Hyperkalemia on admission, received dialysis and has since resolved. (6) End stage renal disease: Code(s): N18.6 - End stage renal disease Status: Chronic Assessment and Plan: * HD dialysis on Wednesday * Nephrology following, on dialysis * Dialysis today (7) HTN (hypertension): Qualifiers: Hypertension type: unspecified Qualified Code(s): I10 - Essential (prim valentin) hypertension Code(s): I10 - Essential (primary) hypertension Status: Chronic Assessment and Plan: * Not on antihypertensives * Requiring midodrine for hypotension during dialysis which was increased by nephrology to 10 mg prior to treatment and 10 mg 2 hours into treatment as needed * Stable (8) COPD (chronic obstructive pulmonary disease): Qualifiers: COPD type: unspecified COPD Qualified Code(s): J44.9 - Chronic obstructive pulmonary disease, unspecified Code(s): J44.9 - Chronic obstructive pulmonary disease, unspecified Status: Acute Assessment and Plan: * DuoNebs (9) Seizures: Code(s): R56.9 - Unspecified convulsions Status: Acute Assessment and Plan: * Continue Keppra 500 mg BID (10) Bipolar 1 disorder: Code(s): F31.9 - Bipolar disorder, unspecified Status: Chronic Assessment and Plan: * Continue Seroquel Subjective Date/time seen: 04/11/25 07:01 Interval history: 65 year old female with past medical history of afib, diastolic heart failure, C OPD, ESRD on dialysis, CHF, HTN, bipolar, SHELDON, and seizure disorder presents to the hospital for shortness of breath. 04/11/2025 Patient sitting comfortably in bed at time of examination. Denies any chest pain, shortness of breath, nausea/vomiting at this time. Underwent dialysis this morning without complications. Planning for EGD this afternoon. Changing Protonix to p.o.. Patient otherwise stable and has no complaints. Review of Systems Review of Systems: 12 systems were reviewed and are negativ e except for as per HPI. All systems reviewed & are unremarkable except as noted in HPI and below Exam Narrative: AF HR 72 RR 16 Spo2 99 BP 125/44 General: female in no acute respiratory distress who is nontoxic appearing, lying semi recumbent in bed. HEENT: Normocephalic. Atraumatic. Extraocular movement intact. Sclera clear and anicteric. No facial asymmetry. Chest: Lungs are clear to auscultation bilaterally. No wheezes or crackles. CV: Heart was regular rate and rhythm. Abd: Abdomen was soft. Nontender. Nondistended. Positive bowel sounds. Ext: No clubbing, cyanosis, or edema. DP pulses bilaterally. Neuro: Patient is alert and oriented x3. Speech is clear. Objective Data Vital Signs Vital Signs: Vital Signs - 24 hr 04/10/25 07:30 04/10/25 07:30 04/10/25 07:37 Temperature Pulse Rate 73 70 Respiratory Rate 18 18 Blood Pressure Pulse Oximetry 99 Oxygen Delivery Nasal Cannula Oxygen Flow Rate 3 Fraction of Inspired Oxygen 32 04/10/25 08:00 04/10/25 08:55 04/10/25 14:23 Temperature 96.5 F L Pulse Rate 72 72 Respiratory Rate 16 18 Blood Pressure 125/44 L Pulse Oximetry 99 100 Oxygen Delivery Nasal Cannula Oxygen Flow Rate 3 Fraction of Inspired Oxygen 04/10/25 14:37 04/10/25 16:00 04/10/25 20:40 Temperature 97 F L Pulse Rate 70 72 Respiratory Rate 20 18 Blood Pressure 134/55 L Pulse Oximetry 100 100 Oxygen Delivery Nasal Cannula Oxygen Flow Rate 3 Fraction of Inspired Oxygen 04/10/25 20:46 04/10/25 20:55 04/10/25 21:10 Temperature 97.4 F L Pulse Rate 68 63 74 Respiratory Rate 20 18 18 Blood Pressure 133/50 L Pulse Oximetry 100 Oxygen Delivery Oxygen Flow Rate Fraction of Inspired Oxygen 04/11/25 00:35 04/11/25 02:57 04/11/25 05:49 Temperature 97.7 F Pulse Rate 74 Respiratory Rate 24 H 24 H 16 Blood Pressure 120/50 L Pulse Oximetry 100 Oxygen Delivery BiPAP BiPAP Oxygen Flow Rate Fraction of Inspired Oxygen Intake/Output Intake/Output: Intake & Output 04/08/25 04/09/25 04/10/25 04/11/25 23:59 23:59 23:59 23:59 Intake Total 835 1670 1650 400 Output Total 375 4250 400 250 Balance 460 -2580 1250 150 Meds/Results Medications: Active Medications Generic Name Dose Route Start Last Admin Trade Name Freq PRN Reason Stop Dose Admin Acetaminophen 650 mg 04/06/25 17:25 Acetaminophen 325 Mg Tablet PO Q4H PRN Mild Pain (1-3) or Fever Hydrocodone Bitart/Acetaminophen 1 tab 04/06/25 17:25 04/10/25 17:08 Hydrocodone/Acetaminophen (*Crx) 5-325 Mg Tablet PO 1 tab Q4H PRN Administration Moderate Pain (4-6) Albuterol/Ipratropium 3 ml 04/06/25 14:00 04/11/25 02:53 Ipratropium 0.5 Mg/Albuterol Sulfate 2.5 Mg Ampul.Neb 3 Ml INHALATION 3 ml Q6HRT MARLEEN Administration Atorvastatin Calcium 40 mg 04/06/25 21:00 04/10/25 20:55 Atorvastatin 40 Mg Tablet PO 40 mg QHS MARLEEN Administration Dextrose 12.5 gm 04/07/25 10:55 Dextrose 50% 25 Gm/50 Ml Syringe IV PUSH PRN PRN Hypoglycemia Protocol Docusate Sodium 100 mg 04/07/25 09:00 04/10/25 17:08 Docusate Sodium 100 Mg Capsule PO 100 mg BID MARLEEN Administration Epoetin Ilya-epbx 20,000 units 04/11/25 18:28 Epoetin Ilya-Epbx 20,000 Units/Ml Vial IV PUSH 04/11/25 18:29 ONCE ONE Ferrous Sulfate 325 mg 04/07/25 09:00 04/10/25 08:57 Ferrous Sulfate [address] BY MOUTH 325 mg DAILY MARLEEN Administration Gabapentin 100 mg 04/07/25 09:00 04/10/25 17:08 Gabapentin 100 Mg Capsule PO 100 mg BID MARLEEN Administration Glucose 15 gm 04/07/25 10:55 Glucose Oral Gel 15 Gm Of Glucse In 37.5 Gm Tube PO PRN PRN Hypoglycemia Protocol Hydroxyzine HCl 25 mg 04/07/25 04:05 04/10/25 17:08 Hydroxyzine Hcl 25 Mg Tablet PO 25 mg TID MARLEEN Administration Dextrose 1,000 mls @ 100 mls/hr 04/07/25 10:55 Dextrose 5% 1,000 Ml IVPB PRN PRN Hypoglycemia Protocol Albumin Human 50 mls @ 999 mls/hr 04/08/25 09:28 Albutein IVPB 05/08/25 09:27 Q10M PRN HYPOTENSION Meropenem 500 mg/ Sodium 100 mls @ 200 mls/hr 04/10/25 15:00 04/10/25 17:37 Chloride IVPB Infused Q24H MARLEEN Infusion Sodium Chloride 1,000 mls @ 999 mls/hr 04/11/25 06:27 Normal Saline Iv IV CONT 04/11/25 07:27 .Q1H1M ONE Insulin Aspart 2 - 5 units 04/07/25 12:00 04/10/25 17:08 Insulin Aspart (*Bkc) 100 Units/Ml SUB-Q Not Given TIDWM MARLEEN Protocol Insulin Aspart 1 - 2 units 04/07/25 21:00 04/10/25 20:52 Insulin Aspart (*Bkc) 100 Units/Ml SUB-Q Not Given HS MARLEEN Protocol Lactulose 30 gm 04/07/25 09:00 04/10/25 08:57 Lactulose 20 Gm/30 Ml Udc PO Not Given DAILY MARLEEN Levetiracetam 500 mg 04/07/25 03:25 04/10/25 20:54 Levetiracetam 500 Mg Tablet PO 500 mg Q12HR MARLEEN Administration Midodrine 10 mg 04/07/25 09:51 04/09/25 10:44 Midodrine Hcl 10 Mg Tablet PO 10 mg PRN PRN Administration half hour before dialysis and then 2 hours into dialysis Mupirocin 1 applic 04/07/25 11:30 04/10/25 20:55 Mupirocin 2% Oint 22 Gm Tube EACH NARE 04/11/25 21:01 1 applic Q12HR MARLEEN Administration Ondansetron HCl 4 mg 04/06/25 17:25 Ondansetron Inj 4 Mg/2 Ml Vial IV PUSH Q6H PRN Nausea And Vomiting Oxcarbazepine 150 mg 04/07/25 03:25 04/10/25 20:55 Oxcarbazepine 150 Mg Tablet PO 150 mg Q12HR MARLEEN Administration Pantoprazole Sodium 40 mg 04/07/25 21:00 04/10/25 20:55 Pantoprazole Sodium Iv 40 Mg Vial IV PUSH 40 mg Q12HR MARLEEN Administration Perflutren Lipid Microsphere 0 ml 04/08/25 14:48 Perflutren Lipid Microspheres 1.5 Ml Vial Diluted To 10 Ml Total Volume IV PUSH 04/11/25 14:48 ONCE PRN adequate visualization Protocol Perflutren Lipid Microsphere 0 ml 04/10/25 09:59 Perflutren Lipid Microspheres 1.5 Ml Vial Diluted To 10 Ml Total Volume IV PUSH 04/13/25 09:59 ONCE PRN adequate visualization Protocol Quetiapine Fumarate 50 mg 04/07/25 21:00 04/10/25 20:54 Quetiapine Fumarate 25 Mg Tablet PO 50 mg HS MARLEEN Administration Trazodone HCl 50 mg 04/06/25 21:00 04/10/25 20:54 Trazodone Hcl 50 Mg Tablet PO 50 mg HS MARLEEN Administration Radiology Results: ITS Impressions Chest X-Ray 04/06/25 12:18 Impression: 1: Cardiomegaly with pulmonary edema. Venous Doppler Study 04/07/25 18:31 IMPRESSION: Patent bilateral lower extremity veins. No evidence of deep venous thrombosis. Abdomen Ultrasound 04/08/25 23:15 IMPRESSION: Limited evaluation. The pancreas, spleen, and left kidney are poorly visualized. Limited parenchymal evaluation of the liver, with no surface nodularity to suggest cirrhosis. Normal size gallbladder, likely containing sludge and stones. Labs Labs: Laboratory Results - last 24 hr 04/10/25 04/10/25 04/10/25 08:19 11:58 17:00 POC Capillary Glucose 116 H 123 H 124 H 04/10/25 20:51 POC Capillary Glucose 108 H Quality VTE Prophylaxis VTE prophylaxis: mechanical ordered
[2025-04-11] MEDS: MIDODRINE HCL 10 MG TABLET PO (07:50)
[2025-04-11] MEDS: HYDROcodone/acetaminophen (*CRX) 5-325 MG TABLET 1 TAB PO ×3 (07:50→20:37)
[2025-04-11 07:52] LABS: Hematocrit 27.7 % (37.0-47.0); Hemoglobin 8.1 g/dL (12.0-15.0); Immature Granulocyte Percent A 1.1 % (0-0.5); Lymphocytes Absolute Auto 0.87 K/mm3 (0.9-3.2); Mean Corpuscular HGB Conc 29.2 g/dl (32-36); Mean Corpuscular Hemoglobin 28.7 pg (26-34); Mean Corpuscular Volume 98.2 fl (80-100); Nucleated Red Blood Cells Absolute Auto 0.000 K/mm3 (0.0-0.012); Nucleated Red Blood Cells Perc 0.0 % (0.0-0.2); Platelet Count Result 149 k/mm3 (150-375); Red Blood Count 2.82 M/mm3 (4.2-5.4); White Blood Count 5.4 K/mm3 (4.5-10.0)
[2025-04-11 08:41] LABS: Alanine Aminotransferase 14 U/L (6-35); Albumin Level 3.5 g/dL (3.5-5.1); Alkaline Phosphatase 81 U/L (38-126); Anion Gap 6 mmol/L (4-12); Aspartate Amino Transferase 23 U/L (14-36); Bilirubin,Total 0.3 mg/dL (0.2-1.3); Blood Urea Nitrogen 37 mg/dL (7-17); Calcium 9.4 mg/dL (8.4-10.2); Carbon Dioxide 28 mmol/L (22-30); Chloride 105 mmol/L (98-107); Estimated CRCL calculation 17 ml/min; Estimated Glomerular Filt Rate 9; Glucose 128 mg/dL (65-110); Potassium 4.9 mmol/L (3.4-5.0); Sodium 139 mmol/L (137-145); Total Protein 6.4 g/dL (6.3-8.2)
[2025-04-11 08:59] LABS: Anisocytosis 1+; Hypochromasia 2+; Polychromasia 1+; Schistocytes None Seen
[2025-04-11 09:00] LABS: Tear Drop Cells 1+
[2025-04-11] MEDS: SODIUM CHLORIDE 0.9% IV 1,000 ML 999 ML IV CONT (10:05)
[2025-04-11] MEDS: EPOETIN ALFA-EPBX 20,000 UNITS/ML VIAL 20000 UNITS IV PUSH (10:05)
--- NOTE | 2025-04-11 12:10 | P.PNNP_ITS ---
Progress Note: A&P Assessment and Plan (1) End stage renal disease: Code(s): N18.6 - End stage renal disease Status: Chronic Assessment and Plan: * HD today * continue outpatient schedule of Mondays, Wednesdays, and Fridays * follow electrolytes, volume status, and clearance (2) Volume overload: Code(s): E87.70 - Fluid overload, unspecified Status: Acute Assessment and Plan: * admission CXR with cardiomegaly and pulmonary edema * presumably precipitated by missed dialysis treatment prior to admission * clinically better s/p aggressive ultrafiltration/fluid removal with dialysis * continue current therapy/interventions (3) Anemia: Qualifiers: Anemia type: due to chronic kidney disease Chronic kidney disease stage: on chronic dialysis Qualified Code(s): N18.6 - End stage renal disease; D63.1 - Anemia in chronic kidney disease; Z99.2 - Dependence on renal dialysis Code(s): D64.9 - Anemia, unspecified Status: Acute Assessment and Plan: * partly due to ESRD * however, guaiac positive stool noted * GI recommendations noted -- EGD this afternoon * H/H relatively stable * no evidence of iron deficiency by anemia studies * high dose Epogen with dialysis * follow trend of H/H (4) UTI (urinary tract infection): Code(s): N39.0 - Urinary tract infection, site not specified Status: Acute Assessment and Plan: * admission UA suggestive * urine culture with gram negative bacilli * on antibiotics (5) HTN (hypertension): Qualifiers: Hypertension type: unspecified Qualified Code(s): I10 - Essential (primary) hypertension Code(s): I10 - Essential (primary) hypertension Status: Chronic Assessment and Plan: * reasonable control * off antihypertensives at this time * on midodrine for dialysis purposes (6) Chronic respiratory failure with hypoxia: Code(s): J96.11 - Chronic respiratory failure with hypoxia Status: Chronic Assessment and Plan: * multifactorial: * COPD * SHELDON * OHS * CHF * pulmonary edema * on chronic supplemental oxygen * [facility] * continue supportive therapy (7) Bipolar 1 disorder: Code(s): F31.9 - Bipolar disorder, unspecified Status: Chronic Assessment and Plan: * continue Seroquel (8) Left renal mass: Code(s): N28.89 - Other specified disorders of kidney and ureter Status: Chronic Assessment and Plan: * follows with Urology as an outpatient (concern is for malignancy) * per review of outside records, deemed to be a poor surgical candidate Will continue to follow. L Subjective Date/time seen: 04/11/25 12:10 Interval history: Follow-up for end stage renal disease on hemodialysis. Tolerating dialysis treatment at the time of my visit (seen on HD at 12:00PM); no new issues or problems voiced when seen; noted plan for EGD this afternoon although H/H is stable (if not a bit better); no other issues/events overnight or earlier this morning. Exam 2 Narrative: General: large but WD/WN female in NAD Heart: normal S1 and S2; no rub Lungs: clear anteriorly; coarse/diminished at bases Abdomen: soft, nontender, nondistended, positive bowel sounds Extremities: no cyanosis or clubbing; no edema Skin: no rash Objective Data Vital Signs Vital Signs: Vital Signs Temp Pulse Resp BP Pulse Ox O2 Del Method O2 Flow Rate 04/11/25 12:10 98.1 F 68 14 137/57 L 100 04/11/25 12:02 68 132/54 L 04/11/25 11:45 68 127/60 04/11/25 11:30 65 123/56 L 04/11/25 11:15 64 118/55 L 04/11/25 11:00 67 128/59 L 04/11/25 10:45 64 122/49 L 04/11/25 10:30 65 119/55 L 04/11/25 10:15 72 148/64 H 04/11/25 10:00 68 127/52 L 04/11/25 09:45 74 129/61 04/11/25 09:30 68 124/49 L 04/11/25 09:15 66 118/54 L 04/11/25 09:00 65 122/49 L 04/11/25 08:45 63 133/63 04/11/25 08:31 65 149/63 H 04/11/25 08:20 3 04/11/25 08:20 98.4 F 75 14 107/54 L 100 04/11/25 07:50 99 Nasal Cannula 3 04/11/25 05:49 97.7 F 74 16 120/50 L 100 04/11/25 02:57 24 H BiPAP 04/11/25 00:35 24 H BiPAP 04/10/25 21:10 74 18 04/10/25 20:55 63 18 04/10/25 20:46 97.4 F L 68 20 133/50 L 100 04/10/25 20:40 100 Nasal Cannula 3 Intake/Output Intake/Output: Intake & Output 04/08/25 04/09/25 04/10/25 04/11/25 23:59 23:59 23:59 23:59 Intake Total 835 1670 1650 400 Output Total 375 4250 400 4650 Balance 460 -2580 1250 -4250 Meds/Results Medications: Active Medications Generic Name Dose Route Start Last Admin Trade Name Freq PRN Reason Stop Dose Admin Acetaminophen 650 mg 04/06/25 17:25 Acetaminophen 325 Mg Tablet PO Q4H PRN Mild Pain (1-3) or Fever Hydrocodone Bitart/Acetaminophen 1 tab 04/06/25 17:25 04/11/25 07:50 Hydrocodone/Acetaminophen (*Crx) 5-325 Mg Tablet PO 1 tab Q4H PRN Administration Moderate Pain (4-6) Albuterol/Ipratropium 3 ml 04/06/25 14:00 04/11/25 13:56 Ipratropium 0.5 Mg/Albuterol Sulfate 2.5 Mg Ampul.Neb 3 Ml INHALATION 3 ml Q6HRT MARLEEN Administration Atorvastatin Calcium 40 mg 04/06/25 21:00 04/10/25 20:55 Atorvastatin 40 Mg Tablet PO 40 mg QHS MARLEEN Administration Dextrose 12.5 gm 04/07/25 10:55 Dextrose 50% 25 Gm/50 Ml Syringe IV PUSH PRN PRN Hypoglycemia Protocol Docusate Sodium 100 mg 04/07/25 09:00 04/11/25 08:46 Docusate Sodium 100 Mg Capsule PO Not Given BID MARLEEN Epoetin Ilya-epbx 20,000 units 04/11/25 18:28 04/11/25 10:05 Epoetin Ilya-Epbx 20,000 Units/Ml Vial IV PUSH 04/11/25 18:29 20,000 units ONCE ONE Administration Ferrous Sulfate 325 mg 04/07/25 09:00 04/11/25 08:47 Ferrous Sulfate [address] BY MOUTH Not Given DAILY [facility] Gabapentin 100 mg 04/07/25 09:00 04/11/25 08:47 Gabapentin 100 Mg Capsule PO Not Given BID MARLEEN Glucose 15 gm 04/07/25 10:55 Glucose Oral Gel 15 Gm Of Glucse In 37.5 Gm Tube PO PRN PRN Hypoglycemia Protocol Hydroxyzine HCl 25 mg 04/07/25 04:05 04/11/25 12:15 Hydroxyzine Hcl 25 Mg Tablet PO Not Given TID MARLEEN Dextrose 1,000 mls @ 100 mls/hr 04/07/25 10:55 Dextrose 5% 1,000 Ml IVPB PRN PRN Hypoglycemia Protocol Albumin Human 50 mls @ 999 mls/hr 04/08/25 09:28 Albutein IVPB 05/08/25 09:27 Q10M PRN HYPOTENSION Meropenem 500 mg/ Sodium 100 mls @ 200 mls/hr 04/10/25 15:00 04/10/25 17:37 Chloride IVPB Infused Q24H MARLEEN Infusion Sodium Chloride 500 mls @ 10 mls/hr 04/11/25 14:20 04/11/25 14:24 Normal Saline Iv IV CONT 10 mls/hr .Q24H MARLEEN Administration Insulin Aspart 2 - 5 units 04/07/25 12:00 04/11/25 11:54 Insulin Aspart (*Bkc) 100 Units/Ml SUB-Q Not Given TIDWM MARLEEN Protocol Insulin Aspart 1 - 2 units 04/07/25 21:00 04/10/25 20:52 Insulin Aspart (*Bkc) 100 Units/Ml SUB-Q Not Given HS MARLEEN Protocol Lactulose 30 gm 04/07/25 09:00 04/11/25 08:47 Lactulose 20 Gm/30 Ml Udc PO Not Given DAILY MARLEEN Levetiracetam 500 mg 04/07/25 03:25 04/11/25 12:16 Levetiracetam 500 Mg Tablet PO Not Given Q12HR MARLEEN Midodrine 10 mg 04/07/25 09:51 04/11/25 07:50 Midodrine Hcl 10 Mg Tablet PO 10 mg PRN PRN Administration half hour before dialysis and then 2 hours into dialysis Mupirocin 1 applic 04/07/25 11:30 04/11/25 12:27 Mupirocin 2% Oint 22 Gm Tube EACH NARE 04/11/25 21:01 1 applic Q12HR MARLEEN Administration Ondansetron HCl 4 mg 04/06/25 17:25 Ondansetron Inj 4 Mg/2 Ml Vial IV PUSH Q6H PRN Nausea And Vomiting Oxcarbazepine 150 mg 04/07/25 03:25 04/11/25 08:47 Oxcarbazepine 150 Mg Tablet PO Not Given Q12HR MARLEEN Pantoprazole Sodium 40 mg 04/11/25 21:00 Pantoprazole 40 Mg Tablet PO Q12HR MARLEEN Perflutren Lipid Microsphere 0 ml 04/08/25 14:48 Perflutren Lipid Microspheres 1.5 Ml Vial Diluted To 10 Ml Total Volume IV PUSH 04/11/25 14:48 ONCE PRN adequate visualization Protocol Perflutren Lipid Microsphere 0 ml 04/10/25 09:59 Perflutren Lipid Microspheres 1.5 Ml Vial Diluted To 10 Ml Total Volume IV PUSH 04/13/25 09:59 ONCE PRN adequate visualization Protocol Quetiapine Fumarate 50 mg 04/07/25 21:00 04/10/25 20:54 Quetiapine Fumarate 25 Mg Tablet PO 50 mg HS MARLEEN Administration Trazodone HCl 50 mg 04/06/25 21:00 04/10/25 20:54 Trazodone Hcl 50 Mg Tablet PO 50 mg HS MARLEEN Administration Radiology Results: ITS Impressions Chest X-Ray 04/06/25 12:18 Impression: 1: Cardiomegaly with pulmonary edema. Venous Doppler Study 04/07/25 18:31 IMPRESSION: Patent bilateral lower extremity veins. No evidence of deep venous thrombosis. Abdomen Ultrasound 04/08/25 23:15 IMPRESSION: Limited evaluation. The pancreas, spleen, and left kidney are poorly visualized. Limited parenchymal evaluation of the liver, with no surface nodularity to suggest cirrhosis. Normal size gallbladder, likely containing sludge and stones. Labs Labs: Laboratory Tests 04/11/25 07:15 04/11/25 07:15 Calcium 9.4 Total Bilirubin 0.3 AST 23 ALT 14 Alkaline Phosphatase 81 Total Protein 6.4 Albumin 3.5 Microbiology 04/07/25 09:40 Urine [place] Urine Culture - Preliminary Gram negative bacilli isolated 04/07/25 14:21 Blood Blood Culture - Preliminary 04/07/25 14:19 Blood Blood Culture - Preliminary
[2025-04-11] MEDS: MUPIROCIN 2% OINT 22 GM TUBE 1 APPLIC EACH NARE ×2 (12:27→20:37)
[2025-04-11] MEDS: PANTOPRAZOLE SODIUM IV 40 MG VIAL IV PUSH (12:27)
--- NOTE | 2025-04-11 14:10 | PC.NURSE ---
Patient off floor to GI lab via stretcher.
[2025-04-11] MEDS: SODIUM CHLORIDE 0.9% IV 500 ML 10 ML IV CONT (14:24)
--- NOTE | 2025-04-11 14:31 | P.PNAN_ITS ---
Anes - Initial Pre Proc Eval Procedure: Operation Date: 04/11/25 15:00 Proposed Procedures p Esophagogastroduodenoscopy - Tyshawn Will MD Date/Time: 04/11/25 14:31 Surgeon: Mason Durham MD Pre Op Diagnosis: chf exacerbation,concern in pe Patient Data Age: 65 Gender: F Height: 1.7 m Weight: 153.6 kg Last Vital Signs Temp 97 F L 04/11/25 14:20 Pulse 70 04/11/25 14:20 Resp 18 04/11/25 14:20 BP 115/40 L 04/11/25 14:20 Pulse Ox 100 04/11/25 14:20 O2 Del Method Nasal Cannula 04/11/25 14:20 O2 Flow Rate 3 04/11/25 14:20 FiO2 32 04/10/25 07:30 Allergies Allergy/AdvReac Type Severity Reaction Status Date / Time Penicillins Allergy Severe Anaphylaxis Verified 04/07/25 00:09 Home Medications ?Medication ?Instructions ?Recorded ?Confirmed ?Type atorvastatin 40 mg tablet 40 mg PO QHS 06/30/21 04/07/25 History ferrous sulfate 325 mg (65 mg 325 mg PO DAILY 06/30/21 04/07/25 History iron) tablet fluticasone propionate 50 1 spray intranasal DAILY 06/30/21 04/07/25 History mcg/actuation nasal spray,suspension hydrocodone 5 mg-acetaminophen 325 1 tablet PO Q8H PRN Pain Rated 4-6 06/30/21 04/07/25 History mg tablet levetiracetam 500 mg tablet 500 mg PO BID 06/30/21 04/07/25 History acetaminophen 325 mg tablet 650 mg PO Q6H PRN fever or pain 01/13/25 04/07/25 History (Aminofen) albuterol 90 mcg-budesonide 80 2 inh inhalation .every 6 hours 01/13/25 04/07/25 History mcg/actuation HFA aerosol inhaler PRN shortness of breath or wheezing (Airsupra) baclofen 5 mg tablet 5 mg PO BID 01/13/25 04/07/25 History cholecalciferol (vitamin D3) 50 2,000 unit PO DAILY 01/13/25 04/07/25 History mcg (2,000 unit) capsule diclofenac sodium 1 % topical gel 1 ea topical Q6H PRN pain 05/03/25 07/25/25 History (Arthritis Pain (diclofenac)) diphenhydramine HCl 25 mg capsule 50 mg PO Q8H PRN allergy symptoms 01/13/25 04/07/25 History (Aler-Cap) ergocalciferol (vitamin D2) 1,250 1,250 mcg PO WEEKLY 01/13/25 04/07/25 History mcg (50,000 unit) capsule escitalopram oxalate 10 mg tablet 20 mg PO DAILY 01/13/25 04/07/25 History hydroxyzine HCl 25 mg tablet 25 mg PO TID 01/13/25 04/07/25 History ipratropium 0.5 mg-albuterol 3 mg 3 ml inhalation Q2H PRN shortness 01/13/25 04/07/25 History (2.5 mg base)/3 mL nebulization of breath soln lactulose 10 gram/15 mL oral 20 g PO DAILY 01/13/25 04/07/25 History solution (Enulose) gabapentin 100 mg capsule 100 mg PO BID 04/06/25 04/07/25 History insulin aspart U-100 100 unit/mL 1 sliding scale dose subcut 04/06/25 04/07/25 History (3 mL) subcutaneous pen (Novolog .before meals FlexPen U-100 Insulin aspart) midodrine 5 mg tablet 5 mg PO .COMPLEX 04/06/25 04/07/25 History montelukast 10 mg tablet 10 mg PO DAILY 04/06/25 04/07/25 History nystatin 100,000 unit/gram topical 1 applic topical BID 04/06/25 04/07/25 History powder ondansetron HCl 4 mg tablet 4 mg PO Q8H PRN nausea and vomiting 04/06/25 04/07/25 History oxcarbazepine 150 mg tablet 150 mg PO BID 04/06/25 04/07/25 History quetiapine 25 mg tablet 50 mg PO HS 04/06/25 04/07/25 History trazodone 50 mg tablet 50 mg PO HS 04/06/25 04/07/25 History cyanocobalamin (vitamin B-12) 1,000 mcg PO DAILY 04/07/25 04/07/25 History 1,000 mcg tablet (Vitamin B-12) [id number] 2.5 15 ml PO Q6H PRN cough 04/07/25 04/07/25 History mg-5 mg-50 mg/5 mL oral liquid (Robitussin Cough and Cold CF) Laboratory Tests 04/10/25 04/10/25 04/11/25 17:00 20:51 07:15 WBC 5.4 K/mm3 (4.5-10.0) RBC 2.82 L M/mm3 (4.2-5.4) Hgb 8.1 L g/dL (12.0-15.0) Hct 27.7 L % (37.0-47.0) MCV 98.2 fl (80-100) MCH 28.7 pg (26-34) MCHC 29.2 L g/dl (32-36) RDW 15.8 H % (11.5-14.5) Plt Count 149 L k/mm3 (150-375) MPV 9.1 fl (7.4-10.4) Immature Gran % (Auto) 1.1 H % (0-0.5) Neut % (Auto) 75.6 H % (45.5-73.1) Lymph % (Auto) 16.1 L % (18.3-44.2) [place] % (Auto) 7.2 % (2.6-8.5) Eos % (Auto) 0.0 % (0-4.4) Baso % (Auto) 0.0 L % (0.2-1.2) Lymph # (Auto) 0.87 L K/mm3 (0.9-3.2) [place] # (Auto) 0.4 K/mm3 (0.1-0.6) Eos # (Auto) 0.0 K/mm3 (0-0.3) Baso # (Auto) 0.0 K/mm3 (0.0-0.1) Abs Immat Gran (auto) 0.06 H K/mm3 (0.00-0.031) Absolute Neuts (auto) 4.1 K/mm3 (1.3-6.7) Absolute Nucleated RBC 0.000 K/mm3 (0.0-0.012) Band Neutrophils % Not Reportable Nucleated RBC % 0.0 % (0.0-0.2) Platelet Estimate Adequate (Adequate) Polychromasia 1+ Hypochromasia 2+ Anisocytosis 1+ Tear Drop Cells 1+ Schistocytes None seen Sodium 139 mmol/L (137-145) Potassium 4.9 mmol/L (3.4-5.0) Chloride 105 mmol/L (98-107) Carbon Dioxide 28 mmol/L (22-30) Anion Gap 6 mmol/L (4-12) BUN 37 H D mg/dL (7-17) Creatinine 4.64 H mg/dL (0.7-1.0) Estim Creat Clear Calc 17 ml/min Estimated GFR 9 L (59 - ) Glucose 128 H mg/dL (65-110) POC Capillary Glucose 124 H mg/dl 108 H mg/dl (65-105) (65-105) Calcium 9.4 mg/dL (8.4-10.2) Total Bilirubin 0.3 mg/dL (0.2-1.3) AST 23 U/L (14-36) ALT 14 U/L (6-35) Alkaline Phosphatase 81 U/L (38-126) Total Protein 6.4 g/dL (6.3-8.2) Albumin 3.5 g/dL (3.5-5.1) 04/11/25 04/11/25 04/11/25 07:32 12:22 14:23 WBC RBC Hgb Hct MCV MCH MCHC RDW Plt Count MPV Immature Gran % (Auto) Neut % (Auto) Lymph % (Auto) [place] % (Auto) Eos % (Auto) Baso % (Auto) Lymph # (Auto) [place] # (Auto) Eos # (Auto) Baso # (Auto) Abs Immat Gran (auto) Absolute Neuts (auto) Absolute Nucleated RBC Band Neutrophils % Nucleated RBC % Platelet Estimate Polychromasia Hypochromasia Anisocytosis Tear Drop Cells Schistocytes Sodium Potassium Chloride Carbon Dioxide Anion Gap BUN Creatinine Estim Creat Clear Calc Estimated GFR Glucose POC Capillary Glucose 128 H mg/dl 122 H mg/dl 118 H mg/dl (65-105) (65-105) (65-105) Calcium Total Bilirubin AST ALT Alkaline Phosphatase Total Protein Albumin Patient hx anesthesia problems: none Family hx anesthesia problems: none Results Review: All pre-operative results and documents have been reviewed as part of the pre- operative evaluation. [facility] Past Medical History Medical History (Updated 04/10/25 @ 12:40 by Rosalio Calix MD) Occult blood in stools Acute on chronic anemia Seizure disorder Immobility Rheumatoid arthritis PAF (paroxysmal atrial fibrillation) Fibromyalgia Gout Obesity hypoventilation syndrome [place]LDON (obstructive sleep apnea) Chronic respiratory failure with hypoxia Atrial fibrillation COPD (chronic obstructive pulmonary disease) Diastolic heart failure Bipolar 1 disorder Anxiety and depression Left renal mass suspected malignancy Nephrolithiasis End stage renal disease ESRD on dialysis CHF (congestive heart failure) HTN (hypertension) COPD (chronic obstructive pulmonary disease) Surgical History Surgical History History of cystoscopy S/P ureteral reimplantation History of hysterectomy S/P hemodialysis catheter insertion Family History Family History Father Lung cancer Grandparent Colon cancer Mother Congestive heart failure Social History Social History Smoking packs per day: 0.5 Smoking cigarettes per day: 10.0 Years smoked: 10 Smoking pack-years: 5.00 Smoking status: Former smoker Tobacco type: cigarettes Second hand tobacco smoke exposure: Yes Alcohol intake: never Substance use: never Substance use type: does not use Last use: 06/13/21 Do You Feel Safe in your Home?: Yes Lack of Transportation: No Lack of Food: Never True Current Housing: I Have Housing Concerned About Future Housing: No Difficulty Paying Gas/Electric Bills: No Difficulty Paying for Meds: No Currently Unemployed: No Education: High School Diploma/GED Difficulty w/ Childcare or Family Care: No Gender identity (if verbalized by the patient): Female Sexual Orientation (if Verbalized by the Patient): Straight or Heterosexual Spiritual care concerns: No Anes - Eval Final PreProcedure Day of Procedure 04/11/25 14:31 Patient weight: super morbidly obese Heart: regular rate and rhythm Lungs: clear to auscultation Airway: Mallampati scale class III Neurological: alert and oriented Last oral intake: >/= 8 hours ASA classification: IV Emergent: no Anesthetic plan: proceed Anesthesia type and monitoring: general GIVS and standard monitoring Results Review: All pre-operative results and documents have been reviewed as part of the pre- operative evaluation. Informed Consent: The patient's anesthetic plan and its attendant risks and benefits were discussed with the patient/family/POA. Questions were solicited and answers provided to the satisfaction of the patient/family/POA.
[2025-04-11] MEDS: BENZOCAINE (*SP) 60 ML SPRAY CAN (HURRICAINE) 1 SPRAY MUCOUS MEM (15:06)
[2025-04-11] MEDS: MEROPENEM 500 MG in SODIUM CHLORIDE 0.9% IV 100 ML 200 ML IVPB (16:09)
[2025-04-11] MEDS: GABAPENTIN 100 MG CAPSULE PO (16:09)
[2025-04-11] MEDS: DOCUSATE SODIUM 100 MG CAPSULE PO (16:10)
[2025-04-11] MEDS: ATORVASTATIN 40 MG TABLET PO (20:36)
[2025-04-11] MEDS: PANTOPRAZOLE 40 MG TABLET PO (20:37)
[2025-04-12] VITALS (13 sets, daily range): BP systolic 105–132; BP diastolic 40–81; PULSE 70–82; RESP 16–24; TEMP 36.4–37.4; O2SAT 98–100
[2025-04-12] MEDS: IPRATROPIUM 0.5 MG/ALBUTEROL SULFATE 2.5 MG AMPUL.NEB 3 ML INHALATION ×4 (02:08→19:48)
[2025-04-12] MEDS: HYDROcodone/acetaminophen (*CRX) 5-325 MG TABLET 1 TAB PO ×4 (02:12→23:12)
[2025-04-12 04:55] LABS: Hematocrit 27.7 % (37.0-47.0); Hemoglobin 8.0 g/dL (12.0-15.0); Immature Granulocyte Percent A 1.1 % (0-0.5); Lymphocytes Absolute Auto 0.71 K/mm3 (0.9-3.2); Mean Corpuscular HGB Conc 28.9 g/dl (32-36); Mean Corpuscular Hemoglobin 28.6 pg (26-34); Mean Corpuscular Volume 98.9 fl (80-100); Nucleated Red Blood Cells Absolute Auto 0.030 K/mm3 (0.0-0.012); Nucleated Red Blood Cells Perc 0.5 % (0.0-0.2); Platelet Count Result 143 k/mm3 (150-375); Red Blood Count 2.80 M/mm3 (4.2-5.4); White Blood Count 5.6 K/mm3 (4.5-10.0)
[2025-04-12 05:08] LABS: Alanine Aminotransferase 12 U/L (6-35); Albumin Level 3.4 g/dL (3.5-5.1); Alkaline Phosphatase 83 U/L (38-126); Anion Gap 7 mmol/L (4-12); Aspartate Amino Transferase 18 U/L (14-36); Bilirubin,Total 0.3 mg/dL (0.2-1.3); Blood Urea Nitrogen 25 mg/dL (7-17); Calcium 9.0 mg/dL (8.4-10.2); Carbon Dioxide 27 mmol/L (22-30); Chloride 100 mmol/L (98-107); Estimated CRCL calculation 22 ml/min; Estimated Glomerular Filt Rate 13; Glucose 142 mg/dL (65-110); Potassium 4.2 mmol/L (3.4-5.0); Sodium 134 mmol/L (137-145); Total Protein 6.2 g/dL (6.3-8.2)
[2025-04-12 05:19] LABS: Hypochromasia 1+; Ovalocytes 1+; Schistocytes None Seen; Tear Drop Cells 1+
[2025-04-12] MEDS: GABAPENTIN 100 MG CAPSULE PO ×2 (08:49→16:34)
[2025-04-12] MEDS: DOCUSATE SODIUM 100 MG CAPSULE PO ×2 (08:49→16:34)
[2025-04-12] MEDS: PANTOPRAZOLE 40 MG TABLET PO ×2 (08:49→20:06)
[2025-04-12] MEDS: ESCITALOPRAM OXALATE 10 MG TABLET 20 MG PO (08:49)
[2025-04-12] MEDS: FERROUS SULFATE 325 MG TABLET DR BY MOUTH (08:49)
--- NOTE | 2025-04-12 11:34 | P.PNIM_ITS ---
Progress Note: A&P Assessment and Plan (1) Occult blood in stools: Code(s): R19.5 - Other fecal abnormalities <Megan Keller PA-C - Last Filed: 04/12/25 14:27> Status: Acute <Megan Keller PA-C - Last Filed: 04/12/25 14:27> Assessment and Plan: * Occult stool positive and anemia * Monitor serum electrolytes, CBC, hemoglobin/hematocrit q.8 hours. If hemoglobin drops below 7 transfuse packed red blood cells * Monitor for bloody bowel movements,chest pain,SOB or dizziness/lightheadedness * Pantoprazole BID - change to PO * DVT Px: SCDs * GI consult * Plan for EGD this afternoon (04/11) * US liver: unremarkable * Echo obtained, LVEF 65-70% no valvular abnormalities <Megan Keller PA-C - Last Filed: 04/12/25 14:27> * Occult stool positive and anemia * Monitor serum electrolytes, CBC, hemoglobin/hematocrit q.8 hours. If hemoglobin drops below 7 transfuse packed red blood cells * Monitor for bloody bowel movements,chest pain,SOB or dizziness/lightheadedness * PO Pantoprazole BID * DVT Px: SCDs * GI consult * EGD: gastritis - ok to resume diet. * Discussed patient & familial colon cancer history with Dr. Pena. Recommends outpatient colonoscopy. * Signed off. * US liver: unremarkable * Echo obtained, LVEF 65-70% no valvular abnormalities <Kenneth Carbajal, Student - Last Filed: 04/12/25 14:14> (2) UTI (urinary tract infection): Code(s): N39.0 - Urinary tract infection, site not specified <Megan Keller PA-C - Last Filed: 04/12/25 14:27> Status: Acute <Megan Keller PA-C - Last Filed: 04/12/25 14:27> Assessment and Plan: * Patient states that she was feeling better originally on the cipro however overnight developed worsening dysuria and burning * UA concerning for infection * UC: gram negative bacilli * Prior ESBL on 01/12/25 * started on cipro 04/07, transitioned to meropenem on 04/10 * webber catheter discontinued, discussed with nephrology and in agreement with removal * Culture still pending at this time <Megan Keller PA-C - Last Filed: 04/12/25 14:27> * Mohan Denies dysuria and burning. * UA (04/06) concerning for infection * Prelim UC: gram negative bacilli * Prior ESBL on 01/12/25 * continue meropenem * webber catheter discontinued, discussed with nephrology and in agreement with removal * Final Culture still pending at this time <Kenneth Carbajal, Student - Last Filed: 04/12/25 14:14> (3) CHF (congestive heart failure): Qualifiers: Heart failure chronicity: unspecified Heart failure type: unspecified Qualified Code(s): I50.9 - Heart failure, unspecified <Megan Keller PA-C - Last Filed: 04/12/25 14:27> Code(s): I50.9 - Heart failure, unspecified <Megan Keller PA-C - Last Filed: 04/12/25 14:27> Status: Acute <Megan Keller PA-C - Last Filed: 04/12/25 14:27> Assessment and Plan: * Current medications: IV lasix 40 mg BID discontinued on 04/10 as patient does not produce much urine, discussed with nephrology Dr. Calix * BNP: 5050 * Chest XR: Cardiomegaly with pulmonary edema. * Remains on baseline 3L NC * Echo 65-70% with no valvular abnormalities * Nephrology following, continue dialysis for fluid overload * Monitor vital signs, I&Os, BUN/creatinine, daily weights, neuro status and patient is a fall risk * Monitor serum electrolytes, Keep serum Potassium>4 and serum Magnesium>2 and CBC * Does not appear to be fluid overloaded on exam <Megan Keller PA-C - Last Filed: 04/12/25 14:27> (4) Anemia: Qualifiers: Anemia type: due to chronic kidney disease Chronic kidney disease stage: on chronic dialysis Qualified Code(s): N18.6 - End stage renal disease; D63.1 - Anemia in chronic kidney disease; Z99.2 - Dependence on renal dialysis <Megan Keller PA-C - Last Filed: 04/12/25 14:27> Code(s): D64.9 - Anemia, unspecified <Megan Keller PA-C - Last Filed: 04/12/25 14:27> Status: Acute <Megan Keller PA-C - Last Filed: 04/12/25 14:27> Assessment and Plan: * Hgb 9.2 on admission, and currently staying stable in the 7 range * Iron WNL * Isat 46, EPO per Nephrology * Concern for possible GI bleed * See plan above * EGD today <Megan Keller PA-C - Last Filed: 04/12/25 14:27> * Hgb 9.2 on admission, and currently staying stable in the 7-8 range * Iron WNL * Isat 46, EPO per Nephrology * EGD negative for source of bleeding. * GI recommended outpatient colonoscopy. <Michelle Hernandez - Last Filed: 04/12/25 14:14> (5) Hyperkalemia: Code(s): E87.5 - Hyperkalemia <Megan Keller PA-C - Last Filed: 04/12/25 14:27> Status: Acute <Megan Keller PA-C - Last Filed: 04/12/25 14:27> Assessment and Plan: * Hyperkalemia on admission, received dialysis and has since resolved. <Megan Keller PA-C - Last Filed: 04/12/25 14:27> (6) End stage renal disease: Code(s): N18.6 - End stage renal disease <Megan Keller PA-C - Last Filed: 04/12/25 14:27> Status: Chronic <Megan Keller PA-C - Last Filed: 04/12/25 14:27> Assessment and Plan: * HD dialysis on Wednesday * Nephrology following, on dialysis * Dialysis today <Megan Keller PA-C - Last Filed: 04/12/25 14:27> * HD dialysis on Wednesday * Nephrology following, on dialysis * Endorses full body itching despite hydroxyzine - will start Benadryl prn <Michelle Hernandez - Last Filed: 04/12/25 14:14> (7) HTN (hypertension): Qualifiers: Hypertension type: unspecified Qualified Code(s): I10 - Essential (primary) hypertension <Megan Keller PA-C - Last Filed: 04/12/25 14:27> Code(s): I10 - Essential (primary) hypertension <Megan Keller PA-C - Last Filed: 04/12/25 14:27> Status: Chronic <Megan Keller PA-C - Last Filed: 04/12/25 14:27> Assessment and Plan: * Not on antihypertensives * Requiring midodrine for hypotension during dialysis which was increased by nephrology to 10 mg prior to treatment and 10 mg 2 hours into treatment as needed * Stable <Megan Keller PA-C - Last Filed: 04/12/25 14:27> (8) COPD (chronic obstructive pulmonary disease): Qualifiers: COPD type: unspecified COPD Qualified Code(s): J44.9 - Chronic obstructive pulmonary disease, unspecified <Megan Keller PA-C - Last Filed: 04/12/25 14:27> Code(s): J44.9 - Chronic obstructive pulmonary disease, unspecified <Megan Keller PA-C - Last Filed: 04/12/25 14:27> Status: Acute <Megan Keller PA-C - Last Filed: 04/12/25 14:27> Assessment and Plan: * DuoNebs <Megan Keller PA-C - Last Filed: 04/12/25 14:27> (9) Seizures: Code(s): R56.9 - Unspecified convulsions <Megan Keller PA-C - Last Filed: 04/12/25 14:27> Status: Acute <Megan Keller PA-C - Last Filed: 04/12/25 14:27> Assessment and Plan: * Continue Keppra 500 mg BID <Megan Keller PA-C - Last Filed: 04/12/25 14:27> (10) Bipolar 1 disorder: Code(s): F31.9 - Bipolar disorder, unspecified <Megan Keller PA-C - Last Filed: 04/12/25 14:27> Status: Chronic <Megan Keller PA-C - Last Filed: 04/12/25 14:27> Assessment and Plan: * Continue Seroquel <Megan Keller PA-C - Last Filed: 04/12/25 14:27> (11) Anxiety: Code(s): F41.9 - Anxiety disorder, unspecified <Megan Keller PA-C - Last Filed: 04/12/25 14:27> Status: Acute <Megan Keller PA-C - Last Filed: 04/12/25 14:27> Assessment and Plan: * continue escitalopram <Michelle Hernandez - Last Filed: 04/12/25 14:14> Assessment and Plan: Code status: Full Code Diet: Diabetic & Renal Dialysis Diet GI Prophylaxis: PO Pantoprazole DVT Prophylaxis: SCDs <Michelle Hernandez - Last Filed: 04/12/25 14:14> Time Spent With Patient Time with patient: 25 - 35 minutes <Megan Keller PA-C - Last Filed: 04/12/25 14:27> Subjective Date/time seen: 04/12/25 11:34 <Megan Keller PA-C - Last Filed: 04/12/25 14:27> Interval history: 65 year old female with past medical history of afib, diastolic heart failure, COPD, ESRD on dialysis, CHF, HTN, bipolar, SHELDON, and seizure disorder presents to the hospital for shortness of breath. 04/12/2025 Patient comfortably reclined in bed at time of examination. Endorses full body itching that has not improved with current hydroxyzine. Denies chest pain, shortness of breath, N/V, abdominal pain, dizziness, abnormalities with urination (currently catheter in place) and bowel movements. Was feeling more anxious, but has improved since escitalopram was restarted. No longer endorsing burning sensation or dysuria since being transitioned to meropenem. In regards to her bloody stools & anemia, EGD did not find a source for loss of blood. Patient does states she a family (grandmother) history colon cancer. Discussed patient with GI and plan for outpatient colonoscopy. <Megan Keller PA-C - Last Filed: 04/12/25 14:27> 65 year old female with past medical history of afib, diastolic heart failure, COPD, ESRD on dialysis, CHF, HTN, bipolar, SHELDON, and seizure disorder presents to the hospital for shortness of breath. 04/12/2025 Patient comfortably reclined in bed at time of examination. Endorses full body itching that has not improved with current hydroxyzine. Denies chest pain, shortness of breath, N/V, abdominal pain, dizziness, abnormalities with urination (currently catheter in place) and bowel movements. Was feeling more anxious, but has improved since escitalopram was restarted. In regards to her bloody stools & anemia, EGD did not find a source for loss of blood. Patient does states she a family (grandmother) history colon cancer. <Kenneth Carbajal, Student - Last Filed: 04/12/25 14:14> Review of Systems Review of Systems: All systems reviewed & are unremarkable except as noted in HPI and below <Megan Keller PA-C - Last Filed: 04/12/25 14:27> Exam Narrative: AF HR General: female in no acute respiratory distress who is nontoxic appearing, lying semi recumbent in bed. HEENT: Normocephalic. Atraumatic. Extraocular movement intact. Sclera clear and anicteric. No facial asymmetry. Chest: Lungs are clear to auscultation bilaterally. No wheezes or crackles. CV: Heart was regular rate and rhythm. Abd: Abdomen was soft. Nontender. Nondistended. Positive bowel sounds. Ext: No clubbing, cyanosis, or edema. DP pulses bilaterally. Neuro: Patient is alert and oriented x3. Speech is clear. <Megan Keller PA-C - Last Filed: 04/12/25 14:27> General: female in no acute respiratory distress who is nontoxic appearing, lying semi recumbent in bed. HEENT: Normocephalic. Atraumatic. Extraocular movement intact. Sclera clear and anicteric. No facial asymmetry. Pulm: Lungs are clear to auscultation bilaterally. No wheezes or crackles. CV: Heart was regular rate and rhythm. Abd: Abdomen was soft. Nontender. Nondistended. Normal bowel sounds. Ext: No clubbing, cyanosis, or edema. DP pulses bilaterally. Neuro: Patient is alert and oriented x3. Speech is clear. <Kenneth Carbajal, Student - Last Filed: 04/12/25 14:14> Objective Data Vital Signs Vital Signs: Vital Signs - 24 hr 04/11/25 11:45 04/11/25 12:02 04/11/25 12:10 Temperature 98.1 F Pulse Rate 68 68 68 Respiratory Rate 14 Blood Pressure 127/60 132/54 L 137/57 L Pulse Oximetry 100 Oxygen Delivery Oxygen Flow Rate 04/11/25 13:54 04/11/25 13:56 04/11/25 14:05 Temperature Pulse Rate 70 76 72 Respiratory Rate 18 18 18 Blood Pressure 115/31 L Pulse Oximetry 100 Oxygen Delivery Oxygen Flow Rate 04/11/25 14:20 04/11/25 15:17 04/11/25 15:27 Temperature 97 F L Pulse Rate 70 80 82 Respiratory Rate 18 20 20 Blood Pressure 115/40 L 114/46 L 110/43 L Pulse Oximetry 100 100 100 Oxygen Delivery Nasal Cannula Nasal Cannula Nasal Cannula Oxygen Flow Rate 3 6 3 04/11/25 15:37 04/11/25 15:53 04/11/25 20:40 Temperature 98.2 F Pulse Rate 82 78 Respiratory Rate 20 18 Blood Pressure 107/43 L 126/44 L Pulse Oximetry 100 100 100 Oxygen Delivery Nasal Cannula Nasal Cannula Oxygen Flow Rate 3 3 04/11/25 20:51 04/11/25 21:00 04/11/25 21:01 Temperature 99.2 F Pulse Rate 76 74 Respiratory Rate 18 18 Blood Pressure 109/38 L Pulse Oximetry 99 98 Oxygen Delivery Nasal Cannula Oxygen Flow Rate 3 04/11/25 21:06 04/11/25 23:50 04/12/25 02:10 Temperature Pulse Rate 75 71 70 Respiratory Rate 18 24 H 24 H Blood Pressure Pulse Oximetry 98 Oxygen Delivery BiPAP Oxygen Flow Rate 04/12/25 04:00 04/12/25 05:47 04/12/25 07:10 Temperature 99.4 F Pulse Rate 70 70 Respiratory Rate 24 H 18 Blood Pressure 105/44 L Pulse Oximetry 98 99 99 Oxygen Delivery BiPAP Nasal Cannula Oxygen Flow Rate 3 04/12/25 07:10 04/12/25 07:18 04/12/25 08:50 Temperature Pulse Rate 73 82 Respiratory Rate 24 H 24 H Blood Pressure Pulse Oximetry 100 Oxygen Delivery Nasal Cannula Oxygen Flow Rate 3 <Megan Keller PA-C - Last Filed: 04/12/25 14:27> Intake/Output Intake/Output: Intake & Output 04/09/25 04/10/25 04/11/25 04/12/25 23:59 23:59 23:59 23:59 Intake Total 1670 1650 1090 1090 Output Total 4250 400 4800 100 Balance -2580 1250 -3710 990 <Megan Keller PA-C - Last Filed: 04/12/25 14:27> Meds/Results Medications: Active Medications Generic Name Dose Route Start Last Admin Trade Name Freq PRN Reason Stop Dose Admin Acetaminophen 650 mg 04/06/25 17:25 Acetaminophen 325 Mg Tablet PO Q4H PRN Mild Pain (1-3) or Fever Hydrocodone Bitart/Acetaminophen 1 tab 04/06/25 17:25 04/12/25 08:50 Hydrocodone/Acetaminophen (*Crx) 5-325 Mg Tablet PO 1 tab Q4H PRN Administration Moderate Pain (4-6) Albuterol/Ipratropium 3 ml 04/06/25 14:00 04/12/25 07:10 Ipratropium 0.5 Mg/Albuterol Sulfate 2.5 Mg Ampul.Neb 3 Ml INHALATION 3 ml Q6HRT MARLEEN Administration Atorvastatin Calcium 40 mg 04/06/25 21:00 04/11/25 20:36 Atorvastatin 40 Mg Tablet PO 40 mg QHS MARLEEN Administration Dextrose 12.5 gm 04/07/25 10:55 Dextrose 50% 25 Gm/50 Ml Syringe IV PUSH PRN PRN Hypoglycemia Protocol Diphenhydramine HCl 25 mg 04/12/25 11:31 Diphenhydramine Hcl Cap 25 Mg Capsule PO Q6H PRN Itching Docusate Sodium 100 mg 04/07/25 09:00 04/12/25 08:49 Docusate Sodium 100 Mg Capsule PO 100 mg BID MARLEEN Administration Escitalopram Oxalate 20 mg 04/12/25 09:00 04/12/25 08:49 Escitalopram Oxalate 10 Mg Tablet PO 20 mg DAILY MARLEEN Administration Ferrous Sulfate 325 mg 04/07/25 09:00 04/12/25 08:49 Ferrous Sulfate [address] BY MOUTH 325 mg DAILY MARLEEN Administration Gabapentin 100 mg 04/07/25 09:00 04/12/25 08:49 Gabapentin 100 Mg Capsule PO 100 mg BID MARLEEN Administration Glucose 15 gm 04/07/25 10:55 Glucose Oral Gel 15 Gm Of Glucse In 37.5 Gm Tube PO PRN PRN Hypoglycemia Protocol Hydroxyzine HCl 25 mg 04/07/25 04:05 04/12/25 08:49 Hydroxyzine Hcl 25 Mg Tablet PO 25 mg TID MARLEEN Administration Dextrose 1,000 mls @ 100 mls/hr 04/07/25 10:55 Dextrose 5% 1,000 Ml IVPB PRN PRN Hypoglycemia Protocol Albumin Human 50 mls @ 999 mls/hr 04/08/25 09:28 Albutein IVPB 05/08/25 09:27 Q10M PRN HYPOTENSION Meropenem 500 mg/ Sodium 100 mls @ 200 mls/hr 04/10/25 15:00 04/11/25 16:39 Chloride IVPB Infused Q24H MARLEEN Infusion Insulin Aspart 2 - 5 units 04/07/25 12:00 04/12/25 08:49 Insulin Aspart (*Bkc) 100 Units/Ml SUB-Q Not Given TIDWM [facility] Protocol Insulin Aspart 1 - 2 units 04/07/25 21:00 04/11/25 20:35 Insulin Aspart (*Bkc) 100 Units/Ml SUB-Q Not Given HS [facility] Protocol Levetiracetam 500 mg 04/07/25 03:25 04/12/25 08:49 Levetiracetam 500 Mg Tablet PO 500 mg Q12HR MARLEEN Administration Midodrine 10 mg 04/07/25 09:51 04/11/25 07:50 Midodrine Hcl 10 Mg Tablet PO 10 mg PRN PRN Administration half hour before dialysis and then 2 hours into dialysis Ondansetron HCl 4 mg 04/06/25 17:25 Ondansetron Inj 4 Mg/2 Ml Vial IV PUSH Q6H PRN Nausea And Vomiting Oxcarbazepine 150 mg 04/07/25 03:25 04/12/25 08:49 Oxcarbazepine 150 Mg Tablet PO 150 mg Q12HR MARLEEN Administration Pantoprazole Sodium 40 mg 04/11/25 21:00 04/12/25 08:49 Pantoprazole 40 Mg Tablet PO 40 mg Q12HR MARLEEN Administration Perflutren Lipid Microsphere 0 ml 04/10/25 09:59 Perflutren Lipid Microspheres 1.5 Ml Vial Diluted To 10 Ml Total Volume IV PUSH 04/13/25 09:59 ONCE PRN adequate visualization Protocol Quetiapine Fumarate 50 mg 04/07/25 21:00 04/11/25 20:36 Quetiapine Fumarate 25 Mg Tablet PO 50 mg HS MARLEEN Administration Trazodone HCl 50 mg 04/06/25 21:00 04/11/25 20:37 Trazodone Hcl 50 Mg Tablet PO 50 mg HS MARLEEN Administration <Megan Keller PA-C - Last Filed: 04/12/25 14:27> Radiology Results: ITS Impressions Chest X-Ray 04/06/25 12:18 Impression: 1: Cardiomegaly with pulmonary edema. Venous Doppler Study 04/07/25 18:31 IMPRESSION: Patent bilateral lower extremity veins. No evidence of deep venous thrombosis. Abdomen Ultrasound 04/08/25 23:15 IMPRESSION: Limited evaluation. The pancreas, spleen, and left kidney are poorly visualized. Limited parenchymal evaluation of the liver, with no surface nodularity to suggest cirrhosis. Normal size gallbladder, likely containing sludge and stones. <Megan Keller PA-C - Last Filed: 04/12/25 14:27> Labs Labs: Laboratory Results - last 24 hr 04/11/25 04/11/25 04/11/25 12:22 14:23 17:14 WBC RBC Hgb Hct MCV MCH MCHC RDW Plt Count MPV Immature Gran % (Auto) Neut % (Auto) Lymph % (Auto) Lane % (Auto) Eos % (Auto) Baso % (Auto) Lymph # (Auto) Lane # (Auto) Eos # (Auto) Baso # (Auto) Abs Immat Gran (auto) Absolute Neuts (auto) Absolute Nucleated RBC Band Neutrophils % Nucleated RBC % Platelet Estimate Hypochromasia Tear Drop Cells Ovalocytes Schistocytes Sodium Potassium Chloride Carbon Dioxide Anion Gap BUN Creatinine Estim Creat Clear Calc Estimated GFR Glucose POC Capillary Glucose 122 H 118 H 112 H Calcium Phosphorus Total Bilirubin AST ALT Alkaline Phosphatase Total Protein Albumin 04/11/25 04/12/25 04/12/25 19:50 04:25 07:53 WBC 5.6 RBC 2.80 L Hgb 8.0 L Hct 27.7 L MCV 98.9 MCH 28.6 MCHC 28.9 L RDW 15.9 H Plt Count 143 L MPV 9.2 Immature Gran % (Auto) 1.1 H Neut % (Auto) 79.0 H Lymph % (Auto) 12.[address] % (Auto) 7.1 Eos % (Auto) 0.0 Baso % (Auto) 0.2 Lymph # (Auto) 0.[address] # (Auto) 0.4 Eos # (Auto) 0.0 Baso # (Auto) 0.0 Abs Immat Gran (auto) 0.06 H Absolute Neuts (auto) 4.4 Absolute Nucleated RBC 0.030 H Band Neutrophils % Not Reportable Nucleated RBC % 0.5 H Platelet Estimate Adequate Hypochromasia 1+ Tear Drop Cells 1+ Ovalocytes 1+ Schistocytes None seen Sodium 134 L Potassium 4.2 Chloride 100 Carbon Dioxide 27 Anion Gap 7 BUN 25 H D Creatinine 3.62 H Estim Creat Clear Calc 22 Estimated GFR 13 L Glucose 142 H POC Capillary Glucose 123 H 130 H Calcium 9.0 Phosphorus 4.0 Total Bilirubin 0.3 AST 18 ALT 12 Alkaline Phosphatase 83 Total Protein 6.2 L Albumin 3.4 L <Megan Keller PA-C - Last Filed: 04/12/25 14:27> Quality VTE Prophylaxis VTE prophylaxis: mechanical ordered <Megan Keller PA-C - Last Filed: 04/12/25 14:27>
--- NOTE | 2025-04-12 13:33 | P.PNNP_ITS ---
Progress Note: A&P Assessment and Plan (1) End stage renal disease: Code(s): N18.6 - End stage renal disease Status: Chronic Assessment and Plan: * HD tomorrow * continue outpatient schedule of Mondays, Wednesdays, and Fridays * follow electrolytes, volume status, and clearance (2) Volume overload: Code(s): E87.70 - Fluid overload, unspecified Status: Acute Assessment and Plan: * admission CXR with cardiomegaly and pulmonary edema * presumably precipitated by missed dialysis treatment prior to admission * clinically better s/p aggressive ultrafiltration/fluid removal with dialysis * continue current therapy/interventions (3) Anemia: Qualifiers: Anemia type: due to chronic kidney disease Chronic kidney disease stage: on chronic dialysis Qualified Code(s): N18.6 - End stage renal disease; D63.1 - Anemia in chronic kidney disease; Z99.2 - Dependence on renal dialysis Code(s): D64.9 - Anemia, unspecified Status: Acute Assessment and Plan: * partly due to ESRD * however, guaiac positive stool noted * GI recommendations noted * s/p EGD on 04/11: only mild gastritis noted * H/H relatively stable * no evidence of iron deficiency by anemia studies * high dose Epogen with dialysis * follow trend of H/H (4) UTI (urinary tract infection): Code(s): N39.0 - Urinary tract infection, site not specified Status: Acute Assessment and Plan: * admission UA suggestive * urine culture with E.coli * on antibiotics (5) HTN (hypertension): Qualifiers: Hypertension type: unspecified Qualified Code(s): I10 - Essential (primary) hypertension Code(s): I10 - Essential (primary) hypertension Status: Chronic Assessment and Plan: * reasonable control * off antihypertensives at this time * on midodrine for dialysis purposes (6) Chronic respiratory failure with hypoxia: Code(s): J96.11 - Chronic respiratory failure with hypoxia Status: Chronic Assessment and Plan: * multifactorial: * COPD * SHELDON * OHS * CHF * pulmonary edema * on chronic supplemental oxygen * on BiPAP at the [facility] * continue supportive therapy (7) Bipolar 1 disorder: Code(s): F31.9 - Bipolar disorder, unspecified Status: Chronic Assessment and Plan: * continue Seroquel (8) Left renal mass: Code(s): N28.89 - Other specified disorders of kidney and ureter Status: Chronic Assessment and Plan: * follows with Urology as an outpatient (concern is for malignancy) * per review of outside records, deemed to be a poor surgical candidate Not opposed to discharge from renal perspective if otherwise medically stable. Will continue to follow. L Subjective Date/time seen: 04/12/25 13:33 Interval history: Follow-up for end stage renal disease on hemodialysis. Tolerated dialysis treatment yesterday without any issue or problems; s/p EGD with findings noted; major complaint is that of itching despite use of hydroxyzine; H/H remains relative stable; no other acute issues/events overnight or earlier this morning. Exam 2 Narrative: General: large but WD/WN female in NAD Heart: normal S1 and S2; no rub Lungs: clear anteriorly; coarse/diminished at bases Abdomen: sobese but soft, nontender, nondistended, + bowel sounds Extremities: no cyanosis or clubbing; no edema Skin: no nodules Objective Data Vital Signs Vital Signs: Vital Signs Temp Pulse Resp BP Pulse Ox O2 Del Method O2 Flow Rate 04/12/25 13:11 76 20 04/12/25 13:04 80 20 04/12/25 08:50 100 Nasal Cannula 3 04/12/25 07:18 82 24 H 04/12/25 07:10 73 24 H 04/12/25 07:10 99 Nasal Cannula 3 04/12/25 05:47 99.4 F 70 18 105/44 L 99 04/12/25 04:00 70 24 H 98 BiPAP 04/12/25 02:10 70 24 H 04/11/25 23:50 71 24 H 98 BiPAP 04/11/25 21:06 75 18 04/11/25 21:01 74 18 04/11/25 21:00 98 Nasal Cannula 3 04/11/25 20:51 99.2 F 76 18 109/38 L 99 04/11/25 20:40 100 Nasal Cannula 3 Intake/Output Intake/Output: Intake & Output 04/09/25 04/10/25 04/11/25 04/12/25 23:59 23:59 23:59 23:59 Intake Total 1670 1650 1090 1330 Output Total 4250 400 4800 100 Balance -2580 1250 -3710 1230 Meds/Results Medications: Active Medications Generic Name Dose Route Start Last Admin Trade Name Freq PRN Reason Stop Dose Admin Acetaminophen 650 mg 04/06/25 17:25 Acetaminophen 325 Mg Tablet PO Q4H PRN Mild Pain (1-3) or Fever Hydrocodone Bitart/Acetaminophen 1 tab 04/06/25 17:25 04/12/25 12:51 Hydrocodone/Acetaminophen (*Crx) 5-325 Mg Tablet PO 1 tab Q4H PRN Administration Moderate Pain (4-6) Albuterol/Ipratropium 3 ml 04/06/25 14:00 04/12/25 13:04 Ipratropium 0.5 Mg/Albuterol Sulfate 2.5 Mg Ampul.Neb 3 Ml INHALATION 3 ml Q6HRT MARLEEN Administration Atorvastatin Calcium 40 mg 04/06/25 21:00 04/11/25 20:36 Atorvastatin 40 Mg Tablet PO 40 mg QHS MARLEEN Administration Dextrose 12.5 gm 04/07/25 10:55 Dextrose 50% 25 Gm/50 Ml Syringe IV PUSH PRN PRN Hypoglycemia Protocol Diphenhydramine HCl 25 mg 04/12/25 11:31 Diphenhydramine Hcl Cap 25 Mg Capsule PO Q6H PRN Itching Docusate Sodium 100 mg 04/07/25 09:00 04/12/25 16:34 Docusate Sodium 100 Mg Capsule PO 100 mg BID MARLEEN Administration Escitalopram Oxalate 20 mg 04/12/25 09:00 04/12/25 08:49 Escitalopram Oxalate 10 Mg Tablet PO 20 mg DAILY MARLEEN Administration Ferrous Sulfate 325 mg 04/07/25 09:00 04/12/25 08:49 Ferrous Sulfate [address] BY MOUTH 325 mg DAILY MARLEEN Administration Gabapentin 100 mg 04/07/25 09:00 04/12/25 16:34 Gabapentin 100 Mg Capsule PO 100 mg BID MARLEEN Administration Glucose 15 gm 04/07/25 10:55 Glucose Oral Gel 15 Gm Of Glucse In 37.5 Gm Tube PO PRN PRN Hypoglycemia Protocol Hydroxyzine HCl 25 mg 04/07/25 04:05 04/12/25 16:34 Hydroxyzine Hcl 25 Mg Tablet PO 25 mg TID MARLEEN Administration Dextrose 1,000 mls @ 100 mls/hr 04/07/25 10:55 Dextrose 5% 1,000 Ml IVPB PRN PRN Hypoglycemia Protocol Albumin Human 50 mls @ 999 mls/hr 04/08/25 09:28 Albutein IVPB 05/08/25 09:27 Q10M PRN HYPOTENSION Meropenem 500 mg/ Sodium 100 mls @ 200 mls/hr 04/10/25 15:00 04/12/25 16:34 Chloride IVPB 200 mls/hr Q24H MARLEEN Administration Insulin Aspart 2 - 5 units 04/07/25 12:00 04/12/25 16:43 Insulin Aspart (*Bkc) 100 Units/Ml SUB-Q Not Given TIDWM MARLEEN Protocol Insulin Aspart 1 - 2 units 04/07/25 21:00 04/11/25 20:35 Insulin Aspart (*Bkc) 100 Units/Ml SUB-Q Not Given HS MARLEEN Protocol Levetiracetam 500 mg 04/07/25 03:25 04/12/25 08:49 Levetiracetam 500 Mg Tablet PO 500 mg Q12HR MARLEEN Administration Midodrine 10 mg 04/07/25 09:51 04/11/25 07:50 Midodrine Hcl 10 Mg Tablet PO 10 mg PRN PRN Administration half hour before dialysis and then 2 hours into dialysis Ondansetron HCl 4 mg 04/06/25 17:25 Ondansetron Inj 4 Mg/2 Ml Vial IV PUSH Q6H PRN Nausea And Vomiting Oxcarbazepine 150 mg 04/07/25 03:25 04/12/25 08:49 Oxcarbazepine 150 Mg Tablet PO 150 mg Q12HR MARLEEN Administration Pantoprazole Sodium 40 mg 04/11/25 21:00 04/12/25 08:49 Pantoprazole 40 Mg Tablet PO 40 mg Q12HR MARLEEN Administration Perflutren Lipid Microsphere 0 ml 04/10/25 09:59 Perflutren Lipid Microspheres 1.5 Ml Vial Diluted To 10 Ml Total Volume IV PUSH 04/13/25 09:59 ONCE PRN adequate visualization Protocol Quetiapine Fumarate 50 mg 04/07/25 21:00 04/11/25 20:36 Quetiapine Fumarate 25 Mg Tablet PO 50 mg HS MARLEEN Administration Trazodone HCl 50 mg 04/06/25 21:00 04/11/25 20:37 Trazodone Hcl 50 Mg Tablet PO 50 mg HS MARLEEN Administration Radiology Results: ITS Impressions Chest X-Ray 04/06/25 12:18 Impression: 1: Cardiomegaly with pulmonary edema. Venous Doppler Study 04/07/25 18:31 IMPRESSION: Patent bilateral lower extremity veins. No evidence of deep venous thrombosis. Abdomen Ultrasound 04/08/25 23:15 IMPRESSION: Limited evaluation. The pancreas, spleen, and left kidney are poorly visualized. Limited parenchymal evaluation of the liver, with no surface nodularity to suggest cirrhosis. Normal size gallbladder, likely containing sludge and stones. Labs Labs: Laboratory Tests 04/12/25 04:25 04/12/25 04:25 Calcium 9.0 Phosphorus 4.0 Total Bilirubin 0.3 AST 18 ALT 12 Alkaline Phosphatase 83 Total Protein 6.2 L Albumin 3.4 L Microbiology 04/07/25 09:40 Urine [place] Urine Culture - Final Escherichia coli 04/07/25 14:21 Blood Blood Culture - Preliminary 04/07/25 14:19 Blood Blood Culture - Preliminary
--- NOTE | 2025-04-12 14:06 | P.PNAN_ITS ---
Anes - Prog Note Post-Op Date/Time: 04/12/25 14:06 Cardiovascular status: normal Respiratory status: normal Airway patency: baseline Mental status: baseline Post-Op hydration status: normal Vital Signs: Last Vital Signs Temp 99.4 F 04/12/25 05:47 Pulse 76 04/12/25 13:11 Resp 20 04/12/25 13:11 BP 105/44 L 04/12/25 05:47 Pulse Ox 100 04/12/25 08:50 O2 Del Method Nasal Cannula 04/12/25 08:50 O2 Flow Rate 3 04/12/25 08:50 FiO2 32 04/10/25 07:30 Pain Score (VAS): 0/10 I/O: Intake & Output 04/11/25 04/12/25 04/12/25 23:59 07:59 15:59 Intake Total 606 518 2009 Output Total 150 100 Balance 833 921 7881 Laboratory Tests 04/12/25 04:25 04/12/25 04:25 04/11/25 04/11/25 04/11/25 14:23 17:14 19:50 WBC RBC Hgb Hct MCV MCH MCHC RDW Plt Count MPV Immature Gran % (Auto) Neut % (Auto) Lymph % (Auto) [place] % (Auto) Eos % (Auto) Baso % (Auto) Lymph # (Auto) [place] # (Auto) Eos # (Auto) Baso # (Auto) Abs Immat Gran (auto) Absolute Neuts (auto) Absolute Nucleated RBC Band Neutrophils % Nucleated RBC % Platelet Estimate Hypochromasia Tear Drop Cells Ovalocytes Schistocytes Sodium Potassium Chloride Carbon Dioxide Anion Gap BUN Creatinine Estim Creat Clear Calc Estimated GFR Glucose POC Capillary Glucose 118 H 112 H 123 H Calcium Phosphorus Total Bilirubin AST ALT Alkaline Phosphatase Total Protein Albumin 04/12/25 04/12/25 04/12/25 04:25 07:53 12:00 WBC 5.6 RBC 2.80 L Hgb 8.0 L Hct 27.7 L MCV 98.9 MCH 28.6 MCHC 28.9 L RDW 15.9 H Plt Count 143 L MPV 9.2 Immature Gran % (Auto) 1.1 H Neut % (Auto) 79.0 H Lymph % (Auto) 12.6 L [place] % (Auto) 7.1 Eos % (Auto) 0.0 Baso % (Auto) 0.2 Lymph # (Auto) 0.71 L [place] # (Auto) 0.4 Eos # (Auto) 0.0 Baso # (Auto) 0.0 Abs Immat Gran (auto) 0.06 H Absolute Neuts (auto) 4.4 Absolute Nucleated RBC 0.030 H Band Neutrophils % Not Reportable Nucleated RBC % 0.5 H Platelet Estimate Adequate Hypochromasia 1+ Tear Drop Cells 1+ Ovalocytes 1+ Schistocytes None seen Sodium 134 L Potassium 4.2 Chloride 100 Carbon Dioxide 27 Anion Gap 7 BUN 25 H D Creatinine 3.62 H Estim Creat Clear Calc 22 Estimated GFR 13 L Glucose 142 H POC Capillary Glucose 130 H 129 H Calcium 9.0 Phosphorus 4.0 Total Bilirubin 0.3 AST 18 ALT 12 Alkaline Phosphatase 83 Total Protein 6.2 L Albumin 3.4 L Microbiology 04/07/25 09:40 Urine [place] Urine Culture - Preliminary Gram negative bacilli isolated 04/07/25 14:21 Blood Blood Culture - Preliminary 04/07/25 14:19 Blood Blood Culture - Preliminary Post-procedural complaints: none Patient Feedback: Patient satisfied with anesthetic care.
[2025-04-12] MEDS: MEROPENEM 500 MG in SODIUM CHLORIDE 0.9% IV 100 ML 200 ML IVPB (16:34)
[2025-04-12] MEDS: diphenhydrAMINE HCl CAP 25 MG CAPSULE PO ×2 (17:37→23:13)
[2025-04-12] MEDS: ATORVASTATIN 40 MG TABLET PO (20:05)
[2025-04-13] VITALS (33 sets, daily range): BP systolic 104–144; BP diastolic 38–63; PULSE 60–80; RESP 18–26; TEMP 36.1–37; O2SAT 95–100
[2025-04-13] MEDS: IPRATROPIUM 0.5 MG/ALBUTEROL SULFATE 2.5 MG AMPUL.NEB 3 ML INHALATION ×4 (01:18→20:07)
[2025-04-13 05:35] LABS: Magnesium 1.8 mg/dL (1.6-2.3)
[2025-04-13] MEDS: HYDROcodone/acetaminophen (*CRX) 5-325 MG TABLET 1 TAB PO ×3 (06:22→23:09)
[2025-04-13] MEDS: diphenhydrAMINE HCl CAP 25 MG CAPSULE PO (06:34)
--- NOTE | 2025-04-13 06:55 | P.PNIM_ITS ---
Progress Note: A&P Assessment and Plan (1) Occult blood in stools: Code(s): R19.5 - Other fecal abnormalities Status: Acute Assessment and Plan: * Occult stool positive and anemia * Monitor serum electrolytes, CBC, hemoglobin/hematocrit q.8 hours. If hemoglobin drops below 7 transfuse packed red blood cells * Monitor for bloody bowel movements,chest pain,SOB or dizziness/lightheadedness * PO Pantoprazole BID * DVT Px: SCDs * GI consult * EGD: gastritis - ok to resume diet. * Discussed patient & familial colon cancer history with Dr. Pena. Recommends outpatient colonoscopy. * Signed off. * US liver: unremarkable * Echo obtained, LVEF 65-70% no valvular abnormalities (2) UTI (urinary tract infection): Code(s): N39.0 - Urinary tract infection, site not specified Status: Acute Assessment and Plan: * Currenlty Denies dysuria and burning. * UA (04/06) concerning for infection * Prelim UC: gram negative bacilli * Prior ESBL on 01/12/25 * continue meropenem * webber catheter discontinued, discussed with nephrology and in agreement with removal (3) CHF (congestive heart failure): Qualifiers: Heart failure chronicity: unspecified Heart failure type: unspecified Qualified Code(s): I50.9 - Heart failure, unspecified Code(s): I50.9 - Heart failure, unspecified Status: Acute Assessment and Plan: * Current medications: IV lasix 40 mg BID discontinued on 04/10 as patient does not produce much urine, discussed with nephrology Dr. Calix * BNP: 5050 * Chest XR: Cardiomegaly with pulmonary edema. * Remains on baseline 3L NC * Echo 65-70% with no valvular abnormalities * Nephrology following, continue dialysis for fluid overload * Monitor vital signs, I&Os, BUN/creatinine, daily weights, neuro status and patient is a fall risk * Monitor serum electrolytes, Keep serum Potassium>4 and serum Magnesium>2 and CBC * Does not appear to be fluid overloaded on exam (4) Anemia: Qualifiers: Anemia type: due to chronic kidney disease Chronic kidney disease stage: on chronic dialysis Qualified Code(s): N18.6 - End stage renal disease; D63.1 - Anemia in chronic kidney disease; Z99.2 - Dependence on renal dialysis Code(s): D64.9 - Anemia, unspecified Status: Acute Assessment and Plan: * Hgb 9.2 on admission, and currently staying stable in the 7-8 range * Iron WNL * Isat 46, EPO per Nephrology * EGD negative for source of bleeding. * GI recommended outpatient colonoscopy. * 04/13: Hgb 8.5 (5) Hyperkalemia: Code(s): E87.5 - Hyperkalemia Status: Acute Assessment and Plan: * Hyperkalemia on admission, received dialysis and has since resolved. (6) End stage renal disease: Code(s): N18.6 - End stage renal disease Status: Chronic Assessment and Plan: * HD dialysis on Wednesday * Nephrology following, on dialysis * Endorses full body itching despite hydroxyzine - will start Benadryl prn * Dialysis today (7) HTN (hypertension): Qualifiers: Hypertension type: unspecified Qualified Code(s): I10 - Essential (primary) hypertension Code(s): I10 - Essential (primary) hypertension Status: Chronic Assessment and Plan: * Not on antihypertensives * Requiring midodrine for hypotension during dialysis which was increased by nephrology to 10 mg prior to treatment and 10 mg 2 hours into treatment as needed * Stable (8) COPD (chronic obstructive pulmonary disease): Qualifiers: COPD type: unspecified COPD Qualified Code(s): J44.9 - Chronic obstructive pulmonary disease, unspecified Code(s): J44.9 - Chronic obstructive pulmonary disease, unspecified Status: Acute Assessment and Plan: * DuoNebs (9) Seizures: Code(s): R56.9 - Unspecified convulsions Status: Acute Assessment and Plan: * Continue Keppra 500 mg BID (10) Bipolar 1 disorder: Code(s): F31.9 - Bipolar disorder, unspecified Status: Chronic Assessment and Plan: * Continue Seroquel (11) Anxiety: Code(s): F41.9 - Anxiety disorder, unspecified Status: Acute Assessment and Plan: * continue escitalopram Plan Code status: Full Code Diet: Diabetic & Renal Dialysis Diet GI Prophylaxis: PO Pantoprazole DVT Prophylaxis: SCDs Subjective Date/time seen: 04/13/25 06:55 Interval history: 65 year old female with past medical history of afib, diastolic heart failure, COPD, ESRD on dialysis, CHF, HTN, bipolar, SHELDON, and seizure disorder presents to the hospital for shortness of breath. 04/13/2025 Patient resting comfortably in bed. Denies any chest pain, n/v, abd pain, or SOB at this time. Planning for dialysis today. Urine culture shows sensitivity to Meropenem. Will continue with IV Taz for 3 more additional days after today as impaired kidney function makes alternative oral options no viable. Pt amenable to this plan, otherwise has no complaints or concerns. Review of Systems Review of Systems: 12 systems were reviewed and are negativ e except for as per HPI. All systems reviewed & are unremarkable except as noted in HPI and below Exam Narrative: General: female in no acute respiratory distress who is nontoxic appearing, lying semi recumbent in bed. HEENT: Normocephalic. Atraumatic. Extraocular movement intact. Sclera clear and anicteric. No facial asymmetry. Chest: Lungs are clear to auscultation bilaterally. No wheezes or crackles. CV: Heart was regular rate and rhythm. Abd: Abdomen was soft. Nontender. Nondistended. Positive bowel sounds. Ext: No clubbing, cyanosis, or edema. DP pulses bilaterally. Neuro: Patient is alert and oriented x3. Speech is clear. Objective Data Vital Signs Vital Signs: Vital Signs - 24 hr 04/12/25 07:10 04/12/25 07:10 04/12/25 07:18 Temperature Pulse Rate 73 82 Respiratory Rate 24 H 24 H Blood Pressure Pulse Oximetry 99 Oxygen Delivery Nasal Cannula Oxygen Flow Rate 3 Fraction of Inspired Oxygen 04/12/25 08:50 04/12/25 13:04 04/12/25 13:11 Temperature Pulse Rate 80 76 Respiratory Rate 20 20 Blood Pressure Pulse Oximetry 100 Oxygen Delivery Nasal Cannula Oxygen Flow Rate 3 Fraction of Inspired Oxygen 04/12/25 14:00 04/12/25 19:48 04/12/25 19:50 Temperature 97.7 F Pulse Rate 73 72 72 Respiratory Rate 16 20 20 Blood Pressure 132/40 L Pulse Oximetry 100 99 Oxygen Delivery Nasal Cannula Oxygen Flow Rate 3 Fraction of Inspired Oxygen 32 04/12/25 20:00 04/12/25 20:04 04/13/25 01:21 Temperature 97.6 F Pulse Rate 73 73 Respiratory Rate 18 26 H Blood Pressure 108/81 Pulse Oximetry 100 100 98 Oxygen Delivery Nasal Cannula BiPAP Oxygen Flow Rate 3 Fraction of Inspired Oxygen 04/13/25 04:01 04/13/25 04:38 Temperature 97.7 F Pulse Rate 70 71 Respiratory Rate 24 H 20 Blood Pressure 112/48 L Pulse Oximetry 95 100 Oxygen Delivery BiPAP Oxygen Flow Rate Fraction of Inspired Oxygen Intake/Output Intake/Output: Intake & Output 04/10/25 04/11/25 04/12/25 04/13/25 23:59 23:59 23:59 23:59 Intake Total 1650 1090 1660 850 Output Total 400 4800 250 Balance 1250 -3710 1410 850 Meds/Results Medications: Active Medications Generic Name Dose Route Start Last Admin Trade Name Freq PRN Reason Stop Dose Admin Acetaminophen 650 mg 04/06/25 17:25 Acetaminophen 325 Mg Tablet PO Q4H PRN Mild Pain (1-3) or Fever Hydrocodone Bitart/Acetaminophen 1 tab 04/06/25 17:25 04/13/25 06:22 Hydrocodone/Acetaminophen (*Crx) 5-325 Mg Tablet PO 1 tab Q4H PRN Administration Moderate Pain (4-6) Albuterol/Ipratropium 3 ml 04/06/25 14:00 04/13/25 01:18 Ipratropium 0.5 Mg/Albuterol Sulfate 2.5 Mg Ampul.Neb 3 Ml INHALATION 3 ml Q6HRT MARLEEN Administration Atorvastatin Calcium 40 mg 04/06/25 21:00 04/12/25 20:05 Atorvastatin 40 Mg Tablet PO 40 mg QHS MARLEEN Administration Dextrose 12.5 gm 04/07/25 10:55 Dextrose 50% 25 Gm/50 Ml Syringe IV PUSH PRN PRN Hypoglycemia Protocol Diphenhydramine HCl 25 mg 04/12/25 11:31 04/13/25 06:34 Diphenhydramine Hcl Cap 25 Mg Capsule PO 25 mg Q6H PRN Administration Itching Docusate Sodium 100 mg 04/07/25 09:00 04/12/25 16:34 Docusate Sodium 100 Mg Capsule PO 100 mg BID MARLEEN Administration Epoetin Ilya-epbx 20,000 units 04/13/25 18:52 Epoetin Ilya-Epbx 10,000 Units/Ml Vial IV PUSH 04/13/25 18:53 ONCE ONE Escitalopram Oxalate 20 mg 04/12/25 09:00 04/12/25 08:49 Escitalopram Oxalate 10 Mg Tablet PO 20 mg DAILY MARLEEN Administration Ferrous Sulfate 325 mg 04/07/25 09:00 04/12/25 08:49 Ferrous Sulfate [address] BY MOUTH 325 mg DAILY MARLEEN Administration Gabapentin 100 mg 04/07/25 09:00 04/12/25 16:34 Gabapentin 100 Mg Capsule PO 100 mg BID MARLEEN Administration Glucose 15 gm 04/07/25 10:55 Glucose Oral Gel 15 Gm Of Glucse In 37.5 Gm Tube PO PRN PRN Hypoglycemia Protocol Hydroxyzine HCl 25 mg 04/07/25 04:05 04/12/25 16:34 Hydroxyzine Hcl 25 Mg Tablet PO 25 mg TID MARLEEN Administration Dextrose 1,000 mls @ 100 mls/hr 04/07/25 10:55 Dextrose 5% 1,000 Ml IVPB PRN PRN Hypoglycemia Protocol Albumin Human 50 mls @ 999 mls/hr 04/08/25 09:28 Albutein IVPB 05/08/25 09:27 Q10M PRN HYPOTENSION Meropenem 500 mg/ Sodium 100 mls @ 200 mls/hr 04/10/25 15:00 04/12/25 16:34 Chloride IVPB 200 mls/hr Q24H MARLEEN Administration Sodium Chloride 1,000 mls @ 999 mls/hr 04/13/25 06:51 Normal Saline Iv IV CONT 04/13/25 07:51 .Q1H1M ONE Sodium Chloride 1,000 mls @ 0 mls/hr 04/13/25 06:51 Normal Saline Iv IV CONT 04/13/25 06:52 .Q0M ONE Per Protocol Insulin Aspart 2 - 5 units 04/07/25 12:00 04/12/25 16:43 Insulin Aspart (*Bkc) 100 Units/Ml SUB-Q Not Given TIDWM [facility] Protocol Insulin Aspart 1 - 2 units 04/07/25 21:00 04/12/25 21:01 Insulin Aspart (*Bkc) 100 Units/Ml SUB-Q Not Given HS MARLEEN Protocol Levetiracetam 500 mg 04/07/25 03:25 04/12/25 20:05 Levetiracetam 500 Mg Tablet PO 500 mg Q12HR MARLEEN Administration Midodrine 10 mg 04/07/25 09:51 04/11/25 07:50 Midodrine Hcl 10 Mg Tablet PO 10 mg PRN PRN Administration half hour before dialysis and then 2 hours into dialysis Ondansetron HCl 4 mg 04/06/25 17:25 Ondansetron Inj 4 Mg/2 Ml Vial IV PUSH Q6H PRN Nausea And Vomiting Oxcarbazepine 150 mg 04/07/25 03:25 04/12/25 20:05 Oxcarbazepine 150 Mg Tablet PO 150 mg Q12HR MARLEEN Administration Pantoprazole Sodium 40 mg 04/11/25 21:00 04/12/25 20:06 Pantoprazole 40 Mg Tablet PO 40 mg Q12HR MARLEEN Administration Perflutren Lipid Microsphere 0 ml 04/10/25 09:59 Perflutren Lipid Microspheres 1.5 Ml Vial Diluted To 10 Ml Total Volume IV PUSH 04/13/25 09:59 ONCE PRN adequate visualization Protocol Quetiapine Fumarate 50 mg 04/07/25 21:00 04/12/25 20:59 Quetiapine Fumarate 25 Mg Tablet PO 50 mg HS MARLEEN Administration Trazodone HCl 50 mg 04/06/25 21:00 04/12/25 20:59 Trazodone Hcl 50 Mg Tablet PO 50 mg HS MARLEEN Administration Radiology Results: ITS Impressions Chest X-Ray 04/06/25 12:18 Impression: 1: Cardiomegaly with pulmonary edema. Venous Doppler Study 04/07/25 18:31 IMPRESSION: Patent bilateral lower extremity veins. No evidence of deep venous thrombosis. Abdomen Ultrasound 04/08/25 23:15 IMPRESSION: Limited evaluation. The pancreas, spleen, and left kidney are poorly visualized. Limited parenchymal evaluation of the liver, with no surface nodularity to suggest cirrhosis. Normal size gallbladder, likely containing sludge and stones. Labs Labs: Laboratory Results - last 24 hr 04/12/25 04/12/25 04/12/25 07:53 12:00 16:36 POC Capillary Glucose 130 H 129 H 126 H Magnesium 04/12/25 04/13/25 20:02 04:35 POC Capillary Glucose 114 H Magnesium 1.8 Quality VTE Prophylaxis VTE prophylaxis: mechanical ordered
[2025-04-13 07:01] LABS: Hematocrit 29.2 % (37.0-47.0); Hemoglobin 8.5 g/dL (12.0-15.0); Immature Granulocyte Percent A 0.8 % (0-0.5); Lymphocytes Absolute Auto 0.91 K/mm3 (0.9-3.2); Mean Corpuscular HGB Conc 29.1 g/dl (32-36); Mean Corpuscular Hemoglobin 28.2 pg (26-34); Mean Corpuscular Volume 97.0 fl (80-100); Nucleated Red Blood Cells Absolute Auto 0.000 K/mm3 (0.0-0.012); Nucleated Red Blood Cells Perc 0.0 % (0.0-0.2); Platelet Count Result 160 k/mm3 (150-375); Red Blood Count 3.01 M/mm3 (4.2-5.4); White Blood Count 6.6 K/mm3 (4.5-10.0)
[2025-04-13 07:05] LABS: Albumin Level 3.6 g/dL (3.5-5.1); Anion Gap 12 mmol/L (4-12); Blood Urea Nitrogen 41 mg/dL (7-17); Calcium 9.4 mg/dL (8.4-10.2); Carbon Dioxide 22 mmol/L (22-30); Chloride 102 mmol/L (98-107); Estimated CRCL calculation 16 ml/min; Estimated Glomerular Filt Rate 9; Glucose 135 mg/dL (65-110); Potassium 4.4 mmol/L (3.4-5.0); Sodium 136 mmol/L (137-145)
[2025-04-13 07:14] LABS: Alanine Aminotransferase 12 U/L (6-35); Alkaline Phosphatase 89 U/L (38-126); Aspartate Amino Transferase 17 U/L (14-36); Bilirubin,Total 0.3 mg/dL (0.2-1.3); Total Protein 6.6 g/dL (6.3-8.2)
[2025-04-13 07:36] LABS: Anisocytosis 1+; Basophilic Stippling 1+; Hypochromasia 1+; Ovalocytes 1+; Polychromasia 1+
[2025-04-13 07:37] LABS: Schistocytes None Seen
[2025-04-13] MEDS: DOCUSATE SODIUM 100 MG CAPSULE PO ×2 (08:55→16:49)
[2025-04-13] MEDS: ESCITALOPRAM OXALATE 10 MG TABLET 20 MG PO (08:55)
[2025-04-13] MEDS: GABAPENTIN 100 MG CAPSULE PO ×2 (08:56→16:49)
[2025-04-13] MEDS: PANTOPRAZOLE 40 MG TABLET PO ×2 (08:56→20:30)
[2025-04-13] MEDS: FERROUS SULFATE 325 MG TABLET DR BY MOUTH (08:56)
--- NOTE | 2025-04-13 10:36 | PCNWS ---
Weekly nutritional screen. Patient is tolerating current diet with adequate intake. No weight loss reported. No nutritional needs at this time.
[2025-04-13] MEDS: MIDODRINE HCL 10 MG TABLET PO ×2 (13:10→16:50)
--- NOTE | 2025-04-13 14:31 | P.PNNP_ITS ---
Progress Note: A&P Assessment and Plan (1) End stage renal disease: Code(s): N18.6 - End stage renal disease Status: Chronic Assessment and Plan: * HD today * continue outpatient schedule of Mondays, Wednesdays, and Fridays * follow electrolytes, volume status, and clearance (2) Volume overload: Code(s): E87.70 - Fluid overload, unspecified Status: Acute Assessment and Plan: * resolving * admission CXR with cardiomegaly and pulmonary edema * presumably precipitated by missed dialysis treatment prior to admission * clinically better s/p aggressive ultrafiltration/fluid removal with dialysis * continue current therapy/interventions (3) Anemia: Qualifiers: Anemia type: due to chronic kidney disease Chronic kidney disease stage: on chronic dialysis Qualified Code(s): N18.6 - End stage renal disease; D63.1 - Anemia in chronic kidney disease; Z99.2 - Dependence on renal dialysis Code(s): D64.9 - Anemia, unspecified Status: Acute Assessment and Plan: * stable if not improving * partly due to ESRD * however, guaiac positive stool noted * GI recommendations noted * s/p EGD on 04/11: only mild gastritis noted * H/H relatively stable * no evidence of iron deficiency by anemia studies * high dose Epogen with dialysis * follow trend of H/H (4) UTI (urinary tract infection): Code(s): N39.0 - Urinary tract infection, site not specified Status: Acute Assessment and Plan: * admission UA suggestive * urine culture with E.coli * on antibiotics (5) HTN (hypertension): Qualifiers: Hypertension type: unspecified Qualified Code(s): I10 - Essential (primary) hypertension Code(s): I10 - Essential (primary) hypertension Status: Chronic Assessment and Plan: * reasonable control * off antihypertensives at this time * on midodrine for dialysis purposes (6) Chronic respiratory failure with hypoxia: Code(s): J96.11 - Chronic respiratory failure with hypoxia Status: Chronic Assessment and Plan: * multifactorial: * COPD * SHELDON * OHS * CHF * pulmonary edema * on chronic supplemental oxygen * on [facility]PAP at the [facility] * continue supportive therapy (7) Bipolar 1 disorder: Code(s): F31.9 - Bipolar disorder, unspecified Status: Chronic Assessment and Plan: * continue Seroquel (8) Left renal mass: Code(s): N28.89 - Other specified disorders of kidney and ureter Status: Chronic Assessment and Plan: * follows with Urology as an outpatient (concern is for malignancy) * per review of outside records, deemed to be a poor surgical candidate Not opposed to discharge from renal perspective if/when patient is otherwise medically stable. Will continue to follow. L Subjective Date/time seen: 04/13/25 14:31 Interval history: Follow-up for end stage renal disease on hemodialysis. Tolerating dialysis treatment at the time of my visit (seen on HD at 2:20pm); appears to be doing reasonably well when seen; no apparent distress or acute complaints voiced; no issues/events overnight or earlier today/this morning; H/H remains stable if not improving; overall, she feels pretty good. Exam 2 Narrative: General: large but WD/WN female in NAD Heart: normal S1 and S2; no rub Lungs: clear anteriorly; diminished at bases Abdomen: obese but soft, nontender, nondistended, + bowel sounds Extremities: no cyanosis or clubbing; no edema Skin: warm and dry Objective Data Vital Signs Vital Signs: Vital Signs Temp Pulse Resp BP Pulse Ox O2 Del Method O2 Flow Rate 04/13/25 14:30 72 121/61 04/13/25 14:15 65 144/61 H 04/13/25 13:57 97.2 F L 77 18 131/38 L 100 04/13/25 13:56 67 142/58 H 04/13/25 13:56 3 04/13/25 13:46 97.7 F 67 18 134/48 L 100 04/13/25 09:26 76 20 04/13/25 09:15 Room Air 04/13/25 07:38 80 20 04/13/25 07:38 98 Nasal Cannula 3 04/13/25 04:38 97.7 F 71 20 112/48 L 100 04/13/25 04:01 70 24 H 95 BiPAP 04/13/25 01:21 73 26 H 98 BiPAP 04/12/25 20:04 97.6 F 73 18 108/81 100 04/12/25 20:00 100 Nasal Cannula 3 04/12/25 19:50 72 20 99 Nasal Cannula 3 04/12/25 19:48 72 20 Intake/Output Intake/Output: Intake & Output 04/10/25 04/11/25 04/12/25 04/13/25 23:59 23:59 23:59 23:59 Intake Total 1650 1090 1660 1330 Output Total 400 4800 250 3400 Balance 1250 -3710 1410 -2070 Meds/Results Medications: Active Medications Generic Name Dose Route Start Last Admin Trade Name Freq PRN Reason Stop Dose Admin Acetaminophen 650 mg 04/06/25 17:25 Acetaminophen 325 Mg Tablet PO Q4H PRN Mild Pain (1-3) or Fever Hydrocodone Bitart/Acetaminophen 1 tab 04/06/25 17:25 04/13/25 06:22 Hydrocodone/Acetaminophen (*Crx) 5-325 Mg Tablet PO 1 tab Q4H PRN Administration Moderate Pain (4-6) Albuterol/Ipratropium 3 ml 04/06/25 14:00 04/13/25 14:31 Ipratropium 0.5 Mg/Albuterol Sulfate 2.5 Mg Ampul.Neb 3 Ml INHALATION 3 ml Q6HRT MARLEEN Administration Atorvastatin Calcium 40 mg 04/06/25 21:00 04/12/25 20:05 Atorvastatin 40 Mg Tablet PO 40 mg QHS MARLEEN Administration Dextrose 12.5 gm 04/07/25 10:55 Dextrose 50% 25 Gm/50 Ml Syringe IV PUSH PRN PRN Hypoglycemia Protocol Diphenhydramine HCl 50 mg 04/13/25 14:48 04/13/25 16:50 Diphenhydramine Hcl Cap 25 Mg Capsule PO 50 mg Q6H PRN Administration Itching Docusate Sodium 100 mg 04/07/25 09:00 04/13/25 16:49 Docusate Sodium 100 Mg Capsule PO 100 mg BID MARLEEN Administration Epoetin Ilya-epbx 20,000 units 04/13/25 18:52 04/13/25 16:17 Epoetin Ilya-Epbx 20,000 Units/Ml Vial IV PUSH 04/13/25 18:53 20,000 units ONCE ONE Administration Escitalopram Oxalate 20 mg 04/12/25 09:00 04/13/25 08:55 Escitalopram Oxalate 10 Mg Tablet PO 20 mg DAILY MARLEEN Administration Ferrous Sulfate 325 mg 04/07/25 09:00 04/13/25 08:56 Ferrous Sulfate [address] BY MOUTH 325 mg DAILY MARLEEN Administration Gabapentin 100 mg 04/07/25 09:00 04/13/25 16:49 Gabapentin 100 Mg Capsule PO 100 mg BID MARLEEN Administration Glucose 15 gm 04/07/25 10:55 Glucose Oral Gel 15 Gm Of Glucse In 37.5 Gm Tube PO PRN PRN Hypoglycemia Protocol Hydroxyzine HCl 25 mg 04/07/25 04:05 04/13/25 16:50 Hydroxyzine Hcl 25 Mg Tablet PO 25 mg TID MARLEEN Administration Dextrose 1,000 mls @ 100 mls/hr 04/07/25 10:55 Dextrose 5% 1,000 Ml IVPB PRN PRN Hypoglycemia Protocol Albumin Human 50 mls @ 999 mls/hr 04/08/25 09:28 Albutein IVPB 05/08/25 09:27 Q10M PRN HYPOTENSION Meropenem 500 mg/ Sodium 100 mls @ 200 mls/hr 04/10/25 15:00 04/12/25 16:34 Chloride IVPB 04/16/25 15:29 200 mls/hr Q24H MARLEEN Administration Insulin Aspart 2 - 5 units 04/07/25 12:00 04/13/25 13:30 Insulin Aspart (*Bkc) 100 Units/Ml SUB-Q Not Given TIDWM MARLEEN Protocol Insulin Aspart 1 - 2 units 04/07/25 21:00 04/12/25 21:01 Insulin Aspart (*Bkc) 100 Units/Ml SUB-Q Not Given HS MARLEEN Protocol Levetiracetam 500 mg 04/07/25 03:25 04/13/25 08:55 Levetiracetam 500 Mg Tablet PO 500 mg Q12HR MARLEEN Administration Midodrine 10 mg 04/07/25 09:51 04/13/25 16:50 Midodrine Hcl 10 Mg Tablet PO 10 mg PRN PRN Administration half hour before dialysis and then 2 hours into dialysis Ondansetron HCl 4 mg 04/06/25 17:25 Ondansetron Inj 4 Mg/2 Ml Vial IV PUSH Q6H PRN Nausea And Vomiting Oxcarbazepine 150 mg 04/07/25 03:25 04/13/25 08:56 Oxcarbazepine 150 Mg Tablet PO 150 mg Q12HR MARLEEN Administration Pantoprazole Sodium 40 mg 04/11/25 21:00 04/13/25 08:56 Pantoprazole 40 Mg Tablet PO 40 mg Q12HR MARLEEN Administration Quetiapine Fumarate 50 mg 04/07/25 21:00 04/12/25 20:59 Quetiapine Fumarate 25 Mg Tablet PO 50 mg HS MARLEEN Administration Trazodone HCl 50 mg 04/06/25 21:00 04/12/25 20:59 Trazodone Hcl 50 Mg Tablet PO 50 mg HS MARLEEN Administration Radiology Results: ITS Impressions Chest X-Ray 04/06/25 12:18 Impression: 1: Cardiomegaly with pulmonary edema. Venous Doppler Study 04/07/25 18:31 IMPRESSION: Patent bilateral lower extremity veins. No evidence of deep venous thrombosis. Abdomen Ultrasound 04/08/25 23:15 IMPRESSION: Limited evaluation. The pancreas, spleen, and left kidney are poorly visualized. Limited parenchymal evaluation of the liver, with no surface nodularity to suggest cirrhosis. Normal size gallbladder, likely containing sludge and stones. Labs Labs: Laboratory Tests 04/13/25 04:35 04/13/25 04:35 Calcium 9.4 Phosphorus 6.0 H Magnesium 1.8 Total Bilirubin 0.3 Direct Bilirubin 0.0 AST 17 ALT 12 Alkaline Phosphatase 89 Total Protein 6.6 Albumin 3.6 Microbiology 04/07/25 09:40 Urine [place] Urine Culture - Final Escherichia coli
[2025-04-13] MEDS: EPOETIN ALFA-EPBX 20,000 UNITS/ML VIAL 20000 UNITS IV PUSH (16:17)
[2025-04-13] MEDS: diphenhydrAMINE HCl CAP 25 MG CAPSULE 50 MG PO ×2 (16:50→23:09)
[2025-04-13] MEDS: MEROPENEM 500 MG in SODIUM CHLORIDE 0.9% IV 100 ML 200 ML IVPB (18:12)
[2025-04-13] MEDS: ATORVASTATIN 40 MG TABLET PO (20:30)
[2025-04-14] VITALS (13 sets, daily range): BP systolic 112–127; BP diastolic 33–49; PULSE 66–77; RESP 16–24; TEMP 36.1–36.4; O2SAT 96–100
[2025-04-14] MEDS: IPRATROPIUM 0.5 MG/ALBUTEROL SULFATE 2.5 MG AMPUL.NEB 3 ML INHALATION ×4 (01:54→20:38)
[2025-04-14] MEDS: HYDROcodone/acetaminophen (*CRX) 5-325 MG TABLET 1 TAB PO ×3 (04:10→20:50)
[2025-04-14] MEDS: diphenhydrAMINE HCl CAP 25 MG CAPSULE 50 MG PO ×2 (04:10→20:50)
[2025-04-14 05:33] LABS: Hematocrit 27.5 % (37.0-47.0); Hemoglobin 8.2 g/dL (12.0-15.0); Immature Granulocyte Percent A 0.9 % (0-0.5); Lymphocytes Absolute Auto 0.84 K/mm3 (0.9-3.2); Mean Corpuscular HGB Conc 29.8 g/dl (32-36); Mean Corpuscular Hemoglobin 28.9 pg (26-34); Mean Corpuscular Volume 96.8 fl (80-100); Nucleated Red Blood Cells Absolute Auto 0.000 K/mm3 (0.0-0.012); Nucleated Red Blood Cells Perc 0.0 % (0.0-0.2); Platelet Count Result 154 k/mm3 (150-375); Red Blood Count 2.84 M/mm3 (4.2-5.4); White Blood Count 7.0 K/mm3 (4.5-10.0)
[2025-04-14 05:49] LABS: Alanine Aminotransferase 10 U/L (6-35); Albumin Level 3.5 g/dL (3.5-5.1); Alkaline Phosphatase 97 U/L (38-126); Anion Gap 10 mmol/L (4-12); Aspartate Amino Transferase 20 U/L (14-36); Bilirubin,Total 0.2 mg/dL (0.2-1.3); Blood Urea Nitrogen 33 mg/dL (7-17); Calcium 8.8 mg/dL (8.4-10.2); Carbon Dioxide 27 mmol/L (22-30); Chloride 101 mmol/L (98-107); Estimated CRCL calculation 23 ml/min; Estimated Glomerular Filt Rate 13; Glucose 154 mg/dL (65-110); Potassium 4.3 mmol/L (3.4-5.0); Sodium 138 mmol/L (137-145); Total Protein 6.3 g/dL (6.3-8.2)
[2025-04-14 06:16] LABS: Anisocytosis 1+; Basophilic Stippling 1+; Hypochromasia 1+; Polychromasia 1+; Schistocytes None Seen
--- NOTE | 2025-04-14 07:12 | P.PNIM_ITS ---
Progress Note: A&P Assessment and Plan (1) Occult blood in stools: Code(s): R19.5 - Other fecal abnormalities Status: Acute Assessment and Plan: * Occult stool positive and anemia * Monitor serum electrolytes, CBC, hemoglobin/hematocrit q.8 hours. If hemoglobin drops below 7 transfuse packed red blood cells * Monitor for bloody bowel movements,chest pain,SOB or dizziness/lightheadedness * PO Pantoprazole BID * DVT Px: SCDs * GI consult * EGD: gastritis - ok to resume diet. * Discussed patient & familial colon cancer history with Dr. Pena. Recommends outpatient colonoscopy. * Signed off. * US liver: unremarkable * Echo obtained, LVEF 65-70% no valvular abnormalities (2) UTI (urinary tract infection): Code(s): N39.0 - Urinary tract infection, site not specified Status: Acute Assessment and Plan: * Currenlty Denies dysuria and burning. * UA (04/06) concerning for infection * Prelim UC: gram negative bacilli * Prior ESBL on 01/12/25 * continue IV meropenem - 2 additional days after today * webber catheter discontinued, discussed with nephrology and in agreement with removal (3) CHF (congestive heart failure): Qualifiers: Heart failure chronicity: unspecified Heart failure type: unspecified Qualified Code(s): I50.9 - Heart failure, unspecified Code(s): I50.9 - Heart failure, unspecified Status: Acute Assessment and Plan: * Current medications: IV lasix 40 mg BID discontinued on 04/10 as patient does not produce much urine, discussed with nephrology Dr. Calix * BNP: 5050 * Chest XR: Cardiomegaly with pulmonary edema. * Remains on baseline 3L NC * Echo 65-70% with no valvular abnormalities * Nephrology following, continue dialysis for fluid overload * Monitor vital signs, I&Os, BUN/creatinine, daily weights, neuro status and patient is a fall risk * Monitor serum electrolytes, Keep serum Potassium>4 and serum Magnesium>2 and CBC * Does not appear to be fluid overloaded on exam (4) Anemia: Qualifiers: Anemia type: due to chronic kidney disease Chronic kidney disease stage: on chronic dialysis Qualified Code(s): N18.6 - End stage renal disease; D63.1 - Anemia in chronic kidney disease; Z99.2 - Dependence on renal dialysis Code(s): D64.9 - Anemia, unspecified Status: Acute Assessment and Plan: * Hgb 9.2 on admission, and currently staying stable in the 7-8 range * Iron WNL * Isat 46, EPO per Nephrology * EGD negative for source of bleeding. * GI recommended outpatient colonoscopy. * 04/14: Hgb 8.2 (5) Hyperkalemia: Code(s): E87.5 - Hyperkalemia Status: Acute Assessment and Plan: * Hyperkalemia on admission, received dialysis and has since resolved. (6) End stage renal disease: Code(s): N18.6 - End stage renal disease Status: Chronic Assessment and Plan: * HD dialysis on Wednesday * Nephrology following, on dialysis * Endorses full body itching despite hydroxyzine - will start Benadryl prn * Dialysis today * 04/14: Cr 3.51 (7) HTN (hypertension): Qualifiers: Hypertension type: unspecified Qualified Code(s): I10 - Essential (primary) hypertension Code(s): I10 - Essential (primary) hypertension Status: Chronic Assessment and Plan: * Not on antihypertensives * Requiring midodrine for hypotension during dialysis which was increased by nephrology to 10 mg prior to treatment and 10 mg 2 hours into treatment as needed * Stable (8) COPD (chronic obstructive pulmonary disease): Qualifiers: COPD type: unspecified COPD Qualified Code(s): J44.9 - Chronic obstructive pulmonary disease, unspecified Code(s): J44.9 - Chronic obstructive pulmonary disease, unspecified Status: Acute Assessment and Plan: * DuoNebs (9) Seizures: Code(s): R56.9 - Unspecified convulsions Status: Acute Assessment and Plan: * Continue Keppra 500 mg BID (10) Bipolar 1 disorder: Code(s): F31.9 - Bipolar disorder, unspecified Status: Chronic Assessment and Plan: * Continue Seroquel (11) Anxiety: Code(s): F41.9 - Anxiety disorder, unspecified Status: Acute Assessment and Plan: * continue escitalopram Plan Code status: Full Code Diet: Diabetic & Renal Dialysis Diet GI Prophylaxis: PO Pantoprazole DVT Prophylaxis: SCDs Subjective Date/time seen: 04/14/25 07:12 Interval history: 65 year old female with past medical history of afib, diastolic heart failure, COPD, ESRD on dialysis, CHF, HTN, bipolar, SHELDON, and seizure disorder presents to the hospital for shortness of breath. 04/14/2025 Patient resting comfortably in bed. Denies any chest pain, n/v, abd pain, or SOB at this time. Creatinine down from 4.96-> 3.51 today. Plan is to continue meropenem IV as infection is resistant to other options, and we are limited with patient's baseline kidney function. She will likely need 2 additional days of IV meropenem. Patient is amenable to this plan. Otherwise stable and has no concerns or complaints. Review of Systems Review of Systems: 12 systems were reviewed and are negativ e except for as per HPI. All systems reviewed & are unremarkable except as noted in HPI and below Exam Narrative: General: female in no acute respiratory distress who is nontoxic appearing, lying semi recumbent in bed. HEENT: Normocephalic. Atraumatic. Extraocular movement intact. Sclera clear and anicteric. No facial asymmetry. Chest: Lungs are clear to auscultation bilaterally. No wheezes or crackles. CV: Heart was regular rate and rhythm. Abd: Abdomen was soft. Nontender. Nondistended. Positive bowel sounds. Ext: No clubbing, cyanosis, or edema. DP pulses bilaterally. Neuro: Patient is alert and oriented x3. Speech is clear. Objective Data Vital Signs Vital Signs: Vital Signs - 24 hr 04/13/25 07:38 04/13/25 07:38 04/13/25 09:15 Temperature Pulse Rate 80 Respiratory Rate 20 Blood Pressure Pulse Oximetry 98 Oxygen Delivery Nasal Cannula Room Air Oxygen Flow Rate 3 Fraction of Inspired Oxygen 04/13/25 09:26 04/13/25 13:46 04/13/25 13:56 Temperature 97.7 F Pulse Rate 76 67 Respiratory Rate 20 18 Blood Pressure 134/48 L Pulse Oximetry 100 Oxygen Delivery Oxygen Flow Rate 3 Fraction of Inspired Oxygen 04/13/25 13:56 04/13/25 13:57 04/13/25 14:15 Temperature 97.2 F L Pulse Rate 67 77 65 Respiratory Rate 18 Blood Pressure 142/58 H 131/38 L 144/61 H Pulse Oximetry 100 Oxygen Delivery Oxygen Flow Rate Fraction of Inspired Oxygen 04/13/25 14:30 04/13/25 14:34 04/13/25 14:42 Temperature Pulse Rate 72 67 68 Respiratory Rate 20 20 Blood Pressure 121/61 Pulse Oximetry Oxygen Delivery Oxygen Flow Rate Fraction of Inspired Oxygen 04/13/25 14:45 04/13/25 15:00 04/13/25 15:15 Temperature Pulse Rate 70 73 72 Respiratory Rate Blood Pressure 133/63 128/57 L 130/52 L Pulse Oximetry Oxygen Delivery Oxygen Flow Rate Fraction of Inspired Oxygen 04/13/25 15:30 04/13/25 15:45 04/13/25 16:00 Temperature Pulse Rate 70 69 71 Respiratory Rate Blood Pressure 131/57 L 122/57 L 119/57 L Pulse Oximetry Oxygen Delivery Oxygen Flow Rate Fraction of Inspired Oxygen 04/13/25 16:15 04/13/25 16:24 04/13/25 16:37 Temperature Pulse Rate 60 64 70 Respiratory Rate Blood Pressure 129/51 L 121/52 L 109/46 L Pulse Oximetry Oxygen Delivery Oxygen Flow Rate Fraction of Inspired Oxygen 04/13/25 16:45 04/13/25 17:00 04/13/25 17:15 Temperature Pulse Rate 65 68 66 Respiratory Rate Blood Pressure 137/58 L 117/41 L 117/55 L Pulse Oximetry Oxygen Delivery Oxygen Flow Rate Fraction of Inspired Oxygen 04/13/25 17:30 04/13/25 17:45 04/13/25 17:49 Temperature 98.4 F Pulse Rate 73 73 70 Respiratory Rate 18 Blood Pressure 104/46 L 117/48 L 125/56 L Pulse Oximetry 100 Oxygen Delivery Oxygen Flow Rate Fraction of Inspired Oxygen 04/13/25 20:00 04/13/25 20:05 04/13/25 20:10 Temperature Pulse Rate 73 67 Respiratory Rate 20 20 Blood Pressure Pulse Oximetry 100 98 Oxygen Delivery Nasal Cannula Nasal Cannula Oxygen Flow Rate 3 3 Fraction of Inspired Oxygen 32 04/13/25 20:16 04/13/25 21:41 04/14/25 00:45 Temperature 97 F L Pulse Rate 68 73 77 Respiratory Rate 20 20 24 H Blood Pressure 124/44 L Pulse Oximetry 100 96 Oxygen Delivery BiPAP Oxygen Flow Rate Fraction of Inspired Oxygen 04/14/25 01:54 04/14/25 02:05 04/14/25 04:33 Temperature 97 F L Pulse Rate 66 68 67 Respiratory Rate 24 H 24 H 20 Blood Pressure 112/44 L Pulse Oximetry 98 Oxygen Delivery Oxygen Flow Rate Fraction of Inspired Oxygen Intake/Output Intake/Output: Intake & Output 04/11/25 04/12/25 04/13/25 04/14/25 23:59 23:59 23:59 23:59 Intake Total 1090 1760 1670 350 Output Total 4800 250 3400 Balance -3710 1510 -1730 350 Meds/Results Medications: Active Medications Generic Name Dose Route Start Last Admin Trade Name Freq PRN Reason Stop Dose Admin Acetaminophen 650 mg 04/06/25 17:25 Acetaminophen 325 Mg Tablet PO Q4H PRN Mild Pain (1-3) or Fever Hydrocodone Bitart/Acetaminophen 1 tab 04/06/25 17:25 04/14/25 04:10 Hydrocodone/Acetaminophen (*Crx) 5-325 Mg Tablet PO 1 tab Q4H PRN Administration Moderate Pain (4-6) Albuterol/Ipratropium 3 ml 04/06/25 14:00 04/14/25 01:54 Ipratropium 0.5 Mg/Albuterol Sulfate 2.5 Mg Ampul.Neb 3 Ml INHALATION 3 ml Q6HRT MARLEEN Administration Atorvastatin Calcium 40 mg 04/06/25 21:00 04/13/25 20:30 Atorvastatin 40 Mg Tablet PO 40 mg QHS MARLEEN Administration Dextrose 12.5 gm 04/07/25 10:55 Dextrose 50% 25 Gm/50 Ml Syringe IV PUSH PRN PRN Hypoglycemia Protocol Diphenhydramine HCl 50 mg 04/13/25 14:48 04/14/25 04:10 Diphenhydramine Hcl Cap 25 Mg Capsule PO 50 mg Q6H PRN Administration Itching Docusate Sodium 100 mg 04/07/25 09:00 04/13/25 16:49 Docusate Sodium 100 Mg Capsule PO 100 mg BID MARLEEN Administration Escitalopram Oxalate 20 mg 04/12/25 09:00 04/13/25 08:55 Escitalopram Oxalate 10 Mg Tablet PO 20 mg DAILY MARLEEN Administration Ferrous Sulfate 325 mg 04/07/25 09:00 04/13/25 08:56 Ferrous Sulfate [address] BY MOUTH 325 mg DAILY MARLEEN Administration Gabapentin 100 mg 04/07/25 09:00 04/13/25 16:49 Gabapentin 100 Mg Capsule PO 100 mg BID MARLEEN Administration Glucose 15 gm 04/07/25 10:55 Glucose Oral Gel 15 Gm Of Glucse In 37.5 Gm Tube PO PRN PRN Hypoglycemia Protocol Hydroxyzine HCl 25 mg 04/07/25 04:05 04/13/25 16:50 Hydroxyzine Hcl 25 Mg Tablet PO 25 mg TID MARLEEN Administration Dextrose 1,000 mls @ 100 mls/hr 04/07/25 10:55 Dextrose 5% 1,000 Ml IVPB PRN PRN Hypoglycemia Protocol Albumin Human 50 mls @ 999 mls/hr 04/08/25 09:28 Albutein IVPB 05/08/25 09:27 Q10M PRN HYPOTENSION Meropenem 500 mg/ Sodium 100 mls @ 200 mls/hr 04/10/25 15:00 04/13/25 18:42 Chloride IVPB 04/16/25 15:29 Infused Q24H MARLEEN Infusion Insulin Aspart 2 - 5 units 04/07/25 12:00 04/13/25 18:28 Insulin Aspart (*Bkc) 100 Units/Ml SUB-Q Not Given TIDWM MARLEEN Protocol Insulin Aspart 1 - 2 units 04/07/25 21:00 04/13/25 21:49 Insulin Aspart (*Bkc) 100 Units/Ml SUB-Q Not Given HS MARLEEN Protocol Levetiracetam 500 mg 04/07/25 03:25 04/13/25 20:30 Levetiracetam 500 Mg Tablet PO 500 mg Q12HR MARLEEN Administration Midodrine 10 mg 04/07/25 09:51 04/13/25 16:50 Midodrine Hcl 10 Mg Tablet PO 10 mg PRN PRN Administration half hour before dialysis and then 2 hours into dialysis Ondansetron HCl 4 mg 04/06/25 17:25 Ondansetron Inj 4 Mg/2 Ml Vial IV PUSH Q6H PRN Nausea And Vomiting Oxcarbazepine 150 mg 04/07/25 03:25 04/13/25 20:30 Oxcarbazepine 150 Mg Tablet PO 150 mg Q12HR MARLEEN Administration Pantoprazole Sodium 40 mg 04/11/25 21:00 04/13/25 20:30 Pantoprazole 40 Mg Tablet PO 40 mg Q12HR MARLEEN Administration Quetiapine Fumarate 50 mg 04/07/25 21:00 04/13/25 23:09 Quetiapine Fumarate 25 Mg Tablet PO 50 mg HS MARLEEN Administration Trazodone HCl 50 mg 04/06/25 21:00 04/13/25 23:10 Trazodone Hcl 50 Mg Tablet PO 50 mg HS MARLEEN Administration Radiology Results: ITS Impressions Chest X-Ray 04/06/25 12:18 Impression: 1: Cardiomegaly with pulmonary edema. Venous Doppler Study 04/07/25 18:31 IMPRESSION: Patent bilateral lower extremity veins. No evidence of deep venous thrombosis. Abdomen Ultrasound 04/08/25 23:15 IMPRESSION: Limited evaluation. The pancreas, spleen, and left kidney are poorly visualized. Limited parenchymal evaluation of the liver, with no surface nodularity to suggest cirrhosis. Normal size gallbladder, likely containing sludge and stones. Labs Labs: Laboratory Results - last 24 hr 04/13/25 04/13/25 04/13/25 04:35 07:45 11:54 WBC 6.6 RBC 3.01 L Hgb 8.5 L Hct 29.2 L MCV 97.0 MCH 28.2 MCHC 29.1 L RDW 16.3 H Plt Count 160 MPV 9.7 Immature Gran % (Auto) 0.8 H Neut % (Auto) 78.9 H Lymph % (Auto) 13.8 L [place] % (Auto) 6.5 Eos % (Auto) 0.0 Baso % (Auto) 0.0 L Lymph # (Auto) 0.91 [place] # (Auto) 0.4 Eos # (Auto) 0.0 Baso # (Auto) 0.0 Abs Immat Gran (auto) 0.05 H Absolute Neuts (auto) 5.2 Absolute Nucleated RBC 0.000 Band Neutrophils % Not Reportable Nucleated RBC % 0.0 Platelet Estimate Adequate Polychromasia 1+ Hypochromasia 1+ Basophilic Stippling 1+ Anisocytosis 1+ Ovalocytes 1+ Schistocytes None seen Sodium Potassium Chloride Carbon Dioxide Anion Gap BUN Creatinine Estim Creat Clear Calc Estimated GFR Glucose POC Capillary Glucose 127 H 124 H Calcium Total Bilirubin 0.3 Direct Bilirubin 0.0 AST 17 ALT 12 Alkaline Phosphatase 89 Total Protein 6.6 Albumin 04/13/25 04/13/25 04/14/25 18:15 20:26 05:06 WBC 7.0 RBC 2.84 L Hgb 8.2 L Hct 27.5 L MCV 96.8 MCH 28.9 MCHC 29.8 L RDW 16.5 H Plt Count 154 MPV 9.6 Immature Gran % (Auto) 0.9 H Neut % (Auto) 80.1 H Lymph % (Auto) 12.1 L [place] % (Auto) 6.8 Eos % (Auto) 0.0 Baso % (Auto) 0.1 L Lymph # (Auto) 0.84 L [place] # (Auto) 0.5 Eos # (Auto) 0.0 Baso # (Auto) 0.0 Abs Immat Gran (auto) 0.06 H Absolute Neuts (auto) 5.6 Absolute Nucleated RBC 0.000 Band Neutrophils % Not Reportable Nucleated RBC % 0.0 Platelet Estimate Adequate Polychromasia 1+ Hypochromasia 1+ Basophilic Stippling 1+ Anisocytosis 1+ Ovalocytes Schistocytes None seen Sodium 138 Potassium 4.3 Chloride 101 Carbon Dioxide 27 Anion Gap 10 BUN 33 H Creatinine 3.51 H Estim Creat Clear Calc 23 Estimated GFR 13 L Glucose 154 H POC Capillary Glucose 122 H 117 H Calcium 8.8 Total Bilirubin 0.2 Direct Bilirubin AST 20 ALT 10 Alkaline Phosphatase 97 Total Protein 6.3 Albumin 3.5 Quality VTE Prophylaxis VTE prophylaxis: mechanical ordered
[2025-04-14] MEDS: PANTOPRAZOLE 40 MG TABLET PO ×2 (09:03→20:51)
[2025-04-14] MEDS: ESCITALOPRAM OXALATE 10 MG TABLET 20 MG PO (09:03)
[2025-04-14] MEDS: GABAPENTIN 100 MG CAPSULE PO ×2 (09:03→16:56)
[2025-04-14] MEDS: FERROUS SULFATE 325 MG TABLET DR BY MOUTH (09:04)
[2025-04-14] MEDS: DOCUSATE SODIUM 100 MG CAPSULE PO ×2 (09:04→16:56)
--- NOTE | 2025-04-14 10:32 | P.PNNP_ITS ---
Progress Note: A&P Assessment and Plan (1) End stage renal disease: Code(s): N18.6 - End stage renal disease Status: Chronic Assessment and Plan: * HD yesterday * continue outpatient schedule of Mondays, Wednesdays, and Fridays * follow electrolytes, volume status, and clearance (2) Volume overload: Code(s): E87.70 - Fluid overload, unspecified Status: Acute Assessment and Plan: * resolving * admission CXR with cardiomegaly and pulmonary edema * presumably precipitated by missed dialysis treatment prior to admission * clinically better s/p aggressive ultrafiltration/fluid removal with dialysis * continue current therapy/interventions (3) Anemia: Qualifiers: Anemia type: due to chronic kidney disease Chronic kidney disease stage: on chronic dialysis Qualified Code(s): N18.6 - End stage renal disease; D63.1 - Anemia in chronic kidney disease; Z99.2 - Dependence on renal dialysis Code(s): D64.9 - Anemia, unspecified Status: Acute Assessment and Plan: * stable if not improving * partly due to ESRD * however, guaiac positive stool noted * GI recommendations noted * s/p EGD on 04/11: only mild gastritis noted * H/H relatively stable * no evidence of iron deficiency by anemia studies * high dose Epogen with dialysis * follow trend of H/H (4) UTI (urinary tract infection): Code(s): N39.0 - Urinary tract infection, site not specified Status: Acute Assessment and Plan: * admission UA suggestive * urine culture with E.coli * on antibiotics (5) HTN (hypertension): Qualifiers: Hypertension type: unspecified Qualified Code(s): I10 - Essential (primary) hypertension Code(s): I10 - Essential (primary) hypertension Status: Chronic Assessment and Plan: * reasonable control * off antihypertensives at this time * on midodrine for dialysis purposes (6) Chronic respiratory failure with hypoxia: Code(s): J96.11 - Chronic respiratory failure with hypoxia Status: Chronic Assessment and Plan: * multifactorial: * COPD * SHELDON * OHS * CHF * pulmonary edema * on chronic supplemental oxygen * [facility] * continue supportive therapy (7) Bipolar 1 disorder: Code(s): F31.9 - Bipolar disorder, unspecified Status: Chronic Assessment and Plan: * continue Seroquel (8) Left renal mass: Code(s): N28.89 - Other specified disorders of kidney and ureter Status: Chronic Assessment and Plan: * follows with Urology as an outpatient (concern is for malignancy) * per review of outside records, deemed to be a poor surgical candidate Will continue to follow. L Subjective Date/time seen: 04/14/25 10:32 Interval history: Follow-up for end stage renal disease on hemodialysis. Tolerated dialysis treatment yesterday without any issues or problems; overall, feels reasonably well; no apparent distress voiced and no acute complaints to report at the time of my visit; no events overnight or earlier this morning. Exam 2 Narrative: General: large but WD/WN female in NAD Heart: normal S1 and S2; no rub Lungs: clear anteriorly; diminished at bases Abdomen: obese but soft, nontender, nondistended, + bowel sounds Extremities: no cyanosis or clubbing; no edema Skin: warm and intact Objective Data Vital Signs Vital Signs: Vital Signs Temp Pulse Resp BP Pulse Ox O2 Del Method O2 Flow Rate 04/14/25 09:00 Room Air 04/14/25 07:34 68 20 04/14/25 07:24 71 20 04/14/25 07:24 98 Nasal Cannula 3 04/14/25 04:33 97 F L 67 20 112/44 L 98 04/14/25 02:05 68 24 H 04/14/25 01:54 66 24 H 04/14/25 00:45 77 24 H 96 BiPAP 04/13/25 21:41 97 F L 73 20 124/44 L 100 04/13/25 20:16 68 20 04/13/25 20:10 98 Nasal Cannula 3 04/13/25 20:05 67 20 04/13/25 20:00 73 20 100 Nasal Cannula 3 04/13/25 17:49 98.4 F 70 18 125/56 L 100 04/13/25 17:45 73 117/48 L 04/13/25 17:30 73 104/46 L 04/13/25 17:15 66 117/55 L 04/13/25 17:00 68 117/41 L 04/13/25 16:45 65 137/58 L 04/13/25 16:37 70 109/46 L 04/13/25 16:24 64 121/52 L 04/13/25 16:15 60 129/51 L 04/13/25 16:00 71 119/57 L 04/13/25 15:45 69 122/57 L 04/13/25 15:30 70 131/57 L 04/13/25 15:15 72 130/52 L 04/13/25 15:00 73 128/57 L 04/13/25 14:45 70 133/63 04/13/25 14:42 68 20 04/13/25 14:34 67 20 04/13/25 14:30 72 121/61 04/13/25 14:15 65 144/61 H 04/13/25 13:57 97.2 F L 77 18 131/38 L 100 04/13/25 13:56 67 142/58 H 04/13/25 13:56 3 04/13/25 13:46 97.7 F 67 18 134/48 L 100 Intake/Output Intake/Output: Intake & Output 04/11/25 04/12/25 04/13/25 04/14/25 23:59 23:59 23:59 23:59 Intake Total 1090 1760 1670 350 Output Total 4800 250 3400 Balance -3710 1510 -1730 350 Meds/Results Medications: Active Medications Generic Name Dose Route Start Last Admin Trade Name Freq PRN Reason Stop Dose Admin Acetaminophen 650 mg 04/06/25 17:25 Acetaminophen 325 Mg Tablet PO Q4H PRN Mild Pain (1-3) or Fever Hydrocodone Bitart/Acetaminophen 1 tab 04/06/25 17:25 04/14/25 09:04 Hydrocodone/Acetaminophen (*Crx) 5-325 Mg Tablet PO 1 tab Q4H PRN Administration Moderate Pain (4-6) Albuterol/Ipratropium 3 ml 04/06/25 14:00 04/14/25 13:12 Ipratropium 0.5 Mg/Albuterol Sulfate 2.5 Mg Ampul.Neb 3 Ml INHALATION 3 ml Q6HRT MARLEEN Administration Atorvastatin Calcium 40 mg 04/06/25 21:00 04/13/25 20:30 Atorvastatin 40 Mg Tablet PO 40 mg QHS MARLEEN Administration Dextrose 12.5 gm 04/07/25 10:55 Dextrose 50% 25 Gm/50 Ml Syringe IV PUSH PRN PRN Hypoglycemia Protocol Diphenhydramine HCl 50 mg 04/13/25 14:48 04/14/25 04:10 Diphenhydramine Hcl Cap 25 Mg Capsule PO 50 mg Q6H PRN Administration Itching Docusate Sodium 100 mg 04/07/25 09:00 04/14/25 09:04 Docusate Sodium 100 Mg Capsule PO 100 mg BID MARLEEN Administration Escitalopram Oxalate 20 mg 04/12/25 09:00 04/14/25 09:03 Escitalopram Oxalate 10 Mg Tablet PO 20 mg DAILY MARLEEN Administration Ferrous Sulfate 325 mg 04/07/25 09:00 04/14/25 09:04 Ferrous Sulfate [address] BY MOUTH 325 mg DAILY MARLEEN Administration Gabapentin 100 mg 04/07/25 09:00 04/14/25 09:03 Gabapentin 100 Mg Capsule PO 100 mg BID MARLEEN Administration Glucose 15 gm 04/07/25 10:55 Glucose Oral Gel 15 Gm Of Glucse In 37.5 Gm Tube PO PRN PRN Hypoglycemia Protocol Hydroxyzine HCl 25 mg 04/07/25 04:05 04/14/25 12:15 Hydroxyzine Hcl 25 Mg Tablet PO 25 mg TID MARLEEN Administration Dextrose 1,000 mls @ 100 mls/hr 04/07/25 10:55 Dextrose 5% 1,000 Ml IVPB PRN PRN Hypoglycemia Protocol Albumin Human 50 mls @ 999 mls/hr 04/08/25 09:28 Albutein IVPB 05/08/25 09:27 Q10M PRN HYPOTENSION Meropenem 500 mg/ Sodium 100 mls @ 200 mls/hr 04/10/25 15:00 04/13/25 18:42 Chloride IVPB 04/16/25 15:29 Infused Q24H MARLEEN Infusion Insulin Aspart 2 - 5 units 04/07/25 12:00 04/14/25 12:25 Insulin Aspart (*Bkc) 100 Units/Ml SUB-Q Not Given TIDWM [facility] Protocol Insulin Aspart 1 - 2 units 04/07/25 21:00 04/13/25 21:49 Insulin Aspart (*Bkc) 100 Units/Ml SUB-Q Not Given HS [facility] Protocol Levetiracetam 500 mg 04/07/25 03:25 04/14/25 09:03 Levetiracetam 500 Mg Tablet PO 500 mg Q12HR MARLEEN Administration Midodrine 10 mg 04/07/25 09:51 04/13/25 16:50 Midodrine Hcl 10 Mg Tablet PO 10 mg PRN PRN Administration half hour before dialysis and then 2 hours into dialysis Ondansetron HCl 4 mg 04/06/25 17:25 Ondansetron Inj 4 Mg/2 Ml Vial IV PUSH Q6H PRN Nausea And Vomiting Oxcarbazepine 150 mg 04/07/25 03:25 04/14/25 09:04 Oxcarbazepine 150 Mg Tablet PO 150 mg Q12HR MARLEEN Administration Pantoprazole Sodium 40 mg 04/11/25 21:00 04/14/25 09:03 Pantoprazole 40 Mg Tablet PO 40 mg Q12HR MARLEEN Administration Quetiapine Fumarate 50 mg 04/07/25 21:00 04/13/25 23:09 Quetiapine Fumarate 25 Mg Tablet PO 50 mg HS MARLEEN Administration Trazodone HCl 50 mg 04/06/25 21:00 04/13/25 23:10 Trazodone Hcl 50 Mg Tablet PO 50 mg HS MARLEEN Administration Radiology Results: ITS Impressions Chest X-Ray 04/06/25 12:18 Impression: 1: Cardiomegaly with pulmonary edema. Venous Doppler Study 04/07/25 18:31 IMPRESSION: Patent bilateral lower extremity veins. No evidence of deep venous thrombosis. Abdomen Ultrasound 04/08/25 23:15 IMPRESSION: Limited evaluation. The pancreas, spleen, and left kidney are poorly visualized. Limited parenchymal evaluation of the liver, with no surface nodularity to suggest cirrhosis. Normal size gallbladder, likely containing sludge and stones. Labs Labs: Laboratory Tests 04/14/25 05:06 04/14/25 05:06 Calcium 8.8 Total Bilirubin 0.2 AST 20 ALT 10 Alkaline Phosphatase 97 Total Protein 6.3 Albumin 3.5
[2025-04-14] MEDS: MEROPENEM 500 MG in SODIUM CHLORIDE 0.9% IV 100 ML 200 ML IVPB (15:40)
[2025-04-14] MEDS: ATORVASTATIN 40 MG TABLET PO (20:51)
[2025-04-15] VITALS (15 sets, daily range): BP systolic 108–160; BP diastolic 50–65; PULSE 70–77; RESP 20–27; TEMP 36.1–36.6; O2SAT 90–100
[2025-04-15] MEDS: IPRATROPIUM 0.5 MG/ALBUTEROL SULFATE 2.5 MG AMPUL.NEB 3 ML INHALATION ×4 (02:28→20:46)
[2025-04-15] MEDS: diphenhydrAMINE HCl CAP 25 MG CAPSULE 50 MG PO ×3 (03:26→17:55)
[2025-04-15] MEDS: HYDROcodone/acetaminophen (*CRX) 5-325 MG TABLET 1 TAB PO ×3 (03:26→20:34)
[2025-04-15 05:32] LABS: Hematocrit 28.1 % (37.0-47.0); Hemoglobin 8.1 g/dL (12.0-15.0); Immature Granulocyte Percent A 0.8 % (0-0.5); Lymphocytes Absolute Auto 0.84 K/mm3 (0.9-3.2); Mean Corpuscular HGB Conc 28.8 g/dl (32-36); Mean Corpuscular Hemoglobin 28.0 pg (26-34); Mean Corpuscular Volume 97.2 fl (80-100); Nucleated Red Blood Cells Absolute Auto 0.000 K/mm3 (0.0-0.012); Nucleated Red Blood Cells Perc 0.0 % (0.0-0.2); Platelet Count Result 153 k/mm3 (150-375); Red Blood Count 2.89 M/mm3 (4.2-5.4); White Blood Count 6.0 K/mm3 (4.5-10.0)
[2025-04-15 05:51] LABS: Alanine Aminotransferase 9 U/L (6-35); Albumin Level 3.4 g/dL (3.5-5.1); Alkaline Phosphatase 88 U/L (38-126); Anion Gap 9 mmol/L (4-12); Aspartate Amino Transferase 19 U/L (14-36); Bilirubin,Total 0.3 mg/dL (0.2-1.3); Blood Urea Nitrogen 45 mg/dL (7-17); Calcium 8.9 mg/dL (8.4-10.2); Carbon Dioxide 25 mmol/L (22-30); Chloride 97 mmol/L (98-107); Estimated CRCL calculation 17 ml/min; Estimated Glomerular Filt Rate 9; Glucose 146 mg/dL (65-110); Potassium 4.5 mmol/L (3.4-5.0); Sodium 131 mmol/L (137-145); Total Protein 6.1 g/dL (6.3-8.2)
[2025-04-15 06:02] LABS: Anisocytosis 1+; Hypochromasia 1+
[2025-04-15 06:03] LABS: Microcytosis 1+ (NORMAL); Schistocytes None Seen; Tear Drop Cells 1+
--- NOTE | 2025-04-15 06:44 | P.PNIM_ITS ---
Progress Note: A&P Assessment and Plan (1) Occult blood in stools: Code(s): R19.5 - Other fecal abnormalities Status: Acute Assessment and Plan: * Occult stool positive and anemia * Monitor serum electrolytes, CBC, hemoglobin/hematocrit q.8 hours. If hemoglobin drops below 7 transfuse packed red blood cells * Monitor for bloody bowel movements,chest pain,SOB or dizziness/lightheadedness * PO Pantoprazole BID * DVT Px: SCDs * GI consult * EGD: gastritis - ok to resume diet. * Discussed patient & familial colon cancer history with Dr. Pena. Recommends outpatient colonoscopy. * Signed off. * US liver: unremarkable * Echo obtained, LVEF 65-70% no valvular abnormalities (2) UTI (urinary tract infection): Code(s): N39.0 - Urinary tract infection, site not specified Status: Acute Assessment and Plan: * Currenlty Denies dysuria and burning. * UA (04/06) concerning for infection * Prelim UC: gram negative bacilli * Prior ESBL on 01/12/25 * webber catheter discontinued, discussed with nephrology and in agreement with removal * Two more additional doses of IV meropenem including today (3) CHF (congestive heart failure): Qualifiers: Heart failure chronicity: unspecified Heart failure type: unspecified Qualified Code(s): I50.9 - Heart failure, unspecified Code(s): I50.9 - Heart failure, unspecified Status: Acute Assessment and Plan: * Current medications: IV lasix 40 mg BID discontinued on 04/10 as patient does not produce much urine, discussed with nephrology Dr. Calix * BNP: 5050 * Chest XR: Cardiomegaly with pulmonary edema. * Remains on baseline 3L NC * Echo 65-70% with no valvular abnormalities * Nephrology following, continue dialysis for fluid overload * Monitor vital signs, I&Os, BUN/creatinine, daily weights, neuro status and patient is a fall risk * Monitor serum electrolytes, Keep serum Potassium>4 and serum Magnesium>2 and CBC * Does not appear to be fluid overloaded on exam (4) Anemia: Qualifiers: Anemia type: due to chronic kidney disease Chronic kidney disease stage: on chronic dialysis Qualified Code(s): N18.6 - End stage renal disease; D63.1 - Anemia in chronic kidney disease; Z99.2 - Dependence on renal dialysis Code(s): D64.9 - Anemia, unspecified Status: Acute Assessment and Plan: * Hgb 9.2 on admission, and currently staying stable in the 7-8 range * Iron WNL * Isat 46, EPO per Nephrology * EGD negative for source of bleeding. * GI recommended outpatient colonoscopy. * 04/14: Hgb 8.1 (5) Hyperkalemia: Code(s): E87.5 - Hyperkalemia Status: Acute Assessment and Plan: * Hyperkalemia on admission, received dialysis and has since resolved. (6) End stage renal disease: Code(s): N18.6 - End stage renal disease Status: Chronic Assessment and Plan: * HD dialysis on Wednesday * Nephrology following, on dialysis * Endorses full body itching despite hydroxyzine - will start Benadryl prn * 04/15: Cr 4.66 * Will look to discharge after dialysis tomorrow (7) HTN (hypertension): Qualifiers: Hypertension type: unspecified Qualified Code(s): I10 - Essential (primary) hypertension Code(s): I10 - Essential (primary) hypertension Status: Chronic Assessment and Plan: * Not on antihypertensives * Requiring midodrine for hypotension during dialysis which was increased by nephrology to 10 mg prior to treatment and 10 mg 2 hours into treatment as needed * Stable (8) COPD (chronic obstructive pulmonary disease): Qualifiers: COPD type: unspecified COPD Qualified Code(s): J44.9 - Chronic obstructive pulmonary disease, unspecified Code(s): J44.9 - Chronic obstructive pulmonary disease, unspecified Status: Acute Assessment and Plan: * DuoNebs (9) Seizures: Code(s): R56.9 - Unspecified convulsions Status: Acute Assessment and Plan: * Continue Keppra 500 mg BID (10) Bipolar 1 disorder: Code(s): F31.9 - Bipolar disorder, unspecified Status: Chronic Assessment and Plan: * Continue Seroquel (11) Anxiety: Code(s): F41.9 - Anxiety disorder, unspecified Status: Acute Assessment and Plan: * continue escitalopram Plan Code status: Full Code Diet: Diabetic & Renal Dialysis Diet GI Prophylaxis: PO Pantoprazole DVT Prophylaxis: SCDs Subjective Date/time seen: 04/15/25 06:44 Interval history: 65 year old female with past medical history of afib, diastolic heart failure, COPD, ESRD on dialysis, CHF, HTN, bipolar, SHELDON, and seizure disorder presents to the hospital for shortness of breath. 04/15/2025 Patient resting comfortably in bed. Denies any chest pain, n/v, abd pain, or SOB at this time. Will continue with IV meropenem until tomorrow. Patient undergoes dialysis Wednesday/Wednesday/Wednesday, so we will look to discharge tomorrow after dialysis and receiving the a last dose of IV meropenem. Patient is amenable to this plan, no other comments or concerns at this time. Review of Systems Review of Systems: 12 systems were reviewed and are negativ e except for as per HPI. All systems reviewed & are unremarkable except as noted in HPI and below Exam Narrative: General: female in no acute respiratory distress who is nontoxic appearing, l [place] semi recumbent in bed. HEENT: Normocephalic. Atraumatic. Extraocular movement intact. Sclera clear and anicteric. No facial asymmetry. Chest: Lungs are clear to auscultation bilaterally. No wheezes or crackles. CV: Heart was regular rate and rhythm. Abd: Abdomen was soft. Nontender. Nondistended. Positive bowel sounds. Ext: No clubbing, cyanosis, or edema. DP pulses bilaterally. Neuro: Patient is alert and oriented x3. Speech is clear. Objective Data Vital Signs Vital Signs: Vital Signs - 24 hr 04/14/25 07:24 04/14/25 07:24 04/14/25 07:34 Temperature Pulse Rate 71 68 Respiratory Rate 20 20 Blood Pressure Pulse Oximetry 98 Oxygen Delivery Nasal Cannula Oxygen Flow Rate 3 04/14/25 09:00 04/14/25 13:13 04/14/25 13:24 Temperature Pulse Rate 73 72 Respiratory Rate 22 H 20 Blood Pressure Pulse Oximetry Oxygen Delivery Room Air Oxygen Flow Rate 04/14/25 14:00 04/14/25 19:55 04/14/25 20:00 Temperature 97 F L 97.5 F L Pulse Rate 73 72 69 Respiratory Rate 16 18 20 Blood Pressure 126/33 L 127/49 L Pulse Oximetry 100 100 98 Oxygen Delivery Nasal Cannula Oxygen Flow Rate 2 04/14/25 20:38 04/14/25 20:38 04/14/25 20:48 Temperature Pulse Rate 70 69 Respiratory Rate 20 20 Blood Pressure Pulse Oximetry 98 Oxygen Delivery Nasal Cannula Oxygen Flow Rate 3 04/15/25 00:22 04/15/25 02:28 04/15/25 02:36 Temperature Pulse Rate 76 70 70 Respiratory Rate 25 H 27 H 25 H Blood Pressure Pulse Oximetry 90 Oxygen Delivery BiPAP Oxygen Flow Rate 04/15/25 02:48 04/15/25 04:17 Temperature 97.9 F Pulse Rate 70 77 Respiratory Rate 27 H 22 H Blood Pressure 123/50 L Pulse Oximetry 92 100 Oxygen Delivery BiPAP Oxygen Flow Rate Intake/Output Intake/Output: Intake & Output 04/12/25 04/13/25 04/14/25 04/15/25 23:59 23:59 23:59 23:59 Intake Total 1760 1670 1320 250 Output Total 250 3400 Balance 1510 -1730 1320 250 Meds/Results Medications: Active Medications Generic Name Dose Route Start Last Admin Trade Name Freq PRN Reason Stop Dose Admin Acetaminophen 650 mg 04/06/25 17:25 Acetaminophen 325 Mg Tablet PO Q4H PRN Mild Pain (1-3) or Fever Hydrocodone Bitart/Acetaminophen 1 tab 04/06/25 17:25 04/15/25 03:26 Hydrocodone/Acetaminophen (*Crx) 5-325 Mg Tablet PO 1 tab Q4H PRN Administration Moderate Pain (4-6) Albuterol/Ipratropium 3 ml 04/06/25 14:00 04/15/25 02:28 Ipratropium 0.5 Mg/Albuterol Sulfate 2.5 Mg Ampul.Neb 3 Ml INHALATION 3 ml Q6HRT MARLEEN Administration Atorvastatin Calcium 40 mg 04/06/25 21:00 04/14/25 20:51 Atorvastatin 40 Mg Tablet PO 40 mg QHS MARLEEN Administration Dextrose 12.5 gm 04/07/25 10:55 Dextrose 50% 25 Gm/50 Ml Syringe IV PUSH PRN PRN Hypoglycemia Protocol Diphenhydramine HCl 50 mg 04/13/25 14:48 04/15/25 03:26 Diphenhydramine Hcl Cap 25 Mg Capsule PO 50 mg Q6H PRN Administration Itching Docusate Sodium 100 mg 04/07/25 09:00 04/14/25 16:56 Docusate Sodium 100 Mg Capsule PO 100 mg BID MARLEEN Administration Escitalopram Oxalate 20 mg 04/12/25 09:00 04/14/25 09:03 Escitalopram Oxalate 10 Mg Tablet PO 20 mg DAILY MARLEEN Administration Ferrous Sulfate 325 mg 04/07/25 09:00 04/14/25 09:04 Ferrous Sulfate [address] BY MOUTH 325 mg DAILY MARLEEN Administration Gabapentin 100 mg 04/07/25 09:00 04/14/25 16:56 Gabapentin 100 Mg Capsule PO 100 mg BID MARLEEN Administration Glucose 15 gm 04/07/25 10:55 Glucose Oral Gel 15 Gm Of Glucse In 37.5 Gm Tube PO PRN PRN Hypoglycemia Protocol Hydroxyzine HCl 25 mg 04/07/25 04:05 04/14/25 16:57 Hydroxyzine Hcl 25 Mg Tablet PO 25 mg TID MARLEEN Administration Dextrose 1,000 mls @ 100 mls/hr 04/07/25 10:55 Dextrose 5% 1,000 Ml IVPB PRN PRN Hypoglycemia Protocol Albumin Human 50 mls @ 999 mls/hr 04/08/25 09:28 Albutein IVPB 05/08/25 09:27 Q10M PRN HYPOTENSION Meropenem 500 mg/ Sodium 100 mls @ 200 mls/hr 04/10/25 15:00 04/14/25 16:10 Chloride IVPB 04/16/25 15:29 Infused Q24H MARLEEN Infusion Insulin Aspart 2 - 5 units 04/07/25 12:00 04/14/25 17:12 Insulin Aspart (*Bkc) 100 Units/Ml SUB-Q Not Given TIDWM [facility] Protocol Insulin Aspart 1 - 2 units 04/07/25 21:00 04/14/25 21:00 Insulin Aspart (*Bkc) 100 Units/Ml SUB-Q Not Given HS [facility] Protocol Levetiracetam 500 mg 04/07/25 03:25 04/14/25 20:50 Levetiracetam 500 Mg Tablet PO 500 mg Q12HR MARLEEN Administration Midodrine 10 mg 04/07/25 09:51 04/13/25 16:50 Midodrine Hcl 10 Mg Tablet PO 10 mg PRN PRN Administration half hour before dialysis and then 2 hours into dialysis Ondansetron HCl 4 mg 04/06/25 17:25 Ondansetron Inj 4 Mg/2 Ml Vial IV PUSH Q6H PRN Nausea And Vomiting Oxcarbazepine 150 mg 04/07/25 03:25 04/14/25 20:51 Oxcarbazepine 150 Mg Tablet PO 150 mg Q12HR MARLEEN Administration Pantoprazole Sodium 40 mg 04/11/25 21:00 04/14/25 20:51 Pantoprazole 40 Mg Tablet PO 40 mg Q12HR MARLEEN Administration Quetiapine Fumarate 50 mg 04/07/25 21:00 04/14/25 20:51 Quetiapine Fumarate 25 Mg Tablet PO 50 mg HS MARLEEN Administration Trazodone HCl 50 mg 04/06/25 21:00 04/14/25 20:51 Trazodone Hcl 50 Mg Tablet PO 50 mg HS MARLEEN Administration Radiology Results: ITS Impressions Chest X-Ray 04/06/25 12:18 Impression: 1: Cardiomegaly with pulmonary edema. Venous Doppler Study 04/07/25 18:31 IMPRESSION: Patent bilateral lower extremity veins. No evidence of deep venous thrombosis. Abdomen Ultrasound 04/08/25 23:15 IMPRESSION: Limited evaluation. The pancreas, spleen, and left kidney are poorly visualized. Limited parenchymal evaluation of the liver, with no surface nodularity to suggest cirrhosis. Normal size gallbladder, likely containing sludge and stones. Labs Labs: Laboratory Results - last 24 hr 04/14/25 04/14/25 04/14/25 07:37 12:13 16:49 WBC RBC Hgb Hct MCV MCH MCHC RDW Plt Count MPV Immature Gran % (Auto) Neut % (Auto) Lymph % (Auto) [place] % (Auto) Eos % (Auto) Baso % (Auto) Lymph # (Auto) [place] # (Auto) Eos # (Auto) Baso # (Auto) Abs Immat Gran (auto) Absolute Neuts (auto) Absolute Nucleated RBC Band Neutrophils % Nucleated RBC % Platelet Estimate Hypochromasia Anisocytosis Microcytosis Tear Drop Cells Schistocytes Sodium Potassium Chloride Carbon Dioxide Anion Gap BUN Creatinine Estim Creat Clear Calc Estimated GFR Glucose POC Capillary Glucose 121 H 129 H 119 H Calcium Total Bilirubin AST ALT Alkaline Phosphatase Total Protein Albumin 04/15/25 04:52 WBC 6.0 RBC 2.89 L Hgb 8.1 L Hct 28.1 L MCV 97.2 MCH 28.0 MCHC 28.8 L RDW 16.2 H Plt Count 153 MPV 9.6 Immature Gran % (Auto) 0.8 H Neut % (Auto) 78.7 H Lymph % (Auto) 14.1 L [place] % (Auto) 6.2 Eos % (Auto) 0.0 Baso % (Auto) 0.2 Lymph # (Auto) 0.84 L [place] # (Auto) 0.4 Eos # (Auto) 0.0 Baso # (Auto) 0.0 Abs Immat Gran (auto) 0.05 H Absolute Neuts (auto) 4.7 Absolute Nucleated RBC 0.000 Band Neutrophils % Not Reportable Nucleated RBC % 0.0 Platelet Estimate Adequate Hypochromasia 1+ Anisocytosis 1+ Microcytosis 1+ Tear Drop Cells 1+ Schistocytes None seen Sodium 131 L Potassium 4.5 Chloride 97 L Carbon Dioxide 25 Anion Gap 9 BUN 45 H D Creatinine 4.66 H Estim Creat Clear Calc 17 Estimated GFR 9 L Glucose 146 H POC Capillary Glucose Calcium 8.9 Total Bilirubin 0.3 AST 19 ALT 9 Alkaline Phosphatase 88 Total Protein 6.1 L Albumin 3.4 L Quality VTE Prophylaxis VTE prophylaxis: mechanical ordered
[2025-04-15] MEDS: DOCUSATE SODIUM 100 MG CAPSULE PO ×2 (08:26→17:05)
[2025-04-15] MEDS: ESCITALOPRAM OXALATE 10 MG TABLET 20 MG PO (08:26)
[2025-04-15] MEDS: GABAPENTIN 100 MG CAPSULE PO ×2 (08:27→17:05)
[2025-04-15] MEDS: FERROUS SULFATE 325 MG TABLET DR BY MOUTH (08:27)
[2025-04-15] MEDS: PANTOPRAZOLE 40 MG TABLET PO ×2 (08:27→20:27)
--- NOTE | 2025-04-15 10:20 | P.PNNP_ITS ---
Progress Note: A&P Assessment and Plan (1) End stage renal disease: Code(s): N18.6 - End stage renal disease Status: Chronic Assessment and Plan: * HD tomorrow * continue outpatient schedule of Mondays, Wednesdays, and Fridays * follow electrolytes, volume status, and clearance (2) Volume overload: Code(s): E87.70 - Fluid overload, unspecified Status: Acute Assessment and Plan: * resolving (if not resolved) * admission CXR with cardiomegaly and pulmonary edema * presumably precipitated by missed dialysis treatment prior to admission * clinically better s/p aggressive ultrafiltration/fluid removal with dialysis * continue current therapy/interventions (3) Anemia: Qualifiers: Anemia type: due to chronic kidney disease Chronic kidney disease stage: on chronic dialysis Qualified Code(s): N18.6 - End stage renal disease; D63.1 - Anemia in chronic kidney disease; Z99.2 - Dependence on renal dialysis Code(s): D64.9 - Anemia, unspecified Status: Acute Assessment and Plan: * stable if not improving * partly due to ESRD * however, guaiac positive stool noted * GI recommendations noted * s/p EGD on 04/11: only mild gastritis noted * H/H relatively stable * no evidence of iron deficiency by anemia studies * high dose Epogen with dialysis * follow trend of H/H (4) UTI (urinary tract infection): Code(s): N39.0 - Urinary tract infection, site not specified Status: Acute Assessment and Plan: * admission UA suggestive * urine culture with E.coli * on antibiotics - last dose tomorrow (04/16) (5) HTN (hypertension): Qualifiers: Hypertension type: unspecified Qualified Code(s): I10 - Essential (primary) hypertension Code(s): I10 - Essential (primary) hypertension Status: Chronic Assessment and Plan: * reasonable control * off antihypertensives at this time * on midodrine for dialysis purposes (6) Chronic respiratory failure with hypoxia: Code(s): J96.11 - Chronic respiratory failure with hypoxia Status: Chronic Assessment and Plan: * multifactorial: * COPD * SHELDON * OHS * CHF * pulmonary edema * on chronic supplemental oxygen * [facility] * continue supportive therapy (7) Bipolar 1 disorder: Code(s): F31.9 - Bipolar disorder, unspecified Status: Chronic Assessment and Plan: * continue Seroquel (8) Left renal mass: Code(s): N28.89 - Other specified disorders of kidney and ureter Status: Chronic Assessment and Plan: * follows with Urology as an outpatient (concern is for malignancy) * per review of outside records, deemed to be a poor surgical candidate Will continue to follow. L Subjective Date/time seen: 04/15/25 10:20 Interval history: Follow-up for end stage renal disease on hemodialysis. No new issues or events overnight or earlier this morning; no apparent distress voiced at the time of my visit; overall, feels reasonably well; noted plan to complete IV antibiotic therapy (last dose tomorrow) prior to discharge. Exam 2 Narrative: General: large but WD/WN female in NAD Heart: normal S1 and S2; no rub Lungs: clear anteriorly; diminished at bases Abdomen: obese but soft, nontender, nondistended, + bowel sounds Extremities: no cyanosis or clubbing; no edema Skin: no rash Objective Data Vital Signs Vital Signs: Vital Signs Temp Pulse Resp BP Pulse Ox O2 Del Method O2 Flow Rate 04/15/25 08:00 99 Nasal Cannula 2 04/15/25 07:41 70 20 04/15/25 07:30 75 20 04/15/25 07:30 99 Nasal Cannula 3 04/15/25 04:17 97.9 F 77 22 H 123/50 L 100 04/15/25 02:48 70 27 H 92 BiPAP 04/15/25 02:36 70 25 H 04/15/25 02:28 70 27 H 04/15/25 00:22 76 25 H 90 BiPAP 04/14/25 20:48 69 20 04/14/25 20:38 98 Nasal Cannula 3 04/14/25 20:38 70 20 04/14/25 20:00 69 20 98 Nasal Cannula 2 04/14/25 19:55 97.5 F L 72 18 127/49 L 100 04/14/25 14:00 97 F L 73 16 126/33 L 100 04/14/25 13:24 72 20 04/14/25 13:13 73 22 H Intake/Output Intake/Output: Intake & Output 04/12/25 04/13/25 04/14/25 04/15/25 23:59 23:59 23:59 23:59 Intake Total 1760 1670 1320 370 Output Total 250 3400 Balance 1510 -1730 1320 370 Meds/Results Medications: Active Medications Generic Name Dose Route Start Last Admin Trade Name Freq PRN Reason Stop Dose Admin Acetaminophen 650 mg 04/06/25 17:25 Acetaminophen 325 Mg Tablet PO Q4H PRN Mild Pain (1-3) or Fever Hydrocodone Bitart/Acetaminophen 1 tab 04/06/25 17:25 04/15/25 03:26 Hydrocodone/Acetaminophen (*Crx) 5-325 Mg Tablet PO 1 tab Q4H PRN Administration Moderate Pain (4-6) Albuterol/Ipratropium 3 ml 04/06/25 14:00 04/15/25 07:30 Ipratropium 0.5 Mg/Albuterol Sulfate 2.5 Mg Ampul.Neb 3 Ml INHALATION 3 ml Q6HRT MARLEEN Administration Atorvastatin Calcium 40 mg 04/06/25 21:00 04/14/25 20:51 Atorvastatin 40 Mg Tablet PO 40 mg QHS MARLEEN Administration Dextrose 12.5 gm 04/07/25 10:55 Dextrose 50% 25 Gm/50 Ml Syringe IV PUSH PRN PRN Hypoglycemia Protocol Diphenhydramine HCl 50 mg 04/13/25 14:48 04/15/25 03:26 Diphenhydramine Hcl Cap 25 Mg Capsule PO 50 mg Q6H PRN Administration Itching Docusate Sodium 100 mg 04/07/25 09:00 04/15/25 08:26 Docusate Sodium 100 Mg Capsule PO 100 mg BID MARLEEN Administration Escitalopram Oxalate 20 mg 04/12/25 09:00 04/15/25 08:26 Escitalopram Oxalate 10 Mg Tablet PO 20 mg DAILY MARLEEN Administration Ferrous Sulfate 325 mg 04/07/25 09:00 04/15/25 08:27 Ferrous Sulfate [address] BY MOUTH 325 mg DAILY MARLEEN Administration Gabapentin 100 mg 04/07/25 09:00 04/15/25 08:27 Gabapentin 100 Mg Capsule PO 100 mg BID MARLEEN Administration Glucose 15 gm 04/07/25 10:55 Glucose Oral Gel 15 Gm Of Glucse In 37.5 Gm Tube PO PRN PRN Hypoglycemia Protocol Hydroxyzine HCl 25 mg 04/07/25 04:05 04/15/25 08:27 Hydroxyzine Hcl 25 Mg Tablet PO 25 mg TID MARLEEN Administration Dextrose 1,000 mls @ 100 mls/hr 07/26/25 10:55 Dextrose 5% 1,000 Ml IVPB PRN PRN Hypoglycemia Protocol Albumin Human 50 mls @ 999 mls/hr 04/08/25 09:28 Albutein IVPB 05/08/25 09:27 Q10M PRN HYPOTENSION Meropenem 500 mg/ Sodium 100 mls @ 200 mls/hr 04/10/25 15:00 04/14/25 16:10 Chloride IVPB 04/16/25 15:29 Infused Q24H MARLEEN Infusion Insulin Aspart 2 - 5 units 04/07/25 12:00 04/15/25 08:25 Insulin Aspart (*Bkc) 100 Units/Ml SUB-Q Not Given TIDWM MARLEEN Protocol Insulin Aspart 1 - 2 units 04/07/25 21:00 04/14/25 21:00 Insulin Aspart (*Bkc) 100 Units/Ml SUB-Q Not Given HS MARLEEN Protocol Levetiracetam 500 mg 04/07/25 03:25 04/15/25 08:27 Levetiracetam 500 Mg Tablet PO 500 mg Q12HR MARLEEN Administration Midodrine 10 mg 04/07/25 09:51 04/13/25 16:50 Midodrine Hcl 10 Mg Tablet PO 10 mg PRN PRN Administration half hour before dialysis and then 2 hours into dialysis Ondansetron HCl 4 mg 04/06/25 17:25 Ondansetron Inj 4 Mg/2 Ml Vial IV PUSH Q6H PRN Nausea And Vomiting Oxcarbazepine 150 mg 04/07/25 03:25 04/15/25 08:27 Oxcarbazepine 150 Mg Tablet PO 150 mg Q12HR MARLEEN Administration Pantoprazole Sodium 40 mg 04/11/25 21:00 04/15/25 08:27 Pantoprazole 40 Mg Tablet PO 40 mg Q12HR MARLEEN Administration Quetiapine Fumarate 50 mg 04/07/25 21:00 04/14/25 20:51 Quetiapine Fumarate 25 Mg Tablet PO 50 mg HS MARLEEN Administration Trazodone HCl 50 mg 04/06/25 21:00 04/14/25 20:51 Trazodone Hcl 50 Mg Tablet PO 50 mg HS MARLEEN Administration Radiology Results: ITS Impressions Chest X-Ray 04/06/25 12:18 Impression: 1: Cardiomegaly with pulmonary edema. Venous Doppler Study 04/07/25 18:31 IMPRESSION: Patent bilateral lower extremity veins. No evidence of deep venous thrombosis. Abdomen Ultrasound 04/08/25 23:15 IMPRESSION: Limited evaluation. The pancreas, spleen, and left kidney are poorly visualized. Limited parenchymal evaluation of the liver, with no surface nodularity to suggest cirrhosis. Normal size gallbladder, likely containing sludge and stones. Labs Labs: Laboratory Tests 04/15/25 04:52 04/15/25 04:52 Calcium 8.9 Total Bilirubin 0.3 AST 19 ALT 9 Alkaline Phosphatase 88 Total Protein 6.1 L Albumin 3.4 L Microbiology 04/07/25 14:21 Blood Blood Culture - Final 04/07/25 14:19 Blood Blood Culture - Final
[2025-04-15] MEDS: MEROPENEM 500 MG in SODIUM CHLORIDE 0.9% IV 100 ML 200 ML IVPB (15:05)
[2025-04-15] MEDS: ATORVASTATIN 40 MG TABLET PO (20:26)
[2025-04-16] VITALS (28 sets, daily range): BP systolic 95–142; BP diastolic 34–75; PULSE 68–103; RESP 16–26; TEMP 36.1–37.1; O2SAT 90–100
[2025-04-16] MEDS: IPRATROPIUM 0.5 MG/ALBUTEROL SULFATE 2.5 MG AMPUL.NEB 3 ML INHALATION ×3 (02:01→13:49)
[2025-04-16 05:17] LABS: Hematocrit 27.1 % (37.0-47.0); Hemoglobin 7.9 g/dL (12.0-15.0); Immature Granulocyte Percent A 0.7 % (0-0.5); Lymphocytes Absolute Auto 0.69 K/mm3 (0.9-3.2); Mean Corpuscular HGB Conc 29.2 g/dl (32-36); Mean Corpuscular Hemoglobin 28.4 pg (26-34); Mean Corpuscular Volume 97.5 fl (80-100); Nucleated Red Blood Cells Absolute Auto 0.000 K/mm3 (0.0-0.012); Nucleated Red Blood Cells Perc 0.0 % (0.0-0.2); Platelet Count Result 142 k/mm3 (150-375); Red Blood Count 2.78 M/mm3 (4.2-5.4); White Blood Count 5.5 K/mm3 (4.5-10.0)
[2025-04-16 05:48] LABS: Alanine Aminotransferase 8 U/L (6-35); Albumin Level 3.4 g/dL (3.5-5.1); Alkaline Phosphatase 93 U/L (38-126); Anion Gap 11 mmol/L (4-12); Aspartate Amino Transferase 13 U/L (14-36); Bilirubin,Total 0.2 mg/dL (0.2-1.3); Blood Urea Nitrogen 55 mg/dL (7-17); Calcium 8.9 mg/dL (8.4-10.2); Carbon Dioxide 24 mmol/L (22-30); Chloride 100 mmol/L (98-107); Estimated CRCL calculation 14 ml/min; Estimated Glomerular Filt Rate 7; Glucose 135 mg/dL (65-110); Potassium 4.7 mmol/L (3.4-5.0); Sodium 135 mmol/L (137-145); Total Protein 6.1 g/dL (6.3-8.2)
[2025-04-16] MEDS: diphenhydrAMINE HCl CAP 25 MG CAPSULE 50 MG PO ×2 (06:58→12:28)
[2025-04-16] MEDS: HYDROcodone/acetaminophen (*CRX) 5-325 MG TABLET 1 TAB PO ×2 (06:59→12:26)
[2025-04-16] MEDS: MIDODRINE HCL 10 MG TABLET PO ×2 (07:57→10:48)
[2025-04-16] MEDS: EPOETIN ALFA-EPBX 20,000 UNITS/ML VIAL 20000 UNITS IV PUSH (09:20)
[2025-04-16] MEDS: SODIUM CHLORIDE 0.9% IV 1,000 ML 999 ML IV CONT (09:20)
--- NOTE | 2025-04-16 10:25 | P.PNNP_ITS ---
Progress Note: A&P Assessment and Plan (1) End stage renal disease: Code(s): N18.6 - End stage renal disease Status: Chronic Assessment and Plan: * HD today * continue outpatient schedule of Mondays, Wednesdays, and Fridays * follow electrolytes, volume status, and clearance (2) Volume overload: Code(s): E87.70 - Fluid overload, unspecified Status: Acute Assessment and Plan: * resolving (if not resolved) * admission CXR with cardiomegaly and pulmonary edema * presumably precipitated by missed dialysis treatment prior to admission * clinically better s/p aggressive ultrafiltration/fluid removal with dialysis * continue current therapy/interventions (3) Anemia: Qualifiers: Anemia type: due to chronic kidney disease Chronic kidney disease stage: on chronic dialysis Qualified Code(s): N18.6 - End stage renal disease; D63.1 - Anemia in chronic kidney disease; Z99.2 - Dependence on renal dialysis Code(s): D64.9 - Anemia, unspecified Status: Acute Assessment and Plan: * stable if not improving * partly due to ESRD * however, guaiac positive stool noted * GI recommendations noted * s/p EGD on 04/11: only mild gastritis noted * H/H relatively stable * no evidence of iron deficiency by anemia studies * high dose Epogen with dialysis * follow trend of H/H (4) UTI (urinary tract infection): Code(s): N39.0 - Urinary tract infection, site not specified Status: Acute Assessment and Plan: * admission UA suggestive * urine culture with E.coli * on antibiotics - last dose today (04/16) (5) HTN (hypertension): Qualifiers: Hypertension type: unspecified Qualified Code(s): I10 - Essential (primary) hypertension Code(s): I10 - Essential (primary) hypertension Status: Chronic Assessment and Plan: * reasonable control * off antihypertensives at this time * on midodrine for dialysis purposes (6) Chronic respiratory failure with hypoxia: Code(s): J96.11 - Chronic respiratory failure with hypoxia Status: Chronic Assessment and Plan: * multifactorial: * COPD * SHELDON * OHS * CHF * pulmonary edema * on chronic supplemental oxygen * on BiPAP at the [place] [facility] * continue supportive therapy (7) Bipolar 1 disorder: Code(s): F31.9 - Bipolar disorder, unspecified Status: Chronic Assessment and Plan: * continue Seroquel (8) Left renal mass: Code(s): N28.89 - Other specified disorders of kidney and ureter Status: Chronic Assessment and Plan: * follows with Urology as an outpatient (concern is for malignancy) * per review of outside records, deemed to be a poor surgical candidate Will continue to follow. L Subjective Date/time seen: 04/16/25 10:25 Interval history: Follow-up for end stage renal disease on hemodialysis. Tolerating dialysis treatment at the time of my visit (seen on HD at 10:15am); resting comfortably when seen; no other acute issues/events overnight or earlier this morning; no apparent distress noted. Exam 2 Narrative: General: large but WD/WN female in NAD Heart: normal S1 and S2; no rub Lungs: clear anteriorly; diminished at bases Abdomen: obese but soft, nontender, nondistended, + bowel sounds Extremities: no cyanosis or clubbing; no edema Skin: no nodules Objective Data Vital Signs Vital Signs: Vital Signs Temp Pulse Resp BP Pulse Ox O2 Del Method O2 Flow Rate 04/16/25 10:15 103 H 104/44 L 04/16/25 10:00 73 113/52 L 04/16/25 09:45 77 100/51 L 04/16/25 09:30 76 106/52 L 04/16/25 09:15 75 110/50 L 04/16/25 09:00 72 126/44 L 04/16/25 08:45 72 130/53 L 04/16/25 08:30 73 142/63 H 04/16/25 08:13 71 137/63 04/16/25 08:05 3 04/16/25 08:05 98.7 F 75 16 138/75 100 04/16/25 08:00 100 Nasal Cannula 2 04/16/25 07:33 71 20 04/16/25 07:17 78 20 04/16/25 07:17 78 20 98 Nasal Cannula 2 04/16/25 06:11 109/46 L 04/16/25 04:16 97.1 F L 68 20 94 04/16/25 02:10 69 26 H 90 BiPAP 04/16/25 02:06 77 20 04/16/25 02:01 77 20 04/15/25 21:13 97 F L 74 20 160/65 H 99 04/15/25 20:55 77 20 04/15/25 20:46 77 20 04/15/25 20:00 98 Nasal Cannula 2 04/15/25 13:56 97.9 F 70 20 108/50 L 99 04/15/25 13:25 76 20 04/15/25 13:16 72 20 Intake/Output Intake/Output: Intake & Output 04/13/25 04/14/25 04/15/25 04/16/25 23:59 23:59 23:59 23:59 Intake Total 1670 1320 610 680 Output Total 3400 2500 Balance -1730 1320 610 -1820 Meds/Results Medications: Active Medications Generic Name Dose Route Start Last Admin Trade Name Freq PRN Reason Stop Dose Admin Acetaminophen 650 mg 04/06/25 17:25 Acetaminophen 325 Mg Tablet PO Q4H PRN Mild Pain (1-3) or Fever Hydrocodone Bitart/Acetaminophen 1 tab 04/06/25 17:25 04/16/25 12:26 Hydrocodone/Acetaminophen (*Crx) 5-325 Mg Tablet PO 1 tab Q4H PRN Administration Moderate Pain (4-6) Albuterol/Ipratropium 3 ml 04/06/25 14:00 04/16/25 07:16 Ipratropium 0.5 Mg/Albuterol Sulfate 2.5 Mg Ampul.Neb 3 Ml INHALATION 3 ml Q6HRT MARLEEN Administration Atorvastatin Calcium 40 mg 04/06/25 21:00 04/15/25 20:26 Atorvastatin 40 Mg Tablet PO 40 mg QHS MARLEEN Administration Dextrose 12.5 gm 04/07/25 10:55 Dextrose 50% 25 Gm/50 Ml Syringe IV PUSH PRN PRN Hypoglycemia Protocol Diphenhydramine HCl 50 mg 04/13/25 14:48 04/16/25 12:28 Diphenhydramine Hcl Cap 25 Mg Capsule PO 50 mg Q6H PRN Administration Itching Docusate Sodium 100 mg 04/07/25 09:00 04/16/25 12:26 Docusate Sodium 100 Mg Capsule PO 100 mg BID MARLEEN Administration Escitalopram Oxalate 20 mg 04/12/25 09:00 04/16/25 12:24 Escitalopram Oxalate 10 Mg Tablet PO 20 mg DAILY MARLEEN Administration Ferrous Sulfate 325 mg 04/07/25 09:00 04/16/25 12:24 Ferrous Sulfate [address] BY MOUTH 325 mg DAILY MARLEEN Administration Gabapentin 100 mg 04/07/25 09:00 04/16/25 12:24 Gabapentin 100 Mg Capsule PO 100 mg BID MARLEEN Administration Glucose 15 gm 04/07/25 10:55 Glucose Oral Gel 15 Gm Of Glucse In 37.5 Gm Tube PO PRN PRN Hypoglycemia Protocol Hydroxyzine HCl 25 mg 04/07/25 04:05 04/16/25 12:26 Hydroxyzine Hcl 25 Mg Tablet PO 25 mg TID MARLEEN Administration Dextrose 1,000 mls @ 100 mls/hr 04/07/25 10:55 Dextrose 5% 1,000 Ml IVPB PRN PRN Hypoglycemia Protocol Albumin Human 50 mls @ 999 mls/hr 04/08/25 09:28 Albutein IVPB 05/08/25 09:27 Q10M PRN HYPOTENSION Meropenem 500 mg/ Sodium 100 mls @ 200 mls/hr 04/10/25 15:00 04/15/25 15:05 Chloride IVPB 04/16/25 15:29 200 mls/hr Q24H MARLEEN Administration Insulin Aspart 2 - 5 units 04/07/25 12:00 04/16/25 12:45 Insulin Aspart (*Bkc) 100 Units/Ml SUB-Q Not Given TIDWM MARLEEN Protocol Insulin Aspart 1 - 2 units 04/07/25 21:00 04/15/25 20:28 Insulin Aspart (*Bkc) 100 Units/Ml SUB-Q Not Given HS MARLEEN Protocol Levetiracetam 500 mg 04/07/25 03:25 04/16/25 12:25 Levetiracetam 500 Mg Tablet PO 500 mg Q12HR MARLEEN Administration Midodrine 10 mg 04/07/25 09:51 04/16/25 10:48 Midodrine Hcl 10 Mg Tablet PO 10 mg PRN PRN Administration half hour before dialysis and then 2 hours into dialysis Miscellaneous Information 1 each 04/16/25 00:01 Order Clarification XX 05/16/25 00:00 CLARIFY MARLEEN Ondansetron HCl 4 mg 04/06/25 17:25 Ondansetron Inj 4 Mg/2 Ml Vial IV PUSH Q6H PRN Nausea And Vomiting Oxcarbazepine 150 mg 04/07/25 03:25 04/16/25 12:25 Oxcarbazepine 150 Mg Tablet PO 150 mg Q12HR MARLEEN Administration Pantoprazole Sodium 40 mg 04/11/25 21:00 04/16/25 12:25 Pantoprazole 40 Mg Tablet PO 40 mg Q12HR MARLEEN Administration Quetiapine Fumarate 50 mg 04/07/25 21:00 04/15/25 20:26 Quetiapine Fumarate 25 Mg Tablet PO 50 mg HS MARLEEN Administration Trazodone HCl 50 mg 04/06/25 21:00 04/15/25 20:26 Trazodone Hcl 50 Mg Tablet PO 50 mg HS MARLEEN Administration Radiology Results: ITS Impressions Chest X-Ray 04/06/25 12:18 Impression: 1: Cardiomegaly with pulmonary edema. Venous Doppler Study 04/07/25 18:31 IMPRESSION: Patent bilateral lower extremity veins. No evidence of deep venous thrombosis. Abdomen Ultrasound 04/08/25 23:15 IMPRESSION: Limited evaluation. The pancreas, spleen, and left kidney are poorly visualized. Limited parenchymal evaluation of the liver, with no surface nodularity to suggest cirrhosis. Normal size gallbladder, likely containing sludge and stones. Labs Labs: Laboratory Tests 04/16/25 04:41 04/16/25 04:41 Calcium 8.9 Total Bilirubin 0.2 AST 13 L ALT 8 Alkaline Phosphatase 93 Total Protein 6.1 L Albumin 3.4 L
--- NOTE | 2025-04-16 12:16 | PM.DS ---
DS: Admitting Diagnosis Discharge Date 04/16/2025 Admitting Diagnosis Pulmonary edema, Acute hypercapnic respiratory failure DS: Discharge Diagnosis Discharge Diagnosis (1) Occult blood in stools: Code(s): R19.5 - Other fecal abnormalities Status: Acute (2) UTI (urinary tract infection): Code(s): N39.0 - Urinary tract infection, site not specified Status: Acute (3) CHF (congestive heart failure): Qualifiers: Heart failure chronicity: unspecified Heart failure type: unspecified Qualified Code(s): I50.9 - Heart failure, unspecified Code(s): I50.9 - Heart failure, unspecified Status: Acute (4) Anemia: Qualifiers: Anemia type: due to chronic kidney disease Chronic kidney disease stage: on chronic dialysis Qualified Code(s): N18.6 - End stage renal disease; D63.1 - Anemia in chronic kidney disease; Z99.2 - Dependence on renal dialysis Code(s): D64.9 - Anemia, unspecified Status: Acute (5) Hyperkalemia: Code(s): E87.5 - Hyperkalemia Status: Acute (6) End stage renal disease: Code(s): N18.6 - End stage renal disease Status: Chronic (7) HTN (hypertension): Qualifiers: Hypertension type: unspecified Qualified Code(s): I10 - Essential (primary) hypertension Code(s): I10 - Essential (primary) hypertension Status: Chronic (8) COPD (chronic obstructive pulmonary disease): Qualifiers: COPD type: unspecified COPD Qualified Code(s): J44.9 - Chronic obstructive pulmonary disease, unspecified Code(s): J44.9 - Chronic obstructive pulmonary disease, unspecified Status: Acute (9) Seizures: Code(s): R56.9 - Unspecified convulsions Status: Acute (10) Bipolar 1 disorder: Code(s): F31.9 - Bipolar disorder, unspecified Status: Chronic (11) Anxiety: Code(s): F41.9 - Anxiety disorder, unspecified Status: Acute DS: Summary Hospital Course Reason for hospitalization: Shortness of breath Hospital Course: 65-year-old patient with past medical history of end-stage renal disease on dialysis Fridays, presents to the hospital with increased shortness of breath. She states that she is supposed to wear BiPAP at night however the longterm she is at has not been placing her on it. Patient seen after dialysis. She states that she feels little bit better. She denies nausea or vomiting. blood work shows hemoglobin 9.2 which is baseline, D-dimer 1.12, ABG 7.219, pCO2 71, PO2 74, potassium of 5.3, chloride of 96, carbon dioxide 31, BUN is 73, creatinine of 5.93, GFR 7, glucose 183, proBNP 5050 UA is dark yellow turbid 3+ leukocyte esterase over 100 RBCs over 100 wbc's and many squamous cells 4+ bacteria. Chest x-ray shows pulmonary edema. EKG shows sinus rhythm with nonspecific ST and T-wave abnormalities. Nephrology has been consulted plan for dialysis today due to fluid overload and hyperkalemia. EGD was performed on 04/11, indicated gastritis with no esophagitis or esophageal varices. No indications of recent bleeding, no AVM, masses or ulcers. Echocardiogram was obtained it showed no valvular abnormalities, EF of 65-70%. Liver ultrasound was unremarkable. Patient was started on meropenem given history of ESBL on 01/12/2025. Given ESBL history and limitations due to impaired kidney function, we will look to treat UTI with meropenem IV for the next 5 days until 04/16. Urine cultures obtained on 04/07 and showed widespread resistance with susceptibility to Augmentin, however given impaired kidney function we would need to utilize alternative antibiotic therapy. Meropenem appears to be best resection and will need to keep patient hospitalized for continued IV therapy. Patient is amenable to this plan. Throughout hospitalization she received regularly scheduled dialysis with Nephrology. On 04/16, patient was cleared for discharge given completion of IV meropenem and completion of dialysis. Throughout hospitalization blood work stable and patient remained afebrile without leukocytosis. She is stable discharge at this time for return back to nursing facility. Patient to be discharged at this time. Status at Discharge Functional status at discharge: uses cane/walker Overall status at discharge: patient is progressing back to baseline Time Spent with Patient Time attestation: Total time spent providing and/or coordinating discharge services: 45 Exam Narrative: General: female in no acute respiratory distress who is nontoxic appearing, lying semi recumbent in bed. HEENT: Normocephalic. Atraumatic. Extraocular movement intact. Sclera clear and anicteric. No facial asymmetry. Chest: Lungs are clear to auscultation bilaterally. No wheezes or crackles. CV: Heart was regular rate and rhythm. Abd: Abdomen was soft. Nontender. Nondistended. Positive bowel sounds. Ext: No clubbing, cyanosis, or edema. DP pulses bilaterally. Neuro: Patient is alert and oriented x3. Speech is clear. DS: Data Data Completed and Pending Labs on day of discharge: Labs from last 24 hours 04/16/25 04/16/25 04/15/25 07:47 04:41 19:44 WBC 5.5 RBC 2.78 L Hgb 7.9 L Hct 27.1 L MCV 97.5 MCH 28.4 MCHC 29.2 L RDW 16.1 H Plt Count 142 L MPV 9.2 Immature Gran % (Auto) 0.7 H Neut % (Auto) 80.6 H Lymph % (Auto) 12.5 L [place] % (Auto) 6.0 Eos % (Auto) 0.0 Baso % (Auto) 0.2 Lymph # (Auto) 0.69 L [place] # (Auto) 0.3 Eos # (Auto) 0.0 Baso # (Auto) 0.0 Abs Immat Gran (auto) 0.04 H Absolute Neuts (auto) 4.5 Absolute Nucleated RBC 0.000 Nucleated RBC % 0.0 Sodium 135 L Potassium 4.7 Chloride 100 Carbon Dioxide 24 Anion Gap 11 BUN 55 H D Creatinine 5.98 H Estim Creat Clear Calc 14 Estimated GFR 7 L Glucose 135 H POC Capillary Glucose 115 H 108 H Calcium 8.9 Total Bilirubin 0.2 AST 13 L ALT 8 Alkaline Phosphatase 93 Total Protein 6.1 L Albumin 3.4 L 04/15/25 17:04 WBC RBC Hgb Hct MCV MCH MCHC RDW Plt Count MPV Immature Gran % (Auto) Neut % (Auto) Lymph % (Auto) [place] % (Auto) Eos % (Auto) Baso % (Auto) Lymph # (Auto) [place] # (Auto) Eos # (Auto) Baso # (Auto) Abs Immat Gran (auto) Absolute Neuts (auto) Absolute Nucleated RBC Nucleated RBC % Sodium Potassium Chloride Carbon Dioxide Anion Gap BUN Creatinine Estim Creat Clear Calc Estimated GFR Glucose POC Capillary Glucose 117 H Calcium Total Bilirubin AST ALT Alkaline Phosphatase Total Protein Albumin Discharge Plan Discharge Attending physician on discharge: Rex Beckman Consulting providers: Fransico Cardozo; Nash Templeton; Jonatan Coulter; Petey Simon Discharging Clinician: Nash Templeton Anticipated Discharge Date/Time: 04/16/25 12:12 Patient Disposition: SNF Activity: no straining Diet: heart healthy Discharge Instructions: Discharge disposition: [facility] Take medications as prescribed Monitor blood pressures Take caution while standing, rising, or moving Change positions slowly taking a break between each position change If you standing feel dizzy sit back down and take a break Encouraged to continue with yearly vaccinations Return to the emergency department if he developed sudden shortness of breath, chest pain, nausea, vomiting, upset stomach or intractable diarrhea Return to the emergency department if you develop fever greater than 101.5 Follow-up with the primary care physician within 1-2 weeks Thank you for [facility] for your healthcare needs Patient Instructions: Heparin (By injection), Heart Failure (GEN) Patient Language: Malay Stand Alone Forms: General Discharge Information Follow-up/Referrals: Esvin Hope [Other] Discharge Medications: Continued acetaminophen [Aminofen] 325 mg tablet 650 mg PO Q6H PRN (Reason: fever or pain) Airsupra 90-80 mcg/actuation HFA aerosol inhaler 2 inh inhalation .every 6 hours PRN (Reason: shortness of breath or wheezing) Patient Comments: Do not exceed 6 doses in 24 hours. baclofen 5 mg tablet 5 mg PO BID diphenhydramine HCl [Aler-Cap] 25 mg capsule 50 mg PO Q8H PRN (Reason: allergy symptoms) cholecalciferol (vitamin D3) 50 mcg (2,000 unit) capsule 2,000 unit PO DAILY diclofenac sodium [Arthritis Pain (diclofenac)] 1 % gel 1 ea topical Q6H PRN (Reason: pain) Rx Instructions: apply to single elbow, wrist or hand; for hand includes palm/fingers/back of hand lactulose [Enulose] 10 gram/15 mL solution 20 g PO DAILY ergocalciferol (vitamin D2) 1,250 mcg (50,000 unit) capsule 1,250 mcg PO WEEKLY Patient Comments: takes on Wednesday escitalopram oxalate 10 mg tablet 20 mg PO DAILY hydroxyzine HCl 25 mg tablet 25 mg PO TID ipratropium-albuterol 0.5 mg-3 mg(2.5 mg base)/3 mL solution for nebulization 3 ml inhalation Q2H PRN (Reason: shortness of breath) atorvastatin 40 mg tablet 40 mg PO QHS levetiracetam 500 mg tablet 500 mg PO BID ferrous sulfate 325 mg (65 mg iron) Tablet 325 mg PO DAILY fluticasone propionate 50 mcg/actuation spray,suspension 1 spray INTRANASAL DAILY hydrocodone-acetaminophen 5-325 mg tablet 1 tablet PO Q8H PRN (Reason: Pain Rated 4-6) gabapentin 100 mg capsule 100 mg PO BID midodrine 5 mg tablet 5 mg PO .COMPLEX Rx Instructions: 5 mg orally once a day every other day; montelukast 10 mg tablet 10 mg PO DAILY insulin aspart U-100 [Novolog FlexPen U-100 Insulin] 100 unit/mL (3 mL) insulin pen 1 sliding scale dose SUBCUT .before meals Rx Instructions: Give subcutaneous before meals. -Blood sugar 150-199, give 1 unit. -Blood sugar 200-249, give 2 units. -Blood sugar 250-299, give 3 units. -Blood sugar 300-349, give 4 units. -Blood sugar 350-500, give 6 units. -If blood sugar is greater than 500, call MD. nystatin 100,000 unit/gram powder 1 applic TOPICAL BID Rx Instructions: Apply under skin folds. ondansetron HCl 4 mg tablet 4 mg PO Q8H PRN (Reason: nausea and vomiting) oxcarbazepine 150 mg tablet 150 mg PO BID quetiapine 25 mg tablet 50 mg PO HS trazodone 50 mg tablet 50 mg PO HS Robitussin Cough and Cold CF 2.5-5-50 mg/5 mL liquid 15 ml PO Q6H PRN (Reason: cough) cyanocobalamin (vitamin B-12) [Vitamin B-12] 1,000 mcg tablet 1,000 mcg PO DAILY Date of admission: 04/06/25 11:01 Primary Care Provider: Esvin Hope Admitting Provider: Mason Durham Attending physician on admission: Mason Durham Condition: Serious Quality VTE Prophylaxis VTE prophylaxis: mechanical ordered
[2025-04-16] MEDS: GABAPENTIN 100 MG CAPSULE PO (12:24)
[2025-04-16] MEDS: ESCITALOPRAM OXALATE 10 MG TABLET 20 MG PO (12:24)
[2025-04-16] MEDS: FERROUS SULFATE 325 MG TABLET DR BY MOUTH (12:24)
[2025-04-16] MEDS: PANTOPRAZOLE 40 MG TABLET PO (12:25)
[2025-04-16] MEDS: DOCUSATE SODIUM 100 MG CAPSULE PO (12:26)
[2025-04-16] MEDS: MEROPENEM 500 MG in SODIUM CHLORIDE 0.9% IV 100 ML 200 ML IVPB (14:22)
== END 2025-04-16 16:25 | DRG 640 ==
LOC: ANHED 15:44 → ANHIMU 15:48 → ANH2MED 04-08 18:02
PROVIDERS: General Practice; Internal Medicine; Internal Medicine Gastroenterology; Internal Medicine Nephrology; Nurse Practitioner Gerontology; Student in an Organized Health Care Education/Training Program; Admitting Provider Family Medicine; Emergency Provider Registered Nurse; Visit Provider Physician Assistant
PROC: 0DJ08ZZ Inspection of Upper Intestinal Tract, Via Natural or Artificial Opening Endoscopic (ICD-10-PCS; principal; 2025-04-11 15:00)
DX: E87.79 Other fluid overload (principal); J96.21 Acute and chronic respiratory failure with hypoxia; J96.22 Acute and chronic respiratory failure with hypercapnia; N18.6 End stage renal disease; I13.2 Hypertensive heart and chronic kidney disease with heart failure and with stage 5 chronic kidney disease, or end stage renal disease; I50.32 Chronic diastolic (congestive) heart failure; E66.2 Morbid (severe) obesity with alveolar hypoventilation; Z68.43 Body mass index [BMI] 50.0-59.9, adult; K92.2 Gastrointestinal hemorrhage, unspecified; Z91.158 Patient's noncompliance with renal dialysis for other reason; E11.22 Type 2 diabetes mellitus with diabetic chronic kidney disease; D63.1 Anemia in chronic kidney disease; N28.89 Other specified disorders of kidney and ureter; G40.909 Epilepsy, unspecified, not intractable, without status epilepticus; K29.70 Gastritis, unspecified, without bleeding; F31.9 Bipolar disorder, unspecified; F41.9 Anxiety disorder, unspecified; E87.5 Hyperkalemia; I48.0 Paroxysmal atrial fibrillation; M06.9 Rheumatoid arthritis, unspecified; J44.9 Chronic obstructive pulmonary disease, unspecified; Z99.2 Dependence on renal dialysis; Z87.891 Personal history of nicotine dependence
CPT/HCPCS: 36415; 36600; 71045; 76700; 80053; 80069; 80076; 81001; 82274; 82728; 82805; 82948; 83036; 83540; 83550; 83605; 83735; 83880; 84100; 84484; 85018; 85025; 85027; 85380; 85610; 85730; 87040; 87086; 87340; 87637; 87641; 93005; 93970; 94002; 94003; 94640; 96374; 99291; A4248; A9270; C8929; G0257; J0744; J1596; J1644; J1938; J2003; J2185; J2470; J2704; J7030; J7040; Q5105; Q9957

== ENCOUNTER 2025-04-23 13:44 | Inpatient (IN) | payer MEDICARE, SELFPAY ==
[2025-04-23] VITALS (27 sets, daily range): BP systolic 96–143; BP diastolic 46–91; PULSE 60–76; RESP 16–24; TEMP 14.4–36.9; O2SAT 93–100; BMI 58.4
--- NOTE | ~2025-04-23 | XR_ITS ---
Exam: X-ray chest one view portable Clinical history shortness of breath. COMPARISON: Chest x-ray 04/06/2025 FINDINGS: Patient is leaning to the left and is rotated to the left which limits evaluation. Double-lumen right-sided central venous catheter is present with its tips projecting over the right a trium. No pneumothorax. No obvious right-sided pleural effusion. Confluent opacity in the lower third of the left hemithorax. Differential includes a combination of p leural fluid and adjacent atelectasis and/or consolidation. An underlying mass is possible. Recommend follow-up to resolution. Consider a chest CT for further assessment. Small interstitial and air space opacities scattered throughout the right lung and in the upper two t hirds of the left lung. The findings have slightly worsened as compared to the study from 04/06/2025. Differential includes but is not limited to edema or pneumonia. IMPRESSION: 1.Confluent opacity in the lower third of the left hemithorax. Differential includes a combination of pleural fluid and adjacent atelectasis and/or consolidation. An underlying mass is possible. Recomme nd follow-up to resolution. Consider a chest CT for further assessment. 2.Small interstitial and air space opacities scattered throughout the right lung and in the upper two thirds of the left lung. The findings have slightly worsened as compared to the study from 04/06/2025 . Differential includes but is not limited to edema or pneumonia. Follow-up suggested. Reviewed, dictated and finalized at location A. IMPRESSION: 1.Confluent opacity in the lower third of the left hemithorax. Differential inc ludes a combination of pleural fluid and adjacent atelectasis and/or consolidat ion. An underlying mass is possible. Recommend follow-up to resolution. Conside r a chest CT for further assessment. 2.Small interstitial and air space opacities scattered throughout the right dayo g and in the upper two thirds of the left lung. The findings have slightly wors ened as compared to the study from 04/06/2025. Differential includes but is not limited to edema or pneumonia. Follow-up suggested.
--- NOTE | 2025-04-23 13:58 | ED.GENADULT ---
HPI - General Adult General Chief complaint: Shortness of Breath/Dyspnea Stated complaint: SOB Time Seen by Provider: 04/23/25 13:52 History of Present Illness HPI narrative: 65-year-old female presents emergency department for evaluation for worsening shortness of breath. Patient states she has had worsening shortness breath over the last 2 days. EMS was called due to increased shortness of breath and patient was saturating Patient does do dialysis on Wednesdays and Fridays, patient states she did not do dialysis today due to worsening shortness of breath. Patient does have history of morbid obesity, acute on chronic anemia, seizure disorder, rheumatoid arthritis, paroxysmal AFib, COPD, end-stage renal disease, CHF, hypertension Related Data Home Medications ?Medication ?Instructions ?Recorded ?Confirmed ?Last Taken ?Type atorvastatin 40 mg tablet 40 mg PO QHS 06/30/21 04/23/25 04/22/25 22:30 History ferrous sulfate 325 mg (65 mg 325 mg PO DAILY 06/30/21 04/23/25 04/23/25 07:00 History iron) tablet fluticasone propionate 50 1 spray intranasal DAILY 06/30/21 04/23/25 04/23/25 07:00 History mcg/actuation nasal spray,suspension hydrocodone 5 mg-acetaminophen 325 1 tablet PO Q8H PRN Pain Rated 4-6 06/30/21 04/23/25 04/23/25 05:30 History mg tablet levetiracetam 500 mg tablet 500 mg PO BID 06/30/21 04/23/25 04/23/25 07:00 History acetaminophen 325 mg tablet 650 mg PO Q6H PRN fever or pain 01/13/25 04/23/25 04/21/25 11:30 History (Aminofen) albuterol 90 mcg-budesonide 80 2 inh inhalation .every 6 hours 01/13/25 04/23/25 03/27/25 22:40 History mcg/actuation HFA aerosol inhaler PRN shortness of breath or wheezing (Airsupra) baclofen 5 mg tablet 5 mg PO BID 01/13/25 04/23/25 04/23/25 05:30 History cholecalciferol (vitamin D3) 50 2,000 unit PO DAILY 01/13/25 04/23/25 04/21/25 09:50 History mcg (2,000 unit) capsule diclofenac sodium 1 % topical gel 1 ea topical Q6H PRN pain 01/13/25 04/23/25 Unknown History (Arthritis Pain (diclofenac)) diphenhydramine HCl 25 mg capsule 50 mg PO Q8H PRN allergy symptoms 01/13/25 04/23/25 04/18/25 13:40 History (Aler-Cap) ergocalciferol (vitamin D2) 1,250 1,250 mcg PO WEEKLY 01/13/25 04/23/25 04/21/25 09:00 History mcg (50,000 unit) capsule escitalopram oxalate 10 mg tablet 20 mg PO DAILY 01/13/25 04/23/25 04/23/25 07:00 History hydroxyzine HCl 25 mg tablet 25 mg PO TID 01/13/25 04/23/25 04/23/25 11:30 History ipratropium 0.5 mg-albuterol 3 mg 3 ml inhalation Q2H PRN shortness 01/13/25 04/23/25 03/27/25 22:40 History (2.5 mg base)/3 mL nebulization of breath soln lactulose 10 gram/15 mL oral 20 g PO DAILY 01/13/25 04/23/25 04/22/25 07:00 History solution (Enulose) gabapentin 100 mg capsule 100 mg PO BID 04/06/25 04/23/25 04/23/25 07:00 History insulin aspart U-100 100 unit/mL 1 sliding scale dose subcut 04/06/25 04/23/25 08 11:40 History (3 mL) subcutaneous pen (Novolog .before meals FlexPen U-100 Insulin aspart) midodrine 5 mg tablet 5 mg PO .COMPLEX 04/06/25 04/23/25 04/23/25 07:00 History montelukast 10 mg tablet 10 mg PO DAILY 04/06/25 04/23/25 04/23/25 07:00 History nystatin 100,000 unit/gram topical 1 applic topical BID 04/06/25 04/23/25 04/23/25 07:00 History powder ondansetron HCl 4 mg tablet 4 mg PO Q8H PRN nausea and vomiting 04/06/25 04/23/25 01/25/25 11:00 History oxcarbazepine 150 mg tablet 150 mg PO BID 04/06/25 04/23/25 04/23/25 07:00 History quetiapine 25 mg tablet 50 mg PO HS 04/06/25 04/23/25 04/22/25 22:30 History trazodone 50 mg tablet 50 mg PO HS 04/06/25 04/23/25 04/22/25 22:30 History cyanocobalamin (vitamin B-12) 1,000 mcg PO DAILY 04/07/25 04/23/25 04/23/25 07:00 History 1,000 mcg tablet (Vitamin B-12) [id number] 2.5 15 ml PO Q6H PRN cough 04/07/25 04/23/25 12/30/24 08:30 History mg-5 mg-50 mg/5 mL oral liquid (Robitussin Cough and Cold CF) Allergies Allergy/AdvReac Type Severity Reaction Status Date / Time Penicillins Allergy Severe Anaphylaxis Verified 04/07/25 00:09 Review of Systems Review of Systems: All systems reviewed & are unremarkable except as noted in HPI and below PMFSH Past Medical History Medical History (Updated 04/23/25 @ 21:38 by Yogi Mascorro MD) Occult blood in stools Acute on chronic anemia Seizure disorder Immobility Rheumatoid arthritis PAF (paroxysmal atrial fibrillation) Fibromyalgia Gout Obesity hypoventilation syndrome SHELDON (obstructive sleep apnea) Chronic respiratory failure with hypoxia Atrial fibrillation COPD (chronic obstructive pulmonary disease) Diastolic heart failure Bipolar 1 disorder Anxiety and depression Left renal mass suspected malignancy Nephrolithiasis End stage renal disease ESRD on dialysis CHF (congestive heart failure) HTN (hypertension) COPD (chronic obstructive pulmonary disease) Surgical History Surgical History History of cystoscopy S/P ureteral reimplantation History of hysterectomy S/P hemodialysis catheter insertion Family History Family History Father Lung cancer Grandparent Colon cancer Mother Congestive heart failure Social History Social History Smoking packs per day: 0.5 Smoking cigarettes per day: 10.0 Years smoked: 10 Smoking pack-years: 5.00 Smoking status: Never smoker Tobacco type: cigarettes Second hand tobacco smoke exposure: Yes Alcohol intake: never Substance use: never Substance use type: does not use Last use: 06/13/21 Do You Feel Safe in your Home?: Yes Lack of Transportation: No Lack of Food: Never True Current Housing: I Have Housing Concerned About Future Housing: No Difficulty Paying Gas/Electric Bills: No Difficulty Paying for Meds: No Currently Unemployed: No Education: High School Diploma/GED Difficulty w/ Childcare or Family Care: No Gender identity (if verbalized by the patient): Female Sexual Orientation (if Verbalized by the Patient): Straight or Heterosexual Spiritual care concerns: No Exam Narrative: APPEARANCE: Morbid obesity HEAD: normocephalic, atraumatic. EYES: PERRLA/EOMI, conjunctivae clear. NOSE: Normal no drainage EARS:TMS clear with good light reflex. THROAT: Pharynx clear, no exudate. NECK: Supple. No adenopathy, no masses. RESPIRATORY: Increased work of breathing CARDIOVASCULAR: Regular rate and rhythm without murmurs rubs or gallops. ABDOMINAL: Soft, nontender, nondistended, normal bowel sounds MUSCULOSKELETAL: Moves all extremities. Strength/ROM intact, No edema, No calf tenderness. NEURO: Alert. Cranial nerves II through XII intact. Good gait. Good coordination SKIN: Warm, dry. Normal Color Course Vital Signs Vital signs: Vital Signs Pulse Rate 76 04/23/25 13:47 Respiratory Rate 16 04/23/25 13:47 Blood Pressure 143/82 H 04/23/25 13:47 Pulse Oximetry 98 04/23/25 13:47 Oxygen Delivery CPAP 04/23/25 13:47 Oxygen Flow Rate 15 04/23/25 13:47 Temperature 98.1 F 04/23/25 20:06 Pulse Rate 69 04/23/25 20:24 Respiratory Rate 22 H 04/23/25 20:24 Blood Pressure 123/51 L 04/23/25 20:06 Pulse Oximetry 100 04/23/25 20:24 Oxygen Delivery BiPAP 04/23/25 20:24 Oxygen Flow Rate 15 04/23/25 13:47 Fraction of Inspired Oxygen 40 04/23/25 17:20 Medical Decision Making MDM Narrative Medical decision making narrative: 65-year-old female presents emergency department for evaluation for increased work of breathing and shortness of breath. Patient states has been ongoing for the last few days. Patient reports she was too weak to go to dialysis today. Patient does dialysis on Wednesdays and Fridays. Patient does have a history of hypercapnic respiratory failure and was actually just discharged from the hospital just 1 week ago. Patient did improve on BiPAP and patient has no significant abnormalities on her ABG. Nephrology was consulted. Patient was admitted to the hospital for fluid overload and increased work of breathing. Differential Diagnosis Differential Diagnosis: Pneumonia, COPD, hypercapnic respiratory failure, fluid overload, pleural effusion Vital Signs Vital Signs: Vital Signs Pulse Rate 76 04/23/25 13:47 Respiratory Rate 16 04/23/25 13:47 Blood Pressure 143/82 H 04/23/25 13:47 Pulse Oximetry 98 04/23/25 13:47 Oxygen Delivery CPAP 04/23/25 13:47 Oxygen Flow Rate 15 04/23/25 13:47 Temperature 98.1 F 04/23/25 20:06 Pulse Rate 69 04/23/25 20:24 Respiratory Rate 22 H 04/23/25 20:24 Blood Pressure 123/51 L 04/23/25 20:06 Pulse Oximetry 100 04/23/25 20:24 Oxygen Delivery BiPAP 04/23/25 20:24 Oxygen Flow Rate 15 04/23/25 13:47 Fraction of Inspired Oxygen 40 04/23/25 17:20 Lab Data Lab results reviewed: Yes I reviewed the patient's lab results. 04/23/25 14:30 04/23/25 14:30 Labs: Lab Results 04/23/25 04/23/25 04/23/25 Range/Units 14:29 14:30 14:32 WBC 9.6 (4.5-10.0) K/mm3 RBC 3.42 L (4.2-5.4) M/mm3 Hgb 9.7 L (12.0-15.0) g/dL Hct 33.6 L (37.0-47.0) % MCV 98.2 (80-100) fl MCH 28.4 (26-34) pg MCHC 28.9 L (32-36) g/dl RDW 16.1 H (11.5-14.5) % Plt Count 157 (150-375) k/mm3 MPV 9.6 (7.4-10.4) fl Immature Gran % (Auto) 0.4 (0-0.5) % Neut % (Auto) 88.8 H (45.5-73.1) % Lymph % (Auto) 6.9 L (18.3-44.2) % [place] % (Auto) 3.8 (2.6-8.5) % Eos % (Auto) 0.0 (0-4.4) % Baso % (Auto) 0.1 L (0.2-1.2) % Lymph # (Auto) 0.66 L (0.9-3.2) K/mm3 [place] # (Auto) 0.4 (0.1-0.6) K/mm3 Eos # (Auto) 0.0 (0-0.3) K/mm3 Baso # (Auto) 0.0 (0.0-0.1) K/mm3 Abs Immat Gran (auto) 0.04 H (0.00-0.031) K/mm3 Absolute Neuts (auto) 8.6 H (1.3-6.7) K/mm3 Absolute Nucleated RBC 0.000 (0.0-0.012) K/mm3 Band Neutrophils % 0 (0-6) % Nucleated RBC % 0.0 (0.0-0.2) % Platelet Estimate Adequate (Adequate) Hypochromasia 1+ Anisocytosis 2+ Schistocytes None seen Methemoglobin 0.2 (0-1.5) %THb Expiratory Pressure 7 cmH2O Inspiratory Pressure 14 cmH2O Sodium 139 (137-145) mmol/L Potassium 5.0 (3.4-5.0) mmol/L Chloride 98 (98-107) mmol/L Carbon Dioxide 28 (22-30) mmol/L Anion Gap 13 H (4-12) mmol/L BUN 73 H D (7-17) mg/dL Creatinine 6.20 H (0.7-1.0) mg/dL Estim Creat Clear Calc Not Reportable Estimated GFR 7 L (59 - ) Glucose 123 H (65-110) mg/dL Lactic Acid 1.1 (0.7-2.0) mmol/L Calcium 8.4 (8.4-10.2) mg/dL Total Bilirubin 0.5 (0.2-1.3) mg/dL AST 20 (14-36) U/L ALT 11 (6-35) U/L Alkaline Phosphatase 99 (38-126) U/L Total Protein 7.2 (6.3-8.2) g/dL Albumin 4.1 (3.5-5.1) g/dL ABG Data ABG results: 04/23/25 14:29 Puncture Site Right radial ABG pH 7.319 L ABG pCO2 49.5 H ABG pO2 216.2 H ABG PO2/FiO2 Ratio 3.09 ABG HCO3 24.9 ABG O2 Saturation 99.4 ABG O2 Content 15.0 L ABG Base Excess -1.5 A-a Gradient 229.7 Oxyhemoglobin 98.3 Carboxyhemoglobin 1.0 Reduced Hemoglobin 0.5 Total Hemoglobin 10.5 L O2 Delivery Device Bipap O2 Liters/Min Not Reportable FiO2 70 Imaging Data Radiologist's impression: Impressions Chest X-Ray 04/23/25 15:07 IMPRESSION: 1.Confluent opacity in the lower third of the left hemithorax. Differential includes a combination of pleural fluid and adjacent atelectasis and/or consolidation. An underlying mass is possible. Recommend follow-up to resolution. Consider a chest CT for further assessment. 2.Small interstitial and air space opacities scattered throughout the right lung and in the upper two thirds of the left lung. The findings have slightly worsened as compared to the study from 04/06/2025. Differential includes but is not limited to edema or pneumonia. Follow-up suggested. Discharge Plan Discharge Clinical Impression: Admission for dialysis and dialysis catheter care, Shortness of breath COPD (chronic obstructive pulmonary disease) Qualifiers: COPD type: unspecified COPD Qualified Code(s): J44.9 - Chronic obstructive pulmonary disease, unspecified Patient Disposition: Still a Patient Condition: Serious
--- OUTSIDE RECORDS SUMMARY | 2025-04-23 14:18 | XMS_ITS | Encounter Summary ---
Author Organization [facility] Address [address] [place] [address] Care Team Providers Care Warper Creeler Name Role Phone Nicolas Navarro MD Primary Care Provider [phone] Mckay Pineda MD Primary Care Provider Leroy Livingston MD Primary Care Provider [phone] Omar Pugh Primary Care Provider [phone] Encounter Details Date Type Department Care Team (Late st Contact Info) Description 11/27/2017 Abstract [facility] CONVERSION [address] [place] [address] , Generic Kamila, Social History Tobacco Use Types Packs/Day Years Used Date Smoking Tobacco: Never Assessed Comments Unknown Sex and Gender Information Value Date Recorded Sex Assigned at Female 11/28/2024 8:51 AM CDT Legal Sex 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 Source: 03/26/24 [facility]. 03/26/2024 06/03/2024 documented as of this encounter Care Teams Warper Creeler Relationship Specialty Start Date End Date Nicolas Navarro MD [address] [facility] [place] [phone] PCP - General FAMILY PRACTICE 04/17/19 06/18/21 Mckay Pineda MD [address] [place] [phone] PCP - General FAMILY PRACTICE 06/19/21 12/14/22 Leroy Livingston MD [address] [place] [phone] PCP - General FAMILY PRACTICE 12/15/22 03/06/23 [place] [id number] [address] PCP - General PHYSICIAN [employer] 03/07/23 documented as of this encounter
--- OUTSIDE RECORDS SUMMARY | 2025-04-23 14:18 | XMS_ITS | Clinical Summary ---
Author Organization [facility] Address [address] [place] [address] Phone Care Team Providers Care Box Liner Name Role Phone Provider, None Primary Care [...] naloxone HCl (Narcan) 4 MG/0.1ML Liquid 1 [place] by Nasal route as needed for Opioid [...] Next Due Pneumococcal conjugate PCV20 , polysaccharide RNU274 conjugate, adjuvant, PF 09/30/2024() Social History Tobacco Use Types Packs/Day Years Used Date Smoking Tobacco: Every Day Cigarettes Smokeless Tobacco: Never Tobacco Cessation:Ready to Q uit: Not Asked; Counseling Given: Not Answered Alcohol Use Standard Drinks/Week Comments No 0 (1 standard drink = 0.6 oz pur e alcohol) [facility] Utilities Answer Date Recorded In the [...] often do you attend chur ch or protestant services? Patient unable to answer 09/27/2024 Active [...] and heating? Patient unable to answer 09/27/2024 Stateless [place] [facility] Occupat ional [facility] - Occupational Stress [...] any time in the past 12 m [facility], were you homeless or living in a snf (including now)? No 11/25/2024 Comments No Sex [...] DETECTED NON DETECTED 11/27/2024 4:07 PM CDT [facility] Comment: IGM Antibodies to HAV not detected. Does not exclude early acute or recovered HAV infection. HEP B CORE AB (IGM) NON DETECTED NON DETECTED 11/27/2024 4:07 PM CDT [facility] Comment:IGM anti-HBC not det ected. Does not exclude the possibility of exposure to or infection with HBV. HEPATITIS B SURFACE ANTIGEN NON DETECTED NON DETECTED 11/27/2024 4:07 PM CDT [facility] Comment:A nonreactive test r esult does not [...] 0.09 <1 S/CO 11/27/2024 4:07 PM CDT [facility] Comment: Signal/Cutoff ratio < 0.79 is Nondetected Signal/Cutoff ratio 0.80-0.99 is Grayzone Signal/Cutoff ratio > 0.99 is Detected Supplemental assays are recommended if signal/cutoff ratio is >/=1.00. Signal/cutoff ratio result >/= 5.00 is 97% predictive of positivity for recombinant immunoblot assay (RIBA) and will be reported to the [place] [facility] as required. Blood Venipuncture / Unknown 11/27/2024 2:26 AM CDT 11/27/2024 2:31 AM CDT us Lesley Cruz MD HEMATOLOGY ORDERABLES F inal Result [facility] [address] [place] [address], [place] from Last 3 Months or Most Recently Relevant to Health Maintenance Additional Health Concerns Infection Onset Date Last Indicated ESBL Comment:Added from external infection. Source: [facility]. 11/02/2024 Insurance MEDICAID [place] AET Advance Directives * Full [...] measures to stabilize the patient. Care Teams Box Liner Relationship Specialty Start Date End Date Provider, None [place] PCP - General 11/24/24
--- OUTSIDE RECORDS SUMMARY | 2025-04-23 14:19 | XMS_ITS | Clinical Summary ---
Author Organization [facility] [address] [place] [address] Phone Care Team Providers Care Coloring Checker Name Role Phone No, Physician Primary Care Provider [phone] Terence Garcia MD Unavailable [phone] Sophia Thomas MD Unavailable [phone] Allergies Active Allergy Reactions Criticality Noted Date [...] 08/04/2022 Assessment & Plan (08/04/2022 10:52 AM DRAWER IN): Had normal K on admission. K last 2 days has been 5.1, 5.3. whole blood K of 5.2. Creatinine stable. Suspect due to immobilization vs resolving YAYA. -treat with lokelma x 2 days -will need repeat labs at SNF in 3-7 days. CKD (chronic kidney disease) stage 3, GFR 30-59 ml/min 07/28/2022 Assessment & Plan (08/04/2022 10:50 AM DRAWER IN): Mild YAYA on top of CKD3 - improved, now creat stable at 1.29. (though might be artificially increased due to being on bactrim) - avoid nephrotoxins and renally dose meds Assessment & Plan (08/02/2022 2:25 PM DRAWER IN): Mild yaya on top of CKD 3 - will continue to monitor with daily BMP - avoid nephrotoxins and renally dose meds - creatinine stable but not back to baseline, Bactrim may be contributing to cr lab elevation - IVF today and reassess Assessment & Plan (08/01/2022 11:07 AM DRAWER IN): Mild yaya on top of CKD 3 - will continue to monitor with daily BMP - avoid nephrotoxins and renally dose meds - creatinine downtrending Assessment & Plan (07/31/2022 1:52 PM DRAWER IN): Mild yaya on top of CKD 3 - will continue to monitor with daily BMP - Hold am lasix, add small IVF bolus - avoid nephrotoxins and renally dose meds - creatinine downtrending Assessment & Plan (07/30/2022 1:34 PM DRAWER IN): Mild yaya on top of CKD 3 - will continue to monitor with daily BMP - slight bump today - Hold am lasix, add small IVF bolus - avoid nephrotoxins and renally dose meds Assessment & Plan (07/28/2022 2:32 PM DRAWER IN): Mild yaya on top of CKD 3 - will continue to monitor with daily BMP - Hold am lasix - send urinalysis - avoid nephrotoxins and renally dose meds Cellulitis of abdominal wall 07/27/2022 Assessment & Plan (08/04/2022 10:49 AM DRAWER IN): Pt presenting with abdominal wall erythema and [...] resolved Assessment & Plan (08/02/2022 2:23 PM DRAWER IN): Pt presenting with abdominal wall erythema and [...] improving Assessment & Plan (08/01/2022 10:56 AM DRAWER IN): Pt presenting with abdominal wall erythema and [...] improving Assessment & Plan (07/31/2022 1:51 PM DRAWER IN): Pt presenting with abdominal wall erythema and [...] positive Assessment & Plan (07/30/2022 1:32 PM DRAWER IN): Pt presenting with abdominal wall erythema and [...] contaminant Assessment & Plan (07/29/2022 2:29 PM DRAWER IN): Pt presenting with abdominal wall erythema and [...] appropriate Assessment & Plan (07/28/2022 2:24 PM DRAWER IN): Pt presenting with abdominal wall erythema and [...] 01/21/2022 Assessment & Plan (08/03/2022 3:28 PM DRAWER IN): CT in January 2022 showed 4 cm [...] HOSPITAL Assessment & Plan (08/02/2022 2:24 PM DRAWER IN): CT in January 2022 showed 4 cm [...] HOSPITAL Assessment & Plan (08/01/2022 11:05 AM DRAWER IN): CT in January 2022 showed 4 cm [...] not Assessment & Plan (07/31/2022 1:51 PM DRAWER IN): CT in January 2022 showed 4 cm indeterminant renal mass, has progressed since previous imaging and was recommended to have MRI outpatient but patient was not scanned. - ordered MRI and attempting to get as inpatient Assessment & Plan (07/30/2022 1:33 PM DRAWER IN): CT in January 2022 showed 4 cm indeterminant renal mass, has progressed since previous imaging and was recommended to have MRI outpatient but patient was not scanned. - ordered MRI Assessment & Plan (07/28/2022 2:30 PM DRAWER IN): CT in January 2022 showed 4 cm [...] 021 Assessment & Plan (08/04/2022 10:49 AM DRAWER IN): Pt with Hx of COPD (former smoker), SHELDON and OHS on 3L O2 chronically and Bipap At baseline - Cont home ICS/LABA (formulary substitute for home symbicort) and duonebs prn, bipap and supplemental O2. Assessment & Plan (08/02/2022 2:23 PM DRAWER IN): Pt with Hx of COPD (former smoker), SHELDON and OHS on 3L O2 chronically and Bipap - Cont home ICS/LABA (formulary substitute for home symbicort) and duonebs prn, bipap and supplemental O2. Assessment & Plan (08/01/2022 10:56 AM DRAWER IN): Pt with Hx of COPD (former smoker), SHELDON and OHS on 3L O2 chronically and Bipap - Cont home ICS/LABA (formulary substitute for home symbicort) and duonebs prn, bipap and supplemental O2. Assessment & Plan (07/31/2022 1:51 PM DRAWER IN): Pt with Hx of COPD (former smoker), SHELDON and OHS on 3L O2 chronically and Bipap - Cont home ICS/LABA (formulary substitute for home symbicort) and duonebs prn, bipap and supplemental O2. Assessment & Plan (07/30/2022 1:32 PM DRAWER IN): Pt with Hx of COPD (former smoker), SHELDON and OHS on 3L O2 chronically and Bipap - Cont home ICS/LABA (formulary substitute for home symbicort) and duonebs prn, bipap and supplemental O2. Assessment & Plan (07/29/2022 2:42 PM DRAWER IN): Pt with Hx of COPD (former smoker), SHELDON and OHS on 3L O2 chronically and Bipap - Cont home ICS/LABA (formulary substitute for home symbicort) and duonebs prn, bipap and supplemental O2. Assessment & Plan (07/28/2022 2:25 PM DRAWER IN): Pt with Hx of COPD (former smoker), [...] 04/02/2021 Assessment & Plan (08/04/2022 10:50 AM DRAWER IN): Patient with hx of left knee surgery 2/2 fracture and Right knee osteoarthritis. Also with hx of gout of Right Toe. Right knee exam is benign. - uric acid elevated - knee x-ray with OA - continue tylenol and oxycodone, added lidocaine patch Assessment & Plan (08/02/2022 2:22 PM DRAWER IN): Patient with hx of left knee surgery [...] (12/17/2021 1:05 PM CDT): - CPAP nightly. [facility] notes report CPAP at 6mm H2O with 2L O2 bleed in Assessment & Plan (12/16/2021 3:38 PM CDT): - CPAP nightly. [facility] notes report CPAP at 6mm H2O with 2L O2 bleed in Assessment & Plan (12/15/2021 10:05 AM CDT): - CPAP nightly. [facility] notes report CPAP at 6mm H2O with 2L O2 bleed in Assessment & Plan (12/14/2021 11:36 AM CDT): - CPAP nightly. [facility] notes report CPAP at 6mm H2O with 2L O2 bleed in Assessment & Plan (12/13/2021 10:36 AM CDT): - CPAP nightly. [facility] notes report CPAP at 6mm H2O with 2L O2 bleed in Assessment & Plan (12/11/2021 10:45 PM CDT): - CPAP nightly. [facility] notes report CPAP at 6mm H2O with 2L O2 bleed in Atypical chest pain 12/10/2018 Paroxysmal atrial fibrillation ([facility]/HCC) 019 Assessment & Plan (12/17/2021 1:05 PM CDT): - Continue Xarelto and diltiazem Assessment & Plan (12/16/2021 3:38 PM CDT): - Continue Xarelto and diltiazem Assessment & Plan (12/15/2021 10:05 AM CDT): Xarelto, dilt Assessment & Plan (12/14/2021 11:36 AM CDT): claire Guerin Assessment & Plan (12/12/2021 9:36 AM CDT): claire Guerin Subclinical hypothyroidism 12/10/2018 Assessment & Plan (08/03/2022 3:28 PM DRAWER IN): Continue home synthyroid Assessment & Plan (08/02/2022 2:24 PM DRAWER IN): Continue home synthyroid Assessment & Plan (08/01/2022 10:57 AM DRAWER IN): Continue home synthyroid Assessment & Plan (07/31/2022 1:51 PM DRAWER IN): Continue home synthyroid Assessment & Plan (07/30/2022 1:33 PM DRAWER IN): Continue home synthyroid Assessment & Plan (07/27/2022 8:24 PM DRAWER IN): Continue home synthyroid Assessment & Plan (01/23/2022 [...] 03/19/2018 Assessment & Plan (08/03/2022 3:26 PM DRAWER IN): Continue home xarelto Assessment & Plan (08/02/2022 2:24 PM DRAWER IN): Continue home xarelto Assessment & Plan (08/01/2022 10:57 AM DRAWER IN): Continue home xarelto Assessment & Plan (07/31/2022 1:51 PM DRAWER IN): Continue home xarelto Assessment & Plan (07/30/2022 1:33 PM DRAWER IN): Continue home xarelto Assessment & Plan (07/27/2022 8:25 PM DRAWER IN): Continue home xarelto Assessment & Plan (01/23/2022 [...] embolus less than 3 months ago no [place] details she has had numerous hospitalizations in [...] (10/27/2017): Added automatically from request for surgery [id number] Restless leg 10/18/2017 Assessment & Plan (08/03/2022 3:28 PM DRAWER IN): Continue pramipexole Assessment & Plan (08/02/2022 2:23 PM DRAWER IN): Continue pramipexole Assessment & Plan (08/01/2022 10:57 AM DRAWER IN): Continue pramipexole Assessment & Plan (07/31/2022 1:51 PM DRAWER IN): Continue pramipexole Assessment & Plan (07/30/2022 1:33 PM DRAWER IN): Continue pramipexole Assessment & Plan (07/27/2022 8:23 PM DRAWER IN): Continue pramipexole Assessment & Plan (12/17/2021 1:04 [...] 10/18/2017 Assessment & Plan (10/18/2017 6:00 PM DRAWER IN): Informed patient today that she would need to comply with this office recommendations on management of her multiple chronic conditions, failure to do so, would mean that she would need to find another primary care provider. Chronic pain syndrome 10/18/2017 Assessment & Plan (12/17/2021 1:04 PM CDT): Chronic pain of bilateral legs s/p fracture, shoulder and back. On Imbler 7.5-325 q6h prn at home - tylenol 1g q6h prn, oxycodone 10mg q6h prn - home gabapentin 100mg TID - scheduled and prn bowel regimen - started lidoderm patches for most painful area Assessment & Plan (12/16/2021 3:37 PM CDT): chronic pain of bilateral legs s/p fracture, shoulder and back. On Imbler 7.5-325 q6h prn at home - tylenol 1g q6h prn, oxycodone 10mg q6h prn - home gabapentin 100mg TID - scheduled and prn bowel regimen - started lidoderm patches for most painful area Assessment & Plan (12/15/2021 10:05 AM CDT): chronic pain of bilateral legs s/p fracture, shoulder and back. On Imbler 7.5-325 q6h prn at home - tylenol 1g q6h prn, oxycodone 10mg q6h prn - home gabapentin 100mg TID - scheduled and prn bowel regimen - started lidoderm patches for most painful area Assessment & Plan (12/14/2021 11:36 AM CDT): chronic pain of bilateral legs s/p fracture, shoulder and back. On Imbler 7.5-325 q6h prn at home - tylenol 1g q6h prn, oxycodone 10mg q6h prn - home gabapentin 100mg TID - scheduled and prn bowel regimen - started lidoderm patches for most painful area Assessment & Plan (12/13/2021 10:36 AM CDT): chronic pain of bilateral legs s/p fracture, shoulder and back. On Imbler 7.5-325 q6h prn at home - tylenol 1g q6h prn, oxycodone 10mg q6h prn - home gabapentin 100mg TID - scheduled and prn bowel regimen - started lidoderm patches for most painful area Assessment & Plan (12/12/2021 9:35 AM CDT): chronic pain of bilateral legs s/p fracture, shoulder and back. On Imbler 7.5-325 q6h prn at home - tylenol [...] events Assessment & Plan (10/18/2017 5:57 PM DRAWER IN): Referred to pain mgmt for further eval/tx. Wound dehiscence 10/18/2017 Assessment & Plan (10/18/2017 5:58 PM DRAWER IN): Referral given 2 months ago to be seen by wound care. Patient did not follow up with them. Seizure disorder 07/20/2017 Assessment & Plan (08/03/2022 3:28 PM DRAWER IN): Controlled. Continue home keppra & oxcarbazapine. Assessment & Plan (08/02/2022 2:23 PM DRAWER IN): Controlled. Continue home keppra & oxcarbazapine. Assessment & Plan (08/01/2022 10:57 AM DRAWER IN): Controlled. Continue home keppra & oxcarbazapine. Assessment & Plan (07/31/2022 1:51 PM DRAWER IN): Controlled. Continue home keppra & oxcarbazapine. Assessment & Plan (07/30/2022 1:33 PM DRAWER IN): Controlled. Continue home keppra & oxcarbazapine. Assessment & Plan (07/27/2022 8:25 PM DRAWER IN): Controlled. Continue home keppra & oxcarbazapine. Assessment [...] on gabapentin patient was previously followed at [facility] in [facility]. Plans continue gabapentin this time Assessment & Plan (10/18/2017 5:56 PM DRAWER IN): Self-reported, patient was referred to neurology 2 months ago immediately after she reported a seizure. Patient did not mellisa appt with neurology, patient encouraged to comply. Personality disorder 07/20/2017 Assessment & Plan (03/19/2018 2:33 PM CDT): Psychiatric referral made Assessment & Plan (10/18/2017 5:53 PM DRAWER IN): Encouraged patient to f/u through with Psychiatry referral. Bipolar 1 disorder, depressed, mild 07/20/2017 Assessment & Plan (08/03/2022 3:17 PM DRAWER IN): Symptoms controlled, cont home regimen of sertraline, Seroquel Assessment & Plan (08/02/2022 2:23 PM DRAWER IN): Symptoms controlled, cont home regimen of sertraline, Seroquel Assessment & Plan (08/01/2022 10:56 AM DRAWER IN): Symptoms controlled, cont home regimen of sertraline, Seroquel Assessment & Plan (07/31/2022 1:51 PM DRAWER IN): Symptoms controlled, cont home regimen of sertraline, Seroquel Assessment & Plan (07/30/2022 1:33 PM DRAWER IN): Symptoms controlled, cont home regimen of sertraline, Seroquel Assessment & Plan (07/29/2022 2:42 PM DRAWER IN): Symptoms controlled, cont home regimen of sertraline, Seroquel Assessment & Plan (07/27/2022 8:23 PM DRAWER IN): Symptoms controlled, cont home regimen of sertraline, [...] hallucinations. Assessment & Plan (10/18/2017 5:53 PM DRAWER IN): Rx refills given. Encouraged patient to f/u [...] therapy Assessment & Plan (10/18/2017 5:51 PM DRAWER IN): Hypertension is improving with treatment. Continue current treatment regimen. Dietary sodium restriction. Weight loss. Continue current medications. Blood pressure will be reassessed at the next regular appointment. Insomnia 07/20/2017 Assessment & Plan (10/18/2017 5:52 PM DRAWER IN): Will not fill both trazodone AND ambien, [...] 07/20/2017 Assessment & Plan (10/18/2017 5:56 PM DRAWER IN): Encouraged patient to follow through with nephrology referral she was given 2 months ago. Referral re-printed. Class 3 severe obesity with body mass index (BMI) greater than or equal to 70 in adult 07/20/2017 Assessment & Plan (08/03/2022 3:26 PM DRAWER IN): Pt with severe obesity, complicated by SHELDON/OHS. Leg fractures in 2020 managed nonoperatively, pt has been bed bound and living in SNF since that time. Assessment & Plan (08/02/2022 2:23 PM DRAWER IN): Pt with severe obesity, complicated by SHELDON/OHS. Leg fractures in 2020 managed nonoperatively, pt has been bed bound and living in SNF since that time. Assessment & Plan (08/01/2022 10:56 AM DRAWER IN): Pt with severe obesity, complicated by SHELDON/OHS. Leg fractures in 2020 managed nonoperatively, pt has been bed bound and living in SNF since that time. Assessment & Plan (07/31/2022 1:51 PM DRAWER IN): Pt with severe obesity, complicated by SHELDON/OHS. Leg fractures in 2020 managed nonoperatively, pt has been bed bound and living in SNF since that time. Assessment & Plan (07/30/2022 1:33 PM DRAWER IN): Pt with severe obesity, complicated by SHELDON/OHS. Leg fractures in 2020 managed nonoperatively, pt has been bed bound and living in SNF since that time. Assessment & Plan (07/27/2022 8:25 PM DRAWER IN): Pt with severe obesity, complicated by SHELDON/OHS. [...] she informs me that Dr. Panda in [facility] is willing to move this pannus patient referred to this particular physician to address this problem soon as possible. 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 Assessment & Plan (10/18/2017 5:56 PM DRAWER IN): Obesity is unchanged. Discussed the patient's BMI. [...] supratherapeutic level overnight. Plan to return to [facility] tomorrow. Assessment & Plan (12/13/2021 10:35 AM [...] one more day then likely return to [place] tomorrow with better wound care Acute kidney [...] ensure stability prior to return to her [facility]. Encounters Date Type Department Care Team Description 04/11/[address] [facility] [address] [place] [address] [place] [address] Zachary Augustine MD PhD 03/13/[address] [facility] [address] [place] [address] [place] [address] Zachary Augustine MD PhD 02/15/[address] [facility] [address] [place] [address] [place] [address] Zachary Augustine MD PhD from Last 3 Months Immunizations Immunization Administration [...] kidney disease 2006 Seizures (HCC) 2016 Fibromyalgia 2002 Osteoarthritis uses motorized w heelchair and walker Diabetes mellitus (HCC) Sleep apnea Seasonal allergies 1970 Bipolar 1 disorder ([facility]) History of pulmonary embolism Subclinical hypothyroidism 12/10/2018 CHF (congestive heart failure) (HCC) COPD (chronic obstructive pu lmonary disease) Family History Medical History Relation Name Comments [...] In the past 12 months has e [employer], gas, oil, or water [employer] threatened to shut off services in your home? No 01/15/2025 Social Connection and Isolation Panel Answer Date Recorded In a typical week, how many times do you talk on the phone with family, friends, or neighbors? Once a week 01/15/2025 How often do you get together with friends or re latives? Once a week 01/15/2025 How often do you attend congregational or mu-ism serv ices? Never 01/15/2025 Do you belong to any clubs o r organizations such as congregational groups, unions, fraternal or athletic groups, or [...] any time in the past 12 m [facility], were you homeless or living in a fdc (including now)? No 01/15/2025 Personal Safety Answer [...] history exists Medical Devices Implanted Type Area Pipe Caulker Device Identifier Shelf Expiration Date Model / Serial / Lot [facility] [employer] Duramax Vascpak Safesheath D-Pro 15.5fr 28cm Kit Catheter [id number] - [id number] Implanted:Qty: 1 on 01/15/2025 by Hill Martínez MD at [facility] [employer] 12/11/2026 [id number] / / [id number] Procedures Procedure Name Priority Date/Time Associated Diagnosis Comments HEPATITIS PANEL, ACUTE Routine 01/15/2025 3:30 PM CDT OCCULT BLOOD, FECAL (FIT) Routine 08/02/2017 7:41 AM DRAWER IN HM MAMMOGRAPHY Routine 01/11/2002 COLONOSCOPY Routine 10/14/2001 from Last 3 Months or Most Recently Relevant to Health Maintenance Results * Hepatitis panel, acute Blood (01/15/2025 3:30 PM CDT) Hep A IgM Nonreactive Nonreactive Comment: Interpretive Data: If Hep A IgM Ab is reported as Equivocal, a new sample should be drawn in two weeks for testing. Current interpretive data was last revised on 19. Hep B core IgM Nonreactive Nonreactive [facility] Comment: Interpretive Data If HepB Core IgM Ab is reported as Equivocal, a new sample should be drawn in two weeks for testing. Current interpretive data was last revised on 19. Hep C Ab Nonreactive Nonreactive [facility] Comment: Interpretive Data Nonreactive: Antibodies to [...] last revised on 2019. HepBsAg Nonreactive Nonreactive [facility] Blood 01/15/2025 3:30 PM CDT 01/15/2025 4:03 PM CDT Ajith Cruz MD LAB MICROBIOLOGY - GENERAL OR DERABLES Final Result [facility] [address] Department [place] [address] * Occult blood, fecal non neoplasm screening (08/02/2017 7:41 AM DRAWER IN) Occult blood, fecal Negative Negative [facility] Collection date 1, feces [id number] [facility] Collection time 1, feces 0740 [facility] Stool 08/02/2017 7:41 AM DRAWER IN 08/02/2017 7:44 AM DRAWER IN Pam Rivas MD LAB BODY FLUIDS AND STOOLS ORDER SARIKA Final Result [facility] [place]) [address] [facility] Department [place] [address] * MAMMOGRAPHY (01/11/2002) Mammogram Normal Historical Provider HEALTH MAINTENANCE Final Result * COLONOSCOPY (10/14/2001) Colonoscopy Unknown Historical Moisés [facility] HEALTH MAINTENANCE Final Result from Last 3 Months or Most Recently Relevant to Health Maintenance Additional Health Concerns Infection Onset Date Last Indicated MDR gram neg/ESBL 11/02/2024 11/02/[address] [place] [address] [place] [address] [facility] AETNA MEDICARE FOR[facility] [id number] [place] [address] [facility] [address] [place] [address] [employer] MEDICARE PPO [address] [place] [address] MEDICARE Advance Directives For more information, please contact: [phone] Documents on File Type Date Recorded Patient Pony Rougher Expl anation ADVANCE DIRECTIVE 10/17/2024 1:12 PM [...] Relationship Healthcare Agent Relationshi p Communication Nelly Kwan Friend Health Care Agent Care Teams Coloring Checker Relationship Specialty Start Date End Date No, Physician PCP - General 07/27/22 [place] [id number] [address] [facility] [address] [place] [address] Consulting Physician Urology 01/20/25 Sophia Thomas MD [address] [facility] [address] [place] [address] Consulting Physician Family Medicine 01/20/25
--- OUTSIDE RECORDS SUMMARY | 2025-04-23 14:19 | XMS_ITS | Clinical Summary ---
Author Organization [facility] Address [address] [place] [address] Care Team Providers Care Cna Instructor Name Role Phone Terri Balderas MD Primary Care Provider [phone] [facility],non-owned Affiliates and Associated Physician Practices is amultiple site organization consisting of ambulatory clinics and hospital sitesin [place], [place], [place] and [place]. This disclosure is being madepursuant to the Care Everywhere program and may not contain all information available regarding this patient. Last updated 18.[facility] Allergies Active Allergy Reactions Criticality Noted Date Comments Penicillins Unknown Medium 08/10/2017 Pt states she doesn't know what happened but she was in the hospital because of it when she was a child Has tolerated cephalosporins in the past Unknown reaction as a child Patient Stated That she took Amoxicillin prescription picked up from [facility] on 05/19/19 with no problems. [...] fluticasone propionate (Flonase) 50 MCG/ACT nasal spray [place] 1 (one) spray into each nostril 2 times daily Active gabapentin (Neurontin) 100 MG capsule Take 1 (one) capsule by mouth 3 times daily Active polyethylene glycol 3350 (Miralax) 17 GM/SCOOP powder Take 17 (seventeen) g by mouth once daily Active HYDROcodone-rosa taminophen ([place]) 5-325 MG tablet Take 1 (one) tablet [...] hours later. Active SALINE NASAL SPRAY NA [place] 2 sprays into the nose every 6 [...] and heating? Not hard at all 03/27/2024 [facility] Occupat ional Health - Occupational Stress [...] place to sleep or slept in a residential (including now)? No 03/27/2024 Comments Unknown Sex [...] Comments CREATININE BLOOD STAT 09/25/2024 7:00 PM BUSINESS SYSTEMS ADMINISTRATOR HEMOGLOBIN A1C Routine 03/29/2024 3:59 AM CDT from Last 3 Months or Most Recently Relevant to Health Maintenance Results * (ABNORMAL) CREATININE BLOOD (09/25/2024 7:00 PM BUSINESS SYSTEMS ADMINISTRATOR) Creatinine 4.74(H) 0.57 - 1.11 mg/dL 09/25/2024 8:18 PM BUSINESS SYSTEMS ADMINISTRATOR [facility] eGFR by CKD-EPI 10(L) >=90 mL/min/1.7 3 m2 09/25/2024 8:18 PM BUSINESS SYSTEMS ADMINISTRATOR [facility] Blood BLOOD SPECIMEN / Unknown Venipuncture / Unknown 09/25/2024 7:00 PM BUSINESS SYSTEMS ADMINISTRATOR 09/25/2024 7:51 PM BUSINESS SYSTEMS ADMINISTRATOR [facility] LAB - CHEMISTRY ORDERABLES Adrianna l Result Performing Organization Address City/State/[facility] Co de Phone Number [facility] [address] [place] [id number] * HEMOGLOBIN A1C (03/29/2024 3:59 AM CDT) Hemoglobin A1c 5.0 <5.7 % 03/29/2024 4:52 AM CDT [facility] Estimated Average Glucose 97 mg/dL 03/29/2024 4:52 AM CDT [facility] Blood BLOOD SPECIMEN / Unknown Venipuncture / Unknown 03/29/2024 3:59 AM CDT 03/29/2024 4:08 AM CDT Narrative [facility] - 03/29/2024 4:52 AM CDT HbA1c [...] LAB - CHEMISTRY ORDERABLES Fin al Result [facility] [id number] [place] [id number] from Last 3 Months or Most Recently Relevant to Health Maintenance Additional Health Concerns Infection Onset Date Last Indicated MRSA Hx Comment:nasal 2024 03/27/2024 ESBL GNR 03/26/2024 03/26/2024 MDRO 03/26/2024 03/26/2024 MRSA 03/26/2024 03/26/2024 Insurance MEDICAID AETNA [facility] AETNA MEDICARE ADV Advance Directives * Full Code (Latest Code Status on File) Date Activated Date Inactivated Comments 2024 7:37 AM 04/08/2024 5:26 PM * Full Code Date Activated Date Inactivated Comments 2024 5:02 AM 2024 7:37 AM Care Teams Cna Instructor Relationship Specialty Start Date End Date Terri Balderas MD [address] [place] [address] PCP - General Family Medicine 03/27/24
--- OUTSIDE RECORDS SUMMARY | 2025-04-23 14:19 | XMS_ITS ---
Author Organization [facility] [employer] Address [address] [place] [address] Phone Care Team Providers Care Personal Lines Agent Name Role Phone No, Physician Primary Care Provider [phone] Terence Garcia MD Unavailable [phone] Sophia Thomas MD Unavailable [phone] Dialysis Access Sites Type Status Location Placement [...] BLOOD, FECAL (FIT) Routine 08/02/2017 7:41 AM CONTINUOUS IMPROVEMENT MANAGER MAMMOGRAPHY Routine 01/11/2002 COLONOSCOPY Routine 10/14/2001 from [...] 08/04/2022 Assessment & Plan (08/04/2022 10:52 AM CONTINUOUS IMPROVEMENT MANAGER): Had normal K on admission. K last 2 days has been 5.1, 5.3. whole blood K of 5.2. Creatinine stable. Suspect due to immobilization vs resolving YAYA. -treat with lokelma x 2 days -will need repeat labs at SNF in 3-7 days. CKD (chronic kidney disease) stage 3, GFR 30-59 ml/min 07/28/2022 Assessment & Plan (08/04/2022 10:50 AM CONTINUOUS IMPROVEMENT MANAGER): Mild YAYA on top of CKD3 - improved, now creat stable at 1.29. (though might be artificially increased due to being on bactrim) - avoid nephrotoxins and renally dose meds Assessment & Plan (08/02/2022 2:25 PM CONTINUOUS IMPROVEMENT MANAGER): Mild yaya on top of CKD 3 - will continue to monitor with daily BMP - avoid nephrotoxins and renally dose meds - creatinine stable but not back to baseline, Bactrim may be contributing to cr lab elevation - IVF today and reassess Assessment & Plan (08/01/2022 11:07 AM CONTINUOUS IMPROVEMENT MANAGER): Mild yaya on top of CKD 3 - will continue to monitor with daily BMP - avoid nephrotoxins and renally dose meds - creatinine downtrending Assessment & Plan (07/31/2022 1:52 PM CONTINUOUS IMPROVEMENT MANAGER): Mild yaya on top of CKD 3 - will continue to monitor with daily BMP - Hold am lasix, add small IVF bolus - avoid nephrotoxins and renally dose meds - creatinine downtrending Assessment & Plan (07/30/2022 1:34 PM CONTINUOUS IMPROVEMENT MANAGER): Mild yaya on top of CKD 3 - will continue to monitor with daily BMP - slight bump today - Hold am lasix, add small IVF bolus - avoid nephrotoxins and renally dose meds Assessment & Plan (07/28/2022 2:32 PM CONTINUOUS IMPROVEMENT MANAGER): Mild yaya on top of CKD 3 - will continue to monitor with daily BMP - Hold am lasix - send urinalysis - avoid nephrotoxins and renally dose meds Cellulitis of abdominal wall 07/27/2022 Assessment & Plan (08/04/2022 10:49 AM CONTINUOUS IMPROVEMENT MANAGER): Pt presenting with abdominal wall erythema and [...] resolved Assessment & Plan (08/02/2022 2:23 PM CONTINUOUS IMPROVEMENT MANAGER): Pt presenting with abdominal wall erythema and [...] improving Assessment & Plan (08/01/2022 10:56 AM CONTINUOUS IMPROVEMENT MANAGER): Pt presenting with abdominal wall erythema and [...] improving Assessment & Plan (07/31/2022 1:51 PM CONTINUOUS IMPROVEMENT MANAGER): Pt presenting with abdominal wall erythema and [...] 21, stopping VANC on 07/30 - + 1/ blood cultures for Gram + clusters (reported as prelim staph epit), repeat cultures negative and likely contaminant - MRSA surveillance swab positive Assessment & Plan (07/30/2022 1:32 PM CONTINUOUS IMPROVEMENT MANAGER): Pt presenting with abdominal wall erythema and [...] contaminant Assessment & Plan (07/29/2022 2:29 PM CONTINUOUS IMPROVEMENT MANAGER): Pt presenting with abdominal wall erythema and [...] appropriate Assessment & Plan (07/28/2022 2:24 PM CONTINUOUS IMPROVEMENT MANAGER): Pt presenting with abdominal wall erythema and [...] 01/21/2022 Assessment & Plan (08/03/2022 3:28 PM CONTINUOUS IMPROVEMENT MANAGER): CT in January 2022 showed 4 cm [...] radiology they have such a scanner at [facility] Assessment & Plan (08/02/2022 2:24 PM CONTINUOUS IMPROVEMENT MANAGER): CT in January 2022 showed 4 cm [...] radiology they have such a scanner at [facility] Assessment & Plan (08/01/2022 11:05 AM CONTINUOUS IMPROVEMENT MANAGER): CT in January 2022 showed 4 cm [...] not Assessment & Plan (07/31/2022 1:51 PM CONTINUOUS IMPROVEMENT MANAGER): CT in January 2022 showed 4 cm indeterminant renal mass, has progressed since previous imaging and was recommended to have MRI outpatient but patient was not scanned. - ordered MRI and attempting to get as inpatient Assessment & Plan (07/30/2022 1:33 PM CONTINUOUS IMPROVEMENT MANAGER): CT in January 2022 showed 4 cm indeterminant renal mass, has progressed since previous imaging and was recommended to have MRI outpatient but patient was not scanned. - ordered MRI Assessment & Plan (07/28/2022 2:30 PM CONTINUOUS IMPROVEMENT MANAGER): CT in January 2022 showed 4 cm [...] the Enterococcus. Chronic respiratory failure with hypoxia Assessment & Plan (08/04/2022 10:49 AM CONTINUOUS IMPROVEMENT MANAGER): Pt with Hx of COPD (former smoker), SHELDON and OHS on 3L O2 chronically and Bipap At baseline - Cont home ICS/LABA (formulary substitute for home symbicort) and duonebs prn, bipap and supplemental O2. Assessment & Plan (08/02/2022 2:23 PM CONTINUOUS IMPROVEMENT MANAGER): Pt with Hx of COPD (former smoker), SHELDON and OHS on 3L O2 chronically and Bipap - Cont home ICS/LABA (formulary substitute for home symbicort) and duonebs prn, bipap and supplemental O2. Assessment & Plan (08/01/2022 10:56 AM CONTINUOUS IMPROVEMENT MANAGER): Pt with Hx of COPD (former smoker), SHELDON and OHS on 3L O2 chronically and Bipap - Cont home ICS/LABA (formulary substitute for home symbicort) and duonebs prn, bipap and supplemental O2. Assessment & Plan (07/31/2022 1:51 PM CONTINUOUS IMPROVEMENT MANAGER): Pt with Hx of COPD (former smoker), SHELDON and OHS on 3L O2 chronically and Bipap - Cont home ICS/LABA (formulary substitute for home symbicort) and duonebs prn, bipap and supplemental O2. Assessment & Plan (07/30/2022 1:32 PM CONTINUOUS IMPROVEMENT MANAGER): Pt with Hx of COPD (former smoker), SHELDON and OHS on 3L O2 chronically and Bipap - Cont home ICS/LABA (formulary substitute for home symbicort) and duonebs prn, bipap and supplemental O2. Assessment & Plan (07/29/2022 2:42 PM CONTINUOUS IMPROVEMENT MANAGER): Pt with Hx of COPD (former smoker), SHELDON and OHS on 3L O2 chronically and Bipap - Cont home ICS/LABA (formulary substitute for home symbicort) and duonebs prn, bipap and supplemental O2. Assessment & Plan (07/28/2022 2:25 PM CONTINUOUS IMPROVEMENT MANAGER): Pt with Hx of COPD (former smoker), [...] 04/02/2021 Assessment & Plan (08/04/2022 10:50 AM CONTINUOUS IMPROVEMENT MANAGER): Patient with hx of left knee surgery 2/2 fracture and Right knee osteoarthritis. Also with hx of gout of Right Toe. Right knee exam is benign. - uric acid elevated - knee x-ray with OA - continue tylenol and oxycodone, added lidocaine patch Assessment & Plan (08/02/2022 2:22 PM CONTINUOUS IMPROVEMENT MANAGER): Patient with hx of left knee surgery [...] (12/17/2021 1:05 PM CDT): - CPAP nightly. [facility] notes report CPAP at 6mm H2O with 2L O2 bleed in Assessment & Plan (12/16/2021 3:38 PM CDT): - CPAP nightly. [facility] notes report CPAP at 6mm H2O with 2L O2 bleed in Assessment & Plan (12/15/2021 10:05 AM CDT): - CPAP nightly. [facility] notes report CPAP at 6mm H2O with 2L O2 bleed in Assessment & Plan (12/14/2021 11:36 AM CDT): - CPAP nightly. [facility] notes report CPAP at 6mm H2O with 2L O2 bleed in Assessment & Plan (12/13/2021 10:36 AM CDT): - CPAP nightly. [facility] notes report CPAP at 6mm H2O [...] 12/10/2018 Assessment & Plan (08/03/2022 3:28 PM CONTINUOUS IMPROVEMENT MANAGER): Continue home synthyroid Assessment & Plan (08/02/2022 2:24 PM CONTINUOUS IMPROVEMENT MANAGER): Continue home synthyroid Assessment & Plan (08/01/2022 10:57 AM CONTINUOUS IMPROVEMENT MANAGER): Continue home synthyroid Assessment & Plan (07/31/2022 1:51 PM CONTINUOUS IMPROVEMENT MANAGER): Continue home synthyroid Assessment & Plan (07/30/2022 1:33 PM CONTINUOUS IMPROVEMENT MANAGER): Continue home synthyroid Assessment & Plan (07/27/2022 8:24 PM CONTINUOUS IMPROVEMENT MANAGER): Continue home synthyroid Assessment & Plan (01/23/2022 [...] 03/19/2018 Assessment & Plan (08/03/2022 3:26 PM CONTINUOUS IMPROVEMENT MANAGER): Continue home xarelto Assessment & Plan (08/02/2022 2:24 PM CONTINUOUS IMPROVEMENT MANAGER): Continue home xarelto Assessment & Plan (08/01/2022 10:57 AM CONTINUOUS IMPROVEMENT MANAGER): Continue home xarelto Assessment & Plan (07/31/2022 1:51 PM CONTINUOUS IMPROVEMENT MANAGER): Continue home xarelto Assessment & Plan (07/30/2022 1:33 PM CONTINUOUS IMPROVEMENT MANAGER): Continue home xarelto Assessment & Plan (07/27/2022 8:25 PM CONTINUOUS IMPROVEMENT MANAGER): Continue home xarelto Assessment & Plan (01/23/2022 [...] embolus less than 3 months ago no [place] details she has had numerous hospitalizations in [...] (10/27/2017): Added automatically from request for surgery [id number] Restless leg 10/18/2017 Assessment & Plan (08/03/2022 3:28 PM CONTINUOUS IMPROVEMENT MANAGER): Continue pramipexole Assessment & Plan (08/02/2022 2:23 PM CONTINUOUS IMPROVEMENT MANAGER): Continue pramipexole Assessment & Plan (08/01/2022 10:57 AM CONTINUOUS IMPROVEMENT MANAGER): Continue pramipexole Assessment & Plan (07/31/2022 1:51 PM CONTINUOUS IMPROVEMENT MANAGER): Continue pramipexole Assessment & Plan (07/30/2022 1:33 PM CONTINUOUS IMPROVEMENT MANAGER): Continue pramipexole Assessment & Plan (07/27/2022 8:23 PM CONTINUOUS IMPROVEMENT MANAGER): Continue pramipexole Assessment & Plan (12/17/2021 1:04 [...] 10/18/2017 Assessment & Plan (10/18/2017 6:00 PM CONTINUOUS IMPROVEMENT MANAGER): Informed patient today that she would need to comply with this office recommendations on management of her multiple chronic conditions, failure to do so, would mean that she would need to find another primary care provider. Chronic pain syndrome 10/18/2017 Assessment & Plan (12/17/2021 1:04 PM CDT): Chronic pain of bilateral legs s/p fracture, shoulder and back. On [place] 7.5-325 q6h prn at home - tylenol 1g q6h prn, oxycodone 10mg q6h prn - home gabapentin 100mg TID - scheduled and prn bowel regimen - started lidoderm patches for most painful area Assessment & Plan (12/16/2021 3:37 PM CDT): chronic pain of bilateral legs s/p fracture, shoulder and back. On [place] 7.5-325 q6h prn at home - tylenol 1g q6h prn, oxycodone 10mg q6h prn - home gabapentin 100mg TID - scheduled and prn bowel regimen - started lidoderm patches for most painful area Assessment & Plan (12/15/2021 10:05 AM CDT): chronic pain of bilateral legs s/p fracture, shoulder and back. On [place] 7.5-325 q6h prn at home - tylenol 1g q6h prn, oxycodone 10mg q6h prn - home gabapentin 100mg TID - scheduled and prn bowel regimen - started lidoderm patches for most painful area Assessment & Plan (12/14/2021 11:36 AM CDT): chronic pain of bilateral legs s/p fracture, shoulder and back. On [place] 7.5-325 q6h prn at home - tylenol 1g q6h prn, oxycodone 10mg q6h prn - home gabapentin 100mg TID - scheduled and prn bowel regimen - started lidoderm patches for most painful area Assessment & Plan (12/13/2021 10:36 AM CDT): chronic pain of bilateral legs s/p fracture, shoulder and back. On [place] 7.5-325 q6h prn at home - tylenol 1g q6h prn, oxycodone 10mg q6h prn - home gabapentin 100mg TID - scheduled and prn bowel regimen - started lidoderm patches for most painful area Assessment & Plan (12/12/2021 9:35 AM CDT): chronic pain of bilateral legs s/p fracture, shoulder and back. On [place] 7.5-325 q6h prn at home - tylenol [...] events Assessment & Plan (10/18/2017 5:57 PM CONTINUOUS IMPROVEMENT MANAGER): Referred to pain mgmt for further eval/tx. Wound dehiscence 10/18/2017 Assessment & Plan (10/18/2017 5:58 PM CONTINUOUS IMPROVEMENT MANAGER): Referral given 2 months ago to be seen by wound care. Patient did not follow up with them. Seizure disorder 07/20/2017 Assessment & Plan (08/03/2022 3:28 PM CONTINUOUS IMPROVEMENT MANAGER): Controlled. Continue home keppra & oxcarbazapine. Assessment & Plan (08/02/2022 2:23 PM CONTINUOUS IMPROVEMENT MANAGER): Controlled. Continue home keppra & oxcarbazapine. Assessment & Plan (08/01/2022 10:57 AM CONTINUOUS IMPROVEMENT MANAGER): Controlled. Continue home keppra & oxcarbazapine. Assessment & Plan (07/31/2022 1:51 PM CONTINUOUS IMPROVEMENT MANAGER): Controlled. Continue home keppra & oxcarbazapine. Assessment & Plan (07/30/2022 1:33 PM CONTINUOUS IMPROVEMENT MANAGER): Controlled. Continue home keppra & oxcarbazapine. Assessment & Plan (07/27/2022 8:25 PM CONTINUOUS IMPROVEMENT MANAGER): Controlled. Continue home keppra & oxcarbazapine. Assessment [...] on gabapentin patient was previously followed at [facility] in [facility]. Plans continue gabapentin this time Assessment & Plan (10/18/2017 5:56 PM CONTINUOUS IMPROVEMENT MANAGER): Self-reported, patient was referred to neurology 2 months ago immediately after she reported a seizure. Patient did not mellisa appt with neurology, patient encouraged to comply. Personality disorder 07/20/2017 Assessment & Plan (03/19/2018 2:33 PM CDT): Psychiatric referral made Assessment & Plan (10/18/2017 5:53 PM CONTINUOUS IMPROVEMENT MANAGER): Encouraged patient to f/u through with Psychiatry referral. Bipolar 1 disorder, depressed, mild 07/20/2017 Assessment & Plan (08/03/2022 3:17 PM CONTINUOUS IMPROVEMENT MANAGER): Symptoms controlled, cont home regimen of sertraline, Seroquel Assessment & Plan (08/02/2022 2:23 PM CONTINUOUS IMPROVEMENT MANAGER): Symptoms controlled, cont home regimen of sertraline, Seroquel Assessment & Plan (08/01/2022 10:56 AM CONTINUOUS IMPROVEMENT MANAGER): Symptoms controlled, cont home regimen of sertraline, Seroquel Assessment & Plan (07/31/2022 1:51 PM CONTINUOUS IMPROVEMENT MANAGER): Symptoms controlled, cont home regimen of sertraline, Seroquel Assessment & Plan (07/30/2022 1:33 PM CONTINUOUS IMPROVEMENT MANAGER): Symptoms controlled, cont home regimen of sertraline, Seroquel Assessment & Plan (07/29/2022 2:42 PM CONTINUOUS IMPROVEMENT MANAGER): Symptoms controlled, cont home regimen of sertraline, Seroquel Assessment & Plan (07/27/2022 8:23 PM CONTINUOUS IMPROVEMENT MANAGER): Symptoms controlled, cont home regimen of sertraline, [...] hallucinations. Assessment & Plan (10/18/2017 5:53 PM CONTINUOUS IMPROVEMENT MANAGER): Rx refills given. Encouraged patient to f/u [...] therapy Assessment & Plan (10/18/2017 5:51 PM CONTINUOUS IMPROVEMENT MANAGER): Hypertension is improving with treatment. Continue current treatment regimen. Dietary sodium restriction. Weight loss. Continue current medications. Blood pressure will be reassessed at the next regular appointment. Insomnia 07/20/2017 Assessment & Plan (10/18/2017 5:52 PM CONTINUOUS IMPROVEMENT MANAGER): Will not fill both trazodone AND ambien, [...] 07/20/2017 Assessment & Plan (10/18/2017 5:56 PM CONTINUOUS IMPROVEMENT MANAGER): Encouraged patient to follow through with nephrology referral she was given 2 months ago. Referral re-printed. Class 3 severe obesity with body mass index (BMI) greater than or equal to 70 in adult 07/20/2017 Assessment & Plan (08/03/2022 3:26 PM CONTINUOUS IMPROVEMENT MANAGER): Pt with severe obesity, complicated by SHELDON/OHS. Leg fractures in 2020 managed nonoperatively, pt has been bed bound and living in SNF since that time. Assessment & Plan (08/02/2022 2:23 PM CONTINUOUS IMPROVEMENT MANAGER): Pt with severe obesity, complicated by SHELDON/OHS. Leg fractures in 2020 managed nonoperatively, pt has been bed bound and living in SNF since that time. Assessment & Plan (08/01/2022 10:56 AM CONTINUOUS IMPROVEMENT MANAGER): Pt with severe obesity, complicated by SHELDON/OHS. Leg fractures in 2020 managed nonoperatively, pt has been bed bound and living in SNF since that time. Assessment & Plan (07/31/2022 1:51 PM CONTINUOUS IMPROVEMENT MANAGER): Pt with severe obesity, complicated by SHELDON/OHS. Leg fractures in 2020 managed nonoperatively, pt has been bed bound and living in SNF since that time. Assessment & Plan (07/30/2022 1:33 PM CONTINUOUS IMPROVEMENT MANAGER): Pt with severe obesity, complicated by SHELDON/OHS. Leg fractures in 2020 managed nonoperatively, pt has been bed bound and living in SNF since that time. Assessment & Plan (07/27/2022 8:25 PM CONTINUOUS IMPROVEMENT MANAGER): Pt with severe obesity, complicated by SHELDON/OHS. [...] abdomen. Assessment & Plan (10/18/2017 5:56 PM CONTINUOUS IMPROVEMENT MANAGER): Obesity is unchanged. Discussed the patient's BMI. [...] = 0.6 oz pur e alcohol) Occasional Right Relevance Utilities Answer Date Recorded In the past 12 months has [employer], gas, oil, or water iodine threatened to shut off services in your home? No 01/15/2025 Social Connection and Isolation Panel Answer Date Recorded In a typical week, how many times do you talk on the phone with family, friends, or neighbors? Once a week 01/15/2025 How often do you get together with friends or re latives? Once a week 01/15/2025 How often do you attend confucianism or sabianist serv ices? Never 01/15/2025 Do you belong to any clubs o r organizations such as confucianism groups, unions, fraternal or athletic groups, or [...] place to sleep or slept in a usp (including now)? No 07/30/2022 Housing Stability Vital Sign Answer Pepe e Recorded In the last 12 months, was t here a time when you were not able to pay the mortgage or rent on time? No 01/15/2025 In the past 12 months, how m any times have you moved where you were living? 0 01/15/2025 At any time in the past 12 m [facility], were you homeless or living in a usp (including now)? No 01/15/2025 Personal Safety Answer [...] 59.15 01/14/2025 4:59 PM CDT Results * Hepatitis panel, acute Blood (01/15/2025 3:30 PM CDT) Hep A IgM Nonreactive Nonreactive Comment: Interpretive Data: If Hep A IgM Ab is reported as Equivocal, a new sample should be drawn in two weeks for testing. Current interpretive data was last revised on 19. Hep B core IgM Nonreactive Nonreactive [facility] Comment: Interpretive Data If HepB Core IgM Ab is reported as Equivocal, a new sample should be drawn in two weeks for testing. Current interpretive data was last revised on 19. Hep C Ab Nonreactive Nonreactive [facility] Comment: Interpretive Data Nonreactive: Antibodies to HCV [...] last revised on 2019. HepBsAg Nonreactive Nonreactive [facility] Blood 01/15/2025 3:30 PM CDT 01/15/2025 4:03 PM CDT Ajith Cruz MD LAB MICROBIOLOGY - GENERAL OR DERABLES Final Result Performing Organization Address City/[facility]/ZIP Co de Phone Number JOHAN [address] [address] [place] Department [place] [address] * Occult blood, fecal non neoplasm screening (08/02/2017 7:41 AM CONTINUOUS IMPROVEMENT MANAGER) Pathologist [facility] Occult blood, fecal Negative Negative [facility] Collection date , feces [id number] [facility] Collection time 1, feces 739 [facility] Stool 08/02/2017 7:41 AM CONTINUOUS IMPROVEMENT MANAGER 08/02/2017 7:44 AM CONTINUOUS IMPROVEMENT MANAGER Pam Rivas MD LAB BODY FLUIDS AND STOOLS ORDER SARIKA Final Result [facility] [address] [facility] Department [place] [address] * MAMMOGRAPHY (01/11/2002) Pathologist [facility] Mammogram Normal Historical Provider HEALTH MAINTENANCE Final Result * COLONOSCOPY (10/14/2001) Pathologist [facility] Colonoscopy Unknown Historical Provider HEALTH MAINTENANCE Final Result from Last 3 Months or Most Recently Relevant to Health Maintenance
--- OUTSIDE RECORDS SUMMARY | 2025-04-23 14:19 | XMS_ITS | Encounter Summary ---
Author Organization [facility] Health Address [facility] [facility] [place] [address] Care Team Providers Care Clamp Carrier Operator Name Role Phone Terri Balderas MD Primary Care Provider [phone] Encounter Details Date Type Department Care Team (Late st Contact Info) Description 09/25/2024 Lab Requisition [facility] [address] [place] [address] [facility] [place] [id number] Social History Tobacco Use Types Packs/Day Years [...] and heating? Not hard at all 03/27/2024 [facility] of Occupat ional Health - Occupational Stress [...] Comments CREATININE BLOOD STAT 09/25/2024 7:00 PM [facility] documented in this encounter Results * (ABNORMAL) CREATININE BLOOD (09/25/2024 7:00 PM [facility]) Creatinine 4.74(H) 0.57 - 1.11 mg/dL 09/25/2024 8:18 PM [place] [facility] eGFR by CKD-EPI 10(L) >=90 mL/min/1.7 3 m2 09/25/2024 8:18 PM [place] [facility] Blood BLOOD SPECIMEN / Unknown Venipuncture / Unknown 09/25/2024 7:00 PM [facility] 09/25/2024 7:51 PM [facility] - CHEMISTRY ORDERABLES Adrianna mckeon Result [facility] [address] [place] [address] documented in this encounter Visit Diagnoses Not on filedocumented in this encounter Additional Health Concerns Infection Onset Date Last Indicated Resolved Time MRSA Hx Comment:nasal 2024 03/27/2024 ESBL GNR 03/26/2024 03/26/2024 MDRO 03/26/2024 03/26/2024 MRSA 03/26/2024 03/26/2024 documented as of this encounter Care Teams Clamp Carrier Operator Relationship Specialty Start Date End Date Terri Balderas MD [address] [place] [address] PCP - General Family Medicine 03/27/24 documented as of this encounter
--- OUTSIDE RECORDS SUMMARY | 2025-04-23 14:19 | XMS_ITS | Patient Health Record ---
Author Organization [facility] As [employer] [facility] Address [address] [place] [address] Care Team Providers Care Freight Traffic Consultant Name Role Phone Juan Madsen Unavailable [phone] Reason For Referral No Information Plan Of Treatment No Information Insurance Providers Payer Name Payer Address Payer Phone Subscriber Number Group Number Insured Name Patient Relationship to Insured Coverage Start Date Coverage End Date [employer] [address] [place] [address] [id number] FADIA ARROYO Self - patient is the insured
--- OUTSIDE RECORDS SUMMARY | 2025-04-23 14:19 | XMS_ITS | Patient Health Record ---
Author Organization [facility] Address [address] [place] [id number] Care Team Providers Care Storekeeper Helper Name Role Phone Anastacio Mehta Primary Care Provider Alex Salazar Unavailable [phone] ALLERGIES Allergen (clinical drug ingredient) Drug/Non Drug [...] Active confirmed Chronic kidney disease stage 3 (672408054) Problem Essential (primary) hypertension (I10) Active confirmed Essential hypertension (24011264) Problem Proteinuria, unspecified (R80.9) Active confirmed Proteinuria (40788394) Problem Type 2 diabetes mellitus with other diabetic kidney complication (E11.29) Active confirmed Diabetic renal disease (465953493) Problem Morbid (severe) obesity due to excess calories (E66.01) Active confirmed Morbid obesity (672229079) Problem Type 2 diabetes mellitus with diabetic chronic kidney disease (E11.22) Active confirmed Diabetic renal disease (327315618) PLAN OF TREATMENT Future Test Test Name Order Date Urinalysis, Routine 10/26/2016 PTH, Intact 10/26/2016 RENAL PANEL 10/26/2016 Vitamin D, 25-Hydroxy 10/26/2016 URINE PROTEIN W/CREAT RATIO 10/26/2016 Insurance Providers Payer Name Payer Address Payer Phone Subscriber Number Group Number Insured Name Patient Relationship to Insured Coverage Start Date Coverage End Date [place] [address] [place] [address] [id number] Cathy Greene Self - patient is the insured MEDICAL (GENERAL) HISTORY Medical History History ICD Code CKD Stage III Hypertension Anemia Diabetes Mellitus Peripheral Neuroopathy Fibromyalgia Obesity Morbid Osteoarthritis Knee Restless Leg Syndrome Surgical History Surgery Date(Month/Year) Laparoscopic Hysterectomy
--- OUTSIDE RECORDS SUMMARY | 2025-04-23 14:19 | XMS_ITS | Encounter Summary ---
Author Organization [facility] Address [address] [place] [address] Phone Care Team Providers Care Candy Rolling Machine Operator Name Role Phone Provider, None Primary Care Provider Unavailabl e Encounter Details Date Type Department Care Team (Late st Contact Info) Description 10/06/2024 Telephone [facility] [address] [place] [phone] Satish Fontanez MD [address] [facility] [address] [place] [address] Social History Tobacco Use Types Packs/Day Years Used Date Smoking Tobacco: Every Day Cigarettes Smokeless Tobacco: Never Alcohol Use Standard Drinks/Week Comments No 0 (1 standard drink = 0.6 oz pur e alcohol) [facility] Utilities Answer Date Recorded In the past [address] [facility] [employer], gas, oil, or water [employer] threatened to shut off services in your [...] often do you attend chur ch or presybeterian services? Patient unable to answer 09/27/2024 Active [...] and heating? Patient unable to answer 09/27/2024 [facility] of Occupat ional Health - [...] or living in a fdc (including now)? Patient unable to answer 09/27/2024 [...] Time ESBL Comment:Added from external infection. Source: [facility]. 03/26/2024 08/28/2024 11/27/2024 8:53 A M CDT MRSA 07/01/2024 07/01/2024 11/28/2024 8:31 AM CDT ESBL Comment:Added from external infection. Source: [facility]. 11/02/2024 documented as of this encounter Care Teams Candy Rolling Machine Operator Relationship Specialty Start Date End Date Provider, None [place] PCP - General 11/24/24 documented as of this encounter
--- OUTSIDE RECORDS SUMMARY | 2025-04-23 14:19 | XMS_ITS | Clinical Summary ---
Author Organization [facility] Address [address] [place] [address] Care Team Providers Care American Indian Policy Specialist Name Role Phone Omar Pugh Primary Care Provider [phone] Allergies Active Allergy Reactions Criticality Noted Date Comments Penicillins Unknown Medium 08/09/2019 Patient Stated That she took Amoxicillin prescription picked up from [facility] on 05/19/19 with no problems. [...] Acute renal failure 05/27/2024 Acute respiratory failure ([facility]) 10/2022 Acute hypercapnic respiratory failure ([facility]) 07/15/2023 Acute on chronic respiratory failure ([facility]) 12/12/2022 Acute on chronic anemia 12/10/2022 Debility 06/20/2021 Chronic diastolic CHF (conge stive heart failure) ([facility]) 04/02/2021 Chronic GERD 04/02/2021 Chronic respiratory failure with hypoxia ([facility]) 04/02/2021 Peripheral neuropathy 04/02/2021 Right knee pain 04/02/2021 Impaired mobility 03/28/2021 Respiratory failure ([facility]) 01/22/2021 Tibia fracture 12/13/2020 At high risk for complication of immobility 07/16 Cellulitis of left lower extremity 08/12/2019 Pain and swelling of left lower leg 08/12/2019 Hydronephrosis, left 08/10/2019 Severe episode of recurrent major depressive disorder, without psychotic features ([facility]) 12/12/2018 Atypical chest pain 12/10/2018 Obstructive sleep apnea 12/10/2018 Paroxysmal atrial fibrillation ([facility]) 12/10/2018 Subclinical hypothyroidism 12/10/2018 Acute respiratory failure with hypoxia ([facility]) 12/01/2018 YAYA (acute kidney injury) 12/01/2018 Aspiration pneumonia ([facility]) 9 Cal[address]ne overdose 12/01/2018 Encephalopathy, toxic 12/01/2018 Intentional overdose of drug in tablet form ([facility]) 12/01/2018 Neck pain, musculoskeletal 04/19/2018 Overview (08/12/2019): [...] embolus less than 3 months ago no [place] details she has had numerous hospitalizations in [...] red meat Bipolar 1 disorder, depressed, mild ([facility]) 07/20/2017 Overview (08/12/2019): Last Assessment [...] she informs me that Dr. Panda in [facility] is willing to move this pannus [...] 2 months ago. Referral re-printed. Personality disorder ([facility]) 7 Overview (08/12/2019): Last Assessment & Plan: Psychiatric referral made Recurrent major depressive disorder, in partial remission 07/20/2017 Seizures ([facility]) 07/20/2017 Overview (08/12/2019): Last Assessment & Plan: Patient gives a history of seizure disorder going back several years no seizures in the past 8 months she is on gabapentin patient was previously followed at [facility] in [facility]. Plans continue gabapentin this time Motor [...] from your doctor or pharmacy? Always 05/26/2024 [facility] [employer] Answer Date Recorded In the past 12 months has e [employer], gas, oil, or water [employer] threatened to shut off services in your [...] place to sleep or slept in a detention (including now)? No 07/20/2023 Housing Stability Vital [...] any time in the past 12 m [facility], were you homeless or living in a detention (including now)? Patient unable to answer 05/29/2024 Comments No Sex and Gender Information Value Date Recorded Sex Assigned at Female 11/28/2024 8:51 AM CDT Legal Sex Female 9:48 PM CULINARY ARTS INSTRUCTOR Gender Identity Not on file Sexual Orientation [...] Montesinos RN Medical Devices Implanted Type Area Casino Manager Device Identifier Shelf Expiration Date Model / Serial / Lot Nail Shefali Tibial Yellow 09.3 X 34cm - [id number] Implanted:Qty: 1 on 12/15/2020 by Aditya Meyer MD at [facility] Nail Left: Tibia [employer] [id number] 10/12/2030 [id number] / / [id number] Plate 1/3 Tubular Shefali 6 Hole - [id number] Implanted:Qty: 1 on 12/15/2020 by Aditya Meyer MD at [facility] Plate Right: Tibia [employer] [id number] / / Screw Cortical Shefali Prox Dist F/T 5.0 X 35mm - [id number] Implanted:Qty: 1 on 12/15/2020 by Aditya Meyer MD at [facility] Screw Left: Tib[employer] [id number] 05/04/2030 [id number] / / [id number] Screw Cortical Shefali 3.5 X 55mm - [id number] Implanted:Qty: 1 on 12/15/2020 by Aditya Meyer MD at [facility] Screw Right: Tib[employer] [id number] / / Screw Cortical Shefali 3.5 X 14mm - [id number] Implanted:Qty: 1 on 12/15/2020 by Aditya Meyer MD at [facility] Screw Right: [employer] [id number] / / Screw Cortical Shefali F/T 5.0 X 60mm - [id number] Implanted:Qty: 1 on 12/15/2020 by Aditya Meyer MD at [facility] Screw Left: Tib[employer] [id number] 12/11/2022 [id number] / / [id number] Screw Cortical Shefali Prox Dist F/T 5.0 X 32.5mm - [id number] Implanted:Qty: 1 on 12/15/2020 by Aditya Meyer MD at [facility] Screw Left: [employer] [id number] 05/27/2030 [id number] / / [id number] Screw Cortical Shefali Prox Dist F/T 5.0 X 27.5mm - [id number] Implanted:Qty: 1 on 12/15/2020 by Aditya Meyer MD at [facility] Screw Left: Tib[employer] [id number] 03/12/2030 [id number] / / [id number] Screw Cortical Shefali Prox Dist 5.0 X 42.5mm - [id number] Implanted:Qty: 1 on 12/15/2020 by Aditya Meyer MD at [facility] Screw Left: Tibia [employer] [id number] 07/13/2028 [id number] / / [id number] Stent Cook Ureteral Filaform 6 Fr X 24cm - [id number] Implanted:Qty: 1 on 08/11/2019 by See Manzanares MD at [facility] Left: Ureter [employer] 05/30/2022 [id number] / / 100 3.5 X 50mm Screw Implanted:Qty: 1 on 12/15/2020 by Aditya Meyer MD at [facility] Right: Tibia [employer] [id number] / / 3.5 X 45mm Screw Implanted:Qty: 1 on 12/15/2020 by Aditya Meyer MD at [facility] Right: Tibia [employer] [id number] / / Explanted Type Area Casino Manager Device Identifier Shelf Expiration Date Model / Serial / Lot Drill Bit Shefali 4.3 - [id number] Explanted:Qty: 2 on 12/15/2020 at [facility] Drill Left: Tibia [employer] [id number] / / N/A Drill Bit Shefali Tib/Hum Faustino 4.3mm - [id number] Explanted:Qty: 1 on 12/15/2020 by Aditya Meyer MD at [facility] Drill Left: Tibia [employer] [id number] / / N/A Drill Bit Shefali 2.5mm - [id number] Explanted:Qty: 1 on 12/15/2020 by Aditya Meyer MD at [facility] Drill Left: [employer] [id number] / / N/A Pin Shefali 3.0mm Threaded - [id number] Explanted:Qty: 2 on 12/15/2020 at [facility] Pin Left: Tib[employer] [id number] / / N/A Ball Nose Guide Wire Explanted:Qty: 1 on 12/15/2020 by Aditya Meyer MD at [facility] Left: Tibia [employer] 10/25/2030 [id number] / / [id number] Procedures Procedure Name Priority Date/Time Associated Diagnosis Comments LIPID PANEL Routine 09/19/2019 11:30 AM CULINARY ARTS INSTRUCTOR Essential hypertension History of type 2 diabetes mellitus Hyperlipidemia Atrial fibrillation Anemia from Last 3 Months or Most Recently Relevant to Health Maintenance Results * (ABNORMAL) LIPID PANEL (09/19/2019 11:30 AM CULINARY ARTS INSTRUCTOR) CHOLESTEROL 175 <200 MG/DL 09/19/2019 11:52 AM [facility] Comment: THE NATIONAL LIPID ASSOCIATION AND THE NATIONAL CHOLESTEROL EDUCATION PROGRAM (NCEP) HAVE SET THE FOLLOWING GUIDELINES FOR TOTAL CHOLESTEROL IN ADULTS AGES 18 AND UP. DESIRABLE: <200 BORDERLINE HIGH: 200-239 HIGH: > OR = 240 TRIGLYCERIDES 250(H) <150 MG/DL 09/19/2019 11:52 AM [facility] Comment: THE NATIONAL LIPID ASSOCIATION AND THE NATIONAL CHOLESTEROL EDUCATION PROGAM (NCEP) HAVE SET THE FOLLOWING GUIDELINES FOR TRIGLYCERIDES IN ADULTS AGES 18 AND UP. NORMAL: <150 BORDERLINE HIGH: 150 TO 199 HIGH: 200 TO 499 VERY HIGH: >499 HDL 43(L) >49 MG/DL 09/19/2019 11:52 AM [facility] Comment: THE NATIONAL LIPID ASSOCIATION AND THE NATIONAL CHOLESTEROL EDUCATION PROGAM (NCEP) HAVE SET THE FOLLOWING GUIDELINES FOR HDL CHOLESTEROL IN ADULTS AGES 18 AND UP. MALES: >39 FEMALES: >49 LDL (CALCULATED) 82 <100 MG/DL 09/19/19 11:52 AM [facility] Comment: THE NATIONAL LIPID ASSOCIATION AND THE NATIONAL CHOLESTEROL EDUCATION PROGAM (NCEP) HAVE SET THE FOLLOWING GUIDELINES FOR LDL CHOLESTEROL IN ADULTS AGES 18 AND UP. DESIRABLE: <100 ABOVE DESIRABLE: 100 TO 129 BORDERLINE HIGH: 130 TO 159 HIGH: 160 TO 189 VERY HIGH: >189 VLDL CALCULATION 50 MG/DL 09/19/19 11:52 AM [facility] Comment:REFERENCE RANGE NOT ESTABLISHED CHOL/HDL RATIO 4.1 09/19/2019 11:52 AM [facility] Comment:REFERENCE RANGE NOT ESTABLISHED LDL/HDL 1.9 09/19/2019 11:52 AM CULINARY ARTS INSTRUCTOR [facility] Comment:REFERENCE RANGE NOT ESTABLISHED NON HDL CHOLESTEROL 132 MG/DL 09/19/2019 11:52 AM CULINARY ARTS INSTRUCTOR [facility] Comment:REFERENCE RANGE NOT ESTABLISHED 09/19/2019 11:3 0 AM CULINARY ARTS INSTRUCTOR [facility] Final Re sult [facility] [address] [place] [address], from Last 3 Months or Most Recently Relevant to Health Maintenance Additional Health Concerns Infection Onset Date Last Indicated MRSA Comment:Added from external infection. 07/28/2022 07/15/2023 ESBL - Extended Spectrum Bet a-lactamase Comment:Added from external infection. Source: 03/26/24 [facility]. 03/26/2024 06/03/2024 Insurance AETNA MEDICAID AETNA MEDICAID Advance Directives Documents on File Type Date Recorded Patient Office Spec Expl anation Advance Directives and Living Will [...] 4:50 PM 07/26/2023 8:30 PM Care Teams American Indian Policy Specialist Relationship Specialty [place] [address] [place], [place] [address] PCP - General PHYSICIAN OPERATIONAL INTELLIGENCE OFFICER 03/07/23
[2025-04-23 14:46] LABS: Alveolar/Arterial O2 Gradient 229.7 mmHg; Carboxyhemoglobin 1.0 % THb (0-2.0); Fractional Inspired Oxygen 70 %; HCO3 ABG 24.9 mEq/l (22.0-26.0); Methemoglobin ABG 0.2 %THb (0-1.5); Modified Allen's Test Pass; Oxygen Content ABG 15.0 %vol (16.0-22.0); Oxygen Saturation ABG 99.4 % (95.0-100.0); PCO2 ABG 49.5 mmHg (35.0-45.0); PO2 ABG 216.2 mmHg (80.0-100.0); PO2 FiO2 Ratio Arterial Blood 3.09 %; Reduced Hemoglobin 0.5 %THb (0-5.0); Site Drawn RIGHT RADIAL
[2025-04-23 14:50] LABS: Hematocrit 33.6 % (37.0-47.0); Hemoglobin 9.7 g/dL (12.0-15.0); Immature Granulocyte Percent A 0.4 % (0-0.5); Lymphocytes Absolute Auto 0.66 K/mm3 (0.9-3.2); Mean Corpuscular HGB Conc 28.9 g/dl (32-36); Mean Corpuscular Hemoglobin 28.4 pg (26-34); Mean Corpuscular Volume 98.2 fl (80-100); Nucleated Red Blood Cells Absolute Auto 0.000 K/mm3 (0.0-0.012); Nucleated Red Blood Cells Perc 0.0 % (0.0-0.2); Platelet Count Result 157 k/mm3 (150-375); Red Blood Count 3.42 M/mm3 (4.2-5.4); White Blood Count 9.6 K/mm3 (4.5-10.0)
[2025-04-23 15:07] LABS: Alanine Aminotransferase 11 U/L (6-35); Albumin Level 4.1 g/dL (3.5-5.1); Alkaline Phosphatase 99 U/L (38-126); Anion Gap 13 mmol/L (4-12); Aspartate Amino Transferase 20 U/L (14-36); Bilirubin,Total 0.5 mg/dL (0.2-1.3); Blood Urea Nitrogen 73 mg/dL (7-17); Calcium 8.4 mg/dL (8.4-10.2); Carbon Dioxide 28 mmol/L (22-30); Chloride 98 mmol/L (98-107); Estimated Glomerular Filt Rate 7; Glucose 123 mg/dL (65-110); Potassium 5.0 mmol/L (3.4-5.0); Sodium 139 mmol/L (137-145); Total Protein 7.2 g/dL (6.3-8.2)
[2025-04-23 15:13] LABS: Anisocytosis 2+; Band Neutrophils Percent 0 % (0-6); Hypochromasia 1+; Schistocytes None Seen
--- NOTE | 2025-04-23 15:39 | P.HP_ITS ---
H&P: HPI History of Present Illness Date/Time: 04/23/25 15:39 Chief Complaint: Shortness of breath Narrative: 65-year-old female with past medical history of COPD, COPD, congestive heart failure, seizures and end-stage renal disease on hemodialysis Wednesday presents the hospital with shortness of breath. Patient states that she was unable to go to dialysis today due to increased shortness of breath and EMS was called. Patient complains of a dry cough. She states that has been going on for the last 3 days. Patient denies fever chills, nausea or vomiting. Lab work shows hemoglobin of 9.7, ABG shows pH is 7.3, pCO2 of 49, PO2 of 216, bicarb of 24, on BiPAP, anion gap 13, BUN 73, creatinine 6.2, GFR 7. Chest x- ray shows chest x-ray shows edema versus pneumonia and a confluent opacity that could be pleural fluid versus atelectasis versus consolidation versus possible mass. Nephrology consulted. Review of Systems Review of Systems: 12 systems were reviewed and are negativ e except for as per HPI. [facility] Past Medical History Medical History (Updated 04/23/25 @ 21:38 by Yogi Mascorro MD) Occult blood in stools Acute on chronic anemia Seizure disorder Immobility Rheumatoid arthritis PAF (paroxysmal atrial fibrillation) Fibromyalgia Gout Obesity hypoventilation syndrome SHELDON (obstructive sleep apnea) Chronic respiratory failure with hypoxia Atrial fibrillation COPD (chronic obstructive pulmonary disease) Diastolic heart failure Bipolar 1 disorder Anxiety and depression Left renal mass suspected malignancy Nephrolithiasis End stage renal disease ESRD on dialysis CHF (congestive heart failure) HTN (hypertension) COPD (chronic obstructive pulmonary disease) Surgical History Surgical History History of cystoscopy S/P ureteral reimplantation History of hysterectomy S/P hemodialysis catheter insertion Family History Family History Father Lung cancer Grandparent Colon cancer Mother Congestive heart failure Social History Social History Smoking packs per day: 0.5 Smoking cigarettes per day: 10.0 Years smoked: 10 Smoking pack-years: 5.00 Smoking status: Never smoker Tobacco type: cigarettes Second hand tobacco smoke exposure: Yes Alcohol intake: never Substance use: never Substance use type: does not use Last use: 06/13/21 Do You Feel Safe in your Home?: Yes Lack of Transportation: No Lack of Food: Never True Current Housing: I Have Housing Concerned About Future Housing: No Difficulty Paying Gas/Electric Bills: No Difficulty Paying for Meds: No Currently Unemployed: No Education: High School Diploma/GED Difficulty w/ Childcare or Family Care: No Gender identity (if verbalized by the patient): Female Sexual Orientation (if Verbalized by the Patient): Straight or Heterosexual Spiritual care concerns: No Meds Home Medications and Allergies Home Medications ?Medication ?Instructions ?Recorded ?Confirmed ?Type atorvastatin 40 mg tablet 40 mg PO QHS 06/30/21 04/23/25 History ferrous sulfate 325 mg (65 mg 325 mg PO DAILY 06/30/21 04/23/25 History iron) tablet fluticasone propionate 50 1 spray intranasal DAILY 06/30/21 04/23/25 History mcg/actuation nasal spray,suspension hydrocodone 5 mg-acetaminophen 325 1 tablet PO Q8H PRN Pain Rated 4-6 06/30/21 04/23/25 History mg tablet levetiracetam 500 mg tablet 500 mg PO BID 06/30/21 04/23/25 History acetaminophen 325 mg tablet 650 mg PO Q6H PRN fever or pain 01/13/25 04/23/25 History (Aminofen) albuterol 90 mcg-budesonide 80 2 inh inhalation .every 6 hours 01/13/25 04/23/25 History mcg/actuation HFA aerosol inhaler PRN shortness of breath or wheezing (Airsupra) baclofen 5 mg tablet 5 mg PO BID 01/13/25 04/23/25 History cholecalciferol (vitamin D3) 50 2,000 unit PO DAILY 01/13/25 04/23/25 History mcg (2,000 unit) capsule diclofenac sodium 1 % topical gel 1 ea topical Q6H PRN pain 01/13/25 04/23/25 History (Arthritis Pain (diclofenac)) diphenhydramine HCl 25 mg capsule 50 mg PO Q8H PRN allergy symptoms 01/13/25 04/23/25 History (Aler-Cap) ergocalciferol (vitamin D2) 1,250 1,250 mcg PO WEEKLY 01/13/25 04/23/25 History mcg (50,000 unit) capsule escitalopram oxalate 10 mg tablet 20 mg PO DAILY 01/13/25 04/23/25 History hydroxyzine HCl 25 mg tablet 25 mg PO TID 01/13/25 04/23/25 History ipratropium 0.5 mg-albuterol 3 mg 3 ml inhalation Q2H PRN shortness 01/13/25 04/23/25 History (2.5 mg base)/3 mL nebulization of breath soln lactulose 10 gram/15 mL oral 20 g PO DAILY 01/13/25 04/23/25 History solution (Enulose) gabapentin 100 mg capsule 100 mg PO BID 04/06/25 04/23/25 History insulin aspart U-100 100 unit/mL 1 sliding scale dose subcut 04/06/25 04/23/25 History (3 mL) subcutaneous pen (Novolog .before meals FlexPen U-100 Insulin aspart) midodrine 5 mg tablet 5 mg PO .COMPLEX 04/06/25 04/23/25 History montelukast 10 mg tablet 10 mg PO DAILY 04/06/25 04/23/25 History nystatin 100,000 unit/gram topical 1 applic topical BID 04/06/25 04/23/25 History powder ondansetron HCl 4 mg tablet 4 mg PO Q8H PRN nausea and vomiting 04/06/25 04/23/25 History oxcarbazepine 150 mg tablet 150 mg PO BID 04/06/25 04/23/25 History quetiapine 25 mg tablet 50 mg PO HS 04/06/25 04/23/25 History trazodone 50 mg tablet 50 mg PO HS 04/06/25 04/23/25 History cyanocobalamin (vitamin B-12) 1,000 mcg PO DAILY 04/07/25 04/23/25 History 1,000 mcg tablet (Vitamin B-12) [id number] 2.5 15 ml PO Q6H PRN cough 04/07/25 04/23/25 History mg-5 mg-50 mg/5 mL oral liquid (Robitussin Cough and Cold CF) Allergies Allergy/AdvReac Type Severity Reaction Status Date / Time Penicillins Allergy Severe Anaphylaxis Verified 04/07/25 00:09 Vital Signs Vital Signs - 24 hr 04/23/25 13:47 04/23/25 13:59 04/23/25 14:04 Pulse Rate 76 73 Respiratory Rate 16 16 Blood Pressure 143/82 H Pulse Oximetry 98 96 100 Oxygen Delivery CPAP BiPAP BiPAP Oxygen Flow Rate 15 04/23/25 14:32 Pulse Rate 70 Respiratory Rate Blood Pressure Pulse Oximetry 99 Oxygen Delivery Oxygen Flow Rate Exam Narrative: General: well appearing, appears stated age. HEENT: normocephalic, atraumatic. Mucous membranes moist. EOMI, PERRLA, bilateral sclera anicteric, no conjunctival injection. Neck supple without JVD, lymphadenopathy, or bruit. Right subclavian tunneled dialysis catheter Respiratory: clear to ascultation bilaterally. No rales/rhonic/wheezes. Cardiovascular: Regular rate and rhythm, normal S1-S2 upon ascultation. No murmurs, rubs, or clicks. PMI is nondisplaced, capillary refill less than 3 second. Abdomen: Obese Soft, round, no pulsatile masses, nondistended and nontender. No rebound, no guarding. No CVA tenderness, no hepatosplenomegaly. Bowel sounds present to all four quadrants. No high pitch or tinkling sounds, resonant to percussion. Extremities: No cyanosis, clubbing, or edema present. Pulses are palpable 2/2. Active ROM to all four extremities. Neuro: Alert and orientated x 4. PERRLA. Cranial nerves 2-12 intact without focal deficit. Skin: Warm, dry, and intact, without rash, erythema, or lesion. Psych: pleasant, cooperative, normal speech, normal affect, no hallucinations, no dysarthia H&P: Results Labs Labs: Short CBC 04/23/25 Range/Units 14:30 WBC 9.6 (4.5-10.0) K/mm3 Hgb 9.7 L (12.0-15.0) g/dL Hct 33.6 L (37.0-47.0) % Plt Count 157 (150-375) k/mm3 BMP 04/23/25 14:30 Sodium 139 Potassium 5.0 Chloride 98 Carbon Dioxide 28 BUN 73 H D Creatinine 6.20 H Glucose 123 H Calcium 8.4 Liver Function 04/23/25 Range/Units 14:30 Total Bilirubin 0.5 (0.2-1.3) mg/dL AST 20 (14-36) U/L ALT 11 (6-35) U/L Alkaline Phosphatase 99 (38-126) U/L Albumin 4.1 (3.5-5.1) g/dL Assessment and Plan Assessment and plan (1) Acute exacerbation of chronic obstructive airways disease: Code(s): J44.1 - Chronic obstructive pulmonary disease with (acute) exacerbation Status: Acute Assessment and Plan: Levofloxacin DuoNeb Solu-Medrol x1 followed by prednisone Full-thickness in (2) CHF (congestive heart failure): Qualifiers: Heart failure chronicity: unspecified Heart failure type: unspecified Qualified Code(s): I50.9 - Heart failure, unspecified Code(s): I50.9 - Heart failure, unspecified Status: Acute Assessment and Plan: Managed by dialysis Improved after dialysis (3) Acute respiratory failure: Code(s): J96.00 - Acute respiratory failure, unspecified whether with hypoxia or hypercapnia Status: Acute Assessment and Plan: Secondary to above (4) End stage renal disease: Code(s): N18.6 - End stage renal disease Status: Chronic Assessment and Plan: On hemodialysis Wednesday Nephrology consulted Plan for dialysis today (5) Left renal mass: Code(s): N28.89 - Other specified disorders of kidney and ureter Status: Chronic Assessment and Plan: Previously seen on abdominal ultrasound from 04/08/2025 unchanged Patient has already been seen by Urology for this has deemed to be a poor surgical candidate (6) Bipolar 1 disorder: Code(s): F31.9 - Bipolar disorder, unspecified Status: Chronic Assessment and Plan: Continue Seroquel, Atarax Quality VTE Prophylaxis VTE prophylaxis: mechanical ordered Hospitalist MIPS Advance Care Plan I have confirmed that the patient's Advanced Care Plan is present, code status is documented, or surrogate decision maker is listed in patient medical record.: Yes Medication Reconciliation I have utilized all available resources to obtain, update and review the patients current medications (includes all prescriptions, OTC, herbals, cannabis, and nutritional supplements).: Yes
[2025-04-23] MEDS: levoFLOXacin 750 MG/D5W 150 ML 750 MG/150 ML BAG 100 MG IVPB (16:39)
--- NOTE | 2025-04-23 16:59 | ADMGEN ---
This patient, Cathy Greene, was admitted to IMU Room 232-01. Patient/family oriented to hospital policies and general routines including ID bracelet, bed and alarms, visiting hours, pain management, procedures, bathroom and other care routines, personal items, smoking policy, room service/diet, and visiting hours. Information on how to activate the Rapid Response Team has been discussed. Patient/Family are encouraged to report perceived risks to care and to ask questions if they do not understand what they are told or what they should do.
--- NOTE | 2025-04-23 18:10 | P.CONNP_ITS ---
Assessment and Plan Assessment and plan (1) End stage renal disease: Code(s): N18.6 - End stage renal disease Status: Chronic Assessment and Plan: * plan HD tomorrow * continue outpatient schedule of Mondays, Wednesdays, and Fridays while hospitalized * follow electrolytes, volume status, and clearance (2) Volume overload: Code(s): E87.70 - Fluid overload, unspecified Status: Acute Assessment and Plan: * admission CXR concerning for edema * dry ultrafiltration session today for fluid removal * plan ongoing fluid removal with dialysis as tolerated by hemodynamics * continue current therapy/interventions (3) Acute on chronic hypoxic respiratory failure: Code(s): J96.21 - Acute and chronic respiratory failure with hypoxia Status: Acute Assessment and Plan: * acute component likely precipitated by #2 * however, multifactorial etiology: * COPD * asthma * SHELDON * OHS * CHF * pulmonary edema * on chronic supplemental oxygen * [facility] * continue supportive therapy (4) CHF (congestive heart failure): Qualifiers: Heart failure chronicity: unspecified Heart failure type: unspecified Qualified Code(s): I50.9 - Heart failure, unspecified Code(s): I50.9 - Heart failure, unspecified Status: Acute Assessment and Plan: * first noted in 2020 if not longer * Echo at that time with evidence of chronic diastolic dysfunction * recent Echo (March 2025) noted: * normal biventricular size and systolic function * valves are not well visualized in this study for overall appears to not have any significant valvular abnormalities in the visualized acoustic window * fluid removal with dialysis to maintain euvolemia (5) Anemia: Qualifiers: Anemia type: due to chronic kidney disease Chronic kidney disease stage: on chronic dialysis Qualified Code(s): N18.6 - End stage renal disease; D63.1 - Anemia in chronic kidney disease; Z99.2 - Dependence on renal dialysis Code(s): D64.9 - Anemia, unspecified Status: Acute Assessment and Plan: * partly due to ESRD * GI evaluation noted on recent hospitalizationhowever, guaiac positive stool noted * EGD (on 04/11): only mild gastritis noted * no evidence of iron deficiency by anemia studies by last check * high dose Epogen with dialysis * follow trend of H/H (6) HTN (hypertension): Qualifiers: Hypertension type: unspecified Qualified Code(s): I10 - Essential (primary) hypertension Code(s): I10 - Essential (primary) hypertension Status: Chronic Assessment and Plan: * reasonable control * off antihypertensives at this time * on midodrine for dialysis purposes (7) Bipolar 1 disorder: Code(s): F31.9 - Bipolar disorder, unspecified Status: Chronic Assessment and Plan: * continue Seroquel (8) Left renal mass: Code(s): N28.89 - Other specified disorders of kidney and ureter Status: Chronic Assessment and Plan: * follows with Urology as an outpatient (concern is for malignancy) * per review of outside records, deemed to be a poor surgical candidate I will continue to follow the patient with you while she remains hospitalized and make further recommendations as deemed necessary. Thank you for allowing me to participate in the care of this patient. L History of Present Illness Reason for Consult Consult date: 04/23/25 Reason for consult: end stage renal disease Chief Complaint Chief complaint: hypoxia,fluid overload History of Present Illness Narrative: The patient is a 65-year-old female with an extensive medical history as outlined below who presented to [facility] ER from her nursing facility for shortness of breath. The patient states that she has had worsening/increasing shortness breath over the last 2 - 3 days if not longer in association with a dry cough. Apparently, due to these complains along with generalized weakness, she did not got to her regularly scheduled dialysis treatment earlier today. According to nursing staff, her shortness of breath continued to worsen and was associated with hypoxia. No reported fevers, chills, nausea, or vomiting. EMS was called due to these issues and subsequently transferred to the ER for further assessment. Workup and evaluation emergency room demonstrated the patient to be hemodynamically stable but with evidence of hypoxia and mild respiratory distress. She was placed on BiPAP therapy and this seemed to improve her respiratory status and maintain her oxygen saturations. Routine blood tests were performed which demonstrated a normal CBC, relative anemia with a hemoglobin 9.7, and a chemistry panel consistent with her known history of end- stage renal disease without any critical electrolyte abnormalities. Her ABG showed a pH of 7.3, pCO2 of 49, PO2 of 216 and a bicarb of 24 on current BiPAP settings. Her chest x-ray showed edema versus pneumonia with a confluent opacity that could be pleural fluid versus atelectasis versus consolidation versus a possible mass. Given her clinical presentation, it was felt that her chest x-ray findings were more consistent with pulmonary edema/volume overload. She was subsequently admitted to the hospital for further evaluation and therapy. Renal consultation was requested due to her end-stage renal disease. The patient is somewhat familiar to me as I take care her with regard to her ESRD needs. Since her initiation on renal replacement therapy/dialysis, the [facility] for acute on chronic respiratory failure in conjunction with altered mental status with some of these admissions requiring intubation and mechanical ventilation related to CO2 narcosis and infection. She was just recently hospitalized here at [facility] about a week ago for similar issues although her respiratory status improved with aggressive ultrafiltration/fluid removal with more frequent dialysis treatments prior to discharge. She was also treated for complex urinary tract infection requiring IV antibiotics and there was some concern for possible GI bleed but GI evaluation did not demonstrate any significant findings and her hemoglobin remains stable with supportive therapy. Her last outpatient dialysis treatment was on 04/20/2025 and is due for dialysis today. Currently, at the time my visit, she is on BiPAP therapy and tolerating dry ultrafiltration for fluid removal to hopefully stabilize her respiratory status (seen on DUF at 6:00pm). Review of Systems 2 Review of Systems: As per HPI. [facility] Past Medical History Medical History (Updated 04/24/25 @ 12:05 by Rosalio Calix MD) Occult blood in stools Acute on chronic anemia ESRD on dialysis Seizure disorder Immobility Rheumatoid arthritis PAF (paroxysmal atrial fibrillation) Fibromyalgia Gout Obesity hypoventilation syndrome SHELDON (obstructive sleep apnea) Chronic respiratory failure with hypoxia Atrial fibrillation COPD (chronic obstructive pulmonary disease) Diastolic heart failure Bipolar 1 disorder Anxiety and depression Left renal mass suspected malignancy Nephrolithiasis End stage renal disease CHF (congestive heart failure) HTN (hypertension) COPD (chronic obstructive pulmonary disease) Surgical History Surgical History History of cystoscopy S/P ureteral reimplantation History of hysterectomy S/P hemodialysis catheter insertion Family History Family History Father Lung cancer Grandparent Colon cancer Mother Congestive heart failure Social History Social History Smoking packs per day: 0.5 Smoking cigarettes per day: 10.0 Years smoked: 10 Smoking pack-years: 5.00 Smoking status: Never smoker Tobacco type: cigarettes Second hand tobacco smoke exposure: Yes Alcohol intake: never Substance use: never Substance use type: does not use Last use: 06/13/21 Do You Feel Safe in your Home?: Yes Lack of Transportation: No Lack of Food: Never True Current Housing: I Have Housing Concerned About Future Housing: No Difficulty Paying Gas/Electric Bills: No Difficulty Paying for Meds: No Currently Unemployed: No Education: High School Diploma/GED Difficulty w/ Childcare or Family Care: No Gender identity (if verbalized by the patient): Female Sexual Orientation (if Verbalized by the Patient): Straight or Heterosexual Spiritual care concerns: No Meds Home Medications and Allergies Home Medications ?Medication ?Instructions ?Recorded ?Confirmed ?Type atorvastatin 40 mg tablet 40 mg PO QHS 06/30/21 04/23/25 History ferrous sulfate 325 mg (65 mg 325 mg PO DAILY 06/30/21 04/23/25 History iron) tablet fluticasone propionate 50 1 spray intranasal DAILY 06/30/21 04/23/25 History mcg/actuation nasal spray,suspension hydrocodone 5 mg-acetaminophen 325 1 tablet PO Q8H PRN Pain Rated 4-6 06/30/21 04/23/25 History mg tablet levetiracetam 500 mg tablet 500 mg PO BID 06/30/21 04/23/25 History acetaminophen 325 mg tablet 650 mg PO Q6H PRN fever or pain 01/13/25 04/23/25 History (Aminofen) albuterol 90 mcg-budesonide 80 2 inh inhalation .every 6 hours 01/13/25 04/23/25 History mcg/actuation HFA aerosol inhaler PRN shortness of breath or wheezing (Airsupra) baclofen 5 mg tablet 5 mg PO BID 01/13/25 04/23/25 History cholecalciferol (vitamin D3) 50 2,000 unit PO DAILY 01/13/25 04/23/25 History mcg (2,000 unit) capsule diclofenac sodium 1 % topical gel 1 ea topical Q6H PRN pain 01/13/25 04/23/25 History (Arthritis Pain (diclofenac)) diphenhydramine HCl 25 mg capsule 50 mg PO Q8H PRN allergy symptoms 01/13/25 04/23/25 History (Aler-Cap) ergocalciferol (vitamin D2) 1,250 1,250 mcg PO WEEKLY 01/13/25 04/23/25 History mcg (50,000 unit) capsule escitalopram oxalate 10 mg tablet 20 mg PO DAILY 01/13/25 04/23/25 History hydroxyzine HCl 25 mg tablet 25 mg PO TID 01/13/25 04/23/25 History ipratropium 0.5 mg-albuterol 3 mg 3 ml inhalation Q2H PRN shortness 01/13/25 04/23/25 History (2.5 mg base)/3 mL nebulization of breath soln lactulose 10 gram/15 mL oral 20 g PO DAILY 01/13/25 04/23/25 History solution (Enulose) gabapentin 100 mg capsule 100 mg PO BID 04/06/25 04/23/25 History insulin aspart U-100 100 unit/mL 1 sliding scale dose subcut 04/06/25 04/23/25 History (3 mL) subcutaneous pen (Novolog .before meals FlexPen U-100 Insulin aspart) midodrine 5 mg tablet 5 mg PO .COMPLEX 04/06/25 04/23/25 History montelukast 10 mg tablet 10 mg PO DAILY 04/06/25 04/23/25 History nystatin 100,000 unit/gram topical 1 applic topical BID 04/06/25 04/23/25 History powder ondansetron HCl 4 mg tablet 4 mg PO Q8H PRN nausea and vomiting 04/06/25 04/23/25 History oxcarbazepine 150 mg tablet 150 mg PO BID 04/06/25 04/23/25 History quetiapine 25 mg tablet 50 mg PO HS 04/06/25 04/23/25 History trazodone 50 mg tablet 50 mg PO HS 04/06/25 04/23/25 History cyanocobalamin (vitamin B-12) 1,000 mcg PO DAILY 04/07/25 04/23/25 History 1,000 mcg tablet (Vitamin B-12) [id number] 2.5 15 ml PO Q6H PRN cough 04/07/25 04/23/25 History mg-5 mg-50 mg/5 mL oral liquid (Robitussin Cough and Cold CF) Allergies Allergy/AdvReac Type Severity Reaction Status Date / Time Penicillins Allergy Severe Anaphylaxis Verified 04/07/25 00:09 Vital Signs Vital Signs Temp Pulse Resp BP Pulse Ox O2 Del Method O2 Flow Rate 04/23/25 18:01 65 132/58 L 04/23/25 17:45 64 113/62 04/23/25 17:39 64 04/23/25 17:38 BiPAP 04/23/25 17:29 61 105/91 H 04/23/25 17:20 04/23/25 17:20 98.1 F 67 24 H 119/68 100 04/23/25 14:32 70 99 04/23/25 14:04 73 16 100 BiPAP 04/23/25 13:59 96 BiPAP 04/23/25 13:47 76 16 143/82 H 98 CPAP 15 Exam 2 Narrative: GENERAL APPEARANCE: chronically ill-appearing large Caucasina female on BiPAP HEENT: normocephalic, atraumatic, mild pallor to conjunctiva and sclera, nares patient NECK: no lymphadenopathy, thyromegaly, or JVD MOUTH: normal lips, teeth, and gums CARDIOVASCULAR: RRR, normal S1 and S2, no rub RESPIRATORY: coarse breath sounds with scattered crackles ABDOMEN: soft, nontender, nondistended, positive bowel sounds present EXTREMITIES: no evidence of cyanosis, clubbing, trace edema NEUROLOGICAL: awake and alert; CN II - XII intact bilaterally; no focal deficits noted Results Lab Results 04/24/25 04:25 04/24/25 04:25 Lab results: Most recent lab results ABG pH 7.319 (7.350-7.450) L 04/23/25 14:29 ABG pCO2 49.5 mmHg (35.0-45.0) H 04/23/25 14:29 ABG pO2 216.2 mmHg (80.0-100.0) H 04/23/25 14:29 ABG HCO3 24.9 mEq/l (22.0-26.0) 04/23/25 14:29 ABG O2 Saturation 99.4 % (95.0-100.0) 04/23/25 14:29 Calcium 8.4 mg/dL (8.4-10.2) 04/23/25 14:30
[2025-04-23] MEDS: EPOETIN ALFA 20,000 UNITS/ML VIAL 20000 UNITS IV PUSH (18:46)
[2025-04-23] MEDS: SODIUM CHLORIDE 0.9% IV 1,000 ML 999 ML IV CONT (18:47)
--- NOTE | 2025-04-23 20:15 | PC.NURSE ---
pt received from dialysis report from RN pt in rm [id number] with bipap on. verb no complaints asnweres simple commands
[2025-04-23] MEDS: IPRATROPIUM 0.5 MG/ALBUTEROL SULFATE 2.5 MG AMPUL.NEB 3 ML INHALATION (20:21)
[2025-04-23] MEDS: ATORVASTATIN 40 MG TABLET PO (20:55)
[2025-04-23] MEDS: HYDROcodone/acetaminophen (*CRX) 5-325 MG TABLET 1 TAB PO (20:56)
[2025-04-23] MEDS: guaiFENesin 12 HR 600 MG TABCR 1200 MG PO (20:58)
[2025-04-23] MEDS: ARTIFICIAL TEARS OPHTH SOLN 15 ML BOTTLE 1 DROP EACH EYE (23:32)
[2025-04-23] MEDS: BACLOFEN 5 MG TABLET PO (23:32)
[2025-04-24] VITALS (37 sets, daily range): BP systolic 95–157; BP diastolic 41–83; PULSE 62–81; RESP 15–22; TEMP 36.2–37.1; O2SAT 96–100
[2025-04-24] MEDS: HYDROcodone/acetaminophen (*CRX) 5-325 MG TABLET 1 TAB PO ×5 (02:00→22:41)
[2025-04-24] MEDS: IPRATROPIUM 0.5 MG/ALBUTEROL SULFATE 2.5 MG AMPUL.NEB 3 ML INHALATION ×4 (02:00→20:35)
[2025-04-24 04:35] LABS: Hematocrit 30.7 % (37.0-47.0); Hemoglobin 9.1 g/dL (12.0-15.0); Immature Granulocyte Percent A 0.5 % (0-0.5); Lymphocytes Absolute Auto 0.20 K/mm3 (0.9-3.2); Mean Corpuscular HGB Conc 29.6 g/dl (32-36); Mean Corpuscular Hemoglobin 28.3 pg (26-34); Mean Corpuscular Volume 95.3 fl (80-100); Nucleated Red Blood Cells Absolute Auto 0.000 K/mm3 (0.0-0.012); Nucleated Red Blood Cells Perc 0.0 % (0.0-0.2); Platelet Count Result 136 k/mm3 (150-375); Red Blood Count 3.22 M/mm3 (4.2-5.4); White Blood Count 8.1 K/mm3 (4.5-10.0)
[2025-04-24 04:56] LABS: Anion Gap 18 mmol/L (4-12); Blood Urea Nitrogen 82 mg/dL (7-17); Calcium 8.3 mg/dL (8.4-10.2); Carbon Dioxide 23 mmol/L (22-30); Chloride 96 mmol/L (98-107); Estimated CRCL calculation 13 ml/min; Estimated Glomerular Filt Rate 6; Glucose 228 mg/dL (65-110); Potassium 5.2 mmol/L (3.4-5.0); Sodium 137 mmol/L (137-145)
[2025-04-24 05:27] LABS: Anisocytosis 1+; Hypochromasia 1+; Ovalocytes 1+; Schistocytes None Seen
[2025-04-24] MEDS: guaiFENesin 12 HR 600 MG TABCR 1200 MG PO ×2 (07:31→20:18)
[2025-04-24] MEDS: FERROUS SULFATE 325 MG TABLET DR BY MOUTH (07:32)
[2025-04-24] MEDS: ESCITALOPRAM OXALATE 10 MG TABLET 20 MG PO (07:32)
[2025-04-24] MEDS: GABAPENTIN 100 MG CAPSULE PO ×2 (07:32→17:20)
[2025-04-24] MEDS: BACLOFEN 5 MG TABLET PO ×2 (07:33→20:18)
[2025-04-24] MEDS: MIDODRINE HCL 2.5 MG TABLET 10 MG PO (09:54)
[2025-04-24] MEDS: EPOETIN ALFA-EPBX 20,000 UNITS/ML VIAL 20000 UNITS IV PUSH (10:14)
--- NOTE | 2025-04-24 11:55 | P.PNNP_ITS ---
Progress Note: A&P Assessment and Plan (1) End stage renal disease: Code(s): N18.6 - End stage renal disease Status: Chronic Assessment and Plan: * HD today * plan HD tomorrow * continue outpatient schedule of Mondays, Wednesdays, and Fridays while hospitalized * follow electrolytes, volume status, and clearance (2) Volume overload: Code(s): E87.70 - Fluid overload, unspecified Status: Acute Assessment and Plan: * slow improvement * admission CXR concerning for edema * s/p dry ultrafiltration session yesterday for fluid removal * ongoing fluid removal with dialysis as tolerated by hemodynamics * continue current therapy/interventions (3) Acute on chronic hypoxic respiratory failure: Code(s): J96.21 - Acute and chronic respiratory failure with hypoxia Status: Acute Assessment and Plan: * acute component likely precipitated by #2 * however, multifactorial etiology: * COPD * asthma * SHELDON * OHS * CHF * pulmonary edema * on chronic supplemental oxygen * [facility] * however, she states this is not always done... * continue supportive therapy (4) CHF (congestive heart failure): Qualifiers: Heart failure chronicity: unspecified Heart failure type: unspecified Qualified Code(s): I50.9 - Heart failure, unspecified Code(s): I50.9 - Heart failure, unspecified Status: Acute Assessment and Plan: * first noted in 2020 if not longer * Echo at that time with evidence of chronic diastolic dysfunction * recent Echo (March 2025) noted: * normal biventricular size and systolic function * valves are not well visualized in this study for overall appears to not have any significant valvular abnormalities in the visualized acoustic window * fluid removal with dialysis to maintain euvolemia (5) Anemia: Qualifiers: Anemia type: due to chronic kidney disease Chronic kidney disease stage: on chronic dialysis Qualified Code(s): N18.6 - End stage renal disease; D63.1 - Anemia in chronic kidney disease; Z99.2 - Dependence on renal dialysis Code(s): D64.9 - Anemia, unspecified Status: Acute Assessment and Plan: * partly due to ESRD * GI evaluation noted on recent hospitalizationhowever, guaiac positive stool noted * EGD (on 04/11): only mild gastritis noted * no evidence of iron deficiency by anemia studies by last check * high dose Epogen with dialysis * follow trend of H/H (6) HTN (hypertension): Qualifiers: Hypertension type: unspecified Qualified Code(s): I10 - Essential (primary) hypertension Code(s): I10 - Essential (primary) hypertension Status: Chronic Assessment and Plan: * reasonable control * off antihypertensives at this time * on midodrine for dialysis purposes (7) Bipolar 1 disorder: Code(s): F31.9 - Bipolar disorder, unspecified Status: Chronic Assessment and Plan: * continue Seroquel (8) Left renal mass: Code(s): N28.89 - Other specified disorders of kidney and ureter Status: Chronic Assessment and Plan: * follows with Urology as an outpatient (concern is for malignancy) * per review of outside records, deemed to be a poor surgical candidate Will continue to follow. L Subjective Date/time seen: 04/24/25 10:10 Interval history: Follow-up for end stage renal disease on hemodialysis. Tolerating dialysis treatment at the time of my visit (seen on HD at 10:00am); tolerated dry ultrafiltration session yesterday without issue or problems; breathing/respiratory status appears better; no issues/events overnight or earlier this morning. Exam 2 Narrative: General: large but WD/WN female in NAD Heart: normal S1 and S2; no rub Lungs: clear anteriorly; diminished at bases Abdomen: obese but soft, nontender, nondistended, + bowel sounds Extremities: no cyanosis or clubbing; no edema Skin: warm and intact Objective Data Vital Signs Vital Signs: Vital Signs Temp Pulse Resp BP Pulse Ox O2 Del Method O2 Flow Rate 04/24/25 08:55 98.4 F 69 18 137/63 04/24/25 08:55 3 04/24/25 08:17 64 20 04/24/25 08:00 73 04/24/25 08:00 69 18 99 Nasal Cannula 3 04/24/25 08:00 98.4 F 70 16 149/51 H 99 04/24/25 06:00 64 04/24/25 04:00 98.7 F 67 22 H 125/44 L 98 04/24/25 04:00 68 04/24/25 04:00 68 18 100 Nasal Cannula 3 04/24/25 03:45 68 18 100 BiPAP 04/24/25 02:17 63 19 04/24/25 02:11 63 19 100 BiPAP 04/24/25 02:06 63 19 04/24/25 02:00 66 04/24/25 00:00 97.9 F 71 18 143/48 H 98 04/23/25 23:48 70 04/23/25 23:47 70 22 H 100 Nasal Cannula 3 04/23/25 23:43 69 22 H 100 BiPAP 04/23/25 22:00 71 04/23/25 20:30 69 19 04/23/25 20:24 69 22 H 100 BiPAP 04/23/25 20:21 69 04/23/25 20:06 98.1 F 63 18 123/51 L 100 04/23/25 20:00 69 04/23/25 20:00 69 22 H 100 BiPAP 04/23/25 20:00 98.4 F 67 17 124/83 93 04/23/25 19:59 61 107/55 L 04/23/25 19:45 60 102/54 L 04/23/25 19:30 60 96/53 L 04/23/25 19:15 61 98/56 L 04/23/25 19:00 60 97/46 L 04/23/25 18:45 62 105/47 L 04/23/25 18:30 64 117/56 L 04/23/25 18:15 63 128/52 L 04/23/25 18:01 65 132/58 L 04/23/25 17:45 64 113/62 04/23/25 17:39 64 04/23/25 17:38 BiPAP 04/23/25 17:29 61 105/91 H 04/23/25 17:20 04/23/25 17:20 98.1 F 67 24 H 119/68 100 04/23/25 14:32 70 99 04/23/25 14:04 73 16 100 BiPAP 04/23/25 13:59 96 BiPAP 04/23/25 13:47 76 16 143/82 H 98 CPAP 15 Intake/Output Intake/Output: Intake & Output 04/21/25 04/22/25 04/23/25 04/24/25 23:59 23:59 23:59 23:59 Intake Total 0 590 Output Total 2500 100 Balance -2500 490 Meds/Results Medications: Active Medications Generic Name Dose Route Start Last Admin Trade Name Freq PRN Reason Stop Dose Admin Acetaminophen 650 mg 04/23/25 15:48 Acetaminophen 325 Mg Tablet PO Q4H PRN Mild Pain (1-3) or Fever Hydrocodone Bitart/Acetaminophen 1 tab 04/23/25 15:48 04/24/25 07:33 Hydrocodone/Acetaminophen (*Crx) 5-325 Mg Tablet PO 1 tab Q4H PRN Administration Moderate Pain (4-6) Hydrocodone Bitart/Acetaminophen 1 tab 04/23/25 18:45 Hydrocodone/Acetaminophen (*Crx) 5-325 Mg Tablet PO Q8H PRN Pain Rated 4-6 Albuterol/Ipratropium 3 ml 04/23/25 15:48 04/24/25 02:00 Ipratropium 0.5 Mg/Albuterol Sulfate 2.5 Mg Ampul.Neb 3 Ml INHALATION 3 ml Q6HRT PRN Administration Shortness Of Breath Or Wheezing Albuterol/Ipratropium 3 ml 04/24/25 08:00 04/24/25 08:13 Ipratropium 0.5 Mg/Albuterol Sulfate 2.5 Mg Ampul.Neb 3 Ml INHALATION 3 ml Q6HRT MARLEEN Administration Artificial Tears 1 drop 04/23/25 23:13 04/23/25 23:32 Artificial Tears Ophth Soln 15 Ml Bottle EACH EYE 1 drop QID PRN Administration Dry Eye(s) Atorvastatin Calcium 40 mg 04/23/25 21:00 04/23/25 20:55 Atorvastatin 40 Mg Tablet PO 40 mg QHS MARLEEN Administration Baclofen 5 mg 04/23/25 21:00 04/24/25 07:33 Baclofen 5 Mg Tablet PO 5 mg Q12HR MARLEEN Administration Epoetin Ilya-epbx 20,000 units 04/24/25 18:35 Epoetin Ilya-Epbx 20,000 Units/Ml Vial IV PUSH 04/24/25 18:36 ONCE ONE Escitalopram Oxalate 20 mg 04/24/25 09:00 04/24/25 07:32 Escitalopram Oxalate 10 Mg Tablet PO 20 mg DAILY MARLEEN Administration Ferrous Sulfate 325 mg 04/24/25 09:00 04/24/25 07:32 Ferrous Sulfate [address] BY MOUTH 325 mg DAILY MARLEEN Administration Gabapentin 100 mg 04/24/25 09:00 04/24/25 07:32 Gabapentin 100 Mg Capsule PO 100 mg BID MARLEEN Administration Guaifenesin 1,200 mg 04/23/25 21:00 04/24/25 07:31 Guaifenesin 12 Hr 600 Mg Tabcr PO 1,200 mg Q12HR MARLEEN Administration Hydroxyzine HCl 25 mg 04/24/25 09:00 04/24/25 02:19 Hydroxyzine Hcl 25 Mg Tablet PO 25 mg TID MARLEEN Administration Levofloxacin/Dextrose 500 mg in 100 mls @ 100 mls/hr 04/25/25 18:00 Levaquin 500 Mg/D5w 100 Ml IVPB Q48H MARLEEN Albumin Human 50 mls @ 999 mls/hr 04/24/25 06:35 Albutein IVPB 05/24/25 06:34 Q10M PRN HYPOTENSION Levetiracetam 500 mg 04/24/25 09:00 04/24/25 07:32 Levetiracetam 500 Mg Tablet PO 500 mg Q12HR MARLEEN Administration Midodrine 10 mg 04/24/25 06:42 04/24/25 09:54 Midodrine Hcl 2.5 Mg Tablet PO 10 mg WITH DIALYSIS PRN Administration Hypotension with dialysis Oxcarbazepine 150 mg 04/24/25 09:00 04/24/25 07:32 Oxcarbazepine 150 Mg Tablet PO 150 mg Q12HR MARLEEN Administration Prednisone 40 mg 04/24/25 08:00 04/24/25 07:31 Prednisone 20 Mg Tablet PO 04/29/25 07:59 40 mg DAILY@0800 MARLEEN Administration Quetiapine Fumarate 50 mg 04/23/25 21:00 04/23/25 20:55 Quetiapine Fumarate 25 Mg Tablet PO 50 mg HS MARLEEN Administration Trazodone HCl 50 mg 04/23/25 21:00 04/23/25 20:55 Trazodone Hcl 50 Mg Tablet PO 50 mg HS MARLEEN Administration Radiology Results: ITS Impressions Chest X-Ray 04/23/25 15:07 IMPRESSION: 1.Confluent opacity in the lower third of the left hemithorax. Differential includes a combination of pleural fluid and adjacent atelectasis and/or consolidation. An underlying mass is possible. Recommend follow-up to resolution. Consider a chest CT for further assessment. 2.Small interstitial and air space opacities scattered throughout the right lung and in the upper two thirds of the left lung. The findings have slightly worsened as compared to the study from 04/06/2025. Differential includes but is not limited to edema or pneumonia. Follow-up suggested. Labs Labs: Laboratory Tests 04/24/25 04:25 04/24/25 04:25 Calcium 8.3 L
--- NOTE | 2025-04-24 12:42 | P.PNIM_ITS ---
Progress Note: A&P Assessment and Plan (1) Acute exacerbation of chronic obstructive airways disease: Code(s): J44.1 - Chronic obstructive pulmonary disease with (acute) exacerbation Status: Acute (2) CHF (congestive heart failure): Qualifiers: Heart failure chronicity: unspecified Heart failure type: unspecified Qualified Code(s): I50.9 - Heart failure, unspecified Code(s): I50.9 - Heart failure, unspecified Status: Acute Assessment and Plan: Managed by dialysis Improved after dialysis (3) Acute respiratory failure: Code(s): J96.00 - Acute respiratory failure, unspecified whether with hypoxia or hypercapnia Status: Acute Assessment and Plan: Secondary to above (4) End stage renal disease: Code(s): N18.6 - End stage renal disease Status: Chronic Assessment and Plan: On hemodialysis Wednesday Nephrology consulted Plan for dialysis today (5) Left renal mass: Code(s): N28.89 - Other specified disorders of kidney and ureter Status: Chronic Assessment and Plan: Previously seen on abdominal ultrasound from 04/08/2025 unchanged Patient has already been seen by Urology for this has deemed to be a poor surgical candidate (6) Bipolar 1 disorder: Code(s): F31.9 - Bipolar disorder, unspecified Status: Chronic Assessment and Plan: Continue Seroquel, Atarax Plan 65-year-old female with past medical history of COPD, COPD, congestive heart failure, seizures and end-stage renal disease on hemodialysis Wednesday presents the hospital with shortness of breath. Patient states that she was unable to go to dialysis today due to increased shortness of breath and EMS was called. Patient complains of a dry cough. She states that has been going on for the last 3 days. Patient denies fever chills, nausea or vomiting. Lab work shows hemoglobin of 9.7, ABG shows pH is 7.3, pCO2 of 49, PO2 of 216, bicarb of 24, on BiPAP, anion gap 13, BUN 73, creatinine 6.2, GFR 7. Chest x- ray shows chest x-ray shows edema versus pneumonia and a confluent opacity that could be pleural fluid versus atelectasis versus consolidation versus possible mass. Nephrology consulted. Acute hypoxic respiratory failure fluid overload versus COPD exacerbation received a dose of Solu-Medrol is being followed with prednisone also added on levofloxacin. Respiratory distress improved with dialysis. Inpatient dialysis as per nephrology team. Her normal schedule is Wednesday. She has hypoxic hypercapnic respiratory failure chronic and on BiPAP at night which will be continued here. Chronic anemia with recent GI Will with EGD showing gastritis. Congestive heart failure acute on chronic diastolic Hypertension Bipolar disorder Left renal mass poor surgical candidate per Urology DVT prophylaxis heparin subQ custodial resident Code status full code Subjective Date/time seen: 04/24/25 12:42 Interval history: Patient seen during dialysis. States breathing is getting better. She received dialysis yesterday. Discussed with Nephrology. She states she does not get her BiPAP at night in the nursing facility. Will need to ensure she is on a BiPAP at night. Review of Systems Review of Systems: 12 systems were reviewed and are negativ e except for as per HPI. Exam Narrative: General: well appearing, appears stated age. HEENT: normocephalic, atraumatic. Mucous membranes moist. Right subclavian tunneled dialysis catheter Respiratory: clear to ascultation bilaterally. No rales/rhonic/wheezes. Cardiovascular: Regular rate and rhythm, normal S1-S2 upon ascultation. Abdomen: Obese Soft, round, no pulsatile masses, nondistended and nontender. Extremities: No cyanosis, clubbing, or edema present. Pulses are palpable 2/2. Neuro: Alert and orientated x 4. PERRLA. Cranial nerves 2-12 intact without focal deficit. Skin: Warm, dry, and intact, without rash, erythema, or lesion. Psych: pleasant, cooperative, normal speech, normal affect, no hallucinations, no dysarthia Objective Data Vital Signs Vital Signs: Vital Signs - 24 hr 04/23/25 13:47 04/23/25 13:59 04/23/25 14:04 Temperature Pulse Rate 76 73 Respiratory Rate 16 16 Blood Pressure 143/82 H Pulse Oximetry 98 96 100 Oxygen Delivery CPAP BiPAP BiPAP Oxygen Flow Rate 15 Fraction of Inspired Oxygen 04/23/25 14:32 04/23/25 17:20 04/23/25 17:20 Temperature 98.1 F Pulse Rate 70 67 Respiratory Rate 24 H Blood Pressure 119/68 Pulse Oximetry 99 100 Oxygen Delivery Oxygen Flow Rate Fraction of Inspired Oxygen 40 04/23/25 17:29 04/23/25 17:38 04/23/25 17:39 Temperature Pulse Rate 61 64 Respiratory Rate Blood Pressure 105/91 H Pulse Oximetry Oxygen Delivery BiPAP Oxygen Flow Rate Fraction of Inspired Oxygen 04/23/25 17:45 04/23/25 18:01 04/23/25 18:15 Temperature Pulse Rate 64 65 63 Respiratory Rate Blood Pressure 113/62 132/58 L 128/52 L Pulse Oximetry Oxygen Delivery Oxygen Flow Rate Fraction of Inspired Oxygen 04/23/25 18:30 04/23/25 18:45 04/23/25 19:00 Temperature Pulse Rate 64 62 60 Respiratory Rate Blood Pressure 117/56 L 105/47 L 97/46 L Pulse Oximetry Oxygen Delivery Oxygen Flow Rate Fraction of Inspired Oxygen 04/23/25 19:15 04/23/25 19:30 04/23/25 19:45 Temperature Pulse Rate 61 60 60 Respiratory Rate Blood Pressure 98/56 L 96/53 L 102/54 L Pulse Oximetry Oxygen Delivery Oxygen Flow Rate Fraction of Inspired Oxygen 04/23/25 19:59 04/23/25 20:00 04/23/25 20:00 Temperature 98.4 F Pulse Rate 61 67 69 Respiratory Rate 17 22 H Blood Pressure 107/55 L 124/83 Pulse Oximetry 93 100 Oxygen Delivery BiPAP Oxygen Flow Rate Fraction of Inspired Oxygen 40 04/23/25 20:00 04/23/25 20:06 04/23/25 20:21 Temperature 98.1 F Pulse Rate 69 63 69 Respiratory Rate 18 Blood Pressure 123/51 L Pulse Oximetry 100 Oxygen Delivery Oxygen Flow Rate Fraction of Inspired Oxygen 04/23/25 20:24 04/23/25 20:30 04/23/25 22:00 Temperature Pulse Rate 69 69 71 Respiratory Rate 22 H 19 Blood Pressure Pulse Oximetry 100 Oxygen Delivery BiPAP Oxygen Flow Rate Fraction of Inspired Oxygen 04/23/25 23:43 04/23/25 23:47 04/23/25 23:48 Temperature Pulse Rate 69 70 70 Respiratory Rate 22 H 22 H Blood Pressure Pulse Oximetry 100 100 Oxygen Delivery BiPAP Nasal Cannula Oxygen Flow Rate 3 Fraction of Inspired Oxygen 04/24/25 00:00 04/24/25 02:00 04/24/25 02:06 Temperature 97.9 F Pulse Rate 71 66 63 Respiratory Rate 18 19 Blood Pressure 143/48 H Pulse Oximetry 98 Oxygen Delivery Oxygen Flow Rate Fraction of Inspired Oxygen 04/24/25 02:11 04/24/25 02:17 04/24/25 03:45 Temperature Pulse Rate 63 63 68 Respiratory Rate 19 19 18 Blood Pressure Pulse Oximetry 100 100 Oxygen Delivery BiPAP BiPAP Oxygen Flow Rate Fraction of Inspired Oxygen 04/24/25 04:00 04/24/25 04:00 04/24/25 04:00 Temperature 98.7 F Pulse Rate 68 68 67 Respiratory Rate 18 22 H Blood Pressure 125/44 L Pulse Oximetry 100 98 Oxygen Delivery Nasal Cannula Oxygen Flow Rate 3 Fraction of Inspired Oxygen 04/24/25 06:00 04/24/25 08:00 04/24/25 08:00 Temperature 98.4 F Pulse Rate 64 70 69 Respiratory Rate 16 18 Blood Pressure 149/51 H Pulse Oximetry 99 99 Oxygen Delivery Nasal Cannula Oxygen Flow Rate 3 Fraction of Inspired Oxygen 40 04/24/25 08:00 04/24/25 08:17 04/24/25 08:55 Temperature Pulse Rate 73 64 Respiratory Rate 20 Blood Pressure Pulse Oximetry Oxygen Delivery Oxygen Flow Rate 3 Fraction of Inspired Oxygen 04/24/25 08:55 Temperature 98.4 F Pulse Rate 69 Respiratory Rate 18 Blood Pressure 137/63 Pulse Oximetry Oxygen Delivery Oxygen Flow Rate Fraction of Inspired Oxygen Intake/Output Intake/Output: Intake & Output 04/21/25 04/22/25 04/23/25 04/24/25 23:59 23:59 23:59 23:59 Intake Total 0 590 Output Total 2500 100 Balance -2500 490 Meds/Results Medications: Active Medications Generic Name Dose Route Start Last Admin Trade Name Freq PRN Reason Stop Dose Admin Acetaminophen 650 mg 04/23/25 15:48 Acetaminophen 325 Mg Tablet PO Q4H PRN Mild Pain (1-3) or Fever Hydrocodone Bitart/Acetaminophen 1 tab 04/23/25 15:48 04/24/25 07:33 Hydrocodone/Acetaminophen (*Crx) 5-325 Mg Tablet PO 1 tab Q4H PRN Administration Moderate Pain (4-6) Hydrocodone Bitart/Acetaminophen 1 tab 04/23/25 18:45 Hydrocodone/Acetaminophen (*Crx) 5-325 Mg Tablet PO Q8H PRN Pain Rated 4-6 Albuterol/Ipratropium 3 ml 04/23/25 15:48 04/24/25 02:00 Ipratropium 0.5 Mg/Albuterol Sulfate 2.5 Mg Ampul.Neb 3 Ml INHALATION 3 ml Q6HRT PRN Administration Shortness Of Breath Or Wheezing Albuterol/Ipratropium 3 ml 04/24/25 08:00 04/24/25 08:13 Ipratropium 0.5 Mg/Albuterol Sulfate 2.5 Mg Ampul.Neb 3 Ml INHALATION 3 ml Q6HRT MARLEEN Administration Artificial Tears 1 drop 04/23/25 23:13 04/23/25 23:32 Artificial Tears Ophth Soln 15 Ml Bottle EACH EYE 1 drop QID PRN Administration Dry Eye(s) Atorvastatin Calcium 40 mg 04/23/25 21:00 04/23/25 20:55 Atorvastatin 40 Mg Tablet PO 40 mg QHS MARLEEN Administration Baclofen 5 mg 04/23/25 21:00 04/24/25 07:33 Baclofen 5 Mg Tablet PO 5 mg Q12HR MARLEEN Administration Epoetin Ilya-epbx 20,000 units 04/24/25 18:35 Epoetin Ilya-Epbx 20,000 Units/Ml Vial IV PUSH 04/24/25 18:36 ONCE ONE Escitalopram Oxalate 20 mg 04/24/25 09:00 04/24/25 07:32 Escitalopram Oxalate 10 Mg Tablet PO 20 mg DAILY MARLEEN Administration Ferrous Sulfate 325 mg 04/24/25 09:00 04/24/25 07:32 Ferrous Sulfate [address] BY MOUTH 325 mg DAILY MARLEEN Administration Gabapentin 100 mg 04/24/25 09:00 04/24/25 07:32 Gabapentin 100 Mg Capsule PO 100 mg BID MARLEEN Administration Guaifenesin 1,200 mg 04/23/25 21:00 04/24/25 07:31 Guaifenesin 12 Hr 600 Mg Tabcr PO 1,200 mg Q12HR MARLEEN Administration Hydroxyzine HCl 25 mg 04/24/25 09:00 04/24/25 02:19 Hydroxyzine Hcl 25 Mg Tablet PO 25 mg TID MARLEEN Administration Levofloxacin/Dextrose 500 mg in 100 mls @ 100 mls/hr 04/25/25 18:00 Levaquin 500 Mg/D5w 100 Ml IVPB Q48H MARLEEN Albumin Human 50 mls @ 999 mls/hr 04/24/25 06:35 Albutein IVPB 05/24/25 06:34 Q10M PRN HYPOTENSION Levetiracetam 500 mg 04/24/25 09:00 04/24/25 07:32 Levetiracetam 500 Mg Tablet PO 500 mg Q12HR MARLEEN Administration Midodrine 10 mg 04/24/25 06:42 04/24/25 09:54 Midodrine Hcl 2.5 Mg Tablet PO 10 mg WITH DIALYSIS PRN Administration Hypotension with dialysis Oxcarbazepine 150 mg 04/24/25 09:00 04/24/25 07:32 Oxcarbazepine 150 Mg Tablet PO 150 mg Q12HR MARLEEN Administration Prednisone 40 mg 04/24/25 08:00 04/24/25 07:31 Prednisone 20 Mg Tablet PO 04/29/25 07:59 40 mg DAILY@0800 MARLEEN Administration Quetiapine Fumarate 50 mg 04/23/25 21:00 04/23/25 20:55 Quetiapine Fumarate 25 Mg Tablet PO 50 mg HS MARLEEN Administration Trazodone HCl 50 mg 04/23/25 21:00 04/23/25 20:55 Trazodone Hcl 50 Mg Tablet PO 50 mg HS MARLEEN Administration Radiology Results: ITS Impressions Chest X-Ray 04/23/25 15:07 IMPRESSION: 1.Confluent opacity in the lower third of the left hemithorax. Differential includes a combination of pleural fluid and adjacent atelectasis and/or consolidation. An underlying mass is possible. Recommend follow-up to resolution. Consider a chest CT for further assessment. 2.Small interstitial and air space opacities scattered throughout the right lung and in the upper two thirds of the left lung. The findings have slightly worsened as compared to the study from 04/06/2025. Differential includes but is not limited to edema or pneumonia. Follow-up suggested. Labs Labs: Laboratory Results - last 24 hr 04/23/25 04/23/25 04/23/25 14:29 14:30 14:32 WBC 9.6 RBC 3.42 L Hgb 9.7 L Hct 33.6 L MCV 98.2 MCH 28.4 MCHC 28.9 L RDW 16.1 H Plt Count 157 MPV 9.6 Immature Gran % (Auto) 0.4 Neut % (Auto) 88.8 H Lymph % (Auto) 6.9 L Roane % (Auto) 3.8 Eos % (Auto) 0.0 Baso % (Auto) 0.1 L Lymph # (Auto) 0.66 L [place] # (Auto) 0.4 Eos # (Auto) 0.0 Baso # (Auto) 0.0 Abs Immat Gran (auto) 0.04 H Absolute Neuts (auto) 8.6 H Absolute Nucleated RBC 0.000 Band Neutrophils % 0 Nucleated RBC % 0.0 Platelet Estimate Adequate Hypochromasia 1+ Anisocytosis 2+ Ovalocytes Schistocytes None seen Puncture Site Right radial ABG pH 7.319 L ABG pCO2 49.5 H ABG pO2 216.2 H ABG PO2/FiO2 Ratio 3.09 ABG HCO3 24.9 ABG O2 Saturation 99.4 ABG O2 Content 15.0 L ABG Base Excess -1.5 A-a Gradient 229.7 Oxyhemoglobin 98.3 Carboxyhemoglobin 1.0 Methemoglobin 0.2 Reduced Hemoglobin 0.5 Total Hemoglobin 10.5 L O2 Delivery Device Bipap O2 Liters/Min Not Reportable FiO2 70 Expiratory Pressure 7 Inspiratory Pressure 14 Sodium 139 Potassium 5.0 Chloride 98 Carbon Dioxide 28 Anion Gap 13 H BUN 73 H D Creatinine 6.20 H Estim Creat Clear Calc Not Reportable Estimated GFR 7 L Glucose 123 H Lactic Acid 1.1 Calcium 8.4 Total Bilirubin 0.5 AST 20 ALT 11 Alkaline Phosphatase 99 Total Protein 7.2 Albumin 4.1 04/24/25 04:25 WBC 8.1 RBC 3.22 L Hgb 9.1 L Hct 30.7 L MCV 95.3 MCH 28.3 MCHC 29.6 L RDW 15.8 H Plt Count 136 L MPV 9.5 Immature Gran % (Auto) 0.5 Neut % (Auto) 96.3 H Lymph % (Auto) 2.5 L Ro[place] % (Auto) 0.6 L Eos % (Auto) 0.0 Baso % (Auto) 0.1 L Lymph # (Auto) 0.20 L Ro[place] # (Auto) 0.1 Eos # (Auto) 0.0 Baso # (Auto) 0.0 Abs Immat Gran (auto) 0.04 H Absolute Neuts (auto) 7.8 H Absolute Nucleated RBC 0.000 Band Neutrophils % Not Reportable Nucleated RBC % 0.0 Platelet Estimate Decreased Hypochromasia 1+ Anisocytosis 1+ Ovalocytes 1+ Schistocytes None seen Puncture Site ABG pH ABG pCO2 ABG pO2 ABG PO2/FiO2 Ratio ABG HCO3 ABG O2 Saturation ABG O2 Content ABG Base Excess A-a Gradient Oxyhemoglobin Carboxyhemoglobin Methemoglobin Reduced Hemoglobin Total Hemoglobin O2 Delivery Device O2 Liters/Min FiO2 Expiratory Pressure Inspiratory Pressure Sodium 137 Potassium 5.2 H Chloride 96 L Carbon Dioxide 23 Anion Gap 18 H BUN 82 H Creatinine 6.66 H Estim Creat Clear Calc 13 Estimated GFR 6 L Glucose 228 H Lactic Acid Calcium 8.3 L Total Bilirubin AST ALT Alkaline Phosphatase Total Protein Albumin
[2025-04-24] MEDS: ACETAMINOPHEN 325 MG TABLET 650 MG PO (15:41)
[2025-04-24] MEDS: ATORVASTATIN 40 MG TABLET PO (20:18)
--- NOTE | 2025-04-24 21:48 | PC.NURSE ---
This patient, Cathy Greene, was transferred to [facility] on 04/24/25 at 2130. Personal belongings sent with patient. Report given to Tory. Appropriate documentation sent with patient. Update attempted to be called to , no answer, no voicemail box to leave message.
[2025-04-25] VITALS (21 sets, daily range): BP systolic 93–189; BP diastolic 50–95; PULSE 51–108; RESP 15–18; TEMP 36.1–37; O2SAT 97–100
[2025-04-25] MEDS: IPRATROPIUM 0.5 MG/ALBUTEROL SULFATE 2.5 MG AMPUL.NEB 3 ML INHALATION ×2 (02:13→07:55)
[2025-04-25 07:19] LABS: Hematocrit 29.7 % (37.0-47.0); Hemoglobin 8.7 g/dL (12.0-15.0); Immature Granulocyte Percent A 0.9 % (0-0.5); Lymphocytes Absolute Auto 0.86 K/mm3 (0.9-3.2); Mean Corpuscular HGB Conc 29.3 g/dl (32-36); Mean Corpuscular Hemoglobin 28.2 pg (26-34); Mean Corpuscular Volume 96.4 fl (80-100); Nucleated Red Blood Cells Absolute Auto 0.030 K/mm3 (0.0-0.012); Nucleated Red Blood Cells Perc 0.5 % (0.0-0.2); Platelet Count Result 122 k/mm3 (150-375); Red Blood Count 3.08 M/mm3 (4.2-5.4); White Blood Count 6.5 K/mm3 (4.5-10.0)
[2025-04-25 07:44] LABS: Anisocytosis 1+; Hypochromasia 1+; Schistocytes None Seen
[2025-04-25 07:47] LABS: Albumin Level 3.6 g/dL (3.5-5.1); Anion Gap 14 mmol/L (4-12); Blood Urea Nitrogen 60 mg/dL (7-17); Calcium 8.2 mg/dL (8.4-10.2); Carbon Dioxide 24 mmol/L (22-30); Chloride 99 mmol/L (98-107); Estimated CRCL calculation 18 ml/min; Estimated Glomerular Filt Rate 9; Glucose 246 mg/dL (65-110); Potassium 3.9 mmol/L (3.4-5.0); Sodium 137 mmol/L (137-145)
[2025-04-25] MEDS: MIDODRINE HCL 2.5 MG TABLET 10 MG PO (08:02)
[2025-04-25] MEDS: BACLOFEN 5 MG TABLET PO (08:07)
[2025-04-25] MEDS: SODIUM CHLORIDE 0.9% IV 1,000 ML 999 ML IV CONT (08:18)
--- NOTE | 2025-04-25 08:20 | PC.NURSE ---
Patient to dialysis via bed.
[2025-04-25] MEDS: HYDROcodone/acetaminophen (*CRX) 5-325 MG TABLET 1 TAB PO ×2 (09:51→14:18)
[2025-04-25] MEDS: EPOETIN ALFA-EPBX 20,000 UNITS/ML VIAL 20000 UNITS IV PUSH (11:25)
--- NOTE | 2025-04-25 11:30 | P.PNNP_ITS ---
Progress Note: A&P Assessment and Plan (1) End stage renal disease: Code(s): N18.6 - End stage renal disease Status: Chronic Assessment and Plan: * HD today * continue outpatient schedule of Mondays, Wednesdays, and Fridays while hospitalized * follow electrolytes, volume status, and clearance (2) Volume overload: Code(s): E87.70 - Fluid overload, unspecified Status: Acute Assessment and Plan: * slow improvement * admission CXR concerning for edema * s/p dry ultrafiltration session (on 04/23) for fluid removal * ongoing fluid removal with dialysis as tolerated by hemodynamics * continue current therapy/interventions (3) Acute on chronic hypoxic respiratory failure: Code(s): J96.21 - Acute and chronic respiratory failure with hypoxia Status: Acute Assessment and Plan: * acute component likely precipitated by #2 * however, multifactorial etiology: * COPD * asthma * SHELDON * OHS * CHF * pulmonary edema * on chronic supplemental oxygen * [facility] * however, she states this is not always done... * continue supportive therapy (4) CHF (congestive heart failure): Qualifiers: Heart failure chronicity: unspecified Heart failure type: unspecified Qualified Code(s): I50.9 - Heart failure, unspecified Code(s): I50.9 - Heart failure, unspecified Status: Acute Assessment and Plan: * first noted in 2020 if not longer * Echo at that time with evidence of chronic diastolic dysfunction * recent Echo (March 2025) noted: * normal biventricular size and systolic function * valves are not well visualized in this study for overall appears to not have any significant valvular abnormalities in the visualized acoustic window * fluid removal with dialysis to maintain euvolemia (5) Anemia: Qualifiers: Anemia type: due to chronic kidney disease Chronic kidney disease stage: on chronic dialysis Qualified Code(s): N18.6 - End stage renal disease; D63.1 - Anemia in chronic kidney disease; Z99.2 - Dependence on renal dialysis Code(s): D64.9 - Anemia, unspecified Status: Acute Assessment and Plan: * partly due to ESRD * GI evaluation noted on recent hospitalizationhowever, guaiac positive stool noted * EGD (on 04/11): only mild gastritis noted * no evidence of iron deficiency by anemia studies by last check * high dose Epogen with dialysis * follow trend of H/H (6) HTN (hypertension): Qualifiers: Hypertension type: unspecified Qualified Code(s): I10 - Essential (primary) hypertension Code(s): I10 - Essential (primary) hypertension Status: Chronic Assessment and Plan: * reasonable control * off antihypertensives at this time * on midodrine for dialysis purposes (7) Bipolar 1 disorder: Code(s): F31.9 - Bipolar disorder, unspecified Status: Chronic Assessment and Plan: * continue Seroquel (8) Left renal mass: Code(s): N28.89 - Other specified disorders of kidney and ureter Status: Chronic Assessment and Plan: * follows with Urology as an outpatient (concern is for malignancy) * per review of outside records, deemed to be a poor surgical candidate Will continue to follow. L Subjective Date/time seen: 04/25/25 11:30 Interval history: Follow-up for end stage renal disease on hemodialysis. Tolerating dialysis treatment at the time of my visit (seen on HD at 11:20am); tolerated dialysis treatment yesterday as well without any issues or problems; breathing/respiratory status has improved if not back to baseline; no apparent distress noted when seen. Exam 2 Narrative: General: large but WD/WN female in NAD Heart: normal S1 and S2; no rub Lungs: clear anteriorly; diminished at bases Abdomen: obese but soft, nontender, nondistended, + bowel sounds Extremities: no cyanosis or clubbing; no edema Skin: no rash or nodules Objective Data Vital Signs Vital Signs: Vital Signs Temp Pulse Resp BP Pulse Ox O2 Del Method O2 Flow Rate 04/25/25 11:28 71 178/79 H 04/25/25 11:15 68 174/80 H 04/25/25 11:00 79 130/79 04/25/25 10:45 66 135/74 04/25/25 10:30 66 122/67 04/25/25 10:15 62 101/51 L 04/25/25 10:00 62 101/55 L 04/25/25 09:45 73 118/63 04/25/25 09:30 69 105/53 L 04/25/25 09:15 68 115/50 L 04/25/25 09:00 69 93/70 L 04/25/25 08:45 66 125/62 04/25/25 08:26 64 142/61 H 04/25/25 08:18 98.5 F 66 18 143/61 H 04/25/25 08:18 3 04/25/25 07:55 17 04/25/25 03:38 97.9 F 65 18 130/50 L 100 04/25/25 02:24 65 15 04/25/25 02:13 61 15 04/25/25 02:13 51 L 15 97 BiPAP 04/25/25 02:05 Nasal Cannula 04/24/25 23:17 97 Nasal Cannula 3 04/24/25 21:44 97.1 F L 70 18 135/46 L 97 04/24/25 20:40 75 15 04/24/25 20:35 70 15 04/24/25 20:35 96 Nasal Cannula 3 04/24/25 20:00 97 Nasal Cannula 3 04/24/25 19:50 98.6 F 62 16 142/52 H 99 04/24/25 18:00 67 04/24/25 16:00 98.2 F 72 16 144/80 H 97 04/24/25 16:00 72 18 99 Nasal Cannula 3 04/24/25 16:00 72 Intake/Output Intake/Output: Intake & Output 04/22/25 04/23/25 04/24/25 04/25/25 23:59 23:59 23:59 23:59 Intake Total 0 1310 480 Output Total 2500 4450 8104 Balance -9276 -4101 -0920 Meds/Results Medications: Active Medications Generic Name Dose Route Start Trade Name Freq PRN Reason Stop Acetaminophen 650 mg 04/23/25 15:48 Acetaminophen 325 Mg Tablet PO Q4H PRN Mild Pain (1-3) or Fever Hydrocodone Bitart/Acetaminophen 1 tab 04/23/25 15:48 Hydrocodone/Acetaminophen (*Crx) 5-325 Mg Tablet PO Q4H PRN Moderate Pain (4-6) Hydrocodone Bitart/Acetaminophen 1 tab 04/23/25 18:45 Hydrocodone/Acetaminophen (*Crx) 5-325 Mg Tablet PO Q8H PRN Pain Rated 4-6 Albuterol/Ipratropium 3 ml 04/23/25 15:48 Ipratropium 0.5 Mg/Albuterol Sulfate 2.5 Mg Ampul.Neb 3 Ml INHALATION Q6HRT PRN Shortness Of Breath Or Wheezing Albuterol/Ipratropium 3 ml 04/24/25 08:00 Ipratropium 0.5 Mg/Albuterol Sulfate 2.5 Mg Ampul.Neb 3 Ml INHALATION Q6HRT [facility] Artificial Tears 1 drop 04/23/25 23:13 Artificial Tears Ophth Soln 15 Ml Bottle EACH EYE QID PRN Dry Eye(s) Atorvastatin Calcium 40 mg 04/23/25 21:00 Atorvastatin 40 Mg Tablet PO QHS [facility] Baclofen 5 mg 04/23/25 21:00 Baclofen 5 Mg Tablet PO Q12HR [facility] Epoetin Ilya-epbx 20,000 units 04/24/25 18:35 Epoetin Ilya-Epbx 20,000 Units/Ml Vial IV PUSH 04/24/25 18:36 ONCE ONE Escitalopram Oxalate 20 mg 04/24/25 09:00 Escitalopram Oxalate 10 Mg Tablet PO DAILY [facility] Ferrous Sulfate 325 mg 04/24/25 09:00 Ferrous Sulfate [address] BY MOUTH DAILY [facility] Gabapentin 100 mg 04/24/25 09:00 Gabapentin 100 Mg Capsule PO BID [facility] Guaifenesin 1,200 mg 04/23/25 21:00 Guaifenesin 12 Hr 600 Mg Tabcr PO Q12HR [facility] Hydroxyzine HCl 25 mg 04/24/25 09:00 Hydroxyzine Hcl 25 Mg Tablet PO TID [facility] Levofloxacin/Dextrose 500 mg in 100 mls @ 100 mls/hr 04/25/25 18:00 Levaquin 500 Mg/D5w 100 Ml IVPB Q48H [facility] Albumin Human 50 mls @ 999 mls/hr 04/24/25 06:35 Albutein IVPB 05/24/25 06:34 Q10M PRN HYPOTENSION Levetiracetam 500 mg 04/24/25 09:00 Levetiracetam 500 Mg Tablet PO Q12HR [facility] Midodrine 10 mg 04/24/25 06:42 Midodrine Hcl 2.5 Mg Tablet PO WITH DIALYSIS PRN Hypotension with dialysis Oxcarbazepine 150 mg 04/24/25 09:00 Oxcarbazepine 150 Mg Tablet PO Q12HR [facility] Prednisone 40 mg 04/24/25 08:00 Prednisone 20 Mg Tablet PO 04/29/25 07:59 DAILY@0800 [facility] Quetiapine Fumarate 50 mg 04/23/25 21:00 Quetiapine Fumarate 25 Mg Tablet PO HS [facility] Trazodone HCl 50 mg 04/23/25 21:00 Trazodone Hcl 50 Mg Tablet PO HS [facility] Radiology Results: ITS Impressions Chest X-Ray 04/23/25 15:07 IMPRESSION: 1.Confluent opacity in the lower third of the left hemithorax. Differential includes a combination of pleural fluid and adjacent atelectasis and/or consolidation. An underlying mass is possible. Recommend follow-up to resolution. Consider a chest CT for further assessment. 2.Small interstitial and air space opacities scattered throughout the right lung and in the upper two thirds of the left lung. The findings have slightly worsened as compared to the study from 04/06/2025. Differential includes but is not limited to edema or pneumonia. Follow-up suggested. Labs Labs: Laboratory Tests 04/25/25 07:04 04/25/25 07:04 Calcium 8.2 L Phosphorus 5.8 H Albumin 3.6
[2025-04-25] MEDS: GABAPENTIN 100 MG CAPSULE PO (11:55)
[2025-04-25] MEDS: guaiFENesin 12 HR 600 MG TABCR 1200 MG PO (11:55)
[2025-04-25] MEDS: FERROUS SULFATE 325 MG TABLET DR BY MOUTH (11:55)
[2025-04-25] MEDS: ESCITALOPRAM OXALATE 10 MG TABLET 20 MG PO (11:56)
--- NOTE | 2025-04-25 13:31 | P.DS_ITS ---
DS: Admitting Diagnosis Discharge Date 04/25/25 Admitting Diagnosis Shortness of breath DS: Discharge Diagnosis Discharge Diagnosis (1) Acute exacerbation of chronic obstructive airways disease: Code(s): J44.1 - Chronic obstructive pulmonary disease with (acute) exacerbation Status: Acute (2) CHF (congestive heart failure): Qualifiers: Heart failure chronicity: unspecified Heart failure type: unspecified Qualified Code(s): I50.9 - Heart failure, unspecified Code(s): I50.9 - Heart failure, unspecified Status: Acute Assessment and Plan: Managed by dialysis Improved after dialysis (3) Acute respiratory failure: Code(s): J96.00 - Acute respiratory failure, unspecified whether with hypoxia or hypercapnia Status: Acute Assessment and Plan: Secondary to above (4) End stage renal disease: Code(s): N18.6 - End stage renal disease Status: Acute Assessment and Plan: On hemodialysis Wednesday Nephrology consulted Plan for dialysis today (5) Left renal mass: Code(s): N28.89 - Other specified disorders of kidney and ureter Status: Chronic Assessment and Plan: Previously seen on abdominal ultrasound from 04/08/2025 unchanged Patient has already been seen by Urology for this has deemed to be a poor surgical candidate (6) Bipolar 1 disorder: Code(s): F31.9 - Bipolar disorder, unspecified Status: Chronic Assessment and Plan: Continue Seroquel, Atarax Plan 65-year-old female with past medical history of COPD, COPD, congestive heart failure, seizures and end-stage renal disease on hemodialysis Wednesday presents the hospital with shortness of breath. Patient states that she was unable to go to dialysis today due to increased shortness of breath and EMS was called. Patient complains of a dry cough. She states that has been going on for the last 3 days. Patient denies fever chills, nausea or vomiting. Lab work shows hemoglobin of 9.7, ABG shows pH is 7.3, pCO2 of 49, PO2 of 216, bicarb of 24, on BiPAP, anion gap 13, BUN 73, creatinine 6.2, GFR 7. Chest x- ray shows chest x-ray shows edema versus pneumonia and a confluent opacity that could be pleural fluid versus atelectasis versus consolidation versus possible mass. Nephrology consulted. Acute hypoxic respiratory failure fluid overload versus COPD exacerbation received a dose of Solu-Medrol is being followed with prednisone also added on levofloxacin. Respiratory distress improved with dialysis. Inpatient dialysis as per nephrology team. Her normal schedule is Wednesday. She has hypoxic hypercapnic respiratory failure chronic and on BiPAP at night which will be continued here. Chronic anemia with recent GI Will with EGD showing gastritis. Congestive heart failure acute on chronic diastolic Hypertension Bipolar disorder Left renal mass poor surgical candidate per Urology DVT prophylaxis heparin subQ alf resident Code status full code DS: Summary Hospital Course Hospital Course: 65-year-old female with past medical history of COPD, COPD, congestive heart failure, seizures and end-stage renal disease on hemodialysis Wednesday presents the hospital with shortness of breath. Patient states that she was unable to go to dialysis today due to increased shortness of breath and EMS was called. Patient complains of a dry cough. She states that has been going on for the last 3 days. Patient denies fever chills, nausea or vomiting. Lab work shows hemoglobin of 9.7, ABG shows pH is 7.3, pCO2 of 49, PO2 of 216, bicarb of 24, on BiPAP, anion gap 13, BUN 73, creatinine 6.2, GFR 7. Chest x- ray shows chest x-ray shows edema versus pneumonia and a confluent opacity that could be pleural fluid versus atelectasis versus consolidation versus possible mass. Nephrology consulted. Acute hypoxic respiratory failure fluid overload versus COPD exacerbation received a dose of Solu-Medrol is being followed with prednisone also added on levofloxacin. Respiratory distress improved with dialysis. Inpatient dialysis as per nephrology team. Her normal schedule is Wednesday. She has hypoxic hypercapnic respiratory failure chronic and on BiPAP at night which will be continued here. patient was seen in the dialysis center and had her dialysis, stats feeling much better and her baseline, patient is clinically stable, will discharge patient today, will have her dialysis as scheduled Wednesday, Wednesday, and Wednesday. Time Spent with Patient Time attestation: Total time spent providing and/or coordinating discharge services: Exam Narrative: Morbidly obese Patient is comfortable, NAD HEENT: eyes are clear and none icteric LUNGS:CTA HEART: RR S1S2 ABD: BS+, Soft and nontender Lower extremities: no edema SKIN: nonjaundiced Neuro: grossly intact. DS: Data Data Completed and Pending Labs on day of discharge: Labs from last 24 hours 04/25/25 07:04 WBC 6.5 RBC 3.08 L Hgb 8.7 L Hct 29.7 L MCV 96.4 MCH 28.2 MCHC 29.3 L RDW 16.1 H Plt Count 122 L MPV 8.4 Immature Gran % (Auto) 0.9 H Neut % (Auto) 79.5 H Lymph % (Auto) 13.2 L Emmons % (Auto) 6.2 Eos % (Auto) 0.0 Baso % (Auto) 0.2 Lymph # (Auto) 0.86 L Emmons # (Auto) 0.4 Eos # (Auto) 0.0 Baso # (Auto) 0.0 Abs Immat Gran (auto) 0.06 H Absolute Neuts (auto) 5.2 Absolute Nucleated RBC 0.030 H Band Neutrophils % Not Reportable Nucleated RBC % 0.5 H Platelet Estimate Decreased Hypochromasia 1+ Anisocytosis 1+ Schistocytes None seen Sodium 137 Potassium 3.9 Chloride 99 Carbon Dioxide 24 Anion Gap 14 H BUN 60 H D Creatinine 4.71 H Estim Creat Clear Calc 18 Estimated GFR 9 L Glucose 246 H Calcium 8.2 L Phosphorus 5.8 H Albumin 3.6 Discharge Plan Discharge Attending physician on discharge: Alex Ford Consulting providers: Rosalio Calix; Karely Yusuf; Quinten Doss; Simon Lozano Discharging Clinician: Mason Durham Patient Disposition: MD Fpc/Asst Living Activity: as tolerated Diet: renal and low sodium Discharge Instructions: Patient will have outpatient dialysis as scheduled, patient to follow up with 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 Patient Instructions: Antibiotic Form Patient Language: Yakut Stand Alone Forms: General Discharge Information Follow-up/Referrals: Esvin Hope [Other] Rosalio Calix MD [Physician] - Discharge Medications: New Artificial Tears([id number]) 1-0.2-0.2 % Drops 1 drp EACH EYE QID PRN (Reason: Dry Eye(S)) Qty: 5 0RF guaifenesin [Mucus Relief ER] 600 mg Tablet Extended Release 12hr 1,200 mg PO Q12HR Qty: 30 0RF prednisone 10 mg tablet 10 mg PO DAILY Qty: 30 0RF Rx Instructions: 4Tx3, 3Tx3d, 2Tx3d, 1Tx3d Continued acetaminophen [Aminofen] 325 mg tablet 650 mg PO Q6H PRN (Reason: fever or pain) Airsupra 90-80 mcg/actuation HFA aerosol inhaler 2 inh inhalation .every 6 hours PRN (Reason: shortness of breath or wheezing) Patient Comments: Do not exceed 6 doses in 24 hours. baclofen 5 mg tablet 5 mg PO BID diphenhydramine HCl [Aler-Cap] 25 mg capsule 50 mg PO Q8H PRN (Reason: allergy symptoms) cholecalciferol (vitamin D3) 50 mcg (2,000 unit) capsule 2,000 unit PO DAILY diclofenac sodium [Arthritis Pain (diclofenac)] 1 % gel 1 ea topical Q6H PRN (Reason: pain) Rx Instructions: apply to single elbow, wrist or hand; for hand includes palm/fingers/back of hand ergocalciferol (vitamin D2) 1,250 mcg (50,000 unit) capsule 1,250 mcg PO WEEKLY Patient Comments: takes on Wednesday escitalopram oxalate 10 mg tablet 20 mg PO DAILY hydroxyzine HCl 25 mg tablet 25 mg PO TID ipratropium-albuterol 0.5 mg-3 mg(2.5 mg base)/3 mL solution for nebulization 3 ml inhalation Q2H PRN (Reason: shortness of breath) atorvastatin 40 mg tablet 40 mg PO QHS levetiracetam 500 mg tablet 500 mg PO BID ferrous sulfate 325 mg (65 mg iron) Tablet 325 mg PO DAILY fluticasone propionate 50 mcg/actuation spray,suspension 1 spray INTRANASAL DAILY hydrocodone-acetaminophen 5-325 mg tablet 1 tablet PO Q8H PRN (Reason: Pain Rated 4-6) gabapentin 100 mg capsule 100 mg PO BID midodrine 5 mg tablet 5 mg PO .COMPLEX Rx Instructions: 5 mg orally once a day every other day; montelukast 10 mg tablet 10 mg PO DAILY insulin aspart U-100 [Novolog FlexPen U-100 Insulin] 100 unit/mL (3 mL) insulin pen 1 sliding scale dose SUBCUT .before meals Rx Instructions: Give subcutaneous before meals. -Blood sugar 150-199, give 1 unit. -Blood sugar 200-249, give 2 units. -Blood sugar 250-299, give 3 units. -Blood sugar 300-349, give 4 units. -Blood sugar 350-500, give 6 units. -If blood sugar is greater than 500, call MD. nystatin 100,000 unit/gram powder 1 applic TOPICAL BID Rx Instructions: Apply under skin folds. ondansetron HCl 4 mg tablet 4 mg PO Q8H PRN (Reason: nausea and vomiting) oxcarbazepine 150 mg tablet 150 mg PO BID quetiapine 25 mg tablet 50 mg PO HS trazodone 50 mg tablet 50 mg PO HS Robitussin Cough and Cold CF 2.5-5-50 mg/5 mL liquid 15 ml PO Q6H PRN (Reason: cough) cyanocobalamin (vitamin B-12) [Vitamin B-12] 1,000 mcg tablet 1,000 mcg PO DAILY Date of admission: 04/23/25 17:03 Primary Care Provider: Esvin Hope Admitting Provider: Alex Ford Attending physician on admission: Mason Durham Condition: Stable
--- NOTE | 2025-04-26 08:08 | P.CDI_ITS ---
CDI Query Clarification Request Please specify type and acuity of heart failure if known. * Acute * Chronic * Acute on Chronic * Unknown * Systolic * Diastolic * Combined Systolic and Diastolic * Unknown (2) Volume overload: Code(s): E87.70 - Fluid overload, unspecified Status: Acute Assessment and Plan: * slow improvement * admission CXR concerning for edema * s/p dry ultrafiltration session (on 04/23) for fluid removal * ongoing fluid removal with dialysis as tolerated by hemodynamics * continue current therapy/interventions (3) Acute on chronic hypoxic respiratory failure: Code(s): J96.21 - Acute and chronic respiratory failure with hypoxia Status: Acute Assessment and Plan: * acute component likely precipitated by #2 * however, multifactorial etiology: * COPD * asthma * SHELDON * OHS * CHF * pulmonary edema * on chronic supplemental oxygen * suppose to be on BiPAP at night at the shelter * however, she states this is not always done... * continue supportive therapy (4) CHF (congestive heart failure): Qualifiers: Heart failure chronicity: unspecified Heart failure type: unspecified Qualified Code(s): I50.9 - Heart failure, unspecified Code(s): I50.9 - Heart failure, unspecified Status: Acute Assessment and Plan: * first noted in 2020 if not longer * Echo at that time with evidence of chronic diastolic dysfunction * recent Echo (March 2025) noted: * normal biventricular size and systolic function * valves are not well visualized in this study for overall appears to not have any significant valvular abnormalities in the visualized acoustic window * fluid removal with dialysis to maintain euvolemia <Josefa Paez RN - Last Filed: 04/26/25 08:10> Provider Comments with history of diastaltic CHF most likely acute on chronic diastolic CHF as recent ECHO showed normal LV function <Mason Durham MD - Last Filed: 05/08/25 09:23>
--- NOTE | 2025-04-26 08:08 | WPDCDIQUERY2 ---
CDI Query Clarification Request Please specify type and acuity of heart failure if known. Acute Chronic Acute on Chronic Unknown Systolic Diastolic Combined Systolic and Diastolic Unknown (2) Volume overload: Code(s): E87.70 - Fluid overload, unspecified Status: Acute Assessment and Plan: slow improvement admission CXR concerning for edema s/p dry ultrafiltration session (on 04/23) for fluid removal ongoing fluid removal with dialysis as tolerated by hemodynamics continue current therapy/interventions (3) Acute on chronic hypoxic respiratory failure: Code(s): J96.21 - Acute and chronic respiratory failure with hypoxia Status: Acute Assessment and Plan: acute component likely precipitated by #2 however, multifactorial etiology: COPD asthma SHELDON OHS CHF pulmonary edema on chronic supplemental oxygen suppose to be on BiPAP at night at the senior care however, she states this is not always done... continue supportive therapy (4) CHF (congestive heart failure): Qualifiers: Heart failure chronicity: unspecified Heart failure type: unspecified Qualified Code(s): I50.9 - Heart failure, unspecified Code(s): I50.9 - Heart failure, unspecified Status: Acute Assessment and Plan: first noted in 2020 if not longer Echo at that time with evidence of chronic diastolic dysfunction recent Echo (March 2025) noted: normal biventricular size and systolic function valves are not well visualized in this study for overall appears to not have any significant valvular abnormalities in the visualized acoustic window fluid removal with dialysis to maintain euvolemia <Josefa Paez RN - Last Filed: 04/26/25 08:10> Provider Comments with history of diastaltic CHF most likely acute on chronic diastolic CHF as recent ECHO showed normal LV function <Mason Durham MD - Last Filed: 05/08/25 09:23>
== END 2025-04-25 14:35 | DRG 190 ==
LOC: ANHED 14:02 → ANHIMU 15:53 → ANH3MEDSUR 04-24 22:33
PROVIDERS: Emergency Medicine; Internal Medicine Nephrology; Nurse Practitioner Gerontology; Admitting Provider Internal Medicine; Emergency Provider Emergency Medicine; Visit Provider Family Medicine
DX: J44.1 Chronic obstructive pulmonary disease with (acute) exacerbation (principal); J96.21 Acute and chronic respiratory failure with hypoxia; N18.6 End stage renal disease; I13.2 Hypertensive heart and chronic kidney disease with heart failure and with stage 5 chronic kidney disease, or end stage renal disease; Z68.43 Body mass index [BMI] 50.0-59.9, adult; E66.2 Morbid (severe) obesity with alveolar hypoventilation; I50.32 Chronic diastolic (congestive) heart failure; J96.12 Chronic respiratory failure with hypercapnia; I48.0 Paroxysmal atrial fibrillation; D63.1 Anemia in chronic kidney disease; G40.909 Epilepsy, unspecified, not intractable, without status epilepticus; M79.7 Fibromyalgia; M06.9 Rheumatoid arthritis, unspecified; M10.9 Gout, unspecified; F31.9 Bipolar disorder, unspecified; Z99.2 Dependence on renal dialysis; Z87.442 Personal history of urinary calculi; Z79.4 Long term (current) use of insulin; Z87.891 Personal history of nicotine dependence; Z99.81 Dependence on supplemental oxygen
CPT/HCPCS: 36415; 36600; 71045; 80048; 80053; 80069; 82375; 82805; 83050; 83605; 85018; 85025; 87040; 93005; 94002; 94003; 94640; 96365; 96375; 99285; A9270; G0257; G0378; J1644; J1956; J2919; J7030; J7512; Q4081; Q5105

== ENCOUNTER 2025-04-29 11:58 | Inpatient (IN) | payer MEDICARE, SELFPAY ==
[2025-04-29] VITALS (16 sets, daily range): BP systolic 100–156; BP diastolic 47–96; PULSE 64–74; RESP 14–18; TEMP 36.4–36.9; O2SAT 99–100; BMI 58.6
--- NOTE | ~2025-04-29 | XR_ITS ---
Portable chest x-ray Comparison: 04/23/2025 Clinical History: Chest pain Findings: Right-sided central venous line is unchanged. There is probable mild to moderate pulmonary edema pattern. Cardiomediastinal silhouette is stable. Bones and soft tissues are unremarkable. Impression: [id number] pulmonary edema. Stable support line. Reviewed, dictated and finalized at location . Impression: [id number] pulmonary edema. Stable support line.
--- OUTSIDE RECORDS SUMMARY | 2025-04-29 12:16 | XMS_ITS | Encounter Summary ---
Author Organization [facility] Address [address] [place] [address] Care Team Providers Care Bias Machine Operator Helper Name Role Phone Nicolas Navarro MD Primary Care Provider Mckay Pineda MD Primary Care Provider Leroy Livingston MD Primary Care Provider [phone] Omar Pugh Primary Care Provider [phone] Encounter Details Date Type Department Care Team (Late st Contact Info) Description 11/27/2017 Abstract [facility] CONVERSION [address] [place] [address] , Generic Kamila, Social History Tobacco Use Types Packs/Day Years Used Date Smoking Tobacco: Never Assessed Comments Unknown Sex and Gender Information Value Date Recorded Sex Assigned at Female 11/28/2024 8:51 AM CDT Legal 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 Source: 03/26/24 [facility]. 03/26/2024 06/03/2024 documented as of this encounter Care Teams Bias Machine Operator Helper Relationship Specialty Start Date End Date Nicolas Navarro MD [address] [facility] [place] [address] PCP - General FAMILY PRACTICE 04/17/19 06/18/21 Mckay Pineda MD [address] [place] [id number] PCP - General FAMILY PRACTICE 06/19/21 12/14/22 Leroy Livingston MD [address] [place] [id number] PCP - General FAMILY PRACTICE 12/15/22 03/06/23 [place] [address] [address] PCP - General PHYSICIAN DRIER AND GRINDER TENDER 03/07/23 documented as of this encounter
--- OUTSIDE RECORDS SUMMARY | 2025-04-29 12:17 | XMS_ITS | Clinical Summary ---
Author Organization [facility] Address [address] [place] [address] Phone Care Team Providers Care Piano Refinisher Name Role Phone Provider, None Primary Care [...] naloxone HCl (Narcan) 4 MG/0.1ML Liquid 1 [place] by Nasal route as needed for Opioid [...] Next Due Pneumococcal conjugate PCV20 , polysaccharide UUN038 conjugate, adjuvant, PF 09/30/2024() Social History Tobacco Use Types Packs/Day Years Used Date Smoking Tobacco: Every Day Cigarettes Smokeless Tobacco: Never Tobacco Cessation:Ready to Q uit: Not Asked; Counseling Given: Not Answered Alcohol Use Standard Drinks/Week Comments No 0 (1 standard drink = 0.6 oz pur e alcohol) [facility] Utilities Answer Date Recorded In [...] often do you attend chur ch or yazidism services? Patient unable to answer 09/27/2024 Active [...] and heating? Patient unable to answer 09/27/2024 [facility] - Occupational Stress [...] time in the past 12 m [facility], were you homeless or living in a detention (including now)? No 11/25/2024 Comments No Sex [...] Recently Relevant to Health Maintenance Results * HEPATITIS PANEL ACUTE (AHP) (11/27/2024 2:26 AM CDT) HEPATITIS A IGM ANTIBODY NON DETECTED NON DETECTED 11/27/2024 4:07 PM CDT [facility] Comment: IGM Antibodies to HAV not detected. Does not exclude early acute or recovered HAV infection. HEP B CORE AB (IGM) NON DETECTED NON DETECTED 11/27/2024 4:07 PM CDT [facility] Comment:IGM anti-HBC not det ected. Does not exclude the possibility of exposure to or infection with HBV. HEPATITIS B SURFACE ANTIGEN NON DETECTED NON DETECTED 11/27/2024 4:07 PM CDT [facility] Comment:A nonreactive test r esult does not [...] 0.09 <1 S/CO 11/27/2024 4:07 PM CDT [facility] Comment: Signal/Cutoff ratio < 0.79 is Nondetected Signal/Cutoff ratio 0.80-0.99 is Grayzone Signal/Cutoff ratio > 0.99 is Detected Supplemental assays are recommended if signal/cutoff ratio is >/=1.00. Signal/cutoff ratio result >/= 5.00 is 97% predictive of positivity for recombinant immunoblot assay (RIBA) and will be reported to the [place] Department of Public Health as required. Blood Venipuncture / Unknown 11/27/2024 2:26 AM CDT 11/27/2024 2:31 AM CDT us Lesley Cruz MD HEMATOLOGY ORDERABLES F inal Result [facility] [address] [place] [address], [place] from Last 3 Months or Most Recently Relevant to Health Maintenance Additional Health Concerns Infection Onset Date Last Indicated ESBL Comment:Added from external infection. Source: [facility] 11/02/2024 Insurance MEDICAID [place] AET Advance Directives * Full [...] measures to stabilize the patient. Care Teams Piano Refinisher Relationship Specialty Start Date End Date Provider, None [place] PCP - General 11/24/24
--- OUTSIDE RECORDS SUMMARY | 2025-04-29 12:17 | XMS_ITS | Encounter Summary ---
Author Organization [facility] Address [address] [place] [address] Phone Care Team Providers Care Dietitian Teacher Name Role Phone Provider, None Primary Care Provider Unavailabl e Encounter Details Date Type Department Care Team (Late st Contact Info) Description 10/06/2024 Telephone [facility] [address] [place] [phone] Satish Fontanez MD [address] [facility] [address] [place] [address] Social History Tobacco Use Types Packs/Day Years Used Date Smoking Tobacco: Every Day Cigarettes Smokeless Tobacco: Never Alcohol Use Standard Drinks/Week Comments No 0 (1 standard drink = 0.6 oz pur e alcohol) [facility] Utilities Answer Date Recorded In the past [address] [facility] [employer], gas, oil, or water [employer] threatened to shut off services in [...] often do you attend chur ch or sabianist services? Patient unable to answer 09/27/2024 Active [...] and heating? Patient unable to answer 09/27/2024 [facility] Occupat ional Health - Occupational Stress [...] assisted (including now)? Patient unable to answer 09/27/2024 [...] Time ESBL Comment:Added from external infection. Source: [facility]. 03/26/2024 08/28/2024 11/27/2024 8:53 A M CDT MRSA 07/01/2024 07/01/2024 11/28/2024 8:31 AM CDT ESBL Comment:Added from external infection. Source: [facility]. 11/02/2024 documented as of this encounter Care Teams Dietitian Teacher Relationship Specialty Start Date End Date Provider, None [place] PCP - General 11/24/24 documented as of this encounter
--- OUTSIDE RECORDS SUMMARY | 2025-04-29 12:17 | XMS_ITS | Clinical Summary ---
Author Organization [facility] Address [address] [place] [address] Care Team Providers Care Junior Linux Systems Administrator Name Role Phone Omar Pugh Primary Care Provider [phone] Allergies Active Allergy Reactions Criticality Noted Date Comments Penicillins Unknown Medium 08/09/2019 Patient Stated That she took Amoxicillin prescription picked up from [facility] on 05/19/19 with no problems. [...] Acute renal failure 05/27/2024 Acute respiratory failure ([facility]) 10/2022 Acute hypercapnic respiratory failure ([facility]) 07/15/2023 Acute on chronic respiratory failure ([facility]) 12/12/2022 Acute on chronic anemia 12/10/2022 Debility 06/20/2021 Chronic diastolic CHF (conge stive heart failure) ([facility]) 04/02/2021 Chronic GERD 04/02/2021 Chronic respiratory failure with hypoxia ([facility]) 04/02/2021 Peripheral neuropathy 04/02/2021 Right knee pain 04/02/2021 Impaired mobility 03/28/2021 Respiratory failure ([facility]) 01/22/2021 Tibia fracture 12/13/2020 At high risk for complication of immobility 07/16 Cellulitis of left lower extremity 08/12/2019 Pain and swelling of left lower leg 08/12/2019 Hydronephrosis, left 08/10/2019 Severe episode of recurrent major depressive disorder, without psychotic features ([facility]) 12/12/2018 Atypical chest pain 12/10/2018 Obstructive sleep apnea 12/10/2018 Paroxysmal atrial fibrillation ([facility]) 12/10/2018 Subclinical hypothyroidism 12/10/2018 Acute respiratory failure with hypoxia ([facility]) 12/01/2018 YAYA (acute kidney injury) 12/01/2018 Aspiration pneumonia ([facility]) 9 Calcium channel wayne overdose 12/01/2018 Encephalopathy, toxic 12/01/2018 Intentional overdose of drug in tablet form ([facility]) 12/01/2018 Neck pain, musculoskeletal 04/19/2018 [...] embolus less than 3 months ago no Estill details she has had numerous hospitalizations in [...] red meat Bipolar 1 disorder, depressed, mild ([facility] /[facility]) 07/20/2017 Overview (08/12/2019): Last Assessment [...] she informs me that Dr. Panda in [facility] is willing to move this pannus [...] 2 months ago. Referral re-printed. Personality disorder ([facility]) 7 Overview (08/12/2019): Last Assessment & Plan: Psychiatric referral made Recurrent major depressive disorder, in partial remission 07/20/2017 Seizures ([facility]) 07/20/2017 Overview (08/12/2019): Last Assessment & Plan: Patient gives a history of seizure disorder going back several years no seizures in the past 8 months she is on gabapentin patient was previously followed at [facility] in [facility]. Plans continue gabapentin this time Motor [...] from your doctor or pharmacy? Always 05/26/2024 [facility] Missingamesities Answer Date Recorded In the past 12 months has e [employer], gas, oil, or water [employer] threatened to shut off services in your [...] slept in a fdc (including now)? No 07/20/2023 Housing Stability Vital [...] in the past 12 m [facility], were you homeless or living in a fdc (including now)? Patient unable to answer 05/29/2024 Comments No Sex and Gender Information Value Date Recorded Sex Assigned at Female 11/28/2024 8:51 AM CDT Legal Sex Female 9:48 PM TIME CHECKER Gender Identity Not on file Sexual Orientation [...] Montesinos RN Medical Devices Implanted Type Area Director Of Construction Device Identifier Shelf Expiration Date Model / Serial / Lot Nail Shefali Tibial Yellow 09.3 X 34cm - [id number] Implanted:Qty: 1 on 12/15/2020 by Aditya Meyer MD at [facility] Nail Left: [employer] [id number] 10/12/2030 [id number] / / [id number] Plate 1/3 Tubular Shefali 6 Hole - [id number] Implanted:Qty: 1 on 12/15/2020 by Aditya Meyer MD at [facility] Plate Right: [employer] [id number] / / Screw Cortical Shefali Prox Dist F/T 5.0 X 35mm - [id number] Implanted:Qty: 1 on 12/15/2020 by Aditya Meyer MD at [facility] Screw Left: [employer] [id number] 05/04/2030 [id number] / / [id number] Screw Cortical Shefali 3.5 X 55mm - [id number] Implanted:Qty: 1 on 12/15/2020 by Aditya Meyer MD at [facility] Screw Right: [employer] [id number] / / Screw Cortical Shefali 3.5 X 14mm - [id number] Implanted:Qty: 1 on 12/15/2020 by Aditya Meyer MD at [facility] Screw Right: [employer] [id number] / / Screw Cortical Shefali F/T 5.0 X 60mm - [id number] Implanted:Qty: 1 on 12/15/2020 by Aditya Meyer MD at [facility] Screw Left: [employer] [id number] 12/11/2022 [id number] / / [id number] Screw Cortical Shefali Prox Dist F/T 5.0 X 32.5mm - [id number] Implanted:Qty: 1 on 12/15/2020 by Aditya Meyer MD at [facility] Screw Left: [employer] [id number] 05/27/2030 [id number] / / [id number] Screw Cortical Shefali Prox Dist F/T 5.0 X 27.5mm - [id number] Implanted:Qty: 1 on 12/15/2020 by Aditya Meyer MD at [facility] Screw Left: [employer] [id number] 03/12/2030 [id number] / / [id number] Screw Cortical Shefali Prox Dist 5.0 X 42.5mm - [id number] Implanted:Qty: 1 on 12/15/2020 by Aditya Meyer MD at [facility] Screw Left: [employer] [id number] 07/13/2028 [id number] / / [id number] Stent Cook Ureteral Filaform 6 Fr X 24cm - [id number] Implanted:Qty: 1 on 08/11/2019 by See Manzanares MD at [facility] Left: Ureter [employer] 05/30/2022 [id number] / / 100 3.5 X 50mm Screw Implanted:Qty: 1 on 12/15/2020 by Aditya Meyer MD at [facility] Right: [employer] [id number] / / 3.5 X 45mm Screw Implanted:Qty: 1 on 12/15/2020 by Aditya Meyer MD at [facility] Right: [employer] [id number] / / Explanted Type Area Director Of Construction Device Identifier Shelf Expiration Date Model / Serial / Lot Drill Bit Shefali 4.3 - [id number] Explanted:Qty: 2 on 12/15/2020 at [facility] Drill Left: [employer] [id number] / / N/A Drill Bit Shefali Tib/Hum Faustino 4.3mm - [id number] Explanted:Qty: 1 on 12/15/2020 by Aditya Meyer MD at [facility] Drill Left: [employer] [id number] / / N/A Drill Bit Shefali 2.5mm - [id number] Explanted:Qty: 1 on 12/15/2020 by Aditya Meyer MD at [facility] Drill Left: [employer] [id number] / / N/A Pin Shefali 3.0mm Threaded - [id number] Explanted:Qty: 2 on 12/15/2020 at [facility] Pin Left: [employer] [id number] / / N/A Ball Nose Guide Wire Explanted:Qty: 1 on 12/15/2020 by Aditya Meyer MD at [facility] Left: Tibia [employer] 10/25/2030 [id number] / / [id number] Procedures Procedure Name Priority Date/Time Associated Diagnosis Comments LIPID PANEL Routine 09/19/2019 11:30 AM TIME CHECKER Essential hypertension History of type 2 diabetes mellitus Hyperlipidemia Atrial fibrillation Anemia from Last 3 Months or Most Recently Relevant to Health Maintenance Results * (ABNORMAL) LIPID PANEL (09/19/2019 11:30 AM TIME CHECKER) CHOLESTEROL 175 <200 MG/DL 09/19/2019 11:52 AM [facility] Comment: THE NATIONAL LIPID ASSOCIATION AND THE NATIONAL CHOLESTEROL EDUCATION PROGRAM (NCEP) HAVE SET THE FOLLOWING GUIDELINES FOR TOTAL CHOLESTEROL IN ADULTS AGES 18 AND UP. DESIRABLE: <200 BORDERLINE HIGH: 200-239 HIGH: > OR = 240 TRIGLYCERIDES 250(H) <150 MG/DL 09/19/2019 11:52 AM [facility] Comment: THE NATIONAL LIPID ASSOCIATION AND THE NATIONAL CHOLESTEROL EDUCATION PROGAM (NCEP) HAVE SET THE FOLLOWING GUIDELINES FOR TRIGLYCERIDES IN ADULTS AGES 18 AND UP. NORMAL: <150 BORDERLINE HIGH: 150 TO 199 HIGH: 200 TO 499 VERY HIGH: >499 HDL 43(L) >49 MG/DL 09/19/2019 11:52 AM [facility] Comment: THE NATIONAL LIPID ASSOCIATION AND THE NATIONAL CHOLESTEROL EDUCATION PROGAM (NCEP) HAVE SET THE FOLLOWING GUIDELINES FOR HDL CHOLESTEROL IN ADULTS AGES 18 AND UP. MALES: >39 FEMALES: >49 LDL (CALCULATED) 82 <100 MG/DL 09/19/19 11:52 AM [facility] Comment: THE NATIONAL LIPID ASSOCIATION AND THE NATIONAL CHOLESTEROL EDUCATION PROGAM (NCEP) HAVE SET THE FOLLOWING GUIDELINES FOR LDL CHOLESTEROL IN ADULTS AGES 18 AND UP. DESIRABLE: <100 ABOVE DESIRABLE: 100 TO 129 BORDERLINE HIGH: 130 TO 159 HIGH: 160 TO 189 VERY HIGH: >189 VLDL CALCULATION 50 MG/DL 09/19/19 11:52 AM [facility] Comment:REFERENCE RANGE NOT ESTABLISHED CHOL/HDL RATIO 4.1 09/19/2019 11:52 AM [facility] Comment:REFERENCE RANGE NOT ESTABLISHED LDL/HDL 1.9 09/19/2019 11:52 AM TIME CHECKER [facility] Comment:REFERENCE RANGE NOT ESTABLISHED NON HDL CHOLESTEROL 132 MG/DL 09/19/2019 11:52 AM TIME CHECKER [facility] Comment:REFERENCE RANGE NOT ESTABLISHED 09/19/2019 11:3 0 AM TIME CHECKER [facility] Final Re sult [facility] [address] [place] [address], from Last 3 Months or Most Recently Relevant to Health Maintenance Additional Health Concerns Infection Onset Date Last Indicated MRSA Comment:Added from external infection. 07/28/2022 07/15/2023 ESBL - Extended Spectrum Bet a-lactamase Comment:Added from external infection. Source: 03/26/24 [facility] Health. 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
--- OUTSIDE RECORDS SUMMARY | 2025-04-29 12:18 | XMS_ITS | Patient Health Record ---
Author Organization [facility] As [employer] [facility] Address [address] [place] [address] Care Team Providers Care Records Management Specialist Name Role Phone Juan Madsen Unavailable [phone] Reason For Referral No Information Plan Of Treatment No Information Insurance Providers Payer Name Payer Address Payer Phone Subscriber Number Group Number Insured Name Patient Relationship to Insured Coverage Start Date Coverage End Date [employer] [address] [place] [address] [id number] FADIA ARROYO Self - patient is the insured
--- OUTSIDE RECORDS SUMMARY | 2025-04-29 12:18 | XMS_ITS | Clinical Summary ---
Author Organization CC [facility] [address] Address [address] [place] [address] Phone Care Team Providers Care Orthopedic Nurse Practitioner Name Role Phone No, Physician Primary Care Provider [phone] Terence Garcia MD Unavailable [phone] Sophia Thomas MD Unavailable [phone] Allergies Active Allergy Reactions Criticality Noted Date [...] 08/04/2022 Assessment & Plan (08/04/2022 10:52 AM MEDICAL OPERATIONS SUPERVISOR): Had normal K on admission. K last 2 days has been 5.1, 5.3. whole blood K of 5.2. Creatinine stable. Suspect due to immobilization vs resolving YAYA. -treat with lokelma x 2 days -will need repeat labs at SNF in 3-7 days. CKD (chronic kidney disease) stage 3, GFR 30-59 ml/min 07/28/2022 Assessment & Plan (08/04/2022 10:50 AM MEDICAL OPERATIONS SUPERVISOR): Mild YAYA on top of CKD3 - improved, now creat stable at 1.29. (though might be artificially increased due to being on bactrim) - avoid nephrotoxins and renally dose meds Assessment & Plan (08/02/2022 2:25 PM MEDICAL OPERATIONS SUPERVISOR): Mild yaya on top of CKD 3 - will continue to monitor with daily BMP - avoid nephrotoxins and renally dose meds - creatinine stable but not back to baseline, Bactrim may be contributing to cr lab elevation - IVF today and reassess Assessment & Plan (08/01/2022 11:07 AM MEDICAL OPERATIONS SUPERVISOR): Mild yaya on top of CKD 3 - will continue to monitor with daily BMP - avoid nephrotoxins and renally dose meds - creatinine downtrending Assessment & Plan (07/31/2022 1:52 PM MEDICAL OPERATIONS SUPERVISOR): Mild yaya on top of CKD 3 - will continue to monitor with daily BMP - Hold am lasix, add small IVF bolus - avoid nephrotoxins and renally dose meds - creatinine downtrending Assessment & Plan (07/30/2022 1:34 PM MEDICAL OPERATIONS SUPERVISOR): Mild yaya on top of CKD 3 - will continue to monitor with daily BMP - slight bump today - Hold am lasix, add small IVF bolus - avoid nephrotoxins and renally dose meds Assessment & Plan (07/28/2022 2:32 PM MEDICAL OPERATIONS SUPERVISOR): Mild yaya on top of CKD 3 - will continue to monitor with daily BMP - Hold am lasix - send urinalysis - avoid nephrotoxins and renally dose meds Cellulitis of abdominal wall 07/27/2022 Assessment & Plan (08/04/2022 10:49 AM MEDICAL OPERATIONS SUPERVISOR): Pt presenting with abdominal wall erythema and [...] resolved Assessment & Plan (08/02/2022 2:23 PM MEDICAL OPERATIONS SUPERVISOR): Pt presenting with abdominal wall erythema and [...] improving Assessment & Plan (08/01/2022 10:56 AM MEDICAL OPERATIONS SUPERVISOR): Pt presenting with abdominal wall erythema and [...] improving Assessment & Plan (07/31/2022 1:51 PM MEDICAL OPERATIONS SUPERVISOR): Pt presenting with abdominal wall erythema and [...] positive Assessment & Plan (07/30/2022 1:32 PM MEDICAL OPERATIONS SUPERVISOR): Pt presenting with abdominal wall erythema and [...] contaminant Assessment & Plan (07/29/2022 2:29 PM MEDICAL OPERATIONS SUPERVISOR): Pt presenting with abdominal wall erythema and [...] appropriate Assessment & Plan (07/28/2022 2:24 PM MEDICAL OPERATIONS SUPERVISOR): Pt presenting with abdominal wall erythema and [...] 01/21/2022 Assessment & Plan (08/03/2022 3:28 PM MEDICAL OPERATIONS SUPERVISOR): CT in January 2022 showed 4 cm [...] radiology they have such a scanner at [facility] Assessment & Plan (08/02/2022 2:24 PM MEDICAL OPERATIONS SUPERVISOR): CT in January 2022 showed 4 cm [...] radiology they have such a scanner at [facility] Assessment & Plan (08/01/2022 11:05 AM MEDICAL OPERATIONS SUPERVISOR): CT in January 2022 showed 4 cm [...] not Assessment & Plan (07/31/2022 1:51 PM MEDICAL OPERATIONS SUPERVISOR): CT in January 2022 showed 4 cm indeterminant renal mass, has progressed since previous imaging and was recommended to have MRI outpatient but patient was not scanned. - ordered MRI and attempting to get as inpatient Assessment & Plan (07/30/2022 1:33 PM MEDICAL OPERATIONS SUPERVISOR): CT in January 2022 showed 4 cm indeterminant renal mass, has progressed since previous imaging and was recommended to have MRI outpatient but patient was not scanned. - ordered MRI Assessment & Plan (07/28/2022 2:30 PM MEDICAL OPERATIONS SUPERVISOR): CT in January 2022 showed 4 cm [...] 021 Assessment & Plan (08/04/2022 10:49 AM MEDICAL OPERATIONS SUPERVISOR): Pt with Hx of COPD (former smoker), SHELDON and OHS on 3L O2 chronically and Bipap At baseline - Cont home ICS/LABA (formulary substitute for home symbicort) and duonebs prn, bipap and supplemental O2. Assessment & Plan (08/02/2022 2:23 PM MEDICAL OPERATIONS SUPERVISOR): Pt with Hx of COPD (former smoker), SHELDON and OHS on 3L O2 chronically and Bipap - Cont home ICS/LABA (formulary substitute for home symbicort) and duonebs prn, bipap and supplemental O2. Assessment & Plan (08/01/2022 10:56 AM MEDICAL OPERATIONS SUPERVISOR): Pt with Hx of COPD (former smoker), SHELDON and OHS on 3L O2 chronically and Bipap - Cont home ICS/LABA (formulary substitute for home symbicort) and duonebs prn, bipap and supplemental O2. Assessment & Plan (07/31/2022 1:51 PM MEDICAL OPERATIONS SUPERVISOR): Pt with Hx of COPD (former smoker), SHELDON and OHS on 3L O2 chronically and Bipap - Cont home ICS/LABA (formulary substitute for home symbicort) and duonebs prn, bipap and supplemental O2. Assessment & Plan (07/30/2022 1:32 PM MEDICAL OPERATIONS SUPERVISOR): Pt with Hx of COPD (former smoker), SHELDON and OHS on 3L O2 chronically and Bipap - Cont home ICS/LABA (formulary substitute for home symbicort) and duonebs prn, bipap and supplemental O2. Assessment & Plan (07/29/2022 2:42 PM MEDICAL OPERATIONS SUPERVISOR): Pt with Hx of COPD (former smoker), SHELDON and OHS on 3L O2 chronically and Bipap - Cont home ICS/LABA (formulary substitute for home symbicort) and duonebs prn, bipap and supplemental O2. Assessment & Plan (07/28/2022 2:25 PM MEDICAL OPERATIONS SUPERVISOR): Pt with Hx of COPD (former smoker), [...] 04/02/2021 Assessment & Plan (08/04/2022 10:50 AM MEDICAL OPERATIONS SUPERVISOR): Patient with hx of left knee surgery 2/2 fracture and Right knee osteoarthritis. Also with hx of gout of Right Toe. Right knee exam is benign. - uric acid elevated - knee x-ray with OA - continue tylenol and oxycodone, added lidocaine patch Assessment & Plan (08/02/2022 2:22 PM MEDICAL OPERATIONS SUPERVISOR): Patient with hx of left knee surgery [...] (12/17/2021 1:05 PM CDT): - CPAP nightly. [facility] notes report CPAP at 6mm H2O with 2L O2 bleed in Assessment & Plan (12/16/2021 3:38 PM CDT): - CPAP nightly. [facility] notes report CPAP at 6mm H2O with 2L O2 bleed in Assessment & Plan (12/15/2021 10:05 AM CDT): - CPAP nightly. [facility] notes report CPAP at 6mm H2O with 2L O2 bleed in Assessment & Plan (12/14/2021 11:36 AM CDT): - CPAP nightly. [facility] notes report CPAP at 6mm H2O with 2L O2 bleed in Assessment & Plan (12/13/2021 10:36 AM CDT): - CPAP nightly. [facility] notes report CPAP at 6mm H2O with 2L O2 bleed in Assessment & Plan (12/11/2021 10:45 PM CDT): - CPAP nightly. [facility] notes report CPAP at 6mm H2O with 2L O2 bleed in Atypical chest pain 12/10/2018 Paroxysmal atrial fibrillation ([facility]) 019 Assessment & Plan (12/17/2021 1:05 PM CDT): - Continue Xarelto and diltiazem Assessment & Plan (12/16/2021 3:38 PM CDT): - Continue Xarelto and diltiazem Assessment & Plan (12/15/2021 10:05 AM CDT): Xarelto, dilt Assessment & Plan (12/14/2021 11:36 AM CDT): claire Guerin Assessment & Plan (12/12/2021 9:36 AM CDT): claire Guerin Subclinical hypothyroidism 12/10/2018 Assessment & Plan (08/03/2022 3:28 PM MEDICAL OPERATIONS SUPERVISOR): Continue home synthyroid Assessment & Plan (08/02/2022 2:24 PM MEDICAL OPERATIONS SUPERVISOR): Continue home synthyroid Assessment & Plan (08/01/2022 10:57 AM MEDICAL OPERATIONS SUPERVISOR): Continue home synthyroid Assessment & Plan (07/31/2022 1:51 PM MEDICAL OPERATIONS SUPERVISOR): Continue home synthyroid Assessment & Plan (07/30/2022 1:33 PM MEDICAL OPERATIONS SUPERVISOR): Continue home synthyroid Assessment & Plan (07/27/2022 8:24 PM MEDICAL OPERATIONS SUPERVISOR): Continue home synthyroid Assessment & Plan (01/23/2022 [...] 03/19/2018 Assessment & Plan (08/03/2022 3:26 PM MEDICAL OPERATIONS SUPERVISOR): Continue home xarelto Assessment & Plan (08/02/2022 2:24 PM MEDICAL OPERATIONS SUPERVISOR): Continue home xarelto Assessment & Plan (08/01/2022 10:57 AM MEDICAL OPERATIONS SUPERVISOR): Continue home xarelto Assessment & Plan (07/31/2022 1:51 PM MEDICAL OPERATIONS SUPERVISOR): Continue home xarelto Assessment & Plan (07/30/2022 1:33 PM MEDICAL OPERATIONS SUPERVISOR): Continue home xarelto Assessment & Plan (07/27/2022 8:25 PM MEDICAL OPERATIONS SUPERVISOR): Continue home xarelto Assessment & Plan (01/23/2022 [...] embolus less than 3 months ago no [place] details she has had numerous hospitalizations in [...] (10/27/2017): Added automatically from request for surgery [id number] Restless leg 10/18/2017 Assessment & Plan (08/03/2022 3:28 PM MEDICAL OPERATIONS SUPERVISOR): Continue pramipexole Assessment & Plan (08/02/2022 2:23 PM MEDICAL OPERATIONS SUPERVISOR): Continue pramipexole Assessment & Plan (08/01/2022 10:57 AM MEDICAL OPERATIONS SUPERVISOR): Continue pramipexole Assessment & Plan (07/31/2022 1:51 PM MEDICAL OPERATIONS SUPERVISOR): Continue pramipexole Assessment & Plan (07/30/2022 1:33 PM MEDICAL OPERATIONS SUPERVISOR): Continue pramipexole Assessment & Plan (07/27/2022 8:23 PM MEDICAL OPERATIONS SUPERVISOR): Continue pramipexole Assessment & Plan (12/17/2021 1:04 [...] 10/18/2017 Assessment & Plan (10/18/2017 6:00 PM MEDICAL OPERATIONS SUPERVISOR): Informed patient today that she would need to comply with this office recommendations on management of her multiple chronic conditions, failure to do so, would mean that she would need to find another primary care provider. Chronic pain syndrome 10/18/2017 Assessment & Plan (12/17/2021 1:04 PM CDT): Chronic pain of bilateral legs s/p fracture, shoulder and back. On [place] 7.5-325 q6h prn at home - tylenol 1g q6h prn, oxycodone 10mg q6h prn - home gabapentin 100mg TID - scheduled and prn bowel regimen - started lidoderm patches for most painful area Assessment & Plan (12/16/2021 3:37 PM CDT): chronic pain of bilateral legs s/p fracture, shoulder and back. On [place] 7.5-325 q6h prn at home - tylenol 1g q6h prn, oxycodone 10mg q6h prn - home gabapentin 100mg TID - scheduled and prn bowel regimen - started lidoderm patches for most painful area Assessment & Plan (12/15/2021 10:05 AM CDT): chronic pain of bilateral legs s/p fracture, shoulder and back. On [place] 7.5-325 q6h prn at home - tylenol 1g q6h prn, oxycodone 10mg q6h prn - home gabapentin 100mg TID - scheduled and prn bowel regimen - started lidoderm patches for most painful area Assessment & Plan (12/14/2021 11:36 AM CDT): chronic pain of bilateral legs s/p fracture, shoulder and back. On [place] 7.5-325 q6h prn at home - tylenol 1g q6h prn, oxycodone 10mg q6h prn - home gabapentin 100mg TID - scheduled and prn bowel regimen - started lidoderm patches for most painful area Assessment & Plan (12/13/2021 10:36 AM CDT): chronic pain of bilateral legs s/p fracture, shoulder and back. On [place] 7.5-325 q6h prn at home - tylenol 1g q6h prn, oxycodone 10mg q6h prn - home gabapentin 100mg TID - scheduled and prn bowel regimen - started lidoderm patches for most painful area Assessment & Plan (12/12/2021 9:35 AM CDT): chronic pain of bilateral legs s/p fracture, shoulder and back. On [place] 7.5-325 q6h prn at home - tylenol [...] events Assessment & Plan (10/18/2017 5:57 PM MEDICAL OPERATIONS SUPERVISOR): Referred to pain mgmt for further eval/tx. Wound dehiscence 10/18/2017 Assessment & Plan (10/18/2017 5:58 PM MEDICAL OPERATIONS SUPERVISOR): Referral given 2 months ago to be seen by wound care. Patient did not follow up with them. Seizure disorder 07/20/2017 Assessment & Plan (08/03/2022 3:28 PM MEDICAL OPERATIONS SUPERVISOR): Controlled. Continue home keppra & oxcarbazapine. Assessment & Plan (08/02/2022 2:23 PM MEDICAL OPERATIONS SUPERVISOR): Controlled. Continue home keppra & oxcarbazapine. Assessment & Plan (08/01/2022 10:57 AM MEDICAL OPERATIONS SUPERVISOR): Controlled. Continue home keppra & oxcarbazapine. Assessment & Plan (07/31/2022 1:51 PM MEDICAL OPERATIONS SUPERVISOR): Controlled. Continue home keppra & oxcarbazapine. Assessment & Plan (07/30/2022 1:33 PM MEDICAL OPERATIONS SUPERVISOR): Controlled. Continue home keppra & oxcarbazapine. Assessment & Plan (07/27/2022 8:25 PM MEDICAL OPERATIONS SUPERVISOR): Controlled. Continue home keppra & oxcarbazapine. Assessment [...] on gabapentin patient was previously followed at [facility] in [facility]. Plans continue gabapentin this time Assessment & Plan (10/18/2017 5:56 PM MEDICAL OPERATIONS SUPERVISOR): Self-reported, patient was referred to neurology 2 months ago immediately after she reported a seizure. Patient did not mellisa appt with neurology, patient encouraged to comply. Personality disorder 07/20/2017 Assessment & Plan (03/19/2018 2:33 PM CDT): Psychiatric referral made Assessment & Plan (10/18/2017 5:53 PM MEDICAL OPERATIONS SUPERVISOR): Encouraged patient to f/u through with Psychiatry referral. Bipolar 1 disorder, depressed, mild 07/20/2017 Assessment & Plan (08/03/2022 3:17 PM MEDICAL OPERATIONS SUPERVISOR): Symptoms controlled, cont home regimen of sertraline, Seroquel Assessment & Plan (08/02/2022 2:23 PM MEDICAL OPERATIONS SUPERVISOR): Symptoms controlled, cont home regimen of sertraline, Seroquel Assessment & Plan (08/01/2022 10:56 AM MEDICAL OPERATIONS SUPERVISOR): Symptoms controlled, cont home regimen of sertraline, Seroquel Assessment & Plan (07/31/2022 1:51 PM MEDICAL OPERATIONS SUPERVISOR): Symptoms controlled, cont home regimen of sertraline, Seroquel Assessment & Plan (07/30/2022 1:33 PM MEDICAL OPERATIONS SUPERVISOR): Symptoms controlled, cont home regimen of sertraline, Seroquel Assessment & Plan (07/29/2022 2:42 PM MEDICAL OPERATIONS SUPERVISOR): Symptoms controlled, cont home regimen of sertraline, Seroquel Assessment & Plan (07/27/2022 8:23 PM MEDICAL OPERATIONS SUPERVISOR): Symptoms controlled, cont home regimen of sertraline, [...] hallucinations. Assessment & Plan (10/18/2017 5:53 PM MEDICAL OPERATIONS SUPERVISOR): Rx refills given. Encouraged patient to f/u [...] therapy Assessment & Plan (10/18/2017 5:51 PM MEDICAL OPERATIONS SUPERVISOR): Hypertension is improving with treatment. Continue current treatment regimen. Dietary sodium restriction. Weight loss. Continue current medications. Blood pressure will be reassessed at the next regular appointment. Insomnia 07/20/2017 Assessment & Plan (10/18/2017 5:52 PM MEDICAL OPERATIONS SUPERVISOR): Will not fill both trazodone AND ambien, [...] 07/20/2017 Assessment & Plan (10/18/2017 5:56 PM MEDICAL OPERATIONS SUPERVISOR): Encouraged patient to follow through with nephrology referral she was given 2 months ago. Referral re-printed. Class 3 severe obesity with body mass index (BMI) greater than or equal to 70 in adult 07/20/2017 Assessment & Plan (08/03/2022 3:26 PM MEDICAL OPERATIONS SUPERVISOR): Pt with severe obesity, complicated by SHELDON/OHS. Leg fractures in 2020 managed nonoperatively, pt has been bed bound and living in SNF since that time. Assessment & Plan (08/02/2022 2:23 PM MEDICAL OPERATIONS SUPERVISOR): Pt with severe obesity, complicated by SHELDON/OHS. Leg fractures in 2020 managed nonoperatively, pt has been bed bound and living in SNF since that time. Assessment & Plan (08/01/2022 10:56 AM MEDICAL OPERATIONS SUPERVISOR): Pt with severe obesity, complicated by SHELDON/OHS. Leg fractures in 2020 managed nonoperatively, pt has been bed bound and living in SNF since that time. Assessment & Plan (07/31/2022 1:51 PM MEDICAL OPERATIONS SUPERVISOR): Pt with severe obesity, complicated by SHELDON/OHS. Leg fractures in 2020 managed nonoperatively, pt has been bed bound and living in SNF since that time. Assessment & Plan (07/30/2022 1:33 PM MEDICAL OPERATIONS SUPERVISOR): Pt with severe obesity, complicated by SHELDON/OHS. Leg fractures in 2020 managed nonoperatively, pt has been bed bound and living in SNF since that time. Assessment & Plan (07/27/2022 8:25 PM MEDICAL OPERATIONS SUPERVISOR): Pt with severe obesity, complicated by SHELDON/OHS. [...] she informs me that Dr. Panda in [facility] is willing to move this pannus patient referred to this particular physician to address this problem soon as possible. 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 Assessment & Plan (10/18/2017 5:56 PM MEDICAL OPERATIONS SUPERVISOR): Obesity is unchanged. Discussed the patient's BMI. [...] supratherapeutic level overnight. [place] to [place] [facility] [place] [facility]. Assessment & Plan (12/13/2021 10:35 AM [...] one more day then likely return to [place] tomorrow with better wound care Acute kidney [...] ensure stability prior to return to her [place] [facility]. Encounters Date Type Department Care Team Description 04/27/2025 Telephone [facility] Surgery [address] [facility] [address] [place] [address] Zachary Augustine MD PhD 04/11/2025 Telephone [facility] Surgery [address] [facility] 12th [place] [address] [place] [address] Zachary Augustine MD PhD 03/13/2025 Telephone [facility] Surgery [address] [place] [address] [place] [address] Zachary Augustine MD PhD 02/15/2025 Telephone [facility] Surgery [address] [facility] [place] [address] [place] [address] Zachary Augustine MD PhD from Last 3 [...] Arthritis 2016 Depression 1998 Gout 2016 Hypertension 1999 Chronic kidney disease 2006 Seizures ([facility]) 2016 Fibromyalgia 2002 Osteoarthritis uses motorized w heelchair and walker Diabetes mellitus ([facility]) Sleep apnea Seasonal allergies 1970 Bipolar 1 disorder ([facility]) History of pulmonary embolism Subclinical hypothyroidism 12/10/2018 CHF (congestive heart failure) ([facility]) COPD (chronic obstructive pu lmonary disease) Family [...] = 0.6 oz pur e alcohol) Occasional [facility] Utilities Answer Date Recorded In the past 12 months has e electric, gas, oil, or water company [...] week 01/15/2025 How often do you attend anabaptist or nondenominational serv ices? Never 01/15/2025 Do you belong to any clubs o r organizations such as anabaptist groups, unions, fraternal or athletic groups, or [...] place to sleep or slept in a penitentiary (including now)? No 07/30/2022 Housing Stability Vital Sign Answer Peep e Recorded In the last 12 months, was t here a time when you were not able to pay the mortgage or rent on time? No 01/15/2025 In the past 12 months, how m any times have you moved where you were living? 0 01/15/2025 At any time in the past 12 m [facility], were you homeless or living in a penitentiary (including now)? No 01/15/2025 Personal Safety Answer [...] history exists Medical Devices Implanted Type Area Ring Facer Device Identifier Shelf Expiration Date Model / Serial / Lot Dr. Scribbles Duramax Vascpak Safesheath D-Pro 15.5fr 28cm Kit Catheter [id number] - [id number] Implanted:Qty: 1 on 01/15/2025 by Hill Martínez MD at [facility] [employer] 12/11/2026 [id number] / / [id number] Procedures Procedure Name Priority Date/Time Associated Diagnosis Comments HEPATITIS PANEL, ACUTE Routine 01/15/2025 3:30 PM CDT OCCULT BLOOD, FECAL (FIT) Routine 08/02/2017 7:41 AM MEDICAL OPERATIONS SUPERVISOR HM MAMMOGRAPHY Routine 01/11/2002 COLONOSCOPY Routine 10/14/2001 [...] Hep B core IgM Nonreactive Nonreactive JOHAN Comment: Interpretive Data If HepB Core IgM Ab is reported as Equivocal, a new sample should be drawn in two weeks for testing. Current interpretive data was last revised on 19. Hep C Ab Nonreactive Nonreactive JOHAN Comment: Interpretive Data Nonreactive: Antibodies to HCV [...] MICROBIOLOGY - GENERAL OR DERABLES Final Result JOHNA LEON [address] Department [place] [address] * Occult blood, fecal non neoplasm screening (08/02/2017 7:41 AM MEDICAL OPERATIONS SUPERVISOR) Occult blood, fecal Negative Negative [facility] (FAN) Collection date [id number] [facility] (FAN) Collection time 1, feces 0740 [facility] (FAN) Stool 08/02/2017 7:41 AM MEDICAL OPERATIONS SUPERVISOR 08/02/2017 7:44 AM MEDICAL OPERATIONS SUPERVISOR Pam Rivas MD LAB BODY FLUIDS AND STOOLS ORDER SARIKA Final Result JOHAN KARLA (FAN) [address] [facility] Department [place] [address] * MAMMOGRAPHY (01/11/2002) Mammogram Normal Historical Moisés [facility] Final Result * COLONOSCOPY (10/14/2001) Colonoscopy Unknown Alvin Curiel MD HEALTH MAINTENANCE Final Result from Last 3 Months or Most Recently Relevant to Health Maintenance Additional Health Concerns Infection Onset Date Last Indicated MDR gram neg/ESBL 11/02/2024 11/02/2024 Insurance [id number] [place] [address] MEDICARE * Guarantor: Cathy Greene Account Type Relation to Patient Date of Phone Billing Address Personal/Family Self 1960 [id number] [place] [address] [facility] AETNA MEDICARE [facility] [id number] [place] [address] [employer] CHOICE MEDICARE PPO * Guarantor: Cathy Greene Account Type Relation to Patient Date of Phone Billing Address Personal/Family Self 1960 [facility] [facility] [id number] [place] [address] [facility] ADVANTRA MEDICARE Advance Directives For more information, please contact: [phone] Documents on File Type Date Recorded Patient Educational Technology Coordinator Expl anation ADVANCE DIRECTIVE 10/17/2024 1:12 PM [...] Agents on File Name Relationship Healthcare Agent [facility] Communication Nelly Hall Friend Health Care Agent Care Teams Orthopedic Nurse Practitioner Relationship Specialty Start Date End Date No, Physician PCP - General 07/27/22 [place] [id number] [address] [facility] [address] [place] [address] Consulting Physician Urology 01/20/25 Sophia Thomas MD [address] [facility] [address] [place] [address] Consulting Physician Family Medicine 01/20/25
--- OUTSIDE RECORDS SUMMARY | 2025-04-29 12:18 | XMS_ITS ---
Author Organization [facility] [address] Address [address] [place] [address] Phone Care Team Providers Care Mender Hand Name Role Phone No, Physician Primary Care Provider [phone] Terence Garcia MD Unavailable [phone] Sophia Thomas MD Unavailable [phone] Dialysis Access Sites Type Status Location Placement [...] BLOOD, FECAL (FIT) Routine 08/02/2017 7:41 AM LOAN PROCESSING SUPERVISOR MAMMOGRAPHY Routine 01/11/2002 COLONOSCOPY Routine 10/14/2001 from [...] 08/04/2022 Assessment & Plan (08/04/2022 10:52 AM LOAN PROCESSING SUPERVISOR): Had normal K on admission. K last 2 days has been 5.1, 5.3. whole blood K of 5.2. Creatinine stable. Suspect due to immobilization vs resolving YAYA. -treat with lokelma x 2 days -will need repeat labs at SNF in 3-7 days. CKD (chronic kidney disease) stage 3, GFR 30-59 ml/min 07/28/2022 Assessment & Plan (08/04/2022 10:50 AM LOAN PROCESSING SUPERVISOR): Mild YAYA on top of CKD3 - improved, now creat stable at 1.29. (though might be artificially increased due to being on bactrim) - avoid nephrotoxins and renally dose meds Assessment & Plan (08/02/2022 2:25 PM LOAN PROCESSING SUPERVISOR): Mild yaya on top of CKD 3 - will continue to monitor with daily BMP - avoid nephrotoxins and renally dose meds - creatinine stable but not back to baseline, Bactrim may be contributing to cr lab elevation - IVF today and reassess Assessment & Plan (08/01/2022 11:07 AM LOAN PROCESSING SUPERVISOR): Mild yaya on top of CKD 3 - will continue to monitor with daily BMP - avoid nephrotoxins and renally dose meds - creatinine downtrending Assessment & Plan (07/31/2022 1:52 PM LOAN PROCESSING SUPERVISOR): Mild yaya on top of CKD 3 - will continue to monitor with daily BMP - Hold am lasix, add small IVF bolus - avoid nephrotoxins and renally dose meds - creatinine downtrending Assessment & Plan (07/30/2022 1:34 PM LOAN PROCESSING SUPERVISOR): Mild yaya on top of CKD 3 - will continue to monitor with daily BMP - slight bump today - Hold am lasix, add small IVF bolus - avoid nephrotoxins and renally dose meds Assessment & Plan (07/28/2022 2:32 PM LOAN PROCESSING SUPERVISOR): Mild yaya on top of CKD 3 - will continue to monitor with daily BMP - Hold am lasix - send urinalysis - avoid nephrotoxins and renally dose meds Cellulitis of abdominal wall 07/27/2022 Assessment & Plan (08/04/2022 10:49 AM LOAN PROCESSING SUPERVISOR): Pt presenting with abdominal wall erythema [...] resolved Assessment & Plan (08/02/2022 2:23 PM LOAN PROCESSING SUPERVISOR): Pt presenting with abdominal wall erythema [...] improving Assessment & Plan (08/01/2022 10:56 AM LOAN PROCESSING SUPERVISOR): Pt presenting with abdominal wall erythema [...] improving Assessment & Plan (07/31/2022 1:51 PM LOAN PROCESSING SUPERVISOR): Pt presenting with abdominal wall erythema [...] positive Assessment & Plan (07/30/2022 1:32 PM LOAN PROCESSING SUPERVISOR): Pt presenting with abdominal wall erythema [...] contaminant Assessment & Plan (07/29/2022 2:29 PM LOAN PROCESSING SUPERVISOR): Pt presenting with abdominal wall erythema [...] appropriate Assessment & Plan (07/28/2022 2:24 PM LOAN PROCESSING SUPERVISOR): Pt presenting with abdominal wall erythema [...] 01/21/2022 Assessment & Plan (08/03/2022 3:28 PM LOAN PROCESSING SUPERVISOR): CT in January 2022 showed 4 [...] radiology they have such a scanner at [facility] Assessment & Plan (08/02/2022 2:24 PM LOAN PROCESSING SUPERVISOR): CT in January 2022 showed 4 [...] radiology they have such a scanner at [facility] Assessment & Plan (08/01/2022 11:05 AM LOAN PROCESSING SUPERVISOR): CT in January 2022 showed 4 [...] not Assessment & Plan (07/31/2022 1:51 PM LOAN PROCESSING SUPERVISOR): CT in January 2022 showed 4 cm indeterminant renal mass, has progressed since previous imaging and was recommended to have MRI outpatient but patient was not scanned. - ordered MRI and attempting to get as inpatient Assessment & Plan (07/30/2022 1:33 PM LOAN PROCESSING SUPERVISOR): CT in January 2022 showed 4 cm indeterminant renal mass, has progressed since previous imaging and was recommended to have MRI outpatient but patient was not scanned. - ordered MRI Assessment & Plan (07/28/2022 2:30 PM LOAN PROCESSING SUPERVISOR): CT in January 2022 showed 4 [...] hypoxia Assessment & Plan (08/04/2022 10:49 AM LOAN PROCESSING SUPERVISOR): Pt with Hx of COPD (former smoker), SHELDON and OHS on 3L O2 chronically and Bipap At baseline - Cont home ICS/LABA (formulary substitute for home symbicort) and duonebs prn, bipap and supplemental O2. Assessment & Plan (08/02/2022 2:23 PM LOAN PROCESSING SUPERVISOR): Pt with Hx of COPD (former smoker), SHELDON and OHS on 3L O2 chronically and Bipap - Cont home ICS/LABA (formulary substitute for home symbicort) and duonebs prn, bipap and supplemental O2. Assessment & Plan (08/01/2022 10:56 AM LOAN PROCESSING SUPERVISOR): Pt with Hx of COPD (former smoker), SHELDON and OHS on 3L O2 chronically and Bipap - Cont home ICS/LABA (formulary substitute for home symbicort) and duonebs prn, bipap and supplemental O2. Assessment & Plan (07/31/2022 1:51 PM LOAN PROCESSING SUPERVISOR): Pt with Hx of COPD (former smoker), SHELDON and OHS on 3L O2 chronically and Bipap - Cont home ICS/LABA (formulary substitute for home symbicort) and duonebs prn, bipap and supplemental O2. Assessment & Plan (07/30/2022 1:32 PM LOAN PROCESSING SUPERVISOR): Pt with Hx of COPD (former smoker), SHELDON and OHS on 3L O2 chronically and Bipap - Cont home ICS/LABA (formulary substitute for home symbicort) and duonebs prn, bipap and supplemental O2. Assessment & Plan (07/29/2022 2:42 PM LOAN PROCESSING SUPERVISOR): Pt with Hx of COPD (former smoker), SHELDON and OHS on 3L O2 chronically and Bipap - Cont home ICS/LABA (formulary substitute for home symbicort) and duonebs prn, bipap and supplemental O2. Assessment & Plan (07/28/2022 2:25 PM LOAN PROCESSING SUPERVISOR): Pt with Hx of COPD (former [...] 04/02/2021 Assessment & Plan (08/04/2022 10:50 AM LOAN PROCESSING SUPERVISOR): Patient with hx of left knee surgery 2/2 fracture and Right knee osteoarthritis. Also with hx of gout of Right Toe. Right knee exam is benign. - uric acid elevated - knee x-ray with OA - continue tylenol and oxycodone, added lidocaine patch Assessment & Plan (08/02/2022 2:22 PM LOAN PROCESSING SUPERVISOR): Patient with hx of left knee [...] PM CDT): - CPAP nightly. [facility] notes report CPAP at 6mm H2O with 2L O2 bleed in Assessment & Plan (12/16/2021 3:38 PM CDT): - CPAP nightly. [facility] notes report CPAP at 6mm H2O with 2L O2 bleed in Assessment & Plan (12/15/2021 10:05 AM CDT): - CPAP nightly. [facility] notes report CPAP at 6mm H2O with 2L O2 bleed in Assessment & Plan (12/14/2021 11:36 AM CDT): - CPAP nightly. [facility] notes report CPAP at 6mm H2O with 2L O2 bleed in Assessment & Plan (12/13/2021 10:36 AM CDT): - CPAP nightly. [facility] notes report CPAP at 6mm H2O with [...] 12/10/2018 Assessment & Plan (08/03/2022 3:28 PM LOAN PROCESSING SUPERVISOR): Continue home synthyroid Assessment & Plan (08/02/2022 2:24 PM LOAN PROCESSING SUPERVISOR): Continue home synthyroid Assessment & Plan (08/01/2022 10:57 AM LOAN PROCESSING SUPERVISOR): Continue home synthyroid Assessment & Plan (07/31/2022 1:51 PM LOAN PROCESSING SUPERVISOR): Continue home synthyroid Assessment & Plan (07/30/2022 1:33 PM LOAN PROCESSING SUPERVISOR): Continue home synthyroid Assessment & Plan (07/27/2022 8:24 PM LOAN PROCESSING SUPERVISOR): Continue home synthyroid Assessment & Plan [...] 03/19/2018 Assessment & Plan (08/03/2022 3:26 PM LOAN PROCESSING SUPERVISOR): Continue home xarelto Assessment & Plan (08/02/2022 2:24 PM LOAN PROCESSING SUPERVISOR): Continue home xarelto Assessment & Plan (08/01/2022 10:57 AM LOAN PROCESSING SUPERVISOR): Continue home xarelto Assessment & Plan (07/31/2022 1:51 PM LOAN PROCESSING SUPERVISOR): Continue home xarelto Assessment & Plan (07/30/2022 1:33 PM LOAN PROCESSING SUPERVISOR): Continue home xarelto Assessment & Plan (07/27/2022 8:25 PM LOAN PROCESSING SUPERVISOR): Continue home xarelto Assessment & Plan [...] embolus less than 3 months ago no [place] details she has had numerous hospitalizations in [...] (10/27/2017): Added automatically from request for surgery [id number] Restless leg 10/18/2017 Assessment & Plan (08/03/2022 3:28 PM LOAN PROCESSING SUPERVISOR): Continue pramipexole Assessment & Plan (08/02/2022 2:23 PM LOAN PROCESSING SUPERVISOR): Continue pramipexole Assessment & Plan (08/01/2022 10:57 AM LOAN PROCESSING SUPERVISOR): Continue pramipexole Assessment & Plan (07/31/2022 1:51 PM LOAN PROCESSING SUPERVISOR): Continue pramipexole Assessment & Plan (07/30/2022 1:33 PM LOAN PROCESSING SUPERVISOR): Continue pramipexole Assessment & Plan (07/27/2022 8:23 PM LOAN PROCESSING SUPERVISOR): Continue pramipexole Assessment & Plan (12/17/2021 [...] 10/18/2017 Assessment & Plan (10/18/2017 6:00 PM LOAN PROCESSING SUPERVISOR): Informed patient today that she would need to comply with this office recommendations on management of her multiple chronic conditions, failure to do so, would mean that she would need to find another primary care provider. Chronic pain syndrome 10/18/2017 Assessment & Plan (12/17/2021 1:04 PM CDT): Chronic pain of bilateral legs s/p fracture, shoulder and back. On [place] 7.5-325 q6h prn at home - tylenol 1g q6h prn, oxycodone 10mg q6h prn - home gabapentin 100mg TID - scheduled and prn bowel regimen - started lidoderm patches for most painful area Assessment & Plan (12/16/2021 3:37 PM CDT): chronic pain of bilateral legs s/p fracture, shoulder and back. On [place] 7.5-325 q6h prn at home - tylenol 1g q6h prn, oxycodone 10mg q6h prn - home gabapentin 100mg TID - scheduled and prn bowel regimen - started lidoderm patches for most painful area Assessment & Plan (12/15/2021 10:05 AM CDT): chronic pain of bilateral legs s/p fracture, shoulder and back. On [place] 7.5-325 q6h prn at home - tylenol 1g q6h prn, oxycodone 10mg q6h prn - home gabapentin 100mg TID - scheduled and prn bowel regimen - started lidoderm patches for most painful area Assessment & Plan (12/14/2021 11:36 AM CDT): chronic pain of bilateral legs s/p fracture, shoulder and back. On [place] 7.5-325 q6h prn at home - tylenol 1g q6h prn, oxycodone 10mg q6h prn - home gabapentin 100mg TID - scheduled and prn bowel regimen - started lidoderm patches for most painful area Assessment & Plan (12/13/2021 10:36 AM CDT): chronic pain of bilateral legs s/p fracture, shoulder and back. On [place] 7.5-325 q6h prn at home - tylenol 1g q6h prn, oxycodone 10mg q6h prn - home gabapentin 100mg TID - scheduled and prn bowel regimen - started lidoderm patches for most painful area Assessment & Plan (12/12/2021 9:35 AM CDT): chronic pain of bilateral legs s/p fracture, shoulder and back. On [place] 7.5-325 q6h prn at home - tylenol [...] events Assessment & Plan (10/18/2017 5:57 PM LOAN PROCESSING SUPERVISOR): Referred to pain mgmt for further eval/tx. Wound dehiscence 10/18/2017 Assessment & Plan (10/18/2017 5:58 PM LOAN PROCESSING SUPERVISOR): Referral given 2 months ago to be seen by wound care. Patient did not follow up with them. Seizure disorder 07/20/2017 Assessment & Plan (08/03/2022 3:28 PM LOAN PROCESSING SUPERVISOR): Controlled. Continue home keppra & oxcarbazapine. Assessment & Plan (08/02/2022 2:23 PM LOAN PROCESSING SUPERVISOR): Controlled. Continue home keppra & oxcarbazapine. Assessment & Plan (08/01/2022 10:57 AM LOAN PROCESSING SUPERVISOR): Controlled. Continue home keppra & oxcarbazapine. Assessment & Plan (07/31/2022 1:51 PM LOAN PROCESSING SUPERVISOR): Controlled. Continue home keppra & oxcarbazapine. Assessment & Plan (07/30/2022 1:33 PM LOAN PROCESSING SUPERVISOR): Controlled. Continue home keppra & oxcarbazapine. Assessment & Plan (07/27/2022 8:25 PM LOAN PROCESSING SUPERVISOR): Controlled. Continue home keppra & oxcarbazapine. [...] on gabapentin patient was previously followed at [facility] in [facility]. Plans continue gabapentin this time Assessment & Plan (10/18/2017 5:56 PM LOAN PROCESSING SUPERVISOR): Self-reported, patient was referred to neurology 2 months ago immediately after she reported a seizure. Patient did not mellisa appt with neurology, patient encouraged to comply. Personality disorder 07/20/2017 Assessment & Plan (03/19/2018 2:33 PM CDT): Psychiatric referral made Assessment & Plan (10/18/2017 5:53 PM LOAN PROCESSING SUPERVISOR): Encouraged patient to f/u through with Psychiatry referral. Bipolar 1 disorder, depressed, mild 07/20/2017 Assessment & Plan (08/03/2022 3:17 PM LOAN PROCESSING SUPERVISOR): Symptoms controlled, cont home regimen of sertraline, Seroquel Assessment & Plan (08/02/2022 2:23 PM LOAN PROCESSING SUPERVISOR): Symptoms controlled, cont home regimen of sertraline, Seroquel Assessment & Plan (08/01/2022 10:56 AM LOAN PROCESSING SUPERVISOR): Symptoms controlled, cont home regimen of sertraline, Seroquel Assessment & Plan (07/31/2022 1:51 PM LOAN PROCESSING SUPERVISOR): Symptoms controlled, cont home regimen of sertraline, Seroquel Assessment & Plan (07/30/2022 1:33 PM LOAN PROCESSING SUPERVISOR): Symptoms controlled, cont home regimen of sertraline, Seroquel Assessment & Plan (07/29/2022 2:42 PM LOAN PROCESSING SUPERVISOR): Symptoms controlled, cont home regimen of sertraline, Seroquel Assessment & Plan (07/27/2022 8:23 PM LOAN PROCESSING SUPERVISOR): Symptoms controlled, cont home regimen of [...] hallucinations. Assessment & Plan (10/18/2017 5:53 PM LOAN PROCESSING SUPERVISOR): Rx refills given. Encouraged patient to [...] therapy Assessment & Plan (10/18/2017 5:51 PM LOAN PROCESSING SUPERVISOR): Hypertension is improving with treatment. Continue current treatment regimen. Dietary sodium restriction. Weight loss. Continue current medications. Blood pressure will be reassessed at the next regular appointment. Insomnia 07/20/2017 Assessment & Plan (10/18/2017 5:52 PM LOAN PROCESSING SUPERVISOR): Will not fill both trazodone AND [...] 07/20/2017 Assessment & Plan (10/18/2017 5:56 PM LOAN PROCESSING SUPERVISOR): Encouraged patient to follow through with nephrology referral she was given 2 months ago. Referral re-printed. Class 3 severe obesity with body mass index (BMI) greater than or equal to 70 in adult 07/20/2017 Assessment & Plan (08/03/2022 3:26 PM LOAN PROCESSING SUPERVISOR): Pt with severe obesity, complicated by SHELDON/OHS. Leg fractures in 2020 managed nonoperatively, pt has been bed bound and living in SNF since that time. Assessment & Plan (08/02/2022 2:23 PM LOAN PROCESSING SUPERVISOR): Pt with severe obesity, complicated by SHELDON/OHS. Leg fractures in 2020 managed nonoperatively, pt has been bed bound and living in SNF since that time. Assessment & Plan (08/01/2022 10:56 AM LOAN PROCESSING SUPERVISOR): Pt with severe obesity, complicated by SHELDON/OHS. Leg fractures in 2020 managed nonoperatively, pt has been bed bound and living in SNF since that time. Assessment & Plan (07/31/2022 1:51 PM LOAN PROCESSING SUPERVISOR): Pt with severe obesity, complicated by SHELDON/OHS. Leg fractures in 2020 managed nonoperatively, pt has been bed bound and living in SNF since that time. Assessment & Plan (07/30/2022 1:33 PM LOAN PROCESSING SUPERVISOR): Pt with severe obesity, complicated by SHELDON/OHS. Leg fractures in 2020 managed nonoperatively, pt has been bed bound and living in SNF since that time. Assessment & Plan (07/27/2022 8:25 PM LOAN PROCESSING SUPERVISOR): Pt with severe obesity, complicated by SHELDON/OHS. Leg fractures in 2020 managed nonoperatively, pt has been bed bound and living in SNF since that time. Assessment & Plan (01/23/2022 2:22 PM CDT): PT with severe obesity, complicated by HSELDON/OHS as below. Leg fractures in 2020 managed [...] she informs me that Dr. Panda in [facility] is willing to move this pannus patient referred to this particular physician to address this problem soon as possible. 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 Assessment & Plan (10/18/2017 5:56 PM LOAN PROCESSING SUPERVISOR): Obesity is unchanged. Discussed the patient's [...] = 0.6 oz pur e alcohol) Occasional [employer] Utilities Answer Date Recorded In the past 12 months has [employer], gas, oil, or water [employer] threatened to shut off services in your home? No 01/15/2025 Social Connection and Isolation Panel Answer Date Recorded In a typical week, how many times do you talk on the phone with family, friends, or neighbors? Once a week 01/15/2025 How often do you get together with friends or re latives? Once a week 01/15/2025 How often do you attend alevism or evangelical serv ices? Never 01/15/2025 Do you belong [...] slept in a mcc (including now)? No 07/30/2022 Housing Stability Vital [...] time in the past 12 m [facility], were you homeless or living in a mcc (including now)? No 01/15/2025 Personal Safety Answer [...] on 19. Hep C Ab Nonreactive Nonreactive [facility] Comment: Interpretive Data Nonreactive: Antibodies [...] last revised on 2019. HepBsAg Nonreactive Nonreactive [facility] Blood 01/15/2025 3:30 PM CDT 01/15/2025 4:03 PM CDT Ajith Cruz MD LAB MICROBIOLOGY - GENERAL OR DERABLES Final Result Performing Organization Address City/[facility]/ZIP Co de Phone Number JOHAN [address] [address] Department [place] [address] * Occult blood, fecal non neoplasm screening (08/02/2017 7:41 AM LOAN PROCESSING SUPERVISOR) Pathologist [facility] Occult blood, fecal Negative Negative [facility] ([facility]) Collection date , feces [id number] [facility] Collection time 1, feces 739 [facility]) Stool 08/02/2017 7:41 AM LOAN PROCESSING SUPERVISOR 08/02/2017 7:44 AM LOAN PROCESSING SUPERVISOR Pam Rivas MD LAB BODY FLUIDS AND STOOLS ORDER SARIKA Final Result [facility] Department [place] [address] * MAMMOGRAPHY (01/11/2002) Pathologist [facility] Mammogram Normal Historical Provider HEALTH MAINTENANCE Final Result * COLONOSCOPY (10/14/2001) Pathologist [facility] Colonoscopy Unknown Historical Provider HEALTH MAINTENANCE Final Result from Last 3 Months or Most Recently Relevant to Health Maintenance
--- OUTSIDE RECORDS SUMMARY | 2025-04-29 12:18 | XMS_ITS | Patient Health Record ---
Author Organization [facility] Address [address] [place] [id number] Care Team Providers Care First Beater Name Role Phone Anastacio Mehta Primary Care Provider Alex Salazar Unavailable [phone] ALLERGIES Allergen (clinical drug ingredient) Drug/Non Drug [...] Active confirmed Chronic kidney disease stage 3 (650476826) Problem Essential (primary) hypertension (I10) Active confirmed Essential hypertension (31389537) Problem Proteinuria, unspecified (R80.9) Active confirmed Proteinuria (21830280) Problem Type 2 diabetes mellitus with other diabetic kidney complication (E11.29) Active confirmed Diabetic renal disease (564475307) Problem Morbid (severe) obesity due to excess calories (E66.01) Active confirmed Morbid obesity (639158133) Problem Type 2 diabetes mellitus with diabetic chronic kidney disease (E11.22) Active confirmed Diabetic renal disease (716161617) PLAN OF TREATMENT Future Test Test Name Order Date Urinalysis, Routine 10/26/2016 PTH, Intact 10/26/2016 RENAL PANEL 10/26/2016 Vitamin D, 25-Hydroxy 10/26/2016 URINE PROTEIN W/CREAT RATIO 10/26/2016 Insurance Providers Payer Name Payer Address Payer Phone Subscriber Number Group Number Insured Name Patient Relationship to Insured Coverage Start Date Coverage End Date [place] [address] [place] [address] [id number] Cathy Greene Self - patient is the insured MEDICAL (GENERAL) HISTORY Medical History History ICD Code CKD Stage III Hypertension Anemia Diabetes Mellitus Peripheral Neuroopathy Fibromyalgia Obesity Morbid Osteoarthritis Knee Restless Leg Syndrome Surgical History Surgery Date(Month/Year) Laparoscopic Hysterectomy
--- OUTSIDE RECORDS SUMMARY | 2025-04-29 12:18 | XMS_ITS | Encounter Summary ---
Author Organization [facility] Health Address [facility] [place] [address] Care Team Providers Care Tax Advisor Name Role Phone Terri Balderas MD Primary Care Provider [phone] Encounter Details Date Type Department Care Team (Late st Contact Info) Description 09/25/2024 Lab Requisition [facility] [address] [place] [address] [facility] [place] [id number] Social History Tobacco Use Types Packs/Day Years [...] and heating? Not hard at all 03/27/2024 [facility] of Occupat ional Health - Occupational Stress [...] Comments CREATININE BLOOD STAT 09/25/2024 7:00 PM LAND MANAGEMENT FORESTER documented in this encounter Results * (ABNORMAL) CREATININE BLOOD (09/25/2024 7:00 PM LAND MANAGEMENT FORESTER) Creatinine 4.74(H) 0.57 - 1.11 mg/dL 09/25/2024 8:18 PM LAND MANAGEMENT FORESTER [facility] eGFR by CKD-EPI 10(L) >=90 mL/min/1.7 3 m2 09/25/2024 8:18 PM LAND MANAGEMENT FORESTER [facility] Blood BLOOD SPECIMEN / Unknown Venipuncture / Unknown 09/25/2024 7:00 PM LAND MANAGEMENT FORESTER 09/25/2024 7:51 PM LAND MANAGEMENT FORESTER Darrel Melendrez LAB - CHEMISTRY ORDERABLES Adrianna mckeon Result [facility] [address] [place] [address] documented in this encounter Visit Diagnoses Not on filedocumented in this encounter Additional Health Concerns Infection Onset Date Last Indicated Resolved Time MRSA Hx Comment:nasal 2024 03/27/2024 ESBL GNR 03/26/2024 03/26/2024 MDRO 03/26/2024 03/26/2024 MRSA 03/26/2024 03/26/2024 documented as of this encounter Care Teams Tax Advisor Relationship Specialty Start Date End Date Terri Balderas MD [address] [place] [address] PCP - General Family Medicine 03/27/24 documented as of this encounter
--- OUTSIDE RECORDS SUMMARY | 2025-04-29 12:18 | XMS_ITS | Continuity of Care Document ---
Author Organization Carla Tariq MD [facility] Address [address] [place] [address] MD Marciano [phone] Phone Care Team Providers Care Wire Stitcher Machine Name Role Phone Carla BLANTON, [facility] Unavailable Unavailable Advance Directives Directive Yes / No Effective Date File Name No Information Encounters Encounter Description Practice Location Reason(s) For Visit Diagnoses Date Provider Providers Copied on Encounter Carla Tariq MD [facility], [address] [facility] Marciano Reardon [place], [id number], [place] tel:[phone] [facility] No Information Carla BLANTON [facility]. [address] [facility] Marciano Reardon [place], [id number], [place]. tel:[phone] Family History Family Member Type Diagnosis Age At Onset No Information Payers Payer name Insurance type Covered libertarian ID Authoriza tion(s) Medicare MD REYES [id number] Social History Type Description Quantity Date Captured [...]
--- OUTSIDE RECORDS SUMMARY | 2025-04-29 12:18 | XMS_ITS | Clinical Summary ---
Author Organization [facility] Address [address] [place] [address] Care Team Providers Care Dairy Hand Name Role Phone Terri Balderas MD Primary Care Provider [phone] Source Comments [facility],non-owned Affiliates and Associated Physician Practices is amultiple site organization consisting of ambulatory clinics and hospital sitesin [place], [place], [place] and [place]. This disclosure is being madepursuant to the Care Everywhere program and may not contain all information available regarding this patient. Last updated 18.[facility] Allergies Active Allergy Reactions Criticality Noted Date Comments Penicillins Unknown Medium 08/10/2017 Pt states she doesn't know what happened but she was in the hospital because of it when she was a child Has tolerated cephalosporins in the past Unknown reaction as a child Patient Stated That she took Amoxicillin prescription picked up from [facility] on 05/19/19 with no problems. -08/10/19 [...] fluticasone propionate (Flonase) 50 MCG/ACT nasal spray [place] 1 (one) spray into each nostril 2 times daily Active gabapentin (Neurontin) 100 MG capsule Take 1 (one) capsule by mouth 3 times daily Active polyethylene glycol 3350 (Miralax) 17 GM/SCOOP powder Take 17 (seventeen) g by mouth once daily Active HYDROcodone-rosa taminophen ([place]) 5-325 MG tablet Take 1 (one) tablet [...] hours later. Active SALINE NASAL SPRAY NA [place] 2 sprays into the nose every 6 [...] and heating? Not hard at all 03/27/2024 [employer] [facility] - Occupational Stress [...] place to sleep or slept in a chcf (including now)? No 03/27/2024 Comments Unknown Sex [...] Comments CREATININE BLOOD STAT 09/25/2024 7:00 PM PRISM MEASURER HEMOGLOBIN A1C Routine 03/29/2024 3:59 AM CDT from Last 3 Months or Most Recently Relevant to Health Maintenance Results * (ABNORMAL) CREATININE BLOOD (09/25/2024 7:00 PM PRISM MEASURER) Creatinine 4.74(H) 0.57 - 1.11 mg/dL 09/25/2024 8:18 PM PRISM MEASURER [facility] eGFR by CKD-EPI 10(L) >=90 mL/min/1.7 3 m2 09/25/2024 8:18 PM PRISM MEASURER [facility] Blood BLOOD SPECIMEN / Unknown Venipuncture / Unknown 09/25/2024 7:00 PM PRISM MEASURER 09/25/2024 7:51 PM PRISM MEASURER [facility] LAB - CHEMISTRY ORDERABLES Adrianna l Result Performing Organization Address City/State/[place] Co de Phone Number [facility] [address] [place] [id number] * HEMOGLOBIN A1C (03/29/2024 3:59 AM CDT) Hemoglobin A1c 5.0 <5.7 % 03/29/2024 4:52 AM CDT [facility] Estimated Average Glucose 97 mg/dL 03/29/2024 4:52 AM CDT [facility] Blood BLOOD SPECIMEN / Unknown Venipuncture / Unknown 03/29/2024 3:59 AM CDT 03/29/2024 4:08 AM CDT Narrative [facility] - 03/29/2024 4:52 AM CDT [...] LAB - CHEMISTRY ORDERABLES Fin al Result [facility] [address] [place] [id number] from Last 3 Months or Most Recently Relevant to Health Maintenance Additional Health Concerns Infection Onset Date Last Indicated MRSA Hx Comment:nasal 2024 03/27/2024 ESBL GNR 03/26/2024 03/26/2024 MDRO 03/26/2024 03/26/2024 MRSA 03/26/2024 03/26/2024 Insurance MEDICAID AETNA [facility] AETNA MEDICARE ADV Advance Directives * Full Code (Latest Code Status on File) Date Activated Date Inactivated Comments 2024 7:37 AM 04/08/2024 5:26 PM * Full Code Date Activated Date Inactivated Comments 2024 5:02 AM 2024 7:37 AM Care Teams Dairy Hand Relationship Specialty Start Date End Date Terri Balderas MD [address] [place] [address] PCP - General Family Medicine 03/27/24
--- NOTE | 2025-04-29 12:19 | ECG_ITS ---
Test Date: 2025-04-29 12:26:52 Measurements Intervals [place] Rate: 63 P: 180 VT: 174 QRS: 73 QRSD: 101 T: 65 QT: 397 QTc: 409 Interpretive Statements SINUS RHYTHM LOW QRS VOLTAGE IN PRECORDIAL LEADS BASELINE ARTIFACT- I, II, III, AVR, AVL, AVF, V4-V6 BORDERLINE ECG Compared to ECG 04/06/2025 09:30:51 NO SIGNIFICANT CHANGE Electronically Signed On 04-29-2025 14:48:48 CDT by Simon Lozano D.O.
[2025-04-29 12:40] LABS: Hematocrit 34.3 % (37.0-47.0); Hemoglobin 10.2 g/dL (12.0-15.0); Immature Granulocyte Percent A 0.9 % (0-0.5); Lymphocytes Absolute Auto 0.58 K/mm3 (0.9-3.2); Mean Corpuscular HGB Conc 29.7 g/dl (32-36); Mean Corpuscular Hemoglobin 28.3 pg (26-34); Mean Corpuscular Volume 95.0 fl (80-100); Nucleated Red Blood Cells Absolute Auto 0.020 K/mm3 (0.0-0.012); Nucleated Red Blood Cells Perc 0.3 % (0.0-0.2); Platelet Count Result 120 k/mm3 (150-375); Red Blood Count 3.61 M/mm3 (4.2-5.4); White Blood Count 7.6 K/mm3 (4.5-10.0)
[2025-04-29 12:50] LABS: INR 1.0; Prothrombin Time 13.6 Seconds (11.1-14.7)
[2025-04-29 12:51] LABS: Partial Thromboplastin Time 25.7 Seconds (22.3-36.8)
[2025-04-29 13:01] LABS: Troponin I 0.015 ng/mL (0.000-0.034)
[2025-04-29 13:06] LABS: Alanine Aminotransferase 12 U/L (6-35); Albumin Level 4.0 g/dL (3.5-5.1); Alkaline Phosphatase 116 U/L (38-126); Anion Gap 18 mmol/L (4-12); Aspartate Amino Transferase 16 U/L (14-36); Bilirubin,Total 0.9 mg/dL (0.2-1.3); Blood Urea Nitrogen 109 mg/dL (7-17); Calcium 8.4 mg/dL (8.4-10.2); Carbon Dioxide 20 mmol/L (22-30); Chloride 101 mmol/L (98-107); Estimated CRCL calculation 11 ml/min; Estimated Glomerular Filt Rate 6; Glucose 168 mg/dL (65-110); Potassium 6.2 mmol/L (3.4-5.0); Sodium 139 mmol/L (137-145); Total Protein 6.9 g/dL (6.3-8.2)
[2025-04-29 13:08] LABS: NT Pro B Type Natriuretic Pept 6940 pg/mL (19.9-100)
[2025-04-29 13:17] LABS: Anisocytosis 1+; Hypochromasia 1+; Ovalocytes 1+; Schistocytes None Seen; Tear Drop Cells 1+
--- NOTE | 2025-04-29 13:21 | ED_ITS ---
HPI - General Adult General Chief complaint: Unspecified Stated complaint: wants dialysis Time Seen by Provider: 04/29/25 12:01 History of Present Illness HPI narrative: Patient is a 65-year-old female who presents ER with chest pain. Feels like some ice fishing on center of her chest. Ongoing for 2 days since she missed her dialysis. No fevers or chills or sweats. No leg edema. Is recently admitted for fluid overload and pneumonia. No history of [place]. Related Data Home Medications ?Medication ?Instructions ?Recorded ?Confirmed ?Last Taken ?Type atorvastatin 40 mg tablet 40 mg PO QHS 06/30/21 04/29/25 04/28/25 History ferrous sulfate 325 mg (65 mg 325 mg PO DAILY 06/30/21 04/29/25 04/29/25 History iron) tablet fluticasone propionate 50 1 spray intranasal DAILY 06/30/21 04/29/25 04/29/25 History mcg/actuation nasal spray,suspension hydrocodone 5 mg-acetaminophen 325 1 tablet PO Q8H PRN Pain Rated 4-6 06/30/21 04/29/25 04/29/25 History mg tablet levetiracetam 500 mg tablet 500 mg PO BID 06/30/21 04/29/25 04/29/25 History acetaminophen 325 mg tablet 650 mg PO Q6H PRN fever or pain 01/13/25 04/29/25 04/21/25 11:30 History (Aminofen) albuterol 90 mcg-budesonide 80 2 inh inhalation .every 6 hours 01/13/25 04/29/25 04/28/25 History mcg/actuation HFA aerosol inhaler PRN shortness of breath or wheezing (Airsupra) baclofen 5 mg tablet 5 mg PO Q12H 01/13/25 04/29/25 04/29/25 History cholecalciferol (vitamin D3) 50 2,000 unit PO DAILY 01/13/25 04/29/25 04/29/25 History mcg (2,000 unit) capsule diclofenac sodium 1 % topical gel 1 ea topical Q6H PRN pain 01/13/25 04/29/25 Unknown History (Arthritis Pain (diclofenac)) diphenhydramine HCl 25 mg capsule 50 mg PO Q8H PRN allergy symptoms 01/13/25 04/29/25 04/18/25 13:40 History (Aler-Cap) ergocalciferol (vitamin D2) 1,250 1,250 mcg PO WEEKLY 01/13/25 04/29/25 04/28/25 History mcg (50,000 unit) capsule escitalopram oxalate 10 mg tablet 20 mg PO DAILY 01/13/25 04/29/25 04/28/25 History hydroxyzine HCl 25 mg tablet 25 mg PO TID 01/13/25 04/29/25 04/29/25 History ipratropium 0.5 mg-albuterol 3 mg 3 ml inhalation Q2H PRN shortness 01/13/25 04/29/25 03/27/25 22:40 History (2.5 mg base)/3 mL nebulization of breath soln gabapentin 100 mg capsule 100 mg PO BID 04/06/25 04/29/25 04/23/25 07:00 History insulin aspart U-100 100 unit/mL 1 sliding scale dose subcut 04/06/25 04/29/25 04/23/25 11:40 History (3 mL) subcutaneous pen (Novolog .before meals FlexPen U-100 Insulin aspart) midodrine 5 mg tablet 5 mg PO .COMPLEX 04/06/25 04/29/25 04/29/25 History montelukast 10 mg tablet 10 mg PO DAILY 04/06/25 04/29/25 04/29/25 History nystatin 100,000 unit/gram topical 1 applic topical BID 04/06/25 04/29/25 04/29/25 History powder ondansetron HCl 4 mg tablet 4 mg PO Q8H PRN nausea and vomiting 04/06/25 04/29/25 04/28/25 History oxcarbazepine 150 mg tablet 150 mg PO BID 04/06/25 04/29/25 04/28/25 History quetiapine 25 mg tablet 50 mg PO HS 04/06/25 04/29/25 04/28/25 History trazodone 50 mg tablet 50 mg PO HS 04/06/25 04/29/25 04/22/25 22:30 History cyanocobalamin (vitamin B-12) 1,000 mcg PO DAILY 04/07/25 04/29/25 04/23/25 07:00 History 1,000 mcg tablet (Vitamin B-12) [id number] 2.5 15 ml PO Q6H PRN cough 04/07/25 04/29/25 12/30/24 08:30 History mg-5 mg-50 mg/5 mL oral liquid (Robitussin Cough and Cold CF) lactulose 10 gram/15 mL oral 30 ml PO DAILY constipation 04/29/25 04/29/25 04/28/25 History solution (Enulose) prednisone 10 mg tablet 10 mg PO DAILY 04/29/25 04/29/25 04/29/25 History Allergies Allergy/AdvReac Type Severity Reaction Status Date / Time Penicillins Allergy Severe Anaphylaxis Verified 04/29/25 16:16 Review of Systems 2 Review of Systems: All systems reviewed & are unremarkable except as noted in HPI and below Constitutional: Constitutional: Reports no additional constitutional complaints ENT: Reports system reviewed and no additional complaints, except as documented Cardiovascular: Cardiovascular: Reports no additional cardiovascular complaints Respiratory: Respiratory: Reports no additional respiratory complaints Gastrointestinal: Gastrointestinal: Reports no additional gastrointestinal complaints [facility] Past Medical History Medical History (Updated 04/29/25 @ 20:32 by Clinton Roberts MD) Hypothyroidism DM2 (diabetes mellitus, type 2) Pulmonary embolism Occult blood in stools Acute on chronic anemia Seizure disorder Immobility Rheumatoid arthritis PAF (paroxysmal atrial fibrillation) Fibromyalgia Gout Obesity hypoventilation syndrome [place] (obstructive sleep apnea) Chronic respiratory failure with hypoxia Atrial fibrillation COPD (chronic obstructive pulmonary disease) Diastolic heart failure Bipolar 1 disorder Anxiety and depression Left renal mass suspected malignancy Nephrolithiasis End stage renal disease ESRD on dialysis CHF (congestive heart failure) HTN (hypertension) Resolved, no longer on medications. Now on midodrine. COPD (chronic obstructive pulmonary disease) Surgical History Surgical History History of cystoscopy S/P ureteral reimplantation History of hysterectomy S/P hemodialysis catheter insertion Family History Family History Father Lung cancer Grandparent Colon cancer Mother Congestive heart failure Social History Social History Smoking packs per day: 1 Smoking cigarettes per day: 20.0 Years smoked: 30 Smoking pack-years: 30.00 Smoking status: Former smoker Tobacco type: cigarettes Second hand tobacco smoke exposure: Yes Alcohol intake: never Substance use: never Substance use type: does not use Last use: 06/13/21 Do You Feel Safe in your Home?: Yes Lack of Transportation: No Lack of Food: Never True Current Housing: I Have Housing Concerned About Future Housing: No Difficulty Paying Gas/Electric Bills: No Difficulty Paying for Meds: No Currently Unemployed: No Education: High School Diploma/GED Difficulty w/ Childcare or Family Care: No Gender identity (if verbalized by the patient): Female Sexual Orientation (if Verbalized by the Patient): Straight or Heterosexual Spiritual care concerns: No Exam 2 Narrative: GENERAL: Well-appearing, well-nourished, and in no acute distress. HEAD: Normocephalic, atraumatic. ENT: Mucous membranes moist. CHEST: Bibasilar crackles. No respiratory distress. HEART: Regular rate and rhythm. Normal peripheral pulses. ABDOMEN: Soft, nontender, nondistended. EXTREMITIES: Normal range of motion. No edema. SKIN: Warm, dry, no rash. NEURO: Alert and oriented x3. PSYCH: Normal mood and affect. Course Course Emergency Course: Admit to hospitalist service. Nephrology consulted. Medical treatment for hyperkalemia initiated. Lasix 80 mg as she still makes urine. Vital Signs Vital signs: Vital Signs Temperature 98.5 F 04/29/25 12:42 Pulse Rate 65 04/29/25 12:42 Respiratory Rate 04/29/25 12:42 Blood Pressure 156/50 H 04/29/25 12:42 Pulse Oximetry 100 04/29/25 12:42 Oxygen Delivery Nasal Cannula 04/29/25 12:42 Oxygen Flow Rate 3 04/29/25 12:42 Temperature 98.2 F 04/29/25 19:52 Pulse Rate 74 04/29/25 19:52 Respiratory Rate 04/29/25 19:52 Blood Pressure 144/69 H 04/29/25 19:52 Pulse Oximetry 100 04/29/25 19:52 Oxygen Delivery Nasal Cannula 04/29/25 14:13 Oxygen Flow Rate 3 04/29/25 14:13 Medical Decision Making Vital Signs Vital Signs: Vital Signs Temperature 98.5 F 04/29/25 12:42 Pulse Rate 65 04/29/25 12:42 Respiratory Rate 04/29/25 12:42 Blood Pressure 156/50 H 04/29/25 12:42 Pulse Oximetry 100 04/29/25 12:42 Oxygen Delivery Nasal Cannula 04/29/25 12:42 Oxygen Flow Rate 3 04/29/25 12:42 Temperature 98.2 F 04/29/25 19:52 Pulse Rate 74 04/29/25 19:52 Respiratory Rate 17 04/29/25 19:52 Blood Pressure 144/69 H 04/29/25 19:52 Pulse Oximetry 100 04/29/25 19:52 Oxygen Delivery Nasal Cannula 04/29/25 14:13 Oxygen Flow Rate 3 04/29/25 14:13 Lab Data 04/29/25 12:33 04/29/25 16:26 Labs: Lab Results 04/29/25 Range/Units 12:33 WBC 7.6 (4.5-10.0) K/mm3 RBC 3.61 L (4.2-5.4) M/mm3 Hgb 10.2 L (12.0-15.0) g/dL Hct 34.3 L (37.0-47.0) % MCV 95.0 (80-100) fl MCH 28.3 (26-34) pg MCHC 29.7 L (32-36) g/dl RDW 16.2 H (11.5-14.5) % Plt Count 120 L (150-375) k/mm3 MPV 8.3 (7.4-10.4) fl Immature Gran % (Auto) 0.9 H (0-0.5) % Neut % (Auto) 87.5 H (45.5-73.1) % Lymph % (Auto) 7.6 L (18.3-44.2) % [place] % (Auto) 3.9 (2.6-8.5) % Eos % (Auto) 0.0 (0-4.4) % Baso % (Auto) 0.1 L (0.2-1.2) % Lymph # (Auto) 0.58 L (0.9-3.2) K/mm3 [place] # (Auto) 0.3 (0.1-0.6) K/mm3 Eos # (Auto) 0.0 (0-0.3) K/mm3 Baso # (Auto) 0.0 (0.0-0.1) K/mm3 Abs Immat Gran (auto) 0.07 H (0.00-0.031) K/mm3 Absolute Neuts (auto) 6.7 (1.3-6.7) K/mm3 Absolute Nucleated RBC 0.020 H (0.0-0.012) K/mm3 Band Neutrophils % Not Reportable Nucleated RBC % 0.3 H (0.0-0.2) % Platelet Estimate Decreased (Adequate) Hypochromasia 1+ Anisocytosis 1+ Tear Drop Cells 1+ Ovalocytes 1+ Schistocytes None seen PT 13.6 (11.1-14.7) Seconds INR 1.0 APTT 25.7 (22.3-36.8) Seconds Sodium 139 (137-145) mmol/L Potassium 6.2 H* (3.4-5.0) mmol/L Chloride 101 (98-107) mmol/L Carbon Dioxide 20 L (22-30) mmol/L Anion Gap 18 H (4-12) mmol/L BUN 109 H* D (7-17) mg/dL Creatinine 7.31 H (0.7-1.0) mg/dL Estim Creat Clear Calc 11 ml/min Estimated GFR 6 L (59 - ) Glucose 168 H (65-110) mg/dL Calcium 8.4 (8.4-10.2) mg/dL Total Bilirubin 0.9 (0.2-1.3) mg/dL AST 16 (14-36) U/L ALT 12 (6-35) U/L Alkaline Phosphatase 116 (38-126) U/L Troponin I 0.015 (0.000-0.034) ng/mL NT-Pro-B Natriuret Pep 6940 H (19.9-100) pg/mL Total Protein 6.9 (6.3-8.2) g/dL Albumin 4.0 (3.5-5.1) g/dL Imaging Data Radiologist's impression: ITS Impressions Chest X-Ray 04/29/25 13:23 Impression: [id number] pulmonary edema. Stable support line. ECG Data EKG #1: ECG completion date: 04/29/25 ECG completion time: 12:26 EKG Interpretation: normal rate, sinus rhythm, no ST changes, normal QT and NL axis Critical Care Time Critical Care Time Critical Care Time: Yes Total Critical Care Time: 35 Discharge Plan Discharge Clinical Impression: Hyperkalemia, Pulmonary edema Patient Disposition: Still a Patient Condition: Stable
[2025-04-29] MEDS: SODIUM BICARBONATE 8.4% 50 MEQ/50 ML SYRINGE IV PUSH ×2 (14:06→18:24)
[2025-04-29] MEDS: CALCIUM GLUCONATE 1,000 MG/10 ML VIAL 1000 MG IV PUSH (14:06)
[2025-04-29] MEDS: DEXTROSE 50% 25 GM/50 ML SYRINGE IV PUSH ×2 (14:06→18:23)
[2025-04-29] MEDS: INSULIN HUMAN REGULAR (*BKC) 100 UNITS/ML IV PUSH (14:08)
[2025-04-29] MEDS: FUROSEMIDE INJ 100 MG/10 ML VIAL 80 MG IV PUSH (14:09)
--- NOTE | 2025-04-29 14:41 | P.HP_ITS ---
H&P: HPI History of Present Illness Date/Time: 04/29/25 14:41 Chief Complaint: Missed Dialysis Narrative: 65 y/o F with PMH of ESRD on HD (MWF), seizure disorder, chronic anemia, rheumatoid arthritis, paroxysmal AFib, gout, fibromyalgia, SHELDON, COPD, diastolic heart failure, bipolar 1 disorder, anxiety/depression, and hypertension presents here with missed dialysis. The patient presents here from [facility] via EMS for further evaluation after a missed dialysis treatment. The patient has a history of ESRD on hemodialysis on Mondays, Wednesdays, Fridays. She missed her most recent treatment on Wednesday, 04/27. She reports she missed her treatment because she began having cramping while being transferred to the transportation van. She attempted to squeeze her muscles to ease the cramping which caused her to have a bowel movement. Patient was then brought back inside to [facility] where they had difficulty with transfers which prompted cancellation of transportation services. Since missing treatment she has developed shortness of breath and mild dizziness. She denies chest pain, fevers, nausea, vomiting, or body aches. She does have a history of COPD, chronic respiratory failure with hypoxia, SHELDON, and obesity hypoventilation syndrome. She wears 3L nasal cannula baseline. Initial VS at presentation: 98.5? F, HR 65, RR 17, 156/50, and 100% on 3L nasal cannula. ED workup showed: No leukocytosis, hemoglobin 10.2 (8.7 on 04/25/2025), normal coags, potassium 6.2, creatinine 7.31, BUN 109, GFR 6, glucose 168, BNP 6940, and initial troponin 0.015. CXR showed mild to moderate pulmonary edema and a stable support line. EKG showed sinus rhythm, low QRS voltage in precordial leads, baseline artifact. No significant change when compared to previous. Review of Systems Review of Systems: All systems reviewed & are unremarkable except as noted in HPI and below [facility] Past Medical History Medical History (Updated 04/29/25 @ 15:05 by Elizabeth Ba APRN) Hypothyroidism DM2 (diabetes mellitus, type 2) Pulmonary embolism Occult blood in stools Acute on chronic anemia Seizure disorder Immobility Rheumatoid arthritis PAF (paroxysmal atrial fibrillation) Fibromyalgia Gout Obesity hypoventilation syndrome SHELDON (obstructive sleep apnea) Chronic respiratory failure with hypoxia Atrial fibrillation COPD (chronic obstructive pulmonary disease) Diastolic heart failure Bipolar 1 disorder Anxiety and depression Left renal mass suspected malignancy Nephrolithiasis End stage renal disease ESRD on dialysis CHF (congestive heart failure) HTN (hypertension) Resolved, no longer on medications. Now on midodrine. COPD (chronic obstructive pulmonary disease) Surgical History Surgical History History of cystoscopy S/P ureteral reimplantation History of hysterectomy S/P hemodialysis catheter insertion Family History Family History Father Lung cancer Grandparent Colon cancer Mother Congestive heart failure Social History Social History Smoking packs per day: 1 Smoking cigarettes per day: 20.0 Years smoked: 30 Smoking pack-years: 30.00 Smoking status: Former smoker Tobacco type: cigarettes Second hand tobacco smoke exposure: Yes Alcohol intake: never Substance use: never Substance use type: does not use Last use: 06/13/21 Do You Feel Safe in your Home?: Yes Lack of Transportation: No Lack of Food: Never True Current Housing: I Have Housing Concerned About Future Housing: No Difficulty Paying Gas/Electric Bills: No Difficulty Paying for Meds: No Currently Unemployed: No Education: High School Diploma/GED Difficulty w/ Childcare or Family Care: No Gender identity (if verbalized by the patient): Female Sexual Orientation (if Verbalized by the Patient): Straight or Heterosexual Spiritual care concerns: No Meds Home Medications and Allergies Home Medications ?Medication ?Instructions ?Recorded ?Confirmed ?Type atorvastatin 40 mg tablet 40 mg PO QHS 06/30/21 04/29/25 History ferrous sulfate 325 mg (65 mg 325 mg PO DAILY 06/30/21 04/29/25 History iron) tablet fluticasone propionate 50 1 spray intranasal DAILY 06/30/21 04/29/25 History mcg/actuation nasal spray,suspension hydrocodone 5 mg-acetaminophen 325 1 tablet PO Q8H PRN Pain Rated 4-6 06/30/21 04/29/25 History mg tablet levetiracetam 500 mg tablet 500 mg PO BID 06/30/21 04/29/25 History acetaminophen 325 mg tablet 650 mg PO Q6H PRN fever or pain 01/13/25 04/29/25 History (Aminofen) albuterol 90 mcg-budesonide 80 2 inh inhalation .every 6 hours 01/13/25 04/29/25 History mcg/actuation HFA aerosol inhaler PRN shortness of breath or wheezing (Airsupra) baclofen 5 mg tablet 5 mg PO Q12H 01/13/25 04/29/25 History cholecalciferol (vitamin D3) 50 2,000 unit PO DAILY 01/13/25 04/29/25 History mcg (2,000 unit) capsule diclofenac sodium 1 % topical gel 1 ea topical Q6H PRN pain 01/13/25 04/29/25 History (Arthritis Pain (diclofenac)) diphenhydramine HCl 25 mg capsule 50 mg PO Q8H PRN allergy symptoms 01/13/25 04/29/25 History (Aler-Cap) ergocalciferol (vitamin D2) 1,250 1,250 mcg PO WEEKLY 01/13/25 04/29/25 History mcg (50,000 unit) capsule escitalopram oxalate 10 mg tablet 20 mg PO DAILY 01/13/25 04/29/25 History hydroxyzine HCl 25 mg tablet 25 mg PO TID 01/13/25 04/29/25 History ipratropium 0.5 mg-albuterol 3 mg 3 ml inhalation Q2H PRN shortness 01/13/25 04/29/25 History (2.5 mg base)/3 mL nebulization of breath soln gabapentin 100 mg capsule 100 mg PO BID 04/06/25 04/29/25 History insulin aspart U-100 100 unit/mL 1 sliding scale dose subcut 04/06/25 04/29/25 History (3 mL) subcutaneous pen (Novolog .before meals FlexPen U-100 Insulin aspart) midodrine 5 mg tablet 5 mg PO .COMPLEX 04/06/25 04/29/25 History montelukast 10 mg tablet 10 mg PO DAILY 04/06/25 04/29/25 History nystatin 100,000 unit/gram topical 1 applic topical BID 04/06/25 04/29/25 History powder ondansetron HCl 4 mg tablet 4 mg PO Q8H PRN nausea and vomiting 04/06/25 04/29/25 History oxcarbazepine 150 mg tablet 150 mg PO BID 04/06/25 04/29/25 History quetiapine 25 mg tablet 50 mg PO HS 04/06/25 04/29/25 History trazodone 50 mg tablet 50 mg PO HS 04/06/25 04/29/25 History cyanocobalamin (vitamin B-12) 1,000 mcg PO DAILY 04/07/25 04/29/25 History 1,000 mcg tablet (Vitamin B-12) ogbrqdcwolexq-SB-akeaeektuya 2.5 15 ml PO Q6H PRN cough 04/07/25 04/29/25 History mg-5 mg-50 mg/5 mL oral liquid (Robitussin Cough and Cold CF) guaifenesin 600 mg tablet, 1,200 mg (2 x 600 mg) PO Q12HR #30 04/25/25 04/29/25 Rx extended release 12 hr (Mucus tabs Relief ER) peg [id number]-[id number]-qxbtagyk 1 1 drp EACH EYE QID PRN Dry Eye(S) 04/25/25 04/29/25 Rx %-0.2 %-0.2 % eye drops #5 mL (Artificial Tears ([id number])) lactulose 10 gram/15 mL oral 30 ml PO DAILY constipation 04/29/25 04/29/25 History solution (Enulose) prednisone 10 mg tablet 10 mg PO DAILY 04/29/25 04/29/25 History Allergies Allergy/AdvReac Type Severity Reaction Status Date / Time Penicillins Allergy Severe Anaphylaxis Verified 04/29/25 16:16 Vital Signs Vital Signs - 24 hr 04/29/25 12:42 04/29/25 12:48 04/29/25 12:53 Temperature 98.5 F Pulse Rate 65 68 72 Respiratory Rate 17 15 Blood Pressure 156/50 H 132/57 L Pulse Oximetry 100 99 Oxygen Delivery Nasal Cannula Oxygen Flow Rate 3 04/29/25 13:02 04/29/25 13:31 04/29/25 14:13 Temperature Pulse Rate 68 69 65 Respiratory Rate 14 15 15 Blood Pressure 100/87 109/96 H 124/53 L Pulse Oximetry 100 100 100 Oxygen Delivery Oxygen Flow Rate 04/29/25 14:13 Temperature Pulse Rate Respiratory Rate Blood Pressure Pulse Oximetry 100 Oxygen Delivery Nasal Cannula Oxygen Flow Rate 3 Exam Const: General: comfortable and no acute distress Other: , female, older than stated age, obese body habitus, nontoxic appearance HENMT: Face/Nose/Sinus: Normal nares present Mouth: Yes moist mucous membranes Eyes: General: appearance normal, both eyes and all related structures Scle ra: sclerae normal Pupils: Equal, round and reactive pupils present EOM: EOMs intact bilaterally Resp: Effort & Inspection: normal respiratory effort Other: Nasal cannula place, tolerating well. Distant breath sounds, bilateral crackles (L > R) Cardio: Rate: regular rate Rhythm: regular rhythm Other: S1-S2 present without murmur, rub, ectopy GI: Other: Abdomen soft, nondistended, nontender. Normoactive bowel sounds in all quadrants. Skin: General skin exam: normal color Wounds: no wounds Other: Scattered ecchymosis to bilateral upper extremities in no particular pattern Neuro: Speech: normal speech Motor exam (neuro): 5/5 motor strength present throughout Sensory Exam: normal sensation Other: A&O x4 Extrem: General: normal to inspection Psych: Mental Status: mental status grossly normal Affect: normal affect Other: Good insight and judgment, very pleasant H&P: Results Labs Labs: Short CBC 04/29/25 Range/Units 12:33 WBC 7.6 (4.5-10.0) K/mm3 Hgb 10.2 L (12.0-15.0) g/dL Hct 34.3 L (37.0-47.0) % Plt Count 120 L (150-375) k/mm3 BMP 04/29/25 12:33 Sodium 139 Potassium 6.2 H* Chloride 101 Carbon Dioxide 20 L BUN 109 H* D Creatinine 7.31 H Glucose 168 H Calcium 8.4 Cardiac Enzymes 04/29/25 Range/Units 12:33 Troponin I 0.015 (0.000-0.034) ng/mL Liver Function 04/29/25 Range/Units 12:33 Total Bilirubin 0.9 (0.2-1.3) mg/dL AST 16 (14-36) U/L ALT 12 (6-35) U/L Alkaline Phosphatase 116 (38-126) U/L Albumin 4.0 (3.5-5.1) g/dL Assessment and Plan Assessment and plan (1) End stage renal disease: Code(s): N18.6 - End stage renal disease Status: Acute Assessment and Plan: - hx of ESRD on Mondays, Wednesdays, Fridays. Missed most recent treatment on Wednesday, 04/27 - nephrology consulted for inpatient dialysis - plan for dialysis on Wednesday, 04/30 - trend electrolytes and correct as needed in interim (2) Hyperkalemia: Code(s): E87.5 - Hyperkalemia Status: Acute Assessment and Plan: - K 6.2 upon admission. - given calcium, Lasix, insulin/dextrose, sodium bicarbonate in the ED on 04/29. Plan for repeat BMP this afternoon ->> 5.7, repeat sodium bicarb, insulin/dextrose, calcium. add albuterol and Lokelma. Repeat this evening. - monitor (3) CHF (congestive heart failure): Qualifiers: Heart failure chronicity: unspecified Heart failure type: unspecified Qualified Code(s): I50.9 - Heart failure, unspecified Code(s): I50.9 - Heart failure, unspecified Status: Acute Assessment and Plan: - history of diastolic heart failure. mild exacerbation at present (reported SOB and per imaging) management via dialysis, however missed most recent treatment day. - patient still makes urine, given 80 of Lasix IV in the ED. Further fluid management via dialysis. - monitor respiratory status (4) DM2 (diabetes mellitus, type 2): Qualifiers: Chronic kidney disease stage: on chronic dialysis Diabetes mellitus complication detail: with chronic kidney disease Diabetes mellitus complication status: with kidney complications Diabetes mellitus fdc insulin use: with short order cook use Qualified Code(s): E11.22 - Type 2 diabetes mellitus with diabetic chronic kidney disease; N18.6 - End stage renal disease; Z79.4 - set up operator tool (current) use of insulin; Z99.2 - Dependence on renal dialysis Code(s): E11.9 - Type 2 diabetes mellitus without complications Status: Chronic Assessment and Plan: - hypoglycemia protocol - POC blood glucose ACHS - home medication: Hold home sliding scale - correct regimen ordered - high dose TIDWM, based off BMI - A1C 5.3% on 04/07/2025 (5) Afib: Qualifiers: Atrial fibrillation type: paroxysmal Qualified Code(s): I48.0 - Paroxysmal atrial fibrillation Code(s): I48.91 - Unspecified atrial fibrillation Status: Chronic Assessment and Plan: - hx of pAfib - initial EKG in the ED showed sinus rhythm - continue home medications: (6) Anemia: Qualifiers: Anemia type: due to chronic kidney disease Chronic kidney disease stage: on chronic dialysis Qualified Code(s): N18.6 - End stage renal disease; D63.1 - Anemia in chronic kidney disease; Z99.2 - Dependence on renal dialysis Code(s): D64.9 - Anemia, unspecified Status: Chronic Assessment and Plan: - hx of anemia of chronic disease/ESRD - Hgb 10.2 upon admission - baseline Hgb 8 - transfuse if <7 - monitor (7) Chronic respiratory failure: Qualifiers: Respiratory failure complication: hypoxia Qualified Code(s): J96.11 - Chronic respiratory failure with hypoxia Code(s): J96.10 - Chronic respiratory failure, unspecified whether with hypoxia or hypercapnia Status: Chronic Assessment and Plan: - hx of COPD, chronic respiratory failure with hypoxia, SHELDON, and obesity hypoventilation syndrome - wears 3L nasal cannula baseline, at baseline requirement (8) Obstructive sleep apnea treated with BiPAP: Code(s): G47.33 - Obstructive sleep apnea (adult) (pediatric) Status: Chronic Assessment and Plan: - continue home BiPAP Plan Diet: renal/dialysis GI Prophylaxis: n/a DVT Prophylaxis: SCDs IV fluids: none Lines/Tubes: Peripheral IV, HD catheter R chest Code Status: full code Quality VTE Prophylaxis VTE prophylaxis: mechanical ordered Hospitalist MIPS Advance Care Plan I have confirmed that the patient's Advanced Care Plan is present, code status is documented, or surrogate decision maker is listed in patient medical record.: Yes Medication Reconciliation I have utilized all available resources to obtain, update and review the patients current medications (includes all prescriptions, OTC, herbals, cannabis, and nutritional supplements).: Yes
[2025-04-29] MEDS: HYDROcodone/acetaminophen (*CRX) 5-325 MG TABLET 1 TAB PO (15:53)
--- NOTE | 2025-04-29 16:14 | ADMGEN ---
This patient, Cathy Greene, was admitted to IMU Room 205-02 at approximately 1600. Patient/family oriented to hospital policies and general routines including ID bracelet, bed and alarms, visiting hours, pain management, procedures, bathroom and other care routines, personal items, smoking policy, room service/diet, and visiting hours. Information on how to activate the Rapid Response Team has been discussed. Patient/Family are encouraged to report perceived risks to care and to ask questions if they do not understand what they are told or what they should do.
[2025-04-29 17:05] LABS: Anion Gap 17 mmol/L (4-12); Blood Urea Nitrogen 109 mg/dL (7-17); Calcium 8.1 mg/dL (8.4-10.2); Carbon Dioxide 19 mmol/L (22-30); Chloride 102 mmol/L (98-107); Estimated CRCL calculation 12 ml/min; Estimated Glomerular Filt Rate 6; Glucose 190 mg/dL (65-110); Potassium 5.7 mmol/L (3.4-5.0); Sodium 138 mmol/L (137-145)
[2025-04-29] MEDS: ALBUTEROL SULFATE NEB 2.5 MG/3 ML INH INHALATION (17:36)
[2025-04-29] MEDS: SODIUM POLYSTYRENE SULFONONATE 15 GM/60 ML BTL 30 GM PO (18:21)
[2025-04-29] MEDS: CALCIUM GLUC 1,000 MG/NS 50 ML 1,000 MG/50 ML BAG 100 MG IVPB (18:27)
[2025-04-29] MEDS: INSULIN HUMAN REGULAR (*BKC) 100 UNITS/ML 10 UNITS IV PUSH (18:29)
[2025-04-29 19:27] LABS: MRSA (PCR) DETECTED (NOT DETECTE)
[2025-04-29] MEDS: ONDANSETRON INJ 4 MG/2 ML VIAL IV PUSH (19:49)
[2025-04-29] MEDS: guaiFENesin 12 HR 600 MG TABCR 1200 MG PO (20:51)
[2025-04-29] MEDS: ATORVASTATIN 40 MG TABLET PO (20:51)
[2025-04-29] MEDS: GABAPENTIN 100 MG CAPSULE PO (20:51)
[2025-04-29] MEDS: MUPIROCIN 2% OINT 22 GM TUBE 1 APPLIC EACH NARE (21:01)
[2025-04-30] VITALS (34 sets, daily range): BP systolic 102–189; BP diastolic 48–87; PULSE 60–85; RESP 13–22; TEMP 36.4–37.2; O2SAT 97–100
[2025-04-30 00:34] LABS: Anion Gap 16 mmol/L (4-12); Blood Urea Nitrogen 115 mg/dL (7-17); Calcium 8.5 mg/dL (8.4-10.2); Carbon Dioxide 20 mmol/L (22-30); Chloride 101 mmol/L (98-107); Estimated CRCL calculation 12 ml/min; Estimated Glomerular Filt Rate 6; Glucose 182 mg/dL (65-110); Potassium 6.0 mmol/L (3.4-5.0); Sodium 137 mmol/L (137-145)
[2025-04-30 01:08] LABS: Hepatitis B Surface Antigen Negative (Negative)
[2025-04-30 01:26] LABS: Hepatitis B Surface Anti Res Negative
[2025-04-30] MEDS: SODIUM ZIRCONIUM CYCLOSILICATE 5 GM POWD.PACK PO (02:28)
[2025-04-30 03:57] LABS: Hematocrit 35.2 % (37.0-47.0); Hemoglobin 10.3 g/dL (12.0-15.0); Immature Granulocyte Percent A 1.3 % (0-0.5); Lymphocytes Absolute Auto 0.36 K/mm3 (0.9-3.2); Mean Corpuscular HGB Conc 29.3 g/dl (32-36); Mean Corpuscular Hemoglobin 28.0 pg (26-34); Mean Corpuscular Volume 95.7 fl (80-100); Nucleated Red Blood Cells Absolute Auto 0.000 K/mm3 (0.0-0.012); Nucleated Red Blood Cells Perc 0.0 % (0.0-0.2); Platelet Count Result 116 k/mm3 (150-375); Red Blood Count 3.68 M/mm3 (4.2-5.4); White Blood Count 7.2 K/mm3 (4.5-10.0)
[2025-04-30 04:21] LABS: Alanine Aminotransferase 11 U/L (6-35); Albumin Level 4.1 g/dL (3.5-5.1); Alkaline Phosphatase 106 U/L (38-126); Anion Gap 19 mmol/L (4-12); Aspartate Amino Transferase 14 U/L (14-36); Bilirubin,Total 0.8 mg/dL (0.2-1.3); Blood Urea Nitrogen 115 mg/dL (7-17); Calcium 8.3 mg/dL (8.4-10.2); Carbon Dioxide 19 mmol/L (22-30); Chloride 100 mmol/L (98-107); Estimated CRCL calculation 11 ml/min; Estimated Glomerular Filt Rate 6; Glucose 206 mg/dL (65-110); Magnesium 2.3 mg/dL (1.6-2.3); Potassium 6.7 mmol/L (3.4-5.0); Sodium 138 mmol/L (137-145); Total Protein 6.9 g/dL (6.3-8.2)
[2025-04-30] MEDS: ALBUTEROL SULFATE NEB 2.5 MG/3 ML INH 15 MG INHALATION (05:34)
[2025-04-30] MEDS: SODIUM BICARBONATE 8.4% 50 MEQ/50 ML SYRINGE IV PUSH (05:37)
[2025-04-30] MEDS: CALCIUM GLUCONATE 1,000 MG/10 ML VIAL 1000 MG IV PUSH (05:37)
[2025-04-30] MEDS: DEXTROSE 50% 25 GM/50 ML SYRINGE IV PUSH (05:41)
[2025-04-30] MEDS: INSULIN HUMAN REGULAR (*BKC) 100 UNITS/ML 10 UNITS IV PUSH (05:53)
[2025-04-30] MEDS: guaiFENesin 12 HR 600 MG TABCR 1200 MG PO ×2 (08:08→20:55)
[2025-04-30] MEDS: MIDODRINE HCL 10 MG TABLET PO ×2 (08:08→11:38)
[2025-04-30] MEDS: HYDROcodone/acetaminophen (*CRX) 5-325 MG TABLET 1 TAB PO ×3 (08:43→16:53)
[2025-04-30] MEDS: ALBUMIN HUMAN 25% 12.5 GM/50ML 100 ML 50 GM (09:31)
[2025-04-30 10:14] LABS: Hematocrit 32.3 % (37.0-47.0); Hemoglobin 9.6 g/dL (12.0-15.0); Immature Granulocyte Percent A 2.1 % (0-0.5); Lymphocytes Absolute Auto 0.19 K/mm3 (0.9-3.2); Mean Corpuscular HGB Conc 29.7 g/dl (32-36); Mean Corpuscular Hemoglobin 28.2 pg (26-34); Mean Corpuscular Volume 95.0 fl (80-100); Nucleated Red Blood Cells Absolute Auto 0.020 K/mm3 (0.0-0.012); Nucleated Red Blood Cells Perc 0.3 % (0.0-0.2); Platelet Count Result 124 k/mm3 (150-375); Red Blood Count 3.40 M/mm3 (4.2-5.4); White Blood Count 7.0 K/mm3 (4.5-10.0)
--- NOTE | 2025-04-30 10:50 | P.CONNP_ITS ---
Assessment and Plan Assessment and plan (1) End stage renal disease: Code(s): N18.6 - End stage renal disease Status: Acute Assessment and Plan: * HD today * continue outpatient schedule of Mondays, Wednesdays, and Fridays while hospitalized * may need repeat HD tomorrow depending on K+ level * follow electrolytes, volume status, and clearance (2) Hyperkalemia: Code(s): E87.5 - Hyperkalemia Status: Acute Assessment and Plan: * potassium 6.2 on admission * s/p medical management in ER (IV calcium, IV Lasix, IV insulin/dextrose, IV sodium bicarbonate) along with albuterol and lokelma * however, repeat K+ yesterday evening and today still elevated * HD today in an effort to control this issue * may need HD tomorrow as well (3) Chronic respiratory failure: Code(s): J96.10 - Chronic respiratory failure, unspecified whether with hypoxia or hypercapnia Status: Acute Assessment and Plan: * multifactorial etiology: * COPD * asthma * SHELDON * OHS * CHF * pulmonary edema * on chronic supplemental oxygen * on BiPAP at the longterm * continue supportive therapy (4) Volume overload: Code(s): E87.70 - Fluid overload, unspecified Status: Acute Assessment and Plan: * admission CXR concerning for edema * plan ongoing fluid removal with dialysis as tolerated by hemodynamics * continue current therapy/interventions (5) CHF (congestive heart failure): Qualifiers: Heart failure chronicity: unspecified Heart failure type: unspecified Qualified Code(s): I50.9 - Heart failure, unspecified Code(s): I50.9 - Heart failure, unspecified Status: Acute Assessment and Plan: * first noted in 2020 if not longer * Echo at that time with evidence of chronic diastolic dysfunction * recent Echo (March 2025) noted: * normal biventricular size and systolic function * valves are not well visualized in this study for overall appears to not have any significant valvular abnormalities in the visualized acoustic window * fluid removal with dialysis to maintain euvolemia (6) Anemia: Qualifiers: Anemia type: due to chronic kidney disease Chronic kidney disease stage: on chronic dialysis Qualified Code(s): N18.6 - End stage renal disease; D63.1 - Anemia in chronic kidney disease; Z99.2 - Dependence on renal dialysis Code(s): D64.9 - Anemia, unspecified Status: Chronic Assessment and Plan: * partly due to ESRD * GI evaluation noted on recent hospitalization * EGD (on 04/11): only mild gastritis noted * no evidence of iron deficiency by anemia studies by last check * high dose Epogen with dialysis * follow trend of H/H (7) HTN (hypertension): Qualifiers: Hypertension type: unspecified Qualified Code(s): I10 - Essential (primary) hypertension Code(s): I10 - Essential (primary) hypertension Status: Chronic Assessment and Plan: * reasonable control * off antihypertensives at this time * on midodrine for dialysis purposes (8) Bipolar 1 disorder: Code(s): F31.9 - Bipolar disorder, unspecified Status: Chronic Assessment and Plan: * continue Seroquel I will continue to follow the patient with you while she remains hospitalized and make further recommendations as deemed necessary. Thank you for allowing me to participate in the care of this patient. L History of Present Illness Reason for Consult Consult date: 04/30/25 Reason for consult: end stage renal disease Chief Complaint Chief complaint: hyperkalemia/Uremia/Volume Overload History of Present Illness Narrative: The patient is a 65-year-old female with an extensive medical history as outlined below who presented to [facility] ER from her nursing facility for chest discomfort. The patient apparently missed her most recent dialysis treatment that was scheduled on Friday 04/27. While being transported to her dialysis treatment but, the patient started having cramping in her muscles. In attempt to try and resolve the cramping she squeezed her muscles but this inadvertently led to her having a bowel movement. Hence she was transported back to her nursing facility so she could be cleaned up. She was subsequently brought back to her outpatient dialysis center but apparently she was not in her [place] lift pad and the dialysis nursing staff were unable to transport her to a dialysis chair. By that point, she had already missed approximately 2 hours of her dialysis treatment and there was not any availability for dialysis later in the day so she was transported back to her nursing facility without receiving her hemodialysis treatment. Since missing that dialysis treatment on Wednesday, she has developed some mild shortness of breath and chest discomfort. Due to her somewhat complex medical history as noted, she was subsequently transported to the emergency room for further assessment. Workup and evaluation emergency room demonstrated the patient to be hemodynamically stable and in no acute distress. Routine blood work demonstrated a normal white blood cell count, relative anemia which had improved in comparison to her last hospitalization, normal coagulation studies, and a chemistry panel that was consistent with her known history of end-stage renal disease although her BUN was quite elevated 109 in association with a creatinine of 7.31 and a potassium of 6.2. Her glucose is 168, her BNP was 69 40, and her initial troponin was negative. Her chest x-ray showed [id number]-[id number]-[id number] pulmonary edema and a tunneled dialysis catheter in place. Her EKG showed normal sinus rhythm with no evidence of ischemic changes. She received medical management for hyperkalemia and she was subsequently admitted to the hospital for further evaluation and therapy. Renal consultation was requested due to her end-stage renal disease. The patient is quite familiar to me as I take care her with regard to her outpatient ESRD needs. Since her initiation on renal replacement therapy/dialysis, the patient has been admitted numerous times at [facility] as well as [facility] for acute on chronic respiratory failure in conjunction with altered mental status with some of these admissions required intubation and mechanical ventilation related to CO2 narcosis and infection. She was just recently hospitalized here at [facility] about a week ago as well as a week prior to that admission for similar issues although her respiratory status improved with aggressive ultrafiltration/fluid removal with more frequent dialysis treatments prior to discharge. Her repeat labs early this morning once again showed hyperkalemia in conjunction with a quite elevated BUN. Currently, at the time my visit, she is on tolerating her hemodialysis treatment (seen on HD at 10:40am). Review of Systems 2 Review of Systems: As per HPI. [facility] Past Medical History Medical History (Updated 04/30/25 @ 13:04 by Rosalio Calix MD) Hypothyroidism DM2 (diabetes mellitus, type 2) Pulmonary embolism Occult blood in stools Acute on chronic anemia ESRD on dialysis Seizure disorder Immobility Rheumatoid arthritis PAF (paroxysmal atrial fibrillation) Fibromyalgia Gout Obesity hypoventilation syndrome SHELDON (obstructive sleep apnea) Chronic respiratory failure with hypoxia Atrial fibrillation COPD (chronic obstructive pulmonary disease) Diastolic heart failure Bipolar 1 disorder Anxiety and depression Left renal mass suspected malignancy Nephrolithiasis End stage renal disease CHF (congestive heart failure) HTN (hypertension) Resolved, no longer on medications. Now on midodrine. COPD (chronic obstructive pulmonary disease) Surgical History Surgical History History of cystoscopy S/P ureteral reimplantation History of hysterectomy S/P hemodialysis catheter insertion Family History Family History Father Lung cancer Grandparent Colon cancer Mother Congestive heart failure Social History Social History Smoking packs per day: 1 Smoking cigarettes per day: 20.0 Years smoked: 30 Smoking pack-years: 30.00 Smoking status: Former smoker Tobacco type: cigarettes Second hand tobacco smoke exposure: Yes Alcohol intake: never Substance use: never Substance use type: does not use Last use: 06/13/21 Do You Feel Safe in your Home?: Yes Lack of Transportation: No Lack of Food: Never True Current Housing: I Have Housing Concerned About Future Housing: No Difficulty Paying Gas/Electric Bills: No Difficulty Paying for Meds: No Currently Unemployed: No Education: High School Diploma/GED Difficulty w/ Childcare or Family Care: No Gender identity (if verbalized by the patient): Female Sexual Orientation (if Verbalized by the Patient): Straight or Heterosexual Spiritual care concerns: No Meds Home Medications and Allergies Home Medications ?Medication ?Instructions ?Recorded ?Confirmed ?Type atorvastatin 40 mg tablet 40 mg PO QHS 06/30/21 04/29/25 History ferrous sulfate 325 mg (65 mg 325 mg PO DAILY 06/30/21 04/29/25 History iron) tablet fluticasone propionate 50 1 spray intranasal DAILY 06/30/21 04/29/25 History mcg/actuation nasal spray,suspension hydrocodone 5 mg-acetaminophen 325 1 tablet PO Q8H PRN Pain Rated 4-6 06/30/21 04/29/25 History mg tablet levetiracetam 500 mg tablet 500 mg PO BID 06/30/21 04/29/25 History acetaminophen 325 mg tablet 650 mg PO Q6H PRN fever or pain 01/13/25 04/29/25 History (Aminofen) albuterol 90 mcg-budesonide 80 2 inh inhalation .every 6 hours 01/13/25 04/29/25 History mcg/actuation HFA aerosol inhaler PRN shortness of breath or wheezing (Airsupra) baclofen 5 mg tablet 5 mg PO Q12H 01/13/25 04/29/25 History cholecalciferol (vitamin D3) 50 2,000 unit PO DAILY 01/13/25 04/29/25 History mcg (2,000 unit) capsule diclofenac sodium 1 % topical gel 1 ea topical Q6H PRN pain 01/13/25 04/29/25 History (Arthritis Pain (diclofenac)) diphenhydramine HCl 25 mg capsule 50 mg PO Q8H PRN allergy symptoms 01/13/25 04/29/25 History (Aler-Cap) ergocalciferol (vitamin D2) 1,250 1,250 mcg PO WEEKLY 01/13/25 04/29/25 History mcg (50,000 unit) capsule escitalopram oxalate 10 mg tablet 20 mg PO DAILY 01/13/25 04/29/25 History hydroxyzine HCl 25 mg tablet 25 mg PO TID 01/13/25 04/29/25 History ipratropium 0.5 mg-albuterol 3 mg 3 ml inhalation Q2H PRN shortness 01/13/25 04/29/25 History (2.5 mg base)/3 mL nebulization of breath soln gabapentin 100 mg capsule 100 mg PO BID 04/06/25 04/29/25 History insulin aspart U-100 100 unit/mL 1 sliding scale dose subcut 04/06/25 04/29/25 History (3 mL) subcutaneous pen (Novolog .before meals FlexPen U-100 Insulin aspart) midodrine 5 mg tablet 5 mg PO .COMPLEX 04/06/25 04/29/25 History montelukast 10 mg tablet 10 mg PO DAILY 04/06/25 04/29/25 History nystatin 100,000 unit/gram topical 1 applic topical BID 04/06/25 04/29/25 History powder ondansetron HCl 4 mg tablet 4 mg PO Q8H PRN nausea and vomiting 04/06/25 04/29/25 History oxcarbazepine 150 mg tablet 150 mg PO BID 04/06/25 04/29/25 History quetiapine 25 mg tablet 50 mg PO HS 04/06/25 04/29/25 History trazodone 50 mg tablet 50 mg PO HS 04/06/25 04/29/25 History cyanocobalamin (vitamin B-12) 1,000 mcg PO DAILY 04/07/25 04/29/25 History 1,000 mcg tablet (Vitamin B-12) spnioblmrscty-GC-ljdnyjzkyxa 2.5 15 ml PO Q6H PRN cough 04/07/25 04/29/25 History mg-5 mg-50 mg/5 mL oral liquid (Robitussin Cough and Cold CF) guaifenesin 600 mg tablet, 1,200 mg (2 x 600 mg) PO Q12HR #30 04/25/25 04/29/25 Rx extended release 12 hr (Mucus tabs Relief ER) peg [id number] 1 1 drp EACH EYE QID PRN Dry Eye(S) 04/25/25 04/29/25 Rx %-0.2 %-0.2 % eye drops #5 mL (Artificial Tears ([id number])) lactulose 10 gram/15 mL oral 30 ml PO DAILY constipation 04/29/25 04/29/25 History solution (Enulose) prednisone 10 mg tablet 10 mg PO DAILY 04/29/25 04/29/25 History Allergies Allergy/AdvReac Type Severity Reaction Status Date / Time Penicillins Allergy Severe Anaphylaxis Verified 04/29/25 16:16 Vital Signs Vital Signs Temp Pulse Resp BP Pulse Ox O2 Del Method O2 Flow Rate 04/30/25 10:45 69 103/51 L 04/30/25 10:30 71 102/52 L 04/30/25 10:15 71 125/57 L 04/30/25 10:00 65 04/30/25 10:00 74 138/50 L 04/30/25 09:45 70 127/56 L 04/30/25 09:30 67 148/64 H 04/30/25 09:21 99.0 F 69 19 156/57 H 100 04/30/25 09:21 3 04/30/25 09:21 70 156/66 H 04/30/25 08:00 85 04/30/25 08:00 100 Nasal Cannula 3 04/30/25 08:00 97.6 F 78 22 H 148/53 H 100 04/30/25 06:00 72 04/30/25 05:40 70 13 04/30/25 05:29 70 13 100 Autopap 04/30/25 04:00 98.1 F 64 19 165/59 H 97 08/18/25 04:00 63 04/30/25 04:00 CPAP 04/30/25 02:00 61 04/30/25 01:00 100 Nasal Cannula 2 04/30/25 00:05 62 16 100 Autopap 04/30/25 00:00 65 04/30/25 00:00 100 Nasal Cannula 3 04/30/25 00:00 98.1 F 62 16 131/52 L 100 04/29/25 22:00 64 04/29/25 20:00 68 04/29/25 20:00 100 Nasal Cannula 3 04/29/25 19:52 98.2 F 74 17 144/69 H 100 04/29/25 18:11 69 04/29/25 17:43 69 18 04/29/25 17:37 70 18 04/29/25 17:24 97.6 F 65 16 145/47 H 100 04/29/25 16:00 68 04/29/25 15:30 69 15 137/61 100 04/29/25 15:00 64 14 119/49 L 100 04/29/25 14:13 100 Nasal Cannula 3 04/29/25 14:13 65 15 124/53 L 100 04/29/25 13:31 69 15 109/96 H 100 04/29/25 13:02 68 14 100/87 100 Exam 2 Narrative: GENERAL APPEARANCE: chronically ill-appearing large Caucasina female resting comfortably in bed HEENT: normocephalic, atraumatic, mild pallor to conjunctiva and sclera, nares patient NECK: no lymphadenopathy, thyromegaly, or JVD MOUTH: normal lips, teeth, and gums CARDIOVASCULAR: RRR, normal S1 and S2, no rub RESPIRATORY: coarse breath sounds with scattered crackles ABDOMEN: soft, nontender, nondistended, positive bowel sounds present EXTREMITIES: no evidence of cyanosis, clubbing, trace edema NEUROLOGICAL: awake and alert; CN II - XII intact bilaterally; no focal deficits noted Results Lab Results 04/30/25 10:10 04/30/25 03:51 Lab results: Most recent lab results Calcium 8.3 mg/dL (8.4-10.2) L 04/30/25 03:51 Phosphorus 11.8 mg/dL (2.5-4.5) H 04/30/25 03:51 Magnesium 2.3 mg/dL (1.6-2.3) 04/30/25 03:51
[2025-04-30 10:52] LABS: Anisocytosis 1+; Schistocytes None Seen
[2025-04-30] MEDS: ACETAMINOPHEN 325 MG TABLET 650 MG PO ×2 (11:38→20:54)
[2025-04-30] MEDS: EPOETIN ALFA-EPBX 20,000 UNITS/ML VIAL 20000 UNITS IV PUSH (12:02)
--- NOTE | 2025-04-30 13:16 | PC.NURSE ---
Pt is currently in dialysis. Dialysis nurse has called this RN multiple times in regards to the patient's pain level. Tylenol administration was used first with no relief. Order obtained by this RN from Dr Durham for one time done Normanna. Order put into [facility]. Once medication was verified by pharmacy medication was taken up to the dialysis room and administered to the patient. Since time of administration of norco I have not recieved and notification of any further complaints of pain. electrical engineering drafting officer aware to call me if pain increases or per pt request.
[2025-04-30] MEDS: ESCITALOPRAM OXALATE 10 MG TABLET 20 MG PO (13:57)
[2025-04-30] MEDS: FERROUS SULFATE 325 MG TABLET DR BY MOUTH (13:57)
[2025-04-30] MEDS: GABAPENTIN 100 MG CAPSULE PO ×2 (13:57→20:54)
[2025-04-30] MEDS: MONTELUKAST SODIUM 10 MG TABLET PO (13:57)
[2025-04-30] MEDS: CYANOCOBALAMIN 1,000 MCG TABLET 1000 MCG PO (13:57)
[2025-04-30] MEDS: CHOLECALCIFEROL (VITAMIN D3) 25 MCG (1,000 UNITS) TABLET 50 MCG PO (13:57)
[2025-04-30] MEDS: FLUTICASONE PROPIONATE 0.05% NA SPR 16 GM BTL (*BKC) 1 SPRAY NASAL (13:58)
[2025-04-30] MEDS: MUPIROCIN 2% OINT 22 GM TUBE 1 APPLIC EACH NARE ×2 (13:58→20:55)
--- NOTE | 2025-04-30 16:28 | P.PNIM_ITS ---
Progress Note: A&P Assessment and Plan (1) End stage renal disease: Code(s): N18.6 - End stage renal disease Status: Acute Assessment and Plan: - hx of ESRD on Mondays, Wednesdays, Fridays. Missed most recent treatment on Wednesday, 04/27 - nephrology consulted for inpatient dialysis - plan for dialysis on Wednesday, 04/30 - trend electrolytes and correct as needed in interim (2) Hyperkalemia: Code(s): E87.5 - Hyperkalemia Status: Acute Assessment and Plan: - K 6.2 upon admission. - given calcium, Lasix, insulin/dextrose, sodium bicarbonate in the ED on 04/29. Plan for repeat BMP this afternoon ->> 5.7, repeat sodium bicarb, insulin/dextrose, calcium. add albuterol and Lokelma. Repeat this evening. - monitor (3) CHF (congestive heart failure): Qualifiers: Heart failure chronicity: unspecified Heart failure type: unspecified Qualified Code(s): I50.9 - Heart failure, unspecified Code(s): I50.9 - Heart failure, unspecified Status: Acute Assessment and Plan: - history of diastolic heart failure. mild exacerbation at present (reported SOB and per imaging) management via dialysis, however missed most recent treatment day. - patient still makes urine, given 80 of Lasix IV in the ED. Further fluid management via dialysis. 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 use: with [facility] use Diabetes mellitus complication status: with kidney complications Diabetes mellitus complication detail: with chronic kidney disease Chronic kidney disease stage: on chronic dialysis Qualified Code(s): E11.22 - Type 2 diabetes mellitus with diabetic chronic kidney disease; N18.6 - End stage renal disease; Z79.4 - [facility] (current) use of insulin; Z99.2 - Dependence on renal dialysis Code(s): E11.9 - Type 2 diabetes mellitus without complications Status: Chronic Assessment and Plan: - hypoglycemia protocol - POC blood glucose ACHS - home medication: Hold home sliding scale - correct regimen ordered - high dose TIDWM, based off BMI - A1C 5.3% on 04/07/2025 (5) Afib: Qualifiers: Atrial fibrillation type: paroxysmal Qualified Code(s): I48.0 - Paroxysmal atrial fibrillation Code(s): I48.91 - Unspecified atrial fibrillation Status: Chronic Assessment and Plan: - hx of pAfib - initial EKG in the ED showed sinus rhythm - continue home medications: (6) Anemia: Qualifiers: Anemia type: due to chronic kidney disease Chronic kidney disease stage: on chronic dialysis Qualified Code(s): N18.6 - End stage renal disease; D63.1 - Anemia in chronic kidney disease; Z99.2 - Dependence on renal dialysis Code(s): D64.9 - Anemia, unspecified Status: Chronic Assessment and Plan: - hx of anemia of chronic disease/ESRD - Hgb 10.2 upon admission - baseline Hgb 8 - transfuse if <7 - monitor (7) Chronic respiratory failure: Qualifiers: Respiratory failure complication: hypoxia Qualified Code(s): J96.11 - Chronic respiratory failure with hypoxia Code(s): J96.10 - Chronic respiratory failure, unspecified whether with hypoxia or hypercapnia Status: Chronic Assessment and Plan: - hx of COPD, chronic respiratory failure with hypoxia, SHELDON, and obesity hypoventilation syndrome - wears 3L nasal cannula baseline, at baseline requirement (8) Obstructive sleep apnea treated with BiPAP: Code(s): G47.33 - Obstructive sleep apnea (adult) (pediatric) Status: Chronic Assessment and Plan: - continue home BiPAP Plan Patient stats on Wednesday she was at the dialysis center for her HD however had diarrhea and by the time she was cleaned up she missed her dialysis and her kidney function and potassium were elevated and patient presented to ER for dialysis, patient is seen in the dialysis center, had HD and 4L was removed, will discuss with her bobcat operator for further recommendations, for possible discharge back to her NH. Diet: renal/dialysis GI Prophylaxis: n/a DVT Prophylaxis: SCDs IV fluids: none Lines/Tubes: Peripheral IV, HD catheter R chest Code Status: full code Subjective Date/time seen: 04/30/25 16:28 Interval history: Missed Dialysis H&P-Narrative: 65 y/o F with PMH of ESRD on HD (MWF), seizure disorder, chronic anemia, rheumatoid arthritis, paroxysmal AFib, gout, fibromyalgia, SHELDON, COPD, diastolic heart failure, bipolar 1 disorder, anxiety/depression, and hypertension presents here with missed dialysis. The patient presents here from [facility] via EMS for further evaluation after a missed dialysis treatment. The patient has a history of ESRD on hemodialysis on Mondays, Wednesdays, Fridays. She missed her most recent treatment on Wednesday, 04/27. She reports she missed her treatment because she began having cramping while being transferred to the transportation van. She attempted to squeeze her muscles to ease the cramping which caused her to have a bowel movement. Patient was then brought back inside to [facility] where they had difficulty with transfers which prompted cancellation of transportation services. Since missing treatment she has developed shortness of breath and mild dizziness. She denies chest pain, fevers, nausea, vomiting, or body aches. She does have a history of COPD, chronic respiratory failure with hypoxia, SHELDON, and obesity hypoventilation syndrome. She wears 3L nasal cannula baseline. Initial VS at presentation: 98.5? F, HR 65, RR 17, 156/50, and 100% on 3L nasal cannula. ED workup showed: No leukocytosis, hemoglobin 10.2 (8.7 on 04/25/2025), normal coags, potassium 6.2, creatinine 7.31, BUN 109, GFR 6, glucose 168, BNP 6940, and initial troponin 0.015. CXR showed mild to moderate pulmonary edema and a stable support line. EKG showed sinus rhythm, low QRS voltage in precordial leads, baseline artifact. No significant change when compared to previous. Patient stats on Wednesday she was at the dialysis center for her HD however had diarrhea and by the time she was cleaned up she missed her dialysis and her kidney function and potassium were elevated and patient presented to ER for dialysis, patient is seen in the dialysis center, had HD and 4L was removed, will discuss with her bobcat operator for further recommendations, for possible discharge back to her NH. Review of Systems Review of Systems: All systems reviewed & are unremarkable except as noted in HPI and below Exam Narrative: Morbidly obese Patient is comfortable, NAD HEENT: eyes are clear and none icteric LUNGS:CTA HEART: RR S1S2 ABD: BS+, Soft and nontender Lower extremities: no edema SKIN: nonjaundiced Neuro: grossly intact. Objective Data Vital Signs Vital Signs: Vital Signs - 24 hr 04/29/25 17:24 04/29/25 17:37 04/29/25 17:43 Temperature 36.4 C Pulse Rate 65 70 69 Respiratory Rate 16 18 18 Blood Pressure 145/47 H Pulse Oximetry 100 Oxygen Delivery Oxygen Flow Rate 04/29/25 18:11 04/29/25 19:52 04/29/25 20:00 Temperature 36.8 C Pulse Rate 69 74 Respiratory Rate 17 Blood Pressure 144/69 H Pulse Oximetry 100 100 Oxygen Delivery Nasal Cannula Oxygen Flow Rate 3 04/29/25 20:00 04/29/25 22:00 04/30/25 00:00 Temperature 36.7 C Pulse Rate 68 64 62 Respiratory Rate 16 Blood Pressure 131/52 L Pulse Oximetry 100 Oxygen Delivery Oxygen Flow Rate 04/30/25 00:00 04/30/25 00:00 04/30/25 00:05 Temperature Pulse Rate 65 62 Respiratory Rate 16 Blood Pressure Pulse Oximetry 100 100 Oxygen Delivery Nasal Cannula Autopap Oxygen Flow Rate 3 04/30/25 01:00 04/30/25 02:00 04/30/25 04:00 Temperature Pulse Rate 61 Respiratory Rate Blood Pressure Pulse Oximetry 100 Oxygen Delivery Nasal Cannula CPAP Oxygen Flow Rate 2 04/30/25 04:00 04/30/25 04:00 04/30/25 05:29 Temperature 36.7 C Pulse Rate 63 64 70 Respiratory Rate 19 13 Blood Pressure 165/59 H Pulse Oximetry 97 100 Oxygen Delivery Autopap Oxygen Flow Rate 04/30/25 05:40 04/30/25 06:00 04/30/25 08:00 Temperature 36.4 C Pulse Rate 70 72 78 Respiratory Rate 13 22 H Blood Pressure 148/53 H Pulse Oximetry 100 Oxygen Delivery Oxygen Flow Rate 04/30/25 08:00 04/30/25 08:00 04/30/25 09:21 Temperature Pulse Rate 85 70 Respiratory Rate Blood Pressure 156/66 H Pulse Oximetry 100 Oxygen Delivery Nasal Cannula Oxygen Flow Rate 3 04/30/25 09:21 04/30/25 09:21 04/30/25 09:30 Temperature 37.2 C Pulse Rate 69 67 Respiratory Rate 19 Blood Pressure 156/57 H 148/64 H Pulse Oximetry 100 Oxygen Delivery Oxygen Flow Rate 3 04/30/25 09:45 04/30/25 10:00 04/30/25 10:00 Temperature Pulse Rate 70 74 65 Respiratory Rate Blood Pressure 127/56 L 138/50 L Pulse Oximetry Oxygen Delivery Oxygen Flow Rate 04/30/25 10:15 04/30/25 10:30 04/30/25 10:45 Temperature Pulse Rate 71 71 69 Respiratory Rate Blood Pressure 125/57 L 102/52 L 103/51 L Pulse Oximetry Oxygen Delivery Oxygen Flow Rate 04/30/25 11:15 04/30/25 11:30 04/30/25 11:45 Temperature Pulse Rate 69 65 68 Respiratory Rate Blood Pressure 127/61 141/66 H 116/59 L Pulse Oximetry Oxygen Delivery Oxygen Flow Rate 04/30/25 12:00 04/30/25 12:00 04/30/25 12:15 Temperature Pulse Rate 66 68 62 Respiratory Rate Blood Pressure 143/60 H 140/62 Pulse Oximetry Oxygen Delivery Oxygen Flow Rate 04/30/25 12:30 04/30/25 12:45 04/30/25 13:00 Temperature Pulse Rate 66 64 65 Respiratory Rate Blood Pressure 146/68 H 189/60 H 143/70 H Pulse Oximetry Oxygen Delivery Oxygen Flow Rate 04/30/25 13:21 04/30/25 13:51 04/30/25 14:00 Temperature 36.7 C 36.8 C Pulse Rate 64 66 63 Respiratory Rate 17 18 Blood Pressure 132/75 134/87 153/48 H Pulse Oximetry 100 100 Oxygen Delivery Oxygen Flow Rate 04/30/25 14:00 04/30/25 15:29 Temperature Pulse Rate 61 Respiratory Rate Blood Pressure Pulse Oximetry 100 Oxygen Delivery Nasal Cannula Oxygen Flow Rate 3 Intake/Output Intake/Output: Intake & Output 04/27/25 04/28/25 04/29/25 04/30/25 23:59 23:59 23:59 23:59 Intake Total 240 600 Output Total 4150 Balance 240 -3550 Meds/Results Medications: Active Medications Generic Name Dose Route Start Last Admin Trade Name Freq PRN Reason Stop Dose Admin Acetaminophen 650 mg 04/29/25 14:37 04/30/25 11:38 Acetaminophen 325 Mg Tablet PO 650 mg Q4H PRN Administration Mild Pain (1-3) or Fever Hydrocodone Bitart/Acetaminophen 1 tab 04/29/25 15:01 04/30/25 08:43 Hydrocodone/Acetaminophen (*Crx) 5-325 Mg Tablet PO 1 tab Q8H PRN Administration Pain Rated 4-6 Albuterol/Ipratropium 3 ml 04/29/25 15:01 Ipratropium 0.5 Mg/Albuterol Sulfate 2.5 Mg Ampul.Neb 3 Ml INHALATION Q2HRT PRN shortness of breath Artificial Tears 1 drop 04/29/25 15:01 Artificial Tears Ophth Soln 15 Ml Bottle EACH EYE QID PRN Dry Eye(S) Atorvastatin Calcium 40 mg 04/29/25 21:00 04/29/25 20:51 Atorvastatin 40 Mg Tablet PO 40 mg QHS MARLEEN Administration Cyanocobalamin 1,000 mcg 04/30/25 09:00 04/30/25 13:57 Cyanocobalamin 1,000 Mcg Tablet PO 1,000 mcg DAILY MARLEEN Administration Dextrose 12.5 gm 04/29/25 15:03 Dextrose 50% 25 Gm/50 Ml Syringe IV PUSH PRN PRN Hypoglycemia Protocol Diclofenac Sodium 1 applic 04/29/25 15:01 Diclofenac Sodium 1% 100 Gm Gel (*Bkc) TOPICAL Q6H PRN pain Diphenhydramine HCl 50 mg 04/29/25 15:01 Diphenhydramine Hcl Cap 25 Mg Capsule PO Q8H PRN allergy symptoms Ergocalciferol 1,250 mcg 05/05/25 09:00 Ergocalciferol (Vitamin D2) 1,250 Mcg (50,000 Units) Capsule PO Sa@0900 MARLEEN Escitalopram Oxalate 20 mg 04/30/25 09:00 04/30/25 13:57 Escitalopram Oxalate 10 Mg Tablet PO 20 mg DAILY MARLEEN Administration Ferrous Sulfate 325 mg 04/30/25 09:00 04/30/25 13:57 Ferrous Sulfate [address] BY MOUTH 325 mg DAILY MARLEEN Administration Fluticasone Propionate 1 spray 04/30/25 09:00 04/30/25 13:58 Fluticasone Propionate 0.05% Na Spr 16 Gm Btl (*Bkc) NASAL 1 spray DAILY MARLEEN Administration Gabapentin 100 mg 04/29/25 21:00 04/30/25 13:57 Gabapentin 100 Mg Capsule PO 100 mg Q12HR MARLEEN Administration Glucagon 1 mg 04/29/25 15:03 Glucagon For Inj 1 Mg Vial IM PRN PRN Hypoglycemia Protocol Glucose 15 gm 04/29/25 15:03 Glucose Oral Gel 15 Gm Of Glucse In 37.5 Gm Tube PO PRN PRN Hypoglycemia Protocol Guaifenesin 1,200 mg 04/29/25 21:00 04/30/25 08:08 Guaifenesin 12 Hr 600 Mg Tabcr PO 1,200 mg Q12HR MARLEEN Administration Hydroxyzine HCl 25 mg 04/29/25 22:00 04/30/25 13:59 Hydroxyzine Hcl 25 Mg Tablet PO 25 mg Q8HR MARLEEN Administration Dextrose 1,000 mls @ 100 mls/hr 04/29/25 15:03 Dextrose 5% 1,000 Ml IVPB PRN PRN Hypoglycemia Protocol Albumin Human 50 mls @ 999 mls/hr 04/29/25 22:19 Albutein IVPB 05/29/25 22:18 Q10M PRN HYPOTENSION Insulin Aspart 4 - 8 units 04/29/25 17:00 04/30/25 12:59 Insulin Aspart (*Bkc) 100 Units/Ml SUB-Q Not Given TIDWM MARLEEN Protocol Lactulose 20 gm 04/30/25 09:00 04/30/25 14:12 Lactulose 20 Gm/30 Ml Udc PO Not Given DAILY MARLEEN Levetiracetam 500 mg 04/29/25 21:00 04/30/25 08:08 Levetiracetam 500 Mg Tablet PO 500 mg Q12HR MARLEEN Administration Midodrine 10 mg 04/30/25 07:30 04/30/25 11:38 Midodrine Hcl 10 Mg Tablet PO 10 mg WITH DIALYSIS PRN Administration Hypotension with dialysis Miscellaneous Information 1 each 04/29/25 00:01 04/30/25 02:29 Nonformulary Drug (Moaezrdioezcy-Gm-Vdlvrexekqd [Robitussin Cough And Cold Cf] 2.5-5-50 Mg XX 05/29/25 00:00 Not Given [facility] Miscellaneous Information 1 each 04/29/25 00:01 04/30/25 02:29 Nonformulary Drug (Albuterol-Budesonide [Airsupra] 90-80 Mcg/Actuation Hfa Aerosol Inhaler XX 05/29/25 00:00 Not Given CLARIFY MARLEEN Montelukast Sodium 10 mg 04/30/25 09:00 04/30/25 13:57 Montelukast Sodium 10 Mg Tablet PO 10 mg DAILY MARLEEN Administration Mupirocin 1 applic 04/29/25 21:00 04/30/25 13:58 Mupirocin 2% Oint 22 Gm Tube EACH NARE 05/04/25 09:01 1 applic Q12HR MARLEEN Administration Non-Formulary Medication 2 inhalation 04/29/25 15:01 Albuterol-Budesonide [Airsupra] INHALATION .every 6 hours PRN shortness of breath or wheezing Non-Formulary Medication 15 ml 04/29/25 15:01 Zoxptxwjfzfgg-Uj-Asqixejilxd [Robitussin Cough And Cold Cf] PO Q6H PRN cough Ondansetron HCl 4 mg 04/29/25 14:37 04/29/25 19:49 Ondansetron Inj 4 Mg/2 Ml Vial IV PUSH 4 mg Q4H PRN Administration Nausea Oxcarbazepine 150 mg 04/29/25 21:00 04/30/25 14:03 Oxcarbazepine 150 Mg Tablet PO 150 mg Q12HR MARLEEN Administration Polyethylene Glycol 17 gm 04/29/25 15:00 Polyethylene Glycol 3350 17 Gm Powd.Pack PO QAM PRN Constipation Prednisone 30 mg 04/30/25 09:00 04/30/25 13:56 Prednisone 10 Mg Tablet PO 05/08/25 08:59 30 mg DAILY MARLEEN Administration Taper Quetiapine Fumarate 50 mg 04/29/25 21:00 04/29/25 20:51 Quetiapine Fumarate 25 Mg Tablet PO 50 mg HS MARLEEN Administration Trazodone HCl 50 mg 04/29/25 21:00 04/29/25 20:51 Trazodone Hcl 50 Mg Tablet PO 50 mg HS MARLEEN Administration Vitamin D 50 mcg 04/30/25 09:00 04/30/25 13:57 Cholecalciferol (Vitamin D3) 25 Mcg (1,000 Units) Tablet PO 50 mcg DAILY MARLEEN Administration Radiology Results: ITS Impressions Chest X-Ray 04/29/25 13:23 Impression: [id number] pulmonary edema. Stable support line. Labs Labs: Laboratory Results - last 24 hr 04/29/25 04/29/25 04/29/25 16:26 17:12 17:43 WBC RBC Hgb Hct MCV MCH MCHC RDW Plt Count MPV Immature Gran % (Auto) Neut % (Auto) Lymph % (Auto) [place] % (Auto) Eos % (Auto) Baso % (Auto) Lymph # (Auto) [place] # (Auto) Eos # (Auto) Baso # (Auto) Abs Immat Gran (auto) Absolute Neuts (auto) Absolute Nucleated RBC Band Neutrophils % Nucleated RBC % Platelet Estimate Anisocytosis Schistocytes Sodium 138 Potassium 5.7 H Chloride 102 Carbon Dioxide 19 L Anion Gap 17 H BUN 109 H* Creatinine 7.09 H Estim Creat Clear Calc 12 Estimated GFR 6 L Glucose 190 H POC Capillary Glucose 194 H Calcium 8.1 L Phosphorus Magnesium Total Bilirubin AST ALT Alkaline Phosphatase Total Protein Albumin Nasal MRSA (PCR) Detected A* Hep Bs Antigen Hep Bs Antibody 04/29/25 04/29/25 04/30/25 21:12 23:46 03:51 WBC 7.2 RBC 3.68 L Hgb 10.3 L Hct 35.2 L MCV 95.7 MCH 28.0 MCHC 29.3 L RDW 16.2 H Plt Count 116 L MPV 9.3 Immature Gran % (Auto) 1.3 H Neut % (Auto) 91.5 H Lymph % (Auto) 5.0 L [place] % (Auto) 2.2 L Eos % (Auto) 0.0 Baso % (Auto) 0.0 L Lymph # (Auto) 0.36 L [place] # (Auto) 0.2 Eos # (Auto) 0.0 Baso # (Auto) 0.0 Abs Immat Gran (auto) 0.09 H Absolute Neuts (auto) 6.6 Absolute Nucleated RBC 0.000 Band Neutrophils % Nucleated RBC % 0.0 Platelet Estimate Anisocytosis Schistocytes Sodium 137 138 Potassium 6.0 H* 6.7 H* Chloride 101 100 Carbon Dioxide 20 L 19 L Anion Gap 16 H 19 H BUN 115 H* 115 H* Creatinine 7.09 H 7.36 H Estim Creat Clear Calc 12 11 Estimated GFR 6 L 6 L Glucose 182 H 206 H POC Capillary Glucose 184 H Calcium 8.5 8.3 L Phosphorus 11.8 H Magnesium 2.3 Total Bilirubin 0.8 AST 14 ALT 11 Alkaline Phosphatase 106 Total Protein 6.9 Albumin 4.1 Nasal MRSA (PCR) Hep Bs Antigen Negative Hep Bs Antibody Negative 04/30/25 04/30/25 07:58 10:10 WBC 7.0 RBC 3.40 L Hgb 9.6 L Hct 32.3 L MCV 95.0 MCH 28.2 MCHC 29.7 L RDW 16.3 H Plt Count 124 L MPV 10.5 H Immature Gran % (Auto) 2.1 H Neut % (Auto) 92.4 H Lymph % (Auto) 2.7 L [place] % (Auto) 2.7 Eos % (Auto) 0.0 Baso % (Auto) 0.1 L Lymph # (Auto) 0.19 L [place] # (Auto) 0.2 Eos # (Auto) 0.0 Baso # (Auto) 0.0 Abs Immat Gran (auto) 0.15 H Absolute Neuts (auto) 6.5 Absolute Nucleated RBC 0.020 H Band Neutrophils % Not Reportable Nucleated RBC % 0.3 H Platelet Estimate Slightly decreased Anisocytosis 1+ Schistocytes None seen Sodium Potassium Chloride Carbon Dioxide Anion Gap BUN Creatinine Estim Creat Clear Calc Estimated GFR Glucose POC Capillary Glucose 236 H Calcium Phosphorus Magnesium Total Bilirubin AST ALT Alkaline Phosphatase Total Protein Albumin Nasal MRSA (PCR) Hep Bs Antigen Hep Bs Antibody Quality VTE Prophylaxis VTE prophylaxis: mechanical ordered
[2025-04-30 16:47] LABS: Anion Gap 16 mmol/L (4-12); Blood Urea Nitrogen 54 mg/dL (7-17); Calcium 8.3 mg/dL (8.4-10.2); Carbon Dioxide 20 mmol/L (22-30); Chloride 98 mmol/L (98-107); Estimated CRCL calculation 24 ml/min; Estimated Glomerular Filt Rate 14; Glucose 208 mg/dL (65-110); Potassium 4.2 mmol/L (3.4-5.0); Sodium 134 mmol/L (137-145)
[2025-04-30] MEDS: ATORVASTATIN 40 MG TABLET PO (20:55)
[2025-05-01] VITALS (24 sets, daily range): BP systolic 140–181; BP diastolic 51–84; PULSE 58–70; RESP 13–28; TEMP 36.4–37.1; O2SAT 91–100
--- NOTE | 2025-05-01 01:12 | PC.NURSE ---
Report given to Jeanna the receiving nurse on . Pt and her belongings moved to [phone] from 212.
[2025-05-01] MEDS: HYDROcodone/acetaminophen (*CRX) 5-325 MG TABLET 1 TAB PO ×3 (01:17→18:41)
[2025-05-01] MEDS: diphenhydrAMINE HCl CAP 25 MG CAPSULE 50 MG PO (01:17)
[2025-05-01] MEDS: ONDANSETRON INJ 4 MG/2 ML VIAL IV PUSH (04:48)
[2025-05-01 05:55] LABS: Albumin Level 3.7 g/dL (3.5-5.1); Anion Gap 14 mmol/L (4-12); Blood Urea Nitrogen 69 mg/dL (7-17); Calcium 8.2 mg/dL (8.4-10.2); Carbon Dioxide 25 mmol/L (22-30); Chloride 97 mmol/L (98-107); Estimated CRCL calculation 19 ml/min; Estimated Glomerular Filt Rate 11; Glucose 193 mg/dL (65-110); Magnesium 1.9 mg/dL (1.6-2.3); Potassium 5.0 mmol/L (3.4-5.0); Sodium 136 mmol/L (137-145)
[2025-05-01 07:14] LABS: Hematocrit 31.2 % (37.0-47.0); Hemoglobin 9.5 g/dL (12.0-15.0); Immature Granulocyte Percent A 0.9 % (0-0.5); Lymphocytes Absolute Auto 0.88 K/mm3 (0.9-3.2); Mean Corpuscular HGB Conc 30.4 g/dl (32-36); Mean Corpuscular Hemoglobin 28.4 pg (26-34); Mean Corpuscular Volume 93.4 fl (80-100); Nucleated Red Blood Cells Absolute Auto 0.020 K/mm3 (0.0-0.012); Nucleated Red Blood Cells Perc 0.2 % (0.0-0.2); Platelet Count Result 123 k/mm3 (150-375); Red Blood Count 3.34 M/mm3 (4.2-5.4); White Blood Count 8.7 K/mm3 (4.5-10.0)
[2025-05-01] MEDS: MIDODRINE HCL 10 MG TABLET PO ×2 (08:27→10:56)
--- NOTE | 2025-05-01 10:55 | P.PNNP_ITS ---
Progress Note: A&P Assessment and Plan (1) End stage renal disease: Code(s): N18.6 - End stage renal disease Status: Acute Assessment and Plan: * HD today * continue outpatient schedule of Mondays, Wednesdays, and Fridays while hospitalized * follow electrolytes, volume status, and clearance (2) Hyperkalemia: Code(s): E87.5 - Hyperkalemia Status: Acute Assessment and Plan: * potassium 6.2 on admission * s/p medical management in ER (IV calcium, IV Lasix, IV insulin/dextrose, IV sodium bicarbonate) along with albuterol and lokelma * corrected with dialysis (3) Chronic respiratory failure: Code(s): J96.10 - Chronic respiratory failure, unspecified whether with hypoxia or hypercapnia Status: Acute Assessment and Plan: * multifactorial etiology: * COPD * asthma * SHELDON * OHS * CHF * pulmonary edema * on chronic supplemental oxygen * on BiPAP at the [facility] * continue supportive therapy (4) Volume overload: Code(s): E87.70 - Fluid overload, unspecified Status: Acute Assessment and Plan: * admission CXR concerning for edema * plan ongoing fluid removal with dialysis as tolerated by hemodynamics * continue current therapy/interventions (5) CHF (congestive heart failure): Qualifiers: Heart failure chronicity: unspecified Heart failure type: unspecified Qualified Code(s): I50.9 - Heart failure, unspecified Code(s): I50.9 - Heart failure, unspecified Status: Acute Assessment and Plan: * first noted in 2020 if not longer * Echo at that time with evidence of chronic diastolic dysfunction * recent Echo (March 2025) noted: * normal biventricular size and systolic function * valves are not well visualized in this study for overall appears to not have any significant valvular abnormalities in the visualized acoustic window * fluid removal with dialysis to maintain euvolemia (6) Anemia: Qualifiers: Anemia type: due to chronic kidney disease Chronic kidney disease stage: on chronic dialysis Qualified Code(s): N18.6 - End stage renal disease; D63.1 - Anemia in chronic kidney disease; Z99.2 - Dependence on renal dialysis Code(s): D64.9 - Anemia, unspecified Status: Chronic Assessment and Plan: * partly due to ESRD * GI evaluation noted on recent hospitalization * EGD (on 7/30): only mild gastritis noted * no evidence of iron deficiency by anemia studies by last check * high dose Epogen with dialysis * follow trend of H/H (7) HTN (hypertension): Qualifiers: Hypertension type: unspecified Qualified Code(s): I10 - Essential (primary) hypertension Code(s): I10 - Essential (primary) hypertension Status: Chronic Assessment and Plan: * reasonable control * off antihypertensives at this time * on midodrine for dialysis purposes (8) Bipolar 1 disorder: Code(s): F31.9 - Bipolar disorder, unspecified Status: Chronic Assessment and Plan: * continue Seroquel Will continue to follow. L Subjective Date/time seen: 05/01/25 10:55 Interval history: Follow-up for end stage renal disease on hemodialysis. Tolerating dialysis treatment at the time of my visit (seen on HD at 10:45am); tolerated dialysis treatment yesterday as well without any issues or problems; breathing/respiratory status has improved if not back to baseline; no apparent distress noted when seen. Exam 2 Narrative: General: large but WD/WN female in NAD Heart: normal S1 and S2; no rub Lungs: clear anteriorly; diminished at bases Abdomen: obese but soft, nontender, nondistended, + bowel sounds Extremities: no cyanosis or clubbing; no edema Skin: warm and dry Objective Data Vital Signs Vital Signs: Vital Signs Temp Pulse Resp BP Pulse Ox O2 Del Method O2 Flow Rate 05/01/25 10:45 61 140/66 05/01/25 10:30 61 151/68 H 05/01/25 10:15 61 146/63 H 05/01/25 10:00 59 L 157/63 H 05/01/25 09:45 63 152/69 H 05/01/25 09:30 60 155/74 H 05/01/25 09:15 64 171/81 H 05/01/25 09:00 69 171/84 H 05/01/25 08:51 59 L 160/72 H 05/01/25 08:45 98.5 F 61 18 156/71 H 05/01/25 08:45 2 05/01/25 08:00 97.5 F L 66 22 H 144/58 H 100 05/01/25 08:00 95 Nasal Cannula 3 05/01/25 04:56 65 28 H 95 Autopap 05/01/25 04:47 98.7 F 63 20 157/51 H 100 05/01/25 01:51 63 13 98 Autopap 04/30/25 23:38 97.8 F 20 98 04/30/25 20:20 97.8 F 71 20 165/51 H 98 04/30/25 20:00 98 Nasal Cannula 3 04/30/25 18:15 154/64 H 04/30/25 18:00 66 04/30/25 16:00 60 04/30/25 16:00 98.4 F 62 20 187/61 H 100 04/30/25 15:29 100 Nasal Cannula 3 Intake/Output Intake/Output: Intake & Output 04/28/25 04/29/25 04/30/25 05/01/25 23:59 23:59 23:59 23:59 Intake Total 240 1280 840 Output Total 4800 4200 Balance 319 -2712 -8743 Meds/Results Medications: Active Medications Generic Name Dose Route Start Last Admin Trade Name Freq PRN Reason Stop Dose Admin Acetaminophen 650 mg 04/29/25 14:37 04/30/25 20:54 Acetaminophen 325 Mg Tablet PO 650 mg Q4H PRN Administration Mild Pain (1-3) or Fever Hydrocodone Bitart/Acetaminophen 1 tab 04/29/25 15:01 05/01/25 10:56 Hydrocodone/Acetaminophen (*Crx) 5-325 Mg Tablet PO 1 tab Q8H PRN Administration Pain Rated 4-6 Albuterol/Ipratropium 3 ml 04/29/25 15:01 Ipratropium 0.5 Mg/Albuterol Sulfate 2.5 Mg Ampul.Neb 3 Ml INHALATION Q2HRT PRN shortness of breath Artificial Tears 1 drop 04/29/25 15:01 Artificial Tears Ophth Soln 15 Ml Bottle EACH EYE QID PRN Dry Eye(S) Atorvastatin Calcium 40 mg 04/29/25 21:00 04/30/25 20:55 Atorvastatin 40 Mg Tablet PO 40 mg QHS MARLEEN Administration Cyanocobalamin 1,000 mcg 04/30/25 09:00 05/01/25 12:58 Cyanocobalamin 1,000 Mcg Tablet PO 1,000 mcg DAILY MARLEEN Administration Dextrose 12.5 gm 04/29/25 15:03 Dextrose 50% 25 Gm/50 Ml Syringe IV PUSH PRN PRN Hypoglycemia Protocol Diclofenac Sodium 1 applic 04/29/25 15:01 Diclofenac Sodium 1% 100 Gm Gel (*Bkc) TOPICAL Q6H PRN pain Diphenhydramine HCl 50 mg 04/29/25 15:01 05/01/25 01:17 Diphenhydramine Hcl Cap 25 Mg Capsule PO 50 mg Q8H PRN Administration allergy symptoms Epoetin Ilya-epbx 20,000 units 05/01/25 18:03 05/01/25 12:18 Epoetin Ilya-Epbx 20,000 Units/Ml Vial IV PUSH 05/01/25 18:04 20,000 units ONCE ONE Administration Ergocalciferol 1,250 mcg 05/05/25 09:00 Ergocalciferol (Vitamin D2) 1,250 Mcg (50,000 Units) Capsule PO Sa@0900 MARLEEN Escitalopram Oxalate 20 mg 04/30/25 09:00 05/01/25 12:58 Escitalopram Oxalate 10 Mg Tablet PO 20 mg DAILY MARLEEN Administration Ferrous Sulfate 325 mg 04/30/25 09:00 05/01/25 12:59 Ferrous Sulfate [address] BY MOUTH 325 mg DAILY MARLEEN Administration Fluticasone Propionate 1 spray 04/30/25 09:00 05/01/25 13:00 Fluticasone Propionate 0.05% Na Spr 16 Gm Btl (*Bkc) NASAL 1 spray DAILY MARLEEN Administration Gabapentin 100 mg 04/29/25 21:00 05/01/25 12:59 Gabapentin 100 Mg Capsule PO 100 mg Q12HR MARLEEN Administration Glucagon 1 mg 04/29/25 15:03 Glucagon For Inj 1 Mg Vial IM PRN PRN Hypoglycemia Protocol Glucose 15 gm 04/29/25 15:03 Glucose Oral Gel 15 Gm Of Glucse In 37.5 Gm Tube PO PRN PRN Hypoglycemia Protocol Guaifenesin 1,200 mg 04/29/25 21:00 05/01/25 12:59 Guaifenesin 12 Hr 600 Mg Tabcr PO 1,200 mg Q12HR MARLEEN Administration Hydroxyzine HCl 25 mg 04/29/25 22:00 05/01/25 13:07 Hydroxyzine Hcl 25 Mg Tablet PO 25 mg Q8HR MARLEEN Administration Dextrose 1,000 mls @ 100 mls/hr 04/29/25 15:03 Dextrose 5% 1,000 Ml IVPB PRN PRN Hypoglycemia Protocol Albumin Human 50 mls @ 999 mls/hr 04/29/25 22:19 Albutein IVPB 05/29/25 22:18 Q10M PRN HYPOTENSION Insulin Aspart 4 - 8 units 04/29/25 17:00 05/01/25 12:58 Insulin Aspart (*Bkc) 100 Units/Ml SUB-Q Not Given TIDWM MARLEEN Protocol Lactulose 20 gm 04/30/25 09:00 05/01/25 12:59 Lactulose 20 Gm/30 Ml Udc PO Not Given DAILY MARLEEN Levetiracetam 500 mg 04/29/25 21:00 05/01/25 12:59 Levetiracetam 500 Mg Tablet PO 500 mg Q12HR MARLEEN Administration Midodrine 10 mg 04/30/25 07:30 05/01/25 10:56 Midodrine Hcl 10 Mg Tablet PO 10 mg WITH DIALYSIS PRN Administration Hypotension with dialysis Miscellaneous Information 1 each 04/29/25 00:01 05/01/25 00:06 Nonformulary Drug (Ckvjzgtjaeonv-Ph-Kvoedbhtbvt [Robitussin Cough And Cold Cf] 2.5-5-50 Mg XX 05/29/25 00:00 Not Given [facility] Miscellaneous Information 1 each 04/29/25 00:01 05/01/25 00:06 Nonformulary Drug (Albuterol-Budesonide [Airsupra] 90-80 Mcg/Actuation Hfa Aerosol Inhaler XX 05/29/25 00:00 Not Given [facility] Montelukast Sodium 10 mg 04/30/25 09:00 05/01/25 12:59 Montelukast Sodium 10 Mg Tablet PO 10 mg DAILY MARLEEN Administration Mupirocin 1 applic 04/29/25 21:00 05/01/25 13:09 Mupirocin 2% Oint 22 Gm Tube EACH NARE 05/04/25 09:01 1 applic Q12HR MARLEEN Administration Non-Formulary Medication 2 inhalation 04/29/25 15:01 Albuterol-Budesonide [Airsupra] INHALATION .every 6 hours PRN shortness of breath or wheezing Non-Formulary Medication 15 ml 04/29/25 15:01 Syxyluuurpjae-Og-Rqqywlbmlxq [Robitussin Cough And Cold Cf] PO Q6H PRN cough Ondansetron HCl 4 mg 04/29/25 14:37 05/01/25 04:48 Ondansetron Inj 4 Mg/2 Ml Vial IV PUSH 4 mg Q4H PRN Administration Nausea Oxcarbazepine 150 mg 04/29/25 21:00 05/01/25 13:00 Oxcarbazepine 150 Mg Tablet PO 150 mg Q12HR MARLEEN Administration Polyethylene Glycol 17 gm 04/29/25 15:00 Polyethylene Glycol 3350 17 Gm Powd.Pack PO QAM PRN Constipation Prednisone 30 mg 04/30/25 09:00 05/01/25 13:00 Prednisone 10 Mg Tablet PO 05/08/25 08:59 30 mg DAILY MARLEEN Administration Taper Quetiapine Fumarate 50 mg 04/29/25 21:00 04/30/25 20:55 Quetiapine Fumarate 25 Mg Tablet PO 50 mg HS MARLEEN Administration Trazodone HCl 50 mg 04/29/25 21:00 04/30/25 20:55 Trazodone Hcl 50 Mg Tablet PO 50 mg HS MARLEEN Administration Vitamin D 50 mcg 04/30/25 09:00 05/01/25 12:58 Cholecalciferol (Vitamin D3) 25 Mcg (1,000 Units) Tablet PO 50 mcg DAILY MARLEEN Administration Radiology Results: ITS Impressions Chest X-Ray 04/29/25 13:23 Impression: [id number] pulmonary edema. Stable support line. Labs Labs: Laboratory Tests 05/01/25 04:23 05/01/25 04:27 Calcium 8.2 L Phosphorus 7.3 H Magnesium 1.9 Albumin 3.7
[2025-05-01] MEDS: EPOETIN ALFA-EPBX 20,000 UNITS/ML VIAL 20000 UNITS IV PUSH (12:18)
[2025-05-01] MEDS: CYANOCOBALAMIN 1,000 MCG TABLET 1000 MCG PO (12:58)
[2025-05-01] MEDS: CHOLECALCIFEROL (VITAMIN D3) 25 MCG (1,000 UNITS) TABLET 50 MCG PO (12:58)
[2025-05-01] MEDS: ESCITALOPRAM OXALATE 10 MG TABLET 20 MG PO (12:58)
[2025-05-01] MEDS: FERROUS SULFATE 325 MG TABLET DR BY MOUTH (12:59)
[2025-05-01] MEDS: GABAPENTIN 100 MG CAPSULE PO (12:59)
[2025-05-01] MEDS: guaiFENesin 12 HR 600 MG TABCR 1200 MG PO (12:59)
[2025-05-01] MEDS: MONTELUKAST SODIUM 10 MG TABLET PO (12:59)
[2025-05-01] MEDS: FLUTICASONE PROPIONATE 0.05% NA SPR 16 GM BTL (*BKC) 1 SPRAY NASAL (13:00)
[2025-05-01] MEDS: MUPIROCIN 2% OINT 22 GM TUBE 1 APPLIC EACH NARE (13:09)
--- NOTE | 2025-05-01 14:22 | PM.DS ---
DS: Admitting Diagnosis Discharge Date 05/01/25 Admitting Diagnosis Missed Dialysis DS: Discharge Diagnosis Discharge Diagnosis (1) End stage renal disease: Code(s): N18.6 - End stage renal disease Status: Acute Assessment and Plan: - hx of ESRD on Mondays, Wednesdays, Fridays. Missed most recent treatment on Wednesday, 04/27 - nephrology consulted for inpatient dialysis - plan for dialysis on Wednesday, 04/30 - trend electrolytes and correct as needed in interim (2) Hyperkalemia: Code(s): E87.5 - Hyperkalemia Status: Acute Assessment and Plan: - K 6.2 upon admission. - given calcium, Lasix, insulin/dextrose, sodium bicarbonate in the ED on 04/29. Plan for repeat BMP this afternoon ->> 5.7, repeat sodium bicarb, insulin/dextrose, calcium. add albuterol and Lokelma. Repeat this evening. - monitor (3) CHF (congestive heart failure): Qualifiers: Heart failure chronicity: unspecified Heart failure type: unspecified Qualified Code(s): I50.9 - Heart failure, unspecified Code(s): I50.9 - Heart failure, unspecified Status: Acute Assessment and Plan: - history of diastolic heart failure. mild exacerbation at present (reported SOB and per imaging) management via dialysis, however missed most recent treatment day. - patient still makes urine, given 80 of Lasix IV in the ED. Further fluid management via dialysis. - monitor respiratory status (4) DM2 (diabetes mellitus, type 2): Qualifiers: Diabetes mellitus terminal worker insulin use: with terminal worker use Diabetes mellitus complication status: with kidney complications Diabetes mellitus complication detail: with chronic kidney disease Chronic kidney disease stage: on chronic dialysis Qualified Code(s): E11.22 - Type 2 diabetes mellitus with diabetic chronic kidney disease; N18.6 - End stage renal disease; Z79.4 - terminal worker (current) use of insulin; Z99.2 - Dependence on renal dialysis Code(s): E11.9 - Type 2 diabetes mellitus without complications Status: Chronic Assessment and Plan: - hypoglycemia protocol - POC blood glucose ACHS - home medication: Hold home sliding scale - correct regimen ordered - high dose TIDWM, based off BMI - A1C 5.3% on 04/07/2025 (5) Afib: Qualifiers: Atrial fibrillation type: paroxysmal Qualified Code(s): I48.0 - Paroxysmal atrial fibrillation Code(s): I48.91 - Unspecified atrial fibrillation Status: Chronic Assessment and Plan: - hx of pAfib - initial EKG in the ED showed sinus rhythm - continue home medications: (6) Anemia: Qualifiers: Anemia type: due to chronic kidney disease Chronic kidney disease stage: on chronic dialysis Qualified Code(s): N18.6 - End stage renal disease; D63.1 - Anemia in chronic kidney disease; Z99.2 - Dependence on renal dialysis Code(s): D64.9 - Anemia, unspecified Status: Chronic Assessment and Plan: - hx of anemia of chronic disease/ESRD - Hgb 10.2 upon admission - baseline Hgb 8 - transfuse if <7 - monitor (7) Chronic respiratory failure: Qualifiers: Respiratory failure complication: hypoxia Qualified Code(s): J96.11 - Chronic respiratory failure with hypoxia Code(s): J96.10 - Chronic respiratory failure, unspecified whether with hypoxia or hypercapnia Status: Chronic Assessment and Plan: - hx of COPD, chronic respiratory failure with hypoxia, SHELDON, and obesity hypoventilation syndrome - wears 3L nasal cannula baseline, at baseline requirement (8) Obstructive sleep apnea treated with BiPAP: Code(s): G47.33 - Obstructive sleep apnea (adult) (pediatric) Status: Chronic Assessment and Plan: - continue home BiPAP Plan Patient stats on Wednesday she was at the dialysis center for her HD however had diarrhea and by the time she was cleaned up she missed her dialysis and her kidney function and potassium were elevated and patient presented to ER for dialysis, patient is seen in the dialysis center, had HD and 4L was removed, will discuss with her research leader for further recommendations, for possible discharge back to her [place]. Diet: renal/dialysis GI Prophylaxis: n/a DVT Prophylaxis: SCDs IV fluids: none Lines/Tubes: Peripheral IV, HD catheter R chest Code Status: full code DS: Summary Hospital Course Hospital Course: Patient stats on Wednesday she was at the dialysis center for her HD however had diarrhea and by the time she was cleaned up she missed her dialysis and her kidney function and potassium were elevated and patient presented to ER for dialysis, patient is seen in the dialysis center, had HD and 4L was removed, will discuss with her research leader for further recommendations, for possible discharge back to her [place]. Again today patient had HD, patient stats feels better, will discharge back to NH, she will have scheduled dialysis. patient is clinically stable, will discharge home today. Time Spent with Patient Time attestation: Total time spent providing and/or coordinating discharge services: Exam Narrative: Morbidly obese Patient is comfortable, NAD HEENT: eyes are clear and none icteric LUNGS:CTA HEART: RR S1S2 ABD: BS+, Soft and nontender Lower extremities: no edema SKIN: nonjaundiced Neuro: grossly intact. DS: Data Data Completed and Pending Labs on day of discharge: Labs from last 24 hours 05/01/25 05/01/25 05/01/25 12:56 08:22 04:27 WBC RBC Hgb Hct MCV MCH MCHC RDW Plt Count MPV Immature Gran % (Auto) Neut % (Auto) Lymph % (Auto) [place] % (Auto) Eos % (Auto) Baso % (Auto) Lymph # (Auto) [place] # (Auto) Eos # (Auto) Baso # (Auto) Abs Immat Gran (auto) Absolute Neuts (auto) Absolute Nucleated RBC Nucleated RBC % Sodium 136 L Potassium 5.0 Chloride 97 L Carbon Dioxide 25 Anion Gap 14 H BUN 69 H D Creatinine 4.14 H Estim Creat Clear Calc 19 Estimated GFR 11 L Glucose 193 H POC Capillary Glucose 134 H 108 H Calcium 8.2 L Phosphorus 7.3 H Magnesium 1.9 Albumin 3.7 05/01/25 04/30/25 04/30/25 04:23 20:09 16:37 WBC 8.7 RBC 3.34 L Hgb 9.5 L Hct 31.2 L MCV 93.4 MCH 28.4 MCHC 30.4 L RDW 16.3 H Plt Count 123 L MPV 9.8 Immature Gran % (Auto) 0.9 H Neut % (Auto) 81.6 H Lymph % (Auto) 10.2 L [place] % (Auto) 7.2 Eos % (Auto) 0.0 Baso % (Auto) 0.1 L Lymph # (Auto) 0.88 L [place] # (Auto) 0.6 Eos # (Auto) 0.0 Baso # (Auto) 0.0 Abs Immat Gran (auto) 0.08 H Absolute Neuts (auto) 7.1 H Absolute Nucleated RBC 0.020 H Nucleated RBC % 0.2 Sodium Potassium Chloride Carbon Dioxide Anion Gap BUN Creatinine Estim Creat Clear Calc Estimated GFR Glucose POC Capillary Glucose 218 H 209 H Calcium Phosphorus Magnesium Albumin 04/30/25 16:07 WBC RBC Hgb Hct MCV MCH MCHC RDW Plt Count MPV Immature Gran % (Auto) Neut % (Auto) Lymph % (Auto) [place] % (Auto) Eos % (Auto) Baso % (Auto) Lymph # (Auto) [place] # (Auto) Eos # (Auto) Baso # (Auto) Abs Immat Gran (auto) Absolute Neuts (auto) Absolute Nucleated RBC Nucleated RBC % Sodium 134 L Potassium 4.2 Chloride 98 Carbon Dioxide 20 L Anion Gap 16 H BUN 54 H D Creatinine 3.37 H Estim Creat Clear Calc 24 Estimated GFR 14 L Glucose 208 H POC Capillary Glucose Calcium 8.3 L Phosphorus Magnesium Albumin Discharge Plan Discharge Attending physician on discharge: Mason Durham Consulting providers: Rosalio Calix; Simon Lozano; Elizabeth Ba; Singh Cheng Discharging Clinician: Mason Durham Patient Disposition: NH Senior Living/Asst Living Activity: as tolerated Diet: renal Discharge Instructions: patient will have scheduled dialysis, patient will follow up with her research leader and primary care as scheduled, Patient Instructions: Antibiotic Form, Heart Failure (DC), Depression (DC), Suicide Prevention (DC) Patient Language: Slovenian Stand Alone Forms: General Discharge Information Follow-up/Referrals: Jonatan Coulter MD [Physician, Nephrology] Discharge Medications: New polyethylene glycol 3350 [Miralax] 17 gram Powder In Packet 17 g PO QAM PRN (Reason: Constipation) Qty: 30 0RF midodrine 10 mg Tablet 10 mg PO WITH DIALYSIS PRN (Reason: Hypotension with dialysis) Qty: 30 0RF Continued acetaminophen [Aminofen] 325 mg tablet 650 mg PO Q6H PRN (Reason: fever or pain) Airsupra 90-80 mcg/actuation HFA aerosol inhaler 2 inh inhalation .every 6 hours PRN (Reason: shortness of breath or wheezing) Patient Comments: Do not exceed 6 doses in 24 hours. baclofen 5 mg tablet 5 mg PO Q12H diphenhydramine HCl [Aler-Cap] 25 mg capsule 50 mg PO Q8H PRN (Reason: allergy symptoms) cholecalciferol (vitamin D3) 50 mcg (2,000 unit) capsule 2,000 unit PO DAILY diclofenac sodium [Arthritis Pain (diclofenac)] 1 % gel 1 ea topical Q6H PRN (Reason: pain) Rx Instructions: apply to single elbow, wrist or hand; for hand includes palm/fingers/back of hand ergocalciferol (vitamin D2) 1,250 mcg (50,000 unit) capsule 1,250 mcg PO WEEKLY Patient Comments: takes on Wednesday escitalopram oxalate 10 mg tablet 20 mg PO DAILY hydroxyzine HCl 25 mg tablet 25 mg PO TID ipratropium-albuterol 0.5 mg-3 mg(2.5 mg base)/3 mL solution for nebulization 3 ml inhalation Q2H PRN (Reason: shortness of breath) Artificial Tears(ch-najs-pdwx) 1-0.2-0.2 % Drops 1 drp EACH EYE QID PRN (Reason: Dry Eye(S)) Qty: 5 0RF guaifenesin [Mucus Relief ER] 600 mg Tablet Extended Release 12hr 1,200 mg PO Q12HR Qty: 30 0RF atorvastatin 40 mg tablet 40 mg PO QHS levetiracetam 500 mg tablet 500 mg PO BID ferrous sulfate 325 mg (65 mg iron) Tablet 325 mg PO DAILY fluticasone propionate 50 mcg/actuation spray,suspension 1 spray INTRANASAL DAILY hydrocodone-acetaminophen 5-325 mg tablet 1 tablet PO Q8H PRN (Reason: Pain Rated 4-6) gabapentin 100 mg capsule 100 mg PO BID midodrine 5 mg tablet 5 mg PO .COMPLEX Rx Instructions: 5 mg orally once a day every other day; montelukast 10 mg tablet 10 mg PO DAILY insulin aspart U-100 [Novolog FlexPen U-100 Insulin] 100 unit/mL (3 mL) insulin pen 1 sliding scale dose SUBCUT .before meals Rx Instructions: Give subcutaneous before meals. -Blood sugar 150-199, give 1 unit. -Blood sugar 200-249, give 2 units. -Blood sugar 250-299, give 3 units. -Blood sugar 300-349, give 4 units. -Blood sugar 350-500, give 6 units. -If blood sugar is greater than 500, call nystatin 100,000 unit/gram powder 1 applic TOPICAL BID Rx Instructions: Apply under skin folds. ondansetron HCl 4 mg tablet 4 mg PO Q8H PRN (Reason: nausea and vomiting) oxcarbazepine 150 mg tablet 150 mg PO BID quetiapine 25 mg tablet 50 mg PO HS trazodone 50 mg tablet 50 mg PO HS Robitussin Cough and Cold CF 2.5-5-50 mg/5 mL liquid 15 ml PO Q6H PRN (Reason: cough) cyanocobalamin (vitamin B-12) [Vitamin B-12] 1,000 mcg tablet 1,000 mcg PO DAILY lactulose [Enulose] 10 gram/15 mL solution 30 ml PO DAILY prednisone 10 mg tablet 10 mg PO DAILY Patient Comments: end date 05/01/25 Date of admission: 04/30/25 18:31 Primary Care Provider: Esvin Hope Admitting Provider: Mason Durham Attending physician on admission: Mason Durham Condition: Stable
[2025-05-01] MEDS: INSULIN ASPART (*BKC) 100 UNITS/ML SUB-Q (17:35)
== END 2025-05-01 20:02 | DRG 640 ==
LOC: ANHED 12:14 → ANHIMU 15:48 → ANH2MED 05-01 01:03
PROVIDERS: Internal Medicine Nephrology; Student in an Organized Health Care Education/Training Program; Admitting Provider Family Medicine; Emergency Provider Emergency Medicine; Visit Provider Family Medicine
DX: E87.70 Fluid overload, unspecified (principal); N18.6 End stage renal disease; E66.2 Morbid (severe) obesity with alveolar hypoventilation; I13.2 Hypertensive heart and chronic kidney disease with heart failure and with stage 5 chronic kidney disease, or end stage renal disease; I50.32 Chronic diastolic (congestive) heart failure; J96.11 Chronic respiratory failure with hypoxia; E87.5 Hyperkalemia; I48.0 Paroxysmal atrial fibrillation; E03.9 Hypothyroidism, unspecified; E11.22 Type 2 diabetes mellitus with diabetic chronic kidney disease; J44.9 Chronic obstructive pulmonary disease, unspecified; D63.1 Anemia in chronic kidney disease; M06.9 Rheumatoid arthritis, unspecified; M79.7 Fibromyalgia; M10.9 Gout, unspecified; G40.909 Epilepsy, unspecified, not intractable, without status epilepticus; F31.9 Bipolar disorder, unspecified; F41.9 Anxiety disorder, unspecified; Z86.711 Personal history of pulmonary embolism; Z79.4 Long term (current) use of insulin; Z99.2 Dependence on renal dialysis; Z87.891 Personal history of nicotine dependence; Z22.322 Carrier or suspected carrier of Methicillin resistant Staphylococcus aureus
CPT/HCPCS: 36415; 71045; 80048; 80053; 80069; 82948; 83735; 83880; 84100; 84484; 85025; 85610; 85730; 86706; 87340; 87641; 93005; 94640; 96374; 96375; 99285; A9270; C1751; G0257; J0612; J1644; J1815; J1938; J2405; J7030; J7512; P9047; Q5105

== ENCOUNTER 2025-08-24 08:41 | Observation (INO) | payer MEDICARE, SELFPAY ==
[2025-08-24] VITALS (33 sets, daily range): BP systolic 100–136; BP diastolic 36–90; PULSE 74–89; RESP 16–20; TEMP 36.3–36.8; O2SAT 94–100; BMI 56.7
--- NOTE | ~2025-08-24 | XR_ITS ---
EXAMINATION: XR foot LT 2V DATE: 08/24/2025 10:27 INDICATION: Injury TECHNIQUE: Left foot x-ray were obtained. COMPARISON: None. FINDINGS: No displaced fracture lucency. The bones are diffusely osteopenic. Scattered degenerative changes also noted. Partially visualized intramedullary yan in the visualized tibia. No radiopaque foreign body seen. IMPRESSION: 1. No displaced fracture lucency. The bones are diffusely osteopenic. Reviewed, dictated and finalized at location A. CUTTER
--- NOTE | ~2025-08-24 | XR_ITS ---
EXAMINATION: XR humerus RT, 08/24/2025 9:55 AUTO TIRE RECAPPER HISTORY: fall from wheelchair, pain COMPARISON: No comparisons available. Findings: No acute fracture or malalignment. No significant degenerative changes. Soft tissues unremarkable. Impression: No acute fracture or malalignment. Reviewed, dictated and finalized at location P. TIRE RECAPPER Impression: No acute fracture or malalignment.
--- NOTE | ~2025-08-24 | CT_ITS ---
EXAMINATION: CT thoracic lumbar wo con, 08/24/2025 9:45 CHANNEL EXECUTIVE HISTORY: fall from wheelchair, pain COMPARISON: No comparisons available. Technique: Axial images were obtained of the spine per protocol. One or more of the following dose reduction techniques were used: automated exposure control, adjustment of the mA and/or kV according to patient size, use of iterative reconstruction technique. Unless otherwise stated, incidental findings do not require dedicated follow up imaging Findings: There are acute appearing superior endplate fracture resolved T12 and L1 with loss of height 10%, no subluxation noted. Moderate loss of vertebral height throughout. Moderate loss of disc height throughout, there is no severe canal or foraminal stenosis identified. Soft tissues there is a partially imaged large complex left renal cyst incompletely evaluated 7 x 8 cm, dedicated imaging is recommended. There are chronic changes noted in the visualized lung parenchyma with severe partially imaged probable cardiomegaly. Impression: Acute appearing endplate fractures detailed above. Incidental findings above Reviewed, dictated and finalized at location P. NEL EXECUTIVE Impression: Acute appearing endplate fractures detailed above. Incidental findings above
--- NOTE | ~2025-08-24 | XR_ITS ---
EXAMINATION: XR ankle LT 2V DATE: 08/24/2025 11:17 INDICATION: Injury TECHNIQUE: Left ankle x-rays were obtained. COMPARISON: None. FINDINGS: The bones are diffusely osteopenic. Partially visualized internal fixation hardware left tibia. No definite fracture seen. No large joint effusion. Soft tissue swelling appears to be present. IMPRESSION: 1. No displaced fracture lucency. The bones are diffusely osteopenic. Reviewed, dictated and finalized at location A. STOP CHECKER
--- NOTE | ~2025-08-24 | XR_ITS ---
EXAMINATION: XR tibia fibula LT 2V DATE: 08/24/2025 10:27 INDICATION: Fall TECHNIQUE: Left leg x-rays were obtained. COMPARISON: None. FINDINGS: The bones appear diffusely osteopenic. Intramedullary yan is present which appears intact. No acute appearing fracture or dislocation. Advanced degenerative changes are present in the knee with milder degenerative changes about the ankle. IMPRESSION: No fracture lucency identified. Reviewed, dictated and finalized at location A. D AND YOUTH PROGRAM ASSISTANT
--- NOTE | ~2025-08-24 | CT_ITS ---
EXAMINATION: CT brain wo con, 08/24/2025 9:40 OVERLOCKER HISTORY: fall from wheelchair COMPARISON: No comparisons available. Technique: Axial images obtained of the brain without contrast. One or more of the following dose reduction techniques were used: automated exposure control, adjustment of the mA and/or kV according to patient size, use of iterative reconstruction technique. Findings: No acute infarct or parenchymal hemorrhage. No abnormal mass or mass effect. No midline shift. No extra-axial fluid collections. No hydrocephalus. Mastoid air cells unremarkable. Sinuses and orbits unremarkable. No acute fracture. No significant facial or scalp soft tissue swelling evident. No radiopaque foreign body is seen. Impression: 1.No acute intracranial abnormality. Reviewed, dictated and finalized at location P. LOCKER Impression: 1.No acute intracranial abnormality.
--- NOTE | ~2025-08-24 | CT_ITS ---
EXAMINATION: CT cervical spine wo con DATE: 08/24/2025 09:50 INDICATION: Neck pain post fall from wheelchair TECHNIQUE: Computed tomography (CT) of the cervical spine was performed without intravenous contrast. Automated exposure control and iterative reconstruction technique were employed. The dose-length product was 819.46 mGy-cm. COMPARISON: None FINDINGS: Straightening of the normal cervical lordosis. Vertebral body heights are normal. No fracture. Severe osteoarthritis at the atlantoaxial articulation. Moderate disc height loss the superior bilateral uncovertebral osteoarthritis at C5-C6. Mild disc height loss at C6-C7 with moderate bilateral uncovertebral osteoarthritis. Mild disc height loss at C2-C3 and mild uncovertebral osteoarthritis bilaterally at C2-C3 through C4-C5 and at C7-T1. Posterior disc osteophyte complexes resulting in mild central canal stenosis at C5-C6 and C6- C7. There is fusion across the bilateral C2-C3 facet joints. There is moderate and severe facet osteoarthritis throughout remainder of the cervical spine. Contributes to multilevel minimal to mild neural foraminal stenosis was performed on the right at C3-C4, and the left at C4-C5, bilaterally at C5-C6 and on the right at C6-C7. Mild biapical pleural-parenchymal scarring. Partially visualized large bore dual-lumen right internal jugular central venous catheter which extends caudally along the visualized superior vena cava. Cervical soft tissues are unremarkable. IMPRESSION: 1. Moderate cervical spondylosis. No acute osseous abnormality. Reviewed, dictated and finalized at location A. ORATE TRAFFIC MANAGER
--- NOTE | ~2025-08-24 | XR_ITS ---
EXAMINATION: XR humerus LT, 08/24/2025 9:55 QA TEST ANALYST HISTORY: fall from wheelchair, pain COMPARISON: No comparisons available. Findings: No acute fracture or malalignment. No significant degenerative changes. Soft tissues unremarkable. Impression: No acute fracture or malalignment. Reviewed, dictated and finalized at location P. TEST ANALYST Impression: No acute fracture or malalignment.
--- NOTE | 2025-08-24 10:20 | ED.FALL ---
HPI - Fall General Chief Complaint: Fall <ELIZABETH Haynes Last Filed: 08/24/25 18:49> Stated Complaint: FALL <ELIZABETH Haynes Last Filed: 08/24/25 18:49> Time Seen by Provider: 08/24/25 09:01 <ELIZABETH Haynes Last Filed: 08/24/25 18:49> Source: patient and old records reviewed <ELIZABETH Haynes Last Filed: 08/24/25 18:49> Mode of arrival: EMS <ELIZABETH Haynes Last Filed: 08/24/25 18:49> Limitations: no limitations <ELIZABETH Haynes Last Filed: 08/24/25 18:49> History of Present Illness HPI Narrative: Patient is a 65-year-old female, past medical history of end-stage renal disease on hemodialysis MWF, CHF, HTN, COPD, chronic hypoxic resp failure on home O2, who presents the ED via EMS with report of a fall. Patient is resident of [facility]. She is nonambulatory/wheel chair bound at baseline. Patient reports she was in a transport van on her way to dialysis in her reclined wheelchair when she slipped out of the wheelchair when the van came to a stop. She fell to the ground. She does not believe she hit her head but is unsure. Denies LOC. She complains of pain to bilateral upper arms, neck, mid/ lower back, left foot. Denies numbness. <Glenis Sheehan PA-C - Last Filed: 08/24/25 18:49> Related Data Home Medications: Home Medications ?Medication ?Instructions ?Recorded ?Confirmed ?Last Taken ?Type atorvastatin 40 mg tablet 40 mg PO QHS 06/30/21 08/24/25 04/28/25 History fluticasone propionate 50 1 spray intranasal DAILY 06/30/21 08/24/25 04/29/25 History mcg/actuation nasal spray,suspension hydrocodone 5 mg-acetaminophen 325 1 tablet PO Q8H PRN Pain Rated 4-6 06/30/21 08/24/25 04/29/25 History mg tablet levetiracetam 500 mg tablet 500 mg PO BID 06/30/21 08/24/25 04/29/25 History acetaminophen 325 mg tablet 650 mg PO Q6H PRN fever or pain 01/13/25 08/24/25 04/21/25 11:30 History (Aminofen) albuterol 90 mcg-budesonide 80 2 inh inhalation .every 6 hours 01/13/25 08/24/25 04/28/25 History mcg/actuation HFA aerosol inhaler PRN shortness of breath or wheezing (Airsupra) baclofen 5 mg tablet 5 mg PO TID 01/13/25 08/24/25 04/29/25 History cholecalciferol (vitamin D3) 50 2,000 unit PO DAILY 01/13/25 08/24/25 04/29/25 History mcg (2,000 unit) capsule diclofenac sodium 1 % topical gel 1 ea topical Q6H PRN pain 01/13/25 08/24/25 Unknown History (Arthritis Pain (diclofenac)) diphenhydramine HCl 25 mg capsule 50 mg PO Q8H PRN allergy symptoms 01/13/25 08/24/25 04/18/25 13:40 History (Aler-Cap) ergocalciferol (vitamin D2) 1,250 1,250 mcg PO WEEKLY 01/13/25 08/24/25 04/28/25 History mcg (50,000 unit) capsule escitalopram oxalate 10 mg tablet 20 mg PO DAILY 01/13/25 08/24/25 04/28/25 History hydroxyzine HCl 25 mg tablet 25 mg PO TID 01/13/25 08/24/25 04/29/25 History ipratropium 0.5 mg-albuterol 3 mg 3 ml inhalation Q2H PRN shortness 01/13/25 08/24/25 03/27/25 22:40 History (2.5 mg base)/3 mL nebulization of breath soln insulin aspart U-100 100 unit/mL 1 sliding scale dose subcut 04/06/25 08/24/25 04/23/25 11:40 History (3 mL) subcutaneous pen (Novolog .before meals FlexPen U-100 Insulin aspart) montelukast 10 mg tablet 10 mg PO DAILY 04/06/25 08/24/25 04/29/25 History nystatin 100,000 unit/gram topical 1 applic topical BID 04/06/25 08/24/25 04/29/25 History powder ondansetron HCl 4 mg tablet 4 mg PO Q8H PRN nausea and vomiting 04/06/25 08/24/25 04/28/25 History oxcarbazepine 150 mg tablet 150 mg PO BID 04/06/25 08/24/25 04/28/25 History quetiapine 25 mg tablet 25 mg PO HS 04/06/25 08/24/25 04/28/25 History trazodone 50 mg tablet 50 mg PO HS 04/06/25 08/24/25 04/22/25 22:30 History cyanocobalamin (vitamin B-12) 1,000 mcg PO DAILY 04/07/25 08/24/25 04/23/25 07:00 History 1,000 mcg tablet (Vitamin B-12) hlfomxgzxwsmw-PW-gfpbowtzhjq 2.5 15 ml PO Q6H PRN cough 04/07/25 08/24/25 12/30/24 08:30 History mg-5 mg-50 mg/5 mL oral liquid (Robitussin Cough and Cold CF) lactulose 10 gram/15 mL oral 30 ml PO DAILY constipation 04/29/25 08/24/25 04/28/25 History solution (Enulose) prednisone 10 mg tablet 10 mg PO DAILY 04/29/25 08/24/25 04/29/25 History albuterol sulfate 2.5 mg/3 mL 2.5 mg inhalation Q6H 08/24/25 08/24/25 Unknown History (0.083 %) solution for nebulization ferrous sulfate 325 mg (65 mg 325 mg PO DAILY 08/24/25 08/24/25 Unknown History iron) tablet,delayed release furosemide 40 mg tablet 40 mg PO BID 08/24/25 08/24/25 Unknown History hydrocortisone 1 % topical cream 1 applic topical BID PRN itching 08/24/25 08/24/25 Unknown History (Anti-Itch (hydrocortisone)) insulin glargine-yfgn 100 unit/mL 15 unit subcut QPM 08/24/25 08/24/25 Unknown History subcutaneous solution midodrine 10 mg tablet 5 mg PO WITH DIALYSIS Hypotension 08/24/25 08/24/25 Unknown History with dialysis potassium chloride 20 mEq 20 meq PO DAILY 08/24/25 08/24/25 Unknown History tablet,extended release(part/cryst) sucroferric oxyhydroxide 500 mg 1,000 mg PO TIDWM 08/24/25 08/24/25 Unknown History chewable tablet (Velphoro) <Glenis Sheehan PA-C - Last Filed: 08/24/25 18:49> Allergies/Adverse Reactions: Allergies Allergy/AdvReac Type Severity Reaction Status Date / Time Penicillins Allergy Severe Anaphylaxis Verified 08/24/25 16:17 <Glenis Sheehan PA-C - Last Filed: 08/24/25 18:49> Review of Systems Review of Systems: All systems reviewed & are unremarkable except as noted in HPI. <Glenis Sheehan PA-C - Last Filed: 08/24/25 18:49> All systems reviewed & are unremarkable except as noted in HPI and below <Glenis Sheehan PA-C - Last Filed: 08/24/25 18:49> [facility] Past Medical History Medical History: Medical History Chronic anemia HTN (hypertension) Resolved, no longer on medications. Now on midodrine. Hypothyroidism DM2 (diabetes mellitus, type 2) Pulmonary embolism Occult blood in stools Seizure disorder Immobility Rheumatoid arthritis PAF (paroxysmal atrial fibrillation) Fibromyalgia Gout Obesity hypoventilation syndrome SHELDON (obstructive sleep apnea) Chronic respiratory failure with hypoxia COPD (chronic obstructive pulmonary disease) Diastolic heart failure Bipolar 1 disorder Anxiety and depression Left renal mass suspected malignancy Nephrolithiasis ESRD on dialysis COPD (chronic obstructive pulmonary disease) <Glenis Sheehan PA-C - Last Filed: 08/24/25 18:49> Surgical History Surgical History: Surgical History History of cystoscopy S/P ureteral reimplantation History of hysterectomy S/P hemodialysis catheter insertion <Glenis Sheehan PA-C - Last Filed: 08/24/25 18:49> Family History Family History: Family History Father Lung cancer Grandparent Colon cancer Mother Congestive heart failure <Glenis Sheehan PA-C - Last Filed: 08/24/25 18:49> Social History Social History: Social History Smoking packs per day: 1 Smoking cigarettes per day: 20.0 Years smoked: 30 Smoking pack-years: 30.00 Smoking status: Former smoker Tobacco type: cigarettes Second hand tobacco smoke exposure: Yes Alcohol intake: never Substance use: never Substance use type: does not use Last use: 06/13/21 Lack of Transportation: No Lack of Food: Never True Current Housing: I Have Housing Concerned About Future Housing: No Difficulty Paying Gas/Electric Bills: No Difficulty Paying for Meds: No Currently Unemployed: No Education: High School Diploma/GED Difficulty w/ Childcare or Family Care: No Gender identity (if verbalized by the patient): Female Sexual Orientation (if Verbalized by the Patient): Straight or Heterosexual Spiritual care concerns: No <Glenis Sheehan PA-C - Last Filed: 08/24/25 18:49> Exam Narrative: GENERAL: Chronically ill-appearing, morbidly obese with BMI of 56.8, non-toxic, in no acute distress. HEAD: Normocephalic, atraumatic. NECK: Mild diffuse tenderness throughout cervical region and paraspinal musculature. No palpable bony deformities. RESPIRATORY: Airway patent, respirations nonlabored. Clear to auscultation bilaterally, no rales, rhonchi, wheezing. CARDIOVASCULAR: Regular rate and rhythm without murmurs, rubs, or gallops. Peripheral pulses intact. MUSCULOSKELETAL: Moves all extremities. No gross deformities. Diffuse tenderness throughout lower thoracic/lumbar region. No appreciable bony deformities but limited d/t body habitus. Mild diffuse tenderness throughout proximal humerus bilaterally. No appreciable bruising or swelling SKIN: Warm, dry, normal color. NEURO: A&O X3. Speech clear. Cranial nerves II-XII grossly intact. No ataxic movements. PSYCHIATRIC: Appropriate mood and affect. Normal interaction. <Glenis Sheehan PA-C - Last Filed: 08/24/25 18:49> Course ORDER PICKER/ASSEMBLER/PA Physician Supervision This visit was performed by both a physician and an APC; I performed all aspects of the medical decision making component of this evaluation as documented. <Lex Jo MD - Last Filed: 08/24/25 15:24> Vital Signs Vital signs: Vital Signs Temperature 98.3 F 08/24/25 08:45 Pulse Rate 77 08/24/25 08:45 Respiratory Rate 18 08/24/25 08:45 Blood Pressure 136/45 L 08/24/25 08:45 Pulse Oximetry 100 08/24/25 08:45 Oxygen Delivery Nasal Cannula 08/24/25 08:45 Oxygen Flow Rate 3 08/24/25 08:45 Temperature 98.1 F 08/24/25 15:14 Pulse Rate 79 08/24/25 15:14 Respiratory Rate 16 08/24/25 15:14 Blood Pressure 131/56 L 08/24/25 15:14 Pulse Oximetry 96 08/24/25 16:40 Oxygen Delivery Nasal Cannula 08/24/25 16:40 Oxygen Flow Rate 3 08/24/25 16:40 <Glenis Sheehan PA-C - Last Filed: 08/24/25 18:49> Vital Signs Temperature 98.3 F 08/24/25 08:45 Pulse Rate 77 08/24/25 08:45 Respiratory Rate 18 08/24/25 08:45 Blood Pressure 136/45 L 08/24/25 08:45 Pulse Oximetry 100 08/24/25 08:45 Oxygen Delivery Nasal Cannula 08/24/25 08:45 Oxygen Flow Rate 3 08/24/25 08:45 Temperature 98.1 F 08/24/25 15:14 Pulse Rate 79 08/24/25 15:14 Respiratory Rate 16 08/24/25 15:14 Blood Pressure 131/56 L 08/24/25 15:14 Pulse Oximetry 96 08/24/25 16:40 Oxygen Delivery Nasal Cannula 08/24/25 16:40 Oxygen Flow Rate 3 08/24/25 16:40 <Lex Jo MD - Last Filed: 08/24/25 15:24> MDM MDM Narrative Medical decision making narrative: Patient presented to ED status post fall from wheelchair in transportation to dialysis today. Missed treatment today. History of end-stage renal disease on dialysis Wednesday. Sees Dr. Calix. CT brain/cervical spine w/o traumatic findings. CT of thoracic/lumbar spine showing acute appearing superior endplate fractures of T12/L1. Consistent with patient's area of pain. Remainder of imaging w/o acute fx or traumatic findings Discussed case with Dr. Magana, neurosurgery, advised can place LSO brace for comfort, have patient follow-up in office in the next few weeks. [facility] was notified. Will come out to fit patient. Unfortunately unable to properly fit patient for brace given body habitus. [facility] also advised that bracing typically not recommended while lying flat. Unable to tolerate bracing. Fractures will need to be treated via pain control Patient unfortunately missed her dialysis treatment today. CMP w/creatinine 5.85. Fairly consistent with baseline per records. Potassium 5.3. Attempted to find alternate dialysis appointment for patient however unable to obtain appt for patient today or tomorrow through [place], [place], or [facility]. Additionally, patient's [place] [facility] advised they may not be able to accommodate for alternative transportation. Will admit to arrange for dialysis therapy. Discussed case with Elizabeth Ba ORDER PICKER/ASSEMBLER hospitalist, accepted patient for admission. Nephrology consulted. Patient in agreement with plan. <Glenis Sheehan PA-C - Last Filed: 08/24/25 18:49> Differential Diagnosis Differential Diagnosis: cervical fx, cervical strain, thoracic fracture, thoracic strain, lumbar fracture, lumbar strain, humerus fracture, shoulder strain, concussion, intracranial bleeding <ELIZABETH Haynes Last Filed: 08/24/25 18:49> Medical Records I have reviewed the following patient records and this information was taken into consideration when formulating the assessment and plan.: previous labs, previous ER visits, previous hospitalizations and previous clinic visits <Glenis Sheehan PA-C - Last Filed: 08/24/25 18:49> Lab Data MDM Lab Attestation statement: I personally reviewed the patient's lab results. <ELIZABETH Haynes Last Filed: 08/24/25 18:49> Result diagrams: 08/24/25 11:04 08/24/25 11:04 <ELIZABETH Haynes Last Filed: 08/24/25 18:49> Labs: Lab Results 08/24/25 Range/Units 11:04 WBC 8.7 (4.5-10.0) K/mm3 RBC 3.14 L (4.2-5.4) M/mm3 Hgb 9.6 L (12.0-15.0) g/dL Hct 31.8 L (37.0-47.0) % MCV 101.3 H (80-100) fl MCH 30.6 (26-34) pg MCHC 30.2 L (32-36) g/dl RDW 15.2 H (11.5-14.5) % Plt Count 142 L (150-375) k/mm3 MPV 9.2 (7.4-10.4) fl Immature Gran % (Auto) 0.9 H (0-0.5) % Neut % (Auto) 80.9 H (45.5-73.1) % Lymph % (Auto) 12.5 L (18.3-44.2) % Wirt % (Auto) 5.7 (2.6-8.5) % Eos % (Auto) 0.0 (0-4.4) % Baso % (Auto) 0.0 L (0.2-1.2) % Lymph # (Auto) 1.09 (0.9-3.2) K/mm3 Wirt # (Auto) 0.5 (0.1-0.6) K/mm3 Eos # (Auto) 0.0 (0-0.3) K/mm3 Baso # (Auto) 0.0 (0.0-0.1) K/mm3 Abs Immat Gran (auto) 0.08 H (0.00-0.031) K/mm3 Absolute Neuts (auto) 7.1 H (1.3-6.7) K/mm3 Absolute Nucleated RBC 0.000 (0.0-0.012) K/mm3 Nucleated RBC % 0.0 (0.0-0.2) % PT 13.3 (11.1-14.7) Seconds INR 1.0 APTT 23.7 (22.3-36.8) Seconds Sodium 136 L (137-145) mmol/L Potassium 5.3 H (3.4-5.0) mmol/L Chloride 99 (98-107) mmol/L Carbon Dioxide 29 (22-30) mmol/L Anion Gap 8 (4-12) mmol/L BUN 74 H (7-17) mg/dL Creatinine 5.85 H (0.7-1.0) mg/dL Estim Creat Clear Calc 14 ml/min Estimated GFR 7 L (59 - ) Glucose 214 H (65-110) mg/dL Calcium 9.4 (8.4-10.2) mg/dL Total Bilirubin 0.6 (0.2-1.3) mg/dL AST 19 (14-36) U/L ALT 18 (6-35) U/L Alkaline Phosphatase 106 (38-126) U/L Total Protein 6.7 (6.3-8.2) g/dL Albumin 3.9 (3.5-5.1) g/dL <Glenis Sheehan PA-C - Last Filed: 08/24/25 18:49> Lab Results 08/24/25 Range/Units 11:04 WBC 8.7 (4.5-10.0) K/mm3 RBC 3.14 L (4.2-5.4) M/mm3 Hgb 9.6 L (12.0-15.0) g/dL Hct 31.8 L (37.0-47.0) % MCV 101.3 H (80-100) fl MCH 30.6 (26-34) pg MCHC 30.2 L (32-36) g/dl RDW 15.2 H (11.5-14.5) % Plt Count 142 L (150-375) k/mm3 MPV 9.2 (7.4-10.4) fl Immature Gran % (Auto) 0.9 H (0-0.5) % Neut % (Auto) 80.9 H (45.5-73.1) % Lymph % (Auto) 12.5 L (18.3-44.2) % Wirt % (Auto) 5.7 (2.6-8.5) % Eos % (Auto) 0.0 (0-4.4) % Baso % (Auto) 0.0 L (0.2-1.2) % Lymph # (Auto) 1.09 (0.9-3.2) K/mm3 Wirt # (Auto) 0.5 (0.1-0.6) K/mm3 Eos # (Auto) 0.0 (0-0.3) K/mm3 Baso # (Auto) 0.0 (0.0-0.1) K/mm3 Abs Immat Gran (auto) 0.08 H (0.00-0.031) K/mm3 Absolute Neuts (auto) 7.1 H (1.3-6.7) K/mm3 Absolute Nucleated RBC 0.000 (0.0-0.012) K/mm3 Nucleated RBC % 0.0 (0.0-0.2) % PT 13.3 (11.1-14.7) Seconds INR 1.0 APTT 23.7 (22.3-36.8) Seconds Sodium 136 L (137-145) mmol/L Potassium 5.3 H (3.4-5.0) mmol/L Chloride 99 (98-107) mmol/L Carbon Dioxide 29 (22-30) mmol/L Anion Gap 8 (4-12) mmol/L BUN 74 H (7-17) mg/dL Creatinine 5.85 H (0.7-1.0) mg/dL Estim Creat Clear Calc 14 ml/min Estimated GFR 7 L (59 - ) Glucose 214 H (65-110) mg/dL Calcium 9.4 (8.4-10.2) mg/dL Total Bilirubin 0.6 (0.2-1.3) mg/dL AST 19 (14-36) U/L ALT 18 (6-35) U/L Alkaline Phosphatase 106 (38-126) U/L Total Protein 6.7 (6.3-8.2) g/dL Albumin 3.9 (3.5-5.1) g/dL <Lex Jo MD - Last Filed: 08/24/25 15:24> Imaging Data Attestation: I personally reviewed and interpreted this imaging study as follows: <Glenis Sheehan PA-C - Last Filed: 08/24/25 18:49> Radiologist's impression: ITS Impressions Head CT 08/24/25 09:48 Impression: 1.No acute intracranial abnormality. Thoracic/Lumbar Spine CT 08/24/25 09:58 Impression: Acute appearing endplate fractures detailed above. Incidental findings above Humerus X-Ray 08/24/25 10:07 Impression: No acute fracture or malalignment. Tibia/Fibula X-Ray 08/24/25 10:32 IMPRESSION: No fracture lucency identified. Foot X-Ray 08/24/25 10:35 IMPRESSION: 1. No displaced fracture lucency. The bones are diffusely osteopenic. Ankle X-Ray 08/24/25 11:19 IMPRESSION: 1. No displaced fracture lucency. The bones are diffusely osteopenic. Cervical Spine CT 08/24/25 11:52 IMPRESSION: 1. Moderate cervical spondylosis. No acute osseous abnormality. <Glenis Sheehan PA-C - Last Filed: 08/24/25 18:49> ITS Impressions Head CT 08/24/25 09:48 Impression: 1.No acute intracranial abnormality. Thoracic/Lumbar Spine CT 08/24/25 09:58 Impression: Acute appearing endplate fractures detailed above. Incidental findings above Humerus X-Ray 08/24/25 10:07 Impression: No acute fracture or malalignment. Tibia/Fibula X-Ray 08/24/25 10:32 IMPRESSION: No fracture lucency identified. Foot X-Ray 08/24/25 10:35 IMPRESSION: 1. No displaced fracture lucency. The bones are diffusely osteopenic. Ankle X-Ray 08/24/25 11:19 IMPRESSION: 1. No displaced fracture lucency. The bones are diffusely osteopenic. Cervical Spine CT 08/24/25 11:52 IMPRESSION: 1. Moderate cervical spondylosis. No acute osseous abnormality. <Lex Jo MD - Last Filed: 08/24/25 15:24> Discharge Plan Discharge Clinical Impression: End-stage renal disease on hemodialysis, Missed dialysis, Chronic hypoxic respiratory failure, on home oxygen therapy Accidental fall from wheelchair Qualifiers: Encounter type: initial encounter Qualified Code(s): W05.0XXA - Fall from non-moving wheelchair, initial encounter T12 compression fracture Qualifiers: Encounter type: initial encounter Qualified Code(s): S22.080A - Wedge compression fracture of T11-T12 vertebra, initial encounter for closed fracture Compression fracture of L1 vertebra Qualifiers: Encounter type: initial encounter Qualified Code(s): S32.010A - Wedge compression fracture of first lumbar vertebra, initial encounter for closed fracture <Glenis Sheehan PA-C - Last Filed: 08/24/25 18:49> Patient Disposition: Still a Patient <Glenis Sheehan PA-C - Last Filed: 08/24/25 18:49> Condition: Stable <Glenis Sheehan PA-C - Last Filed: 08/24/25 18:49>
[2025-08-24] MEDS: HYDROcodone/acetaminophen (*CRX) 5-325 MG TABLET 1 TAB PO ×2 (10:26→18:10)
[2025-08-24 11:13] LABS: Hematocrit 31.8 % (37.0-47.0); Hemoglobin 9.6 g/dL (12.0-15.0); Immature Granulocyte Percent A 0.9 % (0-0.5); Lymphocytes Absolute Auto 1.09 K/mm3 (0.9-3.2); Mean Corpuscular HGB Conc 30.2 g/dl (32-36); Mean Corpuscular Hemoglobin 30.6 pg (26-34); Mean Corpuscular Volume 101.3 fl (80-100); Nucleated Red Blood Cells Absolute Auto 0.000 K/mm3 (0.0-0.012); Nucleated Red Blood Cells Perc 0.0 % (0.0-0.2); Platelet Count Result 142 k/mm3 (150-375); Red Blood Count 3.14 M/mm3 (4.2-5.4); White Blood Count 8.7 K/mm3 (4.5-10.0)
[2025-08-24 11:23] LABS: INR 1.0; Partial Thromboplastin Time 23.7 Seconds (22.3-36.8); Prothrombin Time 13.3 Seconds (11.1-14.7)
[2025-08-24 11:40] LABS: Alanine Aminotransferase 18 U/L (6-35); Albumin Level 3.9 g/dL (3.5-5.1); Alkaline Phosphatase 106 U/L (38-126); Anion Gap 8 mmol/L (4-12); Aspartate Amino Transferase 19 U/L (14-36); Bilirubin,Total 0.6 mg/dL (0.2-1.3); Blood Urea Nitrogen 74 mg/dL (7-17); Calcium 9.4 mg/dL (8.4-10.2); Carbon Dioxide 29 mmol/L (22-30); Chloride 99 mmol/L (98-107); Estimated CRCL calculation 14 ml/min; Estimated Glomerular Filt Rate 7; Glucose 214 mg/dL (65-110); Potassium 5.3 mmol/L (3.4-5.0); Sodium 136 mmol/L (137-145); Total Protein 6.7 g/dL (6.3-8.2)
--- NOTE | 2025-08-24 12:06 | ECG_ITS ---
Test Date: 2025-08-24 12:36:45 Measurements Intervals [place] Rate: 71 P: 66 DE: 176 QRS: 34 QRSD: 100 T: 64 QT: 394 QTc: 430 Interpretive Statements SINUS RHYTHM EARLY PRECORDIAL R/S TRANSITION LOW QRS VOLTAGE IN PRECORDIAL LEADS BASELINE ARTIFACT- I, II, AVR BORDERLINE ECG Compared to ECG 04/29/2025 12:26:52 No significant changes Electronically Signed On 08-24-2025 12:40:55 TICKET WRITER by Simon Lozano D.O.
--- NOTE | 2025-08-24 14:58 | PM.IMHP2 ---
H&P: HPI History of Present Illness Date/Time: 08/24/25 14:58 Chief Complaint: Fall Narrative: 65 y/o F with PMH of ESRD on HD (MWF), seizure disorder, chronic anemia, rheumatoid arthritis, paroxysmal AFib, gout, fibromyalgia, SHELDON, COPD, diastolic heart failure, bipolar 1 disorder, anxiety/depression, and hypertension presents here with fall from wheelchair and missed dialysis. The patient presents here from her local dialysis center ([facility]) via EMS for further evaluation of low back pain after a fall from her wheelchair. The patient was being transported in a medical than for her dialysis treatments that she received on Mondays, Wednesdays, and Fridays. She was in a wheelchair in the back of the than when she slid out of her chair when the van came to a stop. She reports pain between her shoulder blades and her lower back post fall. Pain more significant in her lower back. She is bed-bound at baseline and currently resides at [facility]. Due to the fall she was unable to receive her dialysis treatment today. She denies any associated numbness or tingling in her lower extremities, loss of bowel or bladder, or additional areas of trauma. No palpitations, chest pain, or worsening shortness of breath. Initial VS at presentation: 98.3? F, HR 77, RR 18, 136/45, and 100% on 3 L nasal cannula (baseline requirement). ED workup showed: No leukocytosis, hemoglobin 9.6 (at baseline), normal coags, sodium 136, potassium 5.3, creatinine 5.85 and GFR 7, glucose 214. Head CT showed no acute intracranial abnormality. L-spine/T-spine CT showed an acute appearing endplate fracture involving T12 and L1 with loss of height of 10%, no subluxation noted. Bilateral humeral XR showed no acute fracture. Tib fib, left, XR showed no fracture. Left foot XR showed no fracture, diffusely osteopenic. Left ankle XR showed no fracture, diffusely osteopenic. C-spine CT showed moderate cervical spondylosis, no acute osseous abnormality. Review of Systems Review of Systems: All systems reviewed & are unremarkable except as noted in HPI and below PMFSH Past Medical History Medical History Chronic anemia HTN (hypertension) Resolved, no longer on medications. Now on midodrine. Hypothyroidism DM2 (diabetes mellitus, type 2) Pulmonary embolism Occult blood in stools Seizure disorder Immobility Rheumatoid arthritis PAF (paroxysmal atrial fibrillation) Fibromyalgia Gout Obesity hypoventilation syndrome SHELDON (obstructive sleep apnea) Chronic respiratory failure with hypoxia COPD (chronic obstructive pulmonary disease) Diastolic heart failure Bipolar 1 disorder Anxiety and depression Left renal mass suspected malignancy Nephrolithiasis ESRD on dialysis COPD (chronic obstructive pulmonary disease) Surgical History Surgical History History of cystoscopy S/P ureteral reimplantation History of hysterectomy S/P hemodialysis catheter insertion Family History Family History Father Lung cancer Grandparent Colon cancer Mother Congestive heart failure Social History Social History Smoking packs per day: 1 Smoking cigarettes per day: 20.0 Years smoked: 30 Smoking pack-years: 30.00 Smoking status: Former smoker Tobacco type: cigarettes Second hand tobacco smoke exposure: Yes Alcohol intake: never Substance use: never Substance use type: does not use Last use: 06/13/21 Lack of Transportation: No Lack of Food: Never True Current Housing: I Have Housing Concerned About Future Housing: No Difficulty Paying Gas/Electric Bills: No Difficulty Paying for Meds: No Currently Unemployed: No Education: High School Diploma/GED Difficulty w/ Childcare or Family Care: No Gender identity (if verbalized by the patient): Female Sexual Orientation (if Verbalized by the Patient): Straight or Heterosexual Spiritual care concerns: No Meds Home Medications and Allergies Home Medications ?Medication ?Instructions ?Recorded ?Confirmed ?Type atorvastatin 40 mg tablet 40 mg PO QHS 06/30/21 08/24/25 History fluticasone propionate 50 1 spray intranasal DAILY 06/30/21 08/24/25 History mcg/actuation nasal spray,suspension hydrocodone 5 mg-acetaminophen 325 1 tablet PO Q8H PRN Pain Rated 4-6 06/30/21 08/24/25 History mg tablet levetiracetam 500 mg tablet 500 mg PO BID 06/30/21 08/24/25 History acetaminophen 325 mg tablet 650 mg PO Q6H PRN fever or pain 01/13/25 08/24/25 History (Aminofen) albuterol 90 mcg-budesonide 80 2 inh inhalation .every 6 hours 01/13/25 08/24/25 History mcg/actuation HFA aerosol inhaler PRN shortness of breath or wheezing (Airsupra) baclofen 5 mg tablet 5 mg PO TID 01/13/25 08/24/25 History cholecalciferol (vitamin D3) 50 2,000 unit PO DAILY 01/13/25 08/24/25 History mcg (2,000 unit) capsule diclofenac sodium 1 % topical gel 1 ea topical Q6H PRN pain 01/13/25 08/24/25 History (Arthritis Pain (diclofenac)) diphenhydramine HCl 25 mg capsule 50 mg PO Q8H PRN allergy symptoms 01/13/25 08/24/25 History (Aler-Cap) ergocalciferol (vitamin D2) 1,250 1,250 mcg PO WEEKLY 01/13/25 08/24/25 History mcg (50,000 unit) capsule escitalopram oxalate 10 mg tablet 20 mg PO DAILY 01/13/25 08/24/25 History hydroxyzine HCl 25 mg tablet 25 mg PO TID 01/13/25 08/24/25 History ipratropium 0.5 mg-albuterol 3 mg 3 ml inhalation Q2H PRN shortness 01/13/25 08/24/25 History (2.5 mg base)/3 mL nebulization of breath soln insulin aspart U-100 100 unit/mL 1 sliding scale dose subcut 04/06/25 08/24/25 History (3 mL) subcutaneous pen (Novolog .before meals FlexPen U-100 Insulin aspart) montelukast 10 mg tablet 10 mg PO DAILY 04/06/25 08/24/25 History nystatin 100,000 unit/gram topical 1 applic topical BID 04/06/25 08/24/25 History powder ondansetron HCl 4 mg tablet 4 mg PO Q8H PRN nausea and vomiting 04/06/25 08/24/25 History oxcarbazepine 150 mg tablet 150 mg PO BID 04/06/25 08/24/25 History quetiapine 25 mg tablet 25 mg PO HS 04/06/25 08/24/25 History trazodone 50 mg tablet 50 mg PO HS 04/06/25 08/24/25 History cyanocobalamin (vitamin B-12) 1,000 mcg PO DAILY 04/07/25 08/24/25 History 1,000 mcg tablet (Vitamin B-12) amzvkygtcpmwc-OA-pkbjamqfvlh 2.5 15 ml PO Q6H PRN cough 04/07/25 08/24/25 History mg-5 mg-50 mg/5 mL oral liquid (Robitussin Cough and Cold CF) guaifenesin 600 mg tablet, 1,200 mg (2 x 600 mg) PO Q12HR #30 04/25/25 08/24/25 Rx extended release 12 hr (Mucus tabs Relief ER) peg [id number]-nqsvagdp 1 1 drp EACH EYE QID PRN Dry Eye(S) 04/25/25 08/24/25 Rx %-0.2 %-0.2 % eye drops #5 mL (Artificial Tears ([id number]-[id number]-kqpxeqbd)) lactulose 10 gram/15 mL oral 30 ml PO DAILY constipation 04/29/25 08/24/25 History solution (Enulose) prednisone 10 mg tablet 10 mg PO DAILY 04/29/25 08/24/25 History polyethylene glycol 3350 17 gram 17 g PO QAM PRN Constipation #30 ea 05/01/25 08/24/25 Rx oral powder packet (Miralax) albuterol sulfate 2.5 mg/3 mL 2.5 mg inhalation Q6H 08/24/25 08/24/25 History (0.083 %) solution for nebulization ferrous sulfate 325 mg (65 mg 325 mg PO DAILY 08/24/25 08/24/25 History iron) tablet,delayed release furosemide 40 mg tablet 40 mg PO BID 08/24/25 08/24/25 History hydrocortisone 1 % topical cream 1 applic topical BID PRN itching 08/24/25 08/24/25 History (Anti-Itch (hydrocortisone)) insulin glargine-yfgn 100 unit/mL 15 unit subcut QPM 08/24/25 08/24/25 History subcutaneous solution midodrine 10 mg tablet 5 mg PO WITH DIALYSIS Hypotension 08/24/25 08/24/25 History with dialysis potassium chloride 20 mEq 20 meq PO DAILY 08/24/25 08/24/25 History tablet,extended release(part/cryst) sucroferric oxyhydroxide 500 mg 1,000 mg PO TIDWM 08/24/25 08/24/25 History chewable tablet (Velphoro) Allergies Allergy/AdvReac Type Severity Reaction Status Date / Time Penicillins Allergy Severe Anaphylaxis Verified 08/24/25 16:17 Vital Signs Vital Signs - 24 hr 08/24/25 08:45 08/24/25 08:53 08/24/25 09:00 Temperature 98.3 F Pulse Rate 77 Respiratory Rate 18 Blood Pressure 136/45 L Pulse Oximetry 100 100 100 Oxygen Delivery Nasal Cannula Oxygen Flow Rate 3 08/24/25 09:02 08/24/25 09:15 08/24/25 09:16 Temperature Pulse Rate Respiratory Rate Blood Pressure 116/36 L 106/54 L Pulse Oximetry 100 100 100 Oxygen Delivery Oxygen Flow Rate 08/24/25 09:30 08/24/25 09:31 08/24/25 10:25 Temperature Pulse Rate Respiratory Rate Blood Pressure 122/49 L Pulse Oximetry 100 100 94 Oxygen Delivery Oxygen Flow Rate 08/24/25 10:27 08/24/25 10:30 08/24/25 10:31 Temperature Pulse Rate Respiratory Rate Blood Pressure 124/54 L 124/56 L Pulse Oximetry 100 100 100 Oxygen Delivery Oxygen Flow Rate 08/24/25 10:45 08/24/25 10:46 08/24/25 11:00 Temperature Pulse Rate Respiratory Rate Blood Pressure 101/40 L Pulse Oximetry 100 100 100 Oxygen Delivery Oxygen Flow Rate 08/24/25 11:01 08/24/25 11:15 08/24/25 11:16 Temperature Pulse Rate Respiratory Rate Blood Pressure 109/57 L 108/52 L Pulse Oximetry 99 100 99 Oxygen Delivery Oxygen Flow Rate 08/24/25 11:30 08/24/25 11:31 08/24/25 11:45 Temperature Pulse Rate Respiratory Rate Blood Pressure 104/90 Pulse Oximetry 100 100 100 Oxygen Delivery Oxygen Flow Rate 08/24/25 11:46 08/24/25 12:00 08/24/25 12:01 Temperature Pulse Rate Respiratory Rate Blood Pressure 105/50 L 100/50 L Pulse Oximetry 99 100 100 Oxygen Delivery Oxygen Flow Rate 08/24/25 12:15 08/24/25 12:17 Temperature Pulse Rate Respiratory Rate Blood Pressure 105/45 L Pulse Oximetry 100 100 Oxygen Delivery Oxygen Flow Rate Exam Const: General: comfortable and no acute distress Other: , female, older than stated age, obese body habitus, nontoxic appearance HENMT: Face/Nose/Sinus: Normal nares present Mouth: Yes moist mucous membranes Eyes: General: appearance normal, both eyes and all related structures Sclera: sclerae normal Pupils: Equal, round and reactive pupils present EOM: EOMs intact bilaterally Chest: Other: HD catheter to right chest, no signs of infection Resp: Effort & Inspection: normal respiratory effort Other: Nasal cannula place, tolerating well. Distant breath sounds. No crackles or wheezing. Cardio: Rate: regular rate Rhythm: regular rhythm Other: S1-S2 present without murmur, rub, ectopy GI: Other: Abdomen soft, nondistended, nontender. Normoactive bowel sounds in all quadrants. Skin: General skin exam: normal color and no rashes or lesions noted Wounds: no wounds Neuro: Speech: normal speech Motor exam (neuro): 5/5 motor strength present throughout Sensory Exam: normal sensation Other: A&O x4 Extrem: General: normal to inspection Psych: Mental Status: mental status grossly normal Affect: normal affect Other: Good insight and judgment, very pleasant Results Labs Labs: Short CBC 08/24/25 Range/Units 11:04 WBC 8.7 (4.5-10.0) K/mm3 Hgb 9.6 L (12.0-15.0) g/dL Hct 31.8 L (37.0-47.0) % Plt Count 142 L (150-375) k/mm3 BMP 08/24/25 11:04 Sodium 136 L Potassium 5.3 H Chloride 99 Carbon Dioxide 29 BUN 74 H Creatinine 5.85 H Glucose 214 H Calcium 9.4 Liver Function 08/24/25 Range/Units 11:04 Total Bilirubin 0.6 (0.2-1.3) mg/dL AST 19 (14-36) U/L ALT 18 (6-35) U/L Alkaline Phosphatase 106 (38-126) U/L Albumin 3.9 (3.5-5.1) g/dL Quality VTE Prophylaxis VTE prophylaxis: mechanical ordered Assessment and Plan Assessment and plan (1) End-stage renal disease on hemodialysis: Code(s): N18.6 - End stage renal disease; Z99.2 - Dependence on renal dialysis Status: Acute Assessment and Plan: Hx of ESRD on Mondays, Wednesdays, Fridays. Missed treatment on 08/24 (Wed) due to slide from WC. - nephrology consulted for inpatient dialysis - plan for dialysis on Sat (08/25)? - trend electrolytes and correct as needed in interim, mild hyperkalemia noted. see below. (2) Hyperkalemia: Code(s): E87.5 - Hyperkalemia Status: Acute Assessment and Plan: - K 5.3 upon admission, mild - given 1 dose of Lokelma per Nephrology recommendation - hold home potassium, 20 mEq daily - monitor (3) Accidental fall from wheelchair: Qualifiers: Encounter type: initial encounter Qualified Code(s): W05.0XXA - Fall from non-moving wheelchair, initial encounter Code(s): W05.0XXA - Fall from non-moving wheelchair, initial encounter Status: Acute Assessment and Plan: Patient sustained a ground level fall on 08/24. Being transported in a medical van when she had a slight from her wheelchair causing her to have increased pain to her lower back and between her shoulder blades. CT of the T-spine/L-spine showed an acute appearing superior endplate fracture involving T12 and L1 with loss of height 10%, no subluxation noted. [facility] attempted to place a TLSO brace for comfort per neuro surgery (Dr. Magana), however due to patient body habitus they were unable to place the brace. Patient is wheelchair-bound at baseline, therefore it may not have had any benefit regardless. - analgesics p.r.n. (4) T12 compression fracture: Qualifiers: Encounter type: initial encounter Qualified Code(s): S22.080A - Wedge compression fracture of T11-T12 vertebra, initial encounter for closed fracture Code(s): S22.080A - Wedge compression fracture of T11-T12 vertebra, initial encounter for closed fracture Status: Acute Assessment and Plan: - see above (5) Compression fracture of L1 vertebra: Qualifiers: Encounter type: initial encounter Qualified Code(s): S32.010A - Wedge compression fracture of first lumbar vertebra, initial encounter for closed fracture Code(s): S32.010A - Wedge compression fracture of first lumbar vertebra, initial encounter for closed fracture Status: Acute Assessment and Plan: - see above (6) Afib: Qualifiers: Atrial fibrillation type: paroxysmal Qualified Code(s): I48.0 - Paroxysmal atrial fibrillation Code(s): I48.91 - Unspecified atrial fibrillation Status: Chronic Assessment and Plan: - hx of pAfib - initial EKG in the ED showed sinus rhythm - continue home medications (7) DM2 (diabetes mellitus, type 2): Qualifiers: Chronic kidney disease stage: on chronic dialysis Diabetes mellitus complication detail: with chronic kidney disease Diabetes mellitus complication status: with kidney complications Diabetes mellitus drug enforcement agent insulin use: with drug enforcement agent use Qualified Code(s): E11.22 - Type 2 diabetes mellitus with diabetic chronic kidney disease; N18.6 - End stage renal disease; Z79.4 - USP (current) use of insulin; Z99.2 - Dependence on renal dialysis Code(s): E11.9 - Type 2 diabetes mellitus without complications Status: Chronic Assessment and Plan: - hypoglycemia protocol - POC blood glucose ACHS - home medication: Hold home sliding scale. Continue glargine, pharmacist to adjust. - correct regimen ordered - high dose TIDWM, based off BMI - A1C 5.3% on 04/07/2025 (8) Chronic respiratory failure: Qualifiers: Respiratory failure complication: hypoxia Qualified Code(s): J96.11 - Chronic respiratory failure with hypoxia Code(s): J96.10 - Chronic respiratory failure, unspecified whether with hypoxia or hypercapnia Status: Chronic Assessment and Plan: - hx of COPD, chronic respiratory failure with hypoxia, SHELDON, and obesity hypoventilation syndrome - wears 3L nasal cannula baseline, at baseline requirement (9) Obstructive sleep apnea treated with BiPAP: Code(s): G47.33 - Obstructive sleep apnea (adult) (pediatric) Status: Chronic Assessment and Plan: - continue home BiPAP Plan Diet: renal/dialysis GI Prophylaxis: n/a DVT Prophylaxis: SCDs IV fluids: none Lines/Tubes: Peripheral IV, HD catheter R chest Code Status: full code Prior Studies I have reviewed the following patient records and this information was taken into consideration when formulating the assessment and plan.: previous labs, previous ER visits, previous hospitalizations and previous clinic visits Time Spent with Patient Time with patient: less than 45 minutes Hospitalist MIPS Advance Care Plan I have confirmed that the patient's Advanced Care Plan is present, code status is documented, or surrogate decision maker is listed in patient medical record.: Yes Medication Reconciliation I have utilized all available resources to obtain, update and review the patients current medications (includes all prescriptions, OTC, herbals, cannabis, and nutritional supplements).: Yes
--- NOTE | 2025-08-24 15:15 | WPCEDHO ---
ED Hand Off Checklist All vitals saved:y IV Site documented:y All med administrations documented:y Triage Note Triage Note To ed via ems. Pt was sitting in 08/24/25 08:45 a reclining wc in the back of a van and slid out of her chair when van came to a stop. c/o neck, back and left arm pain. No deformity noted. Pt does not walk and lives at [facility] [place]. Pt was on her way to dialysis. Uses home 02. Allergies Penicillins Allergy (Severe, Verified 08/24/25 08:52) Anaphylaxis Pt states anaphylaxis as a child. Family History (Last Reviewed 08/24/25 @ 10:24 by Glenis Sheehan PA-C) Father Lung cancer Grandparent Colon cancer Mother Congestive heart failure Administered/Completed Medications Discontinued Medications Hydrocodone Bitart/Acetaminophen (Hydrocodone/Acetaminophen (*Crx) 5-325 Mg Tablet) 1 tab PO ONCE STA Stop: 08/24/25 09:30 Last Admin: 08/24/25 10:26 Dose: 1 tab Documented By: ESTEFANI Morphine Sulfate (Morphine Sulfate (*Crx) 4 Mg/Ml Inj) 4 mg IV PUSH ONCE STA Stop: 08/24/25 12:12 Last Admin: 08/24/25 12:17 Dose: Not Given Documented By: ESTEFANI Non-Admin Reason: Order Discontinued Ondansetron HCl (Ondansetron Inj 4 Mg/2 Ml Vial) 4 mg IV PUSH ONCE STA Stop: 08/24/25 12:12 Last Admin: 08/24/25 12:17 Dose: Not Given Documented By: ESTEFANI Non-Admin Reason: Order Discontinued Interventions/Assessments IV Line Assessment Start: 08/24/25 08:33 Freq: Status: Active Protocol: Document 08/24/25 12:15 ESTEFANI (Rec: 08/24/25 12:15 ESTEFANI [id number]) IV Assessment Peripheral Access Right Forearm IV Catheter Access Initiated IV Insertion Date 08/24/25 IV Insertion Time 12:15 Catheter Gauge 20 IV Insertion 3 Attempts Ultrasound Used for Yes Placement IV Site Assessment WNL IV Care and WNL Maintenance Last Vital Signs Temperature 98.1 F 08/24/25 15:14 Pulse Rate 79 08/24/25 15:14 Respiratory Rate 16 08/24/25 15:14 Pulse Oximetry 100 08/24/25 15:14 Blood Pressure 131/56 L 08/24/25 15:14 Blood Pressure Mean 81 08/24/25 15:14 Blood Pressure Position Supine 08/24/25 08:45 Oxygen Delivery Nasal Cannula 08/24/25 08:45 Oxygen Flow Rate 3 08/24/25 08:45 Weight 166 kg 08/24/25 08:45 Last Result - Abnormals Only RBC 3.14 M/mm3 (4.2-5.4) L 08/24/25 11:04 Hgb 9.6 g/dL (12.0-15.0) L 08/24/25 11:04 Hct 31.8 % (37.0-47.0) L 08/24/25 11:04 MCV 101.3 fl (80-100) H 08/24/25 11:04 MCHC 30.2 g/dl (32-36) L 08/24/25 11:04 RDW 15.2 % (11.5-14.5) H 08/24/25 11:04 Plt Count 142 k/mm3 (150-375) L 08/24/25 11:04 Immature Gran % (Auto) 0.9 % (0-0.5) H 08/24/25 11:04 Neut % (Auto) 80.9 % (45.5-73.1) H 08/24/25 11:04 Lymph % (Auto) 12.5 % (18.3-44.2) L 08/24/25 11:04 Baso % (Auto) 0.0 % (0.2-1.2) L 08/24/25 11:04 Abs Immat Gran (auto) 0.08 K/mm3 (0.00-0.031) H 08/24/25 11:04 Absolute Neuts (auto) 7.1 K/mm3 (1.3-6.7) H 08/24/25 11:04 Sodium 136 mmol/L (137-145) L 08/24/25 11:04 Potassium 5.3 mmol/L (3.4-5.0) H 08/24/25 11:04 BUN 74 mg/dL (7-17) H 08/24/25 11:04 Creatinine 5.85 mg/dL (0.7-1.0) H 08/24/25 11:04 Estimated GFR 7 (59-) L 08/24/25 11:04 Glucose 214 mg/dL (65-110) H 08/24/25 11:04 Most Recent Suicide Severity Rating Suicide Severity Rating NO RISK INDICATED 08/24/25 08:45
--- NOTE | 2025-08-24 16:05 | P.CONNP_ITS ---
Assessment and Plan Assessment and plan (1) End stage renal disease: Code(s): N18.6 - End stage renal disease Status: Acute Assessment and Plan: * HD tomorrow * resume outpatient schedule of Mondays, Wednesdays, and Fridays next week if remains hospitalized * follow electrolytes, volume status, and clearance (2) Hyperkalemia: Code(s): E87.5 - Hyperkalemia Status: Acute Assessment and Plan: * mild elevation noted by admission labs * s/p dosing with lokelma in ER * hold potassium supplements * dialysis should further correct * follow repeat K+ levels (3) Accidental fall from wheelchair: Qualifiers: Encounter type: initial encounter Qualified Code(s): W05.0XXA - Fall from non-moving wheelchair, initial encounter Code(s): W05.0XXA - Fall from non-moving wheelchair, initial encounter Status: Acute Assessment and Plan: * as noted by admission history * imaging/injuries/trauma noted: * head CT showed no acute intracranial abnormality * L-spine/T-spine CT showed an acute appearing endplate fracture involving T12 and L1 with loss of height of 10% with no subluxation noted * C-spine CT showed moderate cervical spondylosis but no acute osseous abnormality * bilateral humeral XR showed no acute fracture * left fibula/fibula without fracture * left foot XR showed no fracture but diffusely osteopenic * left ankle XR showed no fracture but diffusely osteopenic * Neurosurgery recommendations noted * no surgical intervention * TLSO brace attempted but unable to accommodate due to body habitus * pain control (4) Chronic respiratory failure: Code(s): J96.10 - Chronic respiratory failure, unspecified whether with hypoxia or hypercapnia Status: Acute Assessment and Plan: * multifactorial etiology: * COPD * asthma * SHELDON * OHS * CHF * on chronic supplemental oxygen (3L by NC at baseline) * on BiPAP at the [facility] * continue supportive therapy (5) CHF (congestive heart failure): Qualifiers: Heart failure chronicity: unspecified Heart failure type: unspecified Qualified Code(s): I50.9 - Heart failure, unspecified Code(s): I50.9 - Heart failure, unspecified Status: Acute Assessment and Plan: * first noted in 2020 if not longer * Echo at that time with evidence of chronic diastolic dysfunction * recent Echo (March 2025) noted: * normal biventricular size and systolic function * valves are not well visualized in this study for overall appears to not have any significant valvular abnormalities in the visualized acoustic window * fluid removal with dialysis to maintain euvolemia (6) Anemia: Qualifiers: Anemia type: due to chronic kidney disease Chronic kidney disease stage: on chronic dialysis Qualified Code(s): N18.6 - End stage renal disease; D63.1 - Anemia in chronic kidney disease; Z99.2 - Dependence on renal dialysis Code(s): D64.9 - Anemia, unspecified Status: Chronic Assessment and Plan: * due to ESRD * Epogen with dialysis * follow trend of H/H (7) HTN (hypertension): Qualifiers: Hypertension type: unspecified Qualified Code(s): I10 - Essential (primary) hypertension Code(s): I10 - Essential (primary) hypertension Status: Inactive Assessment and Plan: * reasonable control * despite history, off antihypertensives at this time * on midodrine for dialysis purposes (to help facilitate fluid removal due to intradialytic hypotension) (8) DM2 (diabetes mellitus, type 2): Qualifiers: Chronic kidney disease stage: on chronic dialysis Diabetes mellitus complication detail: with chronic kidney disease Diabetes mellitus complication status: with kidney complications Diabetes mellitus termite control technician insulin use: with termite control technician use Qualified Code(s): E11.22 - Type 2 diabetes mellitus with diabetic chronic kidney disease; N18.6 - End stage renal disease; Z79.4 - terminal computer operator (current) use of insulin; Z99.2 - Dependence on renal dialysis Code(s): E11.9 - Type 2 diabetes mellitus without complications Status: Chronic Assessment and Plan: * follow accu-cheks * glycemic control per hospitalist I will continue to follow the patient with you while he remains hospitalized and make further recommendations as deemed necessary. Thank you for allowing me to participate in the care of this patient. L History of Present Illness Reason for Consult Consult date: 08/24/25 Reason for consult: end stage renal disease Chief Complaint Chief complaint: FALL History of Present Illness Narrative: The patient is a 65-year-old female with an extensive medical history as outlined below who presented to [facility] ER from her nursing facility due to back discomfort s/p fall. The patient was on her way to her outpatient dialysis treatment when the fall occurred. She usually travels to her dialysis treatments from her nursing facility by medical van. She usually is in a reclined wheelchair in the back of the medical van. The medical van came to a sudden stop which resulted in her sliding out of her wheelchair. Following the fall out of her wheelchair, she reported immediate pain/discomfort in between her shoulder blades and lower back with more severity in her lower back. She denied any other symptoms (other than pain) with regard to shortness of breath, chest pain, nausea, vomiting, palpitations, or lightheadedness. No other reported trauma noted. Due to the fall and associated pain, EMS was called and she was subsequently transferred to the ER for further assessment. She was unable to receive her scheduled dialysis treatment due to this fall and transfer to the ER. Workup and evaluation emergency room demonstrated the patient to be hemodynamically stable and on her chronic oxygen therapy (3L) but in mild distress secondary to pain. Routine blood work demonstrated a normal white blood cell count, relative anemia, normal coagulation studies, and a chemistry panel that was consistent with her known history of end-stage renal disease with mildly elevated potassium with a glucsose of 214. Extensive imaging was done due to her fall -- Head CT showed no acute intracranial abnormality; L-spine/T-spine CT showed an acute appearing endplate fracture involving T12 and L1 with loss of height of 10% with no subluxation noted; bilateral humeral XRs showed no acute fracture; left ibula/fibula XRs showed no fracture; left foot XR showed no fracture but was noted to be diffusely osteopenic; left ankle XR showed no fracture but with diffuse osteopenic; C-spine CT showed moderate cervical spondylosis and no acute osseous abnormality. She was subsequently admitted to the hospital for further evaluation and therapy. Renal consultation was requested due to her end-stage renal disease. The patient is quite familiar to me as I take care her with regard to her outpatient end stage renal disease needs. Since her initiation on renal replacement therapy/dialysis, the patient has been admitted numerous times at [facility] as well as [facility] for acute on chronic respiratory failure in conjunction with altered mental status with some of these admissions requiring intubation and mechanical ventilation related to CO2 narcosis and infection. She currently dialyzes on a M//F schedule at [facility] under my care. Her last outpatient dialysis treatment was on Wednesday (08/22/25) which was apparently uneventful. She was due to for dialysis today but this did not occur due to the above mentioned events. Currently, at the time my visit, she is no acute distress aside from pain/discomfort from the fall. Review of Systems 2 Review of Systems: As per HPI. [facility] Past Medical History Medical History (Updated 08/25/25 @ 10:23 by FAINA Torres) Chronic anemia Hypothyroidism DM2 (diabetes mellitus, type 2) Pulmonary embolism Occult blood in stools ESRD on dialysis Seizure disorder Immobility Rheumatoid arthritis PAF (paroxysmal atrial fibrillation) Fibromyalgia Gout Obesity hypoventilation syndrome SHELDON (obstructive sleep apnea) Chronic respiratory failure with hypoxia COPD (chronic obstructive pulmonary disease) Diastolic heart failure Bipolar 1 disorder Anxiety and depression Left renal mass suspected malignancy Nephrolithiasis HTN (hypertension) Resolved, no longer on medications. Now on midodrine. COPD (chronic obstructive pulmonary disease) Surgical History Surgical History History of cystoscopy S/P ureteral reimplantation History of hysterectomy S/P hemodialysis catheter insertion Family History Family History Father Lung cancer Grandparent Colon cancer Mother Congestive heart failure Social History Social History Smoking packs per day: 1 Smoking cigarettes per day: 20.0 Years smoked: 30 Smoking pack-years: 30.00 Smoking status: Former smoker Tobacco type: cigarettes Second hand tobacco smoke exposure: Yes Alcohol intake: never Substance use: never Substance use type: does not use Last use: 06/13/21 Lack of Transportation: No Lack of Food: Never True Current Housing: I Have Housing Concerned About Future Housing: No Difficulty Paying Gas/Electric Bills: No Difficulty Paying for Meds: No Currently Unemployed: No Education: High School Diploma/GED Difficulty w/ Childcare or Family Care: No Gender identity (if verbalized by the patient): Female Sexual Orientation (if Verbalized by the Patient): Straight or Heterosexual Spiritual care concerns: No Meds Home Medications and Allergies Home Medications ?Medication ?Instructions ?Recorded ?Confirmed ?Type atorvastatin 40 mg tablet 40 mg PO QHS 06/30/21 History fluticasone propionate 50 1 spray intranasal DAILY 08/24/25 History mcg/actuation nasal spray,suspension hydrocodone 5 mg-acetaminophen 325 1 tablet PO Q8H PRN Pain Rated 4-6 06/30/21 08/24/25 History mg tablet levetiracetam 500 mg tablet 500 mg PO BID 06/30/2109/06 History acetaminophen 325 mg tablet 650 mg PO Q6H PRN fever or pain 01/13/25 08/24/25 History (Aminofen) albuterol 90 mcg-budesonide 80 2 inh inhalation .every 6 hours 01/13/25 08/24/25 History mcg/actuation HFA aerosol inhaler PRN shortness of katheryn ath or wheezing (Airsupra) baclofen 5 mg tablet 5 mg PO TID 01/13/25 5 History cholecalciferol (vitamin D3) 50 2,000 unit PO DAILY 08/24/25 History mcg (2,000 unit) capsule diclofenac sodium 1 % topical gel 1 ea topical Q6H PRN pain 01/13/25 08/24/25 History (Arthritis Pain (diclofenac)) diphenhydramine HCl 25 mg capsule 50 mg PO Q8H PRN all ergy symptoms 01/13/25 08/24/25 History (Aler-Cap) ergocalciferol (vitamin D2) 1,250 1,250 mcg PO WEEKLY 01/13/25 08/24/25 History mcg (50,000 unit) capsule escitalopram oxalate 10 mg tablet 20 mg PO DAILY 01/1308/24/25 History hydroxyzine HCl 25 mg tablet 25 mg PO TID 01/13/2509/06 History ipratropium 0.5 mg-albuterol 3 mg 3 ml inhalation Q2H PRN shortness 01/13/25 08/24/25 History (2.5 mg base)/3 mL nebulization of breath soln insulin aspart U-100 100 unit/mL 1 sliding scale dose subcut 04/06/25 08/24/25 History (3 mL) subcutaneous pen (Novolog .before meals FlexPen U-100 Insulin aspart) montelukast 10 mg tablet 10 mg PO DAILY 04/06/2508/13 History nystatin 100,000 unit/gram topical 1 applic topical BI D 04/06/25 08/24/25 History powder ondansetron HCl 4 mg tablet 4 mg PO Q8H PRN nausea and vomiting 04/06/25 08/24/25 History oxcarbazepine 150 mg tablet 150 mg PO BID 04/06/2509/06 History quetiapine 25 mg tablet 25 mg PO HS 04/06/25 5 History trazodone 50 mg tablet 50 mg PO HS 04/06/25 5 History cyanocobalamin (vitamin B-12) 1,000 mcg PO DAILY 04/0708/24/25 History 1,000 mcg tablet (Vitamin B-12) sybnjqzyjubpb-VD-rnwyrzjmnal 2.5 15 ml PO Q6H PRN coug h 04/07/25 08/24/25 History mg-5 mg-50 mg/5 mL oral liquid (Robitussin Cough and Cold CF) guaifenesin 600 mg tablet, 1,200 mg (2 x 600 mg) PO Q1 2HR #30 04/25/25 08/24/25 Rx extended release 12 hr (Mucus tabs Relief ER) peg [id number]-blaovujuzseu-lomreilk 1 1 drp EACH EYE QID PRN Dry Eye(S) 04/25/25 08/24/25 Rx %-0.2 %-0.2 % eye drops #5 mL (Artificial Tears ([id number])) lactulose 10 gram/15 mL oral 30 ml PO DAILY constipati on 04/29/25 08/24/25 History solution (Enulose) prednisone 10 mg tablet 10 mg PO DAILY 04/29/2508/13 History polyethylene glycol 3350 17 gram 17 g PO QAM PRN Const ipation #30 ea 05/01/25 08/24/25 Rx oral powder packet (Miralax) albuterol sulfate 2.5 mg/3 mL 2.5 mg inhalation Q6H 08/24/25 History (0.083 %) solution for nebulization ferrous sulfate 325 mg (65 mg 325 mg PO DAILY 08/24/25 08/24/25 History iron) tablet,delayed release furosemide 40 mg tablet 40 mg PO BID 08/24/25 History hydrocortisone 1 % topical cream 1 applic topical BID PRN itching 08/24/25 08/24/25 History (Anti-Itch (hydrocortisone)) insulin glargine-yfgn 100 unit/mL 15 unit subcut QPM 1 10/25/24 08/24/25 History subcutaneous solution midodrine 10 mg tablet 5 mg PO WITH DIALYSIS Hypote nsion 08/24/25 08/24/25 History with dialysis potassium chloride 20 mEq 20 meq PO DAILY 08/24/2509/06 History tablet,extended release(part/cryst) sucroferric oxyhydroxide 500 mg 1,000 mg PO TIDWM 08/1308/24/25 History chewable tablet (Velphoro) Allergies Allergy/AdvReac Type Severity Reaction Status Date / Time Penicillins Allergy Severe Anaphylaxis Verified 08/24/25 16:17 Vital Signs Vital Signs Temp Pulse Resp BP Pulse Ox O2 Del Method O2 Flow Rate 08/24/25 15:14 98.1 F 79 16 131/56 L 100 08/24/25 12:17 105/45 L 100 08/24/25 12:15 100 08/24/25 12:01 100/50 L 100 08/24/25 12:00 100 08/24/25 11:46 105/50 L 99 08/24/25 11:45 100 08/24/25 11:31 104/90 100 08/24/25 11:30 100 08/24/25 11:16 108/52 L 99 08/24/25 11:15 100 08/24/25 11:01 109/57 L 99 08/24/25 11:00 100 08/24/25 10:46 101/40 L 100 08/24/25 10:45 100 08/24/25 10:31 124/56 L 100 08/24/25 10:30 100 08/24/25 10:27 124/54 L 100 08/24/25 10:25 94 08/24/25 09:31 122/49 L 100 08/24/25 09:30 100 08/24/25 09:16 106/54 L 100 08/24/25 09:15 100 08/24/25 09:02 116/36 L 100 08/24/25 09:00 100 08/24/25 08:53 100 08/24/25 08:45 98.3 F 77 18 136/45 L 100 Nasal Cannula 3 Exam 2 Narrative: GENERAL APPEARANCE: large female resting comfortably in bed HEENT: normocephalic, atraumatic, mild pallor to conjunctiva and sclera, nares patient NECK: no lymphadenopathy, thyromegaly, or JVD MOUTH: normal lips, teeth, and gums CARDIOVASCULAR: RRR, normal S1 and S2, no rub RESPIRATORY: coarse breath sounds; decreased at bases ABDOMEN: obsese but soft, nontender, nondistended, positive bowel sounds present EXTREMITIES: no evidence of cyanosis, clubbing, trace edema NEUROLOGICAL: awake and alert; CN II - XII intact bilaterally; no focal deficits noted Results Lab Results 08/25/25 05:13 08/25/25 05:13 Lab results: Most recent lab results Calcium 9.4 mg/dL (8.4-10.2) 08/24/25 11:04
--- NOTE | 2025-08-24 16:05 | ADMGEN ---
This patient, Cathy Greene, was admitted to Medical Room 246-01. Patient/family oriented to hospital policies and general routines including ID bracelet, bed and alarms, visiting hours, pain management, procedures, bathroom and other care routines, personal items, smoking policy, room service/diet, and visiting hours. Information on how to activate the Rapid Response Team has been discussed. Patient/Family are encouraged to report perceived risks to care and to ask questions if they do not understand what they are told or what they should do.
[2025-08-24] MEDS: SODIUM ZIRCONIUM CYCLOSILICATE 10 GM POWD.PACK PO (18:11)
[2025-08-24] MEDS: INSULIN ASPART (*BKC) 100 UNITS/ML SUB-Q ×2 (18:13→21:31)
[2025-08-24 18:17] LABS: MRSA (PCR) NOT DETECTED (NOT DETECTE)
[2025-08-24] MEDS: guaiFENesin 12 HR 600 MG TABCR 1200 MG PO (20:34)
[2025-08-24] MEDS: ATORVASTATIN 40 MG TABLET PO (20:34)
[2025-08-24] MEDS: ALBUTEROL SULFATE NEB 2.5 MG/3 ML INH INHALATION (20:39)
[2025-08-25] VITALS (37 sets, daily range): BP systolic 94–131; BP diastolic 45–70; PULSE 65–87; RESP 16; TEMP 36.1–37; O2SAT 98–100
[2025-08-25] MEDS: MORPHINE SULFATE (*CRX) 4 MG/ML INJ 2 MG IV PUSH ×2 (01:01→19:56)
[2025-08-25] MEDS: ALBUTEROL SULFATE NEB 2.5 MG/3 ML INH INHALATION ×4 (02:03→20:04)
[2025-08-25] MEDS: diphenhydrAMINE HCl CAP 25 MG CAPSULE 50 MG PO ×2 (05:36→18:16)
[2025-08-25 06:00] LABS: Hematocrit 28.9 % (37.0-47.0); Hemoglobin 8.7 g/dL (12.0-15.0); Immature Granulocyte Percent A 0.8 % (0-0.5); Lymphocytes Absolute Auto 1.30 K/mm3 (0.9-3.2); Mean Corpuscular HGB Conc 30.1 g/dl (32-36); Mean Corpuscular Hemoglobin 30.6 pg (26-34); Mean Corpuscular Volume 101.8 fl (80-100); Nucleated Red Blood Cells Absolute Auto 0.000 K/mm3 (0.0-0.012); Nucleated Red Blood Cells Perc 0.0 % (0.0-0.2); Platelet Count Result 145 k/mm3 (150-375); Red Blood Count 2.84 M/mm3 (4.2-5.4); White Blood Count 7.5 K/mm3 (4.5-10.0)
[2025-08-25 06:23] LABS: Alanine Aminotransferase 14 U/L (6-35); Albumin Level 3.6 g/dL (3.5-5.1); Alkaline Phosphatase 92 U/L (38-126); Anion Gap 9 mmol/L (4-12); Aspartate Amino Transferase 17 U/L (14-36); Bilirubin,Total 0.6 mg/dL (0.2-1.3); Blood Urea Nitrogen 88 mg/dL (7-17); Calcium 8.6 mg/dL (8.4-10.2); Carbon Dioxide 28 mmol/L (22-30); Chloride 98 mmol/L (98-107); Estimated CRCL calculation 12 ml/min; Estimated Glomerular Filt Rate 6; Glucose 138 mg/dL (65-110); Magnesium 2.2 mg/dL (1.6-2.3); Potassium 5.8 mmol/L (3.4-5.0); Sodium 135 mmol/L (137-145); Total Protein 6.2 g/dL (6.3-8.2)
[2025-08-25 06:49] LABS: Hepatitis B Surface Antigen Negative (Negative)
--- NOTE | 2025-08-25 07:05 | P.PNIM_ITS ---
Assessment and Plan Assessment and Plan (1) End-stage renal disease on hemodialysis: Code(s): N18.6 - End stage renal disease; Z99.2 - Dependence on renal dialysis Status: Acute Assessment and Plan: - Hx of ESRD on Mondays, Wednesdays, Fridays. Missed treatment on 08/24 (Wed) due to fall. - nephrology consulted for inpatient dialysis - plan for dialysis today - trend electrolytes and correct as needed in interim, mild hyperkalemia noted. see below. (2) Hyperkalemia: Code(s): E87.5 - Hyperkalemia Status: Acute Assessment and Plan: - K+ 5.8 this AM. - given 1 dose of Lokelma per Nephrology recommendation - hold home potassium, 20 mEq daily - management with dialysis - monitor (3) Accidental fall from wheelchair: Qualifiers: Encounter type: initial encounter Qualified Code(s): W05.0XXA - Fall from non-moving wheelchair, initial encounter Code(s): W05.0XXA - Fall from non-moving wheelchair, initial encounter Status: Acute Assessment and Plan: Patient sustained a ground level fall on 08/24. Being transported in a medical van when she had a slide from her wheelchair causing her to have increased pain to her lower back and between her shoulder blades. - CT of the T-spine/L-spine showed an acute appearing superior endplate fracture involving T12 and L1 with loss of height 10%, no subluxation noted. -Screw Machine [employer] [facility] attempted to place a TLSO brace for comfort per neuro surgery (Dr. Magana), however due to patient body habitus they were unable to place the brace. Patient is wheelchair-bound at baseline, therefore it may not have had any benefit regardless. - analgesics p.r.n.. Weaning IV narcotics (4) T12 compression fracture: Qualifiers: Encounter type: initial encounter Qualified Code(s): S22.080A - Wedge compression fracture of T11-T12 vertebra, initial encounter for closed fracture Code(s): S22.080A - Wedge compression fracture of T11-T12 vertebra, initial encounter for closed fracture Status: Acute Assessment and Plan: - see above (5) Compression fracture of L1 vertebra: Qualifiers: Encounter type: initial encounter Qualified Code(s): S32.010A - Wedge compression fracture of first lumbar vertebra, initial encounter for closed fracture Code(s): S32.010A - Wedge compression fracture of first lumbar vertebra, initial encounter for closed fracture Status: Acute Assessment and Plan: - see above (6) Afib: Qualifiers: Atrial fibrillation type: paroxysmal Qualified Code(s): I48.0 - Paroxysmal atrial fibrillation Code(s): I48.91 - Unspecified atrial fibrillation Status: Chronic Assessment and Plan: - hx of pAfib - initial EKG in the ED showed sinus rhythm - continue home medications (7) DM2 (diabetes mellitus, type 2): Qualifiers: Chronic kidney disease stage: on chronic dialysis Diabetes mellitus complication detail: with chronic kidney disease Diabetes mellitus complication status: with kidney complications Diabetes mellitus continuous churn buttermaker insulin use: with assisted use Qualified Code(s): E11.22 - Type 2 diabetes mellitus with diabetic chronic kidney disease; N18.6 - End stage renal disease; Z79.4 - roasterman (current) use of insulin; Z99.2 - Dependence on renal dialysis Code(s): E11.9 - Type 2 diabetes mellitus without complications Status: Chronic Assessment and Plan: - hypoglycemia protocol - POC blood glucose ACHS - home medication: Hold home sliding scale. Continue glargine, pharmacist to adjust. - moderate dose SSI - A1C 5.3% on 04/07/2025 (8) Chronic respiratory failure: Qualifiers: Respiratory failure complication: hypoxia Qualified Code(s): J96.11 - Chronic respiratory failure with hypoxia Code(s): J96.10 - Chronic respiratory failure, unspecified whether with hypoxia or hypercapnia Status: Chronic Assessment and Plan: - hx of COPD, chronic respiratory failure with hypoxia, SHELDON, and obesity hyp oventilation syndrome - wears 3L nasal cannula baseline, at baseline requirement (9) Obstructive sleep apnea treated with BiPAP: Code(s): G47.33 - Obstructive sleep apnea (adult) (pediatric) Status: Chronic Assessment and Plan: - continue home BiPAP (10) Chronic anemia: Code(s): D64.9 - Anemia, unspecified Status: Acute Assessment and Plan: - Hgb 8.7. Chronic in setting of ESRD. Plan DVT prophylaxis: heparin subQ Code status: full code Dispo: back to [facility] Medical Record Review I have reviewed the following patient records and this information was taken into consideration when formulating the assessment and plan.: previous labs Subjective Date/time seen: 08/25/25 07:05 Interval history: Patient seen and examined at bedside. Patient still complaining of back pain along with chronic neuropathy symptoms. Has chronic bladder and bowel inc ontinence. Review of Systems Review of Systems: All systems reviewed & are unremarkable except as noted in HPI and below Objective Data Vital Signs Vital Signs: Vital Signs - 24 hr 08/24/25 08:45 08/24/25 08:53 08/24/25 09:00 Temperature 98.3 F Pulse Rate 77 Respiratory Rate 18 Blood Pressure 136/45 L Pulse Oximetry 100 100 100 Oxygen Delivery Nasal Cannula Oxygen Flow Rate 3 08/24/25 09:02 08/24/25 09:15 08/24/25 09:16 Temperature Pulse Rate Respiratory Rate Blood Pressure 116/36 L 106/54 L Pulse Oximetry 100 100 100 Oxygen Delivery Oxygen Flow Rate 08/24/25 09:30 12/12/25 09:31 08/24/25 10:25 Temperature Pulse Rate Respiratory Rate Blood Pressure 122/49 L Pulse Oximetry 100 100 94 Oxygen Delivery Oxygen Flow Rate 08/24/25 10:27 08/24/25 10:30 08/24/25 10:31 Temperature Pulse Rate Respiratory Rate Blood Pressure 124/54 L 124/56 L Pulse Oximetry 100 100 100 Oxygen Delivery Oxygen Flow Rate 08/24/25 10:45 08/24/25 10:46 08/24/25 11:00 Temperature Pulse Rate Respiratory Rate Blood Pressure 101/40 L Pulse Oximetry 100 100 100 Oxygen Delivery Oxygen Flow Rate 08/24/25 11:01 08/24/25 11:15 08/24/25 11:16 Temperature Pulse Rate Respiratory Rate Blood Pressure 109/57 L 108/52 L Pulse Oximetry 99 100 99 Oxygen Delivery Oxygen Flow Rate 08/24/25 11:30 08/24/25 11:31 08/24/25 11:45 Temperature Pulse Rate Respiratory Rate Blood Pressure 104/90 Pulse Oximetry 100 100 100 Oxygen Delivery Oxygen Flow Rate 08/24/25 11:46 08/24/25 12:00 08/24/25 12:01 Temperature Pulse Rate Respiratory Rate Blood Pressure 105/50 L 100/50 L Pulse Oximetry 99 100 100 Oxygen Delivery Oxygen Flow Rate 08/24/25 12:15 08/24/25 12:17 08/24/25 15:14 Temperature 98.1 F Pulse Rate 79 Respiratory Rate 16 Blood Pressure 105/45 L 131/56 L Pulse Oximetry 100 100 100 Oxygen Delivery Oxygen Flow Rate 08/24/25 16:40 08/24/25 20:00 08/24/25 20:40 Temperature Pulse Rate 89 Respiratory Rate 16 Blood Pressure Pulse Oximetry 96 100 Oxygen Delivery Nasal Cannula Nasal Cannula Oxygen Flow Rate 3 3 08/24/25 20:43 08/24/25 20:48 08/24/25 21:34 Temperature 97.3 F L Pulse Rate 89 74 Respiratory Rate 16 20 Blood Pressure 100/74 Pulse Oximetry 96 100 Oxygen Delivery Nasal Cannula Oxygen Flow Rate 4 08/25/25 02:03 08/25/25 02:07 08/25/25 02:10 Temperature Pulse Rate 87 87 Respiratory Rate 16 16 Blood Pressure Pulse Oximetry Oxygen Delivery Autopap Oxygen Flow Rate 08/25/25 05:37 Temperature 97.0 F L Pulse Rate 70 Respiratory Rate 16 Blood Pressure 121/52 L Pulse Oximetry 100 Oxygen Delivery Oxygen Flow Rate Meds/Results Medications: Active Medications Generic Name Dose Route Start Last Admin Trade Name Freq PRN Reason Stop Dose Admin Acetaminophen 650 mg 08/24/25 15:58 Acetaminophen 325 Mg Tablet PO Q4H PRN Mild Pain (1-3) or Fever Hydrocodone Bitart/Acetaminophen 1 tab 08/24/25 14:03 08/24/25 18:10 Hydrocodone/Acetaminophen (*Crx) 5-325 Mg Tablet PO 1 tab Q4H PRN Administration Pain Rated 4-6 Albuterol 2.5 mg 08/24/25 20:00 08/25/25 02:03 Albuterol Sulfate Neb 2.5 Mg/3 Ml Inh INHALATION 2.5 mg Q6HRT MARLEEN Administration Albuterol/Ipratropium 3 ml 08/24/25 18:39 Ipratropium 0.5 Mg/Albuterol Sulfate 2.5 Mg (Base) Ampul.Neb 3 Ml INHALATION Q2HRT PRN Shortness Of Breath Artificial Tears 1 drop 08/24/25 18:39 Artificial Tears Ophth Soln 15 Ml Bottle EACH EYE QID PRN Dry Eye(s) Atorvastatin Calcium 40 mg 08/24/25 21:00 08/24/25 20:34 Atorvastatin 40 Mg Tablet PO 40 mg QHS [facility] Administration Bisacodyl 5 mg 08/24/25 15:58 Bisacodyl 5 Mg Tablet Ec PO DAILY PRN Constipation Cyanocobalamin 1,000 mcg 08/25/25 09:00 Cyanocobalamin 1,000 Mcg Tablet PO DAILY [facility] Dextrose 12.5 gm 08/24/25 14:08 Dextrose 50% 25 Gm/50 Ml Syringe IV PUSH PRN PRN Hypoglycemia Protocol Diclofenac Sodium 1 applic 08/24/25 18:39 Diclofenac Sodium 1% 100 Gm Gel (*Bkc) TOPICAL Q6H PRN Pain Diphenhydramine HCl 50 mg 08/24/25 18:39 08/25/25 05:36 Diphenhydramine Hcl Cap 25 Mg Capsule PO 50 mg Q8H PRN Administration allergy symptoms Ergocalciferol 1,250 mcg 08/25/25 09:00 Ergocalciferol (Vitamin D2) 1,250 Mcg (50,000 Units) Capsule PO WEEKLY [facility] Escitalopram Oxalate 20 mg 08/25/25 09:00 Escitalopram Oxalate 10 Mg Tablet PO DAILY MARLEEN Ferrous Sulfate 325 mg 08/25/25 09:00 Ferrous Sulfate 325 Mg Tablet PO DAILY [facility] Fluticasone Propionate 1 spray 08/25/25 09:00 Fluticasone Propionate 0.05% Na Spr 16 Gm Btl (*Bkc) NASAL DAILY MARLEEN Furosemide 40 mg 08/25/25 09:00 Furosemide 40 Mg Tablet PO BID MARLEEN Glucagon 1 mg 08/24/25 14:08 Glucagon For Inj 1 Mg Vial IM PRN PRN Hypoglycemia Protocol Glucose 15 gm 08/24/25 14:08 Glucose Oral Gel 15 Gm Of Glucse In 37.5 Gm Tube PO PRN PRN Hypoglycemia Protocol Guaifenesin 1,200 mg 08/24/25 21:00 08/24/25 20:34 Guaifenesin 12 Hr 600 Mg Tabcr PO 1,200 mg Q12HR MARLEEN Administration Hydrocortisone 1 applic 08/24/25 18:39 Hydrocortisone 1% 30 Gm Cream TOPICAL BID PRN Itching Hydroxyzine HCl 25 mg 08/25/25 09:00 Hydroxyzine Hcl 25 Mg Tablet PO TID MARLE[facility] Dextrose 1,000 mls @ 100 mls/hr 08/24/25 14:08 Dextrose 5% 1,000 Ml IVPB PRN PRN Hypoglycemia Protocol Insulin Aspart 4 - 8 units 08/24/25 17:00 08/24/25 18:13 Insulin Aspart (*Bkc) 100 Units/Ml SUB-Q 5 units TIDWM MARLEEN Administration Protocol Insulin Aspart 2 - 4 units 08/24/25 21:00 08/24/25 21:31 Insulin Aspart (*Bkc) 100 Units/Ml SUB-Q 2 units HS MARLEEN Administration Protocol Insulin Glargine 12 units 08/25/25 21:00 Insulin Glargine (Lantus) 1,000 Units/10 Ml Vial SUB-Q HS MARLEEN Lactulose 20 gm 08/25/25 09:00 Lactulose 20 Gm/30 Ml Udc PO DAILY MARLE[facility] Levetiracetam 500 mg 08/24/25 21:00 08/24/25 20:34 Levetiracetam 500 Mg Tablet PO 500 mg Q12HR MARLEEN Administration Midodrine 5 mg 08/27/25 18:40 Midodrine Hcl 2.5 Mg Tablet PO MoWeFr [facility] Miscellaneous Information 0 each 08/24/25 00:01 Hydrocortisone Cream Add Site Of Use XX 09/23/25 00:00 CLARIFY MARLEEN Miscellaneous Information 0 each 08/24/25 00:01 Velphoro (Sucroferric Oxyhydroxide) Nonform Can Pt Hold Or Bring From Home? XX 09/23/25 00:00 CLARIFY MARLEEN Miscellaneous Information 1 each 08/24/25 19:03 Central Supply Item Tolnaftate (Sub For Nystatin) XX 08/25/25 19:02 PRN PRN Informational Miscellaneous Information 0 each 08/24/25 00:01 Robitussin Cough And Cold Nonform Hold While Here? XX 09/23/25 00:00 CLARIFY MARLEEN Montelukast Sodium 10 mg 08/25/25 09:00 Montelukast Sodium 10 Mg Tablet PO DAILY MARLE[facility] Morphine Sulfate 2 mg 08/24/25 15:58 08/25/25 01:01 Morphine Sulfate (*Crx) 4 Mg/Ml Inj IV PUSH 2 mg Q4H PRN Administration Pain Rated 7-10 Non-Formulary Medication 15 ml 08/24/25 18:39 [id number] [Robitussin Cough And Cold Cf] PO Q6H PRN cough Non-Formulary Medication 1,000 mg 08/25/25 08:00 Sucroferric Oxyhydroxide [Velphoro] PO 09/24/25 07:59 TIDWM [facility] Ondansetron HCl 4 mg 08/24/25 18:39 Ondansetron Hcl Odt 4 Mg Tablet PO Q8H PRN Nausea And Vomiting Oxcarbazepine 150 mg 08/24/25 21:00 08/24/25 20:36 Oxcarbazepine 150 Mg Tablet PO 150 mg Q12HR MARLEEN Administration Polyethylene Glycol 17 gm 08/24/25 18:39 Polyethylene Glycol 3350 17 Gm Powd.Pack PO QAM PRN Constipation Prednisone 10 mg 08/25/25 09:00 Prednisone 10 Mg Tablet PO DAILY MARLE[facility] Quetiapine Fumarate 25 mg 08/24/25 21:00 08/24/25 20:34 Quetiapine Fumarate 25 Mg Tablet PO 25 mg HS MARLEEN Administration Trazodone HCl 50 mg 08/24/25 21:00 08/24/25 20:34 Trazodone Hcl 50 Mg Tablet PO 50 mg HS MARLEEN Administration Vitamin D 50 mcg 12/13/25 09:00 Cholecalciferol (Vitamin D3) 25 Mcg (1,000 Units) Tablet PO DAILY [facility] Radiology Results: ITS Impressions Head CT 08/24/25 09:48 Impression: 1.No acute intracranial abnormality. Thoracic/Lumbar Spine CT 08/24/25 09:58 Impression: Acute appearing endplate fractures detailed above. Incidental findings above Humerus X-Ray 08/24/25 10:07 Impression: No acute fracture or malalignment. Tibia/Fibula X-Ray 08/24/25 10:32 IMPRESSION: No fracture lucency identified. Foot X-Ray 08/24/25 10:35 IMPRESSION: 1. No displaced fracture lucency. The bones are diffusely osteopenic. Ankle X-Ray 08/24/25 11:19 IMPRESSION: 1. No displaced fracture lucency. The bones are diffusely osteopenic. Cervical Spine CT 08/24/25 11:52 IMPRESSION: 1. Moderate cervical spondylosis. No acute osseous abnormality. Labs Labs: Laboratory Results - last 24 hr 08/24/25 08/24/25 08/24/25 11:04 16:41 17:00 WBC 8.7 RBC 3.14 L Hgb 9.6 L Hct 31.8 L MCV 101.3 H MCH 30.6 MCHC 30.2 L RDW 15.2 H Plt Count 142 L MPV 9.2 Immature Gran % (Auto) 0.9 H Neut % (Auto) 80.9 H Lymph % (Auto) 12.5 L [place] % (Auto) 5.7 Eos % (Auto) 0.0 Baso % (Auto) 0.0 L Lymph # (Auto) 1.09 [place] # (Auto) 0.5 Eos # (Auto) 0.0 Baso # (Auto) 0.0 Abs Immat Gran (auto) 0.08 H Absolute Neuts (auto) 7.1 H Absolute Nucleated RBC 0.000 Nucleated RBC % 0.0 PT 13.3 INR 1.0 APTT 23.7 Sodium 136 L Potassium 5.3 H Chloride 99 Carbon Dioxide 29 Anion Gap 8 BUN 74 H Creatinine 5.85 H Estim Creat Clear Calc 14 Estimated GFR 7 L Glucose 214 H POC Capillary Glucose 284 H Calcium 9.4 Phosphorus Magnesium Total Bilirubin 0.6 AST 19 ALT 18 Alkaline Phosphatase 106 Total Protein 6.7 Albumin 3.9 Nasal MRSA (PCR) Not detected Hep Bs Antigen 08/24/25 08/25/25 21:18 05:13 WBC 7.5 RBC 2.84 L Hgb 8.7 L Hct 28.9 L MCV 101.8 H MCH 30.6 MCHC 30.1 L RDW 15.1 H Plt Count 145 L MPV 9.3 Immature Gran % (Auto) 0.8 H Neut % (Auto) 75.5 H Lymph % (Auto) 17.3 L [place] % (Auto) 6.3 Eos % (Auto) 0.0 Baso % (Auto) 0.1 L Lymph # (Auto) 1.30 [place] # (Auto) 0.5 Eos # (Auto) 0.0 Baso # (Auto) 0.0 Abs Immat Gran (auto) 0.06 H Absolute Neuts (auto) 5.7 Absolute Nucleated RBC 0.000 Nucleated RBC % 0.0 PT INR APTT Sodium 135 L Potassium 5.8 H Chloride 98 Carbon Dioxide 28 Anion Gap 9 BUN 88 H D Creatinine 6.68 H Estim Creat Clear Calc 12 Estimated GFR 6 L Glucose 138 H POC Capillary Glucose 224 H Calcium 8.6 Phosphorus 8.0 H Magnesium 2.2 Total Bilirubin 0.6 AST 17 ALT 14 Alkaline Phosphatase 92 Total Protein 6.2 L Albumin 3.6 Nasal MRSA (PCR) Hep Bs Antigen Negative
[2025-08-25 07:07] LABS: Hepatitis B Surface Anti Res Negative
[2025-08-25] MEDS: HYDROcodone/acetaminophen (*CRX) 5-325 MG TABLET 1 TAB PO (08:55)
[2025-08-25] MEDS: ERGOCALCIFEROL (VITAMIN D2) 1,250 MCG (50,000 UNITS) CAPSULE 1250 MCG PO (08:57)
[2025-08-25] MEDS: guaiFENesin 12 HR 600 MG TABCR 1200 MG PO ×2 (08:57→20:54)
[2025-08-25] MEDS: ESCITALOPRAM OXALATE 10 MG TABLET 20 MG PO (08:57)
[2025-08-25] MEDS: MONTELUKAST SODIUM 10 MG TABLET PO (08:58)
[2025-08-25] MEDS: FERROUS SULFATE 325 MG TABLET PO (08:58)
[2025-08-25] MEDS: FLUTICASONE PROPIONATE 0.05% NA SPR 16 GM BTL (*BKC) 1 SPRAY NASAL (08:58)
[2025-08-25] MEDS: CHOLECALCIFEROL (VITAMIN D3) 25 MCG (1,000 UNITS) TABLET 50 MCG PO (08:58)
[2025-08-25] MEDS: FUROSEMIDE 40 MG TABLET PO ×2 (08:58→18:16)
[2025-08-25] MEDS: HYDROCORTISONE 1% 30 GM CREAM 1 APPLIC TOPICAL (09:12)
[2025-08-25] MEDS: ALBUMIN HUMAN 25% 12.5 GM/50ML 50 ML IVPB ×3 (10:50→12:17)
[2025-08-25] MEDS: EPOETIN ALFA-EPBX 10,000 UNITS/ML VIAL 10000 UNITS IV PUSH (13:14)
--- NOTE | 2025-08-25 13:30 | P.PNNP_ITS ---
Progress Note: A&P Assessment and Plan (1) End stage renal disease: Code(s): N18.6 - End stage renal disease Status: Acute Assessment and Plan: * HD today * resume outpatient schedule of Mondays, Wednesdays, and Fridays next week if remains hospitalized * on midodrine for dialysis purposes (maintain BP with fluid removal given known history of intradialytic hypotension) * follow electrolytes, volume status, and clearance (2) Hyperkalemia: Code(s): E87.5 - Hyperkalemia Status: Acute Assessment and Plan: * mild elevation by admission labs * s/p dosing with lokelma in ER * elevated again by AM labs (on 08/25) * hold potassium supplements * unclear why she is on this given her ESRD status... * dialysis should further correct * follow repeat K+ levels (3) Accidental fall from wheelchair: Qualifiers: Encounter type: initial encounter Qualified Code(s): W05.0XXA - Fall from non-moving wheelchair, initial encounter Code(s): W05.0XXA - Fall from non-moving wheelchair, initial encounter Status: Acute Assessment and Plan: * as noted by admission history * imaging/injuries/trauma noted: * head CT showed no acute intracranial abnormality * L-spine/T-spine CT showed an acute appearing endplate fracture involving T12 and L1 with loss of height of 10% with no subluxation noted * C-spine CT showed moderate cervical spondylosis but no acute osseous abnormality * bilateral humeral XR showed no acute fracture * left fibula/fibula without fracture * left foot XR showed no fracture but diffusely osteopenic * left ankle XR showed no fracture but diffusely osteopenic * Neurosurgery recommendations noted * no surgical intervention * TLSO brace attempted but unable to accommodate due to body habitus * pain control (4) Chronic respiratory failure: Code(s): J96.10 - Chronic respiratory failure, unspecified whether with hypoxia or hypercapnia Status: Acute Assessment and Plan: * multifactorial etiology: * COPD * asthma * SHELDON * OHS * CHF * on chronic supplemental oxygen (3L by NC at baseline) * on BiPAP at the assisted * continue supportive therapy (5) CHF (congestive heart failure): Qualifiers: Heart failure chronicity: unspecified Heart failure type: unspecified Qualified Code(s): I50.9 - Heart failure, unspecified Code(s): I50.9 - Heart failure, unspecified Status: Acute Assessment and Plan: * compensated * first noted in 2020 if not longer * Echo at that time with evidence of chronic diastolic dysfunction * recent Echo (March 2025) noted: * normal biventricular size and systolic function * valves are not well visualized in this study for overall appears to not have any significant valvular abnormalities in the visualized acoustic window * fluid status more a manifestation her ESRD status * fluid removal with dialysis to maintain euvolemia (6) Anemia: Qualifiers: Anemia type: due to chronic kidney disease Chronic kidney disease stage: on chronic dialysis Qualified Code(s): N18.6 - End stage renal disease; D63.1 - Anemia in chronic kidney disease; Z99.2 - Dependence on renal dialysis Code(s): D64.9 - Anemia, unspecified Status: Chronic Assessment and Plan: * due to ESRD * Epogen with dialysis * follow trend of H/H (7) DM2 (diabetes mellitus, type 2): Qualifiers: Chronic kidney disease stage: on chronic dialysis Diabetes mellitus complication detail: with chronic kidney disease Diabetes mellitus complication status: with kidney complications Diabetes mellitus jail insulin use: with jail use Qualified Code(s): E11.22 - Type 2 diabetes mellitus with diabetic chronic kidney disease; N18.6 - End stage renal disease; Z79.4 - ocean transportation intermediary (current) use of insulin; Z99.2 - Dependence on renal dialysis Code(s): E11.9 - Type 2 diabetes mellitus without complications Status: Chronic Assessment and Plan: * follow accu-cheks * glycemic control per hospitalist (8) Bipolar 1 disorder: Code(s): F31.9 - Bipolar disorder, unspecified Status: Chronic Assessment and Plan: * continue Seroquel Not opposed to discharge from renal perspective when otherwise medically stable. Will continue to follow. L Subjective Date/time seen: 08/25/25 13:30 Interval history: Follow-up for end stage renal disease on hemodialysis. Tolerating dialysis treatment at the time of my visit (seen on HD at 1:20pm); complaining of some back pain when seen but appears tolerable; no other acute complaints noted; no issues/events overnight or earlier this morning. Exam 2 Narrative: General: large female in NAD Heart: normal S1 and S2; no rub Lungs: clear anteriorly; diminished at bases Abdomen: obese but soft, nontender, nondistended, + bowel sounds Extremities: no cyanosis or clubbing; no edema Skin: warm and dry Objective Data Vital Signs Vital Signs: Vital Signs Temp Pulse Resp BP Pulse Ox O2 Del Method O2 Flow Rate 08/25/25 13:30 67 112/61 08/25/25 13:15 69 106/59 L 08/25/25 13:00 67 104/58 L 08/25/25 12:45 69 94/60 L 08/25/25 12:30 69 102/57 L 08/25/25 12:15 78 131/70 08/25/25 12:00 70 08/25/25 12:00 73 110/52 L 08/25/25 11:45 70 105/57 L 08/25/25 11:30 71 108/59 L 08/25/25 11:15 73 99/55 L 08/25/25 11:00 72 103/57 L 08/25/25 10:45 79 96/45 L 08/25/25 10:30 74 113/62 08/25/25 10:15 69 112/67 08/25/25 09:58 69 126/65 08/25/25 09:47 98.1 F 72 16 120/55 L 100 08/25/25 09:47 3 08/25/25 09:09 70 16 08/25/25 09:05 99 Nasal Cannula 3 08/25/25 09:04 67 16 08/25/25 08:00 98 Nasal Cannula 3 08/25/25 05:37 97.0 F L 70 16 121/52 L 100 08/25/25 02:10 87 16 08/25/25 02:07 Autopap 08/25/25 02:03 87 16 08/24/25 21:34 97.3 F L 74 20 100/74 100 08/24/25 20:48 89 16 08/24/25 20:43 96 Nasal Cannula 4 08/24/25 20:40 89 16 08/24/25 20:00 100 Nasal Cannula 3 08/24/25 16:40 96 Nasal Cannula 3 Intake/Output Intake/Output: Intake & Output 08/22/25 08/23/25 08/24/25 08/25/25 23:59 23:59 23:59 23:59 Intake Total 430 Output Total 3500 Balance -3070 Meds/Results Medications: Active Medications Generic Name Dose Route Start Last Admin Trade Name Freq PRN Reason Stop Dose Admin Acetaminophen 650 mg 08/24/25 15:58 Acetaminophen 325 Mg Tablet PO Q4H PRN Mild Pain (1-3) or Fever Hydrocodone Bitart/Acetaminophen 1 tab 08/24/25 14:03 08/25/25 08:55 Hydrocodone/Acetaminophen (*Crx) 5-325 Mg Tablet PO 1 tab Q4H PRN Administration Pain Rated 4-6 Hydrocodone Bitart/Acetaminophen 1 tab 08/25/25 10:24 08/25/25 16:04 Hydrocodone/Acetaminophen (*Crx) 10-325 Mg Tablet PO 1 tab Q6H PRN Administration Pain Rated 7-10 Albuterol 2.5 mg 08/24/25 20:00 08/25/25 13:52 Albuterol Sulfate Neb 2.5 Mg/3 Ml Inh INHALATION 2.5 mg Q6HRT MARLEEN Administration Albuterol/Ipratropium 3 ml 08/24/25 18:39 Ipratropium 0.5 Mg/Albuterol Sulfate 2.5 Mg (Base) Ampul.Neb 3 Ml INHALATION Q2HRT PRN Shortness Of Breath Artificial Tears 1 drop 08/24/25 18:39 Artificial Tears Ophth Soln 15 Ml Bottle EACH EYE QID PRN Dry Eye(s) Atorvastatin Calcium 40 mg 08/24/25 21:00 08/24/25 20:34 Atorvastatin 40 Mg Tablet PO 40 mg QHS MARLEEN Administration Bisacodyl 5 mg 08/24/25 15:58 Bisacodyl 5 Mg Tablet Ec PO DAILY PRN Constipation Cyanocobalamin 1,000 mcg 08/25/25 09:00 08/25/25 15:16 Cyanocobalamin 1,000 Mcg Tablet PO 1,000 mcg DAILY MARLEEN Administration Dextrose 12.5 gm 08/24/25 14:08 Dextrose 50% 25 Gm/50 Ml Syringe IV PUSH PRN PRN Hypoglycemia Protocol Diclofenac Sodium 1 applic 08/24/25 18:39 Diclofenac Sodium 1% 100 Gm Gel (*Bkc) TOPICAL Q6H PRN Pain Diphenhydramine HCl 50 mg 08/24/25 18:39 08/25/25 05:36 Diphenhydramine Hcl Cap 25 Mg Capsule PO 50 mg Q8H PRN Administration allergy symptoms Epoetin Ilya-epbx 10,000 units 08/25/25 18:00 08/25/25 13:14 Epoetin Ilya-Epbx 10,000 Units/Ml Vial IV PUSH 08/25/25 18:01 10,000 units ONCE ONE Administration Ergocalciferol 1,250 mcg 08/25/25 09:00 08/25/25 08:57 Ergocalciferol (Vitamin D2) 1,250 Mcg (50,000 Units) Capsule PO 1,250 mcg WEEKLY MARLEEN Administration Escitalopram Oxalate 20 mg 08/25/25 09:00 08/25/25 08:57 Escitalopram Oxalate 10 Mg Tablet PO 20 mg DAILY MARLEEN Administration Ferrous Sulfate 325 mg 08/25/25 09:00 08/25/25 08:58 Ferrous Sulfate 325 Mg Tablet PO 325 mg DAILY MARLEEN Administration Fluticasone Propionate 1 spray 08/25/25 09:00 08/25/25 08:58 Fluticasone Propionate 0.05% Na Spr 16 Gm Btl (*Bkc) NASAL 1 spray DAILY MARLEEN Administration Furosemide 40 mg 08/25/25 09:00 08/25/25 08:58 Furosemide 40 Mg Tablet PO 40 mg BID MARLEEN Administration Glucagon 1 mg 08/24/25 14:08 Glucagon For Inj 1 Mg Vial IM PRN PRN Hypoglycemia Protocol Glucose 15 gm 08/24/25 14:08 Glucose Oral Gel 15 Gm Of Glucse In 37.5 Gm Tube PO PRN PRN Hypoglycemia Protocol Guaifenesin 1,200 mg 08/24/25 21:00 08/25/25 08:57 Guaifenesin 12 Hr 600 Mg Tabcr PO 1,200 mg Q12HR MARLEEN Administration Heparin Sodium (Porcine) 5,000 units 08/25/25 21:00 Heparin Sodium 5,000 Units/Ml Vial SUB-Q Q12HR MARLEEN Hydrocortisone 1 applic 08/24/25 18:39 08/25/25 09:12 Hydrocortisone 1% 30 Gm Cream TOPICAL 1 applic BID PRN Administration Itching Hydroxyzine HCl 25 mg 08/25/25 09:00 08/25/25 08:58 Hydroxyzine Hcl 25 Mg Tablet PO 25 mg TID MARLEEN Administration Dextrose 1,000 mls @ 100 mls/hr 08/24/25 14:08 Dextrose 5% 1,000 Ml IVPB PRN PRN Hypoglycemia Protocol Albumin Human 50 mls @ 999 mls/hr 08/25/25 07:32 08/25/25 12:17 Albutein IVPB 09/24/25 07:31 999 mls/hr Q10M PRN Administration HYPOTENSION Insulin Aspart 3 - 6 units 08/25/25 08:00 08/25/25 08:42 Insulin Aspart (*Bkc) 100 Units/Ml SUB-Q Not Given TIDWM MARLEEN Protocol Insulin Glargine 12 units 08/25/25 21:00 Insulin Glargine (Lantus) 1,000 Units/10 Ml Vial SUB-Q HS MARLEEN Lactulose 20 gm 08/25/25 09:00 08/25/25 09:14 Lactulose 20 Gm/30 Ml Udc PO Not Given DAILY MARLEEN Levetiracetam 500 mg 08/24/25 21:00 08/25/25 08:57 Levetiracetam 500 Mg Tablet PO 500 mg Q12HR MARLEEN Administration Midodrine 5 mg 08/27/25 18:40 Midodrine Hcl 2.5 Mg Tablet PO MoWeFr MARLEEN Miscellaneous Information 0 each 08/24/25 00:01 Hydrocortisone Cream Add Site Of Use XX 09/23/25 00:00 CLARIFY MARLEEN Miscellaneous Information 0 each 08/24/25 00:01 Velphoro (Sucroferric Oxyhydroxide) Nonform Can Pt Hold Or Bring From Home? XX 09/23/25 00:00 CLARIFY MARLEEN Miscellaneous Information 1 each 08/24/25 19:03 Central Supply Item Tolnaftate (Sub For Nystatin) XX 08/25/25 19:02 PRN PRN Informational Miscellaneous Information 0 each 08/24/25 00:01 Robitussin Cough And Cold Nonform Hold While Here? XX 09/23/25 00:00 CLARIFY MARLEEN Montelukast Sodium 10 mg 08/25/25 09:00 08/25/25 08:58 Montelukast Sodium 10 Mg Tablet PO 10 mg DAILY MARLEEN Administration Non-Formulary Medication 15 ml 08/24/25 18:39 [id number] [Robitussin Cough And Cold Cf] PO Q6H PRN cough Non-Formulary Medication 1,000 mg 08/25/25 08:00 Sucroferric Oxyhydroxide [Velphoro] PO 09/24/25 07:59 TIDWM MARLEEN Ondansetron HCl 4 mg 08/24/25 18:39 Ondansetron Hcl Odt 4 Mg Tablet PO Q8H PRN Nausea And Vomiting Oxcarbazepine 150 mg 08/24/25 21:00 08/25/25 09:01 Oxcarbazepine 150 Mg Tablet PO 150 mg Q12HR MARLEEN Administration Polyethylene Glycol 17 gm 08/24/25 18:39 Polyethylene Glycol 3350 17 Gm Powd.Pack PO QAM PRN Constipation Prednisone 10 mg 08/25/25 09:00 08/25/25 08:57 Prednisone 10 Mg Tablet PO 10 mg DAILY MARLEEN Administration Quetiapine Fumarate 25 mg 08/24/25 21:00 08/24/25 20:34 Quetiapine Fumarate 25 Mg Tablet PO 25 mg HS MARLEEN Administration Trazodone HCl 50 mg 08/24/25 21:00 08/24/25 20:34 Trazodone Hcl 50 Mg Tablet PO 50 mg HS MARLEEN Administration Vitamin D 50 mcg 08/25/25 09:00 08/25/25 08:58 Cholecalciferol (Vitamin D3) 25 Mcg (1,000 Units) Tablet PO 50 mcg DAILY MARLEEN Administration Radiology Results: ITS Impressions Head CT 08/24/25 09:48 Impression: 1.No acute intracranial abnormality. Thoracic/Lumbar Spine CT 08/24/25 09:58 Impression: Acute appearing endplate fractures detailed above. Incidental findings above Humerus X-Ray 08/24/25 10:07 Impression: No acute fracture or malalignment. Tibia/Fibula X-Ray 08/24/25 10:32 IMPRESSION: No fracture lucency identified. Foot X-Ray 08/24/25 10:35 IMPRESSION: 1. No displaced fracture lucency. The bones are diffusely osteopenic. Ankle X-Ray 08/24/25 11:19 IMPRESSION: 1. No displaced fracture lucency. The bones are diffusely osteopenic. Cervical Spine CT 08/24/25 11:52 IMPRESSION: 1. Moderate cervical spondylosis. No acute osseous abnormality. Labs Labs: Laboratory Tests 08/25/25 05:13 08/25/25 05:13 Calcium 8.6 Phosphorus 8.0 H Magnesium 2.2 Total Bilirubin 0.6 AST 17 ALT 14 Alkaline Phosphatase 92 Total Protein 6.2 L Albumin 3.6
--- NOTE | 2025-08-25 15:06 | PC.NURSE ---
Pt. is back from dialysis
[2025-08-25] MEDS: CYANOCOBALAMIN 1,000 MCG TABLET 1000 MCG PO (15:16)
[2025-08-25] MEDS: HYDROcodone/acetaminophen (*CRX) 10-325 MG TABLET 1 TAB PO (16:04)
[2025-08-25] MEDS: INSULIN ASPART (*BKC) 100 UNITS/ML SUB-Q (18:16)
--- NOTE | 2025-08-25 18:53 | PC.NURSE ---
Salvage Supervisor reviewed Aida BERNAL's charting and agrees with it.
[2025-08-25] MEDS: IPRATROPIUM 0.5 MG/ALBUTEROL SULFATE 2.5 MG (BASE) AMPUL.NEB 3 ML INHALATION (20:04)
[2025-08-25] MEDS: ATORVASTATIN 40 MG TABLET PO (20:54)
[2025-08-25] MEDS: INSULIN GLARGINE (LANTUS) 1,000 UNITS/10 ML VIAL 12 UNITS SUB-Q (22:10)
[2025-08-25] MEDS: ACETAMINOPHEN 325 MG TABLET 650 MG PO (22:14)
[2025-08-26] VITALS (15 sets, daily range): BP systolic 108–140; BP diastolic 48–58; PULSE 67–87; RESP 16–20; TEMP 36.2–36.7; O2SAT 96–100
[2025-08-26] MEDS: HYDROcodone/acetaminophen (*CRX) 10-325 MG TABLET 1 TAB PO ×3 (00:09→13:05)
[2025-08-26] MEDS: ALBUTEROL SULFATE NEB 2.5 MG/3 ML INH INHALATION ×4 (02:12→20:21)
[2025-08-26] MEDS: MORPHINE SULFATE (*CRX) 4 MG/ML INJ 2 MG IV PUSH (03:48)
[2025-08-26 04:56] LABS: Hematocrit 28.0 % (37.0-47.0); Hemoglobin 8.5 g/dL (12.0-15.0); Immature Granulocyte Percent A 0.9 % (0-0.5); Lymphocytes Absolute Auto 1.24 K/mm3 (0.9-3.2); Mean Corpuscular HGB Conc 30.4 g/dl (32-36); Mean Corpuscular Hemoglobin 30.6 pg (26-34); Mean Corpuscular Volume 100.7 fl (80-100); Nucleated Red Blood Cells Absolute Auto 0.000 K/mm3 (0.0-0.012); Nucleated Red Blood Cells Perc 0.0 % (0.0-0.2); Platelet Count Result 142 k/mm3 (150-375); Red Blood Count 2.78 M/mm3 (4.2-5.4); White Blood Count 6.5 K/mm3 (4.5-10.0)
[2025-08-26 05:27] LABS: Albumin Level 3.9 g/dL (3.5-5.1); Anion Gap 8 mmol/L (4-12); Blood Urea Nitrogen 45 mg/dL (7-17); Calcium 8.8 mg/dL (8.4-10.2); Carbon Dioxide 30 mmol/L (22-30); Chloride 99 mmol/L (98-107); Estimated CRCL calculation 19 ml/min; Estimated Glomerular Filt Rate 10; Glucose 148 mg/dL (65-110); Potassium 4.4 mmol/L (3.4-5.0); Sodium 137 mmol/L (137-145)
[2025-08-26] MEDS: CHOLECALCIFEROL (VITAMIN D3) 25 MCG (1,000 UNITS) TABLET 50 MCG PO (08:18)
[2025-08-26] MEDS: MONTELUKAST SODIUM 10 MG TABLET PO (08:19)
[2025-08-26] MEDS: guaiFENesin 12 HR 600 MG TABCR 1200 MG PO ×2 (08:19→20:01)
[2025-08-26] MEDS: CYANOCOBALAMIN 1,000 MCG TABLET 1000 MCG PO (08:19)
[2025-08-26] MEDS: FLUTICASONE PROPIONATE 0.05% NA SPR 16 GM BTL (*BKC) 1 SPRAY NASAL (08:19)
[2025-08-26] MEDS: FUROSEMIDE 40 MG TABLET PO (08:19)
[2025-08-26] MEDS: FERROUS SULFATE 325 MG TABLET PO (08:19)
[2025-08-26] MEDS: ESCITALOPRAM OXALATE 10 MG TABLET 20 MG PO (08:19)
[2025-08-26] MEDS: LIDOCAINE 5% PATCH 1 PATCH TRANSDERM (08:20)
--- NOTE | 2025-08-26 11:45 | P.PNNP_ITS ---
Progress Note: A&P Assessment and Plan (1) End stage renal disease: Code(s): N18.6 - End stage renal disease Status: Acute Assessment and Plan: * HD tomorrow * resume outpatient schedule of Mondays, Wednesdays, and Fridays next week if remains hospitalized * on midodrine for dialysis purposes (maintain BP with fluid removal given known history of intradialytic hypotension) * follow electrolytes, volume status, and clearance (2) Hyperkalemia: Code(s): E87.5 - Hyperkalemia Status: Acute Assessment and Plan: * resolved * mild elevation by admission labs * s/p dosing with lokelma in ER * elevated again by AM labs (on 08/25) * hold potassium supplements * unclear why she is on this given her ESRD status... * would discontinue on discharge * dialysis should further correct * follow repeat K+ levels (3) Accidental fall from wheelchair: Qualifiers: Encounter type: initial encounter Qualified Code(s): W05.0XXA - Fall from non-moving wheelchair, initial encounter Code(s): W05.0XXA - Fall from non-moving wheelchair, initial encounter Status: Acute Assessment and Plan: * as noted by admission history * imaging/injuries/trauma noted: * head CT showed no acute intracranial abnormality * L-spine/T-spine CT showed an acute appearing endplate fracture involving T12 and L1 with loss of height of 10% with no subluxation noted * C-spine CT showed moderate cervical spondylosis but no acute osseous abnormality * bilateral humeral XR showed no acute fracture * left fibula/fibula without fracture * left foot XR showed no fracture but diffusely osteopenic * left ankle XR showed no fracture but diffusely osteopenic * Neurosurgery recommendations noted * no surgical intervention * TLSO brace attempted but unable to accommodate due to body habitus * pain control (4) Chronic respiratory failure: Code(s): J96.10 - Chronic respiratory failure, unspecified whether with hypoxia or hypercapnia Status: Acute Assessment and Plan: * multifactorial etiology: * COPD * asthma * SHELDON * OHS * CHF * on chronic supplemental oxygen (3L by NC at baseline) * on BiPAP at the alf * continue supportive therapy (5) CHF (congestive heart failure): Qualifiers: Heart failure chronicity: unspecified Heart failure type: unspecified Qualified Code(s): I50.9 - Heart failure, unspecified Code(s): I50.9 - Heart failure, unspecified Status: Acute Assessment and Plan: * compensated * first noted in 2020 if not longer * Echo at that time with evidence of chronic diastolic dysfunction * recent Echo (March 2025) noted: * normal biventricular size and systolic function * valves are not well visualized in this study for overall appears to not have any significant valvular abnormalities in the visualized acoustic window * fluid status more a manifestation her ESRD status * fluid removal with dialysis to maintain euvolemia (6) Anemia: Qualifiers: Anemia type: due to chronic kidney disease Chronic kidney disease stage: on chronic dialysis Qualified Code(s): N18.6 - End stage renal disease; D63.1 - Anemia in chronic kidney disease; Z99.2 - Dependence on renal dialysis Code(s): D64.9 - Anemia, unspecified Status: Chronic Assessment and Plan: * due to ESRD * Epogen with dialysis * follow trend of H/H (7) DM2 (diabetes mellitus, type 2): Qualifiers: Chronic kidney disease stage: on chronic dialysis Diabetes mellitus complication detail: with chronic kidney disease Diabetes mellitus complication status: with kidney complications Diabetes mellitus skilled nursing insulin use: with intermediate school 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 Will continue to follow. L Subjective Date/time seen: 08/26/25 11:45 Interval history: Follow-up for end stage renal disease on hemodialysis. Tolerated dialysis treatment yesterday without any issues or problems; pain control seems adequate at the time of my visit; no other acute issues/events overnight or earlier this morning. Exam 2 Narrative: General: large female in NAD Heart: normal S1 and S2; no rub Lungs: clear anteriorly; diminished at bases Abdomen: obese but soft, nontender, nondistended, + bowel sounds Extremities: no cyanosis or clubbing; no edema Skin: warm and intact Objective Data Vital Signs Vital Signs: Vital Signs Temp Pulse Resp BP Pulse Ox O2 Del Method O2 Flow Rate 08/26/25 11:00 83 08/26/25 08:30 97 Nasal Cannula 3 08/26/25 08:30 74 16 08/26/25 08:19 70 08/26/25 08:19 87 18 96 Nasal Cannula 3 08/26/25 08:18 71 16 08/26/25 04:50 98.0 F 73 16 118/56 L 99 08/26/25 04:00 72 08/26/25 02:12 74 96 Autopap 08/26/25 02:12 69 16 08/26/25 00:00 76 08/25/25 23:43 77 98 Autopap 08/25/25 22:03 97.3 F L 79 16 102/47 L 100 08/25/25 21:54 97.3 F L 75 16 102/47 L 100 08/25/25 20:11 70 16 08/25/25 20:07 98 Nasal Cannula 3 08/25/25 20:04 72 16 08/25/25 20:00 74 08/25/25 20:00 98 Nasal Cannula 3 08/25/25 16:00 75 Intake/Output Intake/Output: Intake & Output 08/23/25 08/24/25 08/25/25 08/26/25 23:59 23:59 23:59 23:59 Intake Total 670 1020 Output Total 3600 100 Balance -2930 920 Meds/Results Medications: Active Medications Generic Name Dose Route Start Last Admin Trade Name Freq PRN Reason Stop Dose Admin Acetaminophen 650 mg 08/24/25 15:58 08/25/25 22:14 Acetaminophen 325 Mg Tablet PO 650 mg Q4H PRN Administration Mild Pain (1-3) or Fever Hydrocodone Bitart/Acetaminophen 1 tab 08/24/25 14:03 08/25/25 08:55 Hydrocodone/Acetaminophen (*Crx) 5-325 Mg Tablet PO 1 tab Q4H PRN Administration Pain Rated 4-6 Hydrocodone Bitart/Acetaminophen 1 tab 08/26/25 06:45 08/26/25 13:05 Hydrocodone/Acetaminophen (*Crx) 10-325 Mg Tablet PO 1 tab Q4H PRN Administration Pain Rated 7-10 Albuterol 2.5 mg 08/24/25 20:00 08/26/25 15:18 Albuterol Sulfate Neb 2.5 Mg/3 Ml Inh INHALATION 2.5 mg Q6HRT MARLEEN Administration Albuterol/Ipratropium 3 ml 08/24/25 18:39 08/25/25 20:04 Ipratropium 0.5 Mg/Albuterol Sulfate 2.5 Mg (Base) Ampul.Neb 3 Ml INHALATION 3 ml Q2HRT PRN Administration Shortness Of Breath Artificial Tears 1 drop 08/24/25 18:39 Artificial Tears Ophth Soln 15 Ml Bottle EACH EYE QID PRN Dry Eye(s) Atorvastatin Calcium 40 mg 08/24/25 21:00 08/25/25 20:54 Atorvastatin 40 Mg Tablet PO 40 mg QHS MARLEEN Administration Bisacodyl 5 mg 08/24/25 15:58 Bisacodyl 5 Mg Tablet Ec PO DAILY PRN Constipation Cyanocobalamin 1,000 mcg 08/25/25 09:00 08/26/25 08:19 Cyanocobalamin 1,000 Mcg Tablet PO 1,000 mcg DAILY MARLEEN Administration Dextrose 12.5 gm 08/24/25 14:08 Dextrose 50% 25 Gm/50 Ml Syringe IV PUSH PRN PRN Hypoglycemia Protocol Diclofenac Sodium 1 applic 08/24/25 18:39 Diclofenac Sodium 1% 100 Gm Gel (*Bkc) TOPICAL Q6H PRN Pain Diphenhydramine HCl 50 mg 08/24/25 18:39 08/25/25 18:16 Diphenhydramine Hcl Cap 25 Mg Capsule PO 50 mg Q8H PRN Administration allergy symptoms Ergocalciferol 1,250 mcg 08/25/25 09:00 08/25/25 08:57 Ergocalciferol (Vitamin D2) 1,250 Mcg (50,000 Units) Capsule PO 1,250 mcg WEEKLY MARLEEN Administration Escitalopram Oxalate 20 mg 08/25/25 09:00 08/26/25 08:19 Escitalopram Oxalate 10 Mg Tablet PO 20 mg DAILY MARLEEN Administration Ferrous Sulfate 325 mg 08/25/25 09:00 08/26/25 08:19 Ferrous Sulfate 325 Mg Tablet PO 325 mg DAILY MARLEEN Administration Fluticasone Propionate 1 spray 08/25/25 09:00 08/26/25 08:19 Fluticasone Propionate 0.05% Na Spr 16 Gm Btl (*Bkc) NASAL 1 spray DAILY MARLEEN Administration Furosemide 40 mg 08/25/25 09:00 08/26/25 08:19 Furosemide 40 Mg Tablet PO 40 mg BID MARLEEN Administration Glucagon 1 mg 08/24/25 14:08 Glucagon For Inj 1 Mg Vial IM PRN PRN Hypoglycemia Protocol Glucose 15 gm 08/24/25 14:08 Glucose Oral Gel 15 Gm Of Glucse In 37.5 Gm Tube PO PRN PRN Hypoglycemia Protocol Guaifenesin 1,200 mg 08/24/25 21:00 08/26/25 08:19 Guaifenesin 12 Hr 600 Mg Tabcr PO 1,200 mg Q12HR MARLEEN Administration Heparin Sodium (Porcine) 5,000 units 08/25/25 21:00 08/26/25 08:19 Heparin Sodium 5,000 Units/Ml Vial SUB-Q 5,000 units Q12HR MARLEEN Administration Hydrocortisone 1 applic 08/24/25 18:39 08/25/25 09:12 Hydrocortisone 1% 30 Gm Cream TOPICAL 1 applic BID PRN Administration Itching Hydroxyzine HCl 25 mg 08/25/25 09:00 08/26/25 14:41 Hydroxyzine Hcl 25 Mg Tablet PO 25 mg TID MARLEEN Administration Dextrose 1,000 mls @ 100 mls/hr 08/24/25 14:08 Dextrose 5% 1,000 Ml IVPB PRN PRN Hypoglycemia Protocol Albumin Human 50 mls @ 999 mls/hr 08/25/25 07:32 08/25/25 12:17 Albutein IVPB 09/24/25 07:31 999 mls/hr Q10M PRN Administration HYPOTENSION Insulin Aspart 3 - 6 units 08/25/25 08:00 08/26/25 14:41 Insulin Aspart (*Bkc) 100 Units/Ml SUB-Q Not Given TIDWM MARLEEN Protocol Insulin Glargine 12 units 08/25/25 21:00 08/25/25 22:10 Insulin Glargine (Lantus) 1,000 Units/10 Ml Vial SUB-Q 12 units HS MARLEEN Administration Lactulose 20 gm 08/25/25 09:00 08/26/25 14:40 Lactulose 20 Gm/30 Ml Udc PO Not Given DAILY MARLEEN Levetiracetam 500 mg 08/24/25 21:00 08/26/25 08:18 Levetiracetam 500 Mg Tablet PO 500 mg Q12HR [facility] Administration Lidocaine 1 patch 08/26/25 09:00 08/26/25 08:20 Lidocaine 5% Patch TRANSDERM 1 patch DAILY MARLEEN Administration Methocarbamol 500 mg 08/26/25 06:42 08/26/25 13:05 Methocarbamol 500 Mg Tablet PO 500 mg QID PRN Administration Spasms Midodrine 5 mg 08/27/25 18:40 Midodrine Hcl 2.5 Mg Tablet PO MoWeFr [facility] Miscellaneous Information 0 each 08/24/25 00:01 Hydrocortisone Cream Add Site Of Use XX 09/23/25 00:00 CLARIFY [facility] Miscellaneous Information 0 each 08/24/25 00:01 Velphoro (Sucroferric Oxyhydroxide) Nonform Can Pt Hold Or Bring From Home? XX 09/23/25 00:00 CLARIFY [facility] Miscellaneous Information 0 each 08/24/25 00:01 Robitussin Cough And Cold Nonform Hold While Here? XX 09/23/25 00:00 CLARIFY [facility] Montelukast Sodium 10 mg 08/25/25 09:00 08/26/25 08:19 Montelukast Sodium 10 Mg Tablet PO 10 mg DAILY [facility] Administration Morphine Sulfate 2 mg 08/25/25 19:43 08/26/25 03:48 Morphine Sulfate (*Crx) 4 Mg/Ml Inj IV PUSH 2 mg Q4H PRN Administration Pain Rated 7-10 Non-Formulary Medication 15 ml 08/24/25 18:39 [id number] [Robitussin Cough And Cold Cf] PO Q6H PRN cough Non-Formulary Medication 1,000 mg 08/25/25 08:00 Sucroferric Oxyhydroxide [Velphoro] PO 09/24/25 07:59 TIDWM [facility] Ondansetron HCl 4 mg 08/24/25 18:39 Ondansetron Hcl Odt 4 Mg Tablet PO Q8H PRN Nausea And Vomiting Oxcarbazepine 150 mg 08/24/25 21:00 08/26/25 08:18 Oxcarbazepine 150 Mg Tablet PO 150 mg Q12HR MARLEEN Administration Polyethylene Glycol 17 gm 08/24/25 18:39 Polyethylene Glycol 3350 17 Gm Powd.Pack PO QAM PRN Constipation Prednisone 10 mg 08/25/25 09:00 08/26/25 08:19 Prednisone 10 Mg Tablet PO 10 mg DAILY MARLEEN Administration Quetiapine Fumarate 25 mg 08/24/25 21:00 08/25/25 20:54 Quetiapine Fumarate 25 Mg Tablet PO 25 mg HS MARLEEN Administration Trazodone HCl 50 mg 08/24/25 21:00 08/25/25 20:54 Trazodone Hcl 50 Mg Tablet PO 50 mg HS MARLEEN Administration Vitamin D 50 mcg 08/25/25 09:00 08/26/25 08:18 Cholecalciferol (Vitamin D3) 25 Mcg (1,000 Units) Tablet PO 50 mcg DAILY MARLEEN Administration Radiology Results: ITS Impressions Head CT 08/24/25 09:48 Impression: 1.No acute intracranial abnormality. Thoracic/Lumbar Spine CT 08/24/25 09:58 Impression: Acute appearing endplate fractures detailed above. Incidental findings above Humerus X-Ray 08/24/25 10:07 Impression: No acute fracture or malalignment. Tibia/Fibula X-Ray 08/24/25 10:32 IMPRESSION: No fracture lucency identified. Foot X-Ray 08/24/25 10:35 IMPRESSION: 1. No displaced fracture lucency. The bones are diffusely osteopenic. Ankle X-Ray 08/24/25 11:19 IMPRESSION: 1. No displaced fracture lucency. The bones are diffusely osteopenic. Cervical Spine CT 08/24/25 11:52 IMPRESSION: 1. Moderate cervical spondylosis. No acute osseous abnormality. Labs Labs: Laboratory Tests 08/26/25 04:43 08/26/25 04:43 Calcium 8.8 Phosphorus 5.5 H Albumin 3.9 Microbiology 08/24/25 16:37 Blood Blood Culture - Preliminary 08/24/25 16:37 Blood Blood Culture - Preliminary
--- NOTE | 2025-08-26 12:34 | P.DS_ITS ---
DS: Admitting Diagnosis Discharge Date 08/26/25 Admitting Diagnosis - ESRD on dialysis - hyperkalemia - fall - T1/L1 compression fracture - AFib - T2DM DS: Discharge Diagnosis Discharge Diagnosis (1) End-stage renal disease on hemodialysis: Code(s): N18.6 - End stage renal disease; Z99.2 - Dependence on renal dialysis Status: Acute (2) Hyperkalemia: Code(s): E87.5 - Hyperkalemia Status: Acute (3) Accidental fall from wheelchair: Qualifiers: Encounter type: initial encounter Qualified Code(s): W05.0XXA - Fall from non-moving wheelchair, initial encounter Code(s): W05.0XXA - Fall from non-moving wheelchair, initial encounter Status: Acute (4) T12 compression fracture: Qualifiers: Encounter type: initial encounter Qualified Code(s): S22.080A - Wedge compression fracture of T11-T12 vertebra, initial encounter for closed fracture Code(s): S22.080A - Wedge compression fracture of T11-T12 vertebra, initial encounter for closed fracture Status: Acute (5) Compression fracture of L1 vertebra: Qualifiers: Encounter type: initial encounter Qualified Code(s): S32.010A - Wedge compression fracture of first lumbar vertebra, initial encounter for closed fracture Code(s): S32.010A - Wedge compression fracture of first lumbar vertebra, initial encounter for closed fracture Status: Acute (6) Afib: Qualifiers: Atrial fibrillation type: paroxysmal Qualified Code(s): I48.0 - Paroxysmal atrial fibrillation Code(s): I48.91 - Unspecified atrial fibrillation Status: Chronic (7) DM2 (diabetes mellitus, type 2): Qualifiers: Chronic kidney disease stage: on chronic dialysis Diabetes mellitus complication detail: with chronic kidney disease Diabetes mellitus complication status: with kidney complications Diabetes mellitus superintendent container terminal insulin use: with halfway use Qualified Code(s): E11.22 - Type 2 diabetes mellitus with diabetic chronic kidney disease; N18.6 - End stage renal disease; Z79.4 - rn long term care (current) use of insulin; Z99.2 - Dependence on renal dialysis Code(s): E11.9 - Type 2 diabetes mellitus without complications Status: Chronic (8) Chronic respiratory failure: Qualifiers: Respiratory failure complication: hypoxia Qualified Code(s): J96.11 - Chronic respiratory failure with hypoxia Code(s): J96.10 - Chronic respiratory failure, unspecified whether with hypoxia or hypercapnia Status: Chronic (9) Obstructive sleep apnea treated with BiPAP: Code(s): G47.33 - Obstructive sleep apnea (adult) (pediatric) Status: Chronic (10) Chronic anemia: Code(s): D64.9 - Anemia, unspecified Status: Acute DS: Summary Hospital Course Reason for hospitalization: - ESRD on dialysis - hyperkalemia - fall - T1/L1 compression fracture - AFib - T2DM Hospital Course: Ms. Cathy Greene, a 65-year-old female with a complex medical history including end-stage renal disease (ESRD) on hemodialysis (MWF), chronic hypoxic respiratory failure on home oxygen, diastolic heart failure, COPD, SHELDON, obesity hypoventilation syndrome, type 2 diabetes mellitus, paroxysmal atrial fibrillation, seizure disorder, chronic anemia, and multiple other comorbidities, was admitted following a fall from her wheelchair during transport to dialysis.She reported immediate pain in her lower back and between her shoulder blades, but denied loss of consciousness, head trauma, or new neurological deficits. On arrival, she was hemodynamically stable and at her baseline oxygen requirement (3L NC). Initial labs were notable for chronic anemia (Hgb 9.6), mild hyperkalemia (K 5.3), and elevated BUN/Cr consistent with her ESRD. Imaging revealed acute appearing superior endplate compression fractures at T12 and L1 with approximately 10% loss of vertebral height, but no subluxation or other acute traumatic findings. No acute intracranial abnormality was seen on head CT, and other radiographs were negative for additional fractures but did show diffuse osteopenia. Neurosurgery was consulted and recommended conservative management with bracing for comfort; however, due to the patient?s body habitus, a TLSO brace could not be fitted. Plan to follow-up outpatient with neurosurgery in 3 weeks. Her pain was controlled with hydrocodone/acetaminophen, and she was gradually weaned off IV narcotics. Nephrology was consulted for missed dialysis and ongoing management of her ESRD. She received a dose of Lokelma for hyperkalemia and her potassium supplements were held. Arrangements were made for inpatient hemodialysis, which she tolerated without complication, and her outpatient dialysis schedule was to be resumed upon discharge. She remained at her functional baseline, wheelchair-bound and bedbound. She was discharged back to her nursing facility in stable condition. Status at Discharge Functional status at discharge: wheelchair bound Time Spent with Patient Time attestation: Total time spent providing and/or coordinating discharge services: Time spent: Greater than 30 minutes Exam Narrative: General: NAD, obese Eyes: EOMI ENT: neck supple Cardiovascular: Regular rate and rhythm Respiratory: Clear to auscultation, respirations even and unlabored on 3L Gastrointestinal: Soft, non tender Genitourinary: no suprapubic tenderness Musculoskeletal: No edema Skin: warm, dry Neuro: Alert. Psych: Mood appropriate DS: Data Data Completed and Pending Completed studies during hospitalization: ITS Impressions Head CT 08/24/25 09:48 Impression: 1.No acute intracranial abnormality. Thoracic/Lumbar Spine CT 08/24/25 09:58 Impression: Acute appearing endplate fractures detailed above. Incidental findings above Humerus X-Ray 08/24/25 10:06 Impression: No acute fracture or malalignment. Humerus X-Ray 08/24/25 10:07 Impression: No acute fracture or malalignment. Tibia/Fibula X-Ray 08/24/25 10:32 IMPRESSION: No fracture lucency identified. Foot X-Ray 08/24/25 10:35 IMPRESSION: 1. No displaced fracture lucency. The bones are diffusely osteopenic. Ankle X-Ray 08/24/25 11:19 IMPRESSION: 1. No displaced fracture lucency. The bones are diffusely osteopenic. Cervical Spine CT 08/24/25 11:52 IMPRESSION: 1. Moderate cervical spondylosis. No acute osseous abnormality. Labs on day of discharge: Labs from last 24 hours 08/26/25 08/26/25 08/26/25 11:48 08:22 04:43 WBC 6.5 RBC 2.78 L Hgb 8.5 L Hct 28.0 L MCV 100.7 H MCH 30.6 MCHC 30.4 L RDW 15.5 H Plt Count 142 L MPV 9.2 Immature Gran % (Auto) 0.9 H Neut % (Auto) 72.7 Lymph % (Auto) 19.0 [place] % (Auto) 7.2 Eos % (Auto) 0.0 Baso % (Auto) 0.2 Lymph # (Auto) 1.24 [place] # (Auto) 0.5 Eos # (Auto) 0.0 Baso # (Auto) 0.0 Abs Immat Gran (auto) 0.06 H Absolute Neuts (auto) 4.8 Absolute Nucleated RBC 0.000 Nucleated RBC % 0.0 Sodium 137 Potassium 4.4 Chloride 99 Carbon Dioxide 30 Anion Gap 8 BUN 45 H D Creatinine 4.43 H Estim Creat Clear Calc 19 Estimated GFR 10 L Glucose 148 H POC Capillary Glucose 161 H 146 H Calcium 8.8 Phosphorus 5.5 H Albumin 3.9 08/25/25 08/25/25 08/25/25 21:59 17:11 15:08 WBC RBC Hgb Hct MCV MCH MCHC RDW Plt Count MPV Immature Gran % (Auto) Neut % (Auto) Lymph % (Auto) [place] % (Auto) Eos % (Auto) Baso % (Auto) Lymph # (Auto) [place] # (Auto) Eos # (Auto) Baso # (Auto) Abs Immat Gran (auto) Absolute Neuts (auto) Absolute Nucleated RBC Nucleated RBC % Sodium Potassium Chloride Carbon Dioxide Anion Gap BUN Creatinine Estim Creat Clear Calc Estimated GFR Glucose POC Capillary Glucose 216 H 249 H 184 H Calcium Phosphorus Albumin Discharge Plan Discharge Attending physician on discharge: Alex Ford Consulting providers: Rosalio Calix; Serena Cardenas Discharging Clinician: Serena Cardenas Anticipated Discharge Date/Time: 08/26/25 12:15 Patient Disposition: NH [facility]/Asst Living Activity: unlimited Diet: as tolerated Discharge Instructions: Diagnosis: * Acute superior endplate fracture, T12 and L1 (now resolved), with 10% loss of vertebral height, no subluxation * Moderate loss of vertebral height throughout * Left renal cyst * End-stage renal disease on hemodialysis Activity: * Avoid heavy lifting, bending, or twisting at the waist. * Use caution with transfers; consider using assistive devices as needed. * Gradually increase activity as tolerated, but avoid activities that worsen back pain. Pain Management: * Continue [place] (hydrocodone/acetaminophen) as prescribed for pain. * Continue muscle relaxer as prescribed. * Do not exceed the prescribed dose. Notify your provider if pain is not controlled or if you experience side effects (e.g., excessive drowsiness, confusion, constipation, nausea). Spine Care: * Maintain good posture and use proper body mechanics. * Consider wearing a back brace if recommended by your provider. * Monitor for new or worsening back pain, numbness, tingling, or weakness in your legs, or loss of bowel/bladder control?seek immediate medical attention if these occur. Follow-Up: * Schedule outpatient follow-up with neurosurgery as directed for ongoing evaluation of your spine. * Your imaging showed that you have a cyst on your left kidney. Your bar and filler assembler should arrange for dedicated imaging of your left renal cyst. Please contact their office to confirm the appointment and instructions. Dialysis: * Resume your regular hemodialysis schedule: Wednesday, Wednesday, and Wednesday (MW). * Notify your dialysis team of your recent hospitalization and any new medications. When to Seek Immediate Medical Attention: * Sudden increase in back pain, new weakness, numbness, or tingling in your legs * Loss of bowel or bladder control * Signs of infection (fever, chills, redness or drainage from any wounds) * Severe headache, confusion, or difficulty breathing Additional Instructions: * Take all medications as prescribed. * Keep all follow-up appointments. * If you have any questions or concerns, contact your provider or the hospital. Patient Instructions: Safe Use of Anticoagulants (DC) Patient Language: Macedonian Stand Alone Forms: General Discharge Information Follow-up/Referrals: Rosalio Calix MD [Physician, Nephrology] Referral Note: follow-up for renal cyst Yadira Magana MD [Physician, Neurosurgery] - Call for Appointment Referral Note: 2-3 weeks for T12-L1 fracture Discharge Medications: Continued acetaminophen [Aminofen] 325 mg tablet 650 mg PO Q6H PRN (Reason: fever or pain) Airsupra 90-80 mcg/actuation HFA aerosol inhaler 2 inh inhalation .every 6 hours PRN (Reason: shortness of breath or wheezing) Patient Comments: Do not exceed 6 doses in 24 hours. baclofen 5 mg tablet 5 mg PO TID diphenhydramine HCl [Aler-Cap] 25 mg capsule 50 mg PO Q8H PRN (Reason: allergy symptoms) cholecalciferol (vitamin D3) 50 mcg (2,000 unit) capsule 2,000 unit PO DAILY diclofenac sodium [Arthritis Pain (diclofenac)] 1 % gel 1 ea topical Q6H PRN (Reason: pain) Rx Instructions: apply to single elbow, wrist or hand; for hand includes palm/fingers/back of hand ergocalciferol (vitamin D2) 1,250 mcg (50,000 unit) capsule 1,250 mcg PO WEEKLY Patient Comments: takes on Wednesday escitalopram oxalate 10 mg tablet 20 mg PO DAILY hydroxyzine HCl 25 mg tablet 25 mg PO TID ipratropium-albuterol 0.5 mg-3 mg(2.5 mg base)/3 mL solution for nebulization 3 ml inhalation Q2H PRN (Reason: shortness of breath) Artificial Tears(oz-asty-iaaj) 1-0.2-0.2 % Drops 1 drp EACH EYE QID PRN (Reason: Dry Eye(S)) Qty: 5 0RF guaifenesin [Mucus Relief ER] 600 mg Tablet Extended Release 12hr 1,200 mg PO Q12HR Qty: 30 0RF albuterol sulfate 2.5 mg /3 mL (0.083 %) solution for nebulization 2.5 mg inhalation Q6H ferrous sulfate 325 mg (65 mg iron) tablet,delayed release (DR/EC) 325 mg PO DAILY furosemide 40 mg tablet 40 mg PO BID hydrocortisone [Anti-Itch (HC)] 1 % cream 1 applic topical BID PRN (Reason: itching) insulin glargine-yfgn 100 unit/mL solution 15 unit SUBCUT QPM potassium chloride 20 mEq tablet,ER particles/crystals 20 meq PO DAILY Velphoro 500 mg tablet,chewable 1,000 mg PO TIDWM midodrine 10 mg Tablet 5 mg PO WITH DIALYSIS Rx Instructions: Patient takes with Dialysis on MWF atorvastatin 40 mg tablet 40 mg PO QHS levetiracetam 500 mg tablet 500 mg PO BID fluticasone propionate 50 mcg/actuation spray,suspension 1 spray INTRANASAL DAILY montelukast 10 mg tablet 10 mg PO DAILY insulin aspart U-100 [Novolog FlexPen U-100 Insulin] 100 unit/mL (3 mL) insulin pen 1 sliding scale dose SUBCUT .before meals Rx Instructions: Give subcutaneous before meals. -Blood sugar 150-199, give 1 unit. -Blood sugar 200-249, give 2 units. -Blood sugar 250-299, give 3 units. -Blood sugar 300-349, give 4 units. -Blood sugar 350-500, give 6 units. -If blood sugar is greater than 500, call MD. nystatin 100,000 unit/gram powder 1 applic TOPICAL BID Rx Instructions: Apply under skin folds. ondansetron HCl 4 mg tablet 4 mg PO Q8H PRN (Reason: nausea and vomiting) oxcarbazepine 150 mg tablet 150 mg PO BID quetiapine 25 mg tablet 25 mg PO HS trazodone 50 mg tablet 50 mg PO HS Robitussin Cough and Cold CF 2.5-5-50 mg/5 mL liquid 15 ml PO Q6H PRN (Reason: cough) cyanocobalamin (vitamin B-12) [Vitamin B-12] 1,000 mcg tablet 1,000 mcg PO DAILY lactulose [Enulose] 10 gram/15 mL solution 30 ml PO DAILY prednisone 10 mg tablet 10 mg PO DAILY polyethylene glycol 3350 [Miralax] 17 gram Powder In Packet 17 g PO QAM PRN (Reason: Constipation) Qty: 30 0RF Changed hydrocodone-acetaminophen 5-325 mg tablet 1 - 2 tablet PO Q8H PRN (Reason: pain) Qty: 12 0RF Rx Instructions: For pain 4-6 - take one tab For pain 7-10 - take two tabs Date of admission: 08/24/25 14:03 Primary Care Provider: Esvin Hope Admitting Provider: Alex Ford Attending physician on admission: Alex Ford Condition: Stable
[2025-08-26 14:04] LABS: SARS-CoV-2 RNA PCR Negative (Negative)
[2025-08-26] MEDS: INSULIN ASPART (*BKC) 100 UNITS/ML SUB-Q (17:24)
[2025-08-26] MEDS: diphenhydrAMINE HCl CAP 25 MG CAPSULE 50 MG PO (18:26)
[2025-08-26] MEDS: ATORVASTATIN 40 MG TABLET PO (20:01)
[2025-08-26] MEDS: INSULIN GLARGINE (LANTUS) 1,000 UNITS/10 ML VIAL 12 UNITS SUB-Q (20:03)
--- NOTE | 2025-08-26 21:15 | PC.NURSE ---
2044- [facility] arrived to transport pt to [facility]. 2100 scheduled meds given per MAR prior to arrival. Transferred from bed to stretcher with 4 assist. Remains on O2 @3LNC. VS stable 97.4 67 16 140/58 100%O2. Paperwork given to EMS, 2104-EMS left unit with Pt.
== END 2025-08-26 21:00 ==
LOC: ANHED 09:29 → ANH3MEDSUR 14:35 → ANH2MED 14:42
PROVIDERS: Internal Medicine Nephrology; Physician Assistant; Student in an Organized Health Care Education/Training Program; Admitting Provider Internal Medicine; Emergency Provider Physician Assistant; Visit Provider Internal Medicine
DX: S22.080A Wedge compression fracture of T11-T12 vertebra, initial encounter for closed fracture (principal); S32.010A Wedge compression fracture of first lumbar vertebra, initial encounter for closed fracture; W05.0XXA Fall from non-moving wheelchair, initial encounter; J96.11 Chronic respiratory failure with hypoxia; E87.5 Hyperkalemia; D64.9 Anemia, unspecified; I50.32 Chronic diastolic (congestive) heart failure; M85.89 Other specified disorders of bone density and structure, multiple sites; I48.0 Paroxysmal atrial fibrillation; E11.22 Type 2 diabetes mellitus with diabetic chronic kidney disease; N18.6 End stage renal disease; G40.909 Epilepsy, unspecified, not intractable, without status epilepticus; F41.8 Other specified anxiety disorders; F31.9 Bipolar disorder, unspecified; J44.9 Chronic obstructive pulmonary disease, unspecified; E03.9 Hypothyroidism, unspecified; M06.9 Rheumatoid arthritis, unspecified; M10.9 Gout, unspecified; E66.2 Morbid (severe) obesity with alveolar hypoventilation; Z68.43 Body mass index [BMI] 50.0-59.9, adult; Z74.09 Other reduced mobility; Z11.52 Encounter for screening for COVID-19; Z87.891 Personal history of nicotine dependence; Z99.2 Dependence on renal dialysis; Z99.81 Dependence on supplemental oxygen; Z99.89 Dependence on other enabling machines and devices; Z79.4 Long term (current) use of insulin; Z79.51 Long term (current) use of inhaled steroids; Z79.1 Long term (current) use of non-steroidal anti-inflammatories (NSAID); Z79.2 Long term (current) use of antibiotics; Z79.52 Long term (current) use of systemic steroids
CPT/HCPCS: 36415; 70450; 72125; 72128; 72131; 73060; 73590; 73600; 73620; 80053; 80069; 82948; 83735; 84100; 85025; 85610; 85730; 86706; 87040; 87340; 87635; 87641; 93005; 94640; 96365; 96372; 96375; 96376; 99285; A9270; G0257; G0378; J1644; J1815; J2270; J7030; J7512; P9047; Q5105

== ENCOUNTER 2025-09-02 10:05 | Emergency (ER) | payer MEDICARE, SELFPAY ==
--- OUTSIDE RECORDS SUMMARY | 2009-06-19 04:44 | XMS_ITS | Continuity of Care Document ---
Author Organization Carla Tariq MD [facility] Address [id number] [place] [address] MD Marciano [phone] Phone Care Team Providers Care Geological Engineer Name Role Phone Carla BLANTON, Umed Unavailable Unavailable Advance Directives Directive Yes / No Effective Date File Name No Information Encounters Encounter Description Practice Location Reason(s) For Visit Diagnoses Date Provider Providers Copied on Encounter Carla Tariq MD [facility], [id number] [facility] Marciano Re[place], [id number], [place] tel:[phone] [facility] No Information Carla BLANTON [facility]. [address] [facility] Marciano Reardon [place], [id number], [place]. tel:[phone] Family History Family Member Type Diagnosis Age At Onset No Information Payers Payer name Insurance type Covered alliance party ID Authoriza tion(s) Medicare MD REYES [id number] Social History Type Description Quantity Date Captured Comments Sex Female Smoking Status No Information Chief Complaint And Reason For Visit No Information Reason For Referral Reason For Referral No Information History Of Present Illness Encounter Date Complaint History Of Prese nt Illness No Information Functional Status Date Functional Assessmen t No Information Instructions Date Instruction Additional Infor mation No Information Assessments Type Assessment Date No Information Patient Care Teams Name Effective Dates (start - stop) Status Members No Information
[2025-09-02 10:11] VITALS: BP 120/67; PULSE 85; RESP 16; TEMP 36.8; O2SAT 98
--- NOTE | 2025-09-02 10:21 | ED.FALL ---
HPI - Fall General Chief Complaint: Fall Stated Complaint: fall on wednesday Source: patient Mode of arrival: EMS Limitations: no limitations History of Present Illness HPI Narrative: This is a 65-year-old female with history of AFib, CHF, ESRD on dialysis who presents the ED for back pain. Patient states that 9 days ago, she had a fall and injured her back. She was found to have 2 fractures in her spine. She was admitted to this facility for few days for pain control and was discharged back to her facility. Patient states that over the past week or so, she has had worsening of her pain. She does state that her medications have been helping but she does not think that they are lasting long enough. She has tried talking to the skilled nursing staff about this but unchanged her dosage. She gets her hydrocodone Q 8 hours and she believes the medicine last about 6 hours. Denies any new symptoms including changes in bowel/bladder control, numbness, tingling. Related Data Home Medications ?Medication ?Instructions ?Recorded ?Confirmed ?Last Taken ?Type atorvastatin 40 mg tablet 40 mg PO QHS 06/30/21 08/24/25 04/28/25 History fluticasone propionate 50 1 spray intranasal DAILY 06/30/21 08/24/25 04/29/25 History mcg/actuation nasal spray,suspension levetiracetam 500 mg tablet 500 mg PO BID 06/30/21 08/24/25 04/29/25 History acetaminophen 325 mg tablet 650 mg PO Q6H PRN fever or pain 01/13/25 08/24/25 04/21/25 11:30 History (Aminofen) albuterol 90 mcg-budesonide 80 2 inh inhalation .every 6 hours 01/13/25 08/24/25 04/28/25 History mcg/actuation HFA aerosol inhaler PRN shortness of breath or wheezing (Airsupra) baclofen 5 mg tablet 5 mg PO TID 01/13/25 08/24/25 04/29/25 History cholecalciferol (vitamin D3) 50 2,000 unit PO DAILY 01/13/25 08/24/25 04/29/25 History mcg (2,000 unit) capsule diclofenac sodium 1 % topical gel 1 ea topical Q6H PRN pain 01/13/25 08/24/25 Unknown History (Arthritis Pain (diclofenac)) diphenhydramine HCl 25 mg capsule 50 mg PO Q8H PRN allergy symptoms 01/13/25 08/24/25 04/18/25 13:40 History (Aler-Cap) ergocalciferol (vitamin D2) 1,250 1,250 mcg PO WEEKLY 01/13/25 08/24/25 04/28/25 History mcg (50,000 unit) capsule escitalopram oxalate 10 mg tablet 20 mg PO DAILY 01/13/25 08/24/25 04/28/25 History hydroxyzine HCl 25 mg tablet 25 mg PO TID 01/13/25 08/24/25 04/29/25 History ipratropium 0.5 mg-albuterol 3 mg 3 ml inhalation Q2H PRN shortness 01/13/25 08/24/25 03/27/25 22:40 History (2.5 mg base)/3 mL nebulization of breath soln insulin aspart U-100 100 unit/mL 1 sliding scale dose subcut 04/06/25 08/24/25 04/23/25 11:40 History (3 mL) subcutaneous pen (Novolog .before meals FlexPen U-100 Insulin aspart) montelukast 10 mg tablet 10 mg PO DAILY 04/06/25 08/24/25 04/29/25 History nystatin 100,000 unit/gram topical 1 applic topical BID 04/06/25 08/24/25 04/29/25 History powder ondansetron HCl 4 mg tablet 4 mg PO Q8H PRN nausea and vomiting 04/06/25 08/24/25 04/28/25 History oxcarbazepine 150 mg tablet 150 mg PO BID 04/06/25 08/24/25 04/28/25 History quetiapine 25 mg tablet 25 mg PO HS 04/06/25 08/24/25 04/28/25 History trazodone 50 mg tablet 50 mg PO HS 04/06/25 08/24/25 04/22/25 22:30 History cyanocobalamin (vitamin B-12) 1,000 mcg PO DAILY 04/07/25 08/24/25 04/23/25 07:00 History 1,000 mcg tablet (Vitamin B-12) [id number] 2.5 15 ml PO Q6H PRN cough 04/07/25 08/24/25 12/30/24 08:30 History mg-5 mg-50 mg/5 mL oral liquid (Robitussin Cough and Cold CF) lactulose 10 gram/15 mL oral 30 ml PO DAILY constipation 04/29/25 08/24/25 04/28/25 History solution (Enulose) prednisone 10 mg tablet 10 mg PO DAILY 04/29/25 08/24/25 04/29/25 History albuterol sulfate 2.5 mg/3 mL 2.5 mg inhalation Q6H 08/24/25 08/24/25 Unknown History (0.083 %) solution for nebulization ferrous sulfate 325 mg (65 mg 325 mg PO DAILY 08/24/25 08/24/25 Unknown History iron) tablet,delayed release furosemide 40 mg tablet 40 mg PO BID 08/24/25 08/24/25 Unknown History hydrocortisone 1 % topical cream 1 applic topical BID PRN itching 08/24/25 08/24/25 Unknown History (Anti-Itch (hydrocortisone)) insulin glargine-yfgn 100 unit/mL 15 unit subcut QPM 08/24/25 08/24/25 Unknown History subcutaneous solution midodrine 10 mg tablet 5 mg PO WITH DIALYSIS Hypotension 08/24/25 08/24/25 Unknown History with dialysis sucroferric oxyhydroxide 500 mg 1,000 mg PO TIDWM 08/24/25 08/24/25 Unknown History chewable tablet (Velphoro) Allergies Allergy/AdvReac Type Severity Reaction Status Date / Time Penicillins Allergy Severe Anaphylaxis Verified 09/02/25 10:21 Review of Systems Review of Systems: All systems reviewed & are unremarkable except as noted in HPI and below PMFSH Past Medical History Medical History Chronic anemia HTN (hypertension) Resolved, no longer on medications. Now on midodrine. Hypothyroidism DM2 (diabetes mellitus, type 2) Pulmonary embolism Occult blood in stools Seizure disorder Immobility Rheumatoid arthritis PAF (paroxysmal atrial fibrillation) Fibromyalgia Gout Obesity hypoventilation syndrome SHELDON (obstructive sleep apnea) Chronic respiratory failure with hypoxia COPD (chronic obstructive pulmonary disease) Diastolic heart failure Bipolar 1 disorder Anxiety and depression Left renal mass suspected malignancy Nephrolithiasis ESRD on dialysis COPD (chronic obstructive pulmonary disease) Surgical History Surgical History History of cystoscopy S/P ureteral reimplantation History of hysterectomy S/P hemodialysis catheter insertion Family History Family History Father Lung cancer Grandparent Colon cancer Mother Congestive heart failure Social History Social History Smoking packs per day: 1 Smoking cigarettes per day: 20.0 Years smoked: 30 Smoking pack-years: 30.00 Smoking status: Former smoker Tobacco type: cigarettes Second hand tobacco smoke exposure: Yes Alcohol intake: never Substance use: never Substance use type: does not use Last use: 06/13/21 Lack of Transportation: No Lack of Food: Never True Current Housing: I Have Housing Concerned About Future Housing: No Difficulty Paying Gas/Electric Bills: No Difficulty Paying for Meds: No Currently Unemployed: No Education: High School Diploma/GED Difficulty w/ Childcare or Family Care: No Gender identity (if verbalized by the patient): Female Sexual Orientation (if Verbalized by the Patient): Straight or Heterosexual Spiritual care concerns: No Exam Narrative: APPEARANCE: Mild distress, chronically ill-appearing, resting in bed EYES: EOMI HEENT: Normocephalic, atraumatic, OMM RESPIRATORY: No respiratory distress Clear to auscultation bilaterally with no rhonchi wheezing or rales. CARDIOVASCULAR: Regular rate and rhythm without murmurs rubs or gallops. ABDOMINAL: Morbidly obese. Soft, nontender, nondistended, no rebound or guarding MUSCULOSKELETAl: Moves all extremities. 1+ pitting edema to the lower extremities NEURO: Awake and alert. Following commands, speech normal, no focal deficits SKIN:: Warm, dry. No rashes lesions or abrasions PSYCHIATRIC: Normal affect/mood, Course Vital Signs Vital signs: Vital Signs Temperature 98.2 F 09/02/25 10:11 Pulse Rate 85 09/02/25 10:11 Respiratory Rate 16 09/02/25 10:11 Blood Pressure 120/67 09/02/25 10:11 Pulse Oximetry 98 09/02/25 10:11 Oxygen Delivery Room Air 09/02/25 10:11 Temperature 98.2 F 09/02/25 10:11 Pulse Rate 85 09/02/25 10:11 Respiratory Rate 16 09/02/25 10:11 Blood Pressure 120/67 12/21/25 10:11 Pulse Oximetry 98 09/02/25 10:11 Oxygen Delivery Room Air 09/02/25 10:11 MDM MDM Narrative Medical decision making narrative: 65-year-old female Presenting for low back pain. On initial evaluation patient was in no acute distress afebrile, hemodynamic stable. Differentials include but are not limited to: Fracture, sprain, strain, contusion Notable exam findings: Morbidly obese, tenderness over the midline lower thoracic and upper lumbar spine without step-offs or deformities Patient seen evaluated here 2 weeks ago for a fall with compression fractures found. On discussion with the patient she does seem to have good pain control at her facility but it is not for long enough as her dosage is only Q 8 hours. She was given oxycodone and Flexeril here with significant her symptoms. Patient was discharged back to facility with instructions on providers to evaluate potentially decreasing the duration between her dosages. Patient was agreeable to this plan. Given strict return precautions. Differential Diagnosis Differential Diagnosis: Fracture, sprain, strain, contusion Discharge Plan Discharge Clinical Impression: Back pain Qualifiers: Back pain location: low back pain Chronicity: acute Back pain laterality: midline Sciatica presence: without sciatica Qualified Code(s): M54.50 - Low back pain, unspecified Spinal fracture Qualifiers: Encounter type: initial encounter Fracture of vertebra location: lumbar Lumbar vertebra fracture level: unspecified lumbar vertebra Fracture type: closed Fracture morphology: wedge compression Qualified Code(s): S32.000A - Wedge compression fracture of unspecified lumbar vertebra, initial encounter for closed fracture Patient Disposition: Home Condition: Stable Instructions: Antibiotic Form Additional Instructions: Take hydrocodone and baclofen as prescribed. Follow up PCP in the next week for re-evaluation. Patient Language: Danish Prescriptions: No Action acetaminophen [Aminofen] 325 mg tablet 650 mg PO Q6H PRN (Reason: fever or pain) Airsupra 90-80 mcg/actuation HFA aerosol inhaler 2 inh inhalation .every 6 hours PRN (Reason: shortness of breath or wheezing) Patient Comments: Do not exceed 6 doses in 24 hours. baclofen 5 mg tablet 5 mg PO TID diphenhydramine HCl [Aler-Cap] 25 mg capsule 50 mg PO Q8H PRN (Reason: allergy symptoms) cholecalciferol (vitamin D3) 50 mcg (2,000 unit) capsule 2,000 unit PO DAILY diclofenac sodium [Arthritis Pain (diclofenac)] 1 % gel 1 ea topical Q6H PRN (Reason: pain) Rx Instructions: apply to single elbow, wrist or hand; for hand includes palm/fingers/back of hand ergocalciferol (vitamin D2) 1,250 mcg (50,000 unit) capsule 1,250 mcg PO WEEKLY Patient Comments: takes on Wednesday escitalopram oxalate 10 mg tablet 20 mg PO DAILY hydroxyzine HCl 25 mg tablet 25 mg PO TID ipratropium-albuterol 0.5 mg-3 mg(2.5 mg base)/3 mL solution for nebulization 3 ml inhalation Q2H PRN (Reason: shortness of breath) Artificial Tears(rv-mahn-eixm) 1-0.2-0.2 % Drops 1 drp EACH EYE QID PRN (Reason: Dry Eye(S)) Qty: 5 0RF guaifenesin [Mucus Relief ER] 600 mg Tablet Extended Release 12hr 1,200 mg PO Q12HR Qty: 30 0RF albuterol sulfate 2.5 mg /3 mL (0.083 %) solution for nebulization 2.5 mg inhalation Q6H ferrous sulfate 325 mg (65 mg iron) tablet,delayed release (DR/EC) 325 mg PO DAILY furosemide 40 mg tablet 40 mg PO BID hydrocortisone [Anti-Itch (HC)] 1 % cream 1 applic topical BID PRN (Reason: itching) insulin glargine-yfgn 100 unit/mL solution 15 unit SUBCUT QPM Velphoro 500 mg tablet,chewable 1,000 mg PO TIDWM midodrine 10 mg Tablet 5 mg PO WITH DIALYSIS Rx Instructions: Patient takes with Dialysis on MWF hydrocodone-acetaminophen 5-325 mg tablet 1 - 2 tablet PO Q8H PRN (Reason: pain) Qty: 12 0RF Rx Instructions: For pain 4-6 - take one tab For pain 7-10 - take two tabs atorvastatin 40 mg tablet 40 mg PO QHS levetiracetam 500 mg tablet 500 mg PO BID fluticasone propionate 50 mcg/actuation spray,suspension 1 spray INTRANASAL DAILY montelukast 10 mg tablet 10 mg PO DAILY insulin aspart U-100 [Novolog FlexPen U-100 Insulin] 100 unit/mL (3 mL) insulin pen 1 sliding scale dose SUBCUT .before meals Rx Instructions: Give subcutaneous before meals. -Blood sugar 150-199, give 1 unit. -Blood sugar 200-249, give 2 units. -Blood sugar 250-299, give 3 units. -Blood sugar 300-349, give 4 units. -Blood sugar 350-500, give 6 units. -If blood sugar is greater than 500, call MD. nystatin 100,000 unit/gram powder 1 applic TOPICAL BID Rx Instructions: Apply under skin folds. ondansetron HCl 4 mg tablet 4 mg PO Q8H PRN (Reason: nausea and vomiting) oxcarbazepine 150 mg tablet 150 mg PO BID quetiapine 25 mg tablet 25 mg PO HS trazodone 50 mg tablet 50 mg PO HS Robitussin Cough and Cold CF 2.5-5-50 mg/5 mL liquid 15 ml PO Q6H PRN (Reason: cough) cyanocobalamin (vitamin B-12) [Vitamin B-12] 1,000 mcg tablet 1,000 mcg PO DAILY lactulose [Enulose] 10 gram/15 mL solution 30 ml PO DAILY prednisone 10 mg tablet 10 mg PO DAILY polyethylene glycol 3350 [Miralax] 17 gram Powder In Packet 17 g PO QAM PRN (Reason: Constipation) Qty: 30 0RF Follow-up/Referrals: Esvin Hope [Other] Stand Alone Forms: [facility] Discharge
--- OUTSIDE RECORDS SUMMARY | 2025-09-02 10:24 | XMS_ITS ---
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 Name Role Phone OCTAVIO Mcguire Attending Unavailable Immunization Immunization Date Status Additional Notes Code Code System pneumococcal polysaccharide PPV23 12/20/2016 Completed 33 CVX pneumococcal polysaccharide PPV23 08/15/2019 Completed 33 CVX Tdap 04/30/2021 Completed 115 CVX Influenza, split virus, quadrivalent, PF 12/10/2018 Completed 150 CVX Influenza, split virus, quadrivalent, PF 08/10/2019 Completed 150 CVX Influenza, split virus, quadrivalent, PF 07/03/2021 Completed 150 CVX Influenza, split virus, quadrivalent, PF 07/20/2017 Completed 150 CVX COVID-19 vaccine, vector-nr, rS-Ad26, PF, 0.5 mL 03/21/2021 Completed 212 CVX COVID-19, mRNA, LNP-S, PF, 3 0 mcg/0.3 mL dose, flo-sucrose 12/25/2021 Completed 217 CVX COVID-19, mRNA, LNP-S, PF, 5 0 mcg/0.5 mL 08/27/2023 Completed 312 CVX Results COMPREHENSIVE METABOLIC PANE L - Collect Date/Time: 03/08/2024 08:25 [facility] ID: [id number] [address] [place] [address], [id number] LOINC: 77576-2 Test Value Unit Reference Range Code Code System Flag FASTING YES BUN 46 mg/dL L=7 H=20 3094-0 LOINC H CREATININE 2.50 mg/dL L=0.52 H=1.04 2160-0 LOINC H GLUCOSE 134 mg/dL L=74 H=106 2345-7 LOINC H SODIUM 139 mmol/L L=132 H=144 2951-2 LOINC POTASSIUM 3.3 mmol/L L=3.5 H=5.1 2823-3 LOINC L CHLORIDE 104 mmol/L L=98 H=107 2075-0 LOINC CO2 29.0 mmol/L L=22.0 H=30.0 2028-9 LOINC ANION GAP 9 L=10 H=20 08561-9 LOINC L OSMOLALITY 302 mOs/kG L=280 H=296 03331-2 LOINC H BUN/CREAT 18.4 3097-3 LOINC CALCIUM 8.7 mg/dL L=8.3 H=10.5 20280-3 LOINC AST 12 U/L L=15 H=46 1920-8 LOINC L ALT 9 U/L L=9 H=72 1742-6 LOINC ALKALINE PHOS 83 U/L L=38 H=126 6768-6 LOINC TOTAL BILI 0.2 mg/dL L=0.2 H=1.3 1975-2 LOINC ALBUMIN 3.4 G/dL L=3.5 H=5.0 1751-7 LOINC L TOTAL PROTEIN 6.3 g/L L=6.3 H=8.2 2885-2 LOINC A/G RATIO 1.2 91502-2 LOINC AGE 63 13776-8 LOINC eGFR NON-AFR 21 ml/min eGFR AFR AMER 25 ml/min CBC W/ DIFF - Collect Date/T pili: 03/08/2024 08:25 [facility] ID: [id number] [address] [place], [place], [phone] LOINC: 95162-1 Test Value Unit Reference Range Code Code System Flag WBC 5.7 10^3uL L=4.8 H=10.8 RBC 3.07 10^6uL L=4.20 H=5.40 L HEMOGLOBIN 8.0 g/dL L=12.0 H=16.0 718-7 LOINC CALLED TO: NATTY CABRAL AT: 1151 03/08/24 BY: SDK HEMATOCRIT 27.4 VOL% L=37.0 H=47.0 4544-3 LOINC L MCV 89.3 fL L=81.0 H=99.0 MCH 26.1 pg L=27.0 H=32.0 L MCHC 29.2 g/dL L=32.0 H=36.0 L PLATELETS 146 10^3uL L=100 H=400 40844-7 LOINC RDW 16.5 % L=11.7 H=15.5 H %GRAN 83.7 % L=40.0 H=70.0 87832-3 LOINC H %LYMPH 11.6 % L=20.0 H=45.0 736-9 LOINC L %MONO 4.2 % L=2.0 H=10.0 34357-7 LOINC %EOS 0.0 % L=0.0 H=6.0 713-8 LOINC %BASO 0.0 % L=0.0 H=3.0 706-2 LOINC #NEUT 4.8 10^3uL L=1.9 H=7.6 03112-0 LOINC #LYMPH 0.7 10^3uL L=0.9 H=4.9 03327-4 LOINC L #MONO 0.2 10^3uL L=0.1 H=0.9 39801-8 LOINC #EOS 0.0 10^3uL L=0.0 H=0.6 712-0 LOINC #BASO 0.00 10^3uL L=0.00 H=0.10 73108-0 LOINC #IM GRANS 0.0 10^3uL L=0.0 H=7.0 60298-7 LOINC %IM GRANS 0.5 % L=0.0 H=5.0 10770-2 LOINC %NRB 0.0 L=0.0 H=0.2 39593-8 LOINC #NRB 0.000 L=0.000 H=0.012 01323-6 LOINC MANUAL DIFF NOT INDICATED RBC MORPH NOT INDICATED Social History Type Status Start Date End Date Code Code Syst em Smoking History Unknown if ever smoked [address] Sex Female Medications Medication Start Date End Date Route Frequency Dose Code Code System Medication Instructions Home Meds OXcarbazepine 150MG Oral Tablet 10/28/2022 Unknown ORAL TWICE A DAY 150 MILLIGRAMS 275156 RxNorm TAKE 150 MILLIGRAMS ORAL TWICE A DAY oxyCODONE HCl 5MG Oral Tablet 10/28/2022 Unknown ORAL NEEDED EVERY 6 HOURS 5 MILLIGRAMS [id number] RxNorm TAKE 5 MILLIGRAMS ORAL NEEDED EVERY 6 HOURS Acetaminophen 325MG Oral Tablet 12/04/2022 Unknown ORAL NEEDED EVERY 4 HOURS 650 MILLIGRAMS 232373 RxNorm TAKE 650 MILLIGRAMS ORAL NEEDED EVERY 4 HOURS Atorvastatin Calcium 40MG Oral Tablet 12/04/2022 Unknown ORAL AT BEDTIME 40 MILLIGRAMS 772299 RxNorm TAKE 40 MILLIGRAMS ORAL AT BEDTIME Bisacodyl 10MG Rectal Suppository 12/04/2022 Unknown RECTAL NEEDED DAILY 10 MILLIGRAMS 645981 RxNorm INSERT 10 MILLIGRAMS RECTAL NEEDED DAILY Budesonide 0.5MG/2ML Inhalation Suspension 12/04/2022 Unknown NEBULIZ ER RESP DAILY 0.5 MILLIGRAMS 789808 RxNorm 0.5 MILLIGRAMS NEBULIZER RESP DAILY Cetirizine HCl 10MG Oral Tablet 12/04/2022 Unknown ORAL ONCE A DAY 10 MILLIGRAMS 1090824 RxNorm TAKE 10 MILLIGRAMS ORAL ONCE A DAY Ferrous Sulfate 325MG Oral Tablet 12/04/2022 Unknown ORAL EVERY OTHER DAY 325 MILLIGRAMS 488238 RxNorm TAKE 325 MILLIGRAMS ORAL EVERY OTHER DAY Furosemide 40MG Oral Tablet 12/04/2022 Unknown ORAL ONCE A DAY 40 MILLIGRAMS 725258 RxNorm TAKE 40 MILLIGRAMS ORAL ONCE A DAY Gabapentin 300MG Oral Capsule 12/04/2022 Unknown ORAL THREE TIMES A DAY 300 MILLIGRAMS 770876 RxNorm TAKE 300 MILLIGRAMS ORAL THREE TIMES A DAY Ipratropium [place] rol Sulfate 0.5MG/3ML-3MG/ 3ML Inhalation Solution 12/04/2022 Unknown NEBULIZ ER NEEDED EVERY 2 HOURS 1 unit(s) [id number] RxNorm 1 EACH NEBULIZER NEEDED EVERY 2 HOURS Melatonin 5 MG Oral Tablet 12/04/2022 Unknown ORAL AT BEDTIME 5 MG RxNorm TAKE 5 MG ORAL AT BEDTIME Milk Of Magnesia 2400MG/30ML Oral Suspension 12/04/2022 Unknown ORAL PRN Q72H 30 mL 631126 RxNorm TAKE 30 m L ORAL PRN Q72H Oxymetazoline HCl 0.05% Nasal [place] 12/04/2022 Unknown NOSTRIL BOTH NEEDED EVERY 12 HOURS 2 unit(s) 3157223 RxNorm SPRAY IN 2 EACH NOSTRIL BOTH NEEDED EVERY 12 HOURS Polyethylene Glycol 3350 17 GM/1 Packet Oral Packet 12/04/2022 Unknown ORAL ONCE A DAY 17 GRAM 266863 RxNorm TAKE 17 GRAM ORAL ONCE A DAY Sennosides 8.6MG Oral Tablet 12/04/2022 Unknown ORAL TWICE A DAY 17.2 MILLIGRAMS 208957 RxNorm TAKE 17.2 MILLIGRAMS ORAL TWICE A DAY Sertraline HCl 100MG Oral Tablet 12/04/2022 Unknown ORAL ONCE A DAY 200 MILLIGRAMS 710991 RxNorm TAKE 200 MILLIGRAMS ORAL ONCE A DAY Sodium Chloride Nasal Mist 0.65% Nasal [place] 12/04/2022 Unknown NOSTRIL BOTH TWICE A DAY 1 unit(s) RxNorm SPRAY IN 1 EACH NOSTRIL BOTH TWICE A DAY Xarelto 20MG Oral Tablet 12/04/2022 Unknown ORAL ONCE A DAY 20 MILLIGRAMS 9457744 RxNorm TAKE 20 MILLIGRAMS ORAL ONCE A DAY budesonide-for moterol fumarate 80MCG-4.5MCG/1 Actuat Inhalation Aerosol Liquid 12/04/2022 Unknown INHALAT ION TWICE A DAY 2 unit(s) 4700121 RxNorm 2 EACH INHALATION TWICE A DAY levETIRAcetam 500MG Oral Tablet 12/04/2022 Unknown ORAL TWICE A DAY 500 MILLIGRAMS 459110 RxNorm TAKE 500 MILLIGRAMS ORAL TWICE A DAY Protonix 40 MG Oral Tablet, Delayed Release 12/04/2022 Unknown BY MOUTH 1 TABLET 821175 RxNorm TAKE 1 TABLET BY MOUTH Assessment You had the following problems:METABOLIC ENCEPHALOPATHYMETABOLIC ALKALOSISCOPD WITH EXACERBATIONBACTEREMIA CAUSED BY GRAM-POSITIVE BACTERIAUTIDEHYDRATIONHYPOMAGNESEMIAEPILEPSY Hospital Discharge Instructions Should you have any questions prior to discharge, please contact a member of your healthcare team. If you have left the hospital and have any questions, please contact your primary care physician. Reason For Referral No Data Found Problems Problem Start Date Resolved Date Status Code Code System METABOLIC ENCEPHALOPATHY active 67010 000 SNOMED-CT METABOLIC ALKALOSIS active 3022826 SNOMED-CT COPD WITH EXACERBATION active 8039998 07 SNOMED-CT BACTEREMIA CAUSED BY GRAM-POSITIVE BACTERIA active 250839203089 SNOME D-CT UTI active 41055143 SNOMED-CT DEHYDRATION active 27081259 SNOMED-C T HYPOMAGNESEMIA active 447439163 SNOME D-CT EPILEPSY active 76922652 SNOMED-CT Allergies and Adverse Reactions Allergy Substance Reaction Severity Start Date Concern Status Co de Code System PENICILLIN Active Plan of Treatment Song Follow Up Visit 09/22/2023 Encounters Encounter Diagnosis Start Date Code Code Sys tem Chronic kidney disease, stage 3 unspecified 03/08/2024 SNOMED-CT Personal Care Team Section Performer Name Performer Role Active Date Inactive MICHEAL Krishnamurthy PCP - Primary care physician 2022-09-24 2023-06-03 JACINTA CUNNINGHAM PCP - Primary care physician 2023-07-14
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
--- OUTSIDE RECORDS SUMMARY | 2025-09-02 10:25 | XMS_ITS ---
Author Organization Unknown Address [address] [place] [phone] Phone Care Team Providers Care Circulation Crew Leader Name Role Phone CASSIUS GODWIN Attending Unavailable OCTAVIO Mcguire Primary Unavailable Immunization Immunization Date Status Additional Notes [...] mcg/0.5 mL 08/27/2023 Completed 312 CVX Results ARTERIAL BLOOD GAS - Collect Date/Time: 08/21/2023 18:07 [facility] ID: [id number] [address] [place] [address], [phone] LOINC: 02721-2 Test Value Unit Reference Range Code Code System Flag pH 7.42 L=7.35 H=7.45 2753-2 LOINC PO2 65.0 mmHg L=80.0 H=90.0 75130-5 LOINC L PCO2 65.0 mmHg L=35.0 H=45.0 28069-5 [facility] CALLED TO: CLARICE WYATT AT: 1819 BY: NAEL BE 15.8 mmol/L L=0.0 H=2.0 85749-1 LOINC H BEecf 17.0 mmol/L L=0.0 H=2.0 14255-0 LOINC H HCO3 41.7 mmol/L L=22.0 H=26.0 99341-0 LOINC H A-aDO2 61 mmHg L=7 H=13 60583-3 LOINC H O2Hb 90.0 % L=85.0 H=99.0 72354-0 LOINC sO2m 93.0 % L=85.0 H=98[place]0 [place] [address]-2 [facility] PUNCTURE SITE RIGHT RADIAL FIO2 28 % CBC W/ DIFF - Collect Date/T pili: 08/21/2023 17:52 [facility] ID: [id number] [address] [place], [place], [phone] [facility]: [address]-0 Test Value Unit Reference Range Code Code System Flag WBC 6.0 10^3uL L=4.8 H=10.8 RBC 3.39 10^6uL L=4.20 H=5.40 L HEMOGLOBIN 9.3 g/dL L=12.0 H=16.0 718-7 LOINC L HEMATOCRIT 30.7 VOL% L=37.0 H=47.0 4544-3 LOINC L MCV 90.6 fL L=81.0 H=99.0 MCH 27.4 pg L=27.0 H=32.0 MCHC 30.3 g/dL L=32.0 H=36.0 L PLATELETS 122 10^3uL L=100 H=400 54519-0 LOINC RDW 13.7 % L=11.7 H=15.5 %GRAN 85.1 % L=40.0 H=70.0 47846-3 LOINC H %LYMPH 9.1 % L=20.0 H=45.0 736-9 LOINC L %MONO 5.1 % L=2.0 H=10.0 60286-6 LOINC %EOS 0.0 % L=0.0 H=6.0 713-8 LOINC %BASO 0.2 % L=0.0 H=3.0 706-2 LOINC #NEUT 5.1 10^3uL L=1.9 H=7.6 75530-6 LOINC #LYMPH 0.6 10^3uL L=0.9 H=4.9 79840-5 LOINC L #MONO 0.3 10^3uL L=0.1 H=0.9 74218-6 LOINC #EOS 0.0 10^3uL L=0.0 H=0.6 712-0 LOINC #BASO 0.01 10^3uL L=0.00 H=0.10 65815-6 LOINC #IM GRANS 0.0 10^3uL L=0.0 H=7.0 98400-6 LOINC %IM GRANS 0.5 % L=0.0 H=5.0 12485-7 LOINC %NRB 0.0 L=0.0 H=0.2 33857-2 LOINC #NRB 0.000 L=0.000 H=0.012 77038-2 LOINC MANUAL DIFF NOT INDICATED RBC MORPH NOT INDICATED COMPREHENSIVE METABOLIC PANE L - Collect Date/Time: 08/21/2023 17:52 [facility] ID: [id number] [address] [place], [place], [phone] LOINC: 40209-9 Test Value Unit Reference Range Code Code System Flag FASTING UNKNOWN BUN 36 mg/dL L=7 H=20 3094-0 LOINC H CREATININE 2.50 mg/dL L=0.52 H=1.04 2160-0 LOINC H GLUCOSE 184 mg/dL L=74 H=106 2345-7 LOINC H SODIUM 140 mmol/L L=132 H=144 2951-2 LOINC POTASSIUM 3.9 mmol/L L=3.5 H=5.1 2823-3 LOINC CHLORIDE 92 mmol/L L=98 H=107 2075-0 LOINC L CO2 37.0 mmol/L L=22.0 H=30.0 8-9 LOINC H ANION GAP 15 L=10 H=20 80707-9 LOINC OSMOLALITY 303 mOs/kG L=280 H=296 24786-5 LOINC H BUN/CREAT 14.4 3097-3 LOINC CALCIUM 9.2 mg/dL L=8.3 H=10.5 96154-2 LOINC AST 19 U/L L=15 H=46 1920-8 LOINC ALT 18 U/L L=9 H=72 1742-6 LOINC ALKALINE PHOS 86 U/L L=38 H=126 6768-6 LOINC TOTAL BILI 0.5 mg/dL L=0.2 H=1.3 1975-2 LOINC ALBUMIN 3.8 G/dL L=3.5 H=5.0 1751-7 LOINC TOTAL PROTEIN 7.2 g/L L=6.3 H=8.2 2885-2 LOINC A/G RATIO 1.1 13236-4 LOINC AGE 63 63675-3 LOINC eGFR NON-AFR 21 ml/min eGFR AFR AMER 25 ml/min TROPONIN LEVEL - Collect Pepe e/Time: 08/21/2023 17:52 [facility] ID: [id number] [address] [place] [address], [phone] LOINC: 81531-5 Test Value Unit Reference Range Code Code System Flag TROPONIN 0.054 ng/mL L=0.000 H=0.033 67688-2 LOINC H PRO BNP - Collect Date/Time: 08/21/2023 17:52 [facility] ID: [id number] [address] [place] [address], [phone] LOINC: 65833-4 Test Value Unit Reference Range Code Code System Flag Pro BNP2 1930 pg/mL L=0 H=900 03856-3 LOINC H CHEST 1V - Completed: 2022 18:21 LOINC: EXAM DESCRIPTION: CHEST 1V REASON FOR STUDY: onset today, SOB hx of COPD Duration: . COMPARISON: 07/14/2023. FINDINGS: One radiographic view of the chest acquired. The exam is substantially limited by patient's body habitus, portable technique, and suboptimal patient positioning. The exam is of very limited diagnostic value. IMPRESSION: --IMPRESSION-- 1. Essentially nondiagnostic exam. THIS IS AN ELECTRONICALLY VERIFIED FINAL REPORT 08/21/2023 8:10 PM - Electronically signed by Mauri Diaz M.D. WW: ARSENIO Report ID: [id number] Reading Location: [id number] Social History Type Status Start Date End Date Code Code Syst em Smoking History Unknown if ever smoked [address] Sex Female Medications Medication Start Date End Date Route Frequency Dose Code Code System Medication Instructions Home Meds OXcarbazepine 150MG Oral Tablet 10/28/2022 Unknown ORAL TWICE A DAY 150 MILLIGRAMS 732359 RxNorm TAKE 150 MILLIGRAMS ORAL TWICE A DAY oxyCODONE HCl 5MG Oral Tablet 10/28/2022 Unknown ORAL NEEDED EVERY 6 HOURS 5 MILLIGRAMS 4999829 RxNorm TAKE 5 MILLIGRAMS ORAL NEEDED EVERY 6 HOURS Acetaminophen 325MG Oral Tablet 12/04/2022 Unknown ORAL NEEDED EVERY 4 HOURS 650 MILLIGRAMS 210422 RxNorm TAKE 650 MILLIGRAMS ORAL NEEDED EVERY 4 HOURS Atorvastatin Calcium 40MG Oral Tablet 12/04/2022 Unknown ORAL AT BEDTIME 40 MILLIGRAMS 561812 RxNorm TAKE 40 MILLIGRAMS ORAL AT BEDTIME Bisacodyl 10MG Rectal Suppository 12/04/2022 Unknown RECTAL NEEDED DAILY 10 MILLIGRAMS 590298 RxNorm INSERT 10 MILLIGRAMS RECTAL NEEDED DAILY Budesonide 0.5MG/2ML Inhalation Suspension 12/04/2022 Unknown NEBULIZ ER RESP DAILY 0.5 MILLIGRAMS 232129 RxNorm 0.5 MILLIGRAMS NEBULIZER RESP DAILY Cetirizine HCl 10MG Oral Tablet 12/04/2022 Unknown ORAL ONCE A DAY 10 MILLIGRAMS 4076900 RxNorm TAKE 10 MILLIGRAMS ORAL ONCE A DAY Ferrous Sulfate 325MG Oral Tablet 12/04/2022 Unknown ORAL EVERY OTHER DAY 325 MILLIGRAMS 247437 RxNorm TAKE 325 MILLIGRAMS ORAL EVERY OTHER DAY Furosemide 40MG Oral Tablet 12/04/2022 Unknown ORAL ONCE A DAY 40 MILLIGRAMS 385539 RxNorm TAKE 40 MILLIGRAMS ORAL ONCE A DAY Gabapentin 300MG Oral Capsule 12/04/2022 Unknown ORAL THREE TIMES A DAY 300 MILLIGRAMS 127831 RxNorm TAKE 300 MILLIGRAMS ORAL THREE TIMES A DAY Ipratropium [place] rol Sulfate 0.5MG/3ML-3MG/ 3ML Inhalation Solution 12/04/2022 Unknown NEBULIZ ER NEEDED EVERY 2 HOURS 1 unit(s) 2684105 RxNorm 1 EACH NEBULIZER NEEDED EVERY 2 HOURS Melatonin 5 MG Oral Tablet 12/04/2022 Unknown ORAL AT BEDTIME 5 MG RxNorm TAKE 5 MG ORAL AT BEDTIME Milk Of Magnesia 2400MG/30ML Oral Suspension 12/04/2022 Unknown ORAL PRN Q72H 30 mL 570271 RxNorm TAKE 30 m L ORAL PRN Q72H Oxymetazoline HCl 0.05% Nasal [place] 12/04/2022 Unknown NOSTRIL BOTH NEEDED EVERY 12 HOURS 2 unit(s) 3142198 RxNorm SPRAY IN 2 EACH NOSTRIL BOTH NEEDED EVERY 12 HOURS Polyethylene Glycol 3350 17 GM/1 Packet Oral Packet 12/04/2022 Unknown ORAL ONCE A DAY 17 GRAM 407434 RxNorm TAKE 17 GRAM ORAL ONCE A DAY Sennosides 8.6MG Oral Tablet 12/04/2022 Unknown ORAL TWICE A DAY 17.2 MILLIGRAMS 796947 RxNorm TAKE 17.2 MILLIGRAMS ORAL TWICE A DAY Sertraline HCl 100MG Oral Tablet 12/04/2022 Unknown ORAL ONCE A DAY 200 MILLIGRAMS 047206 RxNorm TAKE 200 MILLIGRAMS ORAL ONCE A DAY Sodium Chloride Nasal Mist 0.65% Nasal [place] 12/04/2022 Unknown NOSTRIL BOTH TWICE A DAY 1 unit(s) RxNorm SPRAY IN 1 EACH NOSTRIL BOTH TWICE A DAY Xarelto 20MG Oral Tablet 12/04/2022 Unknown ORAL ONCE A DAY 20 MILLIGRAMS 0179269 RxNorm TAKE 20 MILLIGRAMS ORAL ONCE A DAY budesonide-for moterol fumarate 80MCG-4.5MCG/1 Actuat Inhalation Aerosol Liquid 12/04/2022 Unknown INHALAT ION TWICE A DAY 2 unit(s) 1806633 RxNorm 2 EACH INHALATION TWICE A DAY levETIRAcetam 500MG Oral Tablet 12/04/2022 Unknown ORAL TWICE A DAY 500 MILLIGRAMS 837891 RxNorm TAKE 500 MILLIGRAMS ORAL TWICE A DAY Protonix 40 MG Oral Tablet, Delayed Release 12/04/2022 Unknown BY MOUTH 1 TABLET 384721 RxNorm TAKE 1 TABLET BY MOUTH Assessment [...] Status Code Code System METABOLIC ENCEPHALOPATHY active 00469 000 SNOMED-CT METABOLIC ALKALOSIS active 9155719 SNOMED-CT COPD WITH EXACERBATION active 2081069 07 SNOMED-CT BACTEREMIA CAUSED BY GRAM-POSITIVE BACTERIA active 825089903856 SNOME D-CT UTI active 93029628 SNOMED-CT DEHYDRATION active 18502421 SNOMED-C T HYPOMAGNESEMIA active 656700745 SNOME D-CT EPILEPSY active 53436895 SNOMED-CT Allergies and Adverse Reactions Allergy Substance Reaction Severity Start Date Concern Status Co de Code System PENICILLIN Active Plan of Treatment Song Follow Up Visit 09/22/2023 Encounters Encounter Diagnosis Start Date Code Code Sys tem Dyspnea, unspecified 08/21/2023 SNOMED- CT Personal Care Team Section Performer Name Performer Role Active Date Inactive MICHEAL Krishnamurthy PCP - Primary care physician 2022-09-24 2023-06-03 JACINTA CUNNINGHAM PCP - Primary care physician 2023-07-14 Imaging Narrative Notes
--- OUTSIDE RECORDS SUMMARY | 2025-09-02 10:25 | XMS_ITS ---
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 Name Role Phone TEQUILA BURRELL Attending Unavailable OCTAVIO Mcguire Primary Unavailable Immunization [...] mcg/0.5 mL 08/27/2023 Completed 312 CVX Results TROPONIN LEVEL - Collect Pepe e/Time: 2024 01:18 [facility] ID: [id number] [address] [place] [address], [phone] LOINC: 93293-8 Test Value Unit Reference Range Code Code System Flag TROPONIN 0.077 ng/mL L=0.000 H=0.033 02802-9 LOINC H URINALYSIS w/Microscopy/C&S if indicated - Collect Date/Time: 03/24/2024 21:30 [facility] ID: [id number] [place], [id number] LOINC: 89143-1 Test Value Unit Reference Range Code Code System Flag UR SOURCE RAMÍREZ CATH 74123-2 LOINC COLOR YELLOW YELLOW 5778-6 LOINC CLARITY SL TURBID CLEAR 92241-1 LOINC A SPEC GRAVITY 1.015 1.000-1.030 5811-5 LOINC PH 8.5 5.0 - 6.5 5803-2 LOINC LEUK EST 2+ NEGATIVE 5799-2 LOINC A NITRATE NEGATIVE NEGATIVE PROTEIN 2+ NEGATIVE 5804-0 LOINC A GLUCOSE NEGATIVE NEGATIVE 83782-8 LOINC KETONES NEGATIVE NEGATIVE 24208-8 LOINC UROBILINOGEN 0.2 NEGATIVE 5818-0 LOINC BILIRUBIN NEGATIVE NEGATIVE 96948-6 LOINC BLOOD 2+ NEGATIVE 34899-9 LOINC WBC >50 0 - 2 42352-1 LOINC A RBC 10-20 0 - 2 97748-4 LOINC A EPITHELIAL FEW RARE-FEW 10094-4 LOINC BACTERIA 3+ NONE SEEN 34053-5 LOINC A MUCUS NONE SEEN NONE SEEN 8247-9 LOINC YEAST NOT PRESENT NOT PRESENT 88333-7 LOINC CASTS NONE SEEN 56524-1 LOINC CRYSTALS NONE SEEN 03404-9 LOINC CULTURE? YES 8251-1 LOINC DIAGNOSIS ABN LAB RESU RESPIRATORY PATHOGEN PANEL + SARS PCR - Collect Date/Time: 03/24/2024 21:28 [facility] ID: [id number] [address] [place], [place], [phone] LOINC: 42788-9 Test Value Unit Reference Range Code Code System Flag ADENOVIRUS NOT DETECTED NORMAL: NOT DETECTED 5778-6 LOINC CORONAVIRUS 229E NOT DETECTED NORMAL: NOT DETECTED 5778-6 LOINC CORONAVIRUS HKU1 NOT DETECTED NORMAL: NOT DETECTED 5778-6 LOINC CORONAVIRUS NL63 NOT DETECTED NORMAL: NOT DETECTED 5778-6 LOINC CORONAVIRUS OC43 NOT DETECTED NORMAL: NOT DETECTED 5778-6 LOINC CORONAVIRUS COVID-19 NOT DETECTED NORMAL: NOT DETECTED 69396-2 LOINC H METAPNEUMOVIRUS NOT DETECTED NORMAL: NO T DETECTED 5778-6 LOINC H RHINO/ENTEROVIRUS NOT DETECTED NORMAL: NOT DETECTED 5778-6 LOINC INFLU A NOT DETECTED NORMAL: NOT DETECTED 5778-6 LOINC INFLU A/H1 N/A NORMAL: NOT DETECTED 5778-6 LOINC INFLU A/H3 N/A NORMAL: NOT DETECTED 5778-6 LOINC INFLU A/H1 2008 N/A NORMAL: NOT DETECTED 5778-6 LOINC INFLU B NOT DETECTED NORMAL: NOT DETECTED 5778-6 LOINC PARAINFLU VIRUS 1 NOT DETECTED NORMAL: NO T DETECTED 5778-6 LOINC PARAINFLU VIRUS 2 NOT DETECTED NORMAL: NO T DETECTED 5778-6 LOINC PARAINFLU VIRUS 3 NOT DETECTED NORMAL: NO T DETECTED 5778-6 LOINC PARAINFLU VIRUS 4 NOT DETECTED NORMAL: NO T DETECTED 5778-6 LOINC RESP SYNCYTIAL VIRUS NOT DETECTED NORMAL: NOT DETECTED 5778-6 LOINC BORDETELLA PARAPERT NOT DETECTED NORMAL: NOT DETECTED 5778-6 LOINC BORDETELLA PERT NOT DETECTED NORMAL: NOT DETECTED 5778-6 LOINC CHLAMYDIA PNEUMONIAE NOT DETECTED NORMAL: NOT DETECTED 5778-6 LOINC MYCOPLAS PNEUMONIAE NOT DETECTED NORMAL: NOT DETECTED 5778-6 LOINC SEND TO [facility]? NO ARTERIAL BLOOD GAS - Collect Date/Time: 03/24/2024 21:20 [facility] ID: [id number] [address] [place], [place], [phone] LOINC: 82571-0 Test Value Unit Reference Range Code Code System Flag pH 7.26 L=7.35 H=7.45 2753-2 LOINC L PO2 139.0 mmHg L=80.0 H=100 66310-9 LOINC H PCO2 48.0 mmHg L=35.0 H=45.0 09604-4 LOINC H BE -4.8 mmol/L L=0.0 H=2.0 26604-2 LOINC L BEecf -5.8 mmol/L L=0.0 H=2.0 75216-1 LOINC L HCO3 21.5 mmol/L L=22.0 H=26.0 73957-6 LOINC L A-aDO2 3 mmHg L=7 H=13 14614-3 LOINC L O2Hb 95.4 % L=85.0 H=100 16484-8 LOINC sO2m 99.0 % L=85.0 H=[place] [address]-2 LOINC PUNCTURE SITE RIGHT RADIAL FIO2 28 % TROPONIN LEVEL - Collect Pepe e/Time: 03/24/2024 20:53 [facility] ID: [id number] [address] [place] [address], [id number] LOINC: 42292-5 Test Value Unit Reference Range Code Code System Flag TROPONIN 0.058 ng/mL L=0.000 H=0.033 91057-7 LOINC H PRO BNP - Collect Date/Time: 03/24/2024 20:53 [facility] ID: [id number] [address] [place] [address], [phone] LOINC: 03086-1 Test Value Unit Reference Range Code Code System Flag Pro BNP2 8900 pg/mL L=0 H=900 16303-2 LOINC HH CALLED TO: DR. MANDEL AT: 2131 BY: MOT COMPREHENSIVE METABOLIC PANE L - Collect Date/Time: 03/24/2024 20:53 [facility] ID: [id number] [address] [place] [address], [phone] LOINC: 66375-0 Test Value Unit Reference Range Code Code System Flag FASTING UNKNOWN BUN 84 mg/dL L=7 H=20 3094-0 LOINC HH CALLED TO: EARLINE WYATT AT: 2120 BY: MOT CREATININE 5.10 mg/dL L=0.52 H=1.04 2160-0 LOINC HH CALLED TO: EARLINE WYATT AT: 2120 BY: MOT GLUCOSE 143 mg/dL L=74 H=106 2345-7 LOINC H SODIUM 139 mmol/L L=132 H=144 2951-2 LOINC POTASSIUM 4.7 mmol/L L=3.5 H=5.1 2823-3 LOINC CHLORIDE 106 mmol/L L=98 H=107 2075-0 LOINC CO2 22.0 mmol/L L=22.0 H=30.0 2027-9 LOINC ANION GAP 16 L=10 H=20 78248-2 LOINC OSMOLALITY 316 mOs/kG L=280 H=296 57721-7 LOINC H BUN/CREAT 16.5 3097-3 LOINC CALCIUM 9.4 mg/dL L=8.3 H=10.5 58343-0 LOINC AST 23 U/L L=15 H=46 1920-8 LOINC ALT 14 U/L L=9 H=72 1742-6 LOINC ALKALINE PHOS 112 U/L L=38 H=126 6768-6 LOINC TOTAL BILI 0.5 mg/dL L=0.2 H=1.3 1975-2 LOINC ALBUMIN 4.2 G/dL L=3.5 H=5.0 1751-7 LOINC TOTAL PROTEIN 7.5 g/L L=6.3 H=8.2 2885-2 LOINC A/G RATIO 1.3 22355-6 LOINC AGE 63 82027-6 LOINC eGFR NON-AFR 9 ml/min eGFR AFR AMER 11 ml/min LACTIC ACID - Collect Date/T pili: 03/24/2024 20:53 [facility] ID: [id number] [address] [place] [address], [phone] LOINC: 08207-3 Test Value Unit Reference Range Code Code System Flag LACTIC ACID 1.4 mmol/L L=0.7 H=2.1 45230-6 LOINC MAGNESIUM - Collect Date/[place] e: 03/24/2024 20:53 [facility] ID: [id number] [address] [place] [address], [phone] LOINC: 58427-7 Test Value Unit Reference Range Code Code System Flag MAGNESIUM 2.0 mg/dL L=1.6 H=2.3 72772-9 LOINC CBC W/ DIFF - Collect Date/T pili: 03/24/2024 20:53 [facility] ID: [id number] [address] [place], [place], [phone] LOINC: 83099-1 Test Value Unit Reference Range Code Code System Flag WBC 5.5 10^3uL L=4.8 H=10.8 RBC 3.60 10^6uL L=4.20 H=5.40 L HEMOGLOBIN 9.4 g/dL L=12.0 H=16.0 718-7 LOINC L HEMATOCRIT 31.4 VOL% L=37.0 H=47.0 4544-3 LOINC L MCV 87.2 fL L=81.0 H=99.0 MCH 26.1 pg L=27.0 H=32.0 L MCHC 29.9 g/dL L=32.0 H=36.0 L PLATELETS 160 10^3uL L=100 H=400 54247-9 LOINC RDW 16.1 % L=11.7 H=15.5 H %GRAN L=40.0 H=70.0 27243-2 LOINC %LYMPH L=20.0 H=45.0 736-9 LOINC %MONO L=2.0 H=10.0 87345-9 LOINC %EOS L=0.0 H=6.0 713-8 LOINC %BASO L=0.0 H=3.0 706-2 LOINC #NEUT L=1.9 H=7.6 06669-0 LOINC #LYMPH L=0.9 H=4.9 97115-2 LOINC #MONO L=0.1 H=0.9 41763-3 LOINC #EOS L=0.0 H=0.6 712-0 LOINC #BASO L=0.00 H=0.10 44973-2 LOINC #IM GRANS L=0.0 H=7.0 06544-2 LOINC %IM GRANS L=0.0 H=5.0 55654-9 LOINC %NRB L=0.0 H=0.2 36598-0 LOINC #NRB L=0.000 H=0.012 80329-0 LOINC MANUAL DIFF SEE BELOW A SEG 92 % L=40 H=70 H BANDS 5 % L=0 H=6 LYMPH 3 % L=20 H=45 L MONO 0.0 % L=2.0 H=10.0 L EOS 0 % L=0 H=6 713-8 LOINC BASO 0 % L=0 H=3 IM GRANS 0 % L=0 H=5 METAS 0 % L=0 H=0 MYELOS 0 % L=0 H=0 PROMYELOS 0 % L=0 H=0 BLASTS 0 % L=0 H=0 22867-0 LOINC NUNU LYMPHS 0.00 % L=0.00 H=5.00 SMUDGE CELLS 0 % L=0 H=0 NRBC 0.0 % L=0.0 H=0.0 PLTS APPEAR NORMAL NEUT # 5.3 10^3uL L=1.9 H=7.6 LYMPH # 0.2 10^3uL L=0.9 H=4.9 L MONO # 0.0 10^3uL L=0.1 H=0.9 L EOS # 0.0 10^3uL L=0.0 H=0.6 712-0 LOINC BASO # 0.0 10^3uL L=0.0 H=0.1 83364-3 LOINC RBC MORPH NORMAL CHEST 1V - Completed: 2023 22:36 LOINC: EXAM DESCRIPTION: CHEST 1V REASON FOR STUDY: Attempted 3 Times Pt positioning and weight(408) pounds 5 personnel attempted to move patient AMS Fever Comparison 09-02-23 Duration: . TECHNIQUE: 1 radiographic view(s) of the chest. COMPARISON: 09/02/2023 FINDINGS: Exam is severely limited by the patient's large body habitus. There are diffuse bilateral interstitial infiltrates which could reflect interstitial pneumonia. No definite pleural effusion. No pneumothorax. Cardiac size is stable. IMPRESSION: Exam is severely limited by the patient's large body habitus. Diffuse bilateral interstitial infiltrates could reflect interstitial pneumonia. THIS IS AN ELECTRONICALLY VERIFIED FINAL REPORT 03/24/2024 10:34 PM - Electronically signed by Quinten Zheng M.D. KT: CARO Report ID: [id number] Reading Location: [id number] Social History Type Status Start Date End Date Code Code Syst em Smoking History Unknown if ever smoked [id number] Sex Female Medications Medication Start Date End Date Route Frequency Dose Code Code System Medication Instructions Home Meds OXcarbazepine 150MG Oral Tablet 10/28/2022 Unknown ORAL TWICE A DAY 150 MILLIGRAMS 480165 RxNorm TAKE 150 MILLIGRAMS ORAL TWICE A DAY oxyCODONE HCl 5MG Oral Tablet 10/28/2022 Unknown ORAL NEEDED EVERY 6 HOURS 5 MILLIGRAMS 6532945 RxNorm TAKE 5 MILLIGRAMS ORAL NEEDED EVERY 6 HOURS Acetaminophen 325MG Oral Tablet 12/04/2022 Unknown ORAL NEEDED EVERY 4 HOURS 650 MILLIGRAMS 630505 RxNorm TAKE 650 MILLIGRAMS ORAL NEEDED EVERY 4 HOURS Atorvastatin Calcium 40MG Oral Tablet 12/04/2022 Unknown ORAL AT BEDTIME 40 MILLIGRAMS 748404 RxNorm TAKE 40 MILLIGRAMS ORAL AT BEDTIME Bisacodyl 10MG Rectal Suppository 12/04/2022 Unknown RECTAL NEEDED DAILY 10 MILLIGRAMS 772882 RxNorm INSERT 10 MILLIGRAMS RECTAL NEEDED DAILY Budesonide 0.5MG/2ML Inhalation Suspension 12/04/2022 Unknown NEBULIZ ER RESP DAILY 0.5 MILLIGRAMS 432719 RxNorm 0.5 MILLIGRAMS NEBULIZER RESP DAILY Cetirizine HCl 10MG Oral Tablet 12/04/2022 Unknown ORAL ONCE A DAY 10 MILLIGRAMS 8949914 RxNorm TAKE 10 MILLIGRAMS ORAL ONCE A DAY Ferrous Sulfate 325MG Oral Tablet 12/04/2022 Unknown ORAL EVERY OTHER DAY 325 MILLIGRAMS 034796 RxNorm TAKE 325 MILLIGRAMS ORAL EVERY OTHER DAY Furosemide 40MG Oral Tablet 12/04/2022 Unknown ORAL ONCE A DAY 40 MILLIGRAMS 604946 RxNorm TAKE 40 MILLIGRAMS ORAL ONCE A DAY Gabapentin 300MG Oral Capsule 12/04/2022 Unknown ORAL THREE TIMES A DAY 300 MILLIGRAMS 296770 RxNorm TAKE 300 MILLIGRAMS ORAL THREE TIMES A DAY Ipratropium [place] rol Sulfate 0.5MG/3ML-3MG/ 3ML Inhalation Solution 12/04/2022 Unknown NEBULIZ ER NEEDED EVERY 2 HOURS 1 unit(s) 1202867 RxNorm 1 EACH NEBULIZER NEEDED EVERY 2 HOURS Melatonin 5 MG Oral Tablet 12/04/2022 Unknown ORAL AT BEDTIME 5 MG RxNorm TAKE 5 MG ORAL AT BEDTIME Milk Of Magnesia 2400MG/30ML Oral Suspension 12/04/2022 Unknown ORAL PRN Q72H 30 mL 651119 RxNorm TAKE 30 m L ORAL PRN Q72H Oxymetazoline HCl 0.05% Nasal [place] 12/04/2022 Unknown NOSTRIL BOTH NEEDED EVERY 12 HOURS 2 unit(s) 6130273 RxNorm SPRAY IN 2 EACH NOSTRIL BOTH NEEDED EVERY 12 HOURS Polyethylene Glycol 3350 17 GM/1 Packet Oral Packet 12/04/2022 Unknown ORAL ONCE A DAY 17 GRAM 001082 RxNorm TAKE 17 GRAM ORAL ONCE A DAY Sennosides 8.6MG Oral Tablet 12/04/2022 Unknown ORAL TWICE A DAY 17.2 MILLIGRAMS 084419 RxNorm TAKE 17.2 MILLIGRAMS ORAL TWICE A DAY Sertraline HCl 100MG Oral Tablet 12/04/2022 Unknown ORAL ONCE A DAY 200 MILLIGRAMS 449322 RxNorm TAKE 200 MILLIGRAMS ORAL ONCE A DAY Sodium Chloride Nasal Mist 0.65% Nasal [place] 12/04/2022 Unknown NOSTRIL BOTH TWICE A DAY 1 unit(s) RxNorm SPRAY IN 1 EACH NOSTRIL BOTH TWICE A DAY Xarelto 20MG Oral Tablet 12/04/2022 Unknown ORAL ONCE A DAY 20 MILLIGRAMS 8485086 RxNorm TAKE 20 MILLIGRAMS ORAL ONCE A DAY budesonide-for moterol fumarate 80MCG-4.5MCG/1 Actuat Inhalation Aerosol Liquid 12/04/2022 Unknown INHALAT ION TWICE A DAY 2 unit(s) 4091367 RxNorm 2 EACH INHALATION TWICE A DAY levETIRAcetam 500MG Oral Tablet 12/04/2022 Unknown ORAL TWICE A DAY 500 MILLIGRAMS 995146 RxNorm TAKE 500 MILLIGRAMS ORAL TWICE A DAY Protonix 40 MG Oral Tablet, Delayed Release 12/04/2022 Unknown BY MOUTH 1 TABLET 687957 RxNorm TAKE 1 TABLET BY MOUTH Assessment [...] Status Code Code System METABOLIC ENCEPHALOPATHY active 74141 000 SNOMED-CT METABOLIC ALKALOSIS active 6776905 SNOMED-CT COPD WITH EXACERBATION active 6880258 07 SNOMED-CT BACTEREMIA CAUSED BY GRAM-POSITIVE BACTERIA active 965069225337 SNOME D-CT UTI active 63843596 SNOMED-CT DEHYDRATION active 48068037 SNOMED-C T HYPOMAGNESEMIA active 972283013 SNOME D-CT EPILEPSY active 11424057 SNOMED-CT Allergies and Adverse Reactions Allergy Substance Reaction Severity Start Date Concern Status Co de Code System PENICILLIN Active Plan of Treatment Song Follow Up Visit 09/22/2023 Encounters Encounter Diagnosis Start Date Code Code Sys tem Other pneumonia, unspecified organism 03/24/2024 SNOMED-CT Personal Care Team Section Performer Name Performer Role Active Date Inactive MICHEAL Krishnamurthy PCP - Primary care physician 2022-09-24 2023-06-03 JACINTA CUNNINGHAM PCP - Primary care physician 2023-07-14 Imaging Narrative Notes
--- OUTSIDE RECORDS SUMMARY | 2025-09-02 10:25 | XMS_ITS ---
Author Organization Unknown Address [address] [place] [phone] Phone Care Team Providers Care Social And Political Studies Professor Name Role Phone OCTAVIO Mcguire Attending Unavailable NO PCP Primary Unavailable Immunization Immunization Date Status Additional [...] mcg/0.5 mL 08/27/2023 Completed 312 CVX Results CBC W/ DIFF - Collect Date/T pili: 06/30/2023 07:50 [facility] ID: [id number] [address] [place], [place], [phone] LOINC: 79251-8 Test Value Unit Reference Range Code Code System Flag WBC 4.8 10^3uL L=4.8 H=10.8 RBC 2.75 10^6uL L=4.20 H=5.40 L HEMOGLOBIN 7.6 g/dL L=12.0 H=16.0 718-7 LOINC LL CALLED TO: INDU Ricketts RN AT: 1044 06/30/23 BY: SDK HEMATOCRIT 26.2 VOL% L=37.0 H=47.0 4544-3 LOINC L MCV 95.3 fL L=81.0 H=99.0 MCH 27.6 pg L=27.0 H=32.0 MCHC 29.0 g/dL L=32.0 H=36.0 L PLATELETS 135 10^3uL L=100 H=400 73424-8 LOINC RDW 14.0 % L=11.7 H=15.5 %GRAN 79.6 % L=40.0 H=70.0 51114-1 LOINC H %LYMPH 13.6 % L=20.0 H=45.0 736-9 LOINC L %MONO 6.4 % L=2.0 H=10.0 94402-6 LOINC %EOS 0.0 % L=0.0 H=6.0 713-8 LOINC %BASO 0.0 % L=0.0 H=3.0 706-2 LOINC #NEUT 3.9 10^3uL L=1.9 H=7.6 26930-0 LOINC #LYMPH 0.7 10^3uL L=0.9 H=4.9 53447-7 LOINC L #MONO 0.3 10^3uL L=0.1 H=0.9 34375-1 LOINC #EOS 0.0 10^3uL L=0.0 H=0.6 712-0 LOINC #BASO 0.00 10^3uL L=0.00 H=0.10 92327-0 LOINC #IM GRANS 0.0 10^3uL L=0.0 H=7.0 78867-3 LOINC %IM GRANS 0.4 % L=0.0 H=5.0 67280-0 LOINC %NRB 0.0 L=0.0 H=0.2 57907-3 LOINC #NRB 0.000 L=0.000 H=0.012 52471-1 LOINC MANUAL DIFF NOT INDICATED RBC MORPH SEE BELOW ANISO NORMAL:NONE SEEN 702-1 LOINC MACRO NORMAL:NONE SEEN MICRO NORMAL:NONE SEEN PENNY NORMAL:NONE SEEN HYPO 1+ NORMAL:NONE SEEN POLYC NORMAL:NONE SEEN Social History Type Status Start Date End Date Code Code Syst em Smoking History Unknown if ever smoked [address] Sex Female Medications Medication Start Date End Date Route Frequency Dose Code Code System Medication Instructions Home Meds OXcarbazepine 150MG Oral Tablet 10/28/2022 Unknown ORAL TWICE A DAY 150 MILLIGRAMS 227396 RxNorm TAKE 150 MILLIGRAMS ORAL TWICE A DAY oxyCODONE HCl 5MG Oral Tablet 10/28/2022 Unknown ORAL NEEDED EVERY 6 HOURS 5 MILLIGRAMS 8482149 RxNorm TAKE 5 MILLIGRAMS ORAL NEEDED EVERY 6 HOURS Acetaminophen 325MG Oral Tablet 12/04/2022 Unknown ORAL NEEDED EVERY 4 HOURS 650 MILLIGRAMS 585646 RxNorm TAKE 650 MILLIGRAMS ORAL NEEDED EVERY 4 HOURS Atorvastatin Calcium 40MG Oral Tablet 12/04/2022 Unknown ORAL AT BEDTIME 40 MILLIGRAMS 723859 RxNorm TAKE 40 MILLIGRAMS ORAL AT BEDTIME Bisacodyl 10MG Rectal Suppository 12/04/2022 Unknown RECTAL NEEDED DAILY 10 MILLIGRAMS 326878 RxNorm INSERT 10 MILLIGRAMS RECTAL NEEDED DAILY Budesonide 0.5MG/2ML Inhalation Suspension 12/04/2022 Unknown NEBULIZ ER RESP DAILY 0.5 MILLIGRAMS 169305 RxNorm 0.5 MILLIGRAMS NEBULIZER RESP DAILY Cetirizine HCl 10MG Oral Tablet 12/04/2022 Unknown ORAL ONCE A DAY 10 MILLIGRAMS 5256337 RxNorm TAKE 10 MILLIGRAMS ORAL ONCE A DAY Ferrous Sulfate 325MG Oral Tablet 12/04/2022 Unknown ORAL EVERY OTHER DAY 325 MILLIGRAMS 004226 RxNorm TAKE 325 MILLIGRAMS ORAL EVERY OTHER DAY Furosemide 40MG Oral Tablet 12/04/2022 Unknown ORAL ONCE A DAY 40 MILLIGRAMS 435283 RxNorm TAKE 40 MILLIGRAMS ORAL ONCE A DAY Gabapentin 300MG Oral Capsule 12/04/2022 Unknown ORAL THREE TIMES A DAY 300 MILLIGRAMS 282524 RxNorm TAKE 300 MILLIGRAMS ORAL THREE TIMES A DAY Ipratropium [place] rol Sulfate 0.5MG/3ML-3MG/ 3ML Inhalation Solution 12/04/2022 Unknown NEBULIZ ER NEEDED EVERY 2 HOURS 1 unit(s) 8650050 RxNorm 1 EACH NEBULIZER NEEDED EVERY 2 HOURS Melatonin 5 MG Oral Tablet 12/04/2022 Unknown ORAL AT BEDTIME 5 MG RxNorm TAKE 5 MG ORAL AT BEDTIME Milk Of Magnesia 2400MG/30ML Oral Suspension 12/04/2022 Unknown ORAL PRN Q72H 30 mL 495953 RxNorm TAKE 30 m L ORAL PRN Q72H Oxymetazoline HCl 0.05% Nasal [place] 12/04/2022 Unknown NOSTRIL BOTH NEEDED EVERY 12 HOURS 2 unit(s) 5846353 RxNorm SPRAY IN 2 EACH NOSTRIL BOTH NEEDED EVERY 12 HOURS Polyethylene Glycol 3350 17 GM/1 Packet Oral Packet 12/04/2022 Unknown ORAL ONCE A DAY 17 GRAM 397692 RxNorm TAKE 17 GRAM ORAL ONCE A DAY Sennosides 8.6MG Oral Tablet 12/04/2022 Unknown ORAL TWICE A DAY 17.2 MILLIGRAMS 680553 RxNorm TAKE 17.2 MILLIGRAMS ORAL TWICE A DAY Sertraline HCl 100MG Oral Tablet 12/04/2022 Unknown ORAL ONCE A DAY 200 MILLIGRAMS 872382 RxNorm TAKE 200 MILLIGRAMS ORAL ONCE A DAY Sodium Chloride Nasal Mist 0.65% Nasal [place] 12/04/2022 Unknown NOSTRIL BOTH TWICE A DAY 1 unit(s) RxNorm SPRAY IN 1 EACH NOSTRIL BOTH TWICE A DAY Xarelto 20MG Oral Tablet 12/04/2022 Unknown ORAL ONCE A DAY 20 MILLIGRAMS 7293405 RxNorm TAKE 20 MILLIGRAMS ORAL ONCE A DAY budesonide-for moterol fumarate 80MCG-4.5MCG/1 Actuat Inhalation Aerosol Liquid 12/04/2022 Unknown INHALAT ION TWICE A DAY 2 unit(s) 6110143 RxNorm 2 EACH INHALATION TWICE A DAY levETIRAcetam 500MG Oral Tablet 12/04/2022 Unknown ORAL TWICE A DAY 500 MILLIGRAMS 041137 RxNorm TAKE 500 MILLIGRAMS ORAL TWICE A DAY Protonix 40 MG Oral Tablet, Delayed Release 12/04/2022 Unknown BY MOUTH 1 TABLET 901688 RxNorm TAKE 1 TABLET BY MOUTH Assessment [...] Status Code Code System METABOLIC ENCEPHALOPATHY active 90935 000 SNOMED-CT METABOLIC ALKALOSIS active 5843502 SNOMED-CT COPD WITH EXACERBATION active 9347471 07 SNOMED-CT BACTEREMIA CAUSED BY GRAM-POSITIVE BACTERIA active 480322276527 SNOME D-CT UTI active 75964907 SNOMED-CT DEHYDRATION active 94998933 SNOMED-C T HYPOMAGNESEMIA active 281035630 SNOME D-CT EPILEPSY active 10494038 SNOMED-CT Allergies and Adverse Reactions Allergy Substance Reaction Severity Start Date Concern Status Co de Code System PENICILLIN Active Plan of Treatment Song Follow Up Visit 09/22/2023 Encounters Encounter Diagnosis Start Date Code Code Sys tem Abnormal finding of blood chemistry, unspecified 06/30 SNOMED-CT Personal Care Team Section Performer Name Performer Role Active Date Inactive MICHEAL Krishnamurthy PCP - Primary care physician 2022-09-24 2023-06-03 JACINTA CUNNINGHAM PCP - Primary care physician 2023-07-14
--- OUTSIDE RECORDS SUMMARY | 2025-09-02 10:25 | XMS_ITS ---
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 Role Phone OCTAVIO Mcguire Attending Unavailable [...] CBC W/ DIFF - Collect Date/T pili: 04/18/2024 08:10 [facility] ID: [id number] [place] [address], [phone] LOINC: 71576-9 Test Value Unit Reference Range Code Code System Flag WBC 2.9 10^3uL L=4.8 H=10.8 L RBC 2.30 10^6uL L=4.20 H=5.40 L HEMOGLOBIN 6.5 g/dL L=12.0 H=16.0 718-7 LOINC LL CALLED TO: AFSHIN Lieberman [facility] AT: 1154 04/18/24 BY: SDK HEMATOCRIT 21.8 VOL% L=37.0 H=47.0 4544-3 LOINC L MCV 94.8 fL L=81.0 H=99.0 MCH 28.3 pg L=27.0 H=32.0 MCHC 29.8 g/dL L=32.0 H=36.0 L PLATELETS 117 10^3uL L=100 H=400 91237-7 LOINC RDW 16.3 % L=11.7 H=15.5 H %GRAN 69.4 % L=40.0 H=70.0 26604-4 LOINC %LYMPH 23.8 % L=20.0 H=45.0 736-9 LOINC %MONO 6.5 % L=2.0 H=10.0 95847-2 LOINC %EOS 0.0 % L=0.0 H=6.0 713-8 LOINC %BASO 0.0 % L=0.0 H=3.0 706-2 LOINC #NEUT 2.0 10^3uL L=1.9 H=7.6 10157-4 LOINC #LYMPH 0.7 10^3uL L=0.9 H=4.9 31716-2 LOINC L #MONO 0.2 10^3uL L=0.1 H=0.9 67322-6 LOINC #EOS 0.0 10^3uL L=0.0 H=0.6 712-0 LOINC #BASO 0.00 10^3uL L=0.00 H=0.10 13950-0 LOINC #IM GRANS 0.0 10^3uL L=0.0 H=7.0 27810-9 LOINC %IM GRANS 0.3 % L=0.0 H=5.0 47274-8 LOINC %NRB 0.0 L=0.0 H=0.2 01703-7 LOINC #NRB 0.000 L=0.000 H=0.012 42140-3 LOINC MANUAL DIFF NOT INDICATED RBC MORPH NOT INDICATED Social History Type Status Start Date End Date Code Code Syst em Smoking History Unknown if ever smoked [id number] Sex Female Medications Medication Start Date End Date Route Frequency Dose Code Code System Medication Instructions Home Meds OXcarbazepine 150MG Oral Tablet 10/28/2022 Unknown ORAL TWICE A DAY 150 MILLIGRAMS 987152 RxNorm TAKE 150 MILLIGRAMS ORAL TWICE A DAY oxyCODONE HCl 5MG Oral Tablet 10/28/2022 Unknown ORAL NEEDED EVERY 6 HOURS 5 MILLIGRAMS 8599557 RxNorm TAKE 5 MILLIGRAMS ORAL NEEDED EVERY 6 HOURS Acetaminophen 325MG Oral Tablet 12/04/2022 Unknown ORAL NEEDED EVERY 4 HOURS 650 MILLIGRAMS 128327 RxNorm TAKE 650 MILLIGRAMS ORAL NEEDED EVERY 4 HOURS Atorvastatin Calcium 40MG Oral Tablet 12/04/2022 Unknown ORAL AT BEDTIME 40 MILLIGRAMS 172522 RxNorm TAKE 40 MILLIGRAMS ORAL AT BEDTIME Bisacodyl 10MG Rectal Suppository 12/04/2022 Unknown RECTAL NEEDED DAILY 10 MILLIGRAMS 529532 RxNorm INSERT 10 MILLIGRAMS RECTAL NEEDED DAILY Budesonide 0.5MG/2ML Inhalation Suspension 12/04/2022 Unknown NEBULIZ ER RESP DAILY 0.5 MILLIGRAMS 357643 RxNorm 0.5 MILLIGRAMS NEBULIZER RESP DAILY Cetirizine HCl 10MG Oral Tablet 12/04/2022 Unknown ORAL ONCE A DAY 10 MILLIGRAMS 3154785 RxNorm TAKE 10 MILLIGRAMS ORAL ONCE A DAY Ferrous Sulfate 325MG Oral Tablet 12/04/2022 Unknown ORAL EVERY OTHER DAY 325 MILLIGRAMS 910483 RxNorm TAKE 325 MILLIGRAMS ORAL EVERY OTHER DAY Furosemide 40MG Oral Tablet 12/04/2022 Unknown ORAL ONCE A DAY 40 MILLIGRAMS 857663 RxNorm TAKE 40 MILLIGRAMS ORAL ONCE A DAY Gabapentin 300MG Oral Capsule 12/04/2022 Unknown ORAL THREE TIMES A DAY 300 MILLIGRAMS 093205 RxNorm TAKE 300 MILLIGRAMS ORAL THREE TIMES A DAY Ipratropium [place] rol Sulfate 0.5MG/3ML-3MG/ 3ML Inhalation Solution 12/04/2022 Unknown NEBULIZ ER NEEDED EVERY 2 HOURS 1 unit(s) 0353958 RxNorm 1 EACH NEBULIZER NEEDED EVERY 2 HOURS Melatonin 5 MG Oral Tablet 12/04/2022 Unknown ORAL AT BEDTIME 5 MG RxNorm TAKE 5 MG ORAL AT BEDTIME Milk Of Magnesia 2400MG/30ML Oral Suspension 12/04/2022 Unknown ORAL PRN Q72H 30 mL 501996 RxNorm TAKE 30 m L ORAL PRN Q72H Oxymetazoline HCl 0.05% Nasal [place] 12/04/2022 Unknown NOSTRIL BOTH NEEDED EVERY 12 HOURS 2 unit(s) 3134815 RxNorm SPRAY IN 2 EACH NOSTRIL BOTH NEEDED EVERY 12 HOURS Polyethylene Glycol 3350 17 GM/1 Packet Oral Packet 12/04/2022 Unknown ORAL ONCE A DAY 17 GRAM 331010 RxNorm TAKE 17 GRAM ORAL ONCE A DAY Sennosides 8.6MG Oral Tablet 12/04/2022 Unknown ORAL TWICE A DAY 17.2 MILLIGRAMS 702966 RxNorm TAKE 17.2 MILLIGRAMS ORAL TWICE A DAY Sertraline HCl 100MG Oral Tablet 12/04/2022 Unknown ORAL ONCE A DAY 200 MILLIGRAMS 810695 RxNorm TAKE 200 MILLIGRAMS ORAL ONCE A DAY Sodium Chloride Nasal Mist 0.65% Nasal [place] 12/04/2022 Unknown NOSTRIL BOTH TWICE A DAY 1 unit(s) RxNorm SPRAY IN 1 EACH NOSTRIL BOTH TWICE A DAY Xarelto 20MG Oral Tablet 12/04/2022 Unknown ORAL ONCE A DAY 20 MILLIGRAMS 0441844 RxNorm TAKE 20 MILLIGRAMS ORAL ONCE A DAY budesonide-for moterol fumarate 80MCG-4.5MCG/1 Actuat Inhalation Aerosol Liquid 12/04/2022 Unknown INHALAT ION TWICE A DAY 2 unit(s) 1784414 RxNorm 2 EACH INHALATION TWICE A DAY levETIRAcetam 500MG Oral Tablet 12/04/2022 Unknown ORAL TWICE A DAY 500 MILLIGRAMS 733326 RxNorm TAKE 500 MILLIGRAMS ORAL TWICE A DAY Protonix 40 MG Oral Tablet, Delayed Release 12/04/2022 Unknown BY MOUTH 1 TABLET 923657 RxNorm TAKE 1 TABLET BY MOUTH Assessment [...] Status Code Code System METABOLIC ENCEPHALOPATHY active 11014 000 SNOMED-CT METABOLIC ALKALOSIS active 8420583 SNOMED-CT COPD WITH EXACERBATION active 9367686 07 SNOMED-CT BACTEREMIA CAUSED BY GRAM-POSITIVE BACTERIA active 498250427059 SNOME D-CT UTI active 18675533 SNOMED-CT DEHYDRATION active 83016727 SNOMED-C T HYPOMAGNESEMIA active 172314456 SNOME D-CT EPILEPSY active 70486015 SNOMED-CT Allergies and Adverse Reactions Allergy Substance Reaction Severity Start Date Concern Status Co de Code System PENICILLIN Active Plan of Treatment Song Follow Up Visit 09/22/2023 Encounters Encounter Diagnosis Start Date Code Code Sys tem Chronic respiratory failure, unspecified whether with hypoxia or hypercapnia 04/18/2024 SNOMED-CT Personal Care Team Section Performer Name Performer Role Active Date Inactive MICHEAL Krishnamurthy PCP - Primary care physician 2022-09-24 2023-06-03 JACINTA CUNNINGHAM PCP - Primary care physician 2023-07-14
--- OUTSIDE RECORDS SUMMARY | 2025-09-02 10:25 | XMS_ITS ---
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 ID: [id number] [address] [place] [address], [phone] LOINC: 92577-4 Test Value Unit Reference Range Code Code System Flag FASTING YES BUN 77 mg/dL L=7 H=20 3094-0 LOINC CALLED TO: INDU Christine AT: 0752 BY: SD CREATININE 3.80 mg/dL L=0.52 H=1.04 2160-0 LOINC H GLUCOSE 117 mg/dL L=74 H=106 2345-7 LOINC H SODIUM 138 mmol/L L=132 H=144 2951-2 LOINC POTASSIUM 4.1 mmol/L L=3.5 H=5.1 2823-3 LOINC CHLORIDE 98 mmol/L L=98 H=107 2075-0 LOINC CO2 31.0 mmol/L L=22.0 H=30.0 2028-9 LOINC H ANION GAP 13 L=10 H=20 28409-8 LOINC OSMOLALITY 310 mOs/kG L=280 H=296 73300-7 LOINC H BUN/CREAT 20.3 3097-3 LOINC CALCIUM 8.5 mg/dL L=8.3 H=10.5 02430-5 LOINC AST 22 U/L L=15 H=46 1920-8 LOINC ALT 17 U/L L=9 H=72 1742-6 LOINC ALKALINE PHOS 113 U/L L=38 H=126 6768-6 LOINC TOTAL BILI 0.3 mg/dL L=0.2 H=1.3 1975-2 LOINC ALBUMIN 3.1 G/dL L=3.5 H=5.0 1751-7 LOINC L TOTAL PROTEIN 5.4 g/L L=6.3 H=8.2 2885-2 LOINC L A/G RATIO 1.3 35938-6 LOINC AGE 64 80809-2 LOINC eGFR NON-AFR 13 ml/min eGFR AFR AMER 16 ml/min LIPID PANEL - Collect Date/T pili: 04/13/2024 06:45 [facility] ID: [id number] [address] [place], [place], [phone] LOINC: 25860-2 Test Value Unit Reference Range Code Code System Flag FASTING YES CHOLESTEROL 191 mg/dL L=0 H=200 3-3 LOINC TRIGLYCERIDE 252 mg/dL L=0 H=150 2571-8 LOINC H HDL 32 mg/dL L=40 H=60 2084-9 LOINC L LDL 94 mg/dL 2088-1 LOINC KEPPRA - Collect Date/Time: 04/13/2024 06:45 [facility] ID: [id number] [address] [place] [address], [phone] LOINC: 17096-8 Test Value Unit Reference Range Code Code System Flag Levetiracetam, S 47.6 10.0-40.0 89884-9 LOINC H HGB A1C -GLYCOHEMOGLOBIN - C ollect Date/Time: 04/13/2024 06:45 [facility] ID: [id number] [address] [place] [address], [phone] LOINC: 4548-4 Test Value Unit Reference Range Code Code System Flag HGBA1C 5.4 % 4548-4 LOINC CBC W/ DIFF - Collect Date/T pili: 04/13/2024 06:45 [facility] ID: [id number] [address] [place] [address], [phone] LOINC: 64087-5 Test Value Unit Reference Range Code Code System Flag WBC 3.4 10^3uL L=4.8 H=10.8 L RBC 2.40 10^6uL L=4.20 H=5.40 L HEMOGLOBIN 6.6 g/dL L=12.0 H=16.0 718-7 LOINC CALLED TO: PABLO @[facility] AT: 0800 BY: SDK HEMATOCRIT 22.0 VOL% L=37.0 H=47.0 4544-3 LOINC L MCV 91.7 fL L=81.0 H=99.0 MCH 27.5 pg L=27.0 H=32.0 MCHC 30.0 g/dL L=32.0 H=36.0 L PLATELETS 74 10^3uL L=100 H=400 55838-9 LOINC L RDW 15.9 % L=11.7 H=15.5 H %GRAN 76.7 % L=40.0 H=70.0 30142-3 LOINC H %LYMPH 17.9 % L=20.0 H=45.0 736-9 LOINC L %MONO 5.1 % L=2.0 H=10.0 37387-8 LOINC %EOS 0.0 % L=0.0 H=6.0 713-8 LOINC %BASO 0.0 % L=0.0 H=3.0 706-2 LOINC #NEUT 2.6 10^3uL L=1.9 H=7.6 55022-7 LOINC #LYMPH 0.6 10^3uL L=0.9 H=4.9 76606-6 LOINC L #MONO 0.2 10^3uL L=0.1 H=0.9 97919-1 LOINC #EOS 0.0 10^3uL L=0.0 H=0.6 712-0 LOINC #BASO 0.00 10^3uL L=0.00 H=0.10 13806-4 LOINC #IM GRANS 0.0 10^3uL L=0.0 H=7.0 93879-8 LOINC %IM GRANS 0.3 % L=0.0 H=5.0 82121-7 LOINC %NRB 0.0 L=0.0 H=0.2 34833-5 LOINC #NRB 0.000 L=0.000 H=0.012 02715-5 LOINC MANUAL DIFF NOT INDICATED SEG L=40 H=70 BANDS L=0 H=6 LYMPH L=20 H=45 MONO L=2.0 H=10.0 EOS L=0 H=6 713-8 LOINC BASO L=0 H=3 IM GRANS L=0 H=5 METAS L=0 H=0 MYELOS L=0 H=0 PROMYELOS L=0 H=0 BLASTS L=0 H=0 74529-0 LOINC NUNU LYMPHS L=0.00 H=5.00 SMUDGE CELLS L=0 H=0 NRBC L=0.0 H=0.0 PLTS NEUT # L=1.9 H=7.6 LYMPH # L=0.9 H=4.9 MONO # L=0.1 H=0.9 EOS # L=0.0 H=0.6 712-0 LOINC BASO # L=0.0 H=0.1 36604-6 LOINC RBC MORPH NOT INDICATED Social History Type Status Start Date End Date Code Code Syst em Smoking History Unknown if ever smoked [id number] Sex Female Medications Medication Start Date End Date Route Frequency Dose Code Code System Medication Instructions Home Meds OXcarbazepine 150MG Oral Tablet 10/28/2022 Unknown ORAL TWICE A DAY 150 MILLIGRAMS 299634 RxNorm TAKE 150 MILLIGRAMS ORAL TWICE A DAY oxyCODONE HCl 5MG Oral Tablet 10/28/2022 Unknown ORAL NEEDED EVERY 6 HOURS 5 MILLIGRAMS 4277173 RxNorm TAKE 5 MILLIGRAMS ORAL NEEDED EVERY 6 HOURS Acetaminophen 325MG Oral Tablet 12/04/2022 Unknown ORAL NEEDED EVERY 4 HOURS 650 MILLIGRAMS 068833 RxNorm TAKE 650 MILLIGRAMS ORAL NEEDED EVERY 4 HOURS Atorvastatin Calcium 40MG Oral Tablet 12/04/2022 Unknown ORAL AT BEDTIME 40 MILLIGRAMS 156097 RxNorm TAKE 40 MILLIGRAMS ORAL AT BEDTIME Bisacodyl 10MG Rectal Suppository 12/04/2022 Unknown RECTAL NEEDED DAILY 10 MILLIGRAMS 258786 RxNorm INSERT 10 MILLIGRAMS RECTAL NEEDED DAILY Budesonide 0.5MG/2ML Inhalation Suspension 12/04/2022 Unknown NEBULIZ ER RESP DAILY 0.5 MILLIGRAMS 360280 RxNorm 0.5 MILLIGRAMS NEBULIZER RESP DAILY Cetirizine HCl 10MG Oral Tablet 12/04/2022 Unknown ORAL ONCE A DAY 10 MILLIGRAMS 1013898 RxNorm TAKE 10 MILLIGRAMS ORAL ONCE A DAY Ferrous Sulfate 325MG Oral Tablet 12/04/2022 Unknown ORAL EVERY OTHER DAY 325 MILLIGRAMS 805733 RxNorm TAKE 325 MILLIGRAMS ORAL EVERY OTHER DAY Furosemide 40MG Oral Tablet 12/04/2022 Unknown ORAL ONCE A DAY 40 MILLIGRAMS 274866 RxNorm TAKE 40 MILLIGRAMS ORAL ONCE A DAY Gabapentin 300MG Oral Capsule 12/04/2022 Unknown ORAL THREE TIMES A DAY 300 MILLIGRAMS 388335 RxNorm TAKE 300 MILLIGRAMS ORAL THREE TIMES A DAY Ipratropium [place] rol Sulfate 0.5MG/3ML-3MG/ 3ML Inhalation Solution 12/04/2022 Unknown NEBULIZ ER NEEDED EVERY 2 HOURS 1 unit(s) 8746577 RxNorm 1 EACH NEBULIZER NEEDED EVERY 2 HOURS Melatonin 5 MG Oral Tablet 12/04/2022 Unknown ORAL AT BEDTIME 5 MG RxNorm TAKE 5 MG ORAL AT BEDTIME Milk Of Magnesia 2400MG/30ML Oral Suspension 12/04/2022 Unknown ORAL PRN Q72H 30 mL 358079 RxNorm TAKE 30 m L ORAL PRN Q72H Oxymetazoline HCl 0.05% Nasal [place] 12/04/2022 Unknown NOSTRIL BOTH NEEDED EVERY 12 HOURS 2 unit(s) 6216329 RxNorm SPRAY IN 2 EACH NOSTRIL BOTH NEEDED EVERY 12 HOURS Polyethylene Glycol 3350 17 GM/1 Packet Oral Packet 12/04/2022 Unknown ORAL ONCE A DAY 17 GRAM 856571 RxNorm TAKE 17 GRAM ORAL ONCE A DAY Sennosides 8.6MG Oral Tablet 12/04/2022 Unknown ORAL TWICE A DAY 17.2 MILLIGRAMS 272920 RxNorm TAKE 17.2 MILLIGRAMS ORAL TWICE A DAY Sertraline HCl 100MG Oral Tablet 12/04/2022 Unknown ORAL ONCE A DAY 200 MILLIGRAMS 848691 RxNorm TAKE 200 MILLIGRAMS ORAL ONCE A DAY Sodium Chloride Nasal Mist 0.65% Nasal [place] 12/04/2022 Unknown NOSTRIL BOTH TWICE A DAY 1 unit(s) RxNorm SPRAY IN 1 EACH NOSTRIL BOTH TWICE A DAY Xarelto 20MG Oral Tablet 12/04/2022 Unknown ORAL ONCE A DAY 20 MILLIGRAMS 2682501 RxNorm TAKE 20 MILLIGRAMS ORAL ONCE A DAY budesonide-for moterol fumarate 80MCG-4.5MCG/1 Actuat Inhalation Aerosol Liquid 12/04/2022 Unknown INHALAT ION TWICE A DAY 2 unit(s) 4674391 RxNorm 2 EACH INHALATION TWICE A DAY levETIRAcetam 500MG Oral Tablet 12/04/2022 Unknown ORAL TWICE A DAY 500 MILLIGRAMS 008121 RxNorm TAKE 500 MILLIGRAMS ORAL TWICE A DAY Protonix 40 MG Oral Tablet, Delayed Release 12/04/2022 Unknown BY MOUTH 1 TABLET 626646 RxNorm TAKE 1 TABLET BY MOUTH Assessment [...] Status Code Code System METABOLIC ENCEPHALOPATHY active 51917 000 SNOMED-CT METABOLIC ALKALOSIS active 6350493 SNOMED-CT COPD WITH EXACERBATION active 3705647 07 SNOMED-CT BACTEREMIA CAUSED BY GRAM-POSITIVE BACTERIA active 167370181287 SNOME D-CT UTI active 74684663 SNOMED-CT DEHYDRATION active 93132260 SNOMED-C T HYPOMAGNESEMIA active 235646887 SNOME D-CT EPILEPSY active 94496994 SNOMED-CT Allergies and Adverse Reactions Allergy Substance Reaction Severity Start Date Concern Status Co de Code System PENICILLIN Active Plan of Treatment Song Follow Up Visit 09/22/2023 Encounters Encounter Diagnosis Start Date Code Code Sys tem Other fdc (current) drug therapy 04/13/2024 SNOMED-CT Personal Care Team Section Performer Name Performer Role Active Date Inactive MICHEAL Krishnamurthy PCP - Primary care physician 2022-09-24 2023-06-03 JACINTA CUNNINGHAM PCP - Primary care physician 2023-07-14
--- OUTSIDE RECORDS SUMMARY | 2025-09-02 10:25 | XMS_ITS ---
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 Phone OCTAVIO Mcguire Attending Unavailable [...] COMPREHENSIVE METABOLIC PANE L - Collect Date/Time: 08/04/2023 07:55 [facility] ID: [id number] [address] [place] [address], [phone] LOINC: 21646-7 Test Value Unit Reference Range Code Code System Flag FASTING YES BUN 37 mg/dL L=7 H=20 3094-0 LOINC H CREATININE 1.90 mg/dL L=0.52 H=1.04 2160-0 LOINC H GLUCOSE 133 mg/dL L=74 H=106 2345-7 LOINC H SODIUM 141 mmol/L L=132 H=144 2951-2 LOINC POTASSIUM 3.9 mmol/L L=3.5 H=5.1 2823-3 LOINC CHLORIDE 99 mmol/L L=98 H=107 2075-0 LOINC CO2 36.0 mmol/L L=22.0 H=30.0 2028-9 LOINC H ANION GAP 10 L=10 H=20 92533-2 LOINC OSMOLALITY 303 mOs/kG L=280 H=296 97297-9 LOINC H BUN/CREAT 19.5 3097-3 LOINC CALCIUM 8.7 mg/dL L=8.3 H=10.5 91637-6 LOINC AST 18 U/L L=15 H=46 1920-8 LOINC ALT 17 U/L L=9 H=72 1742-6 LOINC ALKALINE PHOS 82 U/L L=38 H=126 6768-6 LOINC TOTAL BILI 0.3 mg/dL L=0.2 H=1.3 1975-2 LOINC ALBUMIN 3.3 G/dL L=3.5 H=5.0 1751-7 LOINC L TOTAL PROTEIN 6.2 g/L L=6.3 H=8.2 2885-2 LOINC L A/G RATIO 1.1 22814-0 LOINC AGE 63 78527-5 LOINC eGFR NON-AFR 28 ml/min eGFR AFR AMER 34 ml/min CBC W/ DIFF - Collect Date/T pili: 08/04/2023 07:55 [facility] ID: [id number] [address] [place], [place], [phone] LOINC: 86420-9 Test Value Unit Reference Range Code Code System Flag WBC 3.1 10^3uL L=4.8 H=10.8 L RBC 2.72 10^6uL L=4.20 H=5.40 L HEMOGLOBIN 7.5 g/dL L=12.0 H=16.0 718-7 LOINC LL CALLED TO: INDU URIAS AT: 1126 BY: JLR HEMATOCRIT 25.4 VOL% L=37.0 H=47.0 4544-3 LOINC L MCV 93.4 fL L=81.0 H=99.0 MCH 27.6 pg L=27.0 H=32.0 MCHC 29.5 g/dL L=32.0 H=36.0 L PLATELETS 106 10^3uL L=100 H=400 16277-3 LOINC RDW 14.6 % L=11.7 H=15.5 %GRAN 76.6 % L=40.0 H=70.0 56247-5 LOINC H %LYMPH 15.7 % L=20.0 H=45.0 736-9 LOINC L %MONO 7.7 % L=2.0 H=10.0 81557-6 LOINC %EOS 0.0 % L=0.0 H=6.0 713-8 LOINC %BASO 0.0 % L=0.0 H=3.0 706-2 LOINC #NEUT 2.4 10^3uL L=1.9 H=7.6 94257-8 LOINC #LYMPH 0.5 10^3uL L=0.9 H=4.9 48847-8 LOINC L #MONO 0.2 10^3uL L=0.1 H=0.9 07254-7 LOINC #EOS 0.0 10^3uL L=0.0 H=0.6 712-0 LOINC #BASO 0.00 10^3uL L=0.00 H=0.10 72829-7 LOINC #IM GRANS 0.0 10^3uL L=0.0 H=7.0 98550-1 LOINC %IM GRANS 0.0 % L=0.0 H=5.0 66036-1 LOINC %NRB 0.0 L=0.0 H=0.2 30054-2 LOINC #NRB 0.000 L=0.000 H=0.012 80671-9 LOINC MANUAL DIFF NOT INDICATED RBC MORPH NOT INDICATED Social History Type Status Start Date End Date Code Code Syst em Smoking History Unknown if ever smoked [address] Sex Female Medications Medication Start Date End Date Route Frequency Dose Code Code System Medication Instructions Home Meds OXcarbazepine 150MG Oral Tablet 10/28/2022 Unknown ORAL TWICE A DAY 150 MILLIGRAMS 401337 RxNorm TAKE 150 MILLIGRAMS ORAL TWICE A DAY oxyCODONE HCl 5MG Oral Tablet 10/28/2022 Unknown ORAL NEEDED EVERY 6 HOURS 5 MILLIGRAMS 9258093 RxNorm TAKE 5 MILLIGRAMS ORAL NEEDED EVERY 6 HOURS Acetaminophen 325MG Oral Tablet 12/04/2022 Unknown ORAL NEEDED EVERY 4 HOURS 650 MILLIGRAMS 317258 RxNorm TAKE 650 MILLIGRAMS ORAL NEEDED EVERY 4 HOURS Atorvastatin Calcium 40MG Oral Tablet 12/04/2022 Unknown ORAL AT BEDTIME 40 MILLIGRAMS 209862 RxNorm TAKE 40 MILLIGRAMS ORAL AT BEDTIME Bisacodyl 10MG Rectal Suppository 12/04/2022 Unknown RECTAL NEEDED DAILY 10 MILLIGRAMS 912537 RxNorm INSERT 10 MILLIGRAMS RECTAL NEEDED DAILY Budesonide 0.5MG/2ML Inhalation Suspension 12/04/2022 Unknown NEBULIZ ER RESP DAILY 0.5 MILLIGRAMS 941059 RxNorm 0.5 MILLIGRAMS NEBULIZER RESP DAILY Cetirizine HCl 10MG Oral Tablet 12/04/2022 Unknown ORAL ONCE A DAY 10 MILLIGRAMS 1975309 RxNorm TAKE 10 MILLIGRAMS ORAL ONCE A DAY Ferrous Sulfate 325MG Oral Tablet 12/04/2022 Unknown ORAL EVERY OTHER DAY 325 MILLIGRAMS 171192 RxNorm TAKE 325 MILLIGRAMS ORAL EVERY OTHER DAY Furosemide 40MG Oral Tablet 12/04/2022 Unknown ORAL ONCE A DAY 40 MILLIGRAMS 842700 RxNorm TAKE 40 MILLIGRAMS ORAL ONCE A DAY Gabapentin 300MG Oral Capsule 12/04/2022 Unknown ORAL THREE TIMES A DAY 300 MILLIGRAMS 301728 RxNorm TAKE 300 MILLIGRAMS ORAL THREE TIMES A DAY Ipratropium [place] rol Sulfate 0.5MG/3ML-3MG/ 3ML Inhalation Solution 12/04/2022 Unknown NEBULIZ ER NEEDED EVERY 2 HOURS 1 unit(s) 3538564 RxNorm 1 EACH NEBULIZER NEEDED EVERY 2 HOURS Melatonin 5 MG Oral Tablet 12/04/2022 Unknown ORAL AT BEDTIME 5 MG RxNorm TAKE 5 MG ORAL AT BEDTIME Milk Of Magnesia 2400MG/30ML Oral Suspension 12/04/2022 Unknown ORAL PRN Q72H 30 mL 345536 RxNorm TAKE 30 m L ORAL PRN Q72H Oxymetazoline HCl 0.05% Nasal [place] 12/04/2022 Unknown NOSTRIL BOTH NEEDED EVERY 12 HOURS 2 unit(s) 8205225 RxNorm SPRAY IN 2 EACH NOSTRIL BOTH NEEDED EVERY 12 HOURS Polyethylene Glycol 3350 17 GM/1 Packet Oral Packet 12/04/2022 Unknown ORAL ONCE A DAY 17 GRAM 561162 RxNorm TAKE 17 GRAM ORAL ONCE A DAY Sennosides 8.6MG Oral Tablet 12/04/2022 Unknown ORAL TWICE A DAY 17.2 MILLIGRAMS 327043 RxNorm TAKE 17.2 MILLIGRAMS ORAL TWICE A DAY Sertraline HCl 100MG Oral Tablet 12/04/2022 Unknown ORAL ONCE A DAY 200 MILLIGRAMS 626359 RxNorm TAKE 200 MILLIGRAMS ORAL ONCE A DAY Sodium Chloride Nasal Mist 0.65% Nasal [place] 12/04/2022 Unknown NOSTRIL BOTH TWICE A DAY 1 unit(s) RxNorm SPRAY IN 1 EACH NOSTRIL BOTH TWICE A DAY Xarelto 20MG Oral Tablet 12/04/2022 Unknown ORAL ONCE A DAY 20 MILLIGRAMS 8604158 RxNorm TAKE 20 MILLIGRAMS ORAL ONCE A DAY budesonide-for moterol fumarate 80MCG-4.5MCG/1 Actuat Inhalation Aerosol Liquid 12/04/2022 Unknown INHALAT ION TWICE A DAY 2 unit(s) 4077335 RxNorm 2 EACH INHALATION TWICE A DAY levETIRAcetam 500MG Oral Tablet 12/04/2022 Unknown ORAL TWICE A DAY 500 MILLIGRAMS 476995 RxNorm TAKE 500 MILLIGRAMS ORAL TWICE A DAY Protonix 40 MG Oral Tablet, Delayed Release 12/04/2022 Unknown BY MOUTH 1 TABLET 697462 RxNorm TAKE 1 TABLET BY MOUTH Assessment [...] Status Code Code System METABOLIC ENCEPHALOPATHY active 39886 000 SNOMED-CT METABOLIC ALKALOSIS active 2973577 SNOMED-CT COPD WITH EXACERBATION active 7149354 07 SNOMED-CT BACTEREMIA CAUSED BY GRAM-POSITIVE BACTERIA active 388546563901 SNOME D-CT UTI active 84405106 SNOMED-CT DEHYDRATION active 86714179 SNOMED-C T HYPOMAGNESEMIA active 596204345 SNOME D-CT EPILEPSY active 62398967 SNOMED-CT Allergies and Adverse Reactions Allergy Substance Reaction Severity Start Date Concern Status Co de Code System PENICILLIN Active Plan of Treatment Song Follow Up Visit 09/22/2023 Encounters Encounter Diagnosis Start Date Code Code Sys tem Chronic kidney disease stage 3 08/04/2023 992566489 SNOMED-CT Personal Care Team Section Performer Name Performer Role Active Date Inactive MICHEAL Krishnamurthy PCP - Primary care physician 2022-09-24 2023-06-03 JACINTA CUNNINGHAM PCP - Primary care physician 2023-07-14
--- OUTSIDE RECORDS SUMMARY | 2025-09-02 10:25 | XMS_ITS ---
Author Organization Unknown Address [address] [place] [phone] Phone Care Team Providers Care Executive Advisor Name Role Phone OCTAVIO Mcguire Attending Unavailable [...] mcg/0.5 mL 08/27/2023 Completed 312 CVX Results H & H - Collect Date/Time: 0 04/27/2024 08:15 [facility] [address] [address] ID: [id number] [address] [place], [place], [phone] LOINC: 22716-0 Test Value Unit Reference Range Code Code System Flag HEMOGLOBIN 8.3 g/dL L=12.0 H=16.0 718-7 LOINC L HEMATOCRIT 26.9 VOL% L=37.0 H=47.0 4544-3 LOINC L Social History Type Status Start Date End Date Code Code Syst em Smoking History Unknown if ever smoked [id number] Sex Female Medications Medication Start Date End Date Route Frequency Dose Code Code System Medication Instructions Home Meds OXcarbazepine 150MG Oral Tablet 10/28/2022 Unknown ORAL TWICE A DAY 150 MILLIGRAMS 909658 RxNorm TAKE 150 MILLIGRAMS ORAL TWICE A DAY oxyCODONE HCl 5MG Oral Tablet 10/28/2022 Unknown ORAL NEEDED EVERY 6 HOURS 5 MILLIGRAMS 9978568 RxNorm TAKE 5 MILLIGRAMS ORAL NEEDED EVERY 6 HOURS Acetaminophen 325MG Oral Tablet 12/04/2022 Unknown ORAL NEEDED EVERY 4 HOURS 650 MILLIGRAMS 180937 RxNorm TAKE 650 MILLIGRAMS ORAL NEEDED EVERY 4 HOURS Atorvastatin Calcium 40MG Oral Tablet 12/04/2022 Unknown ORAL AT BEDTIME 40 MILLIGRAMS 105097 RxNorm TAKE 40 MILLIGRAMS ORAL AT BEDTIME Bisacodyl 10MG Rectal Suppository 12/04/2022 Unknown RECTAL NEEDED DAILY 10 MILLIGRAMS 437446 RxNorm INSERT 10 MILLIGRAMS RECTAL NEEDED DAILY Budesonide 0.5MG/2ML Inhalation Suspension 12/04/2022 Unknown NEBULIZ ER RESP DAILY 0.5 MILLIGRAMS 885611 RxNorm 0.5 MILLIGRAMS NEBULIZER RESP DAILY Cetirizine HCl 10MG Oral Tablet 12/04/2022 Unknown ORAL ONCE A DAY 10 MILLIGRAMS 6808885 RxNorm TAKE 10 MILLIGRAMS ORAL ONCE A DAY Ferrous Sulfate 325MG Oral Tablet 12/04/2022 Unknown ORAL EVERY OTHER DAY 325 MILLIGRAMS 928934 RxNorm TAKE 325 MILLIGRAMS ORAL EVERY OTHER DAY Furosemide 40MG Oral Tablet 12/04/2022 Unknown ORAL ONCE A DAY 40 MILLIGRAMS 073875 RxNorm TAKE 40 MILLIGRAMS ORAL ONCE A DAY Gabapentin 300MG Oral Capsule 12/04/2022 Unknown ORAL THREE TIMES A DAY 300 MILLIGRAMS 536528 RxNorm TAKE 300 MILLIGRAMS ORAL THREE TIMES A DAY Ipratropium [place] rol Sulfate 0.5MG/3ML-3MG/ 3ML Inhalation Solution 12/04/2022 Unknown NEBULIZ ER NEEDED EVERY 2 HOURS 1 unit(s) 9426698 RxNorm 1 EACH NEBULIZER NEEDED EVERY 2 HOURS Melatonin 5 MG Oral Tablet 12/04/2022 Unknown ORAL AT BEDTIME 5 MG RxNorm TAKE 5 MG ORAL AT BEDTIME Milk Of Magnesia 2400MG/30ML Oral Suspension 12/04/2022 Unknown ORAL PRN Q72H 30 mL 649565 RxNorm TAKE 30 m L ORAL PRN Q72H Oxymetazoline HCl 0.05% Nasal [place] 12/04/2022 Unknown NOSTRIL BOTH NEEDED EVERY 12 HOURS 2 unit(s) 5565650 RxNorm SPRAY IN 2 EACH NOSTRIL BOTH NEEDED EVERY 12 HOURS Polyethylene Glycol 3350 17 GM/1 Packet Oral Packet 12/04/2022 Unknown ORAL ONCE A DAY 17 GRAM 164486 RxNorm TAKE 17 GRAM ORAL ONCE A DAY Sennosides 8.6MG Oral Tablet 12/04/2022 Unknown ORAL TWICE A DAY 17.2 MILLIGRAMS 636422 RxNorm TAKE 17.2 MILLIGRAMS ORAL TWICE A DAY Sertraline HCl 100MG Oral Tablet 12/04/2022 Unknown ORAL ONCE A DAY 200 MILLIGRAMS 462174 RxNorm TAKE 200 MILLIGRAMS ORAL ONCE A DAY Sodium Chloride Nasal Mist 0.65% Nasal [place] 12/04/2022 Unknown NOSTRIL BOTH TWICE A DAY 1 unit(s) RxNorm SPRAY IN 1 EACH NOSTRIL BOTH TWICE A DAY Xarelto 20MG Oral Tablet 12/04/2022 Unknown ORAL ONCE A DAY 20 MILLIGRAMS 5503034 RxNorm TAKE 20 MILLIGRAMS ORAL ONCE A DAY budesonide-for moterol fumarate 80MCG-4.5MCG/1 Actuat Inhalation Aerosol Liquid 12/04/2022 Unknown INHALAT ION TWICE A DAY 2 unit(s) 4165484 RxNorm 2 EACH INHALATION TWICE A DAY levETIRAcetam 500MG Oral Tablet 12/04/2022 Unknown ORAL TWICE A DAY 500 MILLIGRAMS 433782 RxNorm TAKE 500 MILLIGRAMS ORAL TWICE A DAY Protonix 40 MG Oral Tablet, Delayed Release 12/04/2022 Unknown BY MOUTH 1 TABLET 941736 RxNorm TAKE 1 TABLET BY MOUTH Assessment [...] Status Code Code System METABOLIC ENCEPHALOPATHY active 06582 000 SNOMED-CT METABOLIC ALKALOSIS active 9040136 SNOMED-CT COPD WITH EXACERBATION active 3289865 07 SNOMED-CT BACTEREMIA CAUSED BY GRAM-POSITIVE BACTERIA active 671977531460 SNOME D-CT UTI active 74296179 SNOMED-CT DEHYDRATION active 69452079 SNOMED-C T HYPOMAGNESEMIA active 438357516 SNOME D-CT EPILEPSY active 86573158 SNOMED-CT Allergies and Adverse Reactions Allergy Substance Reaction Severity Start Date Concern Status Co de Code System PENICILLIN Active Plan of Treatment Song Follow Up Visit 09/22/2023 Encounters Encounter Diagnosis Start Date Code Code Sys tem Anemia, unspecified 04/27/2024 SNOMED-C T Personal Care Team Section Performer Name Performer Role Active Date Inactive MICHEAL Krishnamurthy PCP - Primary care physician 2022-09-24 2023-06-03 JACINTA CUNNINGHAM PCP - Primary care physician 2023-07-14
--- OUTSIDE RECORDS SUMMARY | 2025-09-02 10:25 | XMS_ITS ---
Author Organization Unknown Address [address] [place] [phone] Phone Care Team Providers Care Switchgear Repairer Name Role Phone OCTAVIO Mcguire Attending Unavailable [...] mcg/0.5 mL 08/27/2023 Completed 312 CVX Results HEMOGLOBIN - Collect Date/Ti me: 04/25/2024 07:50 [facility] ID: [id number] [address] [place], [place], [phone] LOINC: 718-7 Test Value Unit Reference Range Code Code System Flag HEMOGLOBIN 8.4 g/dL L=12.0 H=16.0 718-7 LOINC L Social History Type Status Start Date End Date Code Code Syst em Smoking History Unknown if ever smoked [address] Sex Female Medications Medication Start Date End Date Route Frequency Dose Code Code System Medication Instructions Home Meds OXcarbazepine 150MG Oral Tablet 10/28/2022 Unknown ORAL TWICE A DAY 150 MILLIGRAMS 859444 RxNorm TAKE 150 MILLIGRAMS ORAL TWICE A DAY oxyCODONE HCl 5MG Oral Tablet 10/28/2022 Unknown ORAL NEEDED EVERY 6 HOURS 5 MILLIGRAMS 8135453 RxNorm TAKE 5 MILLIGRAMS ORAL NEEDED EVERY 6 HOURS Acetaminophen 325MG Oral Tablet 12/04/2022 Unknown ORAL NEEDED EVERY 4 HOURS 650 MILLIGRAMS 625183 RxNorm TAKE 650 MILLIGRAMS ORAL NEEDED EVERY 4 HOURS Atorvastatin Calcium 40MG Oral Tablet 12/04/2022 Unknown ORAL AT BEDTIME 40 MILLIGRAMS 908712 RxNorm TAKE 40 MILLIGRAMS ORAL AT BEDTIME Bisacodyl 10MG Rectal Suppository 12/04/2022 Unknown RECTAL NEEDED DAILY 10 MILLIGRAMS 816882 RxNorm INSERT 10 MILLIGRAMS RECTAL NEEDED DAILY Budesonide 0.5MG/2ML Inhalation Suspension 12/04/2022 Unknown NEBULIZ ER RESP DAILY 0.5 MILLIGRAMS 139044 RxNorm 0.5 MILLIGRAMS NEBULIZER RESP DAILY Cetirizine HCl 10MG Oral Tablet 12/04/2022 Unknown ORAL ONCE A DAY 10 MILLIGRAMS 3936979 RxNorm TAKE 10 MILLIGRAMS ORAL ONCE A DAY Ferrous Sulfate 325MG Oral Tablet 12/04/2022 Unknown ORAL EVERY OTHER DAY 325 MILLIGRAMS 897892 RxNorm TAKE 325 MILLIGRAMS ORAL EVERY OTHER DAY Furosemide 40MG Oral Tablet 12/04/2022 Unknown ORAL ONCE A DAY 40 MILLIGRAMS 587555 RxNorm TAKE 40 MILLIGRAMS ORAL ONCE A DAY Gabapentin 300MG Oral Capsule 12/04/2022 Unknown ORAL THREE TIMES A DAY 300 MILLIGRAMS 398680 RxNorm TAKE 300 MILLIGRAMS ORAL THREE TIMES A DAY Ipratropium [place] rol Sulfate 0.5MG/3ML-3MG/ 3ML Inhalation Solution 12/04/2022 Unknown NEBULIZ ER NEEDED EVERY 2 HOURS 1 unit(s) 2409049 RxNorm 1 EACH NEBULIZER NEEDED EVERY 2 HOURS Melatonin 5 MG Oral Tablet 12/04/2022 Unknown ORAL AT BEDTIME 5 MG RxNorm TAKE 5 MG ORAL AT BEDTIME Milk Of Magnesia 2400MG/30ML Oral Suspension 12/04/2022 Unknown ORAL PRN Q72H 30 mL 411565 RxNorm TAKE 30 m L ORAL PRN Q72H Oxymetazoline HCl 0.05% Nasal [place] 12/04/2022 Unknown NOSTRIL BOTH NEEDED EVERY 12 HOURS 2 unit(s) 7625515 RxNorm SPRAY IN 2 EACH NOSTRIL BOTH NEEDED EVERY 12 HOURS Polyethylene Glycol 3350 17 GM/1 Packet Oral Packet 12/04/2022 Unknown ORAL ONCE A DAY 17 GRAM 162193 RxNorm TAKE 17 GRAM ORAL ONCE A DAY Sennosides 8.6MG Oral Tablet 12/04/2022 Unknown ORAL TWICE A DAY 17.2 MILLIGRAMS 048693 RxNorm TAKE 17.2 MILLIGRAMS ORAL TWICE A DAY Sertraline HCl 100MG Oral Tablet 12/04/2022 Unknown ORAL ONCE A DAY 200 MILLIGRAMS 959635 RxNorm TAKE 200 MILLIGRAMS ORAL ONCE A DAY Sodium Chloride Nasal Mist 0.65% Nasal [place] 12/04/2022 Unknown NOSTRIL BOTH TWICE A DAY 1 unit(s) RxNorm SPRAY IN 1 EACH NOSTRIL BOTH TWICE A DAY Xarelto 20MG Oral Tablet 12/04/2022 Unknown ORAL ONCE A DAY 20 MILLIGRAMS 2416195 RxNorm TAKE 20 MILLIGRAMS ORAL ONCE A DAY budesonide-for moterol fumarate 80MCG-4.5MCG/1 Actuat Inhalation Aerosol Liquid 12/04/2022 Unknown INHALAT ION TWICE A DAY 2 unit(s) 1989888 RxNorm 2 EACH INHALATION TWICE A DAY levETIRAcetam 500MG Oral Tablet 12/04/2022 Unknown ORAL TWICE A DAY 500 MILLIGRAMS 789398 RxNorm TAKE 500 MILLIGRAMS ORAL TWICE A DAY Protonix 40 MG Oral Tablet, Delayed Release 12/04/2022 Unknown BY MOUTH 1 TABLET 100329 RxNorm TAKE 1 TABLET BY MOUTH Assessment [...] Status Code Code System METABOLIC ENCEPHALOPATHY active 36597 000 SNOMED-CT METABOLIC ALKALOSIS active 3221471 SNOMED-CT COPD WITH EXACERBATION active 5975003 07 SNOMED-CT BACTEREMIA CAUSED BY GRAM-POSITIVE BACTERIA active 066807468816 SNOME D-CT UTI active 81374408 SNOMED-CT DEHYDRATION active 29799932 SNOMED-C T HYPOMAGNESEMIA active 128847701 SNOME D-CT EPILEPSY active 60162478 SNOMED-CT Allergies and Adverse Reactions Allergy Substance Reaction Severity Start Date Concern Status Co de Code System PENICILLIN Active Plan of Treatment Song Follow Up Visit 09/22/2023 Encounters Encounter Diagnosis Start Date Code Code Sys tem Anemia, unspecified 04/25/2024 SNOMED-C T Personal Care Team Section Performer Name Performer Role Active Date Inactive MICHEAL Krishnamurthy PCP - Primary care physician 2022-09-24 2023-06-03 JACINTA CUNNINGHAM PCP - Primary care physician 2023-07-14
--- OUTSIDE RECORDS SUMMARY | 2025-09-02 10:26 | XMS_ITS ---
Author Organization Unknown Address [address] [place] [phone] Phone Care Team Providers Care Oncology Transplant Network Manager Name Role Phone OCTAVIO Mcguire Attending Unavailable [...] mcg/0.5 mL 08/27/2023 Completed 312 CVX Results URINALYSIS w/Microscopy/C&S if indicated - Collect Date/Time: 09/17/2023 15:48 [facility] ID: [id number] [address] [place] [address], [phone] LOINC: 70281-4 Test Value Unit Reference Range Code Code System Flag UR SOURCE UNKNOWN 64411-9 LOINC COLOR YELLOW YELLOW 5778-6 LOINC CLARITY CLOUDY CLEAR 19800-4 LOINC SPEC GRAVITY 1.010 1.000-1.030 5811-5 LOINC PH 6.5 5.0 - 6.5 5803-2 LOINC [place] EST 2+ NEGATIVE 5799-2 LOINC A NITRATE NEGATIVE NEGATIVE PROTEIN 1+ NEGATIVE 5804-0 LOINC A GLUCOSE NEGATIVE NEGATIVE 33350-8 LOINC KETONES NEGATIVE NEGATIVE 53477-4 LOINC UROBILINOGEN 0.2 NEGATIVE 5818-0 LOINC BILIRUBIN NEGATIVE NEGATIVE 89881-4 LOINC BLOOD 1+ NEGATIVE 79321-5 LOINC WBC >50 0 - 2 77092-2 LOINC A RBC 0-2 0 - 2 95921-7 LOINC EPITHELIAL RARE RARE-FEW 24014-3 LOINC BACTERIA 2+ NONE SEEN 65369-1 LOINC A MUCUS NONE SEEN NONE SEEN 8247-9 LOINC YEAST NOT PRESENT NOT PRESENT 78822-6 LOINC CASTS NONE SEEN 90528-0 LOINC CRYSTALS NONE SEEN 37356-1 LOINC CULTURE? YES 8251-1 LOINC DIAGNOSIS ABN LAB RESU COMPREHENSIVE METABOLIC PANE L - Collect Date/Time: 09/17/2023 07:40 [facility] ID: [id number] [address] [place], [place], [phone] LOINC: 26166-8 Test Value Unit Reference Range Code Code System Flag FASTING YES BUN 44 mg/dL L=7 H=20 3094-0 LOINC H CREATININE 2.30 mg/dL L=0.52 H=1.04 2160-0 LOINC H GLUCOSE 113 mg/dL L=74 H=106 2345-7 LOINC H SODIUM 142 mmol/L L=132 H=144 2951-2 LOINC POTASSIUM 3.4 mmol/L L=3.5 H=5.1 2823-3 LOINC L CHLORIDE 98 mmol/L L=98 H=107 2075-0 LOINC CO2 36.0 mmol/L L=22.0 H=30.0 2028-9 LOINC H ANION GAP 11 L=10 H=20 56429-9 LOINC OSMOLALITY 306 mOs/kG L=280 H=296 60888-9 LOINC H BUN/CREAT 19.1 3097-3 LOINC CALCIUM 8.9 mg/dL L=8.3 H=10.5 94872-6 LOINC AST 18 U/L L=15 H=46 1920-8 LOINC ALT 13 U/L L=9 H=72 1742-6 LOINC ALKALINE PHOS 98 U/L L=38 H=126 6768-6 LOINC TOTAL BILI 0.3 mg/dL L=0.2 H=1.3 1975-2 LOINC ALBUMIN 3.4 G/dL L=3.5 H=5.0 1751-7 LOINC L TOTAL PROTEIN 6.8 g/L L=6.3 H=8.2 2885-2 LOINC A/G RATIO 1.0 24451-9 LOINC AGE 63 27760-3 LOINC eGFR NON-AFR 23 ml/min eGFR AFR AMER 28 ml/min CBC W/ DIFF - Collect Date/T pili: 09/17/2023 07:40 [facility] ID: [id number] [address] [place], [place], [phone] LOINC: 24989-6 Test Value Unit Reference Range Code Code System Flag WBC 4.7 10^3uL L=4.8 H=10.8 L RBC 3.09 10^6uL L=4.20 H=5.40 L HEMOGLOBIN 8.4 g/dL L=12.0 H=16.0 718-7 LOINC L HEMATOCRIT 28.3 VOL% L=37.0 H=47.0 4544-3 LOINC L MCV 91.6 fL L=81.0 H=99.0 MCH 27.2 pg L=27.0 H=32.0 MCHC 29.7 g/dL L=32.0 H=36.0 L PLATELETS 113 10^3uL L=100 H=400 94321-0 LOINC RDW 14.3 % L=11.7 H=15.5 %GRAN 76.3 % L=40.0 H=70.0 06657-0 LOINC H %LYMPH 17.3 % L=20.0 H=45.0 736-9 LOINC L %MONO 6.2 % L=2.0 H=10.0 15093-4 LOINC %EOS 0.0 % L=0.0 H=6.0 713-8 LOINC %BASO 0.0 % L=0.0 H=3.0 706-2 LOINC #NEUT 3.6 10^3uL L=1.9 H=7.6 64671-8 LOINC #LYMPH 0.8 10^3uL L=0.9 H=4.9 61476-2 LOINC L #MONO 0.3 10^3uL L=0.1 H=0.9 18645-4 LOINC #EOS 0.0 10^3uL L=0.0 H=0.6 712-0 LOINC #BASO 0.00 10^3uL L=0.00 H=0.10 07022-1 LOINC #IM GRANS 0.0 10^3uL L=0.0 H=7.0 50210-2 LOINC %IM GRANS 0.2 % L=0.0 H=5.0 63731-2 LOINC %NRB 0.0 L=0.0 H=0.2 57050-9 LOINC #NRB 0.000 L=0.000 H=0.012 86241-6 LOINC MANUAL DIFF NOT INDICATED RBC MORPH NOT INDICATED Social History Type Status Start Date End Date Code Code Syst em Smoking History Unknown if ever smoked [id number] Sex Female Medications Medication Start Date End Date Route Frequency Dose Code Code System Medication Instructions Home Meds OXcarbazepine 150MG Oral Tablet 10/28/2022 Unknown ORAL TWICE A DAY 150 MILLIGRAMS 519960 RxNorm TAKE 150 MILLIGRAMS ORAL TWICE A DAY oxyCODONE HCl 5MG Oral Tablet 10/28/2022 Unknown ORAL NEEDED EVERY 6 HOURS 5 MILLIGRAMS 2085689 RxNorm TAKE 5 MILLIGRAMS ORAL NEEDED EVERY 6 HOURS Acetaminophen 325MG Oral Tablet 12/04/2022 Unknown ORAL NEEDED EVERY 4 HOURS 650 MILLIGRAMS 784662 RxNorm TAKE 650 MILLIGRAMS ORAL NEEDED EVERY 4 HOURS Atorvastatin Calcium 40MG Oral Tablet 12/04/2022 Unknown ORAL AT BEDTIME 40 MILLIGRAMS 932291 RxNorm TAKE 40 MILLIGRAMS ORAL AT BEDTIME Bisacodyl 10MG Rectal Suppository 12/04/2022 Unknown RECTAL NEEDED DAILY 10 MILLIGRAMS 235746 RxNorm INSERT 10 MILLIGRAMS RECTAL NEEDED DAILY Budesonide 0.5MG/2ML Inhalation Suspension 12/04/2022 Unknown NEBULIZ ER RESP DAILY 0.5 MILLIGRAMS 214050 RxNorm 0.5 MILLIGRAMS NEBULIZER RESP DAILY Cetirizine HCl 10MG Oral Tablet 12/04/2022 Unknown ORAL ONCE A DAY 10 MILLIGRAMS 4341017 RxNorm TAKE 10 MILLIGRAMS ORAL ONCE A DAY Ferrous Sulfate 325MG Oral Tablet 12/04/2022 Unknown ORAL EVERY OTHER DAY 325 MILLIGRAMS 170187 RxNorm TAKE 325 MILLIGRAMS ORAL EVERY OTHER DAY Furosemide 40MG Oral Tablet 12/04/2022 Unknown ORAL ONCE A DAY 40 MILLIGRAMS 698627 RxNorm TAKE 40 MILLIGRAMS ORAL ONCE A DAY Gabapentin 300MG Oral Capsule 12/04/2022 Unknown ORAL THREE TIMES A DAY 300 MILLIGRAMS 355467 RxNorm TAKE 300 MILLIGRAMS ORAL THREE TIMES A DAY Ipratropium [place] rol Sulfate 0.5MG/3ML-3MG/ 3ML Inhalation Solution 12/04/2022 Unknown NEBULIZ ER NEEDED EVERY 2 HOURS 1 unit(s) 0419408 RxNorm 1 EACH NEBULIZER NEEDED EVERY 2 HOURS Melatonin 5 MG Oral Tablet 12/04/2022 Unknown ORAL AT BEDTIME 5 MG RxNorm TAKE 5 MG ORAL AT BEDTIME Milk Of Magnesia 2400MG/30ML Oral Suspension 12/04/2022 Unknown ORAL PRN Q72H 30 mL 107070 RxNorm TAKE 30 m L ORAL PRN Q72H Oxymetazoline HCl 0.05% Nasal [place] 12/04/2022 Unknown NOSTRIL BOTH NEEDED EVERY 12 HOURS 2 unit(s) 4554110 RxNorm SPRAY IN 2 EACH NOSTRIL BOTH NEEDED EVERY 12 HOURS Polyethylene Glycol 3350 17 GM/1 Packet Oral Packet 12/04/2022 Unknown ORAL ONCE A DAY 17 GRAM 633092 RxNorm TAKE 17 GRAM ORAL ONCE A DAY Sennosides 8.6MG Oral Tablet 12/04/2022 Unknown ORAL TWICE A DAY 17.2 MILLIGRAMS 459876 RxNorm TAKE 17.2 MILLIGRAMS ORAL TWICE A DAY Sertraline HCl 100MG Oral Tablet 12/04/2022 Unknown ORAL ONCE A DAY 200 MILLIGRAMS 615286 RxNorm TAKE 200 MILLIGRAMS ORAL ONCE A DAY Sodium Chloride Nasal Mist 0.65% Nasal [place] 12/04/2022 Unknown NOSTRIL BOTH TWICE A DAY 1 unit(s) RxNorm SPRAY IN 1 EACH NOSTRIL BOTH TWICE A DAY Xarelto 20MG Oral Tablet 12/04/2022 Unknown ORAL ONCE A DAY 20 MILLIGRAMS 8116075 RxNorm TAKE 20 MILLIGRAMS ORAL ONCE A DAY budesonide-for moterol fumarate 80MCG-4.5MCG/1 Actuat Inhalation Aerosol Liquid 12/04/2022 Unknown INHALAT ION TWICE A DAY 2 unit(s) 4882252 RxNorm 2 EACH INHALATION TWICE A DAY levETIRAcetam 500MG Oral Tablet 12/04/2022 Unknown ORAL TWICE A DAY 500 MILLIGRAMS 920490 RxNorm TAKE 500 MILLIGRAMS ORAL TWICE A DAY Protonix 40 MG Oral Tablet, Delayed Release 12/04/2022 Unknown BY MOUTH 1 TABLET 567134 RxNorm TAKE 1 TABLET BY MOUTH Assessment [...] Status Code Code System METABOLIC ENCEPHALOPATHY active 86509 000 SNOMED-CT METABOLIC ALKALOSIS active 3319105 SNOMED-CT COPD WITH EXACERBATION active 0695877 07 SNOMED-CT BACTEREMIA CAUSED BY GRAM-POSITIVE BACTERIA active 738787851293 SNOME D-CT UTI active 62692988 SNOMED-CT DEHYDRATION active 82420557 SNOMED-C T HYPOMAGNESEMIA active 075732820 SNOME D-CT EPILEPSY active 91780374 SNOMED-CT Allergies and Adverse Reactions Allergy Substance Reaction Severity Start Date Concern Status Co de Code System PENICILLIN Active Plan of Treatment Song Follow Up Visit 09/22/2023 Encounters Encounter Diagnosis Start Date Code Code Sys tem Chronic kidney disease, stage 3 unspecified 09/17/2023 SNOMED-CT Personal Care Team Section Performer Name Performer Role Active Date Inactive MICHEAL Krishnamurthy PCP - Primary care physician 2022-09-24 2023-06-03 JACINTA CUNNINGHAM PCP - Primary care physician 2023-07-14
--- OUTSIDE RECORDS SUMMARY | 2025-09-02 10:26 | XMS_ITS ---
Author Organization Unknown Address [address] [place] [phone] Phone Care Team Providers Care Finisher [employer] Name Role Phone OCTAVIO ARMAS Attending Unavailable OCTAVIO Mcguire Primary Unavailable Immunization [...] mcg/0.5 mL 08/27/2023 Completed 312 CVX Results BASIC METABOLIC PANEL - Mark ect Date/Time: 05/25/2024 08:10 [facility] ID: [id number] [address] [place] [address], [phone] LOINC: 32435-1 Test Value Unit Reference Range Code Code System Flag FASTING YES BUN 79 mg/dL L=7 H=20 3094-0 LOINC CREATININE 7.10 mg/dL L=0.52 H=1.04 2160-0 LOINC CALLED TO: RAMIREZ Dockery AT: 1021 BY: SD GLUCOSE 83 mg/dL L=74 H=106 2345-7 LOINC CALCIUM 9.0 mg/dL L=8.3 H=10.5 22764-9 LOINC SODIUM 139 mmol/L L=132 H=144 2951-2 LOINC POTASSIUM 3.9 mmol/L L=3.5 H=5.1 2823-3 LOINC CHLORIDE 101 mmol/L L=98 H=107 2075-0 LOINC CO2 23.0 mmol/L L=22.0 H=30.0 2028-9 LOINC ANION GAP 19 L=10 H=20 39334-9 LOINC BUN/CREAT 11.1 3097-3 LOINC AGE 64 75856-1 LOINC eGFR NON-AFR 6 ml/min eGFR AFR AMER 7 ml/min CBC W/ DIFF - Collect Date/T pili: 05/25/2024 08:10 [facility] ID: [id number] [address] [place], [place], [phone] LOINC: 61654-2 Test Value Unit Reference Range Code Code System Flag WBC 3.9 10^3uL L=4.8 H=10.8 L RBC 2.54 10^6uL L=4.20 H=5.40 L HEMOGLOBIN 7.7 g/dL L=12.0 H=16.0 718-7 LOINC LL CALLED TO: RAMIREZ DockeryBrayan @[facility] AT: 1012 05/25/24 BY: SDK HEMATOCRIT 23.4 VOL% L=37.0 H=47.0 4544-3 LOINC L MCV 92.1 fL L=81.0 H=99.0 MCH 30.3 pg L=27.0 H=32.0 MCHC 32.9 g/dL L=32.0 H=36.0 PLATELETS 120 10^3uL L=100 H=400 89489-7 LOINC RDW 14.2 % L=11.7 H=15.5 %GRAN 65.6 % L=40.0 H=70.0 93384-8 LOINC %LYMPH 23.5 % L=20.0 H=45.0 736-9 LOINC %MONO 10.1 % L=2.0 H=10.0 32827-5 LOINC H %EOS 0.0 % L=0.0 H=6.0 713-8 LOINC %BASO 0.3 % L=0.0 H=3.0 706-2 LOINC #NEUT 2.5 10^3uL L=1.9 H=7.6 27083-4 LOINC #LYMPH 0.9 10^3uL L=0.9 H=4.9 79037-3 LOINC #MONO 0.4 10^3uL L=0.1 H=0.9 44717-1 LOINC #EOS 0.0 10^3uL L=0.0 H=0.6 712-0 LOINC #BASO 0.01 10^3uL L=0.00 H=0.10 56098-0 LOINC #IM GRANS 0.0 10^3uL L=0.0 H=7.0 87865-6 LOINC %IM GRANS 0.5 % L=0.0 H=5.0 90428-0 LOINC %NRB 0.0 L=0.0 H=0.2 65068-4 LOINC #NRB 0.000 L=0.000 H=0.012 33518-7 LOINC MANUAL DIFF NOT INDICATED RBC MORPH NOT INDICATED Social History Type Status Start Date End Date Code Code Syst em Smoking History Unknown if ever smoked [id number] Sex Female Medications Medication Start Date End Date Route Frequency Dose Code Code System Medication Instructions Home Meds OXcarbazepine 150MG Oral Tablet 10/28/2022 Unknown ORAL TWICE A DAY 150 MILLIGRAMS 332635 RxNorm TAKE 150 MILLIGRAMS ORAL TWICE A DAY oxyCODONE HCl 5MG Oral Tablet 10/28/2022 Unknown ORAL NEEDED EVERY 6 HOURS 5 MILLIGRAMS 2345292 RxNorm TAKE 5 MILLIGRAMS ORAL NEEDED EVERY 6 HOURS Acetaminophen 325MG Oral Tablet 12/04/2022 Unknown ORAL NEEDED EVERY 4 HOURS 650 MILLIGRAMS 128506 RxNorm TAKE 650 MILLIGRAMS ORAL NEEDED EVERY 4 HOURS Atorvastatin Calcium 40MG Oral Tablet 12/04/2022 Unknown ORAL AT BEDTIME 40 MILLIGRAMS 195860 RxNorm TAKE 40 MILLIGRAMS ORAL AT BEDTIME Bisacodyl 10MG Rectal Suppository 12/04/2022 Unknown RECTAL NEEDED DAILY 10 MILLIGRAMS 045428 RxNorm INSERT 10 MILLIGRAMS RECTAL NEEDED DAILY Budesonide 0.5MG/2ML Inhalation Suspension 12/04/2022 Unknown NEBULIZ ER RESP DAILY 0.5 MILLIGRAMS 825229 RxNorm 0.5 MILLIGRAMS NEBULIZER RESP DAILY Cetirizine HCl 10MG Oral Tablet 12/04/2022 Unknown ORAL ONCE A DAY 10 MILLIGRAMS 8384782 RxNorm TAKE 10 MILLIGRAMS ORAL ONCE A DAY Ferrous Sulfate 325MG Oral Tablet 12/04/2022 Unknown ORAL EVERY OTHER DAY 325 MILLIGRAMS 207439 RxNorm TAKE 325 MILLIGRAMS ORAL EVERY OTHER DAY Furosemide 40MG Oral Tablet 12/04/2022 Unknown ORAL ONCE A DAY 40 MILLIGRAMS 238516 RxNorm TAKE 40 MILLIGRAMS ORAL ONCE A DAY Gabapentin 300MG Oral Capsule 12/04/2022 Unknown ORAL THREE TIMES A DAY 300 MILLIGRAMS 766646 RxNorm TAKE 300 MILLIGRAMS ORAL THREE TIMES A DAY Ipratropium [place] rol Sulfate 0.5MG/3ML-3MG/ 3ML Inhalation Solution 12/04/2022 Unknown NEBULIZ ER NEEDED EVERY 2 HOURS 1 unit(s) 8228184 RxNorm 1 EACH NEBULIZER NEEDED EVERY 2 HOURS Melatonin 5 MG Oral Tablet 12/04/2022 Unknown ORAL AT BEDTIME 5 MG RxNorm TAKE 5 MG ORAL AT BEDTIME Milk Of Magnesia 2400MG/30ML Oral Suspension 12/04/2022 Unknown ORAL PRN Q72H 30 mL 772698 RxNorm TAKE 30 m L ORAL PRN Q72H Oxymetazoline HCl 0.05% Nasal [place] 12/04/2022 Unknown NOSTRIL BOTH NEEDED EVERY 12 HOURS 2 unit(s) 9576139 RxNorm SPRAY IN 2 EACH NOSTRIL BOTH NEEDED EVERY 12 HOURS Polyethylene Glycol 3350 17 GM/1 Packet Oral Packet 12/04/2022 Unknown ORAL ONCE A DAY 17 GRAM 549797 RxNorm TAKE 17 GRAM ORAL ONCE A DAY Sennosides 8.6MG Oral Tablet 12/04/2022 Unknown ORAL TWICE A DAY 17.2 MILLIGRAMS 096147 RxNorm TAKE 17.2 MILLIGRAMS ORAL TWICE A DAY Sertraline HCl 100MG Oral Tablet 12/04/2022 Unknown ORAL ONCE A DAY 200 MILLIGRAMS 903468 RxNorm TAKE 200 MILLIGRAMS ORAL ONCE A DAY Sodium Chloride Nasal Mist 0.65% Nasal [place] 12/04/2022 Unknown NOSTRIL BOTH TWICE A DAY 1 unit(s) RxNorm SPRAY IN 1 EACH NOSTRIL BOTH TWICE A DAY Xarelto 20MG Oral Tablet 12/04/2022 Unknown ORAL ONCE A DAY 20 MILLIGRAMS 1439429 RxNorm TAKE 20 MILLIGRAMS ORAL ONCE A DAY budesonide-for moterol fumarate 80MCG-4.5MCG/1 Actuat Inhalation Aerosol Liquid 12/04/2022 Unknown INHALAT ION TWICE A DAY 2 unit(s) 9872867 RxNorm 2 EACH INHALATION TWICE A DAY levETIRAcetam 500MG Oral Tablet 12/04/2022 Unknown ORAL TWICE A DAY 500 MILLIGRAMS 605973 RxNorm TAKE 500 MILLIGRAMS ORAL TWICE A DAY Protonix 40 MG Oral Tablet, Delayed Release 12/04/2022 Unknown BY MOUTH 1 TABLET 897351 RxNorm TAKE 1 TABLET BY MOUTH Assessment [...] Status Code Code System METABOLIC ENCEPHALOPATHY active 06294 000 SNOMED-CT METABOLIC ALKALOSIS active 8345737 SNOMED-CT COPD WITH EXACERBATION active 4628322 07 SNOMED-CT BACTEREMIA CAUSED BY GRAM-POSITIVE BACTERIA active 959665803582 SNOME D-CT UTI active 76348513 SNOMED-CT DEHYDRATION active 54024528 SNOMED-C T HYPOMAGNESEMIA active 061532975 SNOME D-CT EPILEPSY active 19933559 SNOMED-CT Allergies and Adverse Reactions Allergy Substance Reaction Severity Start Date Concern Status Co de Code System PENICILLIN Active Plan of Treatment Song Follow Up Visit 09/22/2023 Encounters Encounter Diagnosis Start Date Code Code Sys tem Chronic kidney disease stage 3 05/25/2024 [id number] SNOMED-CT Personal Care Team Section Performer Name Performer Role Active Date Inactive Da MICHEAL Garrison PCP - Primary care physician 2022-09-24 2023-06-03 JACINTA CUNNINGHAM PCP - Primary care physician 2023-07-14
--- OUTSIDE RECORDS SUMMARY | 2025-09-02 10:26 | XMS_ITS | Clinical Summary ---
Author Organization [facility] [address] [email or web address] Address [address] [place] [address] Phone Care Team Providers Care Administrative Judge Name Role Phone No, Physician Primary Care Provider [phone] Terence Garcia MD Unavailable [phone] Sophia Thomas MD Unavailable [phone] Allergies Active Allergy Reactions Criticality Noted Date [...] 08/04/2022 Assessment & Plan (08/04/2022 10:52 AM DIRECT CUSTOMER SERVICE REPRESENTATIVE): Had normal K on admission. K last 2 days has been 5.1, 5.3. whole blood K of 5.2. Creatinine stable. Suspect due to immobilization vs resolving YAYA. -treat with lokelma x 2 days -will need repeat labs at SNF in 3-7 days. CKD (chronic kidney disease) stage 3, GFR 30-59 ml/min 07/28/2022 Assessment & Plan (08/04/2022 10:50 AM DIRECT CUSTOMER SERVICE REPRESENTATIVE): Mild YAYA on top of CKD3 - improved, now creat stable at 1.29. (though might be artificially increased due to being on bactrim) - avoid nephrotoxins and renally dose meds Assessment & Plan (08/02/2022 2:25 PM DIRECT CUSTOMER SERVICE REPRESENTATIVE): Mild yaya on top of CKD 3 - will continue to monitor with daily BMP - avoid nephrotoxins and renally dose meds - creatinine stable but not back to baseline, Bactrim may be contributing to cr lab elevation - IVF today and reassess Assessment & Plan (08/01/2022 11:07 AM DIRECT CUSTOMER SERVICE REPRESENTATIVE): Mild yaya on top of CKD 3 - will continue to monitor with daily BMP - avoid nephrotoxins and renally dose meds - creatinine downtrending Assessment & Plan (07/31/2022 1:52 PM DIRECT CUSTOMER SERVICE REPRESENTATIVE): Mild yaya on top of CKD 3 - will continue to monitor with daily BMP - Hold am lasix, add small IVF bolus - avoid nephrotoxins and renally dose meds - creatinine downtrending Assessment & Plan (07/30/2022 1:34 PM DIRECT CUSTOMER SERVICE REPRESENTATIVE): Mild yaya on top of CKD 3 - will continue to monitor with daily BMP - slight bump today - Hold am lasix, add small IVF bolus - avoid nephrotoxins and renally dose meds Assessment & Plan (07/28/2022 2:32 PM DIRECT CUSTOMER SERVICE REPRESENTATIVE): Mild yaya on top of CKD 3 - will continue to monitor with daily BMP - Hold am lasix - send urinalysis - avoid nephrotoxins and renally dose meds Cellulitis of abdominal wall 07/27/2022 Assessment & Plan (08/04/2022 10:49 AM DIRECT CUSTOMER SERVICE REPRESENTATIVE): Pt presenting with abdominal wall erythema and [...] resolved Assessment & Plan (08/02/2022 2:23 PM DIRECT CUSTOMER SERVICE REPRESENTATIVE): Pt presenting with abdominal wall erythema and [...] improving Assessment & Plan (08/01/2022 10:56 AM DIRECT CUSTOMER SERVICE REPRESENTATIVE): Pt presenting with abdominal wall erythema and [...] improving Assessment & Plan (07/31/2022 1:51 PM DIRECT CUSTOMER SERVICE REPRESENTATIVE): Pt presenting with abdominal wall erythema and [...] positive Assessment & Plan (07/30/2022 1:32 PM DIRECT CUSTOMER SERVICE REPRESENTATIVE): Pt presenting with abdominal wall erythema and [...] contaminant Assessment & Plan (07/29/2022 2:29 PM DIRECT CUSTOMER SERVICE REPRESENTATIVE): Pt presenting with abdominal wall erythema and [...] appropriate Assessment & Plan (07/28/2022 2:24 PM DIRECT CUSTOMER SERVICE REPRESENTATIVE): Pt presenting with abdominal wall erythema and [...] 01/21/2022 Assessment & Plan (08/03/2022 3:28 PM DIRECT CUSTOMER SERVICE REPRESENTATIVE): CT in January 2022 showed 4 cm [...] radiology they have such a scanner at [facility] Assessment & Plan (08/02/2022 2:24 PM DIRECT CUSTOMER SERVICE REPRESENTATIVE): CT in January 2022 showed 4 cm [...] radiology they have such a scanner at [facility] Assessment & Plan (08/01/2022 11:05 AM DIRECT CUSTOMER SERVICE REPRESENTATIVE): CT in January 2022 showed 4 cm [...] not Assessment & Plan (07/31/2022 1:51 PM DIRECT CUSTOMER SERVICE REPRESENTATIVE): CT in January 2022 showed 4 cm indeterminant renal mass, has progressed since previous imaging and was recommended to have MRI outpatient but patient was not scanned. - ordered MRI and attempting to get as inpatient Assessment & Plan (07/30/2022 1:33 PM DIRECT CUSTOMER SERVICE REPRESENTATIVE): CT in January 2022 showed 4 cm indeterminant renal mass, has progressed since previous imaging and was recommended to have MRI outpatient but patient was not scanned. - ordered MRI Assessment & Plan (07/28/2022 2:30 PM DIRECT CUSTOMER SERVICE REPRESENTATIVE): CT in January 2022 showed 4 cm [...] 021 Assessment & Plan (08/04/2022 10:49 AM DIRECT CUSTOMER SERVICE REPRESENTATIVE): Pt with Hx of COPD (former smoker), SHELDON and OHS on 3L O2 chronically and Bipap At baseline - Cont home ICS/LABA (formulary substitute for home symbicort) and duonebs prn, bipap and supplemental O2. Assessment & Plan (08/02/2022 2:23 PM DIRECT CUSTOMER SERVICE REPRESENTATIVE): Pt with Hx of COPD (former smoker), SHELDON and OHS on 3L O2 chronically and Bipap - Cont home ICS/LABA (formulary substitute for home symbicort) and duonebs prn, bipap and supplemental O2. Assessment & Plan (08/01/2022 10:56 AM DIRECT CUSTOMER SERVICE REPRESENTATIVE): Pt with Hx of COPD (former smoker), SHELDON and OHS on 3L O2 chronically and Bipap - Cont home ICS/LABA (formulary substitute for home symbicort) and duonebs prn, bipap and supplemental O2. Assessment & Plan (07/31/2022 1:51 PM DIRECT CUSTOMER SERVICE REPRESENTATIVE): Pt with Hx of COPD (former smoker), SHELDON and OHS on 3L O2 chronically and Bipap - Cont home ICS/LABA (formulary substitute for home symbicort) and duonebs prn, bipap and supplemental O2. Assessment & Plan (07/30/2022 1:32 PM DIRECT CUSTOMER SERVICE REPRESENTATIVE): Pt with Hx of COPD (former smoker), SHELDON and OHS on 3L O2 chronically and Bipap - Cont home ICS/LABA (formulary substitute for home symbicort) and duonebs prn, bipap and supplemental O2. Assessment & Plan (07/29/2022 2:42 PM DIRECT CUSTOMER SERVICE REPRESENTATIVE): Pt with Hx of COPD (former smoker), SHELDON and OHS on 3L O2 chronically and Bipap - Cont home ICS/LABA (formulary substitute for home symbicort) and duonebs prn, bipap and supplemental O2. Assessment & Plan (07/28/2022 2:25 PM DIRECT CUSTOMER SERVICE REPRESENTATIVE): Pt with Hx of COPD (former smoker), [...] 04/02/2021 Assessment & Plan (08/04/2022 10:50 AM DIRECT CUSTOMER SERVICE REPRESENTATIVE): Patient with hx of left knee surgery 2/2 fracture and Right knee osteoarthritis. Also with hx of gout of Right Toe. Right knee exam is benign. - uric acid elevated - knee x-ray with OA - continue tylenol and oxycodone, added lidocaine patch Assessment & Plan (08/02/2022 2:22 PM DIRECT CUSTOMER SERVICE REPRESENTATIVE): Patient with hx of left knee surgery [...] 1:05 PM CDT): - CPAP nightly. [facility] notes report CPAP at 6mm H2O with 2L O2 bleed in Assessment & Plan (12/16/2021 3:38 PM CDT): - CPAP nightly. [facility] notes report CPAP at 6mm H2O with 2L O2 bleed in Assessment & Plan (12/15/2021 10:05 AM CDT): - CPAP nightly. [facility] notes report CPAP at 6mm H2O with 2L O2 bleed in Assessment & Plan (12/14/2021 11:36 AM CDT): - CPAP nightly. [facility] notes report CPAP at 6mm H2O with 2L O2 bleed in Assessment & Plan (12/13/2021 10:36 AM CDT): - CPAP nightly. [facility] notes report CPAP at 6mm H2O with 2L O2 bleed in Assessment & Plan (12/11/2021 10:45 PM CDT): - CPAP nightly. [facility] notes report CPAP at 6mm H2O with 2L O2 bleed in Atypical chest pain 12/10/2018 Paroxysmal atrial fibrillation ([facility]) 019 Assessment & Plan (12/17/2021 1:05 PM CDT): - Continue Xarelto and diltiazem Assessment & Plan (12/16/2021 3:38 PM CDT): - Continue Xarelto and diltiazem Assessment & Plan (12/15/2021 10:05 AM CDT): Xarelto, dilt Assessment & Plan (12/14/2021 11:36 AM CDT): claire Guerin Assessment & Plan (12/12/2021 9:36 AM CDT): claire Guerin Subclinical hypothyroidism 12/10/2018 Assessment & Plan (08/03/2022 3:28 PM DIRECT CUSTOMER SERVICE REPRESENTATIVE): Continue home synthyroid Assessment & Plan (08/02/2022 2:24 PM DIRECT CUSTOMER SERVICE REPRESENTATIVE): Continue home synthyroid Assessment & Plan (08/01/2022 10:57 AM DIRECT CUSTOMER SERVICE REPRESENTATIVE): Continue home synthyroid Assessment & Plan (07/31/2022 1:51 PM DIRECT CUSTOMER SERVICE REPRESENTATIVE): Continue home synthyroid Assessment & Plan (07/30/2022 1:33 PM DIRECT CUSTOMER SERVICE REPRESENTATIVE): Continue home synthyroid Assessment & Plan (07/27/2022 8:24 PM DIRECT CUSTOMER SERVICE REPRESENTATIVE): Continue home synthyroid Assessment & Plan (01/23/2022 [...] 03/19/2018 Assessment & Plan (08/03/2022 3:26 PM DIRECT CUSTOMER SERVICE REPRESENTATIVE): Continue home xarelto Assessment & Plan (08/02/2022 2:24 PM DIRECT CUSTOMER SERVICE REPRESENTATIVE): Continue home xarelto Assessment & Plan (08/01/2022 10:57 AM DIRECT CUSTOMER SERVICE REPRESENTATIVE): Continue home xarelto Assessment & Plan (07/31/2022 1:51 PM DIRECT CUSTOMER SERVICE REPRESENTATIVE): Continue home xarelto Assessment & Plan (07/30/2022 1:33 PM DIRECT CUSTOMER SERVICE REPRESENTATIVE): Continue home xarelto Assessment & Plan (07/27/2022 8:25 PM DIRECT CUSTOMER SERVICE REPRESENTATIVE): Continue home xarelto Assessment & Plan (01/23/2022 [...] embolus less than 3 months ago no [place] details she has had numerous hospitalizations in [...] (10/27/2017): Added automatically from request for surgery [id number] Restless leg 10/18/2017 Assessment & Plan (08/03/2022 3:28 PM DIRECT CUSTOMER SERVICE REPRESENTATIVE): Continue pramipexole Assessment & Plan (08/02/2022 2:23 PM DIRECT CUSTOMER SERVICE REPRESENTATIVE): Continue pramipexole Assessment & Plan (08/01/2022 10:57 AM DIRECT CUSTOMER SERVICE REPRESENTATIVE): Continue pramipexole Assessment & Plan (07/31/2022 1:51 PM DIRECT CUSTOMER SERVICE REPRESENTATIVE): Continue pramipexole Assessment & Plan (07/30/2022 1:33 PM DIRECT CUSTOMER SERVICE REPRESENTATIVE): Continue pramipexole Assessment & Plan (07/27/2022 8:23 PM DIRECT CUSTOMER SERVICE REPRESENTATIVE): Continue pramipexole Assessment & Plan (12/17/2021 1:04 [...] 10/18/2017 Assessment & Plan (10/18/2017 6:00 PM DIRECT CUSTOMER SERVICE REPRESENTATIVE): Informed patient today that she would need to comply with this office recommendations on management of her multiple chronic conditions, failure to do so, would mean that she would need to find another primary care provider. Chronic pain syndrome 10/18/2017 Assessment & Plan (12/17/2021 1:04 PM CDT): Chronic pain of bilateral legs s/p fracture, shoulder and back. On Springer 7.5-325 q6h prn at home - tylenol 1g q6h prn, oxycodone 10mg q6h prn - home gabapentin 100mg TID - scheduled and prn bowel regimen - started lidoderm patches for most painful area Assessment & Plan (12/16/2021 3:37 PM CDT): chronic pain of bilateral legs s/p fracture, shoulder and back. On Springer 7.5-325 q6h prn at home - tylenol 1g q6h prn, oxycodone 10mg q6h prn - home gabapentin 100mg TID - scheduled and prn bowel regimen - started lidoderm patches for most painful area Assessment & Plan (12/15/2021 10:05 AM CDT): chronic pain of bilateral legs s/p fracture, shoulder and back. On Springer 7.5-325 q6h prn at home - tylenol 1g q6h prn, oxycodone 10mg q6h prn - home gabapentin 100mg TID - scheduled and prn bowel regimen - started lidoderm patches for most painful area Assessment & Plan (12/14/2021 11:36 AM CDT): chronic pain of bilateral legs s/p fracture, shoulder and back. On Springer 7.5-325 q6h prn at home - tylenol 1g q6h prn, oxycodone 10mg q6h prn - home gabapentin 100mg TID - scheduled and prn bowel regimen - started lidoderm patches for most painful area Assessment & Plan (12/13/2021 10:36 AM CDT): chronic pain of bilateral legs s/p fracture, shoulder and back. On Springer 7.5-325 q6h prn at home - tylenol 1g q6h prn, oxycodone 10mg q6h prn - home gabapentin 100mg TID - scheduled and prn bowel regimen - started lidoderm patches for most painful area Assessment & Plan (12/12/2021 9:35 AM CDT): chronic pain of bilateral legs s/p fracture, shoulder and back. On Springer 7.5-325 q6h prn at home - tylenol [...] events Assessment & Plan (10/18/2017 5:57 PM DIRECT CUSTOMER SERVICE REPRESENTATIVE): Referred to pain mgmt for further eval/tx. Wound dehiscence 10/18/2017 Assessment & Plan (10/18/2017 5:58 PM DIRECT CUSTOMER SERVICE REPRESENTATIVE): Referral given 2 months ago to be seen by wound care. Patient did not follow up with them. Seizure disorder 07/20/2017 Assessment & Plan (08/03/2022 3:28 PM DIRECT CUSTOMER SERVICE REPRESENTATIVE): Controlled. Continue home keppra & oxcarbazapine. Assessment & Plan (08/02/2022 2:23 PM DIRECT CUSTOMER SERVICE REPRESENTATIVE): Controlled. Continue home keppra & oxcarbazapine. Assessment & Plan (08/01/2022 10:57 AM DIRECT CUSTOMER SERVICE REPRESENTATIVE): Controlled. Continue home keppra & oxcarbazapine. Assessment & Plan (07/31/2022 1:51 PM DIRECT CUSTOMER SERVICE REPRESENTATIVE): Controlled. Continue home keppra & oxcarbazapine. Assessment & Plan (07/30/2022 1:33 PM DIRECT CUSTOMER SERVICE REPRESENTATIVE): Controlled. Continue home keppra & oxcarbazapine. Assessment & Plan (07/27/2022 8:25 PM DIRECT CUSTOMER SERVICE REPRESENTATIVE): Controlled. Continue home keppra & oxcarbazapine. Assessment [...] on gabapentin patient was previously followed at [facility] in [facility]. Plans continue gabapentin this time Assessment & Plan (10/18/2017 5:56 PM DIRECT CUSTOMER SERVICE REPRESENTATIVE): Self-reported, patient was referred to neurology 2 months ago immediately after she reported a seizure. Patient did not mellisa appt with neurology, patient encouraged to comply. Personality disorder 07/20/2017 Assessment & Plan (03/19/2018 2:33 PM CDT): Psychiatric referral made Assessment & Plan (10/18/2017 5:53 PM DIRECT CUSTOMER SERVICE REPRESENTATIVE): Encouraged patient to f/u through with Psychiatry referral. Bipolar 1 disorder, depressed, mild 07/20/2017 Assessment & Plan (08/03/2022 3:17 PM DIRECT CUSTOMER SERVICE REPRESENTATIVE): Symptoms controlled, cont home regimen of sertraline, Seroquel Assessment & Plan (08/02/2022 2:23 PM DIRECT CUSTOMER SERVICE REPRESENTATIVE): Symptoms controlled, cont home regimen of sertraline, Seroquel Assessment & Plan (08/01/2022 10:56 AM DIRECT CUSTOMER SERVICE REPRESENTATIVE): Symptoms controlled, cont home regimen of sertraline, Seroquel Assessment & Plan (07/31/2022 1:51 PM DIRECT CUSTOMER SERVICE REPRESENTATIVE): Symptoms controlled, cont home regimen of sertraline, Seroquel Assessment & Plan (07/30/2022 1:33 PM DIRECT CUSTOMER SERVICE REPRESENTATIVE): Symptoms controlled, cont home regimen of sertraline, Seroquel Assessment & Plan (07/29/2022 2:42 PM DIRECT CUSTOMER SERVICE REPRESENTATIVE): Symptoms controlled, cont home regimen of sertraline, Seroquel Assessment & Plan (07/27/2022 8:23 PM DIRECT CUSTOMER SERVICE REPRESENTATIVE): Symptoms controlled, cont home regimen of sertraline, [...] hallucinations. Assessment & Plan (10/18/2017 5:53 PM DIRECT CUSTOMER SERVICE REPRESENTATIVE): Rx refills given. Encouraged patient to f/u [...] therapy Assessment & Plan (10/18/2017 5:51 PM DIRECT CUSTOMER SERVICE REPRESENTATIVE): Hypertension is improving with treatment. Continue current treatment regimen. Dietary sodium restriction. Weight loss. Continue current medications. Blood pressure will be reassessed at the next regular appointment. Insomnia 07/20/2017 Assessment & Plan (10/18/2017 5:52 PM DIRECT CUSTOMER SERVICE REPRESENTATIVE): Will not fill both trazodone AND ambien, [...] 07/20/2017 Assessment & Plan (10/18/2017 5:56 PM DIRECT CUSTOMER SERVICE REPRESENTATIVE): Encouraged patient to follow through with nephrology referral she was given 2 months ago. Referral re-printed. Class 3 severe obesity with body mass index (BMI) greater than or equal to 70 in adult 07/20/2017 Assessment & Plan (08/03/2022 3:26 PM DIRECT CUSTOMER SERVICE REPRESENTATIVE): Pt with severe obesity, complicated by SHELDON/OHS. Leg fractures in 2020 managed nonoperatively, pt has been bed bound and living in SNF since that time. Assessment & Plan (08/02/2022 2:23 PM DIRECT CUSTOMER SERVICE REPRESENTATIVE): Pt with severe obesity, complicated by SHELDON/OHS. Leg fractures in 2020 managed nonoperatively, pt has been bed bound and living in SNF since that time. Assessment & Plan (08/01/2022 10:56 AM DIRECT CUSTOMER SERVICE REPRESENTATIVE): Pt with severe obesity, complicated by SHELDON/OHS. Leg fractures in 2020 managed nonoperatively, pt has been bed bound and living in SNF since that time. Assessment & Plan (07/31/2022 1:51 PM DIRECT CUSTOMER SERVICE REPRESENTATIVE): Pt with severe obesity, complicated by SHELDON/OHS. Leg fractures in 2020 managed nonoperatively, pt has been bed bound and living in SNF since that time. Assessment & Plan (07/30/2022 1:33 PM DIRECT CUSTOMER SERVICE REPRESENTATIVE): Pt with severe obesity, complicated by SHELDON/OHS. Leg fractures in 2020 managed nonoperatively, pt has been bed bound and living in SNF since that time. Assessment & Plan (07/27/2022 8:25 PM DIRECT CUSTOMER SERVICE REPRESENTATIVE): Pt with severe obesity, complicated by SHELDON/OHS. [...] she informs me that Dr. Panda in [facility] is willing to move this pannus patient referred to this particular physician to address this problem soon as possible. 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 Assessment & Plan (10/18/2017 5:56 PM DIRECT CUSTOMER SERVICE REPRESENTATIVE): Obesity is unchanged. Discussed the patient's BMI. [...] one more day then likely return to [place] tomorrow with better wound care Acute kidney [...] Encounters Date Type Department Care Team Description 06/14/2025 Telephone [facility] Medicine Surgery [address] [place] [address] [place] [id number] Zachary Augustine MD PhD from Last 3 [...] Hypertension 1999 Chronic kidney disease 2006 Seizures ([facility]) 2016 Fibromyalgia 2002 Osteoarthritis uses motorized w heelchair and walker Diabetes mellitus Sleep apnea Seasonal allergies 1970 Bipolar 1 disorder ([facility]) History of pulmonary embolism Subclinical hypothyroidism 12/10/2018 CHF (congestive heart failure) ([facility]) COPD (chronic obstructive pu lmonary disease) Family [...] = 0.6 oz pur e alcohol) Occasional TIDAL PETROLEUM Utilities Answer Date Recorded In the past 12 months has [place], gas, oil, or water [employer] threatened to shut off services in your home? No 01/15/2025 Social Connection and Isolation Panel Answer Date Recorded In a typical week, how many times do you talk on the phone with family, friends, or neighbors? Once a week 01/15/2025 How often do you get together with friends or re latives? Once a week 01/15/2025 How often do you attend methodist or rastafarian serv ices? Never 01/15/2025 Do you belong to any clubs o r organizations such as methodist groups, unions, fraternal or athletic groups, or [...] place to sleep or slept in a nursing home (including now)? No 07/30/2022 Housing Stability [...] time in the past [address] [facility], were you homeless or living in a nursing home (including now)? No 01/15/2025 Personal Safety [...] Additional history exists Covid-19 Vaccine (3 - 2024-2 6 season) 2025 12/25/2021, 03/21/2021 Influenza Vaccine (#1) 2025 , [...] history exists Medical Devices Implanted Type Area Security Control Center Operator Device Identifier Shelf Expiration Date Model / Serial / Lot [facility] [place] [employer] Safesheath D-Pro 15.5fr 28cm Kit Catheter [id number] - [id number] Implanted:Qty: 1 on 01/15/2025 by Hill Martínez MD at [facility] [employer] [facility] 12/11/2026 [id number] / / [id number] Procedures Procedure Name Priority Date/Time Associated Diagnosis Comments HEPATITIS PANEL, ACUTE Routine 01/15/2025 3:30 PM CDT OCCULT BLOOD, FECAL (FIT) Routine 08/02/2017 7:41 AM DIRECT CUSTOMER SERVICE REPRESENTATIVE MAMMOGRAPHY Routine 01/11/2002 COLONOSCOPY Routine 10/14/2001 from [...] 19. Hep B core IgM Nonreactive Nonreactive [facility] Comment: Interpretive Data If HepB Core IgM Ab is reported as Equivocal, a new sample should be drawn in two weeks for testing. Current interpretive data was last revised on 19. Hep C Ab Nonreactive Nonreactive [facility] Comment: Interpretive Data Nonreactive: Antibodies to HCV [...] last revised on 2019. HepBsAg Nonreactive Nonreactive [facility] Blood 01/15/2025 3:30 PM CDT 01/15/2025 4:03 PM CDT us Ajith Cruz MD LAB MICROBIOLOGY - GENERAL OR DERABLES Final Result [facility] [address] Department [place] [address] * Occult blood, fecal non neoplasm screening (08/02/2017 7:41 AM DIRECT CUSTOMER SERVICE REPRESENTATIVE) [facility] Occult blood, fecal Negative Negative [facility] ([facility]) Collection date , feces [id number] [facility] ([facility]) Collection time 1, feces 739 [facility] ([facility]) Stool 08/02/2017 7:41 AM DIRECT CUSTOMER SERVICE REPRESENTATIVE 08/02/2017 7:44 AM DIRECT CUSTOMER SERVICE REPRESENTATIVE us Pam Rivas MD LAB BODY FLUIDS AND STOOLS ORDER SARIKA Final Result [facility] ([facility]) [address] [facility] Department [place] [address] * MAMMOGRAPHY (01/11/2002) Mammogram Normal Historical Provider HEALTH MAINTENANCE Final Result * COLONOSCOPY (10/14/2001) HM Colonoscopy Unknown Historical Provider HEALTH MAINTENANCE Final Result from Last 3 Months or Most Recently Relevant to Health Maintenance Additional Health Concerns Infection Onset Date Last Indicated MDR gram neg/ESBL 11/02/2024 11/02/[id number] [place] [address] [place] [address] [facility] AETNA MEDICARE COUNT INCLUDES THE [facility] [id number] [place] [address] [facility] * Guarantor: Cathy Greene Account Type Relation to Patient Date of Phone Billing Address Personal/Family Self [id number] [place] [address] [employer] CHOICE MEDICARE PPO * Guarantor: RamonaJesusshanti Vázquez Account Type Relation to Patient Date of Phone Billing Address Personal/Family Self [id number] [place] [address] MEDICARE Advance Directives For more information, please contact: [phone] Documents on File Type Date Recorded 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
--- OUTSIDE RECORDS SUMMARY | 2025-09-02 10:26 | XMS_ITS ---
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 Role Phone JODY GONSALEZ Attending Unavailable OCTAVIO Mcguire Primary Unavailable Immunization [...] URINALYSIS w/Microscopy/C&S if indicated - Collect Date/Time: 05/25/2024 20:23 [facility] [id number] [address] [place] [address], [phone] LOINC: 28470-4 Test Value Unit Reference Range Code Code System Flag UR SOURCE RAMÍREZ CATH 14620-2 LOINC COLOR STRAW YELLOW 5778-6 LOINC CLARITY TURBID CLEAR 87888-5 LOINC A SPEC GRAVITY 1.010 1.000-1.030 5811-5 LOINC PH 8.5 5.0 - 6.5 5803-2 LOINC LEUK EST 3+ NEGATIVE 5799-2 LOINC A NITRATE NEGATIVE NEGATIVE PROTEIN 2+ NEGATIVE 5804-0 LOINC A GLUCOSE NEGATIVE NEGATIVE 70923-9 LOINC KETONES NEGATIVE NEGATIVE 15947-0 LOINC UROBILINOGEN 0.2EU/dL NEGATIVE 5818-0 LOINC BILIRUBIN NEGATIVE NEGATIVE 77892-0 LOINC BLOOD 2+ NEGATIVE 74944-9 LOINC A WBC TNTC 0 - 2 47479-8 LOINC A RBC 5-10 0 - 2 54060-7 LOINC A EPITHELIAL RARE RARE-FEW 24275-2 LOINC BACTERIA 3+ NONE SEEN 54931-9 LOINC A MUCUS FEW NONE SEEN 8247-9 LOINC YEAST NOT PRESENT NOT PRESENT 81582-7 LOINC CASTS NONE SEEN 70505-0 LOINC CRYSTALS SEE BELOW 54311-6 LOINC CULTURE? YES 8251-1 LOINC DIAGNOSIS ABN LAB RESU LIPASE - Collect Date/Time: 05/25/2024 19:40 [facility] [id number] [address] [place] [address], [phone] LOINC: 3040-3 Test Value Unit Reference Range Code Code System Flag LIPASE 73 U/L L=23 H=300 3040-3 LOINC OCCULT BLOOD (DIAGNOSTIC) FI T/HEMOSURE - Collect Date/Time: 05/25/2024 19:40 [facility] [id number] [address] [place] [address], [phone] LOINC: Test Value Unit Reference Range Code Code System Flag OCCULT BLOOD NEGATIVE NORMAL:NEGATIVE CBC W/ DIFF - Collect Date/T pili: 05/25/2024 19:40 [facility] [id number] [address] [place] [address], [phone] LOINC: 71059-0 Test Value Unit Reference Range Code Code System Flag WBC 4.6 10^3uL L=4.8 H=10.8 L RBC 2.77 10^6uL L=4.20 H=5.40 L HEMOGLOBIN 7.9 g/dL L=12.0 H=16.0 718-7 LOINC LL CALLED TO: VERONICA WYATT AT: 1953 BY: ZULLY HARDWICK HEMATOCRIT 25.4 VOL% L=37.0 H=47.0 4544-3 LOINC L MCV 91.7 fL L=81.0 H=99.0 MCH 28.5 pg L=27.0 H=32.0 MCHC 31.1 g/dL L=32.0 H=36.0 L PLATELETS 129 10^3uL L=100 H=400 98380-2 LOINC RDW 14.1 % L=11.7 H=15.5 %GRAN 78.6 % L=40.0 H=70.0 53219-7 LOINC H %LYMPH 13.6 % L=20.0 H=45.0 736-9 LOINC L %MONO 6.9 % L=2.0 H=10.0 53592-8 LOINC %EOS 0.0 % L=0.0 H=6.0 713-8 LOINC %BASO 0.0 % L=0.0 H=3.0 706-2 LOINC #NEUT 3.7 10^3uL L=1.9 H=7.6 21885-8 LOINC #LYMPH 0.6 10^3uL L=0.9 H=4.9 43196-7 LOINC L #MONO 0.3 10^3uL L=0.1 H=0.9 43681-2 LOINC #EOS 0.0 10^3uL L=0.0 H=0.6 712-0 LOINC #BASO 0.00 10^3uL L=0.00 H=0.10 16891-5 LOINC #IM GRANS 0.0 10^3uL L=0.0 H=7.0 95267-5 LOINC %IM GRANS 0.9 % L=0.0 H=5.0 92127-7 LOINC %NRB 0.0 L=0.0 H=0.2 81928-2 LOINC #NRB 0.000 L=0.000 H=0.012 59034-2 LOINC MANUAL DIFF NOT INDICATED RBC MORPH NOT INDICATED PTT - Collect Date/Time: 08/2024 19:40 [facility] ID: [id number] [address] [place] [address], [phone] LOINC: 27010-3 Test Value Unit Reference Range Code Code System Flag PTT 26.5 Sec L=23.0 H=31.2 TROPONIN LEVEL - Collect Pepe e/Time: 05/25/2024 19:40 [facility] [id number] [address] [place] [address], [phone] LOINC: 48612-4 Test Value Unit Reference Range Code Code System Flag TROPONIN 0.077 ng/mL L=0.000 H=0.033 07307-2 LOINC H PROTIME - Collect Date/Time: 05/25/2024 19:40 [facility] ID: [id number] [address] [place] [address], [phone] LOINC: 38632-3 Test Value Unit Reference Range Code Code System Flag PT 9.9 Sec L=9.7 H=11.7 56696-9 LOINC INR 0.9 Sec L=0.9 H=1.1 21961-4 LOINC COMPREHENSIVE METABOLIC PANE L - Collect Date/Time: 05/25/2024 19:40 [facility] ID: [id number] [address] [place] [address], [phone] LOINC: 25283-1 Test Value Unit Reference Range Code Code System Flag FASTING UNKNOWN BUN 84 mg/dL L=7 H=20 3094-0 LOINC HH CALLED TO: YOSELIN MARTIN AT: 2012 BY: AMA CREATININE 6.80 mg/dL L=0.52 H=1.04 2160-0 LOINC HH CALLED TO: YOSELIN MARTIN AT: 2012 BY: AMA GLUCOSE 100 mg/dL L=74 H=106 2345-7 LOINC SODIUM 139 mmol/L L=132 H=144 2951-2 LOINC POTASSIUM 4.6 mmol/L L=3.5 H=5.1 2823-3 LOINC CHLORIDE 101 mmol/L L=98 H=107 2075-0 LOINC CO2 25.0 mmol/L L=22.0 H=30.0 2028-9 LOINC ANION GAP 18 L=10 H=20 46030-4 LOINC OSMOLALITY 314 mOs/kG L=280 H=296 55006-8 LOINC H BUN/CREAT 12.4 3097-3 LOINC CALCIUM 9.3 mg/dL L=8.3 H=10.5 46636-3 LOINC AST 13 U/L L=15 H=46 1920-8 LOINC L ALT 10 U/L L=9 H=72 1742-6 LOINC ALKALINE PHOS 127 U/L L=38 H=126 6768-6 LOINC H TOTAL BILI 0.5 mg/dL L=0.2 H=1.3 1975-2 LOINC ALBUMIN 3.5 G/dL L=3.5 H=5.0 1751-7 LOINC TOTAL PROTEIN 6.2 g/L L=6.3 H=8.2 2885-2 LOINC L A/G RATIO 1.3 84617-6 LOINC AGE 64 17983-5 LOINC eGFR NON-AFR 6 ml/min eGFR AFR AMER 7 ml/min CT ABD/PEL WO CONTRAST - Com pleted: 05/25/2024 20:12 LOINC: 03298-9 EXAM DESCRIPTION: CT ABD/PEL WO CONTRAST REASON FOR STUDY: BEST OBTAINABLE CT SCAN FOR PATIENTS' BODY HABITUS AND CONDITION Abnormal labs and abdominal pain for a few days. Patients' labs show renal failure. Duration: few days TECHNIQUE: CT scan of the abdomen and pelvis performed without intravenous and without oral contrast using helical scanning technique. Reconstructed coronal and sagittal MPR images reviewed. All images stored on PACS. Automated exposure control was used as a dose optimization technique for this examination. COMPARISON: 10/29/2023 FINDINGS: The sensitivity for detection of visceral lesions is diminished without the use of intravenous contrast. The exam is compromised by the patient's large size. LOWER CHEST: Minimal chronic consolidation at the left lung base is probably due to atelectasis. LIVER: Normal size. No identified cystic or solid masses. GALLBLADDER: Stones. No wall thickening or pericholecystic fluid BILE DUCTS: No intrahepatic or extrahepatic ductal dilatation. SPLEEN: No focal lesions were seen. PANCREAS: No identified cystic or solid masses. No significant calcifications. No adjacent inflammation or peripancreatic fluid collections. Pancreatic duct not dilated. ADRENALS: A left adrenal incidentaloma is unchanged. KIDNEYS/URINARY TRACT: No obvious mass or hydronephrosis was seen on the right. A 5.4 cm circumscribed mass or complex cyst at the upper pole of the left kidney is larger than on the previous study. Renal cell cancer is not excluded on this compromised exam. Large staghorn calculus on the left is again identified. A Ramírez catheter is seen in the bladder. There is also air in the bladder. GI: No bowel obstruction or gross inflammatory bowel disease was seen. PERITONEUM: No ascites or free air. RETROPERITONEUM: No mass or adenopathy. REPRODUCTIVE: No significant abnormality. VASCULATURE: No abdominal aortic aneurysm. MUSCULOSKELETAL: No significant abnormality. OTHER: No other abnormality. IMPRESSION: ? ? Cholelithiasis. ? ? Large staghorn calculus on the left. ? ? Approximately 5.4 cm circumscribed mass or complex cyst at the upper pole of the left kidney, larger than on the previous study. Renal cell cancer is not excluded on this very compromised exam. THIS IS AN ELECTRONICALLY VERIFIED FINAL REPORT 05/25/2024 8:51 PM - Electronically signed by Wilfrido Lacey M.D. BRIANNA: BRIANNA Report ID: [id number] Reading Location: [id number] Social History Type Status Start Date End Date Code Code Syst em Smoking History Unknown if ever smoked [id number] Sex Female Medications Medication Start Date End Date Route Frequency Dose Code Code System Medication Instructions Home Meds OXcarbazepine 150MG Oral Tablet 10/28/2022 Unknown ORAL TWICE A DAY 150 MILLIGRAMS 746373 RxNorm TAKE 150 MILLIGRAMS ORAL TWICE A DAY oxyCODONE HCl 5MG Oral Tablet 10/28/2022 Unknown ORAL NEEDED EVERY 6 HOURS 5 MILLIGRAMS 5790685 RxNorm TAKE 5 MILLIGRAMS ORAL NEEDED EVERY 6 HOURS Acetaminophen 325MG Oral Tablet 12/04/2022 Unknown ORAL NEEDED EVERY 4 HOURS 650 MILLIGRAMS 853694 RxNorm TAKE 650 MILLIGRAMS ORAL NEEDED EVERY 4 HOURS Atorvastatin Calcium 40MG Oral Tablet 12/04/2022 Unknown ORAL AT BEDTIME 40 MILLIGRAMS 134736 RxNorm TAKE 40 MILLIGRAMS ORAL AT BEDTIME Bisacodyl 10MG Rectal Suppository 12/04/2022 Unknown RECTAL NEEDED DAILY 10 MILLIGRAMS 948850 RxNorm INSERT 10 MILLIGRAMS RECTAL NEEDED DAILY Budesonide 0.5MG/2ML Inhalation Suspension 12/04/2022 Unknown NEBULIZ ER RESP DAILY 0.5 MILLIGRAMS 669000 RxNorm 0.5 MILLIGRAMS NEBULIZER RESP DAILY Cetirizine HCl 10MG Oral Tablet 12/04/2022 Unknown ORAL ONCE A DAY 10 MILLIGRAMS 8016049 RxNorm TAKE 10 MILLIGRAMS ORAL ONCE A DAY Ferrous Sulfate 325MG Oral Tablet 12/04/2022 Unknown ORAL EVERY OTHER DAY 325 MILLIGRAMS 157662 RxNorm TAKE 325 MILLIGRAMS ORAL EVERY OTHER DAY Furosemide 40MG Oral Tablet 12/04/2022 Unknown ORAL ONCE A DAY 40 MILLIGRAMS 931233 RxNorm TAKE 40 MILLIGRAMS ORAL ONCE A DAY Gabapentin 300MG Oral Capsule 12/04/2022 Unknown ORAL THREE TIMES A DAY 300 MILLIGRAMS 914381 RxNorm TAKE 300 MILLIGRAMS ORAL THREE TIMES A DAY Ipratropium [employer] rol Sulfate 0.5MG/3ML-3MG/ 3ML Inhalation Solution 12/04/2022 Unknown NEBULIZ ER NEEDED EVERY 2 HOURS 1 unit(s) 4266001 RxNorm 1 EACH NEBULIZER NEEDED EVERY 2 HOURS Melatonin 5 MG Oral Tablet 12/04/2022 Unknown ORAL AT BEDTIME 5 MG RxNorm TAKE 5 MG ORAL AT BEDTIME Milk Of Magnesia 2400MG/30ML Oral Suspension 12/04/2022 Unknown ORAL PRN Q72H 30 mL 061058 RxNorm TAKE 30 m L ORAL PRN Q72H Oxymetazoline HCl 0.05% Nasal [place] 12/04/2022 Unknown NOSTRIL BOTH NEEDED EVERY 12 HOURS 2 unit(s) 6239435 RxNorm SPRAY IN 2 EACH NOSTRIL BOTH NEEDED EVERY 12 HOURS Polyethylene Glycol 3350 17 GM/1 Packet Oral Packet 12/04/2022 Unknown ORAL ONCE A DAY 17 GRAM 141703 RxNorm TAKE 17 GRAM ORAL ONCE A DAY Sennosides 8.6MG Oral Tablet 12/04/2022 Unknown ORAL TWICE A DAY 17.2 MILLIGRAMS 480106 RxNorm TAKE 17.2 MILLIGRAMS ORAL TWICE A DAY Sertraline HCl 100MG Oral Tablet 12/04/2022 Unknown ORAL ONCE A DAY 200 MILLIGRAMS 545721 RxNorm TAKE 200 MILLIGRAMS ORAL ONCE A DAY Sodium Chloride Nasal Mist 0.65% Nasal [place] 12/04/2022 Unknown NOSTRIL BOTH TWICE A DAY 1 unit(s) RxNorm SPRAY IN 1 EACH NOSTRIL BOTH TWICE A DAY Xarelto 20MG Oral Tablet 12/04/2022 Unknown ORAL ONCE A DAY 20 MILLIGRAMS 9339217 RxNorm TAKE 20 MILLIGRAMS ORAL ONCE A DAY budesonide-for moterol fumarate 80MCG-4.5MCG/1 Actuat Inhalation Aerosol Liquid 12/04/2022 Unknown INHALAT ION TWICE A DAY 2 unit(s) 4757807 RxNorm 2 EACH INHALATION TWICE A DAY levETIRAcetam 500MG Oral Tablet 12/04/2022 Unknown ORAL TWICE A DAY 500 MILLIGRAMS 856543 RxNorm TAKE 500 MILLIGRAMS ORAL TWICE A DAY Protonix 40 MG Oral Tablet, Delayed Release 12/04/2022 Unknown BY MOUTH 1 TABLET 434424 RxNorm TAKE 1 TABLET BY MOUTH Assessment [...] Status Code Code System METABOLIC ENCEPHALOPATHY active 00190 000 SNOMED-CT METABOLIC ALKALOSIS active 4181343 SNOMED-CT COPD WITH EXACERBATION active 6910677 07 SNOMED-CT BACTEREMIA CAUSED BY GRAM-POSITIVE BACTERIA active 429073342231 SNOME D-CT UTI active 85264076 SNOMED-CT DEHYDRATION active 22787101 SNOMED-C T HYPOMAGNESEMIA active 460465891 SNOME D-CT EPILEPSY active 52437096 SNOMED-CT Allergies and Adverse Reactions Allergy Substance Reaction Severity Start Date Concern Status Co de Code System PENICILLIN Active Plan of Treatment Song Follow Up Visit 09/22/2023 Encounters Encounter Diagnosis Start Date Code Code Sys tem Anemia, unspecified 05/25/2024 SNOMED-C T Personal Care Team Section Performer Name Performer Role Active Date Inactive MICHEAL Krishnamurthy PCP - Primary care physician 2022-09-24 2023-06-03 JACINTA CUNNINGHAM PCP - Primary care physician 2023-07-14 Imaging Narrative Notes
--- OUTSIDE RECORDS SUMMARY | 2025-09-02 10:26 | XMS_ITS ---
Author Organization Unknown Address [address] [place] [phone] Phone Care Team Providers Care Supervisor Mill Name Role Phone SUSAN WALKER Attending Unavailable OCTAVIO Mcguire Primary Unavailable Immunization [...] Results ARTERIAL BLOOD GAS - Collect Date/Time: 07/14/2023 11:02 [facility] ID: [id number] [address] [place] [address], [phone] LOINC: 95601-6 Test Value Unit Reference Range Code Code System Flag pH 7.28 L=7.35 H=7.45 2753-2 LOINC L PO2 129.0 mmHg L=80.0 H=90.0 55128-8 LOINC H PCO2 90.0 mmHg L=35.0 H=45.0 84504-3 [facility] CALLED TO: ANTONIO Michaels AT: 1109 BY: SD BE 15.1 mmol/L L=0.0 H=2.0 16679-8 LOINC H BEecf 16.2 mmol/L L=0.0 H=2.0 13832-5 LOINC H HCO3 43.1 mmol/L L=22.0 H=26.0 58977-8 LOINC H A-aDO2 56 mmHg L=7 H= LOINC H O2Hb 97.8 % L=85.0 H=99.0 91616-8 LOINC sO2m 99.0 % L=85.0 H=98[place] [address]-6 LOINC PUNCTURE SITE RIGHT RADIAL FIO2 40 % ARTERIAL BLOOD GAS - Collect Date/Time: 07/14/2023 08:28 [facility] ID: [id number] [place], [place], [phone] [facility]: 15156-0 Test Value Unit Reference Range Code Code System Flag pH 7.24 L=7.35 H=7.45 2753-2 LOINC L PO2 97.0 mmHg L=80.0 H=90.0 99398-1 LOINC H PCO2 101.0 mmHg L=35.0 H=45.0 92775-5 [facility] CALLED TO: HEATHER Menard AT: 0844 BY: SD BE 14.7 mmol/L L=0.0 H=2.0 69101-0 LOINC H BEecf 16.1 mmol/L L=0.0 H=2.0 80556-1 LOINC H HCO3 43.7 mmol/L L=22.0 H=26.0 32192-8 LOINC H A-aDO2 46 mmHg L=7 H= LOINC H O2Hb 94.6 % L=85.0 H=99.0 73650-6 LOINC sO2m 99.0 % L=85.0 H=98.0 H KARMEN TEST NOT PERFORMED 06994-5 LOINC PUNCTURE SITE RIGHT BRACHIA FIO2 36 % ARTERIAL BLOOD GAS - Collect Date/Time: 07/14/2023 06:55 [facility] ID: [id number] [place], [place], [phone] LOINC: 81543-5 Test Value Unit Reference Range Code Code System Flag pH 7.20 L=7.35 H=7.45 2753-2 LOINC L PO2 97.0 mmHg L=80.0 H=90.0 46785-5 LOINC H PCO2 110.0 mmHg L=35.0 H=45.0 85594-0 LOINC [facility] CALLED TO: DALJIT Cody AT: 0707 BY: SD BE 13.8 mmol/L L=0.0 H=2.0 13175-3 LOINC H BEecf 15.0 mmol/L L=0.0 H=2.0 27111-5 LOINC H HCO3 43.2 mmol/L L=22.0 H=26.0 96413-1 LOINC H A-aDO2 35 mmHg L=7 H=13 21142-7 LOINC H O2Hb 98.5 % L=85.0 H=99.0 01937-4 LOINC sO2m 99.0 % L=85.0 H=98.0 H KARMEN TEST NOT PERFORMED 57839-8 LOINC PUNCTURE SITE RIGHT BRACHIA FIO2 36 % URINALYSIS w/Microscopy/C&S if indicated - Collect Date/Time: 07/14/2023 06:19 [facility] ID: [id number] [address] [place], [place], [phone] LOINC: 13081-1 Test Value Unit Reference Range Code Code System Flag UR SOURCE UNKNOWN 67106-0 LOINC COLOR LT YELLOW YELLOW 5778-6 LOINC CLARITY TURBID CLEAR 64318-4 LOINC A SPEC GRAVITY 1.020 1.000-1.030 5811-5 LOINC PH 6.0 5.0 - 6.5 5803-2 LOINC LEUK EST 2+ NEGATIVE 5799-2 LOINC A NITRATE NEGATIVE NEGATIVE PROTEIN 2+ NEGATIVE 5804-0 LOINC A GLUCOSE NEGATIVE NEGATIVE 24997-1 LOINC KETONES NEGATIVE NEGATIVE 80201-0 LOINC UROBILINOGEN 0.2 NEGATIVE 5818-0 LOINC BILIRUBIN NEGATIVE NEGATIVE 89501-6 LOINC BLOOD 2+ NEGATIVE 58944-1 LOINC WBC 10-20 0 - 2 36986-9 LOINC A RBC 10-20 0 - 2 89279-1 LOINC A EPITHELIAL FEW RARE-FEW 71799-6 LOINC BACTERIA 1+ NONE SEEN 58671-2 LOINC MUCUS NONE SEEN NONE SEEN 8247-9 LOINC YEAST NOT PRESENT NOT PRESENT 81060-8 LOINC CASTS NONE SEEN 15699-1 LOINC CRYSTALS NONE SEEN 30983-2 LOINC CULTURE? NO 8251-1 LOINC DIAGNOSIS ABN LAB RESU CBC W/ DIFF - Collect Date/T pili: 07/14/2023 05:30 [facility] ID: [id number] [place], [place], [phone] LOINC: 74439-1 Test Value Unit Reference Range Code Code System Flag WBC 5.2 10^3uL L=4.8 H=10.8 RBC 2.99 10^6uL L=4.20 H=5.40 L HEMOGLOBIN 8.2 g/dL L=12.0 H=16.0 718-7 LOINC L HEMATOCRIT 28.7 VOL% L=37.0 H=47.0 4544-3 LOINC L MCV 96.0 fL L=81.0 H=99.0 MCH 27.4 pg L=27.0 H=32.0 MCHC 28.6 g/dL L=32.0 H=36.0 L PLATELETS 124 10^3uL L=100 H=400 42652-9 LOINC RDW 14.3 % L=11.7 H=15.5 %GRAN 88.2 % L=40.0 H=70.0 96586-8 LOINC H %LYMPH 6.6 % L=20.0 H=45.0 736-9 LOINC L %MONO 4.4 % L=2.0 H=10.0 17852-2 LOINC %EOS 0.0 % L=0.0 H=6.0 713-8 LOINC %BASO 0.0 % L=0.0 H=3.0 706-2 LOINC #NEUT 4.6 10^3uL L=1.9 H=7.6 69826-4 LOINC #LYMPH 0.3 10^3uL L=0.9 H=4.9 20836-2 LOINC L #MONO 0.2 10^3uL L=0.1 H=0.9 43510-4 LOINC #EOS 0.0 10^3uL L=0.0 H=0.6 712-0 LOINC #BASO 0.00 10^3uL L=0.00 H=0.10 78929-4 LOINC #IM GRANS 0.0 10^3uL L=0.0 H=7.0 96106-2 LOINC %IM GRANS 0.8 % L=0.0 H=5.0 19364-8 LOINC %NRB 0.0 L=0.0 H=0.2 85747-3 LOINC #NRB 0.000 L=0.000 H=0.012 08434-8 LOINC MANUAL DIFF NOT INDICATED RBC MORPH NOT INDICATED LACTIC ACID - Collect Date/T pili: 07/14/2023 05:30 [facility] ID: [id number] [place] [address], [phone] LOINC: 29244-2 Test Value Unit Reference Range Code Code System Flag LACTIC ACID 0.7 mmol/L L=0.7 H=2.1 56821-4 LOINC TROPONIN LEVEL - Collect Pepe e/Time: 07/14/2023 05:30 [facility] ID: [id number] [place] [address], [id number] LOINC: 10399-7 Test Value Unit Reference Range Code Code System Flag TROPONIN 0.037 ng/mL L=0.000 H=0.033 62096-9 LOINC H COMPREHENSIVE METABOLIC PANE L - Collect Date/Time: 07/14/2023 05:30 [facility] ID: [id number] [place], [place], [phone] LOINC: 57473-0 Test Value Unit Reference Range Code Code System Flag FASTING UNKNOWN BUN 55 mg/dL L=7 H=20 3094-0 LOINC H CREATININE 2.50 mg/dL L=0.52 H=1.04 2160-0 LOINC H GLUCOSE 170 mg/dL L=74 H=106 2345-7 LOINC H SODIUM 142 mmol/L L=132 H=144 2951-2 LOINC POTASSIUM 3.9 mmol/L L=3.5 H=5.1 2823-3 LOINC CHLORIDE 93 mmol/L L=98 H=107 2075-0 LOINC L CO2 39.0 mmol/L L=22.0 H=30.0 2028-9 LOINC H ANION GAP 14 L=10 H=20 48141-7 LOINC OSMOLALITY 313 mOs/kG L=280 H=296 68776-4 LOINC H BUN/CREAT 22.0 3097-3 LOINC CALCIUM 9.2 mg/dL L=8.3 H=10.5 78774-2 LOINC AST 17 U/L L=15 H=46 1920-8 LOINC ALT 16 U/L L=9 H=72 1742-6 LOINC ALKALINE PHOS 103 U/L L=38 H=126 6768-6 LOINC TOTAL BILI 0.2 mg/dL L=0.2 H=1.3 1975-2 LOINC ALBUMIN 3.9 G/dL L=3.5 H=5.0 1751-7 LOINC TOTAL PROTEIN 7.6 g/L L=6.3 H=8.2 2885-2 LOINC A/G RATIO 1.1 30060-9 LOINC AGE 63 26890-8 LOINC eGFR NON-AFR 21 ml/min eGFR AFR AMER 25 ml/min CHEST 1V - Completed: 2022 06:42 LOINC: EXAM DESCRIPTION: CHEST 1V REASON FOR STUDY: AMS HX Diabetic 490LBS Seizures A-fib Hypertension COPD Comparison Chest 11-05-22 CT Brain 10-26-22 Duration: unknown TECHNIQUE: Single radiographic view(s) of the chest. COMPARISON: Chest radiograph 12/03/2022 FINDINGS: Evaluation is significantly compromised by patient positioning. The heart appears enlarged. There is likely vascular congestion and bilateral airspace opacities . IMPRESSION: Significantly compromised examination due to patient positioning. Likely vascular congestion and bilateral airspace opacities which could reflect edema or pneumonia. THIS IS AN ELECTRONICALLY VERIFIED FINAL REPORT 07/14/2023 7:24 AM - Electronically signed by Paul Justice M.D., JR: Report ID: [id number] Reading Location: [id number] CT BRAIN WO CONTRAST - Compl eted: 07/14/2023 06:42 LOINC: EXAM DESCRIPTION: CT BRAIN WO CONTRAST REASON FOR STUDY: AMS HX Diabetic 490LBS Seizures A-fib Hypertension COPD Comparison Chest 11-05-22 CT Brain 10-26-22 Duration: unknown TECHNIQUE: Axial images acquired through the brain without intravenous contrast. Images stored on PACS. Automated mA/kV exposure control was utilized and patient examination was performed in strict accordance with principles of ALARA. COMPARISON: CT head 10/26/2022 FINDINGS: Evaluation is compromised by patient motion and streak artifact. BRAIN: No definite large infarct or intracranial hemorrhage is seen although evaluation is significantly compromised by motion. EXTRA-AXIAL SPACES: No fluid collections. No masses. CALVARIUM: No acute fracture. SINUSES/MASTOIDS: No air-fluid levels or mucosal thickening. ORBITS: No significant abnormality. OTHER: No other acute findings. IMPRESSION: Significantly compromised exam due to artifact. No definite acute intracranial abnormality is identified given motion artifact. THIS IS AN ELECTRONICALLY VERIFIED FINAL REPORT 07/14/2023 7:25 AM - Electronically signed by Paul Justice M.D., JR: Report ID: [id number] Reading Location: [id number] Social History Type Status Start Date End Date Code Code Syst em Smoking History Unknown if ever smoked [id number] Sex Female Medications Medication Start Date End Date Route Frequency Dose Code Code System Medication Instructions Home Meds OXcarbazepine 150MG Oral Tablet 10/28/2022 Unknown ORAL TWICE A DAY 150 MILLIGRAMS 495419 RxNorm TAKE 150 MILLIGRAMS ORAL TWICE A DAY oxyCODONE HCl 5MG Oral Tablet 10/28/2022 Unknown ORAL NEEDED EVERY 6 HOURS 5 MILLIGRAMS 1351574 RxNorm TAKE 5 MILLIGRAMS ORAL NEEDED EVERY 6 HOURS Acetaminophen 325MG Oral Tablet 12/04/2022 Unknown ORAL NEEDED EVERY 4 HOURS 650 MILLIGRAMS 429384 RxNorm TAKE 650 MILLIGRAMS ORAL NEEDED EVERY 4 HOURS Atorvastatin Calcium 40MG Oral Tablet 12/04/2022 Unknown ORAL AT BEDTIME 40 MILLIGRAMS 322499 RxNorm TAKE 40 MILLIGRAMS ORAL AT BEDTIME Bisacodyl 10MG Rectal Suppository 12/04/2022 Unknown RECTAL NEEDED DAILY 10 MILLIGRAMS 599014 RxNorm INSERT 10 MILLIGRAMS RECTAL NEEDED DAILY Budesonide 0.5MG/2ML Inhalation Suspension 12/04/2022 Unknown NEBULIZ ER RESP DAILY 0.5 MILLIGRAMS 546893 RxNorm 0.5 MILLIGRAMS NEBULIZER RESP DAILY Cetirizine HCl 10MG Oral Tablet 12/04/2022 Unknown ORAL ONCE A DAY 10 MILLIGRAMS 7074726 RxNorm TAKE 10 MILLIGRAMS ORAL ONCE A DAY Ferrous Sulfate 325MG Oral Tablet 12/04/2022 Unknown ORAL EVERY OTHER DAY 325 MILLIGRAMS 562897 RxNorm TAKE 325 MILLIGRAMS ORAL EVERY OTHER DAY Furosemide 40MG Oral Tablet 12/04/2022 Unknown ORAL ONCE A DAY 40 MILLIGRAMS 493527 RxNorm TAKE 40 MILLIGRAMS ORAL ONCE A DAY Gabapentin 300MG Oral Capsule 12/04/2022 Unknown ORAL THREE TIMES A DAY 300 MILLIGRAMS 376184 RxNorm TAKE 300 MILLIGRAMS ORAL THREE TIMES A DAY Ipratropium [place] rol Sulfate 0.5MG/3ML-3MG/ 3ML Inhalation Solution 12/04/2022 Unknown NEBULIZ ER NEEDED EVERY 2 HOURS 1 unit(s) 6145131 RxNorm 1 EACH NEBULIZER NEEDED EVERY 2 HOURS Melatonin 5 MG Oral Tablet 12/04/2022 Unknown ORAL AT BEDTIME 5 MG RxNorm TAKE 5 MG ORAL AT BEDTIME Milk Of Magnesia 2400MG/30ML Oral Suspension 12/04/2022 Unknown ORAL PRN Q72H 30 mL 384619 RxNorm TAKE 30 m L ORAL PRN Q72H Oxymetazoline HCl 0.05% Nasal [place] 12/04/2022 Unknown NOSTRIL BOTH NEEDED EVERY 12 HOURS 2 unit(s) 3322766 RxNorm SPRAY IN 2 EACH NOSTRIL BOTH NEEDED EVERY 12 HOURS Polyethylene Glycol 3350 17 GM/1 Packet Oral Packet 12/04/2022 Unknown ORAL ONCE A DAY 17 GRAM 399540 RxNorm TAKE 17 GRAM ORAL ONCE A DAY Sennosides 8.6MG Oral Tablet 12/04/2022 Unknown ORAL TWICE A DAY 17.2 MILLIGRAMS 800218 RxNorm TAKE 17.2 MILLIGRAMS ORAL TWICE A DAY Sertraline HCl 100MG Oral Tablet 12/04/2022 Unknown ORAL ONCE A DAY 200 MILLIGRAMS 850236 RxNorm TAKE 200 MILLIGRAMS ORAL ONCE A DAY Sodium Chloride Nasal Mist 0.65% Nasal [place] 12/04/2022 Unknown NOSTRIL BOTH TWICE A DAY 1 unit(s) RxNorm SPRAY IN 1 EACH NOSTRIL BOTH TWICE A DAY Xarelto 20MG Oral Tablet 12/04/2022 Unknown ORAL ONCE A DAY 20 MILLIGRAMS 9499829 RxNorm TAKE 20 MILLIGRAMS ORAL ONCE A DAY budesonide-for moterol fumarate 80MCG-4.5MCG/1 Actuat Inhalation Aerosol Liquid 12/04/2022 Unknown INHALAT ION TWICE A DAY 2 unit(s) 5096281 RxNorm 2 EACH INHALATION TWICE A DAY levETIRAcetam 500MG Oral Tablet 12/04/2022 Unknown ORAL TWICE A DAY 500 MILLIGRAMS 067106 RxNorm TAKE 500 MILLIGRAMS ORAL TWICE A DAY Protonix 40 MG Oral Tablet, Delayed Release 12/04/2022 Unknown BY MOUTH 1 TABLET 615052 RxNorm TAKE 1 TABLET BY MOUTH Assessment [...] Status Code Code System METABOLIC ENCEPHALOPATHY active 74615 000 SNOMED-CT METABOLIC ALKALOSIS active 2183142 SNOMED-CT COPD WITH EXACERBATION active 1860977 07 SNOMED-CT BACTEREMIA CAUSED BY GRAM-POSITIVE BACTERIA active 925012634045 SNOME D-CT UTI active 07505530 SNOMED-CT DEHYDRATION active 84577538 SNOMED-C T HYPOMAGNESEMIA active 160435471 SNOME D-CT EPILEPSY active 80665893 SNOMED-CT Allergies and Adverse Reactions Allergy Substance Reaction Severity Start Date Concern Status Co de Code System PENICILLIN Active Plan of Treatment Song Follow Up Visit 09/22/2023 Encounters Encounter Diagnosis Start Date Code Code Sys tem Respiratory failure, unspecified with hypercapnia 09/2022 SNOMED-CT Personal Care Team Section Performer Name Performer Role Active Date Inactive MICHEAL Krishnamurthy PCP - Primary care physician 2022-09-24 2023-06-03 JACINTA CUNNINGHAM PCP - Primary care physician 2023-07-14 Imaging Narrative Notes
--- OUTSIDE RECORDS SUMMARY | 2025-09-02 10:26 | XMS_ITS ---
Author Organization [facility] Address [address] [place] [address] Phone Care Team Providers [place] Bailiff Name Role Phone No, Physician Primary Care Provider [phone] Terence Garcia MD Unavailable [phone] Sophia Thomas MD Unavailable [phone] Dialysis Access Sites Type Status Location Placement [...] BLOOD, FECAL (FIT) Routine 08/02/2017 7:41 AM [facility] MAMMOGRAPHY Routine 01/11/2002 COLONOSCOPY Routine 10/14/2001 from [...] 08/04/2022 Assessment & Plan (08/04/2022 10:52 AM [facility]SEL): Had normal K on admission. K last 2 days has been 5.1, 5.3. whole blood K of 5.2. Creatinine stable. Suspect due to immobilization vs resolving YAYA. -treat with lokelma x 2 days -will need repeat labs at SNF in 3-7 days. CKD (chronic kidney disease) stage 3, GFR 30-59 ml/min 07/28/2022 Assessment & Plan (08/04/2022 10:50 AM [facility]SEL): Mild YAYA on top of CKD3 - improved, now creat stable at 1.29. (though might be artificially increased due to being on bactrim) - avoid nephrotoxins and renally dose meds Assessment & Plan (08/02/2022 2:25 PM [facility] COUNSEL): Mild yaya on top of CKD 3 - will continue to monitor with daily BMP - avoid nephrotoxins and renally dose meds - creatinine stable but not back to baseline, Bactrim may be contributing to cr lab elevation - IVF today and reassess Assessment & Plan (08/01/2022 11:07 AM [facility]SEL): Mild yaya on top of CKD 3 - will continue to monitor with daily BMP - avoid nephrotoxins and renally dose meds - creatinine downtrending Assessment & Plan (07/31/2022 1:52 PM [facility] COUNSEL): Mild yaya on top of CKD 3 - will continue to monitor with daily BMP - Hold am lasix, add small IVF bolus - avoid nephrotoxins and renally dose meds - creatinine downtrending Assessment & Plan (07/30/2022 1:34 PM [facility]): Mild yaya on top of CKD 3 - will continue to monitor with daily BMP - slight bump today - Hold am lasix, add small IVF bolus - avoid nephrotoxins and renally dose meds Assessment & Plan (07/28/2022 2:32 PM [facility] COUNSEL): Mild yaya on top of CKD 3 - will continue to monitor with daily BMP - Hold am lasix - send urinalysis - avoid nephrotoxins and renally dose meds Cellulitis of abdominal wall 07/27/2022 Assessment & Plan (08/04/2022 10:49 AM [facility]SEL): Pt presenting with abdominal wall erythema and [...] resolved Assessment & Plan (08/02/2022 2:23 PM [facility] COUNSEL): Pt presenting with abdominal wall erythema and [...] improving Assessment & Plan (08/01/2022 10:56 AM [facility] COUNSEL): Pt presenting with abdominal wall erythema and [...] improving Assessment & Plan (07/31/2022 1:51 PM [facility]SEL): Pt presenting with abdominal wall erythema and [...] positive Assessment & Plan (07/30/2022 1:32 PM [facility]SEL): Pt presenting with abdominal wall erythema and [...] contaminant Assessment & Plan (07/29/2022 2:29 PM [facility]SEL): Pt presenting with abdominal wall erythema and [...] appropriate Assessment & Plan (07/28/2022 2:24 PM [facility] COUNSEL): Pt presenting with abdominal wall erythema and [...] 01/21/2022 Assessment & Plan (08/03/2022 3:28 PM QUEEN'S COUNSEL): CT in January 2022 showed 4 cm [...] radiology they have such a scanner at [facility] Assessment & Plan (08/02/2022 2:24 PM QUEEN'S COUNSEL): CT in January 2022 showed 4 cm [...] radiology they have such a scanner at [facility] Assessment & Plan (08/01/2022 11:05 AM QUEEN'S COUNSEL): CT in January 2022 showed 4 cm [...] not Assessment & Plan (07/31/2022 1:51 PM QUEEN'S COUNSEL): CT in January 2022 showed 4 cm indeterminant renal mass, has progressed since previous imaging and was recommended to have MRI outpatient but patient was not scanned. - ordered MRI and attempting to get as inpatient Assessment & Plan (07/30/2022 1:33 PM QUEEN'S COUNSEL): CT in January 2022 showed 4 cm indeterminant renal mass, has progressed since previous imaging and was recommended to have MRI outpatient but patient was not scanned. - ordered MRI Assessment & Plan (07/28/2022 2:30 PM QUEEN'S COUNSEL): CT in January 2022 showed 4 cm [...] hypoxia Assessment & Plan (08/04/2022 10:49 AM [facility] COUNSEL): Pt with Hx of COPD (former smoker), SHELDON and OHS on 3L O2 chronically and Bipap At baseline - Cont home ICS/LABA (formulary substitute for home symbicort) and duonebs prn, bipap and supplemental O2. Assessment & Plan (08/02/2022 2:23 PM [facility] COUNSEL): Pt with Hx of COPD (former smoker), SHELDON and OHS on 3L O2 chronically and Bipap - Cont home ICS/LABA (formulary substitute for home symbicort) and duonebs prn, bipap and supplemental O2. Assessment & Plan (08/01/2022 10:56 AM [facility] COUNSEL): Pt with Hx of COPD (former smoker), SHELDON and OHS on 3L O2 chronically and Bipap - Cont home ICS/LABA (formulary substitute for home symbicort) and duonebs prn, bipap and supplemental O2. Assessment & Plan (07/31/2022 1:51 PM [facility]S COUNSEL): Pt with Hx of COPD (former smoker), SHELDON and OHS on 3L O2 chronically and Bipap - Cont home ICS/LABA (formulary substitute for home symbicort) and duonebs prn, bipap and supplemental O2. Assessment & Plan (07/30/2022 1:32 PM [facility]S COUNSEL): Pt with Hx of COPD (former smoker), SHELDON and OHS on 3L O2 chronically and Bipap - Cont home ICS/LABA (formulary substitute for home symbicort) and duonebs prn, bipap and supplemental O2. Assessment & Plan (07/29/2022 2:42 PM [facility] COUNSEL): Pt with Hx of COPD (former smoker), SHELDON and OHS on 3L O2 chronically and Bipap - Cont home ICS/LABA (formulary substitute for home symbicort) and duonebs prn, bipap and supplemental O2. Assessment & Plan (07/28/2022 2:25 PM [facility] COUNSEL): Pt with Hx of COPD (former smoker), [...] 04/02/2021 Assessment & Plan (08/04/2022 10:50 AM [facility] COUNSEL): Patient with hx of left knee surgery 2/2 fracture and Right knee osteoarthritis. Also with hx of gout of Right Toe. Right knee exam is benign. - uric acid elevated - knee x-ray with OA - continue tylenol and oxycodone, added lidocaine patch Assessment & Plan (08/02/2022 2:22 PM [facility] COUNSEL): Patient with hx of left knee surgery [...] (12/17/2021 1:05 PM CDT): - CPAP nightly. notes report CPAP at 6mm H2O with 2L O2 bleed in Assessment & Plan (12/16/2021 3:38 PM CDT): - CPAP nightly. notes report CPAP at 6mm H2O with 2L O2 bleed in Assessment & Plan (12/15/2021 10:05 AM CDT): - CPAP nightly. notes report CPAP at 6mm H2O with 2L O2 bleed in Assessment & Plan (12/14/2021 11:36 AM CDT): - CPAP nightly. notes report CPAP at 6mm H2O with 2L O2 bleed in Assessment & Plan (12/13/2021 10:36 AM CDT): - CPAP nightly. notes report CPAP at 6mm H2O with [...] 12/10/2018 Assessment & Plan (08/03/2022 3:28 PM [facility]SEL): Continue home synthyroid Assessment & Plan (08/02/2022 2:24 PM [facility] COUNSEL): Continue home synthyroid Assessment & Plan (08/01/2022 10:57 AM [facility] COUNSEL): Continue home synthyroid Assessment & Plan (07/31/2022 1:51 PM [facility] COUNSEL): Continue home synthyroid Assessment & Plan (07/30/2022 1:33 PM [facility] COUNSEL): Continue home synthyroid Assessment & Plan (07/27/2022 8:24 PM [facility] COUNSEL): Continue home synthyroid Assessment & Plan (01/23/2022 [...] 03/19/2018 Assessment & Plan (08/03/2022 3:26 PM [facility] COUNSEL): Continue home xarelto Assessment & Plan (08/02/2022 2:24 PM [facility] COUNSEL): Continue home xarelto Assessment & Plan (08/01/2022 10:57 AM [facility]S COUNSEL): Continue home xarelto Assessment & Plan (07/31/2022 1:51 PM [facility]'S COUNSEL): Continue home xarelto Assessment & Plan (07/30/2022 1:33 PM [facility]'S COUNSEL): Continue home xarelto Assessment & Plan (07/27/2022 8:25 PM [facility]S COUNSEL): Continue home xarelto Assessment & Plan (01/23/2022 [...] embolus less than 3 months ago no [place] details she has had numerous hospitalizations in [...] (10/27/2017): Added automatically from request for surgery [id number] Restless leg 10/18/2017 Assessment & Plan (08/03/2022 3:28 PM [facility]SEL): Continue pramipexole Assessment & Plan (08/02/2022 2:23 PM [facility] COUNSEL): Continue pramipexole Assessment & Plan (08/01/2022 10:57 AM [facility]S COUNSEL): Continue pramipexole Assessment & Plan (07/31/2022 1:51 PM QUEEN'S COUNSEL): Continue pramipexole Assessment & Plan (07/30/2022 1:33 PM [facility]'S COUNSEL): Continue pramipexole Assessment & Plan (07/27/2022 8:23 PM QUE[facility]'S COUNSEL): Continue pramipexole Assessment & Plan (12/17/2021 1:04 [...] 10/18/2017 Assessment & Plan (10/18/2017 6:00 PM [facility]SEL): Informed patient today that she would need to comply with this office recommendations on management of her multiple chronic conditions, failure to do so, would mean that she would need to find another primary care provider. Chronic pain syndrome 10/18/2017 Assessment & Plan (12/17/2021 1:04 PM CDT): Chronic pain of bilateral legs s/p fracture, shoulder and back. On [place] 7.5-325 q6h prn at home - tylenol 1g q6h prn, oxycodone 10mg q6h prn - home gabapentin 100mg TID - scheduled and prn bowel regimen - started lidoderm patches for most painful area Assessment & Plan (12/16/2021 3:37 PM CDT): chronic pain of bilateral legs s/p fracture, shoulder and back. On [place] 7.5-325 q6h prn at home - tylenol 1g q6h prn, oxycodone 10mg q6h prn - home gabapentin 100mg TID - scheduled and prn bowel regimen - started lidoderm patches for most painful area Assessment & Plan (12/15/2021 10:05 AM CDT): chronic pain of bilateral legs s/p fracture, shoulder and back. On [place] 7.5-325 q6h prn at home - tylenol 1g q6h prn, oxycodone 10mg q6h prn - home gabapentin 100mg TID - scheduled and prn bowel regimen - started lidoderm patches for most painful area Assessment & Plan (12/14/2021 11:36 AM CDT): chronic pain of bilateral legs s/p fracture, shoulder and back. On [place] 7.5-325 q6h prn at home - tylenol 1g q6h prn, oxycodone 10mg q6h prn - home gabapentin 100mg TID - scheduled and prn bowel regimen - started lidoderm patches for most painful area Assessment & Plan (12/13/2021 10:36 AM CDT): chronic pain of bilateral legs s/p fracture, shoulder and back. On [place] 7.5-325 q6h prn at home - tylenol 1g q6h prn, oxycodone 10mg q6h prn - home gabapentin 100mg TID - scheduled and prn bowel regimen - started lidoderm patches for most painful area Assessment & Plan (12/12/2021 9:35 AM CDT): chronic pain of bilateral legs s/p fracture, shoulder and back. On [place] 7.5-325 q6h prn at home - tylenol [...] events Assessment & Plan (10/18/2017 5:57 PM [facility] COUNSEL): Referred to pain mgmt for further eval/tx. Wound dehiscence 10/18/2017 Assessment & Plan (10/18/2017 5:58 PM [facility] COUNSEL): Referral given 2 months ago to be seen by wound care. Patient did not follow up with them. Seizure disorder 07/20/2017 Assessment & Plan (08/03/2022 3:28 PM [facility] COUNSEL): Controlled. Continue home keppra & oxcarbazapine. Assessment & Plan (08/02/2022 2:23 PM [facility]EN[facility]S COUNSEL): Controlled. Continue home keppra & oxcarbazapine. Assessment & Plan (08/01/2022 10:57 AM QUEEN'S COUNSEL): Controlled. Continue home keppra & oxcarbazapine. Assessment & Plan (07/31/2022 1:51 PM QUEEN'S COUNSEL): Controlled. Continue home keppra & oxcarbazapine. Assessment & Plan (07/30/2022 1:33 PM QUEEN'S COUNSEL): Controlled. Continue home keppra & oxcarbazapine. Assessment & Plan (07/27/2022 8:25 PM QUEEN[facility]S COUNSEL): Controlled. Continue home keppra & oxcarbazapine. Assessment [...] at [facility] in [facility]. Plans continue gabapentin this time Assessment & Plan (10/18/2017 5:56 PM QUEEN[facility]S COUNSEL): Self-reported, patient was referred to neurology 2 months ago immediately after she reported a seizure. Patient did not mellisa appt with neurology, patient encouraged to comply. Personality disorder 07/20/2017 Assessment & Plan (03/19/2018 2:33 PM CDT): Psychiatric referral made Assessment & Plan (10/18/2017 5:53 PM [facility]EN[facility]S COUNSEL): Encouraged patient to f/u through with Psychiatry referral. Bipolar 1 disorder, depressed, mild 07/20/2017 Assessment & Plan (08/03/2022 3:17 PM [facility] COUNSEL): Symptoms controlled, cont home regimen of sertraline, Seroquel Assessment & Plan (08/02/2022 2:23 PM [facility] COUNSEL): Symptoms controlled, cont home regimen of sertraline, Seroquel Assessment & Plan (08/01/2022 10:56 AM QUEEN'S COUNSEL): Symptoms controlled, cont home regimen of sertraline, Seroquel Assessment & Plan (07/31/2022 1:51 PM [facility]EN'S COUNSEL): Symptoms controlled, cont home regimen of sertraline, Seroquel Assessment & Plan (07/30/2022 1:33 PM QUEEN'S COUNSEL): Symptoms controlled, cont home regimen of sertraline, Seroquel Assessment & Plan (07/29/2022 2:42 PM [facility]EN[facility]S COUNSEL): Symptoms controlled, cont home regimen of sertraline, Seroquel Assessment & Plan (07/27/2022 8:23 PM [facility]S COUNSEL): Symptoms controlled, cont home regimen of sertraline, [...] hallucinations. Assessment & Plan (10/18/2017 5:53 PM QUEEN'S COUNSEL): Rx refills given. Encouraged patient to f/u [...] therapy Assessment & Plan (10/18/2017 5:51 PM [facility]EN[facility] COUNSEL): Hypertension is improving with treatment. Continue current treatment regimen. Dietary sodium restriction. Weight loss. Continue current medications. Blood pressure will be reassessed at the next regular appointment. Insomnia 07/20/2017 Assessment & Plan (10/18/2017 5:52 PM QUEEN'S COUNSEL): Will not fill both trazodone AND ambien, [...] 07/20/2017 Assessment & Plan (10/18/2017 5:56 PM QUEEN'S COUNSEL): Encouraged patient to follow through with nephrology referral she was given 2 months ago. Referral re-printed. Class 3 severe obesity with body mass index (BMI) greater than or equal to 70 in adult 07/20/2017 Assessment & Plan (08/03/2022 3:26 PM QUEEN[facility]S COUNSEL): Pt with severe obesity, complicated by SHELDON/OHS. Leg fractures in 2020 managed nonoperatively, pt has been bed bound and living in SNF since that time. Assessment & Plan (08/02/2022 2:23 PM QUEEN[facility]S COUNSEL): Pt with severe obesity, complicated by SHELDON/OHS. Leg fractures in 2020 managed nonoperatively, pt has been bed bound and living in SNF since that time. Assessment & Plan (08/01/2022 10:56 AM [facility]S COUNSEL): Pt with severe obesity, complicated by SHELDON/OHS. Leg fractures in 2020 managed nonoperatively, pt has been bed bound and living in SNF since that time. Assessment & Plan (07/31/2022 1:51 PM [facility]S COUNSEL): Pt with severe obesity, complicated by SHELDON/OHS. Leg fractures in 2020 managed nonoperatively, pt has been bed bound and living in SNF since that time. Assessment & Plan (07/30/2022 1:33 PM QUEEN[facility]S COUNSEL): Pt with severe obesity, complicated by SHELDON/OHS. Leg fractures in 2020 managed nonoperatively, pt has been bed bound and living in SNF since that time. Assessment & Plan (07/27/2022 8:25 PM QUEEN[facility]S COUNSEL): Pt with severe obesity, complicated by SHELDON/OHS. [...] informs me that Dr. Panda in [facility] is willing to move this pannus patient referred to this particular physician to address this problem soon as possible. 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 Assessment & Plan (10/18/2017 5:56 PM QUEEN'S COUNSEL): Obesity is unchanged. Discussed the patient's BMI. [...] = 0.6 oz pur e alcohol) Occasional [employer] Answer Date Recorded In the past 12 months has [employer], gas, oil, or water [employer] threatened to shut off services in your home? No 01/15/2025 Social Connection and Isolation Panel Answer Date Recorded In a typical week, how many times do you talk on the phone with family, friends, or neighbors? Once a week 01/15/2025 How often do you get together with friends or re latives? Once a week 01/15/2025 How often do you attend holiness or mormon serv ices? Never 01/15/2025 Do you belong to any clubs o r organizations such as holiness groups, unions, fraternal or athletic groups, or [...] place to sleep or slept in a care home (including now)? No 07/30/2022 Housing Stability [...] any time in the past 12 m [facility], were you homeless or living in a care home (including now)? No 01/15/2025 Personal Safety [...] on 19. Hep C Ab Nonreactive Nonreactive [facility] Comment: Interpretive Data Nonreactive: Antibodies to HCV [...] last revised on 2019. HepBsAg Nonreactive Nonreactive [facility] Blood 01/15/2025 3:30 PM CDT 01/15/2025 4:03 PM CDT Ajith Cruz MD LAB MICROBIOLOGY - GENERAL OR DERABLES Final Result Performing Organization Address City/[facility]/ZIP Co de Phone Number JOHAN [id number] [address] M Department [place] [address] * Occult blood, fecal non neoplasm screening (08/02/2017 7:41 AM QUEEN'S COUNSEL) Pathologist [facility] Occult blood, fecal Negative Negative [facility] ([facility]) Collection date , feces [id number] [facility] Collection time 1, feces 739 [facility] Stool 08/02/2017 7:41 AM [facility]S COUNSEL 08/02/2017 7:44 AM QUEEN'S COUNSEL Pam Rivas MD LAB BODY FLUIDS AND STOOLS ORDER SARIKA Final Result [facility] [place] [address] * MAMMOGRAPHY (01/11/2002) Pathologist [facility] Mammogram Normal Historical Provider HEALTH MAINTENANCE Final Result * COLONOSCOPY (10/14/2001) Pathologist [facility] Colonoscopy Unknown Historical Provider HEALTH MAINTENANCE Final Result from Last 3 Months or Most Recently Relevant to Health Maintenance
--- OUTSIDE RECORDS SUMMARY | 2025-09-02 10:27 | XMS_ITS ---
Author Organization Unknown Address [address] [place] [address] [phone] Phone Care Team Providers Care Job Forwarder Name Role Phone FRANCISCASEAN CHIU Attending Unavailable OCTAVIO NILEBIMAL Mcguire Primary Unavailable Immunization Immunization Date Status [...] mcg/0.5 mL 08/27/2023 Completed 312 CVX Results BB ABO AND RH TYPE - Collect Date/Time: 08/04/2023 13:45 [facility] ID: [id number] [address] [place] [address], [phone] LOINC: 62169-7 Test Value Unit Reference Range Code Code System Flag ABO TYPE O 883-9 LOINC RH TYPE POSITIVE Social History Type Status Start Date End Date Code Code Syst em Smoking History Unknown if ever smoked [id number] Sex Female Medications Medication Start Date End Date Route Frequency Dose Code Code System Medication Instructions Home Meds OXcarbazepine 150MG Oral Tablet 10/28/2022 Unknown ORAL TWICE A DAY 150 MILLIGRAMS 060429 RxNorm TAKE 150 MILLIGRAMS ORAL TWICE A DAY oxyCODONE HCl 5MG Oral Tablet 10/28/2022 Unknown ORAL NEEDED EVERY 6 HOURS 5 MILLIGRAMS 4684679 RxNorm TAKE 5 MILLIGRAMS ORAL NEEDED EVERY 6 HOURS Acetaminophen 325MG Oral Tablet 12/04/2022 Unknown ORAL NEEDED EVERY 4 HOURS 650 MILLIGRAMS 106551 RxNorm TAKE 650 MILLIGRAMS ORAL NEEDED EVERY 4 HOURS Atorvastatin Calcium 40MG Oral Tablet 12/04/2022 Unknown ORAL AT BEDTIME 40 MILLIGRAMS 635536 RxNorm TAKE 40 MILLIGRAMS ORAL AT BEDTIME Bisacodyl 10MG Rectal Suppository 12/04/2022 Unknown RECTAL NEEDED DAILY 10 MILLIGRAMS 693856 RxNorm INSERT 10 MILLIGRAMS RECTAL NEEDED DAILY Budesonide 0.5MG/2ML Inhalation Suspension 12/04/2022 Unknown NEBULIZ ER RESP DAILY 0.5 MILLIGRAMS 666557 RxNorm 0.5 MILLIGRAMS NEBULIZER RESP DAILY Cetirizine HCl 10MG Oral Tablet 12/04/2022 Unknown ORAL ONCE A DAY 10 MILLIGRAMS 4694674 RxNorm TAKE 10 MILLIGRAMS ORAL ONCE A DAY Ferrous Sulfate 325MG Oral Tablet 12/04/2022 Unknown ORAL EVERY OTHER DAY 325 MILLIGRAMS 255510 RxNorm TAKE 325 MILLIGRAMS ORAL EVERY OTHER DAY Furosemide 40MG Oral Tablet 12/04/2022 Unknown ORAL ONCE A DAY 40 MILLIGRAMS 371609 RxNorm TAKE 40 MILLIGRAMS ORAL ONCE A DAY Gabapentin 300MG Oral Capsule 12/04/2022 Unknown ORAL THREE TIMES A DAY 300 MILLIGRAMS 224126 RxNorm TAKE 300 MILLIGRAMS ORAL THREE TIMES A DAY Ipratropium [place] rol Sulfate 0.5MG/3ML-3MG/ 3ML Inhalation Solution 12/04/2022 Unknown NEBULIZ ER NEEDED EVERY 2 HOURS 1 unit(s) 3554479 RxNorm 1 EACH NEBULIZER NEEDED EVERY 2 HOURS Melatonin 5 MG Oral Tablet 12/04/2022 Unknown ORAL AT BEDTIME 5 MG RxNorm TAKE 5 MG ORAL AT BEDTIME Milk Of Magnesia 2400MG/30ML Oral Suspension 12/04/2022 Unknown ORAL PRN Q72H 30 mL 948115 RxNorm TAKE 30 m L ORAL PRN Q72H Oxymetazoline HCl 0.05% Nasal Theodore 12/04/2022 Unknown NOSTRIL BOTH NEEDED EVERY 12 HOURS 2 unit(s) 4672776 RxNorm SPRAY IN 2 EACH NOSTRIL BOTH NEEDED EVERY 12 HOURS Polyethylene Glycol 3350 17 GM/1 Packet Oral Packet 12/04/2022 Unknown ORAL ONCE A DAY 17 GRAM 386291 RxNorm TAKE 17 GRAM ORAL ONCE A DAY Sennosides 8.6MG Oral Tablet 12/04/2022 Unknown ORAL TWICE A DAY 17.2 MILLIGRAMS 231799 RxNorm TAKE 17.2 MILLIGRAMS ORAL TWICE A DAY Sertraline HCl 100MG Oral Tablet 12/04/2022 Unknown ORAL ONCE A DAY 200 MILLIGRAMS 745704 RxNorm TAKE 200 MILLIGRAMS ORAL ONCE A DAY Sodium Chloride Nasal Mist 0.65% Nasal Theodore 12/04/2022 Unknown NOSTRIL BOTH TWICE A DAY 1 unit(s) RxNorm SPRAY IN 1 EACH NOSTRIL BOTH TWICE A DAY Xarelto 20MG Oral Tablet 12/04/2022 Unknown ORAL ONCE A DAY 20 MILLIGRAMS 1985936 RxNorm TAKE 20 MILLIGRAMS ORAL ONCE A DAY budesonide-for moterol fumarate 80MCG-4.5MCG/1 Actuat Inhalation Aerosol Liquid 12/04/2022 Unknown INHALAT ION TWICE A DAY 2 unit(s) 6366586 RxNorm 2 EACH INHALATION TWICE A DAY levETIRAcetam 500MG Oral Tablet 12/04/2022 Unknown ORAL TWICE A DAY 500 MILLIGRAMS 197201 RxNorm TAKE 500 MILLIGRAMS ORAL TWICE A DAY Protonix 40 MG Oral Tablet, Delayed Release 12/04/2022 Unknown BY MOUTH 1 TABLET 210904 RxNorm TAKE 1 TABLET BY MOUTH Assessment You had the following problems:METABOLIC ENCEPHALOPATHYMETABOLIC ALKALOSISCOPD WITH EXACERBATIONBACTEREMIA CAUSED BY GRAM-POSITIVE BACTERIAUTIDEHYDRATIONHYPOMAGNESEMIAEPILEPSY Hospital Discharge Instructions Should you have any questions prior to discharge, please contact a member of your healthcare team. If you have left the hospital and have any questions, please contact your primary care physician. Reason For Referral No Data Found Procedures Procedure Name Date Status Code Code Syste m Transfusion, blood or blood components 08/05/2023 complete d 51872 CPT Problems Problem Start Date Resolved Date Status Code Code System METABOLIC ENCEPHALOPATHY active 24599 000 SNOMED-CT METABOLIC ALKALOSIS active 1908166 SNOMED-CT COPD WITH EXACERBATION active 1015520 07 SNOMED-CT BACTEREMIA CAUSED BY GRAM-POSITIVE BACTERIA active 997086029835 SNOME D-CT UTI active 18830321 SNOMED-CT DEHYDRATION active 87737005 SNOMED-C T HYPOMAGNESEMIA active 100612260 SNOME D-CT EPILEPSY active 78100979 SNOMED-CT Allergies and Adverse Reactions Allergy Substance Reaction Severity Start Date Concern Status Co de Code System PENICILLIN Active Plan of Treatment Song Follow Up Visit 09/22/2023 Encounters Encounter Diagnosis Start Date Code Code Sys tem Anemia, unspecified 08/04/2023 SNOMED-C T Personal Care Team Section Performer Name Performer Role Active Date Inactive MICHEAL Krishnamurthy PCP - Primary care physician 2022-09-24 2023-06-03 JACINTA CUNNINGHMA PCP - Primary care physician 2023-07-14 Discharge Summary Notes [facility] 08/04/2023 16:55 Blood Transfusion Form [address] [place] [address] Blood Transfusion Requisition Main Line: [phone] Patient: DINA Christine Gender: F MR#: [id number] Service Code: L Room: [facility] Address: [address] [place] [address] Admitting Physician: FRANCISCA URIAS Secondary Physician: Family Physician: OCTAVIO DOWD City: [place] State: [place] Zip Code: [address] Date of : [id number] Age: 63 Admit Date: 11221016 Admit Time: 1318 Date: 11211016 Time: 1649 p. 1 of 4 To Be Completed By Lab Order Number [id number] Red Arm Band Number [id number] PATIENT/DONOR INFORMATION Patient MR # [id number] Component LRBC Platelets FFP Patient's ABO/RH O POSITIVE Antibody Screen NEGATIVE Donor's ABO/Rh O POSITIVE Donor Unit # [id number] Unit Expiration Date 09/11/2023 Crossmatch COMPATIBLE Performed by Vic REDDY MLS ASCP Date 608754 Time 1600 Called to BLAYNE RN Date 352449 Time 1655 Issued by Jose Raul BACAS Date 965636 Time 1221 Issued to Nahed JACKSON RN Date 962586 Time 1221 Transfusion must be initiated within 30 minutes AND completed within 4 hours of time issued by Lab Comments: Comments: To Be Completed By Nursing IDENTIFICATION TO BE COMPLETED BEFORE BLOOD IS ADMINISTERED Pt's Name (Red Band) Fadia Arroyo Pt's Medical Record # or (Red band) [id number] Pt's Name (From Bag) Fadia Arroyo Pt's Medical Record # or (From Bag) [id number] Donor Number (From Bag) [id number] ABO/Rh (From Bag) O+ Red arm band ID # [id number] SIGNATURES BELOW VERIFY THAT FOLLOWING 7 ITEMS WERE COMPLETED BY RNs STARTING THE TRANSFUSION MD's order has been checked to ensure that the correct component is being given. Consent Form for Blood Transfusion has been signed and is in the EMR/chart. Name & Medical Record # on wrist band identical to Blood Transfusion Record (Transfusion Tag) ABO/Rh on the donor unit matches & is compatible w/ the patient's ABO/Rh on this Transfusion Record. Donor Unit Number matches the Unit Number listed on this Blood Trasfusion Record. Expiration date and crossmatch validity has been verified on unit labeled for this patient. Request for crossmatch specifies the identity of persons performing the crossmatch and interpretation of compatibility. Notes: Notes: Karely Morales RN Rossi Jackson RN Nurse #1 Signature Nurse #2 Signature [address] [place] [address] Blood Transfusion Main Line: [phone] Patient: DINA Christine Gender: F MR#: [id number] Service Code: L Room: [facility] Address: [address] [place] [address] Admitting Physician: FRANCISCA URIAS Secondary Physician: Family Physician: OCTAVIO DOWD City: [place] State: [place] Zip Code: [address] Date of : [id number] Age: 63 Admit Date: 11221016 Admit Time: 1317 Date: 11211016 Time: 1649 p. 2 of 4 RECORD OF PATIENT'S RESPONSE Date 11221016 Time Temp BP Pulse Resp. Initials Prior to Transfusion 1205 97.5 61 19 MTS 149/62 Start Time 1230 xxx xxx xxx xxx MTS 15 min check 1242 98.2 64 20 MTS 150/68 30 min check 1300 97.7 59 20 MTS 140/57 45 min check 1315 97.8 60 20 mts 142/67 Stop Time 1443 xxx xxx xxx xxx mts 15 min Post-Transfusion Check 1505 97.5 55 21 mts 159/58 Notes: Notes: Amount Given: Partial Unit/ milliliters transfused OR 1/4 1/2 3/4 Full Unit Were ANY of these Symptoms Exhibited? NO Symptoms Noted or Reported YES - Axel all that apply ... DOCUMENTATION ON THIS FORM IS COMPLETE. (REMEMBER TO eSIGN AT THE BOTTOM OF THIS PAGE.) Fever >1 C or >2 F from Baseline Pruritus Uticaria Nausea Vomiting Elevated BP / Decreased BP Rapid Heart Rate Shortness of Breath Chest Pain or Tightness Back Pain Flank Pain Loss of Consciousness Other: Other: Other: Nurse Signature: Rossi Jackson RN Date: 12221016 Time: 150 Nurse Siganture: Date: Time: [place] [address] Transfusion Reaction Investigation Main Line: [phone] Patient: DINA Christine Gender: F MR#: [id number] Service Code: L Room: [facility] Address: [address] [place] [address] Admitting Physician: FRANCISCA URIAS Secondary Physician: Family Physician: OCTAVIO DOWD City: [place] State: [place] Zip Code: [address] Date of : [id number] Age: 63 Admit Date: 11221016 Admit Time: 1317 Date: Time: p. 3 4 TO BE COMPLETED BY NURSING Transfusion Start Time: Transfusion Stop Time: Total Transfusion Time: hour(s) minute(s) Total Amount Infused: milliliters Donor Number Vital Sign Pre-Transfusion Post-Transfusion Temperature Pulse Blood Pressure Fluids and/or Medications given with transfusion: Recent fever not related to this transfusion? Yes No Drug Allergies? Yes No Additional Comments: Additional Comments: Nurse Signature Date Time [place] Transfusion Reaction Investigation Main Line: [phone] Patient: DINA Christine Gender: F MR#: [id number] Service Code: Room: [facility] Address: [address] [place] [address] Admitting Physician: FRANCISCA URIAS Secondary Physician: Family Physician: OCTAIVO DOWD City: [place] State: [place] Zip Code: [address] Date of : [id number] Age: 63 Admit Date: 11221016 Admit Time: 1317 Date: Time: p. 4 of 4 Blood Bank Report - Laboratory Use Only Required Testing: Contact Cut Off Sawyer Log to report suspected transfusion reaction For Uticarial reactions WITHOUT fever, perform steps 1, 2 and 3 only. For all other reactions, perform steps 1 - 8. For temp rise >1C or >2F, perform steps 1 - 10. Unit # Unit returned to Laboratory: Date Time Volume ml 1. Check clerical work for discrepancy Checks Does not check 2. Check appearance of patient's serum PRE POST 3. Direct Antiglobulin Test PRE + - POST + - 4. Patient: Pre-Transfusion Group Rho (D) + - 5. Patient: Post-Transfusion Group Rho (D) + - 6. Donor Unit: Tail Segment Group Rho (D) + - 7. Urine color (first void after discontinuation of blood) 8. Urine Free Hemoglobin 9. Gram Stain results on donor unit + - Perform when temp is >1C or >2F above baseline 10. Culture on Donor Unit Set-up Date Results Comments: Comments: IF THERE IS EVIDENCE OF INCOMPATIBILITY, CALL PHYSICIAN AND PATHOLOGIST STAT If there is no evidence of any discrepancy, DO NOT proceed to steps 11, 12, or 13. 11. Patient: Pre-Transfusion Antibody Screen + - X-match Compatible Non- compatible 12. Patient: Post-Transfusion Antibody Screen + - X-match Compatible Non- compatible 13. Blood culture on patient Date Results Signature of Technologist Date Time Take Away Man Comments/Findings: Take Away Man Signature Date [facility] 08/04/2023 17:01 [place] [address] Blood Transfusion Requisition Main Line: [phone] Patient: DINA Christine Gender: F MR#: [id number] Service Code: L Room: [facility] Address: [address] [place] [address] Admitting Physician: FRANCISCA URIAS Secondary Physician: Family Physician: OCTAVIO DOWD City: [place] State: [place] Zip Code: [address] Date of : [id number] Age: 63 Admit Date: 11221016 Admit Time: 8 Date: 11211016 Time: 1659 p. 1 of 4 To Be Completed By Lab Order Number [id number] Red Arm Band Number [id number] PATIENT/DONOR INFORMATION Patient MR # [id number] Component LRBC Platelets FFP Patient's ABO/RH O POSITIVE Antibody Screen NEGATIVE Donor's ABO/Rh O POSITIVE Donor Unit # [id number] Unit Expiration Date 09/11/2023 Crossmatch COMPATIBLE Performed by Vic REDDY MLS ASCP Date 11211016 Time 1600 Called to BLAYNE RN Date 658442 Time 1655 Issued by Jose Raul JAICNTO MLS Date 613870 Time 1546 Issued to Cary LOVETT LPN Date 296092 Time 1546 Transfusion must be initiated within 30 minutes AND completed within 4 hours of time issued by Lab Comments: Comments: To Be Completed By Nursing IDENTIFICATION TO BE COMPLETED BEFORE BLOOD IS ADMINISTERED Pt's Name (Red Band) Fadia Arroyo Pt's Medical Record # or (Red band) 1960 Pt's Name (From Bag) Fadia Arroyo Pt's Medical Record # or (From Bag) 1960 Donor Number (From Bag) [id number] ABO/Rh (From Bag) O+ Red arm band ID # [id number] SIGNATURES BELOW VERIFY THAT FOLLOWING 7 ITEMS WERE COMPLETED BY RNs STARTING THE TRANSFUSION MD's order has been checked to ensure that the correct component is being given. Consent Form for Blood Transfusion has been signed and is in the EMR/chart. Name & Medical Record # on wrist band identical to Blood Transfusion Record (Transfusion Tag) ABO/Rh on the donor unit matches & is compatible w/ the patient's ABO/Rh on this Transfusion Record. Donor Unit Number matches the Unit Number listed on this Blood Trasfusion Record. Expiration date and crossmatch validity has been verified on unit labeled for this patient. Request for crossmatch specifies the identity of persons performing the crossmatch and interpretation of compatibility. Notes: Notes: Dat Nurse #1 Signature Nurse #2 Signature [address] [place] [address] Blood Transfusion Main Line: [phone] Patient: DINA Christine Gender: F MR#: [id number] Service Code: Room: [facility] Address: [address] [place] [address] Admitting Physician: FRANCISCA URIAS Secondary Physician: Family Physician: OCTAVIO DOWD City: [place] State: [place] Zip Code: [address] Date of : [id number] Age: 63 Admit Date: 341849 Admit Time: 1318 Date: 11211016 Time: 1659 p. 2 of 4 RECORD OF PATIENT'S RESPONSE Date 003698 Time Temp BP Pulse Resp. Initials Prior to Transfusion 1530 98.6 55 20 mts 153/64 Start Time 1550 xxx xxx xxx xxx mts 15 min check 1605 97.7 52 19 mts 142/44 30 min check 1620 98.2 51 18 mts 136/59 45 min check 1635 98.0 55 19 mts 148/60 Stop Time 1755 xxx xxx xxx xxx mts 15 min Post-Transfusion Check 1810 98.0 52 19 mts 149/66 Notes: Notes: Amount Given: Partial Unit/ milliliters transfused OR 1/4 1/2 3/4 Full Unit Were ANY of these Symptoms Exhibited? NO Symptoms Noted or Reported YES - Axel all that apply ... DOCUMENTATION ON THIS FORM IS COMPLETE. (REMEMBER TO eSIGN AT THE BOTTOM OF THIS PAGE.) Fever >1 C or >2 F from Baseline Pruritus Uticaria Nausea Vomiting Elevated BP / Decreased BP Rapid Heart Rate Shortness of Breath Chest Pain or Tightness Back Pain Flank Pain Loss of Consciousness Other: Other: Other: Nurse Signature: Rossi Jackson Date: 11221016 Time: 1809 Nurse Siganture: Date: Time: [place], [place] Transfusion Reaction Investigation Main Line: [phone] Patient: DINA Christine Gender: F MR#: [id number] Service Code: L Room: [facility] Address: [address] [place] [address] Admitting Physician: FRANCISCA URIAS Secondary Physician: Family Physician: [facility]: [facility]: [place] Zip Code: [address] Date of : [id number] Age: 63 Admit Date: 11221016 Admit Time: 1317 Date: Time: p. 3 of 4 TO BE COMPLETED BY NURSING Transfusion Start Time: Transfusion Stop Time: Total Transfusion Time: hour(s) minute(s) Total Amount Infused: milliliters Donor Number Vital Sign Pre-Transfusion Post-Transfusion Temperature Pulse Blood Pressure Fluids and/or Medications given with transfusion: Recent fever not related to this transfusion? Yes No Drug Allergies? Yes No Additional Comments: Additional Comments: Nurse Signature Date Time [place], [place] Transfusion Reaction Investigation Main Line: [phone] Patient: DIAN Christine Gender: F MR#: [id number] Service Code: L Room: [facility] Address: [address] [place] [address] Admitting Physician: FRANCISCA URIAS Secondary Physician: Family Physician: [facility] State: [place] Zip Code: [address] Date of : [id number] Age: 63 Admit Date: 11221016 Admit Time: 1318 Date: Time: p. 4 of 4 Blood Bank Report - Laboratory Use Only Required Testing: Contact Cut Off Sawyer Log to report suspected transfusion reaction For Uticarial reactions WITHOUT fever, perform steps 1, 2 and 3 only. For all other reactions, perform steps 1 - 8. For temp rise >1C or >2F, perform steps 1 - 10. Unit # Unit returned to Laboratory: Date Time Volume ml 1. Check clerical work for discrepancy Checks Does not check 2. Check appearance of patient's serum PRE POST 3. Direct Antiglobulin Test PRE + - POST + - 4. Patient: Pre-Transfusion Group Rho (D) + - 5. Patient: Post-Transfusion Group Rho (D) + - 6. Donor Unit: Tail Segment Group Rho (D) + - 7. Urine color (first void after discontinuation of blood) 8. Urine Free Hemoglobin 9. Gram Stain results on donor unit + - Perform when temp is >1C or >2F above baseline 10. Culture on Donor Unit Set-up Date Results Comments: Comments: IF THERE IS EVIDENCE OF INCOMPATIBILITY, CALL PHYSICIAN AND PATHOLOGIST STAT If there is no evidence of any discrepancy, DO NOT proceed to steps 11, 12, or 13. 11. Patient: Pre-Transfusion Antibody Screen + - X-match Compatible Non- compatible 12. Patient: Post-Transfusion Antibody Screen + - X-match Compatible Non- compatible 13. Blood culture on patient Date Results Signature of Technologist Date Time Take Away Man Comments/Findings: Take Away Man Signature Date Consultation Notes [facility] 08/12/2023 14:44 [facility] Consultation 11 Aug 2023 This is a 63 yo patient seen in her room (by me) at [facility] with a history of Chronic Kidney Disease with renal sclerosis, Super Morbid Obesity, pAfib, SHELDON on chronic O2, HTN, Hypothyroidism, GERD, T2DM, chronic pain syndrome, Seizure disorder, bladder dysfx, Personality disorder, Major Depression, Bipolar disorder, Insomnia, and PTSD. She now presents for evaluation of chronic blood loss anemia and heme positive stool at the request of Dr. Cunningham. Patients primary care provider is Dr. Cunningham. Patient denies abdominal pain, N, V, heatburn, trouble swallowing, loss of appetite or weight, diarrhea, constipation, BRBPR or melena. No fever, dark urine, jaundice, icterus, hot/cold intolerance, itching, light stools, CP, SOB at rest (+ TYLER), dysuria, hematuria, new cough, visual changes, tingling of the skin, bone pain or tremor. Allergies: PCN as a child. Meds: see extensive list but includes Protonix 40 mg po BID/ac, Carafate 1 gr QID, Fe, Miralax, Lovenox. No aspirin or NSAIDs SHx: non-smoker, non-drinker. NH patient. Family history: negative for gi malignancy in first degree relative. No recent endoscopy. Physical exam: Obese female (weight about 490 lb) in bed in NAD. No lower extremity edema, jaundice, spider angioma, palmar erythema. Skull is normocephalic atraumatic. Sclera are non-icteric. Oropharynx is clear. Neck is supple without thyromegaly. Lungs are clear. Heart is rate and rhythm regular. S1 and S2 normal. Normal active bowel sounds. Non-tender, non-rigid, non-distended without hepatosplenomegaly or masses. No guarding. Rectal is deferred. Neuro is conscious and alert 3. Labs: 12/10/2022 Hgb 8, Hct 26, MCV 96 01/13/2023 Hgb 9. Hct 28, MCV 93, WBC 5, PTL 132 04/05/2023 A1C 5.5, Cr 2.4, TBili 0.2, A/P 116, AST 15, ALT 12 04/26/2023 Hgb 9, Hct 29, MCV 93 05/21/2023 PTT 26; 05/26/2023 Cr 2.0; 06/03/2023 Hct 26, MCV 93, ferr 63, Fe 41, TIBC 276, %sat 15 06/06/2023 stool heme positive x 2. 06/16/2023 Hgb 6.7, Hct 24 06/22/2023 Hct 26, MCV 96, RDW 15 07/07/2023 Hgb 8, HCT 26, MCV 93 Transfusion ? 08/05/2023 and 06/16/2023 Imaging: N/A Assessment and plan: Chronic blood loss anemia with heme positive stool and CKD on Lovenox: - Likely multifactorial with CKD and heme positive stool - Certainly concern for GI source of blood loss - Normal MCV, RDW and iron studies - No active bleed at present; has had transfusion x 2 - Follow H+H; transfuse prn - On PPI and Carafate - No aspirin, NSAIDS - Colon +/- EGD +/- Capsule - At endoscopy will check CBC, B12, folate, Epo level and retic count The procedures of colonoscopy, upper endoscopy and possible Capsule Endoscopy, their indications, alternatives of barium studies and risks including perforation, bleeding, infection, reaction to medication as well as the possible need for blood or surgery were discussed with the patient. Increased risk for complication, morbidity and mortality due to weight and co-morbidities also reviewed with the patient. She voices understanding, agrees to proceed and provides informed consent. Case discussed with SARAH Girard. Barber Toledo MD [phone]
--- OUTSIDE RECORDS SUMMARY | 2025-09-02 10:27 | XMS_ITS | Clinical Summary ---
Author Organization [facility] Address [address] [place] [address] Care Team Providers Care Handle Finisher Name Role Phone Unavailable Primary Care Provider Unavailabl e Source Comments [facility],non-owned Affiliates and Associated Physician Practices is amultiple site organization consisting of ambulatory clinics and hospital sitesin [place], [place], [place] and [place]. This disclosure is being madepursuant to the Care Everywhere program and may not contain all information available regarding this patient. Last updated 18.[facility] Encounters Date Type Department Care Team Description 08/14/2025 Lab Requisition [facility] [address] [place] [address] Esvin Hope Encounter for screening for diseases of the blood and blood-forming organs and certain disorders involving the immune mechanism; Encounter for screening for lipoid disorders from Last 3 Months Social History Tobacco Use Types Packs/Day Years Used Date Smoking Tobacco: Never Assessed Comments Unknown Sex and Gender Information Value Date Recorded Sex Assigned at Not on file Legal Sex Female 11:45 AM CDT Gender Identity Not on file Sexual Orientation Not on file Plan of Treatment Health Maintenance Due Date Last Done Comments BONE DENSITY TESTING 1960 COLOGUARD (AGES 45-75) - COL ON CA SCREENING 1958 COLON MONITORING 1958 COLONOSCOPY - COLON CA SCREENING 1958 CT COLONOGRAPHY - COLON CA SCREENING 1960 Colorectal Cancer Screening 1958 FIT - COLON CA SCREENING 1958 FLEX SIG - COLON CA SCREENING 1958 LIPID TESTING 1958 MAMMOGRAM 1958 HEPATITIS C SCREENING 03/20/1976 DTAP/TDAP/TD VACCINES (1 - Tdap) 1977 PNEUMOCOCCAL VACCINE 50+ (1 of 1 - PCV) 2008 ZOSTER VACCINE (1 of 2) 2008 DEPRESSION SCREENING 09/13/2024 COVID-19 VACCINE (1 - 2024-2 6 season) 2025 INFLUENZA VACCINE (#1) 2025 Respiratory Syncytial Virus (RSV) Vaccine Pt: or over 60 yrs (1 - 1-dose 75+ series) 2033 HEPATITIS B VACCINE Aged Out No longe r eligible based on patient's age to complete this topic HIB VACCINE Aged Out No longer eligi ble based on patient's age to complete this topic HPV VACCINE Aged Out No longer eligi ble based on patient's age to complete this topic MENINGOCOCCAL (Group B) VACC INE SHARED DECISION-MAKING Aged Out No longer eligibl e based on patient's age to complete this topic MENINGOCOCCAL GROUPS A/C/Y/W VACCINE Aged Out No longer eligible b ased on patient's age to complete this topic Procedures Procedure Name Priority Date/Time Associated Diagnosis Comments COMPREHENSIVE METABOLIC PANEL STAT 08/14/2025 9:00 AM INTERVENTION MANAGER Encounter for screening for diseases of the blood and blood-forming organs and certain disorders involving the immune mechanism Encounter for screening for lipoid disorders CBC W AUTO DIFFERENTIAL STAT 08/14/2025 9:00 AM INTERVENTION MANAGER Encounter for screening for diseases of the blood and blood-forming organs and certain disorders involving the immune mechanism Encounter for screening for lipoid disorders from Last 3 Months Results * (ABNORMAL) CBC WITH DIFFERENTIAL (08/14/2025 9:00 AM INTERVENTION MANAGER) WBC 7.5 4.0 - 10.7 x10E9/L 08/14/2025 10:33 AM INTERVENTION MANAGER [facility] RBC Count 3.32(L) 3.90 - 5.20 x10E12/L 08/14/2025 10:33 AM INTERVENTION MANAGER [facility] Hemoglobin 10.2(L) 11.9 - 15.8 g/dL 08/14/2025 10:33 AM INTERVENTION MANAGER [facility] Hematocrit 32.9(L) 34.8 - 46.1 % 08/14/2025 10:33 AM INTERVENTION MANAGER [facility] MCV 99.1(H) 80.0 - 98.0 fL 08/14/2025 10:33 AM [facility] MCH 30.7 26.7 - 33.6 pg 08/14/2025 10:33 AM [facility] MCHC 31.0(L) 31.7 - 36.3 g/dL 08/14/2025 10:33 AM [facility] RDW-CV 15.5(H) 11.3 - 14.8 % 08/14/2025 10:33 AM [facility] Platelet Count 139(L) 150 - 420 x10E9/L 08/14/2025 10:33 AM [facility] MPV 9.5 7.8 - 11.4 fL 08/14/2025 10:33 AM [facility] Neutrophil % 78.1(H) 41.0 - 74.0 % 08/14/2025 10:33 AM [facility] Lymphocyte % 14.0(L) 17.0 - 47.0 % 08/14/2025 10:33 AM [facility] Monocyte % 6.5 3.0 - 11.0 % 08/14/2025 10:33 AM [facility] Eosinophil % 0.0 0.0 - 7.0 % 08/14/2025 10:33 AM [facility] Basophil % 0.1 0.0 - 1.6 % 08/14/2025 10:33 AM [facility] Immature Granulocytes % 1.3(H) 0.0 - 1.0 % 08/14/2025 10:33 AM [facility] Neutrophil Absolute 5.87 1.60 - 7.50 x10E9/L 08/14/2025 10:33 AM [facility] Lymphocyte Absolute 1.05 1.00 - 4.40 x10E9/L 08/14/2025 10:33 AM [facility] Monocyte Absolute 0.49 0.15 - 1.00 x10E9/L 08/14/2025 10:33 AM [facility] Eosinophil Absolute 0.00 0.00 - 0.60 x10E9/L 08/14/2025 10:33 AM [facility] Basophil Absolute 0.01 0.00 - 0.13 x10E9/L 08/14/2025 10:33 AM [facility] Blood BLOOD SPECIMEN / Unknown 08/14/2025 9:00 AM [facility] 08/14/2025 10:21 AM [facility] us Esvin Hope LAB - HEMATOLOGY ORDERABLES Adrianna l Result [facility] [address] [place] [address] * (ABNORMAL) COMPREHENSIVE METABOLIC PANEL (08/14/2025 9:00 AM [facility]) Glucose 186(H) 70 - 99 mg/dL 08/14/2025 10:48 AM [facility] Sodium 141 136 - 145 mmol/L 08/14/2025 10:48 AM [facility] Potassium 3.6 3.5 - 5.1 mmol/L 08/14/2025 10:48 AM [facility] Chloride 91(L) 98 - 107 mmol/L 08/14/2025 10:48 AM [facility] CO2 34(H) 22 - 29 mmol/L 08/14/2025 10:48 AM [facility] Calcium 8.4 8.4 - 10.4 mg/dL 08/14/2025 10:48 AM [facility] Anion Gap 16 6 - 16 mmol/L 08/14/2025 10:48 AM [facility] BUN 51(H) 7 - 26 mg/dL 08/14/2025 10:48 AM [facility] Creatinine 5.05(H) 0.50 - 1.20 mg/dL 08/14/2025 10:48 AM [facility] Alkaline Phosphatase 109 40 - 150 U/L 08/14/2025 10:48 AM [facility] ALT 10 6 - 57 U/L 08/14/2025 10:48 AM [facility] AST 14 10 - 48 U/L 08/14/2025 10:48 AM [facility] Protein Total 6.4 6.4 - 8.3 gm/dL 08/14/2025 10:48 AM [facility] Albumin 3.5 3.1 - 4.5 gm/dL 08/14/2025 10:48 AM [facility] Bilirubin Total 0.4 0.2 - 1.2 mg/dL 08/14/2025 10:48 AM [facility] eGFR by CKD-EPI 9(L) >=90 mL/min/1.7 3 m2 08/14/2025 10:48 AM INTERVENTION MANAGER [facility] Comment:Estimated Glomerular Filtration Rate (eGFR) calculated using the CKD-EPI Creatinine Equation (2020), per the National Kidney Foundation and [place] [employer]ph[employer] recommendations. Blood BLOOD SPECIMEN / Unknown Venipuncture / Unknown 08/14/2025 9:00 AM INTERVENTION MANAGER 08/14/2025 10:21 AM INTERVENTION MANAGER Esvin Hope LAB - CHEMISTRY ORDERABLES Final Result [facility] [address] [place] [address] from Last 3 Months
--- OUTSIDE RECORDS SUMMARY | 2025-09-02 10:27 | XMS_ITS ---
Author Organization Unknown Address [address] [place] [phone] Phone Care Team Providers Care Media Relations Associate Name Role Phone JODY GONSALEZ Attending Unavailable [...] URINALYSIS w/Microscopy/C&S if indicated - Collect Date/Time: 09/02/2023 11:16 [facility] ID: [id number] [address] [place] [address], [phone] LOINC: 62357-8 Test Value Unit Reference Range Code Code System Flag UR SOURCE VOIDED 17855-8 LOINC COLOR YELLOW YELLOW 5778-6 LOINC CLARITY CLOUDY CLEAR 18221-4 LOINC SPEC GRAVITY 1.020 1.000-1.030 5811-5 LOINC PH 8.5 5.0 - 6.5 5803-2 LOINC LEUK EST 3+ NEGATIVE 5799-2 LOINC A NITRATE NEGATIVE NEGATIVE PROTEIN 2+ NEGATIVE 5804-0 LOINC A GLUCOSE NEGATIVE NEGATIVE 71443-4 LOINC KETONES NEGATIVE NEGATIVE 57225-2 LOINC UROBILINOGEN 0.2 NEGATIVE 5818-0 LOINC BILIRUBIN NEGATIVE NEGATIVE 22650-1 LOINC BLOOD 2+ NEGATIVE 12121-2 LOINC WBC TNTC 0 - 2 68874-8 LOINC A RBC 10-20 0 - 2 43330-8 LOINC A EPITHELIAL RARE RARE-FEW 92867-9 LOINC BACTERIA 4+ NONE SEEN 92468-9 LOINC A MUCUS NONE SEEN NONE SEEN 8247-9 LOINC YEAST NOT PRESENT NOT PRESENT 43417-7 LOINC CASTS NONE SEEN 28894-5 LOINC CRYSTALS NONE SEEN 13583-2 LOINC CULTURE? YES 8251-1 LOINC DIAGNOSIS ABN LAB RESU OD [id number] YLATE-ETOH - Collect Date/Time: 09/02/2023 10:25 [facility] ID: [id number] [place], [place], [phone] LOINC: Test Value Unit Reference Range Code Code System Flag ACETAMINOPHEN < 10 ug/dL L=0 H=10 3298-7 LOINC SALICYLATE < 1 mg/dL L=0 H=5 4024-6 LOINC ALCOHOL < 10.00 mg/dL L=0.00 H=50.00 5643-2 LOINC CBC W/ DIFF - Collect Date/T pili: 09/02/2023 10:25 [facility] ID: [id number] [place], [place], [phone] LOINC: 22717-1 Test Value Unit Reference Range Code Code System Flag WBC 8.1 10^3uL L=4.8 H=10.8 RBC 3.46 10^6uL L=4.20 H=5.40 L HEMOGLOBIN 9.5 g/dL L=12.0 H=16.0 718-7 LOINC L HEMATOCRIT 32.2 VOL% L=37.0 H=47.0 4544-3 LOINC L MCV 93.1 fL L=81.0 H=99.0 MCH 27.5 pg L=27.0 H=32.0 MCHC 29.5 g/dL L=32.0 H=36.0 L PLATELETS 174 10^3uL L=100 H=400 98407-6 LOINC RDW 14.5 % L=11.7 H=15.5 %GRAN 88.6 % L=40.0 H=70.0 15750-8 LOINC H %LYMPH 5.1 % L=20.0 H=45.0 736-9 LOINC L %MONO 4.8 % L=2.0 H=10.0 02117-4 LOINC %EOS 0.0 % L=0.0 H=6.0 713-8 LOINC %BASO 0.1 % L=0.0 H=3.0 706-2 LOINC #NEUT 7.2 10^3uL L=1.9 H=7.6 02674-7 LOINC #LYMPH 0.4 10^3uL L=0.9 H=4.9 58222-6 LOINC L #MONO 0.4 10^3uL L=0.1 H=0.9 62823-7 LOINC #EOS 0.0 10^3uL L=0.0 H=0.6 712-0 LOINC #BASO 0.01 10^3uL L=0.00 H=0.10 81385-2 LOINC #IM GRANS 0.1 10^3uL L=0.0 H=7.0 47112-4 LOINC %IM GRANS 1.4 % L=0.0 H=5.0 38985-4 LOINC %NRB 0.0 L=0.0 H=0.2 99494-8 LOINC #NRB 0.000 L=0.000 H=0.012 33233-8 LOINC MANUAL DIFF NOT INDICATED RBC MORPH NOT INDICATED PTT - Collect Date/Time: 10:25 [facility] ID: [id number] [address] [place], [place], [phone] LOINC: 54139-8 Test Value Unit Reference Range Code Code System Flag PTT 27.0 Sec L=23.0 H=31.2 PROTIME - Collect Date/Time: 09/02/2023 10:25 [facility] ID: [id number] [place], [phone] LOINC: 27455-2 Test Value Unit Reference Range Code Code System Flag PT 10.8 Sec L=9.7 H=11.7 36770-5 LOINC INR 1.0 Sec L=0.9 H=1.1 24889-2 LOINC COMPREHENSIVE METABOLIC PANE L - Collect Date/Time: 09/02/2023 10:25 [facility] ID: [id number] [place], [place], [phone] LOINC: 38031-6 Test Value Unit Reference Range Code Code System Flag FASTING UNKNOWN BUN 50 mg/dL L=7 H=20 3094-0 LOINC H CREATININE 3.00 mg/dL L=0.52 H=1.04 2160-0 LOINC H GLUCOSE 160 mg/dL L=74 H=106 2345-7 LOINC H SODIUM 143 mmol/L L=132 H=144 2951-2 LOINC POTASSIUM 4.1 mmol/L L=3.5 H=5.1 2823-3 LOINC CHLORIDE 95 mmol/L L=98 H=107 2075-0 LOINC L CO2 36.0 mmol/L L=22.0 H=30.0 8-9 LOINC H ANION GAP 16 L=10 H=20 28345-2 LOINC OSMOLALITY 313 mOs/kG L=280 H=296 48891-3 LOINC H BUN/CREAT 16.7 3097-3 LOINC CALCIUM 8.7 mg/dL L=8.3 H=10.5 56661-8 LOINC AST 15 U/L L=15 H=46 1920-8 LOINC ALT 13 U/L L=9 H=72 1742-6 LOINC ALKALINE PHOS 124 U/L L=38 H=126 6768-6 LOINC TOTAL BILI 0.5 mg/dL L=0.2 H=1.3 1975-2 LOINC ALBUMIN 4.2 G/dL L=3.5 H=5.0 1751-7 LOINC TOTAL PROTEIN 8.2 g/L L=6.3 H=8.2 2885-2 LOINC A/G RATIO 1.1 07937-7 LOINC AGE 63 33216-6 LOINC eGFR NON-AFR 17 ml/min eGFR AFR AMER 21 ml/min CHEST 1V - Completed: 2022 11:16 LOINC: EXAM DESCRIPTION: CHEST 1V REASON FOR STUDY: Seizure TECHNIQUE: 1 radiographic view(s) of the chest. COMPARISON: 08/21/2023 07/14/2023, 12/03/2022 and 11/18/2022 FINDINGS: The examination is limited due to patient positioning, rotation and soft tissue overlapping the lungs. Within this limitation: LUNGS: No pneumothorax is identified. There are bilateral prominent interstitial opacities may represent mild pulmonary vascular congestion. Redemonstrated opacification of the left lower lobe which likely represents a moderate pleural effusion. There is no significant right pleural effusion. There are central airspace opacities in the left lung. HEART/MEDIASTINUM: Cardiomegaly. Prominence of the central vasculature. LINES/TUBES: None. BONES: No acute osseous abnormality. IMPRESSION: 1. Significantly limited exam. 2. Suspected moderate left pleural effusion, decreased relative to the 07/14/2023. 3. Suspected central left airspace opacities which may represent asymmetric pulmonary edema or pneumonia. THIS IS AN ELECTRONICALLY VERIFIED FINAL REPORT 09/02/2023 11:29 AM - Electronically signed by Chris Kearney M.D. MM: MM Report ID: [id number] Reading Location: [id number] CT BRAIN WO CONTRAST - Compl eted: 09/02/2023 11:16 LOINC: EXAM DESCRIPTION: CT BRAIN WO CONTRAST REASON FOR STUDY: Seizure TECHNIQUE: Axial images acquired through the brain without intravenous contrast. Images stored on PACS. Automated exposure control was used as a dose optimization technique for this examination. COMPARISON: 07/14/2023 FINDINGS: The exam is limited due to motion artifact and photon starvation artifact, particularly in the posterior fossa, due to overlapping soft tissues. Within this limitation: BRAIN: No hemorrhage, edema or mass effect. No large vascular territory infarction. There is periventricular and scattered hypodensity within the supratentorial white matter. This finding is nonspecific but likely on the basis of chronic small vessel ischemic disease. EXTRA-AXIAL SPACES: No fluid collections. No masses. CALVARIUM: No fracture. SINUSES/MASTOIDS: Small mucous retention cysts in the left maxillary sinus and left sphenoid. No significant mastoid effusion identified. ORBITS: No significant abnormality. OTHER: No other significant abnormality. IMPRESSION: Significantly limited exam due to artifact. Within this limitation no large intracranial hemorrhage, mass effect or midline shift identified. THIS IS AN ELECTRONICALLY VERIFIED FINAL REPORT 09/02/2023 11:34 AM - Electronically signed by Chris Kearney M.D. MM: MM Report ID: [id number] Reading Location: [id number] Social History Type Status Start Date End Date Code Code Syst em Smoking History Unknown if ever smoked [address] Sex Female Medications Medication Start Date End Date Route Frequency Dose Code Code System Medication Instructions Home Meds OXcarbazepine 150MG Oral Tablet 10/28/2022 Unknown ORAL TWICE A DAY 150 MILLIGRAMS 203415 RxNorm TAKE 150 MILLIGRAMS ORAL TWICE A DAY oxyCODONE HCl 5MG Oral Tablet 10/28/2022 Unknown ORAL NEEDED EVERY 6 HOURS 5 MILLIGRAMS 8008000 RxNorm TAKE 5 MILLIGRAMS ORAL NEEDED EVERY 6 HOURS Acetaminophen 325MG Oral Tablet 12/04/2022 Unknown ORAL NEEDED EVERY 4 HOURS 650 MILLIGRAMS 145355 RxNorm TAKE 650 MILLIGRAMS ORAL NEEDED EVERY 4 HOURS Atorvastatin Calcium 40MG Oral Tablet 12/04/2022 Unknown ORAL AT BEDTIME 40 MILLIGRAMS 407249 RxNorm TAKE 40 MILLIGRAMS ORAL AT BEDTIME Bisacodyl 10MG Rectal Suppository 12/04/2022 Unknown RECTAL NEEDED DAILY 10 MILLIGRAMS 648463 RxNorm INSERT 10 MILLIGRAMS RECTAL NEEDED DAILY Budesonide 0.5MG/2ML Inhalation Suspension 12/04/2022 Unknown NEBULIZ ER RESP DAILY 0.5 MILLIGRAMS 544274 RxNorm 0.5 MILLIGRAMS NEBULIZER RESP DAILY Cetirizine HCl 10MG Oral Tablet 12/04/2022 Unknown ORAL ONCE A DAY 10 MILLIGRAMS 7213833 RxNorm TAKE 10 MILLIGRAMS ORAL ONCE A DAY Ferrous Sulfate 325MG Oral Tablet 12/04/2022 Unknown ORAL EVERY OTHER DAY 325 MILLIGRAMS 749098 RxNorm TAKE 325 MILLIGRAMS ORAL EVERY OTHER DAY Furosemide 40MG Oral Tablet 12/04/2022 Unknown ORAL ONCE A DAY 40 MILLIGRAMS 961829 RxNorm TAKE 40 MILLIGRAMS ORAL ONCE A DAY Gabapentin 300MG Oral Capsule 12/04/2022 Unknown ORAL THREE TIMES A DAY 300 MILLIGRAMS 409088 RxNorm TAKE 300 MILLIGRAMS ORAL THREE TIMES A DAY Ipratropium [place] rol Sulfate 0.5MG/3ML-3MG/ 3ML Inhalation Solution 12/04/2022 Unknown NEBULIZ ER NEEDED EVERY 2 HOURS 1 unit(s) 4083081 RxNorm 1 EACH NEBULIZER NEEDED EVERY 2 HOURS Melatonin 5 MG Oral Tablet 12/04/2022 Unknown ORAL AT BEDTIME 5 MG RxNorm TAKE 5 MG ORAL AT BEDTIME Milk Of Magnesia 2400MG/30ML Oral Suspension 12/04/2022 Unknown ORAL PRN Q72H 30 mL 657091 RxNorm TAKE 30 m L ORAL PRN Q72H Oxymetazoline HCl 0.05% Nasal [place] 12/04/2022 Unknown NOSTRIL BOTH NEEDED EVERY 12 HOURS 2 unit(s) 4629486 RxNorm SPRAY IN 2 EACH NOSTRIL BOTH NEEDED EVERY 12 HOURS Polyethylene Glycol 3350 17 GM/1 Packet Oral Packet 12/04/2022 Unknown ORAL ONCE A DAY 17 GRAM 238483 RxNorm TAKE 17 GRAM ORAL ONCE A DAY Sennosides 8.6MG Oral Tablet 12/04/2022 Unknown ORAL TWICE A DAY 17.2 MILLIGRAMS 013742 RxNorm TAKE 17.2 MILLIGRAMS ORAL TWICE A DAY Sertraline HCl 100MG Oral Tablet 12/04/2022 Unknown ORAL ONCE A DAY 200 MILLIGRAMS 338718 RxNorm TAKE 200 MILLIGRAMS ORAL ONCE A DAY Sodium Chloride Nasal Mist 0.65% Nasal [place] 12/04/2022 Unknown NOSTRIL BOTH TWICE A DAY 1 unit(s) RxNorm SPRAY IN 1 EACH NOSTRIL BOTH TWICE A DAY Xarelto 20MG Oral Tablet 12/04/2022 Unknown ORAL ONCE A DAY 20 MILLIGRAMS 5269425 RxNorm TAKE 20 MILLIGRAMS ORAL ONCE A DAY budesonide-for moterol fumarate 80MCG-4.5MCG/1 Actuat Inhalation Aerosol Liquid 12/04/2022 Unknown INHALAT ION TWICE A DAY 2 unit(s) 9491626 RxNorm 2 EACH INHALATION TWICE A DAY levETIRAcetam 500MG Oral Tablet 12/04/2022 Unknown ORAL TWICE A DAY 500 MILLIGRAMS 586427 RxNorm TAKE 500 MILLIGRAMS ORAL TWICE A DAY Protonix 40 MG Oral Tablet, Delayed Release 12/04/2022 Unknown BY MOUTH 1 TABLET 006127 RxNorm TAKE 1 TABLET BY MOUTH Assessment [...] Status Code Code System METABOLIC ENCEPHALOPATHY active 40082 000 SNOMED-CT METABOLIC ALKALOSIS active 0279536 SNOMED-CT COPD WITH EXACERBATION active 6965103 07 SNOMED-CT BACTEREMIA CAUSED BY GRAM-POSITIVE BACTERIA active 865254107578 SNOME D-CT UTI active 40859005 SNOMED-CT DEHYDRATION active 19465300 SNOMED-C T HYPOMAGNESEMIA active 068067503 SNOME D-CT EPILEPSY active 53240505 SNOMED-CT Allergies and Adverse Reactions Allergy Substance Reaction Severity Start Date Concern Status Co de Code System PENICILLIN Active Plan of Treatment Song Follow Up Visit 09/22/2023 Encounters Encounter Diagnosis Start Date Code Code Sys tem Epilepsy, unspecified, not i ntractable, without status epilepticus 09/02/2023 SNOMED-CT Personal Care Team Section Performer Name Performer Role Active Date Inactive MICHEAL Krishnamurthy PCP - Primary care physician 2022-09-24 2023-06-03 JACINTA CUNNINGHAM PCP - Primary care physician 2023-07-14 Imaging Narrative Notes
--- OUTSIDE RECORDS SUMMARY | 2025-09-02 10:27 | XMS_ITS | Encounter Summary ---
Author Organization [facility] Address [address] [place] [address] Care Team Providers Care Foreign Diplomat Name Role Phone Unavailable Primary Care Provider Unavailabl e Encounter Details Date Type Department Care Team (Late st Contact Info) Description 08/14/2025 Lab Requisition [facility] [address] [place] [address] Esvin Hope [id number] [address] [facility]. [address] [place] [address] Encounter for screening for diseases of the blood and blood-forming organs and certain disorders involving the immune mechanism; Encounter for screening for lipoid disorders Social History Tobacco Use Types Packs/Day Years [...] Procedure Name Priority Date/Time Associated Diagnosis Comments CBC W AUTO DIFFERENTIAL STAT 08/14/2025 9:00 AM RING ROLLING MACHINE OPERATOR Encounter for screening for diseases of the blood and blood-forming organs and certain disorders involving the immune mechanism Encounter for screening for lipoid disorders COMPREHENSIVE METABOLIC PANEL STAT 08/14/2025 9:00 AM RING ROLLING MACHINE OPERATOR Encounter for screening for diseases of the blood and blood-forming organs and certain disorders involving the immune mechanism Encounter for screening for lipoid disorders documented in this encounter Results * (ABNORMAL) COMPREHENSIVE METABOLIC PANEL (08/14/2025 9:00 AM RING ROLLING MACHINE OPERATOR) Glucose 186(H) 70 - 99 mg/dL 08/14/2025 10:48 AM RING ROLLING MACHINE OPERATOR [facility] Sodium 141 136 - 145 mmol/L 08/14/2025 10:48 AM RING ROLLING MACHINE OPERATOR [facility] Potassium 3.6 3.5 - 5.1 mmol/L 08/14/2025 10:[address] [facility] Chloride 91(L) 98 - 107 mmol/L 08/14/2025 10:[address] [facility] CO2 34(H) 22 - 29 mmol/L 08/14/2025 10:[address] [facility] Calcium 8.4 8.4 - 10.4 mg/dL 08/14/2025 10:[address] [facility] Anion Gap 16 6 - 16 mmol/L 08/14/2025 10:[address] [facility] BUN 51(H) 7 - 26 mg/dL 08/14/2025 10:[address] [facility] Creatinine 5.05(H) 0.50 - 1.20 mg/dL 08/14/2025 10:[address] [facility] Alkaline Phosphatase 109 40 - 150 U/L 08/14/2025 10:[address] [facility] ALT 10 6 - 57 U/L 08/14/2025 10:[address] [facility] AST 14 10 - 48 U/L 08/14/2025 10:[address] [facility] Protein Total 6.4 6.4 - 8.3 gm/dL 08/14/2025 10:[address] [facility] Albumin 3.5 3.1 - 4.5 gm/dL 08/14/2025 10:[address] [facility] Bilirubin Total 0.4 0.2 - 1.2 mg/dL 08/14/2025 10:[address] [facility] eGFR by CKD-EPI 9(L) >=90 mL/min/1.7 3 m2 08/14/2025 10:[address] [facility] Comment:Estimated Glomerular Filtration Rate (eGFR) calculated using the CKD-EPI Creatinine Equation (2020), per the National Kidney Foundation and [place] [employer] of Nephrology recommendations. Blood BLOOD SPECIMEN / Unknown Venipuncture / Unknown 08/14/2025 9:00 AM RING ROLLING MACHINE OPERATOR 08/14/2025 10:21 AM [facility] Es[facility] Hope LAB - CHEMISTRY ORDERABLES Final Result [facility] [address] [place] [address] * (ABNORMAL) CBC WITH DIFFERENTIAL (08/14/2025 9:00 AM [facility]) [facility] WBC 7.5 4.0 - 10.7 x10E9/L 08/14/2025 10:[address] [facility] RBC Count 3.32(L) 3.90 - 5.20 x10E12/L 08/14/2025 10:[address] [facility] Hemoglobin 10.2(L) 11.9 - 15.8 g/dL 08/14/2025 10:[address] [facility] Hematocrit 32.9(L) 34.8 - 46.1 % 08/14/2025 10:[address] [facility] MCV 99.1(H) 80.0 - 98.0 fL 08/14/2025 10:[address] [facility] MCH 30.7 26.7 - 33.6 pg 08/14/2025 10:[address] [facility] MCHC 31.0(L) 31.7 - 36.3 g/dL 08/14/2025 10:[address] [facility] RDW-CV 15.5(H) 11.3 - 14.8 % 08/14/2025 10:[address] [facility] Platelet Count 139(L) 150 - 420 x10E9/L 08/14/2025 10:[address] [facility] MPV 9.5 7.8 - 11.4 fL 08/14/2025 10:[address] [facility] Neutrophil % 78.1(H) 41.0 - 74.0 % 08/14/2025 10:[address] [facility] Lymphocyte % 14.0(L) 17.0 - 47.0 % 08/14/2025 10:[address] [facility] Monocyte % 6.5 3.0 - 11.0 % 08/14/2025 10:[address] [facility] Eosinophil % 0.0 0.0 - 7.0 % 08/14/2025 10:[address] [facility] Basophil % 0.1 0.0 - 1.6 % 08/14/2025 10:[address] [facility] Immature Granulocytes % 1.3(H) 0.0 - 1.0 % 08/14/2025 10:[address] [facility] Neutrophil Absolute 5.87 1.60 - 7.50 x10E9/L 08/14/2025 10:33 AM RING ROLLING MACHINE OPERATOR [facility] Lymphocyte Absolute 1.05 1.00 - 4.40 x10E9/L 08/14/2025 10:33 AM RING ROLLING MACHINE OPERATOR [facility] Monocyte Absolute 0.49 0.15 - 1.00 x10E9/L 08/14/2025 10:33 AM RING ROLLING MACHINE OPERATOR [facility] Eosinophil Absolute 0.00 0.00 - 0.60 x10E9/L 08/14/2025 10:33 AM RING ROLLING MACHINE OPERATOR [facility] Basophil Absolute 0.01 0.00 - 0.13 x10E9/L 08/14/2025 10:33 AM RING ROLLING MACHINE OPERATOR [facility] Blood BLOOD SPECIMEN / Unknown 08/14/2025 9:00 AM RING ROLLING MACHINE OPERATOR 08/14/2025 10:21 AM RING ROLLING MACHINE OPERATOR Es[facility] Hope LAB - HEMATOLOGY ORDERABLES Adrianna mckeon Result Performing Organization Address City/State/[facility] Co de Phone Number [facility] [address] [place] [address] documented in this encounter Visit Diagnoses Diagnosis Encounter for screening for diseases of the blood and blood-forming organs and certain disorders involving the immune mechanism Encounter for screening for lipoid disorders Screening for lipoid disorders documented in this encounter
--- OUTSIDE RECORDS SUMMARY | 2025-09-02 10:27 | XMS_ITS ---
Author Organization Unknown Address [address] [place] [address] [phone] Phone Care Team Providers Care Health Educator Name Role Phone JODY GONSALEZ Attending Unavailable [...] 0 mcg/0.5 mL 08/27/2023 Completed 312 CVX Social History Type Status Start Date End Date Code Code Syst em Smoking History Unknown if ever smoked [id number] Sex Female Medications Medication Start Date End Date Route Frequency Dose Code Code System Medication Instructions Home Meds Acetaminophen 325MG Oral Tablet 10/28/2022 12/03/2022 ORAL NEEDED EVERY 6 HOURS 650 MILLIGRAMS 333832 RxNorm TAKE 650 MILLIGRAMS ORAL NEEDED EVERY 6 HOURS Cefepime 2GM Injection Powder for Solution 10/28/2022 12/02/2022 IVPB EVERY 24 HOURS 7539638 RxNorm PACKET IVPB EVERY 24 HOURS DAPTOmycin 500MG Intravenous Powder for Solution 10/28/2022 12/02/2022 IVPB EVERY 48 HOURS 945085 RxNorm PACKET IVPB EVERY 48 HOURS Gabapentin 100MG Oral Capsule 10/28/2022 12/02/2022 ORAL EVERY 8 HOURS 100 MILLIGRAMS 873065 RxNorm TAKE 100 MILLIGRAMS ORAL EVERY 8 HOURS NovoLOG FlexPen 100U/1ML Subcutaneous Solution 10/28/2022 12/02/2022 SUBCU TANE US As Needed 2738666 RxNorm INJECT INTO Per Protocol Unit(s) SUBCUTANEOU S As Needed Ipratropium [place] Sulfate 0.5MG/3ML-3MG/3 ML Inhalation Solution 10/28/2022 12/02/2022 NEBUL IZER RESP QID 3 MILLILITER 7037359 RxNorm 3 MILLILITER NEBULIZER RESP QID Levalbuterol 1.25MG/3ML Inhalation Solution 10/28/2022 12/02/2022 NEBUL IZER NEEDED EVERY 4 HOURS 1.25 MILLIGRAMS 928194 RxNorm 1.25 MILLIGRAMS NEBULIZER NEEDED EVERY 4 HOURS Lidocaine Novaplus 5% Topical application Patch, Extended Release 10/28/2022 12/02/2022 TRANS DERMA L EVERY EVENING 1 PATCH [id number] RxNorm APPLY TO 1 PATCH TRANSDERMAL EVERY EVENING Metoprolol Tartrate 1MG/1ML Intravenous Solution 10/28/2022 12/02/2022 IVPUS H NEEDED EVERY 6 HOURS 5 MILLIGRAMS 756660 RxNorm 5 MILLIGRAMS IVPUSH NEEDED EVERY 6 HOURS OXcarbazepine 150MG Oral Tablet 10/28/2022 Unknown ORAL TWICE A DAY 150 MILLIGRAMS 234608 RxNorm TAKE 150 MILLIGRAMS ORAL TWICE A DAY Pramipexole Dihydrochloride 0.25MG Oral Tablet 10/28/2022 12/02/2022 ORAL AT BEDTIME 0.25 MILLIGRAMS 918355 RxNorm TAKE 0.25 MILLIGRAMS ORAL AT BEDTIME QUEtiapine Fumarate AvPak 25MG Oral Tablet 10/28/2022 12/02/2022 ORAL AT BEDTIME 50 MILLIGRAMS 500686 RxNorm TAKE 50 MILLIGRAMS ORAL AT BEDTIME Sertraline HCl 100MG Oral Tablet 10/28/2022 12/02/2022 ORAL ONCE A DAY 100 MILLIGRAMS 417385 RxNorm TAKE 100 MILLIGRAMS ORAL ONCE A DAY Levothyroxine Sodium 25MCG Oral Tablet 10/28/2022 12/02/2022 ORAL DAILY BEFORE MEAL 25 MCG 537445 RxNorm TAKE 25 MCG ORAL DAILY BEFORE MEAL Mucus Relief ER 600MG Oral Tablet, Extended Release 10/28/2022 12/02/2022 ORAL NEEDED EVERY 12 HOURS 600 MILLIGRAMS 231464 RxNorm TAKE 600 MILLIGRAMS ORAL NEEDED EVERY 12 HOURS oxyCODONE HCl 5MG Oral Tablet 10/28/2022 Unknown ORAL NEEDED EVERY 6 HOURS 5 MILLIGRAMS 6576764 RxNorm TAKE 5 MILLIGRAMS ORAL NEEDED EVERY 6 HOURS Doxycycline AvPak 100MG Oral Capsule 12/04/2022 12/10/2022 ORAL TWICE A DAY WITH MEALS 100 MILLIGRAMS 8840132 RxNorm TAKE 100 MILLIGRAMS ORAL TWICE A DAY WITH MEALS Acetaminophen 325MG Oral Tablet 12/04/2022 Unknown ORAL NEEDED EVERY 4 HOURS 650 MILLIGRAMS 258092 RxNorm TAKE 650 MILLIGRAMS ORAL NEEDED EVERY 4 HOURS Atorvastatin Calcium 40MG Oral Tablet 12/04/2022 Unknown ORAL AT BEDTIME 40 MILLIGRAMS 522123 RxNorm TAKE 40 MILLIGRAMS ORAL AT BEDTIME Bisacodyl 10MG Rectal Suppository 12/04/2022 Unknown RECTA L NEEDED DAILY 10 MILLIGRAMS 315741 RxNorm INSERT 10 MILLIGRAMS RECTAL NEEDED DAILY Budesonide 0.5MG/2ML Inhalation Suspension 12/04/2022 Unknown NEBUL IZER RESP DAILY 0.5 MILLIGRAMS 546237 RxNorm 0.5 MILLIGRAMS NEBULIZER RESP DAILY Cetirizine HCl 10MG Oral Tablet 12/04/2022 Unknown ORAL ONCE A DAY 10 MILLIGRAMS 2560083 RxNorm TAKE 10 MILLIGRAMS ORAL ONCE A DAY Ferrous Sulfate 325MG Oral Tablet 12/04/2022 Unknown ORAL EVERY OTHER DAY 325 MILLIGRAMS 180257 RxNorm TAKE 325 MILLIGRAMS ORAL EVERY OTHER DAY Furosemide 40MG Oral Tablet 12/04/2022 Unknown ORAL ONCE A DAY 40 MILLIGRAMS 275002 RxNorm TAKE 40 MILLIGRAMS ORAL ONCE A DAY Gabapentin 300MG Oral Capsule 12/04/2022 Unknown ORAL THREE TIMES A DAY 300 MILLIGRAMS 557100 RxNorm TAKE 300 MILLIGRAMS ORAL THREE TIMES A DAY Ipratropium [place] Sulfate 0.5MG/3ML-3MG/3 ML Inhalation Solution 12/04/2022 Unknown NEBUL IZER NEEDED EVERY 2 HOURS 1 unit(s) 1568470 RxNorm 1 EACH NEBULIZER NEEDED EVERY 2 HOURS Melatonin 5 MG Oral Tablet 12/04/2022 Unknown ORAL AT BEDTIME 5 MG RxNorm TAKE 5 MG ORAL AT BEDTIME Milk Of Magnesia 2400MG/30ML Oral Suspension 12/04/2022 Unknown ORAL PRN Q72H 30 mL 112051 RxNorm TAKE 30 mL ORAL PRN Q72H Oxymetazoline HCl 0.05% Nasal [place] 12/04/2022 Unknown NOSTR IL BOTH NEEDED EVERY 12 HOURS 2 unit(s) 5255498 RxNorm SPRAY IN 2 EACH NOSTRIL BOTH NEEDED EVERY 12 HOURS Polyethylene Glycol 3350 17 GM/1 Packet Oral Packet 12/04/2022 Unknown ORAL ONCE A DAY 17 GRAM 625740 RxNorm TAKE 17 GRAM ORAL ONCE A DAY Sennosides 8.6MG Oral Tablet 12/04/2022 Unknown ORAL TWICE A DAY 17.2 MILLIGRAMS 035971 RxNorm TAKE 17.2 MILLIGRAMS ORAL TWICE A DAY Sertraline HCl 100MG Oral Tablet 12/04/2022 Unknown ORAL ONCE A DAY 200 MILLIGRAMS 270752 RxNorm TAKE 200 MILLIGRAMS ORAL ONCE A DAY Sodium Chloride Nasal Mist 0.65% Nasal [place] 12/04/2022 Unknown NOSTR IL BOTH TWICE A DAY 1 unit(s) RxNorm SPRAY IN 1 EACH NOSTRIL BOTH TWICE A DAY Xarelto 20MG Oral Tablet 12/04/2022 Unknown ORAL ONCE A DAY 20 MILLIGRAMS 3680907 RxNorm TAKE 20 MILLIGRAMS ORAL ONCE A DAY budesonide-form oterol fumarate 80MCG-4.5MCG/1A ctuat Inhalation Aerosol Liquid 12/04/2022 Unknown INHAL ATION TWICE A DAY 2 unit(s) 6383668 RxNorm 2 EACH INHALATION TWICE A DAY levETIRAcetam 500MG Oral Tablet 12/04/2022 Unknown ORAL TWICE A DAY 500 MILLIGRAMS 292506 RxNorm TAKE 500 MILLIGRAMS ORAL TWICE A DAY Protonix 40 MG Oral Tablet, Delayed Release 12/04/2022 Unknown BY MOUTH 1 TABLET 276938 RxNorm TAKE 1 TABLET BY MOUTH Assessment [...] Status Code Code System METABOLIC ENCEPHALOPATHY active 99988 000 SNOMED-CT METABOLIC ALKALOSIS active 1264744 SNOMED-CT COPD WITH EXACERBATION active 5524770 07 SNOMED-CT BACTEREMIA CAUSED BY GRAM-POSITIVE BACTERIA active 931356152500 SNOME D-CT UTI active 14345795 SNOMED-CT DEHYDRATION active 69129583 SNOMED-C T HYPOMAGNESEMIA active 735206200 SNOME D-CT EPILEPSY active 82524071 SNOMED-CT Allergies and Adverse Reactions Allergy Substance Reaction Severity Start Date Concern Status Co de Code System PENICILLIN Active Plan of Treatment Song Follow Up Visit 09/22/2023 Personal Care Team Section Performer Name Performer Role Active Date Inactive MICHEAL Krishnamurthy PCP - Primary care physician 2022-09-24 2023-06-03 JACINTA CUNNINGHAM PCP - Primary care physician 2023-07-14
--- OUTSIDE RECORDS SUMMARY | 2025-09-02 10:27 | XMS_ITS ---
Author Organization Unknown Address [address] [place] [address] [phone] Phone Care Team Providers Care Learning And Development Director Name Role Phone OCTAVIO Mcguire Attending Unavailable [...] URINALYSIS w/Microscopy/C&S if indicated - Collect Date/Time: 01/21/2024 11:00 [facility] ID: [id number] [address] [place] [address], [id number] LOINC: 75022-8 Test Value Unit Reference Range Code Code System Flag UR SOURCE VOIDED 10927-6 LOINC COLOR GREEN YELLOW 5778-6 LOINC A CLARITY TURBID CLEAR 25783-9 LOINC A SPEC GRAVITY 1.010 1.000-1.030 5811-5 LOINC PH 8.5 5.0 - 6.5 5803-2 LOINC LEUK EST 3+ NEGATIVE 5799-2 LOINC A NITRATE NEGATIVE NEGATIVE PROTEIN 3+ NEGATIVE 5804-0 LOINC A GLUCOSE NEGATIVE NEGATIVE 80242-0 LOINC KETONES NEGATIVE NEGATIVE 85106-0 LOINC UROBILINOGEN 0.2EU/dL NEGATIVE 5818-0 LOINC BILIRUBIN NEGATIVE NEGATIVE 20989-1 LOINC BLOOD 3+ NEGATIVE 06637-6 LOINC A WBC TNTC 0 - 2 12660-1 LOINC A RBC TNTC 0 - 2 92381-2 LOINC A EPITHELIAL RARE RARE-FEW 35899-0 LOINC BACTERIA 3+ NONE SEEN 89846-1 LOINC A MUCUS NONE SEEN NONE SEEN 8247-9 LOINC YEAST NOT PRESENT NOT PRESENT 50798-2 LOINC CASTS NONE SEEN 24137-4 LOINC CRYSTALS NONE SEEN 72979-8 LOINC CULTURE? YES 8251-1 LOINC DIAGNOSIS ABN LAB RESU Social History Type Status Start Date End Date Code Code Syst em Smoking History Unknown if ever smoked [id number] Sex Female Medications Medication Start Date End Date Route Frequency Dose Code Code System Medication Instructions Home Meds OXcarbazepine 150MG Oral Tablet 10/28/2022 Unknown ORAL TWICE A DAY 150 MILLIGRAMS 107726 RxNorm TAKE 150 MILLIGRAMS ORAL TWICE A DAY oxyCODONE HCl 5MG Oral Tablet 10/28/2022 Unknown ORAL NEEDED EVERY 6 HOURS 5 MILLIGRAMS 2315046 RxNorm TAKE 5 MILLIGRAMS ORAL NEEDED EVERY 6 HOURS Acetaminophen 325MG Oral Tablet 12/04/2022 Unknown ORAL NEEDED EVERY 4 HOURS 650 MILLIGRAMS 799705 RxNorm TAKE 650 MILLIGRAMS ORAL NEEDED EVERY 4 HOURS Atorvastatin Calcium 40MG Oral Tablet 12/04/2022 Unknown ORAL AT BEDTIME 40 MILLIGRAMS 992363 RxNorm TAKE 40 MILLIGRAMS ORAL AT BEDTIME Bisacodyl 10MG Rectal Suppository 12/04/2022 Unknown RECTAL NEEDED DAILY 10 MILLIGRAMS 121958 RxNorm INSERT 10 MILLIGRAMS RECTAL NEEDED DAILY Budesonide 0.5MG/2ML Inhalation Suspension 12/04/2022 Unknown NEBULIZ ER RESP DAILY 0.5 MILLIGRAMS 087889 RxNorm 0.5 MILLIGRAMS NEBULIZER RESP DAILY Cetirizine HCl 10MG Oral Tablet 12/04/2022 Unknown ORAL ONCE A DAY 10 MILLIGRAMS 6950582 RxNorm TAKE 10 MILLIGRAMS ORAL ONCE A DAY Ferrous Sulfate 325MG Oral Tablet 12/04/2022 Unknown ORAL EVERY OTHER DAY 325 MILLIGRAMS 388948 RxNorm TAKE 325 MILLIGRAMS ORAL EVERY OTHER DAY Furosemide 40MG Oral Tablet 12/04/2022 Unknown ORAL ONCE A DAY 40 MILLIGRAMS 921275 RxNorm TAKE 40 MILLIGRAMS ORAL ONCE A DAY Gabapentin 300MG Oral Capsule 12/04/2022 Unknown ORAL THREE TIMES A DAY 300 MILLIGRAMS 251403 RxNorm TAKE 300 MILLIGRAMS ORAL THREE TIMES A DAY Ipratropium [place] rol Sulfate 0.5MG/3ML-3MG/ 3ML Inhalation Solution 12/04/2022 Unknown NEBULIZ ER NEEDED EVERY 2 HOURS 1 unit(s) 5074829 RxNorm 1 EACH NEBULIZER NEEDED EVERY 2 HOURS Melatonin 5 MG Oral Tablet 12/04/2022 Unknown ORAL AT BEDTIME 5 MG RxNorm TAKE 5 MG ORAL AT BEDTIME Milk Of Magnesia 2400MG/30ML Oral Suspension 12/04/2022 Unknown ORAL PRN Q72H 30 mL 040513 RxNorm TAKE 30 m L ORAL PRN Q72H Oxymetazoline HCl 0.05% Nasal [place] 12/04/2022 Unknown NOSTRIL BOTH NEEDED EVERY 12 HOURS 2 unit(s) 6078614 RxNorm SPRAY IN 2 EACH NOSTRIL BOTH NEEDED EVERY 12 HOURS Polyethylene Glycol 3350 17 GM/1 Packet Oral Packet 12/04/2022 Unknown ORAL ONCE A DAY 17 GRAM 990858 RxNorm TAKE 17 GRAM ORAL ONCE A DAY Sennosides 8.6MG Oral Tablet 12/04/2022 Unknown ORAL TWICE A DAY 17.2 MILLIGRAMS 759966 RxNorm TAKE 17.2 MILLIGRAMS ORAL TWICE A DAY Sertraline HCl 100MG Oral Tablet 12/04/2022 Unknown ORAL ONCE A DAY 200 MILLIGRAMS 114519 RxNorm TAKE 200 MILLIGRAMS ORAL ONCE A DAY Sodium Chloride Nasal Mist 0.65% Nasal [place] 12/04/2022 Unknown NOSTRIL BOTH TWICE A DAY 1 unit(s) RxNorm SPRAY IN 1 EACH NOSTRIL BOTH TWICE A DAY Xarelto 20MG Oral Tablet 12/04/2022 Unknown ORAL ONCE A DAY 20 MILLIGRAMS 5233625 RxNorm TAKE 20 MILLIGRAMS ORAL ONCE A DAY budesonide-for moterol fumarate 80MCG-4.5MCG/1 Actuat Inhalation Aerosol Liquid 12/04/2022 Unknown INHALAT ION TWICE A DAY 2 unit(s) 6218227 RxNorm 2 EACH INHALATION TWICE A DAY levETIRAcetam 500MG Oral Tablet 12/04/2022 Unknown ORAL TWICE A DAY 500 MILLIGRAMS 879559 RxNorm TAKE 500 MILLIGRAMS ORAL TWICE A DAY Protonix 40 MG Oral Tablet, Delayed Release 12/04/2022 Unknown BY MOUTH 1 TABLET 057696 RxNorm TAKE 1 TABLET BY MOUTH Assessment [...] Status Code Code System METABOLIC ENCEPHALOPATHY active 47693 000 SNOMED-CT METABOLIC ALKALOSIS active 4990090 SNOMED-CT COPD WITH EXACERBATION active 5034263 07 SNOMED-CT BACTEREMIA CAUSED BY GRAM-POSITIVE BACTERIA active 614182504886 SNOME D-CT UTI active 03641797 SNOMED-CT DEHYDRATION active 23672619 SNOMED-C T HYPOMAGNESEMIA active 611183767 SNOME D-CT EPILEPSY active 87805515 SNOMED-CT Allergies and Adverse Reactions Allergy Substance Reaction Severity Start Date Concern Status Co de Code System PENICILLIN Active Plan of Treatment Song Follow Up Visit 09/22/2023 Encounters Encounter Diagnosis Start Date Code Code Sys tem Chronic respiratory failure, unspecified whether with hypoxia or hypercapnia 01/21/2024 SNOMED-CT Personal Care Team Section Performer Name Performer Role Active Date Inactive MICHEAL Krishnamurthy PCP - Primary care physician 2022-09-24 2023-06-03 JACINTA CUNNINGHAM PCP - Primary care physician 2023-07-14
--- OUTSIDE RECORDS SUMMARY | 2025-09-02 10:27 | XMS_ITS ---
Author Organization Unknown Address [address] [place] [address] [phone] Phone Care Team Providers Care Community Health Nurse Name Role Phone CASSIUS GARCIA Attending Unavailable OCTAVIO Mcguire Primary Unavailable Immunization [...] Smoking History Unknown if ever smoked [address] Sex Female Medications Medication Start Date End Date Route Frequency Dose Code Code System Medication Instructions Home Meds OXcarbazepine 150MG Oral Tablet 10/28/2022 Unknown ORAL TWICE A DAY 150 MILLIGRAMS 046472 RxNorm TAKE 150 MILLIGRAMS ORAL TWICE A DAY oxyCODONE HCl 5MG Oral Tablet 10/28/2022 Unknown ORAL NEEDED EVERY 6 HOURS 5 MILLIGRAMS 9479900 RxNorm TAKE 5 MILLIGRAMS ORAL NEEDED EVERY 6 HOURS Acetaminophen 325MG Oral Tablet 12/04/2022 Unknown ORAL NEEDED EVERY 4 HOURS 650 MILLIGRAMS 901563 RxNorm TAKE 650 MILLIGRAMS ORAL NEEDED EVERY 4 HOURS Atorvastatin Calcium 40MG Oral Tablet 12/04/2022 Unknown ORAL AT BEDTIME 40 MILLIGRAMS 508563 RxNorm TAKE 40 MILLIGRAMS ORAL AT BEDTIME Bisacodyl 10MG Rectal Suppository 12/04/2022 Unknown RECTAL NEEDED DAILY 10 MILLIGRAMS 862950 RxNorm INSERT 10 MILLIGRAMS RECTAL NEEDED DAILY Budesonide 0.5MG/2ML Inhalation Suspension 12/04/2022 Unknown NEBULIZ ER RESP DAILY 0.5 MILLIGRAMS 858580 RxNorm 0.5 MILLIGRAMS NEBULIZER RESP DAILY Cetirizine HCl 10MG Oral Tablet 12/04/2022 Unknown ORAL ONCE A DAY 10 MILLIGRAMS 7986478 RxNorm TAKE 10 MILLIGRAMS ORAL ONCE A DAY Ferrous Sulfate 325MG Oral Tablet 12/04/2022 Unknown ORAL EVERY OTHER DAY 325 MILLIGRAMS 471536 RxNorm TAKE 325 MILLIGRAMS ORAL EVERY OTHER DAY Furosemide 40MG Oral Tablet 12/04/2022 Unknown ORAL ONCE A DAY 40 MILLIGRAMS 665906 RxNorm TAKE 40 MILLIGRAMS ORAL ONCE A DAY Gabapentin 300MG Oral Capsule 12/04/2022 Unknown ORAL THREE TIMES A DAY 300 MILLIGRAMS 329405 RxNorm TAKE 300 MILLIGRAMS ORAL THREE TIMES A DAY Ipratropium [place] rol Sulfate 0.5MG/3ML-3MG/ 3ML Inhalation Solution 12/04/2022 Unknown NEBULIZ ER NEEDED EVERY 2 HOURS 1 unit(s) 1265435 RxNorm 1 EACH NEBULIZER NEEDED EVERY 2 HOURS Melatonin 5 MG Oral Tablet 12/04/2022 Unknown ORAL AT BEDTIME 5 MG RxNorm TAKE 5 MG ORAL AT BEDTIME Milk Of Magnesia 2400MG/30ML Oral Suspension 12/04/2022 Unknown ORAL PRN Q72H 30 mL 551966 RxNorm TAKE 30 m L ORAL PRN Q72H Oxymetazoline HCl 0.05% Nasal [place] 12/04/2022 Unknown NOSTRIL BOTH NEEDED EVERY 12 HOURS 2 unit(s) 2309648 RxNorm SPRAY IN 2 EACH NOSTRIL BOTH NEEDED EVERY 12 HOURS Polyethylene Glycol 3350 17 GM/1 Packet Oral Packet 12/04/2022 Unknown ORAL ONCE A DAY 17 GRAM 708237 RxNorm TAKE 17 GRAM ORAL ONCE A DAY Sennosides 8.6MG Oral Tablet 12/04/2022 Unknown ORAL TWICE A DAY 17.2 MILLIGRAMS 907639 RxNorm TAKE 17.2 MILLIGRAMS ORAL TWICE A DAY Sertraline HCl 100MG Oral Tablet 12/04/2022 Unknown ORAL ONCE A DAY 200 MILLIGRAMS 294923 RxNorm TAKE 200 MILLIGRAMS ORAL ONCE A DAY Sodium Chloride Nasal Mist 0.65% Nasal [place] 12/04/2022 Unknown NOSTRIL BOTH TWICE A DAY 1 unit(s) RxNorm SPRAY IN 1 EACH NOSTRIL BOTH TWICE A DAY Xarelto 20MG Oral Tablet 12/04/2022 Unknown ORAL ONCE A DAY 20 MILLIGRAMS 0666151 RxNorm TAKE 20 MILLIGRAMS ORAL ONCE A DAY budesonide-for moterol fumarate 80MCG-4.5MCG/1 Actuat Inhalation Aerosol Liquid 12/04/2022 Unknown INHALAT ION TWICE A DAY 2 unit(s) 3743805 RxNorm 2 EACH INHALATION TWICE A DAY levETIRAcetam 500MG Oral Tablet 12/04/2022 Unknown ORAL TWICE A DAY 500 MILLIGRAMS 974752 RxNorm TAKE 500 MILLIGRAMS ORAL TWICE A DAY Protonix 40 MG Oral Tablet, Delayed Release 12/04/2022 Unknown BY MOUTH 1 TABLET 731046 RxNorm TAKE 1 TABLET BY MOUTH Assessment [...] Status Code Code System METABOLIC ENCEPHALOPATHY active 23143 000 SNOMED-CT METABOLIC ALKALOSIS active 0118757 SNOMED-CT COPD WITH EXACERBATION active 2045565 07 SNOMED-CT BACTEREMIA CAUSED BY GRAM-POSITIVE BACTERIA active 948633385202 SNOME D-CT UTI active 33127629 SNOMED-CT DEHYDRATION active 43606411 SNOMED-C T HYPOMAGNESEMIA active 180480106 SNOME D-CT EPILEPSY active 43711324 SNOMED-CT Allergies and Adverse Reactions Allergy Substance Reaction Severity Start Date Concern Status Co de Code System PENICILLIN Active Plan of Treatment Song Follow Up Visit 09/22/2023 Encounters Encounter Diagnosis Start Date Code Code Sys tem Chronic obstructive pulmonary disease, unspecified SNOMED-CT Personal Care Team Section Performer Name Performer Role Active Date Inactive MICHEAL Krishnamurthy PCP - Primary care physician 2022-09-24 2023-06-03 JACINTA CUNNINGHAM PCP - Primary care physician 2023-07-14
--- OUTSIDE RECORDS SUMMARY | 2025-09-02 10:27 | XMS_ITS ---
Author Organization Unknown Address [address] [place] [address] [phone] Phone Care Team Providers Care Nuclear Worker Technician Name Role Phone OCTAVIO Mcguire Attending Unavailable [...] BASIC METABOLIC PANEL - Mark ect Date/Time: 09/20/2023 08:00 [facility] ID: [id number] [place] [address], [phone] LOINC: 78445-9 Test Value Unit Reference Range Code Code System Flag FASTING YES BUN 51 mg/dL L=7 H=20 3094-0 LOINC H CREATININE 2.70 mg/dL L=0.52 H=1.04 2160-0 LOINC H GLUCOSE 105 mg/dL L=74 H=106 2345-7 LOINC CALCIUM 8.6 mg/dL L=8.3 H=10.5 37510-4 LOINC SODIUM 139 mmol/L L=132 H=144 2951-2 LOINC POTASSIUM 4.0 mmol/L L=3.5 H=5.1 2823-3 LOINC CHLORIDE 95 mmol/L L=98 H=107 2075-0 LOINC L CO2 36.0 mmol/L L=22.0 H=30.0 2028-9 LOINC H ANION GAP 12 L=10 H=20 12358-2 LOINC BUN/CREAT 18.9 3097-3 LOINC AGE 63 82156-0 LOINC eGFR NON-AFR 19 ml/min eGFR AFR AMER 23 ml/min Social History Type Status Start Date End Date Code Code Syst em Smoking History Unknown if ever smoked [id number] Sex Female Medications Medication Start Date End Date Route Frequency Dose Code Code System Medication Instructions Home Meds OXcarbazepine 150MG Oral Tablet 10/28/2022 Unknown ORAL TWICE A DAY 150 MILLIGRAMS 456058 RxNorm TAKE 150 MILLIGRAMS ORAL TWICE A DAY oxyCODONE HCl 5MG Oral Tablet 10/28/2022 Unknown ORAL NEEDED EVERY 6 HOURS 5 MILLIGRAMS 3611672 RxNorm TAKE 5 MILLIGRAMS ORAL NEEDED EVERY 6 HOURS Acetaminophen 325MG Oral Tablet 12/04/2022 Unknown ORAL NEEDED EVERY 4 HOURS 650 MILLIGRAMS 497556 RxNorm TAKE 650 MILLIGRAMS ORAL NEEDED EVERY 4 HOURS Atorvastatin Calcium 40MG Oral Tablet 12/04/2022 Unknown ORAL AT BEDTIME 40 MILLIGRAMS 072541 RxNorm TAKE 40 MILLIGRAMS ORAL AT BEDTIME Bisacodyl 10MG Rectal Suppository 12/04/2022 Unknown RECTAL NEEDED DAILY 10 MILLIGRAMS 153750 RxNorm INSERT 10 MILLIGRAMS RECTAL NEEDED DAILY Budesonide 0.5MG/2ML Inhalation Suspension 12/04/2022 Unknown NEBULIZ ER RESP DAILY 0.5 MILLIGRAMS 714839 RxNorm 0.5 MILLIGRAMS NEBULIZER RESP DAILY Cetirizine HCl 10MG Oral Tablet 12/04/2022 Unknown ORAL ONCE A DAY 10 MILLIGRAMS 4652379 RxNorm TAKE 10 MILLIGRAMS ORAL ONCE A DAY Ferrous Sulfate 325MG Oral Tablet 12/04/2022 Unknown ORAL EVERY OTHER DAY 325 MILLIGRAMS 618489 RxNorm TAKE 325 MILLIGRAMS ORAL EVERY OTHER DAY Furosemide 40MG Oral Tablet 12/04/2022 Unknown ORAL ONCE A DAY 40 MILLIGRAMS 157403 RxNorm TAKE 40 MILLIGRAMS ORAL ONCE A DAY Gabapentin 300MG Oral Capsule 12/04/2022 Unknown ORAL THREE TIMES A DAY 300 MILLIGRAMS 608274 RxNorm TAKE 300 MILLIGRAMS ORAL THREE TIMES A DAY Ipratropium [place] rol Sulfate 0.5MG/3ML-3MG/ 3ML Inhalation Solution 12/04/2022 Unknown NEBULIZ ER NEEDED EVERY 2 HOURS 1 unit(s) 7503640 RxNorm 1 EACH NEBULIZER NEEDED EVERY 2 HOURS Melatonin 5 MG Oral Tablet 12/04/2022 Unknown ORAL AT BEDTIME 5 MG RxNorm TAKE 5 MG ORAL AT BEDTIME Milk Of Magnesia 2400MG/30ML Oral Suspension 12/04/2022 Unknown ORAL PRN Q72H 30 mL 806508 RxNorm TAKE 30 m L ORAL PRN Q72H Oxymetazoline HCl 0.05% Nasal [place] 12/04/2022 Unknown NOSTRIL BOTH NEEDED EVERY 12 HOURS 2 unit(s) 8770685 RxNorm SPRAY IN 2 EACH NOSTRIL BOTH NEEDED EVERY 12 HOURS Polyethylene Glycol 3350 17 GM/1 Packet Oral Packet 12/04/2022 Unknown ORAL ONCE A DAY 17 GRAM 886612 RxNorm TAKE 17 GRAM ORAL ONCE A DAY Sennosides 8.6MG Oral Tablet 12/04/2022 Unknown ORAL TWICE A DAY 17.2 MILLIGRAMS 431018 RxNorm TAKE 17.2 MILLIGRAMS ORAL TWICE A DAY Sertraline HCl 100MG Oral Tablet 12/04/2022 Unknown ORAL ONCE A DAY 200 MILLIGRAMS 424109 RxNorm TAKE 200 MILLIGRAMS ORAL ONCE A DAY Sodium Chloride Nasal Mist 0.65% Nasal [place] 12/04/2022 Unknown NOSTRIL BOTH TWICE A DAY 1 unit(s) RxNorm SPRAY IN 1 EACH NOSTRIL BOTH TWICE A DAY Xarelto 20MG Oral Tablet 12/04/2022 Unknown ORAL ONCE A DAY 20 MILLIGRAMS 0102063 RxNorm TAKE 20 MILLIGRAMS ORAL ONCE A DAY budesonide-for moterol fumarate 80MCG-4.5MCG/1 Actuat Inhalation Aerosol Liquid 12/04/2022 Unknown INHALAT ION TWICE A DAY 2 unit(s) 9748852 RxNorm 2 EACH INHALATION TWICE A DAY levETIRAcetam 500MG Oral Tablet 12/04/2022 Unknown ORAL TWICE A DAY 500 MILLIGRAMS 404328 RxNorm TAKE 500 MILLIGRAMS ORAL TWICE A DAY Protonix 40 MG Oral Tablet, Delayed Release 12/04/2022 Unknown BY MOUTH 1 TABLET 384840 RxNorm TAKE 1 TABLET BY MOUTH Assessment [...] Status Code Code System METABOLIC ENCEPHALOPATHY active 62882 000 SNOMED-CT METABOLIC ALKALOSIS active 7039974 SNOMED-CT COPD WITH EXACERBATION active 1587485 07 SNOMED-CT BACTEREMIA CAUSED BY GRAM-POSITIVE BACTERIA active 954524585027 SNOME D-CT UTI active 21076395 SNOMED-CT DEHYDRATION active 01490684 SNOMED-C T HYPOMAGNESEMIA active 810692280 SNOME D-CT EPILEPSY active 14602799 SNOMED-CT Allergies and Adverse Reactions Allergy Substance Reaction Severity Start Date Concern Status Co de Code System PENICILLIN Active Plan of Treatment Song Follow Up Visit 09/22/2023 Encounters Encounter Diagnosis Start Date Code Code Sys tem Chronic kidney disease, stage 3 unspecified 09/20/2023 SNOMED-CT Personal Care Team Section Performer Name Performer Role Active Date Inactive MICHEAL Krishnamurthy PCP - Primary care physician 2022-09-24 2023-06-03 JACINTA CUNNINGHAM PCP - Primary care physician 2023-07-14
--- OUTSIDE RECORDS SUMMARY | 2025-09-02 10:28 | XMS_ITS ---
Author Organization Unknown Address [address] [place] [address] [phone] Phone Care Team Providers Care Arcgis Developer Name Role Phone TEQUILA BURRELL Attending Unavailable [...] mcg/0.5 mL 08/27/2023 Completed 312 CVX Results MAGNESIUM - Collect Date/[place] e: 10/29/2023 08:35 [facility] ID: [id number] [place] [address], [phone] LOINC: 36164-3 Test Value Unit Reference Range Code Code System Flag MAGNESIUM 1.9 mg/dL L=1.6 H=2.3 58115-3 LOINC CBC W/ DIFF - Collect Date/T pili: 10/29/2023 08:35 [facility] ID: [id number] [address] [place], [place], [phone] LOINC: 43963-1 Test Value Unit Reference Range Code Code System Flag WBC 4.2 10^3uL L=4.8 H=10.8 L RBC 2.77 10^6uL L=4.20 H=5.40 L HEMOGLOBIN 7.5 g/dL L=12.0 H=16.0 718-7 LOINC LL CALLED TO: JIMENA Serra @ AT: 0850 10/29/23 BY: SDK HEMATOCRIT 24.8 VOL% L=37.0 H=47.0 4544-3 LOINC L MCV 89.5 fL L=81.0 H=99.0 MCH 27.1 pg L=27.0 H=32.0 MCHC 30.2 g/dL L=32.0 H=36.0 L PLATELETS 138 10^3uL L=100 H=400 93200-6 LOINC RDW 14.7 % L=11.7 H=15.5 %GRAN 76.3 % L=40.0 H=70.0 53473-8 LOINC H %LYMPH 16.4 % L=20.0 H=45.0 736-9 LOINC L %MONO 6.4 % L=2.0 H=10.0 37399-2 LOINC %EOS 0.0 % L=0.0 H=6.0 713-8 LOINC %BASO 0.2 % L=0.0 H=3.0 706-2 LOINC #NEUT 3.2 10^3uL L=1.9 H=7.6 92662-1 LOINC #LYMPH 0.7 10^3uL L=0.9 H=4.9 92736-6 LOINC L #MONO 0.3 10^3uL L=0.1 H=0.9 57066-8 LOINC #EOS 0.0 10^3uL L=0.0 H=0.6 712-0 LOINC #BASO 0.01 10^3uL L=0.00 H=0.10 28932-3 LOINC #IM GRANS 0.0 10^3uL L=0.0 H=7.0 49799-0 LOINC %IM GRANS 0.7 % L=0.0 H=5.0 45072-2 LOINC %NRB 0.0 L=0.0 H=0.2 76341-0 LOINC #NRB 0.000 L=0.000 H=0.012 61925-2 LOINC MANUAL DIFF NOT INDICATED RBC MORPH NOT INDICATED COMPREHENSIVE METABOLIC PANE L - Collect Date/Time: 10/29/2023 08:35 [facility] ID: [id number] [address] [place], [place], [phone] LOINC: 31985-8 Test Value Unit Reference Range Code Code System Flag FASTING UNKNOWN BUN 40 mg/dL L=7 H=20 3094-0 LOINC H CREATININE 2.60 mg/dL L=0.52 H=1.04 2160-0 LOINC H GLUCOSE 126 mg/dL L=74 H=106 2345-7 LOINC H SODIUM 139 mmol/L L=132 H=144 2951-2 LOINC POTASSIUM 3.8 mmol/L L=3.5 H=5.1 2823-3 LOINC CHLORIDE 102 mmol/L L=98 H=107 2075-0 LOINC CO2 32.0 mmol/L L=22.0 H=30.0 2028-9 LOINC H ANION GAP 9 L=10 H=20 35522-9 LOINC L OSMOLALITY 299 mOs/kG L=280 H=296 91766-5 LOINC H BUN/CREAT 15.4 3097-3 LOINC CALCIUM 8.7 mg/dL L=8.3 H=10.5 41706-0 LOINC AST 19 U/L L=15 H=46 1920-8 LOINC ALT 13 U/L L=9 H=72 1742-6 LOINC ALKALINE PHOS 79 U/L L=38 H=126 6768-6 LOINC TOTAL BILI 0.2 mg/dL L=0.2 H=1.3 1975-2 LOINC ALBUMIN 3.5 G/dL L=3.5 H=5.0 1751-7 LOINC TOTAL PROTEIN 7.0 g/L L=6.3 H=8.2 2885-2 LOINC A/G RATIO 1.0 36907-7 LOINC AGE 63 60823-6 LOINC eGFR NON-AFR 20 ml/min eGFR AFR AMER 24 ml/min LACTIC ACID - Collect Date/T pili: 10/29/2023 08:35 [facility] ID: [id number] [address] [place] [address], [phone] LOINC: 56029-8 Test Value Unit Reference Range Code Code System Flag LACTIC ACID 1.3 mmol/L L=0.7 H=2.1 23126-6 LOINC URINALYSIS w/Microscopy/C&S if indicated - Collect Date/Time: 10/29/2023 08:27 [facility] ID: [id number] [address] [place], [place], [id number] LOINC: 18618-9 Test Value Unit Reference Range Code Code System Flag UR SOURCE UNKNOWN 95948-9 LOINC COLOR LT YELLOW YELLOW 5778-6 LOINC CLARITY SL CLOUDY CLEAR 40168-8 LOINC SPEC GRAVITY 1.010 1.000-1.030 5811-5 LOINC PH 6.0 5.0 - 6.5 5803-2 LOINC LEUK EST 2+ NEGATIVE 5799-2 LOINC A NITRATE NEGATIVE NEGATIVE PROTEIN TRACE NEGATIVE 5804-0 LOINC GLUCOSE NEGATIVE NEGATIVE 69165-1 LOINC KETONES NEGATIVE NEGATIVE 58043-8 LOINC UROBILINOGEN 0.2 NEGATIVE 5818-0 LOINC BILIRUBIN NEGATIVE NEGATIVE 38098-6 LOINC BLOOD TRACE-INT NEGATIVE 30654-6 LOINC WBC 10-20 0 - 2 51998-3 LOINC A RBC 2-5 0 - 2 27411-0 LOINC EPITHELIAL RARE RARE-FEW 96700-9 LOINC BACTERIA 2+ NONE SEEN 24141-9 LOINC A MUCUS NONE SEEN NONE SEEN 8247-9 LOINC YEAST NOT PRESENT NOT PRESENT 63837-4 LOINC CASTS NONE SEEN 88251-8 LOINC CRYSTALS NONE SEEN 07098-0 LOINC CULTURE? YES 8251-1 LOINC DIAGNOSIS N/A CT ABD/PEL WO CONTRAST - Com pleted: 10/29/2023 09:06 [facility]: 96815-7 EXAM DESCRIPTION: CT ABD/PEL WO CONTRAST REASON FOR STUDY: bilateral flank pain hx of kidney failure Duration: today TECHNIQUE: CT scan of the abdomen and pelvis performed without intravenous and without oral contrast using helical scanning technique. Reconstructed coronal and sagittal MPR images reviewed. All images stored on PACS. Automated exposure control was used as a dose optimization technique for this examination. COMPARISON: None available FINDINGS: The sensitivity for detection of visceral lesions is diminished without the use of intravenous contrast and due to body habitus causing prominent streak artifact through the abdomen. LOWER CHEST: Scattered left lower lobe opacities, favoring atelectasis versus consolidation. No pleural effusion. LIVER: Normal size. No identified cystic or solid masses. GALLBLADDER: Cholelithiasis. No definite gallbladder wall thickening or pericholecystic fluid/inflammation. BILE DUCTS: No intrahepatic or extrahepatic ductal dilatation. SPLEEN: Splenomegaly measuring at least 21 cm in the craniocaudal dimension. No definite lesion identified. Mild inflammatory stranding or edema around the inferior margin of the spleen. PANCREAS: Diffuse fatty atrophy. Otherwise unremarkable noncontrast appearance. ADRENALS: Mild thickening left adrenal gland, possibly adenomatous. Normal right adrenal gland. KIDNEYS/URINARY TRACT: Left perinephric and proximal periureteral stranding. The left kidney is significantly atrophic. There is a 5.1 cm round exophytic lesion in the superior pole of the left kidney. Large branched calculus in the left renal pelvis measuring up to 4.4 x 3.8 cm on the coronal series 6, image 107. No hydronephrosis or distal ureteral calculus identified. No right renal calculus or hydronephrosis. No ureteral calculus. Harry catheter within the bladder which is decompressed and otherwise not well assessed on this study. GI: No dilated bowel loops. No obvious wall thickening. Normal appendix. Mild colonic diverticula without evidence of diverticulitis. No significant stool burden. PERITONEUM: No ascites or free air. RETROPERITONEUM: No mass or adenopathy. REPRODUCTIVE: No significant abnormality. VASCULATURE: Atherosclerotic calcification of the aorta without aneurysm. MUSCULOSKELETAL: Mild T12 superior endplate compression deformity with linear sclerosis and no fracture fragment retropulsion. Slight L2 superior endplate compression deformity with linear sclerosis and no fracture fragment retropulsion. Subtle 2 point cm lesion L5 vertebral body is nonspecific but commonly a hemangioma. Nonspecific 0.8 cm focal calcification in the left L3 vertebral body. Thoracolumbar spondylosis up to moderate to severe at L5-S1 OTHER: Tiny midline anterior abdominal wall fat containing hernia. Scattered subcutaneous attenuation in the anterior abdomen favoring a combination of artifact and edema with infectious/inflammatory process difficult to exclude. No drainable fluid collection. IMPRESSION: ? ? 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 No hydronephrosis or distal ureteral calculus identified. Harry catheter within a decompressed urinary bladder that is otherwise not well assessed on this study. ? ? Left renal atrophy with a 5.1 cm round exophytic lesion in the superior pole that is indeterminate on this noncontrast exam. Recommend nonurgent renal mass protocol MRI for further evaluation. ? ? Cholelithiasis without CT evidence of acute cholecystitis. ? ? Splenomegaly measuring at least 21 cm. ? ? Mild T12 and L2 superior endplate compression deformities with linear sclerosis and no fracture fragment retropulsion. Age indeterminate but could represent acute to subacute fractures. ? ? Scattered subcutaneous attenuation in the anterior abdomen favoring a combination of artifact and edema with infectious/inflammatory process difficult to exclude. No drainable fluid collection. ? ? Scattered left lower lobe opacities, favor atelectasis versus consolidation. THIS IS AN ELECTRONICALLY VERIFIED FINAL REPORT 10/29/2023 10:09 AM - Electronically signed by Clinton Arroyo M.D. AG: LEE Report ID: [id number] Reading Location: [id number] Social History Type Status Start Date End Date Code Code Syst em Smoking History Unknown if ever smoked [id number] Sex Female Medications Medication Start Date End Date Route Frequency Dose Code Code System Medication Instructions Home Meds OXcarbazepine 150MG Oral Tablet 10/28/2022 Unknown ORAL TWICE A DAY 150 MILLIGRAMS 815257 RxNorm TAKE 150 MILLIGRAMS ORAL TWICE A DAY oxyCODONE HCl 5MG Oral Tablet 10/28/2022 Unknown ORAL NEEDED EVERY 6 HOURS 5 MILLIGRAMS 3818902 RxNorm TAKE 5 MILLIGRAMS ORAL NEEDED EVERY 6 HOURS Acetaminophen 325MG Oral Tablet 12/04/2022 Unknown ORAL NEEDED EVERY 4 HOURS 650 MILLIGRAMS 980453 RxNorm TAKE 650 MILLIGRAMS ORAL NEEDED EVERY 4 HOURS Atorvastatin Calcium 40MG Oral Tablet 12/04/2022 Unknown ORAL AT BEDTIME 40 MILLIGRAMS 864799 RxNorm TAKE 40 MILLIGRAMS ORAL AT BEDTIME Bisacodyl 10MG Rectal Suppository 12/04/2022 Unknown RECTAL NEEDED DAILY 10 MILLIGRAMS 014352 RxNorm INSERT 10 MILLIGRAMS RECTAL NEEDED DAILY Budesonide 0.5MG/2ML Inhalation Suspension 12/04/2022 Unknown NEBULIZ ER RESP DAILY 0.5 MILLIGRAMS 209775 RxNorm 0.5 MILLIGRAMS NEBULIZER RESP DAILY Cetirizine HCl 10MG Oral Tablet 12/04/2022 Unknown ORAL ONCE A DAY 10 MILLIGRAMS 0699163 RxNorm TAKE 10 MILLIGRAMS ORAL ONCE A DAY Ferrous Sulfate 325MG Oral Tablet 12/04/2022 Unknown ORAL EVERY OTHER DAY 325 MILLIGRAMS 713401 RxNorm TAKE 325 MILLIGRAMS ORAL EVERY OTHER DAY Furosemide 40MG Oral Tablet 12/04/2022 Unknown ORAL ONCE A DAY 40 MILLIGRAMS 485062 RxNorm TAKE 40 MILLIGRAMS ORAL ONCE A DAY Gabapentin 300MG Oral Capsule 12/04/2022 Unknown ORAL THREE TIMES A DAY 300 MILLIGRAMS 785909 RxNorm TAKE 300 MILLIGRAMS ORAL THREE TIMES A DAY Ipratropium [place] rol Sulfate 0.5MG/3ML-3MG/ 3ML Inhalation Solution 12/04/2022 Unknown NEBULIZ ER NEEDED EVERY 2 HOURS 1 unit(s) 4787458 RxNorm 1 EACH NEBULIZER NEEDED EVERY 2 HOURS Melatonin 5 MG Oral Tablet 12/04/2022 Unknown ORAL AT BEDTIME 5 MG RxNorm TAKE 5 MG ORAL AT BEDTIME Milk Of Magnesia 2400MG/30ML Oral Suspension 12/04/2022 Unknown ORAL PRN Q72H 30 mL 522411 RxNorm TAKE 30 m L ORAL PRN Q72H Oxymetazoline HCl 0.05% Nasal [place] 12/04/2022 Unknown NOSTRIL BOTH NEEDED EVERY 12 HOURS 2 unit(s) 2921026 RxNorm SPRAY IN 2 EACH NOSTRIL BOTH NEEDED EVERY 12 HOURS Polyethylene Glycol 3350 17 GM/1 Packet Oral Packet 12/04/2022 Unknown ORAL ONCE A DAY 17 GRAM 858862 RxNorm TAKE 17 GRAM ORAL ONCE A DAY Sennosides 8.6MG Oral Tablet 12/04/2022 Unknown ORAL TWICE A DAY 17.2 MILLIGRAMS 396605 RxNorm TAKE 17.2 MILLIGRAMS ORAL TWICE A DAY Sertraline HCl 100MG Oral Tablet 12/04/2022 Unknown ORAL ONCE A DAY 200 MILLIGRAMS 340944 RxNorm TAKE 200 MILLIGRAMS ORAL ONCE A DAY Sodium Chloride Nasal Mist 0.65% Nasal [place] 12/04/2022 Unknown NOSTRIL BOTH TWICE A DAY 1 unit(s) RxNorm SPRAY IN 1 EACH NOSTRIL BOTH TWICE A DAY Xarelto 20MG Oral Tablet 12/04/2022 Unknown ORAL ONCE A DAY 20 MILLIGRAMS 0911360 RxNorm TAKE 20 MILLIGRAMS ORAL ONCE A DAY budesonide-for moterol fumarate 80MCG-4.5MCG/1 Actuat Inhalation Aerosol Liquid 12/04/2022 Unknown INHALAT ION TWICE A DAY 2 unit(s) 8952200 RxNorm 2 EACH INHALATION TWICE A DAY levETIRAcetam 500MG Oral Tablet 12/04/2022 Unknown ORAL TWICE A DAY 500 MILLIGRAMS 206968 RxNorm TAKE 500 MILLIGRAMS ORAL TWICE A DAY Protonix 40 MG Oral Tablet, Delayed Release 12/04/2022 Unknown BY MOUTH 1 TABLET 067853 RxNorm TAKE 1 TABLET BY MOUTH Assessment [...] Status Code Code System METABOLIC ENCEPHALOPATHY active 17044 000 SNOMED-CT METABOLIC ALKALOSIS active 8825554 SNOMED-CT COPD WITH EXACERBATION active 4339074 07 SNOMED-CT BACTEREMIA CAUSED BY GRAM-POSITIVE BACTERIA active 147817210660 SNOME D-CT UTI active 84136744 SNOMED-CT DEHYDRATION active 32653433 SNOMED-C T HYPOMAGNESEMIA active 097795537 SNOME D-CT EPILEPSY active 46965678 SNOMED-CT Allergies and Adverse Reactions Allergy Substance Reaction Severity Start Date Concern Status Co de Code System PENICILLIN Active Plan of Treatment Song Follow Up Visit 09/22/2023 Encounters Encounter Diagnosis Start Date Code Code Sys tem Urinary tract infection, site not specified 10/29/2023 SNOMED-CT Personal Care Team Section Performer Name Performer Role Active Date Inactive MICHEAL Krishnamurthy PCP - Primary care physician 2022-09-24 2023-06-03 JACINTA CUNNINGHAM PCP - Primary care physician 2023-07-14 Imaging Narrative Notes
--- OUTSIDE RECORDS SUMMARY | 2025-09-02 10:28 | XMS_ITS ---
Author Organization Unknown Address [address] [place] [phone] Phone Care Team Providers Care Farm Contractor Name Role Phone OCTAVIO Mcguire Attending Unavailable [...] mcg/0.5 mL 08/27/2023 Completed 312 CVX Results C DIFF TOXIN/EPI STOOL PCR C EPHEID - Collect Date/Time: 11/05/2023 11:00 [facility] ID: [id number] [address] [place] [address], [phone] LOINC: 78886-8 Test Value Unit Reference Range Code Code System Flag EPIDEMIC C. DIFF NEGATIVE NORMAL: NEGATIVE ACCEPTABLE SPECIMEN? YES 6768-6 LOINC SEND TO [facility]? NO Social History Type Status Start Date End Date Code Code Syst em Smoking History Unknown if ever smoked [address] Sex Female Medications Medication Start Date End Date Route Frequency Dose Code Code System Medication Instructions Home Meds OXcarbazepine 150MG Oral Tablet 10/28/2022 Unknown ORAL TWICE A DAY 150 MILLIGRAMS 695386 RxNorm TAKE 150 MILLIGRAMS ORAL TWICE A DAY oxyCODONE HCl 5MG Oral Tablet 10/28/2022 Unknown ORAL NEEDED EVERY 6 HOURS 5 MILLIGRAMS 3172797 RxNorm TAKE 5 MILLIGRAMS ORAL NEEDED EVERY 6 HOURS Acetaminophen 325MG Oral Tablet 12/04/2022 Unknown ORAL NEEDED EVERY 4 HOURS 650 MILLIGRAMS 888162 RxNorm TAKE 650 MILLIGRAMS ORAL NEEDED EVERY 4 HOURS Atorvastatin Calcium 40MG Oral Tablet 12/04/2022 Unknown ORAL AT BEDTIME 40 MILLIGRAMS 445414 RxNorm TAKE 40 MILLIGRAMS ORAL AT BEDTIME Bisacodyl 10MG Rectal Suppository 12/04/2022 Unknown RECTAL NEEDED DAILY 10 MILLIGRAMS 080109 RxNorm INSERT 10 MILLIGRAMS RECTAL NEEDED DAILY Budesonide 0.5MG/2ML Inhalation Suspension 12/04/2022 Unknown NEBULIZ ER RESP DAILY 0.5 MILLIGRAMS 486566 RxNorm 0.5 MILLIGRAMS NEBULIZER RESP DAILY Cetirizine HCl 10MG Oral Tablet 12/04/2022 Unknown ORAL ONCE A DAY 10 MILLIGRAMS 1016553 RxNorm TAKE 10 MILLIGRAMS ORAL ONCE A DAY Ferrous Sulfate 325MG Oral Tablet 12/04/2022 Unknown ORAL EVERY OTHER DAY 325 MILLIGRAMS 628442 RxNorm TAKE 325 MILLIGRAMS ORAL EVERY OTHER DAY Furosemide 40MG Oral Tablet 12/04/2022 Unknown ORAL ONCE A DAY 40 MILLIGRAMS 749786 RxNorm TAKE 40 MILLIGRAMS ORAL ONCE A DAY Gabapentin 300MG Oral Capsule 12/04/2022 Unknown ORAL THREE TIMES A DAY 300 MILLIGRAMS 258688 RxNorm TAKE 300 MILLIGRAMS ORAL THREE TIMES A DAY Ipratropium [place] rol Sulfate 0.5MG/3ML-3MG/ 3ML Inhalation Solution 12/04/2022 Unknown NEBULIZ ER NEEDED EVERY 2 HOURS 1 unit(s) 3053292 RxNorm 1 EACH NEBULIZER NEEDED EVERY 2 HOURS Melatonin 5 MG Oral Tablet 12/04/2022 Unknown ORAL AT BEDTIME 5 MG RxNorm TAKE 5 MG ORAL AT BEDTIME Milk Of [place] 2400MG/30ML Oral Suspension 12/04/2022 Unknown ORAL PRN Q72H 30 mL 169650 RxNorm TAKE 30 m L ORAL PRN Q72H Oxymetazoline HCl 0.05% Nasal [place] 12/04/2022 Unknown NOSTRIL BOTH NEEDED EVERY 12 HOURS 2 unit(s) 7415012 RxNorm SPRAY IN 2 EACH NOSTRIL BOTH NEEDED EVERY 12 HOURS Polyethylene Glycol 3350 17 GM/1 Packet Oral Packet 12/04/2022 Unknown ORAL ONCE A DAY 17 GRAM 690677 RxNorm TAKE 17 GRAM ORAL ONCE A DAY Sennosides 8.6MG Oral Tablet 12/04/2022 Unknown ORAL TWICE A DAY 17.2 MILLIGRAMS 613857 RxNorm TAKE 17.2 MILLIGRAMS ORAL TWICE A DAY Sertraline HCl 100MG Oral Tablet 12/04/2022 Unknown ORAL ONCE A DAY 200 MILLIGRAMS 482111 RxNorm TAKE 200 MILLIGRAMS ORAL ONCE A DAY Sodium Chloride Nasal Mist 0.65% Nasal [place] 12/04/2022 Unknown NOSTRIL BOTH TWICE A DAY 1 unit(s) RxNorm SPRAY IN 1 EACH NOSTRIL BOTH TWICE A DAY Xarelto 20MG Oral Tablet 12/04/2022 Unknown ORAL ONCE A DAY 20 MILLIGRAMS 0749626 RxNorm TAKE 20 MILLIGRAMS ORAL ONCE A DAY budesonide-for moterol fumarate 80MCG-4.5MCG/1 Actuat Inhalation Aerosol Liquid 12/04/2022 Unknown INHALAT ION TWICE A DAY 2 unit(s) 8824869 RxNorm 2 EACH INHALATION TWICE A DAY levETIRAcetam 500MG Oral Tablet 12/04/2022 Unknown ORAL TWICE A DAY 500 MILLIGRAMS 278252 RxNorm TAKE 500 MILLIGRAMS ORAL TWICE A DAY Protonix 40 MG Oral Tablet, Delayed Release 12/04/2022 Unknown BY MOUTH 1 TABLET 555401 RxNorm TAKE 1 TABLET BY MOUTH Assessment [...] Status Code Code System METABOLIC ENCEPHALOPATHY active 06789 000 SNOMED-CT METABOLIC ALKALOSIS active 2100311 SNOMED-CT COPD WITH EXACERBATION active 0411410 07 SNOMED-CT BACTEREMIA CAUSED BY GRAM-POSITIVE BACTERIA active 490079494128 SNOME D-CT UTI active 23438592 SNOMED-CT DEHYDRATION active 03819939 SNOMED-C T HYPOMAGNESEMIA active 673827041 SNOME D-CT EPILEPSY active 11311816 SNOMED-CT Allergies and Adverse Reactions Allergy Substance Reaction Severity Start Date Concern Status Co de Code System PENICILLIN Active Plan of Treatment Song Follow Up Visit 09/22/2023 Encounters Encounter Diagnosis Start Date Code Code Sys tem Diarrhea 11/05/2023 05828789 SNOMED-CT Personal Care Team Section Performer Name Performer Role Active Date Inactive MICHEAL Krishnamurthy PCP - Primary care physician 2022-09-24 2023-06-03 JACINTA CUNNINGHAM PCP - Primary care physician 2023-07-14
--- OUTSIDE RECORDS SUMMARY | 2025-09-02 10:28 | XMS_ITS ---
Author Organization Unknown Address [address] [place] [phone] Phone Care Team Providers Care Chip Tuner Name Role Phone OCTAVIO Mcguire Attending Unavailable [...] CBC W/ DIFF - Collect Date/T pili: 04/20/2024 07:13 [facility] ID: [id number] [address] [place] [address], [phone] LOINC: 38414-5 Test Value Unit Reference Range Code Code System Flag WBC 3.1 10^3uL L=4.8 H=10.8 L RBC 2.26 10^6uL L=4.20 H=5.40 L HEMOGLOBIN 6.4 g/dL L=12.0 H=16.0 718-7 LOINC LL CALLED TO: CHAPIS Dobbins @[facility] AT: 0839 04/20/24 BY: SDK HEMATOCRIT 20.8 VOL% L=37.0 H=47.0 4544-3 LOINC L MCV 92.0 fL L=81.0 H=99.0 MCH 28.3 pg L=27.0 H=32.0 MCHC 30.8 g/dL L=32.0 H=36.0 L PLATELETS 107 10^3uL L=100 H=400 94219-7 LOINC RDW 16.1 % L=11.7 H=15.5 H %GRAN 71.4 % L=40.0 H=70.0 16072-0 LOINC H %LYMPH 19.5 % L=20.0 H=45.0 736-9 LOINC L %MONO 8.8 % L=2.0 H=10.0 98143-6 LOINC %EOS 0.0 % L=0.0 H=6.0 713-8 LOINC %BASO 0.0 % L=0.0 H=3.0 706-2 LOINC #NEUT 2.2 10^3uL L=1.9 H=7.6 07077-4 LOINC #LYMPH 0.6 10^3uL L=0.9 H=4.9 98500-2 LOINC L #MONO 0.3 10^3uL L=0.1 H=0.9 86444-2 LOINC #EOS 0.0 10^3uL L=0.0 H=0.6 712-0 LOINC #BASO 0.00 10^3uL L=0.00 H=0.10 40854-6 LOINC #IM GRANS 0.0 10^3uL L=0.0 H=7.0 78602-5 LOINC %IM GRANS 0.3 % L=0.0 H=5.0 84153-4 LOINC %NRB 0.0 L=0.0 H=0.2 41553-1 LOINC #NRB 0.000 L=0.000 H=0.012 22804-2 LOINC MANUAL DIFF NOT INDICATED RBC MORPH NOT INDICATED BB ABO AND RH TYPE - Collect Date/Time: 04/20/2024 07:13 [facility] ID: [id number] [address] [place], [place], [phone] LOINC: 99781-9 Test Value Unit Reference Range Code Code System Flag ABO TYPE O 883-9 LOINC RH TYPE POSITIVE Social History Type Status Start Date End Date Code Code Syst em Smoking History Unknown if ever smoked [id number] Sex Female Medications Medication Start Date End Date Route Frequency Dose Code Code System Medication Instructions Home Meds OXcarbazepine 150MG Oral Tablet 10/28/2022 Unknown ORAL TWICE A DAY 150 MILLIGRAMS 703695 RxNorm TAKE 150 MILLIGRAMS ORAL TWICE A DAY oxyCODONE HCl 5MG Oral Tablet 10/28/2022 Unknown ORAL NEEDED EVERY 6 HOURS 5 MILLIGRAMS 0353162 RxNorm TAKE 5 MILLIGRAMS ORAL NEEDED EVERY 6 HOURS Acetaminophen 325MG Oral Tablet 12/04/2022 Unknown ORAL NEEDED EVERY 4 HOURS 650 MILLIGRAMS 113783 RxNorm TAKE 650 MILLIGRAMS ORAL NEEDED EVERY 4 HOURS Atorvastatin Calcium 40MG Oral Tablet 12/04/2022 Unknown ORAL AT BEDTIME 40 MILLIGRAMS 282058 RxNorm TAKE 40 MILLIGRAMS ORAL AT BEDTIME Bisacodyl 10MG Rectal Suppository 12/04/2022 Unknown RECTAL NEEDED DAILY 10 MILLIGRAMS 104588 RxNorm INSERT 10 MILLIGRAMS RECTAL NEEDED DAILY Budesonide 0.5MG/2ML Inhalation Suspension 12/04/2022 Unknown NEBULIZ ER RESP DAILY 0.5 MILLIGRAMS 838539 RxNorm 0.5 MILLIGRAMS NEBULIZER RESP DAILY Cetirizine HCl 10MG Oral Tablet 12/04/2022 Unknown ORAL ONCE A DAY 10 MILLIGRAMS 9067323 RxNorm TAKE 10 MILLIGRAMS ORAL ONCE A DAY Ferrous Sulfate 325MG Oral Tablet 12/04/2022 Unknown ORAL EVERY OTHER DAY 325 MILLIGRAMS 352561 RxNorm TAKE 325 MILLIGRAMS ORAL EVERY OTHER DAY Furosemide 40MG Oral Tablet 12/04/2022 Unknown ORAL ONCE A DAY 40 MILLIGRAMS 601181 RxNorm TAKE 40 MILLIGRAMS ORAL ONCE A DAY Gabapentin 300MG Oral Capsule 12/04/2022 Unknown ORAL THREE TIMES A DAY 300 MILLIGRAMS 654411 RxNorm TAKE 300 MILLIGRAMS ORAL THREE TIMES A DAY Ipratropium [place] rol Sulfate 0.5MG/3ML-3MG/ 3ML Inhalation Solution 12/04/2022 Unknown NEBULIZ ER NEEDED EVERY 2 HOURS 1 unit(s) 7696215 RxNorm 1 EACH NEBULIZER NEEDED EVERY 2 HOURS Melatonin 5 MG Oral Tablet 12/04/2022 Unknown ORAL AT BEDTIME 5 MG RxNorm TAKE 5 MG ORAL AT BEDTIME Milk Of Magnesia 2400MG/30ML Oral Suspension 12/04/2022 Unknown ORAL PRN Q72H 30 mL 652030 RxNorm TAKE 30 m L ORAL PRN Q72H Oxymetazoline HCl 0.05% Nasal [place] 12/04/2022 Unknown NOSTRIL BOTH NEEDED EVERY 12 HOURS 2 unit(s) 1085386 RxNorm SPRAY IN 2 EACH NOSTRIL BOTH NEEDED EVERY 12 HOURS Polyethylene Glycol 3350 17 GM/1 Packet Oral Packet 12/04/2022 Unknown ORAL ONCE A DAY 17 GRAM 588712 RxNorm TAKE 17 GRAM ORAL ONCE A DAY Sennosides 8.6MG Oral Tablet 12/04/2022 Unknown ORAL TWICE A DAY 17.2 MILLIGRAMS 110510 RxNorm TAKE 17.2 MILLIGRAMS ORAL TWICE A DAY Sertraline HCl 100MG Oral Tablet 12/04/2022 Unknown ORAL ONCE A DAY 200 MILLIGRAMS 363267 RxNorm TAKE 200 MILLIGRAMS ORAL ONCE A DAY Sodium Chloride Nasal Mist 0.65% Nasal [place] 12/04/2022 Unknown NOSTRIL BOTH TWICE A DAY 1 unit(s) RxNorm SPRAY IN 1 EACH NOSTRIL BOTH TWICE A DAY Xarelto 20MG Oral Tablet 12/04/2022 Unknown ORAL ONCE A DAY 20 MILLIGRAMS 1166065 RxNorm TAKE 20 MILLIGRAMS ORAL ONCE A DAY budesonide-for moterol fumarate 80MCG-4.5MCG/1 Actuat Inhalation Aerosol Liquid 12/04/2022 Unknown INHALAT ION TWICE A DAY 2 unit(s) 4522915 RxNorm 2 EACH INHALATION TWICE A DAY levETIRAcetam 500MG Oral Tablet 12/04/2022 Unknown ORAL TWICE A DAY 500 MILLIGRAMS 119134 RxNorm TAKE 500 MILLIGRAMS ORAL TWICE A DAY Protonix 40 MG Oral Tablet, Delayed Release 12/04/2022 Unknown BY MOUTH 1 TABLET 582745 RxNorm TAKE 1 TABLET BY MOUTH Assessment [...] Syste m Transfusion, blood or blood components 04/20/2024 complete d 99328 CPT Problems Problem Start Date Resolved Date Status Code Code System METABOLIC ENCEPHALOPATHY active 59836 000 SNOMED-CT METABOLIC ALKALOSIS active 5372324 SNOMED-CT COPD WITH EXACERBATION active 4800984 07 SNOMED-CT BACTEREMIA CAUSED BY GRAM-POSITIVE BACTERIA active 809381075097 SNOME D-CT UTI active 91329940 SNOMED-CT DEHYDRATION active 23765461 SNOMED-C T HYPOMAGNESEMIA active 579551300 SNOME D-CT EPILEPSY active 11679110 SNOMED-CT Allergies and Adverse Reactions Allergy Substance Reaction Severity Start Date Concern Status Co de Code System PENICILLIN Active Plan of Treatment Song Follow Up Visit 09/22/2023 Encounters Encounter Diagnosis Start Date Code Code Sys tem Gastrointestinal hemorrhage, unspecified 04/20/2024 SNOMED-CT Personal Care Team Section Performer Name Performer Role Active Date Inactive MICHEAL Krishnamurthy PCP - Primary care physician 2022-09-24 2023-06-03 JACINTA CUNNINGHAM PCP - Primary care physician 2023-07-14
--- OUTSIDE RECORDS SUMMARY | 2025-09-02 10:28 | XMS_ITS | Patient Health Record ---
Author Organization 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 Name Role Phone Anastacio Mehta Primary Care Provider Alex Salazar Unavailable [phone] Allergies Allergen (clinical drug ingredient) Drug/Non Drug Allergy documented on EMR Reaction Allergy Type Onset Date Status morphine Morphine Sulfate Unknown Drug Allergy Active Penicillin Unknown Drug Allergy Active Codeine Unknown Drug Allergy Active Reason For Referral No Information Medications Medication SIG (Take, Route, Frequency, Duration) Notes Start Date End Date Status Sertraline HCl 100 MG Tablet 1 tablet Or ally Twice a day Active traMADol HCl 50 MG Tablet 2 tablet as ne eded Orally Three times a day Active OLANZapine 10 MG Tablet 1 tablet Orally Once a day Active Pramipexole Dihydrochloride 0.5 MG Tablet 1 tablet before bedtime Orally Twice a day Active Lisinopril 20 MG Tablet 1 tablet Orally Twice a day Active Gabapentin 300 MG Capsule 1 capsule Oral ly Three times a day Active Iron 28 MG Tablet 1 tablet Orally Once a day Active Ambien 10 MG Tablet 1 tablet at bedtime as needed Orally Once a day Active Biotin 5000 5 MG Capsule 1 capsule Orall y Once a day Active traZODone HCl 300 MG Tablet 0.5 tablet a t bedtime as needed Orally At bedtime Active Problems Problem Type SNOMED Code ICD Code Onset Dates Problem Status W/U Status Risk Notes Problem Essential hypertension (71207806) Essential (primary) hypertension (I10) Active confirmed Problem Chronic kidney disease stage 3 (880193953) Chronic kidney disease, stage 3 (moderate) (N18.3) Active confirmed Problem 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) Type 2 diabetes mellitus with diabetic chronic kidney disease (E11.22) Active confirmed Problem Diabetic renal disease (706379429) Type 2 diabetes mellitus with other diabetic kidney complication (E11.29) Active confirmed Problem Morbid obesity (751322587) Morbid (severe) obesity due to excess calories (E66.01) Active confirmed Problem Proteinuria (85699226) Proteinuria, unspecified (R80.9) Active confirmed Plan Of Treatment Future Test Test Name Order Date Urinalysis, Routine 10/26/2016 PTH, Intact 10/26/2016 RENAL PANEL 10/26/2016 Vitamin D, 25-Hydroxy 10/26/2016 URINE PROTEIN W/CREAT RATIO 10/26/2016 Insurance Providers Payer Name Payer Address Payer Phone Subscriber Number Group Number Insured Name Patient Relationship to Insured Coverage Start Date Coverage End Date [place] [address] [place] [address] [phone] [id number] Cathy Greene Self - patient is the insured Medical (General) History Medical History History ICD Code CKD Stage III Hypertension Anemia Diabetes Mellitus Peripheral Neuroopathy Fibromyalgia Obesity Morbid Osteoarthritis Knee Restless Leg Syndrome Surgical History Surgery Date(Month/Year) Laparoscopic Hysterectomy
--- OUTSIDE RECORDS SUMMARY | 2025-09-02 10:28 | XMS_ITS ---
Author Organization Unknown Address [address] [place] [phone] Phone Care Team Providers Care Manager Energy Name Role Phone OCTAVIO Mcguire Attending Unavailable [...] CBC W/ DIFF - Collect Date/T pili: 07/07/2023 06:55 [facility] ID: [id number] [address] [place] [address], [phone] LOINC: 80470-6 Test Value Unit Reference Range Code Code System Flag WBC 4.9 10^3uL L=4.8 H=10.8 RBC 2.77 10^6uL L=4.20 H=5.40 L HEMOGLOBIN 7.6 g/dL L=12.0 H=16.0 718-7 LOINC LL CALLED TO: KAY Rojo RN AT: 0747 07/07/23 BY: SDK HEMATOCRIT 25.8 VOL% L=37.0 H=47.0 4544-3 LOINC L MCV 93.1 fL L=81.0 H=99.0 MCH 27.4 pg L=27.0 H=32.0 MCHC 29.5 g/dL L=32.0 H=36.0 L PLATELETS 135 10^3uL L=100 H=400 30556-4 LOINC RDW 14.2 % L=11.7 H=15.5 %GRAN 76.3 % L=40.0 H=70.0 90041-7 LOINC H %LYMPH 17.6 % L=20.0 H=45.0 736-9 LOINC L %MONO 5.9 % L=2.0 H=10.0 22148-9 LOINC %EOS 0.0 % L=0.0 H=6.0 713-8 LOINC %BASO 0.0 % L=0.0 H=3.0 706-2 LOINC #NEUT 3.7 10^3uL L=1.9 H=7.6 52924-5 LOINC #LYMPH 0.9 10^3uL L=0.9 H=4.9 03647-9 LOINC #MONO 0.3 10^3uL L=0.1 H=0.9 13530-1 LOINC #EOS 0.0 10^3uL L=0.0 H=0.6 712-0 LOINC #BASO 0.00 10^3uL L=0.00 H=0.10 07604-3 LOINC #IM GRANS 0.0 10^3uL L=0.0 H=7.0 57210-2 LOINC %IM GRANS 0.2 % L=0.0 H=5.0 42452-2 LOINC %NRB 0.0 L=0.0 H=0.2 43613-5 LOINC #NRB 0.000 L=0.000 H=0.012 14719-0 LOINC MANUAL DIFF NOT INDICATED RBC MORPH NOT INDICATED Social History Type Status Start Date End Date Code Code Syst em Smoking History Unknown if ever smoked 2 [id number] [facility] Sex Female Medications Medication Start Date End Date Route Frequency Dose Code Code System Medication Instructions Home Meds OXcarbazepine 150MG Oral Tablet 10/28/2022 Unknown ORAL TWICE A DAY 150 MILLIGRAMS 322016 RxNorm TAKE 150 MILLIGRAMS ORAL TWICE A DAY oxyCODONE HCl 5MG Oral Tablet 10/28/2022 Unknown ORAL NEEDED EVERY 6 HOURS 5 MILLIGRAMS 3359337 RxNorm TAKE 5 MILLIGRAMS ORAL NEEDED EVERY 6 HOURS Acetaminophen 325MG Oral Tablet 12/04/2022 Unknown ORAL NEEDED EVERY 4 HOURS 650 MILLIGRAMS 002294 RxNorm TAKE 650 MILLIGRAMS ORAL NEEDED EVERY 4 HOURS Atorvastatin Calcium 40MG Oral Tablet 12/04/2022 Unknown ORAL AT BEDTIME 40 MILLIGRAMS 951194 RxNorm TAKE 40 MILLIGRAMS ORAL AT BEDTIME Bisacodyl 10MG Rectal Suppository 12/04/2022 Unknown RECTAL NEEDED DAILY 10 MILLIGRAMS 241526 RxNorm INSERT 10 MILLIGRAMS RECTAL NEEDED DAILY Budesonide 0.5MG/2ML Inhalation Suspension 12/04/2022 Unknown NEBULIZ ER RESP DAILY 0.5 MILLIGRAMS 787791 RxNorm 0.5 MILLIGRAMS NEBULIZER RESP DAILY Cetirizine HCl 10MG Oral Tablet 12/04/2022 Unknown ORAL ONCE A DAY 10 MILLIGRAMS 4063381 RxNorm TAKE 10 MILLIGRAMS ORAL ONCE A DAY Ferrous Sulfate 325MG Oral Tablet 12/04/2022 Unknown ORAL EVERY OTHER DAY 325 MILLIGRAMS 722273 RxNorm TAKE 325 MILLIGRAMS ORAL EVERY OTHER DAY Furosemide 40MG Oral Tablet 12/04/2022 Unknown ORAL ONCE A DAY 40 MILLIGRAMS 888958 RxNorm TAKE 40 MILLIGRAMS ORAL ONCE A DAY Gabapentin 300MG Oral Capsule 12/04/2022 Unknown ORAL THREE TIMES A DAY 300 MILLIGRAMS 181146 RxNorm TAKE 300 MILLIGRAMS ORAL THREE TIMES A DAY Ipratropium [place] rol Sulfate 0.5MG/3ML-3MG/ 3ML Inhalation Solution 12/04/2022 Unknown NEBULIZ ER NEEDED EVERY 2 HOURS 1 unit(s) 9892075 RxNorm 1 EACH NEBULIZER NEEDED EVERY 2 HOURS Melatonin 5 MG Oral Tablet 12/04/2022 Unknown ORAL AT BEDTIME 5 MG RxNorm TAKE 5 MG ORAL AT BEDTIME Milk Of Magnesia 2400MG/30ML Oral Suspension 12/04/2022 Unknown ORAL PRN Q72H 30 mL 718363 RxNorm TAKE 30 m L ORAL PRN Q72H Oxymetazoline HCl 0.05% Nasal [place] 12/04/2022 Unknown NOSTRIL BOTH NEEDED EVERY 12 HOURS 2 unit(s) 8306014 RxNorm SPRAY IN 2 EACH NOSTRIL BOTH NEEDED EVERY 12 HOURS Polyethylene Glycol 3350 17 GM/1 Packet Oral Packet 12/04/2022 Unknown ORAL ONCE A DAY 17 GRAM 966781 RxNorm TAKE 17 GRAM ORAL ONCE A DAY Sennosides 8.6MG Oral Tablet 12/04/2022 Unknown ORAL TWICE A DAY 17.2 MILLIGRAMS 378610 RxNorm TAKE 17.2 MILLIGRAMS ORAL TWICE A DAY Sertraline HCl 100MG Oral Tablet 12/04/2022 Unknown ORAL ONCE A DAY 200 MILLIGRAMS 123748 RxNorm TAKE 200 MILLIGRAMS ORAL ONCE A DAY Sodium Chloride Nasal Mist 0.65% Nasal [place] 12/04/2022 Unknown NOSTRIL BOTH TWICE A DAY 1 unit(s) RxNorm SPRAY IN 1 EACH NOSTRIL BOTH TWICE A DAY Xarelto 20MG Oral Tablet 12/04/2022 Unknown ORAL ONCE A DAY 20 MILLIGRAMS 8242591 RxNorm TAKE 20 MILLIGRAMS ORAL ONCE A DAY budesonide-for moterol fumarate 80MCG-4.5MCG/1 Actuat Inhalation Aerosol Liquid 12/04/2022 Unknown INHALAT ION TWICE A DAY 2 unit(s) 7703843 RxNorm 2 EACH INHALATION TWICE A DAY levETIRAcetam 500MG Oral Tablet 12/04/2022 Unknown ORAL TWICE A DAY 500 MILLIGRAMS 411312 RxNorm TAKE 500 MILLIGRAMS ORAL TWICE A DAY Protonix 40 MG Oral Tablet, Delayed Release 12/04/2022 Unknown BY MOUTH 1 TABLET 260533 RxNorm TAKE 1 TABLET BY MOUTH Assessment [...] Status Code Code System METABOLIC ENCEPHALOPATHY active 72492 000 SNOMED-CT METABOLIC ALKALOSIS active 9623343 SNOMED-CT COPD WITH EXACERBATION active 5004214 07 SNOMED-CT BACTEREMIA CAUSED BY GRAM-POSITIVE BACTERIA active 260271170102 SNOME D-CT UTI active 35590474 SNOMED-CT DEHYDRATION active 93546965 SNOMED-C T HYPOMAGNESEMIA active 433221732 SNOME D-CT EPILEPSY active 13404817 SNOMED-CT Allergies and Adverse Reactions Allergy Substance Reaction Severity Start Date Concern Status Co de Code System PENICILLIN Active Plan of Treatment Song Follow Up Visit 09/22/2023 Encounters Encounter Diagnosis Start Date Code Code Sys tem Anemia, unspecified 07/07/2023 SNOMED-C T Personal Care Team Section Performer Name Performer Role Active Date Inactive MICHEAL Krishnamurthy PCP - Primary care physician 2022-09-24 2023-06-03 JACINTA CUNNINGHAM PCP - Primary care physician 2023-07-14
[2025-09-02] MEDS: ONDANSETRON INJ 4 MG/2 ML VIAL IV PUSH (10:57)
[2025-09-02] MEDS: oxyCODONE HCL (*CRX) 5 MG TAB IR PO (10:58)
[2025-09-02] MEDS: CYCLOBENZAPRINE HCL 10 MG TABLET PO (12:09)
== END 2025-09-02 12:47 ==
PROVIDERS: Emergency Provider Student in an Organized Health Care Education/Training Program
DX: S32.000A Wedge compression fracture of unspecified lumbar vertebra, initial encounter for closed fracture (principal); E03.9 Hypothyroidism, unspecified; M06.9 Rheumatoid arthritis, unspecified; I48.0 Paroxysmal atrial fibrillation; J44.9 Chronic obstructive pulmonary disease, unspecified; Z99.2 Dependence on renal dialysis; Z87.891 Personal history of nicotine dependence; E11.22 Type 2 diabetes mellitus with diabetic chronic kidney disease; I13.2 Hypertensive heart and chronic kidney disease with heart failure and with stage 5 chronic kidney disease, or end stage renal disease; I50.9 Heart failure, unspecified; N18.6 End stage renal disease; W19.XXXA Unspecified fall, initial encounter
CPT/HCPCS: 96374; 99284; A9270; J2405